=== PATIENT | female | born 1995 | race Caucasian/White ===

== ENCOUNTER 2022-07-28 11:02 | Outpatient (OUT) | payer MEDICAID, SELFPAY ==
[2022-07-28 11:29] LABS: Glucose 1 Hour 142 mg/dL
== END 2022-07-28 11:03 ==
LOC: LAB 11:05
PROVIDERS: PCP Obstetrics & Gynecology; Visit Provider Obstetrics & Gynecology
DX: Z34.90 Encounter for supervision of normal pregnancy, unspecified, unspecified trimester (principal)
CPT/HCPCS: 36415; 82950

== ENCOUNTER 2022-08-06 17:02 | Observation (INO) | payer MEDICAID, SELFPAY ==
[2022-08-06 17:26] VITALS: BP 94/53; PULSE 88
[2022-08-06 17:46] LABS: Bilirubin Urine NEGATIVE (NEGATIVE); Blood Urine NEGATIVE (NEGATIVE); Clarity Urine CLEAR (CLEAR); Color Urine YELLOW (YELLOW); Glucose Urine UA NEGATIVE (NEGATIVE); Ketones Urine NEGATIVE (NEGATIVE); Leukocyte Esterase Urine NEGATIVE (NEGATIVE); Nitrite Urine NEGATIVE (NEGATIVE); Protein Urine NEGATIVE (NEG/TRACE); Specific Gravity Urine 1.025 (1.005-1.025); Urobilinogen Urine 0.2 EU/dL (0.2-1.0); pH Urine 6.5 (5.0-9.0)
[2022-08-06 17:48] LABS: Urine Microscopic Indicated NO
--- NOTE | 2022-08-06 18:15 | PC.NURSE ---
notified of assessment, history, sve, fht and complaints. reviewed ua. dc order recieved.
--- NOTE | 2022-08-06 18:31 | PC.NURSE ---
reviewed dc instructions with pt. pt instructed to push oral hydration and rest this weekend and call or return with concerns.
== END 2022-08-06 18:33 | disposition home or self-care (01) ==
PROVIDERS: Admitting Provider Obstetrics & Gynecology; PCP Obstetrics & Gynecology; Visit Provider Obstetrics & Gynecology
DX: O26.893 Other specified pregnancy related conditions, third trimester (principal); R51.9 Headache, unspecified; R11.0 Nausea; R10.9 Unspecified abdominal pain; Z3A.00 Weeks of gestation of pregnancy not specified
CPT/HCPCS: 59025; 81003; G0378; G0379

== ENCOUNTER 2022-08-10 07:25 | Outpatient (OUT) | payer MEDICAID, SELFPAY ==
[2022-08-10 07:47] LABS: Glucose Fasting 106 mg/dL (74-106)
[2022-08-10 09:29] LABS: Glucose 1 Hour 199 mg/dL
[2022-08-10 10:33] LABS: Glucose 2 Hour 135 mg/dL
[2022-08-10 11:35] LABS: Glucose 3 Hour 125 mg/dL
== END 2022-08-10 07:26 ==
PROVIDERS: PCP Obstetrics & Gynecology; Visit Provider Obstetrics & Gynecology
DX: R73.09 Other abnormal glucose (principal)
CPT/HCPCS: 36415; 82951; 82952

== ENCOUNTER 2022-09-01 07:11 | Outpatient (OUT) | payer MEDICAID, SELFPAY | END 2022-09-01 07:12 | disposition home or self-care (01) | LOC: DE 07:12 | PROVIDERS: PCP Obstetrics & Gynecology; Visit Provider Obstetrics & Gynecology | DX: O24.419 Gestational diabetes mellitus in pregnancy, unspecified control (principal) | CPT/HCPCS: G0108 ==

== ENCOUNTER 2022-09-05 08:25 | Outpatient (OUT) | payer MEDICAID, SELFPAY ==
[2022-09-05 08:53] VITALS: BP 113/65; PULSE 88
[2022-09-05 09:31] LABS: Bilirubin Urine NEGATIVE (NEGATIVE); Blood Urine NEGATIVE (NEGATIVE); Clarity Urine CLEAR (CLEAR); Color Urine YELLOW (YELLOW); Glucose Urine UA NEGATIVE (NEGATIVE); Ketones Urine NEGATIVE (NEGATIVE); Leukocyte Esterase Urine TRACE (NEGATIVE); Nitrite Urine NEGATIVE (NEGATIVE); Protein Urine TRACE mg/dL (NEG/TRACE); Specific Gravity Urine >=1.030 (1.005-1.025); Urobilinogen Urine 0.2 EU/dL (0.2-1.0); pH Urine 6.5 (5.0-9.0)
[2022-09-05 09:32] LABS: Urine Microscopic Indicated YES
[2022-09-05 09:38] LABS: Bacteria Urine NONE SEEN #/HPF (NONE SEEN); Cast Seen? NONE SEEN #/LPF (NONE SEEN); Crystals Seen? None Seen #/HPF (None Seen); Mucus Urine NONE SEEN (NONE SEEN); RBC Urine NONE SEEN #/HPF (0-2); Squamous Epithelial Cell Urine MANY #/LPF (NONE/RARE); Urine Culture Indicated NO; WBC Urine 0-2 #/HPF (NONE SEEN)
== END 2022-09-05 10:58 | disposition home or self-care (01) ==
LOC: FBCO 08:31 → FBC 08:34
PROVIDERS: Visit Provider Obstetrics & Gynecology
DX: O26.893 Other specified pregnancy related conditions, third trimester (principal); O24.419 Gestational diabetes mellitus in pregnancy, unspecified control; Z3A.30 30 weeks gestation of pregnancy; R10.9 Unspecified abdominal pain
CPT/HCPCS: 59025; 81003; 81015

== ENCOUNTER 2022-09-22 08:07 | Outpatient (OUT) | payer MEDICAID, SELFPAY ==
--- NOTE | 2022-09-22 08:09 | US_ITS ---
[address] [address] Patient Name: BRITTNEE SMITH MRN: [id number] date: 1995 Sex: F Assigned Patient Location: [facility] Current Patient Location: Accession/Order Number: [id number] Exam Date: 09/22/2022 08:15 Report Date: 09/22/2022 20:56 At the request of: IVY RUVALCABA Procedure: US OB BPP w non-stress EXAMINATION: US OB BPP w non-stress HISTORY: GESTATIONAL DIABETES Z86.32 COMPARISON: No relevant comparison available. TECHNIQUE: Ultrasound biophysical profile was performed in the radiology department. FINDINGS: BREATHING MOVEMENTS: 2.0 GROSS BODY MOVEMENTS: 2.0 TONE: 2.0 QUALITATIVE AMNIOTIC FLUID VOLUME: 2.0 PRESENTATION: CEPHALIC HEART RATE: 152.5 bpm H.B./min AMNIOTIC FLUID VOLUME: 18.5 cm cm GESTATIONAL AGE: 32 weeks 6 days CONCLUSION: Total biophysical profile score: 8.0 Electronically authenticated by: JENN REYEZ Date: 09/22/2022 20:56
[2022-09-22 08:48] VITALS: BP 128/71; PULSE 92
== END 2022-09-22 09:53 | disposition home or self-care (01) ==
LOC: US 08:07 → FBC 08:08
PROVIDERS: Visit Provider Obstetrics & Gynecology
DX: Z86.32 Personal history of gestational diabetes (principal)
CPT/HCPCS: 59025; 76818

== ENCOUNTER 2022-09-26 19:19 | Outpatient (OUT) | payer MEDICAID, SELFPAY ==
[2022-09-26 19:29] VITALS: BP 122/56; PULSE 96; TEMP 35.6
== END 2022-09-26 19:51 | disposition home or self-care (01) ==
LOC: FBCO 19:23 → FBC 19:28
PROVIDERS: Visit Provider Obstetrics & Gynecology
DX: O26.90 Pregnancy related conditions, unspecified, unspecified trimester (principal)
CPT/HCPCS: 59025

== ENCOUNTER 2022-09-29 09:35 | Outpatient (OUT) | payer MEDICAID, SELFPAY ==
[2022-09-29 09:50] VITALS: BP 80/42; PULSE 85
[2022-09-29 09:51] VITALS: BP 104/54; PULSE 89
--- NOTE | 2022-09-29 10:01 | US_ITS ---
[address] [address] Patient Name: BRITTNEE SMITH MRN: [id number] date: 1995 Sex: F Assigned Patient Location: US Current Patient Location: US Accession/Order Number: [id number] Exam Date: 09/29/2022 10:20 Report Date: 09/29/2022 18:45 At the request of: IVY RUVALCABA Procedure: US OB BPP w non-stress EXAMINATION: US OB BPP w non-stress HISTORY: HX GESTATIONAL DIABETES Z86.32 COMPARISON: Ultrasound OB biophysical 09/22/2022 TECHNIQUE: Ultrasound biophysical profile was performed in the radiology department. BREATHING MOVEMENTS: 2.0 GROSS BODY MOVEMENTS: 2.0 TONE: 2.0 QUALITATIVE AMNIOTIC FLUID VOLUME: 2.0 PRESENTATION: CEPHALIC HEART RATE: 142.1 bpm bpm. AMNIOTIC FLUID VOLUME: 15.1 cm GESTATIONAL AGE: 33 weeks 6 days CONCLUSION: Total biophysical profile score 8.0. Electronically authenticated by: CHRISTIANNE ULLOA Date: 09/29/2022 18:45
== END 2022-09-29 10:47 | disposition home or self-care (01) ==
LOC: US 09:35 → FBC 09:36
PROVIDERS: Visit Provider Obstetrics & Gynecology
DX: Z86.32 Personal history of gestational diabetes (principal)
CPT/HCPCS: 76818

== ENCOUNTER 2022-10-03 19:12 | Outpatient (OUT) | payer MEDICAID, SELFPAY | END 2022-10-03 20:00 | disposition home or self-care (01) | LOC: FBCO 19:13 → FBC 19:22 | PROVIDERS: Visit Provider Obstetrics & Gynecology | DX: Z86.32 Personal history of gestational diabetes (principal) | CPT/HCPCS: 59025 ==

== ENCOUNTER 2022-10-06 08:25 | Outpatient (OUT) | payer MEDICAID, SELFPAY ==
--- NOTE | 2022-10-06 08:27 | US_ITS ---
[address] [address] Patient Name: BRITTNEE SMITH MRN: [id number] date: 1995 Sex: F Assigned Patient Location: [facility] Current Patient Location: Accession/Order Number: [id number] Exam Date: 10/06/2022 08:30 Report Date: 10/06/2022 15:54 At the request of: IVY RUVALCABA Procedure: US OB BPP w non-stress EXAMINATION: US OB BPP w non-stress HISTORY: History of gestational diabetes Z86.32 COMPARISON: Ultrasound biophysical 09/29/2022 TECHNIQUE: Ultrasound biophysical profile was performed in the radiology department. BREATHING MOVEMENTS: 2.0 GROSS BODY MOVEMENTS: 2.0 TONE: 2.0 QUALITATIVE AMNIOTIC FLUID VOLUME: 2.0 PRESENTATION: CEPHALIC HEART RATE: 150.0 bpm bpm. AMNIOTIC FLUID VOLUME: 13.7 cm GESTATIONAL AGE: 34 weeks 6 days CONCLUSION: Total biophysical profile score 8.0. Electronically authenticated by: CHRISTIANNE ULLOA Date: 10/06/2022 15:54
[2022-10-06 09:18] VITALS: BP 105/59; PULSE 72
== END 2022-10-06 10:54 | disposition home or self-care (01) ==
LOC: US 08:26 → FBC 08:36
PROVIDERS: Visit Provider Obstetrics & Gynecology
DX: O24.419 Gestational diabetes mellitus in pregnancy, unspecified control (principal); Z3A.00 Weeks of gestation of pregnancy not specified
CPT/HCPCS: 59025; 76818

== ENCOUNTER 2022-10-10 19:09 | Outpatient (OUT) | payer MEDICAID, SELFPAY ==
[2022-10-10 19:32] VITALS: BP 122/65; PULSE 100; TEMP 35.4
== END 2022-10-10 20:05 | disposition home or self-care (01) ==
LOC: FBCO 19:11 → FBC 19:14
PROVIDERS: Visit Provider Obstetrics & Gynecology
DX: O24.419 Gestational diabetes mellitus in pregnancy, unspecified control (principal); Z3A.00 Weeks of gestation of pregnancy not specified
CPT/HCPCS: 59025

== ENCOUNTER 2022-10-11 13:43 | Outpatient (OUT) | payer MEDICAID, SELFPAY ==
--- NOTE | 2022-10-11 | US_ITS ---
[address] [address] Patient Name: BRITTNEE SMITH MRN: [id number] date: 1995 Sex: F Assigned Patient Location: US Current Patient Location: Accession/Order Number: [id number] Exam Date: 10/11/2022 13:47 Report Date: 10/11/2022 15:46 At the request of: IVY RUVALCABA Procedure: US OB growth EXAMINATION: US OB growth HISTORY: LGA COMPARISON: Ultrasound anatomy 06/27/2022 FINDINGS: Heart Rate: 156.0 bpm Number: 1.0 Position: Cephalic Amniotic Fluid Volume: 15.2 cm Maximum Vertical Pocket: 6.2 cm BIOMETRY: BPD: 9.2 cm cm; 37 weeks 3 days; 93% HC: 33.2 cmcm; 37 weeks 6 days; 74% AC: 33.3 cm cm; 37 weeks 1 days; 92% FL: 7.2 cm cm; 36 weeks 6 days; 78% EFW: 3145.3 grams; 89% FL/AC: 21.7 FL/BPD: 78.3 HC/AC: 1.0 GESTATIONAL AGE: Age by EDC: 35 weeks 4 days GARRETT by EDC: 11/11/2022 Age by US: 37 weeks 2 days GARRETT by US: 10/30/2022 US/US OB growth IMPRESSION: 1. Single live intrauterine with growth detailed above. Electronically authenticated by: CHRISTIANNE ULLOA Date: 10/11/2022 15:46
== END 2022-10-11 13:44 | disposition home or self-care (01) ==
LOC: US 13:44
PROVIDERS: Visit Provider Obstetrics & Gynecology
DX: O36.63X0 Maternal care for excessive fetal growth, third trimester, not applicable or unspecified (principal); Z3A.35 35 weeks gestation of pregnancy
CPT/HCPCS: 76816

== ENCOUNTER 2022-10-13 13:13 | Outpatient (OUT) | payer MEDICAID, SELFPAY ==
--- NOTE | 2022-10-13 13:16 | US_ITS ---
[address] [address] Patient Name: BRITTNEE SMITH MRN: [id number] date: 1995 Sex: F Assigned Patient Location: [facility] Current Patient Location: Accession/Order Number: [id number] Exam Date: 10/13/2022 13:20 Report Date: 10/13/2022 15:34 At the request of: IVY RUVALCABA Procedure: US OB BPP w non-stress EXAMINATION: US OB BPP w non-stress HISTORY: History of gestational diabetes Z86.32 COMPARISON: Ultrasound biophysical 10/06/2022 TECHNIQUE: Ultrasound biophysical profile was performed in the radiology department. BREATHING MOVEMENTS: 2.0 GROSS BODY MOVEMENTS: 2.0 TONE: 2.0 QUALITATIVE AMNIOTIC FLUID VOLUME: 2.0 PRESENTATION: Cephalic HEART RATE: 154.3 bpm bpm. AMNIOTIC FLUID VOLUME: 15.7 cm GESTATIONAL AGE: 35 weeks 6 days CONCLUSION: Total biophysical profile score 8.0. Electronically authenticated by: CHRISTIANNE ULLOA Date: 10/13/2022 15:34
[2022-10-13 13:38] VITALS: BP 130/64; PULSE 103
== END 2022-10-13 13:45 | disposition home or self-care (01) ==
LOC: US 13:14 → FBC 13:14
PROVIDERS: Visit Provider Obstetrics & Gynecology
DX: O24.419 Gestational diabetes mellitus in pregnancy, unspecified control (principal); Z3A.35 35 weeks gestation of pregnancy
CPT/HCPCS: 76818

== ENCOUNTER 2022-10-17 19:03 | Outpatient (OUT) | payer MEDICAID, SELFPAY ==
[2022-10-17 19:16] VITALS: BP 128/59; PULSE 97
== END 2022-10-17 19:49 | disposition home or self-care (01) ==
LOC: FBCO 19:06 → FBC 19:07
PROVIDERS: Visit Provider Obstetrics & Gynecology
DX: O24.419 Gestational diabetes mellitus in pregnancy, unspecified control (principal); Z3A.00 Weeks of gestation of pregnancy not specified
CPT/HCPCS: 59025

== ENCOUNTER 2022-10-20 08:05 | Outpatient (OUT) | payer MEDICAID, SELFPAY ==
--- NOTE | 2022-10-20 08:09 | US_ITS ---
[address] [address] Patient Name: BRITTNEE SMITH MRN: [facility]:[id number] date: 1995 Sex: F Assigned Patient Location: [facility] Current Patient Location: [facility] Accession/Order Number: [id number] Exam Date: 10/20/2022 08:10 Report Date: 10/20/2022 15:14 At the request of: IVY RUVALCABA Procedure: US OB BPP w non-stress EXAMINATION: US OB BPP w non-stress HISTORY: History of gestational diabetes Z86.32 COMPARISON: Ultrasound OB biophysical profile 10/13/2022 TECHNIQUE: Ultrasound biophysical profile was performed in the radiology department. BREATHING MOVEMENTS: 2.0 GROSS BODY MOVEMENTS: 2.0 TONE: 2.0 QUALITATIVE AMNIOTIC FLUID VOLUME: 2.0 PRESENTATION: Cephalic HEART RATE: 156.1 bpm bpm. AMNIOTIC FLUID VOLUME: 10.6 cm GESTATIONAL AGE: 36 weeks 6 days CONCLUSION: Total biophysical profile score 8.0. Electronically authenticated by: CHRISTIANNE ULLOA Date: 10/20/2022 15:14
[2022-10-20 08:32] VITALS: BP 109/54; PULSE 95
== END 2022-10-20 09:06 | disposition home or self-care (01) ==
LOC: US 08:05 → FBC 08:06
PROVIDERS: Visit Provider Obstetrics & Gynecology
DX: O24.419 Gestational diabetes mellitus in pregnancy, unspecified control (principal); Z3A.36 36 weeks gestation of pregnancy
CPT/HCPCS: 76818

== ENCOUNTER 2022-10-21 09:08 | Outpatient (REF) | payer MEDICAID, SELFPAY | END 2022-10-21 09:09 | disposition home or self-care (01) | LOC: LAB 09:08 | PROVIDERS: Visit Provider Obstetrics & Gynecology | DX: Z34.93 Encounter for supervision of normal pregnancy, unspecified, third trimester (principal) | CPT/HCPCS: 87081 ==

== ENCOUNTER 2022-10-24 19:20 | Outpatient (OUT) | payer MEDICAID, SELFPAY ==
[2022-10-24 19:34] VITALS: BP 131/64; PULSE 96
== END 2022-10-24 20:00 | disposition home or self-care (01) ==
LOC: FBCO 19:22 → FBC 19:24
PROVIDERS: Visit Provider Obstetrics & Gynecology
DX: O24.419 Gestational diabetes mellitus in pregnancy, unspecified control (principal); Z3A.00 Weeks of gestation of pregnancy not specified
CPT/HCPCS: 59025

== ENCOUNTER 2022-10-27 08:06 | Outpatient (OUT) | payer MEDICAID, SELFPAY ==
--- NOTE | 2022-10-27 08:22 | US_ITS ---
[address] [address] Patient Name: BRITTNEE SMITH MRN: [id number] date: 1995 Sex: F Assigned Patient Location: [facility] Current Patient Location: Accession/Order Number: [id number] Exam Date: 10/27/2022 08:23 Report Date: 10/27/2022 22:18 At the request of: IVY RUVALCABA Procedure: US OB BPP w non-stress EXAMINATION: US OB BPP w non-stress HISTORY: History of gestational diabetes Z86.32 COMPARISON: Ultrasound OB biophysical 10/20/2022 TECHNIQUE: Ultrasound biophysical profile was performed in the radiology department. BREATHING MOVEMENTS: 2 GROSS BODY MOVEMENTS: 2 TONE: 2 QUALITATIVE AMNIOTIC FLUID VOLUME: 2 PRESENTATION: Cephalic HEART RATE: 157 bpm. AMNIOTIC FLUID VOLUME: 14.4 cm; normal range GESTATIONAL AGE: 37 weeks 6 days CONCLUSION: Total biophysical profile score 8. Electronically authenticated by: CHRISTIANNE ULLOA Date: 10/27/2022 22:18
--- NOTE | 2022-10-27 08:23 | US_ITS ---
[address] [address] Patient Name: BRITTNEE SMITH MRN: [id number] date: 1995 Sex: F Assigned Patient Location: [facility] Current Patient Location: Accession/Order Number: [id number] Exam Date: 10/27/2022 08:23 Report Date: 10/27/2022 22:17 At the request of: IVY RUVALCABA Procedure: US OB growth EXAMINATION: US OB growth HISTORY: Excessive growth affecting third trimester O36.6X0 COMPARISON: Ultrasound OB growth 10/11/2022 FINDINGS: Heart Rate: 157.0 bpm Number: 1.0 Position: CEPHALIC Amniotic Fluid Volume: 14.4 cm Maximum Vertical Pocket: 5.4 cm BIOMETRY: BPD: 9.7 cm cm; 39 weeks 4 days; 97% HC: 33.8 cmcm; 38 weeks 6 days; 54% AC: 36.3 cm cm; 40 weeks 2 days; >97% FL: 7.3 cm cm; 37 weeks 4 days; 45% EFW: 3787.5 grams; 92% FL/AC: 20.2 FL/BPD: 75.9 HC/AC: 0.9 GESTATIONAL AGE: Age by EDC: 37 weeks 6 days GARRETT by EDC: 11/11/2022 Age by US: 39 weeks 1 day GARRETT by US: 11/02/2022 US/US OB growth IMPRESSION: 1. Single live intrauterine with growth detailed above. 2. Abdominal circumference and biparietal diameter are 97th percentile or above. Electronically authenticated by: CHRISTIANNE ULLOA Date: 10/27/2022 22:17
[2022-10-27 08:55] VITALS: BP 128/74; PULSE 94; TEMP 35.8
== END 2022-10-27 09:26 | disposition home or self-care (01) ==
LOC: US 08:06 → FBC 08:07
PROVIDERS: Visit Provider Obstetrics & Gynecology
DX: O36.63X0 Maternal care for excessive fetal growth, third trimester, not applicable or unspecified (principal); Z3A.37 37 weeks gestation of pregnancy
CPT/HCPCS: 76816; 76818

== ENCOUNTER 2022-10-31 19:05 | Outpatient (OUT) | payer MEDICAID, SELFPAY ==
[2022-10-31 19:27] VITALS: TEMP 36.1
[2022-10-31 19:28] VITALS: BP 114/63; PULSE 98
== END 2022-10-31 19:52 | disposition home or self-care (01) ==
LOC: FBCO 19:05 → FBC 19:08
PROVIDERS: Visit Provider Obstetrics & Gynecology
DX: O24.419 Gestational diabetes mellitus in pregnancy, unspecified control (principal)
CPT/HCPCS: 59025

== ENCOUNTER 2022-11-03 23:33 | Inpatient (IN) | payer MEDICAID, SELFPAY ==
[2022-11-04] VITALS (60 sets, daily range): BP systolic 92–158; BP diastolic 55–98; PULSE 68–100; RESP 16–18; TEMP 36.1–37.4
[2022-11-04] MEDS: OXYTOCIN/0.9 % SODIUM CHLORIDE 10 UNITS/500 ML PLAST..BAG 6 UNIT IV (01:00)
[2022-11-04] MEDS: 0.9 % SODIUM CHLORIDE 1,000 ML 125 ML IV ×2 (01:01→08:59)
[2022-11-04 01:21] LABS: Hematocrit 34.2 % (36.0-48.0); Hemoglobin 11.1 g/dL (12.0-16.0); Mean Corpuscular HGB Conc 32.5 g/dL (29.9-35.2); Mean Corpuscular Hemoglobin 26.9 pg (26.7-34.0); Mean Corpuscular Volume 82.8 fL (81.0-99.0); Mean Platelet Volume 11.9 fL (9.5-13.5); Platelet Count 198 10^3/uL (150-450); Red Blood Count 4.13 10^6/uL (4.20-5.40); Red Cell Distribution Width 14.6 % (11.0-15.0); White Blood Count 14.2 10^3/uL (4.0-11.0)
[2022-11-04 01:36] LABS: Amphetamine Screen Urine NEGATIVE (NEGATIVE); Barbiturates Screen Urine NEGATIVE (NEGATIVE); Benzodiazepines Screen Urine NEGATIVE (NEGATIVE); Buprenorphine Screen Urine NEGATIVE (NEGATIVE); Cannabinoid Screen Urine NEGATIVE (NEGATIVE); Cocaine Screen Urine NEGATIVE (NEGATIVE); Methadone Screen Urine NEGATIVE (NEGATIVE); Methamphetamines Screen Urine NEGATIVE (NEGATIVE); Opiate Screen Urine NEGATIVE (NEGATIVE); Oxycodone Screen Urine NEGATIVE (NEGATIVE); Phencyclidine Screen Urine NEGATIVE (NEGATIVE); Tricyclic Antidepressant Urine NEGATIVE (NEGATIVE)
[2022-11-04] MEDS: LEVOTHYROXINE SODIUM 175 MCG TABLET PO (07:40)
[2022-11-04] MEDS: LEVOTHYROXINE SODIUM 100 MCG TABLET PO (07:40)
[2022-11-04] MEDS: ROPIVACAINE HCL/PF 400 MG/200 ML PREMIX 6 MG EPIDURAL (12:09)
[2022-11-04] MEDS: OXYTOCIN/0.9 % SODIUM CHLORIDE 10 UNITS/500 ML PLAST..BAG 60 UNIT IV (12:52)
[2022-11-04] MEDS: FENTANYL CITRATE/PF 100 MCG/2 ML VIAL EPIDURAL (12:54)
--- NOTE | 2022-11-04 14:39 | PM.OBPRCVD ---
Procedure Intrapartal events: None Induction method: per pitocin protocol Delivery augmentation: rupture of membranes and pitocin Delivery monitor: external FHT and external uterine Route of delivery: Laceration description: periurethral - 1st degree Delivery repair: Vicryl Estimated blood loss (mL): 200 Anesthesia type: Epidural Disposition: floor Delivery date: 11/04/22 Gender: female presentation: vertex Placental delivery description: Spontaneous cord description: 3 Vessels
[2022-11-04] MEDS: IBUPROFEN 600 MG TABLET PO (17:21)
[2022-11-05] VITALS (7 sets, daily range): BP systolic 117–127; BP diastolic 69–81; PULSE 76–86; RESP 16–18; TEMP 36.6–37
[2022-11-05] MEDS: IBUPROFEN 600 MG TABLET PO ×4 (01:09→21:31)
[2022-11-05 06:50] LABS: Basophils Absolute Auto 0.1 10^3/uL (0.0-0.1); Basophils Percent Auto 0.4 % (0.2-2.0); Eosinophils Absolute Auto 0.2 10^3/uL (0.0-0.7); Eosinophils Percent Auto 1.1 % (0.9-7.0); Hemoglobin 9.3 g/dL (12.0-16.0); Immature Granulocytes Abs Auto 0.14 10^3/uL (0.00-0.03); Lymphocytes Absolute Auto 3.1 10^3/uL (1.2-3.8); Lymphocytes Percent Auto 22.6 % (20.5-60.0); Mean Corpuscular HGB Conc 32.1 g/dL (29.9-35.2); Mean Corpuscular Volume 84.1 fL (81.0-99.0); Mean Platelet Volume 11.1 fL (9.5-13.5); Monocytes Absolute Auto 0.8 10^3/uL (0.3-0.8); Monocytes Percent Auto 5.8 % (1.7-12.0); Neutrophils Absolute Auto 9.3 10^3/uL (1.4-6.5); Neutrophils Percent Auto 69.1 % (43.0-75.0); Platelet Count 171 10^3/uL (150-450); Red Blood Count 3.45 10^6/uL (4.20-5.40); Red Cell Distribution Width 14.7 % (11.0-15.0); White Blood Count 13.5 10^3/uL (4.0-11.0)
[2022-11-05] MEDS: LEVOTHYROXINE SODIUM 175 MCG TABLET PO (07:14)
[2022-11-05] MEDS: LEVOTHYROXINE SODIUM 100 MCG TABLET PO (07:14)
[2022-11-05] MEDS: DOCUSATE SODIUM 100 MG CAPSULE PO ×2 (08:14→21:32)
--- NOTE | 2022-11-05 09:27 | P.OBPN_ITS ---
OB - PN: Subj Subjective Patient comments: no complaints, pain well controlled and flatus present feeding status: breast and bottle feeding Exam Constitutional Vital Signs, click to edit/add: Last Vital Signs Temp 97.8 F 11/05/22 01:26 Pulse 76 11/05/22 08:16 Resp 18 11/05/22 08:15 BP 127/73 11/05/22 08:16 Documenting provider has reviewed patient's vital signs: yes Common normals: no apparent distress and oriented x3 General appearance: cooperative Orientation/consciousness: Yes awake, Yes oriented to person, Yes oriented to place and Yes oriented to time HENMT Common normals: normocephalic Neck & C-Spine Common normals: full ROM Lymph Lymphatic: no lymphadenopathy noted Chest Common normals: inspection of chest normal Respiratory Common normals: normal respiratory effort, no retractions and clear to au scultation bilaterally Cardio Common normals: regular rate, regular rhythm and no murmurs Rate: regular rate Rhythm: regular rhythm GI Common normals: Normal to inspection, nondistended, normoactive bowel sounds present Auscultation: normoactive bowel sounds Palpation: soft Common normals: no CVA tenderness Back & Pelvis Common normals: no CVA tenderness Extremity Common normals: normal to inspection, full ROM and no calf tenderness Neuro Common normals: oriented x3 Sensorium/orientation: awake, alert, oriented to person, oriented to place and oriented to time Psych Common normals: mental status grossly normal, cooperative and affect normal Appearance: grossly normal and well kempt Attitude: calm Activity/motor behavior: appropriate eye contact Results Labs Labs: Short CBC 11/05/22 Range/Units 06:42 WBC 13.5 H (4.0-11.0) 10^3/uL Hgb 9.3 L (12.0-16.0) g/dL Hct 29.0 L (36.0-48.0) % Plt Count 171 (150-450) 10^3/uL OB - PN: A/P Plan - Vaginal Delivery day: 1 Plan: routine care Time Spent with Patient Time: Total time spent is greater than 50% in coordination of care (as documented) at patient's floor/unit and/or counseling patient: Total time spent with greater than 50% in coordination of care (as documented) at patient's floor/unit and/or counseling patient: less than 15 minutes
--- NOTE | 2022-11-05 19:29 | W.PC.ACHO ---
Registration Status: ADM IN Primary Language: Moldovan Preferred Language: Moldovan Report given to Zara Brink RN. Care relinquished. Active Medications Generic Name Dose Route Start Last Admin Trade Name Vadim PRN Reason Stop Dose Admin Acetaminophen 650 mg 11/04/22 14:28 Acetaminophen 325 Mg Tablet PO Q6H PRN Mild Pain Al Hydroxide/Mg Hydroxide 2,400 mg 11/04/22 14:28 Magnesium Hydroxide 2,400 Mg/10 Ml Oral.Susp PO Q6H PRN Dyspepsia Benzocaine/Menthol 1 applic 11/04/22 14:28 Benzocaine/Menthol 85 Gram [place] Bottle TOPICAL Q2H PRN Pain Diphtheria/Pertussis/Tetanus Vacc 0.5 ml 11/06/22 09:00 Adacel Diph,Pertuss(Acell),Tet Vac/Pf 0.5 Ml Adult Syringe IM 11/06/22 09:01 .ONCE ONE Docusate Sodium 100 mg 11/05/22 09:00 11/05/22 08:14 Docusate Sodium 100 Mg Capsule PO 100 mg BID ALDEN Administration Sodium Chloride 1,000 mls @ 125 mls/hr 11/04/22 00:15 11/04/22 08:59 Sodium Chloride 0.9% 1,000 Ml IV 125 mls/hr .Q8H ALDEN Administration Ibuprofen 600 mg 11/04/22 14:28 11/05/22 15:41 Ibuprofen 600 Mg Tablet PO 600 mg Q6H PRN Administration Moderate Pain Levothyroxine Sodium 175 mcg 11/04/22 07:30 11/05/22 07:14 Levothyroxine Sodium 175 Mcg Tablet PO 175 mcg ACB ALDEN Administration Levothyroxine Sodium 100 mcg 11/04/22 07:30 11/05/22 07:14 Levothyroxine Sodium 100 Mcg Tablet PO 100 mcg ACB ALDEN Administration Measles/Mumps/Rubella Vaccine Live 0.5 ml 11/06/22 09:00 Measles,Mumps,Rubella Vacc/Pf 0.5 Ml Vial SQ 11/06/22 09:01 .ONCE ONE Omeprazole 20 mg 11/04/22 01:00 Omeprazole 20 Mg Capsule.Dr CARABALLO ONCE ALDEN Ondansetron HCl 4 mg 11/04/22 00:13 Ondansetron Pf 4 Mg/2 Ml Vial IV Q6H PRN Nausea And Vomiting Ondansetron HCl 4 mg 11/04/22 00:13 Ondansetron 4 Mg Rapdis Tablet SL Q6H PRN Nausea And Vomiting Senna 17.2 mg 11/04/22 20:00 Sennosides 8.6 Mg Tablet PO QHS PRN Constipation Simethicone 80 mg 11/04/22 14:28 Simethicone 80 Mg Tab.Chew PO QID PRN Abdominal Distention Temazepam 15 mg 11/04/22 14:28 Temazepam 15 Mg Capsule PO QHS PRN Sleep Witch [place]kay/Glycerin 1 pad 11/04/22 14:28 Glycerin/Witch [place] Pads TOPICAL Q2H PRN Pain Cardiology Heart Sounds Strong,Regular Heart Sounds Strong,Regular Renal Bladder Pattern Continent Bladder Pattern Continent Bladder Pattern Continent
[2022-11-06] MEDS: LEVOTHYROXINE SODIUM 175 MCG TABLET PO (06:34)
[2022-11-06] MEDS: LEVOTHYROXINE SODIUM 100 MCG TABLET PO (06:34)
[2022-11-06 08:59] VITALS: BP 119/65; PULSE 78
[2022-11-06 10:26] VITALS: PULSE 78; RESP 16; TEMP 36.7
[2022-11-06] MEDS: IBUPROFEN 600 MG TABLET PO (12:06)
--- NOTE | 2022-11-06 12:13 | PM.OBPN ---
OB - PN: Subj Subjective Patient comments: no complaints and pain well controlled Harmony status: doing well Exam Constitutional Vital Signs, click to edit/add: Last Vital Signs Temp 98.1 F 11/06/22 10:26 Pulse 78 11/06/22 10:26 Resp 16 11/06/22 10:26 BP 119/65 11/06/22 08:59 O2 Del Method Room Air 11/06/22 10:26 Documenting provider has reviewed patient's vital signs: yes Common normals: no apparent distress Respiratory Common normals: normal respiratory effort and clear to auscultation bilaterally Cardio Common normals: regular rate and regular rhythm GI Common normals: Normal to inspection, nondistended, normoactive bowel sounds present Extremity Common normals: no clubbing, cyanosis or edema and no calf tenderness OB - PN: A/P Plan - Vaginal Delivery day: 2 Plan: routine care, discharge home and follow up 6 weeks Time Spent with Patient Time: Total time spent is greater than 50% in coordination of care (as documented) at patient's floor/unit and/or counseling patient: Total time spent with greater than 50% in coordination of care (as documented) at patient's floor/unit and/or counseling patient: less than 15 minutes
--- NOTE | 2022-11-06 12:56 | PC.NURSE ---
Previous asessment timed as 1046 was actually done at 0900.
== END 2022-11-06 13:55 | disposition home or self-care (01) | DRG 560 ==
PROVIDERS: Admitting Provider Obstetrics & Gynecology; Visit Provider Obstetrics & Gynecology
DX: O24.425 Gestational diabetes mellitus in childbirth, controlled by oral hypoglycemic drugs (principal); O70.0 First degree perineal laceration during delivery; Z3A.39 39 weeks gestation of pregnancy; Z37.0 Single live birth; O99.284 Endocrine, nutritional and metabolic diseases complicating childbirth; E03.9 Hypothyroidism, unspecified; Z87.440 Personal history of urinary (tract) infections
CPT/HCPCS: 36415; 51702; 59025; 59050; 59410; 80307; 85025; 85027; 86850; 86900; 86901; 96374; 96376

== ENCOUNTER 2022-11-09 08:27 | Outpatient (OUT) | payer MEDICAID, SELFPAY | END 2022-11-09 08:28 | disposition home or self-care (01) | LOC: FBCO 08:28 | PROVIDERS: Visit Provider Obstetrics & Gynecology | DX: Z39.2 Encounter for routine postpartum follow-up (principal) ==

== ENCOUNTER 2023-02-01 09:09 | Outpatient (OUT) | payer MEDICAID, SELFPAY ==
--- NOTE | 2023-02-01 09:10 | US_ITS ---
The [address] [address] Patient Name: BRITTNEE SMITH MRN: [id number] date: 1995 Sex: F Assigned Patient Location: US Current Patient Location: US Accession/Order Number: [id number] Exam Date: 02/01/2023 09:11 Report Date: 02/01/2023 10:00 At the request of: IVY RUVALCABA Procedure: US pelvis transvaginal EXAM: Pelvic ultrasound HISTORY: . IUD PLACEMENT . COMPARISON: None. TECHNIQUE: Transvaginal scanning was performed FINDINGS: Scanning of the pelvis demonstrates the uterus to be retroverted and measures 9.2 x 4.7 x 6.5 cm. Endometrial complex measures 14 mm in its maximal AP dimension. There is an IUD noted within the endometrial cavity of the uterus which appears in adequate position. Right ovary measures 3.5 x 2.2 x 3.6 cm. Color-flow is noted. Follicles are noted. No masses are noted. Left ovary measures 4.3 x 2.6 x 3.6 cm. Color-flow is noted. There is a 1.6 x 2 cm simple cyst involving the left ovary. No fluid is noted in the cul-de-sac. US/US pelvis transvaginal IMPRESSION: 1. Endometrial complex is prominent measuring 14 mm. Findings could be due to the patient's menstrual cycle or endometrial hyperplasia. 2. IUD is in place. 3. Normal right ovary. 4. 2 cm simple cyst involving the left ovary. Electronically authenticated by: JENN ALLEN Date: 02/01/2023 10:00
== END 2023-02-01 09:10 | disposition home or self-care (01) ==
LOC: US 09:09
PROVIDERS: Visit Provider Obstetrics & Gynecology
DX: N83.292 Other ovarian cyst, left side (principal); Z30.431 Encounter for routine checking of intrauterine contraceptive device
CPT/HCPCS: 76830

== ENCOUNTER 2023-04-07 14:55 | Outpatient (OUT) | payer MEDICAID, SELFPAY ==
--- OUTSIDE RECORDS SUMMARY | 2023-04-07 15:03 | XMS_ITS | CCD ---
Author Name Unknown Address [facility] [address] [place] [id number] Organization [facility] Care Team Providers Care Manager Financial Planning Name Role Phone Scar Bellamy Primary Care Provider PEG ., DR HAYNES Consulting Unavailable PEG ., DR HAYNES Attending Unavailable PEG ., DR HAYNES Admitting Unavailable ZIEBER, DR CHRISTIANNE Amador Consulting Unavailable REQUEST, DR ESCAMILLA LISTED Consulting Unavaila ble PEG ., DR HAYNES Consulting Unavailable PEG ., DR HAYNES Attending Unavailable PEG ., DR HAYNES Admitting Unavailable PEG ., DR HAYNES Consulting Unavailable PEG ., DR HAYNES Attending Unavailable PEG ., DR HAYNES Admitting Unavailable Addie Hernandez Unavailable JUICE Swanson Attending Provider Linda Swanson Unavailable Linda Swanson Attending Unavailable Linda Swanson Admitting Unavailable IVY RUVALCABA Attending Unavailable Allergies Allergy Classification Reported Allergen(s) Allergy Type Date of Onset Reaction(s) Facility Sulfonamides (antibiotic) (1 source) Sulfonamides (Antibiotic) Drug Allergy 9 Rash [facility] (5 sources) Erythromycin / sulfiSOXAZOLE Drug Allergy 5 rash [facility] (1 source) Sulfonamides (Antibiotic) Drug allergy (disorder) 5 [facility] (4 sources) Substance with sulfonamide structure and antibacterial mechanism of action (substance) Drug allergy rash [employer] Other Medications Current Medications Medication Drug Class(es) Dates Sig (Normalized) Sig (Original) amoxicillin 875 mg / clavulanate 125 mg oral tablet (1 source) Penicillin-class Antibacterial Start: 08-15-2022 take 1 tablet by mouth every twelve hours Amoxicillin-Pot Clavulanate 875-125 MG 1 tablet Orally every 12 hrs for 10 day(s) Jul, Active ciprofloxacin 0.003 mg/mg ophthalmic ointment (2 sources) Quinolone Antimicrobial Start: 01-30-2023 Ciloxan 0.3 % 1 application into the lower eyelid of affected eye left eye Twice a day for 7 days Jan, Active fluticasone propionate 0.05 mg/actuat metered dose nasal spray (1 source) Corticosteroid Start: 08-15-2022 take 2 spray(s) nasal route once daily Fluticasone Propionate 50 MCG/ACT 2 sprays Nasally Once a day for 14 day(s) Jul, Active Magnesium Oxide (1 source) Magnesium Oxide 400 (240 Mg) MG TAKE 1 TABLET BY MOUTH ONCE DAILY NEEDED FOR 30 DAYS Oral for 30 Days Active ondansetron 4 mg disintegrating oral tablet (1 source) Serotonin-3 Receptor Antagonist Ondansetron 4 MG Oral for 8 Days Active Adult Gummy/DHA/FA 0.4-25 MG (1 source) Adult Gummy/DHA/FA 0.4-25 MG CHEW AND SWALLOW 1 BY MOUTH ONCE DAILY FOR 30 DAYS Oral for 30 Days Active Completed/Discontinued Medications Medication Drug Class(es) Dates Sig (Normalized) Sig (Original) levothyroxine sodium 0.125 mg oral tablet (5 sources) l-Thyroxine Start: 07-03-2018 take 2 tablets by mouth once daily SYNTHROID 125 mcg tablet Take 2 tablets by mouth once daily. 60 tablet 11 07/03/2018 Active take 1 tablet by sterling once daily in the morning Synthroid 300 MCG 1 tablet in the mornin g on an empty stomach Orally Once a day for 30 days Active Synthroid 200 MC G Oral for 30 Days Active Comment on above: Take 2 tablets by mo [facility] once daily. Pneumatic Walking Boot (3 sources) Start: 12-13-2022 Pneumatic Walking Boot Nov, Not-Taking Start: 12-13-2022 Pneumatic Walk ing Boot Nov, Active Problems Problem Classification Problem Date Documented Da te Episodic/Chronic Inflammation; infection of eye (except that caused by tuberculosis or sexually transmitteddisease) (1 source) Hordeolum externum left upper eyelid Episodic Other injuries and conditions due to external causes (1 source) Injury, unspecified, initial encounter Episodic Other and delivery including normal (4 sources) Encounter for supervision of normal , unspecified, second trimester; Translations: [ENC SUP NORMAL PREG UNS SECOND TRI] Onset: 06-27-2022 Episodic Other screening for suspected conditions (not mental disorders or infectious disease) (4 sources) Encounter for screening for malignant neoplasm of cervix; Translations: [ENC SCREENING MALIG NEOPLASM CERV] Onset: 07-26-2022 Episodic Other upper respiratory infections (1 source) Acute sinusitis, unspecified Episodic Residual codes; unclassified (1 source) 20 weeks gestation of ; Translations: [20 WEEKS GESTATION OF ] Onset: 06-30-2022 Episodic Sprains and strains (1 source) Sprain of unspecified ligament of left ankle, initial encounter Episodic Unclassified (1 source) Injury, unspecified, initial encounter; Translations: [Injury, unspecified, initial encounter] Onset: 12-13-2022 Results Test Name Value Interpretation Reference Range Facility XR ankle LT min 3V*on 2022 XR ankle LT min 3V* [facility] [employer] Other XR ankle LT min 3V* [facility] [employer] Other XR ankle LT min 3V* [address] [place] [address] [employer] Other XR ankle LT min 3V* [place] [address] [employer] Other XR ankle LT min 3V* XRay Report [facility] [employer] Other XR ankle LT min 3V* Signed [employer] Other XR ankle LT min 3V* Patient: Víctor Smith MR#: [id number] [place] [employer] Other XR ankle LT min 3V* 11 [employer] Other XR ankle LT min 3V* : 1995 Acct:[id number] [employer] Other XR ankle LT min 3V* Age/Sex: 27 / F ADM Date: 12/13/22 [employer] Other XR ankle LT min 3V* Loc: [facility]CLY Room: Type: [facility] [employer] Other XR ankle LT min 3V* Attending Dr: Linda Swanson APRN [employer] Other XR ankle LT min 3V* Copies to: Linda Swanson APRN [employer] Other XR ankle LT min 3V* Ordering Provider: Linda Swanson APRN [employer] Other XR ankle LT min 3V* Date of Service: 12/13/22 [employer] Other XR ankle LT min 3V* XR/XR ankle LT min 3V*: T14.90XA [employer] Other XR ankle LT min 3V* LEFT ANKLE - 3 views [employer] Other XR ankle LT min 3V* CLINICAL DATA: Patient fell down stairs injuring left ankle today. Generalized pain and swelling. [employer] Other XR ankle LT min 3V* COMPARISON: None [employer] Other XR ankle LT min 3V* AP, lateral and oblique views were obtained. There is no evidence of fracture or dislocation. The [employer] Other XR ankle LT min 3V* talar dome is intact . A tiny plantar calcaneal spur is present. There is mild diffuse soft tissue [employer] Other XR ankle LT min 3V* swelling, greater anteriorly. [employer] Other XR ankle LT min 3V* XR/XR ankle LT min 3V* [employer] Other XR ankle LT min 3V* IMPRESSION: [facility] [employer] Other XR ankle LT min 3V* NO ACUTE BONY INJURY. [employer] Other XR ankle LT min 3V* Impression dictated by: Brandy Shields M.D.12/13/2022 9:49 AM [employer] Other XR ankle LT min 3V* Dictation Location: [place] [address] [employer] Other XR ankle LT min 3V* Transcribed By: PWS 12/13/22 0949 [employer] Other XR ankle LT min 3V* Dictated By: Brandy Shields MD 12/13/22 0947 [employer] Other XR ankle LT min 3V* Signed By: [employer] Other XR ankle LT min 3V* 12/13/22 0949 No rt [employer] Other XR ankle LT min 3V* [facility] [place] [address] [place] [address] XRay Report Signed Patient: Brittnee Smith MR#: [id number] 11 : 1995 Acct:[id number] Age/Sex: 27 / F ADM Date: 12/13/22 Loc: [facility] Room: Type: [facility] Attending Dr: Linda Swanson APRN Copies to: Linda Swanson APRN Ordering Provider: Linda Swanson APRN Date of Service: 12/13/22 XR/XR ankle LT min 3V*: T14.90XA LEFT ANKLE - 3 views CLINICAL DATA: Patient fell down stairs injuring left ankle today. Generalized pain and swelling. COMPARISON: None AP, lateral and oblique views were obtained. There is no evidence of fracture or dislocation. The talar dome is intact. A tiny plantar calcaneal spur is present. There is mild diffuse soft tissue swelling, greater anteriorly. XR/XR ankle LT min 3V* IMPRESSION: NO ACUTE BONY INJURY. Impression dictated by: Brandy Shields M.D.12/13/2022 9:49 AM Dictation Location: [place] [address] Transcribed By: [facility] 12/13/22948 Dictated By: Brandy Shields MD 12/13/22946 Signed By: 12/13/22948 [facility] AFP MATERNAL FOR SPINA BIFID Aon 07-01-2022 AFP MoM 0.73 Normal [facility] Comment on above: Result Comment: This is a corrected report. The previously reported result was: AFP MoM See interpretation. 06/29/2022 Performed By: #### A FPMAT #### [facility] [address] [place] [address] Dr. Cathleen Godwin AFP Value 35.4 ng/mL Normal [facility] Comment on above: Performed By: #### A FPMAT #### [facility] [address] [place] [address] Dr. Cathleen Godwin AFP, Serum for Spina Bifida Comment Normal [facility] Comment on above: Result Comment: The MOM and risk factors of this report have been modified based on new information supplied to us by the client or their designated volunteer patient representative. The Weight was changed from Not provided. to 222. This is a corrected report. The previously reported result was: Results Report 06/29/2022 Performed By: #### A FPMAT #### [facility] [address] [place] [address] Dr. Cathleen Godwin Comment Comment Normal [facility] Comment on above: Result Comment: Bruna Hollingsworth, Ph.D., [employer] Director . References: Available Upon Request. . Multiples Of Median Cutoffs For AFP Elevations Wolfe 2.5 Black 2.8 IDD 2.0 Twins 4.5 Abbreviation Definitions IDD - Insulin Dep Diabetes OSBR - Open Spina Bifida Risk . For further inquiries contact [employer] at [phone]. . This test was developed and its performance characteristics determined by [employer]. It has not been cleared or approved by the Food and Drug Administration. Performed By: #### A FPMAT #### [facility] [address] [place] [address] Dr. Cathleen Godwin Gest Age Collection Date 20.4 weeks Normal [facility] Comment on above: Performed By: #### A FPMAT #### [facility] [address] [address] [address] Cathleen Godwin Gestat, Age Based on Ultrasound Normal [facility] Comment on above: Result Comment: 20.4 on 06/27/2022 Recalculations are not recommended when gestational dating by LMP and ultrasound are within 10 days. Performed By: #### A FPMAT #### [facility] [address] [address] [address] Cathleen Godwin Insulin Dep Diabetes No Normal [facility] Comment on above: Performed By: #### A FPMAT #### [facility] [address] [address] [address] Cathleen Godwin Interpretation Comment Normal [facility] Comment on above: Result Comment: Inte rpretation: Screen Negative . This result is screen negative for OSB. The AFP MoM calculated is based on the gestational age provided. MS-AFP can identify up to 80% of open neural tube defects. Closed neural tube defects and some open defects may not be detected by this test. This test does not screen for Down Syndrome or Trisomy 18. If screening for Down Syndrome or Trisomy 18 is desired, contact [employer] [facility] to discuss available options. The [employer] recommends amniocentesis be offered to women age 35 and older. This is a corrected report. The previously reported result(s) were: Test Result Date First Reported Updates reported on: 07/01/2022 11:46 AM AFP MOM VALUE 06/29/2022 11:00 PM See interpretation. INTERP 06/29/2022 11:00 PM Interpretation: An interpretation CANNOT be provided for this patient because necessary patient information was not provided (one or more of: gestational age, weight, or patient age). Please call us with new clinical information. OSBR RISK 1 IN 06/29/2022 11:00 PM See interpretation. TEST RESULTS: SCREEN 06/29/2022 11:00 PM See interpretation. This is a corrected report. The previously reported result was: Interpretation 06/29/2022 Interpretation: An interpretation CANNOT be provided for this patient because necessary patient information was not provided (one or more of: gestational age, weight, or patient age). Please call us with new clinical information. Performed By: #### A FPMAT #### [facility] [address] [place] [address] Dr. Cathleen Godwin Maternal Age at GARRETT 27.[address] [facility] Comment on above: Performed By: #### A FPMAT #### [facility] [address] [place] [address] Dr. Cathleen Godwin Multiple Gestation No Normal [facility] Comment on above: Performed By: #### A FPMAT #### [facility] [address] [place] [address] Dr. Cathleen Godwin OSBR Risk 1 [place] [address] Normal [facility] Comment on above: Result Comment: This is a corrected report. The previously reported result was: OSBR Risk 1 IN See interpretation. 06/29/2022 Performed By: #### A FPMAT #### [facility] [address] [place] [address] Dr. Cathleen Godwin PDF . Normal [facility] Comment on above: Performed By: #### A FPMAT #### [facility] [address] [place] [address] Dr. Cathleen Godwin Race Normal [facility] Comment on above: Performed By: #### A FPMAT #### [facility] [address] [place] [address] Dr. Cathleen Godwin Test Results: Negative Normal [facility] Comment on above: Result Comment: This is a corrected report. The previously reported result was: Test Results: See interpretation. 06/29/2022 Performed By: #### A FPMAT #### [facility] [address] [place] [address] Dr. Cathleen Godwin HEP B SURFACE ANTIGEN SCREEN on 06-28-2022 HBsAg Screen Negative Normal Negative [facility] Comment on above: Performed By: #### H BSANS #### [facility] [address] [place] [address] [address] Cathleen Godwin HEPATITIS C VIRUS AB W/ REFL EX QUANTon 06-28-2022 HCV AB Non-Reactive Normal Non Reactive [facility] Comment on above: Performed By: #### H CVPCRR #### [facility] [address] [place] [address] Dr. Cathleen Godwin Interpretation: Comment Normal [facility] Comment on above: Result Comment: Not infected with HCV unless early or acute infection is suspected (which may be delayed in an immunocompromised individual), or other evidence exists to indicate HCV infection. Performed By: #### H CVPCRR #### [facility] [address] [place] [address] Dr. Cathleen Godwin HIV 1 AND 2 WITH REFLEXon HIV Screen 4th Generation wRfx Non-Reactive Normal Non Reactive [facility] Comment on above: Result Comment: HIV Negative HIV-1/HIV-2 antibodies and HIV-1 p24 antigen were NOT detected. There is no laboratory evidence of HIV infection. Performed By: #### H IV12 #### [facility] [address] [place] [address] Dr. Cathleen Godwin RPR QUANTon 06-28-2022 Rapid Plasma Reagin, Quant Non-Reactive Normal NonRea<1:1 [facility] Comment on above: Result Comment: Plea se Note: This test does not meet current guidelines for screening and diagnosis of syphilis. This test is intended for following treatment response in patients being treated for syphilis infection. To screen for syphilis infection, a reflex cascade that includes both RPR and a treponema-specific assay should be utilized, such as Treponema pallidum (Syphilis) Screening [place] (090296) or Rapid Plasma Reagin (RPR) Test With Reflex to Quantitative RPR and Confirmatory Treponema pallidum Antibodies (874378). Performed By: #### R PRQ #### [facility] [address] [place] [address] Dr. Cathleen Godwin RUBELLA AB IGGon 06-28-2022 Rubella Antibodies, IgG 1.39 index Normal Immune >0.99 [facility] Comment on above: Result Comment: Non- immune <0.90 Equivocal 0.90 - 0.99 Immune >0.99 Performed By: #### R UBIGG ####[facility] [address] [place] [id number] Cathleen Godwin CBC AUTO DIFFon 06-27-2022 BASO # 0.0 103/ul Normal 0.0-0.1 [facility] Comment on above: Performed By: #### C BC #### [facility] [address] [place] [address] Dr. Cathleen Godwin Basophils/100 WBC (Bld) 0.3 % Normal 0.2-2.0 [facility] Comment on above: Performed By: #### C BC #### [facility] [address] [place] [address] Dr. Cathleen Godwin EO # 0.2 103/ul Normal 0.0-0.7 [facility] Comment on above: Performed By: #### C BC #### [facility] [address] [place] [address] Dr. Cathleen Godwin Eosinophils/100 WBC (Bld) 1.3 % Normal 0.9-7.0 [facility] Comment on above: Performed By: #### C BC #### [facility] [address] [place] [address] Dr. Cathleen Godwin Erythrocyte distribution width (RBC) [Ratio] 13.2 % Normal 11.0-15.0 [facility] Comment on above: Performed By: #### C BC #### [facility] [address] [place] [address] Dr. Cathleen Godwin Hematocrit (Bld) [Volume fraction] 32.9 % Critically low 36.0-48.0 [facility] Comment on above: Performed By: #### C BC #### [facility] [address] [place] [address] Dr. Cathleen Godwin Hemoglobin (Bld) [Mass/Vol] 11.3 g/dL Critically low 12.0-16.0 [facility] Comment on above: Performed By: #### C BC #### [facility] [address] [place] [address] Dr. Cathleen Godwin IG # 0.18 10e3/ul Critically high 0.00-0.03 [facility] Comment on above: Performed By: #### C BC #### [facility] [address] [place] [address] Dr. Cathleen Godwin IG % 1.6 % Critically high 0.0-0.5 [facility] Comment on above: Performed By: #### C BC #### [facility] [address] [place] [address] Dr. Cathleen Godwin LYMPH # 2.6 103/ul Normal 1.2-3.8 [facility] Comment on above: Performed By: #### C BC #### [facility] [address] [place] [address] Dr. Cathleen Godwin Lymphocytes/100 WBC (Bld) 22.5 % Normal 20.5-60.0 [facility] Comment on above: Performed By: #### C BC #### [facility] [address] [place] [address] Dr. Cathleen Godwin MANUAL DIFF REQ NO Normal [facility] Comment on above: Performed By: #### C BC #### [facility] [address] [place] [address] Dr. Cathleen Godwni MCH (RBC) [Entitic mass] 29.4 pg Normal 26.7-34.0 [facility] Comment on above: Performed By: #### C BC #### [facility] [address] [place] [address] Dr. Cathleen Godwin MCHC (RBC) [Mass/Vol] 34.3 g/dL Normal 29.9-35.2 [facility] Comment on above: Performed By: #### C BC #### [facility] [address] [place] [address] Dr. Cathleen Godwin MCV (RBC) [Entitic vol] 85.5 fL Normal 81.0-99.0 [facility] Comment on above: Performed By: #### C BC #### [facility] [address] [place] [address] Dr. Cathleen Godwin MONO # 0.5 103/ul Normal 0.3-0.8 [facility] Comment on above: Performed By: #### C BC #### [facility] [address] [address] [address] Cathleen Godwin Monocytes/100 WBC (Bld) 4.5 % Normal 1.7-12.0 [facility] Comment on above: Performed By: #### C BC #### [facility] [address] [address] [address] Cathleen Godwin NEUT # 8.1 103/ul Critically high 1.4-6.5 [facility] Comment on above: Performed By: #### C BC #### [facility] [address] [address] [address] Cathleen Godwin Neutrophils/100 WBC (Bld) 69.8 % Normal 43.0-75.0 [facility] Comment on above: Performed By: #### C BC #### [facility] [address] [place] [address] Dr. Cathleen Godwin Platelet mean volume (Bld) [Entitic vol] 10.8 fL Normal 9.5-13.5 [facility] Comment on above: Performed By: #### C BC #### [facility] [address] [place] [address] Dr. Cathleen Godwin PLT 223 103/ul Normal 150-450 [facility] Comment on above: Performed By: #### C BC #### [facility] [address] [place] [address] Dr. Cathleen Godwin RBC 3.85 106/ul Critically low 4.20-5.40 [facility] Comment on above: Performed By: #### C BC #### [facility] [address] [place] [address] Dr. Cathleen Godwin WBC 11.5 103/ul Critically high 4.0-11.0 [facility] Comment on above: Performed By: #### C BC #### [facility] [address] [place] [address] Dr. Cathleen Godwin CULTURE URINEon 06-27-2022 CULTURE URINE Culture Observations : LIGHT GROWTH OF MIXED GENITAL KASIA. NO POTENTIAL PATHOGENS SEEN. Normal [facility] Comment on above: Performed By: #### U RCX ####[facility] [address] [place], [place] [address]WhDr. Cathleen Godwin GLYCOHEMOGLOBIN A1Con 2022 ADA RECOMMENDATION SEE BELOW Normal [facility] Comment on above: Result Comment: ADA RECOMMENDED LIMIT 4.0 - 6.0 ADA THERAPEUTIC TARGET < 7.0 ACTION SUGGESTED > 7.0 Performed By: #### A 1C #### [facility] [address] [address] [address] Cathleen Godwin Glucose [Mass/Vol] 114 mg/dL Normal [facility] Comment on above: Performed By: #### A 1C #### [facility] [address] [address] [address] Cathleen Godwin HbA1c (Bld) [Mass fraction] 5.6 % Normal 4.5-6.2 [facility] Comment on above: Performed By: #### A 1C #### [facility] [address] [address] [address] Cathleen Godwin TSHon 06-27-2022 TSH 14.370 uIU/mL Critically high 0.358-3.[address] [facility] Comment on above: Performed By: #### T SH #### [facility] [address] [address] [address] Cathleen Godwin TYPE AND SCREENon 06-27-2022 TYPE AND SCREEN Negative Normal [facility] Comment on above: Performed By: #### T NS #### [facility] [address] [address] [address] Cathleen Godwin US PREG ANATOMY SINGLEon US PREG ANATOMY SINGLE EXAMINATION: US PREG ANATOMY SINGLE, US PREG CERVICAL LENGTH HISTORY: anatomy study COMPARISON: No relevant comparison available. TECHNIQUE: Transabdominal sonographic examination was performed for obstetrical and evaluation. FINDINGS: Number: 1 Heart Rate: 150.0 bpm H.B. /min Amniotic Fluid Volume: Subjectively normal Placental Location: ANTERIOR with lower margin 3.6 cm from os Cervix Length: 3.6 cm, closed. ANATOMY: Normal Structures -cerebellum, choroid plexus, cisterna magna, lateral cerebral ventricles, orbits, midline falx, hard palate, four-chamber heart, RVOT, LVOT, stomach, kidneys, bladder, umbilical cord insertion into abdomen, three-vessel cord, cervical spine, thoracic spine, lumbar spine, sacral spine, right upper extremity, left upper extremity, right lower extremity, left lower extremity. SUBOPTIMALLY SEEN: None ABNORMALITIES: None BIOMETRY: BPD: 4.5 cm 19 weeks 5 days HC: 18.0 cm 20 weeks 3 days AC: 15.6 cm 20 weeks 5 days FL: 3.4 cm 20 weeks 5 days EFW:369.4 grams; 59% FL/AC: 22.0 FL/BPD: 75.5 HC/AC: 1.2 GESTATIONAL AGE: Age by EDC: 20 weeks 3 days GARRETT by EDC: 11/11/2022 Age by current US: 20 weeks 3 days GARRETT by current US: 11/11/2022 IMPRESSION: 1. Single live intrauterine with growth detailed above. Electronically authenticated by: CHRISTIANNE ULLOA Date: 2022-06-27 15:17 Normal [facility] Vital Signs Date Time Vital Sign Value Performing Clinician Facility 01-30-2023 15:40-0500 Body height 160.02 cm Addie Hernandez [facility] Other 01-30-2023 15:40-0500 Body mass index (BMI) [Ratio] 39.78 kg/m2 Addie Herndonmond [facility] Other 01-30-2023 15:40-0500 Body temperature 98 [degF] Addie Hernandez [facility] Other 01-30-2023 15:40-0500 Body weight 101.88 kg Addie Herndonmond [facility] Other 01-30-2023 15:40-0500 Diastolic blood pressure 64 mm[Hg] Addie Herndonmond [facility] Other 01-30-2023 15:40-0500 Respiratory rate 18 /min Addie Hernandez [facility] Other 01-30-2023 15:40-0500 SaO2% (BldA) [Mass fraction] 98 % Addie Hernandez [facility] Other 01-30-2023 15:40-0500 Systolic blood pressure 131 mm[Hg] Addie Hernandez [facility] Other 12-13-2022 09:05-0400 Body height 160.02 cm Linda Swanson [facility] Other 12-13-2022 09:05-0400 Body mass index (BMI) [Ratio] 38.97 kg/m2 Linda Swanson [facility] Other 12-13-2022 09:05-0400 Body temperature 98.2 [degF] Linda Swanson [facility] Other 12-13-2022 09:05-0400 Body weight 99.79 kg Linda Swanson [facility] Other 12-13-2022 09:05-0400 Diastolic blood pressure 76 mm[Hg] Linda Swanson [facility] Other 12-13-2022 09:05-0400 Respiratory rate 18 /min Linda Swanson [facility] Other 12-13-2022 09:05-0400 SaO2% (BldA) [Mass fraction] 98 % Linda Swanson [facility] Other 12-13-2022 09:05-0400 Systolic blood pressure 112 mm[Hg] Linda Swanson [facility] Other 08-15-2022 12:00-0400 Body height 160.02 cm Addie Hernandez [facility] Other 08-15-2022 12:00-0400 Body mass index (BMI) [Ratio] 40.21 kg/m2 Addie Hernandez [facility] Other 08-15-2022 12:00-0400 Body temperature 97.7 [degF] Addie Hernandez [facility] Other 08-15-2022 12:00-0400 Body weight 102.97 kg Addie Hernandez [facility] Other 08-15-2022 12:00-0400 Diastolic blood pressure 72 mm[Hg] Addie Hernandez [facility] Other 08-15-2022 12:00-0400 Respiratory rate 18 /min Addie Hernandez [facility] Other 08-15-2022 12:00-0400 SaO2% (BldA) [Mass fraction] 98 % Addie Hernandez [facility] Other 08-15-2022 12:00-0400 Systolic blood pressure 118 mm[Hg] Addie Hernandez [facility] Other 07-01-2022 14:08-0400 Body weight 100.[address] IVY RUVALCABA . [facility] Comment on above: Result Comment: This is a corrected repo rt. The previously reported result was: Weight 06/29/2022 Not provided. . Performed By: #### A FPMAT #### [facility] [address] [place] [address] Dr. Cathleen Godwin Encounters Encounter Date Encounter Type Care Provider Facility Start: 02-02-2023 End: 02-02-2023 ambulatory Linda Swanson [facility] Other Start: 02-02-2023 Telephone encounter Linda Swanson [facility] [address] Start: 01-30-2023 End: 01-30-2023 ambulatory Addie Hernandze [facility] Other Start: 01-30-2023 Office outpatient visit 15 minutes Addie Hernandez [facility] Start: 01-26-2023 End: 01-26-2023 ambulatory IVY RUVALCABA Not Available Start: 12-13-2022 Office outpatient visit 15 minutes Linda Swanson [facility] Start: 12-13-2022 End: 12-13-2022 ambulatory Linda Swanson Facility:[facility] Start: 12-13-2022 End: 12-13-2022 ambulatory JUICE Swanson Work Phone: [facility] Work Phone: Start: 12-13-2022 End: 12-13-2022 Patient encounter procedure 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 Facility:[facility] Start: 06-27-2022 End: 06-28-[address] IVY RUVALCABA . Facility:[facility] Start: 06-27-2022 End: 06-28-[address] IVY RUVALCABA . Facility:[facility] Start: 06-10-2020 End: 06-10-2020 ambulatory Jose A Stewart Work Phone: COVID Vaccine Steven Procedures Date Procedure Procedure Detail Performing Clinician Start: 12-13-2022 X-ray of left ankle APR N Lnida Swanson Work Phone: Plan of Treatment Date Care Activity Detail Author Start: 07-09-2023 Urine microalbumin profile DTAP,TDAP ,TD (2 - Td) [facility] Start: 12-11-2020 PAP TESTING PAP TESTING [facility] Start: 10-28-2020 Influenza vaccination INFLUENZA (Sea son Ended) [facility] Start: 2011 HEPATITIS C SCREENING HEPATITIS C SC REENING [facility] Start: 2011 HIV SCREENING HIV SCREENING [facility] Start: 2005 Adult depression scr eening assessment DEPRESSION SCREENING [facility] End: 08-09-2020 SARS-COVID VACCINE 1ST DOSE APPT SARS-COVID VACCINE 1ST DOSE APPT Procedures Routine 1 Occurrences starting 06/10/2020 until 08/09/2020 [facility] Comment on above: 1 Occurrences starti ng 06/10/2020 until 08/09/2020 Payers Date Payer Category Payer Self-pay 2022 Medicaid [id number] 2018 Private Health Insurance [employer] A ETNA PPO [id number] 2018-Present PPO [id number] 2018 Private Health Insurance [employer] A ETNA PPO [id number] 2018-Present PPO [id number] 1993 Unknown [id number] 3 1993 Unknown [id number] 3 1993 Unknown [id number] 3 1993 Unknown [id number] 59 Unknown [id number] 1 Social History Date Type Detail Facility Start: 07-02-2018 Tobacco smoking status NHIS Never smoker [facility] Start: 07-02-2018 Tobacco use and exposure Never used [facility] Start: 07-02-2018 Alcohol intake Current drinke r of alcohol (finding) [facility] Start: 1995 Sex Assigned At Not on file [facility] Sex Assigned At Sex Assigned At Bir th [employer] Other Start: 1995 Sex Assigned At Female F [facility] Evaluation note 01-30-2023 Note Date & Type Note Facility 01-30-2023 Evaluation note Encounter Date Diagnosis Assessment Notes Jan, [facility] externum of left upper eyelid (ICD-10 - H00.014) [facility] home care material was printed Drink plenty fluids, get plenty of rest. Use the eye ointment as prescribed. Apply warm compresses to your eye 2-3 times a day. Take Tylenol or Motrin as needed for pain. Watch for sores or lesions on the left side of your head or behind your ear which could be shingles. Go to the ER for worsening symptoms or concerns [employer] [facility] Other Evaluation note 12-13-2022 Note Date & Type Note Facility 12-13-2022 Evaluation note Encounter Date Diagnosis Assessment Notes Nov, Injury (ICD-10 - T14.90XA) Nov, Sprain of left ankle, unspecified ligament, initial encounter (ICD-10 - S93.402A) XR images and final report reviewed, no fracture noted, soft tissue swelling appreciated. Will place in pneumatic walking boot. Encouraged RICE therapy discussed- rest extremity, avoid excessive or strenuous activity, complete activity as tolerated; ice area for 15-20 minutes at a time multiple times a day, ensure thin cloth barrier between skin and ice; Splint/LAYNE wrap area; keep extremity elevated. Advised patient to use OTC NSAIDs/Tylenol as directed as needed for discomfort. Instructed patient to follow up with PCP or ortho if sx do not improve in the next 7-10 days. Immediate eval by ER for warning s/sx as discussed. Patient verbalizes understanding and is agreeable to treatment plan [facility] Other Evaluation note 08-15-2022 Note Date & Type Note Facility 08-15-2022 Evaluation note Encounter Date Diagnosis Assessment Notes Jul, Acute sinusitis, recurrence not specified, unspecified location (ICD-10 - J01.90) Sinusitis home care material was printed Drink plenty fluids, get plenty of rest. Continue home medications as prescribed. Take the amoxicillin with clavulanate as prescribed until gone and the Flonase nasal inhaler as prescribed until your symptoms improved. Follow-up with your family physician if no improvement in 2 to 3 days. Take Tylenol as needed for aches or pains. [facility] Other Clinical Note 06-10-2020 Note Date & Type Note Facility 06-10-2020 Note Patient Outreach ([place] [facility]AF[facility]) BRITTNEE SMITH ([id number]) 1995 F Date Time Provider Department 06/10/20 JOSE A STEWART During your visit today, we recorded the following information about you: Allergies As of Date: 06/10/2020 Noted Allergy Reaction SULFA (SULFONAMIDE ANTIBIOTICS) 07/02/2018 2 - Rash Date Reviewed: 07/02/2018 Reviewed by: Sakina HWANG) - Fully Assessed Order(s):SARS-COVID VACCINE 1ST DOSE APPT [[id number]] Order #: [id number] FUTURE SARS-COVID VACCINE 1ST DOSE APPT [[id number]] Order #: [id number] Prescriptions as of 06/10/2020 Sig: SYNTHROID 125 MCG TABLET Take 2 tablets by mouth once * Problem List As Of Date: 06/10/2020 (None) Encounter Status:Closed by EPIC, PRODUSER on 06/15/20 [facility] Evaluation note Note Date & Type Note Facility Evaluation note No assessment information availa [facility] Work Phone: Evaluation note Note Date & Type Note Facility Evaluation note No Information [facility] Other History general Narrative - Reported Note Date & Type Note Facility History general Narrative - Reported Type Medical History Hypothyroid Surgical History hand surgery [facility] Other History general Narrative - Reported Note Date & Type Note Facility History general Narrative - Reported Type Medical History Hypothyroid Surgical History hand surgery Hospitalization History childbirth [facility] Other Summary Purpose Family History No Family History Records FoundNo Family History Records FoundNo Family History Records FoundNo Family History Records Found Advance Directives No Advanced Directives Records FoundNo Advanced Directives Records FoundNo Advanced Directives Records FoundNo Advanced Directives Records Found Additional Source Comments Source Comments (unrecognize d section and content) In the event this informatio n is protected by the Federal Confidentiality of Alcohol and Drug Abuse Patient Records regulations: The Federal rules restrict any use of the information to criminally investigate or prosecute any alcohol or drug abuse patient.[facility] INFORMATION SOURCE (unrecogn ized section and content) DATE CREATED AUTHOR 06/17/2020 [facility] DATE CREATED AUTHOR AUTHOR'S ORGANIZ ATION 08/05/2022 [facility] DATE CREATED AUTHOR AUTHOR'S ORGANIZ ATION 12/21/2022 [facility] DATE CREATED AUTHOR AUTHOR'S IRVIN STEELE 02/03/2023 [facility] EPIC REASON FOR VISIT (unrecogniz ed section and content) CONGESTIONFELL DOWN THE STAI RS, LEFT ANKLENEED DROPS FOR LEFT EYE, MAKE UP CAUSED THE PROBLEM, PAIN ON LEFT SIDE OF HEAD (TOLD HER WE PROBABLY CAN'T GHELP HER WITH THAT.)feels the antibiotic isn't working Care Teams (unrecognized sec tion and content) Team Status: Inactive Member Role Status Dates Linda Swanson APRN Attending Provider Active Goals (unrecognized section and content) Goals may be documented in a n alternate section FOR RECORDS PERTAINING TO PATIENTS WHO ARE OR HAVE BEEN ENROLLED IN A CHEMICAL DEPENDENCY/SUBSTANCEABUSE PROGRAM, SOME INFORMATION MAY BE OMITTED. This clinical summary was aggregated from multiple sources. Caution should be exercised in using it in the provision of clinical care. This summary normalizes information from multiple sources, and as a consequence, information in this document may materially change the coding, format and clinical context of patient data. In addition, data may be omitted in some cases. CLINICAL DECISIONS SHOULD BE BASED ON THE PRIMARY CLINICAL RECORDS. [employer] provides no warranty or guarantee of the accuracy or completeness of information in this document.
[2023-04-07 15:59] LABS: Free T3 2.94 pg/mL (2.18-3.98); Thyroid Stimulating Hormone 0.107 uIU/mL (0.358-3.740)
[2023-04-07 16:09] LABS: Free T4 1.61 ng/dL (0.76-1.46)
[2023-04-10 18:07] LABS: Thyroglobulin Antibody <1.0 IU/mL (0.0-0.9); Thyroid Peroxidase (TPO) Ab 17 IU/mL (0-34)
== END 2023-04-07 14:56 | disposition home or self-care (01) ==
PROVIDERS: Visit Provider Internal Medicine
DX: E03.9 Hypothyroidism, unspecified (principal); E55.9 Vitamin D deficiency, unspecified
CPT/HCPCS: 36415; 82306; 84439; 84443; 84481; 86376; 86800

== ENCOUNTER 2023-12-11 13:01 | Emergency (ER) | payer OTHER, SELFPAY ==
[2023-12-11 13:05] VITALS: BP 128/83; PULSE 98; TEMP 36.7; O2SAT 100; BMI 36.9
--- NOTE | 2023-12-11 13:22 | CT_ITS ---
The [address] [address] Patient Name: BRITTNEE SMITH MRN: [id number] date: 1995 Sex: F Assigned Patient Location: ER Current Patient Location: ER Accession/Order Number: [id number] Exam Date: 12/11/2023 14:35 Report Date: 12/11/2023 15:22 At the request of: JACKIE GARDNER Procedure: CT abdomen pelvis wo con EXAMINATION: CT abdomen pelvis wo con HISTORY: Right flank pain COMPARISON: No relevant comparison available. TECHNIQUE: Axial, Coronal, and Sagittal images were created without IV contrast. Dose reduction techniques were achieved by using automated exposure control and/or adjustment of mA and/or kV according to patient size and/or use of iterative reconstruction technique. FINDINGS: LUNG BASES: No visible pulmonary or pleural disease. LIVER: No enlargement, atrophy, abnormal density, or significant focal lesion. BILIARY: No dilatation or calcification. PANCREAS: No lesion, fluid collection, ductal dilatation, or atrophy. SPLEEN: No enlargement or focal lesion. ADRENALS: No mass or enlargement. KIDNEYS: No mass, obstruction, or calcification. BOWEL/MESENTERY: No visible mass, obstruction, or bowel wall thickening. Normal appendix AORTA/VASCULAR: No aneurysm or dissection. RETROPERITONEUM: No mass or adenopathy. LYMPH NODES: No adenopathy. URINARY BLADDER: No visible focal wall thickening, lesion, or calculus. PELVIC ORGANS: IUD. 3.4 cm left adnexal cyst ABDOMINAL WALL: No mass or hernia. BONES: No bony lesion or fracture. OTHER: Negative. CT/CT abdomen pelvis wo con IMPRESSION: No obstructive uropathy 3.4 cm left adnexal cyst Electronically authenticated by: JENN REYEZ Date: 12/11/2023 15:22
--- NOTE | 2023-12-11 13:23 | ED_ITS ---
HPI - Abdominal Pain General Chief Complaint: Abdominal Pain Stated Complaint: BACK PAIN Time Seen by Provider: 12/11/23 13:19 Source: patient Mode of arrival: walk-in Limitations: no limitations History of Present Illness HPI narrative: 28 year old female presents to the ED for low abd, right flank pain. Onset was 2-3 days ago. Reports chills, dysuria. Denies fever, N/V/D, injury, hematuria. She was sent by urgent care for kidney stone evaluation. Denies chance of . Related Data Home Medications ?Medication ?Instructions ?Recorded ?Confirmed metformin 500 mg tablet 500 mg PO BID 10/31/22 11/04/22 vit no.95-ferrous 1 tab PO DAILY 10/31/22 11/04/22 fumarate 28 mg-folic acid 800 mcg tablet () levothyroxine 200 mcg tablet 200 mcg PO DAILY 11/04/22 11/04/22 (Synthroid) levothyroxine 75 mcg tablet 75 mcg PO DAILY 11/04/22 11/04/22 (Synthroid) Previous Rx's ?Medication ?Instructions ?Recorded cephalexin 500 mg capsule 500 mg PO BID 5 days #10 caps 12/11/23 phenazopyridine 200 mg tablet 200 mg PO Q8H PRN pain 6 doses #6 12/11/23 (Pyridium) tabs Allergies Allergy/AdvReac Type Severity Reaction Status Date / Time erythromycin base (From Allergy Intermediate Rash Verified 12/11/23 13:10 Pediazole) Sulfa (Sulfonamide Allergy Intermediate Rash Verified 12/11/23 13:10 Antibiotics) sulfisoxazole (From Allergy Intermediate Rash Verified 12/11/23 13:10 Pediazole) Review of Systems ROS Constitutional Reports: chills; Denies: fever Cardiovascular Denies: chest pain Respiratory Denies: shortness of breath Gastrointestinal Reports: abdominal pain; Denies: nausea, vomiting or diarrhea Genitourinary Reports: painful urination; Denies: urinary frequency, urinary urgency, urinary incontinence or blood in urine Musculoskeletal Reports: back pain; Denies: neck pain Integumentary/Breast Denies: rash Neurological Denies: headache or weakness in extremities PFSH PFS Medical History (Updated 12/11/23 @ 15:35 by Gracie Lazo) Hypothyroid ?E03.9 - Hypothyroidism, unspecified (ICD-10) Surgical History (Updated 10/03/22 @ 19:41 by Marly Wolfe) H/O hand surgery ?Z98.890 - Other specified postprocedural states (ICD-10) Family History (Updated 10/03/22 @ 19:42 by Marly Wolfe) Grandfather Family history of diabetes mellitus Family history of cancer Social History (Updated 11/04/22 @ 01:25 by Linda Figueroa) Smoking status: Never smoker Non-prescribed substance use: denies use 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 Known occupational exposures/hazards: No Highest level of school completed/degree received: some college, no degree Are you now , , , , never or living with a partner: In a typical week, how many times do you talk on the telephone with family, friends, or neighbors: 3 or more times per week How often do you get together with friends or relatives: 3 or more times per week How often do you attend methodist or mandaeism services: 4 or more times per year Little interest or pleasure in doing things: not at all Feeling down, depressed, or hopeless: not at all Feel stressed/tense/nervous/anxious/difficulty sleeping: only a little Do you think of yourself as: straight/heterosexual Gender Identity: female Exam Constitutional Vital Signs, click to edit/add: Last Vital Signs Temp 98.0 F 12/11/23 13:05 Pulse 98 H 12/11/23 13:05 Resp 18 12/11/23 13:05 BP 128/83 12/11/23 13:05 Pulse Ox 100 12/11/23 13:05 O2 Del Method Room Air 12/11/23 13:05 Common normals: no apparent distress and oriented x3 General appearance: cooperative Eye Common normals: conjunctivae normal and no scleral icterus Neck & C-Spine Common normals: supple Chest Chest: symmetrical chest wall rise Respiratory Common normals: normal respiratory effort Effort & inspection: able to speak in complete sentences and symmetric chest movement Cardio Common normals: regular rate and regular rhythm GI Common normals: Normal to inspection, nondistended, normoactive bowel sounds present and soft to palpation Palpation: tender Details: suprapubic Bladder/kidney exam: CVA tenderness on the right (minimal); not on the left Neuro Common normals: oriented x3 Sensorium/orientation: awake and alert Speech: speech normal Course Vital Signs Vital signs: Vital Signs Temperature 98.0 F 12/11/23 13:05 Pulse Rate 98 H 12/11/23 13:05 Respiratory Rate 18 12/11/23 13:05 Blood Pressure 128/83 12/11/23 13:05 Pulse Oximetry 100 12/11/23 13:05 Oxygen Delivery Method Room Air 12/11/23 13:05 Temperature 98.0 F 12/11/23 13:05 Pulse Rate 98 H 12/11/23 13:05 Respiratory Rate 18 12/11/23 13:05 Blood Pressure 128/83 12/11/23 13:05 Pulse Oximetry 100 12/11/23 13:05 Oxygen Delivery Method Room Air 12/11/23 13:05 MDM - Abdominal Pain MDM Narrative Medical decision making narrative: Urinalysis showed infection; culture was pending. CT scan showed no obstructive uropathy 3.4 cm left adnexal cyst. Findings were discussed with the patient. Prescriptions were provided for Keflex and Pyridium. Follow up with pcp for a recheck, further evaluation and treatment. Differential Diagnosis Differential diagnosis: Likely other (UTI, kidney stone) Medical Records Attestation: I reviewed the patient's medical records. Lab Data Attestation: I reviewed the patient's lab results. Labs: Lab Results 12/11/23 12/11/23 Range/Units 13:36 13:45 WBC 13.1 H (4.0-11.0) 10^3/uL RBC 4.39 (4.20-5.40) 10^6/uL Hgb 12.9 (12.0-16.0) g/dL Hct 37.9 (36.0-48.0) % MCV 86.3 (81.0-99.0) fL MCH 29.4 (26.7-34.0) pg MCHC 34.0 (29.9-35.2) g/dL RDW 13.0 (11.0-15.0) % Plt Count 233 (150-450) 10^3/uL MPV 10.6 (9.5-13.5) fL Neut % (Auto) 63.0 (43.0-75.0) % Lymph % (Auto) 28.0 (20.5-60.0) % [place] % (Auto) 6.5 (1.7-12.0) % Eos % (Auto) 1.7 (0.9-7.0) % Baso % (Auto) 0.6 (0.2-2.0) % Neut # (Auto) 8.3 H (1.4-6.5) 10^3/uL Lymph # (Auto) 3.7 (1.2-3.8) 10^3/uL [place] # (Auto) 0.9 H (0.3-0.8) 10^3/uL Eos # (Auto) 0.2 (0.0-0.7) 10^3/uL Baso # (Auto) 0.1 (0.0-0.1) 10^3/uL Abs Immat Gran (auto) 0.03 (0.00-0.03) 10^3/uL Imm/Tot Granulo (auto) 0.2 (0.0-0.5) % Sodium 139 (136-145) mmol/L Potassium 4.0 (3.5-5.1) mmol/L Chloride 105 (98-107) mmol/L Carbon Dioxide 24.9 (21.0-32.0) mmol/L Anion Gap 13.1 BUN 9.0 (7.0-18.0) mg/dL Creatinine 0.69 (0.55-1.02) mg/dL Est GFR ( Amer) >60 (>=60 mL/min/1.73m^2) Est GFR (Non-Af Amer) >60 (>=60 mL/min/1.73m^2) BUN/Creatinine Ratio 13.0 Glucose 94 (74-106) mg/dL Calcium 8.9 (8.5-10.1) mg/dL Urine Color Lt. yellow (YELLOW) Urine Clarity Clear (CLEAR) Urine pH 6.0 (5.0-9.0) Ur Specific [place] 1.020 (1.005-1.025) Urine Protein Trace (NEG/TRACE) mg/dL Urine Glucose (UA) Negative (NEGATIVE) mg/dL Urine Ketones Negative (NEGATIVE) mg/dL Urine Occult Blood Large A (NEGATIVE) Urine Nitrite Negative (NEGATIVE) Urine Bilirubin Negative (NEGATIVE) Urine Urobilinogen 0.2 (0.2-1.0) EU/dL Ur Leukocyte Esterase Small A (NEGATIVE) Urine RBC 5-10 A (0-2) #/HPF Urine WBC 20-50 A (NONE SEEN) #/HPF Ur Squamous Epith Cells Few A (NONE/RARE) #/LPF Urine Crystals None seen (None Seen) #/HPF Urine Bacteria Small A (NONE SEEN) #/HPF Urine Casts None seen (NONE SEEN) #/LPF Urine Mucus None seen (NONE SEEN) Ur Culture Indicated? Yes Urine HCG, Qual Negative (NEGATIVE) Imaging Data CT scan - abdomen: Attestation: I have reviewed the pertinent imaging results. Radiologist's impression: ITS Impressions Abdomen/Pelvis CT 12/11/23 13:22 IMPRESSION: No obstructive uropathy 3.4 cm left adnexal cyst Electronically authenticated by: JENN REYEZ Date: 12/11/2023 15:22 Discharge Plan Discharge Chief Complaint: Abdominal Pain Clinical Impression: UTI (urinary tract infection) Patient Disposition: Home, Self-Care Time of Disposition Decision: 15:35 Condition: Good Mode of Transportation: Private Vehicle Prescriptions / Home Meds: New cephalexin 500 mg capsule 500 mg PO BID 5 Days Qty: 10 0RF phenazopyridine [Pyridium] 200 mg tablet 200 mg PO Q8H PRN (Reason: pain) Qty: 6 0RF No Action levothyroxine [Synthroid] 200 mcg tablet 200 mcg PO DAILY levothyroxine [Synthroid] 75 mcg tablet 75 mcg PO DAILY PNV cmb#95-ferrous fumarate-FA [] 28 mg iron- 800 mcg tablet 1 tab PO DAILY metformin 500 mg tablet 500 mg PO BID Print Language: Setswana Instructions: Urinary Tract Infection in Women (ED) Additional Instructions: Return to the ER for new or worsening symptoms. Referrals: Physician,Non-Staff, MD [Primary Care Provider] - 1 week Discharge Date/Time: 12/11/23 15:46
[2023-12-11 13:56] LABS: Basophils Absolute Auto 0.1 10^3/uL (0.0-0.1); Basophils Percent Auto 0.6 % (0.2-2.0); Eosinophils Absolute Auto 0.2 10^3/uL (0.0-0.7); Eosinophils Percent Auto 1.7 % (0.9-7.0); Hematocrit 37.9 % (36.0-48.0); Hemoglobin 12.9 g/dL (12.0-16.0); Immature Granulocytes Abs Auto 0.03 10^3/uL (0.00-0.03); Immature Granulocytes Pct Auto 0.2 % (0.0-0.5); Lymphocytes Absolute Auto 3.7 10^3/uL (1.2-3.8); Mean Corpuscular Hemoglobin 29.4 pg (26.7-34.0); Mean Corpuscular Volume 86.3 fL (81.0-99.0); Mean Platelet Volume 10.6 fL (9.5-13.5); Monocytes Absolute Auto 0.9 10^3/uL (0.3-0.8); Monocytes Percent Auto 6.5 % (1.7-12.0); Neutrophils Absolute Auto 8.3 10^3/uL (1.4-6.5); Platelet Count 233 10^3/uL (150-450); Red Blood Count 4.39 10^6/uL (4.20-5.40); White Blood Count 13.1 10^3/uL (4.0-11.0)
[2023-12-11 14:02] LABS: HCG Qualitative Urine* NEGATIVE (NEGATIVE); Internal Control Within Normal Limits
[2023-12-11 14:03] LABS: Bilirubin Urine NEGATIVE (NEGATIVE); Blood Urine LARGE (NEGATIVE); Clarity Urine CLEAR (CLEAR); Color Urine LT. YELLOW (YELLOW); Glucose Urine UA NEGATIVE (NEGATIVE); Ketones Urine NEGATIVE (NEGATIVE); Leukocyte Esterase Urine SMALL (NEGATIVE); Nitrite Urine NEGATIVE (NEGATIVE); Protein Urine TRACE mg/dL (NEG/TRACE); Urobilinogen Urine 0.2 EU/dL (0.2-1.0)
[2023-12-11 14:04] LABS: Urine Microscopic Indicated YES
[2023-12-11 14:08] LABS: Anion Gap 13.1; Calcium 8.9 mg/dL (8.5-10.1); Carbon Dioxide 24.9 mmol/L (21.0-32.0); Chloride 105 mmol/L (98-107); Estimated GFR (African America >60 (>=60 mL/min/1.73m^2); Estimated GFR (Non-African Ame >60 (>=60 mL/min/1.73m^2); Glucose 94 mg/dL (74-106); Sodium 139 mmol/L (136-145)
[2023-12-11 14:14] LABS: Bacteria Urine SMALL #/HPF (NONE SEEN); Cast Seen? NONE SEEN #/LPF (NONE SEEN); Crystals Seen? None Seen #/HPF (None Seen); Mucus Urine NONE SEEN (NONE SEEN); Squamous Epithelial Cell Urine FEW #/LPF (NONE/RARE); Urine Culture Indicated YES; WBC Urine 20-50 #/HPF (NONE SEEN)
[2023-12-11] MEDS: CEPHALEXIN 500 MG CAPSULE PO (15:44)
[2023-12-11] MEDS: PHENAZOPYRIDINE 100 MG TABLET PO (15:44)
== END 2023-12-11 15:46 | disposition home or self-care (01) ==
PROVIDERS: Nurse Practitioner Family; Emergency Provider Student in an Organized Health Care Education/Training Program
DX: N39.0 Urinary tract infection, site not specified (principal)
CPT/HCPCS: 36415; 74176; 80048; 81001; 84703; 85025; 87086; 99285

== ENCOUNTER 2024-08-19 13:26 | Outpatient (RCR) | payer OTHER, SELFPAY ==
--- OUTSIDE RECORDS SUMMARY | 2023-02-23 05:30 | XMS_ITS ---
Author Organization 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 * Medical History: C HT (congenital hypothyroidism). * Surgical History: D enies Past Surgical History. * Hospitalization/Major Diagno stic Procedure: D enies Past Hospitalization. * Family History: F ather: alive. M other: alive. P aternal Grand Father: . P aternal Grand Mother: . M aternal Grand Father: . M aternal Grand Mother: . * Allergies: P ediazole: Allergy - Onset Date 07/19/2011, Sulfa Antibiotics: Allergy - Onset Date 07/19/2011. Objective: * Vitals: Assessment: Plan: * Treatment: Care Plan: * Problems: * Billing Information: * Visit Code: * Procedure Codes: * Electronic signature of ANNA Balderrama on 08/19/2024 at 01:34 PM EDT Sign off status: Pending * Provider: Autumn Santos PA-C Date: 1 04/26/2022 Generated for Champ lanier/Deysi/Jacey on: 0 08/19/2024 01:34 PM EDT
--- OUTSIDE RECORDS SUMMARY | 2024-08-09 11:10 | XMS_ITS | Encounter Summary ---
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 Name Role Phone Unavailable Primary Care Provider Unavailabl e Reason for Visit * Reason Comments Thyroid Problem Encounter Details Date Type Department Care Team ([facility] Contact Info) Description 08/09/2024 11:10 AM EDT Office Visit [facility] [address] [place] [address] Allen Carr MD [address] [place] [address] Alfredo's disease (Primary Dx); Vitamin D deficiency; Encounter for dietary consultation; Class 3 severe obesity due to excess calories without serious comorbidity with body mass index (BMI) of 40.0 to 44.9 in adult ([facility]); Thyroid disease during , first trimester (HCC); Hypothyroidism, unspecified type Social History Tobacco Use Types Packs/Day Years Used Date Smoking Tobacco: Never Smokeless Tobacco: Never Alcohol Use Standard Drinks/Week Comments Yes 2 (1 standard drink = 0.6 oz pure alcohol) Alcohol: 1 or 2 drinks, 2 to 4 times a month; Caffeine: 1 can /week Comments No Sex and Gender Information Value Date Recorded Sex Assigned at Female 07/26/2022 8:23 AM EDT Legal Sex Female 7:11 PM EDT Gender Identity Female 07/26/2022 8:23 AM EDT Sexual Orientation Straight 07/26/2022 8: 23 AM EDT documented as of this encounter Last Filed Vital Signs Vital Sign Reading Time Taken Comments Blood Pressure - - Pulse 93 08/09/2024 11:20 AM EDT Temperature - - Respiratory Rate 16 08/09/2024 11:20 AM EDT Oxygen Saturation 99% 08/09/2024 11:20 AM EDT Inhaled Oxygen Concentration - - Weight 106 kg (234 lb) 08/09/2024 11:20 AM EDT Height 162.6 cm (5' 4 ) 08/09/2024 11:20 AM EDT Body Mass Index 40.17 08/09/2024 11:20 AM EDT documented in this encounter Progress Notes * Allen Carr MD - 08/09/2024 11:10 AM EDT Raya Mathur is a 29 y.o. female Allen Carr MD presents with chief complaint of Thyroid Problem HPI: IM : 07/2023 follow up on 08/10/2023 for uncontrolled hypothyroidism. on levothyroxine 300 mcg daily. No new lab,She just found she is . IM : 03/2023 follow up on 04/12/2023 for uncontrolled hypothyroidism. lab on 03/2023 TPO 17, TgAB<1, TSH 0.107, FT3 2.94 (2.18-3.98), FT4 1.61 (0.76-1.41), on levothyroxine 300 mcg daily. HPI: 12/2022 New patient sent from Dr. Ha Baker for uncontrolled hypothyroidism. TSH back in June 2022 14 and November 2022 7.72, recently increased from 250 to 300. 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 SUBJECTIVE: MEDICATIONS: Current Outpatient Medications Medication Instructions fluticasone (Flonase) 50 MCG/ACT nasal spray 1 spray, Daily levothyroxine (SYNTHROID) 300 mcg, Oral, Daily before breakfast Synthroid 300 mcg, Oral, Daily ALLERGIES: Allergies Allergen Reactions Sulfa Antibiotics Other and Rash Other Reaction(s): Unknown Other Rash and Other PEDIAZOLE Sulfamethoxazole Rash Past Medical History: Diagnosis Date Anemia Body mass index 38.0-38.9, adult Cluster headache Dietary counseling and surveillance Disease of thyroid gland H/O chlamydia infection History of medical problems absent thyroid Hypothyroidism Obesity UTI (urinary tract infection) 2015 Vitamin D deficiency Past Surgical History: Procedure Laterality Date HAND SURGERY 2015 ORIF right hand WISDOM TOOTH EXTRACTION 07/2013 teeth REVIEW OF SYMPTOMS: 14 POINT OF SYSTEM REVIEWED AND NEGATIVE OBJECTIVE: Visit Vitals Pulse 93 Resp 16 Ht 5' 4 Wt 234 lb SpO2 99% BMI 40.17 kg/m?? OB Status Having periods Smoking Status Never BSA 2.19 m?? Physical Exam Constitutional: Appearance: Normal appearance. She is normal weight. HENT: Head: Normocephalic and atraumatic. Right Ear: External ear normal. Nose: Nose normal. Mouth/Throat: Pharynx: Oropharynx is clear. Eyes: Extraocular Movements: Extraocular movements intact. Pupils: Pupils are equal, round, and reactive to light. Cardiovascular: Rate and Rhythm: Normal rate and regular rhythm. Pulmonary: Effort: Pulmonary effort is normal. Abdominal: General: Abdomen is flat. Palpations: Abdomen is soft. Musculoskeletal: General: Normal range of motion. Skin: General: Skin is warm. Neurological: General: No focal deficit present. Mental Status: She is alert. Psychiatric: Mood and Affect: Mood normal. Behavior: Behavior normal. 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; Take 1 tablet (300 mcg) by mouth Daily - T3, free; Future - T4, free; Future - TSH; Future We will continue with levothyroxine 300 mcg daily Vitamin D deficiency Encounter for dietary consultation Class 3 severe obesity due to excess calories without serious comorbidity with body mass index (BMI) of 40.0 to 44.9 in adult ([facility]) Thyroid disease during , first trimester ([facility]) - Synthroid 300 MCG tablet; Take 1 tablet (300 mcg) by mouth Daily - T3, free; Future - T4, free; Future - TSH; Future She just found she is , we will check free T4 free T3 to keep it in the high-normal. Follow up in about 2 months (around 10/09/2024). documented in this encounter Plan of Treatment Upcoming Encounters Date Type Department Care Team (Late st Contact Info) Description 09/05/2024 1:00 PM EDT Ancillary Procedure [facility] [address] [place] [address] [place] [address] 09/05/2024 1:30 PM EDT Initial [facility] [address] [facility] [place] [address] 10/04/2024 10:40 AM EDT Office Visit [facility] [address] [place] [address] Allen Carr MD [address] [place] [address] documented as of this encounter Procedures Procedure Name Priority Date/Time Associated Diagnosis Comments T3, FREE Routine 08/09/2024 12:09 PM EDT Alfredo's disease Thyroid disease during , first trimester (HCC) TSH Routine 08/09/2024 12:09 PM EDT Alfredo's disease Thyroid disease during , first trimester (HCC) T4, FREE Routine 08/09/2024 12:09 PM EDT Alfredo's disease Thyroid disease during , first trimester (HCC) documented in this encounter Results * TSH (08/09/2024 12:09 PM EDT) TSH 3.130 0.450 - 4.500 uIU/mL [facility] Blood Venous blood specimen / Unknown 08/09/2024 12:09 PM EDT 08/09/2024 Narrative [facility] - 08/10/2024 4:35 AM EDT Performed at: 01 - [facility] [address] [id number] Production Statistical Clerk: Atul Duvall PhD, Phone: [phone] us Allen Carr MD LAB BLOOD ORDERABLES Final Re sult [facility] * (ABNORMAL) T4, free (08/09/2024 12:09 PM EDT) T4Free(Direct) 0.77(L) 0.82 - 1.77 ng/dL [facility] Blood Venous blood specimen / Unknown 08/09/2024 12:09 PM EDT 08/09/2024 Narrative [facility] - 08/10/2024 4:35 AM EDT Performed at: [address] [place] [id number] Production Statistical Clerk: Atul Duvall PhD, Phone: [phone] Allen Carr MD LAB BLOOD ORDERABLES Final Re sult [facility] * T3, free (08/09/2024 12:09 PM EDT) Pathologist [facility] T3, FREE 2.4 2.0 - 4.4 pg/mL [facility] Blood Venous blood specimen / Unknown 08/09/2024 12:09 PM EDT 08/09/2024 Narrative [facility] - 08/10/2024 4:35 AM EDT Performed at: [address] [place] [id number] Production Statistical Clerk: Atul Duvall PhD, Phone: [phone] us Allen Carr MD LAB BLOOD ORDERABLES Final Re sult [facility] documented in this encounter Visit Diagnoses Diagnosis Alfredo's disease- Primary Chronic lymphocytic thyroiditis Vitamin D deficiency Encounter for dietary consultation Class 3 severe obesity due to excess calories without serious comorbidity with body mass index (BMI) of 40.0 to 44.9 in adult ([facility]) Thyroid disease during , first trimester (HCC) Hypothyroidism, unspecified type documented in this encounter
--- OUTSIDE RECORDS SUMMARY | 2024-08-19 13:34 | XMS_ITS | Data Portability ---
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 A repeat EKG was performed in the office with results as noted above. The patient currently experiencing symptoms. Further cardiac testing required and has been discussed with the patient. Not available 02/15/2018 15:13:09 Plan of Treatment Reminders Order Date Submit Date Provider Last Modified By Organization Details Last Modified Time Details Appointments None record ed. Lab None record ed. Referral None record ed. Procedures None record ed. Surgeries None record ed. Imaging None record ed. Medication Orders None record ed. Patient TargetsNo targets recorded. Patient InstructionsNo instructions recorded. Reason for Referral None Reported. Results Created Date Observation Date Name Description Value Unit Range Abnormal Flag Note LastModifiedBy Organization Detail LastModifiedTime 03/12/19 19 US, echoc ardio gram No observ ation record ed. [email or web address] Not Available 2018 13:49:52 Result Notes None recorded. Medical Equipment None Reported. Allergies Allergen ID Allergen Name Allergen Category Reaction Reaction Severity Criticality Documentation Date Start Date Code Code System Note Provider Name and Address Organization Details Recorded Time 813 Substance with sulfonami de structure and antibacte rial mechanism of action (substanc e) medicatio n Not available Not available Not available 03/13/2018 [id number] SNOMED Linagayla Amanda [place], [place] - [facility] 9 15:19:33 Medications Name Sig Start Date Stop Date Status Note LastModified by Organization Details LastModified Time Synthroid 200 mcg tablet Take 1 tablet every day by oral route. active Not Available Not Available No t Available Synthroid 25 mcg tablet Take 1 tablet every day by oral route. active Not Available Not Available No t Available Vitals Date Recorded Body weight Body mass index (BMI) Body height Respiratory rate Heart rate Oxygen saturation Oxygen saturation in Arterial blood by Pulse oximetry Systolic blood pressure Diastolic blood pressure Provider Name and Address Organization Details Last Updated DateTime 9 96011.4 g 36 kg/m2 162.56 cm 16 /min 94 /min 98 % 98 % 112 mm[Hg] 60 mm[Hg] [facility] - [facility] 9 15:19:18 Social History Question Answer Notes LastModified by Organizat ion Details LastModified Time Tobacco Smoking Status Never Smoker [facility] Amanda [facility] [place] - [facility] 03/13/2018 15:21:12 Marital Status Single [email or web address] Informatio n not available 03/13/2018 What Was The Date Of Your Most Recent Tobacco Screening? 03/13/2018 Information not available 09/20/2018 Sex: Unknown Functional Status None recorded. Mental Status None recorded. Family History Nothing Reported Notes:mother alive father al ricky Medical History Condition Response Coronary Artery Disease N Thyroid Disease N Atrial Fibrillation N Congenital Heart Disease N COPD N Depression N Peripheral Arterial Disease N Pacemaker N Anemia N TIA N Genitourinary Disease N Gastrointestinal Disease N Deep Vein Thrombosis N Diabetes N Cardiomyopathy N Blood Clot N Myocardial Infarction N Congestive Heart Failure (CHF) N Valvular Heart Disease N Hyperlipidemia N Cancer N Stroke N Asthma N Atrial Flutter N Carotid Disease N Sleep Apnea N Warfarin Management N Sleep Disorder N High Cholesterol N GERD/Reflux N Aortic Aneurysm N Neurologic Disorder N Liver Disease N Valvular Abnormalities N Heart Disease N Arrhythmia N Hypertension N Kidney Disease N Hematologic Disease N Gynecological HistoryNo gynecological history recorded. Obstetrics History GPAL:G 0 P 0 0 0 0 Past Encounters Encounter ID Performer Location Encounter Start Date Encounter Closed Date Diagnosis/Indication Diagnosis SNOMED-CT Code Diagnosis ICD10 Code Diagnosis Note [id number] Mini Gipson MD Main Office [address] [place] [phone] 01/30/2018 10:52:38 01/30/2018 15:49:20 Electrocardiogram abnormal 450839299 R94.31 [id number] Mini Gipson MD Main Office [address] [place] [address] [address] [place] [address] 03/13/2018 15:10:10 03/13/2018 15:47:46 Systolic murmur 27183530 R01.1 Echo 01/30/18 - EF of 65-70%, trace MVR, trace TVR Hypothyroidism 48748343 E03.9 Thyroid function and medication management per PCP/endocr inology. Palpitations 33386985 R0 0.2 Event monitor shows episodes of tachycardi a, however patient denies feeling any palpitatio ns. She reports that she runs around a lot at work and has to walk up and down stairs at home. Palpitatio ns most likely related to condition. Spoke to Dr. Gipson regarding event monitor results via telephone, no need for interventi on at this time. Patient instructed to keep a track of her pulse rate. Patient instructed that if palpitatio ns occur more frequently and even at rest that she should come back into office sooner. Health Concerns Section Related Observation LastModified by Organization Detai ls LastModified Time None Recorded Concern Status LastModified by Organization Details LastModified Time None Recorded Advance Directives Directive None Recorded Payers Insurance Date Sequence Insurance Name Policy Number Policy Malagon Covered Member ID Malagon Member ID Guarantor Name 07/31/2018 1 [employer] (PPO) [id number] Munir Mathur [id number] Raya Mathur 12/05/2022 2 [facility] (MEDICAID REPLACEMENT - HMO) [id number] Raya Mathur [id number] Raya Mathur 12/05/2022 1 [employer] (PPO) Munir Mccabeasi [id number] Raya Mathur Notes Date Note Type Note Provider Name and Address Organization Details Recorded Time 01/30/2018 text/html Patient presents today with a history of abnormal EKG results. Patient is . Associated Symptoms: chest pain. dizziness. fainting. palpitations. shortness of breath. weakness. fatigue. Mini Giposn MD [address] [facility] [address], [place], [address], [place] - [facility] 02/21/2018 14:34:22 03/13/2018 text/html Patient is a 23 year old female with a past medical history of palpitations and hypothyroid who presents to the office for test results. Denies any chest pain, palpitations, shortness of breath, edema, n/v/d, fever/chills, headaches, dizziness, fatigue or bowel/urinary complaints. Simone ascencio [place] - [facility] 03/13/2018 15:49:42 OBGyn Episode No OBEpisode recorded.
--- OUTSIDE RECORDS SUMMARY | 2024-08-19 13:34 | XMS_ITS | Encounter Summary ---
Author Organization [facility] Address [address] [place] [address] Care Team Providers Care Rug Inspector Name Role Phone Unavailable Primary Care Provider Unavailabl e Encounter Details Date Type Department Care Team (Late Contact Info) Description 08/24/2022 External Result Encounter [facility] [address] [place] [address] Ha Baker [facility] Courtney Aguirre, [facility] Social History Tobacco Use Types Packs/Day Years Used Date Smoking Tobacco: Never Assessed Comments Yes Sex and Gender Information Value Date Recorded Sex Assigned at Female 07/26/2022 8:23 AM EDT Legal Sex Female 7:11 PM EDT Gender Identity Female 07/26/2022 8:23 AM EDT Sexual Orientation Straight 07/26/2022 8: 23 AM EDT COVID-19 Exposure Response Date Recorded In the last 10 days, have katerina u been in contact with someone who was confirmed or suspected to have Coronavirus/COVID-19? No / Unsure 08/21/2022 2:45 PM EDT documented as of this encounter Plan of Treatment Upcoming Encounters Date Type Department Care Team (Late st Contact Info) Description 09/05/2024 1:00 PM EDT Ancillary Procedure [facility] [address] [place] [id number] 09/05/2024 1:30 PM EDT Initial [facility] [address] [place] [address] 10/04/2024 10:40 AM EDT Office Visit [facility] [address] [place] [address] Allen Carr MD [address] [place] [address] documented as of this encounter Procedures Procedure Name Priority Date/Time Associated Diagnosis Comments URINARY TRACT INFECTION (HTRX) Routine 07/04/2023 3:25 PM EDT RECURRENT VAGINITIS (HTRX) Routine 07/04/2023 3:23 PM EDT RECURRENT VAGINITIS (HTRX) Routine 05/31/2023 4:59 PM EDT RECURRENT VAGINITIS (HTRX) Routine 01/26/2023 3:21 PM EST [facility] ([facility]) Routine 12/01/2022 1:14 PM EDT US OB 14+ WEEKS ANATOMY SCAN 08/24/2022 10:26 AM EDT documented in this encounter Results * (ABNORMAL) URINARY TRACT INFECTION (HTRX) (07/04/2023 3:25 PM EDT) ACINETOBACTER BAUMANII 0.000 19.961 - 24.689 ppm 07/05/2023 8:40 AM EDT [facility] ACINETOBACTER BAUMANII Not Detected 19.961 - 24.689 ppm 07/05/2023 8:40 AM EDT [facility] CITROBACTER FREUNDII 0.000 23.000 - 31.881 ppm 07/05/2023 8:40 AM EDT [facility] CITROBACTER FREUNDII Not Detected 23.000 - 31.881 ppm 07/05/2023 8:40 AM EDT [facility] ENTEROBACTER AEROGENES, CLOACAE 0.000 23.000 - 31.535 ppm 07/05/2023 8:40 AM EDT [facility] ENTEROBACTER AEROGENES, CLOACAE Not Detected 23.000 - 31.535 ppm 07/05/2023 8:40 AM EDT [facility] ENTEROCOCCUS FAECALIS, FAECIUM 0.000 26.000 - 31.575 ppm 07/05/2023 8:40 AM EDT [facility] ENTEROCOCCUS FAECALIS, FAECIUM Not Detected 26.000 - 31.575 ppm 07/05/2023 8:40 AM EDT [facility] ESCHERICHIA COLI 0.000 23.000 - 28.500 ppm 07/05/2023 8:40 AM EDT [facility] ESCHERICHIA COLI Not Detected 23.000 - 28.500 ppm 07/05/2023 8:40 AM EDT [facility] KLEBSIELLA PNEUMONIAE, OXYTOCA 0.000 23.000 - 30.500 ppm 07/05/2023 8:40 AM EDT [facility] KLEBSIELLA PNEUMONIAE, OXYTOCA Not Detected 23.000 - 30.500 ppm 07/05/2023 8:40 AM EDT [facility] MORGANELLA MORGANII 0.000 19.961 - 24.689 ppm 07/05/2023 8:40 AM EDT [facility] MORGANELLA MORGANII Not Detected 19.961 - 24.689 ppm 07/05/2023 8:40 AM EDT [facility] PROTEUS MIRABILIS, VULGARIS 0.000 23.000 - 28.500 ppm 07/05/2023 8:40 AM EDT [facility] PROTEUS MIRABILIS, VULGARIS Not Detected 23.000 - 28.500 ppm 07/05/2023 8:40 AM EDT [facility] PSEUDOMONAS AERUGINOSA 0.000 23.000 - 28.500 ppm 07/05/2023 8:40 AM EDT [facility] PSEUDOMONAS AERUGINOSA Not Detected 23.000 - 28.500 ppm 07/05/2023 8:40 AM EDT [facility] STAPHYLOCOCCUS AUREUS 0.000 26.000 - 30.902 ppm 07/05/2023 8:40 AM EDT [facility] STAPHYLOCOCCUS AUREUS Not Detected 26.000 - 30.902 ppm 07/05/2023 8:40 AM EDT [facility] STREPTOCOCCUS AGALACTIAE (GROUP B STREP) 0.000 26.000 - 32.222 ppm 07/05/2023 8:40 AM EDT [facility] STREPTOCOCCUS AGALACTIAE (GROUP B STREP) Not Detected 26.000 - 32.222 ppm 07/05/2023 8:40 AM EDT [facility] SHOAIB ALBICANS, PARAPSILOSIS, TROPICALIS 0.000 23.000 - 30.770 ppm 07/05/2023 8:40 AM EDT [facility] SHOAIB ALBICANS, PARAPSILOSIS, TROPICALIS Not Detected 23.000 - 30.770 ppm 07/05/2023 8:40 AM EDT [facility] SHOAIB GLABRATA 0.000 23.000 - 32.138 ppm 07/05/2023 8:40 AM EDT [facility] SHOAIB GLABRATA Not Detected 23.000 - 32.138 ppm 07/05/2023 8:40 AM EDT [facility] SHOAIB KRUSEI 0.000 23.000 - 32.271 ppm 07/05/2023 8:40 AM EDT [facility] SHOAIB KRUSEI Not Detected 23.000 - 32.271 ppm 07/05/2023 8:40 AM EDT [facility] SERRATIA MARCESCENS 0.000 23.000 - 31.204 ppm 07/05/2023 8:40 AM EDT [facility] SERRATIA MARCESCENS Not Detected 23.000 - 31.204 ppm 07/05/2023 8:40 AM EDT [facility] STREPTOCOCCUS PYOGENES (GROUP A STREP) 0.000 19.961 - 24.689 ppm 07/05/2023 8:40 AM EDT [facility] STREPTOCOCCUS PYOGENES (GROUP A STREP) Not Detected 19.961 - 24.689 ppm 07/05/2023 8:40 AM EDT [facility] STAPHYLOCOCCUS EPIDERMIDIS, HAEMOLYTICUS, LUGDUNENSIS, SAPROPHYTICUS (URINA 0.000 19.961 - 24.689 ppm 07/05/2023 8:40 AM EDT [facility] STAPHYLOCOCCUS EPIDERMIDIS, HAEMOLYTICUS, LUGDUNENSIS, SAPROPHYTICUS (URINA Not Detected 19.961 - 24.689 ppm 07/05/2023 8:40 AM EDT [facility] STAPHYLOCOCCUS EPIDERMIDIS, HAEMOLYTICUS, LUGDUNENSIS, SAPROPHYTICUS (URINA 29.769(A) 19.961 - 24.689 ppm 07/05/2023 8:40 AM EDT [facility] STAPHYLOCOCCUS EPIDERMIDIS, HAEMOLYTICUS, LUGDUNENSIS, SAPROPHYTICUS (URINA Detected(A) 19.961 - 24.689 ppm 07/05/2023 8:40 AM EDT [facility] ACT, TAMMY, GÓMEZ, ACC GROUPS 0.000 23.000 - 31.085 ppm 07/05/2023 8:40 AM EDT [facility] ACT, TAMMY, GÓMEZ, ACC GROUPS Not Detected 23.000 - 31.085 ppm 07/05/2023 8:40 AM EDT [facility] CTX-M1 (15), M2 (2), M9 (9), M8-25 GROUPS 0.000 23.000 - 32.546 ppm 07/05/2023 8:40 AM EDT [facility] CTX-M1 (15), M2 (2), M9 (9), M8-25 GROUPS Not Detected 23.000 - 32.546 ppm 07/05/2023 8:40 AM EDT [facility] DFR (A1, A5), SUL (1,2) 0.000 23.000 - 27.000 ppm 07/05/2023 8:40 AM EDT [facility] DFR (A1, A5), SUL (1,2) Not Detected 23.000 - 27.000 ppm 07/05/2023 8:40 AM EDT [facility] ERMB, C; MEFA 23.418(A) 23.000 - 27.611 ppm 07/05/2023 8:40 AM EDT [facility] ERMB, C; MEFA Detected(A) 23.000 - 27.611 ppm 07/05/2023 8:40 AM EDT [facility] IMP, NDM, VIM GROUPS 0.000 23.000 - 32.894 ppm 07/05/2023 8:40 AM EDT [facility] IMP, NDM, VIM GROUPS Not Detected 23.000 - 32.894 ppm 07/05/2023 8:40 AM EDT [facility] MECA 0.000 23.000 - 31.199 ppm 07/05/2023 8:40 AM EDT [facility] MECA Not Detected 23.000 - 31.199 ppm 07/05/2023 8:40 AM EDT [facility] OXA-48, 51 0.000 23.000 - 31.345 ppm 07/05/2023 8:40 AM EDT [facility] OXA-48, 51 Not Detected 23.000 - 31.345 ppm 07/05/2023 8:40 AM EDT [facility] QNR A1, A2, B2 0.000 23.000 - 30.726 ppm 07/05/2023 8:40 AM EDT [facility] QNR A1, A2, B2 Not Detected 23.000 - 30.726 ppm 07/05/2023 8:40 AM EDT [facility] SH, KPC GROUPS 0.000 23.000 - 31.647 ppm 07/05/2023 8:40 AM EDT [facility] SHV, KPC GROUPS Not Detected 23.000 - 31.647 ppm 07/05/2023 8:40 AM EDT [facility] TET B, TET M 22.096(A) 23.000 - 27.778 ppm 07/05/2023 8:40 AM EDT [facility] TET B, TET M Detected(A) 23.000 - 27.778 ppm 07/05/2023 8:40 AM EDT [facility] Randi, VanB 0.000 23.000 - 32.027 ppm 07/05/2023 8:40 AM EDT [facility] Reynaldo Bryan Not Detected 23.000 - 32.027 ppm 07/05/2023 8:40 AM EDT [facility] Urine 07/04/2023 3:25 PM EDT 07/05/2023 1:50 AM EDT us Karla CASTILLO LAB BLOOD ORDERABLES Final Resul t [facility] [address] [place] [address] * (ABNORMAL) URETHRITIS/DISCHARGE PLUS VAGINITIS (HTRX) (07/04/2023 3:23 PM EDT) [facility] ATOPOBIUM VAGINAE 18.814(A) 19.961 - 24.689 ppm 07/05/2023 9:32 AM EDT [facility] ATOPOBIUM VAGINAE Detected(A) 19.961 - 24.689 ppm 07/05/2023 9:32 AM EDT [facility] BVAB 2,3 (BACTERIAL VAGINOSIS ASSOCIATED BACTERIA 2, 3); MOBILUNCUS SPP 0.000 19.961 - 24.689 ppm 07/05/2023 9:32 AM EDT [facility] BVAB 2,3 (BACTERIAL VAGINOSIS ASSOCIATED BACTERIA 2, 3); MOBILUNCUS SPP Not Detected 19.961 - 24.689 ppm 07/05/2023 9:32 AM EDT [facility] SHOAIB ALBICANS, PARAPSILOSIS, TROPICALIS 0.000 23.000 - 30.770 ppm 07/05/2023 9:32 AM EDT [facility] SHOAIB ALBICANS, PARAPSILOSIS, TROPICALIS Not Detected 23.000 - 30.770 ppm 07/05/2023 9:32 AM EDT [facility] SHOAIB GLABRATA 0.000 23.000 - 32.138 ppm 07/05/2023 9:32 AM EDT [facility] SHOAIB GLABRATA Not Detected 23.000 - 32.138 ppm 07/05/2023 9:32 AM EDT [facility] SHOAIB KRUSEI 0.000 23.000 - 32.271 ppm 07/05/2023 9:32 AM EDT [facility] SHOAIB KRUSEI Not Detected 23.000 - 32.271 ppm 07/05/2023 9:32 AM EDT [facility] CHLAMYDIA TRACHOMATIS 0.000 23.000 - 31.467 ppm 07/05/2023 9:32 AM EDT [facility] CHLAMYDIA TRACHOMATIS Not Detected 23.000 - 31.467 ppm 07/05/2023 9:32 AM EDT [facility] GARDNERELLA VAGINALIS 18.569(A) 19.961 - 24.689 ppm 07/05/2023 9:32 AM EDT [facility] GARDNERELLA VAGINALIS Detected(A) 19.961 - 24.689 ppm 07/05/2023 9:32 AM EDT [facility] MEGASPHAERA (TYPES 1, 2) 0.000 19.961 - 24.689 ppm 07/05/2023 9:32 AM EDT [facility] MEGASPHAERA (TYPES 1, 2) Not Detected 19.961 - 24.689 ppm 07/05/2023 9:32 AM EDT [facility] NEISSERIA GONORRHOEAE 0.000 23.000 - 32.117 ppm 07/05/2023 9:32 AM EDT [facility] NEISSERIA GONORRHOEAE Not Detected 23.000 - 32.117 ppm 07/05/2023 9:32 AM EDT [facility] TRICHOMONAS VAGINALIS 0.000 23.000 - 32.119 ppm 07/05/2023 9:32 AM EDT [facility] TRICHOMONAS VAGINALIS Not Detected 23.000 - 32.119 ppm 07/05/2023 9:32 AM EDT [facility] MYCOPLASMA GENITALIUM 0.000 19.961 - 24.689 ppm 07/05/2023 9:32 AM EDT [facility] MYCOPLASMA GENITALIUM Not Detected 19.961 - 24.689 ppm 07/05/2023 9:32 AM EDT [facility] DFR (A1, A5), SUL (1,2) 0.000 23.000 - 27.000 ppm 07/05/2023 9:32 AM EDT [facility] DFR (A1, A5), SUL (1,2) Not Detected 23.000 - 27.000 ppm 07/05/2023 9:32 AM EDT [facility] ERMB, C; MEFA 17.525(A) 23.000 - 27.611 ppm 07/05/2023 9:32 AM EDT [facility] ERMB, C; MEFA Detected(A) 23.000 - 27.611 ppm 07/05/2023 9:32 AM EDT [facility] TET B, TET M 19.057(A) 23.000 - 27.778 ppm 07/05/2023 9:32 AM EDT [facility] TET B, TET M Detected(A) 23.000 - 27.778 ppm 07/05/2023 9:32 AM EDT [facility] Tissue 07/04/2023 3:23 PM EDT 07/05/2023 1:50 AM EDT us Karla CASTILLO LAB BLOOD ORDERABLES Final Resul t [facility] [address] [place] [address] * (ABNORMAL) URETHRITIS/DISCHARGE PLUS VAGINITIS (HTRX) (05/31/2023 4:59 PM EDT) ATOPOBIUM VAGINAE 0.000 19.961 - 24.689 ppm 06/01/2023 9:50 AM EDT [facility] ATOPOBIUM VAGINAE Not Detected 19.961 - 24.689 ppm 06/01/2023 9:50 AM EDT [facility] BVAB 2,3 (BACTERIAL VAGINOSIS ASSOCIATED BACTERIA 2, 3); MOBILUNCUS SPP 23.559(A) 19.961 - 24.689 ppm 06/01/2023 9:50 AM EDT [facility] BVAB 2,3 (BACTERIAL VAGINOSIS ASSOCIATED BACTERIA 2, 3); MOBILUNCUS SPP Detected(A) 19.961 - 24.689 ppm 06/01/2023 9:50 AM EDT [facility] SHOAIB ALBICANS, PARAPSILOSIS, TROPICALIS 0.000 23.000 - 30.770 ppm 06/01/2023 9:50 AM EDT [facility] SHOAIB ALBICANS, PARAPSILOSIS, TROPICALIS Not Detected 23.000 - 30.770 ppm 06/01/2023 9:50 AM EDT [facility] SHOAIB GLABRATA 0.000 23.000 - 32.138 ppm 06/01/2023 9:50 AM EDT [facility] SHOAIB GLABRATA Not Detected 23.000 - 32.138 ppm 06/01/2023 9:50 AM EDT [facility] SHOAIB KRUSEI 0.000 23.000 - 32.271 ppm 06/01/2023 9:50 AM EDT [facility] SHOAIB KRUSEI Not Detected 23.000 - 32.271 ppm 06/01/2023 9:50 AM EDT [facility] CHLAMYDIA TRACHOMATIS 0.000 23.000 - 31.467 ppm 06/01/2023 9:50 AM EDT [facility] CHLAMYDIA TRACHOMATIS Not Detected 23.000 - 31.467 ppm 06/01/2023 9:50 AM EDT [facility] GARDNERELLA VAGINALIS 0.000 19.961 - 24.689 ppm 06/01/2023 9:50 AM EDT [facility] GARDNERELLA VAGINALIS Not Detected 19.961 - 24.689 ppm 06/01/2023 9:50 AM EDT [facility] MEGASPHAERA (TYPES 1, 2) 0.000 19.961 - 24.689 ppm 06/01/2023 9:50 AM EDT [facility] MEGASPHAERA (TYPES 1, 2) Not Detected 19.961 - 24.689 ppm 06/01/2023 9:50 AM EDT [facility] NEISSERIA GONORRHOEAE 0.000 23.000 - 32.117 ppm 06/01/2023 9:50 AM EDT [facility] NEISSERIA GONORRHOEAE Not Detected 23.000 - 32.117 ppm 06/01/2023 9:50 AM EDT [facility] TRICHOMONAS VAGINALIS 0.000 23.000 - 32.119 ppm 06/01/2023 9:50 AM EDT [facility] TRICHOMONAS VAGINALIS Not Detected 23.000 - 32.119 ppm 06/01/2023 9:50 AM EDT [facility] MYCOPLASMA GENITALIUM 0.000 19.961 - 24.689 ppm 06/01/2023 9:50 AM EDT [facility] MYCOPLASMA GENITALIUM Not Detected 19.961 - 24.689 ppm 06/01/2023 9:50 AM EDT [facility] DFR (A1, A5), SUL (1,2) 0.000 23.000 - 27.000 ppm 06/01/2023 9:50 AM EDT [facility] DFR (A1, A5), SUL (1,2) Not Detected 23.000 - 27.000 ppm 06/01/2023 9:50 AM EDT [facility] ERMB, C; MEFA 0.000 23.000 - 27.611 ppm 06/01/2023 9:50 AM EDT [facility] ERMB, C; MEFA Not Detected 23.000 - 27.611 ppm 06/01/2023 9:50 AM EDT [facility] TET B, TET M 0.000 23.000 - 27.778 ppm 06/01/2023 9:50 AM EDT [facility] TET B, TET M Not Detected 23.000 - 27.778 ppm 06/01/2023 9:50 AM EDT [facility] Tissue 05/31/2023 4:59 PM EDT 06/01/2023 2:17 AM EDT us Ha Baker DO LAB BLOOD ORDERABLES Final Resul t [facility]note 3[facility] [address] [place] [address] * (ABNORMAL) URETHRITIS/DISCHARGE PLUS VAGINITIS (HTRX) (01/26/2023 3:21 PM EST) CHLAMYDIA TRACHOMATIS 0 10.500 - 32.000 PPM CHLAMYDIA TRACHOMATIS NOT DETECTED TRICHOMONAS VAGINALIS 0 10.500 - 32.000 PPM TRICHOMONAS VAGINALIS NOT DETECTED ERMB, C; MEFA 16.871(A) PPM ERMB, C; MEFA DETECTED(A) TET B, TET M 18.914(A) PPM TET B, TET M DETECTED(A) DFR (A1, A5), SUL (1,2) 0 PPM DFR (A1, A5), SUL (1,2) NOT DETECTED NEISSERIA GONORRHOEAE 0 10.500 - 32.000 PPM NEISSERIA GONORRHOEAE NOT DETECTED BVAB 2,3 (BACTERIAL VAGINOSIS ASSOCIATED BACTERIA 2, 3); MOBILUNCUS SPP 0 10.500 - 32.000 PPM BVAB 2,3 (BACTERIAL VAGINOSIS ASSOCIATED BACTERIA 2, 3); MOBILUNCUS SPP NOT DETECTED GARDNERELLA VAGINALIS 23.828(A) 10.500 - 32.000 PPM GARDNERELLA VAGINALIS DETECTED(A) MEGASPHAERA (TYPES 1, 2) 0 10.500 - 32.000 PPM MEGASPHAERA (TYPES 1, 2) NOT DETECTED ATOPOBIUM VAGINAE 12.698(A) 10.500 - 32.000 PPM ATOPOBIUM VAGINAE DETECTED(A) SHOAIB ALBICANS, PARAPSILOSIS, TROPICALIS 0 10.500 - 32.000 PPM SHOAIB ALBICANS, PARAPSILOSIS, TROPICALIS NOT DETECTED SHOAIB GLABRATA 0 10.500 - 32.000 PPM SHOAIB GLABRATA NOT DETECTED SHOAIB KRUSEI 0 10.500 - 32.000 PPM SHOAIB KRUSEI NOT DETECTED MYCOPLASMA GENITALIUM 0 10.500 - 32.000 PPM MYCOPLASMA GENITALIUM NOT DETECTED 01/26/2023 3:21 PM EST 01/27/2023 1:49 AM EST us Ha Samuel DO LAB BLOOD ORDERABLES Final Resul t [facility] * (ABNORMAL) [facility] ([facility]) (12/01/2022 1:14 PM EDT) TSH 7.73(H) 0.49 - 4.67 uIU/mL [facility] Comment:PERFORMED AT [facility] [address],[place] [address] 12/01/2022 1:14 PM EDT 12/01/2022 1:15 PM EDT us Ha Samuel DO LAB BLOOD ORDERABLES Final Resul t Performing Organization Address City/[facility] Co de Phone Number [facility] * US OB 14+ weeks anatomy scan (08/24/2022 10:26 AM EDT) Anatomical Region Laterality Modality Body Ultrasound 08/24/2022 10:2 6 AM EDT Narrative 08/24/2022 10:25 AM EDT THIS EXAM WAS PERFORMED AT [facility] REPORT (Signed Final 08/24/2022 10:25) PATIENT INFO: ID #: [id number] : [birth year] (27 yrs)(F) Name: BRITTNEE CANNON Visit Date: 08/24/2022 09:23 YSASI PERFORMED BY: Attending: Thao Callahan MD, [facility] Performed By: Herminia Armenta RDMS Referred By: Ha Rodríguez. Address: [address] [place] [address] 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 Cord Insertion: Eccentric (>2cm from edge) Largest Pocket(cm) 6.56 BIOMETRY: BPD: 74.2 mm G.Age: 29w 5d 72 % OFD: 96.4 mm HC: 272.3 mm G.Age: 29w 5d 48 % AC: 256.4 mm G.Age: 29w 6d 76 % FL: 54.5 mm G.Age: 28w 6d 37 % HUM: 53 mm G.Age: 30w 6d 90 % CER: 34.4 mm G.Age: 29w 0d 59 % LV: 4.4 mm CM: 5.9 mm TIB: 48.7 mm G.Age: 29w 2d 64 % CI: 77.0 % 70 - 86 FL/HC: 20.0 % 19.6 - 20.8 HC/AC: 1.06 0.99 - 1.21 FL/BPD: 73.5 % 71 - 87 FL/AC: 21.3 % 20 - 24 Est. FW: 1399 gm 3 lb 1 oz 66 % OB HISTORY: : 3 Term: 2 Livin GESTATIONAL AGE: LMP: 30w 3d Date: 01/23/22 GARRETT: 10/30/22 U/S Today: 29w 4d GARRETT: 11/05/22 Best: 28w 5d Det. By: Early GARRETT: 11/11/22 Ultrasound (03/31/22) TARGETED ANATOMY: Central Nervous System Calvarium/Cranial V.: Appears normal Intracranial Amy: Appears normal Cavum: Appears normal Parenchyma: Appears normal Lateral Ventricles: Appears normal Choroid Plexus: Appears normal Cereb./Vermis: Appears normal Cisterna Magna: Appears normal Midline Falx: Appears normal Spine Cervical: Appears normal Thoracic: Appears normal Lumbar: Appears normal Sacral: Appears normal Shape/Curvature: Appears normal Head/Neck Face: Appears normal Lips: Appears normal Neck: Appears normal Nuchal Fold: Not evaluated d/t GA Nasal Bone: Appears normal Profile: Appears normal Orbits/Eyes: Appears normal Mandible: Appears normal Maxilla: Appears normal Thorax Thoracic Contour: Appears normal Lungs: Appears normal 4 Chamber View: Appears normal Cardiac Activity: Appears normal Cardiac Rhythm: Normal Cardiac Situs: Appears normal Rt Outflow Tract: Appears normal Lt Outflow Tract: Appears normal Aortic Arch: Appears normal Ductal Arch: Appears normal SVC: Appears normal Interventr. Septum: Appears Normal Cardiac Tipton: Normal Diaphragm: Appears normal 3 Vessel View: Appears normal 3 V Trachea View: Appears Normal IVC: Appears normal Crossing: Appears normal Abdomen Ventral Wall: Appears normal Cord Insertion: Appears normal Situs: Appears normal Stomach: Appears normal Lt Kidney: Appears normal Rt Kidney: Appears normal Bladder: Appears normal Bowel: Appears normal Extremities Lt Humerus: Appears normal Rt Humerus: Appears normal Lt Forearm: Appears normal Rt Forearm: Appears normal Lt Hand: Appears normal Rt Hand: Appears normal Lt Femur: Appears normal Rt Femur: Appears normal Lt Lower Leg: Appears normal Rt Lower Leg: Appears normal Lt Foot: Appears normal Rt Foot: Appears normal Other Umbilical Cord: Appear normal Masses: None visualized Genitalia: Female CERVIX UTERUS ADNEXA: Cervix Not visualized due to late gest. age Uterus Gravid uterus Right Ovary Not visualized Left Ovary Not visualized Adnexa No adnexal masses identified COMMENTS: 1. Ultrasound is not diagnostic for chromosomal abnormalities, will not detect all structural abnormalities, and is not diagnostic for genetic disorders even if multiple exams are performed during a given . 2. Images of optimal diagnostic quality could not be obtained. BMI - 38. Thao Callahan MD, [facility] Electronically Signed Final Report 08/24/2022 10:25 IMPRESSION: 1. Single intrauterine , size consistent with assigned GARRETT. 2. No sonographic evidence of gross structural abnormality disclosed. 3. Amniotic fluid volume assessment (DVP) is normal. RECOMMENDATIONS: 1. Please see M consultation documentation from today's encounter. 2. Subsequent follow up or other follow up as clinically determined by primary OB provider unless otherwise specified by MFM. 3. Results forwarded to ordering provider so they can follow up with the patient as necessary. Procedure Note Radiology, Radiologist, - 08/24/2022 [facility] (Signed Final 08/24/2022 10:25) PATIENT INFO: ID #: [id number] : [birth year] (27 yrs)(F) Name: BRITTNEE CANNON Visit Date: 08/24/2022 09:23 YSASI PERFORMED BY: Attending: Thao Callahan MD, [facility] Performed By: Herminia Armenta RDMS Referred By: Ha Baker DO Ref. Address: [address] [place] [address] 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 Cord Insertion: Eccentric (>2cm from edge) Largest Pocket(cm) 6.56 BIOMETRY: BPD: 74.2 mm G.Age: 29w 5d 72 % OFD: 96.4 mm HC: 272.3 mm G.Age: 29w 5d 48 % AC: 256.4 mm G.Age: 29w 6d 76 % FL: 54.5 mm G.Age: 28w 6d 37 % HUM: 53 mm G.Age: 30w 6d 90 % CER: 34.4 mm G.Age: 29w 0d 59 % LV: 4.4 mm CM: 5.9 mm TIB: 48.7 mm G.Age: 29w 2d 64 % CI: 77.0 % 70 - 86 FL/HC: 20.0 % 19.6 - 20.8 HC/AC: 1.06 0.99 - 1.21 FL/BPD: 73.5 % 71 - 87 FL/AC: 21.3 % 20 - 24 Est. FW: 1399 gm 3 lb 1 oz 66 % OB HISTORY: : 3 Term: 2 Livin GESTATIONAL AGE: LMP: 30w 3d Date: 01/23/22 GARRETT: 10/30/22 U/S Today: 29w 4d GARRETT: 11/05/22 Best: 28w 5d Det. By: Early GARRETT: 11/11/22 Ultrasound (03/31/22) TARGETED ANATOMY: Central Nervous System Calvarium/Cranial V.: Appears normal Intracranial Amy: Appears normal Cavum: Appears normal Parenchyma: Appears normal Lateral Ventricles: Appears normal Choroid Plexus: Appears normal Cereb./Vermis: Appears normal Cisterna Magna: Appears normal Midline Falx: Appears normal Spine Cervical: Appears normal Thoracic: Appears normal Lumbar: Appears normal Sacral: Appears normal Shape/Curvature: Appears normal Head/Neck Face: Appears normal Lips: Appears normal Neck: Appears normal Nuchal Fold: Not evaluated d/t GA Nasal Bone: Appears normal Profile: Appears normal Orbits/Eyes: Appears normal Mandible: Appears normal Maxilla: Appears normal Thorax Thoracic Contour: Appears normal Lungs: Appears normal 4 Chamber View: Appears normal Cardiac Activity: Appears normal Cardiac Rhythm: Normal Cardiac Situs: Appears normal Rt Outflow Tract: Appears normal Lt Outflow Tract: Appears normal Aortic Arch: Appears normal Ductal Arch: Appears normal SVC: Appears normal Interventr. Septum: Appears Normal Cardiac Tipton: Normal Diaphragm: Appears normal 3 Vessel View: Appears normal 3 V Trachea View: Appears Normal IVC: Appears normal Crossing: Appears normal Abdomen Ventral Wall: Appears normal Cord Insertion: Appears normal Situs: Appears normal Stomach: Appears normal Lt Kidney: Appears normal Rt Kidney: Appears normal Bladder: Appears normal Bowel: Appears normal Extremities Lt Humerus: Appears normal Rt Humerus: Appears normal Lt Forearm: Appears normal Rt Forearm: Appears normal Lt Hand: Appears normal Rt Hand: Appears normal Lt Femur: Appears normal Rt Femur: Appears normal Lt Lower Leg: Appears normal Rt Lower Leg: Appears normal Lt Foot: Appears normal Rt Foot: Appears normal Other Umbilical Cord: Appear normal Masses: None visualized Genitalia: Female CERVIX UTERUS ADNEXA: Cervix Not visualized due to late gest. age Uterus Gravid uterus Right Ovary Not visualized Left Ovary Not visualized Adnexa No adnexal masses identified COMMENTS: 1. Ultrasound is not diagnostic for chromosomal abnormalities, will not detect all structural abnormalities, and is not diagnostic for genetic disorders even if multiple exams are performed during a given . 2. Images of optimal diagnostic quality could not be obtained. BMI - 38. Thao Callahan MD, [facility] Electronically Signed Final Report 08/24/2022 10:25 IMPRESSION: 1. Single intrauterine , size consistent with assigned GARRETT. 2. No sonographic evidence of gross structural abnormality disclosed. 3. Amniotic fluid volume assessment (DVP) is normal. RECOMMENDATIONS: 1. Please see [facility] consultation documentation from today's encounter. 2. Subsequent follow up or other follow up as clinically determined by primary OB provider unless otherwise specified by [facility]. 3. Results forwarded to ordering provider so they can follow up with the patient as necessary. us Ha PECK OB US PROCEDURES Final Resul t documented in this encounter Visit Diagnoses Not on filedocumented in this encounter
--- OUTSIDE RECORDS SUMMARY | 2024-08-19 13:34 | XMS_ITS | Encounter Summary ---
Author Organization [facility] Address [address] [place] [address] Care Team Providers Care Roofing Superintendent Name Role Phone Unavailable Primary Care Provider Unavailabl e Encounter Details Date Type Department Care Team (Late Contact Info) Description 09/22/2022 Abstract [facility] OB [address] [facility] [place] [address] Karla Matthews PA [address] [place] [address] Dr Francois, [facility]11 Social History Tobacco Use Types Packs/Day Years Used Date Smoking Tobacco: Never Alcohol Use Standard Drinks/Week Comments Yes 0 (1 standard drink = 0.6 oz pure alcohol) Alcohol: 1 or 2 drinks, 2 to 4 times a month; Caffeine: 1 can /week Comments Yes Sex and Gender Information Value [...] suspected to have Coronavirus/COVID-19? No / Unsure 09/16/2022 10:55 AM EDT documented as of this encounter Plan of Treatment Upcoming Encounters Date Type Department Care Team (Late Contact Info) Description 09/05/2024 1:00 PM EDT Ancillary Procedure [facility] [address] [place] [address] 09/05/2024 1:30 PM EDT Initial [facility] [address] [facility] [place] [address] 10/04/2024 10:40 AM EDT Office Visit [facility] [address] [place] [address] Allen Carr MD [address] [place] [address] documented as of this encounter Visit Diagnoses Not on filedocumented in this encounter
--- OUTSIDE RECORDS SUMMARY | 2024-08-19 13:34 | XMS_ITS | Encounter Summary ---
Author Organization [facility] Address [address] [place] [address] Care Team Providers Care Undercoat Sprayer Name Role Phone Unavailable Primary Care Provider Unavailabl e Encounter Details Date Type Department Care Team (Late Contact Info) Description 09/06/2022 Abstract [facility] OB [address] [place] [address] Ha Baker [facility] [address] Aguirre, [facility]11 Social History Tobacco Use Types Packs/Day Years [...] suspected to have Coronavirus/COVID-19? No / Unsure 09/05/2022 7:43 PM EDT documented as of this encounter Plan of Treatment Upcoming Encounters Date Type Department Care Team (Late Contact Info) Description 09/05/2024 1:00 PM EDT Ancillary Procedure [facility] OB [address] [place] [address] 09/05/2024 1:30 PM EDT Initial [facility] [address] [facility] [place] [address] 10/04/2024 10:40 AM EDT Office Visit [facility] [address] [place] [address] Allen Carr MD [address] [place] [address] documented as of this encounter Visit Diagnoses Not on filedocumented in this encounter
--- OUTSIDE RECORDS SUMMARY | 2024-08-19 13:34 | XMS_ITS | Encounter Summary ---
Author Organization [facility] Address [address] [place] [address] Care Team Providers Care Sap Treasury Consultant Name Role Phone Unavailable Primary Care Provider Unavailabl e Encounter Details Date Type Department Care Team (Late Contact Info) Description 07/29/2022 Orders Only [facility] OB [address] [place] [address] Provider, MD Mihir [address] [place], [place] [id number] Social History Tobacco Use Types Packs/Day Years Used Date Smoking Tobacco: Never Assessed Comments Yes Sex and Gender Information Value Date Recorded Sex Assigned at Female 07/26/2022 8:23 AM EDT Legal Sex Female 7:11 PM EDT Gender Identity Female 07/26/2022 8:23 AM EDT Sexual Orientation Straight 07/26/2022 8: 23 AM EDT COVID-19 Exposure Response Date Recorded In the last 10 days, have yo u been in contact with someone who was confirmed or suspected to have Coronavirus/COVID-19? No / Unsure 07/26/2022 8:36 AM EDT documented as of this encounter Plan of Treatment Upcoming Encounters Date Type Department Care Team (Late st Contact Info) Description 09/05/2024 1:00 PM EDT Ancillary Procedure [facility] OB [address] [place] [address] 09/05/2024 1:30 PM EDT Initial [facility] OB [address] [place] [address] 10/04/2024 10:40 AM EDT Office Visit [facility] [address] [place] [address] Allen Carr MD [address] [place] [address] documented as of this encounter Procedures Procedure Name Priority Date/Time Associated Diagnosis Comments CHLAMYDIA DNA PROBE, DIRECT Routine 07/26/2022 12:22 PM EDT documented in this encounter Results * Chlamydia DNA probe, direct (07/26/2022 12:22 PM EDT) Swab Vaginal structure / Unknown us Historical Provider LAB MICROBIOLOGY - GENERA L ORDERABLES Final Result documented in this encounter Visit Diagnoses Not on filedocumented in this encounter
--- OUTSIDE RECORDS SUMMARY | 2024-08-19 13:34 | XMS_ITS | Clinical Summary ---
Author Organization [facility] Address [address] [place] [address] Care Team Providers Care Transmission Mechanic Name Role Phone Unavailable Primary Care Provider Unavailabl e Allergies Active Allergy Reactions Criticality Noted Date Comments Other Rash,Other Low 10/20/2022 PEDIAZOLE Sulfa Antibiotics Other,Rash Medium 07/19/2011 Other Reaction(s): Unknown Sulfamethoxazole Rash Low 08/18/2022 Medications levothyroxine (Synthroid) 300 MCG tabletIndication s:Hypothyroidism , unspecified type Take 1 tablet (300 mcg) by mouth in the morning. Take before meals. 360 tablet 3 Active fluticasone (Flonase) 50 MCG/ACT nasal spray Administer 1 spray into each nostril Daily Shake gently. Before first use, prime pump. After use, clean tip and replace cap. Active Synthroid 300 MCG tabletIndication s:Alfredo's disease,Thyroid disease during , first trimester (HCC) Take 1 tablet (300 mcg) by mouth Daily 90 tablet 1 5 02/06/20 25 Active Hospital, Clinic, or Other Facility Administered Medication Ordered Dose Route Frequency Start Date End Date Status Levonorgestrel intrauterine device 52 mgIndications:Encounter for IUD insertion 52 mg IU Continuous 12/26/2022 Active Active Problems Problem Noted Date Diagnosed Date Acute bronchitis 05/13/2024 Acute streptococcal pharyngitis 05/13/2024 Exposure to STD 05/31/2023 Encounter for weight management 05/31/2023 Anemia 07/26/2022 Cluster headache syndrome 07/26/2022 Congenital hypothyroidism without goiter 023 Missed period 07/26/2022 Unable to comply with treatment 07/26/2022 Obesity affecting , antepartum (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 Encounter for childhood immunizations appropriat e for age 0708/30/2007 Dermatitis, atopic 08/04/2005 Allergic rhinitis 02/18/2000 Asthma 02/18/2000 Hypothyroid 1993 Resolved Problems Problem Noted Date Diagnosed Date Resolved Date -induced hypertension ([facility]) 04/29/2018 11/04/2022 Anemia of ([facility]) 04/24/2018 11/04/2022 Encounters Date Type Department Care Team Description 08/15/2024 Telephone [facility] OB [address] [facility] [place] [address] Marcie Flannery LPN 08/09/2024 11:10 AM EDT Office Visit [facility] [address] [place] [address] Allen Carr MD Alfredo's disease (Primary Dx); Vitamin D deficiency; Encounter for dietary consultation; Class 3 severe obesity due to excess calories without serious comorbidity with body mass index (BMI) of 40.0 to 44.9 in adult ([facility]); Thyroid disease during , first trimester ([facility]); Hypothyroidism, unspecified type 08/09/2024 Bamboo flowsheet [facility] [address] [place] [address] Allen Carr MD from Last 3 Months Immunizations Immunization Administration Dates Next Due Tdap 08/04/2005 Family History Medical History Relation Name Comments Hypothyroidism Father Diabetes Maternal Grandfather Grandpa Diabetes Other paternal aunts Thyroid disease Other paternal chantelle e Lymphoma Paternal Grandfather Relation Name Status Comments Father Alive Maternal Grandfather Grandpa Mother Alive Other Paternal Grandfather Social History Tobacco Use Types Packs/Day Years Used Date Smoking Tobacco: Never Smokeless Tobacco: Never Tobacco Cessation:Counseling Given: Not Answered Alcohol Use Standard Drinks/Week Comments Yes 2 [...] Orientation Straight 07/26/2022 8: 23 AM EDT Last Filed Vital Signs Vital Sign Reading Time Taken Comments Blood Pressure 116/74 03/26/2024 1:29 PM EST Pulse 93 08/09/2024 11:20 AM EDT Temperature - - Respiratory Rate 16 08/09/2024 11:20 AM EDT Oxygen Saturation 99% 08/09/2024 11:20 AM EDT Inhaled Oxygen Concentration - - Weight 106 kg (234 lb) 08/09/2024 11:20 AM EDT Height 162.6 cm (5' 4 ) 08/09/2024 11:20 AM EDT Body Mass Index 40.17 08/09/2024 11:20 AM EDT Plan of Treatment Upcoming Encounters Date Type Department Care Team (Late st Contact Info) Description 09/05/2024 1:00 PM EDT Ancillary Procedure [facility] [address] [place] [address] 09/05/2024 1:30 PM EDT Initial [facility] [address] [place] [address] 10/04/2024 10:40 AM EDT Office Visit [facility] [address] [place] [address] Allen Carr MD [address] [place] [address] Procedures Procedure Name Priority Date/Time Associated Diagnosis Comments TSH Routine 08/09/2024 12:09 PM EDT Alfredo's disease Thyroid disease during , first trimester (HCC) T4, FREE Routine 08/09/2024 12:09 PM EDT Alfredo's disease Thyroid disease during , first trimester (HCC) T3, FREE Routine 08/09/2024 12:09 PM EDT Alfredo's disease Thyroid disease during , first trimester (HCC) from Last 3 Months Results * T3, free (08/09/2024 12:09 PM EDT) T3, FREE 2.4 2.0 - 4.4 pg/mL [facility] Blood Venous blood specimen / Unknown 08/09/2024 12:09 PM EDT 08/09/2024 Narrative [facility] - 08/10/2024 4:35 AM EDT Performed at: [address] [place] [address] [id number] Band Director: Atul Duvall PhD, Phone: [employer] Allen Carr MD LAB BLOOD ORDERABLES Final Re sult Performing Organization Address [facility] de Phone Number [facility] * TSH (08/09/2024 12:09 PM EDT) TSH 3.130 0.450 - 4.500 uIU/mL [facility] Blood Venous blood specimen / Unknown 08/09/2024 12:09 PM EDT 08/09/2024 Narrative [facility] - 08/10/2024 4:35 AM EDT Performed at: [address] [place] [address] [id number] Band Director: Atul Duvall PhD, Phone: [phone] Allen Carr MD LAB BLOOD ORDERABLES Final Re sult Performing Organization Address [facility] de Phone Number [facility] * (ABNORMAL) T4, free (08/09/2024 12:09 PM EDT) T4Free(Direct) 0.77(L) 0.82 - 1.77 ng/dL [facility] Blood Venous blood specimen / Unknown 08/09/2024 12:09 PM EDT 08/09/2024 Narrative [facility] - 08/10/2024 4:35 AM EDT Performed at: - [facility] [id number] Band Director: Atul Duvall PhD, Phone: [phone] us Allen Carr MD LAB BLOOD ORDERABLES Final Re sult [facility] from Last 3 Months
--- OUTSIDE RECORDS SUMMARY | 2024-08-19 13:34 | XMS_ITS | Encounter Summary ---
Author Organization [facility] tem Address [id number] [address] [place] [address] Care Team Providers Care Steel Melter Name Role Phone No Pcp, No Pcp Primary Care Provider Unavailabl e Encounter Details Date Type Department Care Team (Late st Contact Info) Description 08/24/2022 Orders Only Maternal- Medicine at [facility] [address] [place] [id number] Ref Prov, [place] [address] Social History Tobacco Use Types Packs/Day Years Used Date Smoking Tobacco: Never Smokeless Tobacco: Never Alcohol Use Standard Drinks/Week Comments Not Currently 0 (1 standard drink = 0.6 oz pur e alcohol) Childcare Answer Date Recorded Childcare Unknown 08/08/2018 Employment Answer Date Recorded Employment Unknown 08/08/2018 Hunger Screening Answer Date Recorded Within the past 12 months we worried whether our food would run out before we got money to buy more. Never True 08/24/2022 Within the past 12 months th e food we bought just didn't last and we didn't have money to get more. Never True 08/24/2022 Comments Yes Sex and Gender Information Value Date Recorded Sex Assigned at Not on file Legal Sex Female 11:49 AM EDT Gender Identity Not on file Sexual Orientation Not on file documented as of this encounter Plan of Treatment Not on file documented as of this encounter Procedures Procedure Name Priority Date/Time Associated Diagnosis Comments AFP SINGLE MARKER SCRN, MATE RNAL, SERUM Routine 06/29/2022 documented in this encounter Results * AFP Single Marker Scrn, Maternal, Serum (06/29/2022) us Not In System Ref Prov LAB BLOOD ORDERABLES Nithya l Result MANUALLY TRANSCRIBED RESULTS documented in this encounter Visit Diagnoses Not on filedocumented in this encounter Care Teams Steel Melter Relationship Specialty Start Date End Date No Pcp, [place] [address] PCP - General Family Medicine 04/28/22 documented as of this encounter
--- OUTSIDE RECORDS SUMMARY | 2024-08-19 13:34 | XMS_ITS | Encounter Summary ---
Author Organization [facility] Address [address] [place] [address] Care Team Providers Care Slide Attendant Name Role Phone Unavailable Primary Care Provider Unavailabl e Encounter Details Date Type Department Care Team (Late Contact Info) Description 08/09/2024 Bamboo flowsheet [facility] [address] [place] [address] Allen Carr MD [address] [place] [address] Social History Tobacco Use Types Packs/Day Years [...] 09/05/2024 1:00 PM EDT Ancillary Procedure [facility] OB [address] [place] [address] 09/05/2024 1:30 PM EDT Initial [facility] OB [address] [place] [address] 10/04/2024 10:40 AM EDT Office Visit [facility] [address] [place] [address] Allen Carr MD [address] [place] [address] documented as of this encounter Visit Diagnoses Not on filedocumented in this encounter
--- OUTSIDE RECORDS SUMMARY | 2024-08-19 13:34 | XMS_ITS | Encounter Summary ---
Author Organization [facility] Address [address] [place] [address] Care Team Providers Care Musical String Maker Name Role Phone Unavailable Primary Care Provider Unavailabl e Encounter Details Date Type Department Care Team (Late Contact Info) Description 09/06/2022 Abstract [facility] OB [address] [place] [address] Ha Baker [facility] [address] Aguirre, [id number] Social History Tobacco Use Types Packs/Day Years [...] 09/05/2024 1:00 PM EDT Ancillary Procedure [facility] OB [address] [place] [address] 09/05/2024 1:30 PM EDT Initial [facility] [address] [facility] [place] [address] 10/04/2024 10:40 AM EDT Office Visit [facility] [address] [place] [address] Allen Carr MD [address] [place] [address] documented as of this encounter Visit Diagnoses Not on filedocumented in this encounter
--- OUTSIDE RECORDS SUMMARY | 2024-08-19 13:34 | XMS_ITS | Encounter Summary ---
Author Organization [facility] Address [address] [facility] [place] [address] Care Team Providers Care Finance Clerk Name Role Phone Unavailable Primary Care Provider Unavailabl e Encounter Details Date Type Department Care Team ([facility] Contact Info) Description 08/15/2024 Telephone [facility] [address] [place] [address] Marcie Flannery LPN [address] [place] [place] [address] Social History Tobacco Use Types Packs/Day Years [...] AM EDT documented as of this encounter Miscellaneous Notes * Telephone Encounter - Marcie Flannery LPN - 08/15/2024 3:51 PM EDT Pt called stating that she is and wants to get setup with an OB intake with us. I told herthat we can get HCG level and we can transfer her upfront to schedule.PVU documented in this encounter Plan of Treatment Upcoming Encounters Date Type Department Care Team (Late st Contact Info) Description 09/05/2024 1:00 PM EDT Ancillary Procedure [facility] [address] [facility] [address] 09/05/2024 1:30 PM EDT Initial [facility] OB [address] [facility] [address] 10/04/2024 10:40 AM EDT Office Visit [facility] [address] [place] [address] Allen Carr MD [address] [place] [address] Scheduled Orders Name Type Priority Associated Diagnoses Orde r Schedule hCG, quantitative, Lab Routine Positive urine test ([facility]) Expected: 08/15/2024 (Approximate), Expires: 08/15/2025 documented as of this encounter Visit Diagnoses Diagnosis Positive urine test ([facility]) documented in this encounter
--- OUTSIDE RECORDS SUMMARY | 2024-08-19 13:34 | XMS_ITS | Patient Health Record ---
Author Organization [facility] Address [address] [place] [address] Care Team Providers Care Aircraft Assembler Name Role Phone emmy schultz Unavailable [phone] Allergies Allergen (clinical drug ingredient) Drug/Non Drug Allergy documented on EMR Reaction Allergy Type Onset Date Status Substance with sulfonamide structure and antibacterial mechanism of action (substance) sulfa (uncoded) Unknown Allergy Active Pediazole Unknown Drug Allergy Active Reason For Referral No Information Medications Medication SIG (Take, Route, Fr equency, Duration) Notes Start Date End Date Status Synthroid 200 MCG 1 tablet on an empty stomach in the morning Orally Once a day for 30 day(s) 08/14/2018 Active Mobic 15 MG 1 tablet Orally Once a day for 30 day(s) Active Social History Alcohol Screening: Question Answer Notes Did you have a drink contain ing alcohol in the past year? Yes How often did you have a dri nk containing alcohol in the past year? Monthly or less (1 point) Points 1 Interpretation Negative Problems Problem Type SNOMED Code ICD Code Onset Dates Problem Status W/U Status Risk Notes Problem 597179177 Obesity (BMI 35.0-39.9 without comorbidity) (E66.9) Active confirmed Plan Of Treatment Pending Test Test Name Order Date X ray : Spines, lumbosacral 08/14/2018 URINE RAPID TEST 08/14/2018 CMP Comprehensive Metabolic Panel w/ eGF R (60673) [facility] 08/14/2018 Lipid Panel w/ Reflex to Direct LDL (148 52) [facility] 08/14/2018 Vitamin D, 25-Hydroxy, Total, Immunoassa y (54536) - [facility] 08/14/2018 HEMOGLOBIN A1c (496) [facility] 08/14/2018 UA Urinalysis Complete (2977) [facility] 07/28 CBC (includes Differential and Platelets ) (6399) [facility] 08/14/2018 TSH and FREE T4 (88416) [facility] 08/14/2018 Insurance Providers Payer Name Payer Address Payer Phone Subscriber Number Group Number Insured Name Patient Relationship to Insured Coverage Start Date Coverage End Date [employer] [facility] PPO/POS/ HMO [employer] [address] [place] [address] [phone] [id number] Raya Mathur Self - patient is the insured Medical (General) History Medical History History ICD Code high blood pressure THYROID DISORDER Surgical History Surgery Date(Month/Year) right hand surgery 10/11 Hospitalization History Reason Date(Month/Year) broken hand 09/10 induced 05/17/18
--- OUTSIDE RECORDS SUMMARY | 2024-08-19 13:34 | XMS_ITS | Encounter Summary ---
Author Organization [facility] Address [address] [place] [address] Care Team Providers Care Assembler 1St Shift Name Role Phone Unavailable Primary Care Provider Unavailabl e Encounter Details Date Type Department Care Team (Late Contact Info) Description 02/01/2023 Clinisync Result Encounter [facility] Unsolicited Ivy Baker DO [address] [place] [address] Social History Tobacco Use Types Packs/Day Years [...] suspected to have Coronavirus/COVID-19? No / Unsure 02/01/2023 6:52 AM EST documented as of this encounter Plan of Treatment Upcoming Encounters Date Type Department Care Team (Late Contact Info) Description 09/05/2024 1:00 PM EDT Ancillary Procedure [facility] [address] [place] [phone] 09/05/2024 1:30 PM EDT Initial [facility] [address] [place] [address] 10/04/2024 10:40 AM EDT Office Visit [facility] [address] [place] [phone] Allen Carr MD [address] [place] [address] documented as of this encounter Procedures Procedure Name Priority Date/Time Associated Diagnosis Comments US PELVIS TRANSVAGINAL 02/01/2023 10:00 AM EST documented in this encounter Results * US PELVIS TRANSVAGINAL (02/01/2023 10:00 AM EST) Anatomical Region Laterality Modality Other 02/01/2023 10:0 0 AM EST Narrative 02/01/2023 10:03 AM EST The [address] [address] Ultrasound Report Signed Patient: BRITTNEE SMITH MR#: [id number] : 1995 Acct:[id number] Age/Sex: 27 / F ADM Date: 02/01/23 Loc: US Attending Dr: Ivy Baker D.O. Ordering Physician: Ivy Baker D.O. Date of Service: 02/01/23 Procedure(s): US pelvis transvaginal Accession Number(s): [id number] cc: Ivy Baker D.O.; Physician,Non-Staff M.D. The [address] [address] Patient Name: BRITTNEE SMITH MRN: [id number] date: 1995 Sex: F Assigned Patient Location: US Current Patient Location: US Accession/Order Number: [id number] Exam Date: 02/01/2023 09:11 Report Date: 02/01/2023 10:00 At the request of: IVY BAKER Procedure: US pelvis transvaginal EXAM: Pelvic ultrasound HISTORY: . IUD PLACEMENT . COMPARISON: None. TECHNIQUE: Transvaginal scanning was performed FINDINGS: Scanning of the pelvis demonstrates the uterus to be retroverted and measures 9.2 x 4.7 x 6.5 cm. Endometrial complex measures 14 mm in its maximal AP dimension. There is an IUD noted within the endometrial cavity of the uterus which appears in adequate position. Right ovary measures 3.5 x 2.2 x 3.6 cm. Color-flow is noted. Follicles are noted. No masses are noted. Left ovary measures 4.3 x 2.6 x 3.6 cm. Color-flow is noted. There is a 1.6 x 2 cm simple cyst involving the left ovary. No fluid is noted in the cul-de-sac. US/US pelvis transvaginal IMPRESSION: 1. Endometrial complex is prominent measuring 14 mm. Findings could be due to the patient's menstrual cycle or endometrial hyperplasia. 2. IUD is in place. 3. Normal right ovary. 4. 2 cm simple cyst involving the left ovary. Electronically authenticated by: JENN RAMSEY Date: 02/01/2023 10:00 Dictated By: Jenn Ramsey M.D. Signed By: 02/01/23 1003 DD/ 1000 TD/TT: Group Sales Representative: Procedure Note Radiology, Radiologist, MD - 02/01/2023 [place] [address] Ultrasound Report Signed Patient: BRITTNEE SMITH [facility]#: [id number] : 1995Acct:[id number] Age/Sex: 27 / FADM Date: 02/01/23 Loc: US Attending Dr: Ivy Baker D.O. Ordering Physician: Ivy Baker D.O. Date of Service: 02/01/23 Procedure(s): US pelvis transvaginal Accession Number(s): [id number] cc: Ivy Baker D.O.; Physician,Non-Staff [place] The [place] [id number] Patient Name: BRITTNEE SMITH MRN: [id number] date: 1995 Sex: F Assigned Patient Location: US Current Patient Location: US Accession/Order Number: [id number] Exam Date: 02/01/2023 09:11 Report Date: 02/01/2023 10:00 At the request of: IVY BAKER Procedure: US pelvis transvaginal EXAM: Pelvic ultrasound HISTORY: . IUD PLACEMENT . COMPARISON: None. TECHNIQUE: Transvaginal scanning was performed FINDINGS: Scanning of the pelvis demonstrates the uterus to be retrovertedand measures 9.2 x 4.7 x 6.5 cm. Endometrial complex measures 14 mm in its maximal AP dimension. There isan IUD noted within the endometrial cavity of the uterus which appears inadequate position. Right ovary measures 3.5 x 2.2 x 3.6 cm. Color-flow is noted. Folliclesare noted. No masses are noted. Left ovary measures 4.3 x 2.6 x 3.6 cm. Color-flow is noted. There is a1.6 x 2 cm simple cyst involving the left ovary. No fluid is noted in the cul-de-sac. US/US pelvis transvaginal IMPRESSION: 1. Endometrial complex is prominent measuring 14 mm. Findings could be dueto the patient's menstrual cycle or endometrial hyperplasia. 2. IUD is in place. 3. Normal right ovary. 4. 2 cm simple cyst involving the left ovary. Electronically authenticated by: JENN RAMSEY Date: 02/01/2023 10:00 Dictated By: Jenn Ramsey M.D. Signed By:02/01/23 1003 DD/ 1000 TD/TT: Group Sales Representative: Ivy Baker DO [facility] Final Result documented in this encounter Visit Diagnoses Not on filedocumented in this encounter
--- OUTSIDE RECORDS SUMMARY | 2024-08-19 13:34 | XMS_ITS | Data Portability ---
Author Organization [place] - [facility]PER[facility] [address] [place] [address] [address] [place] [address] Care Team Providers Care Phthalic Acid Purifier Name Role Phone NO PRIMARY CARE PROVIDER [id number] OTHER Assessment Encounter Date Assessment Date Assessment LastModified by Organization Details LastModified Time 07/08/2019 07/08/2019 post doing well, desires IUD [email or web address] Not available 07/09/2019 05:52:34 Plan of Treatment Reminders Order Date Submit Date Provider Last Modified By Organization Details Last Modified Time Details Appointments None recorded. Lab test, urine 2022 023 [email or web address] 3 03 - [facility], [address], [address], [place], [address], 3 15:37:49 beta-HCG, quantitativ e, serum or plasma 2022 023 [email or web address] [facility], [address], [place], [address], 3 13:48:08 abo group + rh type, blood 2022 023 JONO [employer] [facility], [address], [place], [address], 3 13:08:35 pap, IG + CT + reflex HR HPV if ASC-U 2019 020 [email or web address] [facility], [address] [place], [address], 0 18:09:23 test, urine 2019 020 [email or web address] 03 - [facility], [address] [facility] [address], [address], [place], [address], 0 17:57:17 Referral None recorded. Procedures None recorded. Surgeries None recorded. Imaging None recorded. Medication Orders Multivitami ns 28 mg iron-800 mcg tablet 2022 023 [email or web address] 3 [id number], [address] [place], [address], 3 15:35:40 Patient TargetsNo targets recorded. Patient Instructions Encounter Date Encounter Id Patient Instructions Last Modified By Organization Details Last Modified Time 07/08/2019 [id number] after your delivery (the period): care instructions [email or web address] Not available 07/09/2019 05:53:03 Educational materials that are relevant to your visit today have been sent to the patient portal where you can view them. If you are not registered on our patient portal please go to our website at [email or web address] and register. Your lab results will also be visible to you on the portal. [email or web address] Not available 07/08/2019 09:59:38 control options discussed. vitamins given. Calcium, vitamin D advised for osteoporosis prevention. Kegel exercises explained. Patient coping post - well. Advised to return for annual cable lacer exam . IUD Risks and Complications: Perforation: Rarely, an IUD can be pushed through the wall of the uterus during insertion. This is usually discovered and corrected right away. If not, the IUD can move into other parts of the pelvic area and may damage internal organs. Surgery may then be needed to remove the IUD. Infection: There is some risk of PID (pelvic inflammatory disease) linked to IUD use. But the risk is very low after the first 20 days after insertion. PID is usually sexually transmitted. You have a higher risk of getting PID if you or your partner have sex with multiple partners. Pelvic infection can be caused by bacteria getting into the uterus during insertion. Most infection develops within 3 weeks of insertion. Infection (due to the IUD) after 3 weeks is rare. If you get an infection after this time, it is most likely because you have been exposed to STD's during sex. Studies show that IUDs don't cause PID or infertility. Expulsion: The IUD could partially or completely slip out of the uterus -- this is most likely to occur during the first few months of use (although it can also happen later on). It can also happen during your period. With Mirena, ParaGard and Liletta there is a slightly higher risk for expulsion if you have never had a baby, or if you're a teenager or young adult. Because Shilpa and Kyleena are a tiny bit smaller than the other two IUDs, it is a little less likely to be expelled in nulliparous women (medical word for women who have never given ) -- though expulsion of the IUD can still happen. If your IUD comes out, you can become . So if this happens, make sure to use a back-up control (like a condom), and call your doctor. If your IUD only partially comes out, it must be removed (so please don't try to shove it back in). To be cautious, check your pads and tampons during your period to make sure that your IUD has not fallen out. Increased IUD Risk Factors: Most women will not have any problems. But, if you have certain conditions, you may be more at risk for developing serious complications while using an IUD. These include being at risk for sexually transmitted infections at the time of insertion or having: Serious blood clots in deep veins or lungs. Had PID in the past 12 months. Have diabetes or severe anemia. Have blood that doesn't clot/take a medication that helps your blood clot. Have had two or more sexually transmitted infections within the past 2 years. Take daily medication(s) containing a corticosteroid (such as prednisone). Have a history of tubal infection (this does not apply to women who had a in their uterus since the infection). Have uncontrolled infections of the cervix or vagina, such as bacterial vaginosis. Not available 07/09/2019 05:52:46 07/11/2019 [id number] Educational materials that are relevant to your visit today have been sent to the patient portal where you can view them. If you are not registered on our patient portal please go to our website at [email or web address] and register. Your lab results will also be visible to you on the portal. [email or web address] Not available 07/11/2019 17:57:27 Since uterus is markedly retroverted/retrof lexed and she is only 4.5 wks PP, recommended insertion of the Mirena IUD under US guidance to avoid uterine perforation. Discussed Mirena IUD - efficacy, benefits, risks and the insertion process. Patient elected to not have IUD placed today. She wants to review her options for contraception some more. Provided her with brochures on Mirena and Nexplanon. F/U in 2 wks for 6wk PP visit. [email or web address] Not available 07/11/2019 18:01:59 07/31/2019 [id number] after your delivery (the period): care instructions [email or web address] Not available 07/31/2019 18:09:23 Educational materials that are relevant to your visit today have been sent to the patient portal where you can view them. If you are not registered on our patient portal please go to our website at [email or web address] and register. Your lab results will also be visible to you on the portal. [email or web address] Not available 07/31/2019 15:39:57 control options discussed. vitamins given. Calcium, vitamin D advised for osteoporosis prevention. Kegel exercises explained. Patient coping post - well. Advised to return for annual cable lacer exam . [email or web address] Not available 07/31/2019 15:39:57 03/31/2022 [id number] learning about Not available 03/31/2022 15:37:49 learning about and obesity Not available 03/31/2022 15:37:49 nutrition during : care instructions Not available 03/31/2022 15:37:49 precautions: care instructions Not available 03/31/2022 15:37:49 Please contact t he office if you do not receive the results of any testing done within 1 week of the performance of the test. Educational materials that are relevant to your visit today have been sent to the patient portal where you can view them. If you are not registered on our patient portal please go to our website at [email or web address] and register. Your lab results will also be visible to you on the portal. [email or web address] Not available 03/31/2022 14:26:33 - Viability u/s done today and discussed with patient: Single viable 7 6/7 week IUP by sonographic criteria suggesting an JUANJO of 11/11/22. Good heart tones are seen. There is a subchorionic hematoma measuring 3.4 x 1.3 x 3.0 cm. Bleeding precautions discussed. -Schedule an appointment for New OB evaluation and NT in 4 weeks. -Avoid alcoholic beverages -Discontinue the use of all non-medicinal drugs and chemicals -Review the information you were given regarding genetic screening, including diagnostic tests and first trimester screening for chromosomal abnormalities. Call to schedule the testing you may choose to have. Keep in mind that many of the blood screening tests need to be drawn between 11 and 13 weeks of . [email or web address] Not available 03/31/2022 16:00:19 Reason for Referral None Reported. Results Created Date Observation Date Name Description Value Unit Range Abnormal Flag Note LastModifiedBy Organization Detail LastModifiedTime 07/11/19 20 07/11/2019 pregn page test, urine HCG negati ve Not Available 03 - [facility] [address] [facility] [address], [place], [address], 07/11/2019 17:57:10 03/31/19 23 04/01/2022 ABO GROUP ING AND RHO(D ) TYPIN G ABO grouping O Not Available [facility] ([facility]) [address] [place], [address], 04/01/2022 13:08:35 03/31/19 23 04/01/2022 ABO GROUP ING AND RHO(D ) TYPIN G Rh factor Positi ve Pleas e note: Prior recor ds for this patie nt's ABO / Rh type are not avail able for addit ional verif icati on. Not Available [facility] ([facility]) [address] [facility] [facility] [address] [facility] [address], [place], [address], 04/01/2022 13:08:35 02/02/20 23 04/01/2022 HCG,B ETA SUBUN IT, QNT HCG,beta subunit,qnt, serum 05760 mIU/m L Femal e (Non- pregn ant) 0 - 5 (Post menop ausal ) 0 - 8 Femal e (Preg nant) Weeks of Gesta tion 3 6 - 71 4 10 - 750 5 553 - 4442 6 485 - 18700 7 6599 -4303 63 8 35004 -8186 71 9 91518 -0778 10 10 30947 -3810 77 12 73411 -6831 12 14 36531 - 10761 15 83610 - 63153 16 8631 - 37290 17 9162 - 61417 18 6894 - 31108 Resul ts confi rmed on dilut ion. Adan ECLIA metho dolog y Not Available [facility] ([facility]) [address] [facility] [address], [place], [address], 04/01/2022 13:08:36 03/31/19 23 03/31/2022 pregn page test, urine HCG positi ve Not Available 03 - [facility] [address] [facility] [address], [place], [address], 03/31/2022 14:31:43 03/31/19 23 03/31/2022 US, obste tric, trans vagin al No observ ation record ed. [facility] [address], [place], [address], 04/01/2022 14:38:21 Result Notes None recorded. Problems Name Problem SNOMED Code Status Onset Date Resolution Date Notes Provider Name and Address Organization Details Recorded Time Obesity 500095212 Active 2017 Prepregn ant BMI>> Aziza Yohana ascencio [place] - [employer] [facility] 3 14:27:26 Pregnanc y 42563696 Completed 201705/28/2018 SRIAKNTH Shannon - UTILITY O[employer] [facility] 3 15:12:00 Obesity 623139853 Completed 2017 Prepregn ant BMI>> Amparo ascencio, [facility] UTILITY OPERATOR [facility] 9 11:38:23 Hyperthy roidism 86358971 Completed 201711/28/2017 Britney CASTILLO [address], [place], [address], [facility] - UTILITY OPERATOR [facility] 8 12:57:05 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 Asher ocampo Amparo ascencio, [facility] UTILITY OPERATOR [facility] 9 11:38:23 Hypothyr oidism 73866971 Active 2017 Onset ; 2 weeks after / placed on Syntroid 200mcg daily;En docrine> >Dr. Sotelo ([facility]) Amparo ascencio, [facility] UTILITY OPERATOR [facility] 0 08:53:08 Body mass index 30+ - obesity 795675738 Completed 201812/25/2018 Sherrie Alford MD [address], [place], [address], [facility] UTILITY OPERATOR [facility] 9 14:19:20 Body mass index 30+ - obesity 590243987 Completed 2018 Amparo ascencio, [facility] UTILITY OPERATOR [facility] 9 11:38:23 Anemia of pregnanc y 70025208 Completed 201812/25/2018 Sherrie Alford MD [address], [place], [address], [facility] UTILITY [facility]PER[facility] 9 14:19:16 Anemia of pregnanc y 86675132 Completed 2018 Amparo ascencio, [facility] UTILITY OPERATOR [facility] 9 11:38:23 Pregnanc y-induce d hyperten aj 90685855 Completed 2018 [facility] 9 11:38:23 Pregnanc y-induce d hyperten aj 01774710 Completed 201802/06/2019 CLAIR VALENCIA MD [address], [place], [address], [facility] UTILITY OPERATOR [facility] 9 11:12:08 Pregnanc y 62932423 Completed 201806/18/2019 [place] [facility] 3 15:12:00 Maternal obesity complica ting pregnanc y, [facility] 21809196148 7 Completed 201812/25/2018 Sherrie Alford MD [address], [place], [address], [facility] UTILITY OPERATOR [facility] 9 14:19:07 Maternal obesity complica ting pregnanc y, childbir th and the [place] , [facility] [id number] 7 Completed 2018 Amparo ascencio [facility] UTILITY OPERATOR [facility] 0 08:53:08 Hypothyr oidism 31423873 Completed 2017 Onset ; 2 weeks after / placed on Syntroid 200mcg daily;En docrine> >Dr. Sotelo (endo) Amparo ascencio [facility] UTILITY OPERATOR [facility] 0 08:53:08 Postnata l care status [id number] Active Aziza ascencio [facility] UTILITY OPERATOR [facility] [employer] [facility] 3 14:27:12 Anemia 861962455 Active Aziza ascencio [facility] UTILITY OPERATOR [facility] [employer] [facility] 3 14:27:12 Problem Notes None recorded. Procedures Surgical History Date Name Laterality Status Provider Name and Address Organization Details Recorded Time 04/29/19 23 NEW OB EST commercial cancelled Eileen Agudelo [place] - [facility] 04/28/2022 08:45:50 03/31/19 23 OB Ultrasound Transvaginal completed Jillian Ivey [place] - [facility] 03/31/2022 15:51:35 07/31/19 20 Post- (Medicaid/Medica id HMO) completed Emanzully Accelon (TERMED) [place] - [facility] 07/31/2019 15:39:57 07/31/19 20 Post- depression screening completed Emanise Accelon (TERMED) [place] - [facility] 07/31/2019 15:39:57 07/31/19 20 Date of Last Pap Smear completed Aziza Muller [place] - [facility] 03/31/2022 14:36:32 07/11/19 20 IUD insertion completed Delmis Ruvalcaba [place] - UT[facility] 07/11/2019 14:19:31 07/08/19 20 Post- (Medicaid/Medica id HMO) completed Last Bonner [place] - [facility] 07/08/2019 09:59:38 07/08/19 20 Post- depression screening completed Last Bonner [place] - [facility] 07/08/2019 09:59:38 06/04/19 20 NON-STRESS TEST (NST) Digital report in record) completed Last Bonner [place] - [facility] 06/04/2019 09:43:05 06/04/19 20 OB Ultrasound Biophysical Profile with NST completed Danna Hu [place] - [facility] 06/04/2019 10:20:46 06/04/19 20 NON-STRESS TEST (NST) Digital report in record) completed Alberta Brantley [place] - UT[facility] 06/04/2019 12:53:32 06/04/19 20 visit (Medicaid/HMO) completed Viky Case (TERMED) [place] - [facility] 06/04/2019 09:00:14 05/28/19 20 Telemedicine 11-20 minutes completed Sherrie Alford MD [address], [place], [address], [place] - [facility] 05/28/2019 14:49:55 05/28/19 20 OB Ultrasound Follow-Up Anatomy/Growth completed Kylah Arzola [place] - [facility] 05/28/2019 14:24:32 05/15/19 20 visit (Medicaid/HMO) completed Batsheva Wilson [place] - [facility] 05/15/2019 09:56:28 05/07/19 20 visit (Medicaid/HMO) completed Alberta Brantley [place] - [facility] 05/07/2019 21:07:21 04/30/19 20 visit (Medicaid/HMO) completed Delmis Ruvalcaba [place] - UT[facility]PER[facility] 04/30/2019 09:14:28 04/30/19 20 NON-STRESS TEST (NST) Digital report in record) completed Hannah Carranza [place] - [facility] 04/30/2019 09:21:08 04/16/19 20 visit (Medicaid/HMO) completed Delmis Ruvalcaba [place] - [facility] 04/16/2019 11:58:23 04/16/19 20 OB Ultrasound Follow-Up Anatomy/Growth completed Andie Berrios, TONG [employer]TER [address], [place], [address], [place] - [facility] 04/16/2019 11:35:39 04/16/19 20 OB Ultrasound Follow-Up Anatomy/Growth completed Luzma Wilson [place] - UT[facility] 04/16/2019 10:08:15 04/02/19 20 visit (Medicaid/HMO) completed Delmis Ruvalcaba [place] - [facility] 04/02/2019 13:31:12 03/19/19 20 visit (commercial) completed Leighann Aldridge [place] - [facility] 03/19/2019 13:53:25 03/12/19 20 OB Ultrasound Follow-Up Anatomy/Growth [facility] [place] - [facility] 03/12/2019 09:12:26 02/26/20 19 visit (Medicaid/HMO) completed Emily Storey [place] - [facility] 02/25/2019 10:46:12 02/07/20 19 visit (Medicaid/HMO) completed Angelica Hogan [place] - [facility] 02/06/2019 11:28:49 02/07/20 19 OB Ultrasound Transvaginal completed Candice Leos [place] - [facility] 02/06/2019 11:01:39 02/07/20 19 OB Ultrasound Targeted Level 2 completed Candice Leos [place] - [facility] 02/06/2019 11:01:38 01/18/20 19 visit (Medicaid/HMO) completed Delmis Ruvalcaba [place] - [facility] 01/17/2019 11:07:21 01/02/20 19 visit (Medicaid/HMO) completed Gulshan Murphy [place] - [facility] 01/01/2019 14:08:49 12/12/19 19 OB Ultrasound Nuchal Translucency completed Halie Fine (TERMED) [place] - [facility] 12/11/2018 13:52:46 12/12/19 19 visit (commercial) completed Brenda Reyes [place] - [facility] 12/11/2018 14:02:18 11/21/19 19 NEW OB 1st Tri Medicaid/HMO completed Emily Storey [place] - [facility]PER[facility] 11/20/2018 10:25:28 11/14/19 19 OB Ultrasound Transvaginal completed Halie Fine (TERMED) [place] - [facility] 11/13/2018 09:46:21 07/17/19 19 Post- GLOBAL (Commercial) completed Secylia Andrey (TERMED) [place] - [facility] 07/16/2018 11:28:52 07/17/19 19 Post- depression screening completed Pascaleylia Andrey (TERMED) [place] - [facility] 07/16/2018 11:28:52 06/19/19 19 Post- (Medicaid/Medica id HMO) completed Krishna Coker MD [address], [place], [address], [place] - [facility] 06/18/2018 09:20:45 06/19/19 19 Post- depression screening completed Krishna Coker MD [address], [place], [address], [facility] - [facility] 06/18/2018 09:20:45 05/19/19 19 visit (commercial) completed Emily Storey [place] - [facility] 05/18/2018 10:18:20 05/19/19 19 visit (Medicaid/HMO) completed Emily Storey [place] - [facility] 05/18/2018 10:18:13 05/19/19 19 NON-STRESS TEST (NST) Digital report in record) completed Gustavo Apodaca (TERMED) [facility] UTILITY OPERATOR [facility] 05/18/2018 10:55:34 05/16/19 19 NON-STRESS TEST (NST) Digital report in record) completed Emily Storey [place] - [facility] 05/15/2018 11:13:15 05/12/19 19 NON-STRESS TEST (NST) Digital report in record) completed Mo Balderas (TERMED) [place] - [facility] 05/11/2018 11:31:41 05/10/19 19 visit (Medicaid/HMO) completed Emily Storey [place] - [facility] 05/09/2018 09:19:55 05/10/19 19 NON-STRESS TEST (NST) Digital report in record) completed Cr Lee [place] - [facility] 05/09/2018 09:45:21 05/05/19 19 NON-STRESS TEST (NST) Digital report in record) completed Angelica Hogan [place] - [facility] 05/04/2018 12:21:53 05/02/19 19 visit (Medicaid/HMO) completed Leighann Aldridge [place] - [facility] 05/01/2018 12:20:16 05/02/19 19 NON-STRESS TEST (NST) Digital report in record) completed Gustavo Apodaca (TERMED) [place] [facility] 05/01/2018 12:12:29 05/02/19 19 visit (commercial) completed Emily Storey [place] - [facility] 05/01/2018 10:49:37 04/28/19 19 visit (commercial) completed Cr Lee [place] - [facility] 04/27/2018 10:41:07 04/28/19 19 NON-STRESS TEST (NST) Digital report in record) completed Emily Storey [place] - [facility] 04/27/2018 12:24:15 04/24/19 19 visit (Medicaid/HMO) completed Emily Storey [place] - UT[facility]PER[facility] 04/24/2018 14:02:17 04/24/19 19 NON-STRESS TEST (NST) Digital report in record) completed Mo Balderas (TERMED) [place] - [facility] 04/24/2018 14:34:54 04/17/19 19 NON-STRESS TEST (NST) Digital report in record) completed Pascaelylbrett Balderas (TERMED) [place] - [facility] 04/17/2018 13:23:57 04/17/19 19 visit (Medicaid/HMO) completed Gustavo Apodaca (TERMED) [place] - [facility] 04/17/2018 12:09:50 04/06/19 19 OB Ultrasound Follow-Up Anatomy/Growth completed Halie Fine (TERMED) [place] - [facility] 04/06/2018 15:49:44 04/06/19 19 OB Ultrasound Biophysical Profile with NST completed Halie Fine (TERMED) [place] - [facility] 04/06/2018 15:49:45 04/06/19 19 NON-STRESS TEST (NST) Digital report in record) completed Pascaleylbrett Balderas (TERMED) [place] - [facility] 04/06/2018 15:59:27 04/06/19 19 visit (Medicaid/HMO) completed Hannah Carranza [place] - [facility] 04/06/2018 14:39:16 03/28/19 19 visit (commercial) completed Angelica Hogan [place] - [facility] 03/28/2018 10:54:11 03/06/19 19 visit (commercial) completed Cr Lee [place] - [facility] 03/06/2018 15:43:53 02/07/20 18 OB Ultrasound Follow-Up Anatomy/Growth completed Rabia Echols (Termed) [place] - [facility] 02/06/2018 11:00:25 01/25/20 18 visit (Medicaid/HMO) completed Isabel Beaver (TERMED) [place] [facility] 01/24/2018 09:16:44 12/27/19 18 OB Ultrasound Transvaginal completed Addie Stroud [place] - [facility] 12/26/2017 11:36:44 12/27/19 18 OB Ultrasound Targeted Level 2 completed Addie Stroud [facility] 12/26/2017 11:36:44 12/27/19 18 visit (Medicaid/HMO) completed Madonna Caballero ([place]MED) [place] [facility] 12/26/2017 11:35:23 12/13/19 18 visit (Medicaid/HMO) completed Mica Shannon [place] - [facility] 12/12/2017 09:13:52 11/29/19 18 NEW OB 2nd,3rd Tri Medicaid/HMO completed Meseret Mondragon (TERMED) [place] [facility] 11/28/2017 11:16:27 11/17/19 18 OB Ultrasound Nuchal Translucency completed Linda Hamlin [place] - [facility] 11/16/2017 12:12:23 02/27/19 15 Hand surgery completed Meseret Mondragon (TERMED) [place] [facility] 11/28/2017 11:19:45 Imaging Results None recorded. Procedure Notes None recorded. Medical Equipment None Reported. Allergies Allergen ID Allergen Name Allergen Category Reaction Reaction Severity Criticality Documentation Date Start Date Code Code System Note Provider Name and Address Organization Details Recorded Time [id number] Substance with sulfonami de structure and antibacte rial mechanism of action (substanc e) medicatio n rash Not available Not available 11/16/2017 12298 8003 SNOMED Belén Dunia ascencio [place] - [facility] 8 12:16:45 [id number] Pediazole medicatio n rash Not available Not available 11/16/2017 36274 RxNorm Belén Duque sonu, SRIKANTH - [facility] 8 12:17:12 Medications Name Sig Start Date Stop Date Status Note LastModified by Organization Details LastModified Time Miralax 17 gram oral powder packet Take 1 packet every day by oral route for 30 days. 03/19 completed Not Available Not Available Not Available Colace 100 mg capsule Take 1 capsule twice a day by oral route for 30 days. 03/19 completed Not Available Not Available Not Available ibuprofen 800 mg tablet 800 mg by oral route. 07/09 completed Not Available Not Available Not Available fluconazole 150 mg tablet Take 1 tablet every day by oral route for 1 day. 04/06 completed Not Available Not Available Not Available Synthroid 200 mcg tablet Take 1 tablet every day by oral route before meals for 30 days. 03/31 completed Not Available Not Available Not Available Tamiflu 75 mg capsule 75 mg by oral route. 03/31 completed Not Available Not Available Not Available aspirin 81 mg tablet,scott yed release Take 1 tablet every day by oral route. 04/02 completed Not Available Not Available Not Available Synthroid 175 mcg tablet TAKE 1 TABLET BY MOUTH EVERY DAY IN THE MORNING ON AN EMPTY STOMACH active Not Available Not Available No t Available Synthroid 25 mcg tablet Take 1 tablet every day by oral route as directed for 30 days. 11/20 completed Not Available Not Available Not Available levothyroxi ne 125 mcg tablet 250 ugs by oral route. 07/11 completed Not Available Not Available Not Available Synthroid 50 mcg tablet TAKE ONE TABLET BY MOUTH EVERY MORNING ON AN EMPTY STOMACH TAKE 175MCG AND 50MCG TO EQUAL 225MCG active Not Available Not Available No t Available ferrous sulfate 325 mg (65 mg iron) tablet,scott yed release Take 1 tablet every day by oral route for 30 days. 11/20 completed Not Available Not Available Not Available norethindro ne (contracept ricky) 0.35 mg tablet Take 1 tablet every day by oral route. 08/02 completed Not Available Not Available Not Available Synthroid 250 mg daily 04/16 completed Not Available Not Available Not Available 1 tab po daily 07/07 completed Not Available Not Available Not Available Mirena 03/31 completed Not Available Not Available Not Available Concept DHA 35 mg-1 mg-200 mg capsule Take 1 capsule every day by oral route. 12/25 completed Not Available Not Available Not Available 28 mg iron-800 mcg tablet TAKE ONE TABLET BY MOUTH ONE TIME DAILY active Not Available Not Available No t Available Diclegis 10 mg-10 mg tablet,scott yed release Take 2 tablets every day by oral route for 30 days. 12/25 completed Not Available Not Available Not Available Vitafol Gummies 3.33 mg iron-0.33 mg chewable tablet CHEW 3 TABLETS BY MOUTH DAILY active Not Available Not Available No t Available Vitals Date Recorded Body height Body mass index (BMI) Body weight Heart rate Body temperature Systolic blood pressure Diastolic blood pressure Provider Name and Address Organization Details Last Updated DateTime 3 162.56 cm 38.6 kg/m2 863859. 85 g 88 /min 97.7 [degF] 95 mm[Hg] 63 mm[Hg] Aziza Muller [place] - [facility] 3 14:26:56 Date Recorded Body height Body mass index (BMI) Body weight Heart rate Systolic blood pressure Diastolic blood pressure Provider Name and Address Organization Details Last Updated DateTime 0 162.56 cm 36.6 kg/m2 34985.8 9 g 71 /min 108 mm[Hg] 76 mm[Hg] Last Bonner [place] - [facility] 0 09:59:50 Date Recorded Body height Body mass index (BMI) Body weight Heart rate Systolic blood pressure Diastolic blood pressure Provider Name and Address Organization Details Last Updated DateTime 0 162.56 cm 36.8 kg/m2 91373.2 g 86 /min 103 mm[Hg] 55 mm[Hg] Delmis Ruvalcaba [place] - [facility] 0 14:18:23 Date Recorded Body height Body mass index (BMI) Body weight Heart rate Systolic blood pressure Diastolic blood pressure Provider Name and Address Organization Details Last Updated DateTime 0 162.56 cm 36.7 kg/m2 29695.7 7 g 86 /min 117 mm[Hg] 77 mm[Hg] Ellen Bowers (TERMED) [place] - [facility] 0 15:40:06 Social History Question Answer Notes LastModified by Organizat ion Details LastModified Time Tobacco Smoking Status Never Smoker Meseret Giancarlo (TERMED) sonu, [place] - [facility] 11/28/2017 11:19:16 Do You Have An Advance Directive? No [email or web address] Information not available 11/16/2017 Are You Blind Or Do You Have Difficulty Seeing? No [email or web address] Information not available 03/31/2022 Is Blood Transfusion Acceptable In An Emergency? Yes [email or web address] Information not available 11/16/2017 In The 14 Days Before Symptom Onset, Have You Had Close Contact With A Laboratory-confir med COVID-19 While That Case Was Ill? No [email or web address] Information not available 03/31/2022 In The 14 Days Before Symptom Onset, Have You Had Close Contact With A Person Who Is Under Investigation For COVID-19 While That Person Was Ill? No [email or web address] Information not available 03/31/2022 Have You Been To An Area Known To Be High Risk For COVID-19? No [email or web address] Information not available 03/31/2022 Are You Deaf Or Do You Have Serious Difficulty Hearing? No [email or web address] Information not available 03/31/2022 Physical Abuse No [email or web address] Informatio n not available 11/28/2017 Emotional Abuse No [email or web address] Informati on not available 11/28/2017 Illicit Drugs Denies Illicit Substance Abuse [email or web address] Information not available 11/16/2017 Impairment No Impairment [email or web address] Information not available 11/28/2017 Would You Like HIV Testing Or Counseling At This Time? No [email or web address] Information not available 03/31/2022 What Was The Date Of Your Most Recent Tobacco Screening? 03/31/2022 [email or web address] Information not available 03/31/2022 Are There Any Smokers In Your House? No [email or web address] Information not available 11/16/2017 How Much Tobacco Do You Smoke? No [email or web address] Information not available 03/31/2022 How Many Years Have You Smoked Tobacco? 0 [email or web address] Information not available 03/31/2022 Do You Have Difficulty Walking Or Climbing Stairs? No [email or web address] Information not available 03/31/2022 Sex: Female Functional Status Question Answer Note LastModified by Organizat ion Details LastModified Time What is your level of alcohol consumption? None [email or web address] Information not available 11/16/2017 Do you or have you ever used smokeless tobacco? Never used smokeless tobacco [email or web address] Information not available 03/31/2022 Do you have difficulty doing errands alone? No [email or web address] Information not available 03/31/2022 Do you have difficulty dressing or bathing? No [email or web address] Information not available 03/31/2022 Do you or have you ever used e-cigarettes or vape? Never used electronic cigarettes [email or web address] Information not available 03/31/2022 Mental Status Question Answer Note LastModified by Organization D etails LastModified Time Do you have difficulty concentrating, remembering or making decisions? No [email or web address] Information no t available 03/31/2022 Family History Relationship Description Onset Age of this Age Resolved Age Notes LastModified by Organization Details LastModified Time Paternal Grandfather Family history of malignant neoplasm [email or web address] Not available 2022 14:28:32 Maternal Grandfather Diabetes mellitus [email or web address] Not available 2022 14:28:32 Mother Pre-eclampsi a [email or web address] Not available 2022 14:28:32 Paternal Aunt Hypothyroidi sm [email or web address] Not available 2022 14:28:32 Paternal Grandmother Hypothyroidi sm [email or web address] Not available 2022 14:28:32 Medical History Condition Response Other N BRCA Test negative N Vulvar Cancer N Hyperthyroidism N Emphysema COPD N BRCA POSITIVE N Blood Transfusion N Colon cancer N Depression N Alzheimer's disease N Anxiety Disorder N Hemorrhoids N Obesity N Arthritis N Infertility N Acid Reflux (GERD) N Cancer N HIV positive N Stroke N Melanoma N Prostate cancer N Ovarian cyst N Shingles (Varicella zoster) N Hypertension, induced N Skin Disease N , missed N Fibromyalgia N Headaches N Pancreatic cancer N Fibrocystic breasts N RAVEN I, II ,III N STD Sexually Transmitted Disease N Heart Problems N Hyperparathyroidism N Herpes N Kidney or Bladder Problems N Acne N Diabetes, gestational N Cervical cancer N Eating Disorder N Urinary incontinence N Ninfa breast cancer risk >20% N Sickle Trait N Osteopenia N Crohn's disease N Thrombophilias (blood clotting disorder) N Lupus erythematosis N Multiple sclerosis N Asthma N Pelvic prolapse N Diabetes Type II N Abnormal uterine bleeding N Abnormal Pap N Diabetes Type I N Polyps, uterus or cervix N ARZATE testing POSITIVE N Vulvar problem N Attention deficit disorder N Breast Cancer N Lung Disease N Hypothyroidism N Defects or Inherited Disease N Menopausal Syndrome N Drug dependence/abuse N Breast Problem N Anesthesia Complications N Premature labor N SADIE I, II, III N Urinary tract infection N VAIN I, II, III N HPV positive N ARZATE testing negative N Deep vein thrombosis/DVT N Neurologic problem N Endometriosis N Heart murmer/Mitral valve prolapse N High Cholesterol N Rubella, non-immune N Dyspareunia N Recurrent loss N Parkinson's Disease N Short stature N Thyroid Problems N GI Problems N No diseases or conditions N , elective N Hepatitis C N Anemia N HIGH RISK - H/O N Thrombocytopenia (low platelet count) N Psychiatric Illness N Ovarian Cancer N Fibroids N Eczema N Ectopic N Hepatitis B N Connective Tissue Disorder N Seizure disorder N , spontaneous N ENT problem N Heart Disease N Chlamydia POSITIVE Y Endometrial cancer N Hypertension N Pre-Eclampsia N Osteoporosis N Gynecological History Statement/Question Response Hysterectomy N Menopause N Flow Moderate Date of LMP 01/23/2022 HPV Vaccine Y Duration of Flow (days) 6 Age at Menarche 10 Current Control Method Most Recent Mammogram What is the patient s current relationship to the practice? 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 Date of Last Colonoscopy Frequency of Cycle (Q days) Date of Last Pap Smear 07/31/2019 LMP Definite Obstetrics History GPAL:G 3 P 2 0 0 2 Type Value Multiple Births 0 Full Term 2 Induced 0 Spontaneous 0 Premature 0 Living 2 Ectopics 0 Total 3 Past Encounters Encounter ID Performer Location Encounter Start Date Encounter Closed Date Diagnosis/Indication Diagnosis SNOMED-CT Code Diagnosis ICD10 Code Diagnosis Note [id number] Sherrie Alford MD - [facility] [address] [place] [address] 11/16/2017 11:46:21 11/16/2017 12:45:44 screening [id number] Z36.82 [id number] Damaris Reyes MD - [facility] [address] [place] [address] 11/16/2017 11:49:21 11/16/2017 12:45:32 Genetic screening for disorder 885275261 Z13.71 screening 2437 64657 Z36.0 [id number] ANNA SOTOMAYOR 80 - ([facility]) [address] [address] 11/28/2017 10:21:16 11/28/2017 12:38:40 Obesity 475098377 E66.9 Hypothyroidism 17055113 E03.9 [id number] Sherrie Alford MD 80 - ([facility]) [address] [address] 12/12/2017 08:58:24 12/12/2017 12:23:53 High risk 59961310 O09.92 [id number] Clair Valencia MD 80 - ([facility]) [address] [address] 12/26/2017 11:14:30 12/26/2017 12:36:09 High risk 67022182 O09.92 Hypothyroi dism in 369696545 E03.9 [id number] Clair Valencia MD 80 - ([facility]) [address] [address] 12/26/2017 11:15:01 12/26/2017 12:35:54 Routine care 827621219 Z34.90 [id number] Rafael Julian MD 80 - ([facility]) [address] [address] 01/24/2018 09:12:46 01/24/2018 11:26:30 High risk 77884570 O09.892 Hypothyroidism 67063050 E03.9 [id number] Sherrie Alford MD 80 - ([facility]) [address] [address] 02/06/2018 09:39:42 02/06/2018 10:59:54 Routine care 755909696 Z34.90 [id number] Romario Alex MD 03 [facility] Office [address] [facility] [address] [place] [address] 1 03/06/2018 14:53:45 03/06/2018 16:35:24 Routine care 446549220 Z34.82 52167518 Z34.9 2 [id number] Romario Alex MD [address] [place] [address] Office [address] [facility] [address] [place] [address] 1 03/28/2018 10:40:35 03/28/2018 15:27:48 Routine care 901918198 Z34.82 CONT. surveillan ce-KICK COUNT-LABO R PRECAUTION S-EDUCATIO N AND counseling Vaginitis 06513254 N76.0 [id number] Mayur Serra MD [address] [place] [address] [place] [address] [address] [place] [address] 1 04/06/2018 14:20:11 04/06/2018 15:13:08 Routine care 825516604 Z34.82 [id number] Mayur Serra MD [address] [place] [address] [place] [address] [address] [place] [address] 1 04/06/2018 15:04:15 04/06/2018 17:24:39 [id number] Kathleen Campbell MD [address] [place] [address] [place] [address] [address] [place] [address] 04/06/2018 15:04:51 04/06/2018 17:26:29 Routine care 090609855 Z34.90 [id number] Sha Becker MD [address] [place] [address] [place] [address] [address] [place] [address] 04/17/2018 11:57:49 04/17/2018 14:39:13 Routine care 547170998 Z34.82 [id number] Sha Becker MD [address] [place] [address] [place] [address] [address] [place] [address] 04/17/2018 12:33:49 04/17/2018 14:40:34 [id number] Leighann Aldridge APRN 03 [facility] Office [address] [facility] [address] [place] [address] 04/24/2018 13:44:24 04/24/2018 15:59:40 [id number] Leighann Aldridge APRN 03 [facility] t Office [address] [facility] [address] [place] [address] 04/24/2018 13:46:43 04/24/2018 15:58:17 Routine care 534506361 Z34.03 - induced hypertension 38764857 O13.9 Anemia of 2734 2004 O99.019 Body mass index 30+ - obesity 690855217 Z68.38 [id number] Sha Becker MD 03 [facility] Office [address] [facility] [address] [place] [address] 04/27/2018 10:20:12 04/27/2018 14:05:00 Obesity 369479220 E66.9 [id number] Sha Becker MD [facility] Office [address] [facility] [address] [place] [address] 04/27/2018 10:20:24 04/27/2018 11:03:17 Routine care 873011230 Z34.82 81978762 Z34.9 3 At increas ed risk of sexually transmitted infection 708751303 Z11.3 [id number] Leighann Aldridge APRN 03 [facility] Office [address] [facility] [address] [place] [address] 05/01/2018 10:19:46 05/01/2018 12:33:44 Maternal obesity complicating , childbirth and the puerperium, antepartum 8943125611 07 O99.213 Routine an tenatal care 449190744 Z34.82 Normal 4754162 2 Z34.83 [id number] Leighann Aldridge APRN 03 [facility] t Office [address] [facility] [address] [place] [address] 05/01/2018 10:19:46 05/01/2018 12:33:44 Routine care 944160550 Z34.82 Obesity 584600129 E66.9 [id number] Sha Becker MD 03 [facility] Office [address] [facility] [address] [place] [address] 05/04/2018 11:32:45 05/04/2018 13:45:29 [id number] Z33.1 [id number] Leighann Chris Aldridge TONG SETTER 03 [facility] Office [address] [facility] [address] [place] [address] 05/09/2018 09:00:57 05/09/2018 10:36:56 Maternal obesity complicating , childbirth and the puerperium, antepartum 9829478185 07 O99.183 [id number] Leighann Aldridge APRN 03 [facility] Office [address] [facility] [address] [place] [address] 05/09/2018 09:01:23 05/09/2018 15:49:43 High risk 81798818 O09.93 - induced hypertension 86518941 O13.9 [id number] Leighann Aldridge APRN 03 [facility] Office [address] [facility] [address] [place] [address] 05/11/2018 10:41:26 05/11/2018 12:00:35 [id number] Mayur Serra MD 03 [facility] Office [address] [facility] [address] [place] [address] 05/15/2018 10:33:45 05/15/2018 12:43:01 Obesity 013817754 E66.9 Routine an tenatal care 125231331 Z34.82 [id number] Leighann Aldridge APRN 03 [facility] Office [address] [facility] [address] [place] [address] 05/18/2018 09:55:21 05/18/2018 12:45:32 [id number] Z33.1 [id number] Leighann Aldridge APRN 03 [facility] Office [address] [facility] [address] [place] [address] 05/18/2018 09:55:32 05/18/2018 12:43:32 Routine care 589252633 Z34.82 [id number] Krishna Coker MD 03 - [facility] Office [address] [facility] [address] [place] [address] 06/18/2018 09:13:23 06/18/2018 09:46:54 state [id number] Z39.2 [id number] Alberta Brantley MD [facility] Office [address] [facility] [address] [place] [address] 07/16/2018 11:17:25 07/16/2018 12:17:50 state 57552194 Z39.2 Initial pr escription of oral contraception 825272507 Z30.256 [id number] Leighann Aldridge APRN 03 - [facility] Office [address] [facility] [address] [place] [address] 11/13/2018 08:54:52 11/13/2018 14:50:20 Amenorrhea 51093021 N91.1 Urine preg gustavo test positive 537940195 Z32.01 Normal 6121699 2 Z33.1 Maternal o besity complicating , childbirth and the puerperium, antepartum 2574095642 07 O99.213 Nausea and vomiting 1693 1999 R11.2 Hypothyroidism 29620805 E03.9 [id number] Sha Becker MD 03 - [facility] Office [address] [facility] [address] [place] [address] 11/13/2018 09:31:52 11/13/2018 14:49:36 Routine care 555222316 Z34.90 [id number] Leighann Aldridge APRN 03 [facility] Office [address] [facility] [address] [place] [address] 11/20/2018 09:42:36 11/20/2018 15:07:34 Routine care 170381983 Z34.81 Maternal o besity complicating , childbirth and the puerperium, antepartum 5752774456 07 O99.895 [id number] Leighann Chris Aldridge APRN 03 [facility] Office [address] [facility] [address] [place] [address] 12/11/2018 12:55:32 12/11/2018 17:30:54 Routine care 521108708 Z34.82 screening 2437 60861 Z36.0 [id number] Kathleen Campbell MD 03 - [facility] Office [address] [facility] [address] [place] [address] 12/11/2018 12:55:44 12/11/2018 17:34:02 screening 633106438 Z36.82 [id number] Sherrie Alford MD 09 - [facility] [address] [facility] [address] [place] [address] 12/25/2018 13:51:53 12/25/2018 14:56:05 Maternal obesity complicating , childbirth and the puerperium, antepartum 5343483077 07 O99.212 Hypothyroidism 22258616 E03.9 - induced hypertension 29181040 O13.9 [id number] Leighann Aldridge APRN 03 [facility] Office [address] [facility] [address] [place] [address] 01/01/2019 13:43:53 01/01/2019 14:09:43 Routine care 813450966 Z34.82 screening 2437 67833 Z36.1 [id number] Flor Caballero APRN - [facility] Office [address] [facility] [address] [place] [address] 01/17/2019 10:14:54 01/17/2019 14:52:12 Routine care 598326277 Z34.82 [id number] CLAIR VALENCIA MD 09 - [facility] [address] [facility] [address] [place] [address] 02/06/2019 10:17:51 02/06/2019 12:52:09 Routine care 102981363 Z34.90 [id number] CLAIR VALENCIA MD [facility] 100 [address] [facility] [address] [place] [address] 02/06/2019 10:18:54 02/06/2019 11:11:00 Hypothyroidism 24291898 E03.9 - induced hypertension 75978209 O13.9 Maternal o besity complicating , childbirth and the puerperium, antepartum 4801095532 07 O99.004 [id number] Leighann Chris Aldridge APRN [facility] Office [address] [facility] [address] [place] [address] 02/06/2019 11:22:16 02/06/2019 17:16:30 Routine care 886071175 Z34.82 Constipation 44836803 K5 9.00 [id number] Leighannher Chris Aldridge APRN [facility] Office [address] [facility] [address] [place] [address] 02/25/2019 10:18:28 02/25/2019 12:41:13 Routine care 388102825 Z34.82 [id number] Sherrie Alford MD 09 [facility] [address] [place] [address] [address] [place] [address] 03/12/2019 09:03:19 03/12/2019 10:13:24 Hypothyroidism 66663988 E03.9 - induced hypertension 50565783 O13.9 Maternal o besity complicating , childbirth and the puerperium, antepartum [id number] 07 O99.963 [id number] Sherrie Alford MD 09 [facility] [address] [facility] [address] [place] [address] 03/12/2019 09:04:41 03/12/2019 09:27:35 Routine care [id number] Z34.90 [id number] Leighann Aldridge APRN [facility] Office [address] [place] [address] 03/19/2019 13:45:12 03/26/2019 14:41:38 Routine care [id number] Z34.82 [id number] Z34.9 2 [id number] Flor Caballero, TONG SETTER 03 - [facility] t Office [address] [place] [address] 04/02/2019 13:24:12 04/02/2019 14:14:31 Routine care [id number] Z34.82 [id number] Antione Bustamante MD 09 - [facility] t 100 Office [address] [place] [address] 04/16/2019 09:35:31 04/16/2019 12:32:25 Routine care [id number] Z34.90 [id number] Andie Berrios TONG SETTER 09 - [facility] t 100 Office [address] [place] [address] 04/16/2019 09:38:04 04/16/2019 11:40:06 Hypothyroidism 12497493 E03.9 Maternal o besity complicating , childbirth and the puerperium, antepartum 6334302004 07 O99.212 Hypothyroi dism in [id number] E03.9 [id number] Leighann Chris Aldridge TONG SETTER 03 - [facility] Office [address] [place] [address] 04/16/2019 11:48:57 04/16/2019 14:14:38 Routine care [id number] Z34.82 [id number] Sha Becker MD 03 - [facility] t Office [address] [place] [address] 04/30/2019 09:04:17 04/30/2019 12:11:47 Routine care [id number] Z34.90 Obesity 459502005 E66.9 [id number] Flor Caballero, TONG SETTER 03 - [facility] Office [address] [place] [address] 04/30/2019 09:06:01 04/30/2019 12:12:40 Routine care [id number] Z34.82 [id number] Alberta Brantley MD 03 - [facility] Office [address] [facility] [address] [place] [address] 05/07/2019 14:08:22 05/07/2019 17:12:55 Routine care [id number] Z34.83 [id number] Sha Becker MD 03 - [facility] Office [address] [facility] [address] [place] [address] 05/15/2019 09:37:22 05/15/2019 14:13:52 Routine care [id number] Z34.82 [id number] Sherrie Alford MD 09 - [facility] 100 Office [address] [facility] [address] [place] [address] 05/28/2019 14:08:45 05/28/2019 14:49:42 Routine care [id number] Z34.90 [id number] Sherrie Alford MD 09 - [facility] 100 Office [address] [facility] [address] [place] [address] 05/28/2019 14:09:48 05/28/2019 15:12:57 Obesity 419862210 E66.9 Hypothyroi dism in 804202074 E03.9 [id number] Alberta Brantley MD 03 - [facility] Office [address] [facility] [address] [place] [address] 06/04/2019 08:39:49 06/04/2019 11:34:44 Routine care [id number] Z34.82 [id number] Z34.9 3 Hypothyroi dism in 911673756 E03.9 Maternal o besity complicating , childbirth and the puerperium, antepartum 1104111596 07 O99.559 [id number] Danyell Hough MD 03 - [facility] t Office [address] [facility] [address] [place] [address] 06/04/2019 09:30:27 06/04/2019 11:37:25 Routine care [id number] Z34.90 [id number] Alberta Brantley MD 03 - [facility] t Office [address] [place] [address] 06/04/2019 09:39:03 06/04/2019 11:36:25 Large for gestation age fetus [id number] O35.8XX9 [id number] Sha Becker MD 03 - [facility] t Office [address] [facility] [address] [place] [address] 07/08/2019 09:24:02 07/08/2019 13:39:47 state [id number] Z39.2 [id number] Alberta Brantley MD - [facility] t Office [address] [facility] [address] [place] [address] 07/11/2019 14:11:53 07/12/2019 16:12:40 Contraception education [id number] Z30.09 [id number] Cecelia Rodrigues MD [facility] t Office [address] [facility] [address] [place] [address] 07/31/2019 15:26:33 08/01/2019 16:21:54 state [id number] Z39.2 Screening for malignant neoplasm of cervix 003526416 Z12.4 Contracept ion education 598081574 Z30.09 Pt still would like Mirena. As per Dr. Brantley, will schedule Mirena insertion under sonographi c guidance [id number] Noreen Mcfarlane APRN [facility] t Office [address] [place] [address] 03/31/2022 14:12:10 03/31/2022 16:48:56 Amenorrhea 00986202 N91.1 not yet confirmed [id number] 09558 Z32.00 [id number] Zach Mondragon MD - [facility] t Office [address] [place] [address] 03/31/2022 14:56:24 03/31/2022 16:49:45 Routine care 982929064 Z34.90 Health Concerns Section Related Observation LastModified by Organization Detai ls LastModified Time None Recorded Concern Status LastModified by Organization Details LastModified Time None Recorded Advance Directives Directive N: Payers Insurance Date Sequence Insurance Name Policy Number Policy Malagon Covered Member ID Malagon Member ID Guarantor Name 04/27/2022 1 [facility] (POS) [id number] Raya Mccabeasi [id number] Raya Mccabeasi 03/25/2019 1 [place] [id number] Raya Waldrop Ysasi [id number] Raya Mccabeasi 03/28/2022 1 [employer] [place] - [place] Raya Mccabeasi [id number] Raya Mccabeasi 03/25/2019 1 [employer] [place] [id number] - [employer] (PPO) [id number] Munir Mccabeasi [id number] Raya Mccabeasi 04/20/2019 1 [employer] - [employer] (PPO) Munir Mccabeasi [id number] Raya Mccabeasi 06/21/2019 3 [employer] (POS II) Raya Mccabeasi [id number] Raya Waldrop Ysasi 03/25/2019 1 [employer] (PPO) [id number] Raya Mccabeasi [id number] Raya Mccabeasi 04/20/2019 1 [employer] (PPO) Munir Mccabeasi [id number] Raya Mccabeasi Notes Date Note Type Note Provider Name and Address Organization Details Recorded Time 0 text/html VisitReported bypatient.Onset/Timing:da te of delivery: 06/10/2019 Type of delivery: Context:feeding choice: breast; good support from partner/family Associated Symptoms:no complaints Safety: Depression Scoredepression questionnaire score <13 Desired Contraception:Intrauterin e device (IUD) Sha Becker MD [address] [facility],[address], [place], [address], [facility] - UTILITY OPERATOR [facility] 07/09/2019 05:53:07 0 text/html Here for insertion of Mirena IUD. LMP 07/10/2019. Pt is 4.5 wks PP (S/P on 06/10/2019). She is . [place] ascencio, [place] - UTILITY OPERATOR [facility] 07/11/2019 18:02:21 0 text/html 24yo P2 here for post- check. She had of live female on 06/10/19. She is mainly breast-feeding but also supplementing with formula. She is c/o a sensation around her clitoris for the past few days (pt describes it like she wants to have sex), had associated it with so she decreased the frequency of . While not painful she feels the sensation is uncomfortable.She has been spotting occasionally.Pt is still interested in an IUD. Cecelia Rodrigues MD [address] [facility],[place] [address], [place], [address], [facility] - UTILITY OPERATOR [facility] 07/31/2019 16:41:49 0 text/html VisitReported bypatient.Onset/Timing:da te of delivery: 06/10/2019 Type of delivery: Context:Medical complications of : none none none none; Complications of labor: none none none none; feeding choice: breast and bottle Associated Symptoms:no complaints Safety: Depression Scoredepression questionnaire score <13 Desired Contraception:Intrauterin e device (IUD) Cecelia Rodrigues MD [address] [facility] [address], [place], [address], [facility] - UTILITY OPERATOR [facility] 07/31/2019 16:41:49 3 text/html confirmationReported bypatient.Onset/Timing:LM [id number]; no menses for 2-3 months Quality:menstrual cycles are usually normal Duration:menses normally last 3-7 days Context:positive test Associated Symptoms:no headaches; no vomiting;breast tenderness;nausea;spottin g since LMP Patient is a 27 year old female here for confirmation. Positive urine test at home and in office today.Had a menstrual cycle on 01/01 and then 01/23 spotting. Took plan B on 02/19/22. Hx of pre-eclampsia on 2018 and PIH 2019. BP has been normal after each delivery. Has hypothyroidism. Has endo apt on 04/01/22 with [facility]. Noreen Mcfarlane, TONG SETTER [address], [place], [address], [facility] - UTILITY OPERATOR [facility] 03/31/2022 16:00:57 OBGyn Episode Ob Episode Information Episode Created Date Number of Fetuses Patient Bloodtype Patient rh Status Prepregnancy Weight lbs Domestic Partner Domestic Partner Phone Father Name Base Remover Status 11/29/19 18 1 O Positive 215 CLOSED Fetus Data First Name Last Name Admitted to NICU Weight (g) Sex Living Outcome Pediatric Complications Fetus ID Race Codes Race Delivery Type 3827.18 25 M true Full Term [id number] Problems Problem Notes Problem Name Start Date End Date Resolution Snomed Code Not e Obesity 11/16/2017 [id number] Prepregna nt BMI>> Hypothyroidism 11/28/2017 94092779 Onse t ; 2 weeks after / placed on Syntroid 200mcg daily;Endocrine>>Dr Melisa Campbell -induced hypertension 04/29/2018 71759358 Body mass index 30+ - obesity 04/24/2018 125264417 Anemia of 04/24/2018 [id number] Juanjo Calculation Initial Juanjo Date Initial Exam Date Initial Exam Provider Initial Ultrasound Date Last Menstrual Period Date Ultra Sound Weeks Gestation 05/26/2018 11/28/2017 11/16/2017 08/19/2017 12 Eighteen To Twenty Week Juanjo Update Ultra Sound Date Fundal Height At Umbil Quickening Date Ultra Sound Latest Weeks Gestation Final Juanjo Confirmed By Final Juanjo Confirmed Date Final Juanjo Date Ultra Sound Latest Days Gestation 11/17/19 18 0 [id number] 11/28/2017 05/27/19 19 0 Pre- Flowsheet Flowsheet Date 11/28/2017 Sweeney Score Blood Edema Fundus Height Fundus Units Glucose Ketones Leukocytes Nitrite Labor Signs Protein Cervic Dilation Cervic Effacement Cervic Station none 14 wks none negative Negative Other (see comments ) neg 0cm Type Weight in lbs Pre/Post Dialysis Refused Weight 202.371953917256 BP Diastolic BP Location Tested BP Systolic BP Type 66 110 sitting Fetus Heart Rate Present A 166 Present Fetus Movement Comments Patient is here for RPICC in take due to Hypothyroidism and Obesity ( BMI 36.7). 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 Had last follow up with her controls engineer in [place] 5 years ago. Patient complaining of fatigue. Discussed PTL prcautions and pre eclampsia precautions. Counseled to continue PNV and eat a healthy diet. Ordered TSH , free T3 and free T4. Req order given for 1HR GTT. Recommended endocrinology consult delbert. Recommended Level ll and FE at 18 weeks. Increased Synthroid to 225mcg daily ( consult with Dr Bustamante). See H&P Flowsheet Date 12/12/2017 Sweeney Score Blood Edema Fundus Height Fundus Units Glucose Ketones Leukocytes Nitrite Labor Signs Protein Cervic Dilation Cervic Effacement Cervic Station none none moderate Negative trace Type Weight in lbs Pre/Post Dialysis Refused Weight 196.344751032479 BP Diastolic BP Location Tested BP Systolic BP Type 68 102 sitting Fetus Heart Rate Present Fetus Movement A Yes Comments seen by endo, on synthroid w ill see endo in 4 weeks again Flowsheet Date 12/26/2017 Sweeney Score Blood Edema Fundus Height Fundus Units Glucose Ketones Leukocytes Nitrite Labor Signs Protein Cervic Dilation Cervic Effacement Cervic Station Type Weight in lbs Pre/Post Dialysis Refused BP Diastolic BP Location Tested BP Systolic BP Type Fetus Heart Rate Present Fetus Movement Comments Flowsheet Date 12/26/2017 Sweeney Score Blood Edema Fundus Height Fundus Units Glucose Ketones Leukocytes Nitrite Labor Signs Protein Cervic Dilation Cervic Effacement Cervic Station none none negative Positive neg Type Weight in lbs Pre/Post Dialysis Refused Weight 202.608373138449 BP Diastolic BP Location Tested BP Systolic BP Type 79 116 Fetus Heart Rate Present A 148 Present Fetus Movement A Yes Comments sono todayHas not yet apprec iated movement. No contractions/LOF/VB. States compliance with synthroid.1. IUP at 18+32. hypothyroid*on synthroid-increased at last visit*recheck thyroid function in one month*endocrinology consult pending3. obesity* testing at 32 weeks4. failed one hour gtt, normal 3 hour gtt5. genetics*NIPS low risk for common trisomies*ECS negative for conditions tested Flowsheet Date 01/24/2018 Sweeney Score Blood Edema Fundus Height Fundus Units Glucose Ketones Leukocytes Nitrite Labor Signs Protein Cervic Dilation Cervic Effacement Cervic Station none 22 cm none negative Negative Pressure neg Type Weight in lbs Pre/Post Dialysis Refused Weight 200.351283799875 BP Diastolic BP Location Tested BP Systolic BP Type 74 L arm 97 sitting Fetus Heart Rate Present A 156 Fetus Movement A Yes Comments Echo done yesterday wi th trivial mitral regurgitation...otherwise normal echo. : , patient was in the hospital Monday, told to purchase ligament belt... Flowsheet Date 02/06/2018 Sweeney Score Blood Edema Fundus Height Fundus Units Glucose Ketones Leukocytes Nitrite Labor Signs Protein Cervic Dilation Cervic Effacement Cervic Station Type Weight in lbs Pre/Post Dialysis Refused BP Diastolic BP Location Tested BP Systolic BP Type Fetus Heart Rate Present Fetus Movement Comments Flowsheet Date 03/06/2018 Sweeney Score Blood Edema Fundus Height Fundus Units Glucose Ketones Leukocytes Nitrite Labor Signs Protein Cervic Dilation Cervic Effacement Cervic Station trace 29 wks none trace Negative none trace Type Weight in lbs Pre/Post Dialysis Refused Weight 205.426354808495 BP Diastolic BP Location Tested BP Systolic BP Type 82 111 Fetus Heart Rate Present A 140 Present Fetus Movement A Yes Comments KICK COUNT, PTL PRECAUTIONS , ROUTINE COUNSELING GTT PASSEDF/U BY ENDOCRINE -- ON SYNTHRYOID 225MCG Flowsheet Date 03/28/2018 Sweeney Score Blood Edema Fundus Height Fundus Units Glucose Ketones Leukocytes Nitrite Labor Signs Protein Cervic Dilation Cervic Effacement Cervic Station trace 32 wks none negative Negative none neg Type Weight in lbs Pre/Post Dialysis Refused Weight 213.333932977986 BP Diastolic BP Location Tested BP Systolic BP Type 73 111 Fetus Heart Rate Present A 130 Present Fetus Movement A Yes Comments KICK COUNT, LABOR PRECAUTION S, ROUTINE COUNSELING Flowsheet Date 04/06/2018 Sweeney Score Blood Edema Fundus Height Fundus Units Glucose Ketones Leukocytes Nitrite Labor Signs Protein Cervic Dilation Cervic Effacement Cervic Station trace 33 cm none negative Negative Pressure neg Type Weight in lbs Pre/Post Dialysis Refused Weight 216.76683813208 BP Diastolic BP Location Tested BP Systolic BP Type 76 113 Fetus Heart Rate Present A 150 Fetus Movement A Decreased Comments cramping; she presents today complaining of decreased movement and increased peripheral swelling in hands and feet. complains of vulvar pain and swelling, describes normal white discharge. : EXAM: vulva & vagina normal. Order NST & BPP. Advise reduce salt intake, elevate legs as much and often as possible. Flowsheet Date 04/06/2018 Sweeney Score Blood Edema Fundus Height Fundus Units Glucose Ketones Leukocytes Nitrite Labor Signs Protein Cervic Dilation Cervic Effacement Cervic Station Type Weight in lbs Pre/Post Dialysis Refused BP Diastolic BP Location Tested BP Systolic BP Type Fetus Heart Rate Present Fetus Movement Comments Flowsheet Date 04/06/2018 Sweeney Score Blood Edema Fundus Height Fundus Units Glucose Ketones Leukocytes Nitrite Labor Signs Protein Cervic Dilation Cervic Effacement Cervic Station Type Weight in lbs Pre/Post Dialysis Refused BP Diastolic BP Location Tested BP Systolic BP Type Fetus Heart Rate Present Fetus Movement Comments Flowsheet Date 04/17/2018 Sweeney Score Blood Edema Fundus Height Fundus Units Glucose Ketones Leukocytes Nitrite Labor Signs Protein Cervic Dilation Cervic Effacement Cervic Station none 35 cm none negative Negative 1+ Type Weight in lbs Pre/Post Dialysis Refused Weight 217.437429300942 BP Diastolic BP Location Tested BP Systolic BP Type 74 107 Fetus Heart Rate Present Fetus Movement A Yes Comments heart rate was persist ently elevated and required NST today to r/o tachycardia. NST was reactive, no issues..pt reassured. PTL precautions given Flowsheet Date 04/17/2018 Sweeney Score Blood Edema Fundus Height Fundus Units Glucose Ketones Leukocytes Nitrite Labor Signs Protein Cervic Dilation Cervic Effacement Cervic Station Type Weight in lbs Pre/Post Dialysis Refused BP Diastolic BP Location Tested BP Systolic BP Type Fetus Heart Rate Present Fetus Movement Comments Flowsheet Date 04/24/2018 Sweeney Score Blood Edema Fundus Height Fundus Units Glucose Ketones Leukocytes Nitrite Labor Signs Protein Cervic Dilation Cervic Effacement Cervic Station Type Weight in lbs Pre/Post Dialysis Refused Weight 226.667822612584 BP Diastolic BP Location Tested BP Systolic BP Type 89 122 Fetus Heart Rate Present Fetus Movement Comments Flowsheet Date 04/24/2018 Sweeney Score Blood Edema Fundus Height Fundus Units Glucose Ketones Leukocytes Nitrite Labor Signs Protein Cervic Dilation Cervic Effacement Cervic Station none 35 cm none negative Negative none trace Type Weight in lbs Pre/Post Dialysis Refused Weight 226.491987472150 BP Diastolic BP Location Tested BP Systolic BP Type 89 122 sitting Fetus Heart Rate Present Fetus Movement A Yes Comments IUP at 35.3 weeks gestation. Growth US on 04/06/18 57%. Reports increased lower extremity edema, worsened while standing at work, is considering taking maternity leave. Denies headache or epigastric pain. Reports spots in front of eyes on two occasions in the last 2 weeks. [facility] labs sent today. Reports + FM today. Denies LOF, VB, or UC. Reactive NST today. Reviewed kick counts, labor precautions, and pre-eclampsia education. RTO 3 days for NST/BP check/review labs and one week for visit. Flowsheet Date 04/27/2018 Sweeney Score Blood Edema Fundus Height Fundus Units Glucose Ketones Leukocytes Nitrite Labor Signs Protein Cervic Dilation Cervic Effacement Cervic Station 1+ 35 cm none negative Negative trace Type Weight in lbs Pre/Post Dialysis Refused Weight 229.367077053121 BP Diastolic BP Location Tested BP Systolic BP Type 91 128 Fetus Heart Rate Present A 155 Present Fetus Movement Comments doing well, no new issues, p reterm labor precautions given, biweekly NST Flowsheet Date 04/27/2018 Sweeney Score Blood Edema Fundus Height Fundus Units Glucose Ketones Leukocytes Nitrite Labor Signs Protein Cervic Dilation Cervic Effacement Cervic Station Type Weight in lbs Pre/Post Dialysis Refused BP Diastolic BP Location Tested BP Systolic BP Type Fetus Heart Rate Present Fetus Movement Comments Flowsheet Date 05/01/2018 Sweeney Score Blood Edema Fundus Height Fundus Units Glucose Ketones Leukocytes Nitrite Labor Signs Protein Cervic Dilation Cervic Effacement Cervic Station none none negative Negative trace Type Weight in lbs Pre/Post Dialysis Refused Weight 227.027901819004 BP Diastolic BP Location Tested BP Systolic BP Type 87 118 Fetus Heart Rate Present Fetus Movement A Yes Comments Flowsheet Date 05/01/2018 Sweeney Score Blood Edema Fundus Height Fundus Units Glucose Ketones Leukocytes Nitrite Labor Signs Protein Cervic Dilation Cervic Effacement Cervic Station 36 cm none Type Weight in lbs Pre/Post Dialysis Refused BP Diastolic BP Location Tested BP Systolic BP Type Fetus Heart Rate Present Fetus Movement A Yes Comments vitals above charted under N ST.IUP at 36.3 weeks. Reports + FM. Denies LOF, VB, or UC. Reactive NST today, continue biweekly for BMI. Reviewed labor precautions, kick counts, and pre-eclampsia education. Recording blood pressure at home due to PIH without pre-eclampsia, at home 130/90 highest. Given note for work for maternity leave. RTO 1 week for visit. Flowsheet Date 05/04/2018 Sweeney Score Blood Edema Fundus Height Fundus Units Glucose Ketones Leukocytes Nitrite Labor Signs Protein Cervic Dilation Cervic Effacement Cervic Station Type Weight in lbs Pre/Post Dialysis Refused Weight 227.973462787817 BP Diastolic BP Location Tested BP Systolic BP Type 98 130 Fetus Heart Rate Present Fetus Movement Comments Flowsheet Date 05/09/2018 Sweeney Score Blood Edema Fundus Height Fundus Units Glucose Ketones Leukocytes Nitrite Labor Signs Protein Cervic Dilation Cervic Effacement Cervic Station Type Weight in lbs Pre/Post Dialysis Refused Weight 226.576402021982 BP Diastolic BP Location Tested BP Systolic BP Type 97 125 Fetus Heart Rate Present Fetus Movement Comments Flowsheet Date 05/09/2018 Sweeney Score Blood Edema Fundus Height Fundus Units Glucose Ketones Leukocytes Nitrite Labor Signs Protein Cervic Dilation Cervic Effacement Cervic Station none 37 cm none negative Negative none trace 1cm 4 0% -2 Type Weight in lbs Pre/Post Dialysis Refused Weight 226.382615069614 BP Diastolic BP Location Tested BP Systolic BP Type 97 125 sitting Fetus Heart Rate Present A 140 Fetus Movement A Yes Comments Reactive NST today, irregula r UC not felt by pt. Denies LOF or VB. Reports + FM. Was seen at [facility] ED this past Monday for DBP 100 at home without symptoms, was told her labs were WNL and was dc'd home. Denies s/s pre-eclampsia today. IOL requested at 39 weeks due to PIH. Reviewed labor precautions, kick counts, and pre- eclampsia precautions. RTO 1 week for , continue biweekly NST. Flowsheet Date 05/11/2018 Sweeney Score Blood Edema Fundus Height Fundus Units Glucose Ketones Leukocytes Nitrite Labor Signs Protein Cervic Dilation Cervic Effacement Cervic Station Type Weight in lbs Pre/Post Dialysis Refused BP Diastolic BP Location Tested BP Systolic BP Type Fetus Heart Rate Present Fetus Movement Comments Flowsheet Date 05/15/2018 Sweeney Score Blood Edema Fundus Height Fundus Units Glucose Ketones Leukocytes Nitrite Labor Signs Protein Cervic Dilation Cervic Effacement Cervic Station Type Weight in lbs Pre/Post Dialysis Refused Weight 230.501425340834 BP Diastolic BP Location Tested BP Systolic BP Type 78 118 sitting Fetus Heart Rate Present Fetus Movement Comments Flowsheet Date 05/18/2018 Sweeney Score Blood Edema Fundus Height Fundus Units Glucose Ketones Leukocytes Nitrite Labor Signs Protein Cervic Dilation Cervic Effacement Cervic Station 1+ 39 cm none negative Negative none 1+ 1cm 20 % -3 Type Weight in lbs Pre/Post Dialysis Refused Weight 230.198041013953 BP Diastolic BP Location Tested BP Systolic BP Type 91 121 sitting Fetus Heart Rate Present A 145 Present Fetus Movement A Yes Comments IUP at 38.6 weeks. Reports + FM. Irregular contractions last night. Cervix as above. Denies LOF or VB. Denies s/s of pre-eclampsia. Reactive NST today. Has IOL scheduled tomorrow 6 pm [facility] for PIH at 39 weeks. Reviewed labor precautions, kick counts, and pre-eclampsia precautions. Flowsheet Date 05/18/2018 Sweeney Score Blood Edema Fundus Height Fundus Units Glucose Ketones Leukocytes Nitrite Labor Signs Protein Cervic Dilation Cervic Effacement Cervic Station Type Weight in lbs Pre/Post Dialysis Refused Weight 230.944452069175 BP Diastolic BP Location Tested BP Systolic BP Type 91 121 Fetus Heart Rate Present Fetus Movement Comments Menstrual History Last Menstrual Date Menses Monthly On Bcp Conception Prior Menses Frequency Hcg Plus Date Menarche Onset Age 0608/19/2017 true 28 14 Genetic Screening And Infection History Question Response Note HEMOGLOBIN ELECTROPHORESIS ABNORMAL false SMA Test POSITIVE false Fragile-X Test POSITIVE false Lopes's Syndrome false Factor V Leiden deficiency carrier false Muscular Dystrophy false Factor XI deficiency false other false Hemoglobinopathy false Cleft Lip or Cleft Palate false Cleft Palate false Cystic Fibrosis carrier false Thalassemia (Syrian, Paraguayan, Mediterranean, Or Background): MCV < 80 false Sickle Cell Disease false AMA Patient Age Will Be 35 Y ears Or Older At Estimated Date of Delivery false Thalassemia (Syrian, Paraguayan, Mediterranean, Or Background): MCV < 80 false Neural Tube Defect (Meningom yelocele, Spina Bifida, Or Anencephaly) false Congenital Heart Defect false Down Syndrome false Herbert-Sachs carrier (eg, Catholic, Cajun, Greek-Can adian) false Reid Disease false Sickle Cell Disease false Hemophilia Or Other Blood Disorders false Muscular Dystrophy false Cystic Fibrosis carrier false Reinaldo's Chorea false Autism/Mental Retardation false Inherited Genetic Or Chromosomal Disorder false Maternal Metabolic Disorder (eg, Type 1 Diabetes , PKU) false Patient Or Baby's Father Had A Child With Defects Not Listed Above false Recurrent Loss, Or A Stillbirth false Do you use any Illicit or recreational drugs? tr ue PNV, Fe, Synthroid If Yes, Agent(s) And Strength/Dosage false Any Other Genetic History? false Tuberculosis (Positive, live s with someone with TB or other exposure) false Patient Or Partner Has History Of Genital Herpes false Rash Or Viral Illness Since Last Menstrual Perio d false Sexually Transmitted Disease (STD) history, Gonorrhea, Chlamydia, HPV, Syphilis false Other Infection History? false HIV Positive false History of Hepatitis B or C false Group B Strep (GBS) infection in a prior pregnan cy false SMA carrier false Gaucher Disease carrier false Hydrocephalus, congenital false Factor XI Deficiency false Congenital Heart Defect false Down Syndrome false HEMOGLOBIN ELECTROPHORESIS NORMAL true CF, SMA, FRAG-X NEGATIVE false CF, SMA, FRAG-X POSITIVE false Cystic Fibrosis Test POSITIVE false Sickle Cell Trait false Mental Retardation/Autism false GBS (Group B Strep) POS false Fragile-X carrier false Catholic Panel POSITIVE false APA Father of baby is currently age 40 or over f alse Plans and Education First Trimester Discussed Date Discussion Item Discussion Note Discuss ed By Second Trimester Discussed Date Discussion Item Discussion Note Discuss ed By 11/28/2017 Signs and symptoms of labor [email or web address] Third Trimester Discussed Date Discussion Item Discussion Note Discuss ed By Delivery Information Delivery Date Delivery Type Labor Anesthesia Weeks Gestation Incision Type Labor Labor Length Hrs Delivered By Post Complications [facility]2018 PIH, HYPOTHYRO IDISM, ANEMIA Discharge Information Feeding Method Contraceptive Method Maternal HG B and HCT Levels Ob Episode Information Episode Created Date Number of Fetuses Patient Bloodtype Patient rh Status Prepregnancy Weight lbs Domestic Partner Domestic Partner Phone Father Name Base Remover Status 11/14/19 19 1 O Positive CLOSED Fetus Data First Name Last Name Admitted to NICU Weight (g) Sex Living Outcome Pediatric Complications Fetus ID Race Codes Race Delivery Type 3316.89 15 F true Full Term [id number] Problems Problem Notes Hx of PIH last wit hout meds. NIPS: Horizon screen negative 10/2017; [id number] to be drawn after 10 weeks Problem Name Start Date End Date Resolution Snomed Code Not e Maternal obesity complicating , childbirth and the puerperium, antepartum 11/13/2018 [id number] Hypothyroidism 11/28/2017 [id number] Onse t ; 2 weeks after / placed on Syntroid 200mcg daily;Endocrine>> Dr. Sotelo (endo) Juanjo Calculation Initial Juanjo Date Initial Exam Date Initial Exam Provider Initial Ultrasound Date Last Menstrual Period Date Ultra Sound Weeks Gestation 06/23/2019 11/13/2018 11/13/2018 08/29/2018 8 Eighteen To Twenty Week Juanjo Update Ultra Sound Date Fundal Height At Umbil Quickening Date Ultra Sound Latest Weeks Gestation Final Juanjo Confirmed By Final Juanjo Confirmed Date Final Juanjo Date Ultra Sound Latest Days Gestation 0 06/23/19 20 0 Pre- Flowsheet Flowsheet Date 11/13/2018 Sweeney Score Blood Edema Fundus Height Fundus Units Glucose Ketones Leukocytes Nitrite Labor Signs Protein Cervic Dilation Cervic Effacement Cervic Station none Type Weight in lbs Pre/Post Dialysis Refused Weight 211.030327092302 BP Diastolic BP Location Tested BP Systolic BP Type 74 112 sitting Fetus Heart Rate Present A Present Fetus Movement Comments Here for confirmat ion, but POP done at outside clinic. Initial OB US done today here confirms viable IUP at 8.2 weeks which is used for dating due to irregular cycles, per ACOG guidelines. Initial OB labs drawn today. Hx of Hypothyroidism. Saw her controls engineer last week with thyroid function labs done and sees him every 4-6 weeks, asked her to sign release for records. Hx of PIH last without medications and anemia of , still has iron tablets that she is taking. Does complain of nausea and vomiting all day every day and that she cannot keep any food down. RX sent for Diclegis. Denies cramping or vaginal bleeding. Reviewed first trimester education including diet, exercise, early GTT screen due to BMI, NIPS after 10 weeks gestation (Horizon screen done last year Normal), Initial OB labs, perinatology consult, and NT US in 4 weeks. RTO 1 week for New OB visit. Flowsheet Date 11/13/2018 Sweeney Score Blood Edema Fundus Height Fundus Units Glucose Ketones Leukocytes Nitrite Labor Signs Protein Cervic Dilation Cervic Effacement Cervic Station Type Weight in lbs Pre/Post Dialysis Refused BP Diastolic BP Location Tested BP Systolic BP Type Fetus Heart Rate Present Fetus Movement Comments Flowsheet Date 11/20/2018 Sweeney Score Blood Edema Fundus Height Fundus Units Glucose Ketones Leukocytes Nitrite Labor Signs Protein Cervic Dilation Cervic Effacement Cervic Station none none negative Negative none neg Type Weight in lbs Pre/Post Dialysis Refused Weight 208.279129598771 BP Diastolic BP Location Tested BP Systolic BP Type 77 111 sitting Fetus Heart Rate Present Fetus Movement A Yes Comments Feeling well. No complaints. Reviewed initial OB labs, HgbA1C in prediabetic range, discussed diet and exercise. Early GTT not done yet, has lab req to complete. Pap normal 11/2017 deferred today. She switched endocrinologists, now see Dr Demar Melgar, on levothyroxine 200 mcg daily, has repeat labs in 2 weeks with them, requested records to be sent. Submitted shira consult due to BMI and history of PIH in prior delivered in April 2018 . Reviewed NIPS: Horizon screen negative 10/2017; [id number] to be drawn after 10 weeks. RTO 3 weeks for NT US and visit. Flowsheet Date 12/11/2018 Sweeney Score Blood Edema Fundus Height Fundus Units Glucose Ketones Leukocytes Nitrite Labor Signs Protein Cervic Dilation Cervic Effacement Cervic Station none 12 cm none negative Negative none neg Type Weight in lbs Pre/Post Dialysis Refused Weight 206.079250854250 BP Diastolic BP Location Tested BP Systolic BP Type 73 104 sitting Fetus Heart Rate Present A 157 Present Fetus Movement A No Comments Successful NT US today. Repo rts nausea all day. Diclegis not covered with insurance, discussed OTC Vitamin B6/Unisom. Reports allergies, recommended Claritin. Denies cramping or vaginal bleeding. Has not done early GTT yet, but states she will be soon. Has consult with shira scheduled on 12/25. RTO 3 weeks for visit. Flowsheet Date 12/11/2018 Sweeney Score Blood Edema Fundus Height Fundus Units Glucose Ketones Leukocytes Nitrite Labor Signs Protein Cervic Dilation Cervic Effacement Cervic Station Type Weight in lbs Pre/Post Dialysis Refused BP Diastolic BP Location Tested BP Systolic BP Type Fetus Heart Rate Present Fetus Movement Comments Flowsheet Date 12/25/2018 Sweeney Score Blood Edema Fundus Height Fundus Units Glucose Ketones Leukocytes Nitrite Labor Signs Protein Cervic Dilation Cervic Effacement Cervic Station Type Weight in lbs Pre/Post Dialysis Refused Weight 203.30011661540 BP Diastolic BP Location Tested BP Systolic BP Type 75 109 Fetus Heart Rate Present Fetus Movement Comments Flowsheet Date 01/01/2019 Sweeney Score Blood Edema Fundus Height Fundus Units Glucose Ketones Leukocytes Nitrite Labor Signs Protein Cervic Dilation Cervic Effacement Cervic Station none 17 cm none small Negative none trace Type Weight in lbs Pre/Post Dialysis Refused Weight 202.984371822150 BP Diastolic BP Location Tested BP Systolic BP Type 66 R arm 99 sitting Fetus Heart Rate Present A 145 Present Fetus Movement A Yes Comments Overall doing very good, fee ling well. Reports some low back aches relieved with heating pad. Encouraged increased water intake. Nausea has resolved since last visit. Reports no changes in thyroid meds, Synthroid 225 daily. Completed shira consult 12/25. LDA was recommended, states he has not started yet due to she was unsure if it was safe. I educated her and informed her that research shows that when started before 16 weeks in it can reduce risk of pre-eclampsia and that we would stop it at 36 weeks gestation. She felt better after education and states she will start today. Has not completed GTT. I reprinted the order req and she states she will go this week to complete. AFP drawn today. Reviewed threatened AB education with patient. RTO 3 weeks for visit. Flowsheet Date 01/17/2019 Sweeney Score Blood Edema Fundus Height Fundus Units Glucose Ketones Leukocytes Nitrite Labor Signs Protein Cervic Dilation Cervic Effacement Cervic Station none none negative Negative none neg Type Weight in lbs Pre/Post Dialysis Refused Weight 207.216097513042 BP Diastolic BP Location Tested BP Systolic BP Type 70 L arm 114 sitting Fetus Heart Rate Present A 148 Present Fetus Movement A Yes Comments 17.4 weeks gestation. Pt has been taking LDA. Synthroid remains the same. Threatened AB precautions reviewed. L2 US and Shira visit scheduled on 02/06/19. AFP normal. Pt went to ER last week with SOB and had negative chest x-ray. Pt states it was probably stress related and nasal congestion. Pt counselled on benadryl and claritin use. Pt to RTO in 4 weeks. Flowsheet Date 02/06/2019 Sweeney Score Blood Edema Fundus Height Fundus Units Glucose Ketones Leukocytes Nitrite Labor Signs Protein Cervic Dilation Cervic Effacement Cervic Station Type Weight in lbs Pre/Post Dialysis Refused BP Diastolic BP Location Tested BP Systolic BP Type Fetus Heart Rate Present Fetus Movement Comments Flowsheet Date 02/06/2019 Sweeney Score Blood Edema Fundus Height Fundus Units Glucose Ketones Leukocytes Nitrite Labor Signs Protein Cervic Dilation Cervic Effacement Cervic Station Type Weight in lbs Pre/Post Dialysis Refused Weight 210.909991083215 BP Diastolic BP Location Tested BP Systolic BP Type 71 102 Fetus Heart Rate Present Fetus Movement Comments Flowsheet Date 02/06/2019 Sweeney Score Blood Edema Fundus Height Fundus Units Glucose Ketones Leukocytes Nitrite Labor Signs Protein Cervic Dilation Cervic Effacement Cervic Station none 20 cm none negative Negative none neg Type Weight in lbs Pre/Post Dialysis Refused Weight 208.531042556903 BP Diastolic BP Location Tested BP Systolic BP Type 75 107 Fetus Heart Rate Present A 145 Present Fetus Movement A Yes Comments Feeling well. Reports catherine glover, discussed hydration, E-RX sent for Miralax, and Colace. Normal anatomy with Total placenta previa on Level 2 US today, discussed precautions and scheduled for follow up US. Echo recommended. Case submitted. Passed early GTT screening. Hypothyroid: taking synthroid 250 mcg (just increased yesterday by Dr Demar Melgar, endocrinology) States had TSH on 01/29 and it was high. Endocrine records requested per perinatology at todays consult. RTO 3 weeks for visit. Flowsheet Date 02/25/2019 Sweeney Score Blood Edema Fundus Height Fundus Units Glucose Ketones Leukocytes Nitrite Labor Signs Protein Cervic Dilation Cervic Effacement Cervic Station none 23 cm none negative Negative none neg Type Weight in lbs Pre/Post Dialysis Refused Weight 212.66461137030 BP Diastolic BP Location Tested BP Systolic BP Type 67 98 sitting Fetus Heart Rate Present A 140 Present Fetus Movement A Yes Comments Feeling well, no complaints. Reports active fetus. Denies cramping or vaginal bleeding. Has follow up Level 2 US and shira visit scheduled 03/12 to recheck placenta location. Has not been contacted with appt date for echo, I asked the front end software engineer to call coordinator yoni/gustavo to call today and request appt date (case has already been submitted and received by them on 02/07). RTO 3 weeks for visit. Flowsheet Date 03/12/2019 Sweeney Score Blood Edema Fundus Height Fundus Units Glucose Ketones Leukocytes Nitrite Labor Signs Protein Cervic Dilation Cervic Effacement Cervic Station Type Weight in lbs Pre/Post Dialysis Refused BP Diastolic BP Location Tested BP Systolic BP Type Fetus Heart Rate Present Fetus Movement Comments Flowsheet Date 03/12/2019 Sweeney Score Blood Edema Fundus Height Fundus Units Glucose Ketones Leukocytes Nitrite Labor Signs Protein Cervic Dilation Cervic Effacement Cervic Station Type Weight in lbs Pre/Post Dialysis Refused Weight 215.743277749222 BP Diastolic BP Location Tested BP Systolic BP Type 70 105 Fetus Heart Rate Present Fetus Movement Comments Flowsheet Date 03/19/2019 Sweeney Score Blood Edema Fundus Height Fundus Units Glucose Ketones Leukocytes Nitrite Labor Signs Protein Cervic Dilation Cervic Effacement Cervic Station none 27 cm none moderate Negative none trace Type Weight in lbs Pre/Post Dialysis Refused Weight 217.135148896460 BP Diastolic BP Location Tested BP Systolic BP Type 69 102 Fetus Heart Rate Present A 155 Present Fetus Movement A Yes Comments Was seen in OB ED yesterday due to her partner and child have the flu, she does not, but was prescribed Tamiflu due to exposure prophylaxis.. OB US on 03/12 Growth is 65%. Has echo scheduled 03/26. TSH levels being monitored by Perinatology now due to change of insurance and she cannot see her controls engineer now. Currently on Synthroid 250 mcg daily. Instructions and lab req given for third trimester labs to complete at next visit. Recommended TDaP vaccine at next visit, information provided. Reveiwed kick counts, pre-eclampsia screening, and labor education. RTO 2 weeks for visit. Flowsheet Date 04/02/2019 Sweeney Score Blood Edema Fundus Height Fundus Units Glucose Ketones Leukocytes Nitrite Labor Signs Protein Cervic Dilation Cervic Effacement Cervic Station none 28 cm none Type Weight in lbs Pre/Post Dialysis Refused Weight 217.730242338269 BP Diastolic BP Location Tested BP Systolic BP Type 62 R arm 94 sitting Fetus Heart Rate Present A 146 Present Fetus Movement A Yes Comments 28.2 weeks gestation. active fetus. No complaints. Pt having 28 week labs drawn today. Pt unable to void as she voided for the lab before visit. Pt states she will have echo f/u next week. Pt plans to have Tdap in May. Pt has growth US scheduled 04/16/2019. FMC, PIH and PTL precautions reviewed. Pt to RTO in 2 weeks. Flowsheet Date 04/16/2019 Sweeney Score Blood Edema Fundus Height Fundus Units Glucose Ketones Leukocytes Nitrite Labor Signs Protein Cervic Dilation Cervic Effacement Cervic Station Type Weight in lbs Pre/Post Dialysis Refused BP Diastolic BP Location Tested BP Systolic BP Type Fetus Heart Rate Present Fetus Movement Comments Flowsheet Date 04/16/2019 Sweeney Score Blood Edema Fundus Height Fundus Units Glucose Ketones Leukocytes Nitrite Labor Signs Protein Cervic Dilation Cervic Effacement Cervic Station Type Weight in lbs Pre/Post Dialysis Refused Weight 218.29539346186 BP Diastolic BP Location Tested BP Systolic BP Type 74 106 Fetus Heart Rate Present Fetus Movement Comments Flowsheet Date 04/16/2019 Sweeney Score Blood Edema Fundus Height Fundus Units Glucose Ketones Leukocytes Nitrite Labor Signs Protein Cervic Dilation Cervic Effacement Cervic Station none 32 cm none small Negative none neg Type Weight in lbs Pre/Post Dialysis Refused Weight 217.256116237048 BP Diastolic BP Location Tested BP Systolic BP Type 66 L arm 93 sitting Fetus Heart Rate Present A 140 Present Fetus Movement A Yes Comments Patient doing well. Complain s of sciatic nerve pain, states she is going to get bands for comfort. States positive movement. Denies abd pain or contractions. U/S done today, growth 64% for gestational age, 3lb 13oz. Is having thyroid levels checked today. RTO in 2 weeks for visit and to start biweekly NST. Flowsheet Date 04/30/2019 Sweeney Score Blood Edema Fundus Height Fundus Units Glucose Ketones Leukocytes Nitrite Labor Signs Protein Cervic Dilation Cervic Effacement Cervic Station Type Weight in lbs Pre/Post Dialysis Refused Weight 222.881845833262 BP Diastolic BP Location Tested BP Systolic BP Type 59 95 Fetus Heart Rate Present Fetus Movement Comments Flowsheet Date 04/30/2019 Sweeney Score Blood Edema Fundus Height Fundus Units Glucose Ketones Leukocytes Nitrite Labor Signs Protein Cervic Dilation Cervic Effacement Cervic Station none 32 cm none negative Negative none neg Type Weight in lbs Pre/Post Dialysis Refused Weight 222.314339355345 BP Diastolic BP Location Tested BP Systolic BP Type 59 L arm 95 sitting Fetus Heart Rate Present A 145 Present Fetus Movement A Yes Comments 32.2 weeks gestation. active fetus. Pt c/o round ligament discomfort. Pt advised to wear maternity support belt daily. Pt has growth US and consult with Shira scheduled on 05/28/2019. Pt aware. NST in office today for obesity is reactive. Pt has been taking synthroid 250 mcg daily but has appt with Dr Zuleyma Campbell endocrine specialist today. Pt counselled on FMC, PIH and PTL precautions. Pt to RTO in 2 weeks. Flowsheet Date 05/07/2019 Sweeney Score Blood Edema Fundus Height Fundus Units Glucose Ketones Leukocytes Nitrite Labor Signs Protein Cervic Dilation Cervic Effacement Cervic Station none 34 cm none trace Negative Pressure trace Type Weight in lbs Pre/Post Dialysis Refused Weight 224.904858576772 BP Diastolic BP Location Tested BP Systolic BP Type 85 L arm 122 sitting Fetus Heart Rate Present A 140 Present Fetus Movement A Yes Comments Has been having pelvic press ure, cramping and low back pain. Was seen at [facility] for these sxs on 05/03/2019 and labor ruled out. It was recommended that she try using a maternity belt; she has ordered one. Labor precautions d/w pt. Advised her to go back to L&D if the sxs worsen. Return 2 wks. Flowsheet Date 05/15/2019 Sweeney Score Blood Edema Fundus Height Fundus Units Glucose Ketones Leukocytes Nitrite Labor Signs Protein Cervic Dilation Cervic Effacement Cervic Station none 30 cm none negative Negative Cramping trace Type Weight in lbs Pre/Post Dialysis Refused Weight 225.294139291378 BP Diastolic BP Location Tested BP Systolic BP Type 84 105 Fetus Heart Rate Present A 153 Present Fetus Movement A Yes Comments Doing well, no new issues, b reech presentation at last u/s and today on exam, possible c/s will revisit presentation as we get closer to term, precautions given Flowsheet Date 05/28/2019 Sweeney Score Blood Edema Fundus Height Fundus Units Glucose Ketones Leukocytes Nitrite Labor Signs Protein Cervic Dilation Cervic Effacement Cervic Station Type Weight in lbs Pre/Post Dialysis Refused BP Diastolic BP Location Tested BP Systolic BP Type Fetus Heart Rate Present Fetus Movement Comments Flowsheet Date 05/28/2019 Sweeney Score Blood Edema Fundus Height Fundus Units Glucose Ketones Leukocytes Nitrite Labor Signs Protein Cervic Dilation Cervic Effacement Cervic Station Type Weight in lbs Pre/Post Dialysis Refused Weight 229.705871752785 BP Diastolic BP Location Tested BP Systolic BP Type 83 116 Fetus Heart Rate Present Fetus Movement Comments Flowsheet Date 06/04/2019 Sweeney Score Blood Edema Fundus Height Fundus Units Glucose Ketones Leukocytes Nitrite Labor Signs Protein Cervic Dilation Cervic Effacement Cervic Station trace 36 cm none negative Negative neg 0cm 2 0% -4 Type Weight in lbs Pre/Post Dialysis Refused Weight 230.070352439691 BP Diastolic BP Location Tested BP Systolic BP Type 71 96 Fetus Heart Rate Present A 148 Present Fetus Movement A Yes Comments Having some pelvic cramps. R equesting Tdap vaccine; advised pt she will need to go to the HD or her PCP for the vaccine. Last OB US done on 05/27 showed EFW of 7 lbs 13 oz with growth at 89% and BPD & AC at > 99%. Next growth scan is scheduled on 06/12. Free T4 was low on 04/16. Pt reports seeing her controls engineer since then and her Synthroid was increased to 250 mcg per day. She had a repeat normal Free T4 in mid to late April with her controls engineer. Today, NST is reactive; no contractions present. BPP 8/8 (BLANCHE 15 cm, MVP 5 cm). To have weekly NSTs & BPP. GBS/GC/CT collected today. Lab slip given for CBC. Labor precautions. Return 1 wk. Flowsheet Date 06/04/2019 Sweeney Score Blood Edema Fundus Height Fundus Units Glucose Ketones Leukocytes Nitrite Labor Signs Protein Cervic Dilation Cervic Effacement Cervic Station Type Weight in lbs Pre/Post Dialysis Refused Weight 230.856663053604 BP Diastolic BP Location Tested BP Systolic BP Type 71 96 Fetus Heart Rate Present Fetus Movement Comments Flowsheet Date 06/04/2019 Sweeney Score Blood Edema Fundus Height Fundus Units Glucose Ketones Leukocytes Nitrite Labor Signs Protein Cervic Dilation Cervic Effacement Cervic Station Type Weight in lbs Pre/Post Dialysis Refused BP Diastolic BP Location Tested BP Systolic BP Type Fetus Heart Rate Present Fetus Movement Comments Flowsheet Date 06/06/2019 Sweeney Score Blood Edema Fundus Height Fundus Units Glucose Ketones Leukocytes Nitrite Labor Signs Protein Cervic Dilation Cervic Effacement Cervic Station Type Weight in lbs Pre/Post Dialysis Refused 0.0 Not Performed BP Diastolic BP Location Tested BP Systolic BP Type Fetus Heart Rate Present Fetus Movement A Yes Comments pt called after hours c/o bl eeding this am of bleeding after sex. also was recently examined in the office this week. The amount is not heavy but it is still there after several hours. Denies contractions but has occasional cramps; Pt denies any issues with her placenta. Recommend pt could go to [facility] to get checked or call office in a few hours for in office f/u today. Pt stated she will call the office later. Menstrual History Last Menstrual Date Menses Monthly On Bcp Conception Prior Menses Frequency Hcg Plus Date Menarche Onset Age 0708/29/2018 Delivery Information Delivery Date Delivery Type Labor Anesthesia Weeks Gestation Incision Type Labor Labor Length Hrs Delivered By Post Complications Tubal Sterilization Discharge Date Comments 0 Sponta neous None 38.1 false dteagarden 2 false 06/12/2019 HYPOTHYRO IDISM, OBESITY Discharge Information Feeding Method Contraceptive Method Maternal HG B and HCT Levels
--- OUTSIDE RECORDS SUMMARY | 2024-08-19 13:34 | XMS_ITS | Encounter Summary ---
Author Organization [facility] Address [address] [place] [address] Care Team Providers Care Performance Tester Name Role Phone Unavailable Primary Care Provider Unavailabl e Encounter Details Date Type Department Care Team (Late Contact Info) Description 08/18/2022 Abstract [facility] [address] [place] [address] Ha Baker [facility] [address] [place], [place] [id number] Social History Tobacco Use Types Packs/Day Years [...] 09/05/2024 1:00 PM EDT Ancillary Procedure [facility] [address] [place] [address] 09/05/2024 1:30 PM EDT Initial [facility] [address] [place] [address] 10/04/2024 10:40 AM EDT Office Visit [facility] [address] [place] [address] Allen Carr MD [address] [place] [address] documented as of this encounter Visit Diagnoses Not on filedocumented in this encounter
--- OUTSIDE RECORDS SUMMARY | 2024-08-19 13:34 | XMS_ITS | Encounter Summary ---
Author Organization [facility] Address [address] [place] [address] Care Team Providers Care Strategic Alliances Manager Name Role Phone Unavailable Primary Care Provider Unavailabl e Encounter Details Date Type Department Care Team (Late Contact Info) Description 08/17/2022 Abstract [facility] [address] [place] [address] Ha Baker [facility] [address] [place], [place] [id number] Social History Tobacco Use Types Packs/Day Years [...] 09/05/2024 1:00 PM EDT Ancillary Procedure [facility] [address] [place] [address] 09/05/2024 1:30 PM EDT Initial [facility] [address] [place] [address] 10/04/2024 10:40 AM EDT Office Visit [facility] [address] [place] [address] Allen Carr MD [address] [place] [address] documented as of this encounter Visit Diagnoses Not on filedocumented in this encounter
--- OUTSIDE RECORDS SUMMARY | 2024-08-19 13:34 | XMS_ITS | Encounter Summary ---
Author Organization [facility] Address [address] [place] [address] Care Team Providers Care Final Cigar And Box Examiner Name Role Phone Unavailable Primary Care Provider Unavailabl e Encounter Details Date Type Department Care Team (Late Contact Info) Description 08/05/2022 Orders Only [facility] [address] [facility] [place] [address] Calista Khan LPN Social History Tobacco Use Types Packs/Day Years [...] 09/05/2024 1:00 PM EDT Ancillary Procedure [facility] [address] [facility] [address] 09/05/2024 1:30 PM EDT Initial [facility] [address] [place] [address] 10/04/2024 10:40 AM EDT Office Visit [facility] [address] [place] [address] Allen Carr MD [address] [place] [address] documented as of this encounter Visit Diagnoses Not on filedocumented in this encounter
--- OUTSIDE RECORDS SUMMARY | 2024-08-19 13:34 | XMS_ITS | Encounter Summary ---
Author Organization [facility] Address [address] [place] [address] Care Team Providers Care Master Chef Name Role Phone Unavailable Primary Care Provider Unavailabl e Encounter Details Date Type Department Care Team (Late Contact Info) Description 09/06/2022 Abstract [facility] [address] [place] [address] [facility] [address] [place], [facility] Social History Tobacco Use Types Packs/Day Years [...] [facility] [address] [place] [address] 09/05/2024 1:30 PM EDT Initial [facility] OB [address] [facility] [place] [address] 10/04/2024 10:40 AM EDT Office Visit [facility] [address] [place] [address] Allen Carr MD [address] [place] [address] documented as of this encounter Visit Diagnoses Not on filedocumented in this encounter
--- OUTSIDE RECORDS SUMMARY | 2024-08-19 13:34 | XMS_ITS | Data Portability ---
Author Organization [facility], MAIN OFFICE Address [address] [place] [address] Assessment Encounter Date Assessment Date Assessment LastModified by Organization Details LastModified Time 06/27/2016 06/27/2016 acute sinusitis which pt is prescribed amoxicillin, xyzal acute conjuntivitis which pt is prescribed gentamicin cough which pt will take otc cough meds. rest/hydrate proper hygiene f/u with walkin in 7 to 10 days if sx does not improve. [email or web address] Not available 06/27/2016 11:00:41 Plan of Treatment Reminders Order Date Submit Date Provider Last Modified By Organization Details Last Modified Time Details Appointments None recorded. Lab None recorded. Referral None recorded. Procedures None recorded. Surgeries None recorded. Imaging None recorded. Medication Orders gentamicin 0.3 % eye drops 2016 017 INTERFACE [id number] [address], [address], 7 10:38:35 amoxicilli n 500 mg capsule 2016 017 INTERFACE [id number] [address], [address], 7 10:38:36 levocetiri zine 5 mg tablet 2016 017 INTERFACE [id number], [address], [address], 7 10:38:34 Patient Targets Encounter Date Encounter Id Patient Goals Patient Target Last Modified By Organization Details Last Modified Time 06/27/2016 [id number] rest/hydra te otc tylenol for aches. proper hygiene f/u with walkin in 7 to 10 days if sx does not improve. [email or web address] Not available 06/27/2016 11:01:00 Patient Instructions Encounter Date Encounter Id Patient Instructions Last Modified By Organization Details Last Modified Time 06/27/2016 [id number] pinkeye: care instructions Not available 06/29/2016 09:38:09 cough: care instructions Not available 06/29/2016 09:38:09 Acute Sinusitis: Care Instructions Not available 06/29/2016 09:38:09 f/u with pcp [email or web address] Not availa ble 06/27/2016 11:01:04 Reason for Referral None Reported. Problems Name Problem SNOMED Code Status Onset Date Resolution Date Notes Provider Name and Address Organization Details Recorded Time Thyroiditis 07069134 Active 017 lucía Oscar sonu [facility] 7 10:23:46 Problem Notes None recorded. Medical Equipment None Reported. Allergies Allergen ID Allergen Name Allergen Category Reaction Reaction Severity Criticality Documentation Date Start Date Code Code System Note Provider Name and Address Organization Details Recorded Time 4160 Substance with sulfonami de structure and antibacte rial mechanism of action (substanc e) medicatio n Not available Not available Not available 06/27/2016 18634 8003 SNOMED lucía ascencio [facility] [employer] [facility] 7 10:23:11 4161 Pediazole medicatio n Not available Not available Not available 06/27/2016 22812 RxNorm lucía Oscar [facility] 7 10:23:27 Medications Name Sig Start Date Stop Date Status Note LastModified by Organization Details LastModified Time amoxicillin 500 mg capsule Take 2 capsules every 12 hours by oral route for 10 days. 2016 active Not Available Not Available Not Avai lable Synthroid 200 mcg tablet active Not Available Not Available Not Available gentamicin 0.3 % eye drops INSTILL 1 DROP INTO AFFECTED EYE(S) BY OPHTHALMIC ROUTE EVERY 4 HOURS 2016 active Not Available Not Available Not Avai lable erythromycin 5 mg/gram (0.5 %) eye ointment active Not Available Not Available Not Available fluticasone propionate 50 mcg/actuatio n nasal spray,suspen aj active Not Available Not Available Not Available levocetirizi ne 5 mg tablet Take 1 tablet every day by oral route for 30 days. 2016 active Not Available Not Available Not Avai lable Vitals Date Recorded Body height Heart rate Body temperature Oxygen saturation Oxygen saturation in Arterial blood by Pulse oximetry Systolic blood pressure Diastolic blood pressure Provider Name and Address Organization Details Last Updated DateTime 162.56 cm 68 /min 97 [degF] 100 % 100 % 110 mm[Hg] 78 mm[Hg] lucía Oscar [facility] 10:22:38 Social History None recorded. Functional Status None recorded. Mental Status None recorded. Family History Relationship Description Onset Age of this Age Resolved Age Notes LastModified by Organization Details LastModified Time Father No current problems or disability [email or web address] Not available 02/2016 10:23:49 Mother No current problems or disability [email or web address] Not available 02/2016 10:23:49 Medical History Condition Response Coronary Artery Disease N Gout N Other N Kidney Stones N Blood Diseases N Hyperthyroidism N Breast Cancer N Blood Transfusion N Hypothyroidism N Depression N COPD N Lung Disease N Developmental or Behavioral Disorders N Defects or Inherited Disease N Breast Problem N Difficulty Swallowing N Anesthesia Complications N Anxiety Disorder N Meniere's disease N Muscle, Joint, or Bone Problems N Obesity N Vision or Eye Problems N Arthritis N Infertility N Polyps N Mental Disorder N Cancer N Varicosities N Stroke N Endometriosis N Bladder or Kidney Problems N High Cholesterol N Liver Disease N Headaches N Fibromyalgia N Kidney Disease N Allergies/Hayfever N Heart Problems N Ear or Hearing Problems N Hospitalizations N Thyroid Problems Y GI Problems N ADD/ADHD N Eating Disorder N Skin Problems N Anemia N MRSA exposure N Constipation N Mental Illness N Diabetes N Ovarian Cancer N Bedwetting N Seizures/Epilepsy N Tuberculosis N AIDS/HIV N Congestive Heart Failure (CHF) N Eczema N Abuse/Domestic Violence N Diverticulitis N Asthma N Reflux/GERD N Hepatitis N Heart Disease N Pulmonary Embolism N Chronic Ear Infections N Pre-Eclampsia N Hypertension N Chicken Pox N Autism Spectrum Disorder (ASD) N Osteoporosis N Thrombophilias N Gynecological HistoryNo gynecological history recorded. Obstetrics History GPAL:G 0 P 0 0 0 0 Past Encounters Encounter ID Performer Location Encounter Start Date Encounter Closed Date Diagnosis/Indication Diagnosis SNOMED-CT Code Diagnosis ICD10 Code Diagnosis Note [id number] Rangel Lopez PA-C MAIN OFFICE [address] [place] [phone] 06/27/2016 09:49:12 06/27/2016 14:42:44 Acute sinusitis 62998309 J01.90 Acute conjunctivitis 537 83056 H10.33 Cough 07020725 R05 Health Concerns Section Related Observation LastModified by Organization Detai ls LastModified Time None Recorded Concern Status LastModified by Organization Details LastModified Time None Recorded Advance Directives Directive None Recorded Payers Insurance Date Sequence Insurance Name Policy Number Policy Malagon Covered Member ID Malagon Member ID Guarantor Name 07/25/2023 1 [facility] Raya Mathur [id number] Munir Mathur Notes Date Note Type Note Provider Name and Address Organization Details Recorded Time 7 text/html sx x 1 daypt c/o sher eye irritationitchingmucus d/cno dec. in visionsinus congestioncoughingLT ear achesore throatheadachesPNDno N/V/Dno sobnot utd on flu shotnot hx of pnano otc meds. tried.Hx of environmental allergies.non smokerno Hx of lung dz. Rangel mercedes PA-C [address] [place], [address], [facility] 06/27/2016 11:02:55 OBGyn Episode No OBEpisode recorded.
--- OUTSIDE RECORDS SUMMARY | 2024-08-19 13:34 | XMS_ITS | Clinical Summary ---
Author Organization [facility] Address [id number] [place] [address] Care Team Providers Care Videotape Recording Engineer Name Role Phone No Pcp, No Pcp Primary Care Provider Unavailabl e Allergies Active Allergy Reactions Criticality Noted Date Comments Erythromycin-Sulfisoxazole Rash Low Sulfa (Sulfonamide Antibiotics) Rash Low 07/29 Medications 25/iron fum/folic/dha (-1 ORAL) Take by mouth. Active levothyroxine (SYNTHROID, LEVOTHROID) 200 MCG tablet Take 1 tablet (200 mcg total) by mouth in the morning. Patient taking 275 mcg. Active aspirin 81 mg Take 1 tablet (81 mg total) by mouth in the morning. Active Family History Medical History Relation Name Comments Hypothyroidism Father Diabetes Maternal Grandfather Liver disease Maternal Grandfather Diabetes Paternal Grandfather Lymphoma Paternal Grandfather Relation Name Status Comments Father Alive Maternal Grandfather Mother Alive Paternal Grandfather Social History Tobacco Use Types Packs/Day Years Used Date Smoking Tobacco: Never Smokeless Tobacco: Never Tobacco Cessation:Counseling Given: Not Answered Alcohol Use Standard Drinks/Week Comments Not Currently [...] to get more. Never True 08/24/2022 Comments No Sex and Gender Information Value Date Recorded Sex Assigned at Not on file Legal Sex Female 11:49 AM EDT Gender Identity Not on file Sexual Orientation Not on file Last Filed Vital Signs Vital Sign Reading Time Taken Comments Blood Pressure 110/70 08/24/2022 9:18 AM EDT Pulse 102 08/24/2022 9:18 AM EDT Temperature - - Respiratory Rate - - Oxygen Saturation - - Inhaled Oxygen Concentration - - Weight 102.5 kg (225 lb 15.5 oz) 08/24/2022 9:18 AM EDT Height 160 cm (5' 3 ) 08/24/2022 9:18 AM EDT Body Mass Index 40.03 08/24/2022 9:18 AM EDT Plan of Treatment Health Maintenance Due Date Last Done Comments Depression Screening 2005 DTaP,Tdap and Td Vaccines (1 - Tdap) 02/28/2012 Pap Smear 2014 Adult BMI Screening 08/25/2023 08/24/2022 Tobacco Screening 08/25/2023 08/24/2022 Influenza Vaccine 10/28/2024 Medical Devices Not on file Insurance MEDICAID Care Teams Videotape Recording Engineer Relationship Specialty Start Date End Date No Pcp, [place] [address] PCP - General Family Medicine 04/28/22
--- OUTSIDE RECORDS SUMMARY | 2024-08-19 13:34 | XMS_ITS | Patient Health Record ---
Author Organization [facility] vices Address [address] [place], [place] [address] Care Team Providers Care Paper Pattern Folder Name Role Phone Lance Santos Unavailable [phone] Allergies Allergen (clinical drug ingredient) Drug/Non Drug Allergy documented on EMR Reaction Allergy Type Onset Date Status Pediazole Unknown Drug Allergy 07/19/2011 Active Substance with sulfonamide structure and antibacterial mechanism of action (substance) Sulfa Antibiotics Unknown Drug Allergy 07/19/2011 Active Reason For Referral No Information Immunizations Vaccine Route Administration Date Status Comme nts *Tdap (Adacel)-VFC IM Intramuscular 08/04/2005 Administered Status:Complete ,Reason:Given or N/A leatha (08/04/2005) 20 minute check done no reaction 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: [employer] Parent/Guardian: present Social History Sex Assigned At : Social History Observation Description Sex Assigned At Female Problems Problem Type SNOMED Code ICD Code Onset Dates Problem Status W/U Status Risk Notes Problem 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, 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 Problem Acute streptococcal pharyngitis (9283857623) Acute streptococcal pharyngitis (J02.0) Active confirmed Comment:rap id strep positive 10 days abx F/U 2 weeks EMPHASIZED THE NEED TO COMPLETE ALL 10 DAYS,Descri ption:Strep tococcal sore throat Problem Asthma (176260409) Asthma (J45.909) 000 Active confirmed Problem Health supervision of healthy or child receiving care (V20.1) (V20.1) Active confirmed Problem Allergic rhinitis (60885852) Allergic rhinitis (J30.9) 000 Active confirmed Problem History and physical examination, administrative (25200758) General medical examination for administrative purposes (V70.3) (V70.3) 006 Active confirmed Problem Dermatitis, atopic (691.) (691) 006 Active confirmed Problem Acute pharyngitis (384823185) Acute pharyngitis (J02.9) 010 Active confirmed Problem Acute bronchitis (disorder) (63133013) Bronchitis, acute (466.0) (466.0) Active confirmed Problem Well child visit (108741938) Routine or child health check (V20.2) (V20.2) 008 Active confirmed Problem Acute sinusitis (29887453) Acute infection of nasal sinus (J01.90) Problem resolved confirmed Comment:adv ised to take her zyrtec 10mg po daily- states that she has zyrtec at home,Descri ption:Acute sinusitis Plan Of Treatment No Information Insurance Providers Payer Name Payer Address Payer Phone Subscriber Number Group Number Insured Name Patient Relationship to Insured Coverage Start Date Coverage End Date [facility] [address] [address] [place] [address] [id number] Raya Mathur Self - patient is the insured 3 Medicaid CF after [employer] [address] [place] [address] [id number] Raya Mathur Self - patient is the insured 3 Medical (General) History Medical History History ICD Code 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
--- OUTSIDE RECORDS SUMMARY | 2024-08-19 13:35 | XMS_ITS | Encounter Summary ---
Author Organization [facility] Address [address] [facility] [place] [address] Care Team Providers Care Technical Account Executive Name Role Phone Unavailable Primary Care Provider Unavailabl e Encounter Details Date Type Department Care Team (Late Contact Info) Description 10/25/2022 Abstract [facility] [address] [place] [address] Carolina Stone LPN [address] [facility] Social History Tobacco Use Types Packs/Day Years [...] suspected to have Coronavirus/COVID-19? No / Unsure 10/27/2022 8:01 AM EDT documented as of this encounter Plan of Treatment Upcoming Encounters Date Type Department Care Team (Late Contact Info) Description 09/05/2024 1:00 PM EDT Ancillary Procedure [facility] [address] [place] [address] 09/05/2024 1:30 PM EDT Initial [facility] [address] [facility] [place] [address] 10/04/2024 10:40 AM EDT Office Visit [facility] [address] [place] [address] Allen Carr MD [address] [place] [address] documented as of this encounter Visit Diagnoses Not on filedocumented in this encounter
--- OUTSIDE RECORDS SUMMARY | 2024-08-19 13:35 | XMS_ITS | Encounter Summary ---
Author Organization [facility] Address [address] [facility] [place] [address] Care Team Providers Care Planetarium Sky Show Technician Name Role Phone Unavailable Primary Care Provider Unavailabl e Encounter Details Date Type Department Care Team (Late Contact Info) Description 10/27/2022 Abstract [facility] OB [address] [place] [address] Carolina Stone LPN [address] [facility] Social History Tobacco Use Types Packs/Day [...] 09/05/2024 1:00 PM EDT Ancillary Procedure [facility] OB [address] [place] [address] 09/05/2024 1:30 PM EDT Initial [facility] OB [address] [place] [address] 10/04/2024 10:40 AM EDT Office Visit [facility] [address] [place] [address] Allen Carr MD [address] [place] [address] documented as of this encounter Visit Diagnoses Not on filedocumented in this encounter
--- OUTSIDE RECORDS SUMMARY | 2024-08-19 13:35 | XMS_ITS | Encounter Summary ---
Author Organization [facility] Address [address] [facility] [place] [address] Care Team Providers Care Right Of Way Cutter Name Role Phone Unavailable Primary Care Provider Unavailabl e Encounter Details Date Type Department Care Team (Late Contact Info) Description 10/28/2022 Abstract [facility] [address] [place] [address] Calista Khan LPN Social History Tobacco [...] 09/05/2024 1:00 PM EDT Ancillary Procedure [facility] OB [facility] [place] [address] 09/05/2024 1:30 PM EDT Initial [facility] [address] [place] [address] 10/04/2024 10:40 AM EDT Office Visit [facility] [address] [place] [address] Allen Carr MD [address] [place] [address] documented as of this encounter Visit Diagnoses Not on filedocumented in this encounter
--- OUTSIDE RECORDS SUMMARY | 2024-08-19 13:35 | XMS_ITS | Encounter Summary ---
Author Organization [facility] Address [address] [facility] [place] [address] Care Team Providers Care Satellite Installer Name Role Phone Unavailable Primary Care Provider Unavailabl e Encounter Details Date Type Department Care Team (Late Contact Info) Description 10/20/2022 Abstract [facility] [address] [place] [address] Calista Khan LPN Social History Tobacco [...] suspected to have Coronavirus/COVID-19? No / Unsure 10/13/2022 11:05 AM EDT documented as of this encounter Plan of Treatment Upcoming Encounters Date Type Department Care Team (Late Contact Info) Description 09/05/2024 1:00 PM EDT Ancillary Procedure [facility] OB [facility] [place] [address] 09/05/2024 1:30 PM EDT Initial [facility] [address] [place] [address] 10/04/2024 10:40 AM EDT Office Visit [facility] [address] [place] [address] Allen Carr MD [address] [place] [address] documented as of this encounter Visit Diagnoses Not on filedocumented in this encounter
== END 2024-08-27 09:50 | disposition home or self-care (01) ==
LOC: LAB 13:26
PROVIDERS: Visit Provider Obstetrics & Gynecology
DX: Z51.81 Encounter for therapeutic drug level monitoring (principal); Z32.01 Encounter for pregnancy test, result positive
CPT/HCPCS: 36415; 84702

== ENCOUNTER 2024-09-06 12:39 | Outpatient (OUT) | payer OTHER, SELFPAY ==
--- OUTSIDE RECORDS SUMMARY | 2024-09-01 23:57 | XMS_ITS | Encounter Summary ---
Author Organization [facility] tem Address [id number] [address] [place] [address] Care Team Providers Care Computer Typesetter Keyliner Name Role Phone No Pcp, No Pcp Primary Care Provider Unavailabl e Reason for Visit * Reason Comments Constipation Encounter Details Date Type Department Care Team ([facility] st Contact Info) Description 09/01/2024 11:57 PM EDT - 09/02/2024 2:02 AM EDT Emergency [facility] - Emergency [address] [place] [address] Valerie Shen MD [address] [place], [place] [id number] Constipation, unspecified constipation type (Primary Dx); 9 weeks gestation of Discharge Disposition: Home Social History Tobacco Use Types Packs/Day Years [...] got money to buy more. Never True 09/02/2024 Within the past 12 months th e food we bought just didn't last and we didn't have money to get more. Never True 09/02/2024 Estimated Date of Delivery Comme nts Yes 04/02/2025 Sex and Gender Information Value Date Recorded Sex Assigned at Not on file Legal Sex Female 11:49 AM EDT Gender Identity Not on file Sexual Orientation Not on file documented as of this encounter Last Filed Vital Signs Vital Sign Reading Time Taken Comments Blood Pressure 112/65 09/02/2024 12:45 AM EDT Pulse 96 09/02/2024 12:02 AM EDT Temperature 36.6 C (97.9 F) 09/02/2024 12:02 AM EDT Respiratory Rate 16 09/02/2024 12:02 AM EDT Oxygen Saturation 100% 09/02/2024 12:45 AM EDT Inhaled Oxygen Concentration - - Weight 99.8 kg (220 lb) 09/02/2024 12:02 AM EDT Height 162.6 cm (5' 4 ) 09/02/2024 12:02 AM EDT Body Mass Index 37.76 09/02/2024 12:02 AM EDT documented in this encounter Discharge Instructions * Discharge Instructions* Valerie Shen MD - 09/02/2024 1:44 AM EDT We obtained testing related to your today. You requested treatment for constipation only.You declined ultrasound or lab work. [facility] check [facility]. Please follow up with your regular doctor or OB/gynecology doctor to have your hormone levels monitored every 48 hours. This is to make sure your is progressing normally without complications. Please call within 24 hours to schedule an appointment. Please return to the ER immediately for any worsening symptoms. This may include pelvic pain, vomiting, vaginal bleeding or fluid leakage, passing out, dizziness, lightheadedness, headache, chest pain, trouble breathing, or any other concerns. * Attachments The following attachments cannot be sent through Care Everywhere. * Constipation in adults ??? ED discharge instructions ([place]i) * ??? The Third Month ([place]i) documented in this encounter Medications at Time of Discharge aspirin 81 mg Take 1 tablet (81 mg total) by mouth in the morning. levothyroxine (SYNTHROID, LEVOTHROID) 200 MCG tablet Take 1 tablet (200 mcg total) by mouth in the morning. Patient taking 275 mcg. polyethylene glycol (GLYCOLAX) 17 gram packet Take 17 g by mouth in the morning for 90 days. 90 packet 09/02/2024 12/01/2024 25/iron fum/folic/dha (-1 ORAL) Take by mouth. documented as of this encounter ED Notes * Valerie Shen MD - 09/02/2024 12:40 AM EDT Images from the original note were not included. [facility] - EMERGENCY Pt Name: Raya Mathur Birthdate: 1995 Chief Complaint: Chief Complaint Patient presents with Constipation History of Present Illness: HPI 29 year old female with anemia, hypothyroidism, approximately 9 weeks 5 days by LMP presents to ED for constipation. States stores were closed and she needs a suppository or enema for constipation. States she has had this issue in the past and believes it is related to vitamins. Not on any stool softeners currently because she was unsure if safe in . Not experiencing any vaginal bleeding, fluid leakage, abdominal pain. Is established with OB and has an upcoming US on . States she wants no labs, ultrasound here and is only here for constipation treatment and has no other concerns. Is agreeable to at least providing urine sample after discussion. Past Medical History: Past Medical History: Diagnosis Date Anemia Headaches, cluster Hypothyroid Past Surgical History: Past Surgical History: Procedure Laterality Date ORIF Right HAND WISDOM TOOTH EXTRACTION Family History: Family History Problem Relation Age of Onset Diabetes Paternal Grandfather Lymphoma Paternal Grandfather Diabetes Maternal Grandfather Liver disease Maternal Grandfather Hypothyroidism Father Social History: Social History Socioeconomic History Marital status: Tobacco Use Smoking status: Never Smokeless tobacco: Never Substance and Sexual Activity Alcohol use: Not Currently Drug use: Never Social Drivers of Health Food Insecurity: No Food Insecurity (09/02/2024) Hunger Screening Food Insecurity - Worry: Never True Food Insecurity - Inability: Never True Review of Systems: Review of Systems Constitutional: Negative for chills and fever. Gastrointestinal: Positive for constipation. Negative for abdominal pain, blood in stool, nausea and vomiting. Genitourinary: Negative for dysuria, vaginal bleeding and vaginal pain. Physical Exam: ED Triage Vitals [09/02/24 0002] Temp Heart Rate Resp BP SpO2 36.6 ??C (97.9 ??F) 96 16 111/88 98 % Temp Source Heart Rate Source Patient Position BP Location FiO2 (%) Oral Pulse Ox High-fowlers Left arm -- Vitals: 09/02/24 0002 09/02/24 0015 09/02/24 0045 BP: 111/88 111/88 112/65 Temp: 36.6 ??C (97.9 ??F) TempSrc: Oral Pulse: 96 Resp: 16 SpO2: 98% 98% 100% Height: 162.6 cm (5' 4 ) Weight: 99.8 kg (220 lb) 100 Physical Exam Vitals and nursing note reviewed. Constitutional: General: She is not in acute distress. Appearance: She is obese. HENT: Head: Normocephalic and atraumatic. Right Ear: External ear normal. Left Ear: External ear normal. Nose: Nose normal. Eyes: General: No scleral icterus. Right eye: No discharge. Left eye: No discharge. Neck: Thyroid: No thyroid mass. Trachea: No tracheal deviation. Cardiovascular: Rate and Rhythm: Normal rate and regular rhythm. Pulmonary: Effort: Pulmonary effort is normal. Breath sounds: Normal breath sounds. Abdominal: Palpations: Abdomen is soft. Tenderness: There is no abdominal tenderness. There is no guarding or rebound. Musculoskeletal: General: No deformity. Skin: General: Skin is warm and dry. Coloration: Skin is not jaundiced. Neurological: General: No focal deficit present. Mental Status: She is alert. Gait: Gait normal. Psychiatric: Attention and Perception: Attention normal. Behavior: Behavior normal. Procedure: Procedures Re-evaluation: Re-Evaluation Medical Decision Making Amount and/or Complexity of Data Reviewed Labs: ordered. Risk OTC drugs. History obtained from patient and fiancee Record review revealed recent endocrinology visit for hypothyroidism during 08/09/24. Broad differential considered and workup ordered accordingly as noted below. Patient is afebrile. Abdominal exam is benign without rebound or guarding. Bowel obstruction unlikely as the patient had no distension on exam, continues to pass gas. Patient has no complaints of abdominal pain, vaginal bleeding or fluid leakage. Patient declines lab work, ultrasound. She states she just wants a suppository or enema and all thestores were closed. States she would not have come to the ER otherwise. 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 Patient states she has had constipation in the past with vitamins. After enema, patient endorses improvement. Resting comfortably, on her cell phone on re-evaluation. Patient is well appearing. Patient discharged according to her wishes without further workup and with return precautions for any worsening symptoms and close follow up with PCP/OB-resident care associate in 1-2 days. Her physicians are not listed in the chart although she states she is established, so I gave her some information for follow up just in case. Miralax script sent as well. Patient states she has tolerated this well in the past. All of the above was discussed with patient per my usual process. ED Course: Clinical Impressions as of 09/02/244 Constipation, unspecified constipation type 9 weeks gestation of . ED Disposition ED Disposition Discharge Date/Time MonSep 02, 2024 1:45 AM Comment At the time of discharge, the plan has been discussed with the patient regarding the diagnosis and prognosis. All questions have been answered. Verbal discharge instructions were discussed with the patient. The patient has been advised to follow up w ith their Primary Care Provider and Specialist within 1-2 days. The patient was also instructed to return to the ED if their symptoms change, worsen, new symptoms arise or if they have any additional concerns. Medications Prescribed this Visit Sig polyethylene glycol (GLYCOLAX) 17 gram packet Take 17 g by mouth in the morning for 90 days. . Please note that portions of this note were completed with a voice recognition program. Efforts were made to edit the dictations but occasionally words are mis-transcribed. Valerie Shen MD 09/02/24 0230 documented in this encounter Plan of Treatment Scheduled Orders Name Type Priority Associated Diagnoses Orde r Schedule Urine Culture Urine, Clean Catch Midstream Microbiology STAT STAT for 1 Occur rences starting 09/02/2024 until 09/02/2024 documented as of this encounter Procedures Procedure Name Priority Date/Time Associated Diagnosis Comments POCT , URINE (NUCG) Routine 09/02/2024 1:46 AM EDT POCT NURSING URINE MACROSCOPIC UA Routine 09/02/2024 1:45 AM EDT documented in this encounter Results * (ABNORMAL) POCT , urine (09/02/2024 1:46 AM EDT) POC Urine Positive( A) Negative, Indeterminate 09/02/2024 1:40 AM EDT [facility] Urine 09/02/2024 1:46 AM EDT 09/02/2024 1:40 AM EDT us Valerie Shen MD POINT OF CARE TEST ORDERABLES Fi nal Result [facility] [address] [place] [address], [place] * (ABNORMAL) POCT Nursing Urine Macroscopic UA (09/02/2024 1:45 AM EDT) POC Urine Specific [place] >=1.030(A) 1.010, 1.015, 1.020, 1.025 09/02/2024 1:38 AM EDT [facility] POC Urine Leukocyte Esterase Negative Negative 09/02/2024 1:38 AM EDT [facility] POC Urine Nitrite Negative Negative 09/02/2024 1:38 AM EDT [facility] POC Urine pH 6.0 5.0, 6.0, 6.5, 7.0, 7.5, 8.0, 8.5, 5.5 09/02/2024 1:38 AM EDT [facility] POC Urine Protein Negative Negative 09/02/2024 1:38 AM EDT [facility] POC Urine Glucose Negative Negative 09/02/2024 1:38 AM EDT [facility] POC Urine Ketones Negative Negative 09/02/2024 1:38 AM EDT [facility] POC Urine Urobilinogen 0.2 E.U./dL 09/02/2024 1:38 AM EDT [facility] POC Urine Bilirubin Negative Negative 09/02/2024 1:38 AM EDT [facility] POC Urine Blood/HGB Trace(A) Negative 09/02/2024 1:38 AM EDT [facility] Urine 09/02/2024 1:45 AM EDT 09/02/2024 1:38 AM EDT us Valerie Shen MD POINT OF CARE TEST ORDERABLES Fi nal Result [facility] [address] [facility] [place] [address], documented in this encounter Visit Diagnoses Diagnosis Constipation, unspecified constipation type- Primary 9 weeks gestation of documented in this encounter Administered Medications Inactive Administered Medications - up to 3 most recent administrations Medication Order MAR Action Action Date Dose Rate Site mineral oil (FLEET) enema 133 mL 133 mL, rectal, Once, On Mon09/02/24 at 0020, For 1 dose, SELF ADMINISTRATION Given 09/02/2024 12:46 AM EDT 133 mL documented in this encounter Active and Recently Administered Medications Times are shown in EDT. Scheduled Medication Order 08/31/2024 09/01/2024 09/02/2024 mineral oil (FLEET) enema 133 mL (COMPLETED) 133 mL, rectal, Once, On Mon09/02/24 at 0020, For 1 dose, SELF ADMINISTRATION 0046 (Given - Provid er: Amanda Gonsales RN) documented in this encounter Care Teams Computer Typesetter Keyliner Relationship Specialty Start Date End Date No Pcp, [place] [address] PCP - General Family Medicine 04/28/22 documented as of this encounter
--- OUTSIDE RECORDS SUMMARY | 2024-09-05 13:00 | XMS_ITS | Encounter Summary ---
Author Organization [facility] Address [address] [place] [address] Care Team Providers Care Wind Farm Electrical Systems Designer Name Role Phone Unavailable Primary Care Provider Unavailabl e Encounter Details Date Type Department Care Team (Latest Contact Info) Description 09/05/2024 1:00 PM EDT Ancillary Procedure [facility] [address] [facility] [place] [address] Missed menses; Positive urine test ([facility]) Social History Tobacco Use Types Packs/Day Years [...] Visit [facility] [address] [place] [address] Allen Carr MD [address] [place] [address] 10/08/2024 1:50 PM EDT Routine [facility] [address] [place] [phone] Ha Baker, DO [address] [facility] [place] [address] documented as of this encounter Procedures Procedure Name Priority Date/Time Associated Diagnosis Comments US OB TRANSVAGINAL Routine 09/05/2024 1: 28 PM EDT Missed menses Positive urine test ([facility]) documented in this encounter Results * US [...] Diagnoses Diagnosis Missed menses Positive urine test ([facility]) documented in this encounter
--- OUTSIDE RECORDS SUMMARY | 2024-09-05 13:30 | XMS_ITS | Encounter Summary ---
Author Organization [facility] Address [address] [facility] [place] [address] Care Team Providers Care Refrigerator Cabinetmaker Name Role Phone Unavailable Primary Care Provider Unavailabl e Reason for Visit * Reason Comments Amenorrhea Encounter Details Date Type Department Care Team ([facility] Contact Info) Description 09/05/2024 1:30 PM EDT Initial [facility] B[facility] OB [address] [place] [address] [place] [address] GA: 8w6d Social History Tobacco [...] 11/16/2017 Unable to comply with treatment 07/26/2022 ([facility]) 11/28/2017 Exposure to STD 05/31/2023 Encounter for weight management 05/31/2023 Dermatitis, atopic 08/04/2005 Allergic rhinitis 02/18/2000 Asthma ([facility]) 02/18/2000 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 Acute bronchitis 05/13/2024 Acute pharyngitis 09/10/2009 Acute streptococcal pharyngitis 05/13/2024 Encounter for childhood immunizations appropriate for age 0708/30/2007 Obesity affecting , antepartum ([facility]) 11/13/2018 Hyperthyroidism 11/28/2017 Resolved Ambulatory Problems Diagnosis Date Noted Anemia of ([facility]) 04/24/2018 -induced hypertension ([facility]) 04/29/2018 Past Medical History: Diagnosis Date Body [...] dipstick manually resulted , unspecified gestational age ([facility]) - Type and screen; Future - ABO/Rh; Future - CBC and differential - Hemoglobin A1c - RPR - Rubella antibody, IgG - Hepatitis B surface antigen - Hepatitis C antibody - HIV-1 and HIV-2 antibodies - Rapid drug screen, urine; Future Encounter for supervision of normal first in first trimester ([facility]) - Rapid drug screen, urine; Future Nurse [...] or undercooked meat, and [facility] away from [facility]. Patient has also been advised to not [...] Visit [facility] [address] [place] [address] Allen Carr MD [address] [place] [address] 10/08/2024 1:50 PM EDT Routine [facility] OB [address] [facility] [place] [address] Ha Baker, DO [address] [facility] [place] [address] Scheduled Orders Name Type Priority Associated Diagnoses [...] Routine Missed menses , unspecified gestational age ([facility]) Ordered: 09/05/2024 HIV-1 and HIV-2 antibodies Lab Routine Missed menses , unspecified gestational age ([facility]) Ordered: 09/05/2024 Urine culture Microbiology Routine Missed menses Ordered: 09/05/2024 Rapid drug screen, urine Lab Routine , unspecified gestational age ([facility]) Encounter for supervision of normal first in first trimester ([facility]) Expected: 09/05/2024 (Approximate), Expires: 09/05/2025 documented as [...] Diagnosis Missed menses , unspecified gestational age ([facility]) Encounter for supervision of normal first in first trimester ([facility]) documented in this encounter
--- OUTSIDE RECORDS SUMMARY | 2024-09-06 12:42 | XMS_ITS | Encounter Summary ---
Author Organization [facility] Address [address] [place] [address] Care Team Providers Care Shipping And Receiving Specialist Name Role Phone Unavailable Primary Care Provider Unavailabl e Encounter Details Date Type Department Care Team (Late Contact Info) Description 09/06/2022 Abstract [facility] [address] [place] [address] Ha Baker, DO [address] [place], [facility] Social History Tobacco Use Types Packs/Day Years [...] Department Care Team (Late Contact Info) Description 10/04/2024 10:40 AM EDT Office Visit [facility] [address] [place] [phone] Allen Carr MD [address] [place] [address] 10/08/2024 1:50 PM EDT Routine [facility] [address] [facility] [place] [address] Ha Baker, [address] [place] [address] documented as of this encounter Visit Diagnoses Not on filedocumented in this encounter
--- OUTSIDE RECORDS SUMMARY | 2024-09-06 12:42 | XMS_ITS | Encounter Summary ---
Author Organization [facility] Address [address] [place] [address] Care Team Providers Care Title I Teacher Name Role Phone Unavailable Primary Care Provider Unavailabl e Encounter Details Date Type Department Care Team (Late st Contact Info) Description 08/17/2022 Abstract [facility] [address] [place] [phone] Ha Baker, DO [address] [place], [place] [address] Social History Tobacco Use Types Packs/Day Years [...] Office Visit [facility] [address] [place] [address] Allen Carr MD [address] [place] [address] 10/08/2024 1:50 PM EDT Routine [facility] OB [address] [facility] [place] [address] Ha Baker DO [address] [place] [address] [place] [address] documented as of this encounter Visit Diagnoses Not on filedocumented in this encounter
--- OUTSIDE RECORDS SUMMARY | 2024-09-06 12:42 | XMS_ITS | Data Portability ---
Author Organization [facility], MAIN OFFICE Address [address] [place] [phone] Assessment Encounter Date Assessment Date Assessment LastModified [...] drops 2016 017 INTERFACE [id number], [facility] [address], [address], 7 10:38:35 amoxicilli n 500 mg capsule 2016 017 INTERFACE [id number] [address], [address], 7 10:38:36 levocetiri zine 5 mg tablet 2016 017 INTERFACE [facility], [address], [address], 7 10:38:34 Patient Targets Encounter Date Encounter [...] and Address Organization Details Recorded Time Thyroiditis [id number] Active 017 lucía Oscar sonu [facility] 7 10:23:46 Problem Notes None recorded. Medical Equipment None Reported. Allergies Allergen ID Allergen Name Allergen Category Reaction Reaction Severity Criticality Documentation Date Start Date Code Code System Note Provider Name and Address Organization Details Recorded Time 4160 Substance with sulfonami de structure and antibacte rial mechanism of action (substanc e) medicatio n Not available Not available Not available 06/27/2016 99378 8003 SNOMED lucía ascencio [facility] 7 10:23:11 4161 Pediazole medicatio n Not available Not available Not available 06/27/2016 11954 RxNorm lucía Oscar [facility] 7 10:23:27 Medications Name Sig [...] in Arterial blood by Pulse oximetry Systolic And Diastolic Provider Name and Address Organization Details Last Updated DateTime 7 162.56 cm 68 /min 97 [degF] 100 % 100 % 110/78 mm[Hg] lucía Oscar [facility] 10:22:38 Social History None recorded. Functional Status None recorded. Mental Status None recorded. Family History Relationship Description Onset Age of this Age Resolved Age Notes LastModified by Organization Details LastModified Time Father No current problems or disability [email or web address] Not available 02/2016 10:23:49 Mother No current problems or disability [email or web address] Not available 02/2016 10:23:49 Medical History Condition Response Coronary Artery Disease N Other N Gout N Kidney Stones N Blood Diseases N Hyperthyroidism N Breast Cancer N Blood Transfusion N Hypothyroidism N Depression N COPD N Lung Disease N Defects or Inherited Disease N Developmental or Behavioral Disorders N Breast Problem N Difficulty Swallowing N Anesthesia Complications N Meniere's disease N Anxiety Disorder N Muscle, Joint, or Bone Problems N Obesity N Vision or Eye Problems N Arthritis N Polyps N Infertility N Mental Disorder N Cancer N Varicosities N Stroke N Endometriosis N Bladder or Kidney Problems N High Cholesterol N Liver Disease N Headaches N Fibromyalgia N Kidney Disease N Allergies/Hayfever N Heart Problems N Ear or Hearing Problems N Hospitalizations N Thyroid Problems Y GI Problems N ADD/ADHD N Skin Problems N Eating Disorder N Anemia N MRSA exposure N Constipation N Mental Illness N Ovarian Cancer N Diabetes N Bedwetting N Seizures/Epilepsy N Tuberculosis N AIDS/HIV N Congestive Heart Failure (CHF) N Eczema N Diverticulitis N Abuse/Domestic Violence N Asthma N Reflux/GERD N Hepatitis N [...] Note 7737 Rangel Lopez PA-C MAIN OFFICE [address] [place] [phone] 06/27/2016 09:49:12 06/27/2016 14:42:44 Acute sinusitis 07880195 J01.90 Acute conjunctivitis 537 40265 H10.33 Cough [id number] R05 Health Concerns Section Related Observation LastModified by Organization Detai ls LastModified Time None Recorded Concern Status LastModified by Organization Details LastModified Time None Recorded Advance Directives Directive None Recorded Payers Insurance Date Sequence Insurance Name Policy Number Policy Malagon Covered Member ID Malagon Member ID Guarantor Name 07/25/2023 1 [facility] Raya Mathur [id number] Munir Mathur Notes Date Note Type Note Provider Name and Address Organization Details Recorded Time 7 text/html sx x 1 daypt c/o sher eye irritationitchingmucus d/cno dec. in visionsinus congestioncoughingLT ear achesore throatheadachesPNDno N/V/Dno sobnot utd on flu shotnot hx of pnano otc meds. tried.Hx of environmental allergies.non smokerno Hx of lung dz. Rangel merceeds PA-C [address] [place] [address], [id number], [facility] 06/27/2016 11:02:55 OBGyn Episode No OBEpisode recorded.
--- OUTSIDE RECORDS SUMMARY | 2024-09-06 12:42 | XMS_ITS | Encounter Summary ---
Author Organization [facility] Address [address] [place] [address] Care Team Providers Care Concrete Building Assembler Name Role Phone Unavailable Primary Care Provider Unavailabl e Encounter Details Date Type Department Care Team (Late Contact Info) Description 09/06/2022 Abstract [facility] [address] [place] [address] Ha Baker, DO [address] [place] [place], [facility] Social History Tobacco Use Types Packs/Day [...] Office Visit [facility] [address] [place] [phone] Allen Carr MD [address] [place] [address] 10/08/2024 1:50 PM EDT Routine [facility] [address] [facility] [place] [address] Ha Baker, [address] [place] [address] documented as of this encounter Visit Diagnoses Not on filedocumented in this encounter
--- OUTSIDE RECORDS SUMMARY | 2024-09-06 12:42 | XMS_ITS | Encounter Summary ---
Author Organization [facility] Address [address] [place] [address] Care Team Providers Care Courtroom Deputy Or Calendar Clerk Name Role Phone Unavailable Primary Care Provider Unavailabl e Encounter Details Date Type Department Care Team (Late Contact Info) Description 09/06/2022 Abstract [facility] [address] [place] [address] Ha Baker, DO [address] [place], [facility]11 Social History Tobacco Use Types Packs/Day [...] Office Visit [facility] [address] [place] [phone] Allen Carr MD [address] [place] [address] 10/08/2024 1:50 PM EDT Routine [facility] [address] [facility] [place] [address] Ha Baker, [address] [place] [address] documented as of this encounter Visit Diagnoses Not on filedocumented in this encounter
--- OUTSIDE RECORDS SUMMARY | 2024-09-06 12:42 | XMS_ITS | Encounter Summary ---
Author Organization [facility] Address [address] [place] [address] Care Team Providers Care Grinding Machine Operator Name Role Phone Unavailable Primary Care Provider Unavailabl e Encounter Details Date Type Department Care Team (Late Contact Info) Description 09/22/2022 Abstract [facility] [address] [facility] [place] [address] Karla Matthews PA [address] [facility] [address] [place], [facility]11 Social History Tobacco Use Types Packs/Day [...] Office Visit [facility] [address] [place] [phone] Allen Carr MD [address] [place] [address] 10/08/2024 1:50 PM EDT Routine [facility] [address] [facility] [place] [address] Ha Baker, [address] [place] [address] documented as of this encounter Visit Diagnoses Not on filedocumented in this encounter
--- OUTSIDE RECORDS SUMMARY | 2024-09-06 12:42 | XMS_ITS | Clinical Summary ---
Author Organization [facility] Address [address] [place] [address] Care Team Providers Care Third Helper Name Role Phone Unavailable Primary Care Provider Unavailabl e Allergies Active Allergy Reactions Criticality Noted Date Comments Other Rash,Other Low 10/20/2022 PEDIAZOLE Sulfa Antibiotics Other,Rash Medium 07/19/2011 Other Reaction(s): Unknown Sulfamethoxazole Rash Low 08/18/2022 Medications levothyroxine (Synthroid) 300 MCG tabletIndications: Hypothyroidism, unspecified type Take 1 tablet (300 mcg) by mouth in the morning. Take before meals. 360 tablet 3 Active fluticasone (Flonase) 50 MCG/ACT nasal spray Administer 1 spray into each nostril Daily Shake gently. Before first use, prime pump. After use, clean tip and replace cap. Active Synthroid 300 MCG tabletIndications: Alfredo's disease,Thyroid disease during , first trimester (HCC) Take 1 tablet (300 mcg) by mouth Daily 90 tablet 1 5 025 Active ondansetron ODT (Zofran-ODT) 4 MG disintegrating tabletIndications: Nausea Take 1 tablet (4 mg) by mouth every 6 (six) hours if needed for nausea or vomiting 30 tablet 2 5 025 Active Vit-Fe Fumarate-FA ( Vitamins) 28-0.8 MG tabletIndications: Positive urine test ([facility]) Take 1 tablet by mouth Daily 30 tablet 3 5 026 Active Hospital, Clinic, or Other Facility Administered [...] with treatment 07/26/2022 Obesity affecting , antepartum ([facility] ) 11/13/2018 ([facility]) 11/28/2017 Hyperthyroidism 11/28/2017 Obesity (BMI 35.0-39.9 without comorbidity) 10/29 Thyroiditis 06/27/2016 Acute pharyngitis 09/10/2009 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 Encounter for childhood immunizations appropriat e for age 0708/30/2007 Dermatitis, atopic 08/04/2005 Allergic rhinitis 02/18/2000 Asthma 02/18/2000 Hypothyroid 1993 Estimated Date of Delivery Comme nts Yes 04/11/2025 Based on Ultraso und Resolved Problems Problem Noted Date Diagnosed Date Resolved Date -induced hypertension ([facility]) 04/29/2018 11/04/2022 Anemia of ([facility]) 04/24/2018 11/04/2022 Encounters Date Type Department Care Team Description 09/05/2024 1:30 PM EDT Initial [facility] [address] [place] [id number] GA: 8w6d 09/05/2024 1:00 PM EDT Ancillary Procedure [facility] [place] [id number] Missed menses; Positive urine test ([facility]) 08/26/2024 Telephone [facility] [place] [address] Ha Baker, DO 08/21/2024 Clinisync Result Encounter [facility] External Department Unsolicited Ha Baker, DO 08/19/2024 Clinisync Result Encounter [facility] External Department Unsolicited Ha Baker DO 08/15/2024 Telephone [facility] [address] [place] [address] [place] [address] Prudencio MarcieNARCISO martin 08/09/2024 11:10 AM EDT Office Visit [facility] [address] [place] [phone] Allen Carr MD Alfredo's disease (Primary Dx); Vitamin D deficiency; Encounter for dietary consultation; Class 3 severe obesity due to excess calories without serious comorbidity with body mass index (BMI) of 40.0 to 44.9 in adult ([facility]); Thyroid disease during , first trimester (HCC); Hypothyroidism, unspecified type 08/09/2024 Bamboo flowsheet [facility] [address] [place] [phone] Allen Carr MD from Last 3 Months [...] EDT Inhaled Oxygen Concentration - - Weight 104 kg (228 lb 6.4 oz) 09/05/2024 2:05 PM EDT Height 162.6 cm (5' 4 ) 08/09/2024 11:20 AM EDT Body Mass Index 39.2 08/09/2024 11:20 AM EDT Plan of Treatment Upcoming Encounters Date Type Department Care Team (Late st Contact Info) Description 10/04/2024 10:40 AM EDT Office Visit [facility] [address] [place] [phone] Allen Carr MD [address] [place] [address] 10/08/2024 1:50 PM EDT Routine [facility] [address] [place] [phone] Ha Baker, DO [address] [place] [address] Procedures Procedure Name Priority Date/Time Associated Diagnosis Comments POCT URINALYSIS DIPSTICK Routine 09/05/2024 2:01 PM EDT Missed menses POCT , URINE Routine 09/05/2024 2:01 PM EDT Missed menses US OB TRANSVAGINAL Routine 09/05/2024 1: 28 PM EDT Missed menses Positive urine test ([facility]) [facility] PREG QUANT HCG Routine 08/21/2024 8: 54 AM EDT [facility] PREG QUANT HCG Routine 08/19/2024 1: 37 PM EDT TSH Routine 08/09/2024 12:09 PM EDT Alfredo's disease Thyroid disease during , first trimester (HCC) T4, FREE Routine 08/09/2024 12:09 PM EDT Alfredo's disease Thyroid disease during , first trimester (HCC) T3, FREE Routine 08/09/2024 12:09 PM EDT Alfredo's disease Thyroid disease during , first trimester (HCC) from Last 3 Months Results * (ABNORMAL) POCT , urine manually resulted (09/05/2024 2:01 PM EDT) Preg Test, Ur Positive Negative Urine 09/05/2024 2:01 PM EDT Ha Samuel DO POINT OF CARE TEST ENTER/EDIT OR DERABLES Final Result * POCT urinalysis dipstick manually resulted (09/05/2024 [...] - Positive Urine 09/05/2024 2:01 PM EDT us Ha Samuel DO POINT OF CARE TEST ENTER/EDIT OR DERABLES Final Result * US OB transvaginal (09/05/2024 1:28 PM [...] SIGNED BY: Shlomo Luciano MD us Ha Samuel DO IM OB US PROCEDURES Final Resul t * [facility] PREG QUANT HCG (08/21/2024 8:54 AM EDT) Only the most recent of2 resultswithin the time period is included. HCG QUANTITATIVE 70,787 mIU/mL [facility] Comment: 5-50 0.2-1 WEEK 50-500 1-2 WEEKS 100-5,000 2-3 WEEKS 500-10,000 3-4 WEEKS 1,000-50,000 4-5 WEEKS 10,000-100,000 5-6 WEEKS 15,000-200,000 6-8 WEEKS 10,000-100,000 2-3 MONTHS 08/21/2024 8:54 AM EDT 08/21/2024 8:55 AM EDT Narrative [facility] - 08/21/2024 10:43 AM EDT Ha Nowako DO CLINISYNC Final Result [facility] * T3, free (08/09/2024 12:09 PM EDT) T3, FREE 2.4 2.0 - 4.4 pg/mL [facility] Blood Venous blood specimen / Unknown 08/09/2024 12:09 PM EDT 08/09/2024 Narrative [facility] - 08/10/2024 4:35 AM EDT Performed at: [address] [place] [id number] House Cleaner Supervisor: Atul Duvall PhD, Phone: [phone] Allen Carr MD LAB BLOOD ORDERABLES Final Re sult Performing Organization Address [facility] Co de Phone Number [facility] * TSH (08/09/2024 12:09 PM EDT) Pathologist [facility] TSH 3.130 0.450 - 4.500 uIU/mL [facility] Blood Venous blood specimen / Unknown 08/09/2024 12:09 PM EDT 08/09/2024 Narrative [facility] - 08/10/2024 4:35 AM EDT Performed at: [address] [place] [id number] House Cleaner Supervisor: Atul Duvall PhD, Phone: [phone] Allen Carr MD LAB BLOOD ORDERABLES Final Re sult Performing Organization Address City/[facility]/ZIP Co de Phone Number [facility] * (ABNORMAL) T4, free (08/09/2024 12:09 PM EDT) T4Free(Direct) 0.77(L) 0.82 - 1.77 ng/dL [facility] Blood Venous blood specimen / Unknown 08/09/2024 12:09 PM EDT 08/09/2024 Narrative [facility] - 08/10/2024 4:35 AM EDT Performed at: - [facility] [address] [id number] House Cleaner Supervisor: Atul Duvall PhD, Phone: [phone] us Allen Carr MD LAB BLOOD ORDERABLES Final Re sult [facility] from Last 3 Months Insurance [employer] [id number]
--- OUTSIDE RECORDS SUMMARY | 2024-09-06 12:42 | XMS_ITS | Encounter Summary ---
Author Organization [facility] Address [address] [place] [address] Care Team Providers Care Fuel Injection Servicer Name Role Phone Unavailable Primary Care Provider Unavailabl e Encounter Details Date Type Department Care Team (Late st Contact Info) Description 08/24/2022 External Result Encounter [facility] OB [address] [place] [address] Ha Baker, DO [address] Karina Aguirre, [facility] Social History Tobacco Use Types [...] Visit [facility] [address] [place] [address] Allen Carr MD [address] [place] [address] 10/08/2024 1:50 PM EDT Routine [facility] OB [address] [facility] [place] [address] Ha Baker, DO [address] [facility] [place] [address] documented as of this encounter Procedures Procedure [...] ppm 07/05/2023 8:40 AM EDT [facility] ACINETOBACTER BAUMANII Not Detected 19.961 - 24.689 ppm 07/05/2023 8:40 AM EDT [facility] CITROBACTER FREUNDII 0.000 23.000 - 31.881 ppm 07/05/2023 8:40 AM EDT [facility] CITROBACTER FREUNDII Not Detected 23.000 - 31.881 ppm 07/05/2023 8:40 AM EDT [facility] ENTEROBACTER AEROGENES, CLOACAE 0.000 23.000 - 31.535 ppm 07/05/2023 8:40 AM EDT [facility] ENTEROBACTER AEROGENES, CLOACAE Not Detected 23.000 - 31.535 ppm 07/05/2023 8:40 AM EDT [facility] ENTEROCOCCUS FAECALIS, FAECIUM 0.000 26.000 - 31.575 ppm 07/05/2023 8:40 AM EDT [facility] ENTEROCOCCUS FAECALIS, FAECIUM Not Detected 26.000 - 31.575 ppm 07/05/2023 8:40 AM EDT [facility] ESCHERICHIA COLI 0.000 23.000 - 28.500 ppm 07/05/2023 8:40 AM EDT [facility] ESCHERICHIA COLI Not Detected 23.000 - 28.500 ppm 07/05/2023 8:40 AM EDT [facility] KLEBSIELLA PNEUMONIAE, OXYTOCA 0.000 23.000 - 30.500 ppm 07/05/2023 8:40 AM EDT [facility] KLEBSIELLA PNEUMONIAE, OXYTOCA Not Detected 23.000 - 30.500 ppm 07/05/2023 8:40 AM EDT [facility] MORGANELLA MORGANII 0.000 19.961 - 24.689 ppm 07/05/2023 8:40 AM EDT [facility] MORGANELLA MORGANII Not Detected 19.961 - 24.689 ppm 07/05/2023 8:40 AM EDT [facility] PROTEUS MIRABILIS, VULGARIS 0.000 23.000 - 28.500 ppm 07/05/2023 8:40 AM EDT [facility] PROTEUS MIRABILIS, VULGARIS Not Detected 23.000 - 28.500 ppm 07/05/2023 8:40 AM EDT [facility] PSEUDOMONAS AERUGINOSA 0.000 23.000 - 28.500 ppm 07/05/2023 8:40 AM EDT [facility] PSEUDOMONAS AERUGINOSA Not Detected 23.000 - 28.500 ppm 07/05/2023 8:40 AM EDT [facility] STAPHYLOCOCCUS AUREUS 0.000 26.000 - 30.902 ppm 07/05/2023 8:40 AM EDT [facility] STAPHYLOCOCCUS AUREUS Not Detected 26.000 - 30.902 ppm 07/05/2023 8:40 AM EDT [facility] STREPTOCOCCUS AGALACTIAE (GROUP B STREP) 0.000 26.000 - 32.222 ppm 07/05/2023 8:40 AM EDT [facility] STREPTOCOCCUS AGALACTIAE (GROUP B STREP) Not Detected 26.000 - 32.222 ppm 07/05/2023 8:40 AM EDT [facility] SHOAIB ALBICANS, PARAPSILOSIS, TROPICALIS 0.000 23.000 - 30.770 ppm 07/05/2023 8:40 AM EDT [facility] SHOAIB ALBICANS, PARAPSILOSIS, TROPICALIS Not Detected 23.000 - 30.770 ppm 07/05/2023 8:40 AM EDT [facility] SHOAIB GLABRATA 0.000 23.000 - 32.138 ppm 07/05/2023 8:40 AM EDT [facility] SHOAIB GLABRATA Not Detected 23.000 - 32.138 ppm 07/05/2023 8:40 AM EDT [facility] SHOAIB KRUSEI 0.000 23.000 - 32.271 ppm 07/05/2023 8:40 AM EDT [facility] SHOAIB KRUSEI Not Detected 23.000 - 32.271 ppm 07/05/2023 8:40 AM EDT [facility] SERRATIA MARCESCENS 0.000 23.000 - 31.204 ppm 07/05/2023 8:40 AM EDT [facility] SERRATIA MARCESCENS Not Detected 23.000 - 31.204 ppm 07/05/2023 8:40 AM EDT [facility] STREPTOCOCCUS PYOGENES (GROUP A STREP) 0.000 19.961 - 24.689 ppm 07/05/2023 8:40 AM EDT [facility] STREPTOCOCCUS PYOGENES (GROUP A STREP) Not Detected 19.961 - 24.689 ppm 07/05/2023 8:40 AM EDT [facility] STAPHYLOCOCCUS EPIDERMIDIS, HAEMOLYTICUS, LUGDUNENSIS, SAPROPHYTICUS (URINA 0.000 19.961 - 24.689 ppm 07/05/2023 8:40 AM EDT [facility] STAPHYLOCOCCUS EPIDERMIDIS, HAEMOLYTICUS, LUGDUNENSIS, SAPROPHYTICUS (URINA Not Detected 19.961 - 24.689 ppm 07/05/2023 8:40 AM EDT [facility] STAPHYLOCOCCUS EPIDERMIDIS, HAEMOLYTICUS, LUGDUNENSIS, SAPROPHYTICUS (URINA 29.769(A) 19.961 - 24.689 ppm 07/05/2023 8:40 AM EDT [facility] STAPHYLOCOCCUS EPIDERMIDIS, HAEMOLYTICUS, LUGDUNENSIS, SAPROPHYTICUS (URINA Detected(A) 19.961 - 24.689 ppm 07/05/2023 8:40 AM EDT [facility] ACT, TAMMY, GÓMEZ, ACC GROUPS 0.000 23.000 - 31.085 ppm 07/05/2023 8:40 AM EDT [facility] ACT, TAMMY, GÓMEZ, ACC GROUPS Not Detected 23.000 - 31.085 ppm 07/05/2023 8:40 AM EDT [facility] CTX-M1 (15), M2 (2), M9 (9), M8-25 GROUPS 0.000 23.000 - 32.546 ppm 07/05/2023 8:40 AM EDT [facility] CTX-M1 (15), M2 (2), M9 (9), M8-25 GROUPS Not Detected 23.000 - 32.546 ppm 07/05/2023 8:40 AM EDT [facility] DFR (A1, A5), SUL (1,2) 0.000 23.000 - 27.000 ppm 07/05/2023 8:40 AM EDT [facility] DFR (A1, A5), SUL (1,2) Not Detected 23.000 - 27.000 ppm 07/05/2023 8:40 AM EDT [facility] ERMB, C; MEFA 23.418(A) 23.000 - 27.611 ppm 07/05/2023 8:40 AM EDT [facility] ERMB, C; MEFA Detected(A) 23.000 - 27.611 ppm 07/05/2023 8:40 AM EDT [facility] IMP, NDM, VIM GROUPS 0.000 23.000 - 32.894 ppm 07/05/2023 8:40 AM EDT [facility] IMP, NDM, VIM GROUPS Not Detected 23.000 - 32.894 ppm 07/05/2023 8:40 AM EDT [facility] MECA 0.000 23.000 - 31.199 ppm 07/05/2023 8:40 AM EDT [facility] MECA Not Detected 23.000 - 31.199 ppm 07/05/2023 8:40 AM EDT [facility] OXA-48, 51 0.000 23.000 - 31.345 ppm 07/05/2023 8:40 AM EDT [facility] OXA-48, 51 Not Detected 23.000 - 31.345 ppm 07/05/2023 8:40 AM EDT [facility] QNR A1, A2, B2 0.000 23.000 - 30.726 ppm 07/05/2023 8:40 AM EDT [facility] QNR A1, A2, B2 Not Detected 23.000 - 30.726 ppm 07/05/2023 8:40 AM EDT [facility] SHV, KPC GROUPS 0.000 23.000 - 31.647 ppm 07/05/2023 8:40 AM EDT [facility] SHV, KPC GROUPS Not Detected 23.000 - 31.647 ppm 07/05/2023 8:40 AM EDT [facility] TET B, TET M 22.096(A) 23.000 - 27.778 ppm 07/05/2023 8:40 AM EDT [facility] TET B, TET M Detected(A) 23.000 - 27.778 ppm 07/05/2023 8:40 AM EDT [facility] Randi, VanB 0.000 23.000 - 32.027 ppm 07/05/2023 8:40 AM EDT [facility] Reynaldo Bryan Not Detected 23.000 - 32.027 ppm 07/05/2023 8:40 AM EDT [facility] Urine 07/04/2023 3:25 PM EDT 07/05/2023 1:50 AM EDT us Karla CASTILLO LAB BLOOD ORDERABLES Final Resul t [facility] [address] [place] [address] * (ABNORMAL) URETHRITIS/DISCHARGE PLUS VAGINITIS (HTRX) (07/04/2023 3:23 PM EDT) Pathologist [facility] ATOPOBIUM VAGINAE 18.814(A) 19.961 - 24.689 ppm 07/05/2023 9:32 AM EDT [facility] ATOPOBIUM VAGINAE Detected(A) 19.961 - 24.689 ppm 07/05/2023 9:32 AM EDT [facility] BVAB 2,3 (BACTERIAL VAGINOSIS ASSOCIATED BACTERIA 2, 3); MOBILUNCUS SPP 0.000 19.961 - 24.689 ppm 07/05/2023 9:32 AM EDT [facility] BVAB 2,3 (BACTERIAL VAGINOSIS ASSOCIATED BACTERIA 2, 3); MOBILUNCUS SPP Not Detected 19.961 - 24.689 ppm 07/05/2023 9:32 AM EDT [facility] SHOAIB ALBICANS, PARAPSILOSIS, TROPICALIS 0.000 23.000 - 30.770 ppm 07/05/2023 9:32 AM EDT [facility] SHOAIB ALBICANS, PARAPSILOSIS, TROPICALIS Not Detected 23.000 - 30.770 ppm 07/05/2023 9:32 AM EDT [facility] SHOAIB GLABRATA 0.000 23.000 - 32.138 ppm 07/05/2023 9:32 AM EDT [facility] SHOAIB GLABRATA Not Detected 23.000 - 32.138 ppm 07/05/2023 9:32 AM EDT [facility] SHOAIB KRUSEI 0.000 23.000 - 32.271 ppm 07/05/2023 9:32 AM EDT [facility] SHOAIB KRUSEI Not Detected 23.000 - 32.271 ppm 07/05/2023 9:32 AM EDT [facility] CHLAMYDIA TRACHOMATIS 0.000 23.000 - 31.467 ppm 07/05/2023 9:32 AM EDT [facility] CHLAMYDIA TRACHOMATIS Not Detected 23.000 - 31.467 ppm 07/05/2023 9:32 AM EDT [facility] GARDNERELLA VAGINALIS 18.569(A) 19.961 - 24.689 ppm 07/05/2023 9:32 AM EDT [facility] GARDNERELLA VAGINALIS Detected(A) 19.961 - 24.689 ppm 07/05/2023 9:32 AM EDT [facility] MEGASPHAERA (TYPES 1, 2) 0.000 19.961 - 24.689 ppm 07/05/2023 9:32 AM EDT [facility] MEGASPHAERA (TYPES 1, 2) Not Detected 19.961 - 24.689 ppm 07/05/2023 9:32 AM EDT [facility] NEISSERIA GONORRHOEAE 0.000 23.000 - 32.117 ppm 07/05/2023 9:32 AM EDT [facility] NEISSERIA GONORRHOEAE Not Detected 23.000 - 32.117 ppm 07/05/2023 9:32 AM EDT [facility] TRICHOMONAS VAGINALIS 0.000 23.000 - 32.119 ppm 07/05/2023 9:32 AM EDT [facility] TRICHOMONAS VAGINALIS Not Detected 23.000 - 32.119 ppm 07/05/2023 9:32 AM EDT [facility] MYCOPLASMA GENITALIUM 0.000 19.961 - 24.689 ppm 07/05/2023 9:32 AM EDT [facility] MYCOPLASMA GENITALIUM Not Detected 19.961 - 24.689 ppm 07/05/2023 9:32 AM EDT [facility] DFR (A1, A5), SUL (1,2) 0.000 23.000 - 27.000 ppm 07/05/2023 9:32 AM EDT [facility] DFR (A1, A5), SUL (1,2) Not Detected 23.000 - 27.000 ppm 07/05/2023 9:32 AM EDT [facility] ERMB, C; MEFA 17.525(A) 23.000 - 27.611 ppm 07/05/2023 9:32 AM EDT [facility] ERMB, C; MEFA Detected(A) 23.000 - 27.611 ppm 07/05/2023 9:32 AM EDT [facility] TET B, TET M 19.057(A) 23.000 - 27.778 ppm 07/05/2023 9:32 AM EDT [facility] TET B, TET M Detected(A) 23.000 - 27.778 ppm 07/05/2023 9:32 AM EDT [facility] 07/04/2023 3:23 PM EDT 07/05/2023 1:50 AM EDT us Karla CASTILLO LAB BLOOD ORDERABLES Final [facility]ul t [facility] [address] [place] [address] * (ABNORMAL) URETHRITIS/DISCHARGE PLUS VAGINITIS (HTRX) (05/31/2023 4:59 PM EDT) ATOPOBIUM VAGINAE 0.000 19.961 - 24.689 ppm 06/01/2023 9:50 AM EDT [facility] ATOPOBIUM VAGINAE Not Detected 19.961 - 24.689 ppm 06/01/2023 9:50 AM EDT [facility] BVAB 2,3 (BACTERIAL VAGINOSIS ASSOCIATED BACTERIA 2, 3); MOBILUNCUS SPP 23.559(A) 19.961 - 24.689 ppm 06/01/2023 9:50 AM EDT [facility] BVAB 2,3 (BACTERIAL VAGINOSIS ASSOCIATED BACTERIA 2, 3); MOBILUNCUS SPP Detected(A) 19.961 - 24.689 ppm 06/01/2023 9:50 AM EDT [facility] SHOAIB ALBICANS, PARAPSILOSIS, TROPICALIS 0.000 23.000 - 30.770 ppm 06/01/2023 9:50 AM EDT [facility] SHOAIB ALBICANS, PARAPSILOSIS, TROPICALIS Not Detected 23.000 - 30.770 ppm 06/01/2023 9:50 AM EDT [facility] SHOAIB GLABRATA 0.000 23.000 - 32.138 ppm 06/01/2023 9:50 AM EDT [facility] SHOAIB GLABRATA Not Detected 23.000 - 32.138 ppm 06/01/2023 9:50 AM EDT [facility] SHOAIB KRUSEI 0.000 23.000 - 32.271 ppm 06/01/2023 9:50 AM EDT [facility] SHOAIB KRUSEI Not Detected 23.000 - 32.271 ppm 06/01/2023 9:50 AM EDT [facility] CHLAMYDIA TRACHOMATIS 0.000 23.000 - 31.467 ppm 06/01/2023 9:50 AM EDT [facility] CHLAMYDIA TRACHOMATIS Not Detected 23.000 - 31.467 ppm 06/01/2023 9:50 AM EDT [facility] GARDNERELLA VAGINALIS 0.000 19.961 - 24.689 ppm 06/01/2023 9:50 AM EDT [facility] GARDNERELLA VAGINALIS Not Detected 19.961 - 24.689 ppm 06/01/2023 9:50 AM EDT [facility] MEGASPHAERA (TYPES 1, 2) 0.000 19.961 - 24.689 ppm 06/01/2023 9:50 AM EDT [facility] MEGASPHAERA (TYPES 1, 2) Not Detected 19.961 - 24.689 ppm 06/01/2023 9:50 AM EDT [facility] NEISSERIA GONORRHOEAE 0.000 23.000 - 32.117 ppm 06/01/2023 9:50 AM EDT [facility] NEISSERIA GONORRHOEAE Not Detected 23.000 - 32.117 ppm 06/01/2023 9:50 AM EDT [facility] TRICHOMONAS VAGINALIS 0.000 23.000 - 32.119 ppm 06/01/2023 9:50 AM EDT [facility] TRICHOMONAS VAGINALIS Not Detected 23.000 - 32.119 ppm 06/01/2023 9:50 AM EDT [facility] MYCOPLASMA GENITALIUM 0.000 19.961 - 24.689 ppm 06/01/2023 9:50 AM EDT [facility] MYCOPLASMA GENITALIUM Not Detected 19.961 - 24.689 ppm 06/01/2023 9:50 AM EDT [facility] DFR (A1, A5), SUL (1,2) 0.000 23.000 - 27.000 ppm 06/01/2023 9:50 AM EDT [facility] DFR (A1, A5), SUL (1,2) Not Detected 23.000 - 27.000 ppm 06/01/2023 9:50 AM EDT [facility] ERMB, C; MEFA 0.000 23.000 - 27.611 ppm 06/01/2023 9:50 AM EDT [facility] ERMB, C; MEFA Not Detected 23.000 - 27.611 ppm 06/01/2023 9:50 AM EDT [facility] TET B, TET M 0.000 23.000 - 27.778 ppm 06/01/2023 9:50 AM EDT [facility] TET B, TET M Not Detected 23.000 - 27.778 ppm 06/01/2023 9:50 AM EDT [facility] Tissue 05/31/2023 4:59 PM EDT 06/01/2023 2:17 AM EDT us Ha Baker DO LAB BLOOD ORDERABLES Final Resul t [facility] [address] [place] [address] * (ABNORMAL) URETHRITIS/DISCHARGE PLUS VAGINITIS (HTRX) (01/26/2023 [...] 0.49 - 4.67 uIU/mL [facility] Comment:PERFORMED AT [facility] [address],[place] [address] 12/01/2022 1:14 PM EDT 12/01/2022 1:15 PM EDT us Ha Samuel DO LAB BLOOD ORDERABLES Final Resul t Performing Organization Address City/[facility]/ZIP Co de Phone Number [facility] * US OB 14+ weeks anatomy scan (08/24/2022 10:26 AM EDT) Anatomical Region Laterality Modality Body Ultrasound 08/24/2022 10:2 6 AM EDT Narrative 08/24/2022 10:25 AM EDT THIS EXAM WAS PERFORMED AT [facility] OBSTETRICS REPORT (Signed Final 08/24/2022 10:25) PATIENT INFO: ID #: [id number] : [birth year] (27 yrs)(F) Name: BRITTNEE CANNON Visit Date: 08/24/2022 09:23 YSASI PERFORMED BY: Attending: Thao Callahan MD, [facility] Performed By: Herminia Armenta RDMS Referred By: Ha Rodríguez. Address: [address] [place] [address] [place] [address] Location: [facility] [place] SERVICE(S) PROVIDED: Comprehensive Anatomic Survey 75784 INDICATIONS: Screening for anatomic survey Z36.89 Obesity [...] Appears normal Interventr. Septum: Appears Normal Cardiac Oral: Normal Diaphragm: Appears normal 3 Vessel View: [...] obtained. BMI - 38. Thao Callahan MD, [facility] Electronically Signed Final Report 08/24/2022 10:25 IMPRESSION: 1. Single intrauterine , size consistent with assigned GARRETT. 2. No sonographic evidence of gross structural abnormality disclosed. 3. Amniotic fluid volume assessment (DVP) is normal. RECOMMENDATIONS: 1. Please see M consultation documentation from today's encounter. 2. Subsequent follow up or other follow up as clinically determined by primary OB provider unless otherwise specified by [facility]. 3. Results forwarded to ordering provider so they can follow up with the patient as necessary. Procedure Note Radiology, Radiologist, - 08/24/2022 THIS [facility] REPORT (Signed Final 08/24/2022 10:25) PATIENT INFO: ID #: [id number] : [birth year] (27 yrs)(F) Name: BRITTNEE CANNON Visit Date: 08/24/2022 09:23 YSASI PERFORMED BY: Attending: Thao Callahan MD, [facility] Performed By: Herminia Armenta RDMS Referred By: Ha Baker DO Ref. Address: [address] [place] [address] [place] [address] Location: [facility] [place] SERVICE(S) PROVIDED: Comprehensive Anatomic Survey 27112 INDICATIONS: Screening for anatomic survey Z36.89 Obesity [...] Appears normal Interventr. Septum: Appears Normal Cardiac Oral: Normal Diaphragm: Appears normal 3 Vessel View: [...] obtained. BMI - 38. Thao Callahan MD, [facility] Electronically Signed Final Report 08/24/2022 10:25 IMPRESSION: 1. Single intrauterine , size consistent with assigned GARRETT. 2. No sonographic evidence of gross structural abnormality disclosed. 3. Amniotic fluid volume assessment (DVP) is normal. RECOMMENDATIONS: 1. Please see [facility] consultation documentation from today's encounter. 2. Subsequent follow up or other follow up as clinically determined by primary OB provider unless otherwise specified by [facility]. 3. Results forwarded to ordering provider so they can follow up with the patient as necessary. us Ha PECK OB US PROCEDURES Final Resul t documented in this encounter Visit Diagnoses Not on filedocumented in this encounter
--- OUTSIDE RECORDS SUMMARY | 2024-09-06 12:42 | XMS_ITS | Encounter Summary ---
Author Organization [facility] Address [address] [place] [address] Care Team Providers Care Purchasing Supervisor Name Role Phone Unavailable Primary Care Provider Unavailabl e Encounter Details Date Type Department Care Team (Late Contact Info) Description 08/26/[address] [facility] [address] [place] [address] Ha Baker, DO [address] Karina Aguirre, [facility]11 Social History Tobacco Use Types [...] encounter Miscellaneous Notes * Telephone Encounter - Carolina Stone LPN - 08/26/2024 10:50 AM EDT Patient called the office still having nausea and asking for something for this advised script would be sent for her. PVU documented in this encounter Plan of Treatment Upcoming Encounters Date Type Department Care Team (Late Contact Info) Description 10/04/2024 10:40 AM EDT Office Visit [facility] [address] [place] [address] Allen Carr MD [address] [place] [address] 10/08/2024 1:50 PM EDT [facility]ine [facility] OB [address] [facility] [place] [address] Ha Baker, DO [address] [facility] [place] [address] documented as of this encounter Visit Diagnoses Diagnosis Nausea Nausea alone Positive urine test ([facility]) documented in this encounter
--- OUTSIDE RECORDS SUMMARY | 2024-09-06 12:43 | XMS_ITS | Encounter Summary ---
Author Organization [facility] Address [address] [place] [address] Care Team Providers Care Gas Engine Repairer Name Role Phone Unavailable Primary Care Provider Unavailabl e Encounter Details Date Type Department Care Team (Late Contact Info) Description 10/20/2022 Abstract [facility] OB [address] [place] [address] [place] [address] Calista Khan LPN Social History Tobacco [...] Office Visit [facility] END[facility] [address] [place] [address] Allen Carr MD [address] [place] [address] 10/08/2024 1:50 PM EDT Routine [facility] OB [address] [facility] [place] [address] Ha Baker, [address] [place] [address] documented as of this encounter Visit Diagnoses Not on filedocumented in this encounter
--- OUTSIDE RECORDS SUMMARY | 2024-09-06 12:43 | XMS_ITS | Encounter Summary ---
Author Organization [facility] Address [address] [place] [address] Care Team Providers Care Cardiovascular Radiologic Technologist Name Role Phone Unavailable Primary Care Provider Unavailabl e Encounter Details Date Type Department Care Team (Late Contact Info) Description 02/01/2023 Clinisync Result Encounter [facility] External Department Unsolicited Ivy Baker, DO [address] [facility] [address] [place], [place] [id number] Social History Tobacco Use Types Packs/Day Years [...] Visit [facility] END[facility]CRIN[facility] [address] [place] [address] Allen Carr MD [address] [place] [address] 10/08/2024 1:50 PM EDT Routine [facility] OB [address] [facility] [place] [address] Ivy Baker, DO [address] [facility] [place] [address] documented as of this encounter Procedures Procedure Name Priority Date/Time Associated Diagnosis Comments US PELVIS TRANSVAGINAL 02/01/2023 10:00 AM EST documented in this encounter Results * US PELVIS TRANSVAGINAL (02/01/2023 10:00 AM EST) Anatomical Region Laterality Modality Other 02/01/2023 10:0 0 AM EST Narrative 02/01/2023 10:03 AM EST The [address] [address] Ultrasound Report Signed Patient: BRITTNEE SMITH MR#: [id number] : 1995 Acct:[id number] Age/Sex: 27 / F ADM Date: 02/01/23 Loc: US Attending Dr: Ivy Baker D.O. Ordering Physician: Ivy Baker D.O. Date of Service: 02/01/23 Procedure(s): US pelvis transvaginal Accession Number(s): [id number] cc: Ivy Baker D.O.; Physician,Non-Staff M.D. The [address] [address] Patient Name: BRITTNEE SMITH MRN: [id number] date: 1995 Sex: F Assigned Patient Location: US Current Patient Location: US Accession/Order Number: [id number] Exam Date: 02/01/2023 09:11 Report Date: 02/01/2023 [...] Signed By: 02/01/23 1003 DD/ 1000 TD/TT: Tennis Player: Procedure Note Radiology, Radiologist, MD - 02/01/2023 [place] [address] Ultrasound Report Signed Patient: BRITTNEE SMITH [facility]#: [id number] : 1995Acct:[id number] Age/Sex: 27 / FADM Date: 02/01/23 Loc: US Attending Dr: Ivy Baker D.O. Ordering Physician: Ivy Baker D.O. Date of Service: 02/01/23 Procedure(s): US pelvis transvaginal Accession Number(s): [id number] cc: Ivy Baker D.O.; Physician,Non-Staff Mirela [facility] [place] [id number] Patient Name: BRITTNEE SMITH MRN: [id number] date: 1995 Sex: F Assigned Patient Location: [place] Current Patient Location: [place] Accession/Order Number: [id number] Exam Date: 02/01/2023 09:11 Report Date: 02/01/2023 [...] M.D. Signed By:02/01/23 1003 DD/ 1000 TD/TT: Tennis Player: us Ivy Baker DO [facility] Final Result documented in this encounter Visit Diagnoses Not on filedocumented in this encounter
--- OUTSIDE RECORDS SUMMARY | 2024-09-06 12:43 | XMS_ITS | Encounter Summary ---
Author Organization [facility] Address [address] [place] [address] Care Team Providers Care Skiing Instructor Name Role Phone Unavailable Primary Care Provider Unavailabl e Encounter Details Date Type Department Care Team (Late Contact Info) Description 10/25/2022 Abstract [facility] [address] [place] [address] Carolina Stone LPN [address] [place] [id number] Social History Tobacco Use Types Packs/Day Years [...] Office Visit [facility] [address] [place] [id number] Allen Carr MD [address] [place] [address] 10/08/2024 1:50 PM EDT Routine [facility] [address] [facility] [place] [address] Ha Baker, [address] [place] [address] documented as of this encounter Visit Diagnoses Not on filedocumented in this encounter
--- OUTSIDE RECORDS SUMMARY | 2024-09-06 12:43 | XMS_ITS | Encounter Summary ---
Author Organization [facility] Address [address] [place] [address] Care Team Providers Care Activities Attendant Name Role Phone Unavailable Primary Care Provider Unavailabl e Encounter Details Date Type Department Care Team (Late Contact Info) Description 08/05/2022 Orders Only [facility] OB [address] [facility] [address] Calista Khan LPN Social History Tobacco [...] [facility] [address] [place] [address] Allen Carr MD [address] [place] [address] 10/08/2024 1:50 PM EDT Routine [facility] [address] [facility] [place] [address] Ha Baker, [address] [place] [address] documented as of this encounter Visit Diagnoses Not on filedocumented in this encounter
--- OUTSIDE RECORDS SUMMARY | 2024-09-06 12:43 | XMS_ITS | Patient Health Record ---
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: [employer] Parent/Guardian: present Social History Sex Assigned At : Social History Observation Description Sex Assigned At Female Problems Problem Type SNOMED Code ICD Code Onset Dates Problem Status W/U Status Risk Notes Problem 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, 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 Problem Acute streptococcal pharyngitis (2600514745) Acute streptococcal pharyngitis (J02.0) Active confirmed Comment:rap id strep positive 10 days abx F/U 2 weeks EMPHASIZED THE NEED TO COMPLETE ALL 10 DAYS,Descri ption:Strep tococcal sore throat Problem Asthma (836331574) Asthma (J45.909) 000 Active confirmed Problem Health supervision of healthy or child receiving care (V20.1) (V20.1) Active confirmed Problem Allergic rhinitis (49509172) Allergic rhinitis (J30.9) 000 Active confirmed Problem History and physical examination, administrative (95721997) General medical examination for administrative purposes (V70.3) (V70.3) 006 Active confirmed Problem Dermatitis, atopic (691.) (691) 006 Active confirmed Problem Acute pharyngitis (171348522) Acute pharyngitis (J02.9) 010 Active confirmed Problem Acute bronchitis (disorder) (06207450) Bronchitis, acute (466.0) (466.0) Active confirmed Problem Well child visit (289946417) Routine or child health check (V20.2) (V20.2) 008 Active confirmed Problem Acute sinusitis (39223436) Acute infection of nasal sinus (J01.90) Problem resolved confirmed Comment:adv ised to take her zyrtec 10mg po daily- states that she has zyrtec at home,Descri ption:Acute sinusitis Plan Of Treatment No Information Insurance Providers Payer Name Payer Address Payer Phone Subscriber Number Group Number Insured Name Patient Relationship to Insured Coverage Start Date Coverage End Date [facility] [address] [address] [place] [address] [id number] Raya Mathur Self - patient is the insured 3 Medicaid CF after [employer] [address] [place] [address] [id number] Raya Mathur Self - patient is the insured 3 Medical (General) History Medical History History ICD Code 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
--- OUTSIDE RECORDS SUMMARY | 2024-09-06 12:43 | XMS_ITS | Encounter Summary ---
Author Organization [facility] Address [address] [place] [address] Care Team Providers Care Caser Up Name Role Phone Unavailable Primary Care Provider Unavailabl e Encounter Details Date Type Department Care Team (Late Contact Info) Description 10/28/2022 Abstract [facility] [address] [place] [address] [place] [address] Calista Khan LPN Social History Tobacco [...] Office Visit [facility] [address] [place] [address] Allen Carr MD [address] [place] [address] 10/08/2024 1:50 PM EDT Routine [facility] [address] [facility] [place] [address] Ha Baker, [address] [place] [address] documented as of this encounter Visit Diagnoses Not on filedocumented in this encounter
--- OUTSIDE RECORDS SUMMARY | 2024-09-06 12:43 | XMS_ITS | Encounter Summary ---
Author Organization [facility] tem Address [id number] [address] [place] [address] Care Team Providers Care Can Line Operator Name Role Phone No Pcp, No Pcp Primary Care Provider Unavailabl e Encounter Details Date Type Department Care Team (Latest Contact Info) Description 09/02/2024 Travel Social History Tobacco Use Types Packs/Day Years [...] on file documented as of this encounter Visit Diagnoses Not on filedocumented in this encounter Care Teams Can Line Operator Relationship Specialty Start Date End Date No Pcp, [place] [address] PCP - General Family Medicine 04/28/22 documented as of this encounter
--- OUTSIDE RECORDS SUMMARY | 2024-09-06 12:43 | XMS_ITS | Data Portability ---
Author Organization [place] - [employer] [facility] [address] [place] [address] [address] [place] [address] Care Team Providers Care Model Maker Name Role Phone NO PRIMARY CARE PROVIDER [id number] OTHER Assessment Encounter Date Assessment Date Assessment LastModified by Organization Details LastModified Time 07/08/2019 07/08/2019 post doing well, desires IUD Not available 07/09/2019 05:52:34 Plan of Treatment Reminders Order Date Submit Date Provider Last Modified By Organization Details Last Modified Time Details Appointments None recorded. Lab test, urine 2022 023 [email or web address] 3 03 - [facility], [address], [address], [place], [address], 3 15:37:49 beta-HCG, quantitativ e, serum or plasma 2022 023 [email or web address] [facility] [employer] [facility], [address], [place], [address], 3 13:48:08 abo group + rh type, blood 2022 023 [employer] [facility], [address], [place], [address], 3 13:08:35 pap, IG + CT + reflex HR HPV if ASC-U 2019 020 [email or web address] [facility], [address] [place], [address], 0 18:09:23 test, urine 2019 020 [email or web address] 03 - [facility], [address] [facility] [address], [address], [place], [address], 0 17:57:17 Referral None recorded. Procedures None recorded. Surgeries None recorded. Imaging None recorded. Medication Orders Multivitami ns 28 mg iron-800 mcg tablet 2022 023 [email or web address] 3 [id number], [address] [place], [address], 3 15:35:40 Patient TargetsNo targets recorded. Patient Instructions Encounter Date Encounter Id Patient Instructions Last Modified By Organization Details Last Modified Time 07/08/2019 [id number] after your delivery (the period): care instructions Not available 07/09/2019 05:53:03 Educational materials that are relevant to your visit today have been sent to the patient portal where you can view them. If you are not registered on our patient portal please go to our website at [email or web address] and register. Your lab results will also be visible to you on the portal. [email or web address] Not available 07/08/2019 09:59:38 control options discussed. vitamins given. Calcium, vitamin D advised for osteoporosis prevention. Kegel exercises explained. Patient coping post - well. 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 IUD Risks and Complications: Perforation: [...] cervix or vagina, such as bacterial vaginosis. [email or web address] Not available 07/09/2019 05:52:46 07/11/2019 [id number] Educational materials that are relevant to your visit today have been sent to the patient portal where you can view them. If you are not registered on our patient portal please go to our website at [email or web address] and register. Your lab results will also be visible to you on the portal. Not available 07/11/2019 17:57:27 Since uterus is [...] in 2 wks for 6wk PP visit. [email or web address] Not available 07/11/2019 18:01:59 07/31/2019 [id number] after your delivery (the period): care instructions [email or web address] Not available 07/31/2019 18:09:23 Educational materials that are relevant to your visit today have been sent to the patient portal where you can view them. If you are not registered on our patient portal please go to our website at [email or web address] and register. Your lab results will also be visible to you on the portal. [email or web address] Not available 07/31/2019 15:39:57 control options discussed. vitamins given. Calcium, vitamin D advised for osteoporosis prevention. Kegel exercises explained. Patient coping post - well. 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 [email or web address] Not available 07/31/2019 15:39:57 03/31/2022 [id number] learning about Not available 03/31/2022 15:37:49 learning [...] be visible to you on the portal. Not available 03/31/2022 14:26:33 - Viability u/s [...] HCG negati ve Not Available 03 - [facility] [address] [facility] [address], [place], [address], 07/11/2019 17:57:10 03/31/19 23 04/01/2022 ABO GROUP ING AND RHO(D ) TYPIN G ABO grouping O Not Available [facility] [address] [place], [address], 04/01/2022 13:08:35 03/31/19 23 04/01/2022 ABO GROUP ING AND RHO(D ) TYPIN G Rh factor Positi ve Pleas e note: Prior recor ds for this patie nt's ABO / Rh type are not avail able for addit ional verif icati on. Not Available [facility] ([facility]) [address] [facility], [place], [address], 04/01/2022 13:08:35 02/02/20 23 04/01/2022 HCG,B ETA SUBUN IT, QNT HCG,beta subunit,qnt, serum 57925 mIU/m L Femal e (Non- pregn ant) 0 - 5 (Post menop ausal ) 0 - 8 Femal e (Preg nant) Weeks of Gesta tion 3 6 - 71 4 10 - 750 5 441 - 3585 6 664 - 30141 7 1014 -3867 63 8 24467 -8903 71 9 45266 -6920 10 10 28297 -2479 77 12 86694 -1567 12 14 13822 - 59206 15 76549 - 12392 16 9208 - 68560 17 2680 - 04140 18 7861 - 69789 Resul ts confi rmed on dilut ion. Adan ECLIA metho dolog y Not Available [facility] ([facility]) [address] [facility], [place], [address], 04/01/2022 13:08:36 03/31/19 23 03/31/2022 pregn page test, urine HCG positi ve Not Available 03 - [facility] [address] [facility] [address], [place], [address], 03/31/2022 14:31:43 03/31/19 23 03/31/2022 US, obste tric, trans vagin al No observ ation record ed. [facility] [address], [place], [address], 04/01/2022 14:38:21 Result Notes None recorded. Problems Name Problem SNOMED Code Status Onset Date Resolution Date Notes Provider Name and Address Organization Details Recorded Time Obesity 337836192 Active 2017 Prepregn ant BMI>> Aziza Yohana ascencio [place] - [employer] [facility] 3 14:27:26 Pregnanc y 44367563 Completed 201705/28/2018 SRIKANTH Shannon - [employer] [facility] 3 15:12:00 Obesity 705730735 Completed 2017 Prepregn ant BMI>> Amparo ascencio, [facility] [employer] [facility] 9 11:38:23 Hyperthy roidism 61000821 Completed 201711/28/2017 Britney CASTILLO [address], [place], [address], [facility] - [employer] [facility] 8 12:57:05 Hypothyr oidism 97690221 Completed 2017 Onset ; 2 weeks after / placed on Syntroid 200mcg daily;En docrine> >Dr. Asher ocampo Amparo ascencio, [facility] [employer] [facility] 9 11:38:23 Hypothyr oidism 43749104 Active 2017 Onset ; 2 weeks after / placed on Syntroid 200mcg daily;En docrine> >Dr. Sotelo ([facility]) Amparo ascencio, [facility] [employer] [facility] 0 08:53:08 Body mass index 30+ - obesity 192066204 Completed 201812/25/2018 Sherrie Alford MD [address], [place], [address], [facility] [employer] [facility] 9 14:19:20 Body mass index 30+ - obesity 746535643 Completed 2018 Amparo ascencio, [facility] [employer] [facility] 9 11:38:23 Anemia of pregnanc y 70058402 Completed 201812/25/2018 Sherrie Alford MD [address], [place], [address], [facility] [employer] [facility] 9 14:19:16 Anemia of pregnanc y 45191133 Completed 2018 Amparo ascencio, [facility] [employer] [facility] 9 11:38:23 Pregnanc y-induce d hyperten aj 86025081 Completed 2018 [facility] [employer] [employer] [facility] [facility] 9 11:38:23 Pregnanc y-induce d hyperten aj 89419606 Completed 201802/06/2019 CLAIR VALENCIA MD [address], [place], [address], [facility] [employer] [facility] 9 11:12:08 Pregnanc y 00756014 Completed 201806/18/2019 [place] [facility] [employer] [facility] 3 15:12:00 Maternal obesity complica ting pregnanc y, childbir th and the [place] [facility] 48117156914 7 Completed 201812/25/2018 Sherrie Alford MD [address], [place], [address], [facility] [employer] [facility] 9 14:19:07 Maternal obesity complica ting pregnanc y, childbir th and [place] , [facility] 49674086453 7 Completed 2018 Amparo ascencio [facility] [employer] [facility] 0 08:53:08 Hypothyr oidism 15626665 Completed 2017 Onset ; 2 weeks after / placed on Syntroid 200mcg daily;En docrine> >Dr. Sotelo (endo) Amparo ascencio [facility] [employer] [facility] 0 08:53:08 Postnata l care status 124972570 Active Aziza ascencio [facility] [employer] Boogie [facility] 3 14:27:12 Anemia 088402727 Active Aziza ascencio [facility] [employer] [facility] 3 14:27:12 Problem Notes None recorded. Procedures Surgical History Date Name Laterality Status Provider Name and Address Organization Details Recorded Time 04/29/19 23 NEW OB EST commercial cancelled Eileen Agudelo [place] - [employer] [facility] 04/28/2022 08:45:50 03/31/19 23 OB Ultrasound Transvaginal completed Jillian Ivey [place] - [employer] [facility] 03/31/2022 15:51:35 07/31/19 20 Post- (Medicaid/Medica id HMO) completed Emanzully Accelon (TERMED) [place] [employer] [facility] 07/31/2019 15:39:57 07/31/19 20 Post- depression screening completed Emanise Accelon (TERMED) [place] [employer] [facility] 07/31/2019 15:39:57 07/31/19 20 Date of Last Pap Smear completed Aziza Muller [place] - [employer] [facility] 03/31/2022 14:36:32 07/11/19 20 IUD insertion completed Delmis Ruvalcaba [place] - [employer] [facility] 07/11/2019 14:19:31 07/08/19 20 Post- (Medicaid/Medica id HMO) completed Last Bonner [place] - [employer] [facility] 07/08/2019 09:59:38 07/08/19 20 Post- depression screening completed Last Bonner [place] [employer] [facility] 07/08/2019 09:59:38 06/04/19 20 NON-STRESS TEST (NST) Digital report in record) completed Last Bonner [place] [employer] [facility] 06/04/2019 09:43:05 06/04/19 20 OB Ultrasound Biophysical Profile with NST completed Danna Hu [place] [employer] [facility] 06/04/2019 10:20:46 06/04/19 20 NON-STRESS TEST (NST) Digital report in record) completed Alberta Brantley [place] - [employer] [facility] 06/04/2019 12:53:32 06/04/19 20 visit (Medicaid/HMO) completed Viky Case ([place]MED) [place] [employer] [facility] 06/04/2019 09:00:14 05/28/19 20 Telemedicine 11-20 minutes completed Sherrie Alford MD [address], [place], [address], [place] [employer] [facility] 05/28/2019 14:49:55 05/28/19 20 OB Ultrasound Follow-Up Anatomy/Growth completed Kylah Arzola [place] - [employer] [facility] 05/28/2019 14:24:32 05/15/19 20 visit (Medicaid/HMO) completed Batsheva Wilson [place] [employer] [facility] 05/15/2019 09:56:28 05/07/19 20 visit (Medicaid/HMO) completed Alberta Brantley [place] [employer] [facility] 05/07/2019 21:07:21 04/30/19 20 visit (Medicaid/HMO) completed Delmis Ruvalcaba [place] [employer] [facility] 04/30/2019 09:14:28 04/30/19 20 NON-STRESS TEST (NST) Digital report in record) completed Hannah Carranza [place] [employer] [facility] 04/30/2019 09:21:08 04/16/19 20 visit (Medicaid/HMO) completed Delmis Ruvalcaba [place] [employer] [facility] 04/16/2019 11:58:23 04/16/19 20 OB Ultrasound Follow-Up Anatomy/Growth completed Andie Berrios, MAINTENANCE OF WAY CLERK [address], [place], [address], [place] [employer] [facility] 04/16/2019 11:35:39 04/16/19 20 OB Ultrasound Follow-Up Anatomy/Growth completed Luzma Wilson [place] - [employer] [facility] 04/16/2019 10:08:15 04/02/19 20 visit (Medicaid/HMO) completed Delmis Ruvalcaba [place] [employer] [facility] 04/02/2019 13:31:12 03/19/19 20 visit (commercial) completed Leighann Aldridge [place] - [employer] [facility] 03/19/2019 13:53:25 03/12/19 20 OB Ultrasound Follow-Up Anatomy/Growth [facility] [place] [employer] [facility] 03/12/2019 09:12:26 02/26/20 19 visit (Medicaid/HMO) completed Emily Storey [place] - [employer] [facility] 02/25/2019 10:46:12 02/07/20 19 visit (Medicaid/HMO) completed Angelica Hogan [place] [employer] [facility] 02/06/2019 11:28:49 02/07/20 19 OB Ultrasound Transvaginal completed Candice Leos [place] [employer] [facility] 02/06/2019 11:01:39 02/07/20 19 OB Ultrasound Targeted Level 2 completed Candice Leos [place] [employer] [facility] 02/06/2019 11:01:38 01/18/20 19 visit (Medicaid/HMO) completed Delmis Ruvalcaba [place] [employer] [facility] 01/17/2019 11:07:21 01/02/20 19 visit (Medicaid/HMO) completed Gulshan Murphy [place] [employer] [facility] 01/01/2019 14:08:49 12/12/19 19 OB Ultrasound Nuchal Translucency completed Halie Fine (TERMED) [place] [employer] [facility] 12/11/2018 13:52:46 12/12/19 19 visit (commercial) completed Brenda Reyes [place] - [employer] [facility] 12/11/2018 14:02:18 11/21/19 19 NEW OB 1st Tri Medicaid/HMO completed Emily Storey [place] [employer] [facility] 11/20/2018 10:25:28 11/14/19 19 OB Ultrasound Transvaginal completed Halie Fine (TERMED) [place] [employer] [facility] 11/13/2018 09:46:21 07/17/19 19 Post- GLOBAL (Commercial) completed Secylia Andrey (TERMED) [place] [employer] [facility] 07/16/2018 11:28:52 07/17/19 19 Post- depression screening completed Pascaleylia Andrey (TERMED) [place] [employer] [facility] 07/16/2018 11:28:52 06/19/19 19 Post- (Medicaid/Medica id HMO) completed Krishna Coker MD [address], [place], [address], [place] [employer] [facility] 06/18/2018 09:20:45 06/19/19 19 Post- depression screening completed Krishna Coker MD [address], [place], [address], [facility] - [employer] [facility] 06/18/2018 09:20:45 05/19/19 19 visit (commercial) completed Emily Storey [place] [employer] [facility] 05/18/2018 10:18:20 05/19/19 19 visit (Medicaid/HMO) completed Emily Storey [place] [employer] [facility] 05/18/2018 10:18:13 05/19/19 19 NON-STRESS TEST (NST) Digital report in record) completed Gustavo Apodaca (TERMED) [facility] [employer] [facility] 05/18/2018 10:55:34 05/16/19 19 NON-STRESS TEST (NST) Digital report in record) completed Emily Storey [place] [employer] [facility] 05/15/2018 11:13:15 05/12/19 19 NON-STRESS TEST (NST) Digital report in record) completed Mo Balderas (TERMED) [place] [employer] [facility] 05/11/2018 11:31:41 05/10/19 19 visit (Medicaid/HMO) completed Emily Storey [place] [employer] [facility] 05/09/2018 09:19:55 05/10/19 19 NON-STRESS TEST (NST) Digital report in record) completed Cr Lee [place] [employer] [facility] 05/09/2018 09:45:21 05/05/19 19 NON-STRESS TEST (NST) Digital report in record) completed Angleica Hogan [place] [employer] [facility] 05/04/2018 12:21:53 05/02/19 19 visit (Medicaid/HMO) completed Leighann [place] [employer] [facility] 05/01/2018 12:20:16 05/02/19 19 NON-STRESS TEST (NST) Digital report in record) completed Gustavo Apodaca (TERMED) [place] [employer] [facility] 05/01/2018 12:12:29 05/02/19 19 visit (commercial) completed Emily Storey [place] - [employer] [facility] 05/01/2018 10:49:37 04/28/19 19 visit (commercial) completed Cr Lee [place] - [employer] [facility] 04/27/2018 10:41:07 04/28/19 19 NON-STRESS TEST (NST) Digital report in record) completed Emily Storey [place] - [employer] [facility] 04/27/2018 12:24:15 04/24/19 19 visit (Medicaid/HMO) completed Emily Storey [place] - [employer] [facility] 04/24/2018 14:02:17 04/24/19 19 NON-STRESS TEST (NST) Digital report in record) completed Mo Balderas (TERMED) [place] [employer] [facility] 04/24/2018 14:34:54 04/17/19 19 NON-STRESS TEST (NST) Digital report in record) completed Pascaleylbrett Balderas (TERMED) [place] [employer] [facility] 04/17/2018 13:23:57 04/17/19 19 visit (Medicaid/HMO) completed Gustavo Apodaca (TERMED) [place] [employer] [facility] 04/17/2018 12:09:50 04/06/19 19 OB Ultrasound Follow-Up Anatomy/Growth completed Halie Fine (TERMED) [place] [employer] [facility] 04/06/2018 15:49:44 04/06/19 19 OB Ultrasound Biophysical Profile with NST completed Halie Fine (TERMED) [place] [employer] [facility] 04/06/2018 15:49:45 04/06/19 19 NON-STRESS TEST (NST) Digital report in record) completed Pascaleylbrett Balderas (TERMED) [place] [employer] [facility] 04/06/2018 15:59:27 04/06/19 19 visit (Medicaid/HMO) completed Hannah Carranza [place] - [employer] [facility] 04/06/2018 14:39:16 03/28/19 19 visit (commercial) completed Angelica Hogan [place] - [employer] [facility] 03/28/2018 10:54:11 03/06/19 19 visit (commercial) completed Cr Lee [place] - [employer] [facility] 03/06/2018 15:43:53 02/07/20 18 OB Ultrasound Follow-Up Anatomy/Growth completed Rabia Echols (Termed) [place] - [employer] [facility] 02/06/2018 11:00:25 01/25/20 18 visit (Medicaid/HMO) completed Isabel Beaver (TERMED) [place] [employer] [facility] 01/24/2018 09:16:44 12/27/19 18 OB Ultrasound Transvaginal completed Addie Stroud [place] [employer] [facility] 12/26/2017 11:36:44 12/27/19 18 OB Ultrasound Targeted Level 2 completed Addie Stroud [facility] [employer] [facility] 12/26/2017 11:36:44 12/27/19 18 visit (Medicaid/HMO) completed Madonna Caballero (TERMED) [place] [employer] [facility] 12/26/2017 11:35:23 12/13/19 18 visit (Medicaid/HMO) completed Mica Shannon [place] [employer] [facility] 12/12/2017 09:13:52 11/29/19 18 NEW OB 2nd,3rd Tri Medicaid/HMO completed Meseret Mondragon (TERMED) [place] [employer] [facility] 11/28/2017 11:16:27 11/17/19 18 OB Ultrasound Nuchal Translucency completed Linda Hamlin [place] [employer] [facility] 11/16/2017 12:12:23 02/27/19 15 Hand surgery completed Meseret Mondragon (TERMED) [place] [employer] [facility] 11/28/2017 11:19:45 Imaging Results None recorded. Procedure Notes None recorded. Medical Equipment None Reported. Allergies Allergen ID Allergen Name Allergen Category Reaction Reaction Severity Criticality Documentation Date Start Date Code Code System Note Provider Name and Address Organization Details Recorded Time 904405 Substance with sulfonami de structure and antibacte rial mechanism of action (substanc e) medicatio n rash Not available Not available 11/16/2017 03044 8003 SNOMED Belén Dunia ascencio [place] - [employer] [facility] 8 12:16:45 390132 Pediazole medicatio n rash Not available Not available 11/16/2017 81364 RxNorm Belén Duque sonu, SRIKANTH - [employer] [facility] 8 12:17:12 Medications Name Sig Start Date [...] Body weight Heart rate Body temperature Systolic And Diastolic Provider Name and Address Organization Details Last Updated DateTime 3 162.56 cm 38.6 kg/m2 214542. 85 g 88 /min 97.7 [degF] 95/63 mm[Hg] Aziza Muller [place] - [employer] [facility] 3 14:26:56 Date Recorded Body height Body mass index (BMI) Body weight Heart rate Systolic And Diastolic Provider Name and Address Organization Details Last Updated DateTime 07/08/2019 162.56 cm 36.6 kg/m2 34136.89 g 71 /min 108/76 mm[Hg] Last Bonner [place] - [employer] [facility] 07/08/2019 09:59:50 Date Recorded Body height Body mass index (BMI) Body weight Heart rate Systolic And Diastolic Provider Name and Address Organization Details Last Updated DateTime 07/11/2019 162.56 cm 36.8 kg/m2 48238.2 g 86 /min 103/55 mm[Hg] Delmis Ruvalcaba [place] - [employer] [facility] 07/11/2019 14:18:23 Date Recorded Body height Body mass index (BMI) Body weight Heart rate Systolic And Diastolic Provider Name and Address Organization Details Last Updated DateTime 07/31/2019 162.56 cm 36.7 kg/m2 19625.77 g 86 /min 117/77 mm[Hg] Ellen Bowers (TERMED) [place] - [employer] [facility] 07/31/2019 15:40:06 Social History Question Answer Notes LastModified by Organizat ion Details LastModified Time Tobacco Smoking Status Never Smoker Meseret Mondragon (TERMED) null, [place] - [employer] [facility] 11/28/2017 11:19:16 Do You Have An Advance Directive? No [email or web address] Information not available 11/16/2017 Are You Blind Or Do You Have Difficulty Seeing? No [email or web address] Information not available 03/31/2022 Is Blood Transfusion Acceptable In An Emergency? Yes [email or web address] Information not available 11/16/2017 In The 14 Days Before Symptom Onset, Have You Had Close Contact With A Laboratory-confir med COVID-19 While That Case Was Ill? No [email or web address] Information not available 03/31/2022 In The 14 Days Before Symptom Onset, Have You Had Close Contact With A Person Who Is Under Investigation For COVID-19 While That Person Was Ill? No Information not available 03/31/2022 Have You Been To An Area Known To Be High Risk For COVID-19? No [email or web address] Information not available 03/31/2022 Are You Deaf Or Do You Have Serious Difficulty Hearing? No Information not available 03/31/2022 Physical Abuse No [email or web address] Informatio n not available 11/28/2017 Emotional Abuse No [email or web address] Informati on not available 11/28/2017 Illicit Drugs Denies Illicit Substance Abuse [email or web address] Information not available 11/16/2017 Impairment No Impairment [email or web address] Information not available 11/28/2017 Would You Like HIV Testing Or Counseling At This Time? No [email or web address] Information not available 03/31/2022 What Was The Date Of Your Most Recent Tobacco Screening? 03/31/2022 [email or web address] Information not available 03/31/2022 Are There Any Smokers In Your House? No [email or web address] Information not available 11/16/2017 How Much Tobacco Do You Smoke? No [email or web address] Information not available 03/31/2022 How Many Years Have You Smoked Tobacco? 0 [email or web address] Information not available 03/31/2022 Do You Have Difficulty Walking Or Climbing Stairs? No Information not available 03/31/2022 Sex: Female Functional Status Question Answer Note LastModified by Organizat ion Details LastModified Time What is your level of alcohol consumption? None Information not available 11/16/2017 Do you or have you ever used smokeless tobacco? Never used smokeless tobacco [email or web address] Information not available 03/31/2022 Do you have difficulty doing errands alone? No [email or web address] Information not available 03/31/2022 Do you have difficulty dressing or bathing? No Information not available 03/31/2022 Do you or have you ever used e-cigarettes or vape? Never used electronic cigarettes [email or web address] Information not available 03/31/2022 Mental Status Question Answer Note LastModified by Organization D etails LastModified Time Do you have difficulty concentrating, remembering or making decisions? No [email or web address] Information no t available 03/31/2022 Family History Relationship Description Onset Age of this Age Resolved Age Notes LastModified by Organization Details LastModified Time Paternal Grandfather Family history of malignant neoplasm [email or web address] Not available 2022 14:28:32 Maternal Grandfather Diabetes mellitus [email or web address] Not available 2022 14:28:32 Mother Pre-eclampsi a [email or web address] Not available 2022 14:28:32 Paternal Aunt Hypothyroidi sm [email or web address] Not available 2022 14:28:32 Paternal Grandmother Hypothyroidi sm [email or web address] Not available 2022 14:28:32 Medical History Condition Response Other N BRCA Test negative N Vulvar Cancer N Hyperthyroidism N Blood Transfusion N Emphysema COPD N BRCA POSITIVE N Colon cancer N Depression N Alzheimer's disease N Anxiety Disorder N Hemorrhoids N Obesity N Arthritis N Infertility N Acid Reflux (GERD) N Cancer N HIV positive N Melanoma N Stroke N Prostate cancer N Ovarian cyst N Shingles (Varicella zoster) N Hypertension, induced N Skin Disease N , missed N Pancreatic cancer N Headaches N Fibromyalgia N Fibrocystic breasts N RAVEN I, II [...] Attention deficit disorder N Breast Cancer N Hypothyroidism N Lung Disease N Menopausal Syndrome N Defects or Inherited Disease N Drug dependence/abuse N Breast Problem N Anesthesia Complications N SADIE I, II, III N Premature labor N Urinary tract infection N VAIN I, II, III N HPV positive N ARZATE testing negative N Deep vein thrombosis/DVT N Endometriosis N Neurologic problem N Heart murmer/Mitral valve prolapse N High Cholesterol N Dyspareunia N Rubella, non-immune N Recurrent loss N Parkinson's Disease N [...] s current relationship to the practice? 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 Date of Last Colonoscopy Frequency of Cycle [...] SNOMED-CT Code Diagnosis ICD10 Code Diagnosis Note [id number] Sherrie Alford MD 01 - [facility] [address] [place] [address] 11/16/2017 11:46:21 11/16/2017 12:45:44 screening 826965067 Z36.82 [id number] Damaris Reyes MD 01 - [facility] [address] [place] [address] 11/16/2017 11:49:21 11/16/2017 12:45:32 Genetic screening for disorder 452275915 Z13.71 screening 2437 63893 Z36.0 [id number] ANNA SOTOMAYOR 80 - ([facility]) [address] [place] [address] 0 11/28/2017 10:21:16 11/28/2017 12:38:40 Obesity 787477812 E66.9 Hypothyroidism 79625230 E03.9 [id number] Sherrie Alford MD 80 - ([facility]) [address] [address] 0 12/12/2017 08:58:24 12/12/2017 12:23:53 High risk 32375521 O09.92 [id number] Clair Valencia MD 80 - ([facility]) [address] [place] [address] 0 12/26/2017 11:14:30 12/26/2017 12:36:09 High risk 23842797 O09.92 Hypothyroi dism in 851499173 E03.9 [id number] Clair Valencia MD 80 - ([facility]) [address] [place] [address] 0 12/26/2017 11:15:01 12/26/2017 12:35:54 Routine care 496676921 Z34.90 [id number] Rafael Julian MD 80 - ([facility]) [address] [place] [address] 0 01/24/2018 09:12:46 01/24/2018 11:26:30 High risk 06315674 O09.892 Hypothyroidism 65382380 E03.9 [id number] Sherrie Alford MD 82 - ([facility]) [address] [place] [address] 0 02/06/2018 09:39:42 02/06/2018 10:59:54 Routine care 947850196 Z34.90 [id number] Romario Alex MD 03 - [facility] t Office [address] [facility] [address] [place] [address] 03/06/2018 14:53:45 03/06/2018 16:35:24 Routine care 783005071 Z34.82 [id number] Z34.9 2 [id number] Romario Alex MD 03 - [facility] t Office [address] [facility] [address] [place] [address] 03/28/2018 10:40:35 03/28/2018 15:27:48 Routine care 950935666 Z34.82 CONT. surveillan ce-KICK COUNT-LABO R PRECAUTION S-EDUCATIO N AND counseling Vaginitis 76090740 N76.0 [id number] Mayur Serra MD 03 - [facility] t Office [address] [facility] [address] [place] [address] 04/06/2018 14:20:11 04/06/2018 15:13:08 Routine care 038006615 Z34.82 [id number] Mayur Serra MD 03 - [facility] t Office [address] [facility] [address] [place] [address] 04/06/2018 15:04:15 04/06/2018 17:24:39 [id number] Kathleen Campbell MD 03 - [facility] t Office [address] [facility] [address] [place] [address] 04/06/2018 15:04:51 04/06/2018 17:26:29 Routine care 216408789 Z34.90 [id number] Sha Becker MD 03 - [facility] t Office [address] [facility] [address] [place] [address] 04/17/2018 11:57:49 04/17/2018 14:39:13 Routine care 334224730 Z34.82 [id number] Sha Becker MD 03 - [facility] t Office [address] [facility] [address] [place] [address] 04/17/2018 12:33:49 04/17/2018 14:40:34 [id number] Leighann Aldridge APRN 03 - [facility] Office [address] [facility] [address] [place] [address] 04/24/2018 13:44:24 04/24/2018 15:59:40 [id number] Leighann Aldridge APRN 03 - [facility] Office [address] [facility] [address] [place] [address] 04/24/2018 13:46:43 04/24/2018 15:58:17 Routine care 360201754 Z34.03 - induced hypertension 61620745 O13.9 Anemia of 2734 2003 O99.019 Body mass index 30+ - obesity 539692774 Z68.38 [id number] Sha Becker MD 03 - [facility] Office [address] [facility] [address] [place] [address] 04/27/2018 10:20:12 04/27/2018 14:05:00 Obesity 690824233 E66.9 [id number] Sha Becker MD 03 - [facility] Office [address] [facility] [address] [place] [address] 04/27/2018 10:20:24 04/27/2018 11:03:17 Routine care 972949007 Z34.82 07415546 Z34.9 3 At increas ed risk of sexually transmitted infection 156365905 Z11.3 [id number] Leighann Aldridge APRN 03 [facility] Office [address] [facility] [address] [place] [address] 05/01/2018 10:19:46 05/01/2018 12:33:44 Maternal obesity complicating , childbirth and the puerperium, antepartum 0477554776 07 O99.213 Routine an tenatal care 930619113 Z34.82 Normal 7152477 2 Z34.83 [id number] Leighann Aldridge APRN 03 - [facility] Office [address] [facility] [address] [place] [address] 05/01/2018 10:19:46 05/01/2018 12:33:44 Routine care 555568316 Z34.82 Obesity 455199963 E66.9 [id number] Sha Becker MD 03 - [facility] Office [address] [facility] [address] [place] [address] 05/04/2018 11:32:45 05/04/2018 13:45:29 [id number] Z33.1 [id number] Leighannher Chris Aldridge APRN 03 [facility] Office [address] [facility] [address] [place] [address] 05/09/2018 09:00:57 05/09/2018 10:36:56 Maternal obesity complicating , childbirth and the puerperium, antepartum 0018945189 07 O99.609 [id number] Leighann Aldridge APRN 03 [facility] Office [address] [facility] [address] [place] [address] 05/09/2018 09:01:23 05/09/2018 15:49:43 High risk 35511683 O09.93 - induced hypertension 67324665 O13.9 [id number] Leighannher Chris Aldridge APRN 03 [facility] Office [address] [facility] [address] [place] [address] 05/11/2018 10:41:26 05/11/2018 12:00:35 [id number] Mayur Serra MD 03 - [facility] Office [address] [facility] [address] [place] [address] 05/15/2018 10:33:45 05/15/2018 12:43:01 Obesity 150200348 E66.9 Routine an tenatal care 811976027 Z34.82 [id number] Leighann Aldridge APRN 03 [facility] Office [address] [facility] [address] [place] [address] 05/18/2018 09:55:21 05/18/2018 12:45:32 [id number] Z33.1 [id number] Leighann Aldridge APRN 03 [facility] Office [address] [place] [address] [address] [place] [address] 05/18/2018 09:55:32 05/18/2018 12:43:32 Routine care [id number] Z34.82 [id number] Krishna Coker MD 03 [facility] Office [address] [facility] [address] [place] [address] 06/18/2018 09:13:23 06/18/2018 09:46:54 state 23928237 Z39.2 [id number] Alberta Brantley MD 03 [facility] Office [address] [facility] [address] [place] [address] 07/16/2018 11:17:25 07/16/2018 12:17:50 state 18162740 Z39.2 Initial pr escription of oral contraception 779888287 Z30.559 [id number] Leighann Aldridge APRN 03 [facility] Office [address] [place] [address] [address] [place] [address] 11/13/2018 08:54:52 11/13/2018 14:50:20 Amenorrhea 29262421 N91.1 Urine preg gustavo test positive 034678038 Z32.01 Normal 9974709 2 Z33.1 Maternal o besity complicating , childbirth and the puerperium, antepartum 4615110801 07 O99.213 Nausea and vomiting 1693 2000 R11.2 Hypothyroidism 32680425 E03.9 [id number] Sha Becker MD 03 [facility] Office [address] [facility] [address] [place] [address] 11/13/2018 09:31:52 11/13/2018 14:49:36 Routine care 227368162 Z34.90 [id number] Leighann Aldridge APRN [address] [place] [address] Office [address] [facility] [address] [place] [address] 11/20/2018 09:42:36 11/20/2018 15:07:34 Routine care 999271388 Z34.81 Maternal o besity complicating , childbirth and the puerperium, antepartum 7813401189 07 O99.830 [id number] Leighannher Chris Aldridge APRN 03 - [facility] Office [address] [facility] [address] [place] [address] 12/11/2018 12:55:32 12/11/2018 17:30:54 Routine care 948178219 Z34.82 screening 2437 14336 Z36.0 [id number] Kathleen Campbell MD 03 - [facility] Office [address] [facility] [address] [place] [address] 12/11/2018 12:55:44 12/11/2018 17:34:02 screening 709324655 Z36.82 [id number] Sherrie Alford MD 09 - [facility] [address] [facility] [address] [place] [address] 12/25/2018 13:51:53 12/25/2018 14:56:05 Maternal obesity complicating , childbirth and the puerperium, antepartum 3457934854 07 O99.212 Hypothyroidism 56713722 E03.9 - induced hypertension 36817242 O13.9 [id number] Leighann Aldridge APRN 03 [facility] Office [address] [facility] [address] [place] [address] 01/01/2019 13:43:53 01/01/2019 14:09:43 Routine care 756392742 Z34.82 screening 2437 87031 Z36.1 [id number] Flor Caballero APRN 03 - [facility] Office [address] [facility] [address] [place] [address] 01/17/2019 10:14:54 01/17/2019 14:52:12 Routine care 495479238 Z34.82 [id number] CLAIR VALENCIA MD 09 - [facility] 100 Office [address] [facility] [address] [place] [address] 02/06/2019 10:17:51 02/06/2019 12:52:09 Routine care 052513213 Z34.90 [id number] CLAIR VALENCIA MD 09 - [facility] 100 Office [address] [facility] [address] [place] [address] 02/06/2019 10:18:54 02/06/2019 11:11:00 Hypothyroidism 19708980 E03.9 - induced hypertension 04463738 O13.9 Maternal o besity complicating , childbirth and the puerperium, antepartum 0468498863 07 O99.855 [id number] Leighann Chris Aldridge APRN 03 [facility] Office [address] [facility] [address] [place] [address] 02/06/2019 11:22:16 02/06/2019 17:16:30 Routine care 940993571 Z34.82 Constipation 23275698 K5 9.00 [id number] Leighann Chris Aldridge APRN 03 [facility] Office [address] [facility] [address] [place] [address] 02/25/2019 10:18:28 02/25/2019 12:41:13 Routine care 531219065 Z34.82 [id number] Sherrie Alford MD 09 - [facility] 100 Office [address] [facility] [address] [place] [address] 03/12/2019 09:03:19 03/12/2019 10:13:24 Hypothyroidism 10711723 E03.9 - induced hypertension 00665443 O13.9 Maternal o besity complicating , childbirth and the puerperium, antepartum 4758133332 07 O99.402 [id number] Sherrie Alford MD 09 - [facility] 100 Office [address] [facility] [address] [place] [address] 03/12/2019 09:04:41 03/12/2019 09:27:35 Routine care 898740648 Z34.90 [id number] Leighann Aldridge APRN 03 [facility] Office [address] [facility] [address] [place] [address] 03/19/2019 13:45:12 03/26/2019 14:41:38 Routine care 080472386 Z34.82 [id number] Z34.9 2 [id number] Flor Caballero, JUICE 03 - [facility] Office [address] [place] [address] 04/02/2019 13:24:12 04/02/2019 14:14:31 Routine care 544232044 Z34.82 [id number] Antione Bustamante MD 09 - [facility] 100 Office [address] [facility] [address] [place] [address] 04/16/2019 09:35:31 04/16/2019 12:32:25 Routine care 773093586 Z34.90 [id number] Andie Berrios APRN 09 - [facility] 100 Office [address] [facility] [address] [place] [address] 04/16/2019 09:38:04 04/16/2019 11:40:06 Hypothyroidism 70264500 E03.9 Maternal o besity complicating , childbirth and the puerperium, antepartum 6031031473 07 O99.212 Hypothyroi dism in 658808427 E03.9 [id number] Leighann Aldridge APRN - [facility] Office [address] [facility] [address] [place] [address] 04/16/2019 11:48:57 04/16/2019 14:14:38 Routine care 134326921 Z34.82 [id number] Sha Becker MD - [facility] Office [address] [facility] [address] [place] [address] 04/30/2019 09:04:17 04/30/2019 12:11:47 Routine care 637510886 Z34.90 Obesity 650719598 E66.9 [id number] Flor Caballero APRN 03 - [facility] t Office [address] [facility] [address] [place] [address] 04/30/2019 09:06:01 04/30/2019 12:12:40 Routine care 487556122 Z34.82 [id number] Alberta Brantley MD 03 - [facility] Office [address] [facility] [address] [place] [address] 05/07/2019 14:08:22 05/07/2019 17:12:55 Routine care 354531074 Z34.83 [id number] Sha Becker MD 03 - [facility] Office [address] [facility] [address] [place] [address] 05/15/2019 09:37:22 05/15/2019 14:13:52 Routine care 479430353 Z34.82 [id number] Sherrie Alford MD 09 - [facility] 100 Office [address] [facility] [address] [place] [address] 05/28/2019 14:08:45 05/28/2019 14:49:42 Routine care 806683110 Z34.90 [id number] Sherrie Alford MD 09 - [facility] 100 Office [address] [facility] [address] [place] [address] 05/28/2019 14:09:48 05/28/2019 15:12:57 Obesity 690272573 E66.9 Hypothyroi dism in 620021976 E03.9 [id number] Alberta Brantley MD 03 - [facility] Office [address] [facility] [address] [place] [address] 06/04/2019 08:39:49 06/04/2019 11:34:44 Routine care 170725171 Z34.82 [id number] Z34.9 3 Hypothyroi dism in 643560932 E03.9 Maternal o besity complicating , childbirth and the puerperium, antepartum 5001904289 07 O99.687 [id number] Danyell Hough MD 03 - [facility] Office [address] [facility] [address] [place] [address] 06/04/2019 09:30:27 06/04/2019 11:37:25 Routine care 772308676 Z34.90 [id number] Alberta Brantley MD 03 - [facility] Office [address] [place] [address] 06/04/2019 09:39:03 06/04/2019 11:36:25 Large for gestation age fetus 961763857 O35.8XX9 [id number] Sha Becker MD 03 - [facility] t Office [address] [facility] [address] [place] [address] 07/08/2019 09:24:02 07/08/2019 13:39:47 state 17684564 Z39.2 [id number] Alberta Brantley MD 03 - [facility] t Office [address] [facility] [address] [place] [address] 07/11/2019 14:11:53 07/12/2019 16:12:40 Contraception education 710023596 Z30.09 [id number] Cecelia Rodrigues MD 03 - [facility] t Office [address] [facility] [address] [place] [address] 07/31/2019 15:26:33 08/01/2019 16:21:54 state 67719637 Z39.2 Screening for malignant neoplasm of cervix 508173368 Z12.4 Contracept ion education 670474613 Z30.09 Pt still would like Mirena. As per Dr. Brantley, will schedule Mirena insertion under sonographi c guidance [id number] Noreen Mcfarlane APRN 03 - [facility] t Office [address] [facility] [address] [place] [address] 03/31/2022 14:12:10 03/31/2022 16:48:56 Amenorrhea 25186773 N91.1 not yet confirmed 1117829918 80928 Z32.00 [id number] Zach Mondragon MD 03 - [facility] t Office [address] [facility] [address] [place] [address] 03/31/2022 14:56:24 03/31/2022 16:49:45 Routine care 153003863 Z34.90 Health Concerns Section Related Observation LastModified by Organization Detai ls LastModified Time None Recorded Concern Status LastModified by Organization Details LastModified Time None Recorded Advance Directives Directive N: Payers Insurance Date Sequence Insurance Name Policy Number Policy Malagon Covered Member ID Malagon Member ID Guarantor Name 04/27/2022 1 [facility] (POS) [id number] Raya Mathur [id number] Raya Mathur 03/25/2019 1 [place] [id number] Raya Mathur [id number] Raya Mathur 03/28/2022 1 [facility] (MEDICAID REPLACEMENT - HMO) Raya Mccabeasi [id number] Raya Mathur 03/25/2019 1 [facility] [facility] 648 - SUPERMED (PPO) [id number] Munir Mccabeasi [id number] Raya Mccabeasi 04/20/2019 1 [employer] - [employer] (PPO) Munir Mccabeasi [id number] Raya Mccabeasi 06/21/2019 3 [employer] (POS II) Raya Mccabeasi [id number] Raya Mccabeasi 03/25/2019 1 [employer] (PPO) [id number] Raya Mccabeasi [id number] Raya Mccabeasi 04/20/2019 1 [employer] - MED[employer] (PPO) Munir Mccabeasi [id number] Raya Mathur Notes Date Note Type Note Provider Name and Address Organization Details Recorded Time 0 text/html VisitReported bypatient.Onset/Timing:da te of delivery: 06/10/2019 Type of delivery: Context:feeding choice: breast; good support from partner/family Associated Symptoms:no complaints Safety: Depression Scoredepression questionnaire score <13 Desired Contraception:Intrauterin e device (IUD) Sha Becker MD [address] [facility] [address], [place], [address], [facility] 07/09/2019 05:53:07 0 text/html Here for insertion of Mirena IUD. LMP 07/10/2019. Pt is 4.5 wks PP (S/P on 06/10/2019). She is . Alberta ascencio, [place] - [facility] [employer] 07/11/2019 18:02:21 0 text/html VisitReported bypatient.Onset/Timing:da te of delivery: 06/10/2019 Type of delivery: Context:Medical complications of : none none none none; Complications of labor: none none none none; feeding choice: breast and bottle Associated Symptoms:no complaints Safety: Depression Scoredepression questionnaire score <13 Desired Contraception:Intrauterin e device (IUD) 24yo P2 here for post- check. She [...] interested in an IUD. Cecelia Rodrigues MD [address] [facility] [address], [place], [address], [facility] 07/31/2019 16:41:49 3 text/html confirmationReported bypatient.Onset/Timing:LM [id number]; no menses for 2-3 months Quality:menstrual cycles [...] on 04/01/22 with [facility]. Noreen Mcfarlane APRN [address] [facility], [place], [address], [facility] 03/31/2022 16:00:57 OBGyn Episode Ob Episode Information Episode Created Date Number of Fetuses Patient Bloodtype Patient rh Status Prepregnancy Weight lbs Domestic Partner Domestic Partner Phone Father Name Content Administrator Status 11/29/19 18 1 O Positive 215 CLOSED Fetus Data First Name Last Name Admitted to NICU Weight (g) Sex Living Outcome Pediatric Complications Fetus ID Race Codes Race Delivery Type 3827.18 25 M true Full Term [id number] Problems Problem Notes Problem Name Start Date End Date Resolution Snomed Code Not e Obesity 11/16/2017 687058871 Prepregna nt BMI>> Hypothyroidism 11/28/2017 81086732 Onse t ; 2 weeks after / placed on Syntroid 200mcg daily;Endocrine>>Dr Melisa Campbell -induced hypertension 04/29/2018 66385139 Body mass index 30+ - obesity 04/24/2018 753465092 Anemia of 04/24/2018 02371619 Juanjo Calculation Initial Juanjo Date Initial Exam [...] Sound Latest Days Gestation 11/17/19 18 0 11/28/2017 05/27/19 19 0 Pre- Flowsheet Flowsheet Date 11/28/2017 Sweeney Score Blood Edema Fundus Height Fundus Units Glucose Ketones Leukocytes Nitrite Labor Signs Protein Cervic Dilation Cervic Effacement Cervic Station none 14 wks none negative Negative Other (see comments ) neg 0cm Type Weight in lbs Pre/Post Dialysis Refused Weight 202.745933876258 BP Diastolic BP Location Tested BP Systolic BP Type 66 110 sitting Fetus Heart Rate Present A 166 Present Fetus Movement Comments Patient is here [facility] in [facility] due to Hypothyroidism and Obesity ( BMI 36.7). 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 Had last follow up with her account development associate in [place] 5 years ago. Patient complaining of fatigue. [...] Weight in lbs Pre/Post Dialysis Refused Weight 196.329735848473 BP Diastolic BP Location Tested BP Systolic [...] Weight in lbs Pre/Post Dialysis Refused Weight 202.862561283130 BP Diastolic BP Location Tested BP Systolic [...] Weight in lbs Pre/Post Dialysis Refused Weight 200.020070088365 BP Diastolic BP Location Tested BP Systolic BP Type 74 L arm 97 sitting Fetus Heart Rate Present A 156 Fetus Movement A Yes Comments Echo done yesterday trivial mitral regurgitation...otherwise normal echo. : , patient was in the hospital [facility], told to purchase ligament belt... Flowsheet Date [...] Weight in lbs Pre/Post Dialysis Refused Weight 205.276924329487 BP Diastolic BP Location Tested BP Systolic [...] Weight in lbs Pre/Post Dialysis Refused Weight 213.547417322187 BP Diastolic BP Location Tested BP Systolic [...] Weight in lbs Pre/Post Dialysis Refused Weight 216.36475665523 BP Diastolic BP Location Tested BP Systolic [...] Weight in lbs Pre/Post Dialysis Refused Weight 217.094726847213 BP Diastolic BP Location Tested BP Systolic [...] Weight in lbs Pre/Post Dialysis Refused Weight 226.363707149336 BP Diastolic BP Location Tested BP Systolic BP Type 89 122 Fetus Heart Rate Present Fetus Movement Comments Flowsheet Date 04/24/2018 Sweeney Score Blood Edema Fundus Height Fundus Units Glucose Ketones Leukocytes Nitrite Labor Signs Protein Cervic Dilation Cervic Effacement Cervic Station none 35 cm none negative Negative none trace Type Weight in lbs Pre/Post Dialysis Refused Weight 226.817658726061 BP Diastolic BP Location Tested BP Systolic [...] two occasions in the last 2 weeks. PIH labs sent today. Reports + FM today. [...] Weight in lbs Pre/Post Dialysis Refused Weight 229.898593706711 BP Diastolic BP Location Tested BP Systolic [...] Weight in lbs Pre/Post Dialysis Refused Weight 227.740439449275 BP Diastolic BP Location Tested BP Systolic [...] Weight in lbs Pre/Post Dialysis Refused Weight 227.745768258818 BP Diastolic BP Location Tested BP Systolic BP Type 98 130 Fetus Heart Rate Present Fetus Movement Comments Flowsheet Date 05/09/2018 Sweeney Score Blood Edema Fundus Height Fundus Units Glucose Ketones Leukocytes Nitrite Labor Signs Protein Cervic Dilation Cervic Effacement Cervic Station Type Weight in lbs Pre/Post Dialysis Refused Weight 226.376158216490 BP Diastolic BP Location Tested BP Systolic BP Type 97 125 Fetus Heart Rate Present Fetus Movement Comments Flowsheet Date 05/09/2018 Sweeney Score Blood Edema Fundus Height Fundus Units Glucose Ketones Leukocytes Nitrite Labor Signs Protein Cervic Dilation Cervic Effacement Cervic Station none 37 cm none negative Negative none trace 1cm 4 0% -2 Type Weight in lbs Pre/Post Dialysis Refused Weight 226.468167041595 BP Diastolic BP Location Tested BP Systolic BP Type 97 125 sitting Fetus Heart Rate Present A 140 Fetus Movement A Yes Comments Reactive NST today, irregula r UC not felt by pt. Denies LOF or VB. Reports + FM. Was seen at [facility] this past Monday for DBP [...] Weight in lbs Pre/Post Dialysis Refused Weight 230.766243114035 BP Diastolic BP Location Tested BP Systolic BP Type 78 118 sitting Fetus Heart Rate Present Fetus Movement Comments Flowsheet Date 05/18/2018 Sweeney Score Blood Edema Fundus Height Fundus Units Glucose Ketones Leukocytes Nitrite Labor Signs Protein Cervic Dilation Cervic Effacement Cervic Station 1+ 39 cm none negative Negative none 1+ 1cm 20 % -3 Type Weight in lbs Pre/Post Dialysis Refused Weight 230.821135391555 BP Diastolic BP Location Tested BP Systolic BP Type 91 121 sitting Fetus Heart Rate Present A 145 Present Fetus Movement A Yes Comments IUP at 38.6 weeks. Reports + FM. Irregular contractions last night. Cervix as above. Denies LOF or VB. Denies s/s of pre-eclampsia. Reactive NST today. Has IOL scheduled tomorrow 6 pm [facility] for PIH at 39 weeks. Reviewed labor precautions, kick counts, and pre-eclampsia precautions. Flowsheet Date 05/18/2018 Sweeney Score Blood Edema Fundus Height Fundus Units Glucose Ketones Leukocytes Nitrite Labor Signs Protein Cervic Dilation Cervic Effacement Cervic Station Type Weight in lbs Pre/Post Dialysis Refused Weight 230.239735996840 BP Diastolic BP Location Tested BP Systolic [...] Palate false Cystic Fibrosis carrier false Thalassemia (South Korean, Gambian, Mediterranean, Or Background): MCV < 80 false Sickle Cell Disease false AMA Patient Age Will Be 35 Y ears Or Older At Estimated Date of Delivery false Thalassemia (South Korean, Gambian, Mediterranean, Or Background): MCV < 80 false Neural Tube Defect (Meningom yelocele, Spina Bifida, Or Anencephaly) false Congenital Heart Defect false Down Syndrome false Herbert-Sachs carrier (eg, Scientology, Cajun, Thai-Can adian) false Reid Disease false Sickle Cell Disease false Hemophilia Or Other Blood Disorders false Muscular Dystrophy false Cystic Fibrosis carrier false Nobles's Chorea false Autism/Mental Retardation false Inherited Genetic [...] B Strep) POS false Fragile-X carrier false Scientology Panel POSITIVE false APA Father of baby [...] Post Complications [facility]al [facility]ilization [facility] PIH, HYPOTHYRO IDISM, ANEMIA Discharge Information Feeding Method Contraceptive Method Maternal HG B and HCT Levels Ob Episode Information Episode Created Date Number of Fetuses Patient Bloodtype Patient rh Status Prepregnancy Weight lbs Domestic Partner Domestic Partner Phone Father Name Content Administrator Status 11/14/19 19 1 O Positive CLOSED Fetus Data First Name Last Name Admitted to NICU Weight (g) Sex Living Outcome Pediatric Complications Fetus ID Race Codes Race Delivery Type 3316.89 15 F true Full Term [id number] Problems Problem Notes Hx of PIH last wit hout meds. NIPS: Horizon screen negative 10/2017; [id number] to be drawn after 10 weeks Problem Name Start Date End Date Resolution Snomed Code Not e Maternal obesity complicating , childbirth and the puerperium, antepartum 11/13/2018 240966178113 Hypothyroidism 11/28/2017 65804750 Onse t ; 2 weeks after / [...] Weight in lbs Pre/Post Dialysis Refused Weight 211.254541497276 BP Diastolic BP Location Tested BP Systolic [...] drawn today. Hx of Hypothyroidism. Saw her account development associate last week with thyroid function labs done [...] Weight in lbs Pre/Post Dialysis Refused Weight 208.030740857233 BP Diastolic BP Location Tested BP Systolic [...] . Reviewed NIPS: Horizon screen negative 10/2017; [id number] to be drawn after 10 weeks. RTO 3 weeks for NT US and visit. Flowsheet Date 12/11/2018 Sweeney Score Blood Edema Fundus Height Fundus Units Glucose Ketones Leukocytes Nitrite Labor Signs Protein Cervic Dilation Cervic Effacement Cervic Station none 12 cm none negative Negative none neg Type Weight in lbs Pre/Post Dialysis Refused Weight 206.779533241576 BP Diastolic BP Location Tested BP Systolic [...] Weight in lbs Pre/Post Dialysis Refused Weight 203.96277281740 BP Diastolic BP Location Tested BP Systolic BP Type 75 109 Fetus Heart Rate Present Fetus Movement Comments Flowsheet Date 01/01/2019 Sweeney Score Blood Edema Fundus Height Fundus Units Glucose Ketones Leukocytes Nitrite Labor Signs Protein Cervic Dilation Cervic Effacement Cervic Station none 17 cm none small Negative none trace Type Weight in lbs Pre/Post Dialysis Refused Weight 202.956498603382 BP Diastolic BP Location Tested BP Systolic [...] Weight in lbs Pre/Post Dialysis Refused Weight 207.132168676618 BP Diastolic BP Location Tested BP Systolic [...] Weight in lbs Pre/Post Dialysis Refused Weight 210.450101249982 BP Diastolic BP Location Tested BP Systolic BP Type 71 102 Fetus Heart Rate Present Fetus Movement Comments Flowsheet Date 02/06/2019 Sweeney Score Blood Edema Fundus Height Fundus Units Glucose Ketones Leukocytes Nitrite Labor Signs Protein Cervic Dilation Cervic Effacement Cervic Station none 20 cm none negative Negative none neg Type Weight in lbs Pre/Post Dialysis Refused Weight 208.032324636223 BP Diastolic BP Location Tested BP Systolic [...] Weight in lbs Pre/Post Dialysis Refused Weight 212.55672998981 BP Diastolic BP Location Tested BP Systolic BP Type 67 98 sitting Fetus Heart Rate Present A 140 Present Fetus Movement A Yes Comments Feeling well, no complaints. Reports active fetus. Denies cramping or vaginal bleeding. Has follow up Level 2 US and shira visit scheduled 03/12 to recheck placenta location. Has not been contacted with appt date for echo, I asked the bowling or skating front desk clerk to call coordinator yoni/gustavo to call today [...] Weight in lbs Pre/Post Dialysis Refused Weight 215.233694362980 BP Diastolic BP Location Tested BP Systolic BP Type 70 105 Fetus Heart Rate Present Fetus Movement Comments Flowsheet Date 03/19/2019 Sweeney Score Blood Edema Fundus Height Fundus Units Glucose Ketones Leukocytes Nitrite Labor Signs Protein Cervic Dilation Cervic Effacement Cervic Station none 27 cm none moderate Negative none trace Type Weight in lbs Pre/Post Dialysis Refused Weight 217.884217861120 BP Diastolic BP Location Tested BP Systolic [...] of insurance and she cannot see her account development associate now. Currently on Synthroid 250 mcg daily. [...] Weight in lbs Pre/Post Dialysis Refused Weight 217.388303943423 BP Diastolic BP Location Tested BP Systolic [...] Weight in lbs Pre/Post Dialysis Refused Weight 218.72056044819 BP Diastolic BP Location Tested BP Systolic BP Type 74 106 Fetus Heart Rate Present Fetus Movement Comments Flowsheet Date 04/16/2019 Sweeney Score Blood Edema Fundus Height Fundus Units Glucose Ketones Leukocytes Nitrite Labor Signs Protein Cervic Dilation Cervic Effacement Cervic Station none 32 cm none small Negative none neg Type Weight in lbs Pre/Post Dialysis Refused Weight 217.269660866302 BP Diastolic BP Location Tested BP Systolic [...] Weight in lbs Pre/Post Dialysis Refused Weight 222.952791014707 BP Diastolic BP Location Tested BP Systolic BP Type 59 95 Fetus Heart Rate Present Fetus Movement Comments Flowsheet Date 04/30/2019 Sweeney Score Blood Edema Fundus Height Fundus Units Glucose Ketones Leukocytes Nitrite Labor Signs Protein Cervic Dilation Cervic Effacement Cervic Station none 32 cm none negative Negative none neg Type Weight in lbs Pre/Post Dialysis Refused Weight 222.140289101235 BP Diastolic BP Location Tested BP Systolic [...] Weight in lbs Pre/Post Dialysis Refused Weight 224.655749572096 BP Diastolic BP Location Tested BP Systolic BP Type 85 L arm 122 sitting Fetus Heart Rate Present A 140 Present Fetus Movement A Yes Comments Has been having pelvic press ure, cramping and low back pain. Was seen at [facility] for these sxs on 05/03/2019 and [...] Weight in lbs Pre/Post Dialysis Refused Weight 225.858279639687 BP Diastolic BP Location Tested BP Systolic [...] Weight in lbs Pre/Post Dialysis Refused Weight 229.550971829040 BP Diastolic BP Location Tested BP Systolic BP Type 83 116 Fetus Heart Rate Present Fetus Movement Comments Flowsheet Date 06/04/2019 Sweeney Score Blood Edema Fundus Height Fundus Units Glucose Ketones Leukocytes Nitrite Labor Signs Protein Cervic Dilation Cervic Effacement Cervic Station trace 36 cm none negative Negative neg 0cm 2 0% -4 Type Weight in lbs Pre/Post Dialysis Refused Weight 230.713863074685 BP Diastolic BP Location Tested BP Systolic [...] low on 04/16. Pt reports seeing her account development associate since then and her Synthroid was increased to 250 mcg per day. She had a repeat normal Free T4 in mid to late April with her account development associate. Today, NST is reactive; no contractions present. [...] Weight in lbs Pre/Post Dialysis Refused Weight 230.247201705222 BP Diastolic BP Location Tested BP Systolic [...] her placenta. Recommend pt could go to [facility] to get checked or call office in [...]
--- OUTSIDE RECORDS SUMMARY | 2024-09-06 12:43 | XMS_ITS | Encounter Summary ---
Author Organization [facility] tem Address [id number] [address] [place] [address] Care Team Providers Care Medical Claims Processor Name Role Phone No Pcp, No Pcp Primary Care Provider Unavailabl e Encounter Details Date Type Department Care Team (Late st Contact Info) Description 08/24/2022 Orders Only Maternal- Medicine at [facility] [address] [place] [phone] Ref Prov, [place] [address] Social History Tobacco Use Types Packs/Day Years [...] on filedocumented in this encounter Care Teams Medical Claims Processor Relationship Specialty Start Date End Date No Pcp, [place] [address] PCP - General Family Medicine 04/28/22 documented as of this encounter
--- OUTSIDE RECORDS SUMMARY | 2024-09-06 12:43 | XMS_ITS | Encounter Summary ---
Author Organization [facility] Address [address] [place] [address] Care Team Providers Care Drain Tile Machine Operator Name Role Phone Unavailable Primary Care Provider Unavailabl e Encounter Details Date Type Department Care Team (Late Contact Info) Description 10/27/2022 Abstract [facility] [address] [address] Carolina Stone LPN [address] [place] [id number] Social History Tobacco Use Types Packs/Day Years [...] Office Visit [facility] [address] [place] [phone] Allen Carr MD [address] [place] [address] 10/08/2024 1:50 PM EDT Routine [facility] [address] [place] [address] Ha Baker, [address] [place] [address] documented as of this encounter Visit Diagnoses Not on filedocumented in this encounter
--- OUTSIDE RECORDS SUMMARY | 2024-09-06 12:43 | XMS_ITS | Patient Health Record ---
Author Organization [facility] Address [address] [place] [address] Care Team Providers Care Bulb Sorter Name Role Phone emmy schultz Unavailable [phone] Allergies Allergen (clinical drug ingredient) Drug/Non Drug [...] stomach in the morning Orally Once a day; Duration: 30 day(s) 08/14/2018 Active Mobic 15 MG 1 tablet Orally Once a day; Duration: 30 day(s) Active Social History Alcohol Screening: Question Answer Notes Did you have a drink contain ing alcohol in the past year? Yes How often did you have a dri nk containing alcohol in the past year? Monthly or less (1 point) Points 1 Interpretation Negative Problems Problem Type SNOMED Code ICD Code Onset Dates Problem Status W/U Status Risk Notes Problem Obesity (120596341) Obesity (BMI 35.0-39.9 without comorbidity) (E66.9) Active confirmed Plan Of Treatment Pending Test Test Name Order Date X ray : Spines, lumbosacral 08/14/2018 URINE RAPID TEST 08/14/2018 CMP Comprehensive Metabolic Panel w/ eGF R (12615) [facility] 08/14/2018 Lipid Panel w/ Reflex to Direct LDL (148 52) [facility] 08/14/2018 Vitamin D, 25-Hydroxy, Total, Immunoassa y (28375) - [facility] 08/14/2018 HEMOGLOBIN A1c (496) [facility] 08/14/2018 UA Urinalysis Complete (3185) [facility] 07/28 CBC (includes Differential and Platelets ) (6639) [facility] 08/14/2018 TSH and FREE T4 (82987) [facility] 08/14/2018 Insurance Providers Payer Name Payer Address Payer Phone Subscriber Number Group Number Insured Name Patient Relationship to Insured Coverage Start Date Coverage End Date BCBS [facility] PPO/POS/ HMO XPRESS [address] [place] [address] [id number] Raya Mathur Self - patient is the insured Medical (General) History Medical History History ICD Code high blood pressure THYROID DISORDER Surgical History Surgery Date(Month/Year) right hand surgery 10/11 Hospitalization History Reason Date(Month/Year) broken hand 09/10 induced 05/17/18
--- OUTSIDE RECORDS SUMMARY | 2024-09-06 12:43 | XMS_ITS | Encounter Summary ---
Author Organization [facility] Address [address] [place] [address] Care Team Providers Care Tire Tester Name Role Phone Unavailable Primary Care Provider Unavailabl e Encounter Details Date Type Department Care Team (Late Contact Info) Description 07/29/2022 Orders Only [facility] [address] [place] [address] Provider, MD Mihir [address] [place] [address] Social History Tobacco Use Types Packs/Day Years [...] Visit [facility] [address] [place] [address] Allen Carr MD [address] [place] [address] 10/08/2024 1:50 PM EDT Routine [facility] [address] [place] [address] Ha Baker, DO [address] [place] [address] documented as of this encounter Procedures Procedure [...]
--- OUTSIDE RECORDS SUMMARY | 2024-09-06 12:43 | XMS_ITS | Clinical Summary ---
Author Organization [employer] [facility] tem Address [id number] [address] [place] [address] Care Team Providers Care Hospital Admissions Clerk Name Role Phone No Pcp, No Pcp [...] total) by mouth in the morning. Active polyethylene glycol (GLYCOLAX) 17 gram packet Take 17 g by mouth in the morning for 90 days. 90 packet 09/02/2024 Active Encounters Date Type Department Care Team Description 09/02/2024 Travel 09/01/2024 11:57 PM EDT - 09/02/2024 2:02 AM EDT Emergency [facility] - Emergency [address] [place] [phone] Valerie Shen MD Constipation, unspecified constipation type (Primary Dx); 9 weeks gestation of Discharge Disposition: Home from Last 3 Months Family History Medical History Relation Name Comments [...] Mass Index 37.76 09/02/2024 12:02 AM EDT Plan of Treatment Health Maintenance Due Date Last Done Comments Depression Screening 2005 Tobacco Screening 2005 Adult BMI Follow Up Plan 2011 Pap Smear 2014 DTaP,Tdap and Td Vaccines (2 - Td or Tdap) 08/05/2015 08/04/2005 Influenza Vaccine 10/28/2024 Adult BMI Screening 09/02/2025 09/02/2024 Medical Devices Not on file Procedures Procedure Name Priority Date/Time Associated Diagnosis Comments POCT , URINE (NUCG) Routine 09/02/2024 1:46 AM EDT POCT NURSING URINE MACROSCOPIC UA Routine 09/02/2024 1:45 AM EDT from Last 3 Months Results * (ABNORMAL) POCT , urine (09/02/2024 1:46 AM EDT) POC Urine Positive( A) Negative, Indeterminate 09/02/2024 1:40 AM EDT [facility] Urine 09/02/2024 1:46 AM EDT 09/02/2024 1:40 AM EDT us Valerie Shen MD POINT OF CARE TEST ORDERABLES Fi nal Result [facility] [address] [place] [address], * (ABNORMAL) POCT Nursing Urine Macroscopic UA (09/02/2024 1:45 AM EDT) POC Urine Specific [place] >=1.030(A) 1.010, 1.015, 1.020, 1.025 09/02/2024 1:38 AM EDT [facility] POC Urine Leukocyte Esterase Negative Negative 09/02/2024 1:38 AM EDT [facility] POC Urine Nitrite Negative Negative 09/02/2024 1:38 AM EDT [facility] POC Urine pH 6.0 5.0, 6.0, 6.5, 7.0, 7.5, 8.0, 8.5, 5.5 09/02/2024 1:38 AM EDT [facility] POC Urine Protein Negative Negative 09/02/2024 1:38 AM EDT [facility] P[facility] Urine Glucose Negative Negative 09/02/2024 1:38 AM EDT [facility] Urine Ketones Negative Negative 09/02/2024 1:38 AM EDT [facility] Urine Urobilinogen 0.2 E.U./dL 09/02/2024 1:38 AM EDT [facility] POC Urine Bilirubin Negative Negative 09/02/2024 1:38 AM EDT [facility] POC Urine Blood/HGB Trace(A) Negative 09/02/2024 1:38 AM EDT [facility] Urine 09/02/2024 1:45 AM EDT 09/02/2024 1:38 AM EDT us Valerie Shen MD POINT OF CARE TEST ORDERABLES Fi nal Result [facility] [address] [place] [address], from Last 3 Months Insurance [place] [employer] Care Teams Hospital Admissions Clerk Relationship Specialty Start Date End Date No Pcp, [place] [address] PCP - General Family Medicine 04/28/22
[2024-09-06 13:49] LABS: Hematocrit 36.8 % (36.0-48.0); Hemoglobin 12.6 g/dL (12.0-16.0); Immature Granulocytes Abs Auto 0.05 10^3/uL (0.00-0.03); Immature Granulocytes Pct Auto 0.4 % (0.0-0.5); Lymphocytes Absolute Auto 3.3 10^3/uL (1.2-3.8); Mean Corpuscular HGB Conc 34.2 g/dL (29.9-35.2); Mean Corpuscular Hemoglobin 28.8 pg (26.7-34.0); Mean Corpuscular Volume 84.0 fL (81.0-99.0); Platelet Count 239 10^3/uL (150-450); Red Blood Count 4.38 10^6/uL (4.20-5.40); White Blood Count 11.5 10^3/uL (4.0-11.0)
[2024-09-06 14:25] LABS: Cannabinoid Screen Urine NEGATIVE (NEGATIVE); Methamphetamines Screen Urine NEGATIVE (NEGATIVE); Tricyclic Antidepressant Urine NEGATIVE (NEGATIVE)
[2024-09-07 08:16] LABS: Rubella Antibodies, IgG 1.22 index (Immune >0.99)
[2024-09-07 13:09] LABS: Rapid Plasma Reagin, Quant Non Reactive titer (NonRea<1:1)
== END 2024-09-06 12:40 | disposition home or self-care (01) ==
LOC: LAB 12:40
PROVIDERS: Visit Provider Obstetrics & Gynecology
DX: Z34.01 Encounter for supervision of normal first pregnancy, first trimester (principal); N92.6 Irregular menstruation, unspecified
CPT/HCPCS: 36415; 80307; 83036; 85025; 86592; 86762; 86803; 86850; 86900; 86901; 87086; 87340; 87389

== ENCOUNTER 2024-09-19 10:01 | Outpatient (OUT) | payer OTHER, SELFPAY ==
--- OUTSIDE RECORDS SUMMARY | 2024-09-05 13:00 | XMS_ITS | Encounter Summary ---
Author Organization [facility] Address [address] [place] [address] Care Team Providers Care Director Of Kids Name Role Phone Unavailable Primary Care Provider Unavailabl e Encounter Details Date Type Department Care Team (Latest Contact Info) Description 09/05/2024 1:00 PM EDT Ancillary Procedure [facility] [address] [facility] [place] [address] Missed menses; Positive urine test ([facility]) Social History Tobacco Use Types Packs/Day Years Used Date Smoking Tobacco: Never Smokeless Tobacco: Never Alcohol Use Standard Drinks/Week Comments Yes 2 (1 standard drink = 0.6 oz pure alcohol) Alcohol: 1 or 2 drinks, 2 to 4 times a month; Caffeine: 1 can /week Estimated Date of Delivery Comme nts Yes 04/11/2025 Based on Ultraso und Sex and Gender Information Value Date Recorded Sex Assigned at Female 07/26/2022 8:23 AM EDT Legal Sex Female 7:11 PM EDT Gender Identity Female 07/26/2022 8:23 AM EDT Sexual Orientation Straight 07/26/2022 8: 23 AM EDT documented as of this encounter Plan of Treatment Upcoming Encounters Date Type Department Care Team (Late st Contact Info) Description 10/04/2024 10:40 AM EDT Office Visit [facility] [address] [place] [address] Allen Carr MD [address] [place] [address] 10/08/2024 1:50 PM EDT Routine [facility] [address] [place] [id number] Ha Baker, DO [address] [facility] [place] [address] documented as of this encounter Procedures Procedure Name Priority Date/Time Associated Diagnosis Comments US OB TRANSVAGINAL Routine 09/05/2024 1: 28 PM EDT Missed menses Positive urine test ([facility]) documented in this encounter Results * US OB transvaginal (09/05/2024 1:28 PM EDT) Anatomical Region Laterality Modality Body Ultrasound 09/05/2024 2:50 PM EDT Impressions 09/05/2024 3:10 PM EDT Findings consistent with a live intrauterine gestation, current sonographic age of 8 weeks and 6 days resulting in an estimated date of delivery of April 11, 2025. TRANSCRIBED BY: ELECTRONICALLY SIGNED BY: Shlomo Luciano MD Narrative 09/05/2024 3:10 PM EDT FINDINGS: A single intrauterine gestational sac is present. No subchorionic hemorrhage. A single pole is present. Normal heart rate at 184 beats per minute. Yolk sac also is seen. Current sonographic age is 8 weeks and 6 days based on the crown-rump length measurement of 2.2 cm. Based on this age, current estimated date of delivery is April 11, 2025. No pelvic fluid or adnexal mass present. Cervical length is 4.7cm, closed. Procedure Note Shlomo Luciano MD - 09/05/2024 FINDINGS: A single intrauterine gestational sac is present. No subchorionichemorrhage. A single pole is present. Normal heart rate at184 beats per minute. Yolk sac also is seen. Current sonographic age is8 weeks and 6 days based on the crown-rump length measurement of 2.2 cm.Based on this age, current estimated date of delivery is March. No pelvic fluid or adnexal mass present. Cervical length is 4.7cm,closed. IMPRESSION: Findings consistent with a live intrauterine gestation, currentsonographic age of 8 weeks and 6 days resulting in an estimated date ofdelivery of April 11, 2025. TRANSCRIBED BY: ELECTRONICALLY SIGNED BY: Shlomo Luciano MD us Ha Baker DO IMG OB US PROCEDURES Final Resul t documented in this encounter Visit Diagnoses Diagnosis Missed menses Positive urine test ([facility]) documented in this encounter
--- OUTSIDE RECORDS SUMMARY | 2024-09-05 13:30 | XMS_ITS | Encounter Summary ---
Author Organization [facility] Address [address] [facility] [place] [address] Care Team Providers Care Welt Beater Name Role Phone Unavailable Primary Care Provider Unavailabl e Reason for Visit * Reason Comments Amenorrhea Encounter Details Date Type Department Care Team ([facility] Contact Info) Description 09/05/2024 1:30 PM EDT Initial [facility] OB [address] [place] [address] [place] [address] GA: 8w6d Social History Tobacco Use Types Packs/Day Years [...] Taken Comments Blood Pressure - - Pulse - - Temperature - - Respiratory Rate - - Oxygen Saturation - - Inhaled Oxygen Concentration - - Weight 104 kg (228 lb 6.4 oz) 09/05/2024 2:05 PM EDT Height - - Body Mass Index 39.2 08/09/2024 11:20 AM EDT documented in this encounter Progress Notes * Marcie Flannery LPN - 09/05/2024 1:30 PM EDT Reason for Appointment: Patient ID: Raya Mathur is a 29 y.o. female who presents for Amenorrhea Patient presents today for a Nurse OB Intake appointment. Patient is 8w6d with a Estimated Date of Delivery: 04/11/25 OB History Para Term AB Living 4 2 2 3 SAB IAB Ectopic Multiple Live Births 3 # Outcome Date GA Lbr Markell/2nd Weight Sex Type Anes PTL Lv 4 Current 3 Term 06/10/19 38w1d 7 lb 5 oz F Vag-Spont None N SESAR 2 Term 05/21/18 39w2d 8 lb 7 oz M Vag-Spont EPI N SESAR 1 Current Medications: has a current medication list which includes the following prescription(s): fluticasone, levothyroxine, ondansetron odt, vitamins, and synthroid, and the following Facility-Administered Medications: levonorgestrel. 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 Acute bronchitis 05/13/2024 Acute pharyngitis 09/10/2009 Acute streptococcal pharyngitis 05/13/2024 Encounter for childhood immunizations appropriate for age 0708/30/2007 Obesity affecting , antepartum ([facility]) 11/13/2018 Hyperthyroidism 11/28/2017 Resolved Ambulatory Problems Diagnosis Date Noted Anemia of ([facility]) 04/24/2018 -induced hypertension ([facility]) 04/29/2018 Past Medical History: Diagnosis Date Body mass index 38.0-38.9, adult Cluster headache Dietary counseling and surveillance Disease of thyroid gland H/O chlamydia infection History of medical problems Hypothyroidism Obesity UTI (urinary tract infection) 2014 Vitamin D deficiency Family History Problem Relation Name Age of Onset Hypothyroidism Father Diabetes Maternal Grandfather Grandpa Lymphoma Paternal Grandfather Diabetes Other paternal aunts Thyroid disease Other paternal side Social History Tobacco Use Smoking status: Never Smokeless tobacco: Never Substance Use Topics Alcohol use: Yes Alcohol/week: 2.0 standard drinks of alcohol Types: 2 Glasses of wine per week Comment: Alcohol: 1 or 2 drinks, 2 to 4 times a month; Caffeine: 1 can /week Drug use: Never Past Surgical History: Procedure Laterality Date HAND SURGERY 2014 ORIF right hand WISDOM TOOTH EXTRACTION 07/2013 teeth Allergies Allergen Reactions Sulfa Antibiotics Other and Rash Other Reaction(s): Unknown Other Rash and Other PEDIAZOLE Sulfamethoxazole Rash Vitals: Estimated body mass index is 39.2 kg/m?? as calculated from the following: Height as of 08/09/24: 5' 4 . Weight as of this encounter: 228 lb 6.4 oz. BP: Patient's last menstrual period was 06/26/2024. Assessment/Plan Diagnoses and all orders for this visit: Missed menses - Type and screen; Future - ABO/Rh; Future - CBC and differential - Hemoglobin A1c - RPR - Rubella antibody, IgG - Hepatitis B surface antigen - Hepatitis C antibody - HIV-1 and HIV-2 antibodies - Urine culture - POCT , urine manually resulted - POCT urinalysis dipstick manually resulted , unspecified gestational age ([facility]) - Type and screen; Future - ABO/Rh; Future - CBC and differential - Hemoglobin A1c - RPR - Rubella antibody, IgG - Hepatitis B surface antigen - Hepatitis C antibody - HIV-1 and HIV-2 antibodies - Rapid drug screen, urine; Future Encounter for supervision of normal first in first trimester ([facility]) - Rapid drug screen, urine; Future Nurse Note: OB Intake: Patient presents today for first OB visit. Patients history has been reviewed in great detail including any potential risks. Patient signed consent forms and patient desires testing in both trimesters. Patient currently has no complaints and has been advised to drink 6-8 glasses of water a day, eatno raw or undercooked meat, and stay away from [facility]. Patient has also been advised to not change litter boxes and eat 6 small meals a day. Patient has been consulted regarding the do's and don'ts ofpregnancy. Patient was given labs and all questions and concerns were answered. Follow Up: Patient is to return in 4 weeks for routine OB appointment. Follow Up: Patient is to have labs drawn at directed and return to office for initial OB appointment with provider. Patient may call office as needed with any concerns or questions. Nurse Visit Completed by: Marcie Flannery LPN documented in this encounter Plan of Treatment Upcoming Encounters Date Type Department Care Team (Late st Contact Info) Description 10/04/2024 10:40 AM EDT Office Visit [facility] [address] [place] [address] Allen Carr MD [address] [place] [address] 10/08/2024 1:50 PM EDT Routine [facility] [address] [place] [address] Ha Baker, DO [address] [facility] [place] [address] Scheduled Orders Name Type Priority Associated Diagnoses Orde r Schedule Type and screen Lab Routine Missed menses , unspecified gestational age ([facility]) Expected: 09/05/2024 (Approximate), Expires: 09/05/2025 ABO/Rh Lab Routine Missed menses , unspecified gestational age ([facility]) Expected: 09/05/2024 (Approximate), Expires: 09/05/2025 CBC and differential Lab Routine Missed menses , unspecified gestational age ([facility]) Ordered: 09/05/2024 Hemoglobin A1c Lab Routine Missed menses , unspecified gestational age ([facility]) Ordered: 09/05/2024 RPR Lab Routine Missed menses , unspecified gestational age ([facility]) Ordered: 09/05/2024 Rubella antibody, IgG Lab Routine Missed menses , unspecified gestational age ([facility]) Ordered: 09/05/2024 Hepatitis B surface antigen Lab Routine Missed menses , unspecified gestational age ([facility]) Ordered: 09/05/2024 Hepatitis C antibody Lab Routine Missed menses , unspecified gestational age ([facility]) Ordered: 09/05/2024 HIV-1 and HIV-2 antibodies Lab Routine Missed menses , unspecified gestational age ([facility]) Ordered: 09/05/2024 Urine culture Microbiology Routine Missed menses Ordered: 09/05/2024 Rapid drug screen, urine Lab Routine , unspecified gestational age ([facility]) Encounter for supervision of normal first in first trimester ([facility]) Expected: 09/05/2024 (Approximate), Expires: 09/05/2025 documented as of this encounter Procedures Procedure Name Priority Date/Time Associated Diagnosis Comments POCT , URINE Routine 09/05/2024 2:01 PM EDT Missed menses POCT URINALYSIS DIPSTICK Routine 09/05/2024 2:01 PM EDT Missed menses documented in this encounter Results * POCT urinalysis dipstick manually resulted (09/05/2024 2:01 PM EDT) Color, UA Yellow Clarity, UA Clear Glucose, UA Negative Negative - 2000(110) ++++ mg/dL Bilirubin, UA Negative Negative - 4(70) +++ mg/dL Ketones, UA Negative Negative - 160(16) ++++ mg/dL Spec Grav, UA 1.020 1 - 1.03 Blood, UA Negative Negative - 50 John/mcL pH, UA 6.0 5 - 9 Protein, UA Negative Negative - 2000(20) ++++ mg/dL Urobilinogen, UA 1.0 0.2 - 12 mg/dL Leukocytes, UA Negative Negative - 500+++ Anderson/mcL Nitrite, UA Negative Negative - Positive Urine 09/05/2024 2:01 PM EDT Ha Baker DO POINT OF CARE TEST ENTER/EDIT OR DERABLES Final Result * (ABNORMAL) POCT , urine manually resulted (09/05/2024 2:01 PM EDT) Preg Test, Ur Positive Negative Urine 09/05/2024 2:01 PM EDT Ha Baker DO POINT OF CARE TEST ENTER/EDIT OR DERABLES Final Result documented in this encounter Visit Diagnoses Diagnosis Missed menses , unspecified gestational age ([facility]) Encounter for supervision of normal first in first trimester ([facility]) documented in this encounter
--- OUTSIDE RECORDS SUMMARY | 2024-09-19 10:05 | XMS_ITS | Encounter Summary ---
Author Organization [facility] Address [address] [place] [address] Care Team Providers Care Slip Feeder Name Role Phone Unavailable Primary Care Provider Unavailabl e Encounter Details Date Type Department Care Team (Late st Contact Info) Description 08/18/2022 Abstract [facility] [address] [place] [address] Ha Baker, DO [address] [place], [place] [id number] Social History Tobacco Use Types Packs/Day Years [...] Office Visit [facility] [address] [place] [address] Allen Carr MD [address] [place] [address] 10/08/2024 1:50 PM EDT Routine [facility] [address] [facility] [place] [address] Ha Baker DO [address] [place] [address] [place] [address] documented as of this encounter Visit Diagnoses Not on filedocumented in this encounter
--- OUTSIDE RECORDS SUMMARY | 2024-09-19 10:05 | XMS_ITS | Encounter Summary ---
Author Organization [facility] Address [address] [place] [address] Care Team Providers Care Appraiser Land Name Role Phone Unavailable Primary Care Provider Unavailabl e Encounter Details Date Type Department Care Team (Late Contact Info) Description 09/06/[address] [facility] [address] [place] [address] Ha Baker, DO [address] [place], [facility] Social History Tobacco Use Types Packs/Day [...] Office Visit [facility] [address] [place] [address] Allen Carr MD [address] [place] [address] 10/08/2024 1:50 PM EDT Routine [facility] [address] [facility] [place] [address] Ha Baker, [address] [place] [address] documented as of this encounter Visit Diagnoses Not on filedocumented in this encounter
--- OUTSIDE RECORDS SUMMARY | 2024-09-19 10:05 | XMS_ITS | Encounter Summary ---
Author Organization [facility] Address [address] [place] [address] Care Team Providers Care Carriage Rider Name Role Phone Unavailable Primary Care Provider Unavailabl e Encounter Details Date Type Department Care Team (Late Contact Info) Description 08/24/2022 External Result Encounter [facility] OB [address] [place] [address] Ha Baker, DO [address] Karina Aguirre, [facility] Social History [...] Visit [facility] [address] [place] [address] Allen Carr MD [address] [place] [address] 10/08/2024 1:50 PM EDT Routine [facility] [address] [facility] [place] [address] Ha Baker, DO [address] [facility] [place] [address] documented as of this encounter Procedures Procedure [...] ppm 07/05/2023 8:40 AM EDT [facility] ACINETOBACTER BAUMANII Not Detected 19.961 - 24.689 ppm 07/05/2023 8:40 AM EDT [facility] CITROBACTER FREUNDII 0.000 23.000 - 31.881 ppm 07/05/2023 8:40 AM EDT [facility] CITROBACTER FREUNDII Not Detected 23.000 - 31.881 ppm 07/05/2023 8:40 AM EDT [facility] ENTEROBACTER AEROGENES, CLOACAE 0.000 23.000 - 31.535 ppm 07/05/2023 8:40 AM EDT [facility] ENTEROBACTER AEROGENES, CLOACAE Not Detected 23.000 - 31.535 ppm 07/05/2023 8:40 AM EDT [facility] ENTEROCOCCUS FAECALIS, FAECIUM 0.000 26.000 - 31.575 ppm 07/05/2023 8:40 AM EDT [facility] ENTEROCOCCUS FAECALIS, FAECIUM Not Detected 26.000 - 31.575 ppm 07/05/2023 8:40 AM EDT [facility] ESCHERICHIA COLI 0.000 23.000 - 28.500 ppm 07/05/2023 8:40 AM EDT [facility] ESCHERICHIA COLI Not Detected 23.000 - 28.500 ppm 07/05/2023 8:40 AM EDT [facility] KLEBSIELLA PNEUMONIAE, OXYTOCA 0.000 23.000 - 30.500 ppm 07/05/2023 8:40 AM EDT [facility] KLEBSIELLA PNEUMONIAE, OXYTOCA Not Detected 23.000 - 30.500 ppm 07/05/2023 8:40 AM EDT [facility] MORGANELLA MORGANII 0.000 19.961 - 24.689 ppm 07/05/2023 8:40 AM EDT [facility] MORGANELLA MORGANII Not Detected 19.961 - 24.689 ppm 07/05/2023 8:40 AM EDT [facility] PROTEUS MIRABILIS, VULGARIS 0.000 23.000 - 28.500 ppm 07/05/2023 8:40 AM EDT [facility] PROTEUS MIRABILIS, VULGARIS Not Detected 23.000 - 28.500 ppm 07/05/2023 8:40 AM EDT [facility] PSEUDOMONAS AERUGINOSA 0.000 23.000 - 28.500 ppm 07/05/2023 8:40 AM EDT [facility] PSEUDOMONAS AERUGINOSA Not Detected 23.000 - 28.500 ppm 07/05/2023 8:40 AM EDT [facility] STAPHYLOCOCCUS AUREUS 0.000 26.000 - 30.902 ppm 07/05/2023 8:40 AM EDT [facility] STAPHYLOCOCCUS AUREUS Not Detected 26.000 - 30.902 ppm 07/05/2023 8:40 AM EDT [facility] STREPTOCOCCUS AGALACTIAE (GROUP B STREP) 0.000 26.000 - 32.222 ppm 07/05/2023 8:40 AM EDT [facility] STREPTOCOCCUS AGALACTIAE (GROUP B STREP) Not Detected 26.000 - 32.222 ppm 07/05/2023 8:40 AM EDT [facility] SHOAIB ALBICANS, PARAPSILOSIS, TROPICALIS 0.000 23.000 - 30.770 ppm 07/05/2023 8:40 AM EDT [facility] SHOAIB ALBICANS, PARAPSILOSIS, TROPICALIS Not Detected 23.000 - 30.770 ppm 07/05/2023 8:40 AM EDT [facility] SHOAIB GLABRATA 0.000 23.000 - 32.138 ppm 07/05/2023 8:40 AM EDT [facility] SHOAIB GLABRATA Not Detected 23.000 - 32.138 ppm 07/05/2023 8:40 AM EDT [facility] SHOAIB KRUSEI 0.000 23.000 - 32.271 ppm 07/05/2023 8:40 AM EDT [facility] SHOAIB KRUSEI Not Detected 23.000 - 32.271 ppm 07/05/2023 8:40 AM EDT [facility] SERRATIA MARCESCENS 0.000 23.000 - 31.204 ppm 07/05/2023 8:40 AM EDT [facility] SERRATIA MARCESCENS Not Detected 23.000 - 31.204 ppm 07/05/2023 8:40 AM EDT [facility] STREPTOCOCCUS PYOGENES (GROUP A STREP) 0.000 19.961 - 24.689 ppm 07/05/2023 8:40 AM EDT [facility] STREPTOCOCCUS PYOGENES (GROUP A STREP) Not Detected 19.961 - 24.689 ppm 07/05/2023 8:40 AM EDT [facility] STAPHYLOCOCCUS EPIDERMIDIS, HAEMOLYTICUS, LUGDUNENSIS, SAPROPHYTICUS (URINA 0.000 19.961 - 24.689 ppm 07/05/2023 8:40 AM EDT [facility] STAPHYLOCOCCUS EPIDERMIDIS, HAEMOLYTICUS, LUGDUNENSIS, SAPROPHYTICUS (URINA Not Detected 19.961 - 24.689 ppm 07/05/2023 8:40 AM EDT [facility] STAPHYLOCOCCUS EPIDERMIDIS, HAEMOLYTICUS, LUGDUNENSIS, SAPROPHYTICUS (URINA 29.769(A) 19.961 - 24.689 ppm 07/05/2023 8:40 AM EDT [facility] STAPHYLOCOCCUS EPIDERMIDIS, HAEMOLYTICUS, LUGDUNENSIS, SAPROPHYTICUS (URINA Detected(A) 19.961 - 24.689 ppm 07/05/2023 8:40 AM EDT [facility] ACT, TAMMY, GÓMEZ, ACC GROUPS 0.000 23.000 - 31.085 ppm 07/05/2023 8:40 AM EDT [facility] ACT, TAMMY, GÓMEZ, ACC GROUPS Not Detected 23.000 - 31.085 ppm 07/05/2023 8:40 AM EDT [facility] CTX-M1 (15), M2 (2), M9 (9), M8-25 GROUPS 0.000 23.000 - 32.546 ppm 07/05/2023 8:40 AM EDT [facility] CTX-M1 (15), M2 (2), M9 (9), M8-25 GROUPS Not Detected 23.000 - 32.546 ppm 07/05/2023 8:40 AM EDT [facility] DFR (A1, A5), SUL (1,2) 0.000 23.000 - 27.000 ppm 07/05/2023 8:40 AM EDT [facility] DFR (A1, A5), SUL (1,2) Not Detected 23.000 - 27.000 ppm 07/05/2023 8:40 AM EDT [facility] ERMB, C; MEFA 23.418(A) 23.000 - 27.611 ppm 07/05/2023 8:40 AM EDT [facility] ERMB, C; MEFA Detected(A) 23.000 - 27.611 ppm 07/05/2023 8:40 AM EDT [facility] IMP, NDM, VIM GROUPS 0.000 23.000 - 32.894 ppm 07/05/2023 8:40 AM EDT [facility] IMP, NDM, VIM GROUPS Not Detected 23.000 - 32.894 ppm 07/05/2023 8:40 AM EDT [facility] MECA 0.000 23.000 - 31.199 ppm 07/05/2023 8:40 AM EDT [facility] MECA Not Detected 23.000 - 31.199 ppm 07/05/2023 8:40 AM EDT [facility] OXA-48, 51 0.000 23.000 - 31.345 ppm 07/05/2023 8:40 AM EDT [facility] OXA-48, 51 Not Detected 23.000 - 31.345 ppm 07/05/2023 8:40 AM EDT [facility] QNR A1, A2, B2 0.000 23.000 - 30.726 ppm 07/05/2023 8:40 AM EDT [facility] QNR A1, A2, B2 Not Detected 23.000 - 30.726 ppm 07/05/2023 8:40 AM EDT [facility] SHV, KPC GROUPS 0.000 23.000 - 31.647 ppm 07/05/2023 8:40 AM EDT [facility] SHV, KPC GROUPS Not Detected 23.000 - 31.647 ppm 07/05/2023 8:40 AM EDT [facility] TET B, TET M 22.096(A) 23.000 - 27.778 ppm 07/05/2023 8:40 AM EDT [facility] TET B, TET M Detected(A) 23.000 - 27.778 ppm 07/05/2023 8:40 AM EDT [facility] Randi, VanB 0.000 23.000 - 32.027 ppm 07/05/2023 8:40 AM EDT [facility] Reynaldo Bryan Not Detected 23.000 - 32.027 ppm 07/05/2023 8:40 AM EDT [facility] Urine 07/04/2023 3:25 PM EDT 07/05/2023 1:50 AM EDT us Karla CASTILLO LAB BLOOD ORDERABLES Final Resul t [facility] [address] [place] [address] * (ABNORMAL) URETHRITIS/DISCHARGE PLUS VAGINITIS (HTRX) (07/04/2023 3:23 PM EDT) Pathologist [facility] ATOPOBIUM VAGINAE 18.814(A) 19.961 - 24.689 ppm 07/05/2023 9:32 AM EDT [facility] ATOPOBIUM VAGINAE Detected(A) 19.961 - 24.689 ppm 07/05/2023 9:32 AM EDT [facility] BVAB 2,3 (BACTERIAL VAGINOSIS ASSOCIATED BACTERIA 2, 3); MOBILUNCUS SPP 0.000 19.961 - 24.689 ppm 07/05/2023 9:32 AM EDT [facility] BVAB 2,3 (BACTERIAL VAGINOSIS ASSOCIATED BACTERIA 2, 3); MOBILUNCUS SPP Not Detected 19.961 - 24.689 ppm 07/05/2023 9:32 AM EDT [facility] SHOAIB ALBICANS, PARAPSILOSIS, TROPICALIS 0.000 23.000 - 30.770 ppm 07/05/2023 9:32 AM EDT [facility] SHOAIB ALBICANS, PARAPSILOSIS, TROPICALIS Not Detected 23.000 - 30.770 ppm 07/05/2023 9:32 AM EDT [facility] SHOAIB GLABRATA 0.000 23.000 - 32.138 ppm 07/05/2023 9:32 AM EDT [facility] SHOAIB GLABRATA Not Detected 23.000 - 32.138 ppm 07/05/2023 9:32 AM EDT [facility] SHOAIB KRUSEI 0.000 23.000 - 32.271 ppm 07/05/2023 9:32 AM EDT [facility] SHOAIB KRUSEI Not Detected 23.000 - 32.271 ppm 07/05/2023 9:32 AM EDT [facility] CHLAMYDIA TRACHOMATIS 0.000 23.000 - 31.467 ppm 07/05/2023 9:32 AM EDT [facility] CHLAMYDIA TRACHOMATIS Not Detected 23.000 - 31.467 ppm 07/05/2023 9:32 AM EDT [facility] GARDNERELLA VAGINALIS 18.569(A) 19.961 - 24.689 ppm 07/05/2023 9:32 AM EDT [facility] GARDNERELLA VAGINALIS Detected(A) 19.961 - 24.689 ppm 07/05/2023 9:32 AM EDT [facility] MEGASPHAERA (TYPES 1, 2) 0.000 19.961 - 24.689 ppm 07/05/2023 9:32 AM EDT [facility] MEGASPHAERA (TYPES 1, 2) Not Detected 19.961 - 24.689 ppm 07/05/2023 9:32 AM EDT [facility] NEISSERIA GONORRHOEAE 0.000 23.000 - 32.117 ppm 07/05/2023 9:32 AM EDT [facility] NEISSERIA GONORRHOEAE Not Detected 23.000 - 32.117 ppm 07/05/2023 9:32 AM EDT [facility] TRICHOMONAS VAGINALIS 0.000 23.000 - 32.119 ppm 07/05/2023 9:32 AM EDT [facility] TRICHOMONAS VAGINALIS Not Detected 23.000 - 32.119 ppm 07/05/2023 9:32 AM EDT [facility] MYCOPLASMA GENITALIUM 0.000 19.961 - 24.689 ppm 07/05/2023 9:32 AM EDT [facility] MYCOPLASMA GENITALIUM Not Detected 19.961 - 24.689 ppm 07/05/2023 9:32 AM EDT [facility] DFR (A1, A5), SUL (1,2) 0.000 23.000 - 27.000 ppm 07/05/2023 9:32 AM EDT [facility] DFR (A1, A5), SUL (1,2) Not Detected 23.000 - 27.000 ppm 07/05/2023 9:32 AM EDT [facility] ERMB, C; MEFA 17.525(A) 23.000 - 27.611 ppm 07/05/2023 9:32 AM EDT [facility] ERMB, C; MEFA Detected(A) 23.000 - 27.611 ppm 07/05/2023 9:32 AM EDT [facility] TET B, TET M 19.057(A) 23.000 - 27.778 ppm 07/05/2023 9:32 AM EDT [facility] TET B, TET M Detected(A) 23.000 - 27.778 ppm 07/05/2023 9:32 AM EDT [facility] Tissue 07/04/2023 3:23 PM EDT 07/05/2023 1:50 AM EDT us Karla CASTILLO LAB BLOOD ORDERABLES Final Resul t [facility] [address] [place] [address] * (ABNORMAL) URETHRITIS/DISCHARGE PLUS VAGINITIS (HTRX) (05/31/2023 4:59 PM EDT) ATOPOBIUM VAGINAE 0.000 19.961 - 24.689 ppm 06/01/2023 9:50 AM EDT [facility] ATOPOBIUM VAGINAE Not Detected 19.961 - 24.689 ppm 06/01/2023 9:50 AM EDT [facility] BVAB 2,3 (BACTERIAL VAGINOSIS ASSOCIATED BACTERIA 2, 3); MOBILUNCUS SPP 23.559(A) 19.961 - 24.689 ppm 06/01/2023 9:50 AM EDT [facility] BVAB 2,3 (BACTERIAL VAGINOSIS ASSOCIATED BACTERIA 2, 3); MOBILUNCUS SPP Detected(A) 19.961 - 24.689 ppm 06/01/2023 9:50 AM EDT [facility] SHOAIB ALBICANS, PARAPSILOSIS, TROPICALIS 0.000 23.000 - 30.770 ppm 06/01/2023 9:50 AM EDT [facility] SHOAIB ALBICANS, PARAPSILOSIS, TROPICALIS Not Detected 23.000 - 30.770 ppm 06/01/2023 9:50 AM EDT [facility] SHOAIB GLABRATA 0.000 23.000 - 32.138 ppm 06/01/2023 9:50 AM EDT [facility] SHOAIB GLABRATA Not Detected 23.000 - 32.138 ppm 06/01/2023 9:50 AM EDT [facility] SHOAIB KRUSEI 0.000 23.000 - 32.271 ppm 06/01/2023 9:50 AM EDT [facility] SHOAIB KRUSEI Not Detected 23.000 - 32.271 ppm 06/01/2023 9:50 AM EDT [facility] CHLAMYDIA TRACHOMATIS 0.000 23.000 - 31.467 ppm 06/01/2023 9:50 AM EDT [facility] CHLAMYDIA TRACHOMATIS Not Detected 23.000 - 31.467 ppm 06/01/2023 9:50 AM EDT [facility] GARDNERELLA VAGINALIS 0.000 19.961 - 24.689 ppm 06/01/2023 9:50 AM EDT [facility] GARDNERELLA VAGINALIS Not Detected 19.961 - 24.689 ppm 06/01/2023 9:50 AM EDT [facility] MEGASPHAERA (TYPES 1, 2) 0.000 19.961 - 24.689 ppm 06/01/2023 9:50 AM EDT [facility] MEGASPHAERA (TYPES 1, 2) Not Detected 19.961 - 24.689 ppm 06/01/2023 9:50 AM EDT [facility] NEISSERIA GONORRHOEAE 0.000 23.000 - 32.117 ppm 06/01/2023 9:50 AM EDT [facility] NEISSERIA GONORRHOEAE Not Detected 23.000 - 32.117 ppm 06/01/2023 9:50 AM EDT [facility] TRICHOMONAS VAGINALIS 0.000 23.000 - 32.119 ppm 06/01/2023 9:50 AM EDT [facility] TRICHOMONAS VAGINALIS Not Detected 23.000 - 32.119 ppm 06/01/2023 9:50 AM EDT [facility] MYCOPLASMA GENITALIUM 0.000 19.961 - 24.689 ppm 06/01/2023 9:50 AM EDT [facility] MYCOPLASMA GENITALIUM Not Detected 19.961 - 24.689 ppm 06/01/2023 9:50 AM EDT [facility] DFR (A1, A5), SUL (1,2) 0.000 23.000 - 27.000 ppm 06/01/2023 9:50 AM EDT [facility] DFR (A1, A5), SUL (1,2) Not Detected 23.000 - 27.000 ppm 06/01/2023 9:50 AM EDT [facility] ERMB, C; MEFA 0.000 23.000 - 27.611 ppm 06/01/2023 9:50 AM EDT [facility] ERMB, C; MEFA Not Detected 23.000 - 27.611 ppm 06/01/2023 9:50 AM EDT [facility] TET B, TET M 0.000 23.000 - 27.778 ppm 06/01/2023 9:50 AM EDT [facility] TET B, TET M Not Detected 23.000 - 27.778 ppm 06/01/2023 9:50 AM EDT [facility] Tissue 05/31/2023 4:59 PM EDT 06/01/2023 2:17 AM EDT us Ha Baker DO LAB BLOOD ORDERABLES Final Resul t [facility] [address] [place] [address] * (ABNORMAL) URETHRITIS/DISCHARGE PLUS VAGINITIS (HTRX) (01/26/2023 [...] 0.49 - 4.67 uIU/mL [facility] Comment:PERFORMED AT [facility] [address],[place] [address] 12/01/2022 1:14 PM EDT 12/01/2022 1:15 PM EDT us Ha Samuel DO LAB BLOOD ORDERABLES Final Resul t Performing Organization Address City/Va Hospital/ZIP Co de Phone Number [facility] * US OB 14+ weeks anatomy scan (08/24/2022 10:26 AM EDT) Anatomical Region Laterality Modality Body Ultrasound 08/24/2022 10:2 6 AM EDT Narrative 08/24/2022 10:25 AM EDT THIS EXAM WAS PERFORMED AT [facility] REPORT (Signed Final 08/24/2022 10:25) PATIENT INFO: ID #: [id number] : [birth year] (27 yrs)(F) Name: BRITTNEE CANNON Visit Date: 08/24/2022 09:23 YSASI PERFORMED BY: Attending: Thao Callahan MD, [facility] Performed By: Herminia Armenta RDMS Referred By: Ha Rodríguez. Address: [address] [place] [address] [place] [address] Location: [facility] [place] SERVICE(S) PROVIDED: Comprehensive Anatomic Survey 12777 INDICATIONS: Screening for anatomic survey Z36.89 Obesity [...] Appears normal Interventr. Septum: Appears Normal Cardiac Dundee: Normal Diaphragm: Appears normal 3 Vessel View: [...] obtained. BMI - 38. Thao Callahan MD, [facility] Electronically Signed Final Report 08/24/2022 10:25 IMPRESSION: 1. Single intrauterine , size consistent with assigned GARRETT. 2. No sonographic evidence of gross structural abnormality disclosed. 3. Amniotic fluid volume assessment (DVP) is normal. RECOMMENDATIONS: 1. Please see M consultation documentation from today's encounter. 2. Subsequent follow up or other follow up as clinically determined by primary OB provider unless otherwise specified by [facility]. 3. Results forwarded to ordering provider so they can follow up with the patient as necessary. Procedure Note Radiology, Radiologist, - 08/24/2022 [facility] (Signed Final 08/24/2022 10:25) PATIENT INFO: ID #: [id number] : [birth year] (27 yrs)(F) Name: BRITTNEE CANNON Visit Date: 08/24/2022 09:23 YSASI PERFORMED BY: Attending: Thao Callahan MD, [facility] Performed By: Herminia Armenta RDMS Referred By: Ha Baker DO Ref. Address: [address] [place] [address] [place] [address] Location: [facility] [place] SERVICE(S) PROVIDED: Comprehensive Anatomic Survey 19397 INDICATIONS: Screening for anatomic survey Z36.89 Obesity [...] Appears normal Interventr. Septum: Appears Normal Cardiac Dundee: Normal Diaphragm: Appears normal 3 Vessel View: [...] obtained. BMI - 38. Thao Callahan MD, [facility] Electronically Signed Final Report 08/24/2022 10:25 IMPRESSION: 1. Single intrauterine , size consistent with assigned GARRETT. 2. No sonographic evidence of gross structural abnormality disclosed. 3. Amniotic fluid volume assessment (DVP) is normal. RECOMMENDATIONS: 1. Please see [facility] consultation documentation from today's encounter. 2. Subsequent follow up or other follow up as clinically determined by primary OB provider unless otherwise specified by [facility]. 3. Results forwarded to ordering provider so they can follow up with the patient as necessary. us Ha PECK OB US PROCEDURES Final Resul t documented in this encounter Visit Diagnoses Not on filedocumented in this encounter
--- OUTSIDE RECORDS SUMMARY | 2024-09-19 10:05 | XMS_ITS | Data Portability ---
Author Organization [facility], MAIN OFFICE Address [address] [place] [phone] Assessment Encounter Date Assessment Date Assessment LastModified [...] eye drops 2016 017 INTERFACE [id number] [address], [address], 7 10:38:35 amoxicilli n 500 mg capsule 2016 017 INTERFACE [id number] [address], [address], 7 10:38:36 levocetiri zine 5 mg tablet 2016 017 INTERFACE [id number], [address], [address], 7 10:38:34 Patient Targets Encounter Date Encounter [...] and Address Organization Details Recorded Time Thyroiditis 48499719 Active 017 lucía Oscar sonu [facility] 7 10:23:46 Problem Notes None recorded. Medical Equipment None Reported. Allergies Allergen ID Allergen Name Allergen Category Reaction Reaction Severity Criticality Documentation Date Start Date Code Code System Note Provider Name and Address Organization Details Recorded Time 4160 Substance with sulfonami de structure and antibacte rial mechanism of action (substanc e) medicatio n Not available Not available Not available 06/27/2016 51299 8003 SNOMED lucía ascencio [facility] 7 10:23:11 4161 Pediazole medicatio n Not available Not available Not available 06/27/2016 05526 RxNorm lucía Oscar [facility] 7 10:23:27 Medications Name Sig [...] % 100 % 110/78 mm[Hg] lucía Oscar [facility] 10:22:38 Social History None recorded. Functional Status None recorded. Mental Status None recorded. Family History Relationship Description Onset Age of this Age Resolved Age Notes LastModified by Organization Details LastModified Time Father No current problems or disability [email or web address] Not available 02/2016 10:23:49 Mother No current problems or disability Not available 02/2016 10:23:49 Medical History Condition [...] Note 7737 Rangel Lopez PA-C MAIN OFFICE [address] [place] [phone] 06/27/2016 09:49:12 06/27/2016 14:42:44 Acute sinusitis 60152432 J01.90 Acute conjunctivitis 537 90704 H10.33 Cough 73521039 R05 Health Concerns Section Related Observation LastModified by Organization Detai ls LastModified Time None Recorded Concern Status LastModified by Organization Details LastModified Time None Recorded Advance Directives Directive None Recorded Payers Insurance Date Sequence Insurance Name Policy Number Policy Malagon Covered Member ID Malagon Member ID Guarantor Name 07/25/2023 1 [facility] Raya Mathur [id number] Munir Mathur Notes Date Note Type Note Provider Name and Address Organization Details Recorded Time 7 text/html sx x 1 daypt c/o sher eye irritationitchingmucus d/cno dec. in visionsinus congestioncoughingLT ear achesore throatheadachesPNDno N/V/Dno sobnot utd on flu shotnot hx of pnano otc meds. tried.Hx of environmental allergies.non smokerno Hx of lung dz. Rangel mercedes PA-C [address] [place] [address], [phone], [facility] 06/27/2016 11:02:55 OBGyn Episode No OBEpisode recorded.
--- OUTSIDE RECORDS SUMMARY | 2024-09-19 10:05 | XMS_ITS | Encounter Summary ---
Author Organization [facility] Address [address] [place] [address] Care Team Providers Care Wood Web Weaving Machine Operator Name Role Phone Unavailable Primary Care Provider Unavailabl e Encounter Details Date Type Department Care Team (Late Contact Info) Description 09/06/2022 Abstract [facility] [address] [place] [address] Ha Baker, DO [address] Karina Aguir[place], [id number] Social History Tobacco Use Types Packs/Day Years [...] Office Visit [facility] [address] [place] [phone] Allen Carr MD [address] [place] [address] 10/08/2024 1:50 PM EDT Routine [facility] OB [address] [facility] [address] [address] Ha Baker, [address] [place] [address] documented as of this encounter Visit Diagnoses Not on filedocumented in this encounter
--- OUTSIDE RECORDS SUMMARY | 2024-09-19 10:05 | XMS_ITS | Encounter Summary ---
Author Organization [facility] Address [address] [place] [address] Care Team Providers Care Hand Spinner Name Role Phone Unavailable Primary Care Provider Unavailabl e Encounter Details Date Type Department Care Team (Late st Contact Info) Description 08/17/2022 Abstract [facility] [address] [place] [id number] Ha Baker, DO [address] Karina Aguirre, [place] [id number] Social History Tobacco Use Types Packs/Day Years [...] Office Visit [facility] [address] [place] [address] Allen Carr MD [address] [place] [address] 10/08/2024 1:50 PM EDT Routine [facility] OB [address] [facility] [place] [address] Ha Baker DO [address] [place] [address] [place] [address] documented as of this encounter Visit Diagnoses Not on filedocumented in this encounter
--- OUTSIDE RECORDS SUMMARY | 2024-09-19 10:05 | XMS_ITS | Encounter Summary ---
Author Organization [facility] Address [address] [place] [address] Care Team Providers Care Business Rules Developer Name Role Phone Unavailable Primary Care Provider Unavailabl e Encounter Details Date Type Department Care Team (Late Contact Info) Description 09/22/2022 Abstract [facility] OB [address] [facility] [place] [address] Karla Matthews PA [address] [place], [facility]11 Social History Tobacco Use Types Packs/Day Years [...] Office Visit [facility] [address] [place] [phone] Allen Carr MD [address] [place] [address] 10/08/2024 1:50 PM EDT Routine [facility] OB [address] [facility] [place] [address] Ha Baker, [address] [place] [address] documented as of this encounter Visit Diagnoses Not on filedocumented in this encounter
--- OUTSIDE RECORDS SUMMARY | 2024-09-19 10:05 | XMS_ITS | Encounter Summary ---
Author Organization [facility] Address [address] [place] [address] Care Team Providers Care Machine Tack Puller Name Role Phone Unavailable Primary Care Provider Unavailabl e Encounter Details Date Type Department Care Team (Late Contact Info) Description 09/06/2022 Abstract [facility] [address] [place] [address] Ha Baker, DO [address] Karina [place], [facility]11 Social History Tobacco Use Types Packs/Day Years [...] Office Visit [facility] [address] [place] [address] Allen Carr MD [address] [place] [address] 10/08/2024 1:50 PM EDT Routine [facility] [address] [facility] [place] [address] Ha Baker, [address] [place] [address] documented as of this encounter Visit Diagnoses Not on filedocumented in this encounter
--- OUTSIDE RECORDS SUMMARY | 2024-09-19 10:06 | XMS_ITS | Encounter Summary ---
Author Organization [facility] Address [address] [place] [address] Care Team Providers Care Weather Clerk Name Role Phone Unavailable Primary Care Provider Unavailabl e Encounter Details Date Type Department Care Team (Late Contact Info) Description 07/29/2022 Orders Only [facility] [address] [place] [address] Provider, MD Mihri [address] [place] [address] Social History Tobacco Use Types Packs/Day [...] Visit [facility] [address] [place] [address] Allen Carr MD [address] [place] [address] 10/08/2024 1:50 PM EDT Routine [facility] [address] [place] [address] Ha Baker, DO [address] [facility] [address] documented as of this encounter Procedures Procedure [...]
--- OUTSIDE RECORDS SUMMARY | 2024-09-19 10:06 | XMS_ITS | Encounter Summary ---
Author Organization [facility] Address [address] [place] [address] Care Team Providers Care Care Team Assistant Name Role Phone Unavailable Primary Care Provider Unavailabl e Encounter Details Date Type Department Care Team (Late st Contact Info) Description 09/10/2024 Telephone [facility] [address] [place] [address] Marcie Flannery LPN [address] [employer] [place] [address] Social History Tobacco Use Types [...] Telephone Encounter - Marcie Flannery LPN - 09/10/2024 12:59 PM EDT Pt needed order for early one hour glucose test documented in this encounter Plan of Treatment Upcoming Encounters Date Type Department Care Team (Late st Contact Info) Description 10/04/2024 10:40 AM EDT Office Visit [facility] [address] [place] [address] Allen Carr MD [address] [place] [address] 10/08/2024 1:50 PM EDT Routine [facility] [address] [facility] [address] Ha Baker, DO [address] [facility] [place] [address] Scheduled Orders Name Type Priority Associated Diagnoses Orde r Schedule CBC Lab Routine Diabetes mellitus screening Expected: 09/10/2024 (Approximate), Expires: 09/10/2025 Glucose tolerance, 1 hour Lab Routine Diabetes mellitus screening Expected: 09/10/2024 (Approximate), Expires: 09/10/2025 documented as of this encounter Visit Diagnoses Diagnosis Diabetes mellitus screening Screening for diabetes mellitus documented in this encounter
--- OUTSIDE RECORDS SUMMARY | 2024-09-19 10:06 | XMS_ITS | Patient Health Record ---
Author Organization [facility] Address [address] [place] [address] Care Team Providers Care Transmission Mechanic Name Role Phone emmy schultz Unavailable [phone] Allergies Allergen (clinical drug ingredient) Drug/Non Drug [...] Status W/U Status Risk Notes Problem Obesity (372140761) Obesity (BMI 35.0-39.9 without comorbidity) (E66.9) Active confirmed Plan Of Treatment Pending Test Test Name Order Date X ray : Spines, lumbosacral 08/14/2018 URINE RAPID TEST 08/14/2018 CMP Comprehensive Metabolic Panel w/ eGF R (64067) [facility] 08/14/2018 Lipid Panel w/ Reflex to Direct LDL (148 52) [facility] 08/14/2018 Vitamin D, 25-Hydroxy, Total, Immunoassa y (69456) - [facility] 08/14/2018 HEMOGLOBIN A1c (496) [facility] 08/14/2018 UA Urinalysis Complete (4171) [facility] 07/28 CBC (includes Differential and Platelets ) (6204) [facility] 08/14/2018 TSH and FREE T4 (87724) [facility] 08/14/2018 Insurance Providers Payer Name Payer Address Payer Phone Subscriber Number Group Number Insured Name Patient Relationship to Insured Coverage Start Date Coverage End Date BCBS [facility] PPO/POS/ HMO [employer] [address] [place] [address] [phone] [id number] Raya Mathur Self - patient is the insured Medical (General) History Medical History History ICD Code high blood pressure THYROID DISORDER Surgical History Surgery Date(Month/Year) right hand surgery 10/11 Hospitalization History Reason Date(Month/Year) broken hand 09/10 induced 05/17/18
--- OUTSIDE RECORDS SUMMARY | 2024-09-19 10:06 | XMS_ITS | Encounter Summary ---
Author Organization [facility] Address [address] [place] [address] Care Team Providers Care Medical Instrument Technician Name Role Phone Unavailable Primary Care Provider Unavailabl e Encounter Details Date Type Department Care Team (Late st Contact Info) Description 09/13/[address] [facility] [address] [place] [address] Ha Baker, DO [address] Karina Aguirre, [facility]11 Social History Tobacco Use Types [...] Office Visit [facility] [address] [place] [address] Allen Carr MD [address] [place] [address] 10/08/2024 1:50 PM EDT Routine [facility] [address] [facility] [place] [address] Ha Baker, [address] [place] [address] documented as of this encounter Visit Diagnoses Not on filedocumented in this encounter
--- OUTSIDE RECORDS SUMMARY | 2024-09-19 10:06 | XMS_ITS | Encounter Summary ---
Author Organization [facility] Address [address] [place] [address] Care Team Providers Care Xerox Machine Mechanic Name Role Phone Unavailable Primary Care Provider Unavailabl e Encounter Details Date Type Department Care Team (Late Contact Info) Description 02/01/2023 Clinisync Result Encounter [facility] External Department Unsolicited Ivy Baker, DO [address] [facility] [place] [address] Social History Tobacco Use Types Packs/Day Years [...] Visit [facility] [address] [place] [address] Allen Carr MD [address] [place] [address] 10/08/2024 1:50 PM EDT Routine [facility] [address] [facility] [place] [address] Ivy Baker, DO [address] [facility] [place] [address] documented as of this encounter Procedures Procedure Name Priority Date/Time Associated Diagnosis Comments US PELVIS TRANSVAGINAL 02/01/2023 10:00 AM EST documented in this encounter Results * US PELVIS TRANSVAGINAL (02/01/2023 10:00 AM EST) Anatomical Region Laterality Modality Other 02/01/2023 10:0 0 AM EST Narrative 02/01/2023 10:03 AM EST The [address] [address] Ultrasound Report Signed Patient: BRITTNEE SMITH MR#: [id number] : 1995 Acct:[id number] Age/Sex: 27 / F ADM Date: 02/01/23 Loc: US Attending Dr: Ivy Baker D.O. Ordering Physician: Ivy Baker D.O. Date of Service: 02/01/23 Procedure(s): US pelvis transvaginal Accession Number(s): [id number] cc: Ivy Baker D.O.; Physician,Non-Staff M.D. The [address] [address] Patient Name: BRITTNEE SMITH MRN: [id number] date: 1995 Sex: F Assigned Patient Location: US Current Patient Location: US Accession/Order Number: [id number] Exam Date: 02/01/2023 09:11 Report Date: 02/01/2023 [...] Signed By: 02/01/23 1003 DD/ 1000 TD/TT: Survey Workers Supervisor: Procedure Note Radiology, Radiologist, MD - 02/01/2023 [place] [address] Ultrasound Report Signed Patient: BRITTNEE SMITH [facility]#: [id number] : 1995Acct:[id number] Age/Sex: 27 / FADM Date: 02/01/23 Loc: US Attending Dr: Ivy Baker D.O. Ordering Physician: Ivy Baker D.O. Date of Service: 02/01/23 Procedure(s): US pelvis transvaginal Accession Number(s): [id number] cc: Ivy Baker D.O.; Physician,Non-Staff Mirela The [place] [id number] Patient Name: BRITTNEE SMITH MRN: [id number] date: 1995 Sex: F Assigned Patient Location: US Current Patient Location: US Accession/Order Number: [id number] Exam Date: 02/01/2023 09:11 Report Date: 02/01/2023 [...] M.D. Signed By:02/01/23 1003 DD/ 1000 TD/TT: Survey Workers Supervisor: us Ivy Baker DO [facility] Final Result documented in this encounter Visit Diagnoses Not on filedocumented in this encounter
--- OUTSIDE RECORDS SUMMARY | 2024-09-19 10:06 | XMS_ITS | Clinical Summary ---
Author Organization [facility] tem Address [id number] [address] [place] [address] Care Team Providers Care Local Coordinator Name Role Phone No Pcp, No Pcp [...] 09/02/2024 2:02 AM EDT Emergency [facility] - Emergency [address] [place] [address] Valerie Shen MD Constipation, unspecified constipation type [...] A) Negative, Indeterminate 09/02/2024 1:40 AM EDT [facility] Urine 09/02/2024 1:46 AM EDT 09/02/2024 1:40 AM EDT us Valerie Shen MD POINT OF CARE TEST ORDERABLES Fi nal Result [facility] [address] [place] [address], * (ABNORMAL) POCT Nursing Urine Macroscopic UA (09/02/2024 1:45 AM EDT) POC Urine Specific [place] >=1.030(A) 1.010, 1.015, 1.020, 1.025 09/02/2024 1:38 AM EDT [facility] POC Urine Leukocyte Esterase Negative Negative 09/02/2024 1:38 AM EDT [facility] POC Urine Nitrite Negative Negative 09/02/2024 1:38 AM EDT [facility] POC Urine pH 6.0 5.0, 6.0, 6.5, 7.0, 7.5, 8.0, 8.5, 5.5 09/02/2024 1:38 AM EDT [facility] POC Urine Protein Negative Negative 09/02/2024 1:38 AM EDT [facility]OC Urine Glucose Negative Negative 09/02/2024 1:38 AM EDT [facility] Urine Ketones Negative Negative 09/02/2024 1:38 AM EDT [facility] Urine Urobilinogen 0.2 E.U./dL 09/02/2024 1:38 AM EDT [facility] Urine Bilirubin Negative Negative 09/02/2024 1:38 AM EDT [facility] POC Urine Blood/HGB Trace(A) Negative 09/02/2024 1:38 AM EDT [facility] Urine 09/02/2024 1:45 AM EDT 09/02/2024 1:38 AM EDT us Valerie Shen MD POINT OF CARE TEST ORDERABLES Fi nal Result [facility] [address] [place] [address], from Last 3 Months Insurance [place] [employer] Care Teams Local Coordinator Relationship Specialty Start Date End Date No Pcp, [place] [phone] PCP - General Family Medicine 04/28/22
--- OUTSIDE RECORDS SUMMARY | 2024-09-19 10:06 | XMS_ITS | Patient Health Record ---
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, 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 Problem Acute streptococcal pharyngitis (5935602209) Acute streptococcal pharyngitis (J02.0) Active confirmed Comment:rap id strep positive 10 days abx F/U 2 weeks EMPHASIZED THE NEED TO COMPLETE ALL 10 DAYS,Descri ption:Strep tococcal sore throat Problem Asthma (022416480) Asthma (J45.909) 000 Active confirmed Problem Health supervision of healthy or child receiving care (V20.1) (V20.1) Active confirmed Problem Allergic rhinitis (82254745) Allergic rhinitis (J30.9) 000 Active confirmed Problem History and physical examination, administrative (43800771) General medical examination for administrative purposes (V70.3) (V70.3) 006 Active confirmed Problem Dermatitis, atopic (691.) (691) 006 Active confirmed Problem Acute pharyngitis (371822027) Acute pharyngitis (J02.9) 010 Active confirmed Problem Acute bronchitis (disorder) (03637884) Bronchitis, acute (466.0) (466.0) Active confirmed Problem Well child visit (526967046) Routine or child health check (V20.2) (V20.2) 008 Active confirmed Problem Acute sinusitis (93002363) Acute infection of nasal sinus (J01.90) Problem resolved confirmed Comment:adv ised to take her zyrtec 10mg po daily- states that she has zyrtec at home,Descri ption:Acute sinusitis Plan Of Treatment No Information Insurance Providers Payer Name Payer Address Payer Phone Subscriber Number Group Number Insured Name Patient Relationship to Insured Coverage Start Date Coverage End Date [facility] [address] [address] [place] [phone] [id number] Raya Mathur Self - patient is the insured 3 Medicaid CF after [employer] [address] [place] [address] [id number] Raya Mathur Self - patient is the insured 3 Medical (General) History Medical History History ICD Code 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
--- OUTSIDE RECORDS SUMMARY | 2024-09-19 10:06 | XMS_ITS | Encounter Summary ---
Author Organization [facility] Address [address] [place] [address] Care Team Providers Care Grounds Maintenance Supervisor Name Role Phone Unavailable Primary Care Provider Unavailabl e Encounter Details Date Type Department Care Team (Late st Contact Info) Description 09/06/2024 Clinisync Result Encounter [facility] External Department Unsolicited Ha Baker, DO [address] [facility] [place] [address] Social History Tobacco Use Types Packs/Day Years [...] Visit [facility] [address] [place] [address] Allen Carr MD [address] [place] [address] 10/08/2024 1:50 PM EDT Routine [facility] [address] [facility] [address] Ha Baker, DO [address] [facility] [place] [address] documented as of this encounter Procedures Procedure Name Priority Date/Time Associated Diagnosis Comments BOX TEST Routine 09/06/2024 1:00 PM EDT HBSAG SCREEN Routine 09/06/2024 1:00 PM EDT RAPID PLASMA REAGIN, QUANT Routine 09/06/2024 1:00 PM EDT HIV AB/P24 AG WITH REFLEX Routine 09/06/2024 1:00 PM EDT HCV ANTIBODY RFX TO QUANT PCR Routine 09/06/2024 1:00 PM EDT MLR HEMOGLOBIN A1C Routine 09/06/2024 1: 00 PM EDT ALL TYPE AND SCREEN Routine 09/06/2024 1 :00 PM EDT ALL RUBELLA IGG AB Routine 09/06/2024 1: 00 PM EDT ALL CBC WITH AUTO DIFF Routine 09/06/2024 1:00 PM EDT [facility] DRUG SCREEN RAPID (URINE) Routine 09/06/2024 12:50 PM EDT documented in this encounter Results * HBSAG SCREEN (09/06/2024 1:00 PM EDT) HBSAG SCREEN Negative Negative [facility] Comment: Performed at: - [facility] [id number] Guard Manager: Atul Duvall PhD, Phone: [phone] 09/06/2024 1:00 PM EDT 09/06/2024 1:15 PM EDT Narrative [facility] - 09/07/2024 1:09 PM EDT Ha Samuel DO LAB BLOOD ORDERABLES Final Resul t Performing Organization Address [facility] Co de Phone Number [facility] * RAPID PLASMA REAGIN, QUANT (09/06/2024 1:00 PM EDT) RAPID PLASMA REAGIN, QUANT Non Reactive NonRea<1: 1 titer [facility] Comment: Please Note: This test does not meet current guidelines for screening and diagnosis of syphilis. This test is intended for following treatment response in patients being treated for syphilis infection. To screen for syphilis infection, a reflex cascade that includes both RPR and a treponema-specific assay should be utilized, such as Treponema pallidum (Syphilis) Screening [place] (598990) or Rapid Plasma Reagin (RPR) Test With Reflex to Quantitative RPR and Confirmatory Treponema pallidum Antibodies (680740). Performed at: [facility] [id number] Guard Manager: Atul Duvall PhD, Phone: [phone] 09/06/2024 1:00 PM EDT 09/06/2024 1:15 PM EDT Narrative [facility] - 09/07/2024 1:09 PM EDT [facility] LAB BLOOD ORDERABLES Final Resul t Performing Organization Address [facility] Co de Phone Number [facility] * HCV ANTIBODY RFX TO QUANT PCR (09/06/2024 1:00 PM EDT) Pathologist [facility] HCV AB Non Reactive Non Reactive [facility] INTERPRETATION: Comment . [facility] Comment: Not infected with HCV unless early or acute infection is suspected (which may be delayed in an immunocompromised individual), or other evidence exists to indicate HCV infection. Performed at: [facility] [id number] Guard Manager: Atul Duvall PhD, Phone: [phone] 09/06/2024 1:00 PM EDT 09/06/2024 1:15 PM EDT Narrative [facility] - 09/07/2024 8:16 AM EDT us Ha Samuel DO LAB BLOOD ORDERABLES Final Resul t Performing Organization Address [facility] Co de Phone Number [facility] * ALL RUBELLA IGG AB (09/06/2024 1:00 PM EDT) Pathologist [facility] RUBELLA ANTIBODIES, IGG 1.22 Immune >0.99 index [facility] Comment: Non-immune <0.90 Equivocal 0.90 - 0.99 Immune >0.99 Performed at: [address] [id number] Guard Manager: Atul Duvall PhD, Phone: [phone] 09/06/2024 1:00 PM EDT 09/06/2024 1:15 PM EDT Narrative [facility] - 09/07/2024 8:16 AM EDT us Ha Samuel DO [facility] Final Result Performing Organization Address [facility] Phone Number [facility] * HIV AB/P24 AG WITH REFLEX (09/06/2024 1:00 PM EDT) Pathologist [facility] HIV AB/P24 AG SCREEN Non Reactive Non Reactive [facility] Comment: HIV-1/HIV-2 antibodies and HIV-1 p24 antigen were NOT detected. There is no laboratory evidence of HIV infection. HIV Negative Performed at: [address] [id number] Guard Manager: Atul Duvall PhD, Phone: [phone] 09/06/2024 1:00 PM EDT 09/06/2024 1:15 PM EDT Narrative [facility] - 09/07/2024 5:11 AM EDT us Ha Samuel DO LAB BLOOD ORDERABLES Final Resul t Performing Organization Address [facility] Co de Phone Number [facility] * ALL TYPE AND SCREEN (09/06/2024 1:00 PM EDT) Pathologist [facility] BLOOD TYPE O Positive TB ANTIBODY SCREEN NEGATIVE [facility] 09/06/2024 1:00 PM EDT 09/06/2024 1:15 PM EDT Narrative [facility] - 09/06/2024 4:54 PM EDT [facility] , Ha Samuel DO [facility] Final Result [facility] * MLR HEMOGLOBIN A1C (09/06/2024 1:00 PM EDT) Pathologist [facility] GLYCOHEMOGLOBIN A1C 5.8 4.5 - 6.2 % [facility] Comment: ADA RECOMMENDED LIMIT 4.0 - 6.0 ADA THERAPEUTIC TARGET < 7.0 ACTION SUGGESTED > 7.0 ESTIMATED AVERAGE GLUCOSE 120 mg/dL [facility] 09/06/2024 1:00 PM EDT 09/06/2024 1:15 PM EDT Narrative [facility] - 09/06/2024 3:34 PM EDT Ha Baker DO [facility] Final Result Performing Organization Address [facility]/ZIP Co de Phone Number [facility] * BOX TEST (09/06/2024 1:00 PM EDT) Pathologist [facility] BOX TEST SENT OUT [facility] [address] [facility] [address] 09/06/2024 [facility] 09/06/2024 1:00 PM EDT 09/06/2024 1:15 PM EDT Narrative [facility] - 09/06/2024 2:05 PM EDT Ha Baker DO LAB BLOOD ORDERABLES Final Resul t Performing Organization Address City/[facility]/ZIP Co de Phone Number [facility] * (ABNORMAL) ALL CBC WITH AUTO DIFF (09/06/2024 1:00 PM EDT) Pathologist [facility] WBC 11.5(H) 4.0 - 11.0 10 3/uL [facility] RBC 4.38 4.20 - 5.40 10 6/uL [facility] HGB 12.6 12.0 - 16.0 g/dL [facility] HCT 36.8 36.0 - 48.0 % [facility] MCV 84.0 81.0 - 99.0 fL [facility] MCH 28.8 26.7 - 34.0 pg [facility] MCHC 34.2 29.9 - 35.2 g/dL [facility] RDW 12.6 11.0 - 15.0 % [facility] PLT 239 150 - 450 10 3/uL [facility] MPV 10.9 9.5 - 13.5 fL [facility] NEUTROPHILS PERCENT AUTO 63.9 43.0 - 75.0 % [facility] LYMPHOCYTES PERCENT AUTO 28.5 20.5 - 60.0 % [facility] MONOCYTES PERCENT AUTO 5.5 1.7 - 12.0 % [facility] EO % 1.2 0.9 - 7.0 % [facility] BASOPHILS PERCENT AUTO 0.5 0.2 - 2.0 % [facility] IMMATURE GRANULOCYTES PCT AUTO 0.4 0.0 - 0.5 % [facility] NEUTROPHILS ABSOLUTE AUTO 7.4(H) 1.4 - 6.5 10 3/uL [facility] LYMPHOCYTES ABSOLUTE AUTO 3.3 1.2 - 3.8 10 3/uL [facility] MONOCYTES ABSOLUTE AUTO 0.6 0.3 - 0.8 10 3/uL [facility]H EO # 0.1 0.0 - 0.7 10 3/uL [facility] BASOPHILS ABSOLUTE AUTO 0.1 0.0 - 0.1 10 3/uL [facility] IMMATURE GRANULOCYTES ABS AUTO 0.05(H) 0.00 - 0.03 10 3/uL [facility] 09/06/2024 1:00 PM EDT 09/06/2024 1:15 PM EDT Narrative [facility] - 09/06/2024 2:00 PM EDT us Ha Samuel DO [facility] Final Result [facility] * TB DRUG SCREEN RAPID (URINE) (09/06/2024 12:50 PM EDT) CANNABINOID SCREEN URINE NEGATIVE NEGATIVE [facility] PHENCYCLIDINE SCREEN URINE NEGATIVE NEGATIVE [facility] COCAINE SCREEN URINE NEGATIVE NEGATIVE [facility] METHAMPHETAMINES SCREEN URINE NEGATIVE NEGATIVE [facility] OPIATE SCREEN URINE NEGATIVE NEGATIVE [facility] AMPHETAMINE SCREEN URINE NEGATIVE NEGATIVE [facility]H BENZODIAZEPINES SCREEN URINE NEGATIVE NEGATIVE [facility] TRICYCLIC ANTIDEPRESSANT URINE NEGATIVE NEGATIVE [facility] METHADONE SCREEN URINE NEGATIVE NEGATIVE [facility] BARBITURATES SCREEN URINE NEGATIVE NEGATIVE [facility] OXYCODONE SCREEN URINE NEGATIVE NEGATIVE [facility] BUPRENORPHINE SCREEN URINE NEGATIVE NEGATIVE [facility] Comment: DRUG CLASS TEST SYSTEM CUT-OFF CONCENTRATIONS ARE FOLLOWS: AMP (Amphetamine): 500 ng/mL BAR (Barbiturates): 200 ng/mL BZO (Benzodiazepines): 150 ng/mL BUP (Buprenorphine): 10 ng/mL ABRIL (Cocaine): 150 ng/mL mAMP (Methamphetamine): 500 ng/mL MTD (Methadone): 200 ng/mL OPI (Opiates): 100 ng/mL OXY (Oxycodone): 100 ng/mL PCP (Phencyclidine): 25 ng/mL THC (Cannabinoids): 50 ng/mL TCA (Trycyclic Antidepressants): 300 ng/mL 09/06/2024 12:5 0 PM EDT 09/06/2024 1:16 PM EDT Narrative [facility] - 09/06/2024 2:25 PM EDT us Ha Baker DO [facility] Final Result Performing Organization Address City/State/[facility] Co de Phone Number [facility] documented in this encounter Visit Diagnoses Not on filedocumented in this encounter
--- OUTSIDE RECORDS SUMMARY | 2024-09-19 10:06 | XMS_ITS | Encounter Summary ---
Author Organization [facility] Address [address] [facility] [place] [address] Care Team Providers Care Professional Security Officer Name Role Phone Unavailable Primary Care Provider Unavailabl e Encounter Details Date Type Department Care Team ([facility] Contact Info) Description 09/10/2024 Results Follow-Up [facility] [address] [address] Marcie Flannery LPN [address] [place] [id number] Social History Tobacco Use Types Packs/Day Years [...] as of this encounter Miscellaneous Notes * Result Encounter Note - Marcie Flannery LPN - 09/10/2024 1:02 PM EDT Pt called back and we will do the 1 hour glucose. Order sent to [facility] * Result Encounter Note - Marcie Flannery LPN - 09/10/2024 10:42 AM EDT Attempted to call but she did not answer. Left detailed voicemail for pt to [facility] office back documented in this encounter Plan of Treatment Upcoming Encounters Date Type Department Care Team (Late st Contact Info) Description 10/04/2024 10:40 AM EDT Office Visit [facility] [address] [place] [address] Allen Carr MD [address] [place] [address] 10/08/2024 1:50 PM EDT Routine [facility] [address] [facility] [address] Ha Baker, DO [address] [place], [place] [phone] documented as of this encounter Visit Diagnoses Not on filedocumented in this encounter
--- OUTSIDE RECORDS SUMMARY | 2024-09-19 10:06 | XMS_ITS | Encounter Summary ---
Author Organization [facility] Address [address] [place] [address] Care Team Providers Care Carton Repairer Name Role Phone Unavailable Primary Care Provider Unavailabl e Encounter Details Date Type Department Care Team (Late Contact Info) Description 10/25/2022 Abstract [facility] [address] [place] [address] Carolina Stone LPN [address] [place] [id number] Social History Tobacco Use Types Packs/Day Years [...] Office Visit [facility] [address] [place] [phone] Allen Carr MD [address] [place] [address] 10/08/2024 1:50 PM EDT Routine [facility] [address] [facility] [address] Ha Baker, [address] [place] [address] documented as of this encounter Visit Diagnoses Not on filedocumented in this encounter
--- OUTSIDE RECORDS SUMMARY | 2024-09-19 10:06 | XMS_ITS | Encounter Summary ---
Author Organization [facility] Address [address] [place] [address] Care Team Providers Care Cargo Mate Name Role Phone Unavailable Primary Care Provider Unavailabl e Encounter Details Date Type Department Care Team (Late st Contact Info) Description 09/11/[address] [facility] [address] [place] [phone] Ha Baker, DO [address] [place], [facility] Social History Tobacco Use Types Packs/Day [...] Visit [facility] [address] [place] [address] Allen Carr MD [address] [place] [address] 10/08/2024 1:50 PM EDT Routine [facility] [address] [facility] [place] [address] Ha Baker, [address] [place] [address] documented as of this encounter Visit Diagnoses Not on filedocumented in this encounter
--- OUTSIDE RECORDS SUMMARY | 2024-09-19 10:06 | XMS_ITS | Encounter Summary ---
Author Organization [facility] Address [address] [place] [address] Care Team Providers Care Mobility Manager Name Role Phone Unavailable Primary Care Provider Unavailabl e Encounter Details Date Type Department Care Team (Late Contact Info) Description 08/05/2022 Orders Only [facility] [address] [facility] [address] Calista Khan LPN Social History Tobacco [...] [facility] [address] [place] [address] Allen Carr MD [address] [place] [address] 10/08/2024 1:50 PM EDT Routine [facility] [address] [facility] [place] [address] Ha Baker, [address] [place] [address] documented as of this encounter Visit Diagnoses Not on filedocumented in this encounter
--- OUTSIDE RECORDS SUMMARY | 2024-09-19 10:06 | XMS_ITS | Clinical Summary ---
Author Organization [facility] Address [address] [place] [address] Care Team Providers Care Survey Compiler Name Role Phone Unavailable Primary Care Provider [...] Vitamins) 28-0.8 MG tabletIndications: Positive urine test ([facility]) Take 1 tablet by mouth Daily 30 [...] with treatment 07/26/2022 Obesity affecting , antepartum ([facility] ) 11/13/2018 ([facility]) 11/28/2017 Hyperthyroidism 11/28/2017 Obesity (BMI 35.0-39.9 without comorbidity) 10/29 Thyroiditis 06/27/2016 Acute pharyngitis 09/10/2009 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 Encounter for childhood immunizations appropriat e for age 0708/30/2007 Dermatitis, atopic 08/04/2005 Allergic rhinitis 02/18/2000 Asthma 02/18/2000 Hypothyroid 1993 Estimated Date of Delivery Comme nts Yes 04/11/2025 Based on Ultraso und Resolved Problems Problem Noted Date Diagnosed Date Resolved Date -induced hypertension ([facility]) 04/29/2018 11/04/2022 Anemia of ([facility]) 04/24/2018 11/04/2022 Encounters Date Type Department Care Team Description 09/13/2024 Abstract [facility] [address] [place] [address] Ha Baker, 09/11/2024 Abstract [facility] [address] [place] [address] Ha Baker, 09/10/2024 Telephone [facility] [address] [place] [address] Marcie Flannery LPN 09/10/2024 Results Follow-Up [facility] [address] [place] [address] Marcie Flannery LPN 09/06/2024 Clinisync Result Encounter [facility] External Department Unsolicited Ha Baker, DO 09/05/2024 1:30 PM EDT Initial [facility] OB [address] [place] [address] [place] [address] GA: 8w6d 09/05/2024 1:00 PM EDT Ancillary Procedure [facility] [address] [place] [address] Missed menses; Positive urine test ([facility]) 08/26/20[address] [address] [place] [address] Ha Baker, DO 08/21/2024 Clinisync Result Encounter [facility] External Department Unsolicited Ha Baker, DO 08/19/2024 Clinisync Result Encounter [facility] External Department Unsolicited Ha Baker, DO 08/15/2024 Telephone [facility] [address] [place] [address] Marcie Flannery LPN 08/09/2024 11:10 AM EDT Office Visit [facility] [address] [place] [address] Allen Carr MD Alfredo's disease (Primary Dx); Vitamin D deficiency; Encounter for dietary consultation; Class 3 severe obesity due to excess calories without serious comorbidity with body mass index (BMI) of 40.0 to 44.9 in adult ([facility]); Thyroid disease during , first trimester ([facility]); Hypothyroidism, unspecified type 08/09/2024 Bamboo flowsheet [facility] [address] [place] [address] Allen Carr MD from Last 3 Months [...] kg (228 lb 6.4 oz) 09/05/2024 2:05 P M EDT Height 162.6 cm (5' 4 ) 08/09/2024 11:20 AM EDT Body Mass Index 39.2 08/09/2024 11:20 AM EDT Plan of Treatment Upcoming Encounters Date Type Department Care Team (Late st Contact Info) Description 10/04/2024 10:40 AM EDT Office Visit [facility] [address] [place] [address] Allen Carr MD [address] [place] [address] 10/08/2024 1:50 PM EDT Routine [facility] [address] [facility] [address] Ha Baker, DO [address] [facility] [address] [place], [place] [id number] Procedures Procedure Name Priority Date/Time Associated Diagnosis Comments HBSAG SCREEN Routine 09/06/2024 1:00 PM EDT RAPID PLASMA REAGIN, QUANT Routine 09/06/2024 1:00 PM EDT HCV ANTIBODY RFX TO QUANT PCR Routine 09/06/2024 1:00 PM EDT ALL RUBELLA IGG AB Routine 09/06/2024 1: 00 PM EDT HIV AB/P24 AG WITH REFLEX Routine 09/06/2024 1:00 PM EDT ALL TYPE AND SCREEN Routine 09/06/2024 1 :00 PM EDT MLR HEMOGLOBIN A1C Routine 09/06/2024 1: 00 PM EDT BOX TEST Routine 09/06/2024 1:00 PM EDT ALL CBC WITH AUTO DIFF Routine 09/06/2024 1:00 PM EDT [facility] DRUG SCREEN RAPID (URINE) Routine 09/06/2024 12:50 PM EDT POCT URINALYSIS DIPSTICK Routine 09/05/2024 2:01 PM EDT Missed menses POCT , URINE Routine 09/05/2024 2:01 PM EDT Missed menses US OB TRANSVAGINAL Routine 09/05/2024 1: 28 PM EDT Missed menses Positive urine test ([facility]) [facility] PREG QUANT HCG Routine 08/21/2024 [...] (HCC) from Last 3 Months Results * BOX TEST (09/06/2024 1:00 PM EDT) [facility] BOX TEST SENT OUT [facility] 09/06/2024 [facility] 09/06/2024 1:00 PM EDT 09/06/2024 1:15 PM EDT Narrative [facility] - 09/06/2024 2:05 PM EDT Ha Samuel DO LAB BLOOD ORDERABLES Final Resul t Performing Organization Address [facility]/ZIP Co de Phone Number [facility] * HBSAG SCREEN (09/06/2024 1:00 PM EDT) [facility] HBSAG SCREEN Negative Negative [facility] Comment: Performed at: [facility] [address] [id number] Document Imaging Specialist: Atul Duvall PhD, Phone: [phone] 09/06/2024 1:00 PM EDT 09/06/2024 1:15 PM EDT Narrative [facility] - 09/07/2024 1:09 PM EDT us Ha Samuel DO LAB BLOOD ORDERABLES Final Resul t [facility] * RAPID PLASMA REAGIN, QUANT (09/06/2024 1:00 PM EDT) [facility] RAPID PLASMA REAGIN, QUANT Non Reactive NonRea<1: 1 titer [facility] Comment: Please Note: This test does not meet current guidelines for screening and diagnosis of syphilis. This test is intended for following treatment response in patients being treated for syphilis infection. To screen for syphilis infection, a reflex cascade that includes both RPR and a treponema-specific assay should be utilized, such as Treponema pallidum (Syphilis) Screening Barron (296752) or Rapid Plasma Reagin (RPR) Test With Reflex to Quantitative RPR and Confirmatory Treponema pallidum Antibodies ([id number]). Performed at: [address] [id number] Document Imaging Specialist: Atul Duvall PhD, Phone: [phone] 09/06/2024 1:00 PM EDT 09/06/2024 1:15 PM EDT Narrative [facility] - 09/07/2024 1:09 PM EDT Ha Samuel DO LAB BLOOD ORDERABLES Final Resul t Performing Organization Address [facility] Co de Phone Number [facility] * HIV AB/P24 AG WITH REFLEX (09/06/2024 1:00 PM EDT) Pathologist [facility] HIV AB/P24 AG SCREEN Non Reactive Non Reactive [facility] Comment: HIV-1/HIV-2 antibodies and HIV-1 p24 antigen were NOT detected. There is no laboratory evidence of HIV infection. HIV Negative Performed at: [address] [id number] Document Imaging Specialist: Atul Duvall PhD, Phone: [phone] 09/06/2024 1:00 PM EDT 09/06/2024 1:15 PM EDT Narrative [facility] - 09/07/2024 5:11 AM EDT Ha Samuel DO LAB BLOOD ORDERABLES Final Resul t Performing Organization Address City/[facility]/ZIP Co de Phone Number [facility] * HCV ANTIBODY RFX TO QUANT PCR (09/06/2024 1:00 PM EDT) Pathologist [facility] HCV AB Non Reactive Non Reactive [facility] INTERPRETATION: Comment . [facility] Comment: Not infected with HCV unless early or acute infection is suspected (which may be delayed in an immunocompromised individual), or other evidence exists to indicate HCV infection. Performed at: CB - [facility] [id number] Document Imaging Specialist: Atul Duvall PhD, Phone: [phone] 09/06/2024 1:00 PM EDT 09/06/2024 1:15 PM EDT Narrative [facility] - 09/07/2024 8:16 AM EDT Ha Samuel DO LAB BLOOD ORDERABLES Final Resul t Performing Organization Address [facility] Co de Phone Number [facility] * MLR HEMOGLOBIN A1C (09/06/2024 1:00 PM EDT) Pathologist [facility] GLYCOHEMOGLOBIN A1C 5.8 4.5 - 6.2 % [facility] Comment: ADA RECOMMENDED LIMIT 4.0 - 6.0 ADA THERAPEUTIC TARGET < 7.0 ACTION SUGGESTED > 7.0 ESTIMATED AVERAGE GLUCOSE 120 mg/dL TB 09/06/2024 1:00 PM EDT 09/06/2024 1:15 PM EDT Narrative [facility] - 09/06/2024 3:34 PM EDT Ha Samuel DO CLINISYNC Final Result Performing Organization Address [facility] de Phone Number [facility] * ALL TYPE AND SCREEN (09/06/2024 1:00 PM EDT) Pathologist [facility] BLOOD TYPE O Positive [facility] ANTIBODY SCREEN NEGATIVE TB 09/06/2024 1:00 PM EDT 09/06/2024 1:15 PM EDT Narrative [facility] - 09/06/2024 4:54 PM EDT [facility] , Ha Samuel DO CLINISYNC Final Result Performing Organization Address [facility] Co de Phone Number [facility] * ALL RUBELLA IGG AB (09/06/2024 1:00 PM EDT) Pathologist [facility] RUBELLA ANTIBODIES, IGG 1.22 Immune >0.99 index [facility] Comment: Non-immune <0.90 Equivocal 0.90 - 0.99 Immune >0.99 Performed at: - [facility] [id number] Document Imaging Specialist: Atul Duvall PhD, Phone: [phone] 09/06/2024 1:00 PM EDT 09/06/2024 1:15 PM EDT Narrative [facility] - 09/07/2024 8:16 AM EDT us Ha Samuel DO [facility] Final Result [facility] * (ABNORMAL) ALL CBC WITH AUTO DIFF (09/06/2024 1:00 PM EDT) TB WBC 11.5(H) 4.0 - 11.0 10 3/uL [...] us Ha Samuel DO [facility] Final [facility] TB DRUG SCREEN RAPID (URINE) (09/06/2024 [...] Narrative [facility] - 09/06/2024 2:25 PM EDT [facility] Samuel DO CLINISYNC Final Result [facility] * (ABNORMAL) POCT , urine manually resulted (09/05/2024 2:01 PM EDT) Preg Test, Ur Positive Negative Urine 09/05/2024 2:01 PM EDT [facility] Samuel DO POINT OF CARE TEST ENTER/EDIT [...] - Positive Urine 09/05/2024 2:01 PM [facility]/EDIT OR [...] [facility] - 08/21/2024 10:43 AM EDT Ha Samuel DO CLINISYNC Final Result Performing Organization Address City/[facility]/ZIP Co de Phone Number [facility] * T3, free (08/09/2024 12:09 PM EDT) T3, FREE 2.4 2.0 - 4.4 pg/mL [facility] Blood Venous blood specimen / Unknown 08/09/2024 12:09 PM EDT 08/09/2024 Narrative [facility] - 08/10/2024 4:35 AM EDT Performed at: [address] [place] [id number] Document Imaging Specialist: Atul Duvall PhD, Phone: [phone] Allen Carr MD LAB BLOOD ORDERABLES Final Re sult Performing Organization Address [facility] de Phone Number [facility] * TSH (08/09/2024 12:09 PM EDT) Pathologist [facility] TSH 3.130 0.450 - 4.500 uIU/mL [facility] Blood Venous blood specimen / Unknown 08/09/2024 12:09 PM EDT 08/09/2024 Narrative [facility] - 08/10/2024 4:35 AM EDT Performed at: [address] [place] [id number] Document Imaging Specialist: Atul Duvall PhD, Phone: [phone] Allen Carr MD LAB BLOOD ORDERABLES Final Re sult Performing Organization Address City/[facility] Co de Phone Number [facility] * (ABNORMAL) T4, free (08/09/2024 12:09 PM EDT) T4Free(Direct) 0.77(L) 0.82 - 1.77 ng/dL [facility] Blood Venous blood specimen / Unknown 08/09/2024 12:09 PM EDT 08/09/2024 Narrative [facility] - 08/10/2024 4:35 AM EDT Performed at: - [facility] [address] [id number] Document Imaging Specialist: Atul Duvall PhD, Phone: [phone] us Allen Carr MD LAB BLOOD ORDERABLES Final Re sult [facility] from Last 3 Months Insurance [employer]
--- OUTSIDE RECORDS SUMMARY | 2024-09-19 10:06 | XMS_ITS | Data Portability ---
Author Organization [place] - ORACLE PROGRAMMER ANALYST [facility] [address] [place] [address] [address] [place] [address] Care Team Providers Care Senior Contracts Manager Name Role Phone NO PRIMARY CARE PROVIDER [id number] OTHER Assessment Encounter Date Assessment Date Assessment LastModified by Organization Details LastModified Time 07/08/2019 07/08/2019 post doing well, desires IUD [email or web address] Not available 07/09/2019 05:52:34 Plan of Treatment Reminders Order Date Submit Date Provider Last Modified By Organization Details Last Modified Time Details Appointments None recorded. Lab test, urine 2022 023 [email or web address] 3 03 - [facility], [address], [address], [place], [address], 3 15:37:49 beta-HCG, quantitativ e, serum or plasma 2022 023 [email or web address] [facility], [address], [place], [address], 3 13:48:08 abo group + rh type, blood 2022 023 JONO [facility], [address], [place], [address], 3 13:08:35 pap, IG + CT + reflex HR HPV if ASC-U 2019 020 [email or web address] [facility], [address] [place], [address], 0 18:09:23 test, urine 2019 020 [email or web address] 03 - [facility], [address] [facility] [address], [address], [place], [address], 0 17:57:17 Referral None recorded. Procedures None recorded. Surgeries None recorded. Imaging None recorded. Medication Orders Multivitami ns 28 mg iron-800 mcg tablet 2022 023 [email or web address] 3 [id number], [address] [place], [address], 3 15:35:40 Patient TargetsNo targets recorded. Patient Instructions Encounter Date Encounter Id Patient Instructions Last Modified By Organization Details Last Modified Time 07/08/2019 [id number] after your delivery (the period): care instructions Not available 07/09/2019 05:53:03 Educational materials that are relevant to your visit today have been sent to the patient portal where you can view them. If you are not registered on our patient portal please go to our website at [email or web address] and register. Your lab results will also be visible to you on the portal. [email or web address] Not available 07/08/2019 09:59:38 control options discussed. vitamins given. Calcium, vitamin D advised for osteoporosis prevention. Kegel exercises explained. Patient coping post - well. Advised to return for annual porcelain enamel sprayer exam . IUD Risks and Complications: Perforation: [...] cervix or vagina, such as bacterial vaginosis. [email or web address] Not available 07/09/2019 05:52:46 07/11/2019 [id number] Educational materials that are relevant to your visit today have been sent to the patient portal where you can view them. If you are not registered on our patient portal please go to our website at [email or web address] and register. Your lab results will also be visible to you on the portal. [email or web address] Not available 07/11/2019 17:57:27 Since uterus is [...] in 2 wks for 6wk PP visit. Not available 07/11/2019 18:01:59 07/31/2019 [id number] after your delivery (the period): care instructions [email or web address] Not available 07/31/2019 18:09:23 Educational materials that are relevant to your visit today have been sent to the patient portal where you can view them. If you are not registered on our patient portal please go to our website at [email or web address] and register. Your lab results will also be visible to you on the portal. [email or web address] Not available 07/31/2019 15:39:57 control options discussed. vitamins given. Calcium, vitamin D advised for osteoporosis prevention. Kegel exercises explained. Patient coping post - well. Advised to return for annual porcelain enamel sprayer exam . [email or web address] Not available 07/31/2019 15:39:57 03/31/2022 [id number] learning about Not available 03/31/2022 15:37:49 learning [...] be visible to you on the portal. [email or web address] Not available 03/31/2022 14:26:33 - Viability u/s [...] ve Not Available 03 - [facility] [address] [facility] [address] [facility] [address], [place], [address], 07/11/2019 17:57:10 03/31/19 23 04/01/2022 ABO GROUP ING AND RHO(D ) TYPIN G ABO grouping O Not Available [facility] ([facility]) [address] [place], [address], 04/01/2022 13:08:35 03/31/19 23 04/01/2022 ABO GROUP ING AND RHO(D ) TYPIN G Rh factor Positi ve Pleas e note: Prior recor ds for this patie nt's ABO / Rh type are not avail able for addit ional verif icati on. Not Available [facility] ([facility]) [address] [facility], [place], [address], 04/01/2022 13:08:35 02/02/20 23 04/01/2022 HCG,B ETA SUBUN IT, QNT HCG,beta subunit,qnt, serum 54158 mIU/m L Femal e (Non- pregn ant) 0 - 5 (Post menop ausal ) 0 - 8 Femal e (Preg nant) Weeks of Gesta tion 3 6 - 71 4 10 - 750 5 507 - 2536 6 248 - 67092 7 2401 -3700 63 8 13598 -0640 71 9 47261 -2765 10 10 54873 -0417 77 12 56415 -2980 12 14 74963 - 13097 15 30353 - 73590 16 9074 - 48743 17 0721 - 20773 18 1042 - 22561 Resul ts confi rmed on dilut ion. Adan ECLIA metho dolog y Not Available [facility] ([facility]) [address] [facility], [place], [address], 04/01/2022 13:08:36 03/31/19 23 03/31/2022 pregn page test, urine HCG positi ve Not Available 03 - [facility] [address] [facility] [address], [place], [address], 03/31/2022 14:31:43 03/31/19 23 03/31/2022 US, obste tric, trans vagin al No observ ation record ed. [facility] [address], [place], [address], 04/01/2022 14:38:21 Result Notes None recorded. Problems Name Problem SNOMED Code Status Onset Date Resolution Date Notes Provider Name and Address Organization Details Recorded Time Postnata l care status 652718298 Active Aziza ascencio [place] - ORACLE PROGRAMMER ANALYST [facility] 3 14:27:12 Anemia 170285815 Active SRIKANTH Taylor - ORACLE PROGRAMMER ANALYST [employer] 3 14:27:12 Obesity 858991867 Active 2017 Prepregn ant BMI>> Aziza ascencio [place] ORACLE PROGRAMMER ANALYST [facility] 3 14:27:26 Obesity 337856514 Completed 2017 Prepregn ant BMI>> Amparo thomas [facility] ORACLE PROGRAMMER ANALYST [facility] 9 11:38:23 Pregnanc y 29886484 Completed 201705/28/2018 Moshe Smith [facility], [facility] ORACLE PROGRAMMER ANALYST [facility] 3 15:12:00 Hyperthy roidism 48672132 Completed 201711/28/2017 Britney CASTILLO [address], [place], [address], [place] - ORACLE PROGRAMMER ANALYST [facility] 8 12:57:05 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 Asher ocampo Amparo thomas null, [facility] ORACLE PROGRAMMER ANALYST [facility] 9 11:38:23 Hypothyr oidism 70316575 Active 2017 Onset ; 2 weeks after / placed on Syntroid 200mcg daily;En docrine> >Dr. Sotelo (endo) Amparo thomas null, [facility] ORACLE PROGRAMMER ANALYST [facility] 0 08:53:08 Hypothyr oidism 34991819 Completed 2017 Onset ; 2 weeks after / placed on Syntroid 200mcg daily;En docrine> >Dr. Sotelo (endo) Amparo thomas null, [facility] ORACLE PROGRAMMER ANALYST [facility] 0 08:53:08 Body mass index 30+ - obesity 608284818 Completed 201812/25/2018 Sherrie Alford MD [address], [place], [address], [facility] ORACLE PROGRAMMER ANALYST [facility] 9 14:19:20 Body mass index 30+ - obesity 677281297 Completed 2018 Amparo ascencio [place] - ORACLE PROGRAMMER ANALYST [facility] 9 11:38:23 Anemia of pregnanc y 15059380 Completed 201812/25/2018 Sherrie Alford MD [address], [place], [address], [place] - ORACLE PROGRAMMER ANALYST [facility] 9 14:19:16 Anemia of pregnanc y 11768696 Completed 2018 Amparo ascencio [facility] ORACLE PROGRAMMER ANALYST [facility] 9 11:38:23 Pregnanc y-induce d hyperten aj 61870152 Completed 2018 Amparo ascencio [facility] ORACLE PROGRAMMER ANALYST [facility] 9 11:38:23 Pregnanc y-induce d hyperten aj 69961210 Completed 201802/06/2019 CLAIR VALENCIA MD [address], [place], [address], [place] - ORACLE PROGRAMMER ANALYST [facility] 9 11:12:08 Pregnanc y 61299926 Completed 201806/18/2019 [facility] 3 15:12:00 Maternal obesity complica ting pregnanc y, [facility] and [facility] [place] [facility] 30581092465 7 Completed 201812/25/2018 Sherrie Alford MD [address], [place], [address], [place] - ORACLE PROGRAMMER ANALYST [facility] 9 14:19:07 Maternal obesity complica ting pregnanc y, childbir [place] and [place] , [facility] 30350809086 7 Completed 2018 Amparo ascencio [facility] ORACLE PROGRAMMER ANALYST [facility] 0 08:53:08 Problem Notes None recorded. Procedures Surgical History Date Name Laterality Status Provider Name and Address Organization Details Recorded Time 04/29/19 23 NEW OB EST commercial cancelled Eileen Agudelo [place] - ORACLE PROGRAMMER ANALYST [facility] 04/28/2022 08:45:50 03/31/19 23 OB Ultrasound Transvaginal completed Jillian Ivey [place] ORACLE PROGRAMMER ANALYST [facility] 03/31/2022 15:51:35 07/31/19 20 Post- (Medicaid/Medica id HMO) completed Emanzully Accelon (TERMED) [place] [employer]ACLE PROGRAMMER ANALYST [facility] 07/31/2019 15:39:57 07/31/19 20 Post- depression screening completed Emanise Accelon (TERMED) [place] [employer]ACLE PROGRAMMER ANALYST [facility] 07/31/2019 15:39:57 07/31/19 20 Date of Last Pap Smear completed Aziza Muller [place] - ORACLE PROGRAMMER ANALYST [facility] 03/31/2022 14:36:32 07/11/19 20 IUD insertion completed Delmis Ruvalcaba [place] ORACLE PROGRAMMER ANALYST [facility] 07/11/2019 14:19:31 07/08/19 20 Post- (Medicaid/Medica id HMO) completed Last Bonner [place] - ORACLE PROGRAMMER ANALYST [facility] 07/08/2019 09:59:38 07/08/19 20 Post- depression screening completed Last Bonner [place] ORACLE PROGRAMMER ANALYST [facility] 07/08/2019 09:59:38 06/04/19 20 NON-STRESS TEST (NST) Digital report in record) completed Last Bonner [place] ORACLE PROGRAMMER ANALYST [facility] 06/04/2019 09:43:05 06/04/19 20 OB Ultrasound Biophysical Profile with NST completed Danna Hu [place] [employer]ACLE PROGRAMMER ANALYST [facility] 06/04/2019 10:20:46 06/04/19 20 NON-STRESS TEST (NST) Digital report in record) completed Alberta Brantley [place] ORACLE PROGRAMMER ANALYST [facility] 06/04/2019 12:53:32 06/04/19 20 visit (Medicaid/HMO) completed Viky Case (TERMED) [place] [employer]LE PROGRAMMER ANALYST [facility] 06/04/2019 09:00:14 05/28/19 20 Telemedicine 11-20 minutes completed Sherrie Alford MD [address], [place], [address], [place] - ORACLE PROGRAMMER ANALYST [facility] 05/28/2019 14:49:55 05/28/19 20 OB Ultrasound Follow-Up Anatomy/Growth completed Kylah Arzola [place] - ORACLE PROGRAMMER ANALYST [facility] 05/28/2019 14:24:32 05/15/19 20 visit (Medicaid/HMO) completed Batsheva Wilson [place] - ORACLE PROGRAMMER ANALYST [facility] 05/15/2019 09:56:28 05/07/19 20 visit (Medicaid/HMO) completed Alberta Brantley [place] - ORACLE PROGRAMMER ANALYST [facility] 05/07/2019 21:07:21 04/30/19 20 visit (Medicaid/HMO) completed Delmis Ruvalcaba [place] ORACLE PROGRAMMER ANALYST [facility] 04/30/2019 09:14:28 04/30/19 20 NON-STRESS TEST (NST) Digital report in record) completed Hannah Carranza [place] ORACLE PROGRAMMER ANALYST [facility] 04/30/2019 09:21:08 04/16/19 20 visit (Medicaid/HMO) completed Delmis Ruvalcaba [place] ORACLE PROGRAMMER ANALYST [facility] 04/16/2019 11:58:23 04/16/19 20 OB Ultrasound Follow-Up Anatomy/Growth completed Andie Berrios, AWNING SPREADER [address], [place], [address], [place] - ORACLE PROGRAMMER ANALYST [facility] 04/16/2019 11:35:39 04/16/19 20 OB Ultrasound Follow-Up Anatomy/Growth completed Luzma Wilson [place] ORACLE PROGRAMMER ANALYST [facility] 04/16/2019 10:08:15 04/02/19 20 visit (Medicaid/HMO) completed Delmis Ruvalcaba [place] ORACLE PROGRAMMER ANALYST [facility] 04/02/2019 13:31:12 03/19/19 20 visit (commercial) completed Leighann Aldridge [place] - ORACLE PROGRAMMER ANALYST [facility] 03/19/2019 13:53:25 03/12/19 20 OB Ultrasound Follow-Up Anatomy/Growth [facility] [place] [employer]ACLE PROGRAMMER ANALYST [facility] 03/12/2019 09:12:26 02/26/20 19 visit (Medicaid/HMO) completed Emily Storey [place] - ORACLE PROGRAMMER ANALYST [facility] 02/25/2019 10:46:12 02/07/20 19 visit (Medicaid/HMO) completed Angelica Hogan [place] - ORACLE PROGRAMMER ANALYST [facility] 02/06/2019 11:28:49 02/07/20 19 OB Ultrasound Transvaginal completed Candice Leos [place] - ORACLE PROGRAMMER ANALYST [facility] 02/06/2019 11:01:39 02/07/20 19 OB Ultrasound Targeted Level 2 completed Candice Leos [place] ORACLE PROGRAMMER ANALYST [facility] 02/06/2019 11:01:38 01/18/20 19 visit (Medicaid/HMO) completed Delmis Ruvalcaba [place] - ORACLE PROGRAMMER ANALYST [facility] 01/17/2019 11:07:21 01/02/20 19 visit (Medicaid/HMO) completed Gulshan Murphy [place] - ORACLE PROGRAMMER ANALYST [facility] 01/01/2019 14:08:49 12/12/19 19 OB Ultrasound Nuchal Translucency completed Halie Fine (TERMED) [place] [employer]ACLE PROGRAMMER ANALYST [facility] 12/11/2018 13:52:46 12/12/19 19 visit (commercial) completed Brenda Reyes [place] - ORACLE PROGRAMMER ANALYST [facility] 12/11/2018 14:02:18 11/21/19 19 NEW OB 1st Tri Medicaid/HMO completed Emily Storey [place] - ORACLE PROGRAMMER ANALYST [facility] 11/20/2018 10:25:28 11/14/19 19 OB Ultrasound Transvaginal completed Halie Fine (TERMED) [place] [employer]ACLE PROGRAMMER ANALYST [facility] 11/13/2018 09:46:21 07/17/19 19 Post- GLOBAL (Commercial) completed Secylia Andrey (TERMED) [place] [employer]LE PROGRAMMER ANALYST [facility] 07/16/2018 11:28:52 07/17/19 19 Post- depression screening completed Pascaleylia Andrey (TERMED) [place] [employer]ACLE PROGRAMMER ANALYST [facility] 07/16/2018 11:28:52 06/19/19 19 Post- (Medicaid/Medica id HMO) completed Krishna Coker MD [address], [place], [address], [place] [employer]ACLE PROGRAMMER ANALYST [facility] 06/18/2018 09:20:45 06/19/19 19 Post- depression screening completed Krishna Coker MD [address], [place], [address], [place] - ORACLE PROGRAMMER ANALYST [facility] 06/18/2018 09:20:45 05/19/19 19 visit (commercial) completed Emily Storey [place] ORACLE PROGRAMMER ANALYST [facility] 05/18/2018 10:18:20 05/19/19 19 visit (Medicaid/HMO) completed Emily Storey [place] ORACLE PROGRAMMER ANALYST [facility] 05/18/2018 10:18:13 05/19/19 19 NON-STRESS TEST (NST) Digital report in record) completed Gustavo Apodaca (TERMED) [facility] ORACLE PROGRAMMER ANALYST [facility] 05/18/2018 10:55:34 05/16/19 19 NON-STRESS TEST (NST) Digital report in record) completed Emily Storey [place] [employer]ACLE PROGRAMMER ANALYST [facility] 05/15/2018 11:13:15 05/12/19 19 NON-STRESS TEST (NST) Digital report in record) completed Mo Balderas (TERMED) [place] [employer]ACLE PROGRAMMER ANALYST [facility] 05/11/2018 11:31:41 05/10/19 19 visit (Medicaid/HMO) completed Emily Storey [place] [employer]ACLE PROGRAMMER ANALYST [facility] 05/09/2018 09:19:55 05/10/19 19 NON-STRESS TEST (NST) Digital report in record) completed Cr Lee [place] ORACLE PROGRAMMER ANALYST [facility] 05/09/2018 09:45:21 05/05/19 19 NON-STRESS TEST (NST) Digital report in record) completed Angelica Hogan [place] [employer]ACLE PROGRAMMER ANALYST [facility] 05/04/2018 12:21:53 05/02/19 19 visit (Medicaid/HMO) completed Leighann Aldridge [place] ORACLE PROGRAMMER ANALYST [facility] 05/01/2018 12:20:16 05/02/19 19 NON-STRESS TEST (NST) Digital report in record) completed Gustavo Apodaca (TERMED) [place] [employer]ACLE PROGRAMMER ANALYST [facility] 05/01/2018 12:12:29 05/02/19 19 visit (commercial) completed Emily Storey [place] - [employer]ACLE PROGRAMMER ANALYST [facility] 05/01/2018 10:49:37 04/28/19 19 visit (commercial) completed Cr Lee [place] - ORACLE PROGRAMMER ANALYST [facility] 04/27/2018 10:41:07 04/28/19 19 NON-STRESS TEST (NST) Digital report in record) completed Emily Storey [place] - [employer]ACLE PROGRAMMER ANALYST [facility] 04/27/2018 12:24:15 04/24/19 19 visit (Medicaid/HMO) completed Emily Storey [place] - ORACLE PROGRAMMER ANALYST [facility] 04/24/2018 14:02:17 04/24/19 19 NON-STRESS TEST (NST) Digital report in record) completed Mo Balderas (TERMED) [place] [employer]ACLE PROGRAMMER ANALYST [facility] 04/24/2018 14:34:54 04/17/19 19 NON-STRESS TEST (NST) Digital report in record) completed Pascaleylbrett Balderas (TERMED) [place] [employer]LE PROGRAMMER ANALYST [facility] 04/17/2018 13:23:57 04/17/19 19 visit (Medicaid/HMO) completed Gustavo Apodaca (TERMED) [place] [employer]LE PROGRAMMER ANALYST [facility] 04/17/2018 12:09:50 04/06/19 19 OB Ultrasound Follow-Up Anatomy/Growth completed Halie Fine (TERMED) [place] [employer] PROGRAMMER ANALYST [facility] 04/06/2018 15:49:44 04/06/19 19 OB Ultrasound Biophysical Profile with NST completed Halie Fine (TERMED) [place] [employer]LE PROGRAMMER ANALYST [facility] 04/06/2018 15:49:45 04/06/19 19 NON-STRESS TEST (NST) Digital report in record) completed Pascaleylbrett Balderas (TERMED) [place] [employer]ACLE PROGRAMMER ANALYST [facility] 04/06/2018 15:59:27 04/06/19 19 visit (Medicaid/HMO) completed Hannah Carranza [place] - [employer]ACLE PROGRAMMER ANALYST [facility] 04/06/2018 14:39:16 03/28/19 19 visit (commercial) completed Angelica Hogan [place] - [employer]ACLE PROGRAMMER ANALYST [facility] 03/28/2018 10:54:11 03/06/19 19 visit (commercial) completed Cr Lee [place] - ORACLE PROGRAMMER ANALYST [facility] 03/06/2018 15:43:53 02/07/20 18 OB Ultrasound Follow-Up Anatomy/Growth completed Rabia Echols (Termed) [place] [employer]ACLE PROGRAMMER ANALYST [facility] 02/06/2018 11:00:25 01/25/20 18 visit (Medicaid/HMO) completed Isabel Beaver (TERMED) [place] [employer]ACLE PROGRAMMER ANALYST [facility] 01/24/2018 09:16:44 12/27/19 18 OB Ultrasound Transvaginal completed Addie Stroud [place] [employer]ACLE PROGRAMMER ANALYST [facility] 12/26/2017 11:36:44 12/27/19 18 OB Ultrasound Targeted Level 2 completed Addie Stroud [facility] ORACLE PROGRAMMER ANALYST [facility] 12/26/2017 11:36:44 12/27/19 18 visit (Medicaid/HMO) completed Madonna Caballero (TERMED) [place] [employer]ACLE PROGRAMMER ANALYST [facility] 12/26/2017 11:35:23 12/13/19 18 visit (Medicaid/HMO) completed Mica Shannon [place] [employer]ACLE PROGRAMMER ANALYST [facility] 12/12/2017 09:13:52 11/29/19 18 NEW OB 2nd,3rd Tri Medicaid/HMO completed Meseret Mondragon (TERMED) [place] [employer]LE PROGRAMMER ANALYST [facility] 11/28/2017 11:16:27 11/17/19 18 OB Ultrasound Nuchal Translucency completed Linda Hamlin [place] [employer]ACLE PROGRAMMER ANALYST [facility] 11/16/2017 12:12:23 02/27/19 15 Hand surgery completed Meseret Mondragon (TERMED) [place] [employer] PROGRAMMER ANALYST [facility] 11/28/2017 11:19:45 Imaging Results None recorded. Procedure Notes None recorded. Medical Equipment None Reported. Allergies Allergen ID Allergen Name Allergen Category Reaction Reaction Severity Criticality Documentation Date Start Date Code Code System Note Provider Name and Address Organization Details Recorded Time 599460 Substance with sulfonami de structure and antibacte rial mechanism of action (substanc e) medicatio n rash Not available Not available 11/16/2017 74903 8003 SNOMED Belén Dunia ascencio [place] - [employer]ACLE PROGRAMMER ANALYST [facility] 8 12:16:45 831843 Pediazole medicatio n rash Not available Not available 11/16/2017 05319 RxNorm Belén Duque sonu, SRIKANTH - ORACLE PROGRAMMER ANALYST [facility] 8 12:17:12 Medications Name Sig Start Date [...] Updated DateTime 3 162.56 cm 38.6 kg/m2 083825. 85 g 88 /min 97.7 [degF] 95/63 mm[Hg] Aziza Muller [place] - [employer]ACLE PROGRAMMER ANALYST [facility] 3 14:26:56 Date Recorded Body height Body mass index (BMI) Body weight Heart rate Systolic And Diastolic Provider Name and Address Organization Details Last Updated DateTime 07/08/2019 162.56 cm 36.6 kg/m2 05191.89 g 71 /min 108/76 mm[Hg] Last Bonner [place] - [employer]ACLE PROGRAMMER ANALYST [facility] 07/08/2019 09:59:50 Date Recorded Body height Body mass index (BMI) Body weight Heart rate Systolic And Diastolic Provider Name and Address Organization Details Last Updated DateTime 07/11/2019 162.56 cm 36.8 kg/m2 39546.2 g 86 /min 103/55 mm[Hg] Delmis Ruvalcaba [place] - [employer]ACLE PROGRAMMER ANALYST [facility] 07/11/2019 14:18:23 Date Recorded Body height Body mass index (BMI) Body weight Heart rate Systolic And Diastolic Provider Name and Address Organization Details Last Updated DateTime 07/31/2019 162.56 cm 36.7 kg/m2 91333.77 g 86 /min 117/77 mm[Hg] Ellen Bowers (TERMED) [place] [employer]LE PROGRAMMER ANALYST [facility] 07/31/2019 15:40:06 Social History Question Answer Notes LastModified by Organizat ion Details LastModified Time Tobacco Smoking Status Never Smoker Meseret Mondragon (TERMED) null, [place] [employer] PRO[employer]MER ANALYST [facility] 11/28/2017 11:19:16 Do You Have An Advance Directive? No [email or web address] Information not available 11/16/2017 Are You Blind Or Do You Have Difficulty Seeing? No [email or web address] Information not available 03/31/2022 Is Blood Transfusion Acceptable In An Emergency? Yes [email or web address] Information not available 11/16/2017 In The 14 Days Before Symptom Onset, Have You Had Close Contact With A Laboratory-confir med COVID-19 While That Case Was Ill? No Information not available 03/31/2022 In The 14 Days Before Symptom Onset, Have You Had Close Contact With A Person Who Is Under Investigation For COVID-19 While That Person Was Ill? No [email or web address] Information not available 03/31/2022 Have You Been To An Area Known To Be High Risk For COVID-19? No Information not available 03/31/2022 Are You Deaf Or Do You Have Serious Difficulty Hearing? No [email or web address] Information not available 03/31/2022 Physical Abuse No [email or web address] Informatio n not available 11/28/2017 Emotional Abuse No [email or web address] Informati on not available 11/28/2017 Illicit Drugs Denies Illicit Substance Abuse Information not available 11/16/2017 Impairment No Impairment [email or web address] Information not available 11/28/2017 Would You Like HIV Testing Or Counseling At This Time? No [email or web address] Information not available 03/31/2022 What Was The Date Of Your Most Recent Tobacco Screening? 03/31/2022 [email or web address] Information not available 03/31/2022 Are There Any Smokers In Your House? No Information not available 11/16/2017 How Much Tobacco Do You Smoke? No [email or web address] Information not available 03/31/2022 How Many Years Have You Smoked Tobacco? 0 [email or web address] Information not available 03/31/2022 Do You Have Difficulty Walking Or Climbing Stairs? No Information not available 03/31/2022 Sex: Female Functional Status Question Answer Note LastModified by Organizat ion Details LastModified Time What is your level of alcohol consumption? None Information not available 11/16/2017 Do you or have you ever used smokeless tobacco? Never used smokeless tobacco [email or web address] Information not available 03/31/2022 Do you have difficulty doing errands alone? No [email or web address] Information not available 03/31/2022 Do you have difficulty dressing or bathing? No [email or web address] Information not available 03/31/2022 Do you or have you ever used e-cigarettes or vape? Never used electronic cigarettes [email or web address] Information not available 03/31/2022 Mental Status Question Answer Note LastModified by Organization D etails LastModified Time Do you have difficulty concentrating, remembering or making decisions? No [email or web address] Information no t available 03/31/2022 Family History Relationship Description Onset Age of this Age Resolved Age Notes LastModified by Organization Details LastModified Time Paternal Grandfather Family history of malignant neoplasm [email or web address] Not available 2022 14:28:32 Maternal Grandfather Diabetes mellitus Not available 2022 14:28:32 Mother Pre-eclampsi a [email or web address] Not available 2022 14:28:32 Paternal Aunt Hypothyroidi sm [email or web address] Not available 2022 14:28:32 Paternal Grandmother Hypothyroidi sm [email or web address] Not available 2022 14:28:32 Medical History Condition Response Other N BRCA Test negative N Vulvar Cancer N Hyperthyroidism N Emphysema COPD N Blood Transfusion N BRCA POSITIVE N Colon cancer N Depression N Alzheimer's disease N Anxiety Disorder N Hemorrhoids N Obesity N Arthritis N Infertility N Acid Reflux (GERD) N Cancer N HIV positive N Stroke N Melanoma N Prostate cancer N Ovarian cyst N Shingles (Varicella zoster) N Hypertension, induced N Skin Disease N , missed N Pancreatic cancer N Fibromyalgia N Headaches N Fibrocystic breasts N RAVEN I, II [...] prolapse N Diabetes Type II N Abnormal Pap N Abnormal uterine bleeding N Diabetes Type I N Polyps, uterus or cervix N ARZATE testing POSITIVE N Vulvar problem N Attention deficit disorder N Breast Cancer N Hypothyroidism N Lung Disease N Defects or Inherited Disease N Menopausal [...] N , elective N Hepatitis C N HIGH RISK - H/O N Anemia N Thrombocytopenia (low platelet count) N Psychiatric Illness N Ovarian Cancer N Fibroids N Eczema N Ectopic N Hepatitis B N Connective Tissue Disorder N Seizure disorder N , spontaneous N ENT problem N Heart Disease N Chlamydia POSITIVE Y Endometrial cancer N Pre-Eclampsia N Hypertension N Osteoporosis N Gynecological History Statement/Question Response Hysterectomy N Menopause N Flow Moderate Date of LMP 01/23/2022 HPV Vaccine Y Duration of Flow (days) 6 Age at Menarche 10 Current Control Method Most Recent Mammogram What is the patient s current relationship to the practice? 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) [address] [place] [address] 0 11/28/2017 10:21:16 11/28/2017 12:38:40 Obesity 093329497 E66.9 Hypothyroidism 52368858 E03.9 [id number] Sherrie Alford MD 80 - ([facility]) [address] [address] 0 12/12/2017 08:58:24 12/12/2017 12:23:53 High risk 47667639 O09.92 [id number] Clair Valencia MD 82 - ([facility]) [address] [place] [address] 0 12/26/2017 11:14:30 12/26/2017 12:36:09 High risk 70279950 O09.92 Hypothyroi dism in 260377398 E03.9 [id number] Clair Valencia MD 82 - ([facility]) [address] [place] [address] 0 12/26/2017 11:15:01 12/26/2017 12:35:54 Routine care 093785951 Z34.90 [id number] Rafael Julian MD 82 - ([facility]) [address] [place] [address] 0 01/24/2018 09:12:46 01/24/2018 11:26:30 High risk 76643159 O09.892 Hypothyroidism 06041861 E03.9 [id number] Sherrie Alford MD 82 - ([facility]) [address] [place] [address] 0 02/06/2018 09:39:42 02/06/2018 10:59:54 Routine care 158597043 Z34.90 [id number] Romario Alex MD 03 - [facility] t Office [address] [facility] [address] [place] [address] 03/06/2018 14:53:45 03/06/2018 16:35:24 Routine care 337234331 Z34.82 04206620 Z34.9 2 [id number] Romario Alex MD 03 - [facility] t Office [address] [facility] [address] [place] [address] 03/28/2018 10:40:35 03/28/2018 15:27:48 Routine care 934121765 Z34.82 CONT. surveillan ce-KICK COUNT-LABO R PRECAUTION S-EDUCATIO N AND counseling Vaginitis 86260193 N76.0 [id number] Mayur Serra MD 03 - [facility] t Office [address] [facility] [address] [place] [address] 04/06/2018 14:20:11 04/06/2018 15:13:08 Routine care 298263431 Z34.82 [id number] Mayur Serra MD 03 - [facility] t Office [address] [facility] [address] [place] [address] 04/06/2018 15:04:15 04/06/2018 17:24:39 [id number] Kathleen Campbell MD 03 - [facility] t Office [address] [facility] [address] [place] [address] 04/06/2018 15:04:51 04/06/2018 17:26:29 Routine care 322248293 Z34.90 [id number] Sha Becker MD 03 - [facility] t Office [address] [facility] [address] [place] [address] 04/17/2018 11:57:49 04/17/2018 14:39:13 Routine care 374911955 Z34.82 [id number] Sha Becker MD 03 - [facility] t Office [address] [facility] [address] [place] [address] 04/17/2018 12:33:49 04/17/2018 14:40:34 [id number] Leighann Aldridge APRN 03 - [facility] Office [address] [facility] [address] [place] [address] 04/24/2018 13:44:24 04/24/2018 15:59:40 [id number] Leighann Aldridge APRN 03 - [facility] Office [address] [facility] [address] [place] [address] 04/24/2018 13:46:43 04/24/2018 15:58:17 Routine care 075939085 Z34.03 - induced hypertension 82594984 O13.9 [place]emia of 2734 2003 O99.019 Body mass index 30+ - obesity 609299254 Z68.38 [id number] Sha Becker MD 03 - [facility] Office [address] [facility] [address] [place] [address] 04/27/2018 10:20:12 04/27/2018 14:05:00 Obesity 067100605 E66.9 [id number] Sha Becker MD 03 - [facility] Office [address] [facility] [address] [place] [address] 04/27/2018 10:20:24 04/27/2018 11:03:17 Routine care 311233889 Z34.82 81142247 Z34.9 3 At increas ed risk of sexually transmitted infection 278693140 Z11.3 [id number] Leighann Aldridge APRN 03 [facility] Office [address] [facility] [address] [place] [address] 05/01/2018 10:19:46 05/01/2018 12:33:44 Maternal obesity complicating , childbirth and the puerperium, antepartum 4242101078 07 O99.213 Routine an tenatal care 499527730 Z34.82 Normal 8559483 2 Z34.83 [id number] Leighann Aldridge APRN 03 - [facility] Office [address] [facility] [address] [place] [address] 05/01/2018 10:19:46 05/01/2018 12:33:44 Routine care 985624801 Z34.82 Obesity 403418906 E66.9 [id number] Sha Becker MD 03 - [facility] Office [address] [facility] [address] [place] [address] 05/04/2018 11:32:45 05/04/2018 13:45:29 [id number] Z33.1 [id number] Leighannher Chris Aldridge APRN 03 [facility] Office [address] [facility] [address] [place] [address] 05/09/2018 09:00:57 05/09/2018 10:36:56 Maternal obesity complicating , childbirth and the puerperium, antepartum 3690749210 07 O99.271 [id number] Leighann Aldridge APRN 03 [facility] Office [address] [facility] [address] [place] [address] 05/09/2018 09:01:23 05/09/2018 15:49:43 High risk 11247067 O09.93 - induced hypertension 56415912 O13.9 [id number] Leighannher Chris Aldridge APRN 03 [facility] Office [address] [facility] [address] [place] [address] 05/11/2018 10:41:26 05/11/2018 12:00:35 [id number] Mayur Serra MD 03 - [facility] Office [address] [facility] [address] [place] [address] 05/15/2018 10:33:45 05/15/2018 12:43:01 Obesity 237540802 E66.9 Routine an tenatal care 951963963 Z34.82 [id number] Leighann Aldridge APRN 03 [facility] Office [address] [facility] [address] [place] [address] 05/18/2018 09:55:21 05/18/2018 12:45:32 [id number] Z33.1 [id number] Leighann Aldridge APRN 03 [facility] Office [address] [place] [address] [address] [place] [address] 05/18/2018 09:55:32 05/18/2018 12:43:32 Routine care 175040884 Z34.82 [id number] Krishna Coker MD 03 [facility] Office [address] [facility] [address] [place] [address] 06/18/2018 09:13:23 06/18/2018 09:46:54 state 88470551 Z39.2 [id number] Alberta Brantley MD 03 [facility] Office [address] [facility] [address] [place] [address] 07/16/2018 11:17:25 07/16/2018 12:17:50 state 03957656 Z39.2 Initial pr escription of oral contraception 667476731 Z30.594 [id number] Leighann Aldridge APRN 03 [facility] Office [address] [place] [address] [address] [place] [address] 11/13/2018 08:54:52 11/13/2018 14:50:20 Amenorrhea 44399009 N91.1 Urine preg gustavo test positive 767649425 Z32.01 Normal 3161151 2 Z33.1 Maternal o besity complicating , childbirth and the puerperium, antepartum 4424919302 07 O99.213 Nausea and vomiting 1693 2000 R11.2 Hypothyroidism 50851623 E03.9 [id number] Sha Becker MD 03 [facility] Office [address] [facility] [address] [place] [address] 11/13/2018 09:31:52 11/13/2018 14:49:36 Routine care 014935813 Z34.90 [id number] Leighann Aldridge APRN [address] [place] [address] Office [address] [facility] [address] [place] [address] 11/20/2018 09:42:36 11/20/2018 15:07:34 Routine care 386613796 Z34.81 Maternal o besity complicating , childbirth and the puerperium, antepartum 1651073967 07 O99.976 [id number] Leighannher Chris Aldridge APRN 03 - [facility] Office [address] [facility] [address] [place] [address] 12/11/2018 12:55:32 12/11/2018 17:30:54 Routine care 537563830 Z34.82 screening 2437 01798 Z36.0 [id number] Kathleen Campbell MD 03 - [facility] Office [address] [facility] [address] [place] [address] 12/11/2018 12:55:44 12/11/2018 17:34:02 screening 608240247 Z36.82 [id number] Sherrie Alford MD 09 - [facility] [address] Office [address] [facility] [address] [place] [address] 12/25/2018 13:51:53 12/25/2018 14:56:05 Maternal obesity complicating , childbirth and the puerperium, antepartum 3833460719 07 O99.212 Hypothyroidism 12221101 E03.9 - induced hypertension 83661110 O13.9 [id number] Leighann Aldridge APRN 03 [facility] Office [address] [facility] [address] [place] [address] 01/01/2019 13:43:53 01/01/2019 14:09:43 Routine care 895455323 Z34.82 screening 2437 58410 Z36.1 [id number] Flor Caballero APRN 03 - [facility] Office [address] [facility] [address] [place] [address] 01/17/2019 10:14:54 01/17/2019 14:52:12 Routine care 383251870 Z34.82 [id number] CLAIR VALENCIA MD 09 - [facility] 100 Office [address] [facility] [address] [place] [address] 02/06/2019 10:17:51 02/06/2019 12:52:09 Routine care 826609561 Z34.90 [id number] CLAIR VALENCIA MD 09 - [facility] 100 Office [address] [facility] [address] [place] [address] 02/06/2019 10:18:54 02/06/2019 11:11:00 Hypothyroidism 96443489 E03.9 - induced hypertension 34346895 O13.9 Maternal o besity complicating , childbirth and the puerperium, antepartum 9985186337 07 O99.343 [id number] Leighann Chris Aldridge APRN 03 [facility] Office [address] [facility] [address] [place] [address] 02/06/2019 11:22:16 02/06/2019 17:16:30 Routine care 015881013 Z34.82 Constipation 06915075 K5 9.00 [id number] Leighann Chris Aldridge APRN 03 [facility] Office [address] [facility] [address] [place] [address] 02/25/2019 10:18:28 02/25/2019 12:41:13 Routine care 867053635 Z34.82 [id number] Sherrie Alford MD 09 - [facility] 100 Office [address] [facility] [address] [place] [address] 03/12/2019 09:03:19 03/12/2019 10:13:24 Hypothyroidism 71654375 E03.9 - induced hypertension 62505061 O13.9 Maternal o besity complicating , childbirth and the puerperium, antepartum 6264552719 07 O99.066 [id number] Sherrie Alford MD 09 - [facility] 100 Office [address] [facility] [address] [place] [address] 03/12/2019 09:04:41 03/12/2019 09:27:35 Routine care 692560263 Z34.90 [id number] Leighann Aldridge APRN 03 [facility] Office [address] [facility] [address] [place] [address] 03/19/2019 13:45:12 03/26/2019 14:41:38 Routine care 477337338 Z34.82 [id number] Z34.9 2 [id number] Flor Caballero, JUICE 03 - [facility] Office [address] [place] [address] 04/02/2019 13:24:12 04/02/2019 14:14:31 Routine care 536387479 Z34.82 [id number] Antione Bustamante MD 09 - [facility] 100 Office [address] [facility] [address] [place] [address] 04/16/2019 09:35:31 04/16/2019 12:32:25 Routine care 536521521 Z34.90 [id number] Andie Berrios APRN 09 - [facility] 100 Office [address] [facility] [address] [place] [address] 04/16/2019 09:38:04 04/16/2019 11:40:06 Hypothyroidism 66469738 E03.9 Maternal o besity complicating , childbirth and the puerperium, antepartum 5167385547 07 O99.212 Hypothyroi dism in 863712929 E03.9 [id number] Leighann Aldridge APRN - [facility] Office [address] [facility] [address] [place] [address] 04/16/2019 11:48:57 04/16/2019 14:14:38 Routine care 528465186 Z34.82 [id number] Sha Becker MD - [facility] Office [address] [facility] [address] [place] [address] 04/30/2019 09:04:17 04/30/2019 12:11:47 Routine care 588310595 Z34.90 Obesity 458134129 E66.9 [id number] Flor Caballero APRN 03 - [facility] t Office [address] [facility] [address] [place] [address] 04/30/2019 09:06:01 04/30/2019 12:12:40 Routine care 289433691 Z34.82 [id number] Alberta Brantley MD 03 - [facility] Office [address] [facility] [address] [place] [address] 05/07/2019 14:08:22 05/07/2019 17:12:55 Routine care 782969764 Z34.83 [id number] Sha Becker MD 03 - [facility] Office [address] [facility] [address] [place] [address] 05/15/2019 09:37:22 05/15/2019 14:13:52 Routine care 588280534 Z34.82 [id number] Sherrie Alford MD 09 - [facility] 100 Office [address] [facility] [address] [place] [address] 05/28/2019 14:08:45 05/28/2019 14:49:42 Routine care 952642198 Z34.90 [id number] Sherrie Alford MD 09 - [facility] 100 Office [address] [facility] [address] [place] [address] 05/28/2019 14:09:48 05/28/2019 15:12:57 Obesity 359667817 E66.9 Hypothyroi dism in 447728259 E03.9 [id number] Alberta Brantley MD 03 - [facility] Office [address] [facility] [address] [place] [address] 06/04/2019 08:39:49 06/04/2019 11:34:44 Routine care 237354889 Z34.82 36700430 Z34.9 3 Hypothyroi dism in 738745896 E03.9 Maternal o besity complicating , childbirth and the puerperium, antepartum 0066779998 07 O99.375 [id number] Danyell Hough MD 03 - [facility] Office [address] [facility] [address] [place] [address] 06/04/2019 09:30:27 06/04/2019 11:37:25 Routine care 459894306 Z34.90 [id number] Alberta Brantley MD 03 - [facility] Office [address] [place] [address] 06/04/2019 09:39:03 06/04/2019 11:36:25 Large for gestation age fetus 468856087 O35.8XX9 [id number] Sha Becker MD 03 - [facility] t Office [address] [facility] [address] [place] [address] 07/08/2019 09:24:02 07/08/2019 13:39:47 state 16596328 Z39.2 [id number] Alberta Brantley MD 03 - [facility] t Office [address] [facility] [address] [place] [address] 07/11/2019 14:11:53 07/12/2019 16:12:40 Contraception education 200830232 Z30.09 [id number] Cecelia Rodrigues MD 03 - [facility] t Office [address] [facility] [address] [place] [address] 07/31/2019 15:26:33 08/01/2019 16:21:54 state 28809847 Z39.2 Screening for malignant neoplasm of cervix 801232489 Z12.4 Contracept ion education 026652746 Z30.09 Pt still would like Mirena. As per Dr. Brantley, will schedule Mirena insertion under sonographi c guidance [id number] Noreen Mcfarlane APRN 03 - [facility] t Office [address] [facility] [address] [place] [address] 03/31/2022 14:12:10 03/31/2022 16:48:56 Amenorrhea 33050395 N91.1 not yet confirmed 4773644857 87286 Z32.00 [id number] Zach Mondragon MD 03 - [facility] t Office [address] [facility] [address] [place] [address] 03/31/2022 14:56:24 03/31/2022 16:49:45 Routine care 821622952 Z34.90 Health Concerns Section Related Observation LastModified by Organization Detai ls LastModified Time None Recorded Concern Status LastModified by Organization Details LastModified Time None Recorded Advance Directives Directive N: Payers Insurance Date Sequence Insurance Name Policy Number Policy Malagon Covered Member ID Malagon Member ID Guarantor Name 04/27/2022 1 [facility] (POS) [id number] Raya Mccabeasi [id number] Raya Mccabeasi 03/25/2019 1 [place] [id number] Raya Mccabeasi [id number] Raya Mathur 03/28/2022 1 [facility] (MEDICAID REPLACEMENT - HMO) Raya Mccabeasi [id number] Raya Mccabeasi 03/25/2019 1 [employer] [facility] 648 - SUPERMED (PPO) [id number] Munir Mccabeasi [id number] Raya Mccabeasi 04/20/2019 1 [employer] (PPO) Munir Mccabeasi [id number] Raya Mccabeasi 06/21/2019 3 [employer] (POS II) Raya Mccabeasi [id number] Raya Mccabeasi 03/25/2019 1 MEDICAL M[employer] (PPO) [id number] Raya Mccabeasi [id number] Raya Mccabeasi 04/20/2019 1 [employer] - MED[employer] (PPO) Munir Mccabeasi [id number] Raya Mathur Notes Date Note Type Note Provider Name and Address Organization Details Recorded Time 0 text/html VisitReported by PatientHPIFor onset/timing, patient reportsdate of delivery: 06/10/2019. For type of delivery, patient reportsnsvd. For context, patient reportsfeeding choice: breastandgood support from partner/family. For associated symptoms, patient reportsno complaints. For safety: depression score, patient reportsdepression questionnaire score <13.ContraceptionFor desired contraception, patient reportsintrauterine device (iud). Sha Becker MD [address] [facility],[address], [place], [address], [employer] - ORACLE PROGRAMMER ANALYST [facility] 07/09/2019 05:53:07 0 text/html Here for insertion of Mirena IUD. LMP 07/10/2019. Pt is 4.5 wks PP (S/P on 06/10/2019). She is . Alberta ascencio, [place] - [employer]ACLE PROGRAMMER ANALYST [facility] 07/11/2019 18:02:21 0 text/html VisitReported by PatientHPIFor onset/timing, patient reportsdate of delivery: 06/10/2019. For type of delivery, patient reportsnsvd. For context, patient reportsmedical complications of : none none none none,complications of labor: none none none none, andfeeding choice: breast and bottle. For associated symptoms, patient reportsno complaints. For safety: depression score, patient reportsdepression questionnaire score <13.ContraceptionFor desired contraception, patient reportsintrauterine device (iud).ROS as noted in the HPI 24yo P2 here for post- check. She [...] interested in an IUD. Cecelia Rodrigues MD [address] [facility],[address], [place], [address], [employer] - [employer]AC[employer] PROGRAMMER ANALYST [facility] 07/31/2019 16:41:49 3 text/html confirmationReported by PatientHPIFor associated symptoms, patient reportsbreast tenderness,nausea, andspotting since lmpbut reportsno headachesandno vomiting. For onset/timing, patient [id number] menses for 2-3 months. For quality, patient reportsmenstrual cycles are usually normal. For duration, patient reportsmenses normally last 3-7 days. For context, patient reportspositive test.ROS as noted in the HPI Patient is a 27 year old female here for confirmation. Positive urine test at home and in office today.Had a menstrual cycle on 01/01 and then 01/23 spotting. Took plan B on 02/19/22. Hx of pre-eclampsia on 2018 and PIH 2019. BP has been normal after each delivery. Has hypothyroidism. Has endo apt on 04/01/22 with [facility]. Noreen Mcfarlane, AWNING SPREADER [address], [place], [address], [employer] - [employer]ACLE PROGRAMMER ANALYST [facility] 03/31/2022 16:00:57 OBGyn Episode Ob Episode Information Episode Created Date Number of Fetuses Patient Bloodtype Patient rh Status Prepregnancy Weight lbs Domestic Partner Domestic Partner Phone Father Name Certified Dietary Manager Status 11/29/19 18 1 O Positive 215 CLOSED Fetus Data First Name Last Name Admitted to NICU Weight (g) Sex Living Outcome Pediatric Complications Fetus ID Race Codes Race Delivery Type 3827.18 25 M true Full Term [id number] Problems Problem Notes Problem Name Start Date End Date Resolution Snomed Code Not e Obesity 11/16/2017 [id number] Prepregna nt BMI>> Hypothyroidism 11/28/2017 [id number] Onse t ; 2 weeks after / placed on Syntroid 200mcg daily;Endocrine>>Dr Melisa Campbell -induced hypertension 04/29/2018 [id number] Body mass index 30+ - obesity 04/24/2018 [id number] Anemia of 04/24/2018 [id number] Juanjo Calculation Initial Juanjo Date Initial Exam [...] Sound Latest Days Gestation 11/17/19 18 0 [email or web address] 11/28/2017 05/27/19 19 0 Pre- Flowsheet Flowsheet Date 11/28/2017 Sweeney Score Blood Edema Fundus Height Fundus Units Glucose Ketones Leukocytes Nitrite Labor Signs Protein Cervic Dilation Cervic Effacement Cervic Station none 14 wks none negative Negative Other (see comments ) neg 0cm Type Weight in lbs Pre/Post Dialysis Refused Weight 202.069971276237 BP Diastolic BP Location Tested BP Systolic BP Type 66 110 sitting Fetus Heart Rate Present A 166 Present Fetus Movement Comments Patient is here for RPICC in take due to Hypothyroidism and Obesity ( BMI 36.7). 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 Patient complaining [...] Weight in lbs Pre/Post Dialysis Refused Weight 196.854717978931 BP Diastolic BP Location Tested BP Systolic [...] Weight in lbs Pre/Post Dialysis Refused Weight 202.510577075390 BP Diastolic BP Location Tested BP Systolic [...] Weight in lbs Pre/Post Dialysis Refused Weight 200.150868860651 BP Diastolic BP Location Tested BP Systolic [...] Weight in lbs Pre/Post Dialysis Refused Weight 205.520954663886 BP Diastolic BP Location Tested BP Systolic [...] Weight in lbs Pre/Post Dialysis Refused Weight 213.785078210740 BP Diastolic BP Location Tested BP Systolic [...] Weight in lbs Pre/Post Dialysis Refused Weight 216.28955935248 BP Diastolic BP Location Tested BP Systolic [...] Weight in lbs Pre/Post Dialysis Refused Weight 217.156693632897 BP Diastolic BP Location Tested BP Systolic [...] Weight in lbs Pre/Post Dialysis Refused Weight 226.559341659736 BP Diastolic BP Location Tested BP Systolic BP Type 89 122 Fetus Heart Rate Present Fetus Movement Comments Flowsheet Date 04/24/2018 Sweeney Score Blood Edema Fundus Height Fundus Units Glucose Ketones Leukocytes Nitrite Labor Signs Protein Cervic Dilation Cervic Effacement Cervic Station none 35 cm none negative Negative none trace Type Weight in lbs Pre/Post Dialysis Refused Weight 226.211290974089 BP Diastolic BP Location Tested BP Systolic [...] two occasions in the last 2 weeks. H labs sent today. Reports + FM today. [...] Weight in lbs Pre/Post Dialysis Refused Weight 229.966259755892 BP Diastolic BP Location Tested BP Systolic [...] Weight in lbs Pre/Post Dialysis Refused Weight 227.305411406128 BP Diastolic BP Location Tested BP Systolic [...] Weight in lbs Pre/Post Dialysis Refused Weight 227.566464314068 BP Diastolic BP Location Tested BP Systolic BP Type 98 130 Fetus Heart Rate Present Fetus Movement Comments Flowsheet Date 05/09/2018 Sweeney Score Blood Edema Fundus Height Fundus Units Glucose Ketones Leukocytes Nitrite Labor Signs Protein Cervic Dilation Cervic Effacement Cervic Station Type Weight in lbs Pre/Post Dialysis Refused Weight 226.999583905610 BP Diastolic BP Location Tested BP Systolic BP Type 97 125 Fetus Heart Rate Present Fetus Movement Comments Flowsheet Date 05/09/2018 Sweeney Score Blood Edema Fundus Height Fundus Units Glucose Ketones Leukocytes Nitrite Labor Signs Protein Cervic Dilation Cervic Effacement Cervic Station none 37 cm none negative Negative none trace 1cm 4 0% -2 Type Weight in lbs Pre/Post Dialysis Refused Weight 226.178656418520 BP Diastolic BP Location Tested BP Systolic BP Type 97 125 sitting Fetus Heart Rate Present A 140 Fetus Movement A Yes Comments Reactive NST today, irregula r UC not felt by pt. Denies LOF or VB. Reports + FM. Was seen at [facility] OB ED this past Monday for [...] Weight in lbs Pre/Post Dialysis Refused Weight 230.775883028267 BP Diastolic BP Location Tested BP Systolic BP Type 78 118 sitting Fetus Heart Rate Present Fetus Movement Comments Flowsheet Date 05/18/2018 Sweeney Score Blood Edema Fundus Height Fundus Units Glucose Ketones Leukocytes Nitrite Labor Signs Protein Cervic Dilation Cervic Effacement Cervic Station 1+ 39 cm none negative Negative none 1+ 1cm 20 % -3 Type Weight in lbs Pre/Post Dialysis Refused Weight 230.373954564050 BP Diastolic BP Location Tested BP Systolic BP Type 91 121 sitting Fetus Heart Rate Present A 145 Present Fetus Movement A Yes Comments IUP at 38.6 weeks. Reports + FM. Irregular contractions last night. Cervix as above. Denies LOF or VB. Denies s/s of pre-eclampsia. Reactive NST today. Has IOL scheduled tomorrow 6 pm [facility] for PIH at 39 weeks. Reviewed labor precautions, kick counts, and pre-eclampsia precautions. Flowsheet Date 05/18/2018 Sweeney Score Blood Edema Fundus Height Fundus Units Glucose Ketones Leukocytes Nitrite Labor Signs Protein Cervic Dilation Cervic Effacement Cervic Station Type Weight in lbs Pre/Post Dialysis Refused Weight 230.530739010043 BP Diastolic BP Location Tested BP Systolic [...] Palate false Cystic Fibrosis carrier false Thalassemia (English, Angolan, Mediterranean, Or Background): MCV < 80 false Sickle Cell Disease false AMA Patient Age Will Be 35 Y ears Or Older At Estimated Date of Delivery false Thalassemia (English, Angolan, Mediterranean, Or Background): MCV < 80 false Neural Tube Defect (Meningom yelocele, Spina Bifida, Or Anencephaly) false Congenital Heart Defect false Down Syndrome false Herbert-Sachs carrier (eg, Pentecostal, Cajun, English-Can adian) false Reid Disease false Sickle Cell [...] B Strep) POS false Fragile-X carrier false Pentecostal Panel POSITIVE false APA Father of baby [...] Post Complications Tubal Sterilization Discharge Date Comments [facility] idural 39.2 false WALKER 05/23/2018 PIH, HYPOTHYRO IDISM, ANEMIA Discharge Information Feeding Method Contraceptive Method Maternal HG B and HCT Levels Ob Episode Information Episode Created Date Number of Fetuses Patient Bloodtype Patient rh Status Prepregnancy Weight lbs Domestic Partner Domestic Partner Phone Father Name Certified Dietary Manager Status 11/14/19 19 1 O Positive CLOSED Fetus Data First Name Last Name Admitted to NICU Weight (g) Sex Living Outcome Pediatric Complications Fetus ID Race Codes Race Delivery Type 3316.89 15 F true Full Term [id number] Problems Problem Notes Hx of PIH last wit hout meds. NIPS: Horizon screen negative 10/2017; [id number] to be drawn after 10 weeks Problem Name Start Date End Date Resolution Snomed Code Not e Maternal obesity complicating , childbirth and the puerperium, antepartum 11/13/2018 [id number] Hypothyroidism 11/28/2017 [id number] Onse t ; 2 weeks after / [...] Latest Days Gestation 0 06/23/19 20 0 Pre-benita Flowsheet Flowsheet Date 11/13/2018 Sweeney Score Blood Edema Fundus Height Fundus Units Glucose Ketones Leukocytes Nitrite Labor Signs Protein Cervic Dilation Cervic Effacement Cervic Station none Type Weight in lbs Pre/Post Dialysis Refused Weight 211.331941466953 BP Diastolic BP Location Tested BP Systolic [...] drawn today. Hx of Hypothyroidism. Saw her washcoat wiper last week with thyroid function labs done [...] Weight in lbs Pre/Post Dialysis Refused Weight 208.372341711594 BP Diastolic BP Location Tested BP Systolic [...] . Reviewed NIPS: Horizon screen negative 10/2017; [id number] to be drawn after 10 weeks. RTO 3 weeks for NT US and visit. Flowsheet Date 12/11/2018 Sweeney Score Blood Edema Fundus Height Fundus Units Glucose Ketones Leukocytes Nitrite Labor Signs Protein Cervic Dilation Cervic Effacement Cervic Station none 12 cm none negative Negative none neg Type Weight in lbs Pre/Post Dialysis Refused Weight 206.455508483461 BP Diastolic BP Location Tested BP Systolic [...] Weight in lbs Pre/Post Dialysis Refused Weight 203.53816512524 BP Diastolic BP Location Tested BP Systolic BP Type 75 109 Fetus Heart Rate Present Fetus Movement Comments Flowsheet Date 01/01/2019 Sweeney Score Blood Edema Fundus Height Fundus Units Glucose Ketones Leukocytes Nitrite Labor Signs Protein Cervic Dilation Cervic Effacement Cervic Station none 17 cm none small Negative none trace Type Weight in lbs Pre/Post Dialysis Refused Weight 202.084444221475 BP Diastolic BP Location Tested BP Systolic [...] Weight in lbs Pre/Post Dialysis Refused Weight 207.246882426080 BP Diastolic BP Location Tested BP Systolic [...] Weight in lbs Pre/Post Dialysis Refused Weight 210.432280075209 BP Diastolic BP Location Tested BP Systolic BP Type 71 102 Fetus Heart Rate Present Fetus Movement Comments Flowsheet Date 02/06/2019 Sweeney Score Blood Edema Fundus Height Fundus Units Glucose Ketones Leukocytes Nitrite Labor Signs Protein Cervic Dilation Cervic Effacement Cervic Station none 20 cm none negative Negative none neg Type Weight in lbs Pre/Post Dialysis Refused Weight 208.418286884289 BP Diastolic BP Location Tested BP Systolic [...] Weight in lbs Pre/Post Dialysis Refused Weight 212.11439397699 BP Diastolic BP Location Tested BP Systolic BP Type 67 98 sitting Fetus Heart Rate Present A 140 Present Fetus Movement A Yes Comments Feeling well, no complaints. Reports active fetus. Denies cramping or vaginal bleeding. Has follow up Level 2 US and shira visit scheduled 03/12 to recheck placenta location. Has not been contacted with appt date for echo, I asked the frontload driver to call coordinator yoni/gustavo to call today [...] Weight in lbs Pre/Post Dialysis Refused Weight 215.245569142777 BP Diastolic BP Location Tested BP Systolic BP Type 70 105 Fetus Heart Rate Present Fetus Movement Comments Flowsheet Date 03/19/2019 Sweeney Score Blood Edema Fundus Height Fundus Units Glucose Ketones Leukocytes Nitrite Labor Signs Protein Cervic Dilation Cervic Effacement Cervic Station none 27 cm none moderate Negative none trace Type Weight in lbs Pre/Post Dialysis Refused Weight 217.181785691909 BP Diastolic BP Location Tested BP Systolic [...] of insurance and she cannot see her washcoat wiper now. Currently on Synthroid 250 mcg daily. [...] Weight in lbs Pre/Post Dialysis Refused Weight 217.889249138281 BP Diastolic BP Location Tested BP Systolic [...] Weight in lbs Pre/Post Dialysis Refused Weight 218.96388576797 BP Diastolic BP Location Tested BP Systolic BP Type 74 106 Fetus Heart Rate Present Fetus Movement Comments Flowsheet Date 04/16/2019 Sweeney Score Blood Edema Fundus Height Fundus Units Glucose Ketones Leukocytes Nitrite Labor Signs Protein Cervic Dilation Cervic Effacement Cervic Station none 32 cm none small Negative none neg Type Weight in lbs Pre/Post Dialysis Refused Weight 217.352289662324 BP Diastolic BP Location Tested BP Systolic [...] Weight in lbs Pre/Post Dialysis Refused Weight 222.902739323115 BP Diastolic BP Location Tested BP Systolic BP Type 59 95 Fetus Heart Rate Present Fetus Movement Comments Flowsheet Date 04/30/2019 Sweeney Score Blood Edema Fundus Height Fundus Units Glucose Ketones Leukocytes Nitrite Labor Signs Protein Cervic Dilation Cervic Effacement Cervic Station none 32 cm none negative Negative none neg Type Weight in lbs Pre/Post Dialysis Refused Weight 222.667485765746 BP Diastolic BP Location Tested BP Systolic [...] Weight in lbs Pre/Post Dialysis Refused Weight 224.392810641837 BP Diastolic BP Location Tested BP Systolic BP Type 85 L arm 122 sitting Fetus Heart Rate Present A 140 Present Fetus Movement A Yes Comments Has been having pelvic press ure, cramping and low back pain. Was seen at [facility] L&D for these sxs on 05/03/2019 [...] Weight in lbs Pre/Post Dialysis Refused Weight 225.459237813449 BP Diastolic BP Location Tested BP Systolic [...] Weight in lbs Pre/Post Dialysis Refused Weight 229.605162555990 BP Diastolic BP Location Tested BP Systolic BP Type 83 116 Fetus Heart Rate Present Fetus Movement Comments Flowsheet Date 06/04/2019 Sweeney Score Blood Edema Fundus Height Fundus Units Glucose Ketones Leukocytes Nitrite Labor Signs Protein Cervic Dilation Cervic Effacement Cervic Station trace 36 cm none negative Negative neg 0cm 2 0% -4 Type Weight in lbs Pre/Post Dialysis Refused Weight 230.608348751938 BP Diastolic BP Location Tested BP Systolic [...] low on 04/16. Pt reports seeing her washcoat wiper since then and her Synthroid was increased to 250 mcg per day. She had a repeat normal Free T4 in mid to late April with her washcoat wiper. Today, NST is reactive; no contractions present. [...] Weight in lbs Pre/Post Dialysis Refused Weight 230.057509298610 BP Diastolic BP Location Tested BP Systolic [...]
--- OUTSIDE RECORDS SUMMARY | 2024-09-19 10:06 | XMS_ITS | Encounter Summary ---
Author Organization [facility] tem Address [id number] [address] [place] [address] Care Team Providers Care Materials Engineering Technician Name Role Phone No Pcp, No Pcp Primary Care Provider Unavailabl e Encounter Details Date Type Department Care Team (Late st Contact Info) Description 08/24/2022 Orders Only Maternal- Medicine at [facility] [address] [place] [id number] Ref [place], [place] [address] Social History Tobacco Use Types Packs/Day Years [...] on filedocumented in this encounter Care Teams Materials Engineering Technician Relationship Specialty Start Date End Date No Pcp, [place] [address] PCP - General Family Medicine 04/28/22 documented as of this encounter
--- OUTSIDE RECORDS SUMMARY | 2024-09-19 10:07 | XMS_ITS | Encounter Summary ---
Author Organization [facility] Address [address] [place] [address] Care Team Providers Care Director Of Digital Technology Name Role Phone Unavailable Primary Care Provider Unavailabl e Encounter Details Date Type Department Care Team (Late Contact Info) Description 10/27/2022 Abstract [facility] [address] [place] [address] Carolina Stone LPN [address] [place] [id number] Social History Tobacco Use Types Packs/Day Years [...] Office Visit [facility] [address] [place] [id number] Allen Carr MD [address] [place] [address] 10/08/2024 1:50 PM EDT Routine [facility] [address] [facility] [place] [address] Ha Baker, [address] [place] [address] documented as of this encounter Visit Diagnoses Not on filedocumented in this encounter
--- OUTSIDE RECORDS SUMMARY | 2024-09-19 10:07 | XMS_ITS | Encounter Summary ---
Author Organization [facility] Address [address] [place] [address] Care Team Providers Care Ict Customer Support Officer Name Role Phone Unavailable Primary Care Provider Unavailabl e Encounter Details Date Type Department Care Team (Late Contact Info) Description 10/28/2022 Abstract [facility] [address] [place] [address] [place] [address] Calista Khan LPN Social History Tobacco [...] Office Visit [facility] [address] [place] [address] Allen Carr MD [address] [place] [address] 10/08/2024 1:50 PM EDT Routine [facility] [address] [facility] [place] [address] Ha Baker, [address] [place] [address] documented as of this encounter Visit Diagnoses Not on filedocumented in this encounter
--- OUTSIDE RECORDS SUMMARY | 2024-09-19 10:07 | XMS_ITS | Encounter Summary ---
Author Organization [facility] Address [address] [place] [address] Care Team Providers Care Point Of Care Specialist Name Role Phone Unavailable Primary Care Provider Unavailabl e Encounter Details Date Type Department Care Team (Late Contact Info) Description 10/20/2022 Abstract [facility] [address] [place] [address] [place] [address] Calista Khan LPN Social History Tobacco [...] Office Visit [facility] [address] [place] [address] Allen Carr MD [address] [place] [address] 10/08/2024 1:50 PM EDT Routine [facility] [address] [facility] [place] [address] Ha Baker, [address] [place] [address] documented as of this encounter Visit Diagnoses Not on filedocumented in this encounter
--- OUTSIDE RECORDS SUMMARY | 2024-09-19 10:13 | XMS_ITS | CCD ---
Author Organization [facility] CliniSyde Care Team Providers Care Senior Producer Name Role Phone Scar Bellamy Primary Care Provider SAMUEL ., DR HAYNES Consulting Unavailable SAMUEL ., DR HAYNES Attending Unavailable SAMUEL ., DR HAYNES Admitting Unavailable ZIEBER, DR CHRISTIANNE Amador Consulting Unavailable REQUEST, DR ESCAMILLA LISTED Consulting Unavaila ble SAMUEL ., DR HAYNES Consulting Unavailable SAMUEL ., DR HAYNES Attending Unavailable SAMUEL ., DR HAYNES Admitting Unavailable SAMUEL ., DR HAYNES Consulting Unavailable SAMUEL ., DR HAYNES Attending Unavailable SAMUEL ., DR HAYNES Admitting Unavailable dAdie Hernandez Unavailable JUICE Swanson Attending Provider Linda Swanson Unavailable JUICE Altman Attending Provider NON STAFF Primary Care Provider Unavailabl e JUICE Victoria Attending Provider Linda Swanson Attending Unavailable Linda Swanson Admitting Unavailable Diana Altman Admitting Unavailable Diana Altman Attending Unavailable Amanda Victoria Admitting Unavailable Amanda Victoria Attending Unavailable NON STAFF Primary Care Unavailable Unavailable Primary Care Provider Unavailabl e NO PCP, NO PCP Primary Care Unavailable ALISHA ORDONEZ Attending Unavailable IVY BAKER Attending Unavailable ALLEN BRIZUELA Attending Unavailable ALLEN BRIZUELA Referring Unavailable Allergies Allergy Classification Reported Allergen(s) Allergy Type Date of Onset Reaction(s) Facility Sulfonamides (antibiotic) (1 source) Sulfonamides (Antibiotic) Drug Allergy 07-03-19 19 Rash [facility] (6 sources) Erythromycin / sulfiSOXAZOLE Drug Allergy 08-12-19 15 rash [facility] Repository (1 source) Sulfonamides (Antibiotic) Drug allergy (disorder) 08-12-19 [facility] Repository (13 sources) Substance with sulfonamide structure and antibacterial mechanism of action (substance) Drug allergy 07-19-19 rash, Other [employer] Other (6 sources) sulfiSOXAZOLE; Translations: [sulfisoxazole] Drug Allergy 04-18-19 [facility] (7 sources) Sulfonamides (Antibiotic); Translations: [Sulfa (Sulfonamide Antibiotics)] Allergy to substance 08-19-19 [facility] (6 sources) erythromycin base; Translations: [erythromycin base] Allergy to substance 04-18-19 [facility] (8 sources) Sulfamethoxazole Propensity to adverse reactions 08-19-19 Rash [facility] (8 sources) Other Allergy to substance 10-21-19 Rash, Other [facility] Healthcare Work Phone: (1 source) Erythromycin / sulfiSOXAZOLE; Translations: [ERYTHROMYCIN-SULFI SOXAZOLE] Drug Allergy 08-19-19 [facility] Repository Medications Current Medications Medication Drug Class(es) Dates Sig (Normalized) Sig (Original) Albuterol (2 sources) beta2-Adrenergic Agonist Start: 11-20-2023 Albuterol Sulfate Active 2 INH INHALATION EVERY 4-6 HOURS 6.7 14 November 20, 2023 12:00am amoxicillin 875 mg / clavulanate 125 mg oral tablet (1 source) Penicillin-class Antibacterial Start: 08-15-2022 take 1 tablet by mouth every twelve hours Amoxicillin-Pot Clavulanate 875-125 MG 1 tablet Orally every 12 hrs for 10 day(s) Jul, Active Brompheniramine-Pse udoeph-Dm (Bromfed Dm) 2-30-10 mg/5 mL syrup (2 sources) Start: 11-20-2023 take 1 mL by mouth every four to six hours Brompheniramine-P seudoeph-Dm (Bromfed Dm) 2-30-10 mg/5 mL syrup Active 10 ML PO EVERY 4-6 HOURS 118 November 20, 2023 12:00am ciprofloxacin 0.003 mg/mg ophthalmic ointment (2 sources) Quinolone Antimicrobial Start: 01-30-2023 Ciloxan 0.3 % 1 application into the lower eyelid of affected eye left eye Twice a day for 7 days Jan, Active fluticasone propionate 0.05 mg/actuat metered dose nasal spray (8 sources) Corticosteroid Start: 08-15-2022 take 2 spray(s) nasal route once daily Fluticasone Propionate 50 MCG/ACT 2 sprays Nasally Once a day for 14 day(s) Jul, Active take 1 spray(s) nasal route once daily fluticasone (Flonase) 50 MCG/ACT nasal spray Administer 1 spray into each nostril Daily Shake gently. Before first use, prime pump. After use, clean tip and replace cap. Active levonorgestrel 0.428052 mg/hr intrauterine system (8 sources) Progestin, Progestin-containing Intrauterine Device Start: 12-26-2022 Levonorgestrel intrauterine device 52 mg levothyroxine sodium 0.3 mg oral tablet (20 sources) l-Thyroxine Start: 12-28-2022 End: 02-05-2025 take 1 tablet by mouth once daily Synthroid 300 MCG tablet Indications: Alfredo's disease , Thyroid disease during , first trimester (HCC) Take 1 tablet (300 mcg) by mouth Daily 90 tablet 1 08/09/2024 02/05/2025 Active Start: 07-03-2018 take 2 tablets by [facility] once daily SYNTHROID 125 mcg tablet Take 2 tablets by mouth once daily. 60 tablet 11 07/03/2018 Active take 1 tablet by [facility] once daily in the morning Synthroid 300 MCG 1 tablet in the morning on an empty stomach Orally Once a day for 30 days Active Synthroid 200 MC G Oral for 30 Days Active Comment on above: Take 2 tablets by mo [facility] once daily. Magnesium Oxide (1 source) Magnesium Oxide 400 (240 Mg) MG TAKE 1 TABLET BY MOUTH ONCE DAILY NEEDED FOR 30 DAYS Oral for 30 Days Active methylPREDNISolone 4 mg oral tablet (2 sources) Corticosteroid Start : 11-19 take 1 tablet by mouth once Methylprednisolone (Medrol (Maximus)) 4 mg tablets,dose pack Active 0 PO per package directions November 20, 2023 12:00am PO PER PKG DIR ondansetron 4 mg disintegrating oral tablet (4 sources) Serotonin-3 Receptor Antagonist Start : 08-26 End: 09-25 take 1 tablet by mouth every six hours as needed for nausea and vomiting and nausea and nausea ondansetron ODT (Zofran-ODT) 4 MG disintegrating tablet Indications: Nausea Take 1 tablet (4 mg) by mouth every 6 (six) hours if needed for nausea or vomiting 30 tablet 2 08/26/2024 09/25/2024 Active Start: 04-06-2023 take 1 tablet by [place] th every eight hours as needed Ondansetron HCl 8 MG 1 tablet Orally every 8 hours as needed for 7 days Mar, Active Ondansetron 4 MG Oral for 8 Days Active Adult Gummy/DHA/FA 0.4-25 MG (1 source) Adult Gummy/DHA/FA 0.4-25 MG CHEW AND SWALLOW 1 BY MOUTH ONCE DAILY FOR 30 DAYS Oral for 30 Days Active Vit-Fe Fumarate-FA ( Vitamins) 28-0.8 MG tablet (2 sources) Start: 08-26-2024 End: 08-26-2025 take 1 tablet by mouth once daily Vit-Fe Fumarate-FA ( Vitamins) 28-0.8 MG tablet Indications: Positive urine test ([facility]) Take 1 tablet by mouth Daily 30 tablet 3 08/26/2024 08/26/2025 Active Completed/Discontinued Medications Medication Drug Class(es) Dates Sig (Normalized) Sig (Original) dextromethorphan hydrobromide 15 mg / guaiFENesin 400 mg / pseudoephedrine hydrochloride 60 mg oral tablet (5 sources) alpha-Adrenergic Agonist, Uncompetitive I-cftxsj-U-aspartate Receptor Antagonist, Sigma-1 Agonist Start: 4 End: 4 take 4 tablets by mouth every twenty-four hours Pseudoephedrine-Dm- Guaifenesin (Capmist Dm) 60-15-400 mg tablet Discontinued 1 TAB PO EVERY 4-6 HOURS April 18, 2023 1:00am October 10, 2023 5:46pm do not exceed 4 doses per 24 hrs nitrofurantoin, macrocrystals 25 mg / nitrofurantoin, monohydrate 75 mg oral capsule (4 sources) Nitrofuran Antibacterial Start: 4 End: 4 take 1 capsule by mouth every twelve hours at mealtime Nitrofurantoin Monohyd/M-Cryst (Macrobid) 100 mg capsule Discontinued 100 MG PO Every 12 hours 10 October 10, 2023 12:00am November 20, 2023 1:06pm must administer with a meal/food phenazopyridine hydrochloride 200 mg oral tablet (4 sources) Start: 4 End: 4 take 1 tablet by mouth three times daily Phenazopyridine (Pyridium) 200 mg tablet Discontinued 200 MG PO Three times daily 9 October 10, 2023 12:00am November 20, 2023 1:06pm phentermine hydrochloride 37.5 mg oral tablet (8 sources) Sympathomimetic Amine Anorectic Start: 4 End: 5 take 1 tablet by mouth before mealtime phentermine (Adipex-P) 37.5 MG tablet Indications: Encounter for weight management Take 1 tablet (37.5 mg) by mouth in the morning. Take before meals. 90 tablet 08/07/2023 03/26/2024 Discontinued (Other) Pneumatic Walking Boot (3 sources) Start: Pneumatic Walking Boot Nov, Not-Taking Start: 12-13-2022 Pneumatic Walk ing Boot Nov, Active Problems Active Problems Problem Classification Problem Date Documented Da te Episodic/Chronic Allergic reactions (7 sources) Atopic dermatitis; Translations: [Atopic dermatitis, unspecified] Onset: 08-04-2005 05-13-2024 Chronic Asthma (7 sources) Asthma; Translations: [Unspecified asthma, uncomplicated] Onset: 02-18-2000 05-13-2024 Chronic Chronic obstructive pulmonary disease and bronchiectasis (2 sources) Bronchitis; Translations: [Bronchitis, not specified as acute or chronic] 11-20-2023 Episodic Genitourinary symptoms and ill-defined conditions (1 source) Dysuria; Translations: [Dysuria] Onset: 10-10-2023 Episodic Headache; including migraine (8 sources) Cluster headache; Translations: [Cluster headache syndrome, unspecified, not intractable] Onset: 07-26-2022 07-26-2022 Chronic Inflammation; infection of eye (except that caused by tuberculosis or sexually transmitteddisease) (1 source) Hordeolum externum left upper eyelid Episodic Joint disorders and dislocations; trauma-related (7 sources) Chondromalacia of patella; Translations: [Chondromalacia patellae, unspecified knee] Onset: 05-27-2009 05-13-2024 Chronic Menstrual disorders (9 sources) Missed period; Translations: [Irregular menstruation, unspecified] Onset: 07-26-2022 07-26-2022 Chronic Nutritional deficiencies (2 sources) Vitamin D deficiency; Translations: [Vitamin D deficiency, unspecified] 08-09-2024 Chronic Other complications of (7 sources) Maternal obesity complicating , childbirth and the puerperium, antepartum; Translations: [Obesity complicating , unspecified trimester] Onset: 11-13-2018 05-13-2024 Chronic Other complications of (2 sources) Thyroid disease in ; Translations: [Endocrine, nutritional and metabolic diseases complicating , first trimester] 08-09-2024 Episodic Other gastrointestinal disorders (1 source) Constipation, unspecified; Translations: [Constipation, unspecified] Onset: 09-01-2024 Episodic Other gastrointestinal disorders (1 source) Constipation Onset: 09-01-2024 Episodic Other injuries and conditions due to external causes (1 source) Injury, unspecified, initial encounter Episodic Other lower respiratory disease (2 sources) Cough; Translations: [Cough] 11-20-2023 Episodic Other nutritional; endocrine; and metabolic disorders (1 source) Obesity; Translations: [Obesity, unspecified] Onset: 11-16-2017 07-26-2022 Chronic Other nutritional; endocrine; and metabolic disorders (7 sources) Body mass index 30+ - obesity; Translations: [Obesity, unspecified] Onset: 11-16-2017 05-13-2024 Chronic Other nutritional; endocrine; and metabolic disorders (2 sources) Severe obesity; Translations: [Class 3 severe obesity due to excess calories without serious comorbidity with body mass index (BMI) of 40.0 to 44.9 in adult ([facility])] 08-09-2024 Chronic Other screening for suspected conditions (not mental disorders or infectious disease) (4 sources) Encounter for screening for malignant neoplasm of cervix; Translations: [ENC SCREENING MALIG NEOPLASM CERV] Onset: 07-26-2022 Episodic Other upper respiratory disease (7 sources) Allergic rhinitis; Translations: [Allergic rhinitis, unspecified] Onset: 02-18-2000 05-13-2024 Chronic Residual codes; unclassified (1 source) 20 weeks gestation of ; Translations: [20 WEEKS GESTATION OF ] Onset: 06-30-2022 Episodic Residual codes; unclassified (1 source) 9 weeks gestation of ; Translations: [9 weeks gestation of ] Onset: 09-01-2024 Episodic Sprains and strains (1 source) Sprain of unspecified ligament of left ankle, initial encounter Episodic Thyroid disorders (20 sources) Congenital hypothyroidism without goiter; Translations: [Congenital hypothyroidism without goiter] Onset: 1993 07-26-2022 Chronic Unclassified (1 source) Cough, unspecified; Translations: [Cough, unspecified] Onset: 11-20-2023 Unclassified (1 source) Injury, unspecified, initial encounter; Translations: [Injury, unspecified, initial encounter] Onset: 12-13-2022 Unclassified (8 sources) Unable to comply with treatment; Translations: [Unable to comply with treatment] Onset: 07-26-2022 07-26-2022 Unclassified (1 source) Constipated - 9 Weeks Onset: 09-01-2024 Urinary tract infections (6 sources) Acute urinary tract infection; Translations: [Urinary tract infection, site not specified] 10-10-2023 Episodic Viral infection (5 sources) Viral infection, unspecified; Translations: [Disease caused by nCo] Episodic Past or Other Problems Problem Classification Problem Date Documented Date Episodic/Chronic Acute bronchitis (7 sources) Acute bronchitis; Translations: [Acute bronchitis, unspecified] Onset: 05-13-2024 05-13-2024 Episodic Contraceptive and procreative management (11 sources) Patient encounter status; Translations: [Encounter for removal of intrauterine contraceptive device] Onset: 05-31-2023 03-26-2024 Episodic Deficiency and other anemia (8 sources) Anemia; Translations: [Anemia, unspecified] Onset: 07-26-2022 07-26-2022 Episodic Hypertension complicating ; childbirth and the puerperium (8 sources) -induced hypertension; Translations: [Gestational [-induced] hypertension without significant proteinuria, unspecified trimester] Onset: 04-29-2018 Resolved: 11-04-2022 11-28-2022 Episodic Immunizations and screening for infectious disease (15 sources) Contact with and (suspected) exposure to other viral communicable diseases; Translations: [Contact with or exposure to other viral diseases] Onset: 05-31-2023 Episodic Other complications of (8 sources) Anemia of ; Translations: [Anemia complicating , unspecified trimester] Onset: 04-24-2018 Resolved: 11-04-2022 11-28-2022 Chronic Other and delivery including normal (14 sources) Encounter for supervision of normal , unspecified, second trimester; Translations: [Encounter for supervision of normal , unspecified, unspecified trimester] Onset: 11-28-2017 Resolved: 11-04-2022 Episodic Other upper respiratory infections (15 sources) Acute sinusitis, unspecified; Translations: [Acute pharyngitis] Onset: 09-10-2009 Episodic Results Test Name Value Interpretation Reference Range Facil ity ALL CBC WITH AUTO DIFFon BASOPHILS ABSOLUTE AUTO 0.1 [facility] Basophils/100 WBC (Bld) 0.5 % 0.2 - 2.0 % [facility] Eosinophils/100 WBC (Bld) 1.2 % 0.9 - 7.0 % [facility] Erythrocyte distribution width (RBC) [Ratio] 12.6 % 11.0 - 15.0 % [facility] Hematocrit (Bld) [Volume fraction] 36.8 % 36.0 - 48.0 % [facility] Hemoglobin (Bld) [Mass/Vol] 12.6 g/dL 12.0 - 16.0 g/dL [facility] IMMATURE GRANULOCYTES ABS AUTO 0.05 High [facility] Immature granulocytes/100 WBC (Bld) 0.4 % 0.0 - 0.5 % [facility] Interpretation and review of laboratory results Abnormal [facility] LYMPHOCYTES ABSOLUTE AUTO 3.3 [facility] Lymphocytes/100 WBC (Bld) 28.5 % 20.5 - 60.0 % [facility] MCH (RBC) [Entitic mass] 28.8 pg 26.7 - 34.0 pg [facility] MCHC (RBC) [Mass/Vol] 34.2 g/dL 29.9 - 35.2 g/dL [facility] MCV (RBC) [Entitic vol] 84 fL 81.0 - 99.0 fL [facility] MONOCYTES ABSOLUTE AUTO 0.6 [facility] Monocytes/100 WBC (Bld) 5.5 % 1.7 - 12.0 % [facility] NEUTROPHILS ABSOLUTE AUTO 7.4 High [facility] Neutrophils/100 WBC (Bld) 63.9 % 43.0 - 75.0 % [facility] Platelet mean volume (Bld) [Entitic vol] 10.9 fL 9.5 - 13.5 fL [facility] TBH EO # 0.1 [facility]H PLT [address] [facility] RBC 4.[address] [facility] WBC 11.5 High [facility] HCG ( test) Ql (U)o n 09-05-2024 Interpretation and review of laboratory results Abnormal [facility] Preg Test, Ur Positive Negative [facility] US OB TRANSVAGINALon 025 US OB TRANSVAGINAL FINDINGS: A single intrauterine gestational sac is [...] mass present. Cervical length is 4.7cm, closed. IMPRESSION: Findings consistent with a live intrauterine gestation, current sonographic age of 8 weeks and 6 days resulting in an estimated date of delivery of April 11, 2025. TRANSCRIBED BY: ELECTRONICALLY SIGNED BY: Shlomo Luciano MD Normal Not Available Comment on above: Order Comment: US OB TRANSVAGINAL No LMP recorded. Urinalysis macro (dipstick) panel (U)on 09-05-2024 Bilirubin, UA Negative Negative - 4(70) +++ mg/dL [facility] Blood, UA Negative Negative - 50 John/mcL [facility] Clarity, UA Clear [facility] Color, UA Yellow [facility] Glucose, UA Negative Negative - 2000(110) ++++ mg/dL [facility] Interpretation and review of laboratory results Normal [facility] Ketones, UA Negative Negative - 160(16) ++++ mg/dL [facility] Leukocytes, UA Negative Negative - 500+++ Anderson/mcL [facility] Nitrite, UA Negative Negative - Positive [facility] pH, UA 6 5 - 9 [facility] Protein, UA Negative Negative - 2000(20) ++++ mg/dL [facility] Spec Grav, UA 1.02 1 - 1.03 [facility] Urobilinogen, UA 1.0 0.2 - 12 mg/dL [facility] POCT NURSING URINE MACROSCOP IC UAon 09-02-2024 BILIRUBIN ROX Negative Normal Negative [facility] Comment on above: Performed By: #### N UM #### [facility] ([address] [place] [address] VIR BLOOD/HGB ROX Trace Abnormal Negative [facility] Comment on above: Performed By: #### N UM #### [facility] ([address] [place] [address] VIR GLUCOSE ROX Negative Normal Negative [facility] Comment on above: Performed By: #### N UM #### [facility] ([address] [place] [address] VIR KETONES ROX Negative Normal Negative [facility] Comment on above: Performed By: #### N UM #### [facility] ([address] [place] [address] VIR LEUKOCYTE ESTERASE ROX Negative Normal Negative [facility] Comment on above: Performed By: #### N UM #### [facility] ([address] [place] [address] VIR NITRITE ROX Negative Normal Negative [facility] Comment on above: Performed By: #### N UM #### [facility] ([address] [place] [address] VIR PH ROX 6.0 Normal 5.0, 6.0, 6.5, 7.0, 7.5, 8.0, 8.5, 5.5 [facility] Comment on above: Performed By: #### N UM #### [facility] ([address] [place] [address] VIR PROTEIN ROX Negative Normal Negative [facility] Comment on above: Performed By: #### N UM #### [facility] ([address] [place] [address] VIR SPECIFIC GRAVITY ROX >=1.030 Abnormal 1.010, 1.015, 1.020, 1.025 [facility] Comment on above: Performed By: #### N UM #### [facility] ([address] [place] [address] VIR UROBILINOGEN ROX 0.2 E.U./dL Normal [facility] Comment on above: Performed By: #### N UM #### [facility] ([address] [address] VIR POCT , URINE (NUCG) on 09-02-2024 Beta HCG ( test) Ql (U) Positive Abnormal Negative, Indeterminate [facility] Comment on above: Performed By: #### N UCG #### [facility] ([address] [place] [address] VIR TBH PREG QUANT HCGon 025 HCG QUANTITATIVE 74594 mIU/mL [facility] Comment on above: 5-50 0.2-1 WEEK 50-500 1-2 WEEKS 100-5,000 2-3 WEEKS 500-10,000 3-4 WEEKS 1,000-50,000 4-5 WEEKS 10,000-100,000 5-6 WEEKS 15,000-200,000 6-8 WEEKS 10,000-100,000 2-3 MONTHS [facility] TBH PREG QUANT HCGon 025 HCG QUANTITATIVE 88262 mIU/mL [facility] Comment on above: 5-50 0.2-1 WEEK 50-500 1-2 WEEKS 100-5,000 2-3 WEEKS 500-10,000 3-4 WEEKS 1,000-50,000 4-5 WEEKS 10,000-100,000 5-6 WEEKS 15,000-200,000 6-8 WEEKS 10,000-100,000 2-3 MONTHS [facility] IUD Removalon 03-26-2024 Brandy GaleanaNARCIOS 03/27/2024 12:35 PM IUD Removal Date/Time: 03/26/2024 1:59 PM Performed by: Ivy Baker DO Authorized by: Ivy Baker DO Consent: Consent obtained: Written Consent given by: Patient Procedure risks and benefits discussed: yes Patient questions answered: yes Patient agrees, verbalizes understanding, and wants to proceed: yes Educational handouts given: yes Instructions and paperwork completed: yes [place] protocol: Patient states understanding of procedure being performed: yes Relevant documents present and verified: yes Test results available and properly labeled: yes Imaging studies available: yes Required blood products, implants, devices, and special equipment available: yes Site marked: yes Procedure: Removed with no complications: yes Removal due to mechanical complications of IUD: no Removal due to infection and inflammatory reaction: no Comments: IUD Removal: Patient presents today for removal of IUD. Written consent was obtained and patient was placed in dorsal lithotomy position with feet in stirrups. A sterile speculum was inserted into the vagina and the cervix was visualized. The IUD strings were grasped gently with forceps and the IUD was removed in its entirety without difficulty. The IUD was shown to the patient then properly discarded. Follow Up: Patient is to return to the office for annual exam unless needed otherwise [facility] No Panel InformationOrdered By: Amanda Victoria on 11-20-2023 COVID Antigen (POC) [facility] Quick Strep (POC) [facility] XR chest 2V*on 11-20-2023 XR chest 2V* [facility] [address] XRay Report Signed Patient: Brittnee Smith MR#: [id number] 11 : 1995 Acct:[id number] Age/Sex: 28 / F ADM Date: 11/20/23 Loc: XDUCLY Room: Type: [facility] CLI Attending Dr: Amanda Victoria APRN Copies to: M Esme, VIDEOTAPE RECORDING ENGINEER Ordering Provider: Amanda Victoria APRN Date of Service: 11/20/23 XR/XR chest 2V*: COUGH Chest 2 views CLINICAL HISTORY: Productive cough chest congestion for 3 weeks. COMPARISON: None FINDINGS: Heart normal size. Lungs are clear. No free air. XR/XR chest 2V* IMPRESSION: NO ACUTE CARDIOPULMONARY ABNORMALITY. Impression dictated by: Shlomo De Anda Jr., DJordyn11/20/2023 2:04 PM Dictation Location: [place] [address] Transcribed By: [facility] 11/20/23 1404 Dictated By: Shlomo De Anda Jr, DO 11/20/23 1403 Signed By: 11/20/23 140 Normal [facility] Laboratory - Chemistry and C hemistry - challengeon 10-10-2023 Bilirubin Ql (U) Negative [facility] Glucose (U) [Mass/Vol] Negative [facility] Ketones Ql (U) Negative [facility] pH (U) 7.0 [pH] [facility] Specific gravity (U) [Rel density] 1.030 [facility] Urobilinogen (U) [Mass/Vol] 0.2 mg/dL [facility] Laboratory - Specimen inform ationon 10-10-2023 Appearance (U) cloudy [facility] Color (U) yellow [facility] Laboratory - Urinalysison Leukocyte esterase Test strip Ql (U) small [facility] Nitrite Ql (U) Positive [facility] Protein Ql (U) 100 [facility] No Panel Informationon 10-09 Urine Occult Blood large [facility] Urine Cultureon 10-10-2023 Bacteria identified Cx Nom (U) ORGANISM: Escherichia coli (O:ESCCOL) Tibbie Count >100,000 Aerobic MEENA Charge (NMIC56) ------ SUSCEPTIBILITY ----- ORGANISM: O:ESCCOL ANTIBIOTIC INTERPRETATION MEENA Amikacin S <16 Amoxacillin/K Clavulanate S <8 Ampicillin S <8 Ampicillin/Sulbacta m S <4 Aztreonam S <4 Cefazolin S <2 Cefepime S <2 Ceftazidime S <1 Ceftazidime/Avibact am S <4 Ceftolozane/Tazobac macias S <2 Ceftriaxone S <1 Cefuroxime S <4 Ciprofloxacin S <0.25 Ertapenem S <0.5 Gentamicin S <2 Levofloxacin S <0.5 Meropenem S <1 Meropenem/Vaborbact am S <2 Nitrofurantoin S <32 Piperacillin/Tazoba ctam S <8 Tetracycline S <4 Tigecycline S <2 Tobramycin S <2 Trimethoprim/Sulfam ethoxazole S <0.5 S = SUSCEPTIBLE I = INTERMEDIATE R = RESISTANT BLANK = DATA NOT AVAILABLE, OR DRUG NOT ADVISABLE OR TESTED R* = RESISTANCE DUE TO EXTENDED SPECTRUM BETA-LACTAMASES ESBL = EXTENDED SPECTRUM BETA-LACTAMASE TFG = THYMIDINE-DEPENDENT STRAIN ANUPAM = BETA-LACTAMASE POSITIVE IB = INDUCIBLE BETA-LACTAMASE. APPEARS IN PLACE OF 'S' WITH SPECIES KNOWN TO POSSESS INDUCIBLE BETA-LACTAMASES. POTENTIALLY THEY MAY BECOME RESISTANT TO ALL B-LACTAM DRUGS. PERFORMED BY: [place] [address] PATHOLOGIST DECORATOR HAND ROXANNE DIETRICH M.D. Normal [facility] Comment on above: Performed By: #### C UU #### [address] Urine culture routineOrdered By: Diana Altman on 10-10-2023 Bacteria identified Cx Nom (U) Escherichia coli Abnormal [facility] No Panel InformationOrdered By: Linda Swanson on 04-18-2023 COVID/Influenza Antigen (POC) [facility] COVID/FLU/RSV RT-PCRon 04-06 SARS-CoV-2 (COVID-19) RNA NICHOLE+probe Ql (Unsp spec) Negative [facility] [employer] Other COVID/FLU/RSV RT-PCR Negative [facility] [employer] Other XR ankle LT min 3V*on 2022 XR ankle LT min 3V* [facility] [employer] Other XR ankle LT min 3V* [facility] [employer] Other XR ankle LT min 3V* [address] [employer] Other XR ankle LT min 3V* MATTHEW Bhakta [address] [place] [employer] Other XR ankle LT min 3V* XRay Report [facility] [employer] Other XR ankle LT min 3V* Signed [employer] Other XR ankle LT min 3V* Patient: Brittnee Smith MR#: [id number] [place] [employer] Other XR ankle LT min 3V* 11 [employer] Other XR ankle LT min 3V* : 1995 Acct:[id number] [employer] Other XR ankle LT min 3V* Age/Sex: 27 / F ADM Date: 12/13/22 [employer] Other XR ankle LT min 3V* Loc: XDUCLY Room: Type: REG CLI [employer] Other XR ankle LT min 3V* Attending Dr: Linda Swanson VIDEOTAPE RECORDING ENGINEER [employer] Other XR ankle LT min 3V* Copies to: Linda Swanson APRN [employer] Other XR ankle LT min 3V* Ordering Provider: Linda Swanson APRN [employer] Other XR ankle LT min 3V* Date of Service: 12/13/22 [employer] Other XR ankle LT min 3V* XR/XR ankle LT min 3V*: T14.90XA [employer] Other XR ankle LT min 3V* LEFT ANKLE - 3 views [employer] Other XR ankle LT min 3V* CLINICAL DATA: Patient fell down stairs injuring left ankle today. Generalized pain and swelling. [employer] Other XR ankle LT min 3V* COMPARISON: None [employer] Other XR ankle LT min 3V* AP, lateral and oblique views were obtained. There is no evidence of fracture or dislocation. The [employer] Other XR ankle LT min 3V* talar dome is intact. A tiny plantar calcaneal spur is present. There is mild diffuse soft tissue [employer] Other XR ankle LT min 3V* swelling, greater anteriorly. [employer] Other XR ankle LT min 3V* XR/XR ankle LT min 3V* [employer] Other XR ankle LT min 3V* IMPRESSION: [employer] [place] Other XR ankle LT min 3V* NO ACUTE BONY INJURY. [employer] Other XR ankle LT min 3V* Impression dictated by: Brandy Shields M.D.12/13/2022 9:49 AM [employer] Other XR ankle LT min 3V* Dictation Location: [place] [address] [employer] Other XR ankle LT min 3V* Transcribed By: [facility] 12/13/22948 [employer] Other XR ankle LT min 3V* Dictated By: Brandy Shields MD 12/13/2247 [employer] Other XR ankle LT min 3V* Signed By: [employer] Other XR ankle LT min 3V* 12/13/22 09 No rt [employer] Other XR ankle LT min 3V* [facility] Main [place] [address] [place] [address] XRay Report Signed Patient: Brittnee Smith MR#: [id number] 11 : 1995 Acct:[id number] Age/Sex: 27 / F ADM Date: 12/13/22 [facility] Type[facility] Attending Dr: Linda Swanson APRN Copies to: [...] Brandy Shields M.D.12/13/2022 9:49 AM Dictation Location: [place] [address] Transcribed By: [facility] 12/13/22948 Dictated By: Brandy Shields MD 12/13/22946 Signed By: 12/13/22948 Normal [facility] AFP MATERNAL FOR SPINA BIFID Aon 07-01-2022 AFP MoM 0.73 Normal [facility] Comment on above: Result Comment: This is a corrected report. The previously reported result was: AFP MoM See interpretation. 06/29/2022 Performed By: #### A FPMAT #### [facility] [address] [address] [address] Cathleen Godwin AFP Value 35.4 ng/mL Normal [facility] Comment on above: Performed By: #### A FPMAT #### [facility] [address] [place] [address] [address] Cathleen Godwin AFP, Serum for Spina Bifida Comment Normal [facility] Comment on above: Result Comment: The MOM and risk factors of this report have been modified based on new information supplied to us by the client or their designated benefits representative. The Weight was changed from Not provided. to 222. This is a corrected report. The previously reported result was: Results Report 06/29/2022 Performed By: #### A FPMAT #### [facility] [address] [place] [address] Dr. Cathleen Godwin Comment Comment Normal [facility] Comment on above: Result Comment: Bruna Hollingsworth, Ph.D., [facility] Director . References: Available Upon Request. . Multiples Of Median Cutoffs For AFP Elevations Wolfe 2.5 Black 2.8 IDD 2.0 Twins 4.5 Abbreviation Definitions IDD - Insulin Dep Diabetes OSBR - Open Spina Bifida Risk . For further inquiries contact [facility] at [phone]. . This test was developed and its performance characteristics determined by [employer]. It has not been cleared or approved by the Food and Drug Administration. Performed By: #### A FPMAT #### [facility] [address] [place] [address] Dr. Cathleen Godwin Gest Age Collection Date 20.4 weeks Normal [facility] Comment on above: Performed By: #### A FPMAT #### [facility] [address] [place] [address] Dr. Cathleen Godwin Gestat, Age Based on Ultrasound Normal [facility] Comment on above: Result Comment: 20.4 on 06/27/2022 Recalculations are not recommended when gestational dating by LMP and ultrasound are within 10 days. Performed By: #### A FPMAT #### [facility] [address] [place] [address] Dr. Cathleen Godwin Insulin Dep Diabetes No Normal [facility] Comment on above: Performed By: #### A FPMAT #### [facility] [address] [place], [place] [address] Dr. Cathleen Godwin Interpretation Comment Normal [facility] Comment on above: Result Comment: Inte [...] Customer Services to discuss available options. The [employer] recommends amniocentesis [...] information. Performed By: #### A FPMAT #### [facility] [address] [place] [address] Dr. Cathleen Godwin [age] Normal [facility] Comment on above: Performed By: #### A FPMAT #### [facility] [address] [address] [address] Cathleen Godwin Multiple Gestation No Normal [facility] Comment on above: Performed By: #### A FPMAT #### [facility] [address] [place] [address] Dr. Cathleen Godwin [place] [address] Normal [facility] Comment on above: Result Comment: This is a corrected report. The previously reported result was: OSBR Risk 1 [place] See interpretation. 06/29/2022 Performed By: #### A FPMAT #### [facility] [address] [place] [address] Dr. Cathleen Godwin PDF . Normal [facility] Comment on above: Performed By: #### A FPMAT #### [facility] [address] [place] [address] Dr. Cathleen Godwin Race Normal [facility] Comment on above: Performed By: #### A FPMAT #### [facility] [address] [place] [address] Dr. Cathleen Godwin Test Results: Negative Normal [facility] Comment on above: Result Comment: This is a corrected report. The previously reported result was: Test Results: See interpretation. 06/29/2022 Performed By: #### A FPMAT #### [facility] [address] [place] [address] Dr. Cathleen Godwin HEP B SURFACE ANTIGEN SCREEN on 06-28-2022 HBsAg Screen Negative Normal Negative [facility] Comment on above: Performed By: #### H BSANS #### [facility] [address] [place] [address] Dr. Cathleen Godwin HEPATITIS C VIRUS AB W/ REFL EX QUANTon 06-28-2022 HCV AB Non-Reactive Normal Non Reactive [facility] Comment on above: Performed By: #### H CVPCRR #### [facility] [address] [place] [address] Dr. Cathleen Godwin Interpretation: Comment Normal [facility] Comment on above: Result Comment: Not infected with HCV unless early or acute infection is suspected (which may be delayed in an immunocompromised individual), or other evidence exists to indicate HCV infection. Performed By: #### H CVPCRR #### [facility] [address] [place] [address] Dr. Cathleen Godwin HIV 1 AND 2 WITH REFLEXon HIV Screen 4th Generation wRfx Non-Reactive Normal Non Reactive [facility] Comment on above: Result Comment: HIV Negative HIV-1/HIV-2 antibodies and HIV-1 p24 antigen were NOT detected. There is no laboratory evidence of HIV infection. Performed By: #### H IV12 #### [facility] [address] [place] [address] Dr. Cathleen Godwin RPR QUANTon 06-28-2022 Rapid Plasma Reagin, Quant Non-Reactive Normal NonRea<1:1 [facility] Comment on above: Result Comment: Plea Note: This test does not meet current guidelines for screening and diagnosis of syphilis. This test is intended for following treatment response in patients being treated for syphilis infection. To screen for syphilis infection, a reflex cascade that includes both RPR and a treponema-specific assay should be utilized, such as Treponema pallidum (Syphilis) Screening [place] (404600) or Rapid Plasma Reagin (RPR) Test With Reflex to Quantitative RPR and Confirmatory Treponema pallidum Antibodies (663867). Performed By: #### R PRQ #### [facility] [address] [place] [address] Dr. Cathleen Godwin RUBELLA AB IGGon 06-28-2022 Rubella Antibodies, IgG 1.39 index Normal Immune >0.99 [facility] Comment on above: Result Comment: Non- immune <0.90 Equivocal 0.90 - 0.99 Immune >0.99 Performed By: #### R UBIGG ####[facility] [address] [place] [address]Dr. Cathleen Godwin CBC AUTO DIFFon 06-27-2022 BASO # 0.0 103/ul Normal 0.0-0.1 [facility] Comment on above: Performed By: #### C BC #### [facility] [address] [place] [address] Dr. Cathleen Godwin Basophils/100 WBC (Bld) 0.3 % Normal 0.2-2.0 [facility] Comment on above: Performed By: #### C BC #### [facility] [address] [place] [address] Dr. Cathleen Godwin EO # 0.2 103/ul Normal 0.0-0.7 [facility] Comment on above: Performed By: #### C BC #### [facility] [address] [place] [address] Dr. Cathleen Godwin Eosinophils/100 WBC (Bld) 1.3 % Normal 0.9-7.0 [facility] Comment on above: Performed By: #### C BC #### [facility] [address] [place] [address] Dr. Cathleen Godwin Erythrocyte distribution width (RBC) [Ratio] 13.2 % Normal 11.0-15.0 [facility] Comment on above: Performed By: #### C BC #### [facility] [address] [place] [address] Dr. Cathleen Godwin Hematocrit (Bld) [Volume fraction] 32.9 % Critically low 36.0-48.0 [facility] Comment on above: Performed By: #### C BC #### [facility] [address] [place] [address] Dr. Cathleen Godwin Hemoglobin (Bld) [Mass/Vol] 11.3 g/dL Critically low 12.0-16.0 [facility] Comment on above: Performed By: #### C BC #### [facility] [address] [place] [address] Dr. Cathleen Godwin IG # 0.18 10e3/ul Critically high 0.00-0.03 [facility] Comment on above: Performed By: #### C BC #### [facility] [address] [place] [address] Dr. Cathleen Godwin IG % 1.6 % Critically high 0.0-0.5 [facility] Comment on above: Performed By: #### C BC #### [facility] [address] [place] [address] Dr. Cathleen Godwin LYMPH # 2.6 103/ul Normal 1.2-3.8 [facility] Comment on above: Performed By: #### C BC #### [facility] [address] [place] [address] Dr. Cathleen Godwin Lymphocytes/100 WBC (Bld) 22.5 % Normal 20.5-60.0 [facility] Comment on above: Performed By: #### C BC #### [facility] [address] [place] [address] Dr. Cathleen Godwin MANUAL DIFF REQ NO Normal [facility] Comment on above: Performed By: #### C BC #### [facility] [address] [place] [address] Dr. Cathleen Godwin MCH (RBC) [Entitic mass] 29.4 pg Normal 26.7-34.0 [facility] Comment on above: Performed By: #### C BC #### [facility] [address] [place] [address] Dr. Cathleen Godwin MCHC (RBC) [Mass/Vol] 34.3 g/dL Normal 29.9-35.2 [facility] Comment on above: Performed By: #### C BC #### [facility] [address] [place] [address] Dr. Cathleen Godwin MCV (RBC) [Entitic vol] 85.5 fL Normal 81.0-99.0 [facility] Comment on above: Performed By: #### C BC #### [facility] [address] [place] [address] Dr. Cathleen Godwin MONO # 0.5 103/ul Normal 0.3-0.8 [facility] Comment on above: Performed By: #### C BC #### [facility] [address] [place] [address] Dr. Cathleen Godwin Monocytes/100 WBC (Bld) 4.5 % Normal 1.7-12.0 [facility] Comment on above: Performed By: #### C BC #### [facility] [address] [place] [address] Dr. Cathleen Godwin NEUT # 8.1 103/ul Critically high 1.4-6.5 [facility] Comment on above: Performed By: #### C BC #### [facility] [address] [place] [address] Dr. Cathleen Godwin Neutrophils/100 WBC (Bld) 69.8 % Normal 43.0-75.0 [facility] Comment on above: Performed By: #### C BC #### [facility] [address] [place] [address] Dr. Cathleen Godwin Platelet mean volume (Bld) [Entitic vol] 10.8 fL Normal 9.5-13.5 [facility] Comment on above: Performed By: #### C BC #### [facility] [address] [address] [address] Cathleen Godwin PLT 223 103/ul Normal 150-450 [facility] Comment on above: Performed By: #### C BC #### [facility] [address] [address] [address] Cathleen Godwin RBC 3.85 106/ul Critically low 4.20-5.40 [facility] Comment on above: Performed By: #### C BC #### [facility] [address] [address] [address] Cathleen Godwin WBC 11.5 103/ul Critically high 4.0-11.0 [facility] Comment on above: Performed By: #### C BC #### [facility] [address] [address] [address] Cathleen Godwin CULTURE URINEon 06-27-2022 CULTURE URINE Culture Observations: LIGHT GROWTH OF MIXED GENITAL KASIA. NO POTENTIAL PATHOGENS SEEN. Normal [facility] Comment on above: Performed By: #### U RCX ####[facility] [address] [place] [address]Dr. Cathleen Godwin GLYCOHEMOGLOBIN A1Con 2022 ADA RECOMMENDATION SEE BELOW Normal [facility] Comment on above: Result Comment: ADA RECOMMENDED LIMIT 4.0 - 6.0 ADA THERAPEUTIC TARGET < 7.0 ACTION SUGGESTED > 7.0 Performed By: #### A 1C #### [facility] [address] [address] [address] Cathleen Godwin Glucose [Mass/Vol] 114 mg/dL Normal [facility] Comment on above: Performed By: #### A 1C #### [facility] [address] [address] [address] Cathleen Godwin HbA1c (Bld) [Mass fraction] 5.6 % Normal 4.5-6.2 [facility] Comment on above: Performed By: #### A 1C #### [facility] [address] [address] [address] Cathleen Godwin TSHon 06-27-2022 TSH 14.370 uIU/mL Critically high 0.358-3.740 [facility] Comment on above: Performed By: #### T SH #### [facility] [address], [place] [address] Dr. Cathleen Godwin TYPE AND SCREENon 06-27-2022 TYPE AND SCREEN Negative Normal [facility] Comment on above: Performed By: #### T NS #### [facility] [address], [place] [address] Dr. Cathleen Godwin US PREG ANATOMY SINGLEon [...] by: CHRISTIANNE ULLOA Date: 2022-06-27 15:17 Normal [facility] Vital Signs Date Time Vital Sign Value Performing Clinician Facility 09-05-2024 14:05-0400 Body mass index (BMI) [Ratio] 39.2 kg/m2 [facility] 09-05-2024 14:05-0400 Body weight 103.6 kg [facility] 08-09-2024 11:20-0400 Body height 162.6 cm Allen Brizuela MD Work Phone: [facility] 08-09-2024 11:20-0400 Body mass index (BMI) [Ratio] 40.17 kg/m2 Allen Brizuela MD Work Phone: [facility] 08-09-2024 11:20-0400 Body weight 106.14 kg Allen Brizuela MD Work Phone: [facility] 08-09-2024 11:20-0400 Heart rate 93 /min Allen Brizuela MD Work Phone: [facility] 08-09-2024 11:20-0400 Respiratory rate 16 /min Allen Brizuela MD Work Phone: [facility] 08-09-2024 11:20-0400 SaO2% (BldA) [Mass fraction] 99 % Allen Brizuela MD Work Phone: [facility] 03-26-2024 13:29-0500 Body mass index (BMI) [Ratio] 40.94 kg/m2 Ivy Samuel DO Work Phone: [facility] 03-26-2024 13:29-0500 Body weight 104.83 kg Ivy Samuel DO Work Phone: [facility] 03-26-2024 13:29-0500 Diastolic blood pressure 74 mm[Hg] Ivy Samuel DO Work Phone: [facility] 03-26-2024 13:29-0500 Systolic blood pressure 116 mm[Hg] Ivy Samuel DO Work Phone: [facility] 11-20-2023 13:08-0400 Body height 162.56 cm JUICE Altman Work Phone: [facility] 11-20-2023 13:08-0400 Body mass index (BMI) [Ratio] 38.7 kg/m2 JUICE Altman Work Phone: [facility] 11-20-2023 13:08-0400 Body temperature 97.9 [degF] JUICE Ortiz Anupama Work Phone: [facility] 11-20-2023 13:08-0400 Body weight 102.51 kg JUICE Ortiz Anupama Work Phone: [facility] 11-20-2023 13:08-0400 Diastolic blood pressure 75 mm[Hg] VIDEOTAPE RECORDING ENGINEER Diana Anupama Work Phone: [facility] 11-20-2023 13:08-0400 Heart rate 80 /min VIDEOTAPE RECORDING ENGINEER Diana Anupama Work Phone: [facility] 11-20-2023 13:08-0400 SaO2% (BldA) [Mass fraction] 98 % VIDEOTAPE RECORDING ENGINEERJarek Altman Work Phone: [facility] 11-20-2023 13:08-0400 Systolic blood pressure 110 mm[Hg] JUICE Ortiz Anupama Work Phone: [facility] 10-10-2023 17:54-0400 Body height 162.[address] [facility] 10-10-2023 17:54-0400 Body mass index (BMI) [Ratio] 37.6 kg/m2 [facility] 10-10-2023 17:54-0400 Body temperature 98.2 [degF] [facility] 10-10-2023 17:54-0400 Body weight 99.[address] [facility] 10-10-2023 17:54-0400 Diastolic blood pressure 82 mm[Hg] [facility] 10-10-2023 17:54-0400 Heart rate 90 /min [facility] 10-10-2023 17:54-0400 Respiratory rate 18 /min [facility] 10-10-2023 17:54-0400 SaO2% (BldA) [Mass fraction] 96 % [facility] 10-10-2023 17:54-0400 Systolic blood pressure 122 mm[Hg] [facility] 04-18-2023 11:10-0500 Body height 162.[address] [facility] 04-18-2023 11:10-0500 Body mass index (BMI) [Ratio] 38.6 kg/m2 [facility] 04-18-2023 11:10-0500 Body temperature 98.2 [degF] [facility] 04-18-2023 11:10-0500 Body weight 102.[address] [facility] 04-18-2023 11:10-0500 Heart rate 95 /min [facility] 04-18-2023 11:10-0500 Respiratory rate 16 /min [facility] 04-18-2023 11:10-0500 SaO2% (BldA) [Mass fraction] 99 % [facility] 04-06-2023 09:05-0500 Body height 160.02 cm Linda Swanson Other [facility] [employer] Other 04-06-2023 09:05-0500 Body mass index (BMI) [Ratio] 38.97 kg/m2 Linda Swanson Other [facility] [employer] Other 04-06-2023 09:05-0500 Body temperature 99.1 [degF] Linda Swanson Other [employer] Other 04-06-2023 09:05-0500 Body weight 99.79 kg Linda Swanson Other [employer] Other 04-06-2023 09:05-0500 Respiratory rate 18 /min Linda Swanson Other [employer] Other 04-06-2023 09:05-0500 SaO2% (BldA) [Mass fraction] 99 % Linda Swanson Other [facility] [employer] Other 01-30-2023 15:40-0500 Body height 160.02 cm Addie Mary Other [facility] 01-30-2023 15:40-0500 Body mass index (BMI) [Ratio] 39.78 kg/m2 Addie Mary Other [facility] [employer] Other 01-30-2023 15:40-0500 Body temperature 98 [degF] Addie Mary Other [facility] [employer] Other 01-30-2023 15:40-0500 Body weight 101.88 kg Addie Mary Other [facility] [employer] Other 01-30-2023 15:40-0500 Body weight 101.[address] [facility] 01-30-2023 15:40-0500 Diastolic blood pressure 64 mm[Hg] Addie Mary Other [facility] 01-30-2023 15:40-0500 Respiratory rate 18 /min Addie Mary Other [facility] [employer] Other 01-30-2023 15:40-0500 SaO2% (BldA) [Mass fraction] 98 % Addie Mary Other [facility] [employer] Other 01-30-2023 15:40-0500 Systolic blood pressure 131 mm[Hg] Addie Mary Other [facility] 12-13-2022 09:05-0400 Body height 160.02 cm Linda Swanson Other [facility] [employer] Other 12-13-2022 09:05-0400 Body mass index (BMI) [Ratio] 38.97 kg/m2 Linda Swanson Other [employer] Other 12-13-2022 09:05-0400 Body temperature 98.2 [degF] Linda Swanson Other [employer] Other 12-13-2022 09:05-0400 Body weight 99.79 kg Linda Swanson Other [employer] Other 12-13-2022 09:05-0400 Diastolic blood pressure 76 mm[Hg] Linda Swanson Other [employer] Other 12-13-2022 09:05-0400 Respiratory rate 18 /min Linda Swanson Other [employer] Other 12-13-2022 09:05-0400 SaO2% (BldA) [Mass fraction] 98 % Linda Swanson Other [employer] Other 12-13-2022 09:05-0400 Systolic blood pressure 112 mm[Hg] Linda Swanson Other [employer] Other 08-15-2022 12:00-0400 Body height 160.02 cm Addie Hernandez Other [employer] Other 08-15-2022 12:00-0400 Body mass index (BMI) [Ratio] 40.21 kg/m2 Addie Hernandez Other [employer] Other 08-15-2022 12:00-0400 Body temperature 97.7 [degF] Addie Hernandez Other [employer] Other 08-15-2022 12:00-0400 Body weight 102.97 kg Addie Hernandez Other [employer] Other 08-15-2022 12:00-0400 Diastolic blood pressure 72 mm[Hg] Addie Hernandez Other [employer] Other 08-15-2022 12:00-0400 Respiratory rate 18 /min Addie Hernandez Other [employer] Other 08-15-2022 12:00-0400 SaO2% (BldA) [Mass fraction] 98 % Addie Hernandez Other [employer] Other 08-15-2022 12:00-0400 Systolic blood pressure 118 mm[Hg] Addie Hernandez Other [employer] Other 07-01-2022 14:08-0400 Body weight 100.[address] IVY ABKER . [facility] Comment on above: Result Comment: This is a corrected repo rt. The previously reported result was: Weight 06/29/2022 Not provided. . Performed By: #### A FPMAT #### [facility] [address] [place] [address] Dr. Cathleen Godwin Encounters Encounter Date Encounter Type Care Provider Facility Start: 09-06-2024 End: 09-06-2024 Clinisync Result Encounter Ivy Samuel DO Work Phone: [facility] Unsolicited Start: 09-06-2024 End: 09-06-2024 Clinisync Result Encounter Ivy Samuel DO Work Phone: [facility] Unsolicited Start: 09-05-2024 End: 09-05-2024 Office outpatient visit 5 minutes Samuel Nurse [facility] Comment on above: GA: 8w6d Start: 09-05-2024 End: 09-05-2024 ambulatory IVY SAMUEL Not Available Start: 09-01-2024 End: 09-02-2024 Emergency department patient visit NO PCP NO PCP [facility] [place] Start: 08-21-2024 End: 08-21-2024 Clinisync Result Encounter Ivy Samuel DO Work Phone: [facility] External Department Unsolicited Start: 08-21-2024 End: 08-21-2024 Clinisync Result Encounter Ivy Samuel DO Work Phone: [facility] Unsolicited Start: 08-19-2024 End: 08-19-2024 Clinisync Result Encounter Ivy Samuel DO Work Phone: [facility] External Department Unsolicited Start: 08-19-2024 End: 08-19-2024 Clinisync Result Encounter Ivy Samuel DO Work Phone: [facility] External Department Unsolicited Start: 08-09-2024 End: 08-09-2024 Bamboo flowsheet Allen Brizuela MD Work Phone: [facility] Start: 08-09-2024 End: 08-09-2024 Bamboo flowsheet Allen Brizuela MD Work Phone: [facility] Start: 08-09-2024 End: 08-09-2024 ambulatory ALLEN BRIZUELA Not Available Start: 08-09-2024 End: 08-09-2024 Office outpatient visit 25 minutes Allen Brizuela MD Work Phone: [facility] 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 (Primary Dx); Vitamin D deficiency; Encounter for dietary consultation; Class 3 severe obesity due to excess calories without serious comorbidity with body mass index (BMI) of 40.0 to 44.9 in adult ([facility]); Thyroid disease during , first trimester (HCC); Hypothyroidism, unspecified type Start: 05-13-2024 Patient encounter status Allen Brizuela MD Work Phone: [facility] Start: 03-26-2024 End: 01-28-2025 Patient encounter procedure Ivy Samuel DO Work Phone: [facility] Comment on above: Encounter for remova l of intrauterine contraceptive device (IUD) Start: 03-26-2024 End: 03-26-2024 ambulatory IVY BAKER Not Available Start: 11-20-2023 End: 11-20-2023 Patient encounter procedure JUICE Altman Work Phone: [facility] Work Phone: Start: 11-20-2023 End: 11-20-2023 ambulatory NON STAFF [facility] Work Phone: Start: 11-20-2023 End: 11-20-2023 ambulatory NON STAFF [facility] Work Phone: Start: 11-20-2023 End: 11-20-2023 Patient encounter procedure JUICE Altman Work Phone: [facility] Work Phone: Start: 10-10-2023 End: 10-10-2023 Departed Referred JUICE Altman Work Phone: [facility] [place] Work Phone: Start: 10-10-2023 End: 10-10-2023 ambulatory Diana Altman [facility] Work Phone: Start: 10-10-2023 End: 10-10-2023 Patient encounter procedure [facility] Work Phone: Start: 04-18-2023 End: 04-18-2023 ambulatory [facility] Work Phone: Start: 04-18-2023 End: 04-18-2023 Patient encounter procedure [facility] Work Phone: Start: 04-06-2023 End: 04-06-2023 ambulatory Linda Swanson Other [employer] Other Start: 04-06-2023 Office outpatient vi sit 25 minutes Linda Swanson [facility] Start: 02-02-2023 End: 02-02-2023 ambulatory Linda Swanson Other [employer] Other Start: 02-02-2023 Telephone encounter Linda Swanson [facility] [address] Start: 01-30-2023 End: 01-30-2023 ambulatory Addie Mary Other [employer] Other Start: 01-30-2023 Office outpatient vi sit 15 minutes Addie Mary [facility] Start: 01-30-2023 End: 01-30-2023 Patient encounter procedure [facility] Work Phone: Start: 12-13-2022 Office outpatient vi sit 15 minutes Linda Swanson [facility] Start: 12-13-2022 End: 12-13-2022 Patient encounter procedure VIDEOTAPE RECORDING ENGINEER Linda Swanson Work Phone: [facility] Work Phone: Start: 12-13-2022 End: 12-13-2022 ambulatory Linda Swanson [facility] Work Phone: Start: 08-15-2022 End: 08-15-2022 ambulatory Addie Mary Other [employer] Other Start: 08-15-2022 Office outpatient ne w 20 minutes Addiekentrell Hernandez [facility] Start: 07-26-2022 End: 07-26-[address] IVY BAKER . Facility:[facility] Start: 06-27-2022 End: 06-28-[address] IVY BAKER . Facility:[facility] Start: 06-27-2022 End: 06-28-[address] IVY BAKER . Facility:[facility] Start: 06-10-2020 End: 06-10-2020 ambulatory Jose A Stewart Work Phone: COVID Vaccine [place] Procedures Date Procedure Procedure Detail Performing Clinician Start: 09-06-2024 ALL CBC WITH AUTO DIFF Ivy Samuel DO Work Phone: Start: 09-05-2024 Urnls dip stick/tabl et rgnt non-auto w/o micrscp Ivy Samuel DO Work Phone: Start: 08-21-2024 [facility] PREG QUANT HCG Core y Samuel DO Work Phone: Start: 08-19-2024 [facility] PREG QUANT HCG Core y Samuel DO Work Phone: Start: 03-26-2024 IUD REMOVAL Ivy Fazi o DO Work Phone: Start: 11-20-2023 COVID Antigen (POC) APR Jarek Altman Work Phone: Start: 11-20-2023 Quick Strep (POC) JUICE Altman Work Phone: Start: 11-20-2023 Plain chest X-ray JUICE Altman Work Phone: Start: 10-10-2023 Urine culture VIDEOTAPE RECORDING ENGINEERJarek Altman Work Phone: Start: 04-18-2023 COVID/Influenza Anti gen (POC) Start: 12-13-2022 X-ray of left ankle APR Jarek Swanson Work Phone: Plan of Treatment Date Care Activity Detail Author Start: 10-08-2024 End: 10-08-2024 Patient encounter procedure 10/08/2024 1:50 PM EDT Routine [facility] [address] [place] [address] AsmuelIvy martinez, DO [address] [place] [address] [facility] Start: 10-04-2024 End: 10-04-2024 Patient encounter procedure 10/04/2024 10:40 AM EDT Office Visit [facility] [address] [place] [address] Allen Brizuela MD [address] [place] [address] [facility] Start: 09-05-2024 End: 09-05-2025 ABO/Rh ABO/Rh Lab Routine Missed menses , unspecified gestational age ([facility]) Expected: 09/05/2024 (Approximate), Expires: 09/05/2025 [facility] Comment on above: Expected: 09/05/2024 (Approximate), Expi res: 09/05/2025 Start: 09-05-2024 End: 09-05-2025 Blood type and Indirect antibody screen panel - Blood Type and screen Lab Routine Missed menses , unspecified gestational age ([facility]) Expected: 09/05/2024 (Approximate), Expires: 09/05/2025 [facility] Work Phone: Comment on above: Expected: 09/05/2024 (Approximate), Expi res: 09/05/2025 Start: 09-05-2024 End: 09-05-2025 Drugs of abuse panel - Urine by Screen method Rapid drug screen, urine Lab Routine , unspecified gestational age ([facility]) Encounter for supervision of normal first in first trimester ([facility]) Expected: 09/05/2024 (Approximate), Expires: 09/05/2025 [facility] Comment on above: Expected: 09/05/2024 (Approximate), Expi res: 09/05/2025 Start: 09-05-2024 End: 09-05-2024 ambulatory 09/05/2024 1:30 PM EDT Initial [facility] [address] [place] [address] [facility] Start: 09-05-2024 End: 09-05-2024 Professional / ancillary services management 09/05/2024 1:00 PM EDT Ancillary Procedure [facility] [address] [place] [address] [facility] Start: 08-09-2024 End: 08-09-2025 Thyrotropin [Units/volume] in Serum or Plasma TSH Lab Routine Alfredo's disease Thyroid disease during , first trimester (HCC) Expected: 08/09/2024 (Approximate), Expires: 08/09/2025 [facility] Comment on above: Expected: 08/09/2024 (Approximate), Expi res: 08/09/2025 Start: 08-09-2024 End: 08-09-2025 Thyroxine (T4) free [Mass/volume] in Serum or Plasma T4, free Lab Routine Alfredo's disease Thyroid disease during , first trimester (HCC) Expected: 08/09/2024 (Approximate), Expires: 08/09/2025 [facility] Comment on above: Expected: 08/09/2024 (Approximate), Expi res: 08/09/2025 Start: 08-09-2024 End: 08-09-2025 Triiodothyronine (T3) Free [Mass/volume] in Serum or Plasma T3, free Lab Routine Alfredo's disease Thyroid disease during , first trimester (HCC) Expected: 08/09/2024 (Approximate), Expires: 08/09/2025 [facility] Work Phone: Comment on above: Expected: 08/09/2024 (Approximate), Expi res: 08/09/2025 Start: 10-10-2023 Bacteria identified in Urine by Culture [facility] Start: 07-09-2023 Urine microalbumin profile DTAP,TDAP,TD (2 - Td) [facility] Start: 12-11-2020 PAP TESTING PAP TESTING [facility] Start: 10-28-2020 Influenza vaccination INFLUENZA (Season Ended) [facility] Start: 2011 HEPATITIS C SCREENING HEPATITIS C SCREENING [facility] Start: 2011 HIV SCREENING HIV SCREENING [facility] Start: 2005 Adult depression screening assessment DEPRESSION SCREENING [facility] Bacteria identified in Urine by Culture Urine culture Microbiology Routine Missed menses Ordered: 09/05/2024 [facility] Comment on above: Ordered: 09/05/2024 CBC W Auto Different ial panel - Blood CBC and differential Lab Routine Missed menses , unspecified gestational age ([facility]) Ordered: 09/05/2024 [facility] Comment on above: Ordered: 09/05/2024 Hemoglobin A1c/Hemoglobin.total in Blood Hemoglobin A1c Lab Routine Missed menses , unspecified gestational age ([facility]) Ordered: 09/05/2024 [facility] Comment on above: Ordered: 09/05/2024 Hepatitis B virus andrade rface Ag [Presence] in Serum or Plasma by Immunoassay Hepatitis B surface antigen Lab Routine Missed menses , unspecified gestational age ([facility]) Ordered: 09/05/2024 [facility] Comment on above: Ordered: 09/05/2024 Hepatitis C virus Ab [Presence] in Serum or Plasma by Immunoassay Hepatitis C antibody Lab Routine Missed menses , unspecified gestational age ([facility]) Ordered: 09/05/2024 [facility] Comment on above: Ordered: 09/05/2024 HIV-1/HIV-2 antigen/antibody combination immunoassay HIV-1 and HIV-2 antibodies Lab Routine Missed menses , unspecified gestational age ([facility]) Ordered: 09/05/2024 [facility] Comment on above: Ordered: 09/05/2024 Reagin Ab [Presence] in Serum by RPR RPR Lab Routine Missed menses , unspecified gestational age ([facility]) Ordered: 09/05/2024 [facility] Comment on above: Ordered: 09/05/2024 Rubella antibody, IgG Rubella an tibody, IgG Lab Routine Missed menses , unspecified gestational age ([facility]) Ordered: 09/05/2024 [facility] Comment on above: Ordered: 09/05/2024 End: 08-09-2020 SARS-COVID VACCINE 1ST DOSE APPT SARS-COVID VACCINE 1ST DOSE APPT Procedures Routine 1 Occurrences starting 06/10/2020 until 08/09/2020 [facility] Comment on above: 1 Occurrences starting 06/10/2020 until 08/09/2020 XR Chest 2 [facility] Immunizations Immunization Date Immunization Notes Care Provider [facility] tetanus toxoid, redu sanchez diphtheria toxoid, and acellular pertussis vaccine, adsorbed Allen Brizuela MD Work Phone: [facility] Payers Date Payer Category Payer Medicaid (Managed Care) [facility] MEDICAID [id number] 2022 Self-pay 2022 Medicaid [id number] 2018 Private Health Insurance [employer] A [employer] PPO [id number] 2018-Present PPO [id number] 2018 Private Health Insurance [employer] A [employer] PPO [id number] 2018-Present PPO [id number] 1993 Unknown [id number] 593 1993 Unknown [id number] 593 1993 Unknown [id number]. 593 1993 Unknown [id number]. 1286 1993 Unknown [id number]. 1259 1993 Unknown [id number]. 1259 1993 Unknown [id number]. 1259 1993 Unknown [id number]. 1259 Unknown [id number] 531 Unknown [id number] 531 Unknown [id number] 531 Social History Date Type Detail Facility Start: 07-02-2018 End: 08-07-2023 Tobacco smoking status NHIS Never smoker [facility] Start: 07-02-2018 End: 08-07-2023 Tobacco use and exposure Never used [facility] Start: 07-02-2018 End: 09-05-2024 Alcohol intake Current drinker of alcohol (finding) [facility] Start: 1995 Sex Assigned At Not on file [facility] Start: 08-07-2023 End: 08-09-2024 Sex Assigned At [employer] Start: 1995 Sex Assigned At Female [facility] Start: 08-07-2023 End: 08-09-2024 Alcoholic beverage intake [facility] Start: 09-04-2022 Alcohol Comment Alcohol: 1 or 2 drinks, 2 to 4 times a month; Caffeine: 1 can /week [facility] Start: 07-26-2022 Gender identity Identifies as female gender (finding) [facility] Start: 07-26-2022 Sexual orientation Heterosexual (finding) [facility] Start: 07-19-2024 [facility] Clinical Notes 06-10-2020 to 09-05-2024 Marcie Flannery LPN - 09/05/2024 1:30 PM Rylee Brizuela MD - 08/09/2024 11:10 AM Stas Galeana LPN - 03/26/2024 1:30 PM EST Note Date & Type Note Facility 09-05-2024 History of Presen t illness Narrative Reason for Appointment: Patient ID: Brittnee Smith is a 29 y.o. 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 Acute bronchitis 05/13/2024 Acute pharyngitis 09/10/2009 Acute streptococcal pharyngitis 05/13/2024 Encounter for childhood immunizations appropriate for age 0708/30/2007 Obesity affecting , antepartum ([facility]) 11/13/2018 Hyperthyroidism 11/28/2017 Resolved Ambulatory Problems Diagnosis Date Noted Anemia of ([facility]) 04/24/2018 -induced hypertension ([facility]) 04/29/2018 Past Medical History: Diagnosis Date Body [...] Vitals: Estimated body mass index is 39.2 kg/m as calculated from the following: Height as [...] dipstick manually resulted , unspecified gestational age ([facility]) - Type and screen; Future - ABO/Rh; Future - CBC and differential - Hemoglobin A1c - RPR - Rubella antibody, IgG - Hepatitis B surface antigen - Hepatitis C antibody - HIV-1 and HIV-2 antibodies - Rapid drug screen, urine; Future Encounter for supervision of normal first in first trimester ([facility]) - Rapid drug screen, urine; Future Nurse Note: OB Intake: Patient presents today for first OB visit. Patients history has been reviewed in great detail including any potential risks. Patient signed consent forms and patient desires testing in both trimesters. Patient currently has no complaints and has been advised to drink 6-8 glasses of water a day, eat no raw or undercooked meat, and stay away from caro center. Patient has also been advised to not change litter boxes and eat 6 small meals a day. Patient has been consulted regarding the do's and don'ts of . Patient was given labs and all questions [...] Marcie Flannery LPN documented in this encounter [facility] 08-09-2024 History of Presen t illness Narrative Brittnee Smith is a 29 y.o. female Allen Brizuela MD presents with chief complaint of Thyroid Problem HPI: IM : 07/2023 follow up on 08/10/2023 for uncontrolled hypothyroidism. on levothyroxine 300 mcg daily. No new lab, She just found she is . IM : 03/2023 follow up on 04/12/2023 for uncontrolled hypothyroidism. lab on 03/2023 TPO 17, TgAB<1, TSH 0.107, FT3 2.94 (2.18-3.98), FT4 1.61 (0.76-1.41), on levothyroxine 300 mcg daily. HPI: 12/2022 New patient sent from Dr. Ivy Baker for uncontrolled hypothyroidism. TSH back in [...] thyroid Hypothyroidism Obesity UTI (urinary tract infection) 2014 Vitamin D deficiency Past Surgical History: Procedure Laterality Date HAND SURGERY 2015 ORIF right hand WISDOM TOOTH EXTRACTION 07/2013 teeth REVIEW OF SYMPTOMS: 14 POINT OF SYSTEM REVIEWED AND NEGATIVE OBJECTIVE: Visit Vitals Pulse 93 Resp 16 Ht 5' 4 Wt 234 lb SpO2 99% BMI 40.17 kg/m OB Status Having periods Smoking Status Never BSA 2.19 m Physical Exam Constitutional: Appearance: Normal appearance. She [...] (BMI) of 40.0 to 44.9 in adult ([facility]) Thyroid disease during , first trimester (HCC) - Synthroid 300 MCG tablet; Take 1 tablet (300 mcg) by mouth Daily - T3, free; Future - T4, free; Future - TSH; Future She just found she is , we will check free T4 free T3 to keep it in the high-normal. Follow up in about 2 months (around 10/09/2024). documented in this encounter [facility] 03-26-2024 History of Presen t illness Narrative Associated Order(s): IUD Removal Post-Procedure Diagnose(s): Encounter for removal of intrauterine contraceptive device (IUD) Reason for Appointment: Patient ID: Brittnee Smith is a 29 y.o. female who presents for Removal of Mirena IUD Patient presents today for a IUD Removal appointment. MEDICATIONS Current Outpatient Medications Medication Instructions levothyroxine (SYNTHROID) 300 mcg, Oral, Daily before breakfast ALLERGIES Allergies Allergen Reactions Sulfa Antibiotics Other and Rash Other Reaction(s): Unknown Other Rash and Other PEDIAZOLE Sulfamethoxazole Rash SURGICAL HISTORY Past Surgical History: Procedure Laterality Date HAND SURGERY 2015 ORIF right hand WISDOM TOOTH EXTRACTION 07/2013 teeth REVIEW OF SYSTEMS Review of Systems: Review of Systems Constitutional: Negative. HENT: Negative. Eyes: Negative. Respiratory: Negative. Cardiovascular: Negative. Gastrointestinal: Negative. Genitourinary: Negative. Musculoskeletal: Negative. Skin: Negative. Neurological: Negative. All other systems reviewed and are negative. Hematological: Negative. Endocrine: Negative. Allergic/Immunologic: Negative. OBJECTIVE Objective: Physical Exam Constitutional: Appearance: Normal appearance. She is well-developed. Genitourinary: Vulva normal. Cardiovascular: Rate and Rhythm: Normal rate and regular rhythm. Pulmonary: Effort: Pulmonary effort is normal. Breath sounds: Normal breath sounds. Abdominal: General: Bowel sounds are normal. There is no distension. Palpations: Abdomen is soft. Tenderness: There is no abdominal tenderness. There is no guarding or rebound. Musculoskeletal: General: No swelling. Normal range of motion. Right lower leg: No edema. Left lower leg: No edema. Neurological: Mental Status: She is alert and oriented to person, place, and time. Skin: General: Skin is warm and dry. Psychiatric: Mood and Affect: Mood normal. Behavior: Behavior normal. Vitals and nursing note reviewed. Exam conducted with a mold maintenance technician present. Vitals: Estimated body mass index is 40.94 kg/m as calculated from the following: Height as of 24: 5' 3 . Weight as of this encounter: 231 lb 1.9 oz. BP: 116/74 No LMP recorded. ASSESSMENT & PLAN Assessment/Plan Encounter Diagnosis: ICD-10-CM 1. Encounter for removal of intrauterine contraceptive device (IUD) Z30.432 IUD Removal Date/Time: 03/26/2024 1:59 PM Performed by: Ivy Baker DO Authorized by: Ivy Baker DO Consent: Consent obtained: Written Consent given by: Patient Procedure risks and benefits discussed: yes Patient questions answered: yes Patient agrees, verbalizes understanding, and wants to proceed: yes Educational handouts given: yes Instructions and paperwork completed: yes [place] protocol: Patient states understanding of procedure being performed: yes Relevant documents present and verified: yes Test results available and properly labeled: yes Imaging studies available: yes Required blood products, implants, devices, and special equipment available: yes Site marked: yes Procedure: Removed with no complications: yes Removal due to mechanical complications of IUD: no Removal due to infection and inflammatory reaction: no Comments: IUD Removal: Patient presents today for removal of IUD. Written consent was obtained and patient was placed in dorsal lithotomy position with feet in stirrups. A sterile speculum was inserted into the vagina and the cervix was visualized. The IUD strings were grasped gently with forceps and the IUD was removed in its entirety without difficulty. The IUD was shown to the patient then properly discarded. Follow Up: Patient is to return to the office for annual exam unless needed otherwise Documented by Brandy Galeana LPN on behalf of: Ivy Baker DO documented in this encounter [facility] 04-06-2023 Evaluation note Encounter Date Diagnosis Assessment Notes Mar, Contact with and (suspected) exposure to other viral communicable diseases (ICD-10 - Z20.828) Mar, Viral illness (ICD-10 - B34.9) Advised patient that COVID/Influenza A/B/RSV PCR test was negative today. Advised patient that will treat as viral illness. Will send in zofran as directed as needed for nausea. Encouraged supportive care as directed, increase fluids and rest, Tylenol/Motrin as directed, OTC cough/cold remedies as directed on packaging, cool mist humidifier, throat lozenges. Discussed infection control practices such as good hand washing and mask wearing. Work note provided. Patient to follow up with PCP if symptoms persist or worsen despite treatment. Immediate eval for SOB, difficulty breathing, chest pain, fevers that do not break with antipyretic or any other concerning symptoms as reviewed on patient education handout. Patient verbalizes understanding and is agreeable to treatment plan. Patient left in stable condition. [employer] Other 12-04-2023 Evaluation note* Encounter Date Diagnosis Assessment Notes Treatment Notes Treatment Clinical Notes Jan, Hordeolum externum of left upper [...] the ER for worsening symptoms or concerns [employer] Other 10-17-2023 Evaluation note* Encounter Date Diagnosis Assessment Notes Treatment Notes Treatment Clinical Notes Nov, Injury (ICD-10 - T14.90XA) Nov, [...] understanding and is agreeable to treatment plan [employer] Other 06-19-2023 Evaluation note* Encounter Date Diagnosis Assessment Notes Treatment Notes Treatment Clinical Notes Jul, Acute sinusitis, recurrence not specified, [...] Tylenol as needed for aches or pains. [employer] Other 04-14-2021 NotePatient Outreach ([facility]) BRITTNEE SMITH ([id number]) 1995 F Date Time Provider Department 06/10/20 JOSE A STEWART [facility] During your visit today, we recorded the following information about you: Allergies As of Date: 06/10/2020 Noted Allergy Reaction SULFA (SULFONAMIDE ANTIBIOTICS) 07/02/2018 2 - Rash Date Reviewed: 07/02/2018 Reviewed by: Sakina PickeringVA) - Fully Assessed Order(s):SARS-COVID VACCINE 1ST DOSE APPT [[id number]] Order #: [id number] FUTURE SARS-COVID VACCINE 1ST DOSE APPT [[id number]] Order #: [id number] Prescriptions as of 06/10/2020 Sig: SYNTHROID 125 MCG TABLET Take 2 tablets by mouth once * Problem List As Of Date: 06/10/2020 (None) Encounter Status:Closed by APRIL NIXON on 06/15/20[facility] [place] noteNo assessment information availableMount [facility] Work Phone: evaluolqko noteNo InformationNort SMB Suite Other evaluation note* Diagnosis Onset Date Resolution Status Acute UTI acute [facility] Work Phone: Evaluqfpij note* Diagnosis Onset Date Resolution Status Acute UTI acute Bronchitis [facility] Work Phone: evaluation note* Diagnosis Encounter for removal of intrauterine contraceptive device (IUD) documented in this encounter [facility] HealthcareEvaluation note* Diagnosis Alfredo's disease- Primary Chronic lymphocytic thyroiditis Vitamin D deficiency Encounter for dietary consultation Class 3 severe obesity due to excess calories without serious comorbidity with body mass index (BMI) of 40.0 to 44.9 in adult ([facility]) Thyroid disease during , first trimester ([facility]) Hypothyroidism, unspecified type [facility] Diagnosis Missed menses , unspecified gestational age ([facility]) Encounter for supervision of normal first in first trimester ([facility]) documented in this encounter [facility] general Narrative - Reported* Type Description Date Medical History Hypothyroid Surgical History hand surgery [employer] Other History general Narrative - Reported* Type Description Date Medical History Hypothyroid Surgical History hand surgery Hospitalization History childbirth [facility] Other Summary Purpose Family History No Family History Records Found Relationship Condition Age at Onset Recorded Date/T ambreen Not Specified No pertinent family history Unknown Advance Directives No Advanced Directives Records Found Advance Directive Response Recorded Date/ Time Advance Directives No December 15, 2022 6:46am Advance Directive Response Recorded Date/ Time Advance Directives No December 15, 2022 7:46am Chief Complaint and Reason for Visit Chief Complaint Need Drops For Left Eye, Make Up Caused Congestion,Cough Chief Complaint Poss uti Chief Complaint Poss uti Dysuria Reason for Visit Acute UTI Chief Complaint Poss uti R30.0 cough, right ear pain Reason for Visit Acute UTI Chief Complaint Poss uti R30.0 cough, right ear pain Reason for Visit Acute UTI Bronchitis Additional Source Comments Source Comments (unrecognize d section and content) In the event this informatio n is protected by the Federal Confidentiality of Alcohol and Drug Abuse Patient Records regulations: The Federal rules restrict any use of the information to criminally investigate or prosecute any alcohol or drug abuse patient.[facility] INFORMATION SOURCE (unrecogn ized section and content) DATE CREATED AUTHOR 06/17/2020 [facility] [place] DATE CREATED AUTHOR AUTHOR'S ORGANIZ ATION 08/05/2022 [facility] DATE CREATED AUTHOR AUTHOR'S ORGANIZ ATION 11/28/2023 [facility] DATE CREATED AUTHOR AUTHOR'S ORGANIZ ATION 09/05/2024 [facility] DATE CREATED AUTHOR AUTHOR'S ORGANIZ ATION 09/09/2024 [facility] EPIC REASON FOR VISIT (unrecogniz ed section and content) Reason Comments Removal of Mirena IUD Reason Comments Thyroid Problem Reason Comments Amenorrhea Care Teams (unrecognized sec tion and content) Team Status: Inactive Member Role Status Dates Linda Swanson APRN Attending Provider Active Team Status: Active Member Role Status Dates PHYSICIAN NO FAMILY Primary Care Provider Active Team Status: Inactive Member Role Status Dates REUBEN Rodriguez Attending Provider Active S tart: January 30, 2023 End: January 30, 2023 Team Status: Inactive Member Role Status Dates PHYSICIAN NO FAMILY Primary Care Provider Active Start: April 18, 2023 End: April 18, 2023 Linda Swanson APRN Attending Provider Active Start: April 18, 2023 End: April 18, 2023 Team Status: Inactive Member Role Status Dates PHYSICIAN NO FAMILY Primary Care Provider Active Start: October 10, 2023 End: October 10, 2023 Diana Altman APRN Attending Provider Active Start: October 10, 2023 End: October 10, 2023 Team Status: Inactive Member Role Status Dates Diana Altman APRN Attending Provider Active Start: October 10, 2023 End: October 10, 2023 Team Status: Active Member Role Status Dates NON STAFF Primary Care Provider Active Team Status: Inactive Member Role Status Dates Amanda Victoria APRN Attending Provider Active S tart: November 20, 2023 End: November 20, 2023 NON STAFF Primary Care Provider Active Start: November 20, 2023 End: November 20, 2023 Team Status: Active Member Role Status Dates NON STAFF Primary Care Provider Active Start: November 20, 2023 Amanda Victoria APRN Attending Provider Active S tart: November 20, 2023 Team Status: Inactive Member Role Status Dates NON STAFF Primary Care Provider Active Start: November 20, 2023 End: November 20, 2023 Amanda Victoria APRN Attending Provider Active S tart: November 20, 2023 End: November 20, 2023 Goals (unrecognized section and content) Goals may [...] BE BASED ON THE PRIMARY CLINICAL RECORDS. [facility] [employer] [facility] provides no warranty or guarantee of the accuracy or completeness of information in this document.
[2024-09-19 11:29] LABS: Hematocrit 36.6 % (36.0-48.0); Hemoglobin 12.5 g/dL (12.0-16.0); Immature Granulocytes Abs Auto 0.04 10^3/uL (0.00-0.03); Immature Granulocytes Pct Auto 0.4 % (0.0-0.5); Lymphocytes Absolute Auto 2.8 10^3/uL (1.2-3.8); Mean Corpuscular HGB Conc 34.2 g/dL (29.9-35.2); Mean Corpuscular Hemoglobin 28.7 pg (26.7-34.0); Mean Corpuscular Volume 83.9 fL (81.0-99.0); Platelet Count 226 10^3/uL (150-450); Red Blood Count 4.36 10^6/uL (4.20-5.40); White Blood Count 9.5 10^3/uL (4.0-11.0)
[2024-09-19 12:03] LABS: Glucose 1 Hour 138 mg/dL (<130)
== END 2024-09-19 10:02 | disposition home or self-care (01) ==
LOC: LAB 10:03
PROVIDERS: Visit Provider Obstetrics & Gynecology
DX: Z13.1 Encounter for screening for diabetes mellitus (principal)
CPT/HCPCS: 36415; 82950; 85025

== ENCOUNTER 2024-10-03 09:34 | Outpatient (OUT) | payer OTHER, SELFPAY ==
--- OUTSIDE RECORDS SUMMARY | 2024-10-03 09:39 | XMS_ITS | Encounter Summary ---
Author Organization [facility] Address [address] [place] [address] Care Team Providers Care Manager Of Application Development Name Role Phone Unavailable Primary Care Provider Unavailabl e Encounter Details Date Type Department Care Team (Late Contact Info) Description 09/22/2022 Abstract [facility] [address] [phone] Karla Matthews PA [address] [place], [place] [address] Social History Tobacco Use Types Packs/Day Years [...] Description 10/04/2024 10:40 AM EDT Office Visit [facility] [address] [place] [phone] Allen Carr MD [address] [place] [address] 10/08/2024 1:50 PM EDT Routine [facility] [address] [address] Ha Baker DO [address] [place] [address] documented as of this encounter Visit Diagnoses Not on filedocumented in this encounter
--- OUTSIDE RECORDS SUMMARY | 2024-10-03 09:39 | XMS_ITS | Encounter Summary ---
Author Organization [facility] Address [address] [place] [address] Care Team Providers Care Shift Commander Name Role Phone Unavailable Primary Care Provider Unavailabl e Encounter Details Date Type Department Care Team (Late Contact Info) Description 08/24/2022 External Result Encounter [facility] [address] [place] [address] Ha Baker DO [address] Karina [place], [id number] Social [...] AM EDT Office Visit [facility] [address] [place] [address] Allen Carr MD [address] [place] [address] 10/08/2024 1:50 PM EDT Routine [facility] [address] [place] [address] Ha Baker, [address] [place] [address] documented as of this encounter Procedures Procedure [...] TRACT INFECTION (HTRX) (07/04/2023 3:25 PM EDT) Pathologist [facility] ACINETOBACTER BAUMANII 0.000 19.961 - 24.689 ppm 07/05/2023 8:40 AM EDT [facility] ACINETOBACTER BAUMANII Not Detected 19.961 - 24.689 ppm 07/05/2023 8:40 AM EDT [facility] CITROBACTER FREUNDII 0.000 23.000 - 31.881 ppm 07/05/2023 8:40 AM EDT [facility] CITROBACTER FREUNDII Not Detected 23.000 - 31.881 ppm 07/05/2023 8:40 AM EDT [facility] ENTEROBACTER AEROGENES, CLOACAE 0.000 23.000 - 31.535 ppm 07/05/2023 8:40 AM EDT [facility] ENTEROBACTER AEROGENES, CLOACAE Not Detected 23.000 - 31.535 ppm 07/05/2023 8:40 AM EDT [facility] ENTEROCOCCUS FAECALIS, FAECIUM 0.000 26.000 - 31.575 ppm 07/05/2023 8:40 AM EDT [facility] ENTEROCOCCUS FAECALIS, FAECIUM Not Detected 26.000 - 31.575 ppm 07/05/2023 8:40 AM EDT [facility] ESCHERICHIA COLI 0.000 23.000 - 28.500 ppm 07/05/2023 8:40 AM EDT [facility] ESCHERICHIA COLI Not Detected 23.000 - 28.500 ppm 07/05/2023 8:40 AM EDT [facility] KLEBSIELLA PNEUMONIAE, OXYTOCA 0.000 23.000 - 30.500 ppm 07/05/2023 8:40 AM EDT [facility] KLEBSIELLA PNEUMONIAE, OXYTOCA Not Detected 23.000 - 30.500 ppm 07/05/2023 8:40 AM EDT [facility] MORGANELLA MORGANII 0.000 19.961 - 24.689 ppm 07/05/2023 8:40 AM EDT [facility] MORGANELLA MORGANII Not Detected 19.961 - 24.689 ppm 07/05/2023 8:40 AM EDT [facility] PROTEUS MIRABILIS, VULGARIS 0.000 23.000 - 28.500 ppm 07/05/2023 8:40 AM EDT [facility] PROTEUS MIRABILIS, VULGARIS Not Detected 23.000 - 28.500 ppm 07/05/2023 8:40 AM EDT [facility] PSEUDOMONAS AERUGINOSA 0.000 23.000 - 28.500 ppm 07/05/2023 8:40 AM EDT [facility] PSEUDOMONAS AERUGINOSA Not Detected 23.000 - 28.500 ppm 07/05/2023 8:40 AM EDT [facility] STAPHYLOCOCCUS AUREUS 0.000 26.000 - 30.902 ppm 07/05/2023 8:40 AM EDT [facility] STAPHYLOCOCCUS AUREUS Not Detected 26.000 - 30.902 ppm 07/05/2023 8:40 AM EDT [facility] STREPTOCOCCUS AGALACTIAE (GROUP B STREP) 0.000 26.000 - 32.222 ppm 07/05/2023 8:40 AM EDT [facility] STREPTOCOCCUS AGALACTIAE (GROUP B STREP) Not Detected 26.000 - 32.222 ppm 07/05/2023 8:40 AM EDT [facility] SHOAIB ALBICANS, PARAPSILOSIS, TROPICALIS 0.000 23.000 - 30.770 ppm 07/05/2023 8:40 AM EDT [facility] SHOAIB ALBICANS, PARAPSILOSIS, TROPICALIS Not Detected 23.000 - 30.770 ppm 07/05/2023 8:40 AM EDT [facility] SHOAIB GLABRATA 0.000 23.000 - 32.138 ppm 07/05/2023 8:40 AM EDT [facility] SOHAIB GLABRATA Not Detected 23.000 - 32.138 ppm 07/05/2023 8:40 AM EDT [facility] SHOAIB KRUSEI 0.000 23.000 - 32.271 ppm 07/05/2023 8:40 AM EDT [facility] SHOAIB KRUSEI Not Detected 23.000 - 32.271 ppm 07/05/2023 8:40 AM EDT [facility] SERRATIA MARCESCENS 0.000 23.000 - 31.204 ppm 07/05/2023 8:40 AM EDT [facility] SERRATIA MARCESCENS Not Detected 23.000 - 31.204 ppm 07/05/2023 8:40 AM EDT [facility] STREPTOCOCCUS PYOGENES (GROUP A STREP) 0.000 19.961 - 24.689 ppm 07/05/2023 8:40 AM EDT [facility] STREPTOCOCCUS PYOGENES (GROUP A STREP) Not Detected 19.961 - 24.689 ppm 07/05/2023 8:40 AM EDT [facility] STAPHYLOCOCCUS EPIDERMIDIS, HAEMOLYTICUS, LUGDUNENSIS, SAPROPHYTICUS (URINA 0.000 19.961 - 24.689 ppm 07/05/2023 8:40 AM EDT [facility] STAPHYLOCOCCUS EPIDERMIDIS, HAEMOLYTICUS, LUGDUNENSIS, SAPROPHYTICUS (URINA Not Detected 19.961 - 24.689 ppm 07/05/2023 8:40 AM EDT [facility] STAPHYLOCOCCUS EPIDERMIDIS, HAEMOLYTICUS, LUGDUNENSIS, SAPROPHYTICUS (URINA 29.769(A) 19.961 - 24.689 ppm 07/05/2023 8:40 AM EDT [facility] STAPHYLOCOCCUS EPIDERMIDIS, HAEMOLYTICUS, LUGDUNENSIS, SAPROPHYTICUS (URINA Detected(A) 19.961 - 24.689 ppm 07/05/2023 8:40 AM EDT [facility] ACT, TAMMY, GÓMEZ, ACC GROUPS 0.000 23.000 - 31.085 ppm 07/05/2023 8:40 AM EDT [facility] ACT, TAMMY, GÓMEZ, ACC GROUPS Not Detected 23.000 - 31.085 ppm 07/05/2023 8:40 AM EDT [facility] CTX-M1 (15), M2 (2), M9 (9), M8-25 GROUPS 0.000 23.000 - 32.546 ppm 07/05/2023 8:40 AM EDT [facility] CTX-M1 (15), M2 (2), M9 (9), M8-25 GROUPS Not Detected 23.000 - 32.546 ppm 07/05/2023 8:40 AM EDT [facility] DFR (A1, A5), SUL (1,2) 0.000 23.000 - 27.000 ppm 07/05/2023 8:40 AM EDT [facility] DFR (A1, A5), SUL (1,2) Not Detected 23.000 - 27.000 ppm 07/05/2023 8:40 AM EDT [facility] ERMB, C; MEFA 23.418(A) 23.000 - 27.611 ppm 07/05/2023 8:40 AM EDT [facility] ERMB, C; MEFA Detected(A) 23.000 - 27.611 ppm 07/05/2023 8:40 AM EDT [facility] IMP, NDM, VIM GROUPS 0.000 23.000 - 32.894 ppm 07/05/2023 8:40 AM EDT [facility] IMP, NDM, VIM GROUPS Not Detected 23.000 - 32.894 ppm 07/05/2023 8:40 AM EDT [facility] MECA 0.000 23.000 - 31.199 ppm 07/05/2023 8:40 AM EDT [facility] MECA Not Detected 23.000 - 31.199 ppm 07/05/2023 8:40 AM EDT [facility] OXA-48, 51 0.000 23.000 - 31.345 ppm 07/05/2023 8:40 AM EDT [facility] OXA-48, 51 Not Detected 23.000 - 31.345 ppm 07/05/2023 8:40 AM EDT [facility] QNR A1, A2, B2 0.000 23.000 - 30.726 ppm 07/05/2023 8:40 AM EDT [facility] QNR A1, A2, B2 Not Detected 23.000 - 30.726 ppm 07/05/2023 8:40 AM EDT [facility] SH, KPC GROUPS 0.000 23.000 - 31.647 ppm 07/05/2023 8:40 AM EDT [facility] SHV, KPC GROUPS Not Detected 23.000 - 31.647 ppm 07/05/2023 8:40 AM EDT [facility] TET B, TET M 22.096(A) 23.000 - 27.778 ppm 07/05/2023 8:40 AM EDT [facility] TET B, TET M Detected(A) 23.000 - 27.778 ppm 07/05/2023 8:40 AM EDT [facility] Reynaldo Bryan 0.000 23.000 - 32.027 ppm 07/05/2023 8:40 AM EDT [facility] Reynaldo Bryan Not Detected 23.000 - 32.027 ppm 07/05/2023 8:40 AM EDT [facility] Urine 07/04/2023 3:25 PM EDT 07/05/2023 1:50 AM EDT us Karla CASTILLO LAB BLOOD ORDERABLES Final Resul t [facility] [address] [place] [address] * (ABNORMAL) URETHRITIS/DISCHARGE PLUS VAGINITIS (HTRX) (07/04/2023 3:23 PM EDT) ATOPOBIUM VAGINAE 18.814(A) 19.961 - 24.689 ppm 07/05/2023 9:32 AM EDT [facility] ATOPOBIUM VAGINAE Detected(A) 19.961 - 24.689 ppm 07/05/2023 9:32 AM EDT [facility] BVAB 2,3 (BACTERIAL VAGINOSIS ASSOCIATED BACTERIA 2, 3); MOBILUNCUS SPP 0.000 19.961 - 24.689 ppm 07/05/2023 9:32 AM EDT [facility] BVAB 2,3 (BACTERIAL VAGINOSIS ASSOCIATED BACTERIA 2, 3); MOBILUNCUS SPP Not Detected 19.961 - 24.689 ppm 07/05/2023 9:32 AM EDT [facility] SHOAIB ALBICANS, PARAPSILOSIS, TROPICALIS 0.000 23.000 - 30.770 ppm 07/05/2023 9:32 AM EDT [facility] SHOAIB ALBICANS, PARAPSILOSIS, TROPICALIS Not Detected 23.000 - 30.770 ppm 07/05/2023 9:32 AM EDT [facility] SHOAIB GLABRATA 0.000 23.000 - 32.138 ppm 07/05/2023 9:32 AM EDT [facility] SHOAIB GLABRATA Not Detected 23.000 - 32.138 ppm 07/05/2023 9:32 AM EDT [facility] SHOAIB KRUSEI 0.000 23.000 - 32.271 ppm 07/05/2023 9:32 AM EDT [facility] SHOAIB KRUSEI Not Detected 23.000 - 32.271 ppm 07/05/2023 9:32 AM EDT [facility] CHLAMYDIA TRACHOMATIS 0.000 23.000 - 31.467 ppm 07/05/2023 9:32 AM EDT [facility] CHLAMYDIA TRACHOMATIS Not Detected 23.000 - 31.467 ppm 07/05/2023 9:32 AM EDT [facility] GARDNERELLA VAGINALIS 18.569(A) 19.961 - 24.689 ppm 07/05/2023 9:32 AM EDT [facility] GARDNERELLA VAGINALIS Detected(A) 19.961 - 24.689 ppm 07/05/2023 9:32 AM EDT [facility] MEGASPHAERA (TYPES 1, 2) 0.000 19.961 - 24.689 ppm 07/05/2023 9:32 AM EDT [facility] MEGASPHAERA (TYPES 1, 2) Not Detected 19.961 - 24.689 ppm 07/05/2023 9:32 AM EDT [facility] NEISSERIA GONORRHOEAE 0.000 23.000 - 32.117 ppm 07/05/2023 9:32 AM EDT [facility] NEISSERIA GONORRHOEAE Not Detected 23.000 - 32.117 ppm 07/05/2023 9:32 AM EDT [facility] TRICHOMONAS VAGINALIS 0.000 23.000 - 32.119 ppm 07/05/2023 9:32 AM EDT [facility] TRICHOMONAS VAGINALIS Not Detected 23.000 - 32.119 ppm 07/05/2023 9:32 AM EDT [facility] MYCOPLASMA GENITALIUM 0.000 19.961 - 24.689 ppm 07/05/2023 9:32 AM EDT [facility] MYCOPLASMA GENITALIUM Not Detected 19.961 - 24.689 ppm 07/05/2023 9:32 AM EDT [facility] DFR (A1, A5), SUL (1,2) 0.000 23.000 - 27.000 ppm 07/05/2023 9:32 AM EDT [facility] DFR (A1, A5), SUL (1,2) Not Detected 23.000 - 27.000 ppm 07/05/2023 9:32 AM EDT [facility] ERMB, C; MEFA 17.525(A) 23.000 - 27.611 ppm 07/05/2023 9:32 AM EDT [facility] ERMB, C; MEFA Detected(A) 23.000 - 27.611 ppm 07/05/2023 9:32 AM EDT [facility] TET B, TET M 19.057(A) 23.000 - 27.778 ppm 07/05/2023 9:32 AM EDT [facility] TET B, TET M Detected(A) 23.000 - 27.778 ppm 07/05/2023 9:32 AM EDT [facility] Tissue 07/04/2023 3:23 PM EDT 07/05/2023 1:50 AM EDT us Karla CASTILLO LAB BLOOD ORDERABLES [facility]ul [facility] [address] [place] [address] * (ABNORMAL) URETHRITIS/DISCHARGE PLUS VAGINITIS (HTRX) (05/31/2023 4:59 PM EDT) Pathologist [facility] ATOPOBIUM VAGINAE 0.000 19.961 - 24.689 ppm 06/01/2023 9:50 AM EDT [facility] ATOPOBIUM VAGINAE Not Detected 19.961 - 24.689 ppm 06/01/2023 9:50 AM EDT [facility] BVAB 2,3 (BACTERIAL VAGINOSIS ASSOCIATED BACTERIA 2, 3); MOBILUNCUS SPP 23.559(A) 19.961 - 24.689 ppm 06/01/2023 9:50 AM EDT [facility] BVAB 2,3 (BACTERIAL VAGINOSIS ASSOCIATED BACTERIA 2, 3); MOBILUNCUS SPP Detected(A) 19.961 - 24.689 ppm 06/01/2023 9:50 AM EDT [facility] SHOAIB ALBICANS, PARAPSILOSIS, TROPICALIS 0.000 23.000 - 30.770 ppm 06/01/2023 9:50 AM EDT [facility] SHOAIB ALBICANS, PARAPSILOSIS, TROPICALIS Not Detected 23.000 - 30.770 ppm 06/01/2023 9:50 AM EDT [facility] SHOAIB GLABRATA 0.000 23.000 - 32.138 ppm 06/01/2023 9:50 AM EDT [facility] SHOAIB GLABRATA Not Detected 23.000 - 32.138 ppm 06/01/2023 9:50 AM EDT [facility] SHOAIB KRUSEI 0.000 23.000 - 32.271 ppm 06/01/2023 9:50 AM EDT [facility] SHOAIB KRUSEI Not Detected 23.000 - 32.271 ppm 06/01/2023 9:50 AM EDT [facility] CHLAMYDIA TRACHOMATIS 0.000 23.000 - 31.467 ppm 06/01/2023 9:50 AM EDT [facility] CHLAMYDIA TRACHOMATIS Not Detected 23.000 - 31.467 ppm 06/01/2023 9:50 AM EDT [facility] GARDNERELLA VAGINALIS 0.000 19.961 - 24.689 ppm 06/01/2023 9:50 AM EDT [facility] GARDNERELLA VAGINALIS Not Detected 19.961 - 24.689 ppm 06/01/2023 9:50 AM EDT [facility] MEGASPHAERA (TYPES 1, 2) 0.000 19.961 - 24.689 ppm 06/01/2023 9:50 AM EDT [facility] MEGASPHAERA (TYPES 1, 2) Not Detected 19.961 - 24.689 ppm 06/01/2023 9:50 AM EDT [facility] NEISSERIA GONORRHOEAE 0.000 23.000 - 32.117 ppm 06/01/2023 9:50 AM EDT [facility] NEISSERIA GONORRHOEAE Not Detected 23.000 - 32.117 ppm 06/01/2023 9:50 AM EDT [facility] TRICHOMONAS VAGINALIS 0.000 23.000 - 32.119 ppm 06/01/2023 9:50 AM EDT [facility] TRICHOMONAS VAGINALIS Not Detected 23.000 - 32.119 ppm 06/01/2023 9:50 AM EDT [facility] MYCOPLASMA GENITALIUM 0.000 19.961 - 24.689 ppm 06/01/2023 9:50 AM EDT [facility] MYCOPLASMA GENITALIUM Not Detected 19.961 - 24.689 ppm 06/01/2023 9:50 AM EDT [facility] DFR (A1, A5), SUL (1,2) 0.000 23.000 - 27.000 ppm 06/01/2023 9:50 AM EDT [facility] DFR (A1, A5), SUL (1,2) Not Detected 23.000 - 27.000 ppm 06/01/2023 9:50 AM EDT [facility] ERMB, C; MEFA 0.000 23.000 - 27.611 ppm 06/01/2023 9:50 AM EDT [facility] ERMB, C; MEFA Not Detected 23.000 - 27.611 ppm 06/01/2023 9:50 AM EDT [facility] TET B, TET M 0.000 23.000 - 27.778 ppm 06/01/2023 9:50 AM EDT [facility] TET B, TET M Not Detected 23.000 - 27.778 ppm 06/01/2023 9:50 AM EDT [facility] Tissue 05/31/2023 4:59 PM EDT 06/01/2023 2:17 AM EDT us Ha Baker DO LAB BLOOD ORDERABLES Final Resul t [facility] [address] [place] [address] * (ABNORMAL) URETHRITIS/DISCHARGE PLUS VAGINITIS (HTRX) (01/26/2023 [...] (ABNORMAL) TSH ([facility]) (12/01/2022 1:14 PM EDT) [facility] TSH 7.73(H) 0.49 - 4.67 uIU/mL [facility] Comment:PERFORMED AT [facility] [address],[place] [address] 12/01/2022 1:14 PM EDT 12/01/2022 1:15 PM EDT us Ha Samuel DO LAB BLOOD ORDERABLES Final Resul t [facility] * US OB 14+ weeks anatomy scan (08/24/2022 10:26 AM EDT) Anatomical Region Laterality Modality Body Ultrasound 08/24/2022 10:2 6 AM EDT Narrative 08/24/2022 10:25 AM EDT THIS EXAM WAS PERFORMED AT [facility] OBSTETRICS REPORT (Signed Final 08/24/2022 10:25) PATIENT INFO: ID #: [id number] : [birth year] (27 yrs)(F) Name: BRITTNEE CANNON Visit Date: 08/24/2022 09:23 YSASI PERFORMED BY: Attending: Thao Callahan MD, [facility] Performed By: Herminia Armenta RDMS Referred By: Ha Rodríguez. Address: [address] [place] [address] [place] [address] Location: [facility] SERVICE(S) PROVIDED: Comprehensive Anatomic Survey 23289 INDICATIONS: Screening for anatomic survey Z36.89 Obesity [...] Appears normal Interventr. Septum: Appears Normal Cardiac [place]: Normal Diaphragm: Appears normal 3 Vessel View: [...] obtained. BMI - 38. Thao Callahan MD, [facility] Electronically Signed Final Report 08/24/2022 10:25 IMPRESSION: 1. Single intrauterine , size consistent with assigned GARRETT. 2. No sonographic evidence of gross structural abnormality disclosed. 3. Amniotic fluid volume assessment (DVP) is normal. RECOMMENDATIONS: 1. Please see MFM consultation documentation from today's encounter. 2. Subsequent follow up or other follow up as clinically determined by primary OB provider unless otherwise specified by [facility]. 3. Results forwarded to ordering provider so they can follow up with the patient as necessary. Procedure Note Radiology, Radiologist, - 08/24/2022 THIS EXAM WAS PERFORMED AT [facility] OBSTETRICS REPORT (Signed Final 08/24/2022 10:25) PATIENT INFO: ID #: [id number] : [birth year] (27 yrs)(F) Name: BRITTNEE CANNON Visit Date: 08/24/2022 09:23 YSASI PERFORMED BY: Attending: Thao Callahan MD, [facility] Performed By: Herminia Armenta RDMS Referred By: Ha Baker DO Ref. Address: [address] [place] [address] [place] [address] Location: [facility] SERVICE(S) PROVIDED: Comprehensive Anatomic Survey 70455 INDICATIONS: Screening for anatomic survey Z36.89 Obesity [...] Appears normal Interventr. Septum: Appears Normal Cardiac [place]: Normal Diaphragm: Appears normal 3 Vessel View: [...] obtained. BMI - 38. Thao Callahan MD, [facility] Electronically Signed Final Report 08/24/2022 10:25 IMPRESSION: 1. Single intrauterine , size consistent with assigned GARRETT. 2. No sonographic evidence of gross structural abnormality disclosed. 3. Amniotic fluid volume assessment (DVP) is normal. RECOMMENDATIONS: 1. Please see M consultation documentation from today's encounter. 2. Subsequent follow up or other follow up as clinically determined by primary OB provider unless otherwise specified by M. 3. Results forwarded to ordering provider so they can follow up with the patient as necessary. us Ha PECK OB US PROCEDURES Final Resul t documented in this encounter Visit Diagnoses Not on filedocumented in this encounter
--- OUTSIDE RECORDS SUMMARY | 2024-10-03 09:39 | XMS_ITS | Encounter Summary ---
Author Organization [facility] Address [address] [place] [address] Care Team Providers Care Trailer Driver Name Role Phone Unavailable Primary Care Provider Unavailabl e Encounter Details Date Type Department Care Team (Late Contact Info) Description 09/06/2022 Abstract [facility] [address] [place] [address] Ha Baker DO [address] Karina Agu[place], [facility] Social History Tobacco Use Types Packs/Day Years [...] AM EDT Office Visit [facility] [address] [place] [id number] Allen Carr MD [address] [place] [address] 10/08/2024 1:50 PM EDT Routine [facility] Timothy OLMOSGYJarek [address] [place] [address] Ha Baker DO [address] [place] [address] documented as of this encounter Visit Diagnoses Not on filedocumented in this encounter
--- OUTSIDE RECORDS SUMMARY | 2024-10-03 09:39 | XMS_ITS | Encounter Summary ---
Author Organization [facility] Address [address] [place] [address] Care Team Providers Care Animal Nurse Name Role Phone Unavailable Primary Care Provider Unavailabl e Encounter Details Date Type Department Care Team (Late st Contact Info) Description 09/19/2024 Clinisync Result Encounter NOMS External Department Unsolicited Ha Baker, DO [address] [facility] [place] [address] Social History Tobacco Use Types Packs/Day Years [...] AM EDT Office Visit [facility] [address] [place] [address] Allen Carr MD [address] [place] [address] 10/08/2024 1:50 PM EDT Routine [facility] [address] [place] [address] Ha Baker DO [address] [place] [address] documented as of this encounter Procedures Procedure Name Priority Date/Time Associated Diagnosis Comments GLUCOSE 1 HOUR Routine 09/19/2024 11:07 AM EDT ALL CBC WITH AUTO DIFF Routine 09/19/2024 11:07 AM EDT documented in this encounter Results * (ABNORMAL) GLUCOSE 1 HOUR (09/19/2024 11:07 AM EDT) GLUCOSE 1 HOUR 138(H) <130 mg/dL [facility] 09/19/2024 11:0 7 AM EDT 09/19/2024 11:07 AM EDT Narrative [facility] - 09/19/2024 12:05 PM EDT us Ha Baker DO LAB BLOOD ORDERABLES [facility] * (ABNORMAL) ALL CBC WITH AUTO DIFF (09/19/2024 11:07 AM EDT) [facility] WBC 9.5 4.0 - 11.0 10 3/uL TBH TBH RBC 4.36 4.20 - 5.40 10 6/uL TBH TBH HGB 12.5 12.0 - 16.0 g/dL TBH TBH HCT 36.6 36.0 - 48.0 % TBH TBH MCV 83.9 81.0 - 99.0 fL TBH TBH MCH 28.7 26.7 - 34.0 pg TBH TBH MCHC 34.2 29.9 - 35.2 g/dL TBH TBH RDW 12.7 11.0 - 15.0 % TBH TBH PLT 226 150 - 450 10 3/uL TBH TBH MPV 10.8 9.5 - 13.5 fL TBH NEUTROPHILS PERCENT AUTO 62.0 43.0 - 75.0 % TBH LYMPHOCYTES PERCENT AUTO 29.9 20.5 - 60.0 % TBH MONOCYTES PERCENT AUTO 5.2 1.7 - 12.0 % TBH TBH EO % 2.0 0.9 - 7.0 % TBH BASOPHILS PERCENT AUTO 0.5 0.2 - 2.0 % TBH IMMATURE GRANULOCYTES PCT AUTO 0.4 0.0 - 0.5 % TBH NEUTROPHILS ABSOLUTE AUTO 5.9 1.4 - 6.5 10 3/uL TBH LYMPHOCYTES ABSOLUTE AUTO 2.8 1.2 - 3.8 10 3/uL TBH MONOCYTES ABSOLUTE AUTO 0.5 0.3 - 0.8 10 3/uL TBH TBH EO # 0.2 0.0 - 0.7 10 3/uL TBH BASOPHILS ABSOLUTE AUTO 0.1 0.0 - 0.1 10 3/uL TBH IMMATURE GRANULOCYTES ABS AUTO 0.04(H) 0.00 - 0.03 10 3/uL [facility] 09/19/2024 11:0 7 AM EDT 09/19/2024 11:07 AM EDT Narrative [facility] - 09/19/2024 11:42 AM EDT us Ha Baker DO [facility] Final Result [facility] TB documented in this encounter Visit Diagnoses Not on filedocumented in this encounter
--- OUTSIDE RECORDS SUMMARY | 2024-10-03 09:39 | XMS_ITS | Clinical Summary ---
Author Organization [facility] Address [address] [place] [address] Care Team Providers Care Rail Bonder Name Role Phone Unavailable Primary Care Provider Unavailabl e Allergies Active Allergy Reactions Criticality Noted Date Comments Other Rash,Other Low 10/20/2022 PEDIAZOLE Sulfa Antibiotics Other,Rash Medium 07/19/2011 Other Reaction(s): Unknown Sulfamethoxazole Rash Low 08/18/2022 Medications levothyroxine (Synthroid) 300 MCG tabletIndications: Hypothyroidism, unspecified type Take 1 tablet (300 mcg) by mouth in the morning. Take before meals. 360 tablet 12/29/19 23 Active fluticasone (Flonase) 50 MCG/ACT nasal spray Administer 1 spray into each nostril Daily Shake gently. Before first use, prime pump. After use, clean tip and replace cap. Active Synthroid 300 MCG tabletIndications: Alfredo's disease,Thyroid disease during , first trimester (HCC) Take 1 tablet (300 mcg) by mouth Daily 90 tablet 1 08/10/19 25 025 Active Vit-Fe Fumarate-FA ( Vitamins) 28-0.8 MG tabletIndications: Positive urine test ([facility]) Take 1 tablet by mouth Daily 30 tablet 3 08/27/19 25 026 Active ondansetron ODT (Zofran-ODT) 4 MG disintegrating tabletIndications: Nausea Take 1 tablet (4 mg) by mouth every 6 (six) hours if needed for nausea or vomiting 30 tablet 2 08/27/19 25 025 nitrofurantoin, macrocrystal-monoh ydrate, (Macrobid) 100 MG capsuleIndications :UTI symptoms Take 1 capsule (100 mg) by mouth in the morning and 1 capsule (100 mg) before bedtime. Do all this for 7 days. 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 Encounter for childhood immunizations appropriat e for age 0708/30/2007 Dermatitis, atopic 08/04/2005 Allergic rhinitis 02/18/2000 Asthma 02/18/2000 Hypothyroid 1993 Estimated Date of Delivery Comme nts Yes 04/11/2025 Based on Ultraso und Resolved Problems Problem Noted Date Diagnosed Date Resolved Date -induced hypertension ([facility]) 04/29/2018 11/04/2022 Anemia of ([facility]) 04/24/2018 11/04/2022 Encounters Date Type Department Care Team Description 09/23/2024 Telephone [facility] [address] [place] [address] Ha Baker DO 09/19/2024 Clinisync Result Encounter NOMS External Department Unsolicited Ha Baker DO 09/13/2024 Abstract [facility] [address] [place] [place] [address] Ha Baker DO 09/11/2024 Abstract [facility] [address] [facility] [place] [address] Ha Baker, DO 09/10/2024 Telephone [facility] [address] [facility] [place] [address] Marcie Flannery LPN 09/10/2024 Results Follow-Up [facility] [place] [address] Marcie Flannery, BACK TENDER PULP DRIER 09/06/2024 Clinisync Result Encounter NOMS External Department Unsolicited Ha Baker, DO 09/05/2024 1:30 PM EDT Initial [facility] [address] [facility] [place] [address] GA: 8w6d 09/05/2024 1:00 PM EDT Ancillary Procedure [facility] [address] [facility] [place] [address] Missed menses; Positive urine test ([facility]) 08/26/2024 Telephone [facility]LMOS[facility] [address] [place] [address] Ha Baker, DO 08/21/2024 Clinisync Result Encounter NOMS External Department Unsolicited Ha Baker, DO 08/19/2024 Clinisync Result Encounter NOMS External Department Unsolicited Ha Baker, DO 08/15/2024 Telephone [facility] [address] [facility] [place] [address] Marcie Flannery, BACK TENDER PULP DRIER 08/09/2024 11:10 AM EDT Office Visit [facility] [place] [facility] [address] [place] [phone] Allen Carr MD Alfredo's disease (Primary Dx); Vitamin D deficiency; Encounter for dietary consultation; Class 3 severe obesity due to excess calories without serious comorbidity with body mass index (BMI) of 40.0 to 44.9 in adult (CMS-HCC); Thyroid disease during , first trimester (HCC); Hypothyroidism, unspecified type 08/09/2024 Bamboo flowsheet [facility] [place] [facility] [address] [place] [address] Allen Carr MD from Last 3 Months [...] EDT Office Visit [facility] [address] [place] [address] Allen Carr MD [address] [place] [address] 10/08/2024 1:50 PM EDT Routine [facility] [address] [facility] [place] [address] Ha Baker, DO [address] [facility] [address] [place], [place] [id number] Procedures Procedure Name Priority Date/Time Associated Diagnosis Comments GLUCOSE 1 HOUR Routine 09/19/2024 11:07 AM EDT ALL CBC WITH AUTO DIFF Routine 09/19/2024 11:07 AM EDT HBSAG SCREEN Routine 09/06/2024 1:00 PM [...] PM EDT Missed menses Positive urine test ([facility]) [facility] PREG QUANT HCG Routine 08/21/2024 8: [...] from Last 3 Months Results * (ABNORMAL) GLUCOSE 1 HOUR (09/19/2024 11:07 AM EDT) GLUCOSE 1 HOUR 138(H) <130 mg/dL [facility] 09/19/2024 11:0 7 AM EDT 09/19/2024 11:07 AM EDT Narrative CLINISYNC - 09/19/2024 12:05 PM EDT us Ha Samuel DO LAB BLOOD ORDERABLES Final Resul t [facility] * (ABNORMAL) ALL CBC WITH AUTO DIFF (09/19/2024 11:07 AM EDT) Only the most recent of2 resultswithin the time period is included. [facility] WBC 9.5 4.0 - 11.0 10 [...] Narrative CLINISYNC - 09/19/2024 11:42 AM EDT Ha Samuel DO CLINISYNC Final Result [facility] * [facility]OX [facility] (09/06/2024 1:00 PM EDT) Pathologist [facility] BOX TEST SENT OUT [facility] [address] [facility] [address] 09/06/2024 [facility] 09/06/2024 1:00 PM EDT 09/06/2024 1:15 PM EDT Narrative CLINISYPR - 09/06/2024 2:05 PM EDT Ha Samuel DO LAB BLOOD ORDERABLES Final Resul t Performing Organization Address [facility] Co de Phone Number [facility] * HBSAG SCREEN (09/06/2024 1:00 PM EDT) [facility] HBSAG SCREEN Negative Negative [facility] Comment: Performed at: [address] [id number] Hr Leader: Atul Duvall PhD, Phone: [phone] 09/06/2024 1:00 PM EDT 09/06/2024 1:15 PM EDT Narrative CLINISYPR - 09/07/2024 1:09 PM EDT Ha Samuel LAB BLOOD ORDERABLES Final Resul t Performing Organization Address [facility] Co de Phone Number [facility] * RAPID PLASMA REAGIN, QUANT (09/06/2024 1:00 PM EDT) [facility] RAPID PLASMA REAGIN, QUANT Non Reactive NonRea<1: 1 titer [facility] Comment: Please Note: This test does not meet current guidelines for screening and diagnosis of syphilis. This test is intended for following treatment response in patients being treated for syphilis infection. To screen for syphilis infection, a reflex cascade that includes both RPR and a treponema-specific assay should be utilized, such as Treponema pallidum (Syphilis) Screening [place] (757352) or Rapid Plasma Reagin (RPR) Test With Reflex to Quantitative RPR and Confirmatory Treponema pallidum Antibodies (685165). Performed at: [address] [id number] Hr Leader: Atul Duvall PhD, Phone: [phone] 09/06/2024 1:00 PM EDT 09/06/2024 1:15 PM EDT Narrative CLINISYNC - 09/07/2024 1:09 PM EDT us Ha Samuel DO LAB BLOOD ORDERABLES Final Resul t Performing Organization Address [facility] de Phone Number [facility] * HIV AB/P24 AG WITH REFLEX (09/06/2024 1:00 PM EDT) Pathologist [facility] HIV AB/P24 AG SCREEN Non Reactive Non Reactive [facility] Comment: HIV-1/HIV-2 antibodies and HIV-1 p24 antigen were NOT detected. There is no laboratory evidence of HIV infection. HIV Negative Performed at: [address] [id number] Hr Leader: Atul Duvall PhD, Phone: [phone] 09/06/2024 1:00 PM EDT 09/06/2024 1:15 PM EDT Narrative CLINISYNC - 09/07/2024 5:11 AM EDT us Ha Samuel DO LAB BLOOD ORDERABLES Final Resul t Performing Organization Address [facility] de Phone Number [facility] * HCV ANTIBODY RFX TO QUANT PCR (09/06/2024 1:00 PM EDT) Pathologist [facility] HCV AB Non Reactive Non Reactive [facility] INTERPRETATION: Comment . TB Comment: Not infected with HCV unless early or acute infection is suspected (which may be delayed in an immunocompromised individual), or other evidence exists to indicate HCV infection. Performed at: [address] [id number] Hr Leader: Atul Duvall PhD, Phone: [phone] 09/06/2024 1:00 PM EDT 09/06/2024 1:15 PM EDT Narrative CLINISYNC - 09/07/2024 8:16 AM EDT Ha Samuel DO LAB BLOOD ORDERABLES Final Resul t Performing Organization Address [facility] Co de Phone Number [facility] * MLR HEMOGLOBIN A1C (09/06/2024 1:00 PM EDT) GLYCOHEMOGLOBIN A1C 5.8 4.5 - 6.2 % [facility] Comment: ADA RECOMMENDED LIMIT 4.0 - 6.0 ADA THERAPEUTIC TARGET < 7.0 ACTION SUGGESTED > 7.0 ESTIMATED AVERAGE GLUCOSE 120 mg/dL TB 09/06/2024 1:00 PM EDT 09/06/2024 1:15 PM EDT Narrative CLINISYNC - 09/06/2024 3:34 PM EDT Ha Samuel DO CLINISYNC Final Result Performing Organization Address [facility] Co de Phone Number [facility] * ALL TYPE AND SCREEN (09/06/2024 1:00 PM EDT) BLOOD TYPE O Positive [facility] ANTIBODY SCREEN NEGATIVE TB 09/06/2024 1:00 PM EDT 09/06/2024 1:15 PM EDT Narrative CLINISYPR - 09/06/2024 4:54 PM EDT [facility] , Ha Samuel DO CLINISYNC Final Result Performing Organization Address [facility] Co de Phone Number [facility] * ALL RUBELLA IGG AB (09/06/2024 1:00 PM EDT) RUBELLA ANTIBODIES, IGG 1.22 Immune >0.99 index [facility] Comment: Non-immune <0.90 Equivocal 0.90 - 0.99 Immune >0.99 Performed at: [facility] [address] [id number] Hr Leader: Atul Duvall PhD, Phone: [phone] 09/06/2024 1:00 PM EDT 09/06/2024 1:15 PM EDT Narrative CLINISYNC - 09/07/2024 8:16 AM EDT Ha Samuel DO CLINISYNC Final Result Performing Organization Address [facility]/ZIP Co de Phone Number [facility] * [facility] DRUG SCREEN RAPID (URINE) (09/06/2024 12:50 PM [...] Narrative CLINISYNC - 09/06/2024 2:25 PM EDT Ha Nowako DO CLINISYNC Final Result [facility] * (ABNORMAL) POCT , urine manually resulted [...] - Positive Urine 09/05/2024 2:01 PM EDT [facility] DO POINT OF CARE TEST ENTER/EDIT OR [...] Shlomo Luciano MD us Ha Samuel DO IMG OB US PROCEDURES Final Resul t * [...] Narrative CLINISYNC - 08/21/2024 10:43 AM EDT us Ha Samuel DO CLINISYNC Final Result [facility] TB * T3, free (08/09/2024 12:09 PM EDT) T3, FREE 2.4 2.0 - 4.4 pg/mL [facility] Blood Venous blood specimen / Unknown 08/09/2024 12:09 PM EDT 08/09/2024 Narrative [facility] - 08/10/2024 4:35 AM EDT Performed at: [address] [place] [id number] Hr Leader: Atul Duvall PhD, Phone: [phone] Allen Carr MD LAB BLOOD ORDERABLES Final Re sult Performing Organization Address [facility] de Phone Number [facility] * TSH (08/09/2024 12:09 PM EDT) TSH 3.130 0.450 - 4.500 uIU/mL [facility] Blood Venous blood specimen / Unknown 08/09/2024 12:09 PM EDT 08/09/2024 Narrative [facility] - 08/10/2024 4:35 AM EDT Performed at: [address] [place] [id number] Hr Leader: Atul Duvall PhD, Phone: [phone] Allen Carr MD LAB BLOOD ORDERABLES Final Re sult Performing Organization Address [facility] de Phone Number [facility] * (ABNORMAL) T4, free (08/09/2024 12:09 PM EDT) T4Free(Direct) 0.77(L) 0.82 - 1.77 ng/dL [facility] Blood Venous blood specimen / Unknown 08/09/2024 12:09 PM EDT 08/09/2024 Narrative [facility] - 08/10/2024 4:35 AM EDT Performed at: [address] [place] [id number] Hr Leader: Atul Duvall PhD, Phone: [phone] Allen Carr MD LAB BLOOD ORDERABLES Final Re sult Performing Organization Address [facility] Co de Phone Number [facility] from Last 3 Months Insurance [employer]
--- OUTSIDE RECORDS SUMMARY | 2024-10-03 09:39 | XMS_ITS | Encounter Summary ---
Author Organization [facility] Address [address] [place] [address] Care Team Providers Care Deckhand Maintenance Name Role Phone Unavailable Primary Care Provider Unavailabl e Encounter Details Date Type Department Care Team (Late Contact Info) Description 08/17/2022 Abstract [facility] [address] [place] [phone] Ha Baker DO [address] [facility] [address] [facility] [address] [place], [place] [id number] Social History Tobacco Use Types Packs/Day Years [...] EDT Office Visit [facility] [address] [place] [address] Allen Carr MD [address] [place] [address] 10/08/2024 1:50 PM EDT Routine [facility] ANTHONY [address] [place] [address] Ha Baker DO [address] [facility] [address] [facility] [address] [place] [address] documented as of this encounter Visit Diagnoses Not on filedocumented in this encounter
--- OUTSIDE RECORDS SUMMARY | 2024-10-03 09:39 | XMS_ITS | Encounter Summary ---
Author Organization [facility] Address [address] [facility] [place] [address] Care Team Providers Care Comfort Advisor Name Role Phone Unavailable Primary Care Provider Unavailabl e Encounter Details Date Type Department Care Team ([facility] Contact Info) Description 09/23/2024 Telephone [facility] [address] [place] [address] Ha Baker DO [address] [employer] [address] [address] [place], [place] [address] Social History Tobacco Use Types Packs/Day Years [...] Telephone Encounter - Carolina Stone LPN - 09/23/2024 8:11 AM EDT Patient called made aware of results and the need for 3 hour orders sent. Patient state feels like getting a UTI script sent for her. documented in this encounter Plan of Treatment Upcoming Encounters Date Type Department Care Team (Late st Contact Info) Description 10/04/2024 10:40 AM EDT Office Visit [facility] [address] [place] [address] Allen Carr MD [address] [place] [address] 10/08/2024 1:50 PM EDT Routine [facility] [address] [facility] [place] [address] Ha Baker DO [address] [facility] [address] [place], [place] [id number] Scheduled Orders Name Type Priority Associated Diagnoses Orde r Schedule Glucose tolerance, 3 hours Lab Routine Elevated glucose tolerance test Expected: 09/23/2024 (Approximate), Expires: 09/23/2025 documented as of this encounter Visit Diagnoses Diagnosis Elevated glucose tolerance test Impaired glucose tolerance test UTI symptoms documented in this encounter
--- OUTSIDE RECORDS SUMMARY | 2024-10-03 09:39 | XMS_ITS | Encounter Summary ---
Author Organization [facility] Address [address] [place] [address] Care Team Providers Care Software Technical Lead Name Role Phone Unavailable Primary Care Provider Unavailabl e Encounter Details Date Type Department Care Team (Late Contact Info) Description 09/06/2022 Abstract [facility] [address] [facility] [place] [address] Ha Baker DO [address] [address] [place], [id number] Social History Tobacco Use Types [...] [facility] [address] [place] [address] Allen Carr MD [address] [place] [address] 10/08/2024 1:50 PM EDT Routine [facility] OLMOSGYJarek [address] [facility] [place] [place] [address] Ha Baker DO [address] [place] [address] documented as of this encounter Visit Diagnoses Not on filedocumented in this encounter
--- OUTSIDE RECORDS SUMMARY | 2024-10-03 09:39 | XMS_ITS | Encounter Summary ---
Author Organization [facility] Address [address] [place] [address] Care Team Providers Care Paper Folding Machine Operator Name Role Phone Unavailable Primary Care Provider Unavailabl e Encounter Details Date Type Department Care Team (Late Contact Info) Description 09/06/2022 Abstract [facility] [address] [facility] [place] [address] Ha Baker DO [address] [facility] [address] [place], [facility] Social History Tobacco Use Types [...] [facility] [address] [place] [address] Allen Carr MD [address] [place] [address] 10/08/2024 1:50 PM EDT Routine [facility] OLMOSGYJarek [address] [facility] [place] [address] Ha Baker DO [address] [facility] [place] [address] documented as of this encounter Visit Diagnoses Not on filedocumented in this encounter
--- OUTSIDE RECORDS SUMMARY | 2024-10-03 09:40 | XMS_ITS | Encounter Summary ---
Author Organization [facility] Address [address] [facility] [place] [address] Care Team Providers Care Nursing Consultant Name Role Phone Unavailable Primary Care Provider Unavailabl e Encounter Details Date Type Department Care Team ([facility] Contact Info) Description 09/10/2024 Results Follow-Up [facility] [address] [facility] [address] [address] Marcie Flannery LPN [address] [employer] [place] [id number] Social History Tobacco Use Types Packs/Day Years [...] the 1 hour glucose. Order sent to [facility] * Result Encounter Note - Marcie Flannery LPN - 09/10/2024 10:42 AM EDT Attempted to call but she did not answer. Left detailed voicemail for pt to [facility] office back documented in this encounter Plan of Treatment Upcoming Encounters Date Type Department Care Team (Late st Contact Info) Description 10/04/2024 10:40 AM EDT Office Visit [facility] [address] [place] [address] Allen Carr MD [address] [place] [address] 10/08/2024 1:50 PM EDT Routine [facility] [address] [place] [address] Ha Baker DO [address] [facility] [place] [address] documented as of this encounter Visit Diagnoses Not on filedocumented in this encounter
--- OUTSIDE RECORDS SUMMARY | 2024-10-03 09:40 | XMS_ITS | Clinical Summary ---
Author Organization [employer] [facility] tem Address [id number] [address] [place] [address] Care Team Providers Care Prime Minister Name Role Phone No Pcp, No Pcp [...] - 09/02/2024 2:02 AM EDT Emergency [facility] [address] [place] [phone] Valerie Shen MD Constipation, unspecified constipation type [...] A) Negative, Indeterminate 09/02/2024 1:40 AM EDT [facility] Urine 09/02/2024 1:46 AM EDT 09/02/2024 1:40 AM EDT us Valerie Shen MD POINT OF CARE TEST ORDERABLES Fi nal Result [facility] [address] [place] [address], * (ABNORMAL) POCT Nursing Urine Macroscopic UA (09/02/2024 1:45 AM EDT) POC Urine Specific [place] >=1.030(A) 1.010, 1.015, 1.020, 1.025 09/02/2024 1:38 AM EDT [facility] POC Urine Leukocyte Esterase Negative Negative 09/02/2024 1:38 AM EDT [facility] POC Urine Nitrite Negative Negative 09/02/2024 1:38 AM EDT [facility] POC Urine pH 6.0 5.0, 6.0, 6.5, 7.0, 7.5, 8.0, 8.5, 5.5 09/02/2024 1:38 AM EDT [facility] POC Urine Protein Negative Negative 09/02/2024 1:38 AM EDT [facility] POC Urine Glucose Negative Negative 09/02/2024 1:38 AM EDT [facility] POC Urine Ketones Negative Negative 09/02/2024 1:38 AM EDT [facility] POC Urine Urobilinogen 0.2 E.U./dL 09/02/2024 1:38 AM EDT [facility] POC Urine Bilirubin Negative Negative 09/02/2024 1:38 AM EDT [facility] POC Urine Blood/HGB Trace(A) Negative 09/02/2024 1:38 AM EDT [facility] Urine 09/02/2024 1:45 AM EDT 09/02/2024 1:38 AM EDT us Valerie Shen MD POINT OF CARE TEST ORDERABLES Fi nal Result [facility] [address] [place] [address], from Last 3 Months Insurance [employer] Care Teams Prime Minister Relationship Specialty Start Date End Date No Pcp, [phone] [phone] PCP - General Family Medicine 04/28/22
--- OUTSIDE RECORDS SUMMARY | 2024-10-03 09:40 | XMS_ITS | Encounter Summary ---
Author Organization [facility] Address [address] [place] [address] Care Team Providers Care Iron Piler Name Role Phone Unavailable Primary Care Provider Unavailabl e Encounter Details Date Type Department Care Team (Late Contact Info) Description 07/29/2022 Orders Only [facility] [address] [place] [address] [place] [address] Provider, MD Mihir [address] [place], [place] [phone] Social History Tobacco Use Types Packs/Day Years [...] Visit [facility] [address] [place] [address] Allen Carr MD [address] [place] [address] 10/08/2024 1:50 PM EDT Routine [facility] [address] [facility] [phone] Ha Baker DO [address] [facility] [place] [address] documented as of this encounter Procedures Procedure [...]
--- OUTSIDE RECORDS SUMMARY | 2024-10-03 09:40 | XMS_ITS | Encounter Summary ---
Author Organization [facility] Address [address] [place] [address] Care Team Providers Care Planisher Name Role Phone Unavailable Primary Care Provider Unavailabl e Encounter Details Date Type Department Care Team (Late Contact Info) Description 09/11/2024 Abstract [facility] [address] [facility] [place] [address] Ha Baker DO [address] [facility] [address] [place], [place] [id number] Social History Tobacco Use Types Packs/Day Years [...] Description 10/04/2024 10:40 AM EDT Office Visit [facility] [address] [place] [address] Allen Carr MD [address] [place] [address] 10/08/2024 1:50 PM EDT Routine [facility] ANTHONY [address] [facility] [place] [address] Ha Baker DO [address] [facility] [place] [address] documented as of this encounter Visit Diagnoses Not on filedocumented in this encounter
--- OUTSIDE RECORDS SUMMARY | 2024-10-03 09:40 | XMS_ITS | Encounter Summary ---
Author Organization [facility] Address [address] [place] [address] Care Team Providers Care Bank Operations Officer Name Role Phone Unavailable Primary Care Provider Unavailabl e Encounter Details Date Type Department Care Team (Late Contact Info) Description 09/13/2024 Abstract [facility] [address] [facility] [place] [address] Ha Baker DO [address] [facility] [address] [place], [place] [id number] Social History Tobacco Use Types Packs/Day Years [...] [facility] [address] [place] [address] Allen Carr MD [address] [place] [address] 10/08/2024 1:50 PM EDT Routine [facility]ON[facility] [address] [facility] [place] [address] Ha Baker DO [address] [facility] [place] [address] documented as of this encounter Visit Diagnoses Not on filedocumented in this encounter
--- OUTSIDE RECORDS SUMMARY | 2024-10-03 09:40 | XMS_ITS | Encounter Summary ---
Author Organization [facility] Address [address] [place] [address] Care Team Providers Care Dean Name Role Phone Unavailable Primary Care Provider Unavailabl e Encounter Details Date Type Department Care Team (Late Contact Info) Description 02/01/2023 Clinisync Result Encounter [facility] External Department Unsolicited Ivy Baker, DO [address] [facility] [place] [address] Social History Tobacco Use Types Packs/Day Years [...] 10/04/2024 10:40 AM EDT Office Visit [facility] [place] [facility] [address] [place] [address] Allen Carr MD [address] [place] [address] 10/08/2024 1:50 PM EDT Routine [facility] [place] [facility] [address] [facility] [place] [address] Ivy Baker DO [address] [facility] [place] [address] documented as of this encounter Procedures Procedure Name Priority Date/Time Associated Diagnosis Comments US PELVIS TRANSVAGINAL 02/01/2023 10:00 AM EST documented in this encounter Results * US PELVIS TRANSVAGINAL (02/01/2023 10:00 AM EST) Anatomical Region Laterality Modality Other 02/01/2023 10:0 0 AM EST Narrative 02/01/2023 10:03 AM EST [address] [address] Ultrasound Report Signed Patient: BRITTNEE SMITH MR#: [id number] : 1995 Acct:[id number] Age/Sex: 27 / F ADM Date: 02/01/23 Loc: US Attending Dr: Ivy Baker D.O. Ordering Physician: Ivy Baker D.O. Date of Service: 02/01/23 Procedure(s): US pelvis transvaginal Accession Number(s): [id number] cc: Ivy Baker D.O.; Physician,Non-Staff M.D. The [address] [id number] Patient Name: BRITTNEE SMITH MRN: [id number] date: 1995 Sex: F Assigned Patient Location: US Current Patient Location: US Accession/Order Number: [id number] Exam Date: 02/01/2023 09:11 Report Date: 02/01/2023 [...] Signed By: 02/01/23 1003 DD/ 1000 TD/TT: Ip Litigation Associate: Procedure Note Radiology, Radiologist, - 02/01/2023 [place] [address] Ultrasound Report Signed Patient: BRITTNEE SMITH SMR#: [id number] : 1995Acct:[id number] Age/Sex: 27 / FADM Date: 02/01/23 Loc: US Attending Dr: Ivy Baker D.O. Ordering Physician: Ivy Baker D.O. Date of Service: 02/01/23 Procedure(s): US pelvis transvaginal Accession Number(s): [id number] cc: Ivy Baker D.O.; Physician,Non-Staff Mirela The [address] [address] Patient Name: BRITTNEE SMITH MRN: [facility]:[id number] date: 1995 Sex: F Assigned Patient Location: Current Patient Location: US Accession/Order Number: [id number] Exam Date: 02/01/2023 09:11 Report Date: 02/01/2023 [...] RAMSEY Date: 02/01/2023 10:00 Dictated By: Jenn Ramsye M.D. Signed By:02/01/23 1003 DD/ 1000 TD/TT: Ip Litigation Associate: us Ivy Baker DO [facility] Final Result documented in this encounter Visit Diagnoses Not on filedocumented in this encounter
--- OUTSIDE RECORDS SUMMARY | 2024-10-03 09:40 | XMS_ITS | Encounter Summary ---
Author Organization [facility] Address [address] [place] [address] Care Team Providers Care Design Chief Name Role Phone Unavailable Primary Care Provider Unavailabl e Encounter Details Date Type Department Care Team (Late Contact Info) Description 10/25/2022 Abstract [facility] [address] [place] [phone] Carolina Stone LPN [email or web address] [place] [id number] Social History Tobacco Use Types Packs/Day Years [...] EDT Office Visit [facility] [address] [place] [address] Allen Carr MD [address] [place] [address] 10/08/2024 1:50 PM EDT Routine [facility] [place] OLMOSGYJarek [address] [facility] [place] [address] Ha Baker DO [address] [facility] [place] [address] documented as of this encounter Visit Diagnoses Not on filedocumented in this encounter
--- OUTSIDE RECORDS SUMMARY | 2024-10-03 09:40 | XMS_ITS | Encounter Summary ---
Author Organization [employer] [facility] tem Address [id number] [address] [place] [address] Care Team Providers Care Data Communications Analyst Name Role Phone No Pcp, No Pcp Primary Care Provider Unavailabl e Encounter Details Date Type Department Care Team (Late st Contact Info) Description 08/24/2022 Orders Only Maternal- Medicine at [facility] [address] [place] [phone] Ref Prov, [place] [address] Social History Tobacco Use Types Packs/Day Years [...] on filedocumented in this encounter Care Teams Data Communications Analyst Relationship Specialty Start Date End Date No Pcp, [place] [address] PCP - General Family Medicine 04/28/22 documented as of this encounter
--- OUTSIDE RECORDS SUMMARY | 2024-10-03 09:40 | XMS_ITS | Encounter Summary ---
Author Organization [facility] Address [address] [place] [address] Care Team Providers Care Security Assurance Specialist Name Role Phone Unavailable Primary Care Provider Unavailabl e Encounter Details Date Type Department Care Team (Late Contact Info) Description 10/27/2022 Abstract [facility] [address] [place] [address] Carolina Stone LPN [address] [employer] [address] [place] [id number] Social History Tobacco Use Types Packs/Day Years [...] [facility] [address] [place] [address] Allen Carr MD [address] [place] [address] 10/08/2024 1:50 PM EDT Routine [facility] [place] [facility]LMOSGY[facility] [address] [facility] [place] [address] Ha Baker DO [address] [facility] [place] [address] documented as of this encounter Visit Diagnoses Not on filedocumented in this encounter
--- OUTSIDE RECORDS SUMMARY | 2024-10-03 09:40 | XMS_ITS | Patient Health Record ---
Author Organization [facility] [employer] 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 Problem Acute streptococcal pharyngitis (7290893051) Acute streptococcal pharyngitis (J02.0) Active confirmed Comment:rap id strep positive 10 days abx F/U 2 weeks EMPHASIZED THE NEED TO COMPLETE ALL 10 DAYS,Descri ption:Strep tococcal sore throat Problem Asthma (393056778) Asthma (J45.909) 000 Active confirmed Problem Health supervision of healthy infant or child receiving care (V20.1) (V20.1) Active confirmed Problem Allergic rhinitis (71801619) Allergic rhinitis (J30.9) 000 Active confirmed Problem History and physical examination, administrative (60351412) General medical examination for administrative purposes (V70.3) (V70.3) 006 Active confirmed Problem Dermatitis, atopic (691.) (691) 006 Active confirmed Problem Acute pharyngitis (375736659) Acute pharyngitis (J02.9) 010 Active confirmed Problem Acute bronchitis (disorder) (92979268) Bronchitis, acute (466.0) (466.0) Active confirmed Problem Well child visit (868151621) Routine or child health check (V20.2) (V20.2) 008 Active confirmed Problem Acute sinusitis (77122647) Acute infection of nasal sinus (J01.90) Problem resolved confirmed Comment:adv ised to take her zyrtec 10mg po daily- states that she has zyrtec at home,Descri ption:Acute sinusitis Plan Of Treatment No Information Insurance Providers Payer Name Payer Address Payer Phone Subscriber Number Group Number Insured Name Patient Relationship to Insured Coverage Start Date Coverage End Date [facility] [address] [address] [place] [address] [id number] Raya Mathur Self - patient is the insured 3 Medicaid CF after [employer] [address] [place] [address] [id number] Raya Mathur Self - patient is the insured 3 Medical (General) History Medical History History ICD Code 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
--- OUTSIDE RECORDS SUMMARY | 2024-10-03 09:40 | XMS_ITS | Encounter Summary ---
Author Organization [facility] Address [address] [place] [address] Care Team Providers Care Motors And Generators Inspector Name Role Phone Unavailable Primary Care Provider Unavailabl e Encounter Details Date Type Department Care Team (Late Contact Info) Description 08/05/2022 Orders Only [facility] ANTHONY [address] [place] [address] Calista Khan LPN Social History Tobacco [...] [facility] [address] [place] [address] Allen Carr MD [address] [place] [address] 10/08/2024 1:50 PM EDT Routine [facility] ANTHONY [address] [place] [address] Ha Baker, [address] [facility] [place] [address] documented as of this encounter Visit Diagnoses Not on filedocumented in this encounter
--- OUTSIDE RECORDS SUMMARY | 2024-10-03 09:40 | XMS_ITS | Encounter Summary ---
Author Organization [facility] Address [address] [place] [address] Care Team Providers Care Physical Therapy Aides Teacher Name Role Phone Unavailable Primary Care Provider Unavailabl e Encounter Details Date Type Department Care Team (Late Contact Info) Description 10/20/2022 Abstract [facility] [address] [place] [address] [place] [address] Calista Khan LPN Social History Tobacco [...] Visit [facility] [address] [place] [address] Allen Carr MD [address] [place] [address] 10/08/2024 1:50 PM EDT Routine [facility] ANTHONY [address] [facility] [place] [address] Ha Baker DO [address] [facility] [place] [address] documented as of this encounter Visit Diagnoses Not on filedocumented in this encounter
--- OUTSIDE RECORDS SUMMARY | 2024-10-03 09:40 | XMS_ITS | Patient Health Record ---
Author Organization [facility] Address [address] [place] [address] Care Team Providers Care Manager Discovery Name Role Phone emmy schultz Unavailable [phone] Allergies Allergen (clinical drug ingredient) Drug/Non Drug [...] Status W/U Status Risk Notes Problem Obesity (404013240) Obesity (BMI 35.0-39.9 without comorbidity) (E66.9) Active confirmed Plan Of Treatment Pending Test Test Name Order Date X ray : Spines, lumbosacral 08/14/2018 URINE RAPID TEST 08/14/2018 CMP Comprehensive Metabolic Panel w/ eGF R (75114) [facility] 08/14/2018 Lipid Panel w/ Reflex to Direct LDL (148 52) [facility] 08/14/2018 Vitamin D, 25-Hydroxy, Total, Immunoassa y (69070) - [facility] 08/14/2018 HEMOGLOBIN A1c (496) [facility] 08/14/2018 UA Urinalysis Complete (1785) [facility] 07/28 CBC (includes Differential and Platelets ) (9358) [facility] 08/14/2018 TSH and FREE T4 (17916) [facility] 08/14/2018 Insurance Providers Payer Name Payer Address Payer Phone Subscriber Number Group Number Insured Name Patient Relationship to Insured Coverage Start Date Coverage End Date [employer] [facility] PPO/POS/ HMO XPRESS [address] [place] [address] [id number] Raya Mathur Self - patient is the insured Medical (General) History Medical History History ICD Code high blood pressure THYROID DISORDER Surgical History Surgery Date(Month/Year) right hand surgery 10/11 Hospitalization History Reason Date(Month/Year) broken hand 09/10 induced 05/17/18
--- OUTSIDE RECORDS SUMMARY | 2024-10-03 09:40 | XMS_ITS | Encounter Summary ---
Author Organization [facility] Address [address] [place] [address] Care Team Providers Care Robotics Engineer Name Role Phone Unavailable Primary Care Provider Unavailabl e Encounter Details Date Type Department Care Team (Late Contact Info) Description 10/28/2022 Abstract [facility] [address] [place] [address] [place] [address] Calista Khan LPN [...] [facility] [address] [place] [address] Allen Carr MD [address] [place] [address] 10/08/2024 1:50 PM EDT Routine [facility] ANTHONY [address] [facility] [address] Ha Baker DO [address] [facility] [place] [address] documented as of this encounter Visit Diagnoses Not on filedocumented in this encounter
[2024-10-03 12:18] LABS: Glucose 1 Hour 161 mg/dL (<180)
[2024-10-03 13:06] LABS: Glucose 2 Hour 124 mg/dL (<155)
[2024-10-03 14:45] LABS: Glucose 3 Hour 124 mg/dL (<140)
== END 2024-10-03 09:35 | disposition home or self-care (01) ==
LOC: LAB 09:38
PROVIDERS: Visit Provider Obstetrics & Gynecology
DX: R73.09 Other abnormal glucose (principal)
CPT/HCPCS: 36415; 82951; 82952

== ENCOUNTER 2024-10-08 14:34 | Outpatient (OUT) | payer OTHER, SELFPAY ==
--- OUTSIDE RECORDS SUMMARY | 2024-10-08 15:07 | XMS_ITS | CCD ---
Author Organization [facility]iniSyky Care Team Providers Care Bench Manager Name Role Phone Scar Bellamy Primary Care [...] Unavailable SAMUEL ., DR HAYNES Admitting Unavailable Addie Hernandez Unavailable JUICE Swanson Attending Provider Linda Swanson Unavailable JUICE Altman Attending Provider NON STAFF Primary Care Provider Unavailabl e JUICE Victoria Attending Provider [phone] Linda Swanson Attending Unavailable Linda Swanson Admitting Unavailable Diana Altman Admitting Unavailable Diana Altman Attending Unavailable Amanda Victoria Admitting Unavailable Amanda Victoria Attending Unavailable NON STAFF Primary Care Unavailable Unavailable Primary Care Provider Unavailabl e NO PCP, NO PCP Primary Care Unavailable ALISHA ORDONEZ Attending Unavailable IVY BAKER Attending Unavailable ALLEN BRIZUELA Attending Unavailable ALLEN BRIZUELA F Referring Unavailable ALLEN BRIZUELA F Attending Unavailable Allergies Allergy Classification Reported Allergen(s) Allergy Type Date of Onset Reaction(s) Facility Sulfonamides (antibiotic) (1 source) Sulfonamides (Antibiotic) Drug Allergy 07-03-19 19 Rash [facility] (6 sources) Erythromycin / sulfiSOXAZOLE Drug Allergy 08-12-19 rash [facility] (1 source) Sulfonamides (Antibiotic) Drug allergy (disorder) 08-12-19 [facility] (19 sources) Substance with sulfonamide structure and antibacterial mechanism of action (substance) Drug allergy 07-19-19 rash, Other [employer] Other (6 sources) sulfiSOXAZOLE; Translations: [sulfisoxazole] Drug Allergy 04-18-19 [facility] (7 sources) Sulfonamides (Antibiotic); Translations: [Sulfa (Sulfonamide Antibiotics)] Allergy to substance 08-19-19 [facility] (6 sources) erythromycin base; Translations: [erythromycin base] Allergy to substance 04-18-19 [facility] (14 sources) Sulfamethoxazole Propensity to adverse reactions 08-19-19 Rash [facility] (14 sources) Other Allergy to substance 10-21-19 Rash, Other [facility] Work Phone: (1 source) Erythromycin / [...] propionate 0.05 mg/actuat metered dose nasal spray (14 sources) Corticosteroid Start: 08-15-2022 take 2 spray(s) nasal route once daily Fluticasone Propionate 50 MCG/ACT 2 sprays Nasally Once a day for 14 day(s) Jul, Active take 1 spray(s) nasal route once daily fluticasone (Flonase) 50 MCG/ACT nasal spray Administer 1 spray into each nostril Daily Shake gently. Before first use, prime pump. After use, clean tip and replace cap. Active levonorgestrel 0.470255 mg/hr intrauterine system (14 sources) Progestin, Progestin-containing Intrauterine Device Start: 12-26-2022 Levonorgestrel intrauterine device 52 mg levothyroxine sodium 0.3 mg oral tablet (20 sources) l-Thyroxine Start: 12-28-2022 End: 10-04-2025 take 1 tablet by mouth before mealtime Synthroid 300 MCG tablet Indications: Hypothyroidism, unspecified type Take 1 tablet (300 mcg) by mouth in the morning. Take before meals. 360 tablet 10/04/2024 10/04/2025 Active Start: 07-03-2018 take 2 tablets by [facility] once daily SYNTHROID 125 mcg tablet Take 2 tablets by mouth once daily. 60 tablet 11 07/03/2018 Active take 1 tablet by [facility] once daily in the morning Synthroid 300 MCG 1 tablet in the morning on an empty stomach Orally Once a day for 30 days Active Synthroid 200 MC G Oral for 30 Days Active Comment on above: Take 2 tablets by mo [facility] once daily. Magnesium Oxide (1 source) Magnesium [...] DIR ondansetron 4 mg disintegrating oral tablet (5 sources) Serotonin-3 Receptor Antagonist Start : 08-26 [...] Vit-Fe Fumarate-FA ( Vitamins) 28-0.8 MG tablet (8 sources) Start: 08-26-2024 End: 08-26-2025 take 1 tablet by mouth once daily Vit-Fe Fumarate-FA ( Vitamins) 28-0.8 MG tablet Indications: Positive urine test ([facility]) Take 1 tablet by mouth Daily 30 tablet 3 08/26/2024 08/26/2025 Active Completed/Discontinued Medications Medication Drug Class(es) Dates Sig (Normalized) Sig (Original) dextromethorphan hydrobromide 15 mg / guaiFENesin 400 mg / pseudoephedrine hydrochloride 60 mg oral tablet (5 sources) alpha-Adrenergic Agonist, Uncompetitive A-kzrhco-E-aspartate Receptor Antagonist, Sigma-1 Agonist Start: End: take 4 tablets by mouth every twenty-four [...] 200 MG PO Three times daily 9 3 October 10, 2023 12:00am November 20, 2023 [...] Date Documented Da te Episodic/Chronic Allergic reactions (13 sources) Atopic dermatitis; Translations: [Atopic dermatitis, unspecified] Onset: 08-04-2005 05-13-2024 Chronic Asthma (13 sources) Asthma; Translations: [Unspecified asthma, uncomplicated] Onset: 02-18-2000 05-13-2024 Chronic Chronic obstructive pulmonary disease and bronchiectasis (2 sources) Bronchitis; Translations: [Bronchitis, not specified as acute or chronic] 11-20-2023 Episodic Genitourinary symptoms and ill-defined conditions (1 source) Dysuria; Translations: [Dysuria] Onset: 10-10-2023 Episodic Headache; including migraine (14 sources) Cluster headache; Translations: [Cluster headache syndrome, unspecified, not intractable] Onset: 05-30-2023 05-30-2023 Chronic Inflammation; infection of eye (except that caused by tuberculosis or sexually transmitteddisease) (1 source) Hordeolum externum left upper eyelid Episodic Joint disorders and dislocations; trauma-related (13 sources) Chondromalacia of patella; Translations: [Chondromalacia patellae, unspecified knee] Onset: 05-27-2009 05-13-2024 Chronic Menstrual disorders (15 sources) Missed period; Translations: [Irregular menstruation, unspecified] Onset: 07-26-2022 07-26-2022 Chronic Nutritional deficiencies (4 sources) Vitamin D deficiency; Translations: [Vitamin D deficiency, unspecified] 08-09-2024 Chronic Other complications of (13 sources) Maternal obesity complicating , childbirth and the puerperium, antepartum; Translations: [Obesity complicating , unspecified trimester] Onset: 11-13-2018 05-13-2024 Chronic Other complications of (4 sources) Thyroid disease in ; Translations: [Endocrine, [...] Chronic Other nutritional; endocrine; and metabolic disorders (13 sources) Body mass index 30+ - obesity; Translations: [Obesity, unspecified] Onset: 11-16-2017 05-13-2024 Chronic Other nutritional; endocrine; and metabolic disorders (2 sources) Severe obesity; Translations: [Class 3 severe obesity due to excess calories without serious comorbidity with body mass index (BMI) of 40.0 to 44.9 in adult ([facility])] 08-09-2024 Chronic Other screening for suspected conditions (not mental disorders or infectious disease) (4 sources) Encounter for screening for malignant neoplasm of cervix; Translations: [ENC SCREENING MALIG NEOPLASM CERV] Onset: 07-26-2022 Episodic Other upper respiratory disease (13 sources) Allergic rhinitis; Translations: [Allergic rhinitis, unspecified] [...] [Injury, unspecified, initial encounter] Onset: 12-13-2022 Unclassified (14 sources) Unable to comply with treatment; Translations: [Unable to comply with treatment] Onset: 07-26-2022 07-26-2022 Unclassified (1 source) Constipated - 9 Weeks Onset: 09-01-2024 Urinary tract infections (6 sources) Acute urinary tract infection; Translations: [Urinary tract infection, site not specified] 10-10-2023 Episodic Viral infection (5 sources) Viral infection, unspecified; Translations: [Disease caused by 2019-nCoV] Episodic Past or Other Problems Problem Classification Problem Date Documented Date Episodic/Chronic Acute bronchitis (13 sources) Acute bronchitis; Translations: [Acute bronchitis, unspecified] Onset: 05-13-2024 05-13-2024 Episodic Contraceptive and procreative management (19 sources) Patient encounter status; Translations: [Encounter for removal of intrauterine contraceptive device] Onset: 05-31-2023 03-26-2024 Episodic Deficiency and other anemia (14 sources) Anemia; Translations: [Anemia, unspecified] Onset: 07-26-2022 07-26-2022 Episodic Hypertension complicating ; childbirth and the puerperium (14 sources) -induced hypertension; Translations: [Gestational [-induced] hypertension without significant proteinuria, unspecified trimester] Onset: 04-29-2018 Resolved: 11-04-2022 11-28-2022 Episodic Immunizations and screening for infectious disease (20 sources) Contact with and (suspected) exposure to other viral communicable diseases; Translations: [Contact with or exposure to other viral diseases] Onset: 05-31-2023 Episodic Other complications of (14 sources) Anemia of ; Translations: [Anemia complicating , unspecified trimester] Onset: 04-24-2018 Resolved: 11-04-2022 11-28-2022 Chronic Other and delivery including normal (20 sources) Encounter for supervision of normal , unspecified, second trimester; Translations: [Encounter for supervision of normal , unspecified, unspecified trimester] Onset: 11-28-2017 Resolved: 11-04-2022 Episodic Other upper respiratory infections (20 sources) Acute sinusitis, unspecified; Translations: [Acute pharyngitis] Onset: 09-10-2009 Episodic Results Test Name Value Interpretation Reference Range Facil ity GLUCOSE TOLERANCE 3 HOURon 0 10-03-2024 GLUCOSE TOLERANCE 3 HOUR mg/dL [facility] Comment on above: GLU FAST 86 (<95) Co l: 10/03/24 1024 GLU 1HR 161 (<180) Col: 10/03/24 1122 GLU 2HR 124 (<155) Col: 10/03/24 1224 GLU 3HR 124 (<140) Col: 10/03/24 1325 [facility] ALL CBC WITH AUTO DIFFon BASOPHILS ABSOLUTE AUTO 0.1 [facility] Basophils/100 WBC (Bld) 0.5 % 0.2 - 2.0 % [facility] Eosinophils/100 WBC (Bld) 2 % 0.9 - 7.0 % [facility] Erythrocyte distribution width (RBC) [Ratio] 12.7 % 11.0 - 15.0 % [facility] Hematocrit (Bld) [Volume fraction] 36.6 % 36.0 - 48.0 % [facility] Hemoglobin (Bld) [Mass/Vol] 12.5 g/dL 12.0 - 16.0 g/dL [facility] IMMATURE GRANULOCYTES ABS AUTO 0.04 High [facility] Immature granulocytes/100 WBC (Bld) 0.4 % 0.0 - 0.5 % [facility] Interpretation and review of laboratory results Abnormal [facility] LYMPHOCYTES ABSOLUTE AUTO 2.8 [facility] Lymphocytes/100 WBC (Bld) 29.9 % 20.5 - 60.0 % [facility] MCH (RBC) [Entitic mass] 28.7 pg 26.7 - 34.0 pg [facility] MCHC (RBC) [Mass/Vol] 34.2 g/dL 29.9 - 35.2 g/dL [facility] MCV (RBC) [Entitic vol] 83.9 fL 81.0 - 99.0 fL [facility] MONOCYTES ABSOLUTE AUTO 0.5 [facility] Monocytes/100 WBC (Bld) 5.2 % 1.7 - 12.0 % [facility] NEUTROPHILS ABSOLUTE AUTO 5.9 [facility] Neutrophils/100 WBC (Bld) 62 % 43.0 - 75.0 % [facility] Platelet mean volume (Bld) [Entitic vol] 10.8 fL 9.5 - 13.5 fL [facility] TBH EO # 0.2 [facility] TBH PLT 226 [facility] RBC 4.36 [facility] WBC 9.5 [facility] ALL CBC WITH AUTO DIFFon BASOPHILS ABSOLUTE AUTO 0.1 [facility] Basophils/100 WBC (Bld) 0.5 % 0.2 - 2.0 % [facility] Eosinophils/100 WBC (Bld) 1.2 % 0.9 - 7.0 % [facility] Erythrocyte distribution width (RBC) [Ratio] 12.6 % 11.0 - 15.0 % [facility] Hematocrit (Bld) [Volume fraction] 36.8 % 36.0 - 48.0 % [facility] Hemoglobin (Bld) [Mass/Vol] 12.6 g/dL 12.0 - 16.0 g/dL [facility] IMMATURE GRANULOCYTES ABS AUTO 0.05 High [facility] Immature granulocytes/100 WBC (Bld) 0.4 % 0.0 - 0.5 % [facility] Interpretation and review of laboratory results Abnormal [facility] LYMPHOCYTES ABSOLUTE AUTO 3.3 [facility] Lymphocytes/100 WBC (Bld) 28.5 % 20.5 - 60.0 % [facility] MCH (RBC) [Entitic mass] 28.8 pg 26.7 - 34.0 pg [facility] MCHC (RBC) [Mass/Vol] 34.2 g/dL 29.9 - 35.2 g/dL [facility] MCV (RBC) [Entitic vol] 84 fL 81.0 - 99.0 fL [facility] MONOCYTES ABSOLUTE AUTO 0.6 [facility] Monocytes/100 WBC (Bld) 5.5 % 1.7 - 12.0 % [facility] NEUTROPHILS ABSOLUTE AUTO 7.4 High [facility] Neutrophils/100 WBC (Bld) 63.9 % 43.0 - 75.0 % [facility] Platelet mean volume (Bld) [Entitic vol] 10.9 fL 9.5 - 13.5 fL [facility] EO # 0.1 [facility] PLT 239 [facility] RBC 4.38 [facility] WBC 11.5 High [facility] HCG ( test) Ql (U)o n 09-05-2024 Interpretation and review of laboratory results Abnormal [facility] Preg Test, Ur Positive Negative [facility] US OB TRANSVAGINALon 025 US OB TRANSVAGINAL [...] UA Negative Negative - 4(70) +++ mg/dL [facility] Blood, UA Negative Negative - 50 John/mcL [facility] Clarity, UA Clear [facility] Color, UA Yellow [facility] Glucose, UA Negative Negative - 2000(110) ++++ mg/dL [facility] Interpretation and review of laboratory results Normal [facility] Ketones, UA Negative Negative - 160(16) ++++ mg/dL [facility] Leukocytes, UA Negative Negative - 500+++ Anderson/mcL [facility] Nitrite, UA Negative Negative - Positive [facility] pH, UA 6 5 - 9 [facility] Protein, UA Negative Negative - 2000(20) ++++ mg/dL [facility] Spec Grav, UA 1.02 1 - 1.03 [facility] Urobilinogen, UA 1.0 0.2 - 12 mg/dL [facility] POCT NURSING URINE MACROSCOP IC UAon 09-02-2024 BILIRUBIN ROX Negative Normal Negative [facility] Comment on above: Performed By: #### N UM #### [facility] ([address] [address] VIR BLOOD/HGB ROX Trace Abnormal Negative [facility] Comment on above: Performed By: #### N UM #### [facility] ([address] [address] VIR GLUCOSE ROX Negative Normal Negative [facility] Comment on above: Performed By: #### N UM #### [facility] ([address] [address] VIR KETONES ROX Negative Normal Negative [facility] Comment on above: Performed By: #### N UM #### [facility] ([address] [place] [address] VIR LEUKOCYTE ESTERASE ROX Negative Normal Negative [facility] Comment on above: Performed By: #### N UM #### [facility] ([address] [address] VIR NITRITE ROX Negative Normal Negative [facility] Comment on above: Performed By: #### N UM #### [facility] ([address] [place] [address] VIR PH ROX 6.0 Normal 5.0, 6.0, 6.5, 7.0, 7.5, 8.0, 8.5, 5.5 [facility] Comment on above: Performed By: #### N UM #### [facility] ([address] [address] VIR PROTEIN ROX Negative Normal Negative [facility] Comment on above: Performed By: #### N UM #### [facility] ([address] [address] VIR SPECIFIC GRAVITY ROX >=1.030 Abnormal 1.010, 1.015, 1.020, 1.025 [facility] Comment on above: Performed By: #### N UM #### [facility] ([address] [address] VIR UROBILINOGEN ROX 0.2 E.U./dL Normal [facility] Comment on above: Performed By: #### N UM #### [facility] ([address] [address] VIR POCT , URINE (NUCG) on 09-02-2024 Beta HCG ( test) Ql (U) Positive Abnormal Negative, Indeterminate [facility] Comment on above: Performed By: #### N UCG #### [facility] ([address] [address] VIR TBH PREG QUANT HCGon 025 HCG QUANTITATIVE [address] mIU/mL [facility] Comment on above: 5-50 0.2-1 WEEK 50-500 1-2 WEEKS 100-5,000 2-3 WEEKS 500-10,000 3-4 WEEKS 1,000-50,000 4-5 WEEKS 10,000-100,000 5-6 WEEKS 15,000-200,000 6-8 WEEKS 10,000-100,000 2-3 MONTHS [facility] TBH PREG QUANT HCGon 08-19- 025 HCG QUANTITATIVE 288[address] mIU/mL [facility] Comment on above: 5-50 0.2-1 WEEK 50-500 1-2 WEEKS 100-5,000 2-3 WEEKS 500-10,000 3-4 WEEKS 1,000-50,000 4-5 WEEKS 10,000-100,000 5-6 WEEKS 15,000-200,000 6-8 WEEKS 10,000-100,000 2-3 MONTHS [facility] IUD Removalon 03-26-2024 Brandy Galeana NARCISO 03/27/2024 12:35 PM IUD Removal Date/Time: 03/26/2024 1:59 PM Performed by: Ivy Baker DO Authorized by: Ivy Baker DO Consent: Consent obtained: Written Consent given by: Patient Procedure risks and benefits discussed: yes Patient questions answered: yes Patient agrees, verbalizes understanding, and wants to proceed: yes Educational handouts given: yes Instructions and paperwork completed: yes [place] protocol: Patient states understanding of procedure being [...] for annual exam unless needed otherwise [facility] No Panel InformationOrdered By: Amanda Victoria on 11-20-2023 COVID Antigen (POC) [facility] Quick Strep (POC) [facility] XR chest 2V*on 11-20-2023 XR chest 2V* [place] [facility] [address] [address] XRay Report Signed Patient: Brittnee Smith MR#: [id number] 11 : 1995 Acct:[id number] Age/Sex: 28 / F ADM Date: 11/20/23 Loc: XDUCLY Room: Type: [facility] Attending Dr: Amanda Victoria APRN Copies to: Amanda Victoria APRN Ordering Provider: Amanda Victoria APRN Date of Service: 11/20/23 XR/XR chest 2V*: COUGH Chest 2 views CLINICAL HISTORY: Productive cough chest congestion for 3 weeks. COMPARISON: None FINDINGS: Heart normal size. Lungs are clear. No free air. XR/XR chest 2V* IMPRESSION: NO ACUTE CARDIOPULMONARY ABNORMALITY. Impression dictated by: Shlomo De Anda Jr., D.O.11/20/2023 2:04 PM Dictation Location: RADIO-PC-12 Transcribed By: [facility] 11/20/23 1404 Dictated By: Shlomo De Anda Jr, DO 11/20/23 1403 Signed By: 11/20/23 140 Normal [facility] Laboratory - Chemistry and C hemistry - challengeon 10-10-2023 Bilirubin Ql (U) Negative [facility] Glucose (U) [Mass/Vol] Negative [facility] Ketones Ql (U) Negative [facility] pH (U) 7.0 [pH] [facility] Specific gravity (U) [Rel density] 1.030 [facility] Urobilinogen (U) [Mass/Vol] 0.2 mg/dL [facility] Laboratory - Specimen inform ationon 10-10-2023 Appearance (U) cloudy [facility] Color (U) yellow [facility] Laboratory - Urinalysison Leukocyte esterase Test strip Ql (U) small [facility] Nitrite Ql (U) Positive [facility] Protein Ql (U) 100 [facility] No Panel Informationon 10-09 Urine Occ[address] Blood large [facility] Urine Cultureon 10-10-2023 Bacteria identified Cx Nom (U) ORGANISM: Escherichia coli (O:ESCCOL) [place] Count >100,000 Aerobic MEENA Charge ([id number]) ------ [...] RESISTANT TO ALL B-LACTAM DRUGS. PERFORMED BY: [place] [address] PATHOLOGIST SENIOR M[employer] UNDERWRITER ROXANNE DIETRICH M.D. Normal [facility] Comment on above: Performed By: #### C UU #### [facility] [address] [place] [address] Urine culture routineOrdered By: Diana Altman on 10-10-2023 Bacteria identified Cx Nom (U) Escherichia coli Abnormal [facility] No Panel InformationOrdered By: Linda Swanson on 04-18-2023 COVID/Influenza Antigen (POC) [facility] COVID/FLU/RSV RT-PCRon 04-06 SARS-CoV-2 (COVID-19) RNA NIHCOLE+probe Ql (Unsp spec) Negative [place] [employer] Other COVID/FLU/RSV RT-PCR Negative [place] [employer] Other XR ankle LT min 3V*on 2022 XR ankle LT min 3V* [facility] [employer] Other XR ankle LT min 3V* [facility] [employer] Other XR ankle LT min 3V* [facility] [employer] Other XR ankle LT min 3V* [facility] [place] [employer] Other XR ankle LT min 3V* XRay Report [place] [employer] Other XR ankle LT min 3V* Signed [employer] Other XR ankle LT min 3V* Patient: Brittnee Smith MR#: [id number] [facility] [employer] Other XR ankle LT min 3V* 11 [place] [employer] Other XR ankle LT min 3V* : 1995 Acct:[id number] [employer] Other XR ankle LT min 3V* Age/Sex: 27 / F ADM Date: 12/13/22 [employer] Other XR ankle LT min 3V* Loc: XDUCLY Room: Type: [facility] [employer] Other XR ankle LT min 3V* Attending Dr: Linda Swanson [employer] Other XR ankle LT min 3V* Copies to: Linda Swanson BLADE BONER [employer] Other XR ankle LT min 3V* Ordering Provider: Linda Swanson APRN [employer] Other XR ankle LT min 3V* Date of Service: 12/13/22 [employer] Other XR ankle LT min 3V* XR/XR ankle LT min 3V*: [id number] [employer] Other XR ankle LT min 3V* LEFT ANKLE - 3 views [employer] Other XR ankle LT min 3V* CLINICAL DATA: Patient fell down stairs injuring left ankle today. Generalized pain and swelling. [employer] Other XR ankle LT min 3V* COMPARISON: None [employer] Other XR ankle LT min 3V* AP, lateral and oblique views were obtained. There is no evidence of fracture or dislocation. The [employer] Other XR ankle LT min 3V* talar dome is intact. A tiny plantar calcaneal spur is present. There is mild diffuse soft tissue [employer] Other XR ankle LT min 3V* swelling, greater anteriorly. [employer] Other XR ankle LT min 3V* XR/XR ankle LT min 3V* [employer] Other XR ankle LT min 3V* IMPRESSION: [employer] Other XR ankle LT min 3V* NO ACUTE BONY INJURY. [employer] Other XR ankle LT min 3V* Impression dictated by: Brandy Shields M.D.12/13/2022 9:49 AM [employer] Other XR ankle LT min 3V* Dictation Location: [place] [address] [employer] Other XR ankle LT min 3V* Transcribed By: PERLA 12/13/22948 [employer] Other XR ankle LT min 3V* Dictated By: Brandy Shields MD 12/13/22946 [employer] Other XR ankle LT min 3V* Signed By: [employer] Other XR ankle LT min 3V* 12/13/22948 No rth [employer] Other XR ankle LT min 3V* [place] [facility] [place] [address] [place] [address] XRay Report Signed Patient: Brittnee Smith MR#: [id number] 11 : 1995 Acct:[id number] Age/Sex: 27 / F ADM Date: 12/13/22 Loc: XDUCLY Room: Type: [facility] CLI Attending Dr: Linda Swanson APRN Copies to: [...] Brandy Shields M.D.12/13/2022 9:49 AM Dictation Location: [place] [address] Transcribed By: [facility] 12/13/22948 Dictated By: Brandy Shields MD 12/13/2247 Signed By: 12/13/229[address] Normal [facility] AFP MATERNAL FOR SPINA BIFID Aon 07-01-2022 AFP MoM 0.73 Normal [facility] Comment on above: Result Comment: This is a corrected report. The previously reported result was: AFP MoM See interpretation. 06/29/2022 Performed By: #### A FPMAT #### [facility] [address] [place] [address] Dr. Cathleen Godwin AFP Value 35.4 ng/mL Normal [facility] Comment on above: Performed By: #### A FPMAT #### [facility] [address] [place] [address] [address] Cathleen Godwin AFP, Serum for Spina Bifida Comment Normal [facility] Comment on above: Result Comment: The MOM and risk factors of this report have been modified based on new information supplied to us by the client or their designated service support representative. The Weight was changed from Not provided. to 222. This is a corrected report. The previously reported result was: Results Report 06/29/2022 Performed By: #### A FPMAT #### [facility] [address] [address] [address] Cathleen Godwin Comment Comment Normal [facility] Comment on above: Result Comment: Bruna Hollingsworth, Ph.D., [facility] Director . References: Available Upon Request. . Multiples Of Median Cutoffs For AFP Elevations Wolfe 2.5 Black 2.8 IDD 2.0 Twins 4.5 Abbreviation Definitions IDD - Insulin Dep Diabetes OSBR - Open Spina Bifida Risk . For further inquiries contact [employer] at [phone]. . This test was developed and its performance characteristics determined by [employer]. It has not been cleared or approved by the Food and Drug Administration. Performed By: #### A FPMAT #### [facility] [address] [address] [address] Cathleen Godwin Gest Age Collection Date 20.4 weeks [facility] Comment on above: Performed By: #### A FPMAT #### [facility] [address] [address] [address] Cathleen Godwin Gestat, Age Based on Ultrasound Normal [facility] Comment on above: Result Comment: 20.4 on 06/27/2022 Recalculations are not recommended when gestational dating by LMP and ultrasound are within 10 days. Performed By: #### A FPMAT #### [facility] [id number] Cathleen Godwin Insulin Dep Diabetes No Normal [facility] Comment on above: Performed By: #### A FPMAT #### [facility] [address] [place] [address] Dr. Cathleen Godwin Interpretation Comment Normal [facility] Comment on above: Result Comment: Inte rpretation: [...] Customer Services to discuss available options. The [employer] recommends amniocentesis [...] information. Performed By: #### A FPMAT #### [facility] [address] [place] [address] Dr. Cathleen Godwin [age] Normal [facility] Comment on above: Performed By: #### A FPMAT #### [facility] [address] [address] [address] Cathleen Godwin Multiple Gestation No Normal The [facility] Comment on above: Performed By: #### A FPMAT #### [facility] [address] [address] [address] Cathleen Godwin [place] [id number] Normal [facility] Comment on above: Result Comment: This is a corrected report. The previously reported result was: OSBR Risk 1 IN See interpretation. 06/29/2022 Performed By: #### A FPMAT #### [facility] [address] [place] [address] Dr. Cathleen Godwin PDF . Normal [facility] Comment on above: Performed By: #### A FPMAT #### [facility] [address] [place] [address] Dr. Cathleen Godwin Race Normal [facility] Comment on above: Performed By: #### A FPMAT #### [facility] [address] [place] [address] Dr. Cathleen Godwin Test Results: Negative Normal [facility] Comment on above: Result Comment: This is a corrected report. The previously reported result was: Test Results: See interpretation. 06/29/2022 Performed By: #### A FPMAT #### [facility] [address] [place] [address] Dr. Cathleen Godwin HEP B SURFACE ANTIGEN SCREEN on 06-28-2022 HBsAg Screen Negative Normal Negative [facility] Comment on above: Performed By: #### H BSANS #### [facility] [address] [place] [address] Dr. Cathleen Godwin HEPATITIS C VIRUS AB W/ REFL EX QUANTon 06-28-2022 HCV AB Non-Reactive Normal Non Reactive [facility] Comment on above: Performed By: #### H CVPCRR #### [facility] [address] [place] [address] Dr. Cathleen Godwin Interpretation: Comment Normal [facility] Comment on above: Result Comment: Not infected with HCV unless early or acute infection is suspected (which may be delayed in an immunocompromised individual), or other evidence exists to indicate HCV infection. Performed By: #### H CVPCRR #### [facility] [address] [place] [address] Dr. Cathleen Godwin HIV 1 AND 2 WITH REFLEXon HIV Screen 4th Generation wRfx Non-Reactive Normal Non Reactive [facility] Comment on above: Result Comment: HIV Negative HIV-1/HIV-2 antibodies and HIV-1 p24 antigen were NOT detected. There is no laboratory evidence of HIV infection. Performed By: #### H IV12 #### [facility] [address] [place] [address] Dr. Cathleen Godwin RPR QUANTon 06-28-2022 Rapid Plasma Reagin, Quant Non-Reactive Normal NonRea<1:1 The [facility] Comment on above: Result Comment: Plea se Note: This test does not meet current guidelines for screening and diagnosis of syphilis. This test is intended for following treatment response in patients being treated for syphilis infection. To screen for syphilis infection, a reflex cascade that includes both RPR and a treponema-specific assay should be utilized, such as Treponema pallidum (Syphilis) Screening [place] (314019) or Rapid Plasma Reagin (RPR) Test With Reflex to Quantitative RPR and Confirmatory Treponema pallidum Antibodies (547103). Performed By: #### R PRQ #### [facility] [address] [place] [address] Dr. Cathleen Godwin RUBELLA AB IGGon 06-28-2022 Rubella Antibodies, IgG 1.39 index Normal Immune >0.99 The [facility] Comment on above: Result Comment: Non- immune <0.90 Equivocal 0.90 - 0.99 Immune >0.99 Performed By: #### R UBIGG ####[facility] [id number] [address]Dr. Cathleen Godwin CBC AUTO DIFFon 06-27-2022 BASO # 0.0 103/ul Normal 0.0-0.1 The [facility] Comment on above: Performed By: #### C BC #### [facility] [address] [place] [address] Dr. Cathleen Godwin Basophils/100 WBC (Bld) 0.3 % Normal 0.2-2.0 The [facility] Comment on above: Performed By: #### C BC #### [facility] [address] [place] [address] Dr. Cathleen Godwin EO # 0.2 103/ul Normal 0.0-0.7 The [facility] Comment on above: Performed By: #### C BC #### [facility] [address] [place] [address] Dr. Cathleen Godwin Eosinophils/100 WBC (Bld) 1.3 % Normal 0.9-7.0 [facility] Comment on above: Performed By: #### C BC #### [facility] [address] [place] [address] Dr. Cathleen Godwin Erythrocyte distribution width (RBC) [Ratio] 13.2 % Normal 11.0-15.0 [facility] Comment on above: Performed By: #### C BC #### [facility] [address] [place] [address] Dr. Cathleen Godwin Hematocrit (Bld) [Volume fraction] 32.9 % Critically low 36.0-48.0 [facility] Comment on above: Performed By: #### C BC #### [facility] [address] [place] [address] Dr. Cathleen Godwin Hemoglobin (Bld) [Mass/Vol] 11.3 g/dL Critically low 12.0-16.0 [facility] Comment on above: Performed By: #### C BC #### [facility] [address] [place] [address] Dr. Cathleen Godwin IG # 0.18 10e3/ul Critically high 0.00-0.03 [facility] Comment on above: Performed By: #### C BC #### [facility] [address] [place] [address] Dr. Cathleen Godwin IG % 1.6 % Critically high 0.0-0.5 [facility] Comment on above: Performed By: #### C BC #### [facility] [address] [place] [address] Dr. Cathleen Godwin LYMPH # 2.6 103/ul Normal 1.2-3.8 The [facility] Comment on above: Performed By: #### C BC #### [facility] [address] [place] [address] Dr. Cathleen Godwin Lymphocytes/100 WBC (Bld) 22.5 % Normal 20.5-60.0 [facility] Comment on above: Performed By: #### C BC #### [facility] [address] [place] [address] Dr. Cathleen Godwin MANUAL DIFF REQ NO Normal [facility] Comment on above: Performed By: #### C BC #### [facility] [address] [place] [address] Dr. Cathleen Godwin MCH (RBC) [Entitic mass] 29.4 pg Normal 26.7-34.0 [facility] Comment on above: Performed By: #### C BC #### [facility] [address] [place] [address] Dr. Cathleen Godwin MCHC (RBC) [Mass/Vol] 34.3 g/dL Normal 29.9-35.2 The [facility] Comment on above: Performed By: #### C BC #### [facility] [address] [place] [address] Dr. Cathleen Godwin MCV (RBC) [Entitic vol] 85.5 fL Normal 81.0-99.0 The [facility] Comment on above: Performed By: #### C BC #### [facility] [address] [place] [address] Dr. Cathleen Godwin MONO # 0.5 103/ul Normal 0.3-0.8 The [facility] Comment on above: Performed By: #### C BC #### [facility] [address] [place] [address] Dr. Cathleen Godwin Monocytes/100 WBC (Bld) 4.5 % Normal 1.7-12.0 [facility] Comment on above: Performed By: #### C BC #### [facility] [address] [place] [address] Dr. Cathleen Godwin NEUT # 8.1 103/ul Critically high 1.4-6.5 [facility] Comment on above: Performed By: #### C BC #### [facility] [address] [place] [address] Dr. Cathleen Godwin Neutrophils/100 WBC (Bld) 69.8 % Normal 43.0-75.0 The [facility] Comment on above: Performed By: #### C BC #### [facility] [address] [address] [address] Cathleen Godwin Platelet mean volume (Bld) [Entitic vol] 10.8 fL Normal 9.5-13.5 [facility] Comment on above: Performed By: #### C BC #### [facility] [address] [address] [address] Cathleen Godwin PLT 223 103/ul Normal 150-450 [facility] Comment on above: Performed By: #### C BC #### [facility] [address] [address] [address] Cathleen Godwin RBC 3.85 106/ul Critically low 4.20-5.40 [facility] Comment on above: Performed By: #### C BC #### [facility] [address] [address] [address] Cathleen Godwin WBC 11.5 103/ul Critically high 4.0-11.0 [facility] Comment on above: Performed By: #### C BC #### [facility] [address] [address] [address] Cathleen Godwin CULTURE URINEon 06-27-2022 CULTURE URINE Culture Observations: LIGHT GROWTH OF MIXED GENITAL KASIA. NO POTENTIAL PATHOGENS SEEN. Normal The [facility] Comment on above: Performed By: #### U RCX ####[facility] [id number] [address] Cathelen Godwin GLYCOHEMOGLOBIN A1Con 2022 ADA RECOMMENDATION SEE BELOW Normal [facility] Comment on above: Result Comment: ADA RECOMMENDED LIMIT 4.0 - 6.0 ADA THERAPEUTIC TARGET < 7.0 ACTION SUGGESTED > 7.0 Performed By: #### A 1C #### [facility] [address] [address] [address] Cathleen Godwin Glucose [Mass/Vol] 114 mg/dL Normal The [facility] Comment on above: Performed By: #### A 1C #### [facility] [address] [address] [address] Cathleen Godwin HbA1c (Bld) [Mass fraction] 5.6 % Normal 4.5-6.2 [facility] Comment on above: Performed By: #### A 1C #### [facility] [address] [address] [address] Cathleen Godwin TSHon 06-27-2022 TSH 14.370 uIU/mL Critically high 0.358-3.740 [facility] Comment on above: Performed By: #### T SH #### [facility] [id number] Cathleen Godwin TYPE AND SCREENon 06-27-2022 TYPE AND SCREEN Negative Normal [facility] Comment on above: Performed By: #### T NS #### [facility] [address] [address] [address] Cathleen Godwin US PREG ANATOMY SINGLEon [...] by: CHRISTIANNE ULLOA Date: 2022-06-27 15:17 Normal [facility] Vital Signs Date Time Vital Sign Value Performing Clinician Facility 10-04-2024 10:07-0400 Body height 160 cm Allen Brizuela MD Work Phone: [facility] 10-04-2024 10:07-0400 Body mass index (BMI) [Ratio] 39.86 kg/m2 Allen Brizuela MD Work Phone: [facility] 10-04-2024 10:07-0400 Body weight 102.06 kg Allen Brizuela MD Work Phone: [facility] 10-04-2024 10:07-0400 Diastolic blood pressure 78 mm[Hg] Allen Brizuela MD Work Phone: [facility] 10-04-2024 10:07-0400 Heart rate 77 /min Allen Brizuela MD Work Phone: [facility] 10-04-2024 10:07-0400 Respiratory rate 16 /min Allen Brizuela MD Work Phone: [facility] 10-04-2024 10:07-0400 SaO2% (BldA) [Mass fraction] 99 % Allen Brizuela MD Work Phone: [facility] 10-04-2024 10:07-0400 Systolic blood pressure 108 mm[Hg] Allen Brizuela MD Work Phone: [facility] 09-05-2024 14:05-0400 Body mass index (BMI) [Ratio] 39.2 kg/m2 Samuel Ob [facility] 09-05-2024 14:05-0400 Body weight 103.6 kg Samuel Ob [facility] 08-09-2024 11:20-0400 Body height 162.6 cm Allen Brizuela MD Work Phone: [facility] 08-09-2024 11:20-0400 Body mass index (BMI) [Ratio] 40.17 kg/m2 Allen Brizuela MD Work Phone: [facility] 08-09-2024 11:20-0400 Body weight 106.14 kg Allen Brizuela MD Work Phone: [facility] 08-09-2024 11:20-0400 Heart rate 93 /min Allen Brizuela MD Work Phone: [facility] 08-09-2024 11:20-0400 Respiratory rate 16 /min Allen Brizuela MD Work Phone: [facility] 08-09-2024 11:20-0400 SaO2% (BldA) [Mass fraction] 99 % Allen Brizuela MD Work Phone: [facility] 03-26-2024 13:29-0500 Body mass index (BMI) [Ratio] 40.94 kg/m2 Ivy Samuel DO Work Phone: [facility] 03-26-2024 13:29-0500 Body weight 104.83 kg Ivy Samuel DO Work Phone: [facility] 03-26-2024 13:29-0500 Diastolic blood pressure 74 mm[Hg] Ivy Samuel DO Work Phone: [facility] 03-26-2024 13:29-0500 Systolic blood pressure 116 mm[Hg] Ivy Samuel DO Work Phone: [facility] 11-20-2023 13:08-0400 Body height 162.56 cm JUICE Altman Work Phone: [facility] 11-20-2023 13:08-0400 Body mass index (BMI) [Ratio] 38.7 kg/m2 BLADE BONERJarek Altman Work Phone: [facility] 11-20-2023 13:08-0400 Body temperature 97.9 [degF] JUICE Altman Work Phone: [facility] 11-20-2023 13:08-0400 Body weight 102.51 kg JUICE Altman Work Phone: [facility] 11-20-2023 13:08-0400 Diastolic blood pressure 75 mm[Hg] JUICE Altman Work Phone: [facility] 11-20-2023 13:08-0400 Heart rate 80 /min JUICE Altman Work Phone: [facility] 11-20-2023 13:08-0400 SaO2% (BldA) [Mass fraction] 98 % JUICE Altman Work Phone: [facility] 11-20-2023 13:08-0400 Systolic blood pressure 110 mm[Hg] JUICE Altman Work Phone: [facility] 10-10-2023 17:54-0400 Body height 162.56 cm [facility] 10-10-2023 17:54-0400 Body mass index (BMI) [Ratio] 37.6 kg/m2 [facility] 10-10-2023 17:54-0400 Body temperature 98.2 [degF] [facility] 10-10-2023 17:54-0400 Body weight 99.56 kg [facility] 10-10-2023 17:54-0400 Diastolic blood pressure 82 mm[Hg] [facility] 10-10-2023 17:54-0400 Heart rate 90 /min [facility] 10-10-2023 17:54-0400 Respiratory rate 18 /min [facility] 10-10-2023 17:54-0400 SaO2% (BldA) [Mass fraction] 96 % [facility] 10-10-2023 17:54-0400 Systolic blood pressure 122 mm[Hg] [facility] 04-18-2023 11:10-0500 Body height 162.56 cm [facility] 04-18-2023 11:10-0500 Body mass index (BMI) [Ratio] 38.6 kg/m2 [facility] 04-18-2023 11:10-0500 Body temperature 98.2 [degF] [facility] 04-18-2023 11:10-0500 Body weight 102.05 kg [facility] 04-18-2023 11:10-0500 Heart rate 95 /min [facility] 04-18-2023 11:10-0500 Respiratory rate 16 /min [facility] 04-18-2023 11:10-0500 SaO2% (BldA) [Mass fraction] 99 % [facility] 04-06-2023 09:05-0500 Body height 160.02 cm Linda Swanson Other [facility] [employer] Other 04-06-2023 09:05-0500 Body mass index (BMI) [Ratio] 38.97 kg/m2 Linda Swanson Other [employer] Other 04-06-2023 09:05-0500 Body temperature 99.1 [degF] Linda Swanson Other [employer] Other 04-06-2023 09:05-0500 Body weight 99.79 kg Linda Swanson Other [employer] Other 04-06-2023 09:05-0500 Respiratory rate 18 /min Linda Swanson Other [employer] Other 04-06-2023 09:05-0500 SaO2% (BldA) [Mass fraction] 99 % Linda Swanson Other [employer] Other 01-30-2023 15:40-0500 Body height 160.02 cm Addie Hernandez Other [facility] 01-30-2023 15:40-0500 Body mass index (BMI) [Ratio] 39.78 kg/m2 Addie Hernandez Other [employer] Other 01-30-2023 15:40-0500 Body temperature 98 [degF] Addie Hernandez Other [employer] Other 01-30-2023 15:40-0500 Body weight 101.88 kg Addie Hernandez Other [employer] Other 01-30-2023 15:40-0500 Body weight 101.87 kg [facility] 01-30-2023 15:40-0500 Diastolic blood pressure 64 mm[Hg] Addie Hernandez Other [facility] 01-30-2023 15:40-0500 Respiratory rate 18 /min Addie Hernandez Other [facility] [employer] Other 01-30-2023 15:40-0500 SaO2% (BldA) [Mass fraction] 98 % Addie Hernandez Other [facility] [employer] Other 01-30-2023 15:40-0500 Systolic blood pressure 131 mm[Hg] Addie Hernandez Other [facility] 12-13-2022 09:05-0400 Body height 160.02 cm Linda Swanson Other [employer] Other 12-13-2022 09:05-0400 Body mass index (BMI) [Ratio] 38.97 kg/m2 Linda Swanson Other [employer] Other 12-13-2022 09:05-0400 Body temperature 98.2 [degF] Linda Swanson Other [employer] Other 12-13-2022 09:05-0400 Body weight 99.79 kg Linda Swanson Other [employer] Other 12-13-2022 09:05-0400 Diastolic blood pressure 76 mm[Hg] Linda Swanson Other [employer] Other 12-13-2022 09:05-0400 Respiratory rate 18 /min Linda Swanson Other [employer] Other 12-13-2022 09:05-0400 SaO2% (BldA) [Mass fraction] 98 % Linda Swanson Other [employer] Other 12-13-2022 09:05-0400 Systolic blood pressure 112 mm[Hg] Linda Swanson Other [employer] Other 08-15-2022 12:00-0400 Body height 160.02 cm Addie Herndonmond Other [employer] Other 08-15-2022 12:00-0400 Body mass index (BMI) [Ratio] 40.21 kg/m2 Addie Herndonmond Other [employer] Other 08-15-2022 12:00-0400 Body temperature 97.7 [degF] Addie Herndonmond Other [employer] Other 08-15-2022 12:00-0400 Body weight 102.97 kg Addie Herndonmond Other [employer] Other 08-15-2022 12:00-0400 Diastolic blood pressure 72 mm[Hg] Addie Mayr Other [employer] Other 08-15-2022 12:00-0400 Respiratory rate 18 /min Addie Mary Other [employer] Other 08-15-2022 12:00-0400 SaO2% (BldA) [Mass fraction] 98 % Addie Hernandez Other [employer] Other 08-15-2022 12:00-0400 Systolic blood pressure 118 mm[Hg] Addie Mary Other [employer] Other 07-01-2022 14:08-0400 Body weight 100.[address] IVY BAKER . The [facility] Comment on above: Result Comment: This is a corrected repo rt. The previously reported result was: Weight 06/29/2022 Not provided. . Performed By: #### A FPMAT #### [facility] [address] [place] [address] Dr. Cathleen Godwin Encounters Encounter Date Encounter Type Care Provider Facility Start: 10-08-2024 End: 10-08-2024 Bamboo flowsheet Ivy Samuel DO [facility] Start: 10-08-2024 End: 10-08-2024 Bamboo flowsheet [facility] Start: 10-04-2024 End: 10-04-2024 Bamboo flowsheet [facility] Start: 10-04-2024 End: 10-04-2024 Bamboo flowsheet Allen Brizuela MD Work Phone: [facility] Start: 10-04-2024 End: 10-04-2024 Office outpatient visit 25 minutes Allen Brizuela MD Work Phone: [facility] 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 (Primary Dx); Vitamin D deficiency; Encounter for dietary consultation; Thyroid disease during , first trimester (HCC); Hypothyroidism, unspecified type Start: 10-04-2024 End: 10-04-2024 ambulatory ALLEN BRIZUELA Not Available Start: 10-03-2024 End: 10-03-2024 Clinisync Result Encounter Ivy Samuel DO Work Phone: [facility] External Department Unsolicited Start: 10-03-2024 End: 10-03-2024 Clinisync Result Encounter Ivy Samuel DO Work Phone: [facility] External Department Unsolicited Start: 09-19-2024 End: 09-19-2024 Clinisync Result Encounter Ivy Samuel DO Work Phone: [facility] External Department Unsolicited Start: 09-19-2024 End: 09-19-2024 Clinisync Result Encounter Ivy Samuel DO Work [...] department patient visit NO PCP NO PCP [facility] Start: 08-21-2024 End: 08-21-2024 Clinisync Result Encounter Ivy Samuel DO Work Phone: [facility] External Department Unsolicited Start: 08-21-2024 End: 08-21-2024 Clinisync Result Encounter Ivy Samuel DO Work Phone: [facility] External Department Unsolicited Start: 08-19-2024 End: 08-19-2024 Clinisync Result Encounter Ivy Samuel DO Work Phone: [facility] External Department Unsolicited Start: 08-19-2024 End: 08-19-2024 Clinisync Result Encounter Ivy Nowako DO Work Phone: [facility] External Department Unsolicited Start: 08-09-2024 End: 08-09-2024 Bamboo flowsheet Allen Brizuela MD Work Phone: [facility] Start: 08-09-2024 End: 08-09-2024 Bamboo flowsheet Allen Brizuela MD Work Phone: [facility] Start: 08-09-2024 End: 08-09-2024 ambulatory ALLEN BRIZUELA Not Available Start: 08-09-2024 End: 08-09-2024 Office outpatient visit 25 minutes Allen Brizuela MD Work Phone: [facility] 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 (Primary Dx); Vitamin D deficiency; Encounter for dietary consultation; Class 3 severe obesity due to excess calories without serious comorbidity with body mass index (BMI) of 40.0 to 44.9 in adult ([facility]); Thyroid disease during , first trimester ([facility] Hypothyroidism, unspecified type Start: 05-13-2024 Patient encounter status Allen Brizuela MD Work Phone: [facility] Start: 03-26-2024 End: 03-26-2024 Patient encounter procedure Ivy Nowako DO Work Phone: [facility] Comment on above: Encounter for remova l of intrauterine contraceptive device (IUD) Start: 03-26-2024 End: 03-26-2024 ambulatory IVY SAMUEL Not Available Start: 11-20-2023 End: 11-20-2023 Patient encounter procedure JUICE Altman Work Phone: [facility] Work Phone: Start: 11-20-2023 End: 11-20-2023 ambulatory NON STAFF [facility] Work Phone: Start: 11-20-2023 End: 11-20-2023 ambulatory NON STAFF [facility] Work Phone: Start: 11-20-2023 End: 11-20-2023 Patient encounter procedure JUICE Altman Work Phone: [facility] Work Phone: Start: 10-10-2023 End: 10-10-2023 Departed Referred JUICE Altman Work Phone: [facility] [place] Work Phone: Start: 10-10-2023 End: 10-10-2023 ambulatory Diana Altman [facility] Work Phone: Start: 10-10-2023 End: 10-10-2023 Patient encounter procedure [facility] Work Phone: Start: 04-18-2023 End: 04-18-2023 ambulatory [facility] Work Phone: Start: 04-18-2023 End: 04-18-2023 Patient encounter procedure [facility] Work Phone: Start: 04-06-2023 End: 04-06-2023 ambulatory Linda Swanson Other [employer] Other Start: 04-06-2023 Office outpatient vi sit 25 minutes Linda Swanson [facility] Start: 02-02-2023 End: 02-02-2023 ambulatory Linda Swanson Other [facility] [employer] Other Start: 02-02-2023 Telephone encounter Linda Swanson [facility] [address] Start: 01-30-2023 End: 01-30-2023 ambulatory Addie Hernandez Other [employer] Other Start: 01-30-2023 Office outpatient vi sit 15 minutes Addie Hernandez [facility] Start: 01-30-2023 End: 01-30-2023 Patient encounter procedure [facility] Work Phone: Start: 12-13-2022 Office outpatient vi sit 15 minutes Linda Swanson [facility] Start: 12-13-2022 End: 12-13-2022 Patient encounter procedure BLADE BONER Linda Swanson Work Phone: [facility] Work Phone: Start: 12-13-2022 End: 12-13-2022 ambulatory Linda Swanson [facility] Work Phone: Start: 08-15-2022 End: 08-15-2022 ambulatory Addie Hernandez Other [employer] Other Start: 08-15-2022 Office outpatient ne w 20 minutes Addie Hernandez [facility] Start: 07-26-2022 End: 07-26-[address] IVY BAKER . Facility: Start: 06-27-2022 End: 06-28-[address] IVY BAKER . Facility: Start: 06-27-2022 End: 06-28-[address] IVY BAKER . Facility: Start: 06-10-2020 End: 06-10-2020 ambulatory Jose A Stewart Work Phone: COVID Vaccine Steven Procedures Date Procedure Procedure Detail Performing Clinician Start: 10-03-2024 GLUCOSE TOLERANCE 3 HOUR Ivy Samuel DO Work Phone: Start: 09-19-2024 ALL CBC WITH AUTO DIFF Ivy Samuel DO Work Phone: Start: 09-06-2024 ALL CBC WITH AUTO DIFF [...] Phone: Start: 11-20-2023 COVID Antigen (POC) APR N Diana Altman Work Phone: Start: 11-20-2023 Quick Strep (POC) BLADE BONER Diana Altman Work Phone: Start: 11-20-2023 Plain chest X-ray BLADE BONER Diana Marioley Work Phone: Start: 10-10-2023 Urine culture BLADE BONER Gaston Altman Work Phone: Start: 04-18-2023 COVID/Influenza Anti gen (POC) Start: 12-13-2022 X-ray of left ankle APR Jarek Mckeon Swanson Work Phone: Plan of Treatment Date Care Activity Detail Author Start: 11-14-2024 End: 11-14-2024 Patient encounter procedure 11/14/2024 11:20 AM EDT Office Visit [facility] [address] [place] [address] Allen Brizuela MD [address] [place] [address] [facility] Start: 10-08-2024 End: 10-08-2024 Patient encounter procedure [facility] Comment on above: Arrived Start: 10-04-2024 End: 10-04-2025 Thyrotropin [Units/volume] in Serum or Plasma TSH Lab Routine Alfredo's disease Thyroid disease during , first trimester (HCC) Expected: 10/04/2024 (Approximate), Expires: 10/04/2025 [facility] Comment on above: Expected: 10/04/2024 (Approximate), Expi res: 10/04/2025 Start: 10-04-2024 End: 10-04-2025 Thyroxine (T4) free [Mass/volume] in Serum or Plasma T4, free Lab Routine Alfredo's disease Thyroid disease during , first trimester (HCC) Expected: 10/04/2024 (Approximate), Expires: 10/04/2025 [facility] Comment on above: Expected: 10/04/2024 (Approximate), Expi res: 10/04/2025 Start: 10-04-2024 End: 10-04-2025 Triiodothyronine (T3) Free [Mass/volume] in Serum or Plasma T3, free Lab Routine Alfredo's disease Thyroid disease during , first trimester (HCC) Expected: 10/04/2024 (Approximate), Expires: 10/04/2025 [facility] Work Phone: Comment on above: Expected: 10/04/2024 (Approximate), Expi res: 10/04/2025 Start: 10-04-2024 End: 10-04-2024 Patient encounter procedure [facility] Comment on above: Arrived Start: 09-05-2024 End: 09-05-2025 ABO/Rh ABO/Rh Lab Routine Missed menses , unspecified gestational age ([facility] Expected: 09/05/2024 (Approximate), Expires: 09/05/2025 [facility] Comment on above: Expected: 09/05/2024 (Approximate), Expi res: 09/05/2025 Start: 09-05-2024 End: 09-05-2025 Blood type and Indirect antibody screen panel - Blood Type and screen Lab Routine Missed menses , unspecified gestational age ([facility]) Expected: 09/05/2024 (Approximate), Expires: 09/05/2025 [facility] Work Phone: Comment on above: Expected: 09/05/2024 (Approximate), Expi res: 09/05/2025 Start: 09-05-2024 End: 09-05-2025 Drugs of abuse panel - Urine by Screen method Rapid drug screen, urine Lab Routine , unspecified gestational age ([facility]) Encounter for supervision of normal first in first trimester ([facility]CC) Expected: 09/05/2024 (Approximate), Expires: 09/05/2025 [facility] Comment on above: Expected: 09/05/2024 (Approximate), Expi res: 09/05/2025 Start: 09-05-2024 End: 09-05-2024 ambulatory 09/05/2024 1:30 PM EDT Initial [facility] [address] [place] [address] [facility] Start: 09-05-2024 End: 09-05-2024 Professional / ancillary services management 09/05/2024 1:00 PM EDT Ancillary Procedure [facility] [address] [place] [address] [facility] Start: 08-09-2024 End: 08-09-2025 Thyrotropin [Units/volume] in Serum or Plasma TSH Lab Routine Alfredo's disease Thyroid disease during , first trimester ([facility]) Expected: 08/09/2024 (Approximate), Expires: 08/09/2025 [facility] Comment on above: Expected: 08/09/2024 (Approximate), Expi res: 08/09/2025 Start: 08-09-2024 End: 08-09-2025 Thyroxine (T4) free [Mass/volume] in Serum or Plasma T4, free Lab Routine Alfredo's disease Thyroid disease during , first trimester ([facility]) Expected: 08/09/2024 (Approximate), Expires: 08/09/2025 [facility] Comment on above: Expected: 08/09/2024 (Approximate), Expi res: 08/09/2025 Start: 08-09-2024 End: 08-09-2025 Triiodothyronine (T3) Free [Mass/volume] in Serum or Plasma T3, free Lab Routine Alfredo's disease Thyroid disease during , first trimester ([facility]) Expected: 08/09/2024 (Approximate), Expires: 08/09/2025 [facility] Work Phone: Comment on above: Expected: 08/09/2024 (Approximate), Expi res: 08/09/2025 Start: 10-10-2023 Bacteria identified in Urine by Culture [facility] Start: 07-09-2023 Urine microalbumin profile DTAP,TDAP,TD (2 - Td) [facility] Start: 12-11-2020 PAP TESTING PAP TESTING [facility] Start: 10-28-2020 Influenza vaccination INFLUENZA (Season Ended) [facility] Start: 2011 HEPATITIS C SCREENING HEPATITIS C SCREENING [facility] Start: 2011 HIV SCREENING HIV SCREENING [facility] Start: 2005 Adult depression screening assessment DEPRESSION SCREENING [facility] Bacteria identified in Urine by Culture Urine culture Microbiology Routine Missed menses Ordered: 09/05/2024 [facility] Comment on above: Ordered: 09/05/2024 CBC W Auto Different ial panel - Blood CBC and differential Lab Routine Missed menses , unspecified gestational age ([facility]-HCC) Ordered: 09/05/2024 [facility] Comment on above: Ordered: 09/05/2024 Hemoglobin A1c/Hemoglobin.total in Blood Hemoglobin A1c Lab Routine Missed menses , unspecified gestational age ([facility]-HCC) Ordered: 09/05/2024 [facility] Comment on above: Ordered: 09/05/2024 Hepatitis B virus andrade rface Ag [Presence] in Serum or Plasma by Immunoassay Hepatitis B surface antigen Lab Routine Missed menses , unspecified gestational age ([facility]-HCC) Ordered: 09/05/2024 [facility] Comment on above: Ordered: 09/05/2024 Hepatitis C virus Ab [Presence] in Serum or Plasma by Immunoassay Hepatitis C antibody Lab Routine Missed menses , unspecified gestational age ([facility]CC) Ordered: 09/05/2024 [facility] Comment on above: Ordered: 09/05/2024 HIV-1/HIV-2 antigen/antibody combination immunoassay HIV-1 and HIV-2 antibodies Lab Routine Missed menses , unspecified gestational age ([facility]) Ordered: 09/05/2024 [facility] Comment on above: Ordered: 09/05/2024 Reagin Ab [Presence] in Serum by RPR RPR Lab Routine Missed menses , unspecified gestational age ([facility]) Ordered: 09/05/2024 [facility] Comment on above: Ordered: 09/05/2024 Rubella antibody, IgG Rubella an tibody, IgG Lab Routine Missed menses , unspecified gestational age ([facility]) Ordered: 09/05/2024 [facility] Comment on above: Ordered: 09/05/2024 End: 08-09-2020 SARS-COVID VACCINE 1ST DOSE APPT SARS-COVID VACCINE 1ST DOSE APPT Procedures Routine 1 Occurrences starting 06/10/2020 until 08/09/2020 [facility] Comment on above: 1 Occurrences starting 06/10/2020 until 08/09/2020 XR Chest 2 Views [facility] Immunizations Immunization Date Immunization Notes Care Provider Harriett corbin 08-04-2005 tetanus toxoid, redu sanchez diphtheria toxoid, and acellular pertussis vaccine, adsorbed Allen Brizuela MD Work Phone: [facility] Payers Date Payer Category Payer Medicaid (Managed Care) [employer] [id number] 2022 Self-pay 2022 Medicaid [id number] 2018 Private Health Insurance [employer] A ET[employer] PPO [id number] 2018-Present PPO [id number] 2018 Private Health Insurance [employer] A [employer] PPO [id number] 2018-Present PPO [id number] 1993 Unknown [id number]. 593 1993 Unknown [id number]. 593 1993 Unknown [id number] [id number]. 593 1993 Unknown [id number] [id number]. 1286 1993 Unknown [id number] [id number]. 1259 1993 Unknown [id number] [id number]. 1259 1993 Unknown [id number] [id number]. 1259 1993 Unknown [id number] [id number]. 1259 1993 Unknown [id number] [id number]. 1259 Unknown [id number] [id number]. 531 Unknown [id number] [id number]. 531 Unknown [id number] 531 Social History Date Type Detail Facility Start: 07-02-2018 End: 08-07-2023 Tobacco smoking status [facility] Never smoker [facility] Start: 07-02-2018 End: 08-07-2023 Tobacco use and exposure Never used [facility] Start: 07-02-2018 End: 09-05-2024 Alcohol intake Current drinker of alcohol (finding) [facility] Start: 1995 Sex Assigned At Not on file [facility] Start: 08-07-2023 End: 08-09-2024 Sex Assigned At [facility] Start: 1995 Sex Assigned At Female [facility] Start: 08-07-2023 End: 08-09-2024 Alcoholic beverage intake [facility] Start: 09-04-2022 Alcohol Comment Alcohol: 1 or 2 drinks, 2 to 4 times a month; Caffeine: 1 can /week [facility] Start: 07-26-2022 Gender identity Identifies as female gender (finding) [facility] Start: 07-26-2022 Sexual orientation Heterosexual (finding) [facility] Start: 07-19-2024 [facility] Clinical Notes 06-10-2020 to 09-05-2024 Marcie [...] 11/16/2017 Unable to comply with treatment 07/26/2022 ([facility]) 11/28/2017 Exposure to STD 05/31/2023 Encounter for weight management 05/31/2023 Dermatitis, atopic 08/04/2005 Allergic rhinitis 02/18/2000 Asthma ([facility]) 02/18/2000 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 Acute bronchitis 05/13/2024 Acute pharyngitis 09/10/2009 Acute streptococcal pharyngitis 05/13/2024 Encounter for childhood immunizations appropriate for age 0708/30/2007 Obesity affecting , antepartum ([facility]) 11/13/2018 Hyperthyroidism 11/28/2017 Resolved Ambulatory Problems Diagnosis Date Noted Anemia of ([facility]) 04/24/2018 -induced hypertension ([facility]) 04/29/2018 Past Medical History: Diagnosis Date Body [...] dipstick manually resulted , unspecified gestational age ([facility]) - Type and screen; Future - ABO/Rh; Future - CBC and differential - Hemoglobin A1c - RPR - Rubella antibody, IgG - Hepatitis B surface antigen - Hepatitis C antibody - HIV-1 and HIV-2 antibodies - Rapid drug screen, urine; Future Encounter for supervision of normal first in first trimester ([facility]) - Rapid drug screen, urine; Future [...] or undercooked meat, and stay away from [facility]. Patient has also been advised to not [...] Marcie Flannery LPN documented in this encounter [facility] 08-09-2024 History of Presen t illness [...] (BMI) of 40.0 to 44.9 in adult ([facility]) Thyroid disease during , first trimester ([facility]) - Synthroid 300 MCG tablet; Take 1 tablet (300 mcg) by mouth Daily - T3, free; Future - T4, free; Future - TSH; Future She just found she is , we will check free T4 free T3 to keep it in the high-normal. Follow up in about 2 months (around 10/09/2024). documented in this encounter [facility] 03-26-2024 History of Presen t illness [...] nursing note reviewed. Exam conducted with a wireworker supervisor present. Vitals: Estimated body mass index is [...] given: yes Instructions and paperwork completed: yes [place] protocol: Patient states understanding of procedure being [...] Ivy Baker DO documented in this encounter [facility] 04-06-2023 Evaluation note Encounter Date Diagnosis [...] treatment plan. Patient left in stable condition. [facility] 12-04-2023 Evaluation note* Encounter Date Diagnosis [...] the ER for worsening symptoms or concerns [facility] 10-17-2023 Evaluation note* Encounter Date Diagnosis [...] understanding and is agreeable to treatment plan [facility] 06-19-2023 Evaluation note* Encounter Date Diagnosis [...] Tylenol as needed for aches or pains. [facility] 04-14-2021 NotePatient Outreach ([facility]) BRITTNEE SMITH ([id number]) 1995 F Date Time Provider Department 06/10/20 JOSE A STEWART [facility] During your visit today, we recorded the following information about you: Allergies As of Date: 06/10/2020 Noted Allergy Reaction SULFA (SULFONAMIDE ANTIBIOTICS) 07/02/2018 2 - Rash Date Reviewed: 07/02/2018 Reviewed by: Sakina HWANG) - Fully Assessed Order(s):SARS-COVID VACCINE 1ST DOSE APPT [[id number]] Order #: [id number] FUTURE SARS-COVID VACCINE 1ST DOSE APPT [[id number]] Order #: [id number] Prescriptions as of 06/10/2020 Sig: SYNTHROID 125 MCG TABLET Take 2 tablets by mouth once * Problem List As Of Date: 06/10/2020 (None) Encounter Status:Closed by APRIL NIXON on 06/15/20[facility] assessment information available[facility] Work Phone: Evaluation noteNo InformationNortWell[facility] [employer] Other Evaluation note* Diagnosis Onset Date Resolution Status Acute UTI acute [facility] Work Phone: Evaluation note* Diagnosis Onset Date Resolution Status Acute UTI acute Bronchitis acute [facility] Work Phone: Evaluation note* Diagnosis Encounter for removal of intrauterine contraceptive device (IUD) documented in this encounter [facility] HealthcareEvaluation note* Diagnosis Alfredo's disease- Primary Chronic lymphocytic thyroiditis Vitamin D deficiency Encounter for dietary consultation Class 3 severe obesity due to excess calories without serious comorbidity with body mass index (BMI) of 40.0 to 44.9 in adult ([facility]) Thyroid disease during , first trimester ([facility]) Hypothyroidism, unspecified type documented in this encounter [facility] HealthcareEvaluation note* Diagnosis Missed menses , unspecified gestational age ([facility]) Encounter for supervision of normal first in first trimester ([facility]) documented in this encounter [facility] HealthcareEvaluation note* Diagnosis Alfredo's disease- Primary Chronic lymphocytic thyroiditis Vitamin D deficiency Encounter for dietary consultation Thyroid disease during , first trimester (HCC) Hypothyroidism, unspecified type documented in this encounter [facility] HealthcareHistory general Narrative - Reported* Type Description Date Medical History Hypothyroid Surgical History hand surgery So[facility] [employer] Other [facility] general Narrative - Reported* Type Description Date Medical History Hypothyroid Surgical History hand surgery Hospitalization History childbirth [facility] [employer] Other History of Present illness Narrative* Allen Brizuela MD - 10/04/2024 10:40 AM EDT Brittnee Smith is a 29 y.o. female No ref. provider found presents with chief complaint of Thyroid Problem and Follow-up HPI: IM : follow up on 10/04/2024 for uncontrolled hypothyroidism. on levothyroxine 300 mcg daily. She is 13 weeks , due date 04/11/2024. IM : 07/2023 follow up on 08/10/2023 [...] uncontrolled hypothyroidism. TSH back in June 2022 and November 2022 7.72, recently increased from 250 to 300. 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 SUBJECTIVE: MEDICATIONS: Current Outpatient Medications Medication Instructions fluticasone (Flonase) 50 MCG/ACT nasal spray 1 spray, Daily Vit-Fe Fumarate-FA ( Vitamins) 28-0.8 MG tablet 1 tablet, Oral, Daily Synthroid 300 mcg, Oral, Daily Synthroid 300 mcg, Oral, Daily before breakfast ALLERGIES: Allergies Allergen Reactions Sulfa Antibiotics Other [...] SYSTEM REVIEWED AND NEGATIVE OBJECTIVE: Visit Vitals BP 108/78 Pulse 77 Resp 16 Ht 5' 3 Wt 225 lb LMP 06/26/2024 SpO2 99% BMI 39.86 kg/m OB Status Smoking Status Never BSA 2.13 m Physical Exam Constitutional: Appearance: Normal appearance. [...] orders for this visit: Alfredo's disease - T3, free; Future - T4, free; Future - TSH; Future We will continue with levothyroxine 300 mcg daily we will try to do PA for Synthroid. Vitamin D deficiency Encounter for dietary consultation Thyroid disease during , first trimester (HCC) - T3, free; Future - T4, free; Future - TSH; Future We will try to keep her free T4 free T3 high normal during her . Hypothyroidism, unspecified type - Synthroid 300 MCG tablet; Take 1 tablet (300 mcg) by mouth in the morning. Take before meals. Follow up in about 6 weeks (around 11/15/2024). [facility] Purpose Family History Relationship Condition Age at Onset Recorded Date/T ambreen Not Specified No pertinent family history Unknown Advance Directives Advance Directive Response Recorded Date/ Time Advance [...] or prosecute any alcohol or drug abuse patient.[facility] INFORMATION SOURCE (unrecogn ized section and content) DATE CREATED AUTHOR 06/17/2020 [facility] DATE CREATED AUTHOR AUTHOR'S ORGANIZ ATION 08/05/2022 [facility] DATE CREATED AUTHOR AUTHOR'S ORGANIZ ATION 11/28/2023 [facility] DATE CREATED AUTHOR AUTHOR'S ORGANIZ ATION 09/05/2024 [facility] DATE CREATED AUTHOR AUTHOR'S ORGANIZ ATION 10/06/2024 [facility] EPIC REASON FOR VISIT (unrecogniz ed section and content) Reason Comments Removal of Mirena IUD Reason Comments Thyroid Problem Reason Comments Amenorrhea Reason Comments Thyroid Problem Follow-up Care Teams (unrecognized sec tion and content) [...] BE BASED ON THE PRIMARY CLINICAL RECORDS. [facility] [employer] provides no warranty or guarantee of the accuracy or completeness of information in this document.
[2024-10-08 15:59] LABS: Free T3 3.06 pg/mL (2.18-3.98); Thyroid Stimulating Hormone 1.526 uIU/mL (0.358-3.740)
== END 2024-10-08 14:35 | disposition home or self-care (01) ==
LOC: LAB 14:36
PROVIDERS: Visit Provider Internal Medicine
DX: O99.281 Endocrine, nutritional and metabolic diseases complicating pregnancy, first trimester (principal); E06.3 Autoimmune thyroiditis; E07.9 Disorder of thyroid, unspecified
CPT/HCPCS: 36415; 84439; 84443; 84481

== ENCOUNTER 2024-11-07 19:25 | Outpatient (REF) | payer OTHER, SELFPAY ==
--- OUTSIDE RECORDS SUMMARY | 2024-11-07 19:29 | XMS_ITS | CCD ---
Author Organization [facility] Care Team Providers Care Planning Engineer Name Role Phone Scar Bellamy Primary Care [...] Addie Hernandez Unavailable JUICE Swanson Attending Provider [phone] Linda Swanson Unavailable JUICE Altman Attending Provider [phone] NON STAFF Primary Care Provider UnavailJUICE Lawrence Attending Provider Linda Swanson Attending Unavailable Linda Swanson Admitting Unavailable Diana Altman Admitting Unavailable Diana Altman Attending Unavailable Amanda Victoria Admitting Unavailable Amanda Victoria Attending Unavailable NON STAFF Primary Care Unavailable Unavailable Primary Care Provider Unavailabl e IVY BAKER Attending Unavailable ALLEN BRIZUELA Attending Unavailable ALLEN BRIZUELA F Referring Unavailable ALLEN BRIZUELA Attending Unavailable IVY BAKER Attending Unavailable NO PCP, NO PCP Primary Care Unavailable ALISHA ORDONEZ Attending Unavailable NO PCP, NO PCP Primary Care Unavailable Allergies Allergy Classification Reported Allergen(s) Allergy Type Date of Onset Reaction(s) Facility Sulfonamides (antibiotic) (1 source) Sulfonamides (Antibiotic) Drug Allergy 07-03-19 Rash [facility] (6 sources) Erythromycin / sulfiSOXAZOLE Drug Allergy 08-12-19 rash [facility] (1 source) Sulfonamides (Antibiotic) Drug allergy (disorder) 08-12-19 [facility] (20 sources) Substance with sulfonamide structure and antibacterial mechanism of action (substance) Drug allergy 07-19-19 12 [employer], Other [facility] Other (6 sources) sulfiSOXAZOLE; Translations: [sulfisoxazole] Drug Allergy 04-18-19 [facility] (7 sources) Sulfonamides (Antibiotic); Translations: [Sulfa (Sulfonamide Antibiotics)] Allergy to substance 08-19-19 [facility] (6 sources) erythromycin base; Translations: [erythromycin base] Allergy to substance 04-18-19 [facility] (19 sources) Sulfamethoxazole Propensity to adverse reactions 08-19-19 Rash [facility] (19 sources) Other Allergy to substance 10-21-19 Rash, Other [facility] Work Phone: (1 source) Erythromycin [...] 12 hrs for 10 day(s) Jul, Active bisacodyl 10 mg rectal suppository (5 sources) Stimulant Laxative Start: 10-08-2024 End: 10-18-2024 bisacodyl (Dulcolax) 10 MG suppository Indications: Constipation, unspecified constipation type UNWRAP AND INSERT 1 SUPPOSITORY RECTALLY DAILY FOR 10 DAYS 10 suppository 10/11/2024 Active Brompheniramine-Pse udoeph-Dm (Bromfed Dm) 2-30-10 mg/5 [...] a day for 7 days Jan, Active docusate sodium 100 mg oral capsule (5 sources) Start: 10-08-2024 End: 11-07-2024 take 1 capsule by mouth twice daily as needed for constipation docusate sodium (Colace) 100 MG capsule Indications: Constipation, unspecified constipation type Take 1 capsule (100 mg) by mouth 2 (two) times a day as needed for constipation 30 capsule 5 10/08/2024 11/07/2024 Active fluticasone propionate 0.05 mg/actuat metered dose nasal spray (19 sources) Corticosteroid Start: 08-15-2022 take 2 spray(s) nasal route once daily Fluticasone Propionate 50 MCG/ACT 2 sprays Nasally Once a day for 14 day(s) Jul, Active take 1 spray(s) nasal route once daily fluticasone (Flonase) 50 MCG/ACT nasal spray Administer 1 spray into each nostril Daily Shake gently. Before first use, prime pump. After use, clean tip and replace cap. Active levothyroxine sodium 0.025 mg oral tablet (20 sources) l-Thyroxine Start: 10-08-2024 End: 10-08-2025 take 1 tablet by mouth before mealtime levothyroxine (Synthroid) 25 MCG tablet Indications: History of hyperthyroidism Take 1 tablet (25 mcg) by mouth in the morning. Take before meals. 30 tablet 11 10/08/2024 10/08/2025 Active Start: 12-28-2022 End: 10-04-2025 take 1 tablet by mouth before mealtime Synthroid 300 MCG tablet Indications: Hypothyroidism, unspecified type Take 1 tablet (300 mcg) by mouth in the morning. Take before meals. 360 tablet 10/04/2024 10/04/2025 Active Start: 07-03-2018 take 2 tablets by [facility] once daily SYNTHROID 125 mcg tablet Take 2 tablets by mouth once daily. 60 tablet 11 07/03/2018 Active [facility] daily in the morning Synthroid 300 MCG 1 tablet in the morning on an empty stomach Orally Once a day for 30 days Active Synthroid 200 MC G Oral for 30 Days Active Comment on above: Take 2 tablets by [facility] once daily. Magnesium Oxide (1 source) Magnesium Oxide 400 (240 Mg) MG TAKE 1 TABLET BY MOUTH ONCE DAILY NEEDED FOR 30 DAYS Oral for 30 Days Active methylPREDNISolone 4 mg oral tablet (2 sources) Corticosteroid Start: 2023 take 1 tablet by mouth once Methylprednisolone (Medrol (Maximus)) 4 mg tablets,dose pack Active 0 PO per package directions November 20, 2023 12:00am PO PER PKG DIR Adult Gummy/DHA/FA 0.4-25 MG (1 source) Adult Gummy/DHA/FA 0.4-25 MG CHEW AND SWALLOW 1 BY MOUTH ONCE DAILY FOR 30 DAYS Oral for 30 Days Active Vit-Fe Fumarate-FA ( Vitamins) 28-0.8 MG tablet (13 sources) Start: 2024 End: 2025 take 1 tablet by mouth once daily Vit-Fe Fumarate-FA ( Vitamins) 28-0.8 MG tablet Indications: Positive urine test ([facility]) Take 1 tablet by mouth Daily 30 tablet 3 08/26/2024 08/26/2025 Active promethazine hydrochloride 12.5 mg oral tablet (5 sources) Phenothiazine Start: 2024 End: 2024 take 1 tablet by mouth every four hours promethazine (Phenergan) 12.5 MG tablet Indications: Nausea and vomiting in ([facility]) Take 1 tablet (12.5 mg) by mouth every 4 (four) hours 60 tablet 1 10/08/2024 11/07/2024 Active Completed/Discontinued Medications Medication Drug Class(es) Dates Sig (Normalized) Sig (Original) dextromethorphan hydrobromide 15 mg / guaiFENesin 400 mg / pseudoephedrine hydrochloride 60 mg oral tablet (5 sources) alpha-Adrenergic Agonist, Uncompetitive I-bzhdvq-P-asparta te Receptor Antagonist, Sigma-1 Agonist Start: 04-18-2023 End: 10-10-2023 take 4 tablets by mouth every twenty-four hours Pseudoephedrine-Dm- Guaifenesin (Capmist Dm) 60-15-400 mg tablet Discontinued 1 TAB PO EVERY 4-6 HOURS April 18, 2023 1:00am October 10, 2023 5:46pm do not exceed 4 doses per 24 hrs levonorgestrel 0.130833 mg/hr intrauterine system (19 sources) Progestin, Progestin-containi ng Intrauterine Device Start: 12-26-2022 End: 11-07-2024 Levonorgestrel intrauterine device 52 mg nitrofurantoin, macrocrystals 25 mg / nitrofurantoin, monohydrate 75 mg oral capsule (6 sources) Nitrofuran Antibacterial Start: 09-23-2024 End: 10-08-2024 take 1 capsule by mouth in the morning nitrofurantoin, macrocrystal-monohy drate, (Macrobid) 100 MG capsule Indications: UTI symptoms Take 1 capsule (100 mg) by mouth in the morning and 1 capsule (100 mg) before bedtime. Do all this for 7 days. 14 capsule 09/23/2024 10/08/2024 Discontinued Start: 10-10-2023 End: 11-20-2023 take 1 capsule by mouth every twelve hours at mealtime Nitrofurantoin Monohyd/M-Cryst (Macrobid) 100 mg capsule Discontinued 100 MG PO Every 12 hours 10 October 10, 2023 12:00am November 20, 2023 1:06pm must administer with a meal/food ondansetron 4 mg disintegrating oral tablet (7 sources) Serotonin-3 Receptor Antagonist Start: 08-26-2024 End: 10-08-2024 take 1 tablet by mouth every six hours as needed for nausea and vomiting and nausea and nausea ondansetron ODT (Zofran-ODT) 4 MG disintegrating tablet Indications: Nausea Take 1 tablet (4 mg) by mouth every 6 (six) hours if needed for nausea or vomiting 30 tablet 2 08/26/2024 10/08/2024 Start: 04-06-2023 take 1 tablet by [facility] th every eight hours as needed Ondansetron HCl 8 MG 1 tablet Orally every 8 hours as needed for 7 days Mar, Active Ondansetron 4 MG Oral for 8 Days Active phenazopyridine hydrochloride 200 mg oral tablet (4 sources) Start: 10-10-2023 End: 11-20-2023 take 1 tablet by mouth three times daily Phenazopyridine (Pyridium) 200 mg tablet Discontinued 200 MG PO Three times daily 10 30October 10, 2023 12:00am November 20, 2023 1:06pm phentermine hydrochloride 37.5 mg oral tablet (8 sources) Sympathomimetic Amine Anorectic Start: 05-03-2023 End: 03-26-2024 take 1 tablet by mouth before mealtime phentermine (Adipex-P) 37.5 MG tablet Indications: Encounter for weight management Take 1 tablet (37.5 mg) by mouth in the morning. Take before meals. 90 tablet 08/07/2023 03/26/2024 Discontinued (Other) Pneumatic Walking Boot (3 sources) Start: 12-13-2022 Pneumatic Walking Boot Nov, Not-Taking Start: 12-13-2022 Pneumatic Walk ing Boot Nov, Active Problems Active Problems Problem Classification Problem Date Documented Da te Episodic/Chronic Allergic reactions (18 sources) Atopic dermatitis; Translations: [Atopic dermatitis, unspecified] Onset: 08-04-2005 05-13-2024 Chronic Asthma (18 sources) Asthma; Translations: [Unspecified asthma, uncomplicated] Onset: 02-18-2000 05-13-2024 Chronic Chronic obstructive pulmonary disease and bronchiectasis (2 sources) Bronchitis; Translations: [Bronchitis, not specified as acute or chronic] 11-20-2023 Episodic Genitourinary symptoms and ill-defined conditions (1 source) Dysuria; Translations: [Dysuria] Onset: 10-10-2023 Episodic Headache; including migraine (19 sources) Cluster headache; Translations: [Cluster headache syndrome, unspecified, not intractable] Onset: 07-26-2022 07-26-2022 Chronic Immunizations and screening for infectious disease (20 sources) Contact with and (suspected) exposure to other viral communicable diseases; Translations: [Contact with or exposure to other viral diseases] Onset: 05-31-2023 Episodic Inflammation; infection of eye (except that caused by tuberculosis or sexually transmitteddisease) (1 source) Hordeolum externum left upper eyelid Episodic Joint disorders and dislocations; trauma-related (18 sources) Chondromalacia of patella; Translations: [Chondromalacia patellae, unspecified knee] Onset: 05-27-2009 05-13-2024 Chronic Menstrual disorders (20 sources) Missed period; Translations: [Irregular menstruation, unspecified] Onset: 07-26-2022 07-26-2022 Chronic Nutritional deficiencies (4 sources) Vitamin D deficiency; Translations: [Vitamin D deficiency, unspecified] 08-09-2024 Chronic Other aftercare (1 source) Encounter for other specified aftercare; Translations: [Encounter for other specified aftercare] Onset: 10-23-2024 Episodic Other complications of (18 sources) Maternal obesity complicating , childbirth and the puerperium, antepartum; Translations: [Obesity complicating , unspecified trimester] Onset: 11-13-2018 05-13-2024 Chronic Other complications of (4 sources) Thyroid disease in ; Translations: [Endocrine, nutritional and metabolic diseases complicating , first trimester] 08-09-2024 Episodic Other complications of (2 sources) Vomiting of , unspecified; Translations: [Unspecified vomiting of , unspecified as to episode of care or not applicable] 10-08-2024 Episodic Other female genital disorders (2 sources) Vaginal discharge; Translations: [Other specified noninflammatory disorders of vagina] 11-07-2024 Episodic Other gastrointestinal disorders (3 sources) Constipation; Translations: [Constipation, unspecified] Onset: 09-01-2024 10-08-2024 Episodic Other gastrointestinal disorders (1 source) Constipation, unspecified; Translations: [Constipation, unspecified] Onset: 09-01-2024 Episodic Other injuries and conditions due to external causes (1 source) Injury, unspecified, initial encounter Episodic Other lower respiratory disease (2 sources) Cough; Translations: [Cough] 11-20-2023 Episodic Other nutritional; endocrine; and metabolic disorders (1 source) Obesity; Translations: [Obesity, unspecified] Onset: 11-16-2017 07-26-2022 Chronic Other nutritional; endocrine; and metabolic disorders (18 sources) Body mass index 30+ - obesity; Translations: [Obesity, unspecified] Onset: 11-16-2017 05-13-2024 Chronic Other nutritional; endocrine; and metabolic disorders (2 sources) Severe obesity; Translations: [Class 3 severe obesity due to excess calories without serious comorbidity with body mass index (BMI) of 40.0 to 44.9 in adult ([facility])] 08-09-2024 Chronic Other nutritional; endocrine; and metabolic disorders (4 sources) H/O: hyperthyroidism; Translations: [Personal history of other endocrine, nutritional and metabolic disease] 10-08-2024 Episodic Other and delivery including normal (20 sources) Encounter for supervision of normal , unspecified, second trimester; Translations: [Encounter for supervision of normal , unspecified, unspecified trimester] Onset: 11-28-2017 Resolved: 11-04-2022 Episodic Other screening for suspected conditions (not mental disorders or infectious disease) (6 sources) Encounter for screening for malignant neoplasm of cervix; Translations: [Patient encounter status] Onset: 07-26-2022 Episodic Other upper respiratory disease (18 sources) Allergic rhinitis; Translations: [Allergic rhinitis, unspecified] Onset: 02-18-2000 05-13-2024 Chronic Residual codes; unclassified (1 source) 20 weeks gestation of ; Translations: [20 WEEKS GESTATION OF ] Onset: 06-30-2022 Episodic Residual codes; unclassified (2 sources) Gestation period, 13 weeks; Translations: [13 weeks gestation of ] 10-08-2024 Episodic Residual codes; unclassified (1 source) 9 weeks gestation of ; Translations: [9 weeks gestation of ] Onset: 09-01-2024 Episodic Residual codes; unclassified (2 sources) Gestation period, 17 weeks; Translations: [17 weeks gestation of ] 11-07-2024 Episodic Sprains and strains (1 source) Sprain of unspecified ligament of left ankle, initial encounter Episodic Thyroid disorders (20 sources) Congenital hypothyroidism without goiter; Translations: [Congenital hypothyroidism without goiter] Onset: 1993 07-26-2022 Chronic Unclassified (1 source) Cough, unspecified; Translations: [Cough, unspecified] Onset: 11-20-2023 Unclassified (1 source) Injury, unspecified, initial encounter; Translations: [Injury, unspecified, initial encounter] Onset: 12-13-2022 Unclassified (19 sources) Unable to comply with treatment; Translations: [Unable to comply with treatment] Onset: 07-26-2022 07-26-2022 Unclassified (1 source) Wound Check Onset: 10-23-2024 Unclassified (1 source) Constipated - 9 Weeks Onset: 09-01-2024 Urinary tract infections (6 sources) Acute urinary tract infection; Translations: [Urinary tract infection, site not specified] 10-10-2023 Episodic Viral infection (5 sources) Viral infection, unspecified; Translations: [Disease caused by nCoV] Episodic Past or Other Problems Problem Classification Problem Date Documented Date Episodic/Chronic Acute bronchitis (18 sources) Acute bronchitis; Translations: [Acute bronchitis, unspecified] Onset: 05-13-2024 05-13-2024 Episodic Contraceptive and procreative management (20 sources) Patient encounter status; Translations: [Encounter for removal of intrauterine contraceptive device] Onset: 05-31-2023 03-26-2024 Episodic Deficiency and other anemia (19 sources) Anemia; Translations: [Anemia, unspecified] Onset: 07-26-2022 07-26-2022 Episodic Hypertension complicating ; childbirth and the puerperium (19 sources) -induced hypertension; Translations: [Gestational [-induced] hypertension without significant proteinuria, unspecified trimester] Onset: 04-29-2018 Resolved: 11-04-2022 11-28-2022 Episodic Other complications of (19 sources) Anemia of ; Translations: [Anemia complicating , unspecified trimester] Onset: 04-24-2018 Resolved: 11-04-2022 11-28-2022 Chronic Other upper respiratory infections (20 sources) Acute sinusitis, unspecified; Translations: [Acute pharyngitis] Onset: 09-10-2009 Episodic Results Test Name Value Interpretation Reference Range Facil ity Urinalysis macro (dipstick) panel (U)on 11-07-2024 Bilirubin, UA Negative Negative - 4(70) +++ mg/dL [facility] Blood, UA Negative Negative - 50 John/mcL [facility] Clarity, UA Clear [facility] Color, UA Straw [facility] Glucose, UA Negative Negative - 1999(110) ++++ mg/dL [facility] Interpretation and review of laboratory results Abnormal [facility] Ketones, UA Negative Negative - 160(16) ++++ mg/dL [facility] Leukocytes, UA Negative Negative - 500+++ Anderson/mcL [facility] Nitrite, UA Negative Negative - Positive [facility] pH, UA 6 5 - 9 [facility] Protein, UA Positive Negative - 1999(20) ++++ mg/dL [facility] Spec Grav, UA 1.015 1 - 1.03 [facility] Urobilinogen, UA 1.0 0.2 - 12 mg/dL [facility] Urinalysis macro (dipstick) panel (U)on 10-08-2024 Bilirubin, UA Negative Negative - 4(70) +++ mg/dL [facility] Blood, UA Negative Negative - 50 John/mcL [facility] Clarity, UA Clear [facility] Color, UA Straw [facility] Glucose, UA Negative Negative - 1999(110) ++++ mg/dL [facility] Interpretation and review of laboratory results Normal [facility] Ketones, UA Negative Negative - 160(16) ++++ mg/dL [facility] Leukocytes, UA Negative Negative - 500+++ Anderson/mcL [facility] Nitrite, UA Negative Negative - Positive [facility] pH, UA 6 5 - 9 [facility] Protein, UA Negative Negative - 1999(20) ++++ mg/dL [facility] Spec Grav, UA 1.015 1 - 1.03 [facility] Urobilinogen, UA 1.0 0.2 - 12 mg/dL [facility] GLUCOSE TOLERANCE 3 HOURon 0 10-03-2024 GLUCOSE TOLERANCE 3 HOUR mg/dL [facility] Comment on above: GLU FAST 86 (<95) C ol: 10/03/24 1024 GLU 1HR 161 (<180) Col: 10/03/24 1122 GLU 2HR 124 (<155) Col: 10/03/24 1224 GLU 3HR 124 (<140) Col: 10/03/24 1325 [facility] ALL CBC WITH AUTO DIFFon BASOPHILS ABSOLUTE AUTO 0.1 [facility] Basophils/100 WBC (Bld) 0.5 % 0.2 - 2.0 % [facility] Eosinophils/100 WBC (Bld) 2 % 0.9 - 7.0 % [facility] Erythrocyte distribution width (RBC) [Ratio] 12.7 % 11.0 - 15.0 % [facility] Hematocrit (Bld) [Volume fraction] 36.6 % 36.0 - 48.0 % [facility] Hemoglobin (Bld) [Mass/Vol] 12.5 g/dL 12.0 - 16.0 g/dL [facility] IMMATURE GRANULOCYTES ABS AUTO 0.04 High [facility] Immature granulocytes/100 WBC (Bld) 0.4 % 0.0 - 0.5 % [facility] Interpretation and review of laboratory results Abnormal [facility] LYMPHOCYTES ABSOLUTE AUTO 2.8 [facility] Lymphocytes/100 WBC (Bld) 29.9 % 20.5 - 60.0 % [facility] MCH (RBC) [Entitic mass] 28.7 pg 26.7 - 34.0 pg [facility] MCHC (RBC) [Mass/Vol] 34.2 g/dL 29.9 - 35.2 g/dL [facility] MCV (RBC) [Entitic vol] 83.9 fL 81.0 - 99.0 fL [facility] MONOCYTES ABSOLUTE AUTO 0.5 [facility] Monocytes/100 WBC (Bld) 5.2 % 1.7 - 12.0 % [facility] NEUTROPHILS ABSOLUTE AUTO 5.9 [facility] Neutrophils/100 WBC (Bld) 62 % 43.0 - 75.0 % [facility] Platelet mean volume (Bld) [Entitic vol] 10.8 fL 9.5 - 13.5 [facility]L [facility] PLT 226 [facility] RBC 4.36 [facility] WBC 9.5 [facility] ALL CBC WITH AUTO DIFFon BASOPHILS ABSOLUTE AUTO 0.1 [facility] Basophils/100 WBC (Bld) 0.5 % 0.2 - 2.0 % [facility] Eosinophils/100 WBC (Bld) 1.2 % 0.9 - 7.0 % [facility] Erythrocyte distribution width (RBC) [Ratio] 12.6 % 11.0 - 15.0 % [facility] Hematocrit (Bld) [Volume fraction] 36.8 % 36.0 - 48.0 % [facility] Hemoglobin (Bld) [Mass/Vol] 12.6 g/dL 12.0 - 16.0 g/dL [facility] IMMATURE GRANULOCYTES ABS AUTO 0.05 High [facility] Immature granulocytes/100 WBC (Bld) 0.4 % 0.0 - 0.5 % [facility] Interpretation and review of laboratory results Abnormal [facility] LYMPHOCYTES ABSOLUTE AUTO 3.3 [facility] Lymphocytes/100 WBC (Bld) 28.5 % 20.5 - 60.0 % [facility] MCH (RBC) [Entitic mass] 28.8 pg 26.7 - 34.0 pg [facility] MCHC (RBC) [Mass/Vol] 34.2 g/dL 29.9 - 35.2 g/dL [facility] MCV (RBC) [Entitic vol] 84 fL 81.0 - 99.0 fL [facility] MONOCYTES ABSOLUTE AUTO 0.6 [facility] Monocytes/100 WBC (Bld) 5.5 % 1.7 - 12.0 % [facility] NEUTROPHILS ABSOLUTE AUTO 7.4 High [facility] Neutrophils/100 WBC (Bld) 63.9 % 43.0 - 75.0 % [facility] Platelet mean volume (Bld) [Entitic vol] 10.9 fL 9.5 - 13.5 fL [facility] EO # 0.1 [facility] PLT 239 [facility] RBC 4.38 [facility] WBC 11.5 High [facility] HCG ( test) Ql (U)o n 09-05-2024 Interpretation and review of laboratory results Abnormal [facility] Preg Test, Ur Positive Negative [facility] US OB TRANSVAGINALon 025 US OB TRANSVAGINAL [...] UA Negative Negative - 4(70) +++ mg/dL [facility] Blood, UA Negative Negative - 50 John/mcL [facility] Clarity, UA Clear [facility] Color, UA Yellow [facility] Glucose, UA Negative Negative - 2000(110) ++++ mg/dL [facility] Interpretation and review of laboratory results Normal [facility] Ketones, UA Negative Negative - 160(16) ++++ mg/dL [facility] Leukocytes, UA Negative Negative - 500+++ Anderson/mcL [facility] Nitrite, UA Negative Negative - Positive [facility] pH, UA 6 5 - 9 [facility] Protein, UA Negative Negative - 2000(20) ++++ mg/dL [facility] Spec Grav, UA 1.02 1 - 1.03 [facility] Urobilinogen, UA 1.0 0.2 - 12 mg/dL [facility] POCT NURSING URINE MACROSCOP IC UAon 09-02-2024 BILIRUBIN ROX Negative Normal Negative [facility] Comment on above: Performed By: #### N UM #### [facility] ([address] [address] VIR BLOOD/HGB ROX Trace Abnormal Negative [facility] Comment on above: Performed By: #### N UM #### [facility] ([address] [address] VIR GLUCOSE ROX Negative Normal Negative [facility] Comment on above: Performed By: #### N UM #### [facility] ([address] [address] VIR KETONES ROX Negative Normal Negative [facility] Comment on above: Performed By: #### N UM #### [facility] ([address] [address] VIR LEUKOCYTE ESTERASE ROX Negative Normal Negative [facility] Comment on above: Performed By: #### N UM #### [facility] ([address] [address] VIR NITRITE ROX Negative Normal Negative [facility] Comment on above: Performed By: #### N UM #### [facility] ([address] [address] VIR PH ROX 6.0 Normal 5.0, 6.0, 6.5, 7.0, 7.5, 8.0, 8.5, 5.5 [facility] Comment on above: Performed By: #### N UM #### [facility] ([address] [address] VIR PROTEIN ROX Negative Normal Negative [facility] Comment on above: Performed By: #### N UM #### [facility] ([address] [address] VIR SPECIFIC GRAVITY ROX >=1.030 Abnormal 1.010, 1.015, 1.020, 1.025 [facility] Comment on above: Performed By: #### N UM #### [facility] ([address] [address] VIR UROBILINOGEN ROX 0.2 E.U./dL Normal [facility] Comment on above: Performed By: #### N UM #### [facility] ([address] [address] VIR POCT , URINE (NUCG) on 09-02-2024 Beta HCG ( test) Ql (U) Positive Abnormal Negative, Indeterminate [facility] Comment on above: Performed By: #### N UCG #### [facility] ([address] [address] VIR TBH PREG QUANT HCGon 025 HCG QUANTITATIVE [address] mIU/mL [facility] Comment on above: 5-50 0.2-1 WEEK 50-500 1-2 WEEKS 100-5,000 2-3 WEEKS 500-10,000 3-4 WEEKS 1,000-50,000 4-5 WEEKS 10,000-100,000 5-6 WEEKS 15,000-200,000 6-8 WEEKS 10,000-100,000 2-3 MONTHS [facility] TBH PREG QUANT HCGon 08-19- 025 HCG QUANTITATIVE [address] mIU/mL [facility] Comment on above: 5-50 0.2-1 WEEK 50-500 1-2 WEEKS 100-5,000 2-3 WEEKS 500-10,000 3-4 WEEKS 1,000-50,000 4-5 WEEKS 10,000-100,000 5-6 WEEKS 15,000-200,000 6-8 WEEKS 10,000-100,000 2-3 MONTHS [facility] IUD Removalon 03-26-2024 Brandy Galeana LPN 03/27/2024 12:35 PM IUD Removal Date/Time: 03/26/2024 1:59 PM Performed by: Ivy Baker DO Authorized by: Ivy Baker DO Consent: Consent obtained: Written Consent given by: Patient Procedure risks and benefits discussed: yes Patient questions answered: yes Patient agrees, verbalizes understanding, and wants to proceed: yes Educational handouts given: yes Instructions and paperwork completed: yes [place] protocol: Patient states understanding of procedure being [...] office for annual exam unless needed otherwise [facility] No Panel InformationOrdered By: Amanda Victoria on 11-20-2023 COVID Antigen (POC) [facility] Quick Strep (POC) [facility] XR chest 2V*on 11-20-2023 XR chest 2V* [facility] [place] [address] [place] [id number] XRay Report Signed Patient: Brittnee Smith MR#: [id number] 11 : 1995 Acct:[id number] Age/Sex: 28 / F ADM Date: 11/20/23 Loc: XDUC Room: Type: [facility] Attending Dr: Amanda Victoria APRN Copies to: Amanda Victoria APRN Ordering Provider: Amanda Victoria APRN Date of Service: 11/20/23 XR/XR chest 2V*: COUGH Chest 2 views CLINICAL HISTORY: Productive cough chest congestion for 3 weeks. COMPARISON: None FINDINGS: Heart normal size. Lungs are clear. No free air. XR/XR chest 2V* IMPRESSION: NO ACUTE CARDIOPULMONARY ABNORMALITY. Impression dictated by: Shlomo De Anda Jr., D.OMelisa11/20/2023 2:04 PM Dictation Location: [place] [address] Transcribed By: [facility] 11/20/23 1404 Dictated By: Shlomo De Anda Jr, DO 11/20/23 1403 Signed By: 11/20/23 1404 Normal [facility] - Chemistry and C hemistry - challengeon 10-10-2023 Bilirubin Ql (U) Negative [facility] Glucose (U) [Mass/Vol] Negative [facility] Ketones Ql (U) Negative [facility] pH (U) 7.0 [pH] [facility] Specific gravity (U) [Rel density] 1.030 [facility] Urobilinogen (U) [Mass/Vol] 0.2 mg/dL [facility] Laboratory - Specimen inform ationon 10-10-2023 Appearance (U) cloudy [facility] Color (U) yellow [facility] Laboratory - Urinalysison Leukocyte esterase Test strip Ql (U) small [facility] Nitrite Ql (U) Positive [facility] Protein Ql (U) 100 [facility] No Panel Informationon 10-09 Urine Occult Blood large [facility] Urine Cultureon 10-10-2023 Bacteria identified Cx Nom (U) ORGANISM: Escherichia coli (O:ESCCOL) Isle Count >100,000 Aerobic MEENA Charge (NMIC56) ------ [...] RESISTANT TO ALL B-LACTAM DRUGS. PERFORMED BY: [place] [address] PATHOLOGIST SPECIAL PROJECTS COORDINATOR ROXANNE DIETRICH M.D. Normal [facility] Comment on above: Performed By: #### C UU #### [address] Urine culture routineOrdered By: Diana Altman on 10-10-2023 Bacteria identified Cx Nom (U) Escherichia coli Abnormal [facility] No Panel InformationOrdered By: Linda Swanson on 04-18-2023 COVID/Influenza Antigen (POC) [facility] COVID/FLU/RSV RT-PCRon 04-06 SARS-CoV-2 (COVID-19) RNA NICHOLE+probe Ql (Unsp spec) Negative [facility] Other COVID/FLU/RSV RT-PCR Negative [facility] Other XR ankle LT min 3V*on 2022 XR ankle LT min 3V* [facility] Other XR ankle LT min 3V* [facility] Other XR ankle LT min 3V* [address] [place] [address] [facility] Other XR ankle LT min 3V* [place] [address] [facility] Other XR ankle LT min 3V* XRay Report [facility] [employer] Other XR ankle LT min 3V* Signed [facility] Other XR ankle LT min 3V* Patient: Brittnee Smith MR#: [id number] [facility] Other XR ankle LT min 3V* 11 [facility] Other XR ankle LT min 3V* : 1995 Acct:[id number] [facility] Other XR ankle LT min 3V* Age/Sex: 27 / F ADM Date: 12/13/22 [facility] Other XR ankle LT min 3V* Loc: XDUCLY Room: Type: REG CLI [facility] Other XR ankle LT min 3V* Attending Dr: Linda Swanson OPERATIONS SECTION MANAGER [facility] Other XR ankle LT min 3V* Copies to: Linda Swanson APRN [facility] Other XR ankle LT min 3V* Ordering Provider: Linda Swanson APRN [facility] Other XR ankle LT min 3V* Date of Service: 12/13/22 [facility] Other XR ankle LT min 3V* XR/XR ankle LT min 3V*: [id number] [facility] Other XR ankle LT min 3V* LEFT ANKLE - 3 views [facility] Other XR ankle LT min 3V* CLINICAL DATA: Patient fell down stairs injuring left ankle today. Generalized pain and swelling. [facility] Other XR ankle LT min 3V* COMPARISON: None [facility] Other XR ankle LT min 3V* AP, lateral and oblique views were obtained. There is no evidence of fracture or dislocation. The [facility] Other XR ankle LT min 3V* talar dome is intact. A tiny plantar calcaneal spur is present. There is mild diffuse soft tissue [facility] Other XR ankle LT min 3V* swelling, greater anteriorly. [facility] Other XR ankle LT min 3V* XR/XR ankle LT min 3V* [facility] Other XR ankle LT min 3V* IMPRESSION: [facility] [employer] Other XR ankle LT min 3V* NO ACUTE BONY INJURY. [facility] Other XR ankle LT min 3V* Impression dictated by: Brandy Shields M.D.12/13/2022 9:49 AM [facility] Other XR ankle LT min 3V* Dictation Location: [facility]IO-PC-12 [facility] [employer] Other XR ankle LT min 3V* Transcribed By: PERLA 12/13/2249 [facility] [employer] Other XR ankle LT min 3V* Dictated By: Brandy Shields MD 12/13/2247 [facility] Other XR ankle LT min 3V* Signed By: [facility] Other XR ankle LT min 3V* 12/13/22 0953 No [facility] [employer] Other XR ankle LT min 3V* [facility] [place] [address] [place] [address] XRay Report Signed Patient: Brittnee Smith MR#: [id number] 11 : 1995 Acct:[id number] Age/Sex: 27 / F ADM Date: 12/13/22 Loc: XDUC Room: Type: [facility] Attending Dr: Linda Swanson APRN Copies to: [...] Brandy Shields M.D.12/13/2022 9:49 AM Dictation Location: [facility]-12 Transcribed By: PERLA 12/13/2249 Dictated By: Brandy Shields MD 12/13/2247 Signed By: 12/13/22948 Normal [facility] AFP MATERNAL FOR SPINA BIFID Aon 07-01-2022 AFP MoM 0.73 Normal [facility] Comment on above: Result Comment: This is a corrected report. The previously reported result was: AFP MoM See interpretation. 06/29/2022 Performed By: #### A FPMAT #### [facility] [address] [place] [address] [address] Cathleen Godwin AFP Value 35.4 ng/mL Normal [facility] Comment on above: Performed By: #### A FPMAT #### [facility] [address] [place] [address] [address] Cathleen Godwin AFP, Serum for Spina Bifida Comment Normal [facility] Comment on above: Result Comment: The MOM and risk factors of this report have been modified based on new information supplied to us by the client or their designated arborist representative. The Weight was changed from Not provided. to 222. This is a corrected report. The previously reported result was: Results Report 06/29/2022 Performed By: #### A FPMAT #### [facility] [address] [place] [address] [address] Cathleen Godwin Comment Comment Normal [facility] Comment on above: Result Comment: Bruna Hollingsworth, Ph.D., [facility] Director . References: Available Upon Request. . Multiples Of Median Cutoffs For AFP Elevations Wolfe 2.5 Black 2.8 IDD 2.0 Twins 4.5 Abbreviation Definitions IDD - Insulin Dep Diabetes OSBR - Open Spina Bifida Risk . For further inquiries contact [employer] at [phone]. . This test was developed and its performance characteristics determined by [employer]. It has not been cleared or approved by the Food and Drug Administration. Performed By: #### A FPMAT #### [facility] [address] [place] [address] [address] Cathleen Beltran Age Collection Date 20.4 weeks Normal [facility] Comment on above: Performed By: #### A FPMAT #### [facility] [address] [id number] Cathleen Godwin Gestat, Age Based on Ultrasound Normal [facility] Comment on above: Result Comment: 20.4 on 06/27/2022 Recalculations are not recommended when gestational dating by LMP and ultrasound are within 10 days. Performed By: #### A FPMAT #### [facility] [address] [place] [address] Dr. Cathleen Godwin Insulin Dep Diabetes No Normal [facility] Comment on above: Performed By: #### A FPMAT #### [facility] [address] [place] [address] [address] Cathleen Godwin Interpretation Comment Normal [facility] Comment on above: Result Comment: Inte rpretation: [...] Customer Services to discuss available options. The [employer] recommends amniocentesis [...] information. Performed By: #### A FPMAT #### [facility] [address] [place] [address] Dr. Cathleen Godwin [age] Normal [facility] Comment on above: Performed By: #### A FPMAT #### [facility] [address] [place] [address] Dr. Cathleen Godwin Multiple Gestation No Normal [facility] Comment on above: Performed By: #### A FPMAT #### [facility] [address] [place] [address] Dr. Cathleen Godwin [place] 1 [place] [address] Normal [facility] Comment on above: Result Comment: This is a corrected report. The previously reported result was: OSBR Risk 1 IN See interpretation. 06/29/2022 Performed By: #### A FPMAT #### [facility] [address] [place] [address] Dr. Cathleen Godwin PDF . Normal [facility] Comment on above: Performed By: #### A FPMAT #### [facility] [address] [place] [address] Dr. Cathleen Godwin Race Normal [facility] Comment on above: Performed By: #### A FPMAT #### [facility] [address] [place] [address] Dr. Cathleen Godwin Test Results: Negative Normal [facility] Comment on above: Result Comment: This is a corrected report. The previously reported result was: Test Results: See interpretation. 06/29/2022 Performed By: #### A FPMAT #### [facility] [address] [place] [address] Dr. Cathleen Godwin HEP B SURFACE ANTIGEN SCREEN on 06-28-2022 HBsAg Screen Negative Normal Negative [facility] Comment on above: Performed By: #### H BSANS #### [facility] [address] [place] [address] Dr. Cathleen oGdwin HEPATITIS C VIRUS AB W/ REFL EX QUANTon 06-28-2022 HCV AB Non-Reactive Normal Non Reactive [facility] Comment on above: Performed By: #### H CVPCRR #### [facility] [address] [place] [address] Dr. Cathleen Godwin Interpretation: Comment Normal [facility] Comment on above: Result Comment: Not infected with HCV unless early or acute infection is suspected (which may be delayed in an immunocompromised individual), or other evidence exists to indicate HCV infection. Performed By: #### H CVPCRR #### [facility] [address] [place] [address] [address] Cathleen Godwin HIV 1 AND 2 WITH REFLEXon HIV Screen 4th Generation wRfx Non-Reactive Normal Non Reactive [facility] Comment on above: Result Comment: HIV Negative HIV-1/HIV-2 antibodies and HIV-1 p24 antigen were NOT detected. There is no laboratory evidence of HIV infection. Performed By: #### H IV12 #### [facility] [address] [place] [address] [address] Cathleen Godwin RPR QUANTon 06-28-2022 Rapid Plasma Reagin, Quant Non-Reactive Normal NonRea<1:1 [facility] Comment on above: Result Comment: Plea se Note: This test does not meet current guidelines for screening and diagnosis of syphilis. This test is intended for following treatment response in patients being treated for syphilis infection. To screen for syphilis infection, a reflex cascade that includes both RPR and a treponema-specific assay should be utilized, such as Treponema pallidum (Syphilis) Screening Allen (643663) or Rapid Plasma Reagin (RPR) Test With Reflex to Quantitative RPR and Confirmatory Treponema pallidum Antibodies (295772). Performed By: #### R PRQ #### [facility] [address] [place] [address] [address] Cathleen Godwin RUBELLA AB IGGon 06-28-2022 Rubella Antibodies, IgG 1.39 index Normal Immune >0.99 [facility] Comment on above: Result Comment: Non- immune <0.90 Equivocal 0.90 - 0.99 Immune >0.99 Performed By: #### R UBIGG ####[facility] [address] [place] [address]Dr. Cathleen Godwin CBC AUTO DIFFon 06-27-2022 BASO # 0.0 103/ul Normal 0.0-0.1 [facility] Comment on above: Performed By: #### C BC #### [facility] [address] [place] [address] [address] Cathleen Godwin Basophils/100 WBC (Bld) 0.3 % Normal 0.2-2.0 [facility] Comment on above: Performed By: #### C BC #### [facility] [address] [place] [address] [address] Cathleen Godwin EO # 0.2 103/ul Normal 0.0-0.7 [facility] Comment on above: Performed By: #### C BC #### [facility] [address] [place] [address] [address] Cathleen Godwin Eosinophils/100 WBC (Bld) 1.3 % Normal 0.9-7.0 [facility] Comment on above: Performed By: #### C BC #### [facility] [address] [place] [address] [address] Cathleen Godwin Erythrocyte distribution width (RBC) [Ratio] 13.2 % Normal 11.0-15.0 [facility] Comment on above: Performed By: #### C BC #### [facility] [address] [place] [address] [address] Cathleen Godwin Hematocrit (Bld) [Volume fraction] 32.9 % Critically low 36.0-48.0 [facility] Comment on above: Performed By: #### C BC #### [facility] [address] [place] [address] [address] Cathleen Godwin Hemoglobin (Bld) [Mass/Vol] 11.3 g/dL Critically low 12.0-16.0 [facility] Comment on above: Performed By: #### C BC #### [facility] [address] [place] [address] [address] Cathleen Godwin IG # 0.18 10e3/ul Critically high 0.00-0.03 [facility] Comment on above: Performed By: #### C BC #### [facility] [address] [place] [address] [address] Cathleen Godwin IG % 1.6 % Critically high 0.0-0.5 [facility] Comment on above: Performed By: #### C BC #### [facility] [address] [place] [address] Dr. Cathleen Godwin LYMPH # 2.6 103/ul Normal 1.2-3.8 [facility] Comment on above: Performed By: #### C BC #### [facility] [address] [place] [address] Dr. Cathleen Godwin Lymphocytes/100 WBC (Bld) 22.5 % Normal 20.5-60.0 [facility] Comment on above: Performed By: #### C BC #### [facility] [address] [place] [address] Dr. Cathleen Godwin MANUAL DIFF REQ NO Normal [facility] Comment on above: Performed By: #### C BC #### [facility] [address] [place] [address] Dr. Cathleen Godwin MCH (RBC) [Entitic mass] 29.4 pg Normal 26.7-34.0 [facility] Comment on above: Performed By: #### C BC #### [facility] [address] [place] [address] Dr. Cathleen Godwin MCHC (RBC) [Mass/Vol] 34.3 g/dL Normal 29.9-35.2 [facility] Comment on above: Performed By: #### C BC #### [facility] [address] [place] [address] Dr. Cathleen Godwin MCV (RBC) [Entitic vol] 85.5 fL Normal 81.0-99.0 [facility] Comment on above: Performed By: #### C BC #### [facility] [address] [place] [address] Dr. Cathleen Godwin MONO # 0.5 103/ul Normal 0.3-0.8 [facility] Comment on above: Performed By: #### C BC #### [facility] [address] [place] [address] Dr. Cathleen Godwin Monocytes/100 WBC (Bld) 4.5 % Normal 1.7-12.0 [facility] Comment on above: Performed By: #### C BC #### [facility] [address] [place] [address] [address] Cathleen Godwin NEUT # 8.1 103/ul Critically high 1.4-6.5 [facility] Comment on above: Performed By: #### C BC #### [facility] [address] [place] [address] [address] Cathleen Godwin Neutrophils/100 WBC (Bld) 69.8 % Normal 43.0-75.0 [facility] Comment on above: Performed By: #### C BC #### [facility] [address] [place] [address] [address] Cathleen Godwin Platelet mean volume (Bld) [Entitic vol] 10.8 fL Normal 9.5-13.5 [facility] Comment on above: Performed By: #### C BC #### [facility] [address] [address] [address] Cathleen Godwin PLT 223 103/ul Normal 150-450 [facility] Comment on above: Performed By: #### C BC #### [facility] [address] [address] [address] Cathleen Godwin RBC 3.85 106/ul Critically low 4.20-5.40 [facility] Comment on above: Performed By: #### C BC #### [facility] [address] [address] [address] Cathleen Godwin WBC 11.5 103/ul Critically high 4.0-11.0 [facility] Comment on above: Performed By: #### C BC #### [facility] [address] [id number] Cathleen Godwin CULTURE URINEon 06-27-2022 CULTURE URINE Culture Observations: LIGHT GROWTH OF MIXED GENITAL KASIA. NO POTENTIAL PATHOGENS SEEN. Normal [facility] Comment on above: Performed By: #### U RCX ####[facility] [address] [address]Dr. Cathleen Godwin GLYCOHEMOGLOBIN A1Con 2022 ADA RECOMMENDATION SEE BELOW Normal [facility] Comment on above: Result Comment: ADA RECOMMENDED LIMIT 4.0 - 6.0 ADA THERAPEUTIC TARGET < 7.0 ACTION SUGGESTED > 7.0 Performed By: #### A 1C #### [facility] [address] [place] [address] Dr. Cathleen Godwin Glucose [Mass/Vol] 114 mg/dL Normal [facility] Comment on above: Performed By: #### A 1C #### [facility] [address] [place] [address] Dr. Cathleen Godwin HbA1c (Bld) [Mass fraction] 5.6 % Normal 4.5-6.2 [facility] Comment on above: Performed By: #### A 1C #### [facility] [address] [place] [address] Dr. Cathleen Godwin TSHon 06-27-2022 TSH 14.370 uIU/mL Critically high 0.358-3.740 [facility] Comment on above: Performed By: #### T SH #### [facility] [address] [place] [address] Dr. Cathleen Godwin TYPE AND SCREENon 06-27-2022 TYPE AND SCREEN Negative Normal [facility] Comment on above: Performed By: #### T NS #### [facility] [address] [place] [address] Dr. Cathleen Godwin US PREG ANATOMY SINGLEon [...] by: CHRISTIANNE ULLOA Date: 2022-06-27 15:17 Normal [facility] Vital Signs Date Time Vital Sign Value Performing Clinician Facility 11-07-2024 11:30-0400 Body mass index (BMI) [Ratio] 40.64 kg/m2 Tess Lopez NP Work Phone: [facility] 11-07-2024 11:30-0400 Body weight 104.06 kg Tess Lopez CUSHION STUFFER Work Phone: [facility] 11-07-2024 11:30-0400 Diastolic blood pressure 72 mm[Hg] Tess Lopez CUSHION STUFFER Work Phone: [facility] 11-07-2024 11:30-0400 Systolic blood pressure 100 mm[Hg] Tess Lopez CUSHION STUFFER Work Phone: [facility] 10-08-2024 14:04-0400 Body mass index (BMI) [Ratio] 40.35 kg/m2 Ivy Samuel DO Work Phone: [facility] 10-08-2024 14:04-0400 Body weight 103.33 kg Ivy Samuel DO Work Phone: [facility] 10-08-2024 14:04-0400 Diastolic blood pressure 70 mm[Hg] Ivy Samuel DO Work Phone: [facility] 10-08-2024 14:04-0400 Systolic blood pressure 108 mm[Hg] Ivy Samuel DO Work Phone: [facility] 10-04-2024 10:07-0400 Body height 160 cm Allen Brizuela MD Work Phone: [facility] 10-04-2024 10:07-0400 Body mass index (BMI) [Ratio] 39.86 kg/m2 Allen Brizuela MD Work Phone: [facility] 10-04-2024 10:07-0400 Body weight 102.06 kg Allen Brizuela MD Work Phone: [facility] 10-04-2024 10:07-0400 Diastolic blood pressure 78 mm[Hg] Allen Brizuela MD Work Phone: [facility] 10-04-2024 10:07-0400 Heart rate 77 /min Allen Brizuela MD Work Phone: [facility] 10-04-2024 10:07-0400 Respiratory rate 16 /min Allen Brizuela MD Work Phone: [facility] 10-04-2024 10:07-0400 SaO2% (BldA) [Mass fraction] 99 % Allen Brizuela MD Work Phone: [facility] 10-04-2024 10:07-0400 Systolic blood pressure 108 mm[Hg] Allen Brizuela MD Work Phone: [facility] 09-05-2024 14:05-0400 Body mass index (BMI) [Ratio] 39.2 kg/m2 Samuel Ob [facility] 09-05-2024 14:05-0400 Body weight 103.6 kg Samuel Ob [facility] 08-09-2024 11:20-0400 Body height 162.6 cm Allen Brizuela MD Work Phone: [facility] 08-09-2024 11:20-0400 Body mass index (BMI) [Ratio] 40.17 kg/m2 Allen Brizuela MD Work Phone: [facility] 08-09-2024 11:20-0400 Body weight 106.14 kg Allen Brizuela MD Work Phone: [facility] 08-09-2024 11:20-0400 Heart rate 93 /min Allen Brizuela MD Work Phone: [facility] 08-09-2024 11:20-0400 Respiratory rate 16 /min Allen Brizuela MD Work Phone: [facility] 08-09-2024 11:20-0400 SaO2% (BldA) [Mass fraction] 99 % Allen Brizuela MD Work Phone: [facility] 03-26-2024 13:29-0500 Body mass index (BMI) [Ratio] 40.94 kg/m2 Ivy Samuel DO Work Phone: [facility] 03-26-2024 13:29-0500 Body weight 104.83 kg Ivy Samuel DO Work Phone: [facility] 03-26-2024 13:29-0500 Diastolic blood pressure 74 mm[Hg] Ivy Samuel DO Work Phone: [facility] 03-26-2024 13:29-0500 Systolic blood pressure 116 mm[Hg] Ivy Samuel DO Work Phone: [facility] 11-20-2023 13:08-0400 Body height 162.56 cm JUICE Altman Work Phone: [facility] 11-20-2023 13:08-0400 Body mass index (BMI) [Ratio] 38.7 kg/m2 OPERATIONS SECTION MANAGERJarek Altman Work Phone: [facility] 11-20-2023 13:08-0400 Body temperature 97.9 [degF] JUICE Altman Work Phone: [facility] 11-20-2023 13:08-0400 Body weight 102.51 kg JUICE Altman Work Phone: [facility] 11-20-2023 13:08-0400 Diastolic blood pressure 75 mm[Hg] JUICE Altman Work Phone: [facility] 11-20-2023 13:08-0400 Heart rate 80 /min JUICE Altman Work Phone: [facility] 11-20-2023 13:08-0400 SaO2% (BldA) [Mass fraction] 98 % JUICE Altman Work Phone: [facility] 11-20-2023 13:08-0400 Systolic blood pressure 110 mm[Hg] JUICE Altman Work Phone: [facility] 10-10-2023 17:54-0400 Body height 162.56 cm [facility] 10-10-2023 17:54-0400 Body mass index (BMI) [Ratio] 37.6 kg/m2 [facility] 10-10-2023 17:54-0400 Body temperature 98.2 [degF] [facility] 10-10-2023 17:54-0400 Body weight 99.56 kg [facility] 10-10-2023 17:54-0400 Diastolic blood pressure 82 mm[Hg] [facility] 10-10-2023 17:54-0400 Heart rate 90 /min [facility] 10-10-2023 17:54-0400 Respiratory rate 18 /min [facility] 10-10-2023 17:54-0400 SaO2% (BldA) [Mass fraction] 96 % [facility] 10-10-2023 17:54-0400 Systolic blood pressure 122 mm[Hg] [facility] 04-18-2023 11:10-0500 Body height 162.56 cm [facility] 04-18-2023 11:10-0500 Body mass index (BMI) [Ratio] 38.6 kg/m2 [facility] 04-18-2023 11:10-0500 Body temperature 98.2 [degF] [facility] 04-18-2023 11:10-0500 Body weight 102.05 kg [facility] 04-18-2023 11:10-0500 Heart rate 95 /min [facility] 04-18-2023 11:10-0500 Respiratory rate 16 /min [facility] 04-18-2023 11:10-0500 SaO2% (BldA) [Mass fraction] 99 % [facility] 04-06-2023 09:05-0500 Body height 160.02 cm Linda Swanson Other [facility] [employer] Other 04-06-2023 09:05-0500 Body mass index (BMI) [Ratio] 38.97 kg/m2 Linda Swanson Other [employer] Other 04-06-2023 09:05-0500 Body temperature 99.1 [degF] Linda Swanson Other [facility] Other 04-06-2023 09:05-0500 Body weight 99.79 kg Linda Swanson Other [facility] Other 04-06-2023 09:05-0500 Respiratory rate 18 /min Linda Swanson Other [facility] Other 04-06-2023 09:05-0500 SaO2% (BldA) [Mass fraction] 99 % Linda Swanson Other [facility] Other 01-30-2023 15:40-0500 Body height 160.02 cm Addie Hernandez Other [facility] 01-30-2023 15:40-0500 Body mass index (BMI) [Ratio] 39.78 kg/m2 Addie Hernandez Other [facility] Other 01-30-2023 15:40-0500 Body temperature 98 [degF] Addie Hernandez Other [facility] Other 01-30-2023 15:40-0500 Body weight 101.88 kg Addie Hernandez Other [facility] Other 01-30-2023 15:40-0500 Body weight 101.87 kg [facility] 01-30-2023 15:40-0500 Diastolic blood pressure 64 mm[Hg] Addie Hernandez Other [facility] 01-30-2023 15:40-0500 Respiratory rate 18 /min Addie Hernandez Other [facility] Other 01-30-2023 15:40-0500 SaO2% (BldA) [Mass fraction] 98 % Addie Hernandez Other Arnett Lucibel Other 01-30-2023 15:40-0500 Systolic blood pressure 131 mm[Hg] Addie Hernandez Other [facility] 12-13-2022 09:05-0400 Body height 160.02 cm Linda Swanson Other [facility] Other 12-13-2022 09:05-0400 Body mass index (BMI) [Ratio] 38.97 kg/m2 Linda Swanson Other [facility] Other 12-13-2022 09:05-0400 Body temperature 98.2 [degF] Linda Swanson Other [facility] Other 12-13-2022 09:05-0400 Body weight 99.79 kg Linda Swanson Other [facility] Other 12-13-2022 09:05-0400 Diastolic blood pressure 76 mm[Hg] Linda Swanson Other [facility] Other 12-13-2022 09:05-0400 Respiratory rate 18 /min Linda Swanson Other [facility] Other 12-13-2022 09:05-0400 SaO2% (BldA) [Mass fraction] 98 % Linda Swanson Other [facility] Other 12-13-2022 09:05-0400 Systolic blood pressure 112 mm[Hg] Linda Swanson Other [facility] Other 08-15-2022 12:00-0400 Body height 160.02 cm Addie Mary Other [facility] Other 08-15-2022 12:00-0400 Body mass index (BMI) [Ratio] 40.21 kg/m2 Addie Herndonmond Other [facility] Other 08-15-2022 12:00-0400 Body temperature 97.7 [degF] Addie Herndonmond Other [facility] Other 08-15-2022 12:00-0400 Body weight 102.97 kg Addie Mary Other [facility] Other 08-15-2022 12:00-0400 Diastolic blood pressure 72 mm[Hg] Addie Mary Other [facility] Other 08-15-2022 12:00-0400 Respiratory rate 18 /min Addie Mary Other [facility] Other 08-15-2022 12:00-0400 SaO2% (BldA) [Mass fraction] 98 % Addie Mary Other [facility] Other 08-15-2022 12:00-0400 Systolic blood pressure 118 mm[Hg] Addie Hernandez Other [facility] Other 07-01-2022 14:08-0400 Body weight 100.[address] IVY BAKER . [facility] Comment on above: Result Comment: This is a corrected repo rt. The previously reported result was: Weight 06/29/2022 Not provided. . Performed By: #### A FPMAT #### [facility] [address] [place] [address] Dr. Cathleen Godwin Encounters Encounter Date Encounter Type Care Provider Facility Start: 11-07-2024 End: 11-07-2024 TransferWiseheet Tess Lopez NP Work Phone: [facility] [place] [facility] Start: 11-07-2024 End: 11-07-2024 BamHooftyMatcho ModaMiheet Tess Lopez CUSHION STUFFER Work Phone: [facility] Start: 11-07-2024 End: 11-07-2024 Office outpatient visit 15 minutes Tess Lopez NP Work Phone: [facility] Comment on above: 17 weeks gestation o f ([facility]); Second trimester ([facility]); History of hyperthyroidism; Well woman exam with routine gynecological exam; Screening, , for anatomic survey ([facility]); Vaginal discharge; Exposure to STD Start: 11-07-2024 End: 11-07-2024 Patient encounter procedure [facility] Start: 10-23-2024 End: 10-23-2024 Emergency department patient visit NO PCP NO PCP [facility] Start: 10-08-2024 End: 10-08-2024 Bamboo ModaMiheet Ivy Baker DO Work Phone: [facility] Start: 10-08-2024 End: 10-08-2024 Bamboo flowsheet Ivy Samuel DO Work Phone: [facility] Start: 10-08-2024 End: 10-08-2024 Office outpatient visit 15 minutes Ivy Samuel DO Work Phone: [facility] Comment on above: 13 weeks gestation o f ([facility]); Second trimester ([facility]); Nausea and vomiting in ([facility]); History of hyperthyroidism; Constipation, unspecified constipation type Start: 10-08-2024 End: 10-08-2024 ambulatory IVY SAMUEL Not Available Start: 10-04-2024 End: 10-04-2024 Bamboo flowsheet Allen Brizuela MD Work Phone: [facility] Start: 10-04-2024 End: 10-04-2024 Bamboo flowsheet [facility]uel[facility] Start: 10-04-2024 End: 10-04-2024 Office outpatient visit 25 minutes [facility]uel[facility] 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 [...] department patient visit NO PCP NO PCP [facility] Start: 08-21-2024 End: 08-21-2024 Clinisync Result Encounter [...] Work Phone: [facility] Unsolicited Start: 08-09-2024 End: 08-09-2024 Jay Brizuela MD Work Phone: [facility] Start: 08-09-2024 End: 08-09-2024 Jay Brizuela MD [facility] Start: 08-09-2024 End: 08-09-2024 ambulatory ALLEN BRIZUELA Not Available Start: 08-09-2024 End: 08-09-2024 Office outpatient visit 25 minutes Allen Brizuela MD Work Phone: [facility] 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 (Primary Dx); Vitamin D deficiency; Encounter for dietary consultation; Class 3 severe obesity due to excess calories without serious comorbidity with body mass index (BMI) of 40.0 to 44.9 in adult ([facility]); Thyroid disease during , first trimester ([facility]); Hypothyroidism, unspecified type Start: 05-13-2024 Patient encounter status Allen Brizuela MD Work Phone: [facility] Start: 03-26-2024 End: 03-26-2024 Patient encounter procedure Ivy Samueljuan MARINELLI Work Phone: [facility] Comment on above: Encounter for remova l of intrauterine contraceptive device (IUD) Start: 03-26-2024 End: 03-26-2024 ambulatory IVY WILLIAMSONO Not Available Start: 11-20-2023 End: 11-20-2023 Patient encounter procedure JUICE Altman Work Phone: [facility] Work Phone: Start: 11-20-2023 End: 11-20-2023 ambulatory NON STAFF [facility] Work Phone: Start: 11-20-2023 End: 11-20-2023 ambulatory NON STAFF [facility] Work Phone: Start: 11-20-2023 End: 11-20-2023 Patient encounter procedure JUICE Altman Work Phone: [facility] Work Phone: Start: 10-10-2023 End: 10-10-2023 Departed Referred JUICE Altman Work Phone: [facility] [place] Work Phone: Start: 10-10-2023 End: 10-10-2023 ambulatory Diana Altman [facility] Work Phone: Start: 10-10-2023 End: 10-10-2023 Patient encounter procedure [facility] Work Phone: Start: 04-18-2023 End: 04-18-2023 ambulatory [facility] Work Phone: Start: 04-18-2023 End: 04-18-2023 Patient encounter procedure [facility] Work Phone: Start: 04-06-2023 End: 04-06-2023 ambulatory Linda Swanson Other [facility] Other Start: 04-06-2023 Office outpatient vi sit 25 minutes Linda Swanson [facility] Start: 02-02-2023 End: 02-02-2023 ambulatory Linda Swanson Other [facility] Other Start: 02-02-2023 Telephone encounter Linda Swanson [facility] [address] Start: 01-30-2023 End: 01-30-2023 ambulatory Addie Hernandez Other [facility] Other Start: 01-30-2023 Office outpatient vi sit 15 minutes Addiekentrell Hernandez [facility] Start: 01-30-2023 End: 01-30-2023 Patient encounter procedure [facility] Work Phone: Start: 12-13-2022 Office outpatient vi sit 15 minutes Linda Sky [facility] Start: 12-13-2022 End: 12-13-2022 Patient encounter procedure OPERATIONS SECTION MANAGER Linda Swanson Work Phone: [facility] Work Phone: Start: 12-13-2022 End: 12-13-2022 ambulatory Linda Swanson [facility] Work Phone: Start: 08-15-2022 End: 08-15-2022 ambulatory Addie Hernandez Other [facility] [employer] Other Start: 08-15-2022 Office outpatient ne w 20 minutes Addie Hernandez [facility] Start: 07-26-2022 End: 07-26-[address] IVY BAKER . Facility:[facility] Start: 06-27-2022 End: 06-28-[address] IVY BAKER . Facility:[facility] Start: 06-27-2022 End: 06-28-[address] IVY BAKER . Facility:[facility] Start: 06-10-2020 End: 06-10-2020 ambulatory Jose A Francylogankyle Work Phone: COVID Vaccine Steven Procedures Date Procedure Procedure Detail Performing Clinician Start: 11-07-2024 Urnls dip stick/tabl et rgnt non-auto w/o micrscp Tess Lopez CUSHION STUFFER Work Phone: Start: 10-08-2024 Urnls dip stick/tabl et rgnt non-auto w/o micrscp Ivy Samuel DO Work Phone: Start: 10-03-2024 GLUCOSE TOLERANCE 3 HOUR Ivy Samuel DO Work Phone: Start: 09-19-2024 ALL CBC WITH AUTO DIFF Ivy Samuel DO Work Phone: Start: 09-06-2024 ALL CBC WITH AUTO DIFF Ivy Samuel DO Work Phone: Start: 09-05-2024 Urnls dip stick/tabl et rgnt non-auto w/o micrscp Ivy Samuel DO Work Phone: Start: 08-21-2024 [facility] PREG QUANT HCG Core y Samuel DO Work Phone: Start: 06-23-2025 [facility] PREG QUANT HCG Core y Samuel DO Work Phone: Start: 03-26-2024 IUD REMOVAL Ivy Fazi o DO Work Phone: Start: 11-20-2023 COVID Antigen (POC) APR Jarek Altman Work Phone: Start: 11-20-2023 Quick Strep (POC) OPERATIONS SECTION MANAGERJarek Altman Work Phone: Start: 11-20-2023 Plain chest X-ray OPERATIONS SECTION MANAGER Diana Altman Work Phone: Start: 10-10-2023 Urine culture OPERATIONS SECTION MANAGER Gaston Altman Work Phone: Start: 04-18-2023 COVID/Influenza Anti gen (POC) Start: 12-13-2022 X-ray of left ankle APR Jarek Swanson Work Phone: Plan of Treatment Date Care Activity Detail Author Start: 12-12-2024 End: 12-12-2024 Patient encounter procedure 12/12/2024 11:20 AM EDT Routine [facility] [address] [place] [address] Ivy Baker DO [address] [place] [address] [facility]irre OBGYJarek Start: 11-14-2024 End: 11-14-2024 Patient encounter procedure 11/14/2024 11:20 AM EDT Office Visit [facility] [address] [place] [id number] Allen Brizuela MD [address] [place] [address] [facility] Start: 11-07-2024 End: 12-07-2024 Alpha fetoprotein, maternal Alpha fetoprotein, maternal Lab Routine 17 weeks gestation of ([facility]) Second trimester ([facility]) Expected: 11/07/2024 (Approximate), Expires: 12/07/2024 [facility] Comment on above: Expected: 11/07/2024 (Approximate), Expi res: 12/07/2024 Start: 11-07-2024 End: 02-06-2025 US for US OB 14+ weeks anatomy scan Imaging Routine Screening, , for anatomic survey ([facility]) Expected: 11/07/2024, Expires: 02/06/2025 [facility] Comment on above: Expected: 11/07/2024, Expires: Start: 11-07-2024 End: 11-07-2024 Patient encounter procedure [facility] Comment on above: Arrived Start: 10-08-2024 End: 10-08-2024 Patient encounter procedure [facility] Comment on above: Arrived Start: 10-04-2024 End: 10-04-2025 Thyrotropin [Units/volume] in Serum or Plasma TSH Lab Routine Alfredo's disease Thyroid disease during , first trimester (HCC) Expected: 10/04/2024 (Approximate), Expires: 10/04/2025 [facility] Comment on above: Expected: 10/04/2024 (Approximate), Expi res: 10/04/2025 Start: 10-04-2024 End: 10-04-2025 Thyroxine (T4) free [Mass/volume] in Serum or Plasma T4, free Lab Routine Alfredo's disease Thyroid disease during , first trimester (HCC) Expected: 10/04/2024 (Approximate), Expires: 10/04/2025 [facility] Comment on above: Expected: 10/04/2024 (Approximate), Expi res: 10/04/2025 Start: 10-04-2024 End: 10-04-2025 Triiodothyronine (T3) Free [Mass/volume] in Serum or Plasma T3, free Lab Routine Alfredo's disease Thyroid disease during , first trimester (HCC) Expected: 10/04/2024 (Approximate), Expires: 10/04/2025 [facility] Work Phone: Comment on above: Expected: 10/04/2024 (Approximate), Expi res: 10/04/2025 Start: 10-04-2024 End: 10-04-2024 Patient encounter procedure [facility] Comment on above: Arrived Start: 09-05-2024 End: 09-05-2025 ABO/Rh ABO/Rh Lab Routine Missed menses , unspecified gestational age ([facility]) Expected: 09/05/2024 (Approximate), Expires: 09/05/2025 [facility] Comment on above: Expected: 09/05/2024 (Approximate), Expi res: 09/05/2025 Start: 09-05-2024 End: 09-05-2025 Blood type and Indirect antibody screen panel - Blood Type and screen Lab Routine Missed menses , unspecified gestational age ([facility]) Expected: 09/05/2024 (Approximate), Expires: 09/05/2025 [facility] Work Phone: Comment on above: Expected: 09/05/2024 (Approximate), Expi res: 09/05/2025 Start: 09-05-2024 End: 09-05-2025 Drugs of abuse panel - Urine by Screen method Rapid drug screen, urine Lab Routine , unspecified gestational age ([facility]) Encounter for supervision of normal first in first trimester ([facility]) Expected: 09/05/2024 (Approximate), Expires: 09/05/2025 [facility] Comment on above: Expected: 09/05/2024 (Approximate), Expi res: 09/05/2025 Start: 09-05-2024 End: 09-05-2024 ambulatory 09/05/2024 1:30 PM EDT Initial [facility] [address] [place] [phone] [facility] Start: 09-05-2024 End: 09-05-2024 Professional / ancillary services management 09/05/2024 1:00 PM EDT Ancillary Procedure [place] [address] [facility] Start: 08-09-2024 End: 08-09-2025 Thyrotropin [Units/volume] in Serum or Plasma TSH Lab Routine Alfredo's disease Thyroid disease during , first trimester (HCC) Expected: 08/09/2024 (Approximate), Expires: 08/09/2025 [facility] Comment on above: Expected: 08/09/2024 (Approximate), Expi res: 08/09/2025 Start: 08-09-2024 End: 08-09-2025 Thyroxine (T4) free [Mass/volume] in Serum or Plasma T4, free Lab Routine Alfredo's disease Thyroid disease during , first trimester (HCC) Expected: 08/09/2024 (Approximate), Expires: 08/09/2025 [facility] Comment on above: Expected: 08/09/2024 (Approximate), Expi res: 08/09/2025 Start: 08-09-2024 End: 08-09-2025 Triiodothyronine (T3) Free [Mass/volume] in Serum or Plasma T3, free Lab Routine Alfredo's disease Thyroid disease during , first trimester (HCC) Expected: 08/09/2024 (Approximate), Expires: 08/09/2025 [facility] Work Phone: Comment on above: Expected: 08/09/2024 (Approximate), Expi res: 08/09/2025 Start: 10-10-2023 Bacteria identified in Urine by Culture [facility] Start: 07-09-2023 Urine microalbumin profile DTAP,TDAP,TD (2 - Td) [facility] Start: 12-11-2020 PAP TESTING PAP TESTING [facility] Start: 10-28-2020 Influenza vaccination INFLUENZA (Season Ended) [facility] Start: 2011 HEPATITIS C SCREENING HEPATITIS C SCREENING [facility] Start: 2011 HIV SCREENING HIV SCREENING [facility] Start: 2005 Adult depression screening assessment DEPRESSION SCREENING [facility] Bacteria identified in Urine by Culture Urine culture Microbiology Routine Missed menses Ordered: 09/05/2024 [facility] Comment on above: Ordered: 09/05/2024 CBC W Auto Different ial panel - Blood CBC and differential Lab Routine Missed menses , unspecified gestational age ([facility]) Ordered: 09/05/2024 [facility] Comment on above: Ordered: 09/05/2024 CHLAMYDIA TRACHOMATI S (GENITO/STI) CHLAMYDIA TRACHOMATIS (GENITO/STI) Lab Routine Vaginal discharge Ordered: 11/07/2024 [facility] Comment on above: Ordered: 11/07/2024 Cytology Cervical or vaginal smear or scraping study Pap Smear Pathology and Cytology Routine Well woman exam with routine gynecological exam Ordered: 11/07/2024 [facility] Comment on above: Ordered: 11/07/2024 Hemoglobin A1c/Hemoglobin.total in Blood Hemoglobin A1c Lab Routine Missed menses , unspecified gestational age ([facility]) Ordered: 09/05/2024 [facility] Comment on above: Ordered: 09/05/2024 Hepatitis B virus andrade rface Ag [Presence] in Serum or Plasma by Immunoassay Hepatitis B surface antigen Lab Routine Missed menses , unspecified gestational age ([facility]) Ordered: 09/05/2024 [facility] Comment on above: Ordered: 09/05/2024 Hepatitis C virus Ab [Presence] in Serum or Plasma by Immunoassay Hepatitis C antibody Lab Routine Missed menses , unspecified gestational age ([facility]) Ordered: 09/05/2024 [facility] Comment on above: Ordered: 09/05/2024 HIV-1/HIV-2 antigen/antibody combination immunoassay HIV-1 and HIV-2 antibodies Lab Routine Missed menses , unspecified gestational age ([facility]) Ordered: 09/05/2024 [facility] Comment on above: Ordered: 09/05/2024 Human papilloma viru s DNA [Presence] in Unspecified specimen by Probe with amplification HPV DNA probe, amplified Microbiology Routine Well woman exam with routine gynecological exam Ordered: 11/07/2024 [facility] Comment on above: Ordered: 11/07/2024 Neisseria gonorrhoea e DNA [Presence] in Unspecified specimen by NICHOLE with probe detection Neisseria gonorrhea DNA probe, direct Lab Routine Vaginal discharge Ordered: 11/07/2024 [facility] Comment on above: Ordered: 11/07/2024 Reagin Ab [Presence] in Serum by RPR RPR Lab Routine Missed menses , unspecified gestational age ([facility]) Ordered: 09/05/2024 [facility] Comment on above: Ordered: 09/05/2024 Rubella antibody, IgG Rubella an tibody, IgG Lab Routine Missed menses , unspecified gestational age ([facility]) Ordered: 09/05/2024 [facility] Comment on above: Ordered: 09/05/2024 End: 08-09-2020 SARS-COVID VACCINE 1ST DOSE APPT SARS-COVID VACCINE 1ST DOSE APPT Procedures Routine 1 Occurrences starting 06/10/2020 until 08/09/2020 [facility] Comment on above: 1 Occurrences starting 06/10/2020 until 08/09/2020 SURESWAB(R) ADVANCED VAGINITIS PLUS, TMA SURESWAB(R) ADVANCED VAGINITIS PLUS, TMA Pathology and Cytology Routine Exposure to STD Ordered: 11/07/2024 [facility] Work Phone: Comment on above: Ordered: 11/07/2024 XR Chest 2 Views [facility] Immunizations Immunization Date Immunization Notes Care Provider Harriett corbin 08-04-2005 tetanus toxoid, redu sanchez diphtheria toxoid, and acellular pertussis vaccine, adsorbed Allen Brizuela MD Work Phone: [facility] Payers Date Payer Category Payer Medicaid (Managed Care) [employer] [id number] 2022 Self-pay 2022 Medicaid [id number] 2018 Private Health Insurance [employer] PPO [id number] 2018-Present PPO [id number] 2018 Private Health Insurance [employer] PPO [id number] 2018-Present PPO [id number] 1993 Unknown [id number]. 593 1993 Unknown [id number] 2.16.840.1.940290.3.579.2. 593 1993 Unknown [id number] 2.16.840.1.653768.3.579.2. 593 1993 Unknown [id number] 2.16.840.1.017227.3.579.2. 1259 1993 Unknown [id number] 2.16.840.1.850193.3.579.2. 1259 1993 Unknown [id number] 2.16.840.1.188760.3.579.2. 1259 1993 Unknown [id number] 2.16.840.1.468513.3.579.2. 1259 1993 Unknown [id number] 2.16.840.1.108631.3.579.2. 1259 1993 Unknown [id number] 2.16.840.1.067841.3.579.2. 1259 1993 Unknown [id number] 2.16.840.1.206255.3.579.2. 1286 1993 Unknown [id number] [id number]. 1286 Unknown [id number] [id number]. 531 Unknown [id number] [id number]. 531 Unknown [id number] [id number]. 531 Social History Date Type Detail Facility Start: 07-02-2018 End: 08-07-2023 Tobacco smoking status NHIS Never smoker [facility] Start: 07-02-2018 End: 08-07-2023 Tobacco use and exposure Never used [facility] Start: 07-02-2018 End: 11-07-2024 Alcohol intake Current drinker of alcohol (finding) [facility] Start: 1995 Sex Assigned At Not on file [facility] Start: 08-07-2023 End: 08-09-2024 Sex Assigned At [facility] Start: 1995 Sex Assigned At Female [facility] Start: 08-07-2023 End: 08-09-2024 Alcoholic beverage intake [facility] Start: 09-04-2022 Alcohol Comment Alcohol: 1 or 2 drinks, 2 to 4 times a month; Caffeine: 1 can /week [facility] Start: 07-26-2022 Gender identity Identifies as female gender (finding) [facility] Start: 07-26-2022 Sexual orientation Heterosexual (finding) [facility] Start: 07-19-2024 [facility] Clinical Notes 06-10-2020 to 11-07-2024 Tess Lopez NP - 11/07/2024 11:10 AM Stas Galeana ORDER TRACER - 10/08/2024 1:50 PM Kim Flannery LPN - 09/05/2024 1:30 PM Rylee Brizuela MD - 08/09/2024 11:10 AM EDT Note Date & Type Note Facility 11-07-2024 History of Presen t illness Narrative Reason for Appointment: Patient ID: Brittnee Smith is a 29 y.o. female who presents for Routine Visit Patient presents today for Return OB appointment. MEDICATIONS Current Outpatient Medications Medication Instructions bisacodyl (Dulcolax) 10 MG suppository UNWRAP AND INSERT 1 SUPPOSITORY RECTALLY DAILY FOR 10 DAYS docusate sodium (COLACE) 100 mg, Oral, 2 times daily PRN fluticasone (Flonase) 50 MCG/ACT nasal spray 1 spray, Daily levothyroxine (SYNTHROID) 25 mcg, Oral, Daily before breakfast Vit-Fe Fumarate-FA ( Vitamins) 28-0.8 MG tablet 1 tablet, Oral, Daily promethazine (PHENERGAN) 12.5 mg, Oral, Every 4 hours Synthroid 300 mcg, Oral, Daily Synthroid 300 mcg, Oral, Daily before breakfast ALLERGIES Allergies Allergen Reactions Sulfa Antibiotics Other and Rash Other Reaction(s): Unknown Other Rash and Other PEDIAZOLE Sulfamethoxazole Rash PROBLEMS Active Ambulatory Problems Diagnosis Date Noted Anemia 07/26/2022 Cluster headache syndrome 07/26/2022 Congenital hypothyroidism without goiter 07/26/2022 Hypothyroid 1993 Thyroiditis 06/27/2016 Missed period 07/26/2022 Obesity (BMI 35.0-39.9 without comorbidity) 11/16/2017 Unable to comply with treatment 07/26/2022 ([facility]) 11/28/2017 Exposure to STD 05/31/2023 Encounter for weight management 05/31/2023 Dermatitis, atopic 08/04/2005 Allergic rhinitis 02/18/2000 Asthma ([facility]) 02/18/2000 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 Acute bronchitis 05/13/2024 Acute pharyngitis 09/10/2009 Acute streptococcal pharyngitis 05/13/2024 Encounter for childhood immunizations appropriate for age 0708/30/2007 Obesity affecting , antepartum ([facility]) 11/13/2018 Hyperthyroidism 11/28/2017 Resolved Ambulatory Problems Diagnosis Date Noted Anemia of ([facility]) 04/24/2018 -induced hypertension ([facility]) 04/29/2018 Past Medical History: Diagnosis Date Body mass index 38.0-38.9, adult Cluster headache Dietary counseling and surveillance Disease of thyroid gland H/O chlamydia infection History of medical problems Hypothyroidism Obesity UTI (urinary tract infection) 2014 Vitamin D deficiency HISTORY PAST MEDICAL HISTORY SOCIAL HISTORY Past Medical History: Diagnosis Date Anemia Body mass index 38.0-38.9, adult Cluster headache Dietary counseling and surveillance Disease of thyroid gland H/O chlamydia infection History of medical problems absent thyroid Hypothyroidism Obesity UTI (urinary tract infection) 2014 Vitamin D deficiency Social History Tobacco Use Smoking status: Never Smokeless tobacco: Never Substance Use Topics Alcohol use: Yes Alcohol/week: 2.0 standard drinks of alcohol Types: 2 Glasses of wine per week Comment: Alcohol: 1 or 2 drinks, 2 to 4 times a month; Caffeine: 1 can /week Drug use: Never FAMILY HISTORY Family History Problem Relation Name Age of Onset Hypothyroidism Father Diabetes Maternal Grandfather Grandpa Lymphoma Paternal Grandfather Diabetes Other paternal aunts Thyroid disease Other paternal side SURGICAL HISTORY Past Surgical History: Procedure Laterality Date HAND SURGERY 2015 ORIF right hand WISDOM TOOTH EXTRACTION 07/2013 teeth REVIEW OF SYSTEMS Review of Systems: Review of Systems All other systems reviewed and are negative. OBJECTIVE Objective: Physical Exam Constitutional: Appearance: Normal [...] nursing note reviewed. Exam conducted with a warehouse forklift operator present. Vitals: Estimated body mass index is 40.64 kg/m as calculated from the following: Height as of 10/04/24: 5' 3 . Weight as of this encounter: 229 lb 6.4 oz. BP: 100/72 Patient's last menstrual period was 06/26/2024. ASSESSMENT & PLAN ICD-10-CM 1. 17 weeks gestation of ([facility]) Z3A.17 POCT urinalysis dipstick manually resulted Alpha fetoprotein, maternal Alpha fetoprotein, maternal 2. Second trimester ([facility]) Z34.92 POCT urinalysis dipstick manually resulted Alpha fetoprotein, maternal Alpha fetoprotein, maternal 3. History of hyperthyroidism Z86.39 4. Well woman exam with routine gynecological exam Z01.419 Pap Smear HPV DNA probe, amplified 5. Screening, , for anatomic survey ([facility]) Z36.89 US OB 14+ weeks anatomy scan US OB 14+ weeks anatomy scan 6. Vaginal discharge N89.8 CHLAMYDIA TRACHOMATIS (GENITO/STI) Neisseria gonorrhea DNA probe, direct 7. Exposure to STD Z20.2 SURESWAB(R) ADVANCED VAGINITIS PLUS, TMA Return OB/Annual Exam: Patient presents today for a annual exam/routine obstetrics appointment. Patient is currently 17w6d . Patient states she is doing well but has complaints of nausea in the morning. Pap and cultures was obtained without difficulty and patient was given orders for anatomy scan and msAFP to be obtained. Patient states that she was not able to start the Synthroid 25 mcg as her insurance denied this as she does need to have the brand and will need documentation to support why she does need this medication. Patient states that the generic does not help her has no effect and does make her tired. Patient advised we will resubmit. Patient is currently taking Synthroid at 300mcg per Dr. Brizuela her Head Swamper. Will also refer to [facility] Patient was in the ER for a toe infection and was treated she was having high blood pressure there and she is seeing [facility] for about 1 1/2 to 2 weeks. Referral will be sent to [facility] given her history of hypothyroidism. Orders Placed This Encounter Procedures HPV DNA probe, amplified US OB 14+ weeks anatomy scan CHLAMYDIA TRACHOMATIS (GENITO/STI) Neisseria gonorrhea DNA probe, direct Alpha fetoprotein, maternal POCT urinalysis dipstick manually resulted Follow Up: Patient is to schedule annual exam for next year and return to office in 4 weeks for OB appointment. Documented by Carolina Stone LPN on behalf of: Tess Lopez NP documented in this encounter [facility] 10-08-2024 History of Presen t illness Narrative Reason for Appointment: Patient ID: Brittnee Smith is a 29 y.o. female who presents for Routine Visit Patient presents today for Return OB appointment. MEDICATIONS Current Outpatient Medications Medication Instructions fluticasone (Flonase) 50 MCG/ACT nasal spray 1 spray, Daily ondansetron ODT (ZOFRAN-ODT) 4 mg, Oral, Every 6 hours PRN Vit-Fe Fumarate-FA ( Vitamins) 28-0.8 MG tablet 1 tablet, Oral, Daily Synthroid 300 mcg, Oral, Daily Synthroid 300 mcg, Oral, Daily before breakfast ALLERGIES Allergies Allergen Reactions Sulfa Antibiotics Other and Rash Other Reaction(s): Unknown Other Rash and Other PEDIAZOLE Sulfamethoxazole Rash PROBLEMS Active Ambulatory Problems Diagnosis Date Noted Anemia 07/26/2022 Cluster headache syndrome 07/26/2022 Congenital hypothyroidism without goiter 07/26/2022 Hypothyroid 1993 Thyroiditis 06/27/2016 Missed period 07/26/2022 Obesity (BMI 35.0-39.9 without comorbidity) 11/16/2017 Unable to comply with treatment 07/26/2022 ([facility]) 11/28/2017 Exposure to STD 05/31/2023 Encounter for weight management 05/31/2023 Dermatitis, atopic 08/04/2005 Allergic rhinitis 02/18/2000 Asthma ([facility]) 02/18/2000 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 Acute bronchitis 05/13/2024 Acute pharyngitis 09/10/2009 Acute streptococcal pharyngitis 05/13/2024 Encounter for childhood immunizations appropriate for age 0708/30/2007 Obesity affecting , antepartum ([facility]) 11/13/2018 Hyperthyroidism 11/28/2017 Resolved Ambulatory Problems Diagnosis Date Noted Anemia of ([facility]) 04/24/2018 -induced hypertension ([facility]) 04/29/2018 Past Medical History: Diagnosis Date Body mass index 38.0-38.9, adult Cluster headache Dietary counseling and surveillance Disease of thyroid gland H/O chlamydia infection History of medical problems Hypothyroidism Obesity UTI (urinary tract infection) 2015 Vitamin D deficiency HISTORY PAST MEDICAL HISTORY SOCIAL HISTORY Past Medical History: Diagnosis Date Anemia Body mass index 38.0-38.9, adult Cluster headache Dietary counseling and surveillance Disease of thyroid gland H/O chlamydia infection History of medical problems absent thyroid Hypothyroidism Obesity UTI (urinary tract infection) 2015 Vitamin D deficiency Social History Tobacco Use Smoking status: Never Smokeless tobacco: Never Substance Use Topics Alcohol use: Yes Alcohol/week: 2.0 standard drinks of alcohol Types: 2 Glasses of wine per week Comment: Alcohol: 1 or 2 drinks, 2 to 4 times a month; Caffeine: 1 can /week Drug use: Never FAMILY HISTORY Family History Problem Relation Name Age of Onset Hypothyroidism Father Diabetes Maternal Grandfather Grandpa Lymphoma Paternal Grandfather Diabetes Other paternal aunts Thyroid disease Other paternal side SURGICAL HISTORY Past Surgical History: Procedure Laterality [...] Constitutional: Appearance: Normal appearance. She is well-developed. Cardiovascular: Rate and Rhythm: Normal rate and [...] nursing note reviewed. Exam conducted with a warehouse forklift operator present. Vitals: Estimated body mass index is 40.35 kg/m as calculated from the following: Height as of 10/04/24: 5' 3 . Weight as of this encounter: 227 lb 12.8 oz. BP: 108/70 Patient's last menstrual period was 06/26/2024. ASSESSMENT & PLAN ICD-10-CM 1. 13 weeks gestation of ([facility]) Z3A.13 POCT urinalysis dipstick manually resulted 2. Second trimester ([facility]) Z34.92 POCT urinalysis dipstick manually resulted New OB: Patient presents today for 1st time obstetrics appointment with provider. Patient is currently 13w4d . Patients history has been reviewed in great detail including any potential risks. Patient stated she currently has no complaints. Expectations throughout regarding labs, ultrasounds, and appointments have been discussed with the patient in detail. It was reiterated that the patient is to drink 6-8 glasses of water a day, eat 6 small meals a day, do not consume raw or undercooked meat, and stay away from [facility]. Patient has been consulted regarding any further do's and don'ts of . Patient voiced understanding and all questions and concerns were answered. Pt has complaints of constipation and nausea and vomiting. Rx for colace, dulcolax, and phenergan faxed to pharmacy Orders Placed This Encounter Procedures POCT urinalysis dipstick manually resulted Follow Up: Patient is to return in 4 weeks for routine OB appointment. 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 Acute bronchitis 05/13/2024 Acute pharyngitis 09/10/2009 Acute streptococcal pharyngitis 05/13/2024 Encounter for childhood immunizations appropriate for age 0708/30/2007 Obesity affecting , antepartum ([facility]) 11/13/2018 Hyperthyroidism 11/28/2017 Resolved Ambulatory Problems Diagnosis Date Noted Anemia of ([facility]) 04/24/2018 -induced hypertension ([facility]) 04/29/2018 Past Medical History: Diagnosis Date Body [...] dipstick manually resulted , unspecified gestational age ([facility]) - Type and screen; Future - ABO/Rh; Future - CBC and differential - Hemoglobin A1c - RPR - Rubella antibody, IgG - Hepatitis B surface antigen - Hepatitis C antibody - HIV-1 and HIV-2 antibodies - Rapid drug screen, urine; Future Encounter for supervision of normal first in first trimester ([facility]) - Rapid drug screen, urine; Future Nurse [...] or undercooked meat, and stay away from [facility]. Patient has also been advised to [...] Marcie Flannery LPN documented in this encounter [facility] 08-09-2024 History of Presen t illness [...] (BMI) of 40.0 to 44.9 in adult ([facility]) Thyroid disease during , first trimester ([facility]) - Synthroid 300 MCG tablet; Take 1 tablet (300 mcg) by mouth Daily - T3, free; Future - T4, free; Future - TSH; Future She just found she is , we will check free T4 free T3 to keep it in the high-normal. Follow up in about 2 months (around 10/09/2024). documented in this encounter [facility] 03-26-2024 History of Presen t illness [...] nursing note reviewed. Exam conducted with a warehouse forklift operator present. Vitals: Estimated body mass index is 40.94 kg/m as calculated from the following: Height as of 08/07/23: 5' 3 . Weight as of this [...] given: yes Instructions and paperwork completed: yes [place] protocol: Patient states understanding of procedure being [...] Ivy Baker DO documented in this encounter [facility] 04-06-2023 Evaluation note Encounter Date Diagnosis [...] treatment plan. Patient left in stable condition. [facility] Other 12-04-2023 Evaluation note* Encounter Date Diagnosis [...] the ER for worsening symptoms or concerns [facility] 10-17-2023 Evaluation note* Encounter Date Diagnosis [...] understanding and is agreeable to treatment plan [facility] Other 06-19-2023 Evaluation note* Encounter Date Diagnosis [...] Tylenol as needed for aches or pains. Arnett Lucibel Other 04-14-2021 NotePatient Outreach ([facility]) BRITTNEE SMITH ([id number]) 1995 F Date Time Provider Department 06/10/20 JOSE A STEWART [facility] During your visit today, we recorded the following information about you: Allergies As of Date: 06/10/2020 Noted Allergy Reaction SULFA (SULFONAMIDE ANTIBIOTICS) 07/02/2018 2 - Rash Date Reviewed: 07/02/2018 Reviewed by: Sakina HWANG) - Fully Assessed Order(s):SARS-COVID VACCINE 1ST DOSE APPT [[id number]] Order #: [id number] FUTURE SARS-COVID VACCINE 1ST DOSE APPT [[id number]] Order #: [id number] Prescriptions as of 06/10/2020 Sig: SYNTHROID 125 MCG TABLET Take 2 tablets by mouth once * Problem List As Of Date: 06/10/2020 (None) Encounter Status:Closed by [facility], [facility] information [facility] Work Phone: Evaluation noteNo InformationNortSCI-[facility] [employer] Other evaluation note* Diagnosis Onset Date Resolution Status Acute UTI [facility] Work Phone: Evaluation note* Diagnosis Onset Date Resolution Status Acute UTI acute Bronchitis acute [facility] Work Phone: Evaluation note* Diagnosis Encounter for removal of intrauterine contraceptive device (IUD) documented in this encounter [facility] HealthcareEvaluation note* Diagnosis Alfredo's disease- Primary Chronic lymphocytic thyroiditis Vitamin D deficiency Encounter for dietary consultation Class 3 severe obesity due to excess calories without serious comorbidity with body mass index (BMI) of 40.0 to 44.9 in adult ([facility]) Thyroid disease during , first trimester ([facility]) Hypothyroidism, unspecified type documented in this encounter [facility] HealthcareEvaluation note* Diagnosis Missed menses , unspecified gestational age ([facility]) Encounter for supervision of normal first in first trimester ([facility]) documented in this encounter [facility] HealthcareEvaluation note* Diagnosis Alfredo's disease- Primary Chronic lymphocytic thyroiditis Vitamin D deficiency Encounter for dietary consultation Thyroid disease during , first trimester ([facility]) Hypothyroidism, unspecified type documented in this encounter [facility] HealthcareEvaluation note* Diagnosis 13 weeks gestation of ([facility]) Second trimester ([facility]) state, incidental Nausea and vomiting in ([facility]) Unspecified vomiting of , unspecified as to episode of care History of hyperthyroidism Constipation, unspecified constipation type documented in this encounter [facility] HealthcareEvaluation note* Diagnosis 17 weeks gestation of ([facility]) Second trimester ([facility]) state, incidental History of hyperthyroidism Well woman exam with routine gynecological exam Routine gynecological examination Screening, , for anatomic survey ([facility]) Encounter for anatomic survey Vaginal discharge Leukorrhea, not specified as infective Exposure to STD documented in this encounter [facility] HealthcareHistory general Narrative - Reported* Type Description Date Medical History Hypothyroid Surgical History hand surgery [facility] Other History general Narrative - Reported* Type Description Date Medical History Hypothyroid Surgical History hand surgery Hospitalization History childbirth [facility] History of Present illness Narrative* Allen [...] or prosecute any alcohol or drug abuse patient.[facility] INFORMATION SOURCE (unrecogn ized section and content) DATE CREATED AUTHOR 06/17/2020 [facility] DATE CREATED AUTHOR AUTHOR'S ORGANIZ ATION 08/05/2022 [facility] DATE CREATED AUTHOR AUTHOR'S ORGANIZ ATION 11/28/[address] [facility] DATE CREATED AUTHOR AUTHOR'S ORGANIZ ATION 10/10/2024 [facility] EPIC DATE CREATED AUTHOR AUTHOR'S ORGANIZ ATION 10/25/2024 [facility] REASON FOR VISIT (unrecogniz ed section and content) Reason Comments Removal of Mirena IUD Reason Comments Thyroid Problem Reason Comments Amenorrhea Reason Comments Thyroid Problem Follow-up Reason Comments Routine Visit Care Teams (unrecognized sec tion and content) [...] November 20, 2023 End: November 20, 2023 brendon Victoria APRN Attending Provider Active S tart: [...] BE BASED ON THE PRIMARY CLINICAL RECORDS. [facility] [employer] [facility]. provides no warranty or guarantee of the accuracy or completeness of information in this document.
[2024-11-13 15:08] LABS: Age Gdln ACOG Testing Note (.); IGP, Aptima HPV, rfx 16/18,45 Note (.)
== END 2024-11-07 19:26 | disposition home or self-care (01) ==
LOC: LAB 19:25
PROVIDERS: Visit Provider Nurse Practitioner Family
DX: Z01.419 Encounter for gynecological examination (general) (routine) without abnormal findings (principal)
CPT/HCPCS: 87624; 88175

== ENCOUNTER 2024-12-22 06:50 | Emergency (ER) | payer OTHER, SELFPAY ==
--- OUTSIDE RECORDS SUMMARY | 2024-12-12 09:30 | XMS_ITS | Encounter Summary ---
Author Organization [facility] Address [address] [place] [address] Care Team Providers Care Customer Manager Name Role Phone Unavailable Primary Care Provider Unavailabl e Reason for Visit * ReasonCommentsProcedureRoutine Visit Encounter Details DateTypeDepartmentCare Team (Latest Contact Info)Amfjnrdskow78/16/2025 9:30 AM EDTProcedure Visit [facility] [address] [place] [address] Ha Baker DO [address] [place] [address] Colposcopy needed after cervical smear; Second trimester ([facility]); 22 weeks gestation of ([facility]) Social History Tobacco UseTypesPacks/DayYears UsedDateSmoking Tobacco: NeverSmokeless Tobacco: NeverAlcohol UseStandard Drinks/WeekCommentsYes2 (1 standard drink = 0.6 oz pure alcohol)Alcohol: 1 or 2 drinks, 2 to 4 times a month; Caffeine: 1 can /weekPHQ-2 AnswerDate RecordedPatient Health Questionnaire-2 Ayody611 Estimated Date of DagebbosYiaviyslVxe05/13/2026ased on UltrasoundSex and Gender InformationValueDate RecordedSex Assigned at FwtpwDttozo79/30/2023 8:23 AM EDT Legal YvhHmkptu47/15/2023 7:11 PM EDTGender HmisshyuLnuhuy74/30/2023 8:23 AM EDT Sexual ZfkbkeizzijWhwgqkss02/30/2023 8:23 AM EDTdocumented as of this encounter Last Filed Vital Signs Vital SignReadingTime TakenCommentsBlood Sqvptepk919/6210 9:24 AM EDT Pulse--Temperature--Respiratory Rate--Oxygen Saturation--Inhaled Oxygen Concentration--Uxqxov396 kg (236 lb)12/12/2024 9:24 AM EDTHeight--Body Mass Index41.8108 10:07 AM EDTdocumented in this encounter Progress Notes * Calista Khan LPN - 12/12/2024 9:30 AM EDTAssociated Order(s): Colposcopy Post-Procedure Diagnose(s): Colposcopy needed after cervical smear; Second trimester ([facility]); 22 weeks gestation of ([facility]) Reason for Appointment: Patient ID: Raya Mathur is a 29 y.o. female who presents for Procedure and Routine Visit Patient presents today for a Colposcopy and Return OB appointment. MEDICATIONS Current Outpatient Medications Medication Instructions bisacodyl (Dulcolax) 10 MG suppository UNWRAP AND INSERT 1 SUPPOSITORY RECTALLY DAILY FOR 10 DAYS fluticasone (Flonase) 50 MCG/ACT nasal spray 1 spray, Daily levothyroxine (SYNTHROID) 25 mcg, Oral, Daily before breakfast Vit-Fe Fumarate-FA ( Vitamins) 28-0.8 MG tablet 1 tablet, Oral, Daily Synthroid 300 mcg, Oral, Daily before breakfast Synthroid 300 mcg, Oral, Daily ALLERGIES Allergies[1] PROBLEMS Active Ambulatory Problems Diagnosis Date Noted Anemia 07/26/2022 Cluster headache syndrome 07/26/2022 Congenital hypothyroidism without goiter 07/26/2022 Hypothyroid 1995 Thyroiditis 06/27/2016 Missed period 07/26/2022 Obesity (BMI 35.0-39.9 without comorbidity) 11/16/2017 Unable to comply with treatment 07/26/2022 ([facility]) 11/28/2017 Exposure to STD 05/31/2023 Encounter for weight management 05/31/2023 Dermatitis, atopic 08/04/2005 Allergic rhinitis 02/18/2000 Asthma (HCC) 02/18/2000 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 Acute bronchitis 05/13/2024 Acute pharyngitis 09/10/2009 Acute streptococcal pharyngitis 05/13/2024 Encounter for childhood immunizations appropriate for age 0708/30/2007 Obesity affecting , antepartum ([facility]) 11/13/2018 Hyperthyroidism 11/28/2017 Resolved Ambulatory Problems Diagnosis Date Noted Anemia of ([facility]) 04/24/2018 -induced hypertension ([facility]) 04/29/2018 Past Medical History: Diagnosis Date Body mass index 38.0-38.9, adult Cluster headache Dietary counseling and surveillance Disease of thyroid gland H/O chlamydia infection History of medical problems Hypothyroidism Obesity UTI (urinary tract infection) 2014 Vitamin D deficiency HISTORY PAST MEDICAL HISTORY SOCIAL HISTORY Medical History[2] Social History Tobacco Use Smoking status: Never Smokeless tobacco: Never Substance Use Topics Alcohol use: Yes Alcohol/week: 2.0 standard drinks of alcohol Types: 2 Glasses of wine per week Comment: Alcohol: 1 or 2 drinks, 2 to 4 times a month; Caffeine: 1 can /week Drug use: Never FAMILY HISTORY Family History[3] SURGICAL HISTORY Surgical History[4] REVIEW OF SYSTEMS Review of Systems: Review [...] nursing note reviewed. Exam conducted with a technical account manager present. Vitals: Estimated body mass index is 41.81 kg/m?? as calculated from the following: Height as of 10/04/24: 5' 3 . Weight as of this encounter: 236 lb. BP: 108/62 Patient's last menstrual period was 06/26/2024. ASSESSMENT & PLAN Assessment/Plan Encounter Diagnosis: ICD-10-CM 1. Colposcopy needed after cervical smear R87.619 2. Second trimester ([facility]) Z34.92 3. 22 weeks gestation of ([facility]) Z3A.22 POCT urinalysis dipstick manually resulted Colposcopy Date/Time: 12/12/2024 10:08 AM Performed by: Ha Baker DO Authorized by: Ha Baker DO Consent: Patient questions answered: yes Risks and benefits of the procedure and its alternatives discussed: yes Consent obtained: Written Consent given by: Patient Pre-procedure: Speculum was placed in the vagina: yes Prep solution(s): acetic acid Procedure: Colposcopy with: colposcopy only Cervix visibility: fully visualized Ferric subsulfate solution applied: no Tampon inserted: no Post-procedure: Patient tolerance of procedure: Patient tolerated the procedure well with no immediate complications Instructions and paperwork completed: yes Educational handouts given: no Colposcopy: Patient is doing well and has no complaints. Pap results have been reviewed with the patient in great detail and patient voiced understanding. Patient presents today for a Colposcopy NO BIOPSIES due to currently . Patient was placed in dorsal lithotomy position with feet in stirrups, a sterile speculum was placed into the vagina and the cervix was visualized. Cervix was cleansed with vinegar. Postprocedural instructions given. All if patients questions answered and she expressed understanding. Advised to call in interim with questions or concerns. Discussed patients glucose results and patient desires to perform daily testing to check sugar levels. At next appointment patient will be prescribed glucose supplies to check FSBS four times daily and will reassess if sugars need to continue to be checked after 4 weeks of levels. Patient is scheduled with [facility] for anatomy scan tomorrow. Follow Up: REPEAT PAP at 12 weeks post . Patient presents today for a routine obstetrics appointment. Patient is currently 22w6d with a Estimated Date of Delivery: 04/11/25. Patient to return to clinic in 4 weeks. Documented by Calista Khan LPN on behalf of: Ha Baker DO [1] Allergies Allergen Reactions Sulfa Antibiotics Other and Rash Other Reaction(s): Unknown Other Rash and Other PEDIAZOLE Sulfamethoxazole Rash [2] Past Medical History: Diagnosis Date Anemia Body mass index 38.0-38.9, adult Cluster headache Dietary counseling and surveillance Disease of thyroid gland H/O chlamydia infection History of medical problems absent thyroid Hypothyroidism Obesity UTI (urinary tract infection) 2014 Vitamin D deficiency [3] Family History Problem Relation Name Age of Onset Hypothyroidism Father Diabetes Maternal Grandfather Grandpa Lymphoma Paternal Grandfather Diabetes Other paternal aunts Thyroid disease Other paternal side [4] Past Surgical History: Procedure Laterality Date HAND SURGERY 2014 ORIF right hand WISDOM TOOTH EXTRACTION 07/2013 teeth documented in this encounter Plan of Treatment DateTypeDepartmentCare Team (Latest Contact Info)Teqznyztbwj00/13/2025 10:50 AM ESTRoutine [facility] [address] [place] [address] Karla Matthews PA [address] [place] [address] documented as of this encounter Procedures Procedure NamePriorityDate/TimeAssociated DiagnosisCommentsCOLPOSCOPYRoutine 12/12/2024 10:08 AM EDT Colposcopy needed after cervical smear Second trimester ([facility]) 22 weeks gestation of ([facility]) POCT URINALYSIS RYNEGNPUJtpzhix75/16/2025 9:30 AM EDT 22 weeks gestation of ([facility]) documented in this encounter Results * Colposcopy (12/12/2024 10:08 AM EDT) Calista Zaragoza LPN - 12/12/2024 10:08 AM EDT Calista Khan LPN 12/12/2024 10:24 AM Colposcopy Date/Time: 12/12/2024 10:08 AM Performed by: Ha Baker DO Authorized by: Ha Baker DO ?? Consent: ??Patient questions answered: yes ?Risks and benefits of the procedure and its alternatives discussed: yes ?Consent obtained: ??Written ??Consent given by: ??Patient Pre-procedure: ??Speculum was placed in the vagina: yes ?Prep solution(s): acetic acid ?? Procedure: ??Colposcopy with: colposcopy only ?Cervix visibility: fully visualized ?Ferric subsulfate solution applied: no ?Tampon inserted: no ?? Post-procedure: ??Patient tolerance of procedure: ??Patient tolerated the procedure well with no immediate complications ??Instructions and paperwork completed: yes ?Educational handouts given: no ?? Authorizing ProviderResult TypeResult StatusHa Baker DOIN CLINIC/BEDSIDE ORDERABLESFinal Result * (ABNORMAL) POCT urinalysis dipstick manually resulted (12/12/2024 9:30 AM EDT) ComponentValueRef RangeTest MethodAnalysis TimePerformed AtPathologist SignatureColor, UAYellowClarity, UAClearGlucose, UANegativeNegative - 2000(110) ++++ mg/dLBilirubin, UANegativeNegative - 4(70) +++ mg/dLKetones, UA PositiveNegative - 160(16) ++++ mg/dLSpec Grav, UA1.0201 - 1.03Blood, UA NegativeNegative - 50 John/mcLpH, UA6.05 - 9Protein, UATraceNegative - 2000(20) ++++ mg/dLUrobilinogen, UA2.00.2 - 12 mg/dLLeukocytes, UANegativeNegative - 500+++ Anderson/mcLNitrite, UANegativeNegative - PositiveSpecimen (Source) Anatomical Location / LateralityCollection Method / VolumeCollection Time Received PknbOwtcs10/16/2025 9:30 AM EDT Narrative Authorizing ProviderResult TypeResult Batool Baker DOPOINT OF CARE TEST ENTER/EDIT ORDERABLESFinal Result documented in this encounter Visit Diagnoses Diagnosis Colposcopy needed after cervical smear Second trimester ([facility]) state, incidental 22 weeks gestation of ([facility]) documented in this encounter
--- OUTSIDE RECORDS SUMMARY | 2024-12-13 07:30 | XMS_ITS | Encounter Summary ---
Author Organization [facility] Address [id number] [address] [place] [address] Care Team Providers Care Making Line Worker Name Role Phone No Pcp, No Pcp Primary Care Provider Unavailabl e Reason for Visit * Diagnostic Imaging (Routine) - Pending ReviewSpecialtyDiagnoses / Procedures Referred By ContactReferred To ContactMaternal and Medicine Diagnoses Screening, , for anatomic survey Procedures US MFM with or without consult US MFM with or without consult Kenji Plascencia MD [address], [address] [place] [address] Phone: tel: fax: Maternal- Medicine at [facility] [address] [place] [address] Phone: tel: fax: Referral IDStatusReasonStart DateExpiration DateVisits RequestedVisits [id number] Review/ Encounter Details DateTypeDepartmentCare Team (Latest Contact Info)Gbcgxeqtarj62/17/2025 7:30 AM EDT - 12/13/2024 11:59 PM EDTHospital Encounter [facility] - [facility]FM [facility] [address] [place] [id number] Screening, , for anatomic survey Discharge Disposition: Home Social History Tobacco UseTypesPacks/DayYears UsedDateSmoking Tobacco: NeverSmokeless Tobacco: NeverAlcohol UseStandard Drinks/WeekCommentsNot Currently0 (1 standard drink = 0.6 oz pure alcohol)ChildcareAnswerDate QougsrcsEoexxnlgcNljszaz04/12/2019 EmploymentAnswerDate GheziyszAxyszcususXwydfja08/12/2019Hunger ScreeningAnswer Date RecordedWithin the past 12 months we worried whether our food would run out before we got money to buy more.Never True12/13/2024Within the past 12 months the food we bought just didn't last and we didn't have money to get more.Never True12/13/2024Estimated Date of IlfqvvtmHswuqgdgPje99/13/2026Based on UltrasoundSex and Gender InformationValueDate RecordedSex Assigned at BirthNot on fileLegal GuvZtkhnq97/06/2015 11:49 AM EDTGender IdentityNot on fileSexual OrientationNot on filedocumented as of this encounter Medications at Time of Discharge MedicationSigDispense QuantityRefillsLast FilledStart DateEnd Date aspirin 81 mg Take 1 tablet (81 mg total) by mouth in the morning. bisacodyL (DULCOLAX, BISACODYL,) 10 mg suppository Insert 1 suppository (10 mg total) into the rectum in the morning. fluticasone propionate (FLONASE) 50 mcg/actuation nasal spray Administer 1 spray into each nostril in the morning. levothyroxine (SYNTHROID, LEVOTHROID) 200 MCG tablet Take 1.5 tablets (300 mcg total) by mouth in the morning. ondansetron (ZOFRAN) 4 mg tablet Take 1 tablet (4 mg total) by mouth every 8 (eight) hours as needed for nausea or vomiting. 25/iron fum/folic/dha (-1 ORAL) Take by mouth.documented as of this encounter Plan of Treatment DateTypeDepartmentCare Team (Latest Contact Info)Dvcvywhpark01/25/2025 2:15 PM ESTAppointment [facility] [address] [place] [id number] documented as of this encounter Procedures Procedure NamePriorityDate/TimeAssociated DiagnosisCommentsUS MFM COMPREHENSIVE ANATOMIC UPQEPCFlelcpn02/17/2025 8:50 AM EDT Screening, , for anatomic survey documented in this encounter Results * [facility] COMPREHENSIVE ANATOMIC SURVEY (12/13/2024 8:50 AM EDT)Anatomical RegionLateralityModalityOB-GYNUltrasoundSpecimen (Source)Anatomical Location / LateralityCollection Method / VolumeCollection TimeReceived Time12/13/2024 7:51 AM EDT Narrative 12/13/2024 10:23 AM EDT NAME: ??LUIS BEAULIEU : 1995 SEX: F Accession Number: [id number] ORDERING PHYSICIAN: KENJI PLASCENCIA REFERRING PHYSICIAN: IVY RUVALCABA Coding Procedures ? 30851: Ultrasound, uterus, real time with image documentation, and maternal evaluation ? plus detailed anatomic examination, transabdominal approach;single or first gestation ? [address]5431: Ultrasound, uterus, real time with image documentation, transvaginal Indication Screening for Anatomic Survey, Screening for cervical length, Obesity in , Hypothyroidism,History of gestational hypertension, History of prior with gestational diabetes. History OB History ? 4. Para 3 ? T3 Current Cell free DNA ?low risk analysis Maternal Assessment Physical Exam ??Height 163 cm, 5 ft 4 in. Initial weight 108 kg, 237 lb. Initial BMI 40.68 kg/m?? Method Transabdominal and transvaginal ultrasound examination. View: Suboptimal view: limited by maternal body habitus. Medical Grease Man Grease Man declined Wolfe . Number of fetuses: 1 Dating LMP on: ?06/26/2024 GA by LMP ?24 w + 2 d GARRETT by LMP: ?04/02/2025 Previous Ultrasound on: ?09/05/2024 Type of prior assessment: ?GA GA at prior assessment date ?8 w + 6 d GA by previous U/S ? 23 w + 0 d GARRETT by previous Ultrasound: ?04/11/2025 Ultrasound examination on: ? 12/13/2024 GA by U/S based upon: ??AC, BPD, Femur, HC GA by U/S ?22 w + 6 d GARRETT by U/S: ?04/12/2025 Assigned: ?based on ultrasound (GA), selected on 12/13/2024 Assigned GA (weeks days) ? 23 w + 0 d Assigned GARRETT: ??04/11/2025 General Evaluation Cardiac activity Present. FHR 153 bpm. Presentation: variable Placenta: Placental site: posterior, away from cervical os Umbilical cord: Cord vessels: 3 vessel cord. Insertion site: normal insertion Amniotic fluid: Amount of AF: normal amount. MVP 4.7 cm Biometry Standard BPD ?55.3 mm 22w 6d 40% Hadlock OFD ?75.5 mm 24w 6d 94% Jocelyn HC ? 209.9 mm ?23w 0d 38% Hadlock Cerebellum tr ??24.6 mm 22w 3d 66% Hill AC ? 188.8 mm ?23w 4d 63% Hadlock Femur ??37.9 mm 22w 1d 14% Hadlock Humerus ?37.3 mm 23w 0d 41% Jocelyn HC / AC ?1.11 EFW ?551 g ?41% Hadlock EFW (lb) ? 1 lb EFW (oz) ? 3 oz EFW by: ?Hadlock (AHD-QB-MN-FL) Extended Tibia ??36.4 mm 23w 5d 72% Jocelyn Marine Tower Operator ? 4.1 mm CM ? 6.0 mm ?? 60% Nicolaides Head / Face / Neck Cephalic index 0.73 ? 6% Nicolaides Nasal bone: ?not examined Extremities / Bony Struc FL / BPD ? 0.69 FL / HC ?0.18 FL / AC ?0.20 Other Structures FHR ?153 bpm Anatomy The following structures appear normal: Head/Neck: Cranium. Lateral ventricles. Choroid plexus. Midline falx. Cavum septi pellucidi. Cerebellum. Cisterna ? magna. Parenchyma. Vermis. ? Neck. Face: Maxilla. Mandible. Orbits. Heart/Thorax: Situs. Aortic arch view. Bicaval view. Cardiac position. Cardiac axis. Cardiac size. Cardiac rhythm. ? Right lung. Left lung. Abdomen: Abdom. wall. Cord insertion. Stomach. Kidneys. Bladder. Small bowel. Large bowel. Right renal artery. ? Left renal artery. Genitals. Spine: Cervical spine. Thoracic spine. Lumbar spine. Sacral spine. Extremities/Skeleton: Right upper arm. Right forearm. Left upper arm. Left forearm. Left hand. Right upper leg. Right lower ? leg. Right foot. Left upper leg. Left lower leg. The following structures could not be adequately visualized: Face ?? Profile. Heart / Thorax 4-chamber view. 3-vessel view. ? Diaphragm. Extremities / ??Right hand. Skeleton The following structures could not be examined: Face ?? Lips. Nose. Nasal bone. Heart / Thorax RVOT view. LVOT view. 5-ebblfd-bizgxss view. Ductal arch view. Interventricular septum. Great vessels. Extremities / ??Left foot. Skeleton Maternal Structures Uterus Visualized Cervix Visualized ? Cervical length 3.93 cm Right Ovary ?Not visualized Left Ovary ? Not visualized Cul de Sac ? Visualized Impression Single live intrauterine consistent with 23w 0d with an GARRETT of 04/11/2025. Normal growth. EFW measures at the 41%, AC measures at the 63%. Transvaginal cervical length measures 3.93 cm. Amniotic fluid MVP measures 4.7 cm. Recommendations Please see M documentation from today. Subsequent follow up or other follow up as clinically determined by primary OB provider unless otherwise specified by MFM. Results forwarded to ordering provider so they can follow up with the patient as necessary. Procedure Note Kenji Plascencia MD - 12/13/2024 NAME: LUIS BEAULIEU : 1995 SEX: F Accession Number: [id number] ORDERING PHYSICIAN: KENJI PLASCENCIA REFERRING PHYSICIAN: IVY RUVALCABA Coding Procedures 16463: Ultrasound, uterus, real time with image documentation, and maternal evaluation plus detailed anatomic examination, transabdominalapproach;single or first gestation 81877: Ultrasound, uterus, real time with imagedocumentation, transvaginal Indication Screening for Anatomic Survey, Screening for cervical length, Obesity in , Hypothyroidism, History of gestational hypertension, History of prior with gestational diabetes. History OB History 4. Para 3 T3 Current Cell free DNA low risk analysis Maternal Assessment Physical Exam Height 163 cm, 5 ft 4 in. Initial weight 108 kg, 237 lb.Initial BMI 40.68 kg/m?? Method Transabdominal and transvaginal ultrasound examination. View: Suboptimalview: limited by maternal body habitus. Medical Grease Man Grease Man declined Wolfe . Number of fetuses: 1 Dating LMP on: 06/26/2024 GA by LMP 24 w + 2 d GARRETT by LMP: 04/02/2025 Previous Ultrasound on: 09/05/2024 Type of prior assessment: GA GA at prior assessment date 8 w + 6 d GA by previous U/S 23 w + 0 d GARRETT by previous Ultrasound: 04/11/2025 Ultrasound examination on: 12/13/2024 GA by U/S based upon: AC, BPD, Femur, HC GA by U/S 22 w + 6 d GARRETT by U/S: 04/12/2025 Assigned: based on ultrasound (GA), selected on 12/13/2024 Assigned GA (weeks days) 23 w + 0 d Assigned GARRETT: 04/11/2025 General Evaluation Cardiac activity Present. FHR 153 bpm. Presentation: variable Placenta: Placental site: posterior, away from cervical os Umbilical cord: Cord vessels: 3 vessel cord. Insertion site: normalinsertion Amniotic fluid: Amount of AF: normal amount. MVP 4.7 cm Biometry Standard BPD 55.3 mm 22w 6d 40% Hadlock OFD 75.5 mm 24w 6d 94% Jocelyn HC 209.9 mm 23w 0d 38% Hadlock Cerebellum tr 24.6 mm 22w 3d 66% Hill AC 188.8 mm 23w 4d 63% Hadlock Femur 37.9 mm 22w 1d 14% Hadlock Humerus 37.3 mm 23w 0d 41% Jocelyn HC / AC 1.11 EFW 551 g 41% Hadlock EFW (lb) 1 lb EFW (oz) 3 oz EFW by: Hadlock (YEX-FO-GV-FL) Extended Tibia 36.4 mm 23w 5d 72% Jocelyn Marine Tower Operator 4.1 mm CM 6.0 mm 60% Nicolaides Head / Face / Neck Cephalic index 0.73 6% Nicolaides Nasal bone: not examined Extremities / Bony Struc FL / BPD 0.69 FL / HC 0.18 FL / AC 0.20 Other Structures FHR 153 bpm Anatomy The following structures appear normal: Head/Neck: Cranium. Lateral ventricles. Choroid plexus. Midline falx.Cavum septi pellucidi. Cerebellum. Cisterna magna. Parenchyma. Vermis. Neck. Face: Maxilla. Mandible. Orbits. Heart/Thorax: Situs. Aortic arch view. Bicaval view. Cardiac position.Cardiac axis. Cardiac size. Cardiac rhythm. Right lung. Left lung. Abdomen: Abdom. wall. Cord insertion. Stomach. Kidneys. Bladder. Smallbowel. Large bowel. Right renal artery. Left renal artery. Genitals. Spine: Cervical spine. Thoracic spine. Lumbar spine. Sacral spine. Extremities/Skeleton: Right upper arm. Right forearm. Left upper arm. Left forearm. Left hand. Right upper leg. Right lower leg. Right foot. Left upper leg. Left lower leg. The following structures could not be adequately visualized: Face Profile. Heart / Thorax 4-chamber view. 3-vessel view. Diaphragm. Extremities / Right hand. Skeleton The following structures could not be examined: Face Lips. Nose. Nasal bone. Heart / Thorax RVOT view. LVOT view. 9-dsjbsm-lgwcdgx view. Ductal archview. Interventricular septum. Great vessels. Extremities / Left foot. Skeleton Maternal Structures Uterus Visualized Cervix Visualized Cervical length 3.93 cm Right Ovary Not visualized Left Ovary Not visualized Cul de Sac Visualized Impression Single live intrauterine consistent with 23w 0d with an GARRETT of 04/11/2025. Normal growth. EFW measures at the 41%, AC measures at the 63%. Transvaginal cervical length measures 3.93 cm. Amniotic fluid MVP measures 4.7 cm. Recommendations Please see MFM documentation from today. Subsequent follow up or other follow up as clinically determined byprimary OB provider unless otherwise specified by MFM. Results forwarded to ordering provider so they can follow up with thepatient as necessary. Authorizing ProviderResult TypeResult StatusKenji Plascencia MDIMG US ORDERABLES Final Result documented in this encounter Visit Diagnoses Diagnosis Screening, , for anatomic survey Encounter for anatomic survey documented in this encounter Care Teams Team MemberRelationshipSpecialtyStart DateEnd Date No Pcp, [place] [address] PCP - GeneralFawily Medicine10/23/24documented as of this encounter
--- OUTSIDE RECORDS SUMMARY | 2024-12-13 08:45 | XMS_ITS | Encounter Summary ---
Author Organization [employer] [facility] tem Address [facility] [place]-[id number] [address] 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) Social History Tobacco UseTypesPacks/DayYears UsedDateSmoking Tobacco: NeverSmokeless Tobacco: Never Tobacco Cessation:Counseling Given: Not Answered Alcohol UseStandard Drinks/WeekCommentsNot Currently0 (1 standard drink = 0.6 oz pure alcohol)ChildcareAnswerDate GxyzaeqeBruiwpnsuVfbikjm53/12/2019Employment AnswerDate TdeorhixIyrslozqxeHhowsts58/12/2019Hunger ScreeningAnswerDate RecordedWithin the past 12 months we worried whether our food would run out before we got money to buy more.Never True12/13/2024Within the past 12 months the food we bought just didn't last and we didn't have money to get more.Never True12/13/2024Estimated Date of AdcpckqaLclnongyEiu20/13/2026Based on UltrasoundSex and Gender InformationValueDate RecordedSex Assigned at BirthNot on fileLegal NnnEqzoqe15/06/2015 11:49 AM EDTGender IdentityNot on fileSexual OrientationNot on filedocumented as of this encounter Last Filed Vital Signs Vital SignReadingTime TakenCommentsBlood Ckxsmbze825/7312/13/2024 8:03 AM EDT Lppkh395612/13/2024 8:03 AM EDTTemperature--Respiratory Rate--Oxygen Saturation-- Inhaled Oxygen Concentration--Rsgflm119.8 kg (235 lb 6.4 oz)12/13/2024 8:03 AM NSFSfsokb816.6 cm (5' 4.02 )12/13/2024 8:03 AM EDTBody Mass Index40.391 8:03 AM EDTdocumented in this encounter Progress Notes * Kenji Plascencia MD - 12/13/2024 8:45 AM EDT REASON FOR CONSULTATION: Maternal congenital hypothyroidism. HISTORY OF PRESENT ILLNESS: Raya Mathur is a pleasant 29 y.o. G 4 P3 003. at 23w0d due on Estimated Date of Delivery: 04/11/25 . Patient was seen today due to the following 1. Maternal congenital hypothyroidism currently 300 mcg of Synthroid. 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 Previous 3 pregnancies uncomplicated. Currently the patient has no complaints. The patient denies nausea, vomiting, abdominal pain, vaginal bleeding, SOB or chest pain. Patient's PMH/PSH,SH,PSYCH Hx, MEDs, ALLERGIES, and ROS were all reviewed and updated in the appropriate sections. 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 Past Medical History: Diagnosis Date Anemia Gestational diabetes Headaches, cluster Hypothyroid PAST OBSTETRICAL HISTORY: OB History 4 Para 3 Term 3 AB Living 3 SAB IAB Ectopic Multiple Live Births 3 SURGICAL HISTORY: Past Surgical History: Procedure Laterality Date ORIF Right HAND WISDOM TOOTH EXTRACTION ALLERGIES: Allergies Allergen Reactions Pediazole [Erythromycin-Sulfisoxazole] Rash Sulfa (Sulfonamide Antibiotics) Rash Sulfamethoxazole Rash CURRENT MEDICATIONS: Current Outpatient Medications: bisacodyL (DULCOLAX, BISACODYL,) 10 mg suppository, Insert 1 suppository (10 mg total) into the rectum in the morning., Disp: , Rfl: fluticasone propionate (FLONASE) 50 mcg/actuation nasal spray, Administer 1 spray into each nostrilin the morning., Disp: , Rfl: levothyroxine (SYNTHROID, LEVOTHROID) 200 MCG tablet, Take 1.5 tablets (300 mcg total) by mouth in the morning. (Patient taking differently: Take 1.5 tablets (300 mcg total) by mouth in the morning. 325 mcg.), Disp: , Rfl: ondansetron (ZOFRAN) 4 mg tablet, Take 1 tablet (4 mg total) by mouth every 8 (eight) hours as needed for nausea or vomiting., Disp: , Rfl: 25/iron fum/folic/dha (-1 ORAL), Take by mouth., Disp: , Rfl: aspirin 81 mg, Take 1 tablet (81 mg total) by mouth in the morning. (Patient not taking: Reported on 12/13/2024), Disp: , Rfl: FAMILY/GENETIC HISTORY: No family history of VTE, cardiac defects and mental retardation . RECENT HOSPITALIZATION: none I did review all the labs results available in addition to labs which were ordered by the primary care physician, and the other consultants, we search on [employer] and all the available care everywhere epic I did review all the imaging studies of the patient available on EMR, ordered by the primary care physician and the other retail sales vitamin consultant HABITS: Patient activity no restrictions, diet no restrictions REVIEW OF SYSTEM: Head and Neck: Negative for any dizziness and headaches. Cardiovascular and Respiratory System: Denies any chest pain, shortness of breath, and coughing. Abdominal and System: Denies any abdominal pain, nausea, vomiting, vaginal bleeding, and vaginal discharge PHYSICAL EXAMINATION: BP 112/73 Pulse 83 Ht 162.6 cm (5' 4.02 ) Wt 106.8 kg (235 lb 6.4 oz) LMP 06/26/2024 BMI 40.39 kg/m?? . Gravid abdomen, Respirations not labored. Well oriented time place person, normal gait MEDICAL DECISION MAKING DISCUSSION: I explained there is a 1% incidence of hypothyroidism in the general population. The thyroid is important for normal growth and maintenance of lipid and carbohydrate metabolism. We discussed the pathophysiology of thyroid regulation including stimulation of the thyroid from TSH from the anterior pituitary. In , the physiology changes somewhat due to increased amounts of hormones such as estrogen which blocks the degradation of thyroid binding globulin and human chorionic gonadotropin which stimulates thyroid hormone secretion and suppresses TSH. Throughout , there is a 30-50% increase in the requirement of throxine. In the fetus, the small amount of thyroxine that crosses the placenta provides thyroid hormone until 10-12 weeks. After this time, the fetus begins to synthesis thyroid hormone. We also discussed hypothyroidism often occurs due to Alfredo???s thyroiditis. If this occurs, there can be antibodies circulating in the patient which cross the placenta and act on the fetus. The fetus can then develop a goiter. Although this is rare, but can be found if the maternal circulating antibodies are elevated. Some of the complications in associated with untreated or partially treated hypothyroidism are preeclampsia, abruption, and low weight. When the maternal free T4 is verylow in , the is at risk for impaired psychomotor function and a significantly lowerIQ. Therefore, recommendations are to maintain serum TSH 0.5-2.0 microIU/ml and Free T4 in the upper third of normal range. Measure TSH and Free T4 every 4 weeks and patient should go back to pre- dosing in the PP period. RECOMMENDATION: 1. Normal but limited targeted anatomy seen on today's ultrasound. 2. Follow-up in 4 weeks for completion of targeted anatomy 3. Continue serial growth ultrasounds every 4 weeks after 24 weeks gestation OB office. 4. Initiate testing form once a week NST and BLANCHE at 32 weeks gestation at her local hospital. 5. Term spontaneous vaginal delivery at her local hospital is anticipated with C section reserve for routine obstetrical indications. 6. Continue checking thyroid function tests including TSH and free T4 through her endocrinology office which is already scheduled. Endocrinology will be managing her hypothyroidism. DISPOSITION: At this point the patient is in complete care of her manager reliability. Patient does have ultrasound scheduled with us Thank you for allowing me to participate in Raya Mathur . If there any questions please do not hesitate to contact us. Sincerely, KENJI PLASCENCIA MD * Eun Mcgrath RN - 12/13/2024 8:45 AM EDT Headache/epigastric pain/blurry vision/swelling? No Cramping/contractions? No Spotting/vaginal bleeding? No Loss or gush of fluid like your water may have broken? No Do you have cats at home? No Do you change the litter box (reason: risk of toxoplasmosis)? N/A Genetic testing done this here or other office? Yes Have you been seen here at [facility] in a previous ? Yes Recent ER visits or hospitalizations? No Bring blood sugar log or meter with you today? (Please bring them with you for every visit at [facility]) N/A Flu vaccine (Dec-April)? N/A Any concerns that you would like me to mention to the provider today? 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
[2024-12-22 06:53] VITALS: BP 137/85; PULSE 87; TEMP 36.9; O2SAT 98; BMI 39.5
--- OUTSIDE RECORDS SUMMARY | 2024-12-22 06:55 | XMS_ITS | Clinical Summary ---
Author Organization [employer] tem Address [facility] [place]-[id number] [address] [place] [address] Care Team Providers Care Mail Handler Sorter Name Role Phone No Pcp, No Pcp Primary Care Provider Unavailabl e Allergies Active AllergyReactionsCriticalityNoted DateCommentsErythromycin-Sulfisoxazole GyicZyy9708/18/2022Sulfa (Sulfonamide Antibiotics)ZreiYra1408/18/2022 FttjvsfhnvdusdynPsulBoe80/17/2025 Medications MedicationSigDispense QuantityRefillsLast FilledStart DateEnd DateStatus 25/iron fum/folic/dha (-1 ORAL) Take by mouth.Active levothyroxine (SYNTHROID, LEVOTHROID) 200 MCG tablet Take 1.5 tablets (300 mcg total) by mouth in the morning.Active aspirin 81 mg Take 1 tablet (81 mg total) by mouth in the morning.Active bisacodyL (DULCOLAX, BISACODYL,) 10 mg suppository Insert 1 suppository (10 mg total) into the rectum in the morning.Active fluticasone propionate (FLONASE) 50 mcg/actuation nasal spray Administer 1 spray into each nostril in the morning.Active ondansetron (ZOFRAN) 4 mg tablet Take 1 tablet (4 mg total) by mouth every 8 (eight) hours as needed for nausea or vomiting.Active polyethylene glycol (GLYCOLAX) 17 gram packet Take 17 g by mouth in the morning for 90 days. 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) 12/13/2024 7:30 AM EDT - 12/13/2024 11:59 PM EDTHospital Encounter [facility] Imaging [address] [facility] [place] [phone] Screening, , for anatomic survey Discharge Disposition: Home12/13/2024Orders Only Maternal- Medicine at [facility] [address] [phone] Eun Mcgrath RN Hypothyroidism affecting in second trimester (Primary Dx)12/13/2024 Utvyvc6312/12/20243641Npxhji29/17/2025bstract Maternal- Medicine at [facility] [address] [place] [phone] Fuad Plascencia MD 10/23/2024 2:33 PM EDT - 10/23/2024 3:44 PM EDTEmergency [facility] - Emergency [address] [place] [phone] Visit for wound check (Primary Dx) Discharge Disposition: Home10/23/2024Travelfrom Last 3 Months Family History Medical HistoryRelationNameCommentsHypothyroidismFatherDiabetesMaternal GrandfatherLiver diseaseMaternal GrandfatherDiabetesPaternal GrandfatherLymphoma Paternal GrandfatherRelationNameStatusCommentsFatherAliveMaternal Grandfather DeceasedMotherAlivePaternal Grandfather Social History Tobacco UseTypesPacks/DayYears UsedDateSmoking Tobacco: NeverSmokeless Tobacco: Never Tobacco Cessation:Counseling Given: Not Answered Alcohol UseStandard Drinks/WeekCommentsNot Currently0 (1 standard drink = 0.6 oz pure alcohol)ChildcareAnswerDate FjjmfpxyUjhrvniztGihmnay58/12/2019Employment AnswerDate FkvdomwtUgiscwpjhnFgrjwhc50/12/2019Hunger ScreeningAnswerDate RecordedWithin the past 12 months we worried whether our food would run out before we got money to buy more.Never True12/13/2024Within the past 12 months the food we bought just didn't last and we didn't have money to get more.Never True12/13/2024Estimated Date of IbklshzbJhlebquqUxi53/13/2026Based on UltrasoundSex and Gender InformationValueDate RecordedSex Assigned at BirthNot on fileLegal NdbWmnfhk53/06/2015 11:49 AM EDTGender IdentityNot on fileSexual OrientationNot on file Last Filed Vital Signs Vital SignReadingTime TakenCommentsBlood Gmvvmpys464/7312/13/2024 8:03 AM EDT Yyjmx377312/13/2024 8:03 AM PUZHleexfpxtxi49 ??C (98.6 ??F)10/23/2024 1:18 PM EDT Respiratory Irkg831410/23/2024 2:45 PM EDTOxygen Tcycsmgaly12%10/23/2024 2:45 PM EDTInhaled Oxygen Concentration--Dclaaa663.8 kg (235 lb 6.4 oz)12/13/2024 8:03 AM IVUUnsmiq699.6 cm (5' 4.02 )12/13/2024 8:03 AM EDTBody Mass Index40.39 12/13/2024 8:03 AM EDT Plan of Treatment DateTypeDepartmentCare Team (Latest Contact Info)Xcxlwqggfwm45/25/2025 2:15 PM ESTAppointment [facility] - Ultrasound [address] [place] [address] Health MaintenanceDue DateLast DoneCommentsDepression Xelillqtf18/01/2006dult BMI Follow Up Plan2011DTaP,Tdap and Td Vaccines (2 - Td or Tdap)08/05/2015 08/04/2005Influenza Zmugrti1010/28/2024dult BMI Dsqvvxvqf57 Tobacco Qexvfvveu62Pap Smear Medical Devices Not on file Procedures Procedure NamePriorityDate/TimeAssociated DiagnosisCommentsUS [facility] COMPRE[facility]ENSIVE ANATOMIC GVMCFEUlkdflm06/17/2025 8:50 AM EDT Screening, , for anatomic survey from Last 3 Months Results * US [facility] COMPREHENSIVE ANATOMIC SURVEY (12/13/2024 8:50 AM EDT)Anatomical RegionLateralityModalityOB-GYNUltrasoundSpecimen (Source)Anatomical Location / LateralityCollection Method / VolumeCollection TimeReceived Time12/13/2024 7:51 AM EDT Narrative 12/13/2024 10:23 AM EDT NAME: ??LUIS BEAULIEU : 1995 SEX: F Accession Number: [id number] ORDERING PHYSICIAN: FUAD PLASCENCIA REFERRING PHYSICIAN: IVY RUVALCABA Coding Procedures ? 08837: Ultrasound, uterus, real time with image documentation, and maternal evaluation ? plus detailed anatomic examination, transabdominal approach;single or first gestation ? 94983: Ultrasound, uterus, real time with image documentation, [...] view: limited by maternal body habitus. Medical Bicycle Assembler Bicycle Assembler declined Wolfe . Number of fetuses: 1 [...] (oz) ? 3 oz EFW by: ?Hadlock (UAC-VU-OQ-FL) Extended Tibia ??36.4 mm 23w 5d 72% [employer] ? 4.1 mm CM ? 6.0 mm [...] Heart / Thorax RVOT view. LVOT view. 0-mprqvb-avxkocv view. Ductal arch view. Interventricular septum. Great [...] MVP measures 4.7 cm. Recommendations Please see [facility] documentation from today. Subsequent follow up or other follow up as clinically determined by primary OB provider unless otherwise specified by MF. Results forwarded to ordering provider so they can follow up with the patient as necessary. Procedure Note Fuad Plascencia MD - 12/13/2024 NAME: LUIS BEAULIEU : 1995 SEX: F Accession Number: [id number] ORDERING PHYSICIAN: FUAD PLASCENCIA REFERRING PHYSICIAN: IVY RUVALCABA Coding Procedures 01675: Ultrasound, uterus, real time with image documentation, and maternal evaluation plus detailed anatomic examination, transabdominalapproach;single or first gestation 80155: Ultrasound, uterus, real time with imagedocumentation, transvaginal [...] Suboptimalview: limited by maternal body habitus. Medical Bicycle Assembler Bicycle Assembler declined Wolfe . Number of fetuses: 1 [...] EFW (oz) 3 oz EFW by: [place] (NMQ-EF-XE-FL) Extended Tibia 36.4 mm 23w 5d 72% [employer] 4.1 mm CM 6.0 mm 60% Nicolaides [...] Heart / Thorax RVOT view. LVOT view. 7-zgukjs-xakxvfa view. Ductal archview. Interventricular septum. Great vessels. [...] with thepatient as necessary. Authorizing ProviderResult TypeResult StatusFuad Plascencia MDIMG US ORDERABLES Final Result from Last 3 Months Insurance Care Teams Team MemberRelationshipSpecialtyStart DateEnd Date No Pcp, [place] [address] [facility]10/[facility]/24
--- OUTSIDE RECORDS SUMMARY | 2024-12-22 06:55 | XMS_ITS ---
Author Organization [employer] Source Produ ction (ClinicalSummary Clone) Address Unknown Care Team Providers Care Lightning Rod Erector Name Role Phone Unavailable Primary Care Physician Unavailab le Results * [UNITY] ANEUPLOIDY NIPT Performed by: [employer] Component Value Range Date Fraction 5.3% 09/13/2024 06:30 am UTCRh(D) NIPTRhD BWGLWTHE61/18/2025 06:30 am UTCSex Chromosome AneuploidyNOT TAGQYKMF00/18/2025 06:30 am UTCMonosomy XLOW RISK <1 in , 06:30 am UTCTrisomy 13LOW RISK <1 in , 06:30 am UTCTrisomy 18LOW RISK <1 in , 06:30 am UTCTrisomy 21LOW RISK <1 in , 06:30 am UTCFetal AlcTCQKUX75/18/2025 06:30 am UTCPregnancy KjhqltqjnTHQWXQVPS05/18/2025 06:30 am UTCFor detailed report, see PDFSee PDF 09/13/2024 06:30 am UTC09/13/2024 06:30 am UTC Social History Observation Value Start Date End Date
--- OUTSIDE RECORDS SUMMARY | 2024-12-22 06:55 | XMS_ITS | Encounter Summary ---
Author Organization [facility] Address [address] [facility] [place] [address] Care Team Providers Care Marketing Outreach Coordinator Name Role Phone Unavailable Primary Care Provider Unavailabl e Encounter Details DateTypeDepartmentCare Team (Latest Contact Info)Gdmisxrvxja94/17/2025bstract SUNITA ANTHONY [address] [place] [address] Ha Baker DO [facility] [address] Karina Aguirre, [facility]11 Social History Tobacco UseTypesPacks/DayYears UsedDateSmoking Tobacco: NeverSmokeless Tobacco: NeverAlcohol UseStandard Drinks/WeekCommentsYes2 (1 standard drink = 0.6 oz pure alcohol)Alcohol: 1 or 2 drinks, 2 to 4 times a month; Caffeine: 1 can /weekPHQ-2 AnswerDate RecordedPatient Health Questionnaire-2 Tpmlh170 Estimated Date of LquoyuyhUcfztsnxTur14/13/2026Based on UltrasoundSex and Gender InformationValueDate RecordedSex Assigned at ScbqsZnzfcp81/30/2023 8:23 AM EDT Legal PimSrhecw40/15/2023 7:11 PM EDTGender BkpuccjaYyzwpy99/30/2023 8:23 AM EDT Sexual DkxbfoxijstBrdogvfb86/30/2023 8:23 AM EDTdocumented as of this encounter Plan of Treatment DateTypeDepartmentCare Team (Latest Contact Info)Dttppgvrqeo77/13/2025 10:50 AM ESTRoutine [facility] ANTHONY [address] [employer] [address] Karla Matthews PA [address] [place] [address] [place] [address] documented as of this encounter Visit Diagnoses Not on filedocumented in this encounter
--- OUTSIDE RECORDS SUMMARY | 2024-12-22 06:55 | XMS_ITS | Encounter Summary ---
Author Organization [employer] tem Address [id number] [address] [place] [address] Care Team Providers Care Managed Care Director Name Role Phone No Pcp, No Pcp Primary Care Provider Unavailabl e Reason for Referral * Diagnostic Imaging (Routine) - Pending ReviewSpecialtyDiagnoses / Procedures Referred By ContactReferred To ContactMaternal and Medicine Diagnoses Hypothyroidism affecting in second trimester Procedures [facility] with or without consult Fuad Mao MD [address] [facility], [address] [place] [address] Phone: tel: fax: Maternal- Medicine at [place] [address] [place] [address] Phone: tel: fax: Referral IDStatusReasonStart DateExpiration DateVisits RequestedVisits [id number] Encounter Details DateTypeDepartmentCare Team (Latest Contact Info)Jdmktztwldz23/17/2025Orders Only Maternal- Medicine at [place] [address] [place] [phone] Eun Mcgrath, RN Hypothyroidism affecting in second trimester (Primary Dx) Social History Tobacco UseTypesPacks/DayYears UsedDateSmoking Tobacco: NeverSmokeless Tobacco: NeverAlcohol UseStandard Drinks/WeekCommentsNot Currently0 (1 standard drink = 0.6 oz pure alcohol)ChildcareAnswerDate LkvtfywhTlflyfmzgVcjjetm59/12/2019 EmploymentAnswerDate ZisfxewaKurnoftvmaQoiaxuq74/12/2019Hunger ScreeningAnswer Date RecordedWithin the past 12 months we worried whether our food would run out before we got money to buy more.Never True12/13/2024Within the past 12 months the food we bought just didn't last and we didn't have money to get more.Never True12/13/2024Estimated Date of NstafdokMnewiqzhXoj41/13/2026Based on UltrasoundSex and Gender InformationValueDate RecordedSex Assigned at BirthNot on fileLegal MkfSozlho68/06/2015 11:49 AM EDTGender IdentityNot on fileSexual OrientationNot on filedocumented as of this encounter Plan of Treatment DateTypeDepartmentCare Team (Latest Contact Info)Wrlbqohotry06/25/2025 2:15 PM ESTAppointment [facility] - [facility]ound [address] [place] [address] NameTypePriorityAssociated DiagnosesOrder ScheduleUS MFM with or without consult ImagingRoutine Hypothyroidism affecting in second trimester Expected: 12/13/2025 (Approximate), Expires: 12/13/2025documented as of this encounter Visit Diagnoses Diagnosis Hypothyroidism affecting in second trimester- Primary documented in this encounter Care Teams Team MemberRelationshipSpecialtyStart DateEnd Date No Pcp, No Pcp [place]W [place] [address] [facility]CP [facility]Gen[facility] Centerly Medicine10/23/24documented as of this encounter
--- OUTSIDE RECORDS SUMMARY | 2024-12-22 06:55 | XMS_ITS | Encounter Summary ---
Author Organization [facility] tem Address [facility] [place]-[id number] [address] [place] [address] Care Team Providers Care Corrosion Control Technician Name Role Phone No Pcp, No Pcp Primary Care Provider Unavailabl e Encounter Details DateTypeDepartmentCare Team (Latest Contact Info)Giszsdcchis66/17/2025Travel Social History Tobacco UseTypesPacks/DayYears UsedDateSmoking Tobacco: NeverSmokeless Tobacco: NeverAlcohol UseStandard Drinks/WeekCommentsNot Currently0 (1 standard drink = 0.6 oz pure alcohol)ChildcareAnswerDate PmllwhezVhbolagrqPcmzbwm61/12/2019 EmploymentAnswerDate BvfvcffuJmzpgytnanPehlypc61/12/2019Hunger ScreeningAnswer Date RecordedWithin the past 12 months we worried whether our food would run out before we got money to buy more.Never True12/13/2024Within the past 12 months the food we bought just didn't last and we didn't have money to get more.Never True12/13/2024Estimated Date of UpnqqscuEzdlwebkNmo55/13/2026Based on UltrasoundSex and Gender InformationValueDate RecordedSex Assigned at BirthNot on fileLegal DmrRpjlnt23/06/2015 11:49 AM EDTGender IdentityNot on fileSexual OrientationNot on filedocumented as of this encounter Plan of Treatment DateTypeDepartmentCare Team (Latest Contact Info)Vfdcsjqfxsv16/25/2025 2:15 PM ESTAppointment [facility] [address] [place] [address] documented as of this encounter Visit Diagnoses Not on filedocumented in this encounter Care Teams Team MemberRelationshipSpecialtyStart DateEnd Date No Pcp, [place] [address] PCP - GeneralFamily Medicine10/23/24documented as of this encounter
--- OUTSIDE RECORDS SUMMARY | 2024-12-22 06:55 | XMS_ITS | Encounter Summary ---
Author Organization [facility] Address [address] [place] [address] Care Team Providers Care Truck Switcher Name Role Phone Unavailable Primary Care Provider Unavailabl e Encounter Details DateTypeDepartmentCare Team (Latest Contact Info)Rihfthrkjwg97/17/2025Patient Outreach [facility] [address] [place] [phone] Karla Campa LPN [address] [place] [address] Social History Tobacco UseTypesPacks/DayYears UsedDateSmoking Tobacco: NeverSmokeless Tobacco: NeverAlcohol UseStandard Drinks/WeekCommentsYes2 (1 standard drink = 0.6 oz pure alcohol)Alcohol: 1 or 2 drinks, 2 to 4 times a month; Caffeine: 1 can /weekPHQ-2 AnswerDate RecordedPatient Health Questionnaire-2 Lexxe379 Estimated Date of SxnxgttcEnkrlcvwNus01/13/2026ased on UltrasoundSex and Gender InformationValueDate RecordedSex Assigned at TqazwYbjzty59/30/2023 8:23 AM EDT Legal JrsAqjlkz95/15/2023 7:11 PM EDTGender QlorodgeFtbuvx76/30/2023 8:23 AM EDT Sexual HmwuwhypzqjAbvgdimd28/30/2023 8:23 AM EDTdocumented as of this encounter Progress Notes * Karla Campa LPN - 12/13/2024 9:46 AM EDT Monthly Outreach. Call to pt TESS PerezM. MyChart communication sent. documented in this encounter Plan of Treatment DateTypeDepartmentCare Team (Latest Contact Info)Zjfbnqwvmxb40/13/2025 10:50 AM ESTRoutine [facility] ANTHONY [address] [address] [facility] [place] [phone] Karla Matthews PA [address] [place], [place] [phone] documented as of this encounter Visit Diagnoses Not on filedocumented in this encounter
--- OUTSIDE RECORDS SUMMARY | 2024-12-22 06:55 | XMS_ITS | Encounter Summary ---
Author Organization [facility] Address [address] [facility] [place] [address] Care Team Providers Care Contract Agent Name Role Phone Unavailable Primary Care Provider Unavailabl e Encounter Details DateTypeDepartmentCare Team (Latest Contact Info)Nwkracytdwj87/17/2025External Result Encounter [facility] [address] [facility] [place] [address] Ivy Baker DO [address] [facility] [address] Karina Aguirre, [facility] Social History Tobacco UseTypesPacks/DayYears UsedDateSmoking Tobacco: NeverSmokeless Tobacco: NeverAlcohol UseStandard Drinks/WeekCommentsYes2 (1 standard drink = 0.6 oz pure alcohol)Alcohol: 1 or 2 drinks, 2 to 4 times a month; Caffeine: 1 can /weekPHQ-2 AnswerDate RecordedPatient Health Questionnaire-2 Ndgfb566 Estimated Date of TzhzsweuMwnllveoCcq42/13/2026Based on UltrasoundSex and Gender InformationValueDate RecordedSex Assigned at EywtcKxdlto81/30/2023 8:23 AM EDT Legal PveKmgbln54/15/2023 7:11 PM EDTGender XzhgxlmjIczebz48/30/2023 8:23 AM EDT Sexual HykoltowkxdUeveboiy35/30/2023 8:23 AM EDTdocumented as of this encounter Plan of Treatment DateTypeDepartmentCare Team (Latest Contact Info)Cbivbrjbeko16/13/2025 10:50 AM ESTRoutine [facility]THONY [address] [place] [phone] Karla Matthews PA [address] [place] [address] [place] [address] documented as of this encounter Procedures Procedure NamePriorityDate/TimeAssociated DiagnosisCommentsUS OB 14+ WEEKS ANATOMY SCAN12/13/2024 10:23 AM EDT documented in this encounter Results * US OB 14+ weeks anatomy scan (12/13/2024 10:23 AM EDT)Anatomical Region LateralityModalityBodyUltrasoundSpecimen (Source)Anatomical Location / LateralityCollection Method / VolumeCollection TimeReceived Time12/13/2024 10:23 AM EDT Narrative 12/13/2024 10:23 AM EDT THIS EXAM WAS PERFORMED AT [facility] NAME: ??LUIS BEAULIEU : 1995 SEX: F Accession Number: [id number] ORDERING PHYSICIAN: KENJI PLASCENCIA REFERRING PHYSICIAN: IVY BAKER Coding Procedures ? 34407: Ultrasound, uterus, real time with image documentation, and maternal evaluation ? plus detailed anatomic examination, transabdominal approach;single or first gestation ? 54309: Ultrasound, uterus, real time with image documentation, [...] 108 kg, 237 lb. Initial BMI 40.68 kg/m??? Method Transabdominal and transvaginal ultrasound examination. View: Suboptimal view: limited by maternal body habitus. Medical Deep Fat Fry Cook Deep Fat Fry Cook declined Wolfe . Number of fetuses: 1 [...] (oz) ? 3 oz EFW by: ?Hadlock (BZW-NA-BZ-FL) Extended Tibia ??36.4 mm 23w 5d 72% Jocelyn Crocheter ? 4.1 mm CM ? 6.0 mm [...] Heart / Thorax RVOT view. LVOT view. 4-pbqddj-tegtcow view. Ductal arch view. Interventricular septum. Great [...] MVP measures 4.7 cm. Recommendations Please see [facility] documentation from today. Subsequent follow up or other follow up as clinically determined by primary OB provider unless otherwise specified by MFM. Results forwarded to ordering provider so they can follow up with the patient as necessary. The copy-to physician of this order is IVY Phillips The ordering physician of this order is KENJI Salvador Procedure Note Radiology, Radiologist, MD - 12/13/2024 THIS EXAM WAS PERFORMED AT [facility] NAME: LUIS BEAULIEU : 1995 SEX: F Accession Number: [id number] ORDERING PHYSICIAN: KENJI PLASCENCIA REFERRING PHYSICIAN: IVY BAKER Coding Procedures 46828: Ultrasound, uterus, real time with image documentation, and maternal evaluation plus detailed anatomic examination, transabdominalapproach;single or first gestation 84555: Ultrasound, uterus, real time with imagedocumentation, transvaginal Indication Screening for Anatomic Survey, Screening for cervical length, Obesity in , Hypothyroidism, History of gestational hypertension, History of prior with gestational diabetes. History OB History 4. Para 3 T3 Current Cell free DNA low risk analysis Maternal Assessment Physical Exam Height 163 cm, 5 ft 4 in. Initial weight 108 kg, 237 lb.Initial BMI 40.68 kg/m??? Method Transabdominal and transvaginal ultrasound examination. View: Suboptimalview: limited by maternal body habitus. Medical Deep Fat Fry Cook Deep Fat Fry Cook declined Wolfe . Number of fetuses: 1 [...] EFW (oz) 3 oz EFW by: Hadlock (HBM-HA-HS-FL) Extended Tibia 36.4 mm 23w 5d 72% Jocelyn Crocheter 4.1 mm CM 6.0 mm 60% Nicolaides [...] Heart / Thorax RVOT view. LVOT view. 0-wpqpah-ywwwime view. Ductal archview. Interventricular septum. Great vessels. [...] can follow up with thepatient as necessary. The copy-to physician of this order is IVY Phillips The ordering physician of this order is KENJI Salvador Authorizing ProviderResult TypeResult StatusCorey Samuel MOROCHO OB US PROCEDURES Final Result documented in this encounter Visit Diagnoses Not on filedocumented in this encounter
--- OUTSIDE RECORDS SUMMARY | 2024-12-22 06:55 | XMS_ITS | Patient Health Record ---
Author Organization [facility] Address [address] [place] [address] Care Team Providers Care Ems Driver Name Role Phone emmy schultz Unavailable [phone] Allergies Allergen (clinical drug ingredient) Drug/Non Drug Allergy documented on EMR Reaction Allergy Type Onset Date Status Substance with sulfonamide s tructure and antibacterial mechanism of action (substance) sulfa (uncoded) Unknown Navid dupont ActivePediazoleUnknownDrug AllergyActive Reason For Referral No Information Medications Medication SIG (Take, Route, Frequency, Duration) Notes Start Date End Date Status Synthroid 200 MCG Tablet 1 tablet on an empty stomach in the morning Orally Once a day; Duration: 30 day(s) 08/14/2018ActiveMobic 15 MG Tablet1 tablet Orally Once a day; Duration: 30 day(s)Active Social History Social History Social HistorySocial InfoQuestionAnswerNotesAlcohol Screening:Did you have a drink containing alcohol in the past year?Yes? How often did you have a drink containing alcohol in the past year?Monthly or less (1 point)Points1 InterpretationNegativeAdditional DetailsCategorySocial InfoOptionsDetailsSocial HistoryAlcohol:Styles 08/14/2018 01:30:16 PM EDT > , Occasional alcohol Tobacco UsePineda 08/14/2018 01:30:05 PM EDT > , no Problems Problem Type SNOMED Code ICD Code Onset Dates Problem Status W/U Status Risk Notes Problem Obesity (502803063) Obesity (BMI 35.0-39. 9 without comorbidity) (E66.9) Activeconfirmed Plan Of Treatment Pending Test Test Name Order Date X ray : Spines, lumbosacral 08/14/2018 URINE RAPID TEST 08/14/2018 CMP Comprehensive Metabolic Panel w/ eGF R (03255) [facility] 08/14/2018 Lipid Panel w/ Reflex to Direct LDL (148 52) [facility] 08/14/2018 Vitamin D, 25-Hydroxy, Total, Immunoassa y (77006) - [facility] 08/14/2018 HEMOGLOBIN A1c (496) [facility] 08/14/2018 UA Urinalysis Complete (6654) [facility] 07/28 CBC (includes Differential and Platelets ) (8399) [facility] 08/14/2018 TSH and FREE T4 (43354) [facility] 08/14/2018 Insurance Providers Payer Name Payer Address Payer Phone Subscriber Number Group Number Insured Name Patient Relationship to Insured Coverage Start Date Coverage End Date BCBS [facility] PPO/POS/HMO [employer]PRESS [address] [place] [address] [id number] Lars Mathur - patient is the insured Medical (General) History Medical History History ICD Code high blood pressure THYROID DISORDERSurgical History Surgery Date(Month/Year) right hand surgery 10/11 Hospitalization History Reason Date(Month/Year) broken hand 09/10 induced 05/17/18
--- OUTSIDE RECORDS SUMMARY | 2024-12-22 06:55 | XMS_ITS | Data Portability ---
Author Organization [place] [facility] Address [address] [place] [address] Care Team Providers Care Real Estate Job Titles Name Role Phone CAROLCHEYENNEJarekROSS Primary Care Provider [phone] Assessment Encounter Date Assessment Date Assessment LastModified by Organization Details LastModified Time 01/30/2018 01/30/2018 The patient came in today to due to the results of an abnormal EKG. A repeat EKG was performed in the office with results as noted above. The patient currently experiencing symptoms. Further cardiac testing required and has been discussed with the patient. [email or web address] Not available 02/15/2018 15:13:09 Plan of Treatment Reminders Order DateSubmit DateProviderLast Modified ByOrganization DetailsLast Modified TimeDetailsAppointmentsNone recorded.LabNone recorded.ReferralNone recorded. ProceduresNone recorded.SurgeriesNone recorded.ImagingNone recorded.Medication OrdersNone recorded. Patient TargetsNo targets recorded. Patient InstructionsNo instructions recorded. Reason for Referral None Reported. Results Created Date Observation Date Name Description Value Unit Range Abnormal Flag Note LastModifiedBy Organization Detail LastModifiedTime 03/12/2018 US, echocardiogramNo observation recorded.msjlmd4Rks Jozepzdtn94/14/2019 13:49:52 Result Notes None recorded. Medical Equipment None Reported. Allergies Allergen ID Allergen Name Allergen Category Reaction Reaction Severity Criticality Documentation Date Start Date Code Code System Note Provider Name and Address Organization Details Recorded Time 813 Substance with sulfo namide structure and antibacterial mechanism of action (substance) medication Not available Not available Not pgnkbatxc65/15/3882790462453WQFDUMWetcxxg Vasiliy ascencio [place] [facility] Soqzwwhiqhb63/15/2019 15:19:33 Medications Name Sig Start Date Stop Date Status Note LastModified by Organization Details LastModified Time Synthroid 200 mcg tablet Take 1 tablet every day by oral route. activeNot AvailableNot AvailableNot AvailableSynthroid 25 mcg tabletTake 1 tablet every day by oral route.activeNot AvailableNot AvailableNot Available Vitals Date Recorded Body weight Body mass index (BMI) Body height Respiratory rate Heart rate Oxygen saturation Oxygen saturation in Arterial blood by Pulse oximetry Systolic And Diastolic Provider Name and Address Organization Details Last Updated DateTime 9 74166.4 g 36 kg/m2 162.56 cm 16 /min 94 /min 98 % 98 % 112/60 mm[Hg] Lina Amanda [place] [facility] 9 15:19:18 Social History Question Answer Notes LastModified by Organization D etails LastModified Time Tobacco Smoking Status Never [facility] [place] [facility] Mbekfweukcu57/15/2019 15:21:12Marital StatusSingle klslltdr33Acowdmhkfzw not awetakqey72/15/2019What Was The Date Of Your Most Recent Tobacco Screening?03/13/[id number] not available 09/20/2018 Sex: Unknown Functional Status None recorded. Mental Status None recorded. Family History Nothing Reported Notes:mother alive father al ricky Medical History Condition Response Coronary Artery Disease N Thyroid Disease N Atrial Fibrillation N Depression N Congenital Heart Disease N COPD N Peripheral Arterial Disease N Pacemaker N TIA N Genitourinary Disease N Gastrointestinal Disease N Deep Vein Thrombosis N Blood Clot N Cancer N Stroke N Carotid Disease N Aortic Aneurysm N High Cholesterol N Neurologic Disorder N Liver Disease N Valvular Abnormalities N Arrhythmia N Kidney Disease N Anemia N Diabetes N Cardiomyopathy N Myocardial Infarction N Congestive Heart Failure (CHF) N Valvular Heart Disease N Hyperlipidemia N Asthma N Atrial Flutter N Sleep Apnea N Sleep Disorder N GERD/Reflux N Warfarin Management N Heart Disease N Hypertension N Hematologic Disease N Gynecological HistoryNo gynecological history recorded. Obstetrics History GPAL:G 0 P 0 0 0 0 Past Encounters Encounter ID Performer Location Encounter Start Date Encounter Closed Date Diagnosis/Indication Diagnosis SNOMED-CT Code Diagnosis ICD10 Code Diagnosis IMO Codes Diagnosis Note 77 Mini Gipson MD Main Office [address] [place] [phone] 01/30/2018 10:52:38 01/30/2018 15:49:20 Electrocardiogram abnormal 826546647 R94.31 2003Ajit Talleyin Office [address] [facility] [address] [place] [address] 03/13/2018 15:10:10003/13/2018 15:47:46Systolic swapiv39638488O35.1 Echo 01/30/18 - EF of 65-70%, trace MVR, trace OAQNknhcimlaltkki05124930U22.9 Thyroid function and medication management per PCP/endocrinology.Palpitations 77192489N68.2 Event monitor shows episodes of tachycardia, however patient denies feeling any palpitations. She reports that she runs around a lot at work and has to walk up and down stairs at home. Palpitations most likely related to condition. Spoke to Dr. Gipson regarding event monitor results via telephone, no need for intervention at this time. Patient instructed to keep a track of her pulse rate. Patient instructed that if palpitations occur more frequently and even at rest [...] Guarantor Name 07/31/2018 1 [employer] [id number] Munir Mathur [id number] [facility] 12/05/2022 2 [facility] (MEDICAID REPLACEMENT - HMO) [id number] Rayaaicha Mathur [id number] Raya YsasiAETNA - [employer]PP[employer])Munir [id number] Ysasi Notes Date Note Type Note Provider Name and Address Orga nization Details Recorded Time 01/30/2018 text/html Patient presents today with a history of abnormal EKG results. Patient is . Associated Symptoms: chest pain. dizziness. fainting. palpitations. shortness of breath. weakness. fatigue.Mini Gipson MD [address] [facility] [address], [place], [address], [facility] Vatkisbrtdd49/26/2018 14:34:22003/13/2018text/html Patient is a 23 year old female with a past medical history of palpitations and hypothyroid who presents to the office for test results. Denies any chest pain, palpitations, shortness of breath, edema, n/v/d, fever/chills, headaches, dizziness, fatigue or bowel/urinary complaints.SRIKANTH Cook - [facility] Atkxfxwlbps02/15/2019 15:49:42 OBGyn Episode No OBEpisode recorded.
--- OUTSIDE RECORDS SUMMARY | 2024-12-22 06:55 | XMS_ITS | Clinical Summary ---
Author Organization [facility] Address [address] [place] [address] Care Team Providers Care Instructor Looping Name Role Phone Unavailable Primary Care Provider Unavailabl e Allergies Active AllergyReactionsCriticalityNoted DateCommentsOtherRash,AqeemTeb09/24/2023 PEDIAZOLE Sulfa AntibioticsOther,UcqaDcnakj63/22/2012 Other Reaction(s): Unknown MfpjlbpowvpbpdizNtiuOil82/22/2023 Medications MedicationSigDispense QuantityRefillsLast FilledStart DateEnd DateStatus fluticasone (Flonase) 50 MCG/ACT nasal spray Administer 1 spray into each nostril Daily Shake gently. Before first use, prime pump. After use, clean tip and replace cap.Active Vit-Fe Fumarate-FA ( Vitamins) 28-0.8 MG tablet Indications:Positive urine test ([facility])Take 1 tablet by mouth Daily 30 tablet 306/30/535137/30/6Active Synthroid 300 MCG tablet Indications:Hypothyroidism, unspecified typeTake 1 tablet (300 mcg) by mouth in the morning. Take before meals. 360 tablet 10/04/129129/6Active bisacodyl (Dulcolax) 10 MG suppository Indications:Constipation, unspecified constipation typeUNWRAP AND INSERT 1 SUPPOSITORY RECTALLY DAILY FOR 10 DAYS 10 suppository 5Active levothyroxine (Synthroid) 25 MCG tablet Indications:History of hyperthyroidismTake 1 tablet (25 mcg) by mouth in the morning. Take before meals. 30 tablet 1109/12/407925/6Active Synthroid 300 MCG tablet Indications:Alfredo's disease,Thyroid disease during , first trimester ([facility])Take 1 tablet (300 mcg) by mouth Daily 90 tablet 506Active Active Problems ProblemNoted DateDiagnosed DateAcute wxbagpmaul57/17/2025Acute streptococcal sfanvfrwlfn49/17/2025Exposure to STD05/31/2023Encounter for weight management 05/31/20230151Crygsy74/30/2023luster headache jtsyqzoj58/30/2023ongenital hypothyroidism without hiugnx6107/26/2022Missed yoopwv5107/26/2022Unable to comply with mmljkiogx26/30/2023Obesity affecting , antepartum ([facility]) 11/13/2018Pregnancy ([facility])11/28/20176011Nkfbqrjnwwxqnxe25/02/2018Obesity (BMI 35.0-39.9 without comorbidity)11/16/20176197Oczmdqmjwrk96/01/2017Acute pharyngitis 09/10/2009Chondromalacia of duuoecg0605/27/2009Encounter for childhood immunizations appropriate for age0708/30/2007Dermatitis, zrosop1008/04/2005llergic cbifakat70/22/4795Tmeyqm25/22/9662Hvzenwxzlsp28/01/1994Estimated Date of BnznlvbqLsqlmopqOjn31/13/2026ased on Ultrasound Resolved Problems ProblemNoted DateDiagnosed DateResolved DatePregnancy-induced hypertension ([facility])nemia of ([facility]) Encounters DateTypeDepartmentCare QbtqNswpewyevmx50/17/2025bstract [facility] [address] [place] [address] Ivy Baker, DO 12/13/2024External Result Encounter [facility] [address] [facility] [place] [address] Ivy Baker, DO 12/13/2024Patient Outreach [facility] [address] [place] [address] Karla Campa LPN 12/12/2024 9:30 AM EDTProcedure Visit [facility] [address] [place] [address] Ivy Baker DO Colposcopy needed after cervical smear; Second trimester ([facility]); 22 weeks gestation of ([facility])11/15/2024Patient Outreach [facility] [address] [place] [address] Karla Campa BENZENE OPERATOR 11/15/2024Orders Only [facility] [address] [place] [address] Carolina Stone BENZENE OPERATOR 11/13/2024Telephone [facility] [address] [place] [address] Tess Lopez NP 11/13/2024bstract [facility] [address] [place] [address] Karla Campa, BENZENE OPERATOR 11/11/2024Telephone [facility] [place] [facility] [address] [place] [phone] Allen Carr MD Prior Izhpjuopbqhje02/12/2025Refill [facility] [address] [facility] [place] [address] Marcie Flannery LPN History of odpyozwkjlmmguk76/12/2025bstract [facility] [address] [place] [address] Ivy Baker DO 11/07/2024 11:10 AM EDTRoutine [facility] [address] [place] [address] Tess Lopez, KALIE 17 weeks gestation of ([facility]); Second trimester ([facility]); History of hyperthyroidism; Well woman exam with routine gynecological exam; Screening, , for anatomic survey ([facility]); Vaginal discharge; Exposure to STD11/07/2024linisync Result Encounter [facility] External Department Unsolicited Tess Lopez, KALIE 11/07/2024bstract [facility] [address] [facility] [place] [address] Ivy Baker, DO 11/07/2024bstract [facility] [address] [facility] [place] [address] Karla Matthews PA 11/07/2024External Result Encounter [facility] External Department Unsolicited Tess Lopez, SENIOR QC TECHNICIAN 11/07/2024amboo flowsheet [facility] [address] [facility] [facility] [place] [address] Tess Lopez, KALIE 10/23/2024Telephone [facility] [address] [facility] [facility] [place] [address] Ivy Baker, DO 10/22/2024bstract [facility] [address] [facility] [place] [address] Ivy Baker, 10/09/2024Refill [facility] [address] [facility] [facility] [place] [address] Ivy Baker, Constipation, unspecified constipation type10/08/2024 1:50 PM EDTRoutine [facility] [address] [facility] [facility] [place] [address] Ivy Baker DO 13 weeks gestation of ([facility]); Second trimester ([facility]); Nausea and vomiting in ([facility]); History of hyperthyroidism; Constipation, unspecified constipation type10/08/2024amboo flowsheet [facility] [address] [facility] [facility] [place] [address] Ivy Baker DO 10/04/2024 10:40 AM EDTOffice Visit [facility] [place] [facility] [address] [place] [address] Allen Carr MD Alfredo's disease (Primary Dx); Vitamin D deficiency; Encounter for dietary consultation; Thyroid disease during , first trimester (HCC); Hypothyroidism, unspecified type10/04/2024amboo flowsheet [facility] [place] [facility] [address] [place] [address] Allen Carr MD 10/03/2024linisync Result Encounter [facility] External Department Unsolicited Ivy Baker DO 09/23/2024Telephone [facility] [address] [place] [address] [place] [address] Ivy Baker DO from Last 3 Months Immunizations ImmunizationAdministration DatesNext MmrOors9708/04/2005 Family History Medical HistoryRelationNameCommentsHypothyroidismFatherDiabetesMaternal GrandfatherGrandpaDiabetesOtherpaternal auntsThyroid diseaseOtherpaternal side LymphomaPaternal GrandfatherRelationNameStatusCommentsFatherAliveMaternal GrandfatherGrandpaMotherAliveOtherPaternal Grandfather Social History Tobacco UseTypesPacks/DayYears UsedDateSmoking Tobacco: NeverSmokeless Tobacco: Never Tobacco Cessation:Counseling Given: Not Answered Alcohol UseStandard Drinks/WeekCommentsYes2 (1 standard drink = 0.6 oz pure alcohol)Alcohol: 1 or 2 drinks, 2 to 4 times a month; Caffeine: 1 can /weekPHQ-2 AnswerDate RecordedPatient Health Questionnaire-2 Xscro885 Estimated Date of RokqzxgiPfoepxksMeb08/13/2026ased on UltrasoundSex and Gender InformationValueDate RecordedSex Assigned at AouvjBdfvlf98/30/2023 8:23 AM EDT Legal VwcGubejf68/15/2023 7:11 PM EDTGender QdbwcbrcIdirwj68/30/2023 8:23 AM EDT Sexual CxgyqdooqymWqtwlywl44/30/2023 8:23 AM EDT Last Filed Vital Signs Vital SignReadingTime TakenCommentsBlood Kcqxmgdx441/6212/12/2024 9:24 AM EDT Ciluu6971 10:07 AM EDTTemperature--Respiratory Yehp2837 10:07 AM EDTOxygen Vtckblxreg69%10/04/2024 10:07 AM EDTInhaled Oxygen Concentration-- Davexk722 kg (236 lb)12/12/2024 9:24 AM RWXVcrsgt718 cm (5' 3 )10/04/2024 10:07 AM EDTBody Mass Index41.8110/04/2024 10:07 AM EDT Plan of Treatment DateTypeDepartmentCare Team (Latest Contact Info)Oshdaaaziht82/13/2025 10:50 AM ESTRoutine [facility] [address] [facility] [facility] [place] [phone] Karla Matthews PA [address] [facility] [address] [facility] [address] [place], [place] [address] Procedures Procedure NamePriorityDate/TimeAssociated DiagnosisCommentsUS OB 14+ WEEKS ANATOMY SCAN12/13/2024 10:23 AM EDT PVIIMAHBWUMgwtrrx85/16/2025 10:08 AM EDT Colposcopy needed after cervical smear Second trimester ([facility]) 22 weeks gestation of ([facility]) POCT URINALYSIS LGOKPCUNSiozzwi65/16/2025 9:30 AM EDT 22 weeks gestation of ([facility]) RECURRENT VAGINITIS (HTRX)Bcxvfos9811/07/2024 3:18 PM EDT CULTURE, URINE, KBQWTIGYtgfkuj88/11/2025 2:08 PM EDT Missed menses POCT URINALYSIS NDKHDMFGZegfnej34/11/2025 11:41 AM EDT 17 weeks gestation of ([facility]) Second trimester ([facility]) IGP,APTIMA HPV,AGE QZORSqdiyrz02/11/2025 11:14 AM EDT PAP JJBQQTwuzqyk67/11/2025 12:00 AM ZVEHRYJuhgmnl65/12/2025 4:10 PM EDT Alfredo's disease Thyroid disease during , first trimester (HCC) T4, MRAFCanwhku47/12/2025 4:10 PM EDT Alfredo's disease Thyroid disease during , first trimester (HCC) T3, DALJQpwoogq80/12/2025 4:10 PM EDT Alfredo's disease Thyroid disease during , first trimester (HCC) POCT URINALYSIS XYPHSQJCTqssvdd97/12/2025 2:11 PM EDT 13 weeks gestation of ([facility]) Second trimester ([facility]) GLUCOSE TOLERANCE 3 NHTFUmcoibv20/07/2025 10:24 AM EDT from Last 3 Months Results * US OB 14+ weeks anatomy scan (12/13/2024 10:23 AM EDT)Anatomical Region LateralityModalityBodyUltrasoundSpecimen (Source)Anatomical Location / LateralityCollection Method / VolumeCollection TimeReceived Time12/13/2024 10:23 AM EDT Narrative 12/13/2024 10:23 AM EDT THIS EXAM WAS PERFORMED AT [facility] NAME: ??LUIS BEAULIEU : 1995 SEX: F Accession Number: [id number] ORDERING PHYSICIAN: FUAD PLASCENCIA REFERRING PHYSICIAN: IVY BAKER Coding Procedures ? 95420: Ultrasound, uterus, real time with image documentation, and maternal evaluation ? plus detailed anatomic examination, transabdominal approach;single or first gestation ? 87617: Ultrasound, uterus, real time with image documentation, [...] view: limited by maternal body habitus. Medical Heavy Equipment Engine Mechanic Heavy Equipment Engine Mechanic declined Wolfe . Number of fetuses: 1 [...] (oz) ? 3 oz EFW by: ?Hadlock ([id number]-FL) Extended Tibia ??36.4 mm 23w 5d 72% Jocelyn Sleeve Setter ? 4.1 mm CM ? 6.0 mm [...] Heart / Thorax RVOT view. LVOT view. 4-ecujbh-fnxvkbn view. Ductal arch view. Interventricular septum. Great [...] MVP measures 4.7 cm. Recommendations Please see [facility] documentation from today. Subsequent follow up or other follow up as clinically determined by primary OB provider unless otherwise specified by [facility]. Results forwarded to ordering provider so they can follow up with the patient as necessary. The copy-to physician of this order is IVY Phillips The ordering physician of this order is FUAD Salvador Procedure Note Radiology, Radiologist, MD - 12/13/2024 THIS EXAM WAS PERFORMED AT [facility] NAME: LUIS BEAULIEU : 1995 SEX: F Accession Number: [id number] ORDERING PHYSICIAN: FUAD PLASCENCIA REFERRING PHYSICIAN: IVY BAKER Coding Procedures 25066: Ultrasound, uterus, real time with image documentation, and maternal evaluation plus detailed anatomic examination, transabdominalapproach;single or first gestation 90577: Ultrasound, uterus, real time with imagedocumentation, transvaginal [...] Suboptimalview: limited by maternal body habitus. Medical Heavy Equipment Engine Mechanic Heavy Equipment Engine Mechanic declined Wolfe . Number of fetuses: 1 [...] EFW (oz) 3 oz EFW by: Hadlock (XTX-NE-XN-FL) Extended Tibia 36.4 mm 23w 5d 72% Jocelyn Sleeve Setter 4.1 mm CM 6.0 mm 60% Nicolaides [...] Heart / Thorax RVOT view. LVOT view. 5-mqensw-fglhqkk view. Ductal archview. Interventricular septum. Great vessels. [...] The ordering physician of this order is FUAD Salvador Authorizing ProviderResult TypeResult StatusCorey Samuel [facility] US PROCEDURES Final Result * Colposcopy (12/12/2024 10:08 AM EDT) Calista Zaragoza LPN - 12/12/2024 10:08 AM EDT Calista Khan LPN 12/12/2024 10:24 AM Colposcopy Date/Time: 12/12/2024 10:08 AM Performed by: Ivy Baker DO Authorized by: Ivy Baker DO ?? Consent: ??Patient questions answered: [...] handouts given: no ?? Authorizing ProviderResult TypeResult StatusCorey Samuel [facility]/BED[facility]IDE ORDERABLESFinal Result * (ABNORMAL) POCT urinalysis dipstick manually resulted (12/12/2024 9:30 AM EDT) Only the most recent of3 resultswithin the time period is included. ComponentValueRef RangeTest MethodAnalysis TimePerformed AtPathologist Signature Color, UAYellowClarity, UAClearGlucose, UANegativeNegative - 2000(110) ++++ mg/dLBilirubin, UANegativeNegative - 4(70) +++ mg/dLKetones, UAPositiveNegative - 160(16) ++++ mg/dLSpec Grav, UA1.0201 - 1.03Blood, UANegativeNegative - 50 John/mcLpH, UA6.05 - 9Protein, UATraceNegative - 2000(20) ++++ mg/dLUrobilinogen, UA2.00.2 - 12 mg/dLLeukocytes, UANegativeNegative - 500+++ Anderson/mcLNitrite, UA NegativeNegative - PositiveSpecimen (Source)Anatomical Location / Laterality Collection Method / VolumeCollection TimeReceived WaifMdiof69/16/2025 9:30 AM EDT Narrative Authorizing ProviderResult TypeResult StatusCorejona Baker [facility]ARE TEST ENTER/EDIT ORDERABLESFinal Result * RECURRENT VAGINITIS (HTRX) (11/07/2024 3:18 PM EDT)ComponentValueRef RangeTest MethodAnalysis TimePerformed AtPathologist SignatureATOPOBIUM KZMNXES461.961 - 24.689 [facility]11/08/2024 7:08 AM EDTHealthTrackRx at LabPortATOPOBIUM VAGINAENot Pvhsjqou79.961 - 24.689 ppm11/08/2024 7:08 AM EDTHealthTrackRx at LabReid Hospital And Health Care ServicesBVAB 2,3 (BACTERIAL VAGINOSIS ASSOCIATED BACTERIA 2, 3); MOBILUNCUS PYA294.961 - 24.689 ppm11/08/2024 7:[address] [facility] HospitalBVAB 2,3 (BACTERIAL VAGINOSIS ASSOCIATED BACTERIA 2, 3); MOBILUNCUS SPPNot Djuuyxcn34.961 - 24.689 ppm11/08/2024 7:[address] [facility] HospitalCANDIDA ALBICANS, PARAPSILOSIS, IPUTZILLUE946.000 - 30.347 ppm11/08/2024 7:08 AM EDT [facility] at LabReid Hospital And Health Care ServicesCANDIDA ALBICANS, PARAPSILOSIS, TROPICALISNot Detected 23.000 - 30.347 ppm11/08/2024 7:[address] [facility] HospitalCANDIDA LYNRIZRK194.000 - 31.618 ppm11/08/2024 7:[address] [facility] SHOAIB GLABRATANot Bgcgwgsq91.000 - 31.618 ppm11/08/2024 7:08 AM EDT [facility] HospitalCANDIDA ZATYWW488.000 - 30.873 ppm11/08/2024 7:[address] [facility] HospitalCANDIDA KRUSEINot Yjgebtyi21.000 - 30.873 ppm 11/08/2024 7:[address] Elizabeth HospitalCHLAMYDIA UPXATYRHHIA913.000 - 31.586 ppm11/08/2024 7:[address] [facility] HospitalCHLAMYDIA TRACHOMATIS Not Mnvzlesm45.000 - 31.586 ppm11/08/2024 7:[address] [facility] GARDNERELLA HYABTHPZO143.961 - 24.689 ppm11/08/2024 7:[address] Elizabeth HospitalGARDNERELLA VAGINALISNot Soalmhxo70.961 - 24.689 ppm11/08/2024 7:08 AM EDTHealthTrackRx at LabReid Hospital And Health Care ServicesMEGASPHAERA (TYPES 1, 2)019.961 - 24.689 ppm 11/08/2024 7:[address] Elizabeth HospitalMEGASPHAERA (TYPES 1, 2)Not Bmeyprhi48.961 - 24.689 ppm11/08/2024 7:[address] [facility] NEISSERIA QHMTPQDKXWD649.000 - 32.587 ppm11/08/2024 7:[address] Elizabeth HospitalNEISSERIA GONORRHOEAENot Obpqagvx46.000 - 32.587 ppm11/08/2024 7:[address] Elizabeth HospitalTRICHOMONAS GEZIYNAIF396.000 - 31.995 ppm 11/08/2024 7:[address] Elizabeth HospitalTRICHOMONAS VAGINALISNot Jrzdbqko72.000 - 31.995 ppm11/08/2024 7:[address] [facility] MYCOPLASMA ZMENNEEKPI573.961 - 24.689 ppm11/08/2024 7:[address] Elizabeth HospitalMYCOPLASMA GENITALIUMNot Grregoxc22.961 - 24.689 ppm11/08/2024 7:08 AM EDTHealthTrackRx at LabReid Hospital And Health Care ServicesSpecimen (Source)Anatomical Location / LateralityCollection Method / VolumeCollection TimeReceived TimeTissue 11/07/2024 3:18 PM EDT11/08/2024 2:20 AM EDT Narrative Authorizing ProviderResult TypeResult StatusTess Lopez LAB BLOOD ORDERABLESFinal ResultPerforming OrganizationAddressCity/State/ZIP CodePhone Number [facility] at LabRe[facility] [address] [address] * Urine culture (11/07/2024 2:08 PM EDT)Specimen (Source)Anatomical Location / LateralityCollection Method / VolumeCollection TimeReceived TimeUrineUrine specimen obtained by clean catch procedure / Unknown Narrative Authorizing ProviderResult TypeResult StatusIvy LOPEZ MICROBIOLOGY - GENERAL ORDERABLESFinal ResultPerforming OrganizationAddressCity/State/ZIP Code Phone Number EXTERNAL LAB * (ABNORMAL) IGP,APTIMA HPV,AGE GDLN (11/07/2024 11:14 AM EDT)ComponentValueRef RangeTest MethodAnalysis TimePerformed AtPathologist SignatureAGE GDLN ACOG TESTINGNote.TBHComment: ?? TESTS ? RESULT ??FLAG ??UNITS ?REF RANGE ??LAB ?? Clinician Provided Cytology Information ?? Source.............[employer] ?? Other.............. ?? No. of containers..01 ThinPrep Vial Age Algo ACOG Berenice... ??30-65 ? 01 ?FLAG LEGEND: ?L-Low Normal,H-High Normal,LL-Alert Low,HH-Alert High <-Panic Low,>-Panic High,A-Abnormal,AA-Critical Abnormal Performed at: 01 =G ?[facility] ?? [address] [place] ??[phone] ?? Yi Martin MD, IGP, APTIMA HPV, RFX 16/18,45Note(A).TBHComment: ?? TESTS ? RESULT ??FLAG ??UNITS ?REF RANGE ??LAB DIAGNOSIS: ? [A] ?02 ?? EPITHELIAL CELL ABNORMALITY. ?? ATYPICAL SQUAMOUS CELLS OF UNDETERMINED SIGNIFICANCE (ASC-US). Recommendation: ?[A] ?02 ?? Suggest follow up as clinically appropriate. Specimen adequacy: ?02 ?? Satisfactory for evaluation. No endocervical component is identified. Performed by: ? 02 ?? Abdulkadir Bunn General Doc (ASCP) Electronically si... ?02 ?? Poppy Joyner MD, Pathologist . ? 02 Pathologist ICD10: ?02 ?? R87.610 Note: ? Note ?02 ?? The Pap smear is a screening test designed to aid in the ?? detection of premalignant and malignant conditions of the ?? uterine cervix. ??It is not a diagnostic procedure and ?? should not be used as the sole means of detecting cervical ?? cancer. ??Both false-positive and false-negative reports do ?? occur. Test Methodology: ? Note ?02 ?? This liquid based ThinPrep(R) pap test was screened with ?? the use of an image guided system. HPV Genotype Reflex ?? Note ?02 ?? Criteria not met, HPV Genotype not performed. ?FLAG LEGEND: ?L-Low Normal,H-High Normal,LL-Alert Low,HH-Alert High <-Panic Low,>-Panic High,A-Abnormal,AA-Critical Abnormal Performed at: 02 WB ?[facility] ?? [address] [place] ??[phone] ?? Yi Martin MD, HPV APTIMAPositive(A)NegativeTBHComment: This nucleic acid amplification test detects fourteen high- risk HPV types (16,18,31,33,35,39,45,51,52,56,58,59,66,68) without differentiation. Performed at: ??=G - [facility] ??[id number] Registered Nurse Float Pool: Yi Martin MD, Phone: ??[phone] Performed at: ??WB - [facility] ??[id number] Registered Nurse Float Pool: Yi Martin MD, Phone: ??[phone] Specimen (Source)Anatomical Location / LateralityCollection Method / Volume Collection TimeReceived Time11/07/2024 11:14 AM EDT11/07/2024 8:08 PM EDT Narrative [facility] - 11/13/2024 3:08 PM EDT SPATULA-ALONE ENDOCERVIX Authorizing ProviderResult TypeResult StatusTess Lopez NPLAB BLOOD ORDERABLESFinal ResultPerforming OrganizationAddressCity/State/ZIP CodePhone Number [facility] * (ABNORMAL) Pap Smear (11/07/2024 12:00 AM EDT)Specimen (Source)Anatomical Location / LateralityCollection Method / VolumeCollection TimeReceived Time SwabCervical swab / Unknown Narrative Authorizing ProviderResult TypeResult StatusFazio Nurse [facility] ObLAB CYTOLOGY ORDERABLESFinal ResultPerforming OrganizationAddressCity/State/ZIP CodePhone Number EXTERNAL LAB * T3, free (10/08/2024 4:10 PM EDT)Specimen (Source)Anatomical Location / LateralityCollection Method / VolumeCollection TimeReceived TimeBloodVenous blood specimen / Unknown Narrative Authorizing ProviderResult TypeResult StatusAllen Carr MDLAB BLOOD ORDERABLESFinal ResultPerforming OrganizationAddressCity/State/ZIP CodePhone Number [facility] * TSH (10/08/2024 4:10 PM EDT)Specimen (Source)Anatomical Location / Laterality Collection Method / VolumeCollection TimeReceived TimeBloodVenous blood specimen / Unknown Narrative Authorizing ProviderResult TypeResult StatusAllen Rohan Bruno LANDISLAB BLOOD ORDERABLESFinal ResultPerforming OrganizationAddressCity/State/ZIP CodePhone Number [facility] * T4, free (10/08/2024 4:10 PM EDT)Specimen (Source)Anatomical Location / LateralityCollection Method / VolumeCollection TimeReceived TimeBloodVenous blood specimen / Unknown Narrative Authorizing ProviderResult TypeResult StatusAllen Rohan Bruno LANDISLAB BLOOD ORDERABLESFinal ResultPerforming OrganizationAddressCity/State/ZIP CodePhone Number [facility] * GLUCOSE TOLERANCE 3 HOUR (10/03/2024 10:24 AM EDT)ComponentValueRef RangeTest MethodAnalysis TimePerformed AtPathologist SignatureGLUCOSE TOLERANCE 3 HOUR mg/dLTBHComment: GLU FAST 86 (<95) Col: 10/03/24 1024 GLU 1HR 161 (<180) Col: 10/03/24 1122 GLU 2HR 124 (<155) Col: 10/03/24 1224 GLU 3HR 124 (<140) Col: 10/03/24 1325 Specimen (Source)Anatomical Location / LateralityCollection Method / Volume Collection TimeReceived Time10/03/2024 10:24 AM EDT10/03/2024 10:36 AM EDT Narrative [facility] - 10/03/2024 2:46 PM EDT Authorizing ProviderResult TypeResult StatusCorey Samuel DOLAB BLOOD ORDERABLES Final ResultPerforming OrganizationAddressCity/State/ZIP CodePhone Number [facility] from Last 3 Months Insurance
--- OUTSIDE RECORDS SUMMARY | 2024-12-22 06:55 | XMS_ITS | Encounter Summary ---
Author Organization [facility] tem Address [id number] [address] [place] [address] Care Team Providers Care Tubing Mill Setter Name Role Phone No Pcp, No Pcp Primary Care Provider Unavailabl e Encounter Details DateTypeDepartmentCare Team (Latest Contact Info)Qctjpaedghc25/16/2025Travel Social History Tobacco UseTypesPacks/DayYears UsedDateSmoking Tobacco: NeverSmokeless Tobacco: NeverAlcohol UseStandard Drinks/WeekCommentsNot Currently0 (1 standard drink = 0.6 oz pure alcohol)ChildcareAnswerDate YxbenbduCzruvywhxUienytq40/12/2019 EmploymentAnswerDate GtmhlcrhGrlenwyrcwQzvkqrj16/12/2019Hunger ScreeningAnswer Date RecordedWithin the past 12 months we worried whether our food would run out before we got money to buy more.Never True12/13/2024Within the past 12 months the food we bought just didn't last and we didn't have money to get more.Never True12/13/2024Estimated Date of CyitrqbrNvovdlidTej98/13/2026Based on UltrasoundSex and Gender InformationValueDate RecordedSex Assigned at BirthNot on fileLegal HaiFwrhuj67/06/2015 11:49 AM EDTGender IdentityNot on fileSexual OrientationNot on filedocumented as of this encounter Plan of Treatment DateTypeDepartmentCare Team (Latest Contact Info)Jyljxuqpbxe38/25/2025 2:15 PM ESTAppointment [facility] [address] [place] [address] documented as of this encounter Visit Diagnoses Not on filedocumented in this encounter Care Teams Team MemberRelationshipSpecialtyStart DateEnd Date No Pcp, [place] [address] PCP - GeneralFamily Medicine10/23/24documented as of this encounter
--- OUTSIDE RECORDS SUMMARY | 2024-12-22 06:55 | XMS_ITS | Patient Health Record ---
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 Name Role Phone Lance Santos Unavailable [phone] Allergies Allergen (clinical drug ingredient) Drug/Non Drug Allergy documented on EMR Reaction Allergy Type Onset Date Status PediazoleUnknownDrug Dsmmmwp4807/19/2011ctiveSubstance with sulfonamide structure and antibacterial mechanism of action (substance)Sulfa AntibioticsUnknownDrug Iuvhyau8007/19/2011ctive Reason For Referral No Information Immunizations Vaccine Route Administration Date Status Comme nts *Tdap (Adacel)-VFC IM Intramuscular 08/04/2005 Administered Status:Complete ,Reason:Given or N/A , leatha (08/04/2005) 20 minute check done no reaction 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: [employer] Parent/Guardian: present Social History Sex Assigned At : Social History Observation Description Sex Assigned At Female Problems Problem Type SNOMED Code ICD Code Onset Dates Problem Status W/U Status Risk Notes Problem 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, 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 confirmed ProblemAcute streptococcal pharyngitis (0006480399)Acute streptococcal pharyngitis (J02.0)Activeconfirmed Comment:rapid strep positive 10 days abx F/U 2 weeks EMPHASIZED THE NEED TO COMPLETE ALL 10 DAYS,Description:Streptococcal sore throat ProblemAsthma (534840064)Asthma (J45.909)02/18/2000ActiveconfirmedProbleealth supervision of healthy or child receiving care (V20.1) (V20.1)Active confirmedProblemAllergic rhinitis (10438808)Allergic rhinitis (J30.9)02/18/2000 ActiveconfirmedProblemHistory and physical examination, administrative (67467114)General medical examination for administrative purposes (V70.3) (V70.3)08/04/2005ctiveconfirmedProblemDermatitis, atopic (691.) (691)08/04/2005 ActiveconfirmedProblemAcute pharyngitis (530715879)Acute pharyngitis (J02.9) 09/10/2009ctiveconfirmedProblemAcute bronchitis (disorder) (76560442) Bronchitis, acute (466.0) (466.0)ActiveconfirmedProblemWell child visit (358287210)Routine or child health check (V20.2) (V20.2)08/30/2007ctive confirmedProblemAcute sinusitis (16448865)Acute infection of nasal sinus (J01.90)Problem resolvedconfirmedComment:advised to take her zyrtec 10mg po daily- states that she has zyrtec at home,Description:Acute sinusitis Plan Of Treatment No Information Insurance Providers Payer Name Payer Address Payer Phone Subscriber Number Group Number Insured Name Patient Relationship to Insured Coverage Start Date Coverage End Date 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
--- OUTSIDE RECORDS SUMMARY | 2024-12-22 06:55 | XMS_ITS | Encounter Summary ---
Author Organization [facility] Address [address] [place] [address] Care Team Providers Care Manager Infusion Name Role Phone Unavailable Primary Care Provider Unavailabl e Encounter Details DateTypeDepartmentCare Team (Latest Contact Info)Rulyfausrzq42/17/2025Telephone [facility] [address] [place] [address] Tess Lopez, [employer] [address] [place] [address] Social History Tobacco UseTypesPacks/DayYears UsedDateSmoking Tobacco: NeverSmokeless Tobacco: NeverAlcohol UseStandard Drinks/WeekCommentsYes2 (1 standard drink = 0.6 oz pure alcohol)Alcohol: 1 or 2 drinks, 2 to 4 times a month; Caffeine: 1 can /weekPHQ-2 AnswerDate RecordedPatient Health Questionnaire-2 [id number] Estimated Date of WznolvlnSbbjgdxgSlf74/13/2026Based on UltrasoundSex and Gender InformationValueDate RecordedSex Assigned at QfjtaXneuwe95/30/2023 8:23 AM EDT Legal IkfTcrded74/15/2023 7:11 PM EDTGender ZabzzfxpDcwrhd06/30/2023 8:23 AM EDT Sexual CzuicifcxtmRbobaurs73/30/2023 8:23 AM EDTdocumented as of this encounter Functional Status * Over the past 2 weeks, how often have you been bothered by any of the following problems?QuestionAnswerDate of AssessmentAuthorLittle interest or pleasure in doing thingsNot at all11/15/2024 11:04 AM Karla Whitten LPN Feeling down, depressed, or hopelessNot at all11/15/2024 11:04 AM Karla Whitten LPNPatient Health Questionnaire-2 [id number] 11:04 AM Karla Whitten LPN documented as of this encounter Miscellaneous Notes * Telephone Encounter - Tess Lopez NP - 11/13/2024 4:56 PM EDT Please schedule for colposcopy due to PAP ASCUS and HPV positive documented in this encounter Plan of Treatment DateTypeDepartmentCare Team (Latest Contact Info)Rqsgtpskrph43/13/2025 10:50 AM ESTRoutine [facility] [address] [place] [phone] Karla Matthews PA [address] [place] [address] documented as of this encounter Visit Diagnoses Not on filedocumented in this encounter
--- OUTSIDE RECORDS SUMMARY | 2024-12-22 06:56 | XMS_ITS | CCD ---
Author Organization [facility] Inform ion Partnership [facility] Care Team Providers Care Wood Room Hand Name Role Phone Scar Bellamy Primary Care [...] Addie Hernandez Unavailable JUICE Swanson Attending Provider [phone] Linda Swanson Unavailable JUICE Altman Attending Provider [phone] NON STAFF Primary Care Provider Unavailabl e [...] NO PCP, NO PCP Primary Care Unavailable No Pcp, No Pcp Primary Care Provider Unavailabl e No Pcp, No Pcp Primary Care Provider Unavailabl e HA BAKER Attending Unavailable ALLEN CARR Attending Unavailable ALLEN CARR Referring Unavailable ALLEN CARR Attending Unavailable HA BAKER Attending Unavailable CARYN LOPEZ Attending Unavailable HA BAKER Attending Unavailable HA BAKER R Referring Unavailable NO PCP, NO PCP Primary Care Unavailable KENJI PLASCENCIA Attending Unavailable HA BAKER R Referring Unavailable NO PCP, NO PCP Primary Care Unavailable Allergies Allergy ClassificationReported Allergen(s)Allergy TypeDate of OnsetReaction(s) FacilitySulfonamides (antibiotic) (1 source)Sulfonamides (Antibiotic)Drug Wrhnggn51-22-6338[facility]pxzOilmqst[facility] (6 sources)Erythromycin / sulfiSOXAZOLEDrug Ejuhjuv61-74-2285bpeqZfiAccess [facility] (1 source)Sulfonamides (Antibiotic)Drug allergy (disorder)07-36-0750[facility] (20 sources)Substance with sulfonamide structure and antibacterial mechanism of action (substance)Drug sjewdok80-32-7928sixi, OtherWilmot RamTiger [employer] Other (6 sources)sulfiSOXAZOLE; Translations: [sulfisoxazole]Drug Ontqcgp32-14-8989 [facility] (8 sources)Sulfonamides (Antibiotic); Translations: [Sulfa (Sulfonamide Antibiotics)]Allergy to pwwdvrdne98-62-4958ndsfYruefmhlqTriHealth (6 sources)erythromycin base; Translations: [erythromycin base]Allergy to jbizkluik33-92-0799yrvjZofunbziqTr[facility] (20 sources)Sulfamethoxazole; Translations: [SULFAMETHOXAZOLE]Propensity to adverse rzhryfmnd18-25-5016LzazUBKK [facility] (20 sources)OtherAllergy to dpqlyohot03-27-6192Zqlk, [facility] [employer] [facility] Work Phone: (5 sources)Erythromycin / sulfiSOXAZOLE; Translations: [ERYTHROMYCIN-SULFISOXAZOLE]Drug Cyqhveg91-92-3252ShekCuvOisyls Repository (3 sources)SulfamethoxazoleDrug Gdniwot81-27-5175BaadMilAyuxxp Health System Medications Current Medications MedicationDrug Class(es)DatesSig (Normalized)Sig (Original)Albuterol (2 sources)beta2-Adrenergic AgonistStart: 63-04-8019Hlertqhys Sulfate Active 2 INH INHALATION EVERY 4-6 HOURS 6.7 14 November 20, 2023 12:00amamoxicillin 875 mg / clavulanate 125 mg oral tablet (1 source)Penicillin-class AntibacterialStart: 13-07-6638nnmd 1 tablet by mouth every twelve hoursAmoxicillin-Pot Clavulanate 875-125 MG 1 tablet Orally every 12 hrs for 10 day(s) Jul, Activeaspirin 81 mg delayed release oral tablet (3 sources)Platelet Aggregation Inhibitor, Nonsteroidal Anti-inflammatory Drug take 1 tablet by mouth in the morningaspirin 81 mg Take 1 tablet (81 mg total) by mouth in the morning. Activebisacodyl 10 mg rectal suppository (12 sources)Stimulant LaxativeStart: 10-08-2024 End: 96-43-3676kxlpcnjjw (Dulcolax) 10 MG suppository Indications: Constipation, unspecified constipation type UNWRAP AND INSERT 1 SUPPOSITORY RECTALLY DAILY FOR 10 DAYS 10 suppository 10/11/2024 WqkhyeXrhpmnhqxdsyrzr-Rbooinubp-Vx (Bromfed Dm) 2-30-10 mg/5 mL syrup (2 sources)Start: 53-29-0615uzzb 1 mL by mouth every four to six hours Ccaugulvuzbogsl-Qkaxnohog-Fh (Bromfed Dm) 2-30-10 mg/5 mL syrup Active 10 ML PO EVERY 4-6 HOURS Sept2023 12:00amciprofloxacin 0.003 mg/mg ophthalmic ointment (2 sources)Quinolone AntimicrobialStart: 81-21-8730Jlidwpf 0.3 % 1 application into the lower eyelid of affected eye left eye Twice a day for 7 days Jan, Activedocusate sodium 100 mg oral capsule (5 sources)Start: 10-08-2024 End: 50-89-5621aqwe 1 capsule by mouth twice daily as needed for constipation docusate sodium (Colace) 100 MG capsule Indications: Constipation, unspecified constipation type Take 1 capsule (100 mg) by mouth 2 (two) times a day as needed for constipation 30 capsule 5 10/08/2024 11/07/2024 Activefluticasone propionate 0.05 mg/actuat metered dose nasal spray (20 sources)CorticosteroidStart: 84-71-9186eeip 2 spray(s) nasal route once dailyFluticasone Propionate 50 MCG/ACT 2 sprays Nasally Once a day for 14 day(s) Jul, Activetake 1 spray(s) nasal route in the morningfluticasone propionate (FLONASE) 50 mcg/actuation nasal spray Administer 1 spray into each nostril in the morning. Activetake 1 spray(s) nasal route once dailyfluticasone (Flonase) 50 MCG/ACT nasal spray Administer 1 spray into each nostril Daily Shake gently. Before first use, prime pump. After use, clean tip and replace cap. Activelevothyroxine sodium 0.3 mg oral tablet (20 sources)l-ThyroxineStart: 10-08-2024 End: 65-52-1489scyx 1 tablet by mouth before mealtimelevothyroxine (Synthroid) 25 MCG tablet Indications: History of hyperthyroidism Take 1 tablet (25 mcg) by mouth in the morning. Take before meals. 30 tablet 11 11/08/2024 11/08/2025 ActiveStart: 12-28-2022 End: 69-48-7425ozux 1 tablet by mouth once dailySynthroid 300 MCG tablet Indications: Alfredo's disease , Thyroid disease during , first trimester (HCC) Take 1 tablet (300 mcg) by mouth Daily 90 tablet 1 11/11/2024 05/10/2025 ActiveStart: 38-83-7961lvpb 2 tablets by mouth once dailySYNTHROID 125 mcg tablet Take 2 tablets by mouth once daily. 60 tablet 11 07/03/2018 Activetake 1.5 tablets by mouth in the morninglevothyroxine (SYNTHROID, LEVOTHROID) 200 MCG tablet Take 1.5 tablets (300 mcg total) by mouth in the morning. Activetake 1 tablet by mouth once daily in the morningSynthroid 300 MCG 1 tablet in the morning on an empty stomach Orally Once a day for 30 days ActiveSynthroid 200 MCG Oral for 30 Days ActiveComment on above:Take 2 tablets by mouth once daily.Magnesium Oxide (1 source)Magnesium Oxide 400 (240 Mg) MG TAKE 1 TABLET BY MOUTH ONCE DAILY NEEDED FOR 30 DAYS Oral for 30Days ActivemethylPREDNISolone 4 mg oral tablet (2 sources)CorticosteroidStart: 73-48-6285lcia 1 tablet by mouth once Methylprednisolone (Medrol (Maximus)) 4 mg tablets,dose pack Active 0 PO per package directions November 20, 2023 12:00am PO PER PKG DIRpolyethylene glycol 3350 44415 mg powder for oral solution (1 source)Osmotic LaxativeStart: 09-02-2024 End: 27-64-4812ngzuvcqiwyqc glycol (GLYCOLAX) 17 gram packet Take 17 g by mouth in the morning for 90 days. 90 packet 09/02/2024 12/01/2024 Activeprenatal 25/iron fum/folic/dha (-1 ORAL) (3 sources) 25/iron fum/folic/dha (-1 ORAL) Take by mouth. ActivePrenatal Adult Gummy/DHA/FA 0.4-25 MG (1 source) Adult Gummy/DHA/FA 0.4-25 MG CHEW AND SWALLOW 1 BY MOUTH ONCE DAILY FOR 30 DAYS Oral for 30 Days ActivePrenatal Vit-Fe Fumarate-FA ( Vitamins) 28-0.8 MG tablet (17 sources)Start: 08-26-2024 End: 91-53-2194rrsh 1 tablet by mouth once dailyPrenatal Vit-Fe Fumarate-FA ( Vitamins) 28-0.8 MG tablet Indications: Positive urine test ([facility]) Take 1 tablet by mouth Daily 30 tablet 3 08/26/2024 08/26/2025 Active promethazine hydrochloride 12.5 mg oral tablet (5 sources)PhenothiazineStart: 10-08-2024 End: 91-07-8408znag 1 tablet by mouth every four hourspromethazine (Phenergan) 12.5 MG tablet Indications: Nausea and vomiting in ([facility]) Take 1 tablet (12.5 mg) by mouth every 4 (four) hours 60 tablet 1 10/08/2024 11/07/2024 Active Completed/Discontinued Medications MedicationDrug Class(es)DatesSig (Normalized)Sig (Original)dextromethorphan hydrobromide 15 mg / guaiFENesin 400 mg / pseudoephedrine hydrochloride 60 mg oraltablet (5 sources)alpha-Adrenergic Agonist, Uncompetitive R-elppdp-X-aspartate Receptor Antagonist, Sigma-1 AgonistStart: 04-18-2023 End: 02-82-7977btul 4 tablets by mouth every twenty-four hours Xaxzfgtoradntfa-Md-Bknfyrrupbk (Capmist Dm) 60-15-400 mg tablet Discontinued 1 TAB PO EVERY 4-6 HOURS April 18, 2023 1:00am October 10, 2023 5:46pm do not exceed 4 doses per 24 hrslevonorgestrel 0.005082 mg/hr intrauterine system (19 sources)Progestin, Progestin-containing Intrauterine DeviceStart: 12-26-2022 End: 83-22-0343Zwogijneadgkhr intrauterine device 52 mgnitrofurantoin, macrocrystals 25 mg / nitrofurantoin, monohydrate 75 mg oral capsule (6 sources)Nitrofuran AntibacterialStart: 09-23-2024 End: 37-42-0109mlzw 1 capsule by mouth in the morningnitrofurantoin, macrocrystal-monohydrate, (Macrobid) 100 MG capsule Indications: UTI symptoms Take 1 capsule (100 mg) by mouth in the morning and 1 capsule (100 mg) before bedtime. Do all this for 7 days. 14 capsule 09/23/2024 10/08/2024 Discontinued Start: 10-10-2023 End: 81-13-2621nemy 1 capsule by mouth every twelve hours at mealtime Nitrofurantoin Monohyd/M-Cryst (Macrobid) 100 mg capsule Discontinued 100 MG PO Every 12 hours 2023 12:00am November 20, 2023 1:06pm must administer with a meal/foodondansetron 4 mg disintegrating oral tablet (10 sources)Serotonin-3 Receptor AntagonistStart: 08-26-2024 End: 58-57-7051luap 1 tablet by mouth every six hours as needed for nausea and vomiting and nausea and nauseaondansetron ODT (Zofran-ODT) 4 MG disintegrating tablet Indications: Nausea Take 1 tablet (4 mg) bymouth every 6 (six) hours if needed for nausea or vomiting 30 tablet 2 08/26/2024 10/08/2024 ExpiredStart: 65-57-5317pyyg 1 tablet by mouth every eight hours as neededOndansetron HCl 8 MG 1 tablet Orally every 8 hours as needed for 7 days Mar, Activetake 1 tablet by mouth every eight hours as needed for nausea and vomitingondansetron (ZOFRAN) 4 mg tablet Take 1 tablet (4 mg total) by mouth every 8 (eight) hours as needed for nausea or vomiting. ActiveOndansetron 4 MG Oral for 8 Days Active phenazopyridine hydrochloride 200 mg oral tablet (4 sources)Start: 10-10-2023 End: 20-19-1281aubs 1 tablet by mouth three times dailyPhenazopyridine (Pyridium) 200 mg tablet Discontinued 200 MG PO Three times daily 9 October 10, 2023 12:00am November 20, 2023 1:06pmphentermine hydrochloride 37.5 mg oral tablet (8 sources)Sympathomimetic Amine AnorecticStart: 05-03-2023 End: 99-14-2974eurr 1 tablet by mouth before mealtimephentermine (Adipex-P) 37.5 MG tablet Indications: Encounter for weight management Take 1 tablet (37.5 mg) by mouth in the morning. Take before meals. 90 tablet 08/07/2023 03/26/2024 Discontinued (Other)Pneumatic Walking Boot (3 sources)Start: 73-08-6885Yxzvylcgi Walking Boot Nov, Not-TakingStart: 79-93-3428Jhelqrrps Walking Boot Nov, Active Problems Active Problems Problem ClassificationProblemDateDocumented DateEpisodic/ChronicAllergic reactions (20 sources)Atopic dermatitis; Translations: [Atopic dermatitis, unspecified] Onset: 200112-50-7216PjdvhveHtajhe (20 sources)Asthma; Translations: [Unspecified asthma, uncomplicated]Onset: 930853-41-5673WflqurkJkhzahh obstructive pulmonary disease and bronchiectasis (2 sources)Bronchitis; Translations: [Bronchitis, not specified as acute or chronic]38-77-6732KyczuakhQzczpsayftvxx symptoms and ill-defined conditions (1 source)Dysuria; Translations: [Dysuria]Onset: 66-12-4859PgatdkqcQgkigxji; including migraine (20 sources)Cluster headache; Translations: [Cluster headache syndrome, unspecified, not intractable]Onset: 643539-88-8310XbebhrrErxnafkblodr; infection of eye (except that caused by tuberculosis or sexually transmitteddisease) (1 source)Hordeolum externum left upper eyelidEpisodicJoint disorders and dislocations; trauma-related (20 sources)Chondromalacia of patella; Translations: [Chondromalacia patellae, unspecified knee]Onset: 968688-96-2714OkbnjapJzkovrspd disorders (20 sources)Missed period; Translations: [Irregular menstruation, unspecified] Onset: 563758-05-2379PkzsioxRunxwfhcloo deficiencies (4 sources)Vitamin D deficiency; Translations: [Vitamin D deficiency, unspecified]36-98-2176GgpadgfGopvo aftercare (1 source)Encounter for other specified aftercare; Translations: [Encounter for other specified aftercare]Onset: 47-10-0220CtvingeuJtciq complications of (20 sources)Maternal obesity complicating , childbirth and the puerperium, antepartum; Translations: [Obesity complicating , unspecified trimester]Onset: 389041-26-5808FxcreszNjvld complications of (4 sources)Thyroid disease in ; Translations: [Endocrine, nutritional and metabolic diseases complicating , first trimester]08-09-2024 EpisodicOther complications of (2 sources)Vomiting of , unspecified; Translations: [Unspecified vomiting of , unspecified as to episode of care or not applicable] 20-12-6531KxfufzgoNhanu complications of (2 sources)Hypothyroidism in ; Translations: [Endocrine, nutritional and metabolic diseases complicating , second trimester]12-13-2024 EpisodicOther female genital disorders (2 sources)Vaginal discharge; Translations: [Other specified noninflammatory disorders of vagina]94-29-1438EpclfiolOqlvb gastrointestinal disorders (3 sources)Constipation; Translations: [Constipation, unspecified]Onset: 859534-77-7566AbhitkziTrmyv gastrointestinal disorders (1 source)Constipation, unspecified; Translations: [Constipation, unspecified] Onset: 37-83-6298IdobifqwYuulc injuries and conditions due to external causes (1 source)Injury, unspecified, initial encounterEpisodicOther lower respiratory disease (2 sources)Cough; Translations: [Cough]94-74-1203PemdzibuClnli nutritional; endocrine; and metabolic disorders (1 source)Obesity; Translations: [Obesity, unspecified]Onset: 11-16-2017 37-57-0893SadjzfeBstjc nutritional; endocrine; and metabolic disorders (20 sources)Body mass index 30+ - obesity; Translations: [Obesity, unspecified] Onset: 755368-93-8039UnvrpfvBhxnz nutritional; endocrine; and metabolic disorders (2 sources)Severe obesity; Translations: [Class 3 severe obesity due to excess calories without serious comorbidity with body mass index (BMI) of 40.0 to 44.9 in adult [place]99-93-9030ZtjtlcrFaimh nutritional; endocrine; and metabolic disorders (4 sources)H/O: hyperthyroidism; Translations: [Personal history of other endocrine, nutritional and metabolicdisease]59-78-9935HcrbjayyOuvjf and delivery including normal (20 sources)Encounter for supervision of normal , unspecified, second trimester; Translations: [Encounter for supervision of normal , unspecified, unspecified trimester]Onset: 11-28-2017 Resolved: 76-02-8089ZzqblinvNndca screening for suspected conditions (not mental disorders or infectious disease) (8 sources)Encounter for screening for malignant neoplasm of cervix; Translations: [Patient encounter status]Onset: 35-55-6124MdntplrkTrudu upper respiratory disease (20 sources)Allergic rhinitis; Translations: [Allergic rhinitis, unspecified] Onset: 222530-95-8183QqattbdUmmkoxeu codes; unclassified (1 source)20 weeks gestation of ; Translations: [20 WEEKS GESTATION OF ]Onset: 02-51-6883BtoludtqQtsudbwm codes; unclassified (2 sources)Gestation period, 13 weeks; Translations: [13 weeks gestation of ]98-16-6194XgwmzxxkZmoarink codes; unclassified (1 source)9 weeks gestation of ; Translations: [9 weeks gestation of ]Onset: 73-42-5248NeycjyngEgipuzdb codes; unclassified (2 sources)Gestation period, 17 weeks; Translations: [17 weeks gestation of ]17-18-5667IypxlwkaJuhkiwen codes; unclassified (1 source)Gestation period, 22 weeks; Translations: [22 weeks gestation of ]89-99-3104EmyioymzCkgdusb and strains (1 source)Sprain of unspecified ligament of left ankle, initial encounter EpisodicThyroid disorders (20 sources)Congenital hypothyroidism without goiter; Translations: [Congenital hypothyroidism without goiter]Onset: 836793-16-8910NpuxbkjOxmjefowayfe (1 source)Cough, unspecified; Translations: [Cough, unspecified]Onset: 76-46-2126Hdcnfccypkxo (1 source)Injury, unspecified, initial encounter; Translations: [Injury, unspecified, initial encounter]Onset: 46-18-9444Hxywemgyhgrt (20 sources)Unable to comply with treatment; Translations: [Unable to comply with treatment]Onset: 706995-21-0204Daamrhfwethq (1 source)Wound CheckOnset: 23-86-1903Bdweueqneuyp (1 source)Constipated - 9 Weeks Onset: 75-69-0376Yekotvk tract infections (6 sources)Acute urinary tract infection; Translations: [Urinary tract infection, site not specified]06-53-1884QkjtjerzYssyj infection (5 sources)Viral infection, unspecified; Translations: [Disease caused by 2019-nCoV]Episodic Past or Other Problems Problem ClassificationProblemDateDocumented DateEpisodic/ChronicAcute bronchitis (20 sources)Acute bronchitis; Translations: [Acute bronchitis, unspecified] Onset: 290142-85-6632EpycwpwpMciifuehuaplm and procreative management (20 sources)Patient encounter status; Translations: [Encounter for removal of intrauterine contraceptive device]Onset: 268805-20-0760DrulwxzqVymbncnquh and other anemia (20 sources)Anemia; Translations: [Anemia, unspecified]Onset: 07-26-2022 22-42-7770SqxjiwwdGdsbkpyubksk complicating ; childbirth and the puerperium (20 sources)-induced hypertension; Translations: [Gestational [-induced] hypertension withoutsignificant proteinuria, unspecified trimester]Onset: 04-29-2018 Resolved: 780036-88-1874KzkjsizbEhvtqyzppoupv and screening for infectious disease (20 sources)Contact with and (suspected) exposure to other viral communicable diseases; Translations: [Contact with or exposure to other viral diseases]Onset: 37-20-0911VmvqfnpsPpaud complications of (20 sources)Anemia of ; Translations: [Anemia complicating , unspecified trimester]Onset: 04-24-2018 Resolved: 728749-05-6200UxhljwsZeghl upper respiratory infections (20 sources)Acute sinusitis, unspecified; Translations: [Acute pharyngitis] Onset: 53-77-7757Mtmlgcio Results Test NameValueInterpretationReference RangeFacilityColposcopyon 13-36-4668Cokxy SaludperryNARCISO 12/12/2024 10:24 AM Colposcopy Date/Time: 12/12/2024 10:08 [...] and paperwork completed: yes Educational handouts given: noNOMS HealthcareNOMS HealthcareUrinalysis macro (dipstick) panel (U)on 33-83-5365Jorrgbbdw, UANegativeNegative - 4(70) +++ mg/dL [facility] HealthcareBlood, UANegativeNegative - 50 John/mcLNOMS HealthcareClarity, UA ClearNOMS HealthcareColor, UAYellowNOMS HealthcareGlucose, UANegativeNegative - 2000(110) ++++ mg/dLNOMS HealthcareInterpretation and review of laboratory resultsAbnormalNOMS HealthcareKetones, UAPositiveNegative - 160(16) ++++ mg/dL [facility] HealthcareLeukocytes, UANegativeNegative - 500+++ Anderson/mcLNOMS Healthcare Nitrite, UANegativeNegative - PositiveNOMS HealthcarepH, UA6.05 - 9NOMS HealthcareProtein, UATraceNegative - 2000(20) ++++ mg/dLNOMS HealthcareSpec Grav, UA1.0201 - 1.03NOMS HealthcareUrobilinogen, UA2.00.2 - 12 mg/dLNOMS HealthcareNOCT HealthcareIGP,APTIMA HPV,AGE GDLNon 08-44-2900VZX GDLN ACOG TESTINGNote.NOMS HealthcareComment on above:TESTS RESULT FLAG UNITS REF RANGE LAB Clinician Provided Cytology Information Source.............Endocervix Other.............. No. of containers..01 ThinPrep Vial Age Algo ACOG Berenice... 30-65 FLAG LEGEND: L-Low Normal,H-High Normal,LL-Alert Low,HH-Alert High <-Panic Low,>-Panic High,A-Abnormal,AA-Critical Abnormal Performed at: 01 =G [address] [address] Yi Martin MD, HPV APTIMAPositiveAbnormalNegativeSAN JUAN HOS[facility]ITAL HealthcareComment on above:This nucleic acid amplification test detects fourteen high- risk HPV types (16,18,31,33,35,39,45,51,52,56,58,59,66,68) without differentiation. Performed at: =G [facility] [id number] Study Abroad Coordinator: Yi Martin MD, Phone: [phone] Performed at: [facility] [address] [facility], [place], [place] [id number] Study Abroad Coordinator: Yi Martin MD, Phone: [phone] IGP, APTIMA HPV, RFX 16/18,45NoteAbnormal.NOMS HealthcareComment on above:TESTS RESULT FLAG UNITS REF RANGE LAB DIAGNOSIS: [A] 02 EPITHELIAL CELL ABNORMALITY. ATYPICAL SQUAMOUS CELLS OF UNDETERMINED SIGNIFICANCE (ASC-US). Recommendation: [A] 02 Suggest follow up as clinically appropriate. Specimen adequacy: 02 Satisfactory for evaluation. No endocervical component is identified. Performed by: Abdulkadir Bunn, Shared Services Representative (ASC) Electronically si... 02 Poppy Joyner MD, Pathologist . 02 Pathologist ICD10: 02 R87.610 Note: Note 02 The Pap smear is a screening test designed to aid in the detection of premalignant and malignant conditions of the uterine cervix. It is not a diagnostic procedure and should not be used as the sole means of detecting cervical cancer. Both false-positive and false-negative reports do occur. Test Methodology: Note 02 This liquid based ThinPrep(R) pap test was screened with the use of an image guided system. HPV Genotype Reflex Note 02 Criteria not met, HPV Genotype not performed. FLAG LEGEND: L-Low Normal,H-High Normal,LL-Alert Low,HH-Alert High <-Panic Low,>-Panic High,A-Abnormal,AA-Critical Abnormal Performed at: [address] [facility] [address] [place] [address] Yi Martin MD, Interpretation and review of laboratory resultsAbnormalNOCT Healthcare SPATULA-ALONE ENDOCERVIX CLINISYNCNOMS HealthcareRECURRENT VAGINITIS (HTRX)on 00-71-6582LMIOCSSRG VAGINAE 0NOMS HealthcareATOPOBIUM VAGINAENot detectedNOMS HealthcareBVAB 2,3 (BACTERIAL VAGINOSIS ASSOCIATED BACTERIA 2, 3); MOBILUNCUS BOD2NXFN HealthcareBVAB 2,3 (BACTERIAL VAGINOSIS ASSOCIATED BACTERIA 2, 3); MOBILUNCUS SPPNot detectedNOMS HealthcareCANDIDA ALBICANS, PARAPSILOSIS, [id number] HealthcareCANDIDA ALBICANS, PARAPSILOSIS, TROPICALISNot detectedNOMS HealthcareCANDIDA GLABRATA0 NOMS HealthcareCANDIDA GLABRATANot detectedNOMS HealthcareCANDIDA [id number] HealthcareCANDIDA KRUSEINot detectedNOMS HealthcareCHLAMYDIA [id number] HealthcareCHLAMYDIA TRACHOMATISNot detectedNOMS HealthcareGARDNERELLA VAGINALIS0 NOMS HealthcareGARDNERELLA VAGINALISNot detectedNOMS HealthcareMEGASPHAERA (TYPES 1, 2)0NOMS HealthcareMEGASPHAERA (TYPES 1, 2)Not detectedNOMS Healthcare MYCOPLASMA [id number] HealthcareMYCOPLASMA GENITALIUMNot detectedNOMS HealthcareNEISSERIA [id number] HealthcareNEISSERIA GONORRHOEAENot detected NOMS HealthcareTRICHOMONAS [id number] HealthcareTRICHOMONAS VAGINALISNot detectedNOMS HealthcareNOMS HealthcareUrinalysis macro (dipstick) panel (U)on 13-48-0535Krzbakymm, UANegativeNegative - 4(70) +++ mg/dLNOMS HealthcareBlood, UANegativeNegative - 50 John/mcLNOMS HealthcareClarity, UAClearNOMS Healthcare Color, UAStrawNOMS HealthcareGlucose, UANegativeNegative - 2000(110) ++++ mg/dL NOMS HealthcareInterpretation and review of laboratory resultsAbnormalNOCT HealthcareKetones, UANegativeNegative - 160(16) ++++ mg/dLNOMS Healthcare Leukocytes, UANegativeNegative - 500+++ Anderson/mcLNOMS HealthcareNitrite, UA NegativeNegative - PositiveNOMS HealthcarepH, UA65 - 9NOMS HealthcareProtein, UA PositiveNegative - 2000(20) ++++ mg/dLNOMS HealthcareSpec Grav, UA1.0151 - 1.03 NOMS HealthcareUrobilinogen, UA1.00.2 - 12 mg/dLNOMS HealthcareNOMS Healthcare Urinalysis macro (dipstick) panel (U)on 30-84-5478Tvecvvqtq, UANegativeNegative - 4(70) +++ mg/dLNOCT HealthcareBlood, UANegativeNegative - 50 John/mcLNOCT HealthcareClarity, UAClearNOMS HealthcareColor, UAStrawNOCT HealthcareGlucose, UANegativeNegative - 2000(110) ++++ mg/dLNOCT HealthcareInterpretation and review of laboratory resultsNormalNOCT HealthcareKetones, UANegativeNegative - 160(16) ++++ mg/dLNOCT HealthcareLeukocytes, UANegativeNegative - 500+++ Anderson/mcL NOMS HealthcareNitrite, UANegativeNegative - PositiveNOMS HealthcarepH, UA65 - 9 NOMS HealthcareProtein, UANegativeNegative - 2000(20) ++++ mg/dLNOMS Healthcare Spec Grav, UA1.0151 - 1.03NOCT HealthcareUrobilinogen, UA1.00.2 - 12 mg/dLNOCT HealthcareNOCT HealthcareGLUCOSE TOLERANCE 3 HOURon 72-95-7813CYPOKWV TOLERANCE 3 HOURmg/dLNOCT HealthcareComment on above:GLU FAST 86 (<95) Col: 10/03/24 1024 GLU 1HR 161 (<180) Col: 10/03/24 1122 GLU 2HR 124 (<155) Col: 10/03/24 1224 GLU 3HR 124 (<140) Col: 10/03/24 1325 CLINISYNCNOCT HealthcareALL CBC WITH AUTO DIFFon 68-27-7918ONSOGLHSF ABSOLUTE AUTO0.1NOMS HealthcareBasophils/100 WBC (Bld)0.5 %0.2 - 2.0 %[facility] Eosinophils/100 WBC (Bld)2 %0.9 - 7.0 %NOMS HealthcareErythrocyte distribution width (RBC) [Ratio]12.7 %11.0 - 15.0 %[facility] HospitalHematocrit (Bld) [Volume fraction]36.6 %36.0 - 48.0 %[facility] HospitalHemoglobin (Bld) [Mass/Vol]12.5 g/dL 12.0 - 16.0 g/dLRay County Memorial HospitalIMMATURE GRANULOCYTES ABS AUTO0.04HighNOSamaritan HospitalImmature granulocytes/100 WBC (Bld)0.4 %0.0 - 0.5 %[facility] Interpretation and review of laboratory resultsAbnormalRay County Memorial Hospital LYMPHOCYTES ABSOLUTE AUTO2.8NOSamaritan HospitalLymphocytes/100 WBC (Bld)29.9 %20.5 - 60.0 %[facility] HospitalMCH (RBC) [Entitic mass]28.7 pg26.7 - 34.0 pgDeaconess Incarnate Word Health SystemHC (RBC) [Mass/Vol]34.2 g/dL29.9 - 35.2 g/dLRay County Memorial HospitalMCV (RBC) [Entitic vol]83.9 fL81.0 - 99.0 fLRay County Memorial HospitalMONOCYTES ABSOLUTE AUTO0.5NOMS HealthcareMonocytes/100 WBC (Bld)5.2 %1.7 - 12.0 %[facility] HospitalNEUTROPHILS ABSOLUTE AUTO5.9NOMS [facility] Memorial HospitalNeutrophils/100 WBC (Bld)62 %43.0 - 75.0 %[facility] HospitalPlatelet mean volume (Bld) [Entitic vol]10.8 fL9.5 - 13.5 fLRay County Memorial HospitalTB EO #0.2NOMS [facility] Memorial HospitalTB [id number] [facility] RBC4.36NOMS [facility] WBC9.5NOSamaritan HospitalCLINISYNCNSaint John's Saint Francis HospitalALL CBC WITH AUTO DIFFon 08-23-2850PNPZEJXLE ABSOLUTE AUTO0.1NOMS HealthcareBasophils/100 WBC (Bld)0.5 %0.2 - 2.0 %[facility] HospitalEosinophils/100 WBC (Bld)1.2 %0.9 - 7.0 % [facility] HospitalErythrocyte distribution width (RBC) [Ratio]12.6 %11.0 - 15.0 % [facility] HospitalHematocrit (Bld) [Volume fraction]36.8 %36.0 - 48.0 %[facility] HospitalHemoglobin (Bld) [Mass/Vol]12.6 g/dL12.0 - 16.0 g/dLRay [facility] Hospital IMMATURE GRANULOCYTES ABS AUTO0.05HighNOSamaritan HospitalImmature granulocytes/100 WBC (Bld)0.4 %0.0 - 0.5 %[facility] HospitalInterpretation and review of laboratory resultsAbnormMeadville Medical CenterLYMPHOCYTES ABSOLUTE AUTO3.3NOSamaritan Hospital Lymphocytes/100 WBC (Bld)28.5 %20.5 - 60.0 %[facility] Word Health SystemH (RBC) [Entitic mass]28.8 pg26.7 - 34.0 pgDeaconess Incarnate Word Health SystemHC (RBC) [Mass/Vol]34.2 g/dL29.9 - 35.2 g/dLDeaconess Incarnate Word Health SystemV (RBC) [Entitic vol]84 fL81.0 - 99.0 fLRay County Memorial HospitalMONOCYTES ABSOLUTE AUTO0.6NOSamaritan HospitalMonocytes/100 WBC (Bld)5.5 % 1.7 - 12.0 %[facility] HospitalNEUTROPHILS ABSOLUTE AUTO7.4HighRay County Memorial Hospital Neutrophils/100 WBC (Bld)63.9 %43.0 - 75.0 %[facility] HospitalPlatelet mean volume (Bld) [Entitic vol]10.9 fL9.5 - 13.5 fLRay County Memorial HospitalTB EO #0.1NOMS Healthcare TBH [id number] John's [facility]ree[facility] RBC4.38NOMS [facility] WBC11.5HighRay County Memorial HospitalCLINISYNCNSaint John's Saint Francis HospitalHCG ( test) Ql (U)on 09-05-2024 Interpretation and review of laboratory resultsAbnormMeadville Medical CenterPreg Test, UrPositiveNegativeScotland County Memorial Hospital HealthcareUS OB TRANSVAGINALon 09-05-2024 OB TRANSVAGINALFINDINGS: A single intrauterine gestational sac is present. [...] 11, 2025. TRANSCRIBED BY: ELECTRONICALLY SIGNED BY: Kathleen SternNot AvailableComment on above:Order Comment: US OB TRANSVAGINAL No LMP recorded.Urinalysis macro (dipstick) panel (U)on 81-48-3648Cwcejumfm, UA NegativeNegative - 4(70) +++ mg/dLNOMS HealthcareBlood, UANegativeNegative - 50 John/mcLNOCT HealthcareClarity, UAClearNOMS HealthcareColor, UAYellowNOMS HealthcareGlucose, UANegativeNegative - 2000(110) ++++ mg/dLNOCT Healthcare Interpretation and review of laboratory resultsNormalNOCT HealthcareKetones, UA NegativeNegative - 160(16) ++++ mg/dLSAN JUAN HOSPITAL HealthcareLeukocytes, UANegative Negative - 500+++ Anderson/mcLNOCT HealthcareNitrite, UANegativeNegative - Positive NOMS HealthcarepH, UA65 - 9NOMS HealthcareProtein, UANegativeNegative - 2000(20) ++++ mg/dLNOCT HealthcareSpec Grav, UA1.021 - 1.03NOMS HealthcareUrobilinogen, UA1.00.2 - 12 mg/dLNOMS HealthcareNOMS HealthcarePOCT NURSING URINE MACROSCOPIC UAon 27-91-3783ELIZCTWZX NURNegativeNormalNegParkview Health Montpelier Hospital Comment on above:Performed By: #### NUM #### [facility] [address] [place] [address] VIRBLOOD/HGB NURTraceAbnormalNegParkview Health Montpelier HospitalComment on above:Performed By: #### NUM #### [facility] [address] [place] [address] VIRGLUCOSE NURNegativeNounc healthNegParkview Health Montpelier Hospital Comment on above:Performed By: #### NUM #### [facility] ([address] [place] [address] VIRKETONES NURNegativeNormalNegativeOhioHealth Comment on above:Performed By: #### NUM #### [facility] ([address] [place] [address] VIRLEUKOCYTE ESTERASE NURNegativeNormalNegativeOhioHealthComment on above:Performed By: #### NUM #### [facility] ([address] [address] VIRNITRITE NURNegativeNormalNegativeOhioHealth Comment on above:Performed By: #### NUM #### [facility] ([address] [address] VIRPH NUR6.3Nqofmv7.0, 6.0, 6.5, 7.0, 7.5, 8.0, 8.5, 5.5 OhioHealthComment on above:Performed By: #### NUM #### [facility] ([address] [address] VIRPROTEIN NURNegativeNounc healthNegParkview Health Montpelier Hospital Comment on above:Performed By: #### NUM #### [facility] ([address] [place] [address] VIRSPECIFIC GRAVITY ROX>=1.966Bwhpvjsz6.010, 1.015, 1.020, 1.025OhioHealthComment on above:Performed By: #### NUM #### [facility] ([address] [address] VIRUROBILINOGEN NUR0.2 E.U./dLNoDayton VA Medical Center Comment on above:Performed By: #### NUM #### [facility] ([address] [address] VIRPOCT , URINE (NUCG)on 74-97-5340Mypw HCG ( test) Ql (U)PositiveAbnormalNegative, IndeterminateProMedica Rector HospitalComment on above:Performed By: #### NUCG #### [facility] [address] [place] [address] VIRTBH PREG QUANT HCGon 41-59-3639ROD ATSJNZIOBNAG98725yNZ/mL NOMS HealthcareComment on above:5-50 0.2-1 WEEK 50-500 1-2 WEEKS 100-5,000 2-3 WEEKS 500-10,000 3-4 WEEKS 1,000-50,000 4-5 WEEKS 10,000-100,000 5-6 WEEKS 15,000-200,000 6-8 WEEKS 10,000-100,000 2-3 MONTHS CLINISYNCNOSamaritan HospitalTB PREG QUANT HCGon 29-19-6453HJW NZNGHFUYSAYC14336 mIU/mLNOMS HealthcareComment on above:5-50 0.2-1 WEEK 50-500 1-2 WEEKS 100-5,000 2-3 WEEKS 500-10,000 3-4 WEEKS 1,000-50,000 4-5 WEEKS 10,000-100,000 5-6 WEEKS 15,000-200,000 6-8 WEEKS 10,000-100,000 2-3 MONTHS CLINISYNCNOCT HealthcareIUD Removalon 29-80-7233Pdtnp BoresNARCISO 03/27/2024 12:35 PM IUD Removal Date/Time: 03/26/2024 1:59 PM Performed by: Ha Baker DO Authorized by: Ha Baker DO Consent: Consent obtained: Written Consent given by: Patient Procedure risks and benefits discussed: yes Patient questions answered: yes Patient agrees, verbalizes understanding, and wants to proceed: yes Educational handouts given: yes Instructions and paperwork completed: yes [place] protocol: Patient states understanding of procedure being [...] the office for annual exam unless needed otherwiseUNC Health ChathamNo Panel InformationOrdered By: Amanda Victoria on 47-18-9965BMQQE Antigen (POC)[facility] CenterQuick Strep (POC) [facility] CenterXR chest 2V*on 37-72-1719PD chest 2V*[facility] [place] [address] XRay Report Signed Patient: Brittnee Smith MR#: [id number] 11 : 1995 Acct:[id number] Age/Sex: 28 / F ADM Date: 11/20/23 [facility] Room: Type: [facility] Attending Dr: Amanda Victoria APRN Copies to: [...] Anda Jr., D.OMelisa11/20/2023 2:04 PM Dictation Location: [place] [address] Transcribed By: [facility] 11/20/23 1404 Dictated By: Shlomo De Anda Jr, DO 11/20/23 140 Signed By: 11/20/23 140[facility] Physician GroupLaboratory - Chemistry and Chemistry - challengeon 84-02-3589Rqgsxxhug Ql (U)[facility] CenterGlucose (U) [Mass/Vol][facility] Ketones Ql (U)NegativeOhiohealth Grant Medical CenterpH (U)7.0 [pH][facility] Health Bryan Hospitalpecific gravity (U) [Rel density]1.030Ohio[facility] Grant Medical CenterUrobilinogen (U) [Mass/Vol]0.2 mg/dLOhiohealth Grant Medical CenterLaboratory - Specimen informationon 36-06-6999Pbfmicjdro (U)cloudy [facility] CenterColor (U)yellowOhiohealth Grant Medical CenterLaboratory - Urinalysison 33-22-6455Cyzxmhcbq esterase Test strip Ql (U) smallOhiohealth Grant Medical CenterNitrite Ql (U)PositiveOhiohealth Grant Medical CenterProtein Ql (U)100[facility] CenterNo Panel Informationon 35-37-4729Dxdyv Occult BloodlargeOhiohealth Grant Medical Center Urine Cultureon 63-45-7983Znpvpxpi identified Cx Nom (U)ORGANISM: Escherichia coli (O:ESCCOL) [place] Count >100,000 Aerobic MEENA Charge (NMIC56) SUSCEPTIBILITY ORGANISM: O:ESCCOL ANTIBIOTIC INTERPRETATION MEENA Amikacin S <16 Amoxacillin/K Clavulanate S <8 Ampicillin S <8 Ampicillin/Sulbactam S <4 Aztreonam S <4 Cefazolin S <2 Cefepime S <2 Ceftazidime S <1 Ceftazidime/Avibactam S <4 Ceftolozane/Tazobactam S <2 Ceftriaxone S <1 Cefuroxime S <4 Ciprofloxacin S <0.25 Ertapenem S <0.5 Gentamicin S <2 Levofloxacin S <0.5 Meropenem S <1 Meropenem/Vaborbactam S <2 Nitrofurantoin S <32 Piperacillin/Tazobactam S <8 Tetracycline S <4 Tigecycline S <2 Tobramycin S <2 Trimethoprim/Sulfamethoxazole S <0.5 S = SUSCEPTIBLE I = [...] RESISTANT TO ALL B-LACTAM DRUGS. PERFORMED BY: [place] [id number] PATHOLOGIST AUTOMOTIVE MAINTENANCE TECHNICIAN ROXANNE DITERICH M.D.NormalCoral Gables Hospital Physician GroupComment on above:Performed By: #### CUU #### [facility] [address] [place] [address] USAUrine culture routineOrdered By: Diana Altman on 91-95-8721Sxekorvu identified Cx Nom (U)Escherichia coliAbnormalOhiohealth Grant Medical CenterNo Panel InformationOrdered By: Linda Swasnon on 53-48-7009WHGOJ/Influenza Antigen (POC)[facility] COVID/FLU/RSV RT-PCRon 28-33-9697GKXJ-CoV-2 (COVID-19) RNA NICHOLE+probe Ql (Unsp spec)NegativeWilmot RamTiger Fitness Other COVID/FLU/RSV RT-PCRNegativeWilmot RamTiger [employer]itness Other xr ankle LT min 3V*on 16-36-2098GX ankle LT min 3V* [facility] [employer] Other xr ankle LT min 3V*[facility] [employer] Other XR ankle LT min 3V*[address] [place] [address] [employer] Other xr ankle LT min 3V*[place] [id number] [employer] Other xr ankle LT min 3V*XRay ReportWilmot RamT[employer]itness Other xr ankle LT min 3V*SignedWilmot RamT[employer]itness Other xr ankle LT min 3V*Patient: Brittnee Smith MR#: [id number] [employer] Other XR ankle LT min 3V*11[facility] [employer] Other xr ankle LT min 3V*: 1995 Acct:[id number] [employer] Other xr ankle LT min 3V*Age/Sex: 27 / F ADM Date: 12/13/22 [employer] Other xr ankle LT min 3V*Loc: XDUCLY Room: Type: [facility] [employer] Other xr ankle LT min 3V*Attending Dr: Linda Swanson [facility] [employer] Other xr ankle LT min 3V*Copies to: Linda Swanson [facility] [employer] Other xr ankle LT min 3V*Ordering Provider: Linda Swanson [facility]OSPITALExactCost Other xr ankle LT min 3V*Date of Service: 12/13/22[facility] Medical CenterCleanAgents.com Other xr ankle LT min 3V* XR/XR ankle LT min 3V*: T14.90XAWilmot RamTiger Fitness Other xr ankle LT min 3V*LEFT ANKLE - 3 viewsWilmot RamTiger Fitness Other xr ankle LT min 3V*CLINICAL DATA: Patient fell down stairs injuring left ankle today. Generalized pain and swelling.[employer] Other xr ankle LT min 3V*COMPARISON: [facility] [employer] Other xr ankle LT min 3V*AP, lateral and oblique views were obtained. There is no evidence of fracture or dislocation. [facility] Regional HospitalExactCost Other xr ankle LT min 3V*talar dome is intact. A tiny plantar calcaneal spur is present. There is mild diffuse soft tissueWilmot RamTiger Fitness Other XR ankle LT min 3V*swelling, greater anteriorly.[employer] Other XR ankle LT min 3V* XR/XR ankle LT min 3V*[employer] Other XR ankle LT min 3V*IMPRESSION:[employer] Other XR ankle LT min 3V*NO ACUTE BONY INJURY.[employer] Other XR ankle LT min 3V*Impression dictated by: Brandy Shields M.D.12/13/2022 9:49 AMNcoxhealth RamT[employer] Other XR ankle LT min 3V*Dictation Location: [place] [address] [employer] Other XR ankle LT min 3V*Transcribed By: [facility] 12/13/22 [facility] [employer] Other XR ankle LT min 3V*Dictated By: Brandy Shields MD 12/13/[address] [place] [address] [employer] Other XR ankle LT min 3V*Signed By:[employer] Other XR ankle LT min 3V*12/13/22 [facility]Really [facility] Other XR ankle LT min 3V*[facility] Main [place] [address] [place] [address] XRay Report Signed Patient: Brittnee Smith MR#: [id number] [birth year] : 1995 Acct:[id number] Age/Sex: 27 / F ADM Date: 12/13/22 Loc: XDUCLY Room: Type: [facility] Attending Dr: Linda Swanson APRN Copies to: [...] Brandy Shields M.D.12/13/2022 9:49 AM Dictation Location: [place] [address] Transcribed By: [facility] 12/13/2249 Dictated By: Brandy Shields MD 12/13/2247 Signed By: 12/13/2249[facility] Physician GroupAFP MATERNAL FOR SPINA BIFIDAon 51-15-8460CIH MoM0.73[facility] Boardman HospitalComment on above:Result Comment: This is a corrected report. The previously reported result was: AFP MoM See interpretation. 06/29/2022erformed By: #### AFPMAT #### [facility] [address] [place] [address] [address] Cathleen Miner Value35.4 ng/mLNWayne HealthCare Main CampusComment on above: Performed By: #### AFPMAT #### [facility] [address] [place] [address] [address] Cathleen Miner, Serum for Spina BifidaCoMercy Health – The Jewish Hospital Comment on above:Result Comment: The MOM and risk factors of this report have been modified based on new information supplied to us by the client or their designated labor representative. The Weight was changed from Not provided. to 222. This is a corrected report. The previously reported result was: Results Report 06/29/2022erformed By: #### AFPMAT #### [facility] [address] [place] [address] [address] Cathleen HuertaSelect Medical Specialty Hospital [facility] ColumbusComascension standish hospital on above:Result Comment: Sameera Hollingsworth, Ph.D., [facility] Director . References: Available Upon Request. . Multiples Of Median Cutoffs For AFP Elevations Wolfe 2.5 Black 2.8 IDD 2.0 Twins 4.5 Abbreviation Definitions IDD - Insulin Dep Diabetes OSBR - Open Spina Bifida Risk . For further inquiries contact [employer] at [phone]. . This test was developed and its performance characteristics determined by [facility]. It has not been cleared or approved by the Food and Drug Administration.Performed By: #### AFPMAT #### [facility] [address] [place] [address] Dr. Cathleen Dailey Age Collection Date20.4 [facility] Comment on above:Performed By: #### AFPMAT #### [facility] [address] [place] [address] Dr. Cathleen GodwinGestat, Age Based onUltrasRegency Hospital ToledoComment on above:Result Comment: 20.4 on 06/27/2022 Recalculations are not recommended when gestational dating by LMP and ultrasound are within 10 days.Performed By: #### AFPMAT #### [facility] [address] [place] [address] Dr. Cathleen Navarrete Dep DiabetesNoNWayne HealthCare Main CampusComment on above:Performed By: #### AFPMAT #### [facility] [address] [place] [address] Dr. Cathleen GodwinInterpretationComProtestant Deaconess HospitalComment on above: Result Comment: Interpretation: Screen Negative . This result is screen [...] Customer Services to discuss available options. The [employer] [employer] recommends amniocentesis [...] age). Please call us with new clinical information.Performed By: #### AFPMAT #### [facility] [address] [place] [address] Dr. Cathleen Batista [facility] EDD[age] [facility] on above:Performed By: #### AFPMAT #### [facility] [address] [place] [address] Dr. Cathleen Bernal GestationCleveland Clinic FoundationComment on above: Performed By: #### AFPMAT #### [facility] [address] [place] [address] Dr. Cathleen AbbottBR Risk 1 [id number] Valley Hospital on above: Result Comment: This is a corrected report. The previously reported result was: OSBR Risk 1 IN See interpretation. 06/29/2022erformed By: #### AFPMAT #### [facility] [address] [place] [address] Dr. Cathleen Bhatt.[facility] Boardman HospitalComment on above:Performed By: #### AFPMAT #### [facility] [address] [place] [address] Dr. Cathleen NewbyucasiHenry County HospitalComment on above: Performed By: #### AFPMAT #### [facility] [address] [place] [address] Dr. Cathleen GodwinTest Results:NegativeNoParkview Health Montpelier Hospital on above: Result Comment: This is a corrected report. The previously reported result was: Test Results: See interpretation. 3Performed By: #### AFPMAT #### [facility] [address] [place] [address] Dr. Cathleen Maxwell B SURFACE ANTIGEN SCREENon 21-95-1896YIcGk ScreenNegative NormalNegativeThe [facility] on above:Performed By: #### HBSANS #### [facility] [address] [place] [address] Dr. Cathleen HearnTIS C VIRUS AB W/ REFLEX QUANTon 83-49-9786PEC AB Non-ReactiveNormalNon ReactiveThe [facility] HospitalComascension standish hospital on above:Performed By: #### HCVPCRR #### [place] [address] Dr[address] Cathleen GodwinInterpretation:CommentNoParkview Health Montpelier Hospital on above:Result Comment: Not infected with HCV unless early or acute infection is suspected (which may be delayed in an immunocompromised individual), or other evidence exists to indicate HCV infection.Performed By: #### HCVPCRR #### [facility] [address] [place] [address] Dr. Cathleen Ulrich 1 AND 2 WITH REFLEXon 02-46-4464NQA Screen 4th Generation wRfxNon-ReactiveNormalNon ReactiveThe [facility] on above:Result Comment: HIV Negative HIV-1/HIV-2 antibodies and HIV-1 p24 antigen were NOT detected. There is no laboratory evidence of HIV infection.Performed By: #### HIV12 #### [facility] [address] [place] [address] Dr. Cathleen GodwinRPPerry QUANTon 74-74-2653Cffrb Plasma Reagin, QuantNon-Reactive NormalNonRea<1:1The [facility] on above:Result Comment: Please Note: This test does not meet current guidelines for screening and diagnosis of syphilis. This test is intended for following treatment response in patients being treated for syphilis infection. To screen for syphilis infection, a reflex cascade that includes both RPR and a treponema-specific assay should be utilized, such as Treponema pallidum (Syphilis) Screening [place] (744690) or Rapid Plasma Reagin (RPR) Test With Reflex to Quantitative RPR and Confirmatory Treponema pallidum Antibodies (542756).Performed By: #### RPRQ #### [facility] [address] [place] [address] [address] Cathleen Ames AB IGGon 90-10-0004Efpbgnq Antibodies, IgG1.39 index NormalImmune >0.99The [facility] West HospitalComment on above:Result Comment: Non- immune <0.90 Equivocal 0.90 - 0.99 Immune >0.99Performed By: #### RUBIGG ####[facility] Llgxsgr[address] [place] [address]Dr. Cathleen Gibson AUTO DIFFon 52-49-1536EAIN # 0.0 103/ulNormal0.0-0.1The [facility] West HospitalComment on above:Performed By: #### CBC #### [facility] [address] [place] [address] Dr. Cathleen Larsonsophils/100 WBC (Bld)0.3 %Normal0.2-2.0[facility] Comment on above:Performed By: #### CBC #### [facility] [address] [place] [address] Dr. Cathleen Starkey #0.2 103/ulNormal0.0-0.7The [facility] HospitalComment on above: Performed By: #### CBC #### [facility] [address] [place] [address] Dr. Cathleen Colemanosinophils/100 WBC (Bld)1.3 %Normal0.9-7.0The [facility] Comment on above:Performed By: #### CBC #### [facility] [address] [place] [address] Dr. Cathleen Colemanrythrocyte distribution width (RBC) [Ratio]13.2 %Rbsrvd18.0-15.0 The [facility] HospitalComment on above:Performed By: #### CBC #### [facility] [address] [place] [address] [address] Cathleen GodwinHematocrit (Bld) [Volume fraction]32.9 %Critically low36.0-48.0 The [facility] HospitalComment on above:Performed By: #### CBC #### [facility] [address] [place] [address] [address] Cathleen GodwinHemoglobin (Bld) [Mass/Vol]11.3 g/dLCritically low12.0-16.0The [facility] HospitalComment on above:Performed By: #### CBC #### [facility] [address] [place] [address] [address] Cathleen GodwinIG #0.18 10e3/ulCritically high0.00-0.03The [facility] Comment on above:Performed By: #### CBC #### [facility] [address] [place] [address] Dr. Cathleen Larry %1.6 %Critically high0.0-0.5The [facility] HospitalComment on above:Performed By: #### CBC #### [facility] [address] [place] [address] [address] Cathleen Johns #2.6 103/ulNormal1.2-3.8The [facility] HospitalComment on above:Performed By: #### CBC #### [facility] [address] [place] [address] [address] Cathleen Tranmphocytes/100 WBC (Bld)22.5 %Azrmyt70.5-60.0The [facility]aut Medical Centerment on above:Performed By: #### CBC #### [facility] [address] [place] [address] [address] Cathleen GodwinMANUAL DIFF REQNONormalThe [facility] HospitalComment on above: Performed By: #### CBC #### [facility] [address] [place] [address] [address] Cathleen Rao (RBC) [Entitic mass]29.4 mmCmmnse61.7-34.0The [facility] HospitalComment on above:Performed By: #### CBC #### [facility] [address] [place] [address] [address] Cathleen WilliamHC (RBC) [Mass/Vol]34.3 g/vWYiadws50.9-35.2The [facility] HospitalComment on above:Performed By: #### CBC #### [facility] [address] [place] [address] Dr. Cathleen WilliamV (RBC) [Entitic vol]85.5 kSXsofmz04.0-99.0The [facility] HospitalComment on above:Performed By: #### CBC #### [facility] [address] [place] [address] Dr. Cathleen Maria #0.5 103/ulNormal0.3-0.8The [facility] HospitalComment on above:Performed By: #### CBC #### [facility] [address] [place] [address] Dr. Cathleen Lubinocytes/100 WBC (Bld)4.5 %Normal1.7-12.0The [facility] Comment on above:Performed By: #### CBC #### [facility] [address] [place] [address] Dr. Cathleen Tenorio #8.1 103/ulCritically high1.4-6.5The [facility] Comment on above:Performed By: #### CBC #### [facility] [address] [place] [address] Dr. Cathleen Garayutrophils/100 WBC (Bld)69.8 %Lbpddv93.0-75.0The [facility] HospitalComment on above:Performed By: #### CBC #### [facility] [address] [place] [address] Dr. Cathleen Flanaganlet mean volume (Bld) [Entitic vol]10.8 fLNormal9.5-13.5The [facility] HospitalComment on above:Performed By: #### CBC #### [facility] [address] [place] [address] Dr. Cathleen GodwinPLT223 103/guTonqun684-847Zic [facility] HospitalComment on above: Performed By: #### CBC #### [facility] [address] [address] [address] Cathleen GodwinRBC3.85 106/ulCritically low4.20-5.40The [facility] on above:Performed By: #### CBC #### [facility] [address] [address] [address] Cathleen GodwinWBC11.5 103/ulCritically high4.0-11.0The [facility] on above:Performed By: #### CBC #### [facility] [address] [address] [address] Cathleen GodwinCULTURE URINEon 61-49-3909DTOMOKU URINECulture Observations: LIGHT GROWTH OF MIXED GENITAL KASIA. NO POTENTIAL PATHOGENS SEEN.NormalThe [facility] on above:Performed By: #### URCX ####[facility] [address] [address]. Cathleen Godwin GLYCOHEMOGLOBIN A1Con 07-75-7610ZFI RECOMMENDATIONSEE BELOWMercy Health St. Elizabeth [facility] HospitalComascension stand[facility] on above:Result Comment: ADA RECOMMENDED LIMIT 4.0 - 6.0 ADA THERAPEUTIC TARGET < 7.0 ACTION SUGGESTED > 7.0Performed By: #### A1C #### [facility] [address] [place] [address] Dr. Cathleen GodwinGlucose [Mass/Vol]114 mg/dLOhio Valley Hospital on above:Performed By: #### A1C #### [facility] [address] [place] [address] Dr. Cathleen GodwinHbA1c (Bld) [Mass fraction]5.6 %Normal4.5-6.2The [facility] on above:Performed By: #### A1C #### [facility] [address] [place] [address] Dr. Cathleen GodwinTSHon 89-43-1684XXR15.370 uIU/mLCritically high0.358-3.740The [facility] on above:Performed By: #### TSH #### [facility] [address] [address] [address] Cathleen GodwinTYPE AND SCREENon 47-31-5208QEOA AND SCREENNegativeMercy Health St. Elizabeth Boardman HospitalComment on above:Performed By: #### TNS #### [facility] [address] [place] [address] Dr. Cathleen Hughes PREG ANATOMY SINGLEon 88-17-1329FC PREG ANATOMY SINGLE EXAMINATION: US PREG ANATOMY [...] Electronically authenticated by: CHRISTIANNE ULLOA Date: 2022-06-27 15:[address] [place] [address] Vital Signs Date TimeVital SignValuePerforming FbwjehgyrTgszbfww92-94-7448 08:03-0400Body .6 cmKenji Plascencia MD Work Phone: [facility] Sky HomesFawnum37-46-7514 08:03-0400Body mass index (BMI) [Ratio]40.39 kg/q3YhkfrxKenji Plascencia MD Work Phone: [phone])[address] [place], [place] 5570310-17-2025 08:03-0400Body jpsovu993.78 kgKenji Plascencia MD Work Phone: [phone] [place], [place] 5570310-17-2025 08:03-0400Diastolic blood hkutoayp21 mm[Hg]Kenji Plascencia MD Work Phone: [phone])[address] [place], [place] 5570310-17-2025 08:03-0400Heart rate 83 /minKenji Plascencia MD Work Phone: [phone] [place], [place] 5570310-17-2025 08:03-0400Systolic blood gzpejfmp367 mm[Hg]Kenji Plascencia MD Work Phone: [phone] [place], [place] 5570310-16-2025 09:24-0400Body mass index (BMI) [Ratio]41.81 kg/p7Sjblg Samuel DO Work Phone: [phone])[address] [place], [place] 6416610-16-2025 09:24-0400Body .05 kgCorey Samuel DO Work Phone: [phone])[address] [place], [place] 6416610-16-2025 09:24-0400Diastolic blood hyxucpnd43 mm[Hg]Ha Samuel DO Work Phone: 1(316)[address] [place], [place] 6416610-16-2025 09:24-0400Systolic blood mm[Hg]Ha Samuel DO Work Phone: [phone])[address] [place], [place] 6416609-11-2025 11:30-0400Body mass index (BMI) [Ratio]40.64 kg/g7KegboinfCaryn Lopez NP Work Phone: [phone] [place] [address]-11-2025 11:30-0400Body vlagpj737.06 kgCaryn Lopez MANAGER SEARCH ENGINE Work Phone: [phone] [place] [address]-11-2025 11:30-0400Diastolic blood mm[Hg]Caryn Lopez NP Work Phone: [facility] HospitalCsnazyzufb17-99-9818 11:30-0400Systolic blood htoqpeof051 mm[Hg]Caryn Lopez KALIE Work Phone: [facility] HospitalEfexqgakra05-37-5183 14:04-0400Body mass index (BMI) [Ratio]40.35 kg/i5Gzhkn Samuel DO Work Phone: [facility] HospitalLysrjwnrkd72-08-6572 14:04-0400Body atljsg946.33 kgCorey Samuel DO Work Phone: [phone] [place], [place] [address]Nkekxmrtlx86-49-5105 14:04-0400Diastolic blood mm[Hg]Ha Samuel DO Work Phone: [facility] HospitalKlvwqxsjot27-86-0643 14:04-0400Systolic blood tdgkzhim602 mm[Hg]Hajona Nowako DO Work Phone: [facility] HospitalFhbbbqfkcv39-51-8010 10:07-0400Body wcyllh649 cm Allen Carr MD Work Phone: [phone] [place], [place] [address]Wdxaqpzwnp78-85-7491 10:07-0400Body mass index (BMI) [Ratio]39.86 kg/n3TkdihAllen Carr MD Work Phone: [phone] HospitalSvksqivzji71-08-1869 10:07-0400Body vdipbi792.06 kgAllen Carr MD Work Phone: [facility] HospitalQprgzqhhhe03-39-7384 10:07-0400Diastolic blood kzbfpioh09 mm[Hg]Allen Carr MD Work Phone: 1(532)383-[address] [place], [place] [address]Lasxtheshk69-26-1208 10:07-0400Heart rate77 /min Allen Carr MD Work Phone: [facility] HospitalUqjnijimix43-09-2440 10:07-0400Respiratory rate16 /minAllen Carr MD Work Phone: [facility] HospitalGfgsqrprmm78-62-9761 10:07-4553IeA2% (BldA) [Mass fraction]99 %Allen Carr MD Work Phone: [address] [place], [place] [address]Mngzcknwbo49-18-7056 10:07-0400Systolic blood temlsxmn720 mm[Hg]Allen Carr MD Work Phone: 1(659)623-[address] [place], [place] [address]Hjbslhjilx86-25-9037 14:05-0400Body mass index (BMI) [Ratio]39.2 kg/k2IwhleWoodhull Medical Center07-10-2025 14:05-0400Body weight 103.6 kgWoodhull Medical Center06-13-2025 11:20-0400Body .6 Sriram Carr MD Work Phone: [phone])[address]06-13-2025 11:20-0400Body mass index (BMI) [Ratio]40.17 kg/k5OxsqjAllen Carr MD Work Phone: 1(640)213-[address] [place], [place] [address]Xgwgkspjpm44-76-6279 11:20-0400Body dxtzue668.14 kgAllen Carr MD Work Phone: 1(993)[address]06-13-2025 11:20-0400Heart rate93 /min Allen Carr MD Work Phone: 1(037)830-[address] [place], [place] [address]Owfqpnjlzx31-11-4204 11:20-0400Respiratory rate16 /minAllen Carr MD Work Phone: 1(838)556-[address] [place], [place] [address]Rrskcavkbz87-06-0041 11:20-3608AeP9% (BldA) [Mass fraction]99 %Allen Carr MD Work Phone: 1(677)332-[address] [place], [place] [address]Kstnmtaiyq84-56-2305 13:29-0500Body mass index (BMI) [Ratio]40.94 kg/p2Wdoml Samuel DO Work Phone: [facility] HospitalBiqsjiwlrx79-80-1381 13:29-0500Body nhlcat572.83 kgCorey Samuel DO Work Phone: [facility] HospitalEjltyupppw48-88-6098 13:29-0500Diastolic blood tqlhmijj92 mm[Hg]Ha Samuel DO Work Phone: [facility] HospitalWulbdqstwv25-96-2519 13:29-0500Systolic blood npncyvkp809 mm[Hg]Ha Baker DO Work Phone: [facility] HospitalZpjdmgjaqm42-57-5857 13:08-0400Body cigbgs845.56 cmAPRJarek Altman Work Phone: 1([phone] [place], [place] 4373409-23-2024 13:08-0400 Body mass index (BMI) [Ratio]38.7 kg/m2JUICE Ortiz Anupama Work Phone: [phone])[address]09-23-2024 13:08-0400 Body qttvlyhaybp54.9 [degF]JUICE Ortiz Anupama Work Phone: [phone] [place], [place] 7129209-23-2024 13:08-0400 Body ooonea325.51 kgJUICE Altman Work Phone: [phone])[address]09-23-2024 13:08-0400 Diastolic blood qcuchjra34 mm[Hg]JUICE Ortiz Anupama Work Phone: 1(678)[address]09-23-2024 13:08-0400 Heart rate80 /minAPRJarek Ortiz Anupama Work Phone: 1([phone])[address]09-23-2024 13:08-0400 SaO2% (BldA) [Mass fraction]98 %JUICE Ortiz Anupama Work Phone: [phone]09-23-2024 13:08-0400 Systolic blood ybhhcgun057 mm[Hg]JUICE Ortiz Anupama Work Phone: 1(726)[address]08-13-2024 17:54-0400 Body wehkxe494.56 cmOhio[facility]08-13-2024 17:54-0400Body mass index (BMI) [Ratio]37.6 kg/q7TihdgntxwOhiohealth Grant Medical Center08-13-2024 17:54-0400Body .2 [degF][facility]08-13-2024 17:54-0400Body uolziq24.56 kgOhiohealth Grant [facility] Center08-13-2024 17:54-0400Diastolic blood zlcuhahu01 mm[Hg][facility] 10-10-2023 17:54-0400Heart rate90 /[facility] 10-10-2023 17:54-0400Respiratory rate18 /[facility] 10-10-2023 17:54-3456ByK1% (BldA) [Mass fraction]96 %[facility]08-13-2024 17:54-0400Systolic blood thdighfl391 mm[Hg][facility]02-20-2024 11:10-0500Body omrnzt561.56 cmOhiohealth [facility] Center02-20-2024 11:10-0500Body mass index (BMI) [Ratio]38.6 kg/m2 [facility]02-20-2024 11:10-0500Body bccqhaluuui87.2 [degF][facility]02-20-2024 11:10-0500Body imunhk109.05 kg [facility]02-20-2024 11:10-0500Heart rate95 /[facility]02-20-2024 11:10-0500Respiratory rate16 /[facility]02-20-2024 11:10-2804ElL4% (BldA) [Mass fraction]99 % [facility]02-08-2024 09:05-0500Body mgbmao721.02 cmAtemo Swanson Other [employer] Other 02-08-2024 09:05-0500Body mass index (BMI) [Ratio] 38.97 kg/h0YqovxLinda Swanson Other [employer] Other 02-08-2024 09:05-0500Body aaoajgwwtwu75.1 [degF]Linda Swanson Other [employer] Other 02-08-2024 09:05-0500Body .79 kgLinda Swanson Other [place] [employer] Other 02-08-2024 09:05-0500Respiratory rate18 /minLisandroer Sky Other [facility] [employer] Other 02-08-2024 09:05-5749SeG2% (BldA) [Mass fraction]99 % Linda Sky Other [place] [employer] Other 12-04-2023 15:40-0500Body pkxgxe435.02 cmPamela Mary Other [facility]12-04-2023 15:40-0500 Body mass index (BMI) [Ratio]39.78 kg/b1Qucjfn Mary Other [place] [employer] Other 12-04-2023 15:40-0500Body [degF]Addie Mary Other [place] [employer] Other 12-04-2023 15:40-0500Body bemglm803.88 kgPager Hernandez Other [place] [employer] Other 12-04-2023 15:40-0500Body aphhgc226.87 kgOhiohealth Grant Medical Center12-04-2023 15:40-0500Diastolic blood gclsiwhi32 mm[Hg] Addie Mary Other [facility]12-04-2023 15:40-0500 Respiratory rate18 /minPager Hernandez Other [place] [employer] Other 12-04-2023 15:40-3253GdK2% (BldA) [Mass fraction]98 % Addie Hernandez Other [place] [employer] Other 12-04-2023 15:40-0500Systolic blood fzasodfr130 mm[Hg] Addie Hernandez Other [facility]10-17-2023 09:05-0400 Body .02 Markos Swanson Other [employer] Other 10-17-2023 09:05-0400Body mass index (BMI) [Ratio] 38.97 kg/r4TmkobLinda Swanson Other [employer] Other 10-17-2023 09:05-0400Body gfneqvrjroy88.2 [degF]Linda Swanson Other [employer] Other 10-17-2023 09:05-0400Body ocjqsw10.79 kgLinda Swanson Other [employer] Other 10-17-2023 09:05-0400Diastolic blood twwyoqjn06 mm[Hg] Linda Swanson Other [employer] Other 10-17-2023 09:05-0400Respiratory rate18 /minLinda Swanson Other [employer] Other 10-17-2023 09:05-9787GpU8% (BldA) [Mass fraction]98 % Linda Swanson Other [employer] Other 10-17-2023 09:05-0400Systolic blood cenzcayh762 mm[Hg] Linda Swanson Other [employer] Other 06-19-2023 12:00-0400Body .02 Chiquita Hernandez Other [employer] Other 06-19-2023 12:00-0400Body mass index (BMI) [Ratio] 40.21 kg/c0PistdfAddie Hernandez Other [employer] Other 06-19-2023 12:00-0400Body aguiahzppwx56.7 [degF]Addie Hernandez Other [employer] Other 06-19-2023 12:00-0400Body wtmody819.97 kgAddie Hernandez Other [employer] Other 06-19-2023 12:00-0400Diastolic blood hjoftezg72 mm[Hg] Addie Hernandez Other [employer] Other 06-19-2023 12:00-0400Respiratory rate18 /minAddie Hernandez Other [employer] Other 06-19-2023 12:00-4684EjA7% (BldA) [Mass fraction]98 % Addie Hernandez Other [employer] Other 06-19-2023 12:00-0400Systolic blood xljiefit384 mm[Hg] Addie Hernandez Other [employer] Other 05-05-2023 14:08-0400Body ywsiyn412.6992 kgDR HA BAKER .[facility] HospitalComment on above:Result Comment: This is a corrected report. The previously reported result was: Weight 06/29/2022 Not provided. .Performed By: #### AFPMAT #### [facility] [address] [place] [address] Dr. 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)Start: 12-13-2024 End: 59-52-3246Hqaxqq Virgil Mcgrath RNMaternal- [facility] CenterComment on above:Hypothyroidism affecting in second trimester (Primary Dx)Start: 12-12-2024 End: 01-02-2963Ghihnep encounter procedureCorejona Samuel DO Work Phone: noms [facility]oon OBGYNComment on above:Colposcopy needed after cervical smear; Second trimester ([facility]); 22 weeks gestation of ([facility])Start: 12-12-2024 End: 98-17-2956camtdsuyeqUMXZL FAZIONot AvailableStart: 11-13-2024 End: 76-25-3228Rvggk abstractYosvany Plascencia MD Work Phone: [phone]-Mkujq [facility] Start: 11-13-2024 End: 76-03-0253Isficdasi encounterCaryn Lopez NP Work Phone: [facility] [place] OBGYNStart: 11-07-2024 End: 82-09-1940Sgljka flowsheetCaryn Lopez MANAGER SEARCH ENGINE Work Phone: [facility] [place] OBGYNStart: 11-07-2024 End: 85-15-3987Llnoyw flowsheetCaryn Lopez MANAGER SEARCH ENGINE Work Phone: [facility]oon OBGYNStart: 11-07-2024 End: 97-13-3165Toarkuais Result EncounterCaryn Lopez NP Work Phone: NOM[facility] External Department UnsolicitedStart: 11-07-2024 End: 61-20-3974Bwbaqybs Result EncounterCaryn Lopez NP Work Phone: no External Department UnsolicitedStart: 11-07-2024 End: 66-61-6179Aobzuq outpatient visit 15 minutesCaryn Lopez NP Work Phone: no Timothy OBGYNComment on above:17 weeks gestation of ([facility]); Second trimester ([facility]); History of hyperthyroidism; Well woman exam with routine gynecological exam; Screening, , for anatomic survey ([facility]); Vaginal discharge; Exposure to STDStart: 11-07-2024 End: 55-61-9342Rwlomyt encounter procedureCaryn Lopez NP Work Phone: no HealthcareStart: 11-07-2024 End: 06-44-6107ekczeuvjrdFPVSFPUR EBERLYNot AvailableStart: 10-23-2024 End: 24-67-8030Bfkhavnor department patient visitNO PCP NO PCPProMedica Rector HospitalStart: 10-08-2024 End: 35-25-3889Jlxsyw flowsheetCorey Samuel DO Work Phone: n[facility]oon OBGYNStart: 10-08-2024 End: 20-68-1529Wokwcc flowsheetCorey Samuel DO Work Phone: [facility] [place] OBGYNStart: 10-08-2024 End: 96-41-1298Acejru outpatient visit 15 minutesCorey Samuel DO Work Phone: no Timothy OBGYNComment on above:13 weeks gestation of ([facility]); Second trimester ([facility]); Nausea and vomiting in ([facility]); History of hyperthyroidism; Constipation, unspecified constipation typeStart: 10-08-2024 End: 98-33-5042rirsvyfjsqKZZMU FAZIONot AvailableStart: 10-04-2024 End: 67-52-5776Ebocyk flowsEstrella Carr MD Work Phone: noMS Sergio EndocrinologyStart: 10-04-2024 End: 14-47-9957Sayaxk flowsheetAllen Carr MD Work Phone: noms Sergio EndocrinologyStart: 10-04-2024 End: 57-73-0027Rranij outpatient visit 25 minutesAllen Carr MD Work Phone: noms Sergio Endocrinology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 (Primary Dx); Vitamin D deficiency; Encounter for dietary consultation; Thyroid disease during , first trimester (HCC); Hypothyroidism, unspecified typeStart: 10-04-2024 End: 71-14-9489xrmfwyoyqfPXFGL F SABBAGHNot AvailableStart: 10-03-2024 End: 79-85-5263Mrufuizsi Result EncounterCorey Samuel DO Work Phone: noms External Department UnsolicitedStart: 10-03-2024 End: 18-06-6792Iyellumbh Result EncounterCorey Samuel DO Work Phone: noms External Department UnsolicitedStart: 09-19-2024 End: 04-96-8655Glkakkbgz Result EncounterCorey Samuel DO Work Phone: noms External Department UnsolicitedStart: 09-19-2024 End: 30-40-6542Juokctief Result EncounterCorey Samuel DO Work Phone: noms External Department UnsolicitedStart: 09-06-2024 End: 49-05-2654Zzhqnmepn Result EncounterCorey Samuel DO Work Phone: noms External Department UnsolicitedStart: 09-06-2024 End: 45-21-1766Mdjqdougy Result EncounterCorey Samuel DO Work Phone: noms External Department UnsolicitedStart: 09-05-2024 End: 09-26-9205Rcdxig outpatient visit 5 minutesFamaurao Nurse Noms Bcp ObNOMS BCP OBComment on above:GA: 9s9sFktfr: 09-05-2024 End: 41-74-6928axrehyofmtVWQWL FAZIONot AvailableStart: 09-01-2024 End: 96-07-9865Fjhdwwpbi department patient visitNO PCP NO PCPProMedica Rector HospitalStart: 08-21-2024 End: 29-52-5162Aerbwolba Result EncounterCorey Samuel DO Work Phone: noms External Department UnsolicitedStart: 08-21-2024 End: 89-24-8434Rvfylvmvr Result EncounterCorey Samuel DO Work Phone: noms External Department UnsolicitedStart: 08-19-2024 End: 86-25-4792Yiyjdbqnu Result EncounterCorey Samuel DO Work Phone: noms External Department UnsolicitedStart: 08-19-2024 End: 64-60-9361Ztocsckwg Result EncounterCorey Samuel DO Work Phone: noms External Department UnsolicitedStart: 08-09-2024 End: 27-32-1687Hqxryuhenry Carr MD Work Phone: noms ENDOCRINOLOGYStart: 08-09-2024 End: 38-66-2258Xhraeahenry Carr MD Work Phone: noms ENDOCRINOLOGYStart: 08-09-2024 End: 46-44-7779yepqzikgdzSXGMM F SABBAGHNot AvailableStart: 08-09-2024 End: 36-02-4660Lkxjmk outpatient visit 25 minutesAllen Carr MD Work Phone: noms ENDOCRINOLOGYComment on above:Alfredo's disease (Primary Dx); Vitamin D deficiency; Encounter for dietary consultation; Class 3 severe obesity due to excess calories without serious comorbidity with body mass index (BMI) of 40.0 to 44.9 in adult (CMS-HCC); Thyroid disease during , first trimester (HCC); Hypothyroidism, unspecified typeStart: 05-46-6500Cpcpawz encounter statusAllen Carr MD Work Phone: noms HealthcareStart: 03-26-2024 End: 15-07-6401Zbhemzi encounter procedureCorey Samuel DO Work Phone: [facility] OBComment on above:Encounter for removal of intrauterine contraceptive device (IUD)Start: 03-26-2024 End: 50-68-8198xdaoztmipoSVRLT TERIONot AvailableStart: 11-20-2023 End: 73-34-8842Aybdahk encounter procedureJUICE Altman Work Phone: [facility] Work Phone: Start: 11-20-2023 End: 96-41-6786jtbdyfvangXSLSalem City Hospital [facility] Work Phone: Start: 11-20-2023 End: 25-02-2254cphlhzctpkBAOFairview Park Hospital [facility] Work Phone: Start: 11-20-2023 End: 75-71-3639Wrhloge encounter procedureJUICE Altman Work Phone: [facility] Work Phone: Start: 10-10-2023 End: 24-81-8374Niqntfzb ReferredJUICE Altman Work Phone: [facility] [place] Work Phone: Start: 10-10-2023 End: 96-30-0894tcxubywnymMrgwxn M [facility] Work Phone: Start: 10-10-2023 End: 25-35-3150Cpemjzo encounter procedureUnc Health [facility] Work Phone: Start: 04-18-2023 End: 43-54-3386yhnwwtvzlhAvxnuhzuzBarberton [facility] Work Phone: Start: 04-18-2023 End: 41-37-6228Ngsadzm encounter procedureUnc Health [facility] Work Phone: start: 04-06-2023 End: 29-38-6365qegscquakhDlyvs Keller Other [employer] Other Start: 66-78-0155Wjvfam outpatient visit 25 minutes Linda GhulamlerFPG Urgent Care ClydeStart: 02-02-2023 End: 16-42-0653buctszvkjhCvldm Keller Other [employer] Other Start: 78-77-0687Kifeujlbe encounterAmber GhulamlerFPG Urgent Care Eads RoadStart: 01-30-2023 End: 13-79-5508yovqlyaqkkZqajad Mary Other [employer] Other Start: 96-47-2215Snwfot outpatient visit 15 minutes Addie DydelbertFPG Urgent Care ClydeStart: 01-30-2023 End: 75-49-5450Qqyhvyz encounter procedureFirbon secours [facility] Work Phone: Start: 66-29-4127Cqeftt outpatient visit 15 minutes Linda SkyFPG Urgent Care ClydeStart: 12-13-2022 End: 57-06-1532Pnqkizt encounter procedureAPRN Linda Swanson Work Phone: [facility] Work Phone: Start: 12-13-2022 End: 64-05-6541dzpukzakraAoyoq Michela SwansonCincinnati [facility] Work Phone: Start: 08-15-2022 End: 72-10-3447lbutdurvgrOtbiwx Mary Other [employer] Other Start: 13-82-7382Binexc outpatient new 20 minutes Addie DymondFPG Urgent Care ClydeStart: 07-26-2022 End: 49-36-4060ztdixezunwLW HA SAMUEL .Facility:O1Omtyo: 06-27-2022 End: 06-03-1739xdesqfyzhvAL HA SAMUEL .Facility:Y3Kzqwp: 06-27-2022 End: 24-18-7737ngnhydqactKP HA SAMUEL .Facility:Y6Tgyyw: 06-10-2020 End: 49-62-2705dinshztpwlChvm Malina Work Phone: COVID Vaccine [place] Procedures DateProcedureProcedure DetailPerforming ClinicianStart: 25-92-4227IARGDMILZE Ha Samuel DO Work Phone: Start: 94-32-0346Ajfgo dip stick/tablet rgnt non-auto w/o micrscpCorey Samuel DO Work Phone: Start: 22-97-0185TYKDUUMEY VAGINITIS (HTRX)Caryn Lopez NP Work Phone: Start: 34-32-6893Eqcql dip stick/tablet rgnt non-auto w/o micrscpCaryn Lopez MANAGER SEARCH ENGINE Work Phone: Start: 34-31-7260BTT,APTIMA HPV,AGE GDLNCaryn Lopez MANAGER SEARCH ENGINE Work Phone: Start: 94-29-3362Zrdlxqwzozi observation [Identifier] in Cervix by Cyto Celeste Plascencia MD Work Phone: Start: 42-98-8452Yrhex dip stick/tablet rgnt non-auto w/o micrscpCorey Samuel DO Work Phone: Start: 64-23-1912ZEPBWQU TOLERANCE 3 HOURCorey Samuel DO Work Phone: Start: 70-06-7798EAH CBC WITH AUTO DIFFCorey Samuel DO Work Phone: Start: 61-99-5898OZM CBC WITH AUTO DIFFCorey Samuel DO Work Phone: Start: 73-31-9853Zzidt dip stick/tablet rgnt non-auto w/o micrscpCorey Samuel DO Work Phone: Start: 82-74-8465LOR PREG QUANT HCGCorey Samuel DO Work Phone: Start: 17-85-1961UWP PREG QUANT HCGCorey Samuel DO Work Phone: Start: 31-04-8336OAQ REMOVALCorey Samuel DO Work Phone: Start: 89-41-4897OKWYF Antigen (POC)JUICE Feldmanmichelle Altman Work Phone: Start: 27-15-9476Yjtgr Strep (POC)GREENHOUSE ASSISTANT Dianamichelle Altman Work Phone: Start: 68-38-1074Hecro chest X-rayAPRJarek Altman Work Phone: Start: 80-50-0315Pevxi cultureAPRJarek Diana Anupama Work Phone: Start: 58-39-0586HOWNL/Influenza Antigen (POC)Start: 62-59-8476N-ray of left ankleAPRN Linda Swanson Work Phone: Plan of Treatment DateCare ActivityDetailAuthorStart: 41-74-6781Ouftdflgc for malignant neoplasm of cervixPap SmearProMary [facility] Hospital23press SystemStart: 94-83-4079Bunmm BMI Screening Adult BMI ScreeningProPremier Health SystemStart: 60-02-4182Dranuih Screening Tobacco ScreeningProPremier Health SystemStart: 12-13-2025 End: 22-40-3879LS MFM with or without consultUS MFM with or without consult Imaging Routine Hypothyroidism affecting in second trimester Expected: 12/13/2025 (Approximate), Expires: 12/13/2025[employer] Work Phone: comment on above:Expected: 12/13/2025 (Approximate), Expires: 12/13/2025Start: 20-00-6361Capyb BMI ScreeningAdult BMI Screening [facility] SystemStart: 01-21-2025 End: 16-82-9712Xdkauzp encounter kyollgvzt29/25/2025 2:15 PM EST Appointment [facility] - Ultrasound [address] [place] [address] AyaQzkxya [facility] - UltrasoundStart: 01-09-2025 End: 80-93-1517Lojvbvg encounter huueezhdd84/13/2025 10:50 AM EST Routine NOMPalma ANTHONY [address] [place] [address] Karla Matthews PA [address] [place] [address] SUNITA GONSALVEStart: 12-19-2024 End: 79-83-3870Aagtzuh encounter caybfcdvl13/23/2025 11:30 AM EDT Office Visit [facility] [address] [place] [address] Allen Carr MD [address] [place] [address] SUNITA Bhakta EndocrinologyStart: 12-13-2024 End: 13-71-6492Karxiwe encounter bbzbwdpfi83/17/2025 8:45 AM EDT Office Visit Maternal- Medicine at [facility] [address] [place] [phone] Kenji Plascencia MD [address], [address] [place] [address] [facility]-13-2024 End: 99-72-2745Felsvgf encounter djcedxdul18/17/2025 7:30 AM EDT Appointment [facility] US Imaging [address] [place] [address] [phone] US ImagingStart: 12-12-2024 End: 58-17-0487Fywwtpr encounter rssodnopa61/16/2025 11:20 AM EDT Routine [facility] ANTHONY [address] [place] [address] Ha Baker, DO [address] [place] [address] NOMPalma [facility] OBGYNStart: 12-12-2024 End: 89-37-4029Zsriinc encounter tqolpmthz96/16/2025 9:30 AM EDT Procedure Visit [facility] [address] [place] [phone] Ha Baker, DO [address] [address] NOMPalma [place] OBGYNStart: 11-14-2024 End: 87-35-5272Envpnng encounter /18/2025 11:20 AM EDT Office Visit [facility] [address] [place] [address] Allen Carr MD [address] [place] [address] SUNITA Bhakta EndocrinologyStart: 11-07-2024 End: 96-58-6302Glbmt fetoprotein, maternalAlpha fetoprotein, maternal Lab Routine 17 weeks gestation of ([facility]) Second trimester ([facility]) Expected: 11/07/2024 (Approximate), Expires: 12/07/2024[facility] Comment on above:Expected: 11/07/2024 (Approximate), Expires: 12/07/2024Start: 11-07-2024 End: 20-94-6910DS for pregnancyUS OB 14+ weeks anatomy scan Imaging Routine Screening, , for anatomic survey ([facility]) Expected: 11/07/2024, Expires: 02/06/2025NO[facility] HealthcareComment on above:Expected: 11/07/2024, Expires: 02/06/2025Start: 11-07-2024 End: 43-20-6356Bmlnkav encounter procedureNOMS Dragoon OBGYNComment on above: ArrivedStart: 80-18-7934Cklxhtzce vaccinationInfluenza VaccineCleveland Clinic Children's Hospital for Rehabilitation SystemStart: 10-08-2024 End: 40-50-8357Lfldcbq encounter procedureNOMS BCP OBComment on above:Arrived Start: 10-04-2024 End: 48-65-7791Oyzumgjfafd [Units/volume] in Serum or PlasmaTSH Lab Routine Alfredo's disease Thyroid disease during , first trimester (HCC) Expected: 10/04/2024 (Approximate), Expires: 10/04/2025[facility] HealthcareComment on above:Expected: 10/04/2024 (Approximate), Expires: 10/04/2025Start: 10-04-2024 End: 95-17-0793Dozkpdokg (T4) free [Mass/volume] in Serum or PlasmaT4, free Lab Routine Alfredo's disease Thyroid disease during , first trimester (HCC) Expected: 10/04/2024 (Approximate), Expires: 10/04/2025[facility] Comment on above:Expected: 10/04/2024 (Approximate), Expires: 10/04/2025Start: 10-04-2024 End: 38-79-8860Gifxaohlhrarrmrv (T3) Free [Mass/volume] in Serum or PlasmaT3, free Lab Routine Alfredo's disease Thyroid disease during , first trimester (HCC) Expected: 10/04/2024 (Approximate), Expires: 10/04/2025[facility] Work Phone: Comment on above:Expected: 10/04/2024 (Approximate), Expires: 10/04/2025Start: 10-04-2024 End: 46-26-2632Ulauony encounter procedureNOMS SH ENDOCRINOLOGYComment on above: ArrivedStart: 09-05-2024 End: 81-63-2958NCY/RhABO/Rh Lab Routine Missed menses , unspecified gestational age ([facility]) Expected: 09/05/2024 (Approximate), Expires: 09/05/2025[facility] HealthcareComment on above:Expected: 09/05/2024 (Approximate), Expires: 09/05/2025Start: 09-05-2024 End: 30-02-2116Tpexp type and Indirect antibody screen panel - BloodType and screen Lab Routine Missed menses , unspecified gestational age ([facility]) Expected: 09/05/2024 (Approximate), Expires: 09/05/2025[facility] Work Phone: comment on above:Expected: 09/05/2024 (Approximate), Expires: 09/05/2025Start: 09-05-2024 End: 19-68-8287Seqfc of abuse panel - Urine by Screen methodRapid drug screen, urine Lab Routine , unspecified gestational age ([facility]) Encounter for supervision of normal first in first trimester ([facility]) Expected: 09/05/2024 (Approximate), Expires: 09/05/2025[facility] HealthcareComment on above: Expected: 09/05/2024 (Approximate), Expires: 09/05/2025Start: 09-05-2024 End: 37-52-7950xleiujjgep65/10/2025 1:30 PM EDT Initial [facility] [address] [place] [address] NOMS BCP OBStart: 09-05-2024 End: 46-61-7547Lvcpoipwfhjr / ancillary services wpipcjdinu62/10/2025 1:00 PM EDT Ancillary Procedure [facility] [address] [place] [address] NOMS BCP OBStart: 08-09-2024 End: 53-25-4673Wvsqomfdmqh [Units/volume] in Serum or PlasmaTSH Lab Routine Alfredo's disease Thyroid disease during , first trimester ([facility]) Expected: 08/09/2024 (Approximate), Expires: 08/09/2025[facility] HealthcareComment on above:Expected: 08/09/2024 (Approximate), Expires: 08/09/2025Start: 08-09-2024 End: 89-74-2406Terqqganu (T4) free [Mass/volume] in Serum or PlasmaT4, free Lab Routine Alfredo's disease Thyroid disease during , first trimester (HCC) Expected: 08/09/2024 (Approximate), Expires: 08/09/2025[facility] Comment on above:Expected: 08/09/2024 (Approximate), Expires: 08/09/2025Start: 08-09-2024 End: 31-73-4739Nlncpdmzuivmgcph (T3) Free [Mass/volume] in Serum or PlasmaT3, free Lab Routine Alfreod's disease Thyroid disease during , first trimester (HCC) Expected: 08/09/2024 (Approximate), Expires: 08/09/2025[facility] Work Phone: Comment on above:Expected: 08/09/2024 (Approximate), Expires: 08/09/2025Start: 19-95-9153Wjzcnepf identified in Urine by Culture [facility]: 09-06-5014Zubuv microalbumin profile DTAP,TDAP,TD (2 - Td)[facility]: 97-42-3070YQI TESTINGPAP TESTING [facility] Campustart: 37-12-1331Nbymxdhsf vaccinationINFLUENZA (Season Ended) [facility]: 37-81-1227JPkG,Tdap and Td Vaccines (2 - Td or Tdap) DTaP,Tdap and Td Vaccines (2 - Td or Tdap)[facility]: 19-07-8500Uodydugug for malignant neoplasm of cervixPap SmearFormerly [facility]ertart: 43-43-1391Bqhle BMI Follow Up PlanAdult BMI Follow Up PlanFormerly [facility] Centertart: 51-13-2396AQQTMCTVZ C SCREENINGHEPATITIS C SCREENING [facility]art: 85-87-0599EHK SCREENINGHIV SCREENINGMarietta Memorial Hospital Start: 94-77-6549Wphrn depression screening assessmentDEPRESSION SCREENING [facility]: 81-09-5263Xbrrtct ScreeningTobacco Screening [facility] HospitalBacteria identified in Urine by CultureUrine culture Microbiology Routine Missed menses Ordered: 09/05/2024[facility] HealthcareComment on above:Ordered: 09/05/2024BC W Auto Differential panel - BloodCBC and differential Lab Routine Missed menses , unspecified gestational age ([facility]) Ordered: 09/05/2024[facility] HealthcareComment on above:Ordered: 09/05/2024 CHLAMYDIA TRACHOMATIS (GENITO/STI)CHLAMYDIA TRACHOMATIS (GENITO/STI) Lab Routine Vaginal discharge Ordered: 11/07/2024[facility] HealthcareComment on above:Ordered: 11/07/2024ytology Cervical or vaginal smear or scraping studyPap Smear Pathology and Cytology Routine Well woman exam with routine gynecological exam Ordered: 11/07/2024[facility] HealthcareComment on above:Ordered: 11/07/2024Hemoglobin A1c/Hemoglobin.total in BloodHemoglobin A1c Lab Routine Missed menses , unspecified gestational age ([facility]) Ordered: 09/05/2024[facility] HealthcareComment on above:Ordered: 09/05/2024Hepatitis B virus surface Ag [Presence] in Serum or Plasma by ImmunoassayHepatitis B surface antigen Lab Routine Missed menses , unspecified gestational age ([facility]) Ordered: 09/05/2024[facility] HealthcareComment on above:Ordered: 09/05/2024Hepatitis C virus Ab [Presence] in Serum or Plasma by ImmunoassayHepatitis C antibody Lab Routine Missed menses , unspecified gestational age ([facility]) Ordered: 09/05/2024[facility] HealthcareComment on above:Ordered: 09/05/2024HIV-1/HIV-2 antigen/antibody combination immunoassayHIV-1 and HIV-2 antibodies Lab Routine Missed menses , unspecified gestational age ([facility]) Ordered: 09/05/2024[facility] HealthcareComment on above:Ordered: 09/05/2024Human papilloma virus DNA [Presence] in Unspecified specimen by Probe with amplificationHPV DNA probe, amplified Microbiology Routine Well woman exam with routine gynecological exam Ordered: 11/07/2024[facility] HealthcareComment on above:Ordered: 11/07/2024 Neisseria gonorrhoeae DNA [Presence] in Unspecified specimen by NICHOLE with probe detectionNeisseria gonorrhea DNA probe, direct Lab Routine Vaginal discharge Ordered: 11/07/2024[facility] HealthcareComment on above:Ordered: 11/07/2024Reagin Ab [Presence] in Serum by RPRRPR Lab Routine Missed menses , unspecified gestational age ([facility]) Ordered: 09/05/2024[facility] HealthcareComment on above: Ordered: 09/05/2024Rubella antibody, IgGRubella antibody, IgG Lab Routine Missed menses , unspecified gestational age ([facility]) Ordered: 09/05/2024[facility] HealthcareComment on above:Ordered: 09/05/2024 End: 33-93-8599IKVP-COVID VACCINE 1ST DOSE APPTSARS-COVID VACCINE 1ST DOSE APPT Procedures Routine 1 Occurrences starting 06/10/2020 until 08/09/2020leveland ClinicComment on above:1 Occurrences starting 06/10/2020 until 08/09/2020 SURESWAB(R) ADVANCED VAGINITIS PLUS, TMASURESWAB(R) ADVANCED VAGINITIS PLUS, TMA Pathology and Cytology Routine Exposure to STD Ordered: 11/07/2024[facility] Work Phone: comment on above:Ordered: 11/07/2024XR Chest 2 [facility] Immunizations Immunization DateImmunizationNotesCare YshxyebdFqrpbqxf58-11-8743ofvahck toxoid, reduced diphtheria toxoid, and acellular pertussis vaccine, adsorbedAhcherri Carr MD Work Phone: [facility] Payers DatePayer CategoryPayerPolicy [id number] (Managed Care)[facility] [id number] 2025Medicaid [facility] Member Subscriber Plan / Payer (Effective 2024-Present) Name: Brittnee Smith Relation to Subscriber: Self Name: Brittnee Smith Payer ID: [id number] (NAIC) Group ID: Not on file Type: Not on file Address: [address] [id number] 2019Private Health InsuranceAETNA [place] PPO [id number] 2018-Present [id number] Health InsuranceAETNA AETNA PPO [id number] 2018-Present [id number] 2.0.1.842006.3.57[id number] 2.0.1.247118.3.57[id number] 2.840.1.646044.3.57[id number] 2.0.1.937661.3.57[id number] 2.0.1.311784.3.57[id number] 2.840.1.859064.3.57[id number] 2..840.1.494054.3.57[id number] 2.16.840.1.578600.3.57[id number] 2.16.840.1.056508.3.57[id number] 2.16.840.1.471311.3.57[id number] 2.840.1.515388.3.57[id number] 2.840.1.411972.3.57[id number] 2.0.1.666335.3.57[id number] 2.840.1.536155.3.57[id number] 2.840.1.44[id number] 2.840.1.015187.3.579.2.531 [id number] 2.0.1.6[id number] 2.0.1.346219.3.579.2.531 Social History DateTypeDetailFacilityStart: 07-02-2018 End: 69-21-6564Brjyuvt smoking status NHISNever smokerParkview Health Bryan Hospitaltart: 07-02-2018 End: 08-17-3146Xnvwfvk use and exposureNever usedTrinity Health System West Campustart: 07-02-2018 End: 93-57-5080Ndiajxr intakeCurrent drinker of alcohol (finding)[facility] Campustart: 27-45-2415Nrq Assigned At BirthNot on fileTrinity Health System West Campustart: 08-07-2023 End: 68-99-2305Pdv [facility]igned At [facility]: 64-94-6684Trd Assigned At [facility]: 08-07-2023 End: 37-41-0205Ajpodmusk beverage intakeCleveland Clinic Children's Hospital for Rehabilitation SystemStart: 09-04-2022 Alcohol CommentAlcohol: 1 or 2 drinks, 2 to 4 times a month; Caffeine: 1 can /weekS[facility] HealthcareStart: 81-38-7862Wwiior identityIdentifies as female gender (finding)[facility] HospitalStart: 39-20-5793Prxgmb orientationHeterosexual (finding)[facility] HospitalStart: 89-41-3146VjxdpmhieCXVT HealthcareStart: 11-14-2024 End: 04-11-9807Zvbmpsoaz beverage intakeEx-drinker (finding)[facility]art: 43-49-2597AxtrrvxutGddelmoGzmRdytuk Health SystemStart: 10-02-2014 SexFemale (finding)[facility] Functional Status ElmgWnirethglqHppyofOypthuqw93-14-7946Bfrnrxh Health Questionnaire 2 item (PHQ- 2) [Reported][facility] Clinical Notes 06-10-2020 to 12-13-2024 Note Date & PczhAogsVdlgslyp53-46-0777 History of Present illness Narrative* Kenji Plascencia MD - 12/13/2024 8:45 AM EDT REASON FOR CONSULTATION: Maternal congenital hypothyroidism. HISTORY OF PRESENT ILLNESS: Brittnee Smith is a pleasant 29 y.o. G 4 P3 003. at 23w0d due on Estimated Date of Delivery: 04/11/25 . Patient was seen today due to the following 1. Maternal congenital hypothyroidism currently 300 mcg of Synthroid. 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 Previous 3 pregnancies [...] and the other consultants, we search on [email or web address] and all the available care everywhere [facility] I did review all the imaging studies of the patient available on EMR, ordered by the primary care physician and the other business operations consultant HABITS: Patient activity no restrictions, diet [...] lb 6.4 oz) LMP 06/26/2024 BMI 40.39 kg/m . Gravid abdomen, Respirations not labored. Well [...] also discussed hypothyroidism often occurs due to Alfredo s thyroiditis. If this occurs, therecan be antibodies circulating in the patient which [...] free T4 is verylow in , the infant is at risk for impaired psychomotor function [...] patient is in complete care of her qm consultant. Patient does have ultrasound scheduled with us Thank you for allowing me to participate in Brittnee Smith . If there any questions please do [...] Yes Have you been seen here at [facility] in a previous ? Yes Recent ER visits or hospitalizations? No Bring blood sugar log or meter with you today? (Please bring them with you for every visit at [facility]) N/A Flu vaccine (Dec-April)? N/A Any concerns that you would like me to mention to the provider today? No documented in this encounterLicking [facility] Hospital10-16-2025 History of Present illness Narrative* Calista Khan LPN - 12/12/2024 9:30 AM EDTAssociated Order(s): Colposcopy Post-Procedure Diagnose(s): Colposcopy needed after cervical smear; Second trimester ([facility]); 22 weeks gestation of ([facility]) Reason for Appointment: Patient ID: Brittnee Smith [...] 11/16/2017 Unable to comply with treatment 07/26/2022 ([facility]) 11/28/2017 Exposure to STD 05/31/2023 Encounter for weight management 05/31/2023 Dermatitis, atopic 08/04/2005 Allergic rhinitis 02/18/2000 Asthma ([facility]) 02/18/2000 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 Acute bronchitis 05/13/2024 Acute pharyngitis 09/10/2009 Acute streptococcal pharyngitis 05/13/2024 Encounter for childhood immunizations appropriate for age 0708/30/2007 Obesity affecting , antepartum ([facility]) 11/13/2018 Hyperthyroidism 11/28/2017 Resolved Ambulatory Problems Diagnosis Date Noted Anemia of ([facility]) 04/24/2018 -induced hypertension ([facility]) 04/29/2018 Past Medical History: Diagnosis Date Body mass index 38.0-38.9, adult Cluster headache Dietary counseling and surveillance Disease of thyroid gland 994 H/O chlamydia infection History of medical problems [...] nursing note reviewed. Exam conducted with a sports medicine masseur present. Vitals: Estimated body mass index is 41.81 kg/m as calculated from the following: Height as of 10/04/24: 5' 3 . Weight as of this encounter: 236 lb. BP: 108/62 Patient's last menstrual period was 06/26/2024. ASSESSMENT & PLAN Assessment/Plan Encounter Diagnosis: ICD-10-CM 1. Colposcopy needed after cervical smear R87.619 2. Second trimester ([facility]) Z34.92 3. 22 weeks gestation of ([facility]) Z3A.22 POCT urinalysis dipstick manually resulted Colposcopy [...] weeks of levels. Patient is scheduled with [facility] for anatomy scan tomorrow. Follow Up: [...] TOOTH EXTRACTION 07/2013 teeth documented in this encounterRay County Memorial HospitalUyghbyhert29-11-4909 Telephone encounter Note* Telephone Encounter - Caryn Lopez NP - 11/13/2024 4:56 PM EDT Please schedule for colposcopy due to PAP ASCUS and HPV positive [facility] Work Phone: [phone]) 569-100409-17-2025 Miscellaneous Notes* Telephone Encounter - Caryn Lopez NP - 11/13/2024 4:56 PM EDT Please schedule for colposcopy due to PAP ASCUS and HPV positive documented in this encounterRay County Memorial HospitalXfhhlfxldt58-23-9693 History of Present illness Narrative* Caryn Lopez NP - 11/07/2024 11:10 AM EDT Reason for Appointment: Patient ID: Brittnee Smith [...] 11/16/2017 Unable to comply with treatment 07/26/2022 ([facility]) 11/28/2017 Exposure to STD 05/31/2023 Encounter for weight management 05/31/2023 Dermatitis, atopic 08/04/2005 Allergic rhinitis 02/18/2000 Asthma ([facility]) 02/18/2000 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 Exam conducted with a sports medicine masseur present. Vitals: Estimated body mass index is 40.64 kg/m as calculated from the following: Height as of 10/04/24: 5' 3 . Weight as of this encounter: 229 lb 6.4 oz. BP: 100/72 Patient's last menstrual period was 06/26/2024. ASSESSMENT & PLAN ICD-10-CM 1. 17 weeks gestation of ([facility]) Z3A.17 POCT urinalysis dipstick manually resulted Alpha fetoprotein, maternal Alpha fetoprotein, maternal 2. Second trimester ([facility]) Z34.92 POCT urinalysis dipstick manually resulted Alpha fetoprotein, maternal Alpha fetoprotein, maternal 3. History of hyperthyroidism Z86.39 4. Well woman exam with routine gynecological exam Z01.419 Pap Smear HPV DNA probe, amplified 5. Screening, , for anatomic survey ([facility]) Z36.89 US OB 14+ weeks anatomy scan US OB 14+ weeks anatomy scan 6. Vaginal discharge N89.8 CHLAMYDIA TRACHOMATIS (GENITO/STI) Neisseria gonorrhea DNA probe, direct 7. Exposure to STD Z20.2 SURESWAB(R) ADVANCED VAGINITIS PLUS, TMA Return OB/Annual Exam: Patient presents today for a annual exam/routine obstetrics appointment. Patient is currently 24u3zndnjhjwo. Patient states she is doing well but has complaints of nausea in the morning. Pap and cultures was obtained without difficulty and patient was given orders for anatomy scan and msAFP to be obtained. Patient states that she was not able to start the Synthroid 25 mcg as her insurance deniedthis as she does need to have the brand and will need documentation to support why she does need this medication. Patient states that the generic does not help her has no effect and does make her tired. Patient advised we will resubmit. Patient is currently taking Synthroid at 300mcg per Dr. Carr her [facility]. Will also refer to [facility] Patient was in the ER for a toe infection and was treated she was having high blood pressure there and she is seeing [facility] for about 1 1/2 to 2 weeks. Referral will be sent to [facility] given her history of hypothyroidism. 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 Exam conducted with a sports medicine masseur present. Vitals: Estimated body mass index is 40.35 kg/m as calculated from the following: Height as of 25: 5' 3 . Weight as of this encounter: 227 lb 12.8 oz. BP: 108/70 Patient's last menstrual period was 06/26/2024. ASSESSMENT & PLAN ICD-10-CM 1. 13 weeks gestation of ([facility]) Z3A.13 POCT urinalysis dipstick manually resulted 2. Second trimester ([facility]) Z34.92 POCT urinalysis dipstick manually resulted New [...] or undercooked meat, and stay away from [facility]. Patient has been consulted regarding any further do's and don'tsof . Patient voiced understanding and all questions and concerns were answered. Pt has comp laints of constipation and nausea and vomiting. Rx for colace, dulcolax, and phenergan faxed to pharmacy Orders Placed This Encounter Procedures POCT urinalysis dipstick manually resulted Follow Up: Patient is to return in 4 weeks for routine OB appointment. 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 Weight as of this [...] dipstick manually resulted , unspecified gestational age ([facility]) - Type and screen; Future - ABO/Rh; Future - CBC and differential - Hemoglobin A1c - RPR - Rubella antibody, IgG - Hepatitis B surface antigen - Hepatitis C antibody - HIV-1 and HIV-2 antibodies - Rapid drug screen, urine; Future Encounter for supervision of normal first in first trimester ([facility]) - Rapid drug screen, urine; Future [...] or undercooked meat, and stay away from [facility]. Patient has also been advised to not [...] by: Marcie Flannery LPN documented in this encounterRay County Memorial [id number] History of Present illness Narrative* Allen Carr MD - 08/09/2024 11:10 AM EDT Brittnee Smith is a 29 y.o. female Allen Carr [...] (BMI) of 40.0 to 44.9 in adult ([facility]) Thyroid disease during , first trimester ([facility]CC) - Synthroid 300 MCG tablet; Take 1 tablet (300 mcg) by mouth Daily - T3, free; Future - T4, free; Future - TSH; Future She just found she is , we will check free T4 free T3 to keep it in the high-normal. Follow up in about 2 months (around 10/09/2024). documented in this encounterRay County Memorial [id number] History of Present illness Narrative* Brandy Galeana LPN - 03/26/2024 1:30 PM ESTAssociated Order(s): IUD Removal Post-Procedure Diagnose(s): Encounter for [...] nursing note reviewed. Exam conducted with a sports medicine masseur present. Vitals: Estimated body mass index is 40.94 kg/m as calculated from the following: Height as of 24: 5' 3 . Weight as of this encounter: 231 lb 1.9 oz. BP: 116/74 No LMP recorded. ASSESSMENT & PLAN Assessment/Plan Encounter Diagnosis: ICD-10-CM 1. Encounter for removal of intrauterine contraceptive device (IUD) Z30.432 IUD Removal Date/Time: 03/26/2024 1:59 PM Performed by: Ha Baker DO Authorized by: Ha Baker DO Consent: Consent obtained: Written Consent given by: Patient Procedure risks and benefits discussed: yes Patient questions answered: yes Patient agrees, verbalizes understanding, and wants to proceed: yes Educational handouts given: yes Instructions and paperwork completed: yes [place] protocol: Patient states understanding of procedure being [...] by Brandy Galeana LPN on behalf of: Ha Baker DO documented in this encounterRay County Memorial [id number] Evaluation note* Encounter Date Diagnosis Assessment Notes Treatment Notes Treatment Clinical Notes Mar, Contact with and (andrade spected) exposure to other viral communicable diseases (ICD-10 - Z20.828) Mar,Viral illness (ICD-10 - B34.9) Advised patient that COVID/Influenza A/B/RSV PCR test was negative today. Advised patient that willtreat as viral illness. Will send in zofran [...] treatment plan. Patient left in stable condition. [facility] Other 12-04-2023 Evaluation note* Encounter Date Diagnosis [...] the ER for worsening symptoms or concerns [facility] Other 10-17-2023 Evaluation note* Encounter Date Diagnosis Assessment Notes Treatment Notes Treatment Clinical Notes Nov, Injury (ICD-10 - T14.90XA) Nov,Sprain of left ankle, unspecified ligament, initial encounter (ICD- 10 - S93.402A)XR images and final report reviewed, no fracture [...] understanding and is agreeable to treatment plan [facility] Other 06-19-2023 Evaluation note* Encounter Date Diagnosis Assessment Notes Treatment Notes Treatment Clinical Notes Jul, Acute sinusitis, rec urrence not specified, unspecified location (ICD-10 - J01.90) Sinusitis home care material was printed Drink plenty fluids, get plenty of rest. Continue home medications as prescribed. Take the amoxicillin with clavulanate as prescribed until gone and the Flonase nasal inhaler as prescribed until yoursymptoms improved. Follow-up with your family physician if no improvement in 2 to 3 days. Take Tylenol as needed for aches or pains. [facility] Other 04-14-2021 NotePatient Outreach ([facility]) BRITTNEE SMITH ([id number]) 1995 F Date Time Provider Department 06/10/20 JOSE A STEWART COVJUDYW During your visit today, we recorded the following information about you: Allergies As of Date: 06/10/2020 Noted Allergy Reaction SULFA (SULFONAMIDE ANTIBIOTICS) 07/02/2018 2 - Rash Date Reviewed: 07/02/2018 Reviewed by: Sakina PickeringSC) - Fully Assessed Order(s):SARS-COVID VACCINE 1ST DOSE APPT [[id number]] Order #: [id number] FUTURE SARS-COVID VACCINE 1ST DOSE APPT [[id number]] Order #: [id number] Prescriptions as of 06/10/2020 Sig: SYNTHROID 125 MCG TABLET Take 2 tablets by mouth once * Problem List As Of Date: 06/10/2020 (None) Encounter Status:Closed by APRIL NIXON on 06/15/20[facility]Evaluation noteNo assessment information availableAshtabula General Hospital Work Phone: Evaluation noteNo InformationNort RamTiger Fitness Other Evaluation note* Diagnosis Onset Date Resolution Status Acute UTI acute [facility] Work Phone: Evaluation note* Diagnosis Onset Date Resolution Status Acute UTI acuteBronchitisacute [facility] Work Phone: Evaluation note* Diagnosis Encounter for removal of intrauterine contraceptive device (IUD) documented in this encounter [facility] HealthcareEvaluation [facility]* Diagnosis Alfredo's disease- Primary Chronic lymphocytic thyroiditis Vitamin D deficiency Encounter for dietary consultation Class 3 severe obesity due to excess calories without serious comorbidity with body mass index (BMI) of 40.0 to 44.9 in adult ([facility] Thyroid disease during , first trimester ([facility]) Hypothyroidism, unspecified type documented in this encounter [facility] HealthcareEvaluation note* Diagnosis Missed menses , unspecified gestational age ([facility]) Encounter for supervision of normal first in first trimester ([facility]) documented in this encounter [facility] HealthcareEvaluation note* Diagnosis Alfredo's disease- Primary Chronic lymphocytic thyroiditis Vitamin D deficiency Encounter for dietary consultation Thyroid disease during , first trimester ([facility]) Hypothyroidism, unspecified type documented in this encounter [facility] HealthcareEvaluation note* Diagnosis 13 weeks gestation of ([facility]) Second trimester ([facility]) state, incidental Nausea and vomiting in ([facility]) Unspecified vomiting of , unspecified as to episode of care History of hyperthyroidism Constipation, unspecified constipation type documented in this encounter [facility] HealthcareEvaluation note* Diagnosis 17 weeks gestation of ([facility]) Second trimester ([facility]) state, incidental History of hyperthyroidism Well woman exam with routine gynecological exam Routine gynecological examination Screening, , for anatomic survey ([facility]) Encounter for anatomic survey Vaginal discharge Leukorrhea, not specified as infective Exposure to STD documented in this encounter [facility] HealthcareEvaluation note* Diagnosis Colposcopy needed after cervical smear Second trimester ([facility]) state, incidental 22 weeks gestation of ([facility]) documented in this encounter [facility] HealthcareEvaluation note* Diagnosis 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- Primary [facility] Diagnosis Hypothyroidism affecting in second trimester- Primary documented in this [facility] general Narrative - Reported* Type Description Date Medical History Hypothyroid Surgical Historyhand surgery [facility] Other History general Narrative - Reported* Type Description Date Medical History Hypothyroid Surgical Historyhand surgeryHospitalization Historychildbirth [facility] Other History of Present illness Narrative* Allen Carr MD - 10/04/2024 10:40 AM EDT Brittnee [...] 6 weeks (around 11/15/2024). documented in this encounterRay County Memorial HospitalInstructionsNot on filedocumented in this encounterProPremier Health SystemInstructionsNot on filedocumented in this encounterProPremier Health SystemInstructionsNot on filedocumented in this encounterC[facility] Summary Purpose Family History No Family History [...] Complaint Poss uti Chief Complaint Poss uti DysuriaReason for VisitAcute UTI Chief Complaint Poss uti R30.0 cough, right ear painReason for VisitAcute UTI Chief Complaint Poss uti R30.0 cough, right ear painReason for VisitAcute UTI Bronchitis Additional Source Comments Source Comments (unrecognize d section and content) In the event this informatio n is protected by the Federal Confidentiality of Alcohol and Drug Abuse Patient Records regulations: The Federal rules restrict any use of the information to criminally investigate or prosecute any alcohol or drug abuse patient.[facility] INFORMATION SOURCE (unrecogn ized section and content) DATE CREATED AUTHOR 06/17/2020 [facility] DATE CREATED AUTHOR AUTHOR'S ORGANIZ ATION 08/05/2022 [facility] DATE CREATED AUTHOR AUTHOR'S ORGANIZ ATION 11/28/2023 [facility] DATE CREATED AUTHOR AUTHOR'S ORGANIZ ATION 10/25/2024 [facility] DATE CREATED AUTHOR AUTHOR'S ORGANIZ ATION 12/14/2024 [facility] DATE CREATED AUTHOR AUTHOR'S ORGANIZ ATION 12/15/2024 [facility] REASON FOR VISIT (unrecogniz ed section and content) ReasonCommentsRemoval of Mirena IUDReasonCommentsThyroid ProblemReasonComments AmenorrheaReasonCommentsThyroid ProblemFollow-upReasonCommentsRoutine VisitReasonCommentsProcedureRoutine VisitReasonCommentsHypothyroidism Care Teams (unrecognized sec tion and content) [...] Active Start: April 18, 2023 End: April 18temo Swanson , WALTERNAttenforrest ProviderActiveStart: April 18, 2023 End: April 18, 2023 Team Status: Inactive Member Role Status Dates PHYSICIAN NO FAMILY Primary Care Provider Active Start: October 10, 2023 End: October 10, 2023Kulwant Wallace ProviderActiveStart: October 10, 2023 End: October 10, 2023 Team Status: Inactive Member Role Status Dates Diana Altman APRN Attending Provider Active Start: October 10, 2023 End: October 10, 2023 Team Status: Active Member Role Status Dates NON STAFF Primary Care Provider Active Team Status: Inactive Member Role Status Dates Amanda Victoria APRN Attending Provider Active S tart: November 20, 2023 End: November 20, 2023NON STAFFPrimary Care ProviderActiveStart: November 20, 2023 End: November 20, 2023 Team Status: Active Member Role Status Dates NON STAFF Primary Care Provider Active Start: November 20, 2023 Kulwant Royal ProviderActiveStart: November 20, 2023 Team Status: Inactive Member Role Status Dates NON STAFF Primary Care Provider Active Start: November 20, 2023 End: November 19Kulwant Scherer ProviderActiveStart: November 20, 2023 End: November 20, 2023Team MemberRelationshipSpecialtyStart DateEnd Date No Pcp, [place] [address] PCP - GeneralFamily Medicine10/23/24Team MemberRelationshipSpecialtyStart DateEnd Date No Pcp, [place] [address] PCP - GeneralFamily Medicine10/23/24Team MemberRelationshipSpecialtyStart DateEnd Date No Pcp, [place] [address] PCP - GeneralFamily Medicine10/23/24 Goals (unrecognized section and content) Goals may [...] BE BASED ON THE PRIMARY CLINICAL RECORDS. [facility]. provides no warranty or guarantee of the accuracy or completeness of information in this document.
--- NOTE | 2024-12-22 06:59 | PC.NURSE ---
Circular red raised are to upper right buttock.
--- NOTE | 2024-12-22 14:32 | ED_ITS ---
HPI HPI - General Adult General Chief complaint: Skin/Abscess/Foreign Body Stated complaint: possible bug bite Time Seen by Provider: 12/22/24 07:03 Source: patient Mode of arrival: walk-in History of Present Illness HPI narrative: Patient is a 29-year-old healthy female presenting to the emergency department for evaluation of a mosquito bite on her right buttock. Patient states she noticed the insect bite a few days ago. Since then, there has been mildly increased redness and irritation to the sites. She denies any fevers or chills. No other systemic symptoms such as chest pain, shortness of breath, flulike symptoms, nausea, or vomiting. She has been using alcohol and Neosporin on the wound. Related Data Home Medications ?Medication ?Instructions ?Recorded ?Confirmed metformin 500 mg tablet 500 mg PO BID 10/31/2211/04 vit no.95-ferrous 1 tab PO DAILY 10/31/2210/19 fumarate 28 mg-folic acid 800 mcg tablet () levothyroxine 200 mcg tablet 200 mcg PO DAILY 11/04/22 11/04/22 (Synthroid) levothyroxine 75 mcg tablet 75 mcg PO DAILY 11/04/22 0 11/04/22 (Synthroid) Previous Rx's ?Medication ?Instructions ?Recorded cephalexin 500 mg capsule 500 mg PO BID 5 days #10 cap s 12/11/23 phenazopyridine 200 mg tablet 200 mg PO Q8H PRN pain 6 doses #6 12/11/23 (Pyridium) tabs Allergies Allergy/AdvReac Type Severity Reaction Status Date / Time erythromycin base (From Allergy Intermediate Rash Verified 12/22/24 06:53 Pediazole) Sulfa (Sulfonamide Allergy Intermediate Rash Verified 12/22/24 06:53 Antibiotics) sulfisoxazole (From Allergy Intermediate Rash Verified 12/22/24 06:53 Pediazole) Opioid HPI Opioid Management Most Recent Opioid Data: Last Pain Scale 5 11/05/22, 21:31 Ur Phencyclidine Scrn, (NEGATIVE) Negative , 12:50 Review of Systems ROS Status of ROS 10 or more systems reviewed and unremark able except as noted in history and below PFSH PFSH Medical History (Updated 12/22/24 @ 07:23 by Kali Serra DO) Hypothyroid ?E03.9 - Hypothyroidism, unspecified (ICD-10) Surgical History (Updated 10/03/22 @ 19:41 by Marly Wolfe) H/O hand surgery ?Z98.890 - Other specified postprocedural states (ICD-10) Family History (Updated 10/03/22 @ 19:42 by Marly Wofle) Grandfather Family history of diabetes mellitus Family history of cancer Social History (Updated 11/04/22 @ 01:25 by Linda Figueroa) Smoking status: Never smoker Non-prescribed substance use: denies use 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 Known occupational exposures/hazards: No Highest level of school completed/degree received: some college, no degree Are you now , , , , never or living with a partner: In a typical week, how many times do you talk on the telephone with family, friends, or neighbors: 3 or more times per week How often do you get together with friends or relatives: 3 or more times per week How often do you attend yazdanism or scientologist services: 4 or more times per year Little interest or pleasure in doing things: not at all Feeling down, depressed, or hopeless: not at all Feel stressed/tense/nervous/anxious/difficulty sleeping: only a little Do you think of yourself as: straight/heterosexual Gender Identity: female Exam Narrative Exam Narrative: CONSTITUTIONAL: Well-appearing, answering questions and following commands appropriately SKIN: Was warm and dry. EYES: Sclerae white. EARS, NOSE, THROAT: Moist oral mucosa. RESPIRATORY: Nonlabored respirations. Speaking full sentence. No audible wheezing or stridor. CARDIOVASCULAR: Normal rate and regular rhythm. There is no S3, S4, murmur, rub. GASTROINTESTINAL: Abdomen is nondistended. MUSCULOSKELETAL: On the right superior buttock there is a small localized area of erythema approximately 0.5 cm in diameter. There is overlying excoriations. There is no induration, fluctuance, purulent drainage, crepitus, or other evidence of cellulitis/abscess. NEUROLOGIC: Patient is awake and alert. Facies were symmetrical. Constitutional Vital Signs, click to edit/add: Last Vital Signs Temp 98.4 F 12/22/24 06:53 Pulse 87 12/22/24 06:53 Resp 20 12/22/24 06:53 BP 137/85 12/22/24 06:53 Pulse Ox 98 12/22/24 06:53 O2 Del Method Room Air 12/22/24 06:53 Course Vital Signs Vital signs: Vital Signs Temperature 98.4 F 12/22/24 06:53 Pulse Rate 87 12/22/24 06:53 Respiratory Rate 20 12/22/24 06:53 Blood Pressure 137/85 12/22/24 06:53 Pulse Oximetry 98 12/22/24 06:53 Oxygen Delivery Method Room Air 12/22/24 06:53 Temperature 98.4 F 12/22/24 06:53 Pulse Rate 87 12/22/24 06:53 Respiratory Rate 20 12/22/24 06:53 Blood Pressure 137/85 12/22/24 06:53 Pulse Oximetry 98 12/22/24 06:53 Oxygen Delivery Method Room Air 12/22/24 06:53 Medical Decision Making MDM Narrative Medical decision making narrative: Patient presents to the emergency department for evaluation of a mosquito bite on her right buttock that she sustained 3 days ago. Her vital signs are within normal limits. She is afebrile and hemodynamically stable. Patient's history and physical examination is consistent with localized skin irritatio n/hypersensitivity from the mosquito bite. There is no evidence of cellulitis or abscess. She displays no systemic symptoms or signs of sepsis. I do believe the patient is stable for discharge. They were instructed to follow up with PCP as needed. Return precautions were given including any new or worsening symptoms. She was educated on proper wound care instructions, including not using alcohol and rather soap/water. Patient understands and agrees to the plan. FINAL IMPRESSION: #Acute localized skin reaction to mosquito bite DISPOSITION: Discharged home CONDITION: Good Discharge Plan Discharge Chief Complaint: Skin/Abscess/Foreign Body Clinical Impression: Insect bites Patient Disposition: Home, Self-Care Time of Disposition Decision: 07:22 Condition: Good Mode of Transportation: Private Vehicle Prescriptions / Home Meds: No Action levothyroxine [Synthroid] 200 mcg tablet 200 mcg PO DAILY levothyroxine [Synthroid] 75 mcg tablet 75 mcg PO DAILY PNV no.95-ferrous fumarate-FA [] 28 mg iron- 800 mcg tablet 1 tab PO DAILY metformin 500 mg tablet 500 mg PO BID cephalexin 500 mg capsule 500 mg PO BID 5 Days Qty: 10 0RF phenazopyridine [Pyridium] 200 mg tablet 200 mg PO Q8H PRN (Reason: pain) Qty: 6 0RF Print Language: Tamazight Instructions: Insect Bite or Sting (ED) Referrals: Physician,Non-Staff, MD [Primary Care Provider] - 1 week Discharge Date/Time: 12/22/24 07:39
== END 2024-12-22 07:39 | disposition home or self-care (01) ==
PROVIDERS: Emergency Provider Student in an Organized Health Care Education/Training Program
DX: S30.860A Insect bite (nonvenomous) of lower back and pelvis, initial encounter (principal); W57.XXXA Bitten or stung by nonvenomous insect and other nonvenomous arthropods, initial encounter
CPT/HCPCS: 99281

== ENCOUNTER 2025-01-30 09:40 | Outpatient (OUT) | payer OTHER, SELFPAY ==
--- OUTSIDE RECORDS SUMMARY | 2025-01-21 14:00 | XMS_ITS | Encounter Summary ---
Author Organization [employer] tem Address [id number] [address] [place] [address] Care Team Providers Care Talent Buyer Name Role Phone No Pcp, No Pcp Primary Care Provider Unavailabl e Reason for Referral * Diagnostic Imaging (Routine) - Pending ReviewSpecialtyDiagnoses / Procedures Referred By ContactReferred To ContactMaternal and Medicine Diagnoses Hypothyroidism affecting in second trimester Procedures [facility] with or without consult Kenji Plascencia MD [address] [address] Phone: tel: fax: Maternal- Medicine at [facility] [address] [place] [address] Phone: tel: fax: Referral IDStatusReasonStart DateExpiration DateVisits RequestedVisits [id number]/ Reason for Visit * Diagnostic Imaging (Routine) - Pending ReviewSpecialtyDiagnoses / Procedures Referred By ContactReferred To ContactMaternal and Medicine Diagnoses Hypothyroidism affecting in second trimester Procedures [facility] with or without consult Kenji Plascencia MD [address] [address] Phone: tel: fax: Maternal- Medicine at [facility] [address] [place] [address] Phone: tel: fax: Referral IDStatusReasonStart DateExpiration DateVisits RequestedVisits [id number] Encounter Details DateTypeDepartmentCare Team (Latest Contact Info)Frpymdrumsb52/25/2025 2:00 PM EST - 01/21/2025 11:59 PM ESTHospital Encounter [facility] [address] [place] [address] Hypothyroidism affecting in second trimester Discharge Disposition: Home Social History Tobacco UseTypesPacks/DayYears UsedDateSmoking Tobacco: NeverSmokeless Tobacco: NeverAlcohol UseStandard Drinks/WeekCommentsNot Currently0 (1 standard drink = 0.6 oz pure alcohol)ChildcareAnswerDate RtuhikbqVdhxyytkhTrhjlyf79/12/2019 EmploymentAnswerDate LwnbmfbrVyyjtxojitKxcfpcq12/12/2019Hunger ScreeningAnswer Date RecordedWithin the past 12 months we worried whether our food would run out before we got money to buy more.Never True12/13/2024Within the past 12 months the food we bought just didn't last and we didn't have money to get more.Never True12/13/2024Estimated Date of BdmelczgHgjejqthMzd01/13/2026Based on UltrasoundSex and Gender InformationValueDate RecordedSex Assigned at BirthNot on fileLegal WksRlbjss70/06/2015 11:49 AM EDTGender IdentityNot on fileSexual OrientationNot [...] this encounter Procedures Procedure NamePriorityDate/TimeAssociated DiagnosisCommentsUS MFM OB FOLLOW-UP, 1 TZSDWTcawziq27/25/2025 3:08 PM EST Hypothyroidism affecting in second trimester documented in this encounter Results * US MFM OB FOLLOW-UP, 1 FETUS (01/21/2025 3:08 PM EST)Anatomical Region LateralityModalityOB-GYNUltrasoundSpecimen (Source)Anatomical Location / LateralityCollection Method / VolumeCollection TimeReceived Time01/21/2025 2:12 PM EST Narrative 01/22/2025 1:56 PM EST NAME: ??LUIS BEAULIEU : 1995 SEX: F Accession Number: [id number] ORDERING PHYSICIAN: KENJI PLASCENCIA REFERRING PHYSICIAN: IVY RUVALCABA ADDENDUM updated recommendations Coding Procedures ? 62430: Ultrasound, uterus, real time with image documentation, follow up,transabdominal ? approach per fetus Indication Screening for follow-up survey, Obesity in , Hypothyroidism, History of gestational hypertension, History of prior with gestational diabetes. History OB History ? 4. Para 3 ? T3 Current Cell free DNA ?low risk analysis Maternal Assessment Physical Exam ??Height 163 cm, 5 ft 4 in. Weight 107 kg, 235 lb. Initial weight 108 kg, 237 lb. BMI40.34 kg/m??. Initial ? BMI 40.68 kg/m??. Weight gain -1 kg, -2 lb Method Transabdominal ultrasound examination. View: Suboptimal view: limited by position and maternal body habitus. Wolfe . Number of fetuses: 1 Dating LMP on: ?06/26/2024 GA by LMP ?29 w + 6 d GARRETT by LMP: ?04/02/2025 Previous Ultrasound on: ?09/05/2024 Type of prior assessment: ?GA GA at prior assessment date ?8 w + 6 d GA by previous U/S ? 28 w + 4 d GARRETT by previous Ultrasound: ?04/11/2025 Ultrasound examination on: ? 01/21/2025 GA by U/S based upon: ??AC, BPD, Femur, HC GA by U/S ?29 w + 5 d GARRETT by U/S: ?04/03/2025 Assigned: ?based on ultrasound (GA), selected on 12/13/2024 Assigned GA (weeks days) ? 28 w + 4 d Assigned GARRETT: ??04/11/2025 General Evaluation Cardiac activity Present. FHR 140 bpm. Presentation: cephalic Placenta: Placental site: posterior, previously documented away from cervical os Umbilical cord: Cord vessels: 3 vessel cord. Insertion site: documented previously Amniotic fluid: Amount of AF: normal amount. MVP 5.6 cm Biometry Standard BPD ?72.8 mm 29w 1d 59% Hadlock OFD ?93.3 mm 30w 1d 86% Jocelyn HC ? 266.2 mm ?29w 0d 30% Hadlock AC ? 271.3 mm ?31w 2d 97% Hadlock Femur ??55.9 mm 29w 3d 60% Hadlock Humerus ?50.1 mm 29w 2d 65% Jocelyn HC / AC ?0.98 EFW ? 1,542 g ? 91% Hadlock EFW (lb) ? 3 lb EFW (oz) ? 6 oz EFW by: ?Hadlock (CTQ-VQ-LB-FL) Extended Tibia ??51.5 mm 30w 5d 96% Jocelyn Game Designer ? 2.8 mm Nasal bone ? 7.7 mm ?? 5% Sonek Head / Face / Neck Cephalic index 0.78 ? 40% Nicolaides Nasal bone: ?present Extremities / Bony Struc FL / BPD ? 0.77 FL / HC ?0.21 FL / AC ?0.21 Other Structures FHR ?140 bpm Anatomy The following structures appear normal: Head/Neck: Cranium. Lateral ventricles. Cavum septi pellucidi. Parenchyma. Face: Lips. Profile. Nose. Nasal bone. Heart/Thorax: 4-chamber view. Ductal arch view. Cardiac rhythm. ? Diaphragm. Abdomen: Stomach. Kidneys. Bladder. Extremities/Skeleton: Right hand. Left foot. Skeleton The following structures could not be adequately visualized: Heart / Thorax RVOT view. LVOT view. 3-vessel view. 4-fandfy-zovmqee view. Interventricular septum.Great vessels. ? Cardiac position. Cardiac axis. Cardiac size. The following structures were documented previously: Head / Neck ?Choroid plexus. Midline falx. Cerebellum. Cisterna magna. Vermis. ? Neck. Face ?? Maxilla. Mandible. Orbits. Heart / Thorax Situs. Aortic arch view. Bicaval view. ? Right lung. Left lung. Abdomen ?Abdom. wall. Cord insertion. Right renal artery. Left renal artery. Genitals. Spine: Cervical spine. Thoracic spine. Lumbar spine. Sacral spine. Extremities / ??Right upper arm. Right forearm. Left upper arm. Left forearm. Left hand. Right upper leg. Right lower ? leg. Right foot. Left upper leg. Left lower leg. Maternal Structures Uterus Visualized Cervix Suboptimal ? Approach - Transabdominal Right Ovary ?Not visualized Left Ovary ? Not visualized Cul de Sac ? Suboptimal Impression Single live intrauterine consistent with 28w 4d with an GARRETT of 04/11/2025. Macrosomic growth. EFW measures at the 91%, AC measures at the 97%. Amniotic fluid MVP measures 5.6 cm. Recommendations Macrosomic growth pattern on ultrasound today, please correlate with clinical findings and diabetesscreen. Please see [facility] recommendations from prior clinical and/or ultrasound report documentation. anatomic survey is incomplete due to late gestational age and suboptimal visualization. Patient is not scheduled to return for additional ultrasound. Please reschedule for specific concerns or indications. Subsequent follow up or other follow up as clinically determined by primary OB provider unless otherwise specified by [facility]. Results forwarded to ordering provider so they can follow up with the patient as necessary. Procedure Note Janelle No MD - 01/22/2025 NAME: LUIS BEAULIEU : 1995 SEX: F Accession Number: [id number] ORDERING PHYSICIAN: KENJI PLASCENCIA REFERRING PHYSICIAN: IVY RUVALCABA ADDENDUM updated recommendations Coding Procedures 53357: Ultrasound, uterus, real time with image documentation, follow up, transabdominal approach per fetus Indication Screening for follow-up survey, Obesity in , Hypothyroidism,History of gestational hypertension, History of prior with gestational diabetes. History OB History 4. Para 3 T3 Current Cell free DNA low risk analysis Maternal Assessment Physical Exam Height 163 cm, 5 ft 4 in. Weight 107 kg, 235 lb. Initialweight 108 kg, 237 lb. BMI 40.34 kg/m??. Initial BMI 40.68 kg/m??. Weight gain -1 kg, -2 lb Method Transabdominal ultrasound examination. View: Suboptimal view: limited byfetal position and maternal body habitus. Wolfe . Number of fetuses: 1 Dating LMP on: 06/26/2024 GA by LMP 29 w + 6 d GARRETT by LMP: 04/02/2025 Previous Ultrasound on: 09/05/2024 Type of prior assessment: GA GA at prior assessment date 8 w + 6 d GA by previous U/S 28 w + 4 d GARRETT by previous Ultrasound: 04/11/2025 Ultrasound examination on: 01/21/2025 GA by U/S based upon: AC, BPD, Femur, HC GA by U/S 29 w + 5 d GARRETT by U/S: 04/03/2025 Assigned: based on ultrasound (GA), selected on 12/13/2024 Assigned GA (weeks days) 28 w + 4 d Assigned GARRETT: 04/11/2025 General Evaluation Cardiac activity Present. FHR 140 bpm. Presentation: cephalic Placenta: Placental site: posterior, previously documented away fromcervical os Umbilical cord: Cord vessels: 3 vessel cord. Insertion site: documented previously Amniotic fluid: Amount of AF: normal amount. MVP 5.6 cm Biometry Standard BPD 72.8 mm 29w 1d 59% Hadlock OFD 93.3 mm 30w 1d 86% Jocelyn HC 266.2 mm 29w 0d 30% Hadlock AC 271.3 mm 31w 2d 97% Hadlock Femur 55.9 mm 29w 3d 60% Hadlock Humerus 50.1 mm 29w 2d 65% Jocelyn HC / AC 0.98 EFW 1,542 g 91% Hadlock EFW (lb) 3 lb EFW (oz) 6 oz EFW by: Hadlock (IJD-GN-XZ-FL) Extended Tibia 51.5 mm 30w 5d 96% Jocelyn Game Designer 2.8 mm Nasal bone 7.7 mm 5% Sonek Head / Face / Neck Cephalic index 0.78 40% Nicolaides Nasal bone: present Extremities / Bony Struc FL / BPD 0.77 FL / HC 0.21 FL / AC 0.21 Other Structures FHR 140 bpm Anatomy The following structures appear normal: Head/Neck: Cranium. Lateral ventricles. Cavum septi pellucidi.Parenchyma. Face: Lips. Profile. Nose. Nasal bone. Heart/Thorax: 4-chamber view. Ductal arch view. Cardiac rhythm. Diaphragm. Abdomen: Stomach. Kidneys. Bladder. Extremities/Skeleton: Right hand. Left foot. Skeleton The following structures could not be adequately visualized: Heart / Thorax RVOT view. LVOT view. 3-vessel view. 5-odsxxu-ebpscgy view. Interventricular septum. Great vessels. Cardiac position. Cardiac axis. Cardiac size. The following structures were documented previously: Head / Neck Choroid plexus. Midline falx. Cerebellum. Cisterna magna.Vermis. Neck. Face Maxilla. Mandible. Orbits. Heart / Thorax Situs. Aortic arch view. Bicaval view. Right lung. Left lung. Abdomen Abdom. wall. Cord insertion. Right renal artery. Left renalartery. Genitals. Spine: Cervical spine. Thoracic spine. Lumbar spine. Sacral spine. Extremities / Right upper arm. Right forearm. Left upper arm. Leftforearm. Left hand. Right upper leg. Right lower leg. Right foot. Left upper leg. Left lower leg. Maternal Structures Uterus Visualized Cervix Suboptimal Approach - Transabdominal Right Ovary Not visualized Left Ovary Not visualized Cul de Sac Suboptimal Impression Single live intrauterine consistent with 28w 4d with an GARRETT of 04/11/2025. Macrosomic growth. EFW measures at the 91%, AC measures at the97%. Amniotic fluid MVP measures 5.6 cm. Recommendations Macrosomic growth pattern on ultrasound today, please correlate withclinical findings and diabetes screen. Please see [facility] recommendations from prior clinical and/or ultrasoundreport documentation. anatomic survey is incomplete due to late gestational age andsuboptimal visualization. Patient is not scheduled to return for additional ultrasound. Pleasereschedule for specific concerns or indications. Subsequent follow up or other follow up as clinically determined byprimary OB provider unless otherwise specified by [facility]. Results forwarded to ordering provider so they can follow up with thepatient as necessary. Authorizing ProviderResult TypeResult StatusKenji Plascencia MDMagdaleno ORDERABLES Edited Result - Final documented in this encounter Visit Diagnoses Diagnosis Hypothyroidism affecting in second trimester documented in this encounter Care Teams Team MemberRelationshipSpecialtyStart DateEnd Date No Pcp, [place] [address] [facility] - [facility]/23/24documented as of this encounter
--- OUTSIDE RECORDS SUMMARY | 2025-01-28 11:30 | XMS_ITS | Encounter Summary ---
Author Organization [facility] Address [address] [place] [address] [place] [address] Care Team Providers Care Cofferdam Construction Supervisor Name Role Phone Unavailable Primary Care Provider Unavailabl e Reason for Visit * ReasonCommentsRoutine Visit Encounter Details DateTypeDepartmentCare Team (Latest Contact Info)Dqdzquuqgjz45/02/2025 11:30 AM ESTRoutine [facility] [address] [place] [address] Ha Baker DO [address] [place] [address] Third trimester ([facility]); 29 weeks gestation of ([facility]); Elevated glucose tolerance test; History of hyperthyroidism; Macrosomia of fetus affecting management of mother in first trimester, single or unspecified fetus ([facility]) Social History Tobacco UseTypesPacks/DayYears UsedDateSmoking Tobacco: NeverSmokeless Tobacco: NeverAlcohol UseStandard Drinks/WeekCommentsYes2 (1 standard drink = 0.6 oz pure alcohol)Alcohol: 1 or 2 drinks, 2 to 4 times a month; Caffeine: 1 can /weekPHQ-2 AnswerDate RecordedPatient Health Questionnaire-2 Pfinv730 Estimated Date of FvvpofvvEiswqhwtGqj55/13/2026Based on UltrasoundSex and Gender InformationValueDate RecordedSex Assigned at VwjeiBqawjp17/30/2023 8:23 AM EDT Legal FhkRzkssi76/15/2023 7:11 PM EDTGender GckcjoxiMhmoco90/30/2023 8:23 AM EDT Sexual UvpubosflpxWgkzfwpn70/30/2023 8:23 AM EDTdocumented as of this encounter Last Filed Vital Signs Vital SignReadingTime TakenCommentsBlood Ivtldzgy090/6801/28/2025 11:40 AM EST Pulse--Temperature--Respiratory Rate--Oxygen Saturation--Inhaled Oxygen Concentration--Xfbvrm241 kg (242 lb)01/28/2025 11:40 AM ESTHeight--Body Mass Index42.8708 10:07 AM EDTdocumented in this encounter Progress Notes * Brandy Galeana LPN - 01/28/2025 11:30 AM EST Reason for Appointment: Patient ID: Raya Mathur is a 29 y.o. female who presents for Routine Visit Patient presents today for Return OB appointment. MEDICATIONS Current Outpatient Medications Medication Instructions Alcohol Swabs (Alcohol Prep Pad) 70 % pads 1 Pad, Topical, Daily, Use four times daily to check FSBS. bisacodyl (Dulcolax) 10 MG suppository UNWRAP AND INSERT 1 SUPPOSITORY RECTALLY DAILY FOR 10 DAYS Blood Glucose Monitoring Suppl (D-ChartITright Glucometer) w/Device kit 1 kit, Does not apply, Daily, Use four times daily to check FSBS. In the morning prior to breakfast & 1 hour after each meal for a total of 4times daily. fluticasone (Flonase) 50 MCG/ACT nasal spray 1 spray, Daily Glucose Blood (Blood Glucose Test) strip 1 strip, In Vitro, Daily, Use in the morning prior to breakfast, 1 hour after each meal for a total of 4times daily. Lancets Ultra Thin misc 1 each, In Vitro, Daily, Use to check FSBS four times daily levothyroxine (SYNTHROID) 25 mcg, Oral, Daily before breakfast Vit-Fe Fumarate-FA ( Vitamins) 28-0.8 MG tablet 1 tablet, Oral, Daily Synthroid 300 mcg, Oral, Daily before breakfast Synthroid 300 mcg, Oral, Daily ALLERGIES Allergies Allergen Reactions Sulfa Antibiotics Other and Rash Other Reaction(s): Unknown Other Rash and Other PEDIAZOLE Sulfamethoxazole Rash PROBLEMS Active Ambulatory Problems Diagnosis Date Noted Anemia 07/26/2022 Cluster headache syndrome 07/26/2022 Congenital hypothyroidism without goiter 07/26/2022 Hypothyroid 1995 Thyroiditis 06/27/2016 Missed period 07/26/2022 Obesity (BMI 35.0-39.9 without comorbidity) 11/16/2017 Unable to comply with treatment 07/26/2022 ([facility]) 11/28/2017 Exposure to STD 05/31/2023 Encounter for weight management 05/31/2023 Dermatitis, atopic 08/04/2005 Allergic rhinitis 02/18/2000 Asthma ([facility]) 02/18/2000 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 Endocrine: Negative. Allergic/Immunologic: Negative. OBJECTIVE Objective: OBGyn Exam Vitals: Estimated body mass index is 42.87 kg/m?? as calculated from the following: Height as of 10/04/24: 5' 3 . Weight as of this encounter: 242 lb. BP: 108/68 Patient's last menstrual period was 06/26/2024. Assessment/Plan ICD-10-CM 1. Third trimester ([facility]) Z34.93 2. 29 weeks gestation of ([facility]) Z3A.29 POCT urinalysis dipstick manually resulted Assessment/Plan Documented by Brandy Galeana LPN on behalf of: Ha Baker DO documented in this encounter Plan of Treatment DateTypeDepartmentCare Team (Latest Contact Info)Wjfhbphjvar48/12/2025 10:20 AM ESTOffice Visit [facility] [address] [place] [address] Allen Carr MD [address] [place] [address] 02/13/2025 9:00 AM ESTRoutine [facility] [address] [place] [phone] Karla Matthews PA [address] [place], [place] [id number] 02/17/2025 9:00 AM ESTAncillary Procedure [facility] [address] [place] [address] NameTypePriorityAssociated DiagnosesOrder ScheduleGlucose tolerance, 3 hoursLab Routine Elevated glucose tolerance test Expected: 01/28/2025 (Approximate), Expires: 01/28/2026US OB follow up transabdominal approachImagingRoutine History of hyperthyroidism Macrosomia of fetus affecting management of mother in first trimester, single or unspecified fetus ([facility]) x4mnlbd for 4 Occurrences starting 01/28/2025 until 05/29/2025US biophysical profile w non stress testImagingRoutine History of hyperthyroidism Macrosomia of fetus affecting management of mother in first trimester, single or unspecified fetus ([facility]) Expected: 01/28/2025 (Approximate), Expires: 07/29/2025documented as of this encounter Procedures Procedure NamePriorityDate/TimeAssociated DiagnosisCommentsPOCT URINALYSIS TJMWMONMJnhokid70/02/2025 11:47 AM EST 29 weeks gestation of ([facility]) documented in this encounter Results * (ABNORMAL) POCT urinalysis dipstick manually resulted (01/28/2025 11:47 AM EST)ComponentValueRef RangeTest MethodAnalysis TimePerformed AtPathologist SignatureColor, UAYellowClarity, UAClearGlucose, UANegativeNegative - 2000(110) ++++ mg/dLBilirubin, UANegativeNegative - 4(70) +++ mg/dLKetones, UA NegativeNegative - 160(16) ++++ mg/dLSpec Grav, UA1.0101 - 1.03Blood, UA NegativeNegative - 50 John/mcLpH, UA6.55 - 9Protein, UATraceNegative - 2000(20) ++++ mg/dLUrobilinogen, UA1.00.2 - 12 mg/dLLeukocytes, UANegativeNegative - 500+++ Anderson/mcLNitrite, UANegativeNegative - PositiveSpecimen (Source) Anatomical Location / LateralityCollection Method / VolumeCollection Time Received QashVkusr59/02/2025 11:47 AM EST Narrative Authorizing ProviderResult TypeResult StatusCorey Samuel DOPOINT OF CARE TEST ENTER/EDIT ORDERABLESFinal Result documented in this encounter Visit Diagnoses Diagnosis Third trimester ([facility]) state, incidental 29 weeks gestation of ([facility]) Elevated glucose tolerance test Impaired glucose tolerance test History of hyperthyroidism Macrosomia of fetus affecting management of mother in first trimester, single or unspecified fetus ([facility]) documented in this encounter
--- OUTSIDE RECORDS SUMMARY | 2025-01-30 09:45 | XMS_ITS | Encounter Summary ---
Author Organization [facility] Address [address] [place] [address] Care Team Providers Care Air Defense Artillery Officer Name Role Phone Unavailable Primary Care Provider Unavailabl e Encounter Details DateTypeDepartmentCare Team (Latest Contact Info)Kmsnspgxgps40/02/2025amboo flowsheet [facility] [address] [place] [address] Ha Baker DO [address] [place], [facility] Social History Tobacco UseTypesPacks/DayYears UsedDateSmoking Tobacco: NeverSmokeless Tobacco: NeverAlcohol UseStandard Drinks/WeekCommentsYes2 (1 standard drink = 0.6 oz pure alcohol)Alcohol: 1 or 2 drinks, 2 to 4 times a month; Caffeine: 1 can /weekPHQ-2 AnswerDate RecordedPatient Health Questionnaire-2 Xtkxw832 Estimated Date of YxhnsikaYrwmuibbTxs32/13/2026Based on UltrasoundSex and Gender InformationValueDate RecordedSex Assigned at EhrhpYpbwhk73/30/2023 8:23 AM EDT Legal GdqVxhndu84/15/2023 7:11 PM EDTGender PeaxbzkjYoihtp11/30/2023 8:23 AM EDT Sexual AqgsjdvivqaKrsijjvp99/30/2023 8:23 AM EDTdocumented as of this encounter Plan of Treatment DateTypeDepartmentCare Team (Latest Contact Info)Fphtvkvgvtx24/12/2025 10:20 AM ESTOffice Visit [facility] [address] [place] [address] Allen Carr MD [address] [place] [address] 02/13/2025 9:00 AM ESTRoutine [facility] [address] [place] [address] [place] [address] Karla Matthews PA [address] [place], [place] [id number] 02/17/2025 9:00 AM ESTAncillary Procedure [facility] [address] [place] [address] [place] [address] documented as of this encounter Visit Diagnoses Not on filedocumented in this encounter
--- OUTSIDE RECORDS SUMMARY | 2025-01-30 09:46 | XMS_ITS | Encounter Summary ---
Author Organization [employer] [facility] tem Address [id number] [address] [place] [address] Care Team Providers Care Farmworker Name Role Phone No Pcp, No Pcp Primary Care Provider Unavailabl e Encounter Details DateTypeDepartmentCare Team (Latest Contact Info)Ulntuqhufeu25/25/2025Travel Social History Tobacco UseTypesPacks/DayYears UsedDateSmoking Tobacco: NeverSmokeless Tobacco: NeverAlcohol UseStandard Drinks/WeekCommentsNot Currently0 (1 standard drink = 0.6 oz pure alcohol)ChildcareAnswerDate FbcpgorrWxyomaufwXmvztzt81/12/2019 EmploymentAnswerDate FegagtjhXjjhddodgoRwfugcs41/12/2019Hunger ScreeningAnswer Date RecordedWithin the past 12 months we worried whether our food would run out before we got money to buy more.Never True12/13/2024Within the past 12 months the food we bought just didn't last and we didn't have money to get more.Never True12/13/2024Estimated Date of GrrkoswkAptfbmjgTmq36/13/2026Based on UltrasoundSex and Gender InformationValueDate RecordedSex Assigned at BirthNot on fileLegal JoqZqjptn03/06/2015 11:49 AM EDTGender IdentityNot on fileSexual OrientationNot on filedocumented as of this encounter Plan of Treatment Not on file documented as of this encounter Visit Diagnoses Not on filedocumented in this encounter Care Teams Team MemberRelationshipSpecialtyStart DateEnd Date No Pcp, [place] [address] PCP - GeneralFamily Medicine10/23/24documented as of this encounter
--- OUTSIDE RECORDS SUMMARY | 2025-01-30 09:46 | XMS_ITS | Clinical Summary ---
Author Organization [employer] tem Address [id number] [address] 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 blvwky1212/13/2024Estimated Date of DeliveryCommentsYes 6Based on Ultrasound Encounters DateTypeDepartmentCare LjrvWngqayxuhhw10/25/2025 2:00 PM EST - 01/21/2025 11:59 PM ESTHospital [facility]counter [facility] [address] [phone] Hypothyroidism affecting in second trimester Discharge Disposition: Home01/21/20256958Wdmouh30/17/2025 8:45 AM EDTOffice Visit Maternal- Medicine at [facility] [address] [place] [phone] Kenji Plascencia MD 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) 12/13/2024 7:30 AM EDT - 12/13/2024 11:59 PM EDTHospital Encounter [facility] - [facility] [address] [place] [phone] Screening, , for anatomic survey Discharge Disposition: Home12/13/2024Orders Only Maternal- Medicine at [facility] [address] [place] [phone] Eun Mcgrath RN Hypothyroidism affecting in second trimester (Primary Dx)12/13/2024 Eqpckn1812/12/20246425Cvlath30/17/2025bstract Maternal- Medicine at [facility] [address] [place] [phone] Kenji Plascencia MD from Last 3 Months Family History Medical HistoryRelationNameCommentsHypothyroidismFatherDiabetesMaternal GrandfatherLiver diseaseMaternal GrandfatherDiabetesPaternal GrandfatherLymphoma Paternal GrandfatherRelationNameStatusCommentsFatherAliveMaternal Grandfather DeceasedMotherAlivePaternal Grandfather Social History Tobacco UseTypesPacks/DayYears UsedDateSmoking Tobacco: NeverSmokeless Tobacco: Never Tobacco Cessation:Counseling Given: Not Answered Alcohol UseStandard Drinks/WeekCommentsNot Currently0 (1 standard drink = 0.6 oz pure alcohol)ChildcareAnswerDate TszvsaszTipsdbrwuMmkapnc16/12/2019Employment AnswerDate DxmscigpKyntqqewpqFdtbcmc60/12/2019Hunger ScreeningAnswerDate RecordedWithin the past 12 months we worried whether our food would run out before we got money to buy more.Never True12/13/2024Within the past 12 months the food we bought just didn't last and we didn't have money to get more.Never True12/13/2024Estimated Date of TikmqzteLvtqxrnlRve49/13/2026Based on UltrasoundSex and Gender InformationValueDate RecordedSex Assigned at BirthNot on fileLegal TsiLaueco83/06/2015 11:49 AM EDTGender IdentityNot on fileSexual OrientationNot on file Last Filed Vital Signs Vital SignReadingTime TakenCommentsBlood Zqbyxgeh188/7312/13/2024 8:03 AM EDT Kqoik343712/13/2024 8:03 AM DHHBxjikuhfqrv41 ??C (98.6 ??F)10/23/2024 1:18 PM EDT Respiratory Svfs875010/23/2024 2:45 PM EDTOxygen Rzdwqpcjfj06%10/23/2024 2:45 PM EDTInhaled Oxygen Concentration--Nkiogm411.8 kg (235 lb 6.4 oz)12/13/2024 8:03 AM CPZLkocpq868.6 cm (5' 4.02 )12/13/2024 8:03 AM EDTBody Mass Index40.39 12/13/2024 8:03 AM EDT Plan of Treatment Health MaintenanceDue DateLast DoneCommentsDepression Tjdhzejsi62/01/2006dult BMI Follow Up Plan2011DTaP,Tdap and Td Vaccines (2 - Td or Tdap)08/05/2015 08/04/2005Influenza Fuycich5610/28/2024RSV ( or age 60+ yrs) (1 - Risk 1-dose series)02/14/2025dult BMI Krgfqehoa29Tobacco Wndmvhzqo58Pap Smear Medical Devices Not on file Procedures Procedure NamePriorityDate/TimeAssociated DiagnosisCommentsUS MFM OB FOLLOW-UP, 1 XZNTVEcoxsnz29/25/2025 3:08 PM EST Hypothyroidism affecting in second trimester US MFM COMPREHENSIVE ANATOMIC XLGLYCErqlufn31/17/2025 8:50 AM EDT Screening, , for anatomic survey from Last 3 Months Results * US MFM OB FOLLOW-UP, 1 FETUS (01/21/2025 3:08 PM EST) Only the most recent of2 resultswithin the time period is included. Anatomical RegionLateralityModalityOB-GYNUltrasoundSpecimen (Source)Anatomical Location / LateralityCollection Method / VolumeCollection TimeReceived Time 01/21/2025 2:12 PM EST Narrative 01/22/2025 1:56 PM EST NAME: ??LUIS BEAULIEU : 1995 SEX: F Accession Number: [id number] ORDERING PHYSICIAN: KENJI PLASCENCIA REFERRING PHYSICIAN: IVY RUVALCABA ADDENDUM updated recommendations Coding Procedures ? [id number]: Ultrasound, uterus, real time with image documentation, [...] (oz) ? 6 oz EFW by: ?Hadlock (LMM-IL-PZ-FL) Extended Tibia ??51.5 mm 30w 5d 96% Jocelyn Veneer Cutter ? 2.8 mm Nasal bone ? 7.7 [...] Thorax RVOT view. LVOT view. 3-vessel view. 4-mhtbsy-cktuoap view. Interventricular septum.Great vessels. ? Cardiac position. [...] with clinical findings and diabetesscreen. Please see [facility] recommendations from prior clinical and/or ultrasound report [...] BEAULIEU : 1995 SEX: F Accession Number: [id number] ORDERING PHYSICIAN: KENJI PLASCENCIA REFERRING PHYSICIAN: IVY RUVALCABA ADDENDUM updated recommendations Coding Procedures [id number]: Ultrasound, uterus, real time with image documentation, [...] EFW (oz) 6 oz EFW by: Hadlock (TBJ-HF-VH-FL) Extended Tibia 51.5 mm 30w 5d 96% Jocelyn Veneer Cutter 2.8 mm Nasal bone 7.7 mm 5% [...] Thorax RVOT view. LVOT view. 3-vessel view. 2-xcywnh-jwyjynt view. Interventricular septum. Great vessels. Cardiac position. [...] withclinical findings and diabetes screen. Please see [facility] recommendations from prior clinical and/or ultrasoundreport documentation. anatomic survey is incomplete due to late gestational age andsuboptimal visualization. Patient is not scheduled to return for additional ultrasound. Pleasereschedule for specific concerns or indications. Subsequent follow up or other follow up as clinically determined byprimary OB provider unless otherwise specified by M. Results forwarded to ordering provider so they can follow up with thepatient as necessary. Authorizing ProviderResult TypeResult StatusKenji BEYER US ORDERABLES Edited Result - Final from Last 3 Months Insurance Care Teams Team MemberRelationshipSpecialtyStart DateEnd Date No Pcp, [place] [address] [facility]
--- OUTSIDE RECORDS SUMMARY | 2025-01-30 09:46 | XMS_ITS | Encounter Summary ---
Author Organization [facility] Address [address] [place] [address] Care Team Providers Care Tire Molder Name Role Phone Unavailable Primary Care Provider Unavailabl e Encounter Details DateTypeDepartmentCare Team (Latest Contact Info)Almklzbfuut91/26/2025bstract [facility] [address] [place] [address] Ha Baker DO [address] Karina Aguirre, [facility] Social History Tobacco UseTypesPacks/DayYears UsedDateSmoking Tobacco: NeverSmokeless Tobacco: NeverAlcohol UseStandard Drinks/WeekCommentsYes2 (1 standard drink = 0.6 oz pure alcohol)Alcohol: 1 or 2 drinks, 2 to 4 times a month; Caffeine: 1 can /weekPHQ-2 AnswerDate RecordedPatient Health Questionnaire-2 Gpbrs723 Estimated Date of PcbetsxlTbidzkcxGjk03/13/2026Based on UltrasoundSex and Gender InformationValueDate RecordedSex Assigned at YnisbNnqjkj59/30/2023 8:23 AM EDT Legal XofTvdytd90/15/2023 7:11 PM EDTGender FdirvqnsFhsbmw63/30/2023 8:23 AM EDT Sexual DeelwllyfggUpvbwtoa95/30/2023 8:23 AM EDTdocumented as of this encounter Plan of Treatment DateTypeDepartmentCare Team (Latest Contact Info)Bkrwzyxsktx14/12/2025 10:20 AM ESTOffice Visit [facility] [address] [place] [address] Allen Carr MD [address] [place] [address] 02/13/2025 9:00 AM ESTRoutine [facility] [address] [place] [address] [place] [address] Karla Matthews PA [address] [facility] [address] [place], [place] [id number] 02/17/2025 9:00 AM ESTAncillary Procedure [facility] [address] [place] [address] [place] [address] documented as of this encounter Visit Diagnoses Not on filedocumented in this encounter
--- OUTSIDE RECORDS SUMMARY | 2025-01-30 09:46 | XMS_ITS | Clinical Summary ---
Author Organization [facility] Address [address] [place] [address] Care Team Providers Care Correctional Nurse Name Role Phone Unavailable Primary Care Provider Unavailabl e Allergies Active AllergyReactionsCriticalityNoted DateCommentsOtherRash,WdzcrVnn38/24/2023 PEDIAZOLE Sulfa AntibioticsOther,SojpOtotuz03/22/2012 Other Reaction(s): Unknown XbfqgsqecgrtyhbyPomyVrx05/22/2023 Medications MedicationSigDispense QuantityRefillsLast FilledStart DateEnd DateStatus fluticasone (Flonase) 50 MCG/ACT nasal spray Administer 1 spray into each nostril Daily Shake gently. Before first use, prime pump. After use, clean tip and replace cap.Active Vit-Fe Fumarate-FA ( Vitamins) 28-0.8 MG tablet Indications:Positive urine test ([facility])Take 1 tablet by mouth Daily 30 tablet 306/30/671690/30/6Active Synthroid 300 MCG tablet Indications:Hypothyroidism, unspecified typeTake 1 tablet (300 mcg) by mouth in the morning. Take before meals. 360 tablet 10/04/938960/6Active bisacodyl (Dulcolax) 10 MG suppository Indications:Constipation, unspecified constipation typeUNWRAP AND INSERT 1 SUPPOSITORY RECTALLY DAILY FOR 10 DAYS 10 suppository 5Active levothyroxine (Synthroid) 25 MCG tablet Indications:History of hyperthyroidismTake 1 tablet (25 mcg) by mouth in the morning. Take before meals. 30 tablet 1109/12/474387/6Active Synthroid 300 MCG tablet Indications:Alfredo's disease,Thyroid disease during , first trimester ([facility])Take 1 tablet (300 mcg) by mouth Daily 90 tablet /6Active Lancets Ultra Thin [facility] Indications:Gestational diabetes mellitus (GDM), antepartum, gestational diabetes method of control unspecified([facility]-HCC),Elevated glucose tolerance test1 each by In Vitro route Daily Use to check FSBS four times daily 150 each 5Active Alcohol Swabs (Alcohol Prep Pad) 70 % pads Indications:Gestational diabetes mellitus (GDM), antepartum, gestational diabetes method of control unspecified(HHS-HCC),Elevated glucose tolerance test Apply 1 Pad topically Daily Use four times daily to check FSBS. 150 each 5Active Glucose Blood (Blood Glucose Test) strip Indications:Gestational diabetes mellitus (GDM), antepartum, gestational diabetes method of control unspecified([facility]HS-HCC),Elevated glucose tolerance test1 strip by In Vitro route Daily Use in the morning prior to breakfast, 1 hour after each meal for atotal of 4times daily. 150 strip 5Active Blood Glucose Monitoring Suppl (D-Mindframe Glucometer) w/Device kit Indications:Gestational diabetes mellitus (GDM), antepartum, gestational diabetes method of control unspecified(HHS-HCC),Elevated glucose tolerance test1 kit Daily Use four times daily to check FSBS. In the morning prior to breakfast & 1 hour after each meal for a total of 4times daily. 1 kit 6Active Active Problems ProblemNoted DateDiagnosed DateAcute zlvezgykra54/17/2025Acute streptococcal wrhekeqtkhs55/17/2025Exposure to STD05/31/2023Encounter for weight management 7527Hvnwuu06/30/2023Cluster headache /30/2023ongenital hypothyroidism without rqmzmq5907/26/2022Missed fnlnrh5507/26/2022Unable to comply with zwluyqixq58/30/2023Obesity affecting , antepartum ([facility]) 11/13/2018Pregnancy ([facility])11/28/20172784Sztxhqqtztzjciq55/02/2018Obesity (BMI 35.0-39.9 without comorbidity)11/16/20171600Bvincgcwtll33/01/2017Acute pharyngitis 09/10/2009Chondromalacia of vzmqgin8505/27/2009Encounter for childhood immunizations appropriate for age0708/30/2007Dermatitis, ohcgmd8408/04/2005llergic xhztxdoe06/22/1156Bbzxym30/22/8221Ckhnmarhzuc76/01/1994Estimated Date of PbdqvzrcGuqedfkfVpo56/13/2026ased on Ultrasound Resolved Problems ProblemNoted DateDiagnosed DateResolved DatePregnancy-induced hypertension ([facility])nemia of ([facility]) Encounters DateTypeDepartmentCare FpunVvvbtorigcd56/02/2025 11:30 AM ESTRoutine [facility] [place] [phone] Ivy Baker, Third trimester ([facility]); 29 weeks gestation of ([facility]); Elevated glucose tolerance test; History of hyperthyroidism; Macrosomia of fetus affecting management of mother in first trimester, single or unspecified fetus ([facility])01/28/2025amboo flowsheet [facility] ANTHONY [address] [place] [address] [place] [phone] Ivy Baker DO 01/22/2025bstract [facility] [address] [place] [address] [place] [phone] Ivy Baker DO 01/15/2025Patient Outreach [facility] [address] [place] [place] [address] Karla Campa LPN 01/09/2025 10:50 AM ESTRoutine [facility] [place] [address] Karla Matthews PA Second trimester ([facility]); 26 weeks gestation of ([facility]); Gestational diabetes mellitus (GDM), antepartum, gestational diabetes method of control unspecified([facility]); Elevated glucose tolerance test01/09/2025amboo flowsheet [facility] [address] [place] [address] Karla Matthews PA 12/13/2024bstract [facility] [address] [place] [phone] Ivy Baker, DO 12/13/2024bstract [facility] [address] [place] [address] Ivy Baker, DO 12/13/2024External Result Encounter [facility] [address] [place] [address] Ivy Bakre, DO 12/13/2024Patient Outreach [facility] [address] [place] [place] [address] Karla Campa LPN 12/12/2024 9:30 AM EDTProcedure Visit [facility] [address] [place] [address] Ivy Baker, DO Colposcopy needed after cervical smear; Second trimester ([facility]); 22 weeks gestation of ([facility])11/15/2024Patient Outreach [facility] [address] [place] [place] [address] Karla Campa LPN 11/15/2024Orders Only [facility] [address] [place] [address] Carolina Stone LPN 11/13/2024Telephone [facility] [address] [place] [address] Tess Lopez NP 11/13/2024bstract [facility] [address] [place] [place] [phone] Karla Campa LPN 11/11/2024Telephone [facility] [address] [place] [phone] Allen Carr MD Prior Ybkvafkejhqjf05/12/2025Refill [facility] [address] [place] [address] Marcie Flannery LPN History of okgxrzefrjdaqit00/12/2025bstract [facility] [address] [place] [address] Ivy Baker, DO 11/07/2024 11:10 AM EDTRoutine [facility] [address] [place] [address] Tess Lopez NP 17 weeks gestation of ([facility]); Second trimester ([facility]); History of hyperthyroidism; Well woman exam with routine gynecological exam; Screening, , for anatomic survey ([facility]); Vaginal discharge; Exposure to STD5Clinisync Result Encounter [facility] External Department Unsolicited Tess Lopez NP 11/07/2024bstract [facility] [address] [place] [address] Ivy Baker, 11/07/2024bstract [facility] [address] [place] [address] Karla Matthews PA 11/07/2024External Result Encounter [facility] External Department Unsolicited Tess Lopez NP 5Bamboo flowsheet [facility] [address] [place] [address] Tess Lopez NP from Last 3 Months Immunizations ImmunizationAdministration DatesNext BlyAvll4908/04/2005 Family History Medical HistoryRelationNameCommentsHypothyroidismFatherDiabetesMaternal GrandfatherGrandpaDiabetesOtherpaternal auntsThyroid diseaseOtherpaternal side LymphomaPaternal GrandfatherRelationNameStatusCommentsFatherAliveMaternal GrandfatherGrandpaMotherAliveOtherPaternal Grandfather Social History Tobacco UseTypesPacks/DayYears UsedDateSmoking Tobacco: NeverSmokeless Tobacco: Never Tobacco Cessation:Counseling Given: Not Answered Alcohol UseStandard Drinks/WeekCommentsYes2 (1 standard drink = 0.6 oz pure alcohol)Alcohol: 1 or 2 drinks, 2 to 4 times a month; Caffeine: 1 can /weekPHQ-2 AnswerDate RecordedPatient Health Questionnaire-2 Qndkp357 Estimated Date of MgkvepfvWzmpyhezNqs44/13/2026ased on UltrasoundSex and Gender InformationValueDate RecordedSex Assigned at UrousZsxcti24/30/2023 8:23 AM EDT Legal SqhRcipwv44/15/2023 7:11 PM EDTGender JmjbmfwiQkldcw00/30/2023 8:23 AM EDT Sexual GyjmbaommblRnualbym81/30/2023 8:23 AM EDT Last Filed Vital Signs Vital SignReadingTime TakenCommentsBlood Xukrtpsb964/6801/28/2025 11:40 AM EST Sngiz127610/04/2024 10:07 AM EDTTemperature--Respiratory Qhyb325310/04/2024 10:07 AM EDTOxygen Aduvkuzsuy04%10/04/2024 10:07 AM EDTInhaled Oxygen Concentration-- Jmtrro933 kg (242 lb)01/28/2025 11:40 AM TVNMhdqbf009 cm (5' 3 )10/04/2024 10:07 AM EDTBody Mass Index42.8710/04/2024 10:07 AM EDT Plan of Treatment DateTypeDepartmentCare Team (Latest Contact Info)Ysirlknzfsh37/12/2025 10:20 AM ESTOffice Visit [facility] [address] [place] [address] Allen Carr MD [address] [place] [address] 02/13/2025 9:00 AM ESTRoutine [facility] [address] [place] [phone] Karla Matthews PA [address] [place], [place] [address] 02/17/2025 9:00 AM ESTAncillary Procedure [facility] [address] [place] [phone] Procedures Procedure NamePriorityDate/TimeAssociated DiagnosisCommentsPOCT URINALYSIS EODTXIEOUlzwlnk92/02/2025 11:47 AM EST 29 weeks gestation of ([facility]) POCT URINALYSIS BPVRBNOJQuchxma04/13/2025 11:23 AM EST Second trimester ([facility]) OB 14+ WEEKS ANATOMY SCAN12/13/2024 10:23 AM EDT PMBNJOFRHWJrmvrpw11/16/2025 10:08 AM EDT Colposcopy needed after cervical smear Second trimester ([facility]) 22 weeks gestation of ([facility]) POCT URINALYSIS JFPMKEXMUfzmppv05/16/2025 9:30 AM EDT 22 weeks gestation of ([facility]) RECURRENT VAGINITIS (HTRX)Ivfuxhr6611/07/2024 3:18 PM EDT CULTURE, URINE, SIXAQJLZngulpr33/11/2025 2:08 PM EDT Missed menses POCT URINALYSIS XQQAJXLYXivxvwe14/11/2025 11:41 AM EDT 17 weeks gestation of ([facility]) Second trimester ([facility]) IGP,APTIMA HPV,AGE XMIPFkacgsw02/11/2025 11:14 AM EDT PAP BFWOAFyitnae59/11/2025 12:00 AM EDTfrom Last 3 Months Results * (ABNORMAL) POCT urinalysis dipstick manually resulted (01/28/2025 11:47 AM EST) Only the most recent of4 resultswithin the time period is included. ComponentValueRef RangeTest MethodAnalysis TimePerformed AtPathologist Signature Color, UAYellowClarity, UAClearGlucose, UANegativeNegative - 2000(110) ++++ mg/dLBilirubin, UANegativeNegative - 4(70) +++ mg/dLKetones, UANegativeNegative - 160(16) ++++ mg/dLSpec Grav, UA1.0101 - 1.03Blood, UANegativeNegative - 50 John/mcLpH, UA6.55 - 9Protein, UATraceNegative - 2000(20) ++++ mg/dLUrobilinogen, UA1.00.2 - 12 mg/dLLeukocytes, UANegativeNegative - 500+++ Anderson/mcLNitrite, UA NegativeNegative - PositiveSpecimen (Source)Anatomical Location / Laterality Collection Method / VolumeCollection TimeReceived TyueZjgyo93/02/2025 11:47 AM EST Narrative Authorizing ProviderResult TypeResult StatusCorejona Baker DOPOINT OF CARE TEST ENTER/EDIT ORDERABLESFinal Result * US OB 14+ weeks anatomy scan (12/13/2024 10:23 AM EDT)Anatomical Region LateralityModalityBodyUltrasoundSpecimen (Source)Anatomical Location / LateralityCollection Method / VolumeCollection TimeReceived Time12/13/2024 10:23 AM EDT Narrative 12/13/2024 10:23 AM EDT THIS EXAM WAS PERFORMED AT [facility] NAME: ??LUIS BEAULIEU : 1995 SEX: F Accession Number: [id number] ORDERING PHYSICIAN: FUAD PLASCENCIA REFERRING PHYSICIAN: IVY BAKER Coding Procedures ? 86490: Ultrasound, uterus, real time with image documentation, and maternal evaluation ? plus detailed anatomic examination, transabdominal approach;single or first gestation ? 77065: Ultrasound, uterus, real time with image documentation, [...] view: limited by maternal body habitus. Medical Dimension Mill Worker Dimension Mill Worker declined Wolfe . Number of fetuses: 1 [...] (oz) ? 3 oz EFW by: ?Hadlock (YRA-OQ-PF-FL) Extended Tibia ??36.4 mm 23w 5d 72% Jocelyn Tradeshow Worker ? 4.1 mm CM ? 6.0 mm [...] Heart / Thorax RVOT view. LVOT view. 5-vqfeuf-mnhhetv view. Ductal arch view. Interventricular septum. Great [...] - 12/13/2024 THIS EXAM WAS PERFORMED AT [facility] NAME: LUIS BEAULIEU : 1995 SEX: F Accession Number: [id number] ORDERING PHYSICIAN: FUAD PLASCENCIA REFERRING PHYSICIAN: IVY BAKER Coding Procedures 53625: Ultrasound, uterus, real time with image documentation, and maternal evaluation plus detailed anatomic examination, transabdominalapproach;single or first gestation 75192: Ultrasound, uterus, real time with imagedocumentation, transvaginal [...] Suboptimalview: limited by maternal body habitus. Medical Dimension Mill Worker Dimension Mill Worker declined Wolfe . Number of fetuses: 1 [...] EFW (oz) 3 oz EFW by: Hadlock (WSM-BH-CC-FL) Extended Tibia 36.4 mm 23w 5d 72% Jocelyn Tradeshow Worker 4.1 mm CM 6.0 mm 60% Nicolaides [...] Heart / Thorax RVOT view. LVOT view. 7-rnprxx-lfufvnh view. Ductal archview. Interventricular septum. Great vessels. [...] MVP measures 4.7 cm. Recommendations Please see [facility] documentation from today. Subsequent follow up or other follow up as clinically determined byprimary OB provider unless otherwise specified by [facility]. Results forwarded to ordering provider so they can follow up with thepatient as necessary. The copy-to physician of this order is IVY Phillips The ordering physician of this order is FUAD Salvador Authorizing ProviderResult TypeResult StatusCorey Samuel MOROCHO OB US PROCEDURES Final Result * Colposcopy [...] handouts given: no ?? Authorizing ProviderResult TypeResult StatusCorejona HERNANDEZ CLINIC/BEDSIDE ORDERABLESFinal Result * RECURRENT VAGINITIS (HTRX) (11/07/2024 3:18 PM EDT)ComponentValueRef RangeTest MethodAnalysis TimePerformed AtPathologist SignatureATOPOBIUM NCKMJBH304.961 - 24.689 ppm11/08/2024 7:08 AM EDTHealthTrackRx at LabPortATOPOBIUM VAGINAENot Ftykriiz71.961 - 24.689 ppm11/08/2024 7:08 AM EDTHealthTrackRx at LabPortBVAB 2,3 (BACTERIAL VAGINOSIS ASSOCIATED BACTERIA 2, 3); MOBILUNCUS BJF632.961 - 24.689 ppm11/08/2024 7:08 AM EDTHealthTrackRx at LabPortBVAB 2,3 (BACTERIAL VAGINOSIS ASSOCIATED BACTERIA 2, 3); MOBILUNCUS SPPNot Kerphqkg58.961 - 24.689 ppm11/08/2024 7:08 AM EDTHealthTrackRx at LabPortCANDIDA ALBICANS, PARAPSILOSIS, QUSOUJBYFP151.000 - 30.347 ppm11/08/2024 7:08 AM EDT [facility] at LabPortCANDIDA ALBICANS, PARAPSILOSIS, TROPICALISNot Detected 23.000 - 30.347 ppm11/08/2024 7:08 AM EDTHealthTrackRx at LabPortCANDIDA IGBCJIJC857.000 - 31.618 ppm11/08/2024 7:08 AM EDTHealthTrackRx at LabPort SHOAIB GLABRATANot Kkhouxff41.000 - 31.618 ppm11/08/2024 7:08 AM EDT [facility] VMMARP288.000 - 30.873 ppm11/08/2024 7:08 AM EDTHealthTrackRx at [facility] HospitalCANDIDA KRUSEINot Kgigwfgj37.000 - 30.873 ppm 11/08/2024 7:08 AM EDTHealthTrackRx at [facility] SystemsPortCHLAMYDIA BFRHDJZROZY144.000 - 31.586 ppm11/08/2024 7:08 AM EDTHealthTrackRx at [facility] HospitalCHLAMYDIA TRACHOMATIS Not Kzlbvmqd13.000 - 31.586 ppm11/08/2024 7:08 AM EDTHealth[facility] at [facility] GARDNERELLA APYNEDGBS820.961 - 24.689 ppm11/08/2024 7:08 AM EDTHealthTrackRx at [facility] HospitalGARDNERELLA VAGINALISNot Mqzfzggs72.961 - 24.689 ppm11/08/2024 7:08 AM EDTHealthTrackRx at [facility] HospitalMEGASPHAERA (TYPES 1, 2)019.961 - 24.689 ppm 11/08/2024 7:08 AM EDTHealthTrackRx at [facility] HospitalMEGASPHAERA (TYPES 1, 2)Not Zryptpkz08.961 - 24.689 ppm11/08/2024 7:08 AM EDT[facility] at [facility] [place]ERIA SKMCGBOVYQU211.000 - 32.587 ppm11/08/2024 7:08 AM EDTHealthTrackRx at [facility] HospitalNEISSERIA GONORRHOEAENot Sjibbeeq30.000 - 32.587 ppm11/08/2024 7:08 AM EDTHealthTrackRx at [facility]Val[facility] HospitalTRICHOMONAS IDBBPRLZZ886.000 - 31.995 ppm 11/08/2024 7:08 AM EDTHealthTrackRx at LabPortTRICHOMONAS VAGINALISNot Qiawbxme95.000 - 31.995 ppm11/08/2024 7:08 AM EDT[facility] at [facility] MYCOPLASMA IMLZCKAWTT429.961 - 24.689 ppm11/08/2024 7:08 AM EDTHealthTrackRx at [facility] HospitalMYCOPLASMA GENITALIUMNot Vtgyynem29.961 - 24.689 ppm11/08/2024 7:08 AM EDTHealthTrackRx at [facility]-Valley HospitalSpecimen (Source)Anatomical Location / LateralityCollection Method / VolumeCollection TimeReceived TimeTissue 11/07/2024 3:18 PM EDT11/08/2024 2:20 AM EDT Narrative Authorizing ProviderResult TypeResult StatusTess Lopez NPLAB BLOOD ORDERABLESFinal ResultPerforming OrganizationAddressCity/State/ZIP CodePhone Number [facility] [address] [address] * Urine culture (11/07/2024 2:08 PM EDT)Specimen (Source)Anatomical Location / LateralityCollection Method / VolumeCollection TimeReceived TimeUrineUrine specimen obtained by clean catch procedure / Unknown Narrative Authorizing ProviderResult TypeResult StatusCorey Samuel LOPEZ MICROBIOLOGY - GENERAL ORDERABLESFinal ResultPerforming OrganizationAddressCity/State/ZIP [...] at: 01 =G ?[facility] ?? [address] [place], [place] ??[phone] ?? Yi Martin MD, IGP, APTIMA HPV, RFX 16/18,45Note(A).TBHComment: ?? TESTS ? RESULT ??FLAG ??UNITS ?REF RANGE ??LAB DIAGNOSIS: ? [A] ?02 ?? EPITHELIAL CELL ABNORMALITY. ?? ATYPICAL SQUAMOUS CELLS OF UNDETERMINED SIGNIFICANCE (ASC-US). Recommendation: ?[A] ?02 ?? Suggest follow up as clinically appropriate. Specimen adequacy: ?02 ?? Satisfactory for evaluation. No endocervical component is identified. Performed by: ? 02 ?? Abdulkadir Bunn, Ip Litigation Associate (ASCP) Electronically si... ?02 ?? Popyp Joyner MD, Pathologist . ? 02 Pathologist [...] Low,>-Panic High,A-Abnormal,AA-Critical Abnormal Performed at: 02 WB ?[facility] ?? [address] [place], [place] ??[phone] ?? Yi Martin MD, HPV APTIMAPositive(A)NegativeTBHComment: This nucleic acid amplification test detects fourteen high- risk HPV types (16,18,31,33,35,39,45,51,52,56,58,59,66,68) without differentiation. Performed at: ??=G - [facility] ??[id number] Furniture Crater: Yi Martin MD, Phone: ??[phone] Performed at: ??WB - [facility] ??[id number] Furniture Crater: Yi Martin MD, Phone: ??[phone] Specimen (Source)Anatomical Location / LateralityCollection Method / Volume Collection TimeReceived Time11/07/2024 11:14 AM EDT11/07/2024 8:08 PM EDT Narrative [facility] - 11/13/2024 3:08 PM EDT SPATULA-ALONE ENDOCERVIX Authorizing ProviderResult TypeResult StatusKristina Jessica NPLAB BLOOD ORDERABLESFinal ResultPerforming OrganizationAddressCity/State/ZIP CodePhone Number [facility] * (ABNORMAL) Pap Smear (11/07/2024 12:00 AM EDT)Specimen (Source)Anatomical Location / LateralityCollection Method / VolumeCollection TimeReceived Time SwabCervical swab / Unknown Narrative Authorizing ProviderResult TypeResult StatusFazio Nurse [facility] ObLAB CYTOLOGY ORDERABLESFinal ResultPerforming OrganizationAddressCity/State/ZIP CodePhone Number EXTERNAL LAB from Last 3 Months Insurance
--- OUTSIDE RECORDS SUMMARY | 2025-01-30 09:50 | XMS_ITS | CCD ---
Author Organization [facility] Inform ion Partnership [facility] Care Team Providers Care Extension Forester Name Role Phone Scar Bellamy Primary Care Provider [phone] HAYNES Consulting Unavailable SAMUEL [...] of OnsetReaction(s) FacilitySulfonamides (antibiotic) (1 source)Sulfonamides (Antibiotic)Drug Hatmeag77-06-5358NljoEjgqviloj Clinic (6 sources)Erythromycin / sulfiSOXAZOLEDrug Idbjiea92-03-6945kucwLlsThe [facility] Repository (1 source)Sulfonamides (Antibiotic)Drug allergy (disorder)48-75-3841QwnOhio [facility] Surgical [facility] Repository (20 sources)Substance with sulfonamide structure and antibacterial mechanism of action (substance)Drug tocwxkl27-60-8608ezta, OtherFarmington Tomveyi Bidamon Other (6 sources)sulfiSOXAZOLE; Translations: [sulfisoxazole]Drug Vrmiokj42-01-1605 [facility] (8 sources)Sulfonamides (Antibiotic); Translations: [Sulfa (Sulfonamide Antibiotics)]Allergy to rdrdscynp77-44-5885jkhjOdurjmhxwSt. Charles Hospital (6 sources)erythromycin base; Translations: [erythromycin base]Allergy to lucypjohw51-26-1201dnlmKpvbhilsdUniversity Hospitals Portage [facility] (20 sources)Sulfamethoxazole; Translations: [SULFAMETHOXAZOLE]Propensity to adverse -29-3008BkcsVXFU [facility] (20 sources)OtherAllergy to gaormnwis04-64-2994[place], [facility] AT[employer] Access Work Phone: (5 sources)Erythromycin / sulfiSOXAZOLE; Translations: [ERYTHROMYCIN-SULFISOXAZOLE]Drug Xuoatws24-54-8766HaqkYzxVotevc Repository (3 sources)SulfamethoxazoleDrug Axkqwco05-85-1021NetxMohVkmbos Health System Medications Current Medications MedicationDrug Class(es)DatesSig (Normalized)Sig (Original)Albuterol (2 sources)beta2-Adrenergic AgonistStart: 69-83-5457Vshxwqtmv Sulfate Active 2 INH INHALATION EVERY 4-6 HOURS 6.7 14 November 20, 2023 12:00amamoxicillin 875 mg / clavulanate 125 mg oral tablet (1 source)Penicillin-class AntibacterialStart: 28-84-2810oenl 1 tablet by mouth every twelve hoursAmoxicillin-Pot [...] rectal suppository (12 sources)Stimulant LaxativeStart: 10-08-2024 End: 02-41-2868epjskhlyk (Dulcolax) 10 MG suppository Indications: Constipation, unspecified constipation type UNWRAP AND INSERT 1 SUPPOSITORY RECTALLY DAILY FOR 10 DAYS 10 suppository 10/11/2024 JmncgrTeaofnwyuckpedz-Koyikvvvp-Pz (Bromfed Dm) 2-30-10 mg/5 mL syrup (2 sources)Start: 98-67-8959jdge 1 mL by mouth every four to six hours Jkddoordykiuqpu-Ysngksakl-Jv (Bromfed Dm) 2-30-10 mg/5 mL syrup Active 10 ML PO EVERY 4-6 HOURS Sept2023 12:00amciprofloxacin 0.003 mg/mg ophthalmic ointment (2 sources)Quinolone AntimicrobialStart: 84-65-9131Ewqrnfg 0.3 % 1 application into the lower eyelid of affected eye left eye Twice a day for 7 days Jan, Activedocusate sodium 100 mg oral capsule (5 sources)Start: 10-08-2024 End: 12-34-8014gcgx 1 capsule by mouth twice daily as needed for constipation docusate sodium (Colace) 100 MG capsule Indications: Constipation, unspecified constipation type Take 1 capsule (100 mg) by mouth 2 (two) times a day as needed for constipation 30 capsule 5 10/08/2024 11/07/2024 Activefluticasone propionate 0.05 mg/actuat metered dose nasal spray (20 sources)CorticosteroidStart: 44-33-9195htom 2 spray(s) nasal route once dailyFluticasone Propionate [...] mg oral tablet (20 sources)l-ThyroxineStart: 10-08-2024 End: 41-20-5548pyml 1 tablet by mouth before mealtimelevothyroxine (Synthroid) 25 MCG tablet Indications: History of hyperthyroidism Take 1 tablet (25 mcg) by mouth in the morning. Take before meals. 30 tablet 11 11/08/2024 11/08/2025 ActiveStart: 12-28-2022 End: 84-99-6928hlpn 1 tablet by mouth once dailySynthroid 300 MCG tablet Indications: Alfredo's disease , Thyroid disease during , first trimester (HCC) Take 1 tablet (300 mcg) by mouth Daily 90 tablet 1 11/11/2024 05/10/2025 ActiveStart: 16-95-0420qdic 2 tablets by mouth once dailySYNTHROID 125 [...] ActivemethylPREDNISolone 4 mg oral tablet (2 sources)CorticosteroidStart: 11-41-5827gmdh 1 tablet by mouth once Methylprednisolone (Medrol (Maximus)) 4 mg tablets,dose pack Active 0 PO per package directions November 20, 2023 12:00am PO PER PKG DIRpolyethylene glycol 3350 17777 mg powder for oral solution (1 source)Osmotic LaxativeStart: 09-02-2024 End: 87-24-0648zptbphrzjfke glycol (GLYCOLAX) 17 gram packet Take 17 [...] 28-0.8 MG tablet (17 sources)Start: 08-26-2024 End: 79-61-1772qwjx 1 tablet by mouth once dailyPrenatal Vit-Fe Fumarate-FA ( Vitamins) 28-0.8 MG tablet Indications: Positive urine test ([facility]) Take 1 tablet by mouth Daily 30 tablet 3 08/26/2024 08/26/2025 Active promethazine hydrochloride 12.5 mg oral tablet (5 sources)PhenothiazineStart: 10-08-2024 End: 52-34-3045qgxr 1 tablet by mouth every four hourspromethazine (Phenergan) 12.5 MG tablet Indications: Nausea and vomiting in ([facility]) Take 1 tablet (12.5 mg) by mouth every 4 (four) hours 60 tablet 1 10/08/2024 11/07/2024 Active Completed/Discontinued Medications MedicationDrug Class(es)DatesSig (Normalized)Sig (Original)dextromethorphan hydrobromide 15 mg / guaiFENesin 400 mg / pseudoephedrine hydrochloride 60 mg oraltablet (5 sources)alpha-Adrenergic Agonist, Uncompetitive H-vfineh-V-aspartate Receptor Antagonist, Sigma-1 AgonistStart: 04-18-2023 End: 90-62-7076rwnr 4 tablets by mouth every twenty-four hours Mfysefiqpimkskl-Uu-Imralewkjel (Capmist Dm) 60-15-400 mg tablet Discontinued 1 TAB PO EVERY 4-6 HOURS April 18, 2023 1:00am October 10, 2023 5:46pm do not exceed 4 doses per 24 hrslevonorgestrel 0.934572 mg/hr intrauterine system (19 sources)Progestin, Progestin-containing Intrauterine DeviceStart: 12-26-2022 End: 20-12-5229Ziksfkzcuipaef intrauterine device 52 mgnitrofurantoin, macrocrystals 25 mg / nitrofurantoin, monohydrate 75 mg oral capsule (6 sources)Nitrofuran AntibacterialStart: 09-23-2024 End: 62-00-1190yglh 1 capsule by mouth in the morningnitrofurantoin, macrocrystal-monohydrate, (Macrobid) 100 MG capsule Indications: UTI symptoms Take 1 capsule (100 mg) by mouth in the morning and 1 capsule (100 mg) before bedtime. Do all this for 7 days. 14 capsule 09/23/2024 10/08/2024 Discontinued Start: 10-10-2023 End: 81-29-5108seen 1 capsule by mouth every twelve hours at mealtime Nitrofurantoin Monohyd/M-Cryst (Macrobid) 100 mg capsule Discontinued 100 MG PO Every 12 hours 2023 12:00am November 20, 2023 1:06pm must administer with a meal/foodondansetron 4 mg disintegrating oral tablet (10 sources)Serotonin-3 Receptor AntagonistStart: 08-26-2024 End: 21-32-8042mxtm 1 tablet by mouth every six hours as needed for nausea and vomiting and nausea and nauseaondansetron ODT (Zofran-ODT) 4 MG disintegrating tablet Indications: Nausea Take 1 tablet (4 mg) bymouth every 6 (six) hours if needed for nausea or vomiting 30 tablet 2 08/26/2024 10/08/2024 ExpiredStart: 90-61-6038qeqo 1 tablet by mouth every eight hours [...] mg oral tablet (4 sources)Start: 10-10-2023 End: 29-82-0580wrtl 1 tablet by mouth three times dailyPhenazopyridine (Pyridium) 200 mg tablet Discontinued 200 MG PO Three times daily 9 October 10, 2023 12:00am November 20, 2023 1:06pmphentermine hydrochloride 37.5 mg oral tablet (8 sources)Sympathomimetic Amine AnorecticStart: 05-03-2023 End: 66-29-9041lgqk 1 tablet by mouth before mealtimephentermine (Adipex-P) 37.5 MG tablet Indications: Encounter for weight management Take 1 tablet (37.5 mg) by mouth in the morning. Take before meals. 90 tablet 08/07/2023 03/26/2024 Discontinued (Other)Pneumatic Walking Boot (3 sources)Start: 06-50-6669Qcehexafr Walking Boot Nov, Not-TakingStart: 00-09-8185Lxfdmhjnj Walking Boot Nov, Active Problems Active Problems Problem ClassificationProblemDateDocumented DateEpisodic/ChronicAllergic reactions (20 sources)Atopic dermatitis; Translations: [Atopic dermatitis, unspecified] Onset: 673657-65-0929GhpdaasWmeetj (20 sources)Asthma; Translations: [Unspecified asthma, uncomplicated]Onset: 506913-14-0539WkalnhuWniagyf obstructive pulmonary disease and bronchiectasis (2 sources)Bronchitis; Translations: [Bronchitis, not specified as acute or chronic]10-76-7098XarbrzfiTlykrfnzeiwou symptoms and ill-defined conditions (1 source)Dysuria; Translations: [Dysuria]Onset: 95-36-3377AabqhoqnSgvgpacd; including migraine (20 sources)Cluster headache; Translations: [Cluster headache syndrome, unspecified, not intractable]Onset: 436364-47-5923HdieqxbLnyzdtldzgdq; infection of eye (except that caused by tuberculosis or sexually transmitteddisease) (1 source)Hordeolum externum left upper eyelidEpisodicJoint disorders and dislocations; trauma-related (20 sources)Chondromalacia of patella; Translations: [Chondromalacia patellae, unspecified knee]Onset: 789070-12-6567TpvwcuvVswkauaoe disorders (20 sources)Missed period; Translations: [Irregular menstruation, unspecified] Onset: 988564-47-5571MrdmawuDsffysiyldb deficiencies (4 sources)Vitamin D deficiency; Translations: [Vitamin D deficiency, unspecified]28-42-0872CwsmcoqSqttp aftercare (1 source)Encounter for other specified aftercare; Translations: [Encounter for other specified aftercare]Onset: 62-69-5874AkhcxyshIkbtj complications of (20 sources)Maternal obesity complicating , childbirth and the puerperium, antepartum; Translations: [Obesity complicating , unspecified trimester]Onset: 267453-43-6426SnssexwOqqyp complications of (4 sources)Thyroid disease in ; Translations: [Endocrine, nutritional and metabolic diseases complicating , first trimester]08-09-2024 EpisodicOther complications of (2 sources)Vomiting of , unspecified; Translations: [Unspecified vomiting of , unspecified as to episode of care or not applicable] 17-59-6401AfzuuifkWuzre complications of (2 sources)Hypothyroidism in ; Translations: [Endocrine, nutritional and metabolic diseases complicating , second trimester]12-13-2024 EpisodicOther female genital disorders (2 sources)Vaginal discharge; Translations: [Other specified noninflammatory disorders of vagina]91-91-9524XvcuicwfBszfc gastrointestinal disorders (3 sources)Constipation; Translations: [Constipation, unspecified]Onset: 162336-07-5096BodgebqiGpvag gastrointestinal disorders (1 source)Constipation, unspecified; Translations: [Constipation, unspecified] Onset: 48-07-1193RyyjnamqRupko injuries and conditions due to external causes (1 source)Injury, unspecified, initial encounterEpisodicOther lower respiratory disease (2 sources)Cough; Translations: [Cough]94-01-2240UcfqclowYthiz nutritional; endocrine; and metabolic disorders (1 source)Obesity; Translations: [Obesity, unspecified]Onset: 11-16-2017 50-34-3480PtjwsxqLexir nutritional; endocrine; and metabolic disorders (20 sources)Body mass index 30+ - obesity; Translations: [Obesity, unspecified] Onset: 665262-99-2186CbvtmvjLwsvt nutritional; endocrine; and metabolic disorders (2 sources)Severe obesity; Translations: [Class 3 severe obesity due to excess calories without serious comorbidity with body mass index (BMI) of 40.0 to 44.9 in adult ([facility])]59-05-2340XnbcfikSocqg nutritional; endocrine; and metabolic disorders (4 sources)H/O: hyperthyroidism; Translations: [Personal history of other endocrine, nutritional and metabolicdisease]96-20-3129KdsiyztfFknem and delivery including normal (20 sources)Encounter for supervision of normal , unspecified, second trimester; Translations: [Encounter for supervision of normal , unspecified, unspecified trimester]Onset: 11-28-2017 Resolved: 68-77-8394UtdkihfyWevpp screening for suspected conditions (not mental disorders or infectious disease) (8 sources)Encounter for screening for malignant neoplasm of cervix; Translations: [Patient encounter status]Onset: 97-43-5628NotkogheXstvy upper respiratory disease (20 sources)Allergic rhinitis; Translations: [Allergic rhinitis, unspecified] Onset: 031463-67-8953CsfkzwrEfrhjkge codes; unclassified (1 source)20 weeks gestation of ; Translations: [20 WEEKS GESTATION OF ]Onset: 01-01-9545VqrqhndaEidgzmck codes; unclassified (2 sources)Gestation period, 13 weeks; Translations: [13 weeks gestation of ]39-51-7913RaiowywcFdgmbguq codes; unclassified (1 source)9 weeks gestation of ; Translations: [9 weeks gestation of ]Onset: 54-70-1586EmibjrxpQodjxkmv codes; unclassified (2 sources)Gestation period, 17 weeks; Translations: [17 weeks gestation of ]20-22-7782EkgfsowhZnhnhhgu codes; unclassified (1 source)Gestation period, 22 weeks; Translations: [22 weeks gestation of ]79-37-5836OkvwjtpsYueryow and strains (1 source)Sprain of unspecified ligament of left ankle, initial encounter EpisodicThyroid disorders (20 sources)Congenital hypothyroidism without goiter; Translations: [Congenital hypothyroidism without goiter]Onset: 272385-12-3667WaeqwbcJzxvvruxivjs (1 source)Cough, unspecified; Translations: [Cough, unspecified]Onset: 92-74-1934Laikaomesddj (1 source)Injury, unspecified, initial encounter; Translations: [Injury, unspecified, initial encounter]Onset: 37-49-1263Fvgbxxisjadr (20 sources)Unable to comply with treatment; Translations: [Unable to comply with treatment]Onset: 538691-29-6106Qurqmxynoivu (1 source)Wound CheckOnset: 80-21-6741Tdxwyhitaahz (1 source)Constipated - 9 Weeks Onset: 39-94-6919Afnlqop tract infections (6 sources)Acute urinary tract infection; Translations: [Urinary tract infection, site not specified]19-98-2585ZmcrddwcHvtyo infection (5 sources)Viral infection, unspecified; Translations: [Disease caused by 2019-nCoV]Episodic Past or Other Problems Problem ClassificationProblemDateDocumented DateEpisodic/ChronicAcute bronchitis (20 sources)Acute bronchitis; Translations: [Acute bronchitis, unspecified] Onset: 440016-72-3212VlqhvjysPgbzyhcaygszt and procreative management (20 sources)Patient encounter status; Translations: [Encounter for removal of intrauterine contraceptive device]Onset: 815076-81-8160JsjasvqfPxcpjqolty and other anemia (20 sources)Anemia; Translations: [Anemia, unspecified]Onset: 07-26-2022 93-14-6812OfxgswjtTiembiuvzbxx complicating ; childbirth and the puerperium (20 sources)-induced hypertension; Translations: [Gestational [-induced] hypertension withoutsignificant proteinuria, unspecified trimester]Onset: 04-29-2018 Resolved: 316214-47-8682MrhvipyjHzpzodgzaitpl and screening for infectious disease (20 sources)Contact with and (suspected) exposure to other viral communicable diseases; Translations: [Contact with or exposure to other viral diseases]Onset: 33-08-1221AkmaycjaAdzti complications of (20 sources)Anemia of ; Translations: [Anemia complicating , unspecified trimester]Onset: 04-24-2018 Resolved: 298765-44-1637EhrolxdRuqup upper respiratory infections (20 sources)Acute sinusitis, unspecified; Translations: [Acute pharyngitis] Onset: 89-15-1011Clnqgirv Results Test NameValueInterpretationReference RangeFacilityColposcopyon 03-32-7794Tswrg SaludperryNARCISO 12/12/2024 10:24 AM Colposcopy Date/Time: 12/12/2024 [...] noNOMS HealthcareNOMS HealthcareUrinalysis macro (dipstick) panel (U)on 94-48-9598Xgkgpwmcb, UANegativeNegative - 4(70) +++ mg/dL NOMS HealthcareBlood, [...] - 1.03NOMS HealthcareUrobilinogen, UA2.00.2 - 12 mg/dLNOMS HealthcareNONC HealthcareIGP,APTIMA HPV,AGE GDLNon 43-17-5212BTP GDLN ACOG TESTINGNote.NOMS HealthcareComment on above:TESTS RESULT FLAG UNITS REF RANGE LAB Clinician Provided Cytology Information Source.............Endocervix Other.............. No. of containers..01 ThinPrep Vial Age Algo ACOG Berenice... 30-65 FLAG LEGEND: L-Low Normal,H-High Normal,LL-Alert Low,HH-Alert High <-Panic Low,>-Panic High,A-Abnormal,AA-Critical Abnormal Performed at: 01 =G [address] [address] Yi Martin MD, HPV APTIMAPositiveAbnormalNegativeBLUE MOUNTAIN HOS[facility]ITAL HealthcareComment on above:This nucleic acid amplification test detects fourteen high- risk HPV types (16,18,31,33,35,39,45,51,52,56,58,59,66,68) without differentiation. Performed at: =G [facility] [id number] Printing Machine Operator: Yi Martin MD, Phone: [phone] Performed at: [facility] [address] [facility], [place], [place] [id number] Printing Machine Operator: Yi Martin MD, Phone: [phone] IGP, APTIMA HPV, RFX 16/18,45NoteAbnormal.NOMS HealthcareComment on above:TESTS RESULT FLAG UNITS REF RANGE LAB DIAGNOSIS: [A] 02 EPITHELIAL CELL ABNORMALITY. ATYPICAL SQUAMOUS CELLS OF UNDETERMINED SIGNIFICANCE (ASC-US). Recommendation: [A] 02 Suggest follow up as clinically appropriate. Specimen adequacy: 02 Satisfactory for evaluation. No endocervical component is identified. Performed by: Abdulkadir Bunn, Director Of Dementia Operations (ASC) Electronically si... 02 Poppy Joyner MD, [...] Low,>-Panic High,A-Abnormal,AA-Critical Abnormal Performed at: [address] [facility] [address] [place] [address] Yi Martin MD, Interpretation and review of laboratory resultsAbnormalNONC Healthcare SPATULA-ALONE ENDOCERVIX CLINISYNCNOMS HealthcareRECURRENT VAGINITIS (HTRX)on 92-67-8309SZFUWFUBR VAGINAE 0NOMS HealthcareATOPOBIUM VAGINAENot detectedNOMS HealthcareBVAB 2,3 (BACTERIAL VAGINOSIS ASSOCIATED BACTERIA 2, 3); MOBILUNCUS OPU4EVLN HealthcareBVAB 2,3 (BACTERIAL VAGINOSIS ASSOCIATED BACTERIA 2, 3); MOBILUNCUS SPPNot detectedNOMS HealthcareCANDIDA ALBICANS, PARAPSILOSIS, GRXZQQXMLV3DPOL HealthcareCANDIDA ALBICANS, PARAPSILOSIS, TROPICALISNot detectedNOMS HealthcareCANDIDA GLABRATA0 NOMS HealthcareCANDIDA GLABRATANot detectedNOMS HealthcareCANDIDA ZAQANW9TROB HealthcareCANDIDA KRUSEINot detectedNOMS HealthcareCHLAMYDIA WMMYSJNKXTZ6TBUN HealthcareCHLAMYDIA TRACHOMATISNot detectedNOMS HealthcareGARDNERELLA VAGINALIS0 NOMS HealthcareGARDNERELLA VAGINALISNot detectedNOMS HealthcareMEGASPHAERA (TYPES 1, 2)0NOMS HealthcareMEGASPHAERA (TYPES 1, 2)Not detectedNOMS Healthcare MYCOPLASMA BVIZQOJWFB6LJGK HealthcareMYCOPLASMA GENITALIUMNot detectedNOMS HealthcareNEISSERIA HBJCNVPQIIJ0QVIT HealthcareNEISSERIA GONORRHOEAENot detected NOMS HealthcareTRICHOMONAS JILXYGGYZ0GKOP HealthcareTRICHOMONAS VAGINALISNot detectedNOMS HealthcareNOMS HealthcareUrinalysis macro (dipstick) panel (U)on 71-54-1449Ougvsbcwx, UANegativeNegative - 4(70) +++ mg/dLNOMS HealthcareBlood, UANegativeNegative - 50 John/mcLNOMS HealthcareClarity, UAClearNOMS Healthcare Color, UAStrawNOMS HealthcareGlucose, UANegativeNegative - 2000(110) ++++ mg/dL NOMS HealthcareInterpretation and review of laboratory resultsAbnormalNONC HealthcareKetones, UANegativeNegative - 160(16) ++++ mg/dLNOMS Healthcare Leukocytes, UANegativeNegative - 500+++ Anderson/mcLNOMS HealthcareNitrite, UA NegativeNegative - PositiveNOMS HealthcarepH, UA65 - 9NOMS HealthcareProtein, UA PositiveNegative - 2000(20) ++++ mg/dLNOMS HealthcareSpec Grav, UA1.0151 - 1.03 NOMS HealthcareUrobilinogen, UA1.00.2 - 12 mg/dLNOMS HealthcareNOMS Healthcare Urinalysis macro (dipstick) panel (U)on 78-34-4961Aomxqfoug, UANegativeNegative - 4(70) +++ mg/dLNONC HealthcareBlood, UANegativeNegative - 50 John/mcLNONC HealthcareClarity, UAClearNOMS HealthcareColor, UAStrawNONC HealthcareGlucose, UANegativeNegative - 2000(110) ++++ mg/dLNONC HealthcareInterpretation and review of laboratory resultsNormalNONC HealthcareKetones, UANegativeNegative - 160(16) ++++ mg/dLNONC HealthcareLeukocytes, UANegativeNegative - 500+++ Anderson/mcL NOMS HealthcareNitrite, UANegativeNegative - PositiveNOMS HealthcarepH, UA65 - 9 NOMS HealthcareProtein, UANegativeNegative - 2000(20) ++++ mg/dLNOMS Healthcare Spec Grav, UA1.0151 - 1.03NONC HealthcareUrobilinogen, UA1.00.2 - 12 mg/dLNONC HealthcareNONC HealthcareGLUCOSE TOLERANCE 3 HOURon 41-69-6925PQHFPGV TOLERANCE 3 HOURmg/dLNONC HealthcareComment on above:GLU FAST 86 (<95) Col: 10/03/24 1024 GLU 1HR 161 (<180) Col: 10/03/24 1122 GLU 2HR 124 (<155) Col: 10/03/24 1224 GLU 3HR 124 (<140) Col: 10/03/24 1325 CLINISYNCNONC HealthcareALL CBC WITH AUTO DIFFon 31-09-6792KGUIIMHWX ABSOLUTE AUTO0.1NOMS HealthcareBasophils/100 WBC (Bld)0.5 %0.2 - 2.0 %[facility] Eosinophils/100 WBC (Bld)2 %0.9 - 7.0 %NOMS HealthcareErythrocyte distribution width (RBC) [Ratio]12.7 %11.0 - 15.0 %[facility] HospitalHematocrit (Bld) [Volume fraction]36.6 %36.0 - 48.0 %[facility] HospitalHemoglobin (Bld) [Mass/Vol]12.5 g/dL 12.0 - 16.0 g/dLMercy McCune-Brooks HospitalIMMATURE GRANULOCYTES ABS AUTO0.04HighNOCedar County Memorial HospitalImmature granulocytes/100 WBC (Bld)0.4 %0.0 - 0.5 %[facility] Interpretation and review of laboratory resultsAbnormalMercy [facility] Hospital LYMPHOCYTES ABSOLUTE AUTO2.8NOCedar County Memorial HospitalLymphocytes/100 WBC (Bld)29.9 %20.5 - 60.0 %[facility] HospitalMCH (RBC) [Entitic mass]28.7 pg26.7 - 34.0 pgBarnes-Jewish HospitalHC (RBC) [Mass/Vol]34.2 g/dL29.9 - 35.2 g/dLMercy McCune-Brooks HospitalMCV (RBC) [Entitic vol]83.9 fL81.0 - 99.0 fLMercy McCune-Brooks HospitalMONOCYTES ABSOLUTE AUTO0.5NOMS HealthcareMonocytes/100 WBC (Bld)5.2 %1.7 - 12.0 %[facility] HospitalNEUTROPHILS ABSOLUTE AUTO5.9NOMS [facility] SouthNeutrophils/100 WBC (Bld)62 %43.0 - 75.0 %[facility] HospitalPlatelet mean volume (Bld) [Entitic vol]10.8 fL9.5 - 13.5 fLMercy McCune-Brooks HospitalTB EO #0.2NOMS [facility] SouthTB [id number] [facility] RBC4.36NOMS [facility] WBC9.5NOCedar County Memorial HospitalCLINISYNCNSt. Louis Children's HospitalALL CBC WITH AUTO DIFFon 45-80-5645ZZHEGZRCQ ABSOLUTE AUTO0.1NOMS HealthcareBasophils/100 WBC (Bld)0.5 %0.2 - 2.0 %[facility] HospitalEosinophils/100 WBC (Bld)1.2 %0.9 - 7.0 % [facility] HospitalErythrocyte distribution width (RBC) [Ratio]12.6 %11.0 - 15.0 % [facility] HospitalHematocrit (Bld) [Volume fraction]36.8 %36.0 - 48.0 %[facility] HospitalHemoglobin (Bld) [Mass/Vol]12.6 g/dL12.0 - 16.0 g/dLMercy McCune-[facility]oks Hospital IMMATURE GRANULOCYTES ABS AUTO0.05HighNOCedar County Memorial HospitalImmature granulocytes/100 WBC (Bld)0.4 %0.0 - 0.5 %[facility] HospitalInterpretation and review of laboratory resultsAbnormLower Bucks HospitalLYMPHOCYTES ABSOLUTE AUTO3.3NOCedar County Memorial Hospital Lymphocytes/100 WBC (Bld)28.5 %20.5 - 60.0 %[facility] HospitalH (RBC) [Entitic mass]28.8 pg26.7 - 34.0 pgBarnes-Jewish HospitalHC (RBC) [Mass/Vol]34.2 g/dL29.9 - 35.2 g/dLBarnes-Jewish HospitalV (RBC) [Entitic vol]84 fL81.0 - 99.0 fLMercy McCune-Brooks HospitalMONOCYTES ABSOLUTE AUTO0.6NOCedar County Memorial HospitalMonocytes/100 WBC (Bld)5.5 % 1.7 - 12.0 %[facility] HospitalNEUTROPHILS ABSOLUTE AUTO7.4HighMercy McCune-Brooks Hospital Neutrophils/100 WBC (Bld)63.9 %43.0 - 75.0 %[facility] HospitalPlatelet mean volume (Bld) [Entitic vol]10.9 fL9.5 - 13.5 fLMercy McCune-Brooks HospitalTB EO #0.1NOMS Healthcare TBH [id number] County Memorial Hospital RBC4.38NOMS [facility] WBC11.5HighMercy McCune-Brooks HospitalCLINISYNCNSt. Louis Children's HospitalHCG ( test) Ql (U)on 09-05-2024 Interpretation and review of laboratory resultsAbnormLower Bucks HospitalPreg Test, UrPositiveNegativeHermann Area District Hospital HealthcareUS OB TRANSVAGINALon 09-05-2024 OB TRANSVAGINALFINDINGS: [...] No LMP recorded.Urinalysis macro (dipstick) panel (U)on 64-52-5120Afeyhfjxo, UA NegativeNegative - 4(70) +++ mg/dLNOMS HealthcareBlood, UANegativeNegative - 50 John/mcLNONC HealthcareClarity, UAClearNOMS HealthcareColor, UAYellowNOMS HealthcareGlucose, UANegativeNegative - 2000(110) ++++ mg/dLNONC Healthcare Interpretation and review of laboratory resultsNormalNONC HealthcareKetones, UA NegativeNegative - 160(16) ++++ mg/dLBLUE MOUNTAIN HOSPITAL HealthcareLeukocytes, UANegative Negative - 500+++ Anderson/mcLNONC HealthcareNitrite, UANegativeNegative - Positive NOMS HealthcarepH, UA65 - 9NOMS HealthcareProtein, UANegativeNegative - 2000(20) ++++ mg/dLNONC HealthcareSpec Grav, UA1.021 - 1.03NOMS HealthcareUrobilinogen, UA1.00.2 - 12 mg/dLNOMS HealthcareNOMS HealthcarePOCT NURSING URINE MACROSCOPIC UAon 78-92-9997UBXWLXNYE NURNegativeNormalNegDayton VA Medical Center Comment on above:Performed By: #### NUM #### [facility] ([facility]) [address] [place] [address] VIRBLOOD/HGB NURTraceAbnormalNegDayton VA Medical CenterComment on above:Performed By: #### NUM #### [facility] ([facility]) [address] [place] [address] VIRGLUCOSE NURNegativeNonovant health matthews medical centerNegDayton VA Medical Center Comment on above:Performed By: #### NUM #### [facility] ([address] [place] [address] VIRKETONES NURNegativeNormalNegativeWayne HealthCare Main Campus Comment on above:Performed By: #### NUM #### [facility] ([address] [place] [address] VIRLEUKOCYTE ESTERASE NURNegativeNormalNegativeWayne HealthCare Main CampusComment on above:Performed By: #### NUM #### [facility] ([address] [address] VIRNITRITE NURNegativeNormalNegativeWayne HealthCare Main Campus Comment on above:Performed By: #### NUM #### [facility] ([address] [address] VIRPH NUR6.6Iqwsib7.0, 6.0, 6.5, 7.0, 7.5, 8.0, 8.5, 5.5 [facility] Main CampusComment on above:Performed By: #### NUM #### [facility] ([address] [address] VIRPROTEIN NURNegativeNonovant health matthews medical centerNegDayton VA Medical Center Comment on above:Performed By: #### NUM #### [facility] ([address] [address] VIRSPECIFIC GRAVITY ROX>=1.649Ddcmdtmg3.010, 1.015, 1.020, 1.025Wayne HealthCare Main CampusComment on above:Performed By: #### NUM #### [facility] ([address] [address] VIRUROBILINOGEN NUR0.2 E.U./dLNoFirelands Regional Medical Center South Campus Comment on above:Performed By: #### NUM #### [facility] ([address] [address] VIRPOCT , URINE (NUCG)on 70-46-8654Oyzg HCG ( test) Ql (U)PositiveAbnormalNegative, IndeterminateProMedica Salisbury HospitalComment on above:Performed By: #### NUCG #### [facility] ([facility]) [address] [place] [address] VIRTBH PREG QUANT HCGon 51-17-3359QGD SLGEEUMJERMS77914dGQ/mL NOMS HealthcareComment on above:5-50 0.2-1 WEEK 50-500 1-2 WEEKS 100-5,000 2-3 WEEKS 500-10,000 3-4 WEEKS 1,000-50,000 4-5 WEEKS 10,000-100,000 5-6 WEEKS 15,000-200,000 6-8 WEEKS 10,000-100,000 2-3 MONTHS CLINISYNCNOCedar County Memorial HospitalTB PREG QUANT HCGon 55-70-2053XCY OSWOSCOAHRXX49980 mIU/mLNOMS HealthcareComment on above:5-50 0.2-1 WEEK 50-500 1-2 WEEKS 100-5,000 2-3 WEEKS 500-10,000 3-4 WEEKS 1,000-50,000 4-5 WEEKS 10,000-100,000 5-6 WEEKS 15,000-200,000 6-8 WEEKS 10,000-100,000 2-3 MONTHS CLINISYNCNONC HealthcareIUD Removalon 57-11-8297Rkgwd BoresNARCISO 03/27/2024 12:35 PM IUD Removal Date/Time: 03/26/2024 1:59 PM Performed by: Ha Baker DO Authorized by: Ha Baker DO Consent: Consent obtained: Written Consent given by: Patient Procedure risks and benefits discussed: yes Patient questions answered: yes Patient agrees, verbalizes understanding, and wants to proceed: yes Educational handouts given: yes Instructions and paperwork completed: yes Thompson protocol: Patient states understanding of procedure being [...] the office for annual exam unless needed otherwiseECU Health Chowan HospitalNo Panel InformationOrdered By: Amanda Victoria on 49-88-0752VWCBN Antigen (POC)Providence HospitalQuick Strep (POC) Providence HospitalXR chest 2V*on 87-17-1297ML chest 2V*[facility] [place] [address] XRay Report Signed Patient: Brittnee Smith MR#: [id number] 11 : 1995 Acct:[id number] Age/Sex: 28 / F ADM Date: 11/20/23 Loc: [facility] Room: Type: [facility] Attending Dr: Amanda Victoria APRN Copies to: [...] Anda Jr., D.OMelisa11/20/2023 2:04 PM Dictation Location: [place] [address] Transcribed By: [facility] 11/20/23 1404 Dictated By: Shlomo De Anda Jr, DO 11/20/23 140 Signed By: 11/20/23 140[facility] Physician GroupLaboratory - Chemistry and Chemistry - challengeon 77-23-5401Xqzqvcrwg Ql (U)[facility] HospitalGlucose (U) [Mass/Vol][facility] Ketones Ql (U)NegativeProvidence HospitalpH (U)7.0 [pH][facility] Hospitalpecific gravity (U) [Rel density]1.030Providence HospitalUrobilinogen (U) [Mass/Vol]0.2 mg/dLProvidence HospitalLaboratory - Specimen informationon 90-70-1556Vzkhkgrgat (U)cloudy Providence HospitalColor (U)yellowProvidence HospitalLaboratory - Urinalysison 46-94-5674Vsuqbgbuv esterase Test strip Ql (U) smallProvidence HospitalNitrite Ql (U)PositiveProvidence HospitalProtein Ql (U)100Providence HospitalNo Panel Informationon 16-81-7145Xplbk Occult BloodlargeProvidence Hospital Urine Cultureon 70-09-0235Lpdqeply identified Cx Nom (U)ORGANISM: Escherichia coli (O:ESCCOL) [place] Count >100,000 Aerobic MEENA Charge (NMIC56) SUSCEPTIBILITY [...] RESISTANT TO ALL B-LACTAM DRUGS. PERFORMED BY: [place] [id number] PATHOLOGIST ECONOMIC DEVELOPMENT DIRECTOR ROXANNE DIETRICH M.D.NormalAdventhealth Lake Wales Physician GroupComment on above:Performed By: #### CUU #### [facility] [address] [place] [address] USAUrine culture routineOrdered By: Diana Altman on 57-19-3665Asopkvai identified Cx Nom (U)Escherichia coliAbnormalProvidence HospitalNo Panel InformationOrdered By: Linda Swanson on 15-88-0306OBZVM/Influenza Antigen (POC)[facility] COVID/FLU/RSV RT-PCRon 85-13-6215QYTA-CoV-2 (COVID-19) RNA NICHOLE+probe Ql (Unsp spec)NegativeFarmington Tom[place]i [place]id[place] Other COVID/FLU/RSV RT-PCRNegativeFarmington [place]i [place] Other xr ankle LT min 3V*on 67-58-7827QD ankle LT min 3V* [facility] [place] Other xr ankle LT min 3V*[facility] [place] Other XR ankle LT min 3V*[address] [place] [address] [place] Other xr ankle LT min 3V*[place] [id number] Other xr ankle LT min 3V*XRay ReportFarmington [place] Other xr ankle LT min 3V*SignedFarmington [place] Other xr ankle LT min 3V*Patient: Brittnee Smith MR#: [id number] [place] Other XR ankle LT min 3V*11[facility] [place] Other xr ankle LT min 3V*: 1995 Acct:[id number] [employer] Other xr ankle LT min 3V*Age/Sex: 27 / F ADM Date: 12/13/22 [employer] Other xr ankle LT min 3V*Loc: XDUCLY Room: Type: [facility] [employer] Other xr ankle LT min 3V*Attending Dr: Linda Swanson [facility] [employer] Other xr ankle LT min 3V*Copies to: Linda Swanson [facility] [employer] Other xr ankle LT min 3V*Ordering Provider: Linda Swanson [employer] Other xr ankle LT min 3V*Date of Service: 12/13/22[facility] Other xr ankle LT min 3V* XR/XR ankle LT min 3V*: T14.90XAFarmington Tomveyi [place] Other xr ankle LT min 3V*LEFT ANKLE - 3 viewsFarmington Tomveyi [place] Other xr ankle LT min 3V*CLINICAL DATA: Patient fell down stairs injuring left ankle today. Generalized pain and swelling.[employer] Other xr ankle LT min 3V*COMPARISON: [facility] [place] Other xr ankle LT min 3V*AP, lateral and oblique views were obtained. There is no evidence of fracture or dislocation. [facility] CenterAppland Other xr ankle LT min 3V*talar dome is intact. A tiny plantar calcaneal spur is present. There is mild diffuse soft tissueFarmington Tomveyi [place]id[place] Other XR ankle LT min 3V*swelling, greater anteriorly.[employer] Other XR ankle LT min 3V* XR/XR ankle LT min 3V*[employer] Other XR ankle LT min 3V*IMPRESSION:[employer] Other XR ankle LT min 3V*NO ACUTE BONY INJURY.[employer] Other XR ankle LT min 3V*Impression dictated by: Brandy Shields M.D.12/13/2022 9:49 AMNcitizens memorial healthcare [place] Other XR ankle LT min 3V*Dictation Location: [place] [address] [employer] Other XR ankle LT min 3V*Transcribed By: [facility] 12/13/22 [facility] [employer] Other XR ankle LT min 3V*Dictated By: Brandy Shields MD 12/13/[address] [place] [address] [employer] Other XR ankle LT min 3V*Signed By:[employer] Other XR ankle LT min 3V*12/13/22 [facility] RegionalTrio[facility] Innov[facility] Other XR ankle LT min 3V*[facility] [place] [address] [place] [address] XRay Report Signed Patient: Brittnee Smith MR#: [id number] 11 : 1995 Acct:[id number] Age/Sex: 27 / F ADM Date: 12/13/22 Loc: XDUCLY Room: Type: [facility] Attending Dr: Linda Swanson APRN Copies to: [...] Brandy Shields M.D.12/13/2022 9:49 AM Dictation Location: [place] [address] Transcribed By: [facility] 12/13/2249 Dictated By: Brandy Shields MD 12/13/2247 Signed By: 12/13/2249[facility] Physician GroupAFP MATERNAL FOR SPINA BIFIDAon 63-36-3482INT MoM0.73[facility] O'Bleness HospitalComment on above:Result Comment: This is a corrected report. The previously reported result was: AFP MoM See interpretation. 06/29/2022erformed By: #### AFPMAT #### [facility] [address] [place] [address] [address] Cathleen Miner Value35.4 ng/mLNPremier HealthComment on above: Performed By: #### AFPMAT #### [facility] [address] [place] [address] [address] Cathleen Miner, Serum for Spina BifidaCoSalem Regional Medical Center Comment on above:Result Comment: The MOM and risk factors of this report have been modified based on new information supplied to us by the client or their designated national account representative. The Weight was changed from Not provided. to 222. This is a corrected report. The previously reported result was: Results Report 06/29/2022erformed By: #### AFPMAT #### [facility] [address] [place] [address] [address] Cathleen HuertaCentervilleComascension macomb on above:Result Comment: Sameera Hollingsworth, Ph.D., [facility] Director . References: Available Upon Request. . Multiples Of Median Cutoffs For AFP Elevations Wolfe 2.5 Black 2.8 IDD 2.0 Twins 4.5 Abbreviation Definitions IDD - Insulin Dep Diabetes OSBR - Open Spina Bifida Risk . For further inquiries contact [employer] [facility] at [phone]. . This test was developed and its performance characteristics determined by [employer]. It has not been cleared or approved by the Food and Drug Administration.Performed By: #### AFPMAT #### [facility] [address] [place] [address] Dr. Cathleen Dailey Age Collection Date20.4 [facility] Comment on above:Performed By: #### AFPMAT #### [facility] [address] [place] [address] Dr. Cathleen GodwinGestat, Age Based onUltrasPomerene HospitalComment on above:Result Comment: 20.4 on 06/27/2022 Recalculations are not recommended when gestational dating by LMP and ultrasound are within 10 days.Performed By: #### AFPMAT #### [facility] [address] [place] [address] Dr. Cathleen Navarrete Dep DiabetesNoNPremier HealthComment on above:Performed By: #### AFPMAT #### [facility] [address] [place] [address] Dr. Cathleen GodwinInterpretationComWexner Medical CenterComment on above: Result Comment: Interpretation: Screen Negative [...] Customer Services to discuss available options. The [place] [employer] recommends amniocentesis [...] new clinical information.Performed By: #### AFPMAT #### [facility] [address] [place] [address] Dr. Cathleen Batista Age at EDD[age] [facility] on above:Performed By: #### AFPMAT #### [facility] [address] [place] [address] Dr. Cathleen Bernal GestationKettering Health Washington TownshipComment on above: Performed By: #### AFPMAT #### [facility] [address] [place] [address] Dr. Cathleen AbbottBR Risk 1 [id number] Medical [facility], [place] on above: Result Comment: This is a corrected report. The previously reported result was: OSBR Risk 1 IN See interpretation. 06/29/2022erformed By: #### AFPMAT #### [facility] [address] [place] [address] Dr. Cathleen Bhatt.Ohio[facility] O'Bleness HospitalComment on above:Performed By: #### AFPMAT #### [facility] [address] [place] [address] Dr. Cathleen NewbyucasiAkron Children's HospitalComment on above: Performed By: #### AFPMAT #### [facility] [address] [place] [address] Dr. Cathleen GodwinTest Results:NegativeNoWVUMedicine Barnesville Hospital on above: Result Comment: This is a corrected report. The previously reported result was: Test Results: See interpretation. 3Performed By: #### AFPMAT #### [facility] [address] [place] [address] Dr. Cathleen Maxwell B SURFACE ANTIGEN SCREENon 85-01-9827OOrJm ScreenNegative NormalNegativeThe [facility] on above:Performed By: #### HBSANS #### [facility] [address] [place] [address] Dr. Cathleen HearnTIS C VIRUS AB W/ REFLEX QUANTon 82-27-8348HPN AB Non-ReactiveNormalNon ReactiveThe [facility] HospitalComascension macomb on above:Performed By: #### HCVPCRR #### [place] [address] [address] Cathleen GodwinInterpretation:CommentNoWVUMedicine Barnesville Hospital on above:Result Comment: Not infected with HCV unless early or acute infection is suspected (which may be delayed in an immunocompromised individual), or other evidence exists to indicate HCV infection.Performed By: #### HCVPCRR #### [facility] [address] [place] [address] Dr. Cathleen Ulrich 1 AND 2 WITH REFLEXon 15-86-5017DWR Screen 4th Generation wRfxNon-ReactiveNormalNon ReactiveThe [facility] on above:Result Comment: HIV Negative HIV-1/HIV-2 antibodies and HIV-1 p24 antigen were NOT detected. There is no laboratory evidence of HIV infection.Performed By: #### HIV12 #### [facility] [address] [place] [address] Dr. aCthleen GodwinRPPerry QUANTon 04-82-2556Wkppb Plasma Reagin, QuantNon-Reactive NormalNonRea<1:1The [facility] on above:Result Comment: Please Note: This test does not meet current guidelines for screening and diagnosis of syphilis. This test is intended for following treatment response in patients being treated for syphilis infection. To screen for syphilis infection, a reflex cascade that includes both RPR and a treponema-specific assay should be utilized, such as Treponema pallidum (Syphilis) Screening [place] (339602) or Rapid Plasma Reagin (RPR) Test With Reflex to Quantitative RPR and Confirmatory Treponema pallidum Antibodies (603053).Performed By: #### RPRQ #### [facility] [address] [place] [address] [address] Cathleen Ames AB IGGon 22-17-2479Rvsnzaq Antibodies, IgG1.39 index NormalImmune >0.99The [facility] HospitalComment on above:Result Comment: Non- immune <0.90 Equivocal 0.90 - 0.99 Immune >0.99Performed By: #### RUBIGG ####[facility] [address] [place] [address]Dr. Cathleen Gibson AUTO DIFFon 96-39-5435ZWIX # 0.0 103/ulNormal0.0-0.1The [facility] HospitalComment on above:Performed By: #### CBC #### [facility] [address] [place] [address] Dr. Cathleen Larsonsophils/100 WBC (Bld)0.3 %Normal0.2-2.0[facility] Comment on above:Performed By: #### CBC #### [facility] [address] [place] [address] Dr. Cathleen Starkey #0.2 103/ulNormal0.0-0.7The [facility] HospitalComment on above: Performed By: #### CBC #### [facility] [address] [place] [address] Dr. Cathleen Colemanosinophils/100 WBC (Bld)1.3 %Normal0.9-7.0The [facility] Comment on above:Performed By: #### CBC #### [facility] [address] [place] [address] Dr. Cathleen Colemanrythrocyte distribution width (RBC) [Ratio]13.2 %Iwxhsn95.0-15.0 The [facility] HospitalComment on above:Performed By: #### CBC #### [facility] [address] [place] [address] [address] Cathleen GodwinHematocrit (Bld) [Volume fraction]32.9 %Critically low36.0-48.0 The [facility] HospitalComment on above:Performed By: #### CBC #### [facility] [address] [place] [address] [address] Cathleen GodwinHemoglobin (Bld) [Mass/Vol]11.3 g/dLCritically low12.0-16.0The [facility] HospitalComment on above:Performed By: #### CBC #### [facility] [address] [place] [address] [address] Cathleen GodwinIG #0.18 10e3/ulCritically high0.00-0.03The [facility] Comment on above:Performed By: #### CBC #### [facility] [address] [place] [address] Dr. Cathleen Larry %1.6 %Critically high0.0-0.5The [facility] HospitalComment on above:Performed By: #### CBC #### [facility] [address] [place] [address] [address] Cathleen Johns #2.6 103/ulNormal1.2-3.8The [facility] HospitalComment on above:Performed By: #### CBC #### [facility] [address] [place] [address] [address] Cathleen Tranmphocytes/100 WBC (Bld)22.5 %Bmtpoq61.5-60.0The [facility] City Hospitalment on above:Performed By: #### CBC #### [facility] [address] [place] [address] [address] Cathleen GodwinMANUAL DIFF REQNONormalThe [facility] HospitalComment on above: Performed By: #### CBC #### [facility] [address] [place] [address] [address] Cathleen Rao (RBC) [Entitic mass]29.4 zzHhrjra18.7-34.0The [facility] HospitalComment on above:Performed By: #### CBC #### [facility] [address] [place] [address] [address] Cathleen WilliamHC (RBC) [Mass/Vol]34.3 g/hBPtfzxn78.9-35.2The [facility] HospitalComment on above:Performed By: #### CBC #### [facility] [address] [place] [address] Dr. Cathleen WilliamV (RBC) [Entitic vol]85.5 sCSglxfi53.0-99.0The [facility] HospitalComment on above:Performed By: #### CBC #### [facility] [address] [place] [address] Dr. Cathleen Maria #0.5 103/ulNormal0.3-0.8The [facility] HospitalComment on above:Performed By: #### CBC #### [facility] [address] [place] [address] Dr. Cathleen Lubinocytes/100 WBC (Bld)4.5 %Normal1.7-12.0The [facility] Comment on above:Performed By: #### CBC #### [facility] [address] [place] [address] Dr. Cathleen Tenorio #8.1 103/ulCritically high1.4-6.5The [facility] Comment on above:Performed By: #### CBC #### [facility] [address] [place] [address] Dr. Cathleen Garayutrophils/100 WBC (Bld)69.8 %Jsxqxq12.0-75.0The [facility] HospitalComment on above:Performed By: #### CBC #### [facility] [address] [place] [address] Dr. Cathleen Flanaganlet mean volume (Bld) [Entitic vol]10.8 fLNormal9.5-13.5The [facility] HospitalComment on above:Performed By: #### CBC #### [facility] [address] [place] [address] Dr. Cathleen GodwinPLT223 103/jzFfikkb058-255Uxf [facility] HospitalComment on above: Performed By: #### CBC #### [facility] [address] [place] [address] [address] Cathleen GodwinRBC3.85 106/ulCritically low4.20-5.40The [facility] on above:Performed By: #### CBC #### [facility] [address] [place] [address] [address] Cathleen GodwinWBC11.5 103/ulCritically high4.0-11.0The [facility] on above:Performed By: #### CBC #### [facility] [address] [place] [address] [address] Cathleen GodwinCULTURE URINEon 57-19-2183FWHRHGP URINECulture Observations: LIGHT GROWTH OF MIXED GENITAL KASIA. NO POTENTIAL PATHOGENS SEEN.NormalThe [facility] on above:Performed By: #### URCX ####[facility] [address] [place] [address]Dr. Cathleen Godwin GLYCOHEMOGLOBIN A1Con 27-62-4204VDZ RECOMMENDATIONSEE BELOWOhioHealth O'Bleness HospitalComascension macomb on above:Result Comment: ADA RECOMMENDED LIMIT 4.0 - 6.0 ADA THERAPEUTIC TARGET < 7.0 ACTION SUGGESTED > 7.0Performed By: #### A1C #### [facility] [address] [place] [address] Dr. Cathleen GodwinGlucose [Mass/Vol]114 mg/dLSelect Medical [facility] Clinic Rehabilitation [facility], [place] on above:Performed By: #### A1C #### [facility] [address] [place] [address] Dr. Cathleen GodwinHbA1c (Bld) [Mass fraction]5.6 %Normal4.5-6.2The [facility] on above:Performed By: #### A1C #### [facility] [address] [place] [address] Dr. Cathleen GodwinTSHon 49-80-7014XCL61.370 uIU/mLCritically high0.358-3.740The [facility] on above:Performed By: #### TSH #### [facility] [address] [address] [address] Cathleen GodwinTYPE AND SCREENon 80-33-8038FYXS AND SCREENNegativeOhioHealth O'Bleness HospitalComment on above:Performed By: #### TNS #### [facility] [address] [place] [address] Dr. Cathleen Hughes PREG ANATOMY SINGLEon 38-02-7046IU PREG ANATOMY SINGLE EXAMINATION: US PREG ANATOMY [...] Electronically authenticated by: CHRISTIANNE ULLOA Date: 2022-06-27 15:[address] [place] [address] Vital Signs Date TimeVital SignValuePerforming DmlgnumvsAhfnejwm44-88-1924 08:03-0400Body utfrhq928.6 cmKenji Plascencia MD Work Phone: pAc[facility] FuntactixVpxwju15-09-5041 08:03-0400Body mass index (BMI) [Ratio]40.39 kg/z1VngbsjKenji Plascencia MD Work Phone: [phone] [place], [place] [address]110-17-2025 08:03-0400Body bidyfc886.78 kgKenji Plascencia MD Work Phone: [phone] [place], [place] 7232110-17-2025 08:03-0400Diastolic blood rtcwkfvu23 mm[Hg]Kenji Plascencia MD Work Phone: [phone] [place], [place] [address]110-17-2025 08:03-0400Heart rate 83 /minKenji Plascencia MD Work Phone: [phone] [place], [place] 72[address]110-17-2025 08:03-0400Systolic blood msndxvaa185 mm[Hg]Kenji Plascencia MD Work Phone: [phone] [place], [place] 72[address]110-16-2025 09:24-0400Body mass index (BMI) [Ratio]41.81 kg/q9Ggnme Samuel DO Work Phone: [phone] [place], [place] 5533810-16-2025 09:24-0400Body iqajvw080.05 kgCorey Samuel DO Work Phone: [phone] [place], [place] 5533810-16-2025 09:24-0400Diastolic blood ioxodnmp15 mm[Hg]Ha Samuel DO Work Phone: [phone] [place], [place] 5533810-16-2025 09:24-0400Systolic blood iitzfhrl492 mm[Hg]Ha Samuel DO Work Phone: [phone] [place], [place] 5533809-11-2025 11:30-0400Body mass index (BMI) [Ratio]40.64 kg/c9WuyuazoxCaryn Lopez NP Work Phone: [phone])[address] [place] [address]-11-2025 11:30-0400Body vcwqui128.06 kgCaryn Lopez OPHTHALMIC PATHOLOGIST Work Phone: [phone])[address] [place] [address]-11-2025 11:30-0400Diastolic blood gyfmnhco23 mm[Hg]Caryn Lopez NP Work Phone: [facility] HospitalGmtkjlukst31-38-4851 11:30-0400Systolic blood nthmaged837 mm[Hg]Caryn Lopez KALIE Work Phone: [facility] HospitalLdcyzooxtr52-08-7863 14:04-0400Body mass index (BMI) [Ratio]40.35 kg/n5Snujz Samuel DO Work Phone: [facility] [phone] 14:04-0400Body .33 kgCorey Samuel DO Work Phone: [phone] [place], [place] [address]Rvubfvamdj52-44-0490 14:04-0400Diastolic blood hodoaszm09 mm[Hg]Ha Samuel DO Work Phone: [facility] HospitalRynwpkqcdc08-55-6127 14:04-0400Systolic blood xyxmwhjs437 mm[Hg]Hajona Nowako DO Work Phone: [facility] HospitalYevvggadbh74-43-5434 10:07-0400Body mboxwk557 cm Allen Carr MD Work Phone: [phone] [place], [place] [address]Omivihfqkl42-06-6367 10:07-0400Body mass index (BMI) [Ratio]39.86 kg/u6PejosAllen Carr MD Work Phone: [phone] HospitalQdxgxmqmok31-99-3676 10:07-0400Body kqxvka562.06 kgAllen Carr MD Work Phone: [facility] HospitalJqomnxltof87-36-1926 10:07-0400Diastolic blood jvebcqry97 mm[Hg]Allen Carr MD Work Phone: [phone] [place], [place] [address]Tqqgetevme57-22-8898 10:07-0400Heart rate77 /min Allen Carr MD Work Phone: [facility] HospitalWsslgeaeuc29-40-6604 10:07-0400Respiratory rate16 /minAllen Carr MD Work Phone: [facility] HospitalCqnqblsibc96-22-4872 10:07-3295CqW8% (BldA) [Mass fraction]99 %Allen Carr MD Work Phone: [address] [place], [place] [address]Gkxdocexpd60-76-6263 10:07-0400Systolic blood rmbxmder729 mm[Hg]Allen Carr MD Work Phone: [phone] [place], [place] [address]Qplsaecsof94-42-9091 14:05-0400Body mass index (BMI) [Ratio]39.2 kg/g9[facility]cdC[facility]07-10-2025 14:05-0400Body weight 103.6 [facility]06-13-2025 11:20-0400Body .6 Sriram Carr MD Work Phone: [phone]06-13-2025 11:20-0400Body mass index (BMI) [Ratio]40.17 kg/u7GbycvAllen Carr MD Work Phone: [phone] [place], [place] [address]Fohpxbvvct80-43-4273 11:20-0400Body vpepgc487.14 kgAllen Carr MD Work Phone: [phone]06-13-2025 11:20-0400Heart rate93 /min Allen Carr MD Work Phone: [phone] [place], [place] [address]Uhhsnrvsgo99-27-2942 11:20-0400Respiratory rate16 /minAllen Carr MD Work Phone: [phone] [place], [place] [address]Hxspnwrhdl74-86-1892 11:20-2358HoF3% (BldA) [Mass fraction]99 %Allen Carr MD Work Phone: [phone] [place], [place] [address]Wxhrvjitwz91-96-9280 13:29-0500Body mass index (BMI) [Ratio]40.94 kg/s3Svcbs Samuel DO Work Phone: [facility] HospitalTeaylrphyr73-19-5796 13:29-0500Body ldrgyz592.83 kgCorey Samuel DO Work Phone: [facility] HospitalZgwhmuhdsf79-76-0626 13:29-0500Diastolic blood hyznjgzc56 mm[Hg]Ha Samuel DO Work Phone: [facility] HospitalUhtjtbvugu46-29-8160 13:29-0500Systolic blood rewbpmqx247 mm[Hg]Ha Baker DO Work Phone: [facility] HospitalXceipkkvan79-52-4942 13:08-0400Body qeojkt524.56 cmAPRJarek Altman Work Phone: [phone] [place], [place] 57[address]309-23-2024 13:08-0400 Body mass index (BMI) [Ratio]38.7 kg/m2JUICE Ortiz Anupama Work Phone: [phone]09-23-2024 13:08-0400 Body zybysrayxpk00.9 [degF]JUICE Ortiz Anupama Work Phone: [phone] [place], [place] [address]709-23-2024 13:08-0400 Body vtwnov167.51 kgJUICE Altman Work Phone: [phone]09-23-2024 13:08-0400 Diastolic blood hfumxuwg92 mm[Hg]JUICE Ortiz Anupama Work Phone: [phone]09-23-2024 13:08-0400 Heart rate80 /minAPRJarek Ortiz Anupama Work Phone: [phone]09-23-2024 13:08-0400 SaO2% (BldA) [Mass fraction]98 %JUICE Ortiz Anupama Work Phone: [phone]09-23-2024 13:08-0400 Systolic blood mm[Hg]JUICE Ortiz Anupama Work Phone: [phone]08-13-2024 17:54-0400 [facility] .[facility] 17:54-0400Body mass index (BMI) [Ratio]37.6 kg/u5DvkjtjumgProvidence Hospital08-13-2024 17:54-0400Body uzsrgptvphn05.2 [degF][facility]08-13-2024 17:54-0400Body uykycc73.56 kgProv[facility]08-13-2024 17:54-0400Diastolic blood aqxxhycp51 mm[Hg][facility] 10-10-2023 17:54-0400Heart rate90 /[facility] 10-10-2023 17:54-0400Respiratory rate18 /[facility] 10-10-2023 17:54-3569JqQ4% (BldA) [Mass fraction]96 %[facility]08-13-2024 17:54-0400Systolic blood yqnvmuzh795 mm[Hg][facility]02-20-2024 11:10-0500Body tzbymo903.56 cmProv[facility]02-20-2024 11:10-0500Body mass index (BMI) [Ratio]38.6 kg/m2 [facility]02-20-2024 11:10-0500Body xcpxhgjrpqa69.2 [degF][facility]02-20-2024 11:10-0500Body uyqmav726.05 kg [facility]02-20-2024 11:10-0500Heart rate95 /[facility]02-20-2024 11:10-0500Respiratory rate16 /[facility]02-20-2024 11:10-2587KwU0% (BldA) [Mass fraction]99 % [facility]02-08-2024 09:05-0500Body jgoegw122.02 cmAtemo Swanson Other [facility]Rock [facility] Other 02-08-2024 09:05-0500Body mass index (BMI) [Ratio] 38.97 kg/n0MhdlgLinda Swanson Other [facility] Other 02-08-2024 09:05-0500Body glguzprzxze73.1 [degF]Linda Swanson Other [facility] Other 02-08-2024 09:05-0500Body ywuwdj80.79 kgLinda Swanson Other [place] Other 02-08-2024 09:05-0500Respiratory rate18 /minLisandroer Sky Other [facility] [place] [facility] Other 02-08-2024 09:05-1924JaZ6% (BldA) [Mass fraction]99 % Linda Sky Other [place] [facility] Other 12-04-2023 15:40-0500Body drzcom568.02 cmPamela Mary Other [facility]12-04-2023 15:40-0500 Body mass index (BMI) [Ratio]39.78 kg/o8Smbbpt Mary Other [place] [facility] Other 12-04-2023 15:40-0500Body kdtgcrzykau56 [degF]Addie Mary Other [place] [facility] Other 12-04-2023 15:40-0500Body wxwtor766.88 kgPager Hernandez Other [place] [facility] Other 12-04-2023 15:40-0500Body ccyeue472.87 kgProv[facility]12-04-2023 15:40-0500Diastolic blood mm[Hg] Addie Mary Other [facility]12-04-2023 15:40-0500 Respiratory rate18 /minPager Hernandez Other [place] Other 12-04-2023 15:40-6733ToZ2% (BldA) [Mass fraction]98 % Addie Hernandez Other [place] [facility] Other 12-04-2023 15:40-0500Systolic blood mm[Hg] Addie Hernandez Other [facility]10-17-2023 09:05-0400 Body ixoljn920.02 Markos Swanson Other [facility] Other 10-17-2023 09:05-0400Body mass index (BMI) [Ratio] 38.97 kg/g5DtwkeLinda Swanson Other [facility] Other 10-17-2023 09:05-0400Body xiukdxrrczt59.2 [degF]Linda Swanson Other [facility] Other 10-17-2023 09:05-0400Body bbrpyf72.79 kgLinda Swanson Other [facility] Other 10-17-2023 09:05-0400Diastolic blood mm[Hg] Linda Swanson Other [facility] Other 10-17-2023 09:05-0400Respiratory rate18 /minLinda Swanson Other [facility] Other 10-17-2023 09:05-2631QtR1% (BldA) [Mass fraction]98 % Linda Swanson Other [facility] Other 10-17-2023 09:05-0400Systolic blood jmcmzyam068 mm[Hg] Linda Swanson Other [facility] Other 06-19-2023 12:00-0400Body yvetar020.02 Chiquita Hernandez Other [employer] Other 06-19-2023 12:00-0400Body mass index (BMI) [Ratio] 40.21 kg/t7IwziluAddie Hernandez Other [employer] Other 06-19-2023 12:00-0400Body ijliwrmueeq55.7 [degF]Addie Hernandez Other [employer] Other 06-19-2023 12:00-0400Body bcieaq579.97 kgAddie Hernandez Other [employer] Other 06-19-2023 12:00-0400Diastolic blood savkbrfg29 mm[Hg] Addie Hernandez Other [employer] Other 06-19-2023 12:00-0400Respiratory rate18 /minAddie Hernandez Other [employer] Other 06-19-2023 12:00-8218QgV6% (BldA) [Mass fraction]98 % Addie Hernandez Other [employer] Other 06-19-2023 12:00-0400Systolic blood lzwxgiqp113 mm[Hg] Addie Hernandez Other [employer] Other 05-05-2023 14:08-0400Body rahifq128.6992 kgDR HA BAKER .[facility] HospitalComment on above:Result Comment: This is a corrected report. The previously reported result was: Weight 06/29/2022 Not provided. .Performed By: #### AFPMAT #### [facility] [address] [place] [address] Dr. 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)Start: 12-13-2024 End: 97-81-9969Pduobr Virgil Mcgrath RNMaternal- Medicine at [facility] HospitalComment on above:Hypothyroidism affecting in second trimester (Primary Dx)Start: 12-12-2024 End: 74-98-9305Qqbqwdf encounter procedureCorejona Samuel DO Work Phone: noms [place] OBGYNComment on above:Colposcopy needed after cervical smear; Second trimester ([facility]); 22 weeks gestation of ([facility])Start: 12-12-2024 End: 60-62-8888ejehsrlajfOROTI FAZIONot AvailableStart: 11-13-2024 End: 51-84-5097Yiloz abstractYosvany Plascencia MD Work Phone: [phone]-Thzej Medicine at [facility] Start: 11-13-2024 End: 20-97-9906Ytnsakcvo encounterCaryn Lopez NP Work Phone: NOMS Timothy OBGYNStart: 11-07-2024 End: 99-72-0423Tepyju flowsheetCaryn Lopez OPHTHALMIC PATHOLOGIST Work Phone: [facility] Timothy OBGYNStart: 11-07-2024 End: 45-56-1909Dzzprj flowsheetCaryn Lopez OPHTHALMIC PATHOLOGIST Work Phone: [facility] [place] OBGYNStart: 11-07-2024 End: 38-18-1053Njpyqseuz Result EncounterCaryn Lopez NP Work Phone: NOMS External Department UnsolicitedStart: 11-07-2024 End: 45-93-5534Bydzgpcc Result EncounterCaryn Lopez NP Work Phone: no External Department UnsolicitedStart: 11-07-2024 End: 76-86-2058Ywwaxo outpatient visit 15 minutesCaryn Lopez NP Work Phone: no Timothy OBGYNComment on above:17 weeks gestation of ([facility]); Second trimester ([facility]); History of hyperthyroidism; Well woman exam with routine gynecological exam; Screening, , for anatomic survey ([facility]); Vaginal discharge; Exposure to STDStart: 11-07-2024 End: 29-64-3760Wynamil encounter procedureCaryn Lopez NP Work Phone: no HealthcareStart: 11-07-2024 End: 16-88-9963karwkbegzaANZAYNOL EBERLYNot AvailableStart: 10-23-2024 End: 13-66-7537Ewxgeajvi department patient visitNO PCP NO PCPProMedica Salisbury HospitalStart: 10-08-2024 End: 95-50-4182Yekdex flowsheetCorey Samuel DO Work Phone: n[facility] [place] OBGYNStart: 10-08-2024 End: 43-28-3347Jnalbw flowsheetCorey Samuel DO Work Phone: noms Timothy OBGYNStart: 10-08-2024 End: 27-24-2431Abhypj outpatient visit 15 minutesCorey Samuel DO Work Phone: no Timothy OBGYNComment on above:13 weeks gestation of ([facility]); Second trimester ([facility]); Nausea and vomiting in ([facility]); History of hyperthyroidism; Constipation, unspecified constipation typeStart: 10-08-2024 End: 85-62-7195jzlxdcfedxGCGEK FAZIONot AvailableStart: 10-04-2024 End: 30-09-0189Nigvdr flowsEstrella Carr MD Work Phone: noMS [place] EndocrinologyStart: 10-04-2024 End: 02-56-8835Sztoyi flowsheetAllen Carr MD Work Phone: noms [place] EndocrinologyStart: 10-04-2024 End: 41-75-2847Nflolu outpatient visit 25 minutesAllen Carr MD Work Phone: noms [place] Endocrinology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 (Primary Dx); Vitamin D deficiency; Encounter for dietary consultation; Thyroid disease during , first trimester (HCC); Hypothyroidism, unspecified typeStart: 10-04-2024 End: 60-50-7202zptqftcruaFHANC F SABBAGHNot AvailableStart: 10-03-2024 End: 76-50-8565Yxhtkamjy Result EncounterCorey Samuel DO Work Phone: noms External Department UnsolicitedStart: 10-03-2024 End: 75-80-8262Ukmpxcsle Result EncounterCorey Samuel DO Work Phone: noms External Department UnsolicitedStart: 09-19-2024 End: 90-01-3715Kizgasqpp Result EncounterCorey Samuel DO Work Phone: noms External Department UnsolicitedStart: 09-19-2024 End: 67-05-8550Angxbkdwj Result EncounterCorey Samuel DO Work Phone: noms External Department UnsolicitedStart: 09-06-2024 End: 67-38-3618Scapbdrqs Result EncounterCorey Samuel DO Work Phone: noms External Department UnsolicitedStart: 09-06-2024 End: 92-72-1066Lndgglebj Result EncounterCorey Samuel DO Work Phone: noms External Department UnsolicitedStart: 09-05-2024 End: 95-99-9968Rreojr outpatient visit 5 minutesFamaurao Nurse Noms Bcp ObNOMS BCP OBComment on above:[place]: 4f9cZmvul: 09-05-2024 End: 73-27-0911aukrwtzpabBEYEG FAZIONot AvailableStart: 09-01-2024 End: 80-85-3871Ohpiovrsy department patient visitNO PCP NO PCPProMedica Salisbury HospitalStart: 08-21-2024 End: 26-92-7762Qxiwxwmrj Result EncounterCorey Samuel DO Work Phone: noms External Department UnsolicitedStart: 08-21-2024 End: 47-57-6601Qernzgzsr Result EncounterCorey Samuel DO Work Phone: noms External Department UnsolicitedStart: 08-19-2024 End: 33-57-3953Krylgdvlr Result EncounterCorey Samuel DO Work Phone: noms External Department UnsolicitedStart: 08-19-2024 End: 99-39-6962Zzwkqbifz Result EncounterCorey Samuel DO Work Phone: noms External Department UnsolicitedStart: 08-09-2024 End: 78-84-8725Okxtudhenry Carr MD Work Phone: noms ENDOCRINOLOGYStart: 08-09-2024 End: 64-19-5019Uxdeewhenry Carr MD Work Phone: noms ENDOCRINOLOGYStart: 08-09-2024 End: 85-86-7918cvupefchyvKZHSK F SABBAGHNot AvailableStart: 08-09-2024 End: 42-22-3612Smuuaa outpatient visit 25 minutesAllen Carr MD Work Phone: noms ENDOCRINOLOGYComment on above:Alfredo's disease (Primary Dx); Vitamin D deficiency; Encounter for dietary consultation; Class 3 severe obesity due to excess calories without serious comorbidity with body mass index (BMI) of 40.0 to 44.9 in adult (CMS-HCC); Thyroid disease during , first trimester (HCC); Hypothyroidism, unspecified typeStart: 00-39-6689Sirvjim encounter statusAllen Carr MD Work Phone: noms HealthcareStart: 03-26-2024 End: 10-03-9248Csxuawq encounter procedureCorey Samuel DO Work Phone: [facility] OBComment on above:Encounter for removal of intrauterine contraceptive device (IUD)Start: 03-26-2024 End: 23-51-6529epowdaamzgDPADH TERIONot AvailableStart: 11-20-2023 End: 33-07-1218Rbtatob encounter procedureJUIEC Altman Work Phone: [facility] Work Phone: Start: 11-20-2023 End: 28-83-6538ozazrfglufPJANewark Hospital [facility]tr Work Phone: Start: 11-20-2023 End: 98-05-2818gowypekehgIIVEmory [facility] Work Phone: Start: 11-20-2023 End: 00-56-6043Mifjrrt encounter procedureJUICE Altman Work Phone: [facility] Work Phone: Start: 10-10-2023 End: 47-69-1403Askujomr ReferredJUICE Altman Work Phone: [facility] Work Phone: Start: 10-10-2023 End: 73-73-3608knuzdghjxlXddzbw [facility] Work Phone: Start: 10-10-2023 End: 83-67-2869Yencdsi encounter procedureE[facility] Work Phone: Start: 04-18-2023 End: 12-71-6627tbrrcuehlpWbmfbdhjpC[facility] Work Phone: Start: 04-18-2023 End: 45-02-3511Iyfkrdj encounter procedureE[facility] Work Phone: start: 04-06-2023 End: 73-19-7636uaxlnfcqyyPxqlg Keller Other [facility] Other Start: 27-10-5251Kfqqmu outpatient visit 25 minutes Linda GhulamlerFPG Urgent Care ClydeStart: 02-02-2023 End: 44-06-9725txhugoktnzHoehc Keller Other [facility] Other Start: 28-51-4275Cdtaeilaq encounterAmber GhulamlerFPG Urgent Care Landers RoadStart: 01-30-2023 End: 61-05-8816plyohwstdyMojuwc Mary Other [facility] Other Start: 64-08-6361Xbcxeh outpatient visit 15 minutes Addie DydelbertFPG Urgent Care ClydeStart: 01-30-2023 End: 16-37-1016Jvefzrm encounter procedureFirpoplar springs hospital [facility] Work Phone: Start: 16-90-6388Hnjdhy outpatient visit 15 minutes Linda SkyFPG Urgent Care ClydeStart: 12-13-2022 End: 57-64-7691Fsfujhg encounter procedureAPRN Linda Swanson Work Phone: [facility] Work Phone: Start: 12-13-2022 End: 82-23-4463ekpzdojpdhRurdf Michela SwansonSt. [facility] Hospital [facility] Work Phone: Start: 08-15-2022 End: 40-75-4327rbljgxisszKfwnaz Mary Other [facility] Other Start: 27-20-6383Orjgdn outpatient new 20 minutes Addie DymondFPG Urgent Care ClydeStart: 07-26-2022 End: 60-91-1249cjonfesevnOQ HA SAMUEL .Facility:S9Hhzmi: 06-27-2022 End: 05-04-7918yjultvrbrqBP HA SAMUEL .Facility:V7Yrroj: 06-27-2022 End: 25-13-9509pizeevwyunNR HA SAMUEL .Facility:L6Pumwb: 06-10-2020 End: 92-45-5007asoajqxmslFcub Malina Work Phone: COVID Vaccine [place] Procedures DateProcedureProcedure DetailPerforming ClinicianStart: 32-20-3260VTKMROXGBQ Ha Samuel DO Work Phone: Start: 72-81-3837Tcvpm dip stick/tablet rgnt non-auto w/o micrscpCorey Samuel DO Work Phone: Start: 50-73-9592SSAUPDCHD VAGINITIS (HTRX)Caryn Lopez NP Work Phone: Start: 30-02-5164Voxzd dip stick/tablet rgnt non-auto w/o micrscpCaryn Lopez OPHTHALMIC PATHOLOGIST Work Phone: Start: 03-22-6139JPK,APTIMA HPV,AGE GDLNCaryn Lopez OPHTHALMIC PATHOLOGIST Work Phone: Start: 03-92-0330Njmoapilrix observation [Identifier] in Cervix by Cyto Celeste Plascencia MD Work Phone: Start: 09-65-6715Kijrd dip stick/tablet rgnt non-auto w/o micrscpCorey Samuel DO Work Phone: Start: 17-57-3819AOHGQKP TOLERANCE 3 HOURCorey Samuel DO Work Phone: Start: 89-51-2707WUA CBC WITH AUTO DIFFCorey Samuel DO Work Phone: Start: 07-48-1664IHE CBC WITH AUTO DIFFCorey Samuel DO Work Phone: Start: 65-37-5824Bcfvh dip stick/tablet rgnt non-auto w/o micrscpCorey Samuel DO Work Phone: Start: 16-50-2679NQB PREG QUANT HCGCorey Samuel DO Work Phone: Start: 57-37-0053DAF PREG QUANT HCGCorey Samuel DO Work Phone: Start: 80-31-1622EFN REMOVALCorey Samuel DO Work Phone: Start: 57-89-8765BTPOI Antigen (POC)JUICE Feldmanmichelle Altman Work Phone: Start: 94-31-5023Jkzma Strep (POC)STRATEGIC ALLIANCES MANAGER Dianamichelle Altman Work Phone: Start: 85-44-4051Zqmlu chest X-rayAPRJarek Altman Work Phone: Start: 00-48-0980Yvygl cultureAPRJarek Diana Anupama Work Phone: Start: 41-99-5461KJWWZ/Influenza Antigen (POC)Start: 34-95-3672M-ray of left ankleAPRN Linda Swanson Work Phone: Plan of Treatment DateCare ActivityDetailAuthorStart: 29-11-9272Vgagopefo for malignant neoplasm of cervixPap SmearProHarrison Community HospitaliSale Global SystemStart: 40-69-0413Hqdeb BMI Screening Adult BMI ScreeningProUniversity [facility]als [facility] SystemStart: 63-70-4571Ayfnjbm Screening Tobacco ScreeningProUniversity Hospitals [facility] SystemStart: 12-13-2025 End: 21-08-1505LU MFM with or without consultUS MFM with or without consult Imaging Routine Hypothyroidism affecting in second trimester Expected: 12/13/2025 (Approximate), Expires: 12/13/2025[employer] Work Phone: comment on above:Expected: 12/13/2025 (Approximate), Expires: 12/13/2025Start: 02-20-0122Lwooq BMI ScreeningAdult BMI Screening [facility] SystemStart: 01-21-2025 End: 00-60-4496Rswpzhp encounter udonjxivu88/25/2025 2:15 PM EST Appointment [facility] - Ultrasound [address] [place] [address] [facility] - UltrasoundStart: 01-09-2025 End: 65-53-4288Qtghopc encounter fumkkkqbo03/13/2025 10:50 AM EST Routine [facility] [address] [place] [address] Karla Matthews PA [address] [place] [address] SUNITA GONSALVEStart: 12-19-2024 End: 07-75-6413Hopglqe encounter gjlqexjcr77/23/2025 11:30 AM EDT Office Visit [facility] [address] [place] [address] Allen Carr MD [address] [place] [address] SUNITA Bhakta EndocrinologyStart: 12-13-2024 End: 62-24-3104Sowrgng encounter izbeqksgo34/17/2025 8:45 AM EDT Office Visit Maternal- Medicine at [facility] [address] [place] [address] Kenji Plascencia MD [address] [place] [address] [facility] 12-13-2024 End: 34-98-3375Lbznqrf encounter /17/2025 7:30 AM EDT Appointment [facility] [address] [place] [address] [phone] Health [facility] US ImagingStart: 12-12-2024 End: 15-19-6805Thrwpza encounter nsbcuznsi28/16/2025 11:20 AM EDT Routine [facility] [address] [place] [address] Ha Baker, DO [address] [place] [address] NOMPalma [place] OBGYNStart: 12-12-2024 End: 54-54-7909Rbacxcs encounter jcmmbuacc15/16/2025 9:30 AM EDT Procedure Visit [facility] [address] [address] Ha Baker, DO [address] [place] [address] NOMPalma [place] OBGYNStart: 11-14-2024 End: 44-37-2070Frejhqb encounter xvnecnbvf07/18/2025 11:20 AM EDT Office Visit [facility] [address] [place] [address] Allen Carr MD [address] [place] [address] SUNITA Bhakta EndocrinologyStart: 11-07-2024 End: 83-16-4293Ptqtg fetoprotein, maternalAlpha fetoprotein, maternal Lab Routine 17 weeks gestation of ([facility]) Second trimester ([facility]) Expected: 11/07/2024 (Approximate), Expires: 12/07/2024[facility] Comment on above:Expected: 11/07/2024 (Approximate), Expires: 12/07/2024Start: 11-07-2024 End: 31-09-6253WR for pregnancyUS OB 14+ weeks anatomy scan Imaging Routine Screening, , for anatomic survey ([facility]) Expected: 11/07/2024, Expires: 02/06/2025NONC HealthcareComment on above:Expected: 11/07/2024, Expires: 02/06/2025Start: 11-07-2024 End: 78-02-8460Pgjnnxz encounter procedureNOMS Shelbina OBGYNComment on above: ArrivedStart: 37-33-7958Bmzvspptj vaccinationInfluenza VaccineShelby Memorial Hospital SystemStart: 10-08-2024 End: 96-89-5800Dyirlrx encounter procedureNOMS BCP OBComment on above:Arrived Start: 10-04-2024 End: 34-18-4173Ccujwafztkp [Units/volume] in Serum or PlasmaTSH Lab Routine Alfredo's disease Thyroid disease during , first trimester (HCC) Expected: 10/04/2024 (Approximate), Expires: 10/04/2025NONC HealthcareComment on above:Expected: 10/04/2024 (Approximate), Expires: 10/04/2025Start: 10-04-2024 End: 38-65-0826Qlhcwgryr (T4) free [Mass/volume] in Serum or PlasmaT4, free Lab Routine Alfredo's disease Thyroid disease during , first trimester (HCC) Expected: 10/04/2024 (Approximate), Expires: 10/04/2025[facility] Healthcare Comment on above:Expected: 10/04/2024 (Approximate), Expires: 10/04/2025Start: 10-04-2024 End: 09-30-9340Dpiennjzwarnhmld (T3) Free [Mass/volume] in Serum or PlasmaT3, free Lab Routine Alfredo's disease Thyroid disease during , first trimester (HCC) Expected: 10/04/2024 (Approximate), Expires: 10/04/2025[facility] Work Phone: Comment on above:Expected: 10/04/2024 (Approximate), Expires: 10/04/2025Start: 10-04-2024 End: [id number] encounter procedureNOMS SH ENDOCRINOLOGYComment on above: ArrivedStart: 09-05-2024 End: 89-26-5588ZLR/RhABO/Rh Lab Routine Missed menses , unspecified gestational age ([facility]) Expected: 09/05/2024 (Approximate), Expires: 09/05/2025[facility]:Expected: 09/05/2024 (Approximate), Expires: 09/05/2025Start: 09-05-2024 End: 03-31-2915Xadfi type and Indirect antibody screen panel - BloodType and screen Lab Routine Missed menses , unspecified gestational age ([facility]) Expected: 09/05/2024 (Approximate), Expires: 09/05/2025[facility] Work Phone: comment on above:Expected: 09/05/2024 (Approximate), Expires: 09/05/2025Start: 09-05-2024 End: 70-43-7311Wjmnq of abuse panel - Urine by Screen methodRapid drug screen, urine Lab Routine , unspecified gestational age ([facility]) Encounter for supervision of normal first in first trimester ([facility]) Expected: 09/05/2024 (Approximate), Expires: 09/05/2025[facility] HealthcareComment on above: Expected: 09/05/2024 (Approximate), Expires: 09/05/2025Start: 09-05-2024 End: 27-22-2446bsirgprrex57/10/2025 1:30 PM EDT Initial [facility] [address] [place] [address] [facility] OBStart: 09-05-2024 End: 73-96-5998Xvxfpwnknrsx / ancillary services iywnsxsgah65/10/2025 1:00 PM EDT Ancillary Procedure [facility] [address] [place] [address] [facility] OBStart: 08-09-2024 End: 89-22-7634Kjuxqzivirs [Units/volume] in Serum or PlasmaTSH Lab Routine Alfredo's disease Thyroid disease during , first trimester ([facility]) Expected: 08/09/2024 (Approximate), Expires: 08/09/2025[facility] HealthcareComment on above:Expected: 08/09/2024 (Approximate), Expires: 08/09/2025Start: 08-09-2024 End: 64-31-5661Tatgwkttv (T4) free [Mass/volume] in Serum or PlasmaT4, free Lab Routine Alfredo's disease Thyroid disease during , first trimester (HCC) Expected: 08/09/2024 (Approximate), Expires: 08/09/2025[facility] Comment on above:Expected: 08/09/2024 (Approximate), Expires: 08/09/2025Start: 08-09-2024 End: 51-44-5577Napffryoerlglvwg (T3) Free [Mass/volume] in Serum or PlasmaT3, free Lab Routine Alfredo's disease Thyroid disease during , first trimester (HCC) Expected: 08/09/2024 (Approximate), Expires: 08/09/2025[facility] Work Phone: Comment on above:Expected: 08/09/2024 (Approximate), Expires: 08/09/2025Start: 04-55-0655Hilbablb identified in Urine by Culture [facility]: 18-56-2323Pdxjy microalbumin profile DTAP,TDAP,TD (2 - Td)[facility]: 65-88-4557AZH TESTINGPAP TESTING [facility]: 80-83-3722Kfktodczm vaccinationINFLUENZA (Season Ended) [facility]: 72-71-7489LVnW,Tdap and Td Vaccines (2 - Td or Tdap) DTaP,Tdap and Td Vaccines (2 - Td or Tdap)[facility]: 18-79-2099Bjgupgjjb for malignant neoplasm of cervixPap SmearAtrium Healthtart: 16-13-9019Bzbjl BMI Follow Up PlanAdult BMI Follow Up PlanAtrium Healthtart: 76-47-0958YWZRPWUAO C SCREENINGHEPATITIS C SCREENING [facility]: 10-10-5862JVQ SCREENINGHIV SCREENINGBl[facility] Start: 38-44-8439Zihvv depression screening assessmentDEPRESSION SCREENING [facility]: 72-20-3422Rhkbuha ScreeningTobacco Screening [facility] SouthBacteria identified in Urine by CultureUrine culture Microbiology Routine Missed menses Ordered: 09/05/2024[facility] HealthcareComment on above:Ordered: 09/05/2024BC W Auto Differential panel - BloodCBC and differential Lab Routine Missed menses , unspecified gestational age ([facility]) Ordered: 09/05/2024[facility] HealthcareComment on above:Ordered: 09/05/2024 CHLAMYDIA TRACHOMATIS (GENITO/STI)CHLAMYDIA TRACHOMATIS (GENITO/STI) Lab Routine Vaginal discharge Ordered: 11/07/2024[facility] HealthcareComment on above:Ordered: 11/07/2024ytology Cervical or vaginal smear or scraping studyPap Smear Pathology and Cytology Routine Well woman exam with routine gynecological exam Ordered: 11/07/2024[facility] HealthcareComment on above:Ordered: 11/07/2024Hemoglobin A1c/Hemoglobin.total in BloodHemoglobin A1c Lab Routine Missed menses , unspecified gestational age ([facility]) Ordered: 09/05/2024[facility] HealthcareComment on above:Ordered: 09/05/2024Hepatitis B virus surface Ag [Presence] in Serum or Plasma by ImmunoassayHepatitis B surface antigen Lab Routine Missed menses , unspecified gestational age ([facility]) Ordered: 09/05/2024[facility] HealthcareComment on above:Ordered: 09/05/2024Hepatitis C virus Ab [Presence] in Serum or Plasma by ImmunoassayHepatitis C antibody Lab Routine Missed menses , unspecified gestational age ([facility]) Ordered: 09/05/2024[facility] HealthcareComment on above:Ordered: 09/05/2024HIV-1/HIV-2 antigen/antibody combination immunoassayHIV-1 and HIV-2 antibodies Lab Routine Missed menses , unspecified gestational age ([facility]) Ordered: 09/05/2024[facility] HealthcareComment on above:Ordered: 09/05/2024Human papilloma virus DNA [Presence] in Unspecified specimen by Probe with amplificationHPV DNA probe, amplified Microbiology Routine Well woman exam with routine gynecological exam Ordered: 11/07/2024[facility] HealthcareComment on above:Ordered: 11/07/2024 Neisseria gonorrhoeae DNA [Presence] in Unspecified specimen by NICHOLE with probe detectionNeisseria gonorrhea DNA probe, direct Lab Routine Vaginal discharge Ordered: 11/07/2024[facility] HealthcareComment on above:Ordered: 11/07/2024Reagin Ab [Presence] in Serum by RPRRPR Lab Routine Missed menses , unspecified gestational age ([facility]) Ordered: 09/05/2024[facility] HealthcareComment on above: Ordered: 09/05/2024Rubella antibody, IgGRubella antibody, IgG Lab Routine Missed menses , unspecified gestational age ([facility]) Ordered: 09/05/2024[facility] HealthcareComment on above:Ordered: 09/05/2024 End: 94-47-5627HTJS-COVID VACCINE 1ST DOSE APPTSARS-COVID VACCINE 1ST DOSE APPT Procedures Routine 1 Occurrences starting 06/10/2020 until 08/09/2020leveland ClinicComment on above:1 Occurrences starting 06/10/2020 until 08/09/2020 SURESWAB(R) ADVANCED VAGINITIS PLUS, TMASURESWAB(R) ADVANCED VAGINITIS PLUS, TMA Pathology and Cytology Routine Exposure to STD Ordered: 11/07/2024[facility] Healthcare Work Phone: comment on above:Ordered: 11/07/2024XR Chest 2 [facility] Immunizations Immunization DateImmunizationNotesCare FojicvjhVwpkbaat29-77-3416vyrfhin toxoid, reduced diphtheria toxoid, and acellular pertussis vaccine, adsorbedAhcherri Carr MD Work Phone: [facility] Payers DatePayer CategoryPayerPolicy ID2025Medicaid (Managed Care)[facility] [id number] 2025[facility] Member Subscriber Plan / Payer (Effective 2024-Present) Name: Brittnee Smith Relation to Subscriber: Self Name: Brittnee Smith Payer ID: [id number] (NAIC) Group ID: Not on file Type: Not on file Address: [address] [id number]-[id number] 2019Private Health InsuranceAETNA PAKOT[place] PPO [id number] 2018-Present [id number] Health InsuranceAETNA AETNA PPO [id number] 2018-Present [id number] 2.0.1.430353.3.57[id number] 2.0.1.336984.3.57[id number] 2.840.1.243701.3.57[id number] 2.0.1.430834.3.57[id number] 2.0.1.151663.3.57[id number] 2.840.1.268087.3.57[id number] 2..840.1.734402.3.57[id number] 2.16.840.1.859989.3.57[id number] 2.16.840.1.450867.3.57[id number] 2.16.840.1.293427.3.57[id number] 2.840.1.575339.3.57[id number] 2.840.1.052205.3.57[id number] 2.0.1.755100.3.57[id number] 2.840.1.882250.3.57[id number] 2.840.1.57[id number] 2.840.1.776285.3.579.2.531 [id number] 2.0.1.0[id number] 2.0.1.901573.3.579.2.531 Social History DateTypeDetailFacilityStart: 07-02-2018 End: 67-19-8315Ygvfpie smoking status NHISNever smokerParkview Health Bryan Hospitaltart: 07-02-2018 End: 14-46-6602Wldpxhl use and exposureNever usedGreene Memorial Hospitaltart: 07-02-2018 End: 91-86-0722Gzntkpj intakeCurrent drinker of alcohol (finding)[facility] Hospitaltart: 25-38-9280Yja Assigned At BirthNot on fileGreene Memorial Hospitaltart: 08-07-2023 End: 02-36-8556Nyi Assigned At [facility]art: 63-13-4055Gib Assigned At [facility]: 08-07-2023 End: 54-54-3713Qidlstmaf beverage intakeShelby Memorial Hospital SystemStart: 09-04-2022 Alcohol CommentAlcohol: 1 or 2 drinks, 2 to 4 times a month; Caffeine: 1 can /weekBL[facility] HealthcareStart: 43-32-0414Ynddtj identityIdentifies as female gender (finding)[facility] HospitalStart: 75-60-7149Odqcof orientationHeterosexual (finding)[facility] HospitalStart: 66-80-1283RqsdmulfnVLGY HealthcareStart: 11-14-2024 End: 93-65-9893Jybevdndu beverage intakeEx-drinker (finding)[facility]: 22-77-5232JgvppmdquOgekusbGibSddzjo Health SystemStart: 10-02-2014 SexFemale (finding)[facility] Functional Status ZvjaIgujnorxqlJwlimvAirxuxdg05-04-8997Bjpmxth Health Questionnaire 2 item (PHQ- 2) [Reported][facility] Clinical Notes 06-10-2020 to 12-13-2024 Note Date & KglbAwxnBzyssqwx50-94-6450 History of Present illness Narrative* Kenji Plascencia [...] mcg of Synthroid. 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 Patient does have ultrasound scheduled with us [...] Yes Have you been seen here at [facility] in a previous ? Yes Recent ER visits or hospitalizations? No Bring blood sugar log or meter with you today? (Please bring them with you for every visit at [facility]) N/A Flu vaccine (Dec-April)? N/A Any concerns that you would like me to mention to the provider today? No documented in this encounterPremier [facility]10-16-2025 History of Present illness Narrative* Calista Khan LPN - 12/12/2024 9:30 AM EDTAssociated Order(s): Colposcopy Post-Procedure Diagnose(s): Colposcopy needed after cervical smear; Second trimester ([facility]); 22 weeks gestation of ([facility]) Reason for Appointment: Patient ID: Brittnee [...] 11/16/2017 Unable to comply with treatment 07/26/2022 ([facility]) 11/28/2017 Exposure to STD 05/31/2023 Encounter for weight management 05/31/2023 Dermatitis, atopic 08/04/2005 Allergic rhinitis 02/18/2000 Asthma ([facility]) 02/18/2000 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 Exam conducted with a non linear editor present. Vitals: Estimated body mass index is 41.81 kg/m as calculated from the following: Height as of 10/04/24: 5' 3 . Weight as of this encounter: 236 lb. BP: 108/62 Patient's last menstrual period was 06/26/2024. ASSESSMENT & PLAN Assessment/Plan Encounter Diagnosis: ICD-10-CM 1. Colposcopy needed after cervical smear R87.619 2. Second trimester ([facility]) Z34.92 3. 22 weeks gestation of ([facility]) Z3A.22 POCT urinalysis dipstick manually resulted Colposcopy [...] weeks of levels. Patient is scheduled with [facility] for anatomy scan tomorrow. Follow Up: [...] TOOTH EXTRACTION 07/2013 teeth documented in this encounterMercy McCune-Brooks HospitalGnccnbkciq77-03-8584 Telephone encounter Note* Telephone Encounter - Caryn Lopez NP - 11/13/2024 4:56 PM EDT Please schedule for colposcopy due to PAP ASCUS and HPV positive [facility] Healthcare Work Phone: [phone] 363-856209-17-2025 Miscellaneous Notes* Telephone Encounter - Caryn Lopez NP - 11/13/2024 4:56 PM EDT Please schedule for colposcopy due to PAP ASCUS and HPV positive documented in this encounterMercy McCune-Brooks HospitalCsgjqdesta36-06-9407 History of Present illness Narrative* Caryn Lopez [...] 11/16/2017 Unable to comply with treatment 07/26/2022 ([facility]) 11/28/2017 Exposure to STD 05/31/2023 Encounter for weight management 05/31/2023 Dermatitis, atopic 08/04/2005 Allergic rhinitis 02/18/2000 Asthma ([facility]) 02/18/2000 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 Exam conducted with a non linear editor present. Vitals: Estimated body mass index is 40.64 kg/m as calculated from the following: Height as of 10/04/24: 5' 3 . Weight as of this encounter: 229 lb 6.4 oz. BP: 100/72 Patient's last menstrual period was 06/26/2024. ASSESSMENT & PLAN ICD-10-CM 1. 17 weeks gestation of ([facility]) Z3A.17 POCT urinalysis dipstick manually resulted Alpha fetoprotein, maternal Alpha fetoprotein, maternal 2. Second trimester ([facility]) Z34.92 POCT urinalysis dipstick manually resulted Alpha fetoprotein, maternal Alpha fetoprotein, maternal 3. History of hyperthyroidism Z86.39 4. Well woman exam with routine gynecological exam Z01.419 Pap Smear HPV DNA probe, amplified 5. Screening, , for anatomic survey ([facility]) Z36.89 US OB 14+ weeks anatomy scan US OB 14+ weeks anatomy scan 6. Vaginal discharge N89.8 CHLAMYDIA TRACHOMATIS (GENITO/STI) Neisseria gonorrhea DNA probe, direct 7. Exposure to STD Z20.2 SURESWAB(R) ADVANCED VAGINITIS PLUS, TMA Return OB/Annual Exam: Patient presents today for a annual exam/routine obstetrics appointment. Patient is currently 46t2rrxjokkgz. Patient states she is doing well but [...] Synthroid at 300mcg per Dr. Carr her Effervescent Salts Compounder. Will also refer to [facility] Patient was in the ER for a toe infection and was treated she was having high blood pressure there and she is seeing [facility] for about 1 1/2 to 2 weeks. Referral will be sent to [facility] given her history of hypothyroidism. 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 Exam conducted with a non linear editor present. Vitals: Estimated body mass index is 40.35 kg/m as calculated from the following: Height as of 25: 5' 3 . Weight as of this encounter: 227 lb 12.8 oz. BP: 108/70 Patient's last menstrual period was 06/26/2024. ASSESSMENT & PLAN ICD-10-CM 1. 13 weeks gestation of ([facility]) Z3A.13 POCT urinalysis dipstick manually resulted 2. Second trimester ([facility]) Z34.92 POCT urinalysis dipstick manually resulted New [...] or undercooked meat, and stay away from [facility]. 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 Acute bronchitis 05/13/2024 Acute pharyngitis 09/10/2009 Acute streptococcal pharyngitis 05/13/2024 Encounter for childhood immunizations appropriate for age 0708/30/2007 Obesity affecting , antepartum ([facility]) 11/13/2018 Hyperthyroidism 11/28/2017 Resolved Ambulatory Problems Diagnosis Date Noted Anemia of ([facility]) 04/24/2018 -induced hypertension ([facility]) 04/29/2018 Past Medical History: Diagnosis Date Body [...] dipstick manually resulted , unspecified gestational age ([facility]) - Type and screen; Future - ABO/Rh; Future - CBC and differential - Hemoglobin A1c - RPR - Rubella antibody, IgG - Hepatitis B surface antigen - Hepatitis C antibody - HIV-1 and HIV-2 antibodies - Rapid drug screen, urine; Future Encounter for supervision of normal first in first trimester ([facility]) - Rapid drug screen, urine; Future [...] or undercooked meat, and stay away from [facility]. Patient has also been advised to [...] by: Marcie Flannery LPN documented in this encounterMercy McCune-Brooks HospitalPjwcynnojh55-35-5868 History of Present illness Narrative* Allen Carr [...] (BMI) of 40.0 to 44.9 in adult ([facility]) Thyroid disease during , first trimester ([facility]) - Synthroid 300 MCG tablet; Take 1 tablet (300 mcg) by mouth Daily - T3, free; Future - T4, free; Future - TSH; Future She just found she is , we will check free T4 free T3 to keep it in the high-normal. Follow up in about 2 months (around 10/09/2024). documented in this encounterMercy McCune-Brooks HospitalHecdhunuzv87-80-6915 History of Present illness Narrative* Brandy Galeana [...] nursing note reviewed. Exam conducted with a non linear editor present. Vitals: Estimated body mass index is [...] given: yes Instructions and paperwork completed: yes Thompson protocol: Patient states understanding of procedure being [...] of: Ha Baker DO documented in this encounterMercy McCune-Brooks HospitalQoyjydoudy35-87-9545 Evaluation note* Encounter Date Diagnosis Assessment Notes [...] treatment plan. Patient left in stable condition. [facility] Other 12-04-2023 Evaluation note* Encounter Date Diagnosis [...] the ER for worsening symptoms or concerns [facility] Other 10-17-2023 Evaluation note* Encounter Date Diagnosis [...] understanding and is agreeable to treatment plan [facility] Other 06-19-2023 Evaluation note* Encounter Date Diagnosis [...] Tylenol as needed for aches or pains. [facility] Other 04-14-2021 NotePatient Outreach (COVAFW) BRITTNEE SMITH ([id number]) 1995 F Date Time Provider Department 06/10/20 JOSE A STEWART COVJUDYW During your visit today, we recorded the following information about you: Allergies As of Date: 06/10/2020 Noted Allergy Reaction SULFA (SULFONAMIDE ANTIBIOTICS) 07/02/2018 2 - Rash Date Reviewed: 07/02/2018 Reviewed by: Sakina PickeringNY) - Fully Assessed Order(s):SARS-COVID VACCINE 1ST DOSE APPT [[id number]] Order #: [id number] FUTURE SARS-COVID VACCINE 1ST DOSE APPT [[id number]] Order #: [id number] Prescriptions as of 06/10/2020 Sig: SYNTHROID 125 MCG TABLET Take 2 tablets by mouth once * Problem List As Of Date: 06/10/2020 (None) Encounter Status:Closed by APRIL NIXON on 06/15/20[facility]Evaluation noteNo assessment information availableC[facility] Work Phone: Evaluation noteNo InformationNort Tomveyi Bidamon Other Evaluation note* Diagnosis Onset Date Resolution Status Acute UTI acute [facility] Work Phone: Evaluation note* Diagnosis Onset Date Resolution Status Acute UTI acuteBronchitisacute [facility] Work Phone: Evaluation note* Diagnosis Encounter for removal of intrauterine contraceptive device (IUD) documented in this encounter [facility] HealthcareEvaluation note* Diagnosis Alfredo's disease- Primary Chronic lymphocytic thyroiditis Vitamin D deficiency Encounter for dietary consultation Class 3 severe obesity due to excess calories without serious comorbidity with body mass index (BMI) of 40.0 to 44.9 in adult ([facility]) Thyroid disease during , first trimester ([facility]) Hypothyroidism, unspecified type documented in this encounter [facility] HealthcareEvaluation note* Diagnosis Missed menses , unspecified gestational age ([facility]) Encounter for supervision of normal first in first trimester ([facility]) documented in this encounter [facility] HealthcareEvaluation note* Diagnosis Alfredo's disease- Primary Chronic lymphocytic thyroiditis Vitamin D deficiency Encounter for dietary consultation Thyroid disease during , first trimester ([facility]) Hypothyroidism, unspecified type documented in this encounter [facility] HealthcareEvaluation note* Diagnosis 13 weeks gestation of ([facility]) Second trimester ([facility]) state, incidental Nausea and vomiting in ([facility]) Unspecified vomiting of , unspecified as to episode of care History of hyperthyroidism Constipation, unspecified constipation type documented in this encounter [facility] HealthcareEvaluation note* Diagnosis 17 weeks gestation of ([facility]) Second trimester ([facility]) state, incidental History of hyperthyroidism Well woman exam with routine gynecological exam Routine gynecological examination Screening, , for anatomic survey ([facility]) Encounter for anatomic survey Vaginal discharge Leukorrhea, not specified as infective Exposure to STD documented in this encounter 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 documented in this encounterMercy McCune-Brooks HospitalInstructionsNot on filedocumented in this encounterProUniversity [facility]als [facility] SystemInstructionsNot on filedocumented in this encounterProUniversity [facility]als [facility] SystemInstructionsNot on filedocumented in this encounterShelby Memorial [facility] System Summary Purpose Family History No Family [...] or prosecute any alcohol or drug abuse patient.[facility] INFORMATION SOURCE (unrecogn ized section and content) DATE CREATED AUTHOR 06/17/2020 [facility] DATE CREATED AUTHOR AUTHOR'S ORGANIZ ATION 08/05/2022 [facility] DATE CREATED AUTHOR AUTHOR'S ORGANIZ ATION 11/28/2023 [facility] DATE CREATED AUTHOR AUTHOR'S ORGANIZ ATION 10/25/2024 [facility] DATE CREATED AUTHOR AUTHOR'S ORGANIZ ATION 12/14/2024 [facility] DATE CREATED AUTHOR AUTHOR'S ORGANIZ ATION 12/15/2024 [facility] REASON FOR VISIT (unrecogniz ed section [...] Date No Pcp, [place] [id number] PCP - GeneralFamily Medicine10/23/24Team MemberRelationshipSpecialtyStart DateEnd Date No Pcp, [place] [address] PCP - GeneralFamily Medicine10/23/24Team MemberRelationshipSpecialtyStart DateEnd Date No Pcp, [place] [address] PCP - GeneralFamily Medicine10/23/24 Goals (unrecognized section [...] BE BASED ON THE PRIMARY CLINICAL RECORDS. [facility]. provides no warranty or guarantee of the accuracy or completeness of information in this document.
[2025-01-30 11:39] LABS: Glucose 1 Hour 162 mg/dL (<180)
[2025-01-30 12:42] LABS: Glucose 2 Hour 123 mg/dL (<155)
[2025-01-30 13:16] LABS: Glucose 3 Hour 145 mg/dL (<140)
== END 2025-01-30 09:41 | disposition home or self-care (01) ==
LOC: LAB 09:42
PROVIDERS: Visit Provider Obstetrics & Gynecology
DX: R73.09 Other abnormal glucose (principal)
CPT/HCPCS: 36415; 82951; 82952

== ENCOUNTER 2025-01-30 09:45 | Outpatient (OUT) | payer OTHER, SELFPAY ==
--- OUTSIDE RECORDS SUMMARY | 2025-01-30 09:49 | XMS_ITS | Data Portability ---
Author Organization [place] [facility] Address [address] [place] [address] Care Team Providers Care Extender Name Role Phone CAROLCHEYENNEJarekROSS Primary Care Provider Assessment Encounter Date Assessment Date Assessment LastModified by Organization Details LastModified Time 01/30/2018 01/30/2018 The patient came in today to due to the results of an abnormal EKG. A repeat EKG was performed in the office with results as noted above. The patient currently experiencing symptoms. Further cardiac testing required and has been discussed with the patient. [email or web address] Not available 02/15/2018 15:13:09 Plan of Treatment Reminders Order DateSubmit DateProviderLast Modified ByOrganization DetailsLast Modified TimeDetailsAppointmentsNone recorded.LabNone recorded.ReferralNone recorded. ProceduresNone recorded.SurgeriesNone recorded.ImagingNone recorded.Medication OrdersNone recorded. Patient TargetsNo targets recorded. Patient InstructionsNo instructions recorded. Reason for Referral None Reported. Results Created Date Observation Date Name Description Value Unit Range Abnormal Flag Note LastModifiedBy Organization Detail LastModifiedTime 03/12/2018 US, echocardiogramNo observation recorded.pwycoe8Brd Bytzdgsvb05/14/2019 13:49:52 Result Notes None recorded. Medical Equipment None Reported. Allergies Allergen ID Allergen Name Allergen Category Reaction Reaction Severity Criticality Documentation Date Start Date Code Code System Note Provider Name and Address Organization Details Recorded Time 813 Substance with sulfo namide structure and antibacterial mechanism of action (substance) medication Not available Not available Not /15/[id number] Vasiliy ascencio [place] [facility] Kjggewuzzwm71/15/2019 15:19:33 Medications Name Sig Start Date Stop Date Status Note LastModified by Organization Details LastModified Time Synthroid 200 mcg tablet Take 1 tablet every day by oral route. activeNot AvailableNot AvailableNot AvailableSynthroid 25 mcg tabletTake 1 tablet every day by oral route.activeNot AvailableNot AvailableNot Available Vitals Date Recorded Body weight Body mass index (BMI) Body height Respiratory rate Heart rate Oxygen saturation Systolic And Diastolic Provider Name and Address Organization Details Last Updated DateTime 9 44512.4 g 36 kg/m2 162.56 cm 16 /min 94 /min 98 % 112/60 mm[Hg] [facility] 9 15:19:18 Social History Question Answer Notes LastModified by Organization D etails LastModified Time Tobacco Smoking Status Never Smoker [place], [place] - [facility] Ymjlymmcgtw80/15/2019 15:21:12Marital StatusSingle eplsapgo50Jzgseolbzut not /15/2019What Was The Date Of Your Most Recent Tobacco Screening?03/13/2018DBA_[id number] not available 09/20/2018 Sex: Unknown Functional Status None recorded. Mental Status None recorded. Family History Nothing Reported Notes:mother alive father al ricky Medical History Condition Response Coronary Artery Disease N Atrial Fibrillation N Thyroid Disease N Depression N COPD N Congenital Heart Disease N Pacemaker N Peripheral Arterial Disease N TIA N Genitourinary Disease N Gastrointestinal [...] Note 77 Mini Gipson MD Main Office [address] [place] [id number] 01/30/2018 10:52:38 01/30/2018 15:49:20 Electrocardiogram abnormal [id number] R94.31 2002JAjit Giraldoin Office [address] [facility] [address] [place] [address] 03/13/2018 15:10:10003/13/2018 15:47:46Systolic [id number] Echo 01/30/18 - EF of 65-70%, trace MVR, trace [id number] Thyroid function and medication management per PCP/endocrinology.Palpitations 46536104L86.2 Event monitor shows episodes of tachycardia, however [...] Guarantor Name 07/31/2018 1 [employer]) [id number] Munir Mathur [id number] [facility] 12/05/2022 2 [facility] (MEDICAID REPLACEMENT - HMO) [id number] [facility] [id number] [facility] [employer] [facility])Munir [id number] Ysasi Notes Date Note Type Note Provider Name and Address Orga nization Details Recorded Time 01/30/2018 text/html Patient presents today with a history of abnormal EKG results. Patient is . Associated Symptoms: chest pain. dizziness. fainting. palpitations. shortness of breath. weakness. fatigue.Mini Gipson MD [address] [facility], [place], [address], [facility] Qrjryghhenx25/26/2018 14:34:text/html Patient is a 23 year old female with a past medical history of palpitations and hypothyroid who presents to the office for test results. Denies any chest pain, palpitations, shortness of breath, edema, n/v/d, fever/chills, headaches, dizziness, fatigue or bowel/urinary complaints.SRIKANTH [facility] - [facility] Tmjfkgxqpex68/15/2019 15:49:42 OBGyn Episode No OBEpisode recorded.
--- OUTSIDE RECORDS SUMMARY | 2025-01-30 09:50 | XMS_ITS | Patient Health Record ---
Author Organization [facility] Address [address] [place] [address] Care Team Providers Care Systems Spec Name Role Phone emmy schultz Unavailable [phone] Allergies Allergen (clinical drug ingredient) Drug/Non Drug [...] Status W/U Status Risk Notes Problem Obesity (397297838) Obesity (BMI 35.0-39. 9 without comorbidity) (E66.9) Activeconfirmed Plan Of Treatment Pending Test Test Name Order Date X ray : Spines, lumbosacral 08/14/2018 URINE RAPID TEST 08/14/2018 CMP Comprehensive Metabolic Panel w/ eGF R (80720) [facility] 08/14/2018 Lipid Panel w/ Reflex to Direct LDL (148 52) [facility] 08/14/2018 Vitamin D, 25-Hydroxy, Total, Immunoassa y (21222) - [facility] 08/14/2018 HEMOGLOBIN A1c (496) [facility] 08/14/2018 UA Urinalysis Complete (7878) [facility] 07/28 CBC (includes Differential and Platelets ) (0099) [facility] 08/14/2018 TSH and FREE T4 (93003) [facility] 08/14/2018 Insurance Providers Payer Name Payer Address Payer Phone Subscriber Number Group Number Insured Name Patient Relationship to Insured Coverage Start Date Coverage End Date [employer] [facility] PPO/POS/HMO [employer] [address] [place] [address] [id number] Lars Mathur - patient is the insured Medical (General) History Medical History History ICD Code high blood pressure THYROID DISORDERSurgical History Surgery Date(Month/Year) right hand surgery 10/11 Hospitalization History Reason Date(Month/Year) broken hand 09/10 induced 05/17/18
--- OUTSIDE RECORDS SUMMARY | 2025-01-30 09:51 | XMS_ITS | CCD ---
Author Organization [facility] Inform ion Partnership [facility] Care Team Providers Care Lithographers Printer Name Role Phone Scar Bellamy Primary Care [...] NO PCP, NO PCP Primary Care Unavailable ALISAH ORDONEZ Attending Unavailable NO PCP, NO PCP [...] of OnsetReaction(s) FacilitySulfonamides (antibiotic) (1 source)Sulfonamides (Antibiotic)Drug Fensuei04-38-8329LihlTfsvsbsqd Clinic (6 sources)Erythromycin / sulfiSOXAZOLEDrug Mkqpoii79-21-0464swngIeyBucyrus Community Hospital Repository (1 source)Sulfonamides (Antibiotic)Drug allergy (disorder)96-09-2905[facility] (20 sources)Substance with sulfonamide structure and antibacterial mechanism of action (substance)Drug ruftckb64-09-1316lwzj, Other[place] App[employer]fer Other (6 sources)sulfiSOXAZOLE; Translations: [sulfisoxazole]Drug Yzzkqcf87-91-1403 [facility] (8 sources)Sulfonamides (Antibiotic); Translations: [Sulfa (Sulfonamide Antibiotics)]Allergy to tuimqsjwr60-55-6513boneAnpjsevdfSelect [facility]ty [facility] (6 sources)erythromycin base; Translations: [erythromycin base]Allergy to sojyluinh24-80-8633pgxeBtmokysisUC West Chester Hospital (20 sources)Sulfamethoxazole; Translations: [SULFAMETHOXAZOLE]Propensity to adverse znprpoiul43-15-7945NpkvXJID Healthcare (20 sources)OtherAllergy to ldizgqulr00-39-5138Zssq, [facility] [employer] Work Phone: (5 sources)Erythromycin / sulfiSOXAZOLE; Translations: [ERYTHROMYCIN-SULFISOXAZOLE]Drug Lyjnqzp02-67-4673EtdmFfjOvcxxg Repository (3 sources)SulfamethoxazoleDrug Ozvwejl41-45-9782SvpkPtmQaotke Health System Medications Current Medications MedicationDrug Class(es)DatesSig (Normalized)Sig (Original)Albuterol (2 sources)beta2-Adrenergic AgonistStart: 40-70-6075Ltbbqjmpn Sulfate Active 2 INH INHALATION EVERY 4-6 HOURS 6.7 14 November 20, 2023 12:00amamoxicillin 875 mg / clavulanate 125 mg oral tablet (1 source)Penicillin-class AntibacterialStart: 25-36-5387hqoo 1 tablet by mouth every twelve hoursAmoxicillin-Pot [...] rectal suppository (12 sources)Stimulant LaxativeStart: 10-08-2024 End: 68-99-4728hkmutwfyl (Dulcolax) 10 MG suppository Indications: Constipation, unspecified constipation type UNWRAP AND INSERT 1 SUPPOSITORY RECTALLY DAILY FOR 10 DAYS 10 suppository 10/11/2024 BkabbrFzvhqonxwyuihqi-Nxebybzpl-Hw (Bromfed Dm) 2-30-10 mg/5 mL syrup (2 sources)Start: 00-61-1473kwrs 1 mL by mouth every four to six hours Ydbnpvagrecuvtc-Npgtgnoso-Nq (Bromfed Dm) 2-30-10 mg/5 mL syrup Active 10 ML PO EVERY 4-6 HOURS Sept2023 12:00amciprofloxacin 0.003 mg/mg ophthalmic ointment (2 sources)Quinolone AntimicrobialStart: 39-13-2979Envwdwu 0.3 % 1 application into the lower eyelid of affected eye left eye Twice a day for 7 days Jan, Activedocusate sodium 100 mg oral capsule (5 sources)Start: 10-08-2024 End: 63-06-7417bsap 1 capsule by mouth twice daily as needed for constipation docusate sodium (Colace) 100 MG capsule Indications: Constipation, unspecified constipation type Take 1 capsule (100 mg) by mouth 2 (two) times a day as needed for constipation 30 capsule 5 10/08/2024 11/07/2024 Activefluticasone propionate 0.05 mg/actuat metered dose nasal spray (20 sources)CorticosteroidStart: 05-80-8469kqxh 2 spray(s) nasal route once dailyFluticasone Propionate [...] mg oral tablet (20 sources)l-ThyroxineStart: 10-08-2024 End: 61-79-2097flwz 1 tablet by mouth before mealtimelevothyroxine (Synthroid) 25 MCG tablet Indications: History of hyperthyroidism Take 1 tablet (25 mcg) by mouth in the morning. Take before meals. 30 tablet 11 11/08/2024 11/08/2025 ActiveStart: 12-28-2022 End: 81-22-1259fjsq 1 tablet by mouth once dailySynthroid 300 MCG tablet Indications: Alfredo's disease , Thyroid disease during , first trimester (HCC) Take 1 tablet (300 mcg) by mouth Daily 90 tablet 1 11/11/2024 05/10/2025 ActiveStart: 76-91-1505chaq 2 tablets by mouth once dailySYNTHROID 125 [...] ActivemethylPREDNISolone 4 mg oral tablet (2 sources)CorticosteroidStart: 68-85-4074nkct 1 tablet by mouth once Methylprednisolone (Medrol (Maximus)) 4 mg tablets,dose pack Active 0 PO per package directions November 20, 2023 12:00am PO PER PKG DIRpolyethylene glycol 3350 87721 mg powder for oral solution (1 source)Osmotic LaxativeStart: 09-02-2024 End: 35-04-7799ampvvjzobetr glycol (GLYCOLAX) 17 gram packet Take 17 [...] 28-0.8 MG tablet (17 sources)Start: 08-26-2024 End: 31-19-4114mcnj 1 tablet by mouth once dailyPrenatal Vit-Fe Fumarate-FA ( Vitamins) 28-0.8 MG tablet Indications: Positive urine test ([facility]) Take 1 tablet by mouth Daily 30 tablet 3 08/26/2024 08/26/2025 Active promethazine hydrochloride 12.5 mg oral tablet (5 sources)PhenothiazineStart: 10-08-2024 End: 92-10-2913poxr 1 tablet by mouth every four hourspromethazine (Phenergan) 12.5 MG tablet Indications: Nausea and vomiting in ([facility]) Take 1 tablet (12.5 mg) by mouth every 4 (four) hours 60 tablet 1 10/08/2024 11/07/2024 Active Completed/Discontinued Medications MedicationDrug Class(es)DatesSig (Normalized)Sig (Original)dextromethorphan hydrobromide 15 mg / guaiFENesin 400 mg / pseudoephedrine hydrochloride 60 mg oraltablet (5 sources)alpha-Adrenergic Agonist, Uncompetitive U-amxwun-U-aspartate Receptor Antagonist, Sigma-1 AgonistStart: 04-18-2023 End: 94-31-9089dhzw 4 tablets by mouth every twenty-four hours Mllqhckfinycilr-Jd-Jqknimyfiad (Capmist Dm) 60-15-400 mg tablet Discontinued 1 TAB PO EVERY 4-6 HOURS April 18, 2023 1:00am October 10, 2023 5:46pm do not exceed 4 doses per 24 hrslevonorgestrel 0.452450 mg/hr intrauterine system (19 sources)Progestin, Progestin-containing Intrauterine DeviceStart: 12-26-2022 End: 57-50-0492Twcudtaiftmahw intrauterine device 52 mgnitrofurantoin, macrocrystals 25 mg / nitrofurantoin, monohydrate 75 mg oral capsule (6 sources)Nitrofuran AntibacterialStart: 09-23-2024 End: 02-49-7290qwjs 1 capsule by mouth in the morningnitrofurantoin, macrocrystal-monohydrate, (Macrobid) 100 MG capsule Indications: UTI symptoms Take 1 capsule (100 mg) by mouth in the morning and 1 capsule (100 mg) before bedtime. Do all this for 7 days. 14 capsule 09/23/2024 10/08/2024 Discontinued Start: 10-10-2023 End: 00-30-8605efnn 1 capsule by mouth every twelve hours at mealtime Nitrofurantoin Monohyd/M-Cryst (Macrobid) 100 mg capsule Discontinued 100 MG PO Every 12 hours 2023 12:00am November 20, 2023 1:06pm must administer with a meal/foodondansetron 4 mg disintegrating oral tablet (10 sources)Serotonin-3 Receptor AntagonistStart: 08-26-2024 End: 11-60-4868xlah 1 tablet by mouth every six hours as needed for nausea and vomiting and nausea and nauseaondansetron ODT (Zofran-ODT) 4 MG disintegrating tablet Indications: Nausea Take 1 tablet (4 mg) bymouth every 6 (six) hours if needed for nausea or vomiting 30 tablet 2 08/26/2024 10/08/2024 ExpiredStart: 00-99-4300agpq 1 tablet by mouth every eight hours [...] mg oral tablet (4 sources)Start: 10-10-2023 End: 44-34-9993zxuj 1 tablet by mouth three times dailyPhenazopyridine (Pyridium) 200 mg tablet Discontinued 200 MG PO Three times daily 9 October 10, 2023 12:00am November 20, 2023 1:06pmphentermine hydrochloride 37.5 mg oral tablet (8 sources)Sympathomimetic Amine AnorecticStart: 05-03-2023 End: 84-79-2317qeik 1 tablet by mouth before mealtimephentermine (Adipex-P) 37.5 MG tablet Indications: Encounter for weight management Take 1 tablet (37.5 mg) by mouth in the morning. Take before meals. 90 tablet 08/07/2023 03/26/2024 Discontinued (Other)Pneumatic Walking Boot (3 sources)Start: 55-14-0077Gmeewjckz Walking Boot Nov, Not-TakingStart: 08-66-1182Txotmuizm Walking Boot Nov, Active Problems Active Problems Problem ClassificationProblemDateDocumented DateEpisodic/ChronicAllergic reactions (20 sources)Atopic dermatitis; Translations: [Atopic dermatitis, unspecified] Onset: 751906-77-9705HsiqytpHgthly (20 sources)Asthma; Translations: [Unspecified asthma, uncomplicated]Onset: 968490-40-5448BoakbjqTojtsxf obstructive pulmonary disease and bronchiectasis (2 sources)Bronchitis; Translations: [Bronchitis, not specified as acute or chronic]90-82-3377YjfduedcEkuqfpjnncoyb symptoms and ill-defined conditions (1 source)Dysuria; Translations: [Dysuria]Onset: 54-26-5472TcvteglrKrfoozmy; including migraine (20 sources)Cluster headache; Translations: [Cluster headache syndrome, unspecified, not intractable]Onset: 540120-16-5020NnclkdjOenekhdqlcfh; infection of eye (except that caused by tuberculosis or sexually transmitteddisease) (1 source)Hordeolum externum left upper eyelidEpisodicJoint disorders and dislocations; trauma-related (20 sources)Chondromalacia of patella; Translations: [Chondromalacia patellae, unspecified knee]Onset: 078357-80-5568MryznblSphnajgkn disorders (20 sources)Missed period; Translations: [Irregular menstruation, unspecified] Onset: 861666-93-5123BwohbgiIcehgcjfkor deficiencies (4 sources)Vitamin D deficiency; Translations: [Vitamin D deficiency, unspecified]14-40-1914XeiqakdUkcvq aftercare (1 source)Encounter for other specified aftercare; Translations: [Encounter for other specified aftercare]Onset: 89-50-4681EdimndzvCbahc complications of (20 sources)Maternal obesity complicating , childbirth and the puerperium, antepartum; Translations: [Obesity complicating , unspecified trimester]Onset: 884636-29-6223JffgfcqGphpu complications of (4 sources)Thyroid disease in ; Translations: [Endocrine, nutritional and metabolic diseases complicating , first trimester]08-09-2024 EpisodicOther complications of (2 sources)Vomiting of , unspecified; Translations: [Unspecified vomiting of , unspecified as to episode of care or not applicable] 16-96-3599VmmdmbruPwuwr complications of (2 sources)Hypothyroidism in ; Translations: [Endocrine, nutritional and metabolic diseases complicating , second trimester]12-13-2024 EpisodicOther female genital disorders (2 sources)Vaginal discharge; Translations: [Other specified noninflammatory disorders of vagina]07-75-0659JxpobwdvAsxku gastrointestinal disorders (3 sources)Constipation; Translations: [Constipation, unspecified]Onset: 768301-40-4205JffwmcozNuzqq gastrointestinal disorders (1 source)Constipation, unspecified; Translations: [Constipation, unspecified] Onset: 01-13-8686LutcqqpeZbryj injuries and conditions due to external causes (1 source)Injury, unspecified, initial encounterEpisodicOther lower respiratory disease (2 sources)Cough; Translations: [Cough]21-18-3812FfkpnznzMnojf nutritional; endocrine; and metabolic disorders (1 source)Obesity; Translations: [Obesity, unspecified]Onset: 11-16-2017 08-91-5019RanltenPsyln nutritional; endocrine; and metabolic disorders (20 sources)Body mass index 30+ - obesity; Translations: [Obesity, unspecified] Onset: 444759-20-1984AkjtmsxBhwdu nutritional; endocrine; and metabolic disorders (2 sources)Severe obesity; Translations: [Class 3 severe obesity due to excess calories without serious comorbidity with body mass index (BMI) of 40.0 to 44.9 in adult ([facility])]55-01-6384QxsqlyzDuqid nutritional; endocrine; and metabolic disorders (4 sources)H/O: hyperthyroidism; Translations: [Personal history of other endocrine, nutritional and metabolicdisease]66-59-7045HujebnmvOndnd and delivery including normal (20 sources)Encounter for supervision of normal , unspecified, second trimester; Translations: [Encounter for supervision of normal , unspecified, unspecified trimester]Onset: 11-28-2017 Resolved: 23-11-0850VllzfbaeArpej screening for suspected conditions (not mental disorders or infectious disease) (8 sources)Encounter for screening for malignant neoplasm of cervix; Translations: [Patient encounter status]Onset: 26-29-6283DqoljfkgMkjkx upper respiratory disease (20 sources)Allergic rhinitis; Translations: [Allergic rhinitis, unspecified] Onset: 252083-19-4167BphxeiaJjpvnzep codes; unclassified (1 source)20 weeks gestation of ; Translations: [20 WEEKS GESTATION OF ]Onset: 71-84-3109KgfwemscZaxomcvq codes; unclassified (2 sources)Gestation period, 13 weeks; Translations: [13 weeks gestation of ]47-80-6604MkduhictGyarwpqo codes; unclassified (1 source)9 weeks gestation of ; Translations: [9 weeks gestation of ]Onset: 22-19-3352ZwzurdwpZpwlllbm codes; unclassified (2 sources)Gestation period, 17 weeks; Translations: [17 weeks gestation of ]96-53-0466EgwhyfefHfnifcfc codes; unclassified (1 source)Gestation period, 22 weeks; Translations: [22 weeks gestation of ]79-92-1633UfxrihjkUjzbgzr and strains (1 source)Sprain of unspecified ligament of left ankle, initial encounter EpisodicThyroid disorders (20 sources)Congenital hypothyroidism without goiter; Translations: [Congenital hypothyroidism without goiter]Onset: 886119-77-7891MmgpaieBhishufshyjp (1 source)Cough, unspecified; Translations: [Cough, unspecified]Onset: 09-39-1514Txqtogibwqqa (1 source)Injury, unspecified, initial encounter; Translations: [Injury, unspecified, initial encounter]Onset: 08-83-6491Ptmhnfgubzof (20 sources)Unable to comply with treatment; Translations: [Unable to comply with treatment]Onset: 974006-27-1427Upiribzgkjtb (1 source)Wound CheckOnset: 73-93-3376Rngenfgxxxwy (1 source)Constipated - 9 Weeks Onset: 55-42-9362Cbyypgy tract infections (6 sources)Acute urinary tract infection; Translations: [Urinary tract infection, site not specified]49-04-7744OpiwwwxiXsfqs infection (5 sources)Viral infection, unspecified; Translations: [Disease caused by 2019-nCoV]Episodic Past or Other Problems Problem ClassificationProblemDateDocumented DateEpisodic/ChronicAcute bronchitis (20 sources)Acute bronchitis; Translations: [Acute bronchitis, unspecified] Onset: 506572-91-7380OcmfyhsvCoybzzwjgtupt and procreative management (20 sources)Patient encounter status; Translations: [Encounter for removal of intrauterine contraceptive device]Onset: 823758-39-9272GbecqrfjPxosczvvyo and other anemia (20 sources)Anemia; Translations: [Anemia, unspecified]Onset: 07-26-2022 48-44-6077FyfgaxyeYfsqgsjztvjg complicating ; childbirth and the puerperium (20 sources)-induced hypertension; Translations: [Gestational [-induced] hypertension withoutsignificant proteinuria, unspecified trimester]Onset: 04-29-2018 Resolved: 931269-53-9320TceounnxNwxhhyiitadix and screening for infectious disease (20 sources)Contact with and (suspected) exposure to other viral communicable diseases; Translations: [Contact with or exposure to other viral diseases]Onset: 97-76-3668ErjgfeftPkoef complications of (20 sources)Anemia of ; Translations: [Anemia complicating , unspecified trimester]Onset: 04-24-2018 Resolved: 453273-64-1550LogoppgIfqha upper respiratory infections (20 sources)Acute sinusitis, unspecified; Translations: [Acute pharyngitis] Onset: 48-04-9551Ljjtfzro Results Test NameValueInterpretationReference RangeFacilityColposcopyon 35-90-0249Zsunt SaludperryNARCISO 12/12/2024 10:24 AM Colposcopy Date/Time: 12/12/2024 [...] noNOMS HealthcareNOMS HealthcareUrinalysis macro (dipstick) panel (U)on 57-77-7350Ebstzquvm, UANegativeNegative - 4(70) +++ mg/dL NOMS HealthcareBlood, [...] - 1.03NOMS HealthcareUrobilinogen, UA2.00.2 - 12 mg/dLNOMS HealthcareNOHI HealthcareIGP,APTIMA HPV,AGE GDLNon 49-75-6522AMI GDLN ACOG TESTINGNote.NOMS HealthcareComment on above:TESTS RESULT FLAG UNITS REF RANGE LAB Clinician Provided Cytology Information Source.............Endocervix Other.............. No. of containers..01 ThinPrep Vial Age Algo ACOG Berenice... 30-65 FLAG LEGEND: L-Low Normal,H-High Normal,LL-Alert Low,HH-Alert High <-Panic Low,>-Panic High,A-Abnormal,AA-Critical Abnormal Performed at: 01 =G [address] [phone] Yi Martin MD, HPV APTIMAPositiveAbnormalNegativeKANE COUNTY HUMAN RESOURCE SSD HealthcareComment on above:This nucleic acid amplification test detects fourteen high- risk HPV types (16,18,31,33,35,39,45,51,52,56,58,59,66,68) without differentiation. Performed at: =G [facility] [id number] Inward Toll Operator: Yi Martin MD, Phone: [phone] Performed at: Formerly [facility] [address] [facility], [place], [place] [id number] Inward Toll Operator: Yi Martin MD, Phone: [phone] IGP, APTIMA HPV, RFX 16/18,45NoteAbnormal.NOMS HealthcareComment on above:TESTS RESULT FLAG UNITS REF RANGE LAB DIAGNOSIS: [A] 02 EPITHELIAL CELL ABNORMALITY. ATYPICAL SQUAMOUS CELLS OF UNDETERMINED SIGNIFICANCE (ASC-US). Recommendation: [A] 02 Suggest follow up as clinically appropriate. Specimen adequacy: 02 Satisfactory for evaluation. No endocervical component is identified. Performed by: Abdulkadir Bunn, Machine Ceramic Coater (ASC) Electronically si... 02 Poppy Joyner MD, [...] Low,>-Panic High,A-Abnormal,AA-Critical Abnormal Performed at: [address] [facility] [address] [place] [address] Yi Martin MD, Interpretation and review of laboratory resultsAbnormalNOHI Healthcare SPATULA-ALONE ENDOCERVIX CLINISYNCNOMS HealthcareRECURRENT VAGINITIS (HTRX)on 89-48-6948SAEDPFIZM VAGINAE 0NOMS HealthcareATOPOBIUM VAGINAENot detectedNOMS HealthcareBVAB 2,3 (BACTERIAL VAGINOSIS ASSOCIATED BACTERIA 2, 3); MOBILUNCUS IOU7VTBK HealthcareBVAB 2,3 (BACTERIAL VAGINOSIS ASSOCIATED BACTERIA 2, 3); MOBILUNCUS SPPNot detectedNOMS HealthcareCANDIDA ALBICANS, PARAPSILOSIS, IKLHZDJMTX4YWIM HealthcareCANDIDA ALBICANS, PARAPSILOSIS, TROPICALISNot detectedNOMS HealthcareCANDIDA GLABRATA0 NOMS HealthcareCANDIDA GLABRATANot detectedNOMS HealthcareCANDIDA SOBDKB4CRBM HealthcareCANDIDA KRUSEINot detectedNOMS HealthcareCHLAMYDIA PVJPYFRORTT3CXAQ HealthcareCHLAMYDIA TRACHOMATISNot detectedNOMS HealthcareGARDNERELLA VAGINALIS0 NOMS HealthcareGARDNERELLA VAGINALISNot detectedNOMS HealthcareMEGASPHAERA (TYPES 1, 2)0NOMS HealthcareMEGASPHAERA (TYPES 1, 2)Not detectedNOMS Healthcare MYCOPLASMA PZRAFOLKBC6KCIZ HealthcareMYCOPLASMA GENITALIUMNot detectedNOMS HealthcareNEISSERIA VCJWVFCDUPW0HGGH HealthcareNEISSERIA GONORRHOEAENot detected NOMS HealthcareTRICHOMONAS CCMLWCRVB4RLWG HealthcareTRICHOMONAS VAGINALISNot detectedNOMS HealthcareNOMS HealthcareUrinalysis macro (dipstick) panel (U)on 77-60-7651Lrcbjujry, UANegativeNegative - 4(70) +++ mg/dLNOMS HealthcareBlood, UANegativeNegative - 50 John/mcLNOMS HealthcareClarity, UAClearNOMS Healthcare Color, UAStrawNOMS HealthcareGlucose, UANegativeNegative - 2000(110) ++++ mg/dL NOMS HealthcareInterpretation and review of laboratory resultsAbnormalNOHI HealthcareKetones, UANegativeNegative - 160(16) ++++ mg/dLNOMS Healthcare Leukocytes, UANegativeNegative - 500+++ Anderson/mcLNOMS HealthcareNitrite, UA NegativeNegative - PositiveNOMS HealthcarepH, UA65 - 9NOMS HealthcareProtein, UA PositiveNegative - 2000(20) ++++ mg/dLNOMS HealthcareSpec Grav, UA1.0151 - 1.03 NOMS HealthcareUrobilinogen, UA1.00.2 - 12 mg/dLNOMS HealthcareNOMS Healthcare Urinalysis macro (dipstick) panel (U)on 00-29-7747Tfpruzbbl, UANegativeNegative - 4(70) +++ mg/dLNOHI HealthcareBlood, UANegativeNegative - 50 John/mcLNOHI HealthcareClarity, UAClearNOMS HealthcareColor, UAStrawNOHI HealthcareGlucose, UANegativeNegative - 2000(110) ++++ mg/dLNOHI HealthcareInterpretation and review of laboratory resultsNormalNOHI HealthcareKetones, UANegativeNegative - 160(16) ++++ mg/dLNOHI HealthcareLeukocytes, UANegativeNegative - 500+++ Anderson/mcL NOMS HealthcareNitrite, UANegativeNegative - PositiveNOMS HealthcarepH, UA65 - 9 NOMS HealthcareProtein, UANegativeNegative - 2000(20) ++++ mg/dLNOMS Healthcare Spec Grav, UA1.0151 - 1.03NOHI HealthcareUrobilinogen, UA1.00.2 - 12 mg/dLNOHI HealthcareNOHI HealthcareGLUCOSE TOLERANCE 3 HOURon 39-13-8209LYNCOMI TOLERANCE 3 HOURmg/dLNOHI HealthcareComment on above:GLU FAST 86 (<95) Col: 10/03/24 1024 GLU 1HR 161 (<180) Col: 10/03/24 1122 GLU 2HR 124 (<155) Col: 10/03/24 1224 GLU 3HR 124 (<140) Col: 10/03/24 1325 CLINISYNCNOHI HealthcareALL CBC WITH AUTO DIFFon 74-47-5117OEMORZYRJ ABSOLUTE AUTO0.1NOMS HealthcareBasophils/100 WBC (Bld)0.5 %0.2 - 2.0 %[facility] Eosinophils/100 WBC (Bld)2 %0.9 - 7.0 %NOMS HealthcareErythrocyte distribution width (RBC) [Ratio]12.7 %11.0 - 15.0 %[facility]' HospitalHematocrit (Bld) [Volume fraction]36.6 %36.0 - 48.0 %[facility] HospitalHemoglobin (Bld) [Mass/Vol]12.5 g/dL 12.0 - 16.0 g/dLHarry S. Truman Memorial Veterans' HospitalIMMATURE GRANULOCYTES ABS AUTO0.04HighNOFulton State HospitalImmature granulocytes/100 WBC (Bld)0.4 %0.0 - 0.5 %[facility] Interpretation and review of laboratory resultsAbnormalHarry S. [facility] LYMPHOCYTES ABSOLUTE AUTO2.8NOFulton State HospitalLymphocytes/100 WBC (Bld)29.9 %20.5 - 60.0 %[facility] HospitalMCH (RBC) [Entitic mass]28.7 pg26.7 - 34.0 pgSSM RehabHC (RBC) [Mass/Vol]34.2 g/dL29.9 - 35.2 g/dLHarry S. Truman Memorial Veterans' HospitalMCV (RBC) [Entitic vol]83.9 fL81.0 - 99.0 fLHarry S. Truman Memorial Veterans' HospitalMONOCYTES ABSOLUTE AUTO0.5NOMS HealthcareMonocytes/100 WBC (Bld)5.2 %1.7 - 12.0 %[facility] HospitalNEUTROPHILS ABSOLUTE AUTO5.9NOMS [facility]itan HospitalNeutrophils/100 WBC (Bld)62 %43.0 - 75.0 %[facility]' HospitalPlatelet mean volume (Bld) [Entitic vol]10.8 fL9.5 - 13.5 fLHarry S. Truman Memorial Veterans' HospitalTB EO #0.2NOMS [facility]itan HospitalTB [id number] [facility] RBC4.36NOMS [facility] WBC9.5NOFulton State HospitalCLINISYNCNMissouri Baptist Medical CenterALL CBC WITH AUTO DIFFon 98-50-4605VHLJHJRCI ABSOLUTE AUTO0.1NOMS HealthcareBasophils/100 WBC (Bld)0.5 %0.2 - 2.0 %[facility] HospitalEosinophils/100 WBC (Bld)1.2 %0.9 - 7.0 % [facility] HospitalErythrocyte distribution width (RBC) [Ratio]12.6 %11.0 - 15.0 % [facility]' HospitalHematocrit (Bld) [Volume fraction]36.8 %36.0 - 48.0 %[facility] HospitalHemoglobin (Bld) [Mass/Vol]12.6 g/dL12.0 - 16.0 g/dLHarry S. [facility] IMMATURE GRANULOCYTES ABS AUTO0.05HighNOFulton State HospitalImmature granulocytes/100 WBC (Bld)0.4 %0.0 - 0.5 %[facility]' HospitalInterpretation and review of laboratory resultsAbnormGeisinger Community Medical CenterLYMPHOCYTES ABSOLUTE AUTO3.3NOFulton State Hospital Lymphocytes/100 WBC (Bld)28.5 %20.5 - 60.0 %SSM RehabH (RBC) [Entitic mass]28.8 pg26.7 - 34.0 pgSSM RehabHC (RBC) [Mass/Vol]34.2 g/dL29.9 - 35.2 g/dLSSM RehabV (RBC) [Entitic vol]84 fL81.0 - 99.0 fLHarry S. Truman Memorial Veterans' HospitalMONOCYTES ABSOLUTE AUTO0.6NOFulton State HospitalMonocytes/100 WBC (Bld)5.5 % 1.7 - 12.0 %[facility]' HospitalNEUTROPHILS ABSOLUTE AUTO7.4HighHarry S. Truman Memorial [facility]' Hospital Neutrophils/100 WBC (Bld)63.9 %43.0 - 75.0 %[facility]' HospitalPlatelet mean volume (Bld) [Entitic vol]10.9 fL9.5 - 13.5 fLHarry S. Truman Memorial Veterans' HospitalTB EO #0.1NOMS Healthcare TBH [id number] hospital springfield RBC4.38NOMS [facility] WBC11.5HighHarry S. Truman Memorial Veterans' HospitalCLINISYNCNMissouri Baptist Medical CenterHCG ( test) Ql (U)on 09-05-2024 Interpretation and review of laboratory resultsAbnormGeisinger Community Medical CenterPreg Test, UrPositiveNegativeHannibal Regional Hospital HealthcareUS OB TRANSVAGINALon 09-05-2024 OB TRANSVAGINALFINDINGS: [...] No LMP recorded.Urinalysis macro (dipstick) panel (U)on 66-89-6738Wbgqleqan, UA NegativeNegative - 4(70) +++ mg/dLNOMS HealthcareBlood, UANegativeNegative - 50 John/mcLNOHI HealthcareClarity, UAClearNOMS HealthcareColor, UAYellowNOMS HealthcareGlucose, UANegativeNegative - 2000(110) ++++ mg/dLNOHI Healthcare Interpretation and review of laboratory resultsNormalNOHI HealthcareKetones, UA NegativeNegative - 160(16) ++++ mg/dLKANE COUNTY HUMAN RESOURCE SSD HealthcareLeukocytes, UANegative Negative - 500+++ Anderson/mcLNOHI HealthcareNitrite, UANegativeNegative - Positive NOMS HealthcarepH, UA65 - 9NOMS HealthcareProtein, UANegativeNegative - 2000(20) ++++ mg/dLNOHI HealthcareSpec Grav, UA1.021 - 1.03NOMS HealthcareUrobilinogen, UA1.00.2 - 12 mg/dLNOMS HealthcareNOMS HealthcarePOCT NURSING URINE MACROSCOPIC UAon 23-23-9534CDJZUJTMI NURNegativeNormalNegProvidence Hospital Comment on above:Performed By: #### NUM #### [facility] ([facility]) [address] [place] [address] VIRBLOOD/HGB NURTraceAbnormalNegProvidence HospitalComment on above:Performed By: #### NUM #### [facility] ([facility]) [address] [place] [address] VIRGLUCOSE NURNegativeNoatrium health huntersvilleNegProvidence Hospital Comment on above:Performed By: #### NUM #### [facility] ([address] [place] [address] VIRKETONES NURNegativeNormalNegativeMartins Ferry Hospital Comment on above:Performed By: #### NUM #### [facility] ([address] [place] [address] VIRLEUKOCYTE ESTERASE NURNegativeNormalNegativeMartins Ferry HospitalComment on above:Performed By: #### NUM #### [facility] ([address] [address] VIRNITRITE NURNegativeNormalNegativeMartins Ferry Hospital Comment on above:Performed By: #### NUM #### [facility] ([address] [address] VIRPH NUR6.1Tjfspg1.0, 6.0, 6.5, 7.0, 7.5, 8.0, 8.5, 5.5 [facility] Ferry HospitalComment on above:Performed By: #### NUM #### [facility] ([address] [address] VIRPROTEIN NURNegativeNoatrium health huntersvilleNegProvidence Hospital Comment on above:Performed By: #### NUM #### [facility] ([address] [place] [address] VIRSPECIFIC GRAVITY ROX>=1.937Nxynhrjl6.010, 1.015, 1.020, 1.025Martins Ferry HospitalComment on above:Performed By: #### NUM #### [facility] ([address] [address] VIRUROBILINOGEN NUR0.2 E.U./dLNoFlower Hospital Comment on above:Performed By: #### NUM #### [facility] ([address] [address] VIRPOCT , URINE (NUCG)on 41-00-9146Vntz HCG ( test) Ql (U)PositiveAbnormalNegative, IndeterminateProMedica Hardinsburg HospitalComment on above:Performed By: #### NUCG #### [facility] ([facility]) [address] [place] [address] VIRTBH PREG QUANT HCGon 21-45-6291OCA SPIOERPDBEHX05764gVT/mL NOMS HealthcareComment on above:5-50 0.2-1 WEEK 50-500 1-2 WEEKS 100-5,000 2-3 WEEKS 500-10,000 3-4 WEEKS 1,000-50,000 4-5 WEEKS 10,000-100,000 5-6 WEEKS 15,000-200,000 6-8 WEEKS 10,000-100,000 2-3 MONTHS CLINISYNCNOFulton State HospitalTB PREG QUANT HCGon 02-95-9803SOT RGQMMBPBBAIH02961 mIU/mLNOMS HealthcareComment on above:5-50 0.2-1 WEEK 50-500 1-2 WEEKS 100-5,000 2-3 WEEKS 500-10,000 3-4 WEEKS 1,000-50,000 4-5 WEEKS 10,000-100,000 5-6 WEEKS 15,000-200,000 6-8 WEEKS 10,000-100,000 2-3 MONTHS CLINISYNCNOHI HealthcareIUD Removalon 75-19-9219Aqyad BoresNARCISO 03/27/2024 12:35 PM IUD Removal Date/Time: 03/26/2024 1:59 PM Performed by: Ha Baker DO Authorized by: Ha Baker DO Consent: Consent obtained: Written Consent given by: Patient Procedure risks and benefits discussed: yes Patient questions answered: yes Patient agrees, verbalizes understanding, and wants to proceed: yes Educational handouts given: yes Instructions and paperwork completed: yes Surprise protocol: Patient states understanding of procedure being [...] the office for annual exam unless needed otherwiseSandhills Regional Medical CenterNo Panel InformationOrdered By: Amanda Victoria on 17-30-1790XKQEJ Antigen (POC)[facility] HospitalQuick Strep (POC) [facility] HospitalXR chest 2V*on 20-47-0061GC chest 2V*[facility] [place] [address] XRay Report Signed Patient: Brittnee Smith MR#: [id number] 11 : 1995 Acct:[id number] Age/Sex: 28 / F ADM Date: 11/20/23 [facility]: Type[facility] Attending Dr: Amanda Victoria APRN Copies to: [...] Anda Jr., D.OMelisa11/20/2023 2:04 PM Dictation Location: [place] [address] Transcribed By: [facility] 11/20/23 1404 Dictated By: Shlomo De Anda Jr, DO 11/20/23 140 Signed By: 11/20/23 140[facility] Physician GroupLaboratory - Chemistry and Chemistry - challengeon 56-41-7774Ikptqvzys Ql (U)[facility] HospitalGlucose (U) [Mass/Vol][facility] Ketones Ql (U)NegativeGalion Community HospitalpH (U)7.0 [pH]Regional Medical Centerpecific gravity (U) [Rel density]1.030[facility] Community HospitalUrobilinogen (U) [Mass/Vol]0.2 mg/dLGalion Community HospitalLaboratory - Specimen informationon 27-47-5626Mtxjgdabhd (U)cloudy [facility] HospitalColor (U)yellowGalion Community HospitalLaboratory - Urinalysison 88-66-7929Uqqjygyjy esterase Test strip Ql (U) smallGalion Community HospitalNitrite Ql (U)PositiveGalion Community HospitalProtein Ql (U)100[facility] HospitalNo Panel Informationon 61-03-7772Qbjhy Occult BloodlargeGalion Community Hospital Urine Cultureon 65-88-4345Gjaktzpc identified Cx Nom (U)ORGANISM: Escherichia coli (O:ESCCOL) [place] Count >100,000 Aerobic MEENA Charge (NMIC56) SUSCEPTIBILITY [...] RESISTANT TO ALL B-LACTAM DRUGS. PERFORMED BY: [place] [id number] PATHOLOGIST LINE TECHNICIAN ROXANNE DIETRICH M.D.NormalOrlando Health Dr. P. Phillips Hospital Physician GroupComment on above:Performed By: #### CUU #### [facility] [address] [place] [address] USAUrine culture routineOrdered By: Diana Altman on 12-96-0457Heynyaii identified Cx Nom (U)Escherichia coliAbnormalGalion Community HospitalNo Panel InformationOrdered By: Linda Swanson on 94-45-8738PIFXK/Influenza Antigen (POC)[facility] COVID/FLU/RSV RT-PCRon 62-23-2160PSWH-CoV-2 (COVID-19) RNA NICHOLE+probe Ql (Unsp spec)NegativeWashington [employer] Other COVID/FLU/RSV RT-PCRNegativeWashington [employer] Other xr ankle LT min 3V*on 39-96-0560MV ankle LT min 3V* [facility] [employer] Other xr ankle LT min 3V*[facility] [employer] Other XR ankle LT min 3V*[address] [place] [address] [employer] Other xr ankle LT min 3V*[place] [id number] [employer] Other xr ankle LT min 3V*XRay ReportWashington [employer] Other xr ankle LT min 3V*SignedWashington [employer] Other xr ankle LT min 3V*Patient: Brittnee Smith MR#: [id number] [employer] Other XR ankle LT min 3V*11[place] [employer] Other xr ankle LT min 3V*: 1995 Acct:[id number] [employer] Other xr ankle LT min 3V*Age/Sex: 27 / F ADM Date: 12/13/22 [employer] Other xr ankle LT min 3V*Loc: XDUCLY Room: Type: [facility] [employer] Other xr ankle LT min 3V*Attending Dr: Linda Swanson [facility] [employer] Other xr ankle LT min 3V*Copies to: Linda Swanson [facility] [employer] Other xr ankle LT min 3V*Ordering Provider: Linda Swanson [facility] GR[facility] MEDICAL CENTERCrocus Technology Other xr ankle LT min 3V*Date of Service: 12/13/22Christian HospitalCreationFlow Other xr ankle LT min 3V* XR/XR ankle LT min 3V*: T14.90XAWashington App[employer] Other xr ankle LT min 3V*LEFT ANKLE - 3 viewsWashington [employer] Other xr ankle LT min 3V*CLINICAL DATA: Patient fell down stairs injuring left ankle today. Generalized pain and swelling.[employer] Other xr ankle LT min 3V*COMPARISON: [facility] [employer] Other xr ankle LT min 3V*AP, lateral and oblique views were obtained. There is no evidence of fracture or dislocation. [facility] Community HospitalCrocus Technology Other xr ankle LT min 3V*talar dome is intact. A tiny plantar calcaneal spur is present. There is mild diffuse soft tissueWashington [employer] Other XR ankle LT min 3V*swelling, greater anteriorly.[employer] Other XR ankle LT min 3V* XR/XR ankle LT min 3V*[employer] Other XR ankle LT min 3V*IMPRESSION:[employer] Other XR ankle LT min 3V*NO ACUTE BONY INJURY.[employer] Other XR ankle LT min 3V*Impression dictated by: Brandy Shields M.D.12/13/2022 9:49 AMNsoutheast missouri community treatment center [employer] Other XR ankle LT min 3V*Dictation Location: [place] [address] [employer] Other XR ankle LT min 3V*Transcribed By: [facility] 12/13/22 Critical access hospital [employer] Other XR ankle LT min 3V*Dictated By: Brandy Shields MD 12/13/[address] [place] [address] [employer] Other XR ankle LT min 3V*Signed By:[employer] Other XR ankle LT min 3V*12/13/22 Critical access hospitalLSA Sports Other XR ankle LT min 3V*[facility] [place] [address] [place] [address] XRay Report Signed Patient: Brittnee Smith MR#: [id number] [birth year] : 1995 Acct:[id number] Age/Sex: 27 / F ADM Date: 12/13/22 Loc: XDUCLY Room: Type: [facility] Attending Dr: Linda Swanson [...] Brandy Shields M.D.12/13/2022 9:49 AM Dictation Location: [place] [address] Transcribed By: [facility] 12/13/2249 Dictated By: Brandy Shields MD 12/13/2247 Signed By: 12/13/2249[facility] Physician GroupAFP MATERNAL FOR SPINA BIFIDAon 96-02-5506MHG MoM0.73Wadsworth-Rittman HospitalComment on above:Result Comment: This is a corrected report. The previously reported result was: AFP MoM See interpretation. 06/29/2022erformed By: #### AFPMAT #### [facility] [address] [place] [address] [address] Cathleen Miner Value35.4 ng/mLNRegency Hospital Cleveland EastComment on above: Performed By: #### AFPMAT #### [facility] [address] [place] [address] [address] Cathleen Miner, Serum for Spina BifidaCoWyandot Memorial Hospital Comment on above:Result Comment: The MOM and risk factors of this report have been modified based on new information supplied to us by the client or their designated branch customer service representative. The Weight was changed from Not provided. to 222. This is a corrected report. The previously reported result was: Results Report 06/29/2022erformed By: #### AFPMAT #### [facility] [address] [place] [address] [address] Cathleen HuertaCleveland Clinic Medina HospitalComuniversity of michigan health–west on above:Result Comment: Sameera Hollingsworth, Ph.D., [facility] Director . References: Available Upon Request. . Multiples Of Median Cutoffs For AFP Elevations Wolfe 2.5 Black 2.8 IDD 2.0 Twins 4.5 Abbreviation Definitions IDD - Insulin Dep Diabetes OSBR - Open Spina Bifida Risk . For further inquiries contact [employer] [facility] at [phone]. . This test was developed and its performance characteristics determined by [employer]. It has not been cleared or approved by the Food and Drug Administration.Performed By: #### AFPMAT #### [facility] [address] [place] [address] Dr. Cathleen Dailey Age Collection Date20.4 [facility] Comment on above:Performed By: #### AFPMAT #### [facility] [address] [place] [address] Dr. Cathleen GodwinGestat, Age Based onUltrasSelect Medical Specialty Hospital - YoungstownComment on above:Result Comment: 20.4 on 06/27/2022 Recalculations are not recommended when gestational dating by LMP and ultrasound are within 10 days.Performed By: #### AFPMAT #### [facility] [address] [place] [address] Dr. Cathleen Navarrete Dep DiabetesNoNRegency Hospital Cleveland EastComment on above:Performed By: #### AFPMAT #### [facility] [address] [place] [address] Dr. Cathleen GodwinInterpretationComSumma Health Wadsworth - Rittman Medical CenterComment on above: Result Comment: Interpretation: [...] Customer Services to discuss available options. The [place] [employer] [place] [employer] recommends amniocentesis [...] new clinical information.Performed By: #### AFPMAT #### [facility] [address] [place] [address] Dr. Cathleen Batista Age at EDD[age] yrUniversity Hospitals Health System on above:Performed By: #### AFPMAT #### [facility] [address] [place] [address] Dr. Cathleen Bernal GestationOhioHealth Pickerington Methodist HospitalComment on above: Performed By: #### AFPMAT #### [facility] [address] [place] [address] Dr. Cathleen AbbottBR Risk 1 [id number] Hospitals Health System on above: Result Comment: This is a corrected report. The previously reported result was: OSBR Risk 1 IN See interpretation. 06/29/2022erformed By: #### AFPMAT #### [facility] [address] [place] [address] Dr. Cathleen Bhatt.W[facility]sworth-Rittman HospitalComment on above:Performed By: #### AFPMAT #### [facility] [address] [place] [address] Dr. Cathleen NewbyucasiGood Samaritan HospitalComment on above: Performed By: #### AFPMAT #### [facility] [address] [place] [address] Dr. Cathleen GodwinTest Results:NegativeNoAshtabula County Medical Center on above: Result Comment: This is a corrected report. The previously reported result was: Test Results: See interpretation. 3Performed By: #### AFPMAT #### [facility] [address] [place] [address] Dr. Cathleen Maxwell B SURFACE ANTIGEN SCREENon 75-49-8861MFzCa ScreenNegative NormalNegativeThe [facility] on above:Performed By: #### HBSANS #### [facility] [address] [place] [address] Dr. Cathleen HearnTIS C VIRUS AB W/ REFLEX QUANTon 07-33-9619IVZ AB Non-ReactiveNormalNon ReactiveThe [facility] HospitalComuniversity of michigan health–west on above:Performed By: #### HCVPCRR #### [place] [address] [address] Cathleen GodwinInterpretation:CommentNoAshtabula County Medical Center on above:Result Comment: Not infected with HCV unless early or acute infection is suspected (which may be delayed in an immunocompromised individual), or other evidence exists to indicate HCV infection.Performed By: #### HCVPCRR #### [facility] [address] [place] [address] Dr. Cathleen Ulrich 1 AND 2 WITH REFLEXon 10-77-0998GDY Screen 4th Generation wRfxNon-ReactiveNormalNon ReactiveThe [facility] on above:Result Comment: HIV Negative HIV-1/HIV-2 antibodies and HIV-1 p24 antigen were NOT detected. There is no laboratory evidence of HIV infection.Performed By: #### HIV12 #### [facility] [address] [place] [address] Dr. Cathleen GodwinRPPerry QUANTon 03-92-0017Gywks Plasma Reagin, QuantNon-Reactive NormalNonRea<1:1The [facility] on above:Result Comment: Please Note: This test does not meet current guidelines for screening and diagnosis of syphilis. This test is intended for following treatment response in patients being treated for syphilis infection. To screen for syphilis infection, a reflex cascade that includes both RPR and a treponema-specific assay should be utilized, such as Treponema pallidum (Syphilis) Screening [place] (095868) or Rapid Plasma Reagin (RPR) Test With Reflex to Quantitative RPR and Confirmatory Treponema pallidum Antibodies (435860).Performed By: #### RPRQ #### [facility] [address] [place] [address] [address] Cathleen Ames AB IGGon 81-56-1701Kezvrus Antibodies, IgG1.39 index NormalImmune >0.99The [facility]ula [facility] HospitalComment on above:Result Comment: Non- immune <0.90 Equivocal 0.90 - 0.99 Immune >0.99Performed By: #### RUBIGG ####[facility] [address] [place] [address]Dr. Cathleen Gibson AUTO DIFFon 68-91-4433TFUD # 0.0 103/ulNormal0.0-0.1The [facility] HospitalComment on above:Performed By: #### CBC #### [facility] [address] [place] [address] Dr. Cathleen Larsonsophils/100 WBC (Bld)0.3 %Normal0.2-2.0[facility] Comment on above:Performed By: #### CBC #### [facility] [address] [place] [address] Dr. Cathleen Starkey #0.2 103/ulNormal0.0-0.7The [facility] HospitalComment on above: Performed By: #### CBC #### [facility] [address] [place] [address] Dr. Cathleen Colemanosinophils/100 WBC (Bld)1.3 %Normal0.9-7.0The [facility] Comment on above:Performed By: #### CBC #### [facility] [address] [place] [address] Dr. Cathleen Colemanrythrocyte distribution width (RBC) [Ratio]13.2 %Optgpa09.0-15.0 The [facility] HospitalComment on above:Performed By: #### CBC #### [facility] [address] [place] [address] [address] Cathleen GodwinHematocrit (Bld) [Volume fraction]32.9 %Critically low36.0-48.0 The [facility] HospitalComment on above:Performed By: #### CBC #### [facility] [address] [place] [address] [address] Cathleen GodwinHemoglobin (Bld) [Mass/Vol]11.3 g/dLCritically low12.0-16.0The [facility] HospitalComment on above:Performed By: #### CBC #### [facility] [address] [place] [address] [address] Cathleen GodwinIG #0.18 10e3/ulCritically high0.00-0.03The [facility] Comment on above:Performed By: #### CBC #### [facility] [address] [place] [address] Dr. Cathleen Larry %1.6 %Critically high0.0-0.5The [facility] HospitalComment on above:Performed By: #### CBC #### [facility] [address] [place] [address] [address] Cathleen Johns #2.6 103/ulNormal1.2-3.8The [facility] HospitalComment on above:Performed By: #### CBC #### [facility] [address] [place] [address] [address] Cathleen Tranmphocytes/100 WBC (Bld)22.5 %Kelbvl17.5-60.0The [facility] Mary Hospitalment on above:Performed By: #### CBC #### [facility] [address] [place] [address] [address] Cathleen GodwinMANUAL DIFF REQNONormalThe [facility] HospitalComment on above: Performed By: #### CBC #### [facility] [address] [place] [address] [address] Cathleen Rao (RBC) [Entitic mass]29.4 hlDevxrm16.7-34.0The [facility] HospitalComment on above:Performed By: #### CBC #### [facility] [address] [place] [address] [address] Cathleen WilliamHC (RBC) [Mass/Vol]34.3 g/pEHvardi93.9-35.2The [facility] HospitalComment on above:Performed By: #### CBC #### [facility] [address] [place] [address] Dr. Cathleen WilliamV (RBC) [Entitic vol]85.5 xRXqfmgz99.0-99.0The [facility] HospitalComment on above:Performed By: #### CBC #### [facility] [address] [place] [address] Dr. Cathleen Maria #0.5 103/ulNormal0.3-0.8The [facility] HospitalComment on above:Performed By: #### CBC #### [facility] [address] [place] [address] Dr. Cathleen Lubinocytes/100 WBC (Bld)4.5 %Normal1.7-12.0The [facility] Comment on above:Performed By: #### CBC #### [facility] [address] [place] [address] Dr. Cathleen Tenorio #8.1 103/ulCritically high1.4-6.5The [facility] Comment on above:Performed By: #### CBC #### [facility] [address] [place] [address] Dr. Cathleen Garayutrophils/100 WBC (Bld)69.8 %Xlgqli19.0-75.0The [facility] HospitalComment on above:Performed By: #### CBC #### [facility] [address] [place] [address] Dr. Cathleen Flanaganlet mean volume (Bld) [Entitic vol]10.8 fLNormal9.5-13.5The [facility] HospitalComment on above:Performed By: #### CBC #### [facility] [address] [place] [address] Dr. Cathleen GodwinPLT223 103/rpNyuxtr363-157Pac [facility] HospitalComment on above: Performed By: #### CBC #### [facility] [address] [place] [address] [address] Cathleen GodwinRBC3.85 106/ulCritically low4.20-5.40The [facility] on above:Performed By: #### CBC #### [facility] [address] [place] [address] [address] Cathleen GodwinWBC11.5 103/ulCritically high4.0-11.0The [facility] on above:Performed By: #### CBC #### [facility] [address] [place] [address] [address] Cathleen GodwinCULTURE URINEon 35-60-9041BSTUFAF URINECulture Observations: LIGHT GROWTH OF MIXED GENITAL KASIA. NO POTENTIAL PATHOGENS SEEN.NormalThe [facility] on above:Performed By: #### URCX ####[facility] [address] [place] [address]Dr. Cathleen Godwin GLYCOHEMOGLOBIN A1Con 17-35-1950BFU RECOMMENDATIONSEE BELOWWadsworth-Rittman HospitalComuniversity of michigan health–west on above:Result Comment: ADA RECOMMENDED LIMIT 4.0 - 6.0 ADA THERAPEUTIC TARGET < 7.0 ACTION SUGGESTED > 7.0Performed By: #### A1C #### [facility] [address] [place] [address] Dr. Cathleen GodwinGlucose [Mass/Vol]114 mg/dLUniversity Hospitals Health System on above:Performed By: #### A1C #### [facility] [address] [place] [address] Dr. Cathleen GodwinHbA1c (Bld) [Mass fraction]5.6 %Normal4.5-6.2The [facility] on above:Performed By: #### A1C #### [facility] [address] [place] [address] Dr. Cathleen GodwinTSHon 21-70-9261EXF97.370 uIU/mLCritically high0.358-3.740The [facility] on above:Performed By: #### TSH #### [facility] [address] [place] [address] [address] Cathleen GodwinTYPE AND SCREENon 14-17-5672ODSE AND SCREENNegativeWadsworth-Rittman HospitalComment on above:Performed By: #### TNS #### [facility] [address] [place] [address] Dr. Cathleen Hughes PREG ANATOMY SINGLEon 61-21-7781BT PREG ANATOMY SINGLE EXAMINATION: US PREG ANATOMY [...] Electronically authenticated by: CHRISTIANNE ULLOA Date: 2022-06-27 15:[address] [place] [address] Vital Signs Date TimeVital SignValuePerforming YvyvjkmrwDlkieftr38-54-2268 08:03-0400Body uyhqgn866.6 cmKenji Plascencia MD Work Phone: [facility] NaventSdckos35-08-4305 08:03-0400Body mass index (BMI) [Ratio]40.39 kg/v8IevhsaKenji Plascencia MD Work Phone: 1(170)[address] [place], [place] [address]2010-17-2025 08:03-0400Body .78 kgKenji Plascencia MD Work Phone: [phone] [place], [place] [address]2010-17-2025 08:03-0400Diastolic blood robxigaw75 mm[Hg]Kenji Plascencia MD Work Phone: [phone] [place], [place] [address]2010-17-2025 08:03-0400Heart rate 83 /minKenji Plascencia MD Work Phone: [phone] [place], [place] [address]2010-17-2025 08:03-0400Systolic blood mpvouriq950 mm[Hg]Kenji Plascencia MD Work Phone: [phone] [place], [place] [address]2010-16-2025 09:24-0400Body mass index (BMI) [Ratio]41.81 kg/c5Tzzbk Samuel DO Work Phone: [phone] [place], [place] 9892510-16-2025 09:24-0400Body coyhsy227.05 kgCorey Samuel DO Work Phone: [phone] [place], [place] 9892510-16-2025 09:24-0400Diastolic blood jchxujua21 mm[Hg]Ha Samuel DO Work Phone: 1([phone] [place], [place] 9892510-16-2025 09:24-0400Systolic blood qebuhzrg673 mm[Hg]Ha Samuel DO Work Phone: [phone] [place], [place] [address]892509-11-2025 11:30-0400Body mass index (BMI) [Ratio]40.64 kg/u1XsmkbfnyCaryn Lopez NP Work Phone: [phone])[address] [place] [address]-11-2025 11:30-0400Body witivw632.06 kgCaryn Lopez LAY OUT MACHINE OPERATOR Work Phone: [phone] [place] [address]-11-2025 11:30-0400Diastolic blood jyqmhgbg57 mm[Hg]Caryn Lopez NP Work Phone: [facility] HospitalEgxygwiivq40-03-0948 11:30-0400Systolic blood wegewolp206 mm[Hg]Caryn Lopez KALIE Work Phone: [facility] HospitalFwopudcvvm74-53-0853 14:04-0400Body mass index (BMI) [Ratio]40.35 kg/x9Uxlcs Samuel DO Work Phone: [facility] HospitalZscvzjglwv83-44-4942 14:04-0400Body htyrlt029.33 kgCorey Samuel DO Work Phone: [phone] [place], [place] [address]Ounyspxemd00-87-3592 14:04-0400Diastolic blood ziqzrzcn90 mm[Hg]Ha Samuel DO Work Phone: [facility] HospitalRkffjipwvc96-15-8959 14:04-0400Systolic blood zldbvnpu176 mm[Hg]Hajona Nowako DO Work Phone: [facility] HospitalQczkrwutbw56-30-9841 10:07-0400Body cm Allen Carr MD Work Phone: [phone] [place], [place] [address]Avdbqexryh99-60-6533 10:07-0400Body mass index (BMI) [Ratio]39.86 kg/n4BsuwmAllen Carr MD Work Phone: [phone] HospitalHnakypjiob99-22-3806 10:07-0400Body lavtch979.06 kgAllen Carr MD Work Phone: [facility] HospitalEbtoazqbyi92-03-6377 10:07-0400Diastolic blood uhjczhwd86 mm[Hg]Allen Carr MD Work Phone: 1(085)134-[address] [place], [place] [address]Zdmqnznizx89-40-1571 10:07-0400Heart rate77 /min Allen Carr MD Work Phone: [facility] HospitalLhgzzwqsml47-39-1717 10:07-0400Respiratory rate16 /minAllen Carr MD Work Phone: [facility] HospitalPxlvctqxpo29-89-4545 10:07-2672JsS9% (BldA) [Mass fraction]99 %Allen Carr MD Work Phone: [address] [place], [place] [address]Yadvbbowch55-78-2192 10:07-0400Systolic blood zpmouqvc504 mm[Hg]Allen Carr MD Work Phone: [phone] [place], [place] [address]Wasvqkqxka68-24-9067 14:05-0400Body mass index (BMI) [Ratio]39.2 kg/e8MasclPeconic [facility]07-10-2025 14:05-0400Body weight 103.6 kgPeconic [facility]06-13-2025 11:20-0400Body ufirij429.6 Sriram Carr MD Work Phone: [phone]06-13-2025 11:20-0400Body mass index (BMI) [Ratio]40.17 kg/q2EaruyAllen Carr MD Work Phone: [phone])739-[address] [place], [place] [address]Itwvzihlbc51-75-5274 11:20-0400Body fanrlb368.14 kgAllen Carr MD Work Phone: [phone]06-13-2025 11:20-0400Heart rate93 /min Allen Carr MD Work Phone: [phone] [place], [place] [address]Lafvsmdopd11-96-0786 11:20-0400Respiratory rate16 /minAllen Carr MD Work Phone: [phone] [place], [place] [address]Agqwllpwrl54-82-6464 11:20-7084SoI8% (BldA) [Mass fraction]99 %Allen Carr MD Work Phone: [phone] [place], [place] [address]Dlwwlqxngh45-86-6236 13:29-0500Body mass index (BMI) [Ratio]40.94 kg/r4Egpnc Samuel DO Work Phone: [facility] HospitalUdtqheglyz82-64-3834 13:29-0500Body ooxbhs514.83 kgCorey Samuel DO Work Phone: [facility] HospitalGfzxjygjoq82-24-2311 13:29-0500Diastolic blood misfabsf58 mm[Hg]Ha Samuel DO Work Phone: [facility] HospitalPtylnwzemq84-94-0610 13:29-0500Systolic blood ndnvepkv052 mm[Hg]Ha Baker DO Work Phone: [facility] HospitalXiwzrlfbwt87-59-2963 13:08-0400Body .56 cmAPRJarek Altman Work Phone: 1([phone] [place], [place] 9459009-23-2024 13:08-0400 Body mass index (BMI) [Ratio]38.7 kg/m2JUICE Ortiz Anupama Work Phone: [phone]09-23-2024 13:08-0400 Body ulfrtautqkt29.9 [degF]JUICE Ortiz Anupama Work Phone: [phone])[address] [place], [place] [address]709-23-2024 13:08-0400 Body vcyxuw853.51 kgJUICE Altman Work Phone: [phone])[address]09-23-2024 13:08-0400 Diastolic blood oqiuewxj91 mm[Hg]JUICE Ortiz Anupama Work Phone: [phone])[address]09-23-2024 13:08-0400 Heart rate80 /minAPRJarek Ortiz Anupama Work Phone: [phone])[address]09-23-2024 13:08-0400 SaO2% (BldA) [Mass fraction]98 %JUICE Ortiz Anupama Work Phone: [phone]09-23-2024 13:08-0400 Systolic blood mm[Hg]JUICE Ortiz Anupama Work Phone: [phone])[address]08-13-2024 17:54-0400 Body ycaceg518.56 [facility] 17:54-0400Body mass index (BMI) [Ratio]37.6 kg/u5WhbpmpavdGalion Community Hospital08-13-2024 17:54-0400Body indeocxuwwo21.2 [degF][facility]08-13-2024 17:54-0400Body jvhtur31.56 kgGal[facility]08-13-2024 17:54-0400Diastolic blood kiinvzuo69 mm[Hg][facility] 10-10-2023 17:54-0400Heart rate90 /[facility] 10-10-2023 17:54-0400Respiratory rate18 /[facility] 10-10-2023 17:54-7215BmI6% (BldA) [Mass fraction]96 %[facility]08-13-2024 17:54-0400Systolic blood ugkdvcja111 mm[Hg][facility]02-20-2024 11:10-0500Body nsikoj378.56 cmGal[facility]02-20-2024 11:10-0500Body mass index (BMI) [Ratio]38.6 kg/m2 [facility]02-20-2024 11:10-0500Body grybemndbai77.2 [degF][facility]02-20-2024 11:10-0500Body .05 kg [facility]02-20-2024 11:10-0500Heart rate95 /[facility]02-20-2024 11:10-0500Respiratory rate16 /[facility]02-20-2024 11:10-6690SfO2% (BldA) [Mass fraction]99 % [facility]02-08-2024 09:05-0500Body .02 cmAtemo Swanson Other [employer] Other 02-08-2024 09:05-0500Body mass index (BMI) [Ratio] 38.97 kg/v0UtpwmLinda Swanson Other [employer] Other 02-08-2024 09:05-0500Body wimkifdeyse74.1 [degF]Linda Swanson Other [employer] Other 02-08-2024 09:05-0500Body aanxxo83.79 kgLinda Swanson Other [place] [employer] Other 02-08-2024 09:05-0500Respiratory rate18 /minLisandroer Sky Other [employer] [place] [employer] Other 02-08-2024 09:05-5859LqC4% (BldA) [Mass fraction]99 % Linda Sky Other [place] [employer] Other 12-04-2023 15:40-0500Body qoqcui467.02 cmPamela Mary Other [facility]12-04-2023 15:40-0500 Body mass index (BMI) [Ratio]39.78 kg/u0Upwmxf Mary Other [place] [employer] Other 12-04-2023 15:40-0500Body apkfiruenis71 [degF]Addie Mary Other [place] [employer] Other 12-04-2023 15:40-0500Body rtwyzd279.88 kgPager Hernandez Other [place] [employer] Other 12-04-2023 15:40-0500Body .87 kg[facility]12-04-2023 15:40-0500Diastolic blood nyxxkurg95 mm[Hg] Addie Mary Other [facility]12-04-2023 15:40-0500 Respiratory rate18 /minPager Hernandez Other [place] [employer] Other 12-04-2023 15:40-6190LwT9% (BldA) [Mass fraction]98 % Addie Hernandez Other [place] [employer] Other 12-04-2023 15:40-0500Systolic blood ikaxjvin108 mm[Hg] Addie Hernandez Other [facility]10-17-2023 09:05-0400 Body iupdkk245.02 Markos Swanson Other [employer] Other 10-17-2023 09:05-0400Body mass index (BMI) [Ratio] 38.97 kg/t4DbyyeLinda Swanson Other [employer] Other 10-17-2023 09:05-0400Body gukwwryerwg63.2 [degF]Linda Swanson Other [employer] Other 10-17-2023 09:05-0400Body ckryby14.79 kgLinda Swanson Other [employer] Other 10-17-2023 09:05-0400Diastolic blood fsqpaesy86 mm[Hg] Linda Swanson Other [employer] Other 10-17-2023 09:05-0400Respiratory rate18 /minLinda Swanson Other [employer] Other 10-17-2023 09:05-8514DeK2% (BldA) [Mass fraction]98 % Linda Swanson Other [employer] Other 10-17-2023 09:05-0400Systolic blood ntuhvdbe674 mm[Hg] Linda Swanson Other [employer] Other 06-19-2023 12:00-0400Body stjasf558.02 Chiquita Hernandez Other [employer] Other 06-19-2023 12:00-0400Body mass index (BMI) [Ratio] 40.21 kg/i9TpttcsAddie Hernandez Other [employer] Other 06-19-2023 12:00-0400Body lrhydjzdbvl67.7 [degF]Addie Hernandez Other [employer] Other 06-19-2023 12:00-0400Body .97 kgAddie Hernandez Other [employer] Other 06-19-2023 12:00-0400Diastolic blood yacbklto72 mm[Hg] Addie Hernandez Other [employer] Other 06-19-2023 12:00-0400Respiratory rate18 /minAddie Hernandez Other [employer] Other 06-19-2023 12:00-4995QzI6% (BldA) [Mass fraction]98 % Addie Hernandez Other [employer] Other 06-19-2023 12:00-0400Systolic blood sluwujfc066 mm[Hg] Addie Hernandez Other [employer] Other 05-05-2023 14:08-0400Body ngliws773.6992 kgDR HA BAKER .[facility] HospitalComment on above:Result Comment: This is a corrected report. The previously reported result was: Weight 06/29/2022 Not provided. .Performed By: #### AFPMAT #### [facility] [address] [place] [address] Dr. 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)Start: 12-13-2024 End: 83-55-3984Aukgju Virgil Mcgrath RNMaternal- Medicine at [facility] CenterComment on above:Hypothyroidism affecting in second trimester (Primary Dx)Start: 12-12-2024 End: 37-33-0785Kjuwvdw encounter procedureCorejona Samuel DO Work Phone: [facility] [place] OBGYNComment on above:Colposcopy needed after cervical smear; Second trimester ([facility]); 22 weeks gestation of ([facility])Start: 12-12-2024 End: 01-32-9864uulrdzwyqsGUCYM FAZIONot AvailableStart: 11-13-2024 End: 82-19-3917Ysivw abstractYosvany Plascencia MD Work Phone: [phone]-Eohua Medicine at [facility] Start: 11-13-2024 End: 70-28-7897Biwqwdxtl encounterCaryn Lopez NP Work Phone: [facility] OBGYNStart: 11-07-2024 End: 30-34-3957Ajhyob flowsheetCaryn Lopez LAY OUT MACHINE OPERATOR Work Phone: [facility] OBGYNStart: 11-07-2024 End: 49-97-0195Vwrjmd flowsheetCaryn Lopez LAY OUT MACHINE OPERATOR Work Phone: [facility] [place] OBGYNStart: 11-07-2024 End: 73-38-1410Yzbyfzjth Result EncounterCaryn Lopez NP Work Phone: NOMS External Department UnsolicitedStart: 11-07-2024 End: 73-62-0883Scubdciz Result EncounterCaryn Lopez NP Work Phone: no External Department UnsolicitedStart: 11-07-2024 End: 41-42-1264Hlrbdy outpatient visit 15 minutesCaryn Lopez NP Work Phone: no Timothy OBGYNComment on above:17 weeks gestation of ([facility]); Second trimester ([facility]); History of hyperthyroidism; Well woman exam with routine gynecological exam; Screening, , for anatomic survey ([facility]); Vaginal discharge; Exposure to STDStart: 11-07-2024 End: 22-59-0528Oxfxkim encounter procedureCaryn Lopez NP Work Phone: no HealthcareStart: 11-07-2024 End: 17-72-9754nvcvofggjoBOLTGXBD EBERLYNot AvailableStart: 10-23-2024 End: 58-05-3712Rwuymdxqj department patient visitNO PCP NO PCPProMedica Hardinsburg HospitalStart: 10-08-2024 End: 83-23-1740Tixupv flowsheetCorey Samuel DO Work Phone: [facility] [place] OBGYNStart: 10-08-2024 End: 03-13-7508Aygdrd flowsheetCorey Samuel DO Work Phone: [facility] [place] OBGYNStart: 10-08-2024 End: 84-40-7570Wjwzql outpatient visit 15 minutesCorey Samuel DO Work Phone: no Timothy OBGYNComment on above:13 weeks gestation of ([facility]); Second trimester ([facility]); Nausea and vomiting in ([facility]); History of hyperthyroidism; Constipation, unspecified constipation typeStart: 10-08-2024 End: 71-63-4048pbiouermdzZLYRJ FAZIONot AvailableStart: 10-04-2024 End: 18-49-6297Mptcdu flowsEstrella Carr MD Work Phone: noMS [place] EndocrinologyStart: 10-04-2024 End: 82-84-5174Jtchkh flowsheetAllen Carr MD Work Phone: noms [place] EndocrinologyStart: 10-04-2024 End: 67-90-9468Grxxwi outpatient visit 25 minutesAllen Carr MD Work Phone: noms [place] Endocrinology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 (Primary Dx); Vitamin D deficiency; Encounter for dietary consultation; Thyroid disease during , first trimester (HCC); Hypothyroidism, unspecified typeStart: 10-04-2024 End: 00-47-4909datlucdcmmRAJMB F SABBAGHNot AvailableStart: 10-03-2024 End: 75-69-5301Etezoqdse Result EncounterCorey Samuel DO Work Phone: noms External Department UnsolicitedStart: 10-03-2024 End: 52-56-1328Xoozdmpry Result EncounterCorey Samuel DO Work Phone: noms External Department UnsolicitedStart: 09-19-2024 End: 02-98-9648Hasuvpfvv Result EncounterCorey Samuel DO Work Phone: noms External Department UnsolicitedStart: 09-19-2024 End: 57-06-7749Yergvkmcr Result EncounterCorey Samuel DO Work Phone: noms External Department UnsolicitedStart: 09-06-2024 End: 71-94-5975Tvgcrcqsu Result EncounterCorey Samuel DO Work Phone: noms External Department UnsolicitedStart: 09-06-2024 End: 02-72-3544Vrhvqzsvl Result EncounterCorey Samuel DO Work Phone: noms External Department UnsolicitedStart: 09-05-2024 End: 65-46-1218Syljmm outpatient visit 5 minutesFamaurao Nurse Noms Bcp ObNOMS BCP OBComment on above:GA: 7r1hZtysh: 09-05-2024 End: 27-26-9038yxtqjmkpqdHWWIB FAZIONot AvailableStart: 09-01-2024 End: 54-99-4376Mugpdsbau department patient visitNO PCP NO PCPProMedica Hardinsburg HospitalStart: 08-21-2024 End: 28-65-5060Rpwcxxood Result EncounterCorey Samuel DO Work Phone: noms External Department UnsolicitedStart: 08-21-2024 End: 97-25-7779Ofehekuwo Result EncounterCorey Samuel DO Work Phone: noms External Department UnsolicitedStart: 08-19-2024 End: 07-90-6439Kniuujqba Result EncounterCorey Samuel DO Work Phone: noms External Department UnsolicitedStart: 08-19-2024 End: 54-58-5461Dqgvdfhty Result EncounterCorey Samuel DO Work Phone: noms External Department UnsolicitedStart: 08-09-2024 End: 10-29-5220Hycqqehenry Carr MD Work Phone: noms ENDOCRINOLOGYStart: 08-09-2024 End: 48-77-2269Fsoxilhenry Carr MD Work Phone: noms ENDOCRINOLOGYStart: 08-09-2024 End: 66-51-3026zmzudlcgkpDSKEF F SABBAGHNot AvailableStart: 08-09-2024 End: 48-30-4099Foyrta outpatient visit 25 minutesAllen Carr MD Work Phone: noms ENDOCRINOLOGYComment on above:Alfredo's disease (Primary Dx); Vitamin D deficiency; Encounter for dietary consultation; Class 3 severe obesity due to excess calories without serious comorbidity with body mass index (BMI) of 40.0 to 44.9 in adult (CMS-HCC); Thyroid disease during , first trimester (HCC); Hypothyroidism, unspecified typeStart: 14-56-9579Ugclvrd encounter statusAllen Carr MD Work Phone: noms HealthcareStart: 03-26-2024 End: 22-16-9142Cvbfvrx encounter procedureCorey Samuel DO Work Phone: [facility] OBComment on above:Encounter for removal of intrauterine contraceptive device (IUD)Start: 03-26-2024 End: 79-26-5678tqjkxhxavdJXUUV TERIONot AvailableStart: 11-20-2023 End: 52-22-0251Mmrnhvd encounter procedureJUICE Altman Work Phone: [facility] Work Phone: Start: 11-20-2023 End: 26-06-7441to[address]Wilson [address] [facility] Work Phone: Start: 11-20-2023 End: 10-88-8255nrsvhyilwbNOSSt. [facility] Work Phone: Start: 11-20-2023 End: 18-50-4229Bneyhkh encounter procedureJUICE Altman Work Phone: [facility] Work Phone: Start: 10-10-2023 End: 63-78-4968Jzxfwbcp ReferredJUICE Altman Work Phone: [facility] [place] Work Phone: Start: 10-10-2023 End: 49-25-6779yraqxoriddSmjiqu M [facility] Work Phone: Start: 10-10-2023 End: 64-78-4482Wchbwcx encounter procedureCatawba [facility] Work Phone: Start: 04-18-2023 End: 62-16-2878hvvkoflvhrJwcjjasurAdena [facility] Work Phone: Start: 04-18-2023 End: 64-63-6852Rafrkgb encounter procedureCatawba [facility] Work Phone: start: 04-06-2023 End: 06-44-5013zfzjivtsanZypuy Keller Other [employer] Other Start: 99-42-0981Zpquyg outpatient visit 25 minutes Linda GhulamlerFPG Urgent Care ClydeStart: 02-02-2023 End: 86-61-8240ryfmcpokwwRcggi Keller Other [employer] Other Start: 64-38-1734Icrxtfuuv encounterAmber GhulamlerFPG Urgent Care Mendota RoadStart: 01-30-2023 End: 56-44-9015zysxvqppzmRjqtlj Mary Other [employer] Other Start: 23-61-6572Hmqtlx outpatient visit 15 minutes Addie DydelbertFPG Urgent Care ClydeStart: 01-30-2023 End: 52-45-2548Coclhom encounter procedureFirrappahannock general hospital [facility] Work Phone: Start: 11-97-2473Zdzyry outpatient visit 15 minutes Linda SkyFPG Urgent Care ClydeStart: 12-13-2022 End: 84-92-7501Fkxjddz encounter procedureAPRN Linda Swanson Work Phone: [facility] Work Phone: Start: 12-13-2022 End: 90-00-9666mhdqxxadajKnqbi Michela SwansonOhiohealth [facility]in [facility] Work Phone: Start: 08-15-2022 End: 41-32-7657ruyezdxkbfCjpbyp Mary Other [employer] Other Start: 83-35-8392Zmufaa outpatient new 20 minutes Addie DymondFPG Urgent Care ClydeStart: 07-26-2022 End: 51-98-9973dwcjmwcrzxNG HA ASMUEL .Facility:D4Ultab: 06-27-2022 End: 12-93-1565nousixsjjrGU HA SAMUEL .Facility:D3Ynqkh: 06-27-2022 End: 27-81-5734weanolzdgrHU HA SAMUEL .Facility:J2Fjswo: 06-10-2020 End: 87-39-7924miaxlysvcxQjim Malina Work Phone: COVID Vaccine [place] Procedures DateProcedureProcedure DetailPerforming ClinicianStart: 22-70-4123LXMRWCIGTN Ha Samuel DO Work Phone: Start: 95-91-8778Wyyed dip stick/tablet rgnt non-auto w/o micrscpCorey Samuel DO Work Phone: Start: 02-50-7713JTWQBKTDF VAGINITIS (HTRX)Caryn Lopez NP Work Phone: Start: 79-27-8731Ylzat dip stick/tablet rgnt non-auto w/o micrscpCaryn Lopez LAY OUT MACHINE OPERATOR Work Phone: Start: 28-14-4354QNT,APTIMA HPV,AGE GDLNCaryn Lopez LAY OUT MACHINE OPERATOR Work Phone: Start: 31-85-4896Wtcqfklcgml observation [Identifier] in Cervix by Cyto Celeste Plascencia MD Work Phone: Start: 60-96-8305Akgun dip stick/tablet rgnt non-auto w/o micrscpCorey Samuel DO Work Phone: Start: 22-40-1325JOXGCWE TOLERANCE 3 HOURCorey Samuel DO Work Phone: Start: 93-05-4336VQB CBC WITH AUTO DIFFCorey Samuel DO Work Phone: Start: 40-98-5861YEA CBC WITH AUTO DIFFCorey Samuel DO Work Phone: Start: 12-76-1609Imdbn dip stick/tablet rgnt non-auto w/o micrscpCorey Samuel DO Work Phone: Start: 64-32-0244XGH PREG QUANT HCGCorey Samuel DO Work Phone: Start: 85-90-4973NMI PREG QUANT HCGCorey Samuel DO Work Phone: Start: 82-32-6229ZNI REMOVALCorey Samuel DO Work Phone: Start: 88-51-4466HCZXH Antigen (POC)JUICE Feldmanmichelle Altman Work Phone: Start: 78-32-4924Tapzy Strep (POC)BELT BACK OPERATOR Dianamichelle Altman Work Phone: Start: 60-01-4745Opoyw chest X-rayAPRJarek Altman Work Phone: Start: 34-02-7703Ivveo cultureAPRJarek Diana Anupama Work Phone: Start: 92-25-9252UUBWM/Influenza Antigen (POC)Start: 87-05-2941B-ray of left ankleAPRN Linda Swanson Work Phone: Plan of Treatment DateCare ActivityDetailAuthorStart: 41-71-6472Iyeorltuh for malignant neoplasm of cervixPap SmearProAvita Health System Ontario HospitalHaloband SystemStart: 44-69-2125Rfvlp BMI Screening Adult BMI ScreeningProCincinnati [facility]riners Hospital SystemStart: 63-40-0954Njlxkeo Screening Tobacco ScreeningProCincinnati Shriners Hospital SystemStart: 12-13-2025 End: 17-00-9270AX MFM with or without consultUS MFM with or without consult Imaging Routine Hypothyroidism affecting in second trimester Expected: 12/13/2025 (Approximate), Expires: 12/13/2025ProIndexT[employer]ca Work Phone: comment on above:Expected: 12/13/2025 (Approximate), Expires: 12/13/2025Start: 33-75-4529Fnics BMI ScreeningAdult BMI Screening [facility] SystemStart: 01-21-2025 End: 96-65-2332Gnghufb encounter yxxtfhzyz65/25/2025 2:15 PM EST Appointment [facility] - Ultrasound [address] [place] [address] IxeXlhyfv [facility] - UltrasoundStart: 01-09-2025 End: 98-31-8174Uwillvj encounter wzfurhcoh26/13/2025 10:50 AM EST Routine [facility] [address] [place] [address] Karla Matthews PA [address] [place] [address] SUNITA GONSALVEStart: 12-19-2024 End: 84-47-4130Mkihksh encounter zdhkvnxin26/23/2025 11:30 AM EDT Office Visit [facility] [address] [place] [address] Allen Carr MD [address] [place] [address] SUNITA Bhakta EndocrinologyStart: 12-13-2024 End: 26-39-3417Oxkigyf encounter ahdwzuanq04/17/2025 8:45 AM EDT Office Visit Maternal- Medicine at [facility] [address] [place] [address] Kenji Plascencia MD [address] [place] [address] [facility] Hospitaltart: 12-13-2024 End: 51-64-4513Vvhhwyy encounter oxwpdqheg35/17/2025 7:30 AM EDT Appointment [facility] - [facility] [address] [place], [place] [address] [phone] County Hospital US ImagingStart: 12-12-2024 End: 28-04-6474Dfzxjyg encounter kxqdsaipo26/16/2025 11:20 AM EDT Routine [facility] [address] [place] [address] Ha Baker, DO [address] [place] [address] N[facility]Palma [place] OBGYNStart: 12-12-2024 End: 57-37-5773Rtmhvuc encounter ikubuhsdh77/16/2025 9:30 AM EDT Procedure Visit [facility] [address] [place] [address] Ha Baker, DO [address] [place] [address] NOMPalma [place] OBGYNStart: 11-14-2024 End: 30-06-3754Zhdnhkv encounter cvloomsdn79/18/2025 11:20 AM EDT Office Visit [facility] [address] [place] [address] Allen Carr MD [address] [place] [address] SUNITA Bhakta EndocrinologyStart: 11-07-2024 End: 12-11-9585Wtumr fetoprotein, maternalAlpha fetoprotein, maternal Lab Routine 17 weeks gestation of ([facility]) Second trimester ([facility]) Expected: 11/07/2024 (Approximate), Expires: 12/07/2024[facility] Comment on above:Expected: 11/07/2024 (Approximate), Expires: 12/07/2024Start: 11-07-2024 End: 07-75-9348OQ for pregnancyUS OB 14+ weeks anatomy scan Imaging Routine Screening, , for anatomic survey ([facility]) Expected: 11/07/2024, Expires: 02/06/2025NOHI HealthcareComment on above:Expected: 11/07/2024, Expires: 02/06/2025Start: 11-07-2024 End: 34-29-1193Yvrpsiz encounter procedureNOMS [place] OBGYNComment on above: ArrivedStart: 08-14-7189Tkeazgsvg vaccinationInfluenza VaccineSouthern [facility] Medical Center SystemStart: 10-08-2024 End: 27-72-2083Msbdgan encounter procedureNOMS BCP OBComment on above:Arrived Start: 10-04-2024 End: 32-06-4761Mwcpvilbphv [Units/volume] in Serum or PlasmaTSH Lab Routine Alfredo's disease Thyroid disease during , first trimester (HCC) Expected: 10/04/2024 (Approximate), Expires: 10/04/2025NOHI HealthcareComment on above:Expected: 10/04/2024 (Approximate), Expires: 10/04/2025Start: 10-04-2024 End: 34-23-7020Ffoqifjps (T4) free [Mass/volume] in Serum or PlasmaT4, free Lab Routine Alfredo's disease Thyroid disease during , first trimester (HCC) Expected: 10/04/2024 (Approximate), Expires: 10/04/2025[facility] Comment on above:Expected: 10/04/2024 (Approximate), Expires: 10/04/2025Start: 10-04-2024 End: 70-91-1633Niljmbchruyftion (T3) Free [Mass/volume] in Serum or PlasmaT3, free Lab Routine Alfredo's disease Thyroid disease during , first trimester (HCC) Expected: 10/04/2024 (Approximate), Expires: 10/04/2025[facility] Work Phone: Comment on above:Expected: 10/04/2024 (Approximate), Expires: 10/04/2025Start: 10-04-2024 End: 46-43-4206Yicxsdr encounter procedureNOMS SH ENDOCRINOLOGYComment on above: ArrivedStart: 09-05-2024 End: 78-44-1135WRU/RhABO/Rh Lab Routine Missed menses , unspecified gestational age ([facility]) Expected: 09/05/2024 (Approximate), Expires: 09/05/2025[facility] HealthcareComment on above:Expected: 09/05/2024 (Approximate), Expires: 09/05/2025Start: 09-05-2024 End: 67-37-0050Hstzd type and Indirect antibody screen panel - BloodType and screen Lab Routine Missed menses , unspecified gestational age ([facility]) Expected: 09/05/2024 (Approximate), Expires: 09/05/2025[facility] Work Phone: comment on above:Expected: 09/05/2024 (Approximate), Expires: 09/05/2025Start: 09-05-2024 End: 36-73-1130Tnpjz of abuse panel - Urine by Screen methodRapid drug screen, urine Lab Routine , unspecified gestational age ([facility]) Encounter for supervision of normal first in first trimester ([facility]) Expected: 09/05/2024 (Approximate), Expires: 09/05/2025[facility]: Expected: 09/05/2024 (Approximate), Expires: 09/05/2025Start: 09-05-2024 End: 22-50-4365daxxwrjawy38/10/2025 1:30 PM EDT Initial [facility] [address] [place] [address] [facility] BCP OBStart: 09-05-2024 End: 40-28-0856Cgtjttnaytee / ancillary services pgigfhqwjk09/10/2025 1:00 PM EDT Ancillary Procedure [facility] [address] [place] [address] [facility] BCP OBStart: 08-09-2024 End: 74-37-6445Rqkxszfvdgf [Units/volume] in Serum or PlasmaTSH Lab Routine Alfredo's disease Thyroid disease during , first trimester ([facility]) Expected: 08/09/2024 (Approximate), Expires: 08/09/2025[facility]:Expected: 08/09/2024 (Approximate), Expires: 08/09/2025Start: 08-09-2024 End: 17-65-9602Vljzipqyr (T4) free [Mass/volume] in Serum or PlasmaT4, free Lab Routine Alfredo's disease Thyroid disease during , first trimester (HCC) Expected: 08/09/2024 (Approximate), Expires: 08/09/2025[facility] Comment on above:Expected: 08/09/2024 (Approximate), Expires: 08/09/2025Start: 08-09-2024 End: 61-83-3713Qsuzmaioaoynjmcw (T3) Free [Mass/volume] in Serum or PlasmaT3, free Lab Routine Alfredo's disease Thyroid disease during , first trimester (HCC) Expected: 08/09/2024 (Approximate), Expires: 08/09/2025[facility] Work Phone: Comment on above:Expected: 08/09/2024 (Approximate), Expires: 08/09/2025Start: 04-78-1493Ptvyxwyn identified in Urine by [facility]: 03-88-9729Imwiu microalbumin profile DTAP,TDAP,TD (2 - Td)[facility]: 74-92-6287XEY TESTINGPAP TESTING [facility]: 69-24-1782Kvdwmvnpl vaccinationINFLUENZA (Season Ended) [facility]: 83-73-3205ZLpZ,Tdap and Td Vaccines (2 - Td or Tdap) DTaP,Tdap and Td Vaccines (2 - Td or Tdap)[facility]: 89-36-4417Zoeasvdhg for malignant neoplasm of cervixPap SmearNorthern Regional Hospitaltart: 79-67-3536Zekie BMI Follow Up PlanAdult BMI Follow Up PlanNorthern Regional Hospitaltart: 32-21-6323AKQKVZCPM C SCREENINGHEPATITIS C SCREENING [facility]: 55-15-1980NMB SCREENINGHIV SCREENINGFlower Hospital Start: 34-98-7654Gzaty depression screening assessmentDEPRESSION SCREENING [facility]: 61-63-3954Entnwji ScreeningTobacco Screening [facility] HospitalBacteria identified in Urine by CultureUrine culture Microbiology Routine Missed menses Ordered: 09/05/2024[facility] HealthcareComment on above:Ordered: 09/05/2024BC W Auto Differential panel - BloodCBC and differential Lab Routine Missed menses , unspecified gestational age ([facility]) Ordered: 09/05/2024[facility] HealthcareComment on above:Ordered: 09/05/2024 CHLAMYDIA TRACHOMATIS (GENITO/STI)CHLAMYDIA TRACHOMATIS (GENITO/STI) Lab Routine Vaginal discharge Ordered: 11/07/2024[facility] HealthcareComment on above:Ordered: 11/07/2024ytology Cervical or vaginal smear or scraping studyPap Smear Pathology and Cytology Routine Well woman exam with routine gynecological exam Ordered: 11/07/2024[facility] HealthcareComment on above:Ordered: 11/07/2024Hemoglobin A1c/Hemoglobin.total in BloodHemoglobin A1c Lab Routine Missed menses , unspecified gestational age ([facility]) Ordered: 09/05/2024[facility] HealthcareComment on above:Ordered: 09/05/2024Hepatitis B virus surface Ag [Presence] in Serum or Plasma by ImmunoassayHepatitis B surface antigen Lab Routine Missed menses , unspecified gestational age ([facility]) Ordered: 09/05/2024[facility] HealthcareComment on above:Ordered: 09/05/2024Hepatitis C virus Ab [Presence] in Serum or Plasma by ImmunoassayHepatitis C antibody Lab Routine Missed menses , unspecified gestational age ([facility]) Ordered: 09/05/2024[facility] HealthcareComment on above:Ordered: 09/05/2024HIV-1/HIV-2 antigen/antibody combination immunoassayHIV-1 and HIV-2 antibodies Lab Routine Missed menses , unspecified gestational age ([facility]) Ordered: 09/05/2024[facility] HealthcareComment on above:Ordered: 09/05/2024Human papilloma virus DNA [Presence] in Unspecified specimen by Probe with amplificationHPV DNA probe, amplified Microbiology Routine Well woman exam with routine gynecological exam Ordered: 11/07/2024[facility] HealthcareComment on above:Ordered: 11/07/2024 Neisseria gonorrhoeae DNA [Presence] in Unspecified specimen by NICHOLE with probe detectionNeisseria gonorrhea DNA probe, direct Lab Routine Vaginal discharge Ordered: 11/07/2024[facility] HealthcareComment on above:Ordered: 11/07/2024Reagin Ab [Presence] in Serum by RPRRPR Lab Routine Missed menses , unspecified gestational age ([facility]) Ordered: 09/05/2024[facility] HealthcareComment on above: Ordered: 09/05/2024Rubella antibody, IgGRubella antibody, IgG Lab Routine Missed menses , unspecified gestational age ([facility]) Ordered: 09/05/2024[facility] HealthcareComment on above:Ordered: 09/05/2024 End: 86-58-0331SCJF-COVID VACCINE 1ST DOSE APPTSARS-COVID VACCINE 1ST DOSE APPT Procedures Routine 1 Occurrences starting 06/10/2020 until 08/09/2020[facility] ClinicComment on above:1 Occurrences starting 06/10/2020 until 08/09/2020 SURESWAB(R) ADVANCED VAGINITIS PLUS, TMASURESWAB(R) ADVANCED VAGINITIS PLUS, TMA Pathology and Cytology Routine Exposure to STD Ordered: 11/07/2024[facility] Work Phone: comment on above:Ordered: 11/07/2024XR Chest [facility] Immunizations Immunization DateImmunizationNotesCare VjjctnfgVatlfxvr22-83-4173ciursjj toxoid, reduced diphtheria toxoid, and acellular pertussis vaccine, adsorbedAhcherri Carr MD Work Phone: [facility] Payers DatePayer CategoryPayerPolicy ID2025Medicaid (Managed Care)[facility] [id number] 2025[facility] Member Subscriber Plan / Payer (Effective 2024-Present) Name: Brittnee Smith Relation to Subscriber: Self Name: Brittnee Smith Payer ID: [id number] (NAIC) Group ID: Not on file Type: Not on file Address: [address] [id number] 2019Private Health InsuranceAETNA [place] PPO [id number] 2018-Present [id number] Health InsuranceAETNA AETNA PPO [id number] 2018-Present [id number] 2.0.1.039314.3.57[id number] 2.0.1.681930.3.57[id number] 2.840.1.759981.3.57[id number] 2.0.1.530496.3.57[id number] 2.0.1.427062.3.57[id number] 2.840.1.758430.3.57[id number] 2..840.1.485682.3.57[id number] 2.16.840.1.327396.3.57[id number] 2.16.840.1.891325.3.57[id number] 2.16.840.1.262240.3.57[id number] 2.840.1.262603.3.57[id number] 2.840.1.826056.3.57[id number] 2.0.1.489332.3.57[id number] 2.840.1.363506.3.57[id number] 2.840.1.04[id number] 2.840.1.462182.3.579.2.531 [id number] 2.0.1.1[id number] 2.0.1.834901.3.579.2.531 Social History DateTypeDetailFacilityStart: 07-02-2018 End: 03-78-7635Urwawzl smoking status NHISNever smokerRegional Medical Centertart: 07-02-2018 End: 73-91-3607Rcpphyh use and exposureNever usedAultman Orrville Hospitaltart: 07-02-2018 End: 21-01-0826Rzfezpo intakeCurrent drinker of alcohol (finding)[facility]tart: 12-81-7620Qmg Assigned At BirthNot on fileAultman Orrville Hospitaltart: 08-07-2023 End: 34-57-9106Ujm Assigned At [facility] Servicestart: 87-83-3741Nsg Assigned At [facility] Hospitaltart: 08-07-2023 End: 17-12-1772Mmmrjoiyd beverage intakeSouthern [facility] Medical Center SystemStart: 09-04-2022 Alcohol CommentAlcohol: 1 or 2 drinks, 2 to 4 times a month; Caffeine: 1 can /weekK[facility] HealthcareStart: 95-18-3301Bjkjzh identityIdentifies as female gender (finding)[facility] HospitalStart: 39-70-6064Hfholz orientationHeterosexual (finding)[facility] HospitalStart: 03-62-8292XeuvygsabUJIC HealthcareStart: 11-14-2024 End: 45-08-2124Hwzhwttlw beverage intakeEx-drinker (finding)[facility]tart: 71-04-5915IsuxogyswWddwlhsBuwUrgzxx Health SystemStart: 10-02-2014 SexFemale (finding)[facility] Functional Status QpuzWkxpbgzxalFssczmSzxvwrna57-61-1759Dsfzyzd Health Questionnaire 2 item (PHQ- 2) [Reported][facility] Clinical Notes 06-10-2020 to 12-13-2024 Note Date & KklnAoyqElikylqe50-70-3658 History of Present illness Narrative* Kenji Plascencia [...] mcg of Synthroid. Patient has an established tripper at her local hospital. 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 Patient does have ultrasound scheduled with us [...] Yes Have you been seen here at [facility] in a previous ? Yes Recent ER visits or hospitalizations? No Bring blood sugar log or meter with you today? (Please bring them with you for every visit at [facility]) N/A Flu vaccine (Dec-April)? N/A Any concerns that you would like me to mention to the provider today? No documented in this encounterCorey Hospital10-16-2025 History of Present illness Narrative* Calista Khan LPN - 12/12/2024 9:30 AM EDTAssociated Order(s): Colposcopy Post-Procedure Diagnose(s): Colposcopy needed after cervical smear; Second trimester ([facility]); 22 weeks gestation of ([facility]) Reason for Appointment: Patient ID: Brittnee Smith [...] 11/16/2017 Unable to comply with treatment 07/26/2022 ([facility]) 11/28/2017 Exposure to STD 05/31/2023 Encounter for weight management 05/31/2023 Dermatitis, atopic 08/04/2005 Allergic rhinitis 02/18/2000 Asthma ([facility]) 02/18/2000 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 Exam conducted with a logistics intern present. Vitals: Estimated body mass index is 41.81 kg/m as calculated from the following: Height as of 10/04/24: 5' 3 . Weight as of this encounter: 236 lb. BP: 108/62 Patient's last menstrual period was 06/26/2024. ASSESSMENT & PLAN Assessment/Plan Encounter Diagnosis: ICD-10-CM 1. Colposcopy needed after cervical smear R87.619 2. Second trimester ([facility]) Z34.92 3. 22 weeks gestation of ([facility]) Z3A.22 POCT urinalysis dipstick manually resulted [...] weeks of levels. Patient is scheduled with [facility] for anatomy scan tomorrow. Follow Up: [...] TOOTH EXTRACTION 07/2013 teeth documented in this encounterHarry S. [facility]' HospitalXdlafvdutm11-63-8757 Telephone encounter Note* Telephone Encounter - Caryn Lopez NP - 11/13/2024 4:56 PM EDT Please schedule for colposcopy due to PAP ASCUS and HPV positive [facility] Work Phone: [phone]) 914-426509-17-2025 Miscellaneous Notes* Telephone Encounter - Caryn Lopez NP - 11/13/2024 4:56 PM EDT Please schedule for colposcopy due to PAP ASCUS and HPV positive documented in this encounterHarry S. 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 Acute bronchitis 05/13/2024 Acute pharyngitis 09/10/2009 Acute streptococcal pharyngitis 05/13/2024 Encounter for childhood immunizations appropriate for age 0708/30/2007 Obesity affecting , antepartum ([facility]) 11/13/2018 Hyperthyroidism 11/28/2017 Resolved Ambulatory Problems Diagnosis Date Noted Anemia of ([facility]) 04/24/2018 -induced hypertension ([facility]) 04/29/2018 Past Medical History: Diagnosis Date [...] nursing note reviewed. Exam conducted with a logistics intern present. Vitals: Estimated body mass index is 40.64 kg/m as calculated from the following: Height as of 10/04/24: 5' 3 . Weight as of this encounter: 229 lb 6.4 oz. BP: 100/72 Patient's last menstrual period was 06/26/2024. ASSESSMENT & PLAN ICD-10-CM 1. 17 weeks gestation of ([facility]) Z3A.17 POCT urinalysis dipstick manually resulted Alpha fetoprotein, maternal Alpha fetoprotein, maternal 2. Second trimester ([facility]) Z34.92 POCT urinalysis dipstick manually resulted Alpha fetoprotein, maternal Alpha fetoprotein, maternal 3. History of hyperthyroidism Z86.39 4. Well woman exam with routine gynecological exam Z01.419 Pap Smear HPV DNA probe, amplified 5. Screening, , for anatomic survey ([facility]) Z36.89 US OB 14+ weeks anatomy scan US OB 14+ weeks anatomy scan 6. Vaginal discharge N89.8 CHLAMYDIA TRACHOMATIS (GENITO/STI) Neisseria gonorrhea DNA probe, direct 7. Exposure to STD Z20.2 SURESWAB(R) ADVANCED VAGINITIS PLUS, TMA Return OB/Annual Exam: Patient presents today for a annual exam/routine obstetrics appointment. Patient is currently 02v2qlgweexbz. Patient states she is doing well but [...] Synthroid at 300mcg per Dr. 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 Will also refer to [facility] Patient was in the ER for a toe infection and was treated she was having high blood pressure there and she is seeing [facility] for about 1 1/2 to 2 weeks. Referral will be sent to [facility] given her history of hypothyroidism. Orders [...] of: Caryn Lopez NP documented in this encounterHarry S. 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 Acute bronchitis 05/13/2024 Acute pharyngitis 09/10/2009 Acute streptococcal pharyngitis 05/13/2024 Encounter for childhood immunizations appropriate for age 0708/30/2007 Obesity affecting , antepartum ([facility]) 11/13/2018 Hyperthyroidism 11/28/2017 Resolved Ambulatory Problems Diagnosis Date Noted Anemia of ([facility]) 04/24/2018 -induced hypertension ([facility]) 04/29/2018 Past Medical History: Diagnosis Date [...] nursing note reviewed. Exam conducted with a logistics intern present. Vitals: Estimated body mass index is 40.35 kg/m as calculated from the following: Height as of 25: 5' 3 . Weight as of this encounter: 227 lb 12.8 oz. BP: 108/70 Patient's last menstrual period was 06/26/2024. ASSESSMENT & PLAN ICD-10-CM 1. 13 weeks gestation of ([facility]) Z3A.13 POCT urinalysis dipstick manually resulted 2. Second trimester ([facility]) Z34.92 POCT urinalysis dipstick manually resulted [...] or undercooked meat, and stay away from [facility]. Patient has been consulted regarding any [...] of: Ha Baker DO documented in this encounterHarry S. 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 Acute bronchitis 05/13/2024 Acute pharyngitis 09/10/2009 Acute streptococcal pharyngitis 05/13/2024 Encounter for childhood immunizations appropriate for age 0708/30/2007 Obesity affecting , antepartum ([facility]) 11/13/2018 Hyperthyroidism 11/28/2017 Resolved Ambulatory Problems Diagnosis Date Noted Anemia of ([facility]) 04/24/2018 -induced hypertension ([facility]) 04/29/2018 Past Medical History: Diagnosis Date [...] dipstick manually resulted , unspecified gestational age ([facility]) - Type and screen; Future - ABO/Rh; Future - CBC and differential - Hemoglobin A1c - RPR - Rubella antibody, IgG - Hepatitis B surface antigen - Hepatitis C antibody - HIV-1 and HIV-2 antibodies - Rapid drug screen, urine; Future Encounter for supervision of normal first in first trimester ([facility]) - Rapid drug screen, urine; Future Nurse [...] or undercooked meat, and stay away from [facility]. Patient has also been advised to [...] by: Marcie Flannery LPN documented in this encounterHarry S. [facility] Veterans' HospitalOithyimsaf28-41-7909 History of Present illness Narrative* Allen Carr [...] (BMI) of 40.0 to 44.9 in adult ([facility]) Thyroid disease during , first trimester (HCC) - Synthroid 300 MCG tablet; Take 1 tablet (300 mcg) by mouth Daily - T3, free; Future - T4, free; Future - TSH; Future She just found she is , we will check free T4 free T3 to keep it in the high-normal. Follow up in about 2 months (around 10/09/2024). documented in this encounterHarry S. Truman Memorial Veterans' HospitalYeirsbqyor52-21-2872 History of Present illness Narrative* Brandy Galeana [...] nursing note reviewed. Exam conducted with a logistics intern present. Vitals: Estimated body mass index is [...] given: yes Instructions and paperwork completed: yes Surprise protocol: Patient states understanding of procedure being [...] of: Ha Baker DO documented in this encounterHarry S. Truman Memorial Veterans' HospitalAcfjdukeqf04-21-4629 Evaluation note* Encounter Date Diagnosis Assessment Notes [...] treatment plan. Patient left in stable condition. [facility] Other 12-04-2023 Evaluation note* Encounter Date Diagnosis [...] the ER for worsening symptoms or concerns [facility] 10-17-2023 Evaluation note* Encounter Date Diagnosis [...] understanding and is agreeable to treatment plan [facility] Other 06-19-2023 Evaluation note* Encounter Date Diagnosis [...] Tylenol as needed for aches or pains. [facility] Other 04-14-2021 NotePatient Outreach (COVAFW) BRITTNEE SMITH ([id number]) 1995 F Date Time Provider Department 06/10/20 JOSE A STEWART COVJUDYW During your visit today, we recorded the following information about you: Allergies As of Date: 06/10/2020 Noted Allergy Reaction SULFA (SULFONAMIDE ANTIBIOTICS) 07/02/2018 2 - Rash Date Reviewed: 07/02/2018 Reviewed by: Sakina PickeringUT) - Fully Assessed Order(s):SARS-COVID VACCINE 1ST DOSE APPT [[id number]] Order #: [id number] FUTURE SARS-COVID VACCINE 1ST DOSE APPT [[id number]] Order #: [id number] Prescriptions as of 06/10/2020 Sig: SYNTHROID 125 MCG TABLET Take 2 tablets by mouth once * Problem List As Of Date: 06/10/2020 (None) Encounter Status:Closed by APRIL NIXON on 06/15/20[facility] noteNo assessment information availableFlower Hospital Work Phone: Evaluation noteNo InformationNort AppSurfer Other Evaluation note* Diagnosis Onset Date Resolution Status Acute UTI acute [facility] Work Phone: Evaluation note* Diagnosis Onset Date Resolution Status Acute UTI acuteBronchitisacute [facility] Work Phone: Evaluation note* Diagnosis Encounter for removal of intrauterine contraceptive device (IUD) documented in this encounter [facility] HealthcareEvaluation note* Diagnosis Alfredo's disease- Primary Chronic lymphocytic thyroiditis Vitamin D deficiency Encounter for dietary consultation Class 3 severe obesity due to excess calories without serious comorbidity with body mass index (BMI) of 40.0 to 44.9 in adult ([facility]) Thyroid disease during , first trimester ([facility]) Hypothyroidism, unspecified type documented in this encounter [facility] HealthcareEvaluation note* Diagnosis Missed menses , unspecified gestational age ([facility]) Encounter for supervision of normal first in first trimester ([facility]) documented in this encounter [facility] HealthcareEvaluation note* Diagnosis Alfredo's disease- Primary Chronic lymphocytic thyroiditis Vitamin D deficiency Encounter for dietary consultation Thyroid disease during , first trimester ([facility]) Hypothyroidism, unspecified type documented in this encounter [facility] HealthcareEvaluation note* Diagnosis 13 weeks gestation of ([facility]) Second trimester ([facility]) state, incidental Nausea and vomiting in ([facility]) Unspecified vomiting of , unspecified as to episode of care History of hyperthyroidism Constipation, unspecified constipation type documented in this encounter [facility] HealthcareEvaluation note* Diagnosis 17 weeks gestation of ([facility]) Second trimester ([facility]) state, incidental History of hyperthyroidism Well woman exam with routine gynecological exam Routine gynecological examination Screening, , for anatomic survey ([facility]) Encounter for anatomic survey Vaginal discharge Leukorrhea, not specified as infective Exposure to STD documented in this encounter [facility] HealthcareEvaluation note* Diagnosis Colposcopy needed after cervical smear Second trimester ([facility]) state, incidental 22 weeks gestation of ([facility]) documented in this encounter [facility] Healthcare[facility]* Diagnosis 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 documented [facility]InstructionsNot on filedocumented in this encounterProCincinnati [facility] SystemInstructionsNot on filedocumented in this encounterProCincinnati [facility] SystemInstructionsNot on filedocumented in this encounterSouthern [facility] Summary Purpose Family History No Family [...] or prosecute any alcohol or drug abuse patient.[facility] INFORMATION SOURCE (unrecogn ized section and content) DATE CREATED AUTHOR 06/17/2020 [facility] DATE CREATED AUTHOR AUTHOR'S ORGANIZ ATION 08/05/2022 [facility] DATE CREATED AUTHOR AUTHOR'S ORGANIZ ATION 11/28/2023 [facility] DATE CREATED AUTHOR AUTHOR'S ORGANIZ ATION 10/25/2024 [facility] DATE CREATED AUTHOR AUTHOR'S ORGANIZ ATION 12/14/2024 [facility] DATE CREATED AUTHOR AUTHOR'S ORGANIZ ATION 12/15/2024 [facility] REASON FOR VISIT (unrecogniz ed [...] Date No Pcp, [place] [id number] PCP - GeneralFamily Medicine10/23/24Team MemberRelationshipSpecialtyStart DateEnd Date No Pcp, [place] [address] PCP - GeneralFamily Medicine10/23/24Team MemberRelationshipSpecialtyStart DateEnd Date No Pcp, [place] [address] PCP - GeneralFamily Medicine10/23/24 Goals (unrecognized section [...] BE BASED ON THE PRIMARY CLINICAL RECORDS. [employer] [facility]. provides no warranty or guarantee of the accuracy or completeness of information in this document.
[2025-01-30 10:38] LABS: Free T3 2.44 pg/mL (2.18-3.98); Thyroid Stimulating Hormone 4.399 uIU/mL (0.358-3.740)
== END 2025-01-30 09:46 | disposition home or self-care (01) ==
LOC: LAB 09:46
PROVIDERS: Visit Provider Internal Medicine
DX: E03.9 Hypothyroidism, unspecified (principal); R73.09 Other abnormal glucose
CPT/HCPCS: 36415; 82951; 82952; 84439; 84443; 84481

== ENCOUNTER 2025-02-05 10:56 | Observation (INO) | payer OTHER, SELFPAY ==
--- OUTSIDE RECORDS SUMMARY | 2025-02-05 11:03 | XMS_ITS | CCD ---
Author Organization [facility] Inform ion Partnership [facility] Care Team Providers Care Cathode Maker Name Role Phone Scar Bellamy Primary Care [...] Addie Hernandez Unavailable JUICE Swanson Attending Provider [phone] Linda Swanson Unavailable JUICE Altman Attending Provider [phone] NON STAFF Primary Care Provider Unavailabl e JUICE Victoria Attending Provider [phone] Linda Swanson Attending Unavailable Linda Swanson Admitting [...] of OnsetReaction(s) FacilitySulfonamides (antibiotic) (1 source)Sulfonamides (Antibiotic)Drug Wmsahhy24-93-0847[facility]yluMhkwhsddj [facility] (6 sources)Erythromycin / sulfiSOXAZOLEDrug Rgruppc95-67-4626ucgiMzbParkwood Hospital Repository (1 source)Sulfonamides (Antibiotic)Drug allergy (disorder)61-44-2308BfwMckitrick [facility] Rep[facility] (20 sources)Substance with sulfonamide structure and antibacterial mechanism of action (substance)Drug rgqcxwa73-33-1102wcne, OtherKennerdell Peak Other (6 sources)sulfiSOXAZOLE; Translations: [sulfisoxazole]Drug Divinpf38-59-3732 [facility] (8 sources)Sulfonamides (Antibiotic); Translations: [Sulfa (Sulfonamide Antibiotics)]Allergy to ijilafyks50-47-2103ztbkPxfeexolgFulton County Health Center (6 sources)erythromycin base; Translations: [erythromycin base]Allergy to -53-5231xazeImcyfwlsbOhio State East Hospital (20 sources)Sulfamethoxazole; Translations: [SULFAMETHOXAZOLE]Propensity to adverse ngalkqdoi35-16-2045[facility] (20 sources)OtherAllergy to nsavqqdwi43-58-1239Pihi, [facility] Work Phone: (5 sources)Erythromycin / sulfiSOXAZOLE; Translations: [ERYTHROMYCIN-SULFISOXAZOLE]Drug Ruokopy13-96-8779ZcidHqiGeqcht Repository (3 sources)SulfamethoxazoleDrug Etldyhg98-00-6296ZpdqGtzGprohf Health System Medications Current Medications MedicationDrug Class(es)DatesSig (Normalized)Sig (Original)Albuterol (2 sources)beta2-Adrenergic AgonistStart: 41-66-7939Owqzvdxfp Sulfate Active 2 INH INHALATION EVERY 4-6 HOURS 6.7 14 November 20, 2023 12:00amamoxicillin 875 mg / clavulanate 125 mg oral tablet (1 source)Penicillin-class AntibacterialStart: 02-50-9564hpcz 1 tablet by mouth every twelve hoursAmoxicillin-Pot [...] rectal suppository (12 sources)Stimulant LaxativeStart: 10-08-2024 End: 81-68-9985svadwzivx (Dulcolax) 10 MG suppository Indications: Constipation, unspecified constipation type UNWRAP AND INSERT 1 SUPPOSITORY RECTALLY DAILY FOR 10 DAYS 10 suppository 10/11/2024 XuvclaVpntiscrjmfvsax-Roxjafumj-Nx (Bromfed Dm) 2-30-10 mg/5 mL syrup (2 sources)Start: 70-02-1733pjet 1 mL by mouth every four to six hours Quyhvybosmluovl-Ldiblvdcx-Dt (Bromfed Dm) 2-30-10 mg/5 mL syrup Active 10 ML PO EVERY 4-6 HOURS Sept2023 12:00amciprofloxacin 0.003 mg/mg ophthalmic ointment (2 sources)Quinolone AntimicrobialStart: 10-26-1524Mkufyta 0.3 % 1 application into the lower eyelid of affected eye left eye Twice a day for 7 days Jan, Activedocusate sodium 100 mg oral capsule (5 sources)Start: 10-08-2024 End: 81-12-2525wyum 1 capsule by mouth twice daily as needed for constipation docusate sodium (Colace) 100 MG capsule Indications: Constipation, unspecified constipation type Take 1 capsule (100 mg) by mouth 2 (two) times a day as needed for constipation 30 capsule 5 10/08/2024 11/07/2024 Activefluticasone propionate 0.05 mg/actuat metered dose nasal spray (20 sources)CorticosteroidStart: 07-06-8543orhn 2 spray(s) nasal route once dailyFluticasone Propionate [...] mg oral tablet (20 sources)l-ThyroxineStart: 10-08-2024 End: 49-37-5480hpao 1 tablet by mouth before mealtimelevothyroxine (Synthroid) 25 MCG tablet Indications: History of hyperthyroidism Take 1 tablet (25 mcg) by mouth in the morning. Take before meals. 30 tablet 11 11/08/2024 11/08/2025 ActiveStart: 12-28-2022 End: 00-73-4490wapf 1 tablet by mouth once dailySynthroid 300 MCG tablet Indications: Alfredo's disease , Thyroid disease during , first trimester (HCC) Take 1 tablet (300 mcg) by mouth Daily 90 tablet 1 11/11/2024 05/10/2025 ActiveStart: 70-16-9287lblo 2 tablets by mouth once dailySYNTHROID 125 [...] ActivemethylPREDNISolone 4 mg oral tablet (2 sources)CorticosteroidStart: 18-76-3677dsnk 1 tablet by mouth once Methylprednisolone (Medrol (Maximus)) 4 mg tablets,dose pack Active 0 PO per package directions November 20, 2023 12:00am PO PER PKG DIRpolyethylene glycol 3350 31834 mg powder for oral solution (1 source)Osmotic LaxativeStart: 09-02-2024 End: 06-97-0251zruhtouyobuq glycol (GLYCOLAX) 17 gram packet Take 17 [...] 28-0.8 MG tablet (17 sources)Start: 08-26-2024 End: 48-27-2804mjiy 1 tablet by mouth once dailyPrenatal Vit-Fe Fumarate-FA ( Vitamins) 28-0.8 MG tablet Indications: Positive urine test ([facility]) Take 1 tablet by mouth Daily 30 tablet 3 08/26/2024 08/26/2025 Active promethazine hydrochloride 12.5 mg oral tablet (5 sources)PhenothiazineStart: 10-08-2024 End: 08-99-9039wdkz 1 tablet by mouth every four hourspromethazine (Phenergan) 12.5 MG tablet Indications: Nausea and vomiting in ([facility]) Take 1 tablet (12.5 mg) by mouth every 4 (four) hours 60 tablet 1 10/08/2024 11/07/2024 Active Completed/Discontinued Medications MedicationDrug Class(es)DatesSig (Normalized)Sig (Original)dextromethorphan hydrobromide 15 mg / guaiFENesin 400 mg / pseudoephedrine hydrochloride 60 mg oraltablet (5 sources)alpha-Adrenergic Agonist, Uncompetitive N-qtdmhe-B-aspartate Receptor Antagonist, Sigma-1 AgonistStart: 04-18-2023 End: 06-81-5197bauu 4 tablets by mouth every twenty-four hours Wfwpvogiyzzjvez-Pv-Ufoeifbyokb (Capmist Dm) 60-15-400 mg tablet Discontinued 1 TAB PO EVERY 4-6 HOURS April 18, 2023 1:00am October 10, 2023 5:46pm do not exceed 4 doses per 24 hrslevonorgestrel 0.604979 mg/hr intrauterine system (19 sources)Progestin, Progestin-containing Intrauterine DeviceStart: 12-26-2022 End: 20-09-3241Nuyydbaswzibqh intrauterine device 52 mgnitrofurantoin, macrocrystals 25 mg / nitrofurantoin, monohydrate 75 mg oral capsule (6 sources)Nitrofuran AntibacterialStart: 09-23-2024 End: 01-16-2618prcz 1 capsule by mouth in the morningnitrofurantoin, macrocrystal-monohydrate, (Macrobid) 100 MG capsule Indications: UTI symptoms Take 1 capsule (100 mg) by mouth in the morning and 1 capsule (100 mg) before bedtime. Do all this for 7 days. 14 capsule 09/23/2024 10/08/2024 Discontinued Start: 10-10-2023 End: 54-79-1097spsk 1 capsule by mouth every twelve hours at mealtime Nitrofurantoin Monohyd/M-Cryst (Macrobid) 100 mg capsule Discontinued 100 MG PO Every 12 hours 2023 12:00am November 20, 2023 1:06pm must administer with a meal/foodondansetron 4 mg disintegrating oral tablet (10 sources)Serotonin-3 Receptor AntagonistStart: 08-26-2024 End: 84-57-7153sekn 1 tablet by mouth every six hours as needed for nausea and vomiting and nausea and nauseaondansetron ODT (Zofran-ODT) 4 MG disintegrating tablet Indications: Nausea Take 1 tablet (4 mg) bymouth every 6 (six) hours if needed for nausea or vomiting 30 tablet 2 08/26/2024 10/08/2024 ExpiredStart: 49-87-6464udma 1 tablet by mouth every eight hours [...] mg oral tablet (4 sources)Start: 10-10-2023 End: 39-51-5881txsr 1 tablet by mouth three times dailyPhenazopyridine (Pyridium) 200 mg tablet Discontinued 200 MG PO Three times daily 9 October 10, 2023 12:00am November 20, 2023 1:06pmphentermine hydrochloride 37.5 mg oral tablet (8 sources)Sympathomimetic Amine AnorecticStart: 05-03-2023 End: 90-47-9358ckxj 1 tablet by mouth before mealtimephentermine (Adipex-P) 37.5 MG tablet Indications: Encounter for weight management Take 1 tablet (37.5 mg) by mouth in the morning. Take before meals. 90 tablet 08/07/2023 03/26/2024 Discontinued (Other)Pneumatic Walking Boot (3 sources)Start: 12-29-4998Mvrqkehvi Walking Boot Nov, Not-TakingStart: 35-42-0346Mtmkidbzm Walking Boot Nov, Active Problems Active Problems Problem ClassificationProblemDateDocumented DateEpisodic/ChronicAllergic reactions (20 sources)Atopic dermatitis; Translations: [Atopic dermatitis, unspecified] Onset: 525254-32-0410IkfxtanSanyrq (20 sources)Asthma; Translations: [Unspecified asthma, uncomplicated]Onset: 253537-93-2287XjtyfihOvgepyl obstructive pulmonary disease and bronchiectasis (2 sources)Bronchitis; Translations: [Bronchitis, not specified as acute or chronic]90-70-1845OzmthcedVdwbicysxfdwv symptoms and ill-defined conditions (1 source)Dysuria; Translations: [Dysuria]Onset: 48-53-4738PlrejseiLbzzcsit; including migraine (20 sources)Cluster headache; Translations: [Cluster headache syndrome, unspecified, not intractable]Onset: 634698-72-3900XavmaoxHvploeafomsp; infection of eye (except that caused by tuberculosis or sexually transmitteddisease) (1 source)Hordeolum externum left upper eyelidEpisodicJoint disorders and dislocations; trauma-related (20 sources)Chondromalacia of patella; Translations: [Chondromalacia patellae, unspecified knee]Onset: 174521-90-2453FaavijjPqyiihrwb disorders (20 sources)Missed period; Translations: [Irregular menstruation, unspecified] Onset: 217938-95-3876AlyvpqsFaoqhblappb deficiencies (4 sources)Vitamin D deficiency; Translations: [Vitamin D deficiency, unspecified]58-21-0528MxtjxsaKyvrc aftercare (1 source)Encounter for other specified aftercare; Translations: [Encounter for other specified aftercare]Onset: 38-08-3610GkquezyvNebvj complications of (20 sources)Maternal obesity complicating , childbirth and the puerperium, antepartum; Translations: [Obesity complicating , unspecified trimester]Onset: 826707-94-4448WbpwregDqkaf complications of (4 sources)Thyroid disease in ; Translations: [Endocrine, nutritional and metabolic diseases complicating , first trimester]08-09-2024 EpisodicOther complications of (2 sources)Vomiting of , unspecified; Translations: [Unspecified vomiting of , unspecified as to episode of care or not applicable] 07-36-3693BwcwhohmYgdps complications of (2 sources)Hypothyroidism in ; Translations: [Endocrine, nutritional and metabolic diseases complicating , second trimester]12-13-2024 EpisodicOther female genital disorders (2 sources)Vaginal discharge; Translations: [Other specified noninflammatory disorders of vagina]53-93-8263LccuusdnOocvl gastrointestinal disorders (3 sources)Constipation; Translations: [Constipation, unspecified]Onset: 843459-58-6479HcydcvnuJsnhg gastrointestinal disorders (1 source)Constipation, unspecified; Translations: [Constipation, unspecified] Onset: 38-54-5978UlmgfrsjJvlii injuries and conditions due to external causes (1 source)Injury, unspecified, initial encounterEpisodicOther lower respiratory disease (2 sources)Cough; Translations: [Cough]54-48-5872VzmdpangJzotq nutritional; endocrine; and metabolic disorders (1 source)Obesity; Translations: [Obesity, unspecified]Onset: 11-16-2017 05-31-1175IeqqfzpMqxbk nutritional; endocrine; and metabolic disorders (20 sources)Body mass index 30+ - obesity; Translations: [Obesity, unspecified] Onset: 461452-91-7035EulgisbQycyv nutritional; endocrine; and metabolic disorders (2 sources)Severe obesity; Translations: [Class 3 severe obesity due to excess calories without serious comorbidity with body mass index (BMI) of 40.0 to 44.9 in adult ([facility]34-05-4743FzgdqsoJsrpe nutritional; endocrine; and metabolic disorders (4 sources)H/O: hyperthyroidism; Translations: [Personal history of other endocrine, nutritional and metabolicdisease]85-90-1310UkkjowprItsoq and delivery including normal (20 sources)Encounter for supervision of normal , unspecified, second trimester; Translations: [Encounter for supervision of normal , unspecified, unspecified trimester]Onset: 11-28-2017 Resolved: 95-88-9692NbsvjxsuSgzsk screening for suspected conditions (not mental disorders or infectious disease) (8 sources)Encounter for screening for malignant neoplasm of cervix; Translations: [Patient encounter status]Onset: 71-80-0721FgrwbaupJbmca upper respiratory disease (20 sources)Allergic rhinitis; Translations: [Allergic rhinitis, unspecified] Onset: 425524-15-3393GrdbnjoTcdixfuo codes; unclassified (1 source)20 weeks gestation of ; Translations: [20 WEEKS GESTATION OF ]Onset: 76-95-2520RxrlyecbOzftugje codes; unclassified (2 sources)Gestation period, 13 weeks; Translations: [13 weeks gestation of ]52-10-8448GkxriiebHtbjwryc codes; unclassified (1 source)9 weeks gestation of ; Translations: [9 weeks gestation of ]Onset: 96-42-1714LuybfqyiGklzjfwe codes; unclassified (2 sources)Gestation period, 17 weeks; Translations: [17 weeks gestation of ]76-45-6780VxljcgokBffepdgm codes; unclassified (1 source)Gestation period, 22 weeks; Translations: [22 weeks gestation of ]33-72-5524YveefgfrKyckxzp and strains (1 source)Sprain of unspecified ligament of left ankle, initial encounter EpisodicThyroid disorders (20 sources)Congenital hypothyroidism without goiter; Translations: [Congenital hypothyroidism without goiter]Onset: 038826-29-3623HugzelgRkexydkxbunu (1 source)Cough, unspecified; Translations: [Cough, unspecified]Onset: 36-73-4258Ymabjkdyiowu (1 source)Injury, unspecified, initial encounter; Translations: [Injury, unspecified, initial encounter]Onset: 19-67-4825Faqkjabfouqm (20 sources)Unable to comply with treatment; Translations: [Unable to comply with treatment]Onset: 502456-93-9276Hyrrritfwjuq (1 source)Wound CheckOnset: 83-11-3640Rtyuhkndflez (1 source)Constipated - 9 Weeks Onset: 82-52-1789Nximzqb tract infections (6 sources)Acute urinary tract infection; Translations: [Urinary tract infection, site not specified]12-26-0061KdaetgouPjhiq infection (5 sources)Viral infection, unspecified; Translations: [Disease caused by 2019-nCoV]Episodic Past or Other Problems Problem ClassificationProblemDateDocumented DateEpisodic/ChronicAcute bronchitis (20 sources)Acute bronchitis; Translations: [Acute bronchitis, unspecified] Onset: 631700-11-7560QravdtimBiylgmkuwdsib and procreative management (20 sources)Patient encounter status; Translations: [Encounter for removal of intrauterine contraceptive device]Onset: 221400-57-3512VgczzpkaTegykwetyg and other anemia (20 sources)Anemia; Translations: [Anemia, unspecified]Onset: 07-26-2022 25-27-4529WxogqkxtRqvoyggrddxu complicating ; childbirth and the puerperium (20 sources)-induced hypertension; Translations: [Gestational [-induced] hypertension withoutsignificant proteinuria, unspecified trimester]Onset: 04-29-2018 Resolved: 003932-74-8132XfyunkdoTsyonsqhlpvkd and screening for infectious disease (20 sources)Contact with and (suspected) exposure to other viral communicable diseases; Translations: [Contact with or exposure to other viral diseases]Onset: 05-63-8107AjfvikamFqtwq complications of (20 sources)Anemia of ; Translations: [Anemia complicating , unspecified trimester]Onset: 04-24-2018 Resolved: 781454-80-2475EugktcsVuqrz upper respiratory infections (20 sources)Acute sinusitis, unspecified; Translations: [Acute pharyngitis] Onset: 88-35-1791Igppetkn Results Test NameValueInterpretationReference RangeFacilityColposcopyon 59-40-9198Sgobw SaludperryNARCISO 12/12/2024 10:24 AM Colposcopy Date/Time: 12/12/2024 [...] noNOMS HealthcareNOMS HealthcareUrinalysis macro (dipstick) panel (U)on 38-30-7789Vygqqjden, UANegativeNegative - 4(70) +++ mg/dL [facility]S HealthcareBlood, [...] - 1.03NOMS HealthcareUrobilinogen, UA2.00.2 - 12 mg/dLNOMS HealthcareNOOH HealthcareIGP,APTIMA HPV,AGE GDLNon 81-36-0068XGC GDLN ACOG TESTINGNote.NOMS HealthcareComment on above:TESTS RESULT FLAG UNITS REF RANGE LAB Clinician Provided Cytology Information Source.............Endocervix Other.............. No. of containers..01 ThinPrep Vial Age Algo ACOG Berenice... 30-65 FLAG LEGEND: L-Low Normal,H-High Normal,LL-Alert Low,HH-Alert High <-Panic Low,>-Panic High,A-Abnormal,AA-Critical Abnormal Performed at: 01 =G [address] [address] Yi Martin MD, HPV APTIMAPositiveAbnormalNegativeACADIA HEALTHCARE HealthcareComment on above:This nucleic acid amplification test detects fourteen high- risk HPV types (16,18,31,33,35,39,45,51,52,56,58,59,66,68) without differentiation. Performed at: =G [facility] [id number] Talent Acquisition Administrator: Yi Martin MD, Phone: [phone] Performed at: [facility] [address] [facility], [place], [place] [id number] Talent Acquisition Administrator: Yi Martin MD, Phone: [phone] IGP, APTIMA HPV, RFX 16/18,45NoteAbnormal.NOMS HealthcareComment on above:TESTS RESULT FLAG UNITS REF RANGE LAB DIAGNOSIS: [A] 02 EPITHELIAL CELL ABNORMALITY. ATYPICAL SQUAMOUS CELLS OF UNDETERMINED SIGNIFICANCE (ASC-US). Recommendation: [A] 02 Suggest follow up as clinically appropriate. Specimen adequacy: 02 Satisfactory for evaluation. No endocervical component is identified. Performed by: Abdulkadir Bunn, Advertising Manager (ASC) Electronically si... 02 Poppy Joyner MD, [...] Low,>-Panic High,A-Abnormal,AA-Critical Abnormal Performed at: [address] [facility] [address] [place] [address] Yi Martin MD, Interpretation and review of laboratory resultsAbnormalNOOH Healthcare SPATULA-ALONE ENDOCERVIX CLINISYNCNOMS HealthcareRECURRENT VAGINITIS (HTRX)on 25-74-5457KXQZNOKFE VAGINAE 0NOMS HealthcareATOPOBIUM VAGINAENot detectedNOMS HealthcareBVAB 2,3 (BACTERIAL VAGINOSIS ASSOCIATED BACTERIA 2, 3); MOBILUNCUS VZL0DIHL HealthcareBVAB 2,3 (BACTERIAL VAGINOSIS ASSOCIATED BACTERIA 2, 3); MOBILUNCUS SPPNot detectedNOMS HealthcareCANDIDA ALBICANS, PARAPSILOSIS, XIIDTCUWBM7METW HealthcareCANDIDA ALBICANS, PARAPSILOSIS, TROPICALISNot detectedNOMS HealthcareCANDIDA GLABRATA0 NOMS HealthcareCANDIDA GLABRATANot detectedNOMS HealthcareCANDIDA LOVZPK1JPPD HealthcareCANDIDA KRUSEINot detectedNOMS HealthcareCHLAMYDIA QGZMRQYGGUD3BLDV HealthcareCHLAMYDIA TRACHOMATISNot detectedNOMS HealthcareGARDNERELLA VAGINALIS0 NOMS HealthcareGARDNERELLA VAGINALISNot detectedNOMS HealthcareMEGASPHAERA (TYPES 1, 2)0NOMS HealthcareMEGASPHAERA (TYPES 1, 2)Not detectedNOMS Healthcare MYCOPLASMA HBFUCTTNAI8BWAU HealthcareMYCOPLASMA GENITALIUMNot detectedNOMS HealthcareNEISSERIA GWWBHSDTRSQ8IMNM HealthcareNEISSERIA GONORRHOEAENot detected NOMS HealthcareTRICHOMONAS OXTWTJODC1PFPR HealthcareTRICHOMONAS VAGINALISNot detectedNOMS HealthcareNOMS HealthcareUrinalysis macro (dipstick) panel (U)on 46-24-0237Trqohhsbb, UANegativeNegative - 4(70) +++ mg/dLNOMS HealthcareBlood, UANegativeNegative - 50 John/mcLNOMS HealthcareClarity, UAClearNOMS Healthcare Color, UAStrawNOMS HealthcareGlucose, UANegativeNegative - 2000(110) ++++ mg/dL NOMS HealthcareInterpretation and review of laboratory resultsAbnormalNOOH HealthcareKetones, UANegativeNegative - 160(16) ++++ mg/dLNOMS Healthcare Leukocytes, UANegativeNegative - 500+++ Anderson/mcLNOMS HealthcareNitrite, UA NegativeNegative - PositiveNOMS HealthcarepH, UA65 - 9NOMS HealthcareProtein, UA PositiveNegative - 2000(20) ++++ mg/dLNOMS HealthcareSpec Grav, UA1.0151 - 1.03 NOMS HealthcareUrobilinogen, UA1.00.2 - 12 mg/dLNOMS HealthcareNOMS Healthcare Urinalysis macro (dipstick) panel (U)on 05-02-0342Xpfuszhsj, UANegativeNegative - 4(70) +++ mg/dLNOOH HealthcareBlood, UANegativeNegative - 50 John/mcLNOOH HealthcareClarity, UAClearNOMS HealthcareColor, UAStrawNOOH HealthcareGlucose, UANegativeNegative - 2000(110) ++++ mg/dLNOOH HealthcareInterpretation and review of laboratory resultsNormalNOOH HealthcareKetones, UANegativeNegative - 160(16) ++++ mg/dLNOOH HealthcareLeukocytes, UANegativeNegative - 500+++ Anderson/mcL NOMS HealthcareNitrite, UANegativeNegative - PositiveNOMS HealthcarepH, UA65 - 9 NOMS HealthcareProtein, UANegativeNegative - 2000(20) ++++ mg/dLNOMS Healthcare Spec Grav, UA1.0151 - 1.03NOOH HealthcareUrobilinogen, UA1.00.2 - 12 mg/dLNOOH HealthcareNOOH HealthcareGLUCOSE TOLERANCE 3 HOURon 56-26-5081LQWLLKI TOLERANCE 3 HOURmg/dLNOOH HealthcareComment on above:GLU FAST 86 (<95) Col: 10/03/24 1024 GLU 1HR 161 (<180) Col: 10/03/24 1122 GLU 2HR 124 (<155) Col: 10/03/24 1224 GLU 3HR 124 (<140) Col: 10/03/24 1325 CLINISYNCNOOH HealthcareALL CBC WITH AUTO DIFFon 73-26-0727HQRSVNCSR ABSOLUTE AUTO0.1NOMS HealthcareBasophils/100 WBC (Bld)0.5 %0.2 - 2.0 %[facility] Eosinophils/100 WBC (Bld)2 %0.9 - 7.0 %NOMS HealthcareErythrocyte distribution width (RBC) [Ratio]12.7 %11.0 - 15.0 %[facility] HospitalHematocrit (Bld) [Volume fraction]36.6 %36.0 - 48.0 %[facility] HospitalHemoglobin (Bld) [Mass/Vol]12.5 g/dL 12.0 - 16.0 g/dLSt. Lukes Des Peres HospitalIMMATURE GRANULOCYTES ABS AUTO0.04HighNORanken Jordan Pediatric Specialty HospitalImmature granulocytes/100 WBC (Bld)0.4 %0.0 - 0.5 %[facility] Interpretation and review of laboratory resultsAbnormalSt. [facility] LYMPHOCYTES ABSOLUTE AUTO2.8NORanken Jordan Pediatric Specialty HospitalLymphocytes/100 WBC (Bld)29.9 %20.5 - 60.0 %[facility] HospitalMCH (RBC) [Entitic mass]28.7 pg26.7 - 34.0 pgParkland Health CenterHC (RBC) [Mass/Vol]34.2 g/dL29.9 - 35.2 g/dLSt. Lukes Des Peres HospitalMCV (RBC) [Entitic vol]83.9 fL81.0 - 99.0 fLSt. Lukes Des Peres HospitalMONOCYTES ABSOLUTE AUTO0.5NOMS HealthcareMonocytes/100 WBC (Bld)5.2 %1.7 - 12.0 %[facility] HospitalNEUTROPHILS ABSOLUTE AUTO5.9[address] HospitalNeutrophils/100 WBC (Bld)62 %43.0 - 75.0 %[facility] HospitalPlatelet mean volume (Bld) [Entitic vol]10.8 fL9.5 - 13.5 fLSt. Lukes Des Peres HospitalTB EO #0.2NOM[address] HospitalTB [id number] [facility] RBC4.36NOMS [facility] WBC9.5NORanken Jordan Pediatric Specialty HospitalCLINISYNCNGolden Valley Memorial HospitalALL CBC WITH AUTO DIFFon 46-95-6134BYRMNOKXY ABSOLUTE AUTO0.1NOMS HealthcareBasophils/100 WBC (Bld)0.5 %0.2 - 2.0 %[facility] HospitalEosinophils/100 WBC (Bld)1.2 %0.9 - 7.0 % [facility] HospitalErythrocyte distribution width (RBC) [Ratio]12.6 %11.0 - 15.0 % [facility] HospitalHematocrit (Bld) [Volume fraction]36.8 %36.0 - 48.0 %[facility] HospitalHemoglobin (Bld) [Mass/Vol]12.6 g/dL12.0 - 16.0 g/dLSt. [facility]ukes [facility] IMMATURE GRANULOCYTES ABS AUTO0.05HighNORanken Jordan Pediatric Specialty HospitalImmature granulocytes/100 WBC (Bld)0.4 %0.0 - 0.5 %[facility] HospitalInterpretation and review of laboratory resultsAbnormWayne Memorial HospitalLYMPHOCYTES ABSOLUTE AUTO3.3NORanken [facility] Lymphocytes/100 WBC (Bld)28.5 %20.5 - 60.0 %[facility] Health CenterH (RBC) [Entitic mass]28.8 pg26.7 - 34.0 pgParkland Health CenterHC (RBC) [Mass/Vol]34.2 g/dL29.9 - 35.2 g/dLParkland Health CenterV (RBC) [Entitic vol]84 fL81.0 - 99.0 fLSt. Lukes Des Peres HospitalMONOCYTES ABSOLUTE AUTO0.6NORanken Jordan Pediatric Specialty HospitalMonocytes/100 WBC (Bld)5.5 % 1.7 - 12.0 %[facility] HospitalNEUTROPHILS ABSOLUTE AUTO7.4HighSt. [facility]ukes [facility] Neutrophils/100 WBC (Bld)63.9 %43.0 - 75.0 %[facility] HospitalPlatelet mean volume (Bld) [Entitic vol]10.9 fL9.5 - 13.5 fLSt. Lukes Des Peres HospitalTB EO #0.1[facility] TBH ROH272KRYJFitzgibbon Hospital RBC4.38NOMS [facility] WBC11.5HighSt. Lukes Des Peres HospitalCLINISYNCNGolden Valley Memorial HospitalHCG ( test) Ql (U)on 09-05-2024 Interpretation and review of laboratory resultsAbnormWayne Memorial HospitalPreg Test, UrPositiveNegativeColumbia Regional Hospital HealthcareUS OB TRANSVAGINALon 09-05-2024 OB [...] No LMP recorded.Urinalysis macro (dipstick) panel (U)on 91-56-6152Kjpankoty, UA NegativeNegative - 4(70) +++ mg/dLNOMS HealthcareBlood, UANegativeNegative - 50 John/mcLNOOH HealthcareClarity, UAClearNOMS HealthcareColor, UAYellowNOMS HealthcareGlucose, UANegativeNegative - 2000(110) ++++ mg/dLNOOH Healthcare Interpretation and review of laboratory resultsNormalNOOH HealthcareKetones, UA NegativeNegative - 160(16) ++++ mg/dLACADIA HEALTHCARE HealthcareLeukocytes, UANegative Negative - 500+++ Anderson/mcLNOOH HealthcareNitrite, UANegativeNegative - Positive N[facility]S HealthcarepH, UA65 - 9NOMS HealthcareProtein, UANegativeNegative - 2000(20) ++++ mg/dLNOOH HealthcareSpec Grav, UA1.021 - 1.03NOMS HealthcareUrobilinogen, UA1.00.2 - 12 mg/dLNOMS HealthcareNOMS HealthcarePOCT NURSING URINE MACROSCOPIC UAon 88-29-5394NUVUKKLWG NURNegativeNormalNegSt. Elizabeth Hospital Comment on above:Performed By: #### NUM #### [facility] ([facility]) [address] [place] [address] VIRBLOOD/HGB NURTraceAbnormalNegSt. Elizabeth HospitalComment on above:Performed By: #### NUM #### [facility] ([facility]) [address] [place] [address] VIRGLUCOSE NURNegativeNolevine children's hospitalNegSt. Elizabeth Hospital Comment on above:Performed By: #### NUM #### [facility] ([address] [place] [address] VIRKETONES NURNegativeNormalNegativeOhioHealth Comment on above:Performed By: #### NUM #### [facility] ([address] [place] [address] VIRLEUKOCYTE ESTERASE NURNegativeNormalNegativeOhioHealthComment on above:Performed By: #### NUM #### [facility] ([address] [address] VIRNITRITE NURNegativeNormalNegativeOhioHealth Comment on above:Performed By: #### NUM #### [facility] ([address] [address] VIRPH NUR6.9Zerygx9.0, 6.0, 6.5, 7.0, 7.5, 8.0, 8.5, 5.5 OhioHealthComment on above:Performed By: #### NUM #### [facility] ([address] [address] VIRPROTEIN NURNegativeNolevine children's hospitalNegSt. Elizabeth Hospital Comment on above:Performed By: #### NUM #### [facility] ([address] [place] [address] VIRSPECIFIC GRAVITY ROX>=1.850Smmlimup6.010, 1.015, 1.020, 1.025OhioHealthComment on above:Performed By: #### NUM #### [facility] ([address] [address] VIRUROBILINOGEN NUR0.2 E.U./dLNoSelect Medical [facility] Comment on above:Performed By: #### NUM #### [facility] ([address] [address] VIRPOCT , URINE (NUCG)on 95-20-1577Enys HCG ( test) Ql (U)PositiveAbnormalNegative, IndeterminateProMedica Philadelphia HospitalComment on above:Performed By: #### NUCG #### [facility] ([facility]) [address] [place] [address] VIRTBH PREG QUANT HCGon 98-02-0568GDI JKBPTCVCQLFZ49234aTL/mL NOMS HealthcareComment on above:5-50 0.2-1 WEEK 50-500 1-2 WEEKS 100-5,000 2-3 WEEKS 500-10,000 3-4 WEEKS 1,000-50,000 4-5 WEEKS 10,000-100,000 5-6 WEEKS 15,000-200,000 6-8 WEEKS 10,000-100,000 2-3 MONTHS CLINISYNCNORanken Jordan Pediatric Specialty HospitalTB PREG QUANT HCGon 77-57-7817CIH UZUGWYRVMVVO41554 mIU/mLNOMS HealthcareComment on above:5-50 0.2-1 WEEK 50-500 1-2 WEEKS 100-5,000 2-3 WEEKS 500-10,000 3-4 WEEKS 1,000-50,000 4-5 WEEKS 10,000-100,000 5-6 WEEKS 15,000-200,000 6-8 WEEKS 10,000-100,000 2-3 MONTHS CLINISYNCNOOH HealthcareIUD Removalon 42-34-9490Hjpql BoresNARCISO 03/27/2024 12:35 PM IUD Removal Date/Time: 03/26/2024 1:59 PM Performed by: Ha Baker DO Authorized by: Ha Baker DO Consent: Consent obtained: Written Consent given by: Patient Procedure risks and benefits discussed: yes Patient questions answered: yes Patient agrees, verbalizes understanding, and wants to proceed: yes Educational handouts given: yes Instructions and paperwork completed: yes [place] protocol: Patient states understanding of procedure being [...] the office for annual exam unless needed otherwiseFormerly [facility], later [facility] MorgantonNo Panel InformationOrdered By: Amanda Victoria on 41-77-3191GWFAM Antigen (POC)[facility], Cancer CenterQuick Strep (POC) [facility], Cancer CenterXR chest 2V*on 53-45-0230SK chest 2V*[facility] [address] XRay Report Signed Patient: Brittnee Smith MR#: [id number] [birth year] : 1995 Acct:[id number] Age/Sex: 28 / F ADM Date: 11/20/23 [facility]: Type: [facility] Attending Dr: Amanda Victoria APRN Copies to: [...] Anda Jr., D.OMelisa11/20/2023 2:04 PM Dictation Location: [place] [address] Transcribed By: [facility] 11/20/23 1404 Dictated By: Shlomo De Anda Jr, DO 11/20/23 140 Signed By: 11/20/23 140[facility] Physician GroupLaboratory - Chemistry and Chemistry - challengeon 71-97-3490Khgiekqrr Ql (U)[facility]rin[facility] HospitalGlucose (U) [Mass/Vol][facility] Ketones Ql (U)NegativeOhiohealth Arthur G.H. Bing, Md, Cancer CenterpH (U)7.0 [pH]Wilson Memorial Hospitalpecific gravity (U) [Rel density]1.030Ohio[facility]. Bing, Md, Cancer CenterUrobilinogen (U) [Mass/Vol]0.2 mg/dLOhiohealth Arthur G.H. Bing, Md, Cancer CenterLaboratory - Specimen informationon 72-31-3602Tdhgfzmttj (U)cloudy [facility] Md, Cancer CenterColor (U)yellowOhiohealth Arthur G.H. Bing, Md, Cancer CenterLaboratory - Urinalysison 75-03-2793Gfsvpkxin esterase Test strip Ql (U) smallOhiohealth Arthur G.H. Bing, Md, Cancer CenterNitrite Ql (U)PositiveOhiohealth Arthur G.H. Bing, Md, Cancer CenterProtein Ql (U)100Ohio[facility] Md, Cancer CenterNo Panel Informationon 18-87-1212Opbps Occult BloodlargeOhiohealth Arthur G.H. Bing, Md, Cancer Center Urine Cultureon 34-28-9548Dyixluec identified Cx Nom (U)ORGANISM: Escherichia coli (O:ESCCOL) [place] Count >100,000 Aerobic MEENA Charge (NMIC56) SUSCEPTIBILITY [...] RESISTANT TO ALL B-LACTAM DRUGS. PERFORMED BY: [place] [id number] PATHOLOGIST PHOTOGRAPH RETOUCHER ROXANNE DIETRICH M.D.NormalHca Florida Oak Hill Hospital Physician GroupComment on above:Performed By: #### CUU #### [facility] [address] [place] [address] USAUrine culture routineOrdered By: Diana Altman on 14-87-8303Lyidgdlu identified Cx Nom (U)Escherichia coliAbnormalOhiohealth Arthur G.H. Bing, Md, Cancer CenterNo Panel InformationOrdered By: Linda Swanson on 55-70-8000UVSDE/Influenza Antigen (POC)[facility] COVID/FLU/RSV RT-PCRon 16-59-3176XPKF-CoV-2 (COVID-19) RNA NICHOLE+probe Ql (Unsp spec)NegativeKennerdell Peak Other COVID/FLU/RSV RT-PCRNegativeKennerdell Peak Other xr ankle LT min 3V*on 22-38-0554GE ankle LT min 3V* [facility] Peak Other xr ankle LT min 3V*[facility] Main [facility] Peak Other XR ankle LT min 3V*[address] [place] [address] Peak Other xr ankle LT min 3V*[place] [id number] Other xr ankle LT min 3V*XRay ReportKennerdell Peak Other xr ankle LT min 3V*SignedKennerdell Peak Other xr ankle LT min 3V*Patient: Brittnee Smith MR#: [id number] [place] Other XR ankle LT min 3V*11[facility] Peak Other xr ankle LT min 3V*: 1995 Acct:[id number] Veodin Other xr ankle LT min 3V*Age/Sex: 27 / F ADM Date: 12/13/22 Veodin Other xr ankle LT min 3V*Loc: XDUCLY Room: Type: [facility] Veodin Other xr ankle LT min 3V*Attending Dr: Linda Swanson [facility] Veodin Other xr ankle LT min 3V*Copies to: Linda Swanson [facility] Veodin Other xr ankle LT min 3V*Ordering Provider: Linda Swanson [facility] HOSPITALTheFriendMail Other xr ankle LT min 3V*Date of Service: 12/13/22[facility] InstituteApprova Other xr ankle LT min 3V* XR/XR ankle LT min 3V*: T14.90XAKennerdell Peak Other xr ankle LT min 3V*LEFT ANKLE - 3 viewsKennerdell Peak Other xr ankle LT min 3V*CLINICAL DATA: Patient fell down stairs injuring left ankle today. Generalized pain and swelling.Veodin Other xr ankle LT min 3V*COMPARISON: [facility] Peak Other xr ankle LT min 3V*AP, lateral and oblique views were obtained. There is no evidence of fracture or dislocation. [facility] HospitalTheFriendMail Other xr ankle LT min 3V*talar dome is intact. A tiny plantar calcaneal spur is present. There is mild diffuse soft tissueKennerdell Peak Other XR ankle LT min 3V*swelling, greater anteriorly.Veodin Other XR ankle LT min 3V* XR/XR ankle LT min 3V*Veodin Other XR ankle LT min 3V*IMPRESSION:Veodin Other XR ankle LT min 3V*NO ACUTE BONY INJURY.Veodin Other XR ankle LT min 3V*Impression dictated by: Brandy Shields M.D.12/13/2022 9:49 AMNreynolds county general memorial hospital Peak Other XR ankle LT min 3V*Dictation Location: [place] [address] Veodin Other XR ankle LT min 3V*Transcribed By: [facility] 12/13/22 [facility] Veodin Other XR ankle LT min 3V*Dictated By: Brandy Shields MD 12/13/[address] [place] [address] Peak Other XR ankle LT min 3V*Signed By:Veodin Other XR ankle LT min 3V*12/13/22 [facility]dwellVe[facility]in Other XR ankle LT min 3V*[facility] Main [place] [address] [place] [address] XRay Report Signed Patient: Brittnee Smith MR#: [id number] [birth year] : 1995 Acct:[id number] Age/Sex: 27 / F ADM Date: 12/13/22 Loc: X[facility]CLY Room: Type: [facility] Attending Dr: Linda Swanson APRN Copies to: [...] Brandy Shields M.D.12/13/2022 9:49 AM Dictation Location: [place] [address] Transcribed By: [facility] 12/13/2249 Dictated By: Brandy Shields MD 12/13/2247 Signed By: 12/13/2249[facility] Physician GroupAFP MATERNAL FOR SPINA BIFIDAon 52-04-4370TMH MoM0.73[facility] Hospital of ColumbusComment on above:Result Comment: This is a corrected report. The previously reported result was: AFP MoM See interpretation. 06/29/2022erformed By: #### AFPMAT #### [facility] [address] [place] [address] [address] Cathleen Miner Value35.4 ng/mLNAshtabula County Medical CenterComment on above: Performed By: #### AFPMAT #### [facility] [address] [place] [address] [address] Cathleen Miner, Serum for Spina BifidaCoDunlap Memorial Hospital Comment on above:Result Comment: The MOM and risk factors of this report have been modified based on new information supplied to us by the client or their designated field service representative. The Weight was changed from Not provided. to 222. This is a corrected report. The previously reported result was: Results Report 06/29/2022erformed By: #### AFPMAT #### [facility] [address] [place] [address] [address] Cathleen HuertaOhio State Harding HospitalComcaro center on above:Result Comment: Sameera Hollingsworth, Ph.D., [facility] Director . References: Available Upon Request. . Multiples Of Median Cutoffs For AFP Elevations Wolfe 2.5 Black 2.8 IDD 2.0 Twins 4.5 Abbreviation Definitions IDD - Insulin Dep Diabetes OSBR - Open Spina Bifida Risk . For further inquiries contact [facility] [employer] [facility] at [phone]. . This test was developed and its performance characteristics determined by [employer]. It has not been cleared or approved by the Food and Drug Administration.Performed By: #### AFPMAT #### [facility] [address] [place] [address] Dr. Cathleen Dailey Age Collection Date20.4 [facility] Comment on above:Performed By: #### AFPMAT #### [facility] [address] [place] [address] Dr. Cathleen GodwinGestat, Age Based onUltrasHolzer Medical Center – JacksonComment on above:Result Comment: 20.4 on 06/27/2022 Recalculations are not recommended when gestational dating by LMP and ultrasound are within 10 days.Performed By: #### AFPMAT #### [facility] [address] [place] [address] Dr. Cathleen Navarrete Dep DiabetesNoNAshtabula County Medical CenterComment on above:Performed By: #### AFPMAT #### [facility] [address] [place] [address] Dr. Cathleen GodwinInterpretationComWood County HospitalComment on above: Result Comment: Interpretation: Screen [...] Customer Services to discuss available options. The [employer] recommends amniocentesis [...] new clinical information.Performed By: #### AFPMAT #### [facility] [address] [place] [address] Dr. Cathleen Batista Age [facility] EDD[age] [facility] on above:Performed By: #### AFPMAT #### [facility] [address] [place] [address] Dr. Cathleen Bernal GestationMercy Health St. Elizabeth Boardman HospitalComment on above: Performed By: #### AFPMAT #### [facility] [address] [place] [address] Dr. Cathleen AbbottBR Risk 1 [id number] Health System Selby General Hospital on above: Result Comment: This is a corrected report. The previously reported result was: OSBR Risk 1 IN See interpretation. 06/29/2022erformed By: #### AFPMAT #### [facility] [address] [place] [address] Dr. Cathleen Bhatt.[facility] Hospital of ColumbusComment on above:Performed By: #### AFPMAT #### [facility] [address] [place] [address] Dr. Cathleen NewbyucasiMercy Health Perrysburg HospitalComment on above: Performed By: #### AFPMAT #### [facility] [address] [place] [address] Dr. Cathleen GodwinTest Results:NegativeNoBerger Hospital on above: Result Comment: This is a corrected report. The previously reported result was: Test Results: See interpretation. 3Performed By: #### AFPMAT #### [facility] [address] [place] [address] Dr. Cathleen Maxwell B SURFACE ANTIGEN SCREENon 80-57-1140SQgQo ScreenNegative NormalNegativeThe [facility] on above:Performed By: #### HBSANS #### [facility] [address] [place] [address] Dr. Cathleen HearnTIS C VIRUS AB W/ REFLEX QUANTon 17-21-4062DWG AB Non-ReactiveNormalNon ReactiveThe [facility] Edwin ShawComcaro center on above:Performed By: #### HCVPCRR #### [place] [address] [address] Cathleen GodwinInterpretation:CommentNoBerger Hospital on above:Result Comment: Not infected with HCV unless early or acute infection is suspected (which may be delayed in an immunocompromised individual), or other evidence exists to indicate HCV infection.Performed By: #### HCVPCRR #### [facility] [address] [place] [address] Dr. Cathleen Ulrich 1 AND 2 WITH REFLEXon 99-23-3694XCI Screen 4th Generation wRfxNon-ReactiveNormalNon ReactiveThe [facility] on above:Result Comment: HIV Negative HIV-1/HIV-2 antibodies and HIV-1 p24 antigen were NOT detected. There is no laboratory evidence of HIV infection.Performed By: #### HIV12 #### [facility] [address] [place] [address] Dr. Cathleen GodwinRPPerry QUANTon 70-10-5956Hxaar Plasma Reagin, QuantNon-Reactive NormalNonRea<1:1The [facility] on above:Result Comment: Please Note: This test does not meet current guidelines for screening and diagnosis of syphilis. This test is intended for following treatment response in patients being treated for syphilis infection. To screen for syphilis infection, a reflex cascade that includes both RPR and a treponema-specific assay should be utilized, such as Treponema pallidum (Syphilis) Screening [place] (862319) or Rapid Plasma Reagin (RPR) Test With Reflex to Quantitative RPR and Confirmatory Treponema pallidum Antibodies (456872).Performed By: #### RPRQ #### [facility] [address] [place] [address] [address] Cathleen Ames AB IGGon 72-69-7042Xjyfkci Antibodies, IgG1.39 index NormalImmune >0.99The [facility], [facility] ShawComment on above:Result Comment: Non- immune <0.90 Equivocal 0.90 - 0.99 Immune >0.99Performed By: #### RUBIGG ####[facility] [address] [place] [address]Dr. Cathleen Gibson AUTO DIFFon 10-35-9691AKLS # 0.0 103/ulNormal0.0-0.1The [facility] ShawComment on above:Performed By: #### CBC #### [facility] [address] [place] [address] Dr. Cathleen Larsonsophils/100 WBC (Bld)0.3 %Normal0.2-2.0[facility] Comment on above:Performed By: #### CBC #### [facility] [address] [place] [address] Dr. Cathleen Starkey #0.2 103/ulNormal0.0-0.7The [facility], [facility] ShawComment on above: Performed By: #### CBC #### [facility] [address] [place] [address] Dr. Cathleen Colemanosinophils/100 WBC (Bld)1.3 %Normal0.9-7.0The [facility] Comment on above:Performed By: #### CBC #### [facility] [address] [place] [address] Dr. Cathleen Colemanrythrocyte distribution width (RBC) [Ratio]13.2 %Cmzcyz54.0-15.0 The [facility], [facility] ShawComment on above:Performed By: #### CBC #### [facility] [address] [place] [address] [address] Cathleen GodwinHematocrit (Bld) [Volume fraction]32.9 %Critically low36.0-48.0 The [facility], [facility] ShawComment on above:Performed By: #### CBC #### [facility] [address] [place] [address] [address] Cathleen GodwinHemoglobin (Bld) [Mass/Vol]11.3 g/dLCritically low12.0-16.0The [facility] ShawComment on above:Performed By: #### CBC #### [facility] [address] [place] [address] [address] Cathleen GodwinIG #0.18 10e3/ulCritically high0.00-0.03The [facility] Comment on above:Performed By: #### CBC #### [facility] [address] [place] [address] Dr. Cathleen Larry %1.6 %Critically high0.0-0.5The [facility] ShawComment on above:Performed By: #### CBC #### [facility] [address] [place] [address] [address] Cathleen Johns #2.6 103/ulNormal1.2-3.8The [facility] ShawComment on above:Performed By: #### CBC #### [facility] [address] [place] [address] [address] Cathleen Tranmphocytes/100 WBC (Bld)22.5 %Zmpupi04.5-60.0The [facility] Medical Centerment on above:Performed By: #### CBC #### [facility] [address] [place] [address] [address] Cathleen GodwinMANUAL DIFF REQNONormalThe [facility] ShawComment on above: Performed By: #### CBC #### [facility] [address] [place] [address] [address] Cathleen Rao (RBC) [Entitic mass]29.4 fiJoorcw08.7-34.0The [facility] ShawComment on above:Performed By: #### CBC #### [facility] [address] [place] [address] [address] Cathleen WilliamHC (RBC) [Mass/Vol]34.3 g/sBZwgfwz73.9-35.2The [facility] ShawComment on above:Performed By: #### CBC #### [facility] [address] [place] [address] Dr. Cathleen WilliamV (RBC) [Entitic vol]85.5 yCGhrhgc27.0-99.0The [facility] ShawComment on above:Performed By: #### CBC #### [facility] [address] [place] [address] Dr. Cathleen Maria #0.5 103/ulNormal0.3-0.8The [facility] ShawComment on above:Performed By: #### CBC #### [facility] [address] [place] [address] Dr. Cathleen Lubinocytes/100 WBC (Bld)4.5 %Normal1.7-12.0The [facility] Comment on above:Performed By: #### CBC #### [facility] [address] [place] [address] Dr. Cathleen Tenorio #8.1 103/ulCritically high1.4-6.5The [facility] Comment on above:Performed By: #### CBC #### [facility] [address] [place] [address] Dr. Cathleen Garayutrophils/100 WBC (Bld)69.8 %Gldaen90.0-75.0The [facility] ShawComment on above:Performed By: #### CBC #### [facility] [address] [place] [address] Dr. Cathleen Flanaganlet mean volume (Bld) [Entitic vol]10.8 fLNormal9.5-13.5The [facility] ShawComment on above:Performed By: #### CBC #### [facility] [address] [place] [address] Dr. Cathleen GodwinPLT223 103/shPhqndk144-013Szx [facility] ShawComment on above: Performed By: #### CBC #### [facility] [address] [address] [address] Cathleen GodwinRBC3.85 106/ulCritically low4.20-5.40The [facility] on above:Performed By: #### CBC #### [facility] [address] [address] [address] Cathleen GodwinWBC11.5 103/ulCritically high4.0-11.0The [facility] on above:Performed By: #### CBC #### [facility] [address] [address] [address] Cathleen GodwinCULTURE URINEon 31-51-2980BGUTGGY URINECulture Observations: LIGHT GROWTH OF MIXED GENITAL KASIA. NO POTENTIAL PATHOGENS SEEN.NormalThe [facility] on above:Performed By: #### URCX ####[facility] [address] [place] [address]. Cathleen Godwin GLYCOHEMOGLOBIN A1Con 56-61-5485YWL RECOMMENDATIONSEE BELOWChildren's Hospital of ColumbusComcaro center on above:Result Comment: ADA RECOMMENDED LIMIT 4.0 - 6.0 ADA THERAPEUTIC TARGET < 7.0 ACTION SUGGESTED > 7.0Performed By: #### A1C #### [facility] [address] [place] [address] Dr. Cathleen GodwinGlucose [Mass/Vol]114 mg/dLMemorial Health System [facility] on above:Performed By: #### A1C #### [facility] [address] [place] [address] Dr. Cathleen GodwinHbA1c (Bld) [Mass fraction]5.6 %Normal4.5-6.2The [facility] on above:Performed By: #### A1C #### [facility] Laboratory [address] [place] [address] Dr. Cathleen GodwinTSHon 95-23-8849DJV75.370 uIU/mLCritically high0.358-3.740The [facility] on above:Performed By: #### TSH #### [facility] Laboratory [address] [address] [address] Cathleen GodwinTYPE AND SCREENon 96-78-0202HBPA AND SCREENNegativeChildren's Hospital of ColumbusComment on above:Performed By: #### TNS #### [facility] Laboratory [address] [place] [address] Dr. Cathleen Hughes PREG ANATOMY SINGLEon 79-76-1678AP PREG ANATOMY SINGLE EXAMINATION: US PREG ANATOMY [...] Electronically authenticated by: CHRISTIANNE ULLOA Date: 2022-06-27 15:[address] [place] [address] Vital Signs Date TimeVital SignValuePerforming BnmsgfikiTuagcisv41-94-3404 08:03-0400Body inquzm352.6 cmKenji Plascencia MD Work Phone: p[facility] PromoFarma.comUhfcwp38-47-4840 08:03-0400Body mass index (BMI) [Ratio]40.39 kg/a2YbfdrqKenji Plascencia MD Work Phone: 1(364)[address] [place], [place] 4831210-17-2025 08:03-0400Body odukws199.78 kgKenji Plascencia MD Work Phone: [phone])[address] [place], [place] 4831210-17-2025 08:03-0400Diastolic blood jrvztvpy19 mm[Hg]Kenji Plascencia MD Work Phone: 1(419)[address] [place], [place] 4831210-17-2025 08:03-0400Heart rate 83 /minKenji Plascencia MD Work Phone: [phone])[address] [place], [place] 4831210-17-2025 08:03-0400Systolic blood mhoaqcbr172 mm[Hg]Kenji Plascencia MD Work Phone: [phone])[address] [place], [place] 4831210-16-2025 09:24-0400Body mass index (BMI) [Ratio]41.81 kg/h1Pzpti Samuel DO Work Phone: 1(214)[address] [place], [place] 4995910-16-2025 09:24-0400Body ldxmmo443.05 kgCorey Samuel DO Work Phone: 1(378)[address] [place], [place] 4995910-16-2025 09:24-0400Diastolic blood cmtpibto79 mm[Hg]Ha Samuel DO Work Phone: 1(275)[address] [place], [place] 4995910-16-2025 09:24-0400Systolic blood jnigeenk539 mm[Hg]Ha Samuel DO Work Phone: 1(958)[address] [place], [place] 4995909-11-2025 11:30-0400Body mass index (BMI) [Ratio]40.64 kg/o9LmdpgrpsCaryn Lopez NP Work Phone: 1(402)[address] [place] [address]-11-2025 11:30-0400Body llbqfi691.06 kgCaryn Lopez CERTIFIED MEDICATION AIDE Work Phone: 1([phone])[address] [place] [address]-11-2025 11:30-0400Diastolic blood hawijtps36 mm[Hg]Caryn Lopez NP Work Phone: [facility] HospitalEbzwcpbwlq03-25-1530 11:30-0400Systolic blood zekxncbm731 mm[Hg]Caryn Lopez KALIE Work Phone: [facility] HospitalYqbtabtusc71-64-5074 14:04-0400Body mass index (BMI) [Ratio]40.35 kg/e0Sqrqe Samuel DO Work Phone: [facility] HospitalUnljeuxgad71-74-4395 14:04-0400Body koocvw317.33 kgCorey Samuel DO Work Phone: 1(376)005-[address] [place], [place] [address]Dqndshxngi69-63-3221 14:04-0400Diastolic blood rgqxehdt76 mm[Hg]Ha Samuel DO Work Phone: [facility] HospitalAptzbmrvux91-52-9104 14:04-0400Systolic blood mm[Hg]Hajona Nowako DO Work Phone: [facility] HospitalWypacnixzv39-86-6255 10:07-0400Body ebtjho680 cm Allen Carr MD Work Phone: 1([phone] [place], [place] [address]Gishmqwdmp38-82-3317 10:07-0400Body mass index (BMI) [Ratio]39.86 kg/p6HatciAllen Carr MD Work Phone: [phone] HospitalLmrkpbnefl79-34-0923 10:07-0400Body tmnyfv035.06 kgAllen Carr MD Work Phone: [facility] HospitalTmpirolzxh29-04-4022 10:07-0400Diastolic blood kzdtkqri53 mm[Hg]Allen Carr MD Work Phone: 1([phone] [place], [place] [address]Zxdqwolxsu04-90-2585 10:07-0400Heart rate77 /min Allen Carr MD Work Phone: [facility] HospitalXnrfqvemdk09-59-0016 10:07-0400Respiratory rate16 /minAllen Carr MD Work Phone: [facility] HospitalUxpowtvwaz42-59-3971 10:07-6515UzW6% (BldA) [Mass fraction]99 %Allen Carr MD Work Phone: [address] [place], [place] [address]Pwivrjljym87-52-5570 10:07-0400Systolic blood flwifkpx832 mm[Hg]Allen Carr MD Work Phone: 1(659)212-[address] [place], [place] [address]Qlsgatyqlt81-17-3600 14:05-0400Body mass index (BMI) [Ratio]39.2 kg/d0ToqqaBuffalo Psychiatric Center07-10-2025 14:05-0400Body weight 103.6 kgBuffalo Psychiatric Center06-13-2025 11:20-0400Body sabykg147.6 Sriram Carr MD Work Phone: [phone])[address]06-13-2025 11:20-0400Body mass index (BMI) [Ratio]40.17 kg/y8MazrnAllen Carr MD Work Phone: 1(467)038-[address] [place], [place] [address]Phtqzxsupa10-10-3507 11:20-0400Body myxmkk475.14 kgAllen Carr MD Work Phone: 1(373)[address]06-13-2025 11:20-0400Heart rate93 /min Allen Carr MD Work Phone: 1(291)382-[address] [place], [place] [address]Nrfbteqdlt02-94-0778 11:20-0400Respiratory rate16 /minAllen Carr MD Work Phone: 1(768)017-[address] [place], [place] [address]Lcdfltngtk71-41-0358 11:20-8496MxK6% (BldA) [Mass fraction]99 %Allen Carr MD Work Phone: 1(160)776-[address] [place], [place] [address]Aggvsnaylh71-98-2749 13:29-0500Body mass index (BMI) [Ratio]40.94 kg/m5Eabmi Samuel DO Work Phone: [facility] HospitalNlkqtoaaxs03-47-1566 13:29-0500Body itnerg785.83 kgCorey Samuel DO Work Phone: [facility] HospitalBezkgevekq65-73-2520 13:29-0500Diastolic blood htkbqydc20 mm[Hg]Ha Samuel DO Work Phone: [facility] HospitalRcrmhappwx56-23-6567 13:29-0500Systolic blood luqutpfp622 mm[Hg]Ha Baker DO Work Phone: [facility] HospitalQyhbbfkkpr44-45-2591 13:08-0400Body pvjsia706.56 cmAPRJarek Altman Work Phone: 1(342)176-[address] [place], [place] 5063209-23-2024 13:08-0400 Body mass index (BMI) [Ratio]38.7 kg/m2JUICE Ortiz Anupama Work Phone: [phone])[address]09-23-2024 13:08-0400 Body svakrgoearp60.9 [degF]JUICE Ortiz Anupama Work Phone: [phone] [place], [place] 9963209-23-2024 13:08-0400 Body .51 kgJUICE Altman Work Phone: 1(100)[address]09-23-2024 13:08-0400 Diastolic blood gvcbjcqi02 mm[Hg]JUICE Ortiz Anupama Work Phone: 1(082)[address]09-23-2024 13:08-0400 Heart rate80 /minAPRJarek Ortiz Anupama Work Phone: 1(294)[address]09-23-2024 13:08-0400 SaO2% (BldA) [Mass fraction]98 %JUICE Ortiz Anupama Work Phone: 1(632)[address]09-23-2024 13:08-0400 Systolic blood epjxhqqj741 mm[Hg]JUICE Ortiz Anupama Work Phone: 1(094)[address]08-13-2024 17:54-0400 Body ogswzx603.56 cmOhio[facility]08-13-2024 17:54-0400Body mass index (BMI) [Ratio]37.6 kg/o0JidjynzdjOhiohealth Arthur G.[facility] Center08-13-2024 17:54-0400Body lriciwnftqm69.2 [degF][facility]08-13-2024 17:54-0400Body nkuxcc77.56 kgOhiohealth [facility]08-13-2024 17:54-0400Diastolic blood tufnwvjo28 mm[Hg][facility] 10-10-2023 17:54-0400Heart rate90 /[facility] 10-10-2023 17:54-0400Respiratory rate18 /[facility] 10-10-2023 17:54-6492FwD9% (BldA) [Mass fraction]96 %[facility]08-13-2024 17:54-0400Systolic blood uaaoobdc252 mm[Hg][facility]02-20-2024 11:10-0500Body vaxnhs951.56 cmOhiohealth [facility]02-20-2024 11:10-0500Body mass index (BMI) [Ratio]38.6 kg/m2 [facility]02-20-2024 11:10-0500Body lqinuowipmu12.2 [degF][facility]02-20-2024 11:10-0500Body fzifnp164.05 kg [facility]02-20-2024 11:10-0500Heart rate95 /[facility]02-20-2024 11:10-0500Respiratory rate16 /[facility]02-20-2024 11:10-0942DfI2% (BldA) [Mass fraction]99 % [facility]02-08-2024 09:05-0500Body ihpqng582.02 cmAtemo Swanson Other [facility] Other 02-08-2024 09:05-0500Body mass index (BMI) [Ratio] 38.97 kg/u2ZwzvdLinda Swanson Other noSmartaxi Other 02-08-2024 09:05-0500Body pagfyyitzzq40.1 [degF]Linda Swanson Other [employer] Other 02-08-2024 09:05-0500Body .79 kgLinda Swanson Other [place] Other 02-08-2024 09:05-0500Respiratory rate18 /minLisandroer Sky Other [facility] Other 02-08-2024 09:05-9414BlV2% (BldA) [Mass fraction]99 % Linda Sky Other [place] [facility] Other 12-04-2023 15:40-0500Body fvxizd213.02 cmPamela Mary Other [facility]12-04-2023 15:40-0500 Body mass index (BMI) [Ratio]39.78 kg/g2Roxudo Mary Other [place] [facility] Other 12-04-2023 15:40-0500Body irjakkzlnec51 [degF]Addie Mary Other [place] [facility] Other 12-04-2023 15:40-0500Body ueylju640.88 kgPager Hernandez Other [place] [facility] Other 12-04-2023 15:40-0500Body bpmoav037.87 kgOhiohealth [facility]12-04-2023 15:40-0500Diastolic blood qubtnbrd24 mm[Hg] Addie Mary Other [facility]12-04-2023 15:40-0500 Respiratory rate18 /minPager Hernandez Other [place] Other 12-04-2023 15:40-8303OqI0% (BldA) [Mass fraction]98 % Addie Hernandez Other [place] [facility] Other 12-04-2023 15:40-0500Systolic blood apcfpmvu835 mm[Hg] Addie Hernandez Other [facility]10-17-2023 09:05-0400 Body .02 Markos Swanson Other [employer] Other 10-17-2023 09:05-0400Body mass index (BMI) [Ratio] 38.97 kg/r4FegxjLinda Swanson Other [facility] Other 10-17-2023 09:05-0400Body tsznnmbouzo79.2 [degF]Linda Swanson Other [employer] Other 10-17-2023 09:05-0400Body .79 kgLinda Swanson Other [employer] Other 10-17-2023 09:05-0400Diastolic blood piyvwvan38 mm[Hg] Linda Swanson Other [employer] Other 10-17-2023 09:05-0400Respiratory rate18 /minLinda Swanson Other [employer] Other 10-17-2023 09:05-6123RwL0% (BldA) [Mass fraction]98 % Linda Swanson Other [employer] Other 10-17-2023 09:05-0400Systolic blood kevymavd565 mm[Hg] Linda Swanson Other [employer] Other 06-19-2023 12:00-0400Body cmyrdl415.02 Chiquita Hernandez Other [employer] Other 06-19-2023 12:00-0400Body mass index (BMI) [Ratio] 40.21 kg/o4ShphesAddie Hernandez Other [employer] Other 06-19-2023 12:00-0400Body jsntrddyime37.7 [degF]Addie Hernandez Other [employer] Other 06-19-2023 12:00-0400Body fuyixp825.97 kgAddie Hernandez Other [employer] Other 06-19-2023 12:00-0400Diastolic blood mm[Hg] Addie Hernandez Other [employer] Other 06-19-2023 12:00-0400Respiratory rate18 /minAddie Hernandez Other [employer] Other 06-19-2023 12:00-1098SbM0% (BldA) [Mass fraction]98 % Addie Hernandez Other [employer] Other 06-19-2023 12:00-0400Systolic blood mm[Hg] Addie Hernandez Other [employer] Other 05-05-2023 14:08-0400Body mofirw276.6992 kgDR HA BAKER .[facility] ShawComment on above:Result Comment: This is a corrected report. The previously reported result was: Weight 06/29/2022 Not provided. .Performed By: #### AFPMAT #### [facility] Laboratory [address] [place] [address] Dr. 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)Start: 12-13-2024 End: 34-22-3131Gtmbrk Virgil Mcgrath RNMaternal- Medicine at [facility] NorthComment on above:Hypothyroidism affecting in second trimester (Primary Dx)Start: 12-12-2024 End: 79-74-8818Ufocfrq encounter procedureCorejona Samuel DO Work Phone: noms Timothy OBGYNComment on above:Colposcopy needed after cervical smear; Second trimester ([facility]); 22 weeks gestation of ([facility])Start: 12-12-2024 End: 84-76-2624rictzjgxyvOEXZV FAZIONot AvailableStart: 11-13-2024 End: 18-94-7830Bqzje abstractYosvany Plascencia MD Work Phone: [phone]-Kowcd Medicine at [facility] Start: 11-13-2024 End: 61-70-9895Pyaogzkju encounterCaryn Lopez NP Work Phone: [facility] Timothy OBGYNStart: 11-07-2024 End: 96-50-8320Drrutg flowsheetCaryn Lopez CERTIFIED MEDICATION AIDE Work Phone: [facility] [place] OBGYNStart: 11-07-2024 End: 99-19-7192Eafxil flowsheetCaryn Lopez CERTIFIED MEDICATION AIDE Work Phone: [facility] [place] OBGYNStart: 11-07-2024 End: 62-80-8698Giquarlsj Result EncounterCaryn Lopez NP Work Phone: NOMS External Department UnsolicitedStart: 11-07-2024 End: 60-98-6155Xzvvpeiv Result EncounterCaryn Lopez NP Work Phone: no External Department UnsolicitedStart: 11-07-2024 End: 12-55-6543Fhvzyn outpatient visit 15 minutesCaryn Lopez NP Work Phone: no Timothy OBGYNComment on above:17 weeks gestation of ([facility]); Second trimester ([facility]); History of hyperthyroidism; Well woman exam with routine gynecological exam; Screening, , for anatomic survey ([facility]); Vaginal discharge; Exposure to STDStart: 11-07-2024 End: 45-83-1841Thnrkgk encounter procedureCaryn Lopez NP Work Phone: no HealthcareStart: 11-07-2024 End: 15-39-6857hqbordmpgjDAYDKEFD EBERLYNot AvailableStart: 10-23-2024 End: 65-79-8224Rjyyudrvt department patient visitNO PCP NO PCPProMedica Philadelphia HospitalStart: 10-08-2024 End: 38-66-6589Rzkxfr flowsheetCorey Samuel DO Work Phone: noms [facility] OBGYNStart: 10-08-2024 End: 75-38-5983Cslwzu flowsheetCorey Samuel DO Work Phone: noms Timothy OBGYNStart: 10-08-2024 End: 39-29-0434Kebtfh outpatient visit 15 minutesCorey Samuel DO Work Phone: no [place] OBGYNComment on above:13 weeks gestation of ([facility]); Second trimester ([facility]); Nausea and vomiting in ([facility]); History of hyperthyroidism; Constipation, unspecified constipation typeStart: 10-08-2024 End: 03-22-0097jnbpcgyoakKWIPW FAZIONot AvailableStart: 10-04-2024 End: 65-59-6042Bolnas flowsEstrella Carr MD Work Phone: noMS [place] EndocrinologyStart: 10-04-2024 End: 61-05-3217Otldbl flowsheetAllen Carr MD Work Phone: noms [place] EndocrinologyStart: 10-04-2024 End: 12-40-9372Dxrons outpatient visit 25 minutesAllen Carr MD Work Phone: noms Sergio Endocrinology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 (Primary Dx); Vitamin D deficiency; Encounter for dietary consultation; Thyroid disease during , first trimester (HCC); Hypothyroidism, unspecified typeStart: 10-04-2024 End: 86-15-2027tyqwwwomxaFPPAZ F SABBAGHNot AvailableStart: 10-03-2024 End: 74-64-1257Hhonrgokr Result EncounterCorey Samuel DO Work Phone: noms External Department UnsolicitedStart: 10-03-2024 End: 97-44-2768Xnquisstp Result EncounterCorey Samuel DO Work Phone: noms External Department UnsolicitedStart: 09-19-2024 End: 83-68-8620Dcmhknoyf Result EncounterCorey Samuel DO Work Phone: noms External Department UnsolicitedStart: 09-19-2024 End: 37-24-3069Xdkktigrd Result EncounterCorey Samuel DO Work Phone: noms External Department UnsolicitedStart: 09-06-2024 End: 45-43-0052Mowcnifqe Result EncounterCorey Samuel DO Work Phone: noms External Department UnsolicitedStart: 09-06-2024 End: 53-87-0118Jrhuducsu Result EncounterCorey Samuel DO Work Phone: noms External Department UnsolicitedStart: 09-05-2024 End: 74-81-2328Cbmvsb outpatient visit 5 minutesFamaurao Nurse Noms Bcp ObNOMS BCP OBComment on above:GA: 4o4pByiil: 09-05-2024 End: 19-72-9895dvuoyqqcwhOXXBY FAZIONot AvailableStart: 09-01-2024 End: 94-10-5697Geqdyedtx department patient visitNO PCP NO PCPProMedica Philadelphia HospitalStart: 08-21-2024 End: 23-57-7902Zmfexrcjy Result EncounterCorey Samuel DO Work Phone: noms External Department UnsolicitedStart: 08-21-2024 End: 64-08-3106Xmtcydarf Result EncounterCorey Samuel DO Work Phone: noms External Department UnsolicitedStart: 08-19-2024 End: 40-67-1107Ygxhfvctt Result EncounterCorey Samuel DO Work Phone: noms External Department UnsolicitedStart: 08-19-2024 End: 26-14-7070Tpqyinqer Result EncounterCorey Samuel DO Work Phone: noms External Department UnsolicitedStart: 08-09-2024 End: 95-66-0818Hubqdlhenry Carr MD Work Phone: noms ENDOCRINOLOGYStart: 08-09-2024 End: 32-65-9087Aguewxhenry Carr MD Work Phone: noms ENDOCRINOLOGYStart: 08-09-2024 End: 25-62-5400loxozgmzxbHAJQJ F SABBAGHNot AvailableStart: 08-09-2024 End: 23-98-4125Gkbmsi outpatient visit 25 minutesAllen Carr MD Work Phone: noms ENDOCRINOLOGYComment on above:Alfredo's disease (Primary Dx); Vitamin D deficiency; Encounter for dietary consultation; Class 3 severe obesity due to excess calories without serious comorbidity with body mass index (BMI) of 40.0 to 44.9 in adult (CMS-HCC); Thyroid disease during , first trimester (HCC); Hypothyroidism, unspecified typeStart: 40-42-0835Ryqoaan encounter statusAllen Carr MD Work Phone: noms HealthcareStart: 03-26-2024 End: 24-13-5836Uomhwus encounter procedureCorey Samuel DO Work Phone: [facility] OBComment on above:Encounter for removal of intrauterine contraceptive device (IUD)Start: 03-26-2024 End: 39-64-7650czftgsunclGFWZY TERIONot AvailableStart: 11-20-2023 End: 23-01-5513Vlxbwcp encounter procedureJUICE Altman Work Phone: [facility] Work Phone: Start: 11-20-2023 End: 17-87-6832mkppzvesfoMCHSt. Anthony's Hospital [facility] Work Phone: Start: 11-20-2023 End: 19-55-2574qyrlbmaskeJCNFlint River Hospital Med Center Work Phone: Start: 11-20-2023 End: 40-38-7693Iwecmjr encounter procedureJUICE Altman Work Phone: [facility] Work Phone: Start: 10-10-2023 End: 26-80-9459Jktkqlvv ReferredJUICE Altman Work Phone: [facility] [place] Work Phone: Start: 10-10-2023 End: 95-89-2347dqjujhabpyKhzvda M [facility] Work Phone: Start: 10-10-2023 End: 61-06-5030Utbgkrx encounter procedureUnc Health Phys[facility] Work Phone: Start: 04-18-2023 End: 95-66-0149stbragvugaErwfjuwoaGalion [facility] Work Phone: Start: 04-18-2023 End: 24-34-1668Vsyejys encounter procedureUnc Health Physician [facility] Work Phone: start: 04-06-2023 End: 20-19-9561ddxlceiiicMlotw Keller Other [employer] Other Start: 98-84-1446Pnthym outpatient visit 25 minutes Linda GhulamlerFPG Urgent Care ClydeStart: 02-02-2023 End: 01-98-7559bqtswbcfvnXxyyz Keller Other [employer] Other Start: 32-17-0593Hqbdejenz encounterAmber GhulamlerFPG Urgent Care Lawn RoadStart: 01-30-2023 End: 64-08-4680gezktcqogkMcwxjh Mary Other [facility] Other Start: 85-93-2453Mrhnat outpatient visit 15 minutes Addie DydelbertFPG Urgent Care ClydeStart: 01-30-2023 End: 02-55-2035Wxawvkr encounter procedureFirmountain view regional medical center [facility] Work Phone: Start: 14-20-6154Bojlgp outpatient visit 15 minutes Linda SkyFPG Urgent Care ClydeStart: 12-13-2022 End: 51-51-4226Hmtlfkj encounter procedureAPRN Linda Swanson Work Phone: [facility] Work Phone: Start: 12-13-2022 End: 06-24-3522jrstoytgauIucjo Michela SwansonOhiohealth [facility] Work Phone: Start: 08-15-2022 End: 49-70-8276oyqndlakrnTwudql Mary Other [facility] Other Start: 26-49-8634Cbanvb outpatient new 20 minutes Addie DymondFPG Urgent Care ClydeStart: 07-26-2022 End: 02-09-5251tlkzhlpfgvVO HA SAMUEL .Facility:D3Xdfpq: 06-27-2022 End: 76-98-3924fzejaxqxemGJ HA SAMUEL .Facility:D6Ahnqc: 06-27-2022 End: 89-22-6144fipnllucjqRT HA SAMUEL .Facility:D7Nhdax: 06-10-2020 End: 93-64-5317cikbmzkssjQhke Malina Work Phone: COVID Vaccine [place] Procedures DateProcedureProcedure DetailPerforming ClinicianStart: 84-43-5965KXYVGNKUZE Ha Samuel DO Work Phone: Start: 82-25-8959Dbgik dip stick/tablet rgnt non-auto w/o micrscpCorey Samuel DO Work Phone: Start: 28-89-5623LXCITUBYY VAGINITIS (HTRX)Caryn Lopez NP Work Phone: Start: 10-95-7315Usdiu dip stick/tablet rgnt non-auto w/o micrscpCaryn Lopez CERTIFIED MEDICATION AIDE Work Phone: Start: 88-36-1361VFC,APTIMA HPV,AGE GDLNCaryn Lopez CERTIFIED MEDICATION AIDE Work Phone: Start: 21-03-5969Dhdsczxmpeq observation [Identifier] in Cervix by Cyto Celeste Plascencia MD Work Phone: Start: 64-07-0131Rychg dip stick/tablet rgnt non-auto w/o micrscpCorey Samuel DO Work Phone: Start: 56-41-6443FLFZVTD TOLERANCE 3 HOURCorey Samuel DO Work Phone: Start: 80-91-1020MFH CBC WITH AUTO DIFFCorey Samuel DO Work Phone: Start: 84-50-3686EYP CBC WITH AUTO DIFFCorey Samuel DO Work Phone: Start: 43-15-2308Ygkyh dip stick/tablet rgnt non-auto w/o micrscpCorey Samuel DO Work Phone: Start: 57-13-0534QSH PREG QUANT HCGCorey Samuel DO Work Phone: Start: 00-65-8821OJX PREG QUANT HCGCorey Samuel DO Work Phone: Start: 68-78-8943KNB REMOVALCorey Samuel DO Work Phone: Start: 03-86-8160DEQHB Antigen (POC)JUICE Feldmanmichelle Altman Work Phone: Start: 18-72-7851Fioba Strep (POC)UX DESIGN LEAD Dianamichelle Altman Work Phone: Start: 15-80-4376Ybdps chest X-rayAPRJarek Altman Work Phone: Start: 20-02-8957Jgxld cultureAPRJarek Diana Anupama Work Phone: Start: 11-34-1149YAUBK/Influenza Antigen (POC)Start: 12-78-2231L-ray of left ankleAPRN Linda Swanson Work Phone: Plan of Treatment DateCare ActivityDetailAuthorStart: 52-80-6382Bexawhiqw for malignant neoplasm of cervixPap SmearProMagruder HospitalOptimum Interactive USA SystemStart: 50-46-4417Ecuyy BMI Screening Adult BMI ScreeningProGerman Hospital SystemStart: 07-28-8051Zzsuuaz Screening Tobacco ScreeningProGerman Hospital SystemStart: 12-13-2025 End: 35-49-0069JA MFM with or without consultUS MFM with or without consult Imaging Routine Hypothyroidism affecting in second trimester Expected: 12/13/2025 (Approximate), Expires: 12/13/2025ProDataresolve Technologiesca Work Phone: comment on above:Expected: 12/13/2025 (Approximate), Expires: 12/13/2025Start: 53-36-2457Wgrjh BMI ScreeningAdult BMI Screening [facility] SystemStart: 01-21-2025 End: 24-50-5787Ugzsnho encounter btchkjwuk97/25/2025 2:15 PM EST Appointment [facility] - Ultrasound [address] [place] [address] VatDywlod [facility] - UltrasoundStart: 01-09-2025 End: 00-56-8866Bbjefks encounter ivnblxvdw80/13/2025 10:50 AM EST Routine [facility] ANTHONY [address] [place] [place] [address] Karla Matthews PA [address] [place] [address] SUNITA GONSALVEStart: 12-19-2024 End: 72-26-2197Zbavebv encounter yahrkdxrz50/23/2025 11:30 AM EDT Office Visit [facility] [address] [place] [address] Allen Carr MD [address] [place] [address] SUNITA Bhakta EndocrinologyStart: 12-13-2024 End: 43-03-7488Vmfljlm encounter pwvwxaoua17/17/2025 8:45 AM EDT Office Visit M[facility]- Medicine at [facility] [address] [place] [phone] Kenji Plascencia MD [address] [place] [address] [facility] 12-13-2024 End: 33-15-6903Gcdjwlw encounter hbhopvdbu84/17/2025 7:30 AM EDT Appointment [facility] - [facility] [address] [place] [address] [phone] [facility] ImagingStart: 12-12-2024 End: 92-87-9799Tkyufjn encounter pyesarxgz18/16/2025 11:20 AM EDT Routine [facility] [address] [place] [place] [id number] Ha Baker, DO [address] [place] [address] [facility] [place]: 12-12-2024 End: 09-79-9557Bgoglkg encounter isfeksxsk94/16/2025 9:30 AM EDT Procedure Visit [facility] [address] [facility] [place] [id number] Ha Baker, DO [address] [place] [address] [facility]: 11-14-2024 End: 42-79-6291Oocytlt encounter ejmavrduo87/18/2025 11:20 AM EDT Office Visit [facility] [address] [place] [address] Allen Carr MD [address] [place] [address] SUNITA Bhakta EndocrinologyStart: 11-07-2024 End: 08-48-5052Saarx fetoprotein, maternalAlpha fetoprotein, maternal Lab Routine 17 weeks gestation of ([facility]) Second trimester ([facility]) Expected: 11/07/2024 (Approximate), Expires: 12/07/2024[facility] Comment on above:Expected: 11/07/2024 (Approximate), Expires: 12/07/2024Start: 11-07-2024 End: 91-91-4842DX for pregnancyUS OB 14+ weeks anatomy scan Imaging Routine Screening, , for anatomic survey ([facility]) Expected: 11/07/2024, Expires: 02/06/2025[facility] HealthcareComment on above:Expected: 11/07/2024, Expires: 02/06/2025Start: 11-07-2024 End: 87-65-5515Iepfnyy encounter procedureNOMS [place] OBGYNComment on above: ArrivedStart: 10-10-6697Iwkohsdka vaccinationInfluenza VaccineNorwalk Memorial Hospital SystemStart: 10-08-2024 End: 00-59-4018Fnocgtj encounter procedureNOMS BCP OBComment on above:Arrived Start: 10-04-2024 End: 87-71-5718Fcuwspskjym [Units/volume] in Serum or PlasmaTSH Lab Routine Alfredo's disease Thyroid disease during , first trimester (HCC) Expected: 10/04/2024 (Approximate), Expires: 10/04/2025[facility] HealthcareComment on above:Expected: 10/04/2024 (Approximate), Expires: 10/04/2025Start: 10-04-2024 End: 58-21-7698Kpgmqrpzg (T4) free [Mass/volume] in Serum or PlasmaT4, free Lab Routine Alfredo's disease Thyroid disease during , first trimester (HCC) Expected: 10/04/2024 (Approximate), Expires: 10/04/2025[facility] Comment on above:Expected: 10/04/2024 (Approximate), Expires: 10/04/2025Start: 10-04-2024 End: 78-77-6390Olsdejeujvardvfl (T3) Free [Mass/volume] in Serum or PlasmaT3, free Lab Routine Alfredo's disease Thyroid disease during , first trimester (HCC) Expected: 10/04/2024 (Approximate), Expires: 10/04/2025[facility] Work Phone: Comment on above:Expected: 10/04/2024 (Approximate), Expires: 10/04/2025Start: 10-04-2024 End: 35-61-3656Jbleflv encounter procedureNOMS SH ENDOCRINOLOGYComment on above: ArrivedStart: 09-05-2024 End: 29-57-8123UBI/RhABO/Rh Lab Routine Missed menses , unspecified gestational age ([facility]) Expected: 09/05/2024 (Approximate), Expires: 09/05/2025[facility] HealthcareComment on above:Expected: 09/05/2024 (Approximate), Expires: 09/05/2025Start: 09-05-2024 End: 49-07-8842Spnju type and Indirect antibody screen panel - BloodType and screen Lab Routine Missed menses , unspecified gestational age ([facility]) Expected: 09/05/2024 (Approximate), Expires: 09/05/2025[facility] Work Phone: comment on above:Expected: 09/05/2024 (Approximate), Expires: 09/05/2025Start: 09-05-2024 End: 07-09-2243Lmxma of abuse panel - Urine by Screen methodRapid drug screen, urine Lab Routine , unspecified gestational age ([facility]) Encounter for supervision of normal first in first trimester ([facility]) Expected: 09/05/2024 (Approximate), Expires: 09/05/2025[facility] HealthcareComment on above: Expected: 09/05/2024 (Approximate), Expires: 09/05/2025Start: 09-05-2024 End: 36-10-0634haimykwdvx45/10/2025 1:30 PM EDT Initial [facility] [address] [place] [address] NOMS BCP OBStart: 09-05-2024 End: 84-63-5021Sbsntghvtjdr / ancillary services jajwuvqfyz19/10/2025 1:00 PM EDT Ancillary Procedure [facility] [address] [place] [address] [facility]S BCP OBStart: 08-09-2024 End: 04-70-4956Qkyhiancqid [Units/volume] in Serum or PlasmaTSH Lab Routine Alfredo's disease Thyroid disease during , first trimester ([facility]) Expected: 08/09/2024 (Approximate), Expires: 08/09/2025[facility] HealthcareComment on above:Expected: 08/09/2024 (Approximate), Expires: 08/09/2025Start: 08-09-2024 End: 97-66-5653Lkudeonhs (T4) free [Mass/volume] in Serum or PlasmaT4, free Lab Routine Alfredo's disease Thyroid disease during , first trimester (HCC) Expected: 08/09/2024 (Approximate), Expires: 08/09/2025[facility] Comment on above:Expected: 08/09/2024 (Approximate), Expires: 08/09/2025Start: 08-09-2024 End: 91-44-8526Eurhvohxzqinfdux (T3) Free [Mass/volume] in Serum or PlasmaT3, free Lab Routine Alfredo's disease Thyroid disease during , first trimester (HCC) Expected: 08/09/2024 (Approximate), Expires: 08/09/2025[facility] Work Phone: Comment on above:Expected: 08/09/2024 (Approximate), Expires: 08/09/2025Start: 38-31-0609Fcmjidbt identified in Urine by Culture [facility] Hospitaltart: 80-37-2970Jpixm microalbumin profile DTAP,TDAP,TD (2 - Td)[facility]: 98-05-6373PMY TESTINGPAP TESTING [facility]tart: 62-16-4635Fwkxfdleh vaccinationINFLUENZA (Season Ended) [facility]: 21-52-1735MRqF,Tdap and Td Vaccines (2 - Td or Tdap) DTaP,Tdap and Td Vaccines (2 - Td or Tdap)[facility]: 47-42-3380Cixaeyspq for malignant neoplasm of cervixPap SmearFirstHealth Moore Regional Hospital - Richmondtart: 69-73-0327Pkkvm BMI Follow Up PlanAdult BMI Follow Up PlanFirstHealth Moore Regional Hospital - Richmondtart: 39-88-6469DZLOFSKTE C SCREENINGHEPATITIS C SCREENING [facility] Hospitaltart: 23-11-9841AKT SCREENINGHIV SCREENINGOhiohealth [facility] Start: 02-15-9840Imofh depression screening assessmentDEPRESSION SCREENING [facility]tart: 52-55-9631Aszulcu ScreeningTobacco Screening [facility]inte HospitalBacteria identified in Urine by CultureUrine culture Microbiology Routine Missed menses Ordered: 09/05/2024[facility] HealthcareComment on above:Ordered: 09/05/2024BC W Auto Differential panel - BloodCBC and differential Lab Routine Missed menses , unspecified gestational age ([facility]) Ordered: 09/05/2024[facility] HealthcareComment on above:Ordered: 09/05/2024 CHLAMYDIA TRACHOMATIS (GENITO/STI)CHLAMYDIA TRACHOMATIS (GENITO/STI) Lab Routine Vaginal discharge Ordered: 11/07/2024[facility] HealthcareComment on above:Ordered: 11/07/2024ytology Cervical or vaginal smear or scraping studyPap Smear Pathology and Cytology Routine Well woman exam with routine gynecological exam Ordered: 11/07/2024[facility] HealthcareComment on above:Ordered: 11/07/2024Hemoglobin A1c/Hemoglobin.total in BloodHemoglobin A1c Lab Routine Missed menses , unspecified gestational age ([facility]) Ordered: 09/05/2024[facility] HealthcareComment on above:Ordered: 09/05/2024Hepatitis B virus surface Ag [Presence] in Serum or Plasma by ImmunoassayHepatitis B surface antigen Lab Routine Missed menses , unspecified gestational age ([facility]) Ordered: 09/05/2024[facility] HealthcareComment on above:Ordered: 09/05/2024Hepatitis C virus Ab [Presence] in Serum or Plasma by ImmunoassayHepatitis C antibody Lab Routine Missed menses , unspecified gestational age ([facility]) Ordered: 09/05/2024[facility] HealthcareComment on above:Ordered: 09/05/2024HIV-1/HIV-2 antigen/antibody combination immunoassayHIV-1 and HIV-2 antibodies Lab Routine Missed menses , unspecified gestational age ([facility]) Ordered: 09/05/2024[facility] HealthcareComment on above:Ordered: 09/05/2024Human papilloma virus DNA [Presence] in Unspecified specimen by Probe with amplificationHPV DNA probe, amplified Microbiology Routine Well woman exam with routine gynecological exam Ordered: 11/07/2024[facility] HealthcareComment on above:Ordered: 11/07/2024 Neisseria gonorrhoeae DNA [Presence] in Unspecified specimen by NICHOLE with probe detectionNeisseria gonorrhea DNA probe, direct Lab Routine Vaginal discharge Ordered: 11/07/2024[facility] HealthcareComment on above:Ordered: 11/07/2024Reagin Ab [Presence] in Serum by RPRRPR Lab Routine Missed menses , unspecified gestational age ([facility]) Ordered: 09/05/2024[facility] HealthcareComment on above: Ordered: 09/05/2024Rubella antibody, IgGRubella antibody, IgG Lab Routine Missed menses , unspecified gestational age ([facility]) Ordered: 09/05/2024[facility] HealthcareComment on above:Ordered: 09/05/2024 End: 84-83-5762VMNL-COVID VACCINE 1ST DOSE APPTSARS-COVID VACCINE 1ST DOSE APPT Procedures Routine 1 Occurrences starting 06/10/2020 until 08/09/2020leveland ClinicComment on above:1 Occurrences starting 06/10/2020 until 08/09/2020 SURESWAB(R) ADVANCED VAGINITIS PLUS, TMASURESWAB(R) ADVANCED VAGINITIS PLUS, TMA Pathology and Cytology Routine Exposure to STD Ordered: 11/07/2024[facility] Work Phone: comment on above:Ordered: 11/07/2024XR Chest [facility] Immunizations Immunization DateImmunizationNotesCare RzhrqffxLjhvtqfp29-38-4660vpvktne toxoid, reduced diphtheria toxoid, and acellular pertussis vaccine, adsorbedAhcherri Carr MD Work Phone: [facility] Payers DatePayer CategoryPayerPolicy ID2025Medicaid (Managed Care)[facility] [employer] [id number] 2025[facility] Member Subscriber Plan / Payer (Effective 2024-Present) Name: Brittnee Smith Relation to Subscriber: Self Name: Brittnee Smith Payer ID: [id number] (NAIC) Group ID: Not on file Type: Not on file Address: [address] [id number] Kefk-[id number] 2019Private Health InsuranceAETNA [place] PPO [id number] 2018-Present [id number] Health InsuranceAETNA AETNA PPO [id number] 2018-Present [id number] 2.0.1.127320.3.57[id number] 2.0.1.250556.3.57[id number] 2.840.1.218327.3.57[id number] 2.0.1.738192.3.57[id number] 2.0.1.549114.3.57[id number] 2.840.1.355766.3.57[id number] 2..840.1.454170.3.57[id number] 2.16.840.1.541003.3.57[id number] 2.16.840.1.048521.3.57[id number] 2.16.840.1.215730.3.57[id number] 2.840.1.463972.3.57[id number] 2.840.1.320192.3.57[id number] 2.0.1.259176.3.57[id number] 2.840.1.170997.3.57[id number] 2.840.1.21[id number] 2.840.1.825548.3.579.2.531 [id number] 2.0.1.7[id number] 2.0.1.993337.3.579.2.531 Social History DateTypeDetailFacilityStart: 07-02-2018 End: 10-59-4728Omdlpiu smoking status NHISNever smokerWilson Memorial Hospitaltart: 07-02-2018 End: 24-13-8399Wfiqews use and exposureNever usedProtestant Hospitaltart: 07-02-2018 End: 15-11-5819Ymdhnwu intakeCurrent drinker of alcohol (finding)[facility] Hospitaltart: 06-53-4406Uvw Assigned At BirthNot on fileProtestant Hospitaltart: 08-07-2023 End: 07-92-2369Aee Assigned At [facility]tart: 88-94-4756Ueo Assigned At [facility]tart: 08-07-2023 End: 19-84-4588Boikjztkl beverage intakeNorwalk Memorial Hospital SystemStart: 09-04-2022 Alcohol CommentAlcohol: 1 or 2 drinks, 2 to 4 times a month; Caffeine: 1 can /weekAC[facility]IA HEALTHCARE HealthcareStart: 98-02-4638Mlavbf identityIdentifies as female gender (finding)[facility]Start: 98-57-6163Xcoafx orientationHeterosexual (finding)[facility] HospitalStart: 03-78-8548QzxqstwseWHGT HealthcareStart: 11-14-2024 End: 81-61-5946Sczltabfo beverage intakeEx-drinker (finding)[facility]tart: 17-11-9603OlsnbuugbKcfrwlpVfoEagsjw Health SystemStart: 10-02-2014 SexFemale (finding)[facility] Functional Status ZeehQyfdzayfnvOyhgqaKeiqlgvl85-59-0045Dvemdjp Health Questionnaire 2 item (PHQ- 2) [Reported][facility] Clinical Notes 06-10-2020 to 12-13-2024 Note Date & ZqwbJkiuXayvudoc79-18-0754 History of Present illness Narrative* Kenji Plascencia [...] mcg of Synthroid. 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 Previous 3 pregnancies [...] and the other consultants, we search on [employer] and all the available care everywhere [facility] I did review all the imaging studies of the patient available on EMR, ordered by the primary care physician and the other biztalk consultant HABITS: Patient activity no restrictions, diet [...] patient is in complete care of her egg pasteurizer. Patient does have ultrasound scheduled with us [...] Yes Have you been seen here at [facility] in a previous ? Yes Recent ER visits or hospitalizations? No Bring blood sugar log or meter with you today? (Please bring them with you for every visit at [facility]) N/A Flu vaccine (Dec-April)? N/A Any concerns that you would like me to mention to the provider today? No documented in this encounterC[facility] Clinic [facility] Hospital10-16-2025 History of Present illness Narrative* Calista Khan LPN - 12/12/2024 9:30 AM EDTAssociated Order(s): Colposcopy Post-Procedure Diagnose(s): Colposcopy needed after cervical smear; Second trimester ([facility]); 22 weeks gestation of ([facility]) Reason for Appointment: Patient ID: Brittnee Smith [...] 11/16/2017 Unable to comply with treatment 07/26/2022 ([facility]) 11/28/2017 Exposure to STD 05/31/2023 Encounter for weight management 05/31/2023 Dermatitis, atopic 08/04/2005 Allergic rhinitis 02/18/2000 Asthma ([facility]) 02/18/2000 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 Exam conducted with a analyst present. Vitals: Estimated body mass index is 41.81 kg/m as calculated from the following: Height as of 10/04/24: 5' 3 . Weight as of this encounter: 236 lb. BP: 108/62 Patient's last menstrual period was 06/26/2024. ASSESSMENT & PLAN Assessment/Plan Encounter Diagnosis: ICD-10-CM 1. Colposcopy needed after cervical smear R87.619 2. Second trimester ([facility]) Z34.92 3. 22 weeks gestation of ([facility]) Z3A.22 POCT urinalysis dipstick manually resulted [...] weeks of levels. Patient is scheduled with [facility] for anatomy scan tomorrow. Follow Up: [...] TOOTH EXTRACTION 07/2013 teeth documented in this encounterSt. Lukes Des Peres HospitalItzkobpmyu84-17-1534 Telephone encounter Note* Telephone Encounter - Caryn Lopez NP - 11/13/2024 4:56 PM EDT Please schedule for colposcopy due to PAP ASCUS and HPV positive [facility] Healthcare Work Phone: [phone] 122-758509-17-2025 Miscellaneous Notes* Telephone Encounter - Caryn Lopez NP - 11/13/2024 4:56 PM EDT Please schedule for colposcopy due to PAP ASCUS and HPV positive documented in this encounterSt. 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 Exam conducted with a analyst present. Vitals: Estimated body mass index is 40.64 kg/m as calculated from the following: Height as of 10/04/24: 5' 3 . Weight as of this encounter: 229 lb 6.4 oz. BP: 100/72 Patient's last menstrual period was 06/26/2024. ASSESSMENT & PLAN ICD-10-CM 1. 17 weeks gestation of ([facility]) Z3A.17 POCT urinalysis dipstick manually resulted Alpha fetoprotein, maternal Alpha fetoprotein, maternal 2. Second trimester ([facility]) Z34.92 POCT urinalysis dipstick manually resulted Alpha fetoprotein, maternal Alpha fetoprotein, maternal 3. History of hyperthyroidism Z86.39 4. Well woman exam with routine gynecological exam Z01.419 Pap Smear HPV DNA probe, amplified 5. Screening, , for anatomic survey ([facility]) Z36.89 US OB 14+ weeks anatomy scan US OB 14+ weeks anatomy scan 6. Vaginal discharge N89.8 CHLAMYDIA TRACHOMATIS (GENITO/STI) Neisseria gonorrhea DNA probe, direct 7. Exposure to STD Z20.2 SURESWAB(R) ADVANCED VAGINITIS PLUS, TMA Return OB/Annual Exam: Patient presents today for a annual exam/routine obstetrics appointment. Patient is currently 04m8mdugaglpn. Patient states she is doing well but [...] Synthroid at 300mcg per Dr. Carr her Credit Risk Modeler. Will also refer to [facility] Patient was in the ER for a toe infection and was treated she was having high blood pressure there and she is seeing [facility] for about 1 1/2 to 2 weeks. Referral will be sent to [facility] given her history of hypothyroidism. Orders [...] of: Caryn Lopez NP documented in this encounterSt. 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 Exam conducted with a analyst present. Vitals: Estimated body mass index is 40.35 kg/m as calculated from the following: Height as of 25: 5' 3 . Weight as of this encounter: 227 lb 12.8 oz. BP: 108/70 Patient's last menstrual period was 06/26/2024. ASSESSMENT & PLAN ICD-10-CM 1. 13 weeks gestation of ([facility]) Z3A.13 POCT urinalysis dipstick manually resulted 2. Second trimester ([facility]) Z34.92 POCT urinalysis dipstick manually resulted [...] or undercooked meat, and stay away from [facility]. Patient has been consulted regarding any [...] of: Ha Baker DO documented in this encounterSt. 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 Acute bronchitis 05/13/2024 Acute pharyngitis 09/10/2009 Acute streptococcal pharyngitis 05/13/2024 Encounter for childhood immunizations appropriate for age 0708/30/2007 Obesity affecting , antepartum ([facility]) 11/13/2018 Hyperthyroidism 11/28/2017 Resolved Ambulatory Problems Diagnosis Date Noted Anemia of ([facility]) 04/24/2018 -induced hypertension ([facility]) 04/29/2018 Past Medical History: Diagnosis Date [...] dipstick manually resulted , unspecified gestational age ([facility]) - Type and screen; Future - ABO/Rh; Future - CBC and differential - Hemoglobin A1c - RPR - Rubella antibody, IgG - Hepatitis B surface antigen - Hepatitis C antibody - HIV-1 and HIV-2 antibodies - Rapid drug screen, urine; Future Encounter for supervision of normal first in first trimester ([facility]) - Rapid drug screen, urine; Future Nurse [...] or undercooked meat, and stay away from [facility]. Patient has also been advised to [...] by: Marcie Flannery LPN documented in this encounterSt. Lukes Des Peres HospitalIjfibgxfrj67-24-1060 History of Present illness Narrative* Allen Carr [...] (BMI) of 40.0 to 44.9 in adult ([facility]) Thyroid disease during , first trimester (HCC) - Synthroid 300 MCG tablet; Take 1 tablet (300 mcg) by mouth Daily - T3, free; Future - T4, free; Future - TSH; Future She just found she is , we will check free T4 free T3 to keep it in the high-normal. Follow up in about 2 months (around 10/09/2024). documented in this encounterSt. Lukes Des Peres HospitalSsudxpeoqv53-66-4237 History of Present illness Narrative* Brandy Galeana [...] nursing note reviewed. Exam conducted with a analyst present. Vitals: Estimated body mass index is [...] given: yes Instructions and paperwork completed: yes [place] protocol: Patient states understanding of procedure being [...] of: Ha Baker DO documented in this encounterSt. Lukes Des Peres HospitalWvutehtpap54-40-7033 Evaluation note* Encounter Date Diagnosis Assessment Notes [...] treatment plan. Patient left in stable condition. Veodin Other 12-04-2023 Evaluation note* Encounter Date Diagnosis [...] the ER for worsening symptoms or concerns Veodin Other 10-17-2023 Evaluation note* Encounter Date Diagnosis [...] understanding and is agreeable to treatment plan Veodin Other 06-19-2023 Evaluation note* Encounter Date Diagnosis [...] Tylenol as needed for aches or pains. Veodin Other 04-14-2021 NotePatient Outreach (COVAFW) BRITTNEE SMITH ([id number]) 1995 F Date Time Provider Department 06/10/20 JOSE A STEWART COVJUDYW During your visit today, we recorded the following information about you: Allergies As of Date: 06/10/2020 Noted Allergy Reaction SULFA (SULFONAMIDE ANTIBIOTICS) 07/02/2018 2 - Rash Date Reviewed: 07/02/2018 Reviewed by: Sakina PickeringOK) - Fully Assessed Order(s):SARS-COVID VACCINE 1ST DOSE APPT [[id number]] Order #: [id number] FUTURE SARS-COVID VACCINE 1ST DOSE APPT [[id number]] Order #: [id number] Prescriptions as of 06/10/2020 Sig: SYNTHROID 125 MCG TABLET Take 2 tablets by mouth once * Problem List As Of Date: 06/10/2020 (None) Encounter Status:Closed by APRIL NIXON on 06/15/20BannerEvaluation noteNo assessment information availableChildren'S Hospital For Rehabilitation Work Phone: Evaluation noteNo InformationNort Peak Other Evaluation note* Diagnosis Onset Date Resolution Status Acute UTI acute [facility] Work Phone: Evaluation note* Diagnosis Onset Date Resolution Status Acute UTI acuteBronchitisacute [facility] Work Phone: Evaluation note* Diagnosis Encounter for removal of intrauterine contraceptive device (IUD) documented in this encounter [facility] HealthcareEvaluation note* Diagnosis Alfredo's disease- Primary Chronic lymphocytic thyroiditis Vitamin D deficiency Encounter for dietary consultation Class 3 severe obesity due to excess calories without serious comorbidity with body mass index (BMI) of 40.0 to 44.9 in adult ([facility] Thyroid disease during , first trimester ([facility]) Hypothyroidism, unspecified type documented in this encounter [facility] HealthcareEvaluation note* Diagnosis Missed menses , unspecified gestational age ([facility]) Encounter for supervision of normal first in first trimester ([facility]) documented in this encounter [facility] HealthcareEvaluation note* Diagnosis Alfredo's disease- Primary Chronic lymphocytic thyroiditis Vitamin D deficiency Encounter for dietary consultation Thyroid disease during , first trimester ([facility]) Hypothyroidism, unspecified type documented in this encounter [facility] HealthcareEvaluation note* Diagnosis 13 weeks gestation of ([facility]) Second trimester ([facility]) state, incidental Nausea and vomiting in ([facility]) Unspecified vomiting of , unspecified as to episode of care History of hyperthyroidism Constipation, unspecified constipation type documented in this encounter [facility] HealthcareEvaluation note* Diagnosis 17 weeks gestation of ([facility]) Second trimester ([facility]) state, incidental History of hyperthyroidism Well woman exam with routine gynecological exam Routine gynecological examination Screening, , for anatomic survey ([facility]) Encounter for anatomic survey Vaginal discharge Leukorrhea, not specified as infective Exposure to STD documented in this encounter [facility] HealthcareEvaluation note* Diagnosis Colposcopy needed after cervical smear Second trimester ([facility]) state, incidental 22 weeks gestation of ([facility]) documented in this encounter [facility] HealthcareEvaluation note* Diagnosis 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 documented in this encounterSt[facility] HospitalInstructionsNot on filedocumented in this encounterProGerman Hospital SystemInstructionsNot on filedocumented in this encounterProGerman Hospital SystemInstructionsNot on filedocumented in this encounterNorwalk Memorial Hospital System Summary Purpose Family History [...] or prosecute any alcohol or drug abuse patient.[facility] INFORMATION SOURCE (unrecogn ized section and content) DATE CREATED AUTHOR 06/17/2020 [facility] DATE CREATED AUTHOR AUTHOR'S ORGANIZ ATION 08/05/2022 [facility] DATE CREATED AUTHOR AUTHOR'S ORGANIZ ATION 11/28/2023 [facility] DATE CREATED AUTHOR AUTHOR'S ORGANIZ ATION 10/25/2024 [facility] DATE CREATED AUTHOR AUTHOR'S ORGANIZ ATION 12/14/2024 [facility] DATE CREATED AUTHOR AUTHOR'S ORGANIZ ATION 12/15/2024 [facility] REASON FOR VISIT (unrecogniz ed section and [...] Date No Pcp, [place] [address] PCP - GeneralFamily Medicine10/23/24Team MemberRelationshipSpecialtyStart DateEnd Date No Pcp, [place] [address] PCP - GeneralFamily Medicine10/23/24Team MemberRelationshipSpecialtyStart DateEnd Date No Pcp, [place] [address] PCP - GeneralFamily Medicine10/23/24 Goals (unrecognized section [...] BE BASED ON THE PRIMARY CLINICAL RECORDS. [facility] [employer] [facility]. provides no warranty or guarantee of the accuracy or completeness of information in this document.
[2025-02-05 11:15] VITALS: BP 122/57; PULSE 90
[2025-02-05 11:33] LABS: Glucose Urine UA NEGATIVE (NEGATIVE)
== END 2025-02-05 13:15 | disposition home or self-care (01) ==
PROVIDERS: Admitting Provider Obstetrics & Gynecology; Visit Provider Obstetrics & Gynecology
DX: O99.891 Other specified diseases and conditions complicating pregnancy (principal); R10.9 Unspecified abdominal pain; Z3A.00 Weeks of gestation of pregnancy not specified
CPT/HCPCS: 81003; G0378; G0379

== ENCOUNTER 2025-02-13 10:51 | Outpatient (OUT) | payer OTHER, SELFPAY ==
--- OUTSIDE RECORDS SUMMARY | 2025-02-07 10:20 | XMS_ITS | Encounter Summary ---
Author Organization [facility] Address [address] [place] [address] Care Team Providers Care Advertising Representative Name Role Phone Unavailable Primary Care Provider Unavailabl e Reason for Visit * ReasonCommentsHashimoto's Thyroiditis Encounter Details DateTypeDepartmentCare Team (Latest Contact Info)Gvjxxjtlvgg95/12/2025 10:20 AM ESTOffice Visit [facility] [address] [place] [address] Allen Carr MD [address] [place] [address] Alfredo's disease (Primary Dx); Hypothyroidism, maternal, antepartum, third trimester (HCC); Vitamin D deficiency; Encounter for dietary consultation; Class 3 severe obesity due to excess calories without serious comorbidity with body mass index (BMI) of 40.0 to 44.9 in adult ([facility]) Social History Tobacco UseTypesPacks/DayYears UsedDateSmoking Tobacco: NeverSmokeless Tobacco: Never Tobacco Cessation:Counseling Given: Not Answered Alcohol UseStandard Drinks/WeekCommentsYes2 (1 standard drink = 0.6 oz pure alcohol)Alcohol: 1 or 2 drinks, 2 to 4 times a month; Caffeine: 1 can /weekPHQ-2 AnswerDate RecordedPatient Health Questionnaire-2 Wpabk645 Estimated Date of EontqaffBrwlhwayHyw16/13/2026Based on UltrasoundSex and Gender InformationValueDate RecordedSex Assigned at FmdnlRdnxyx21/30/2023 8:23 AM EDT Legal DjjZqkziu92/15/2023 7:11 PM EDTGender VenqkeksApvnhu11/30/2023 8:23 AM EDT Sexual JimzzozehvcPjwhrwfy56/30/2023 8:23 AM EDTdocumented as of this encounter Last Filed Vital Signs Vital SignReadingTime TakenCommentsBlood Vetlabhm620/7002/07/2025 10:32 AM EST Qajqw772202/07/2025 10:32 AM ESTTemperature--Respiratory Zxov753404/10/2024 10:32 AM ESTOxygen Acypqwmuvr93%02/07/2025 10:32 AM ESTInhaled Oxygen Concentration-- Agtprd022 kg (240 lb 9.6 oz)02/07/2025 10:32 AM BMGDwydnw730 cm (5' 3 ) 02/07/2025 10:32 AM [...] FOR 10 DAYS Blood Glucose Monitoring Suppl ([employer] Glucometer) w/Device kit 1 kit, Does not [...] (BMI) of 40.0 to 44.9 in adult ([facility]) Diet and exercise reviewed with the patient Follow up in about 6 months (around 08/08/2025). documented in this encounter Plan of Treatment DateTypeDepartmentCare Team (Latest Contact Info)Erdxdrjvmax33/22/2025 9:00 AM ESTAncillary Procedure [facility] [address] [place] [address] 02/26/2025 10:40 AM ESTRoutine [facility] [address] [place] [address] Tess Lopez, KALIE [address] [place] [address] 07/04/2025 10:10 AM EDTOffice Visit [facility] [address] [place] [address] Allen Carr MD [address] [place] [address] NameTypePriorityAssociated DiagnosesOrder ScheduleT3, freeLabRoutine Alfredo's disease Expected: [...] (BMI) of 40.0 to 44.9 in adult ([facility]) documented in this encounter
--- OUTSIDE RECORDS SUMMARY | 2025-02-13 09:00 | XMS_ITS | Encounter Summary ---
Author Organization [facility] Address [address] [place] [address] Care Team Providers Care Plate Filler Name Role Phone Unavailable Primary Care Provider Unavailabl e Reason for Visit * ReasonCommentsRoutine Visit Encounter Details DateTypeDepartmentCare Team (Latest Contact Info)Lokmdjhumvi33/18/2025 9:00 AM ESTRoutine [facility] [address] [place] [address] Karla Matthews PA [address] [place], [facility] Third trimester ([facility]); 31 weeks gestation of ([facility]); Hypothyroidism, unspecified type Social History Tobacco UseTypesPacks/DayYears UsedDateSmoking Tobacco: NeverSmokeless Tobacco: NeverAlcohol UseStandard Drinks/WeekCommentsYes2 (1 standard drink = 0.6 oz pure alcohol)Alcohol: 1 or 2 drinks, 2 to 4 times a month; Caffeine: 1 can /weekPHQ-2 AnswerDate RecordedPatient Health Questionnaire-2 Svvrh950 Estimated Date of LepoygjlJmgpryaeAeh04/13/2026ased on UltrasoundSex and Gender InformationValueDate RecordedSex Assigned at QuxdtRpdfnn46/30/2023 8:23 AM EDT Legal EvrZhvcze81/15/2023 7:11 PM EDTGender KfqceqbfRswsxa61/30/2023 8:23 AM EDT Sexual KvoxjhfpfyyTlqyinlq21/30/2023 8:23 AM EDTdocumented as of this encounter Last Filed Vital Signs Vital SignReadingTime TakenCommentsBlood Jnwgqbvp775/8402/13/2025 9:12 AM EST Pulse--Temperature--Respiratory Rate--Oxygen Saturation--Inhaled Oxygen Concentration--Cragww247 kg (244 lb)02/13/2025 9:12 AM ESTHeight--Body Mass [...] 11/16/2017 Unable to comply with treatment 07/26/2022 ([facility]) 11/28/2017 Exposure to STD 05/31/2023 Encounter for weight management 05/31/2023 Dermatitis, atopic 08/04/2005 Allergic rhinitis 02/18/2000 Asthma ([facility]) 02/18/2000 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 Third trimester ([facility]) Z34.93 2. 31 weeks gestation of ([facility]) Z3A.31 POCT urinalysis dipstick manually resulted Assessment/Plan [...] Plan of Treatment DateTypeDepartmentCare Team (Latest Contact Info)Uwimophbzuz04/22/2025 9:00 AM ESTAncillary Procedure [facility] [address] [place] [address] 02/26/2025 10:40 AM ESTRoutine [facility] [address] [place] [address] Tess Lopez, KALIE [address] [place] [address] 07/04/2025 10:10 AM EDTOffice Visit [facility] [address] [place] [address] Allen Carr MD [address] [place] [address] NameTypePriorityAssociated DiagnosesOrder ScheduleUS biophysical profile w non stress testImagingRoutine Hypothyroidism, unspecified type Expected: 02/13/2025 (Approximate), Expires: 08/14/2025documented as of this encounter Procedures Procedure NamePriorityDate/TimeAssociated DiagnosisCommentsPOCT URINALYSIS WEEECUJDTkoepcg61/18/2025 9:22 AM EST 31 weeks gestation of ([facility]) documented in this encounter Results * POCT [...] 9:22 AM EST Narrative Authorizing ProviderResult TypeResult StatusBeth Israel Deaconess Medical CenterOINT OF CARE TEST ENTER/EDIT ORDERABLESFinal Result documented in this encounter Visit Diagnoses Diagnosis Third trimester ([facility]) state, incidental 31 weeks gestation of ([facility]) Hypothyroidism, unspecified type documented in this encounter
--- NOTE | 2025-02-13 10:54 | US_ITS ---
[address] [address] Patient Name: BRITTNEE SMITH MRN: [id number] date: 1995 Sex: F Assigned Patient Location: [facility] Current Patient Location: [facility] Accession/Order Number: [id number] Exam Date: 02/13/2025 10:55 Report Date: 02/13/2025 11:39 At the request of: IVY RUVALCABA DO Procedure: US OB BPP w non-stress BIOPHYSICAL PROFILE: CLINICAL INFORMATION: Macrosomia of fetus COMPARISON: None There is a single live intrauterine gestation in cephalic presentation. The reported gestational age is 31 weeks 6 days. The heart rate measures 159 beats per minute. FINDINGS: TONE: 1 or more episodes of activity extension and flexion of extremity or opening and closing of the hand [Y] 2/2 GROSS BODY MOVEMENTS: 3 or more discrete body or limb movements [Y] 2/2 BREATHING MOVEMENTS: 1 or more episodes of breathing lasting at least 30 seconds [Y] 2/2 BLANCHE: A single deepest vertical pocket of amniotic fluid greater than 2 cm [Y] 2/2 BLANCHE: 16.0 cm Total score: 8/8 US/US OB BPP w non-stress IMPRESSION: NORMAL BIOPHYSICAL PROFILE Impression dictated by: Brandy Shields M.D. 02/13/2025 11:39 AM Dictation Location: [place] [address] Electronically authenticated by: [id number] Y Date: 02/13/2025 11:39
--- OUTSIDE RECORDS SUMMARY | 2025-02-13 10:54 | XMS_ITS | Encounter Summary ---
Author Organization [facility] Address [address] [facility] [place] [address] Care Team Providers Care Film Developer Name Role Phone Unavailable Primary Care Provider Unavailabl e Encounter Details DateTypeDepartmentCare Team (Latest Contact Info)Rcsmvqllzgn88/18/2025amboo flowsheet SUNITA ANTHONY [address] [facility] [place] [address] Karla Matthews PA [address] [facility] [address] [place], [facility]11 Social History Tobacco UseTypesPacks/DayYears UsedDateSmoking Tobacco: NeverSmokeless Tobacco: NeverAlcohol UseStandard Drinks/WeekCommentsYes2 (1 standard drink = 0.6 oz pure alcohol)Alcohol: 1 or 2 drinks, 2 to 4 times a month; Caffeine: 1 can /weekPHQ-2 AnswerDate RecordedPatient Health Questionnaire-2 Smhtp093 Estimated Date of CqevspbjPmwcoylbIvg70/13/2026Based on UltrasoundSex and Gender InformationValueDate RecordedSex Assigned at SmtsgBvhlrg55/30/2023 8:23 AM EDT Legal QvoTlnnlx43/15/2023 7:11 PM EDTGender VivymwmvNecsqu55/30/2023 8:23 AM EDT Sexual NcmidgjequePzjlwqjd59/30/2023 8:23 AM EDTdocumented as of this encounter Plan of Treatment DateTypeDepartmentCare Team (Latest Contact Info)Ocgpmhtjenx21/22/2025 9:00 AM ESTAncillary Procedure [facility] ANTHONY [address] [facility] [place] [phone] 02/26/2025 10:40 AM ESTRoutine [facility] [address] [facility] [place] [address] Tess Lopez, KALIE [address] [facility] [place] [address] 07/04/2025 10:10 AM EDTOffice Visit [facility] [address] [place] [address] Allen Carr MD [address] [place] [address] documented as of this encounter Visit Diagnoses Not on filedocumented in this encounter
--- OUTSIDE RECORDS SUMMARY | 2025-02-13 10:54 | XMS_ITS | Encounter Summary ---
Author Organization [facility] Address [address] [place] [address] Care Team Providers Care Insurance Agents Supervisor Name Role Phone Unavailable Primary Care Provider Unavailabl e Encounter Details DateTypeDepartmentCare Team (Latest Contact Info)Ldysxtcspyp66/12/2025amboo flowsheet [facility] [place] [facility] [address] [place] [address] Allen Carr MD [address] [place] [address] Social History Tobacco UseTypesPacks/DayYears UsedDateSmoking Tobacco: NeverSmokeless Tobacco: NeverAlcohol UseStandard Drinks/WeekCommentsYes2 (1 standard drink = 0.6 oz pure alcohol)Alcohol: 1 or 2 drinks, 2 to 4 times a month; Caffeine: 1 can /weekPHQ-2 AnswerDate RecordedPatient Health Questionnaire-2 Dbebq324 Estimated Date of HvrxzhugEanyalbrTum71/13/2026Based on UltrasoundSex and Gender InformationValueDate RecordedSex Assigned at GtzdkAcgffx42/30/2023 8:23 AM EDT Legal KrxZtvjaq39/15/2023 7:11 PM EDTGender SvegmdnyGstdis38/30/2023 8:23 AM EDT Sexual MkhauegeuseFjfnubol51/30/2023 8:23 AM EDTdocumented as of this encounter Plan of Treatment DateTypeDepartmentCare Team (Latest Contact Info)Zoiwfwyplly08/22/2025 9:00 AM ESTAncillary Procedure [facility] OBJACQUELINE [address] [place] [address] [place] [phone] 02/26/2025 10:40 AM ESTRoutine [facility] [address] [facility] [place] [address] Tess Lopez, KALIE [address] [facility] [place] [address] 07/04/2025 10:10 AM EDTOffice Visit [facility] [address] [place] [address] Allen Carr MD [address], [address] [place] [address] documented as of this encounter Visit Diagnoses Not on filedocumented in this encounter
--- OUTSIDE RECORDS SUMMARY | 2025-02-13 10:54 | XMS_ITS | Encounter Summary ---
Author Organization [facility] Address [address] [place] [facility] [place] [address] Care Team Providers Care Ticket Attendant Name Role Phone Unavailable Primary Care Provider Unavailabl e Encounter Details DateTypeDepartmentCare Team (Latest Contact Info)Cgwjabqicdc50/10/2025linisync Result Encounter [facility] External Department Unsolicited Ha Baker DO [address] [place] [address] Social History Tobacco UseTypesPacks/DayYears UsedDateSmoking Tobacco: NeverSmokeless Tobacco: NeverAlcohol UseStandard Drinks/WeekCommentsYes2 (1 standard drink = 0.6 oz pure alcohol)Alcohol: 1 or 2 drinks, 2 to 4 times a month; Caffeine: 1 can /weekPHQ-2 AnswerDate RecordedPatient Health Questionnaire-2 Urjhu245 Estimated Date of IfzentxoMixhqpgaPbb30/13/2026ased on UltrasoundSex and Gender InformationValueDate RecordedSex Assigned at PrvpyQeunmf51/30/2023 8:23 AM EDT Legal UwxWgyhxb19/15/2023 7:11 PM EDTGender PcwqmgdgXqjjbf64/30/2023 8:23 AM EDT Sexual OetughpmezpGdfphyzs17/30/2023 8:23 AM EDTdocumented as of this encounter Plan of Treatment DateTypeDepartmentCare Team (Latest Contact Info)Shrnkyexycg27/22/2025 9:00 AM ESTAncillary Procedure [facility] [address] [place] [address] 02/26/2025 10:40 AM ESTRoutine [facility] [address] [facility] [place] [address] Tess Lopez, KALIE [address] [facility] [place] [address] 07/04/2025 10:10 AM EDTOffice Visit [facility] [place] [facility] [address] [place] [address] Allen Carr MD [address] [place] [address] documented as of this encounter Procedures Procedure NamePriorityDate/TimeAssociated DiagnosisCommentsTBH UA (CLEAN/CATCH) OUTSIDE RIGGER/MICRO IF IND.Bzrlmcr8502/05/2025 11:15 AM EST documented in this encounter Results * (ABNORMAL) TBH UA (CLEAN/CATCH) OUTSIDE RIGGER/MICRO IF IND. (02/05/2025 11:15 AM EST) ComponentValueRef RangeTest MethodAnalysis TimePerformed AtPathologist SignatureCOLOR URINEYELLOWYELLOWTBHCLARITY URINECLEARCLEARTBHSPECIFIC GRAVITY URINE1.0251.005 - 1.025TBHPH URINE6.05.0 - 9.0TBHPROTEIN URINENEGATIVE NEG/TRACE mg/dLTBHGLUCOSE URINE UANEGATIVENEGATIVE mg/dLTBHBILIRUBIN URINE NEGATIVENEGATIVETBHKETONES URINE15(A)NEGATIVE mg/dLTBHBLOOD URINENEGATIVE NEGATIVETBHNITRITE URINENEGATIVENEGATIVETBHUROBILINOGEN URINE0.20.2 - 1.0 EU/dLTBHLEUKOCYTE ESTERASE URINENEGATIVENEGATIVETBHURINE MICROSCOPIC INDICATED NOTBHSpecimen (Source)Anatomical Location / LateralityCollection Method / VolumeCollection TimeReceived Time02/05/2025 11:15 AM EST02/05/2025 11:29 AM EST Narrative [facility]IN[facility] - 02/05/2025 11:41 AM EST Authorizing ProviderResult TypeResult StatusCorey Samuel DOCLINISYNCFinal Result Performing OrganizationAddressCity/State/ZIP CodePhone Number CLINISYNC [facility] documented in this encounter Visit Diagnoses Not on filedocumented in this encounter
--- OUTSIDE RECORDS SUMMARY | 2025-02-13 10:54 | XMS_ITS | Encounter Summary ---
Author Organization [facility] Address [address] [facility] [place] [place] [address] Care Team Providers Care Purchasing Analyst Name Role Phone Unavailable Primary Care Provider Unavailabl e Encounter Details DateTypeDepartmentCare Team (Latest Contact Info)Epjfiyfsara25/15/2025bstract SUNITA ANTHONY [address] [facility] [address] [address] Ha Baker DO [facility] [address] [place], [place] [address] Social History Tobacco UseTypesPacks/DayYears UsedDateSmoking Tobacco: NeverSmokeless Tobacco: NeverAlcohol UseStandard Drinks/WeekCommentsYes2 (1 standard drink = 0.6 oz pure alcohol)Alcohol: 1 or 2 drinks, 2 to 4 times a month; Caffeine: 1 can /weekPHQ-2 AnswerDate RecordedPatient Health Questionnaire-2 Ecpcg182 Estimated Date of QfwgjwqdUxsvlfsgDxw96/13/2026Based on UltrasoundSex and Gender InformationValueDate RecordedSex Assigned at BrexhWgkobv98/30/2023 8:23 AM EDT Legal BroOdvtrk55/15/2023 7:11 PM EDTGender HskegejjUrjxet50/30/2023 8:23 AM EDT Sexual PvcxhbucfcpHvrrmlgz31/30/2023 8:23 AM EDTdocumented as of this encounter Plan of Treatment DateTypeDepartmentCare Team (Latest Contact Info)Zctleaoiwib83/22/2025 9:00 AM ESTAncillary Procedure [facility] ANTHONY [address] [facility] [place] [address] 02/26/2025 10:40 AM ESTRoutine [facility] [address] [facility] [place] [address] Tess Lopez, KALIE [address] [facility] [place] [address] 07/04/2025 10:10 AM EDTOffice Visit [facility] [place] [facility] [address] [place] [address] Allen Carr MD [address] [place] [address] documented as of this encounter Visit Diagnoses Not on filedocumented in this encounter
--- OUTSIDE RECORDS SUMMARY | 2025-02-13 10:55 | XMS_ITS | Clinical Summary ---
Author Organization [facility] Address [id number] [address] 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 ydbrje1712/13/2024Estimated Date of DeliveryCommentsYes 6Based on Ultrasound Encounters DateTypeDepartmentCare NynwArkznzwdlht91/25/2025 2:00 PM EST - 01/21/2025 11:59 PM ESTHospital Encounter [facility] [address] [place] [address] Hypothyroidism affecting in second trimester Discharge Disposition: Home01/21/20258550Mhaqhf52/17/2025 8:45 AM EDTOffice Visit [facility] at [facility] [address] [place] [address] Kenji Plascencia MD 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) 12/13/2024 7:30 AM EDT - 12/13/2024 11:59 PM EDTHospital Encounter [facility] [address] [place] [address] Screening, , for anatomic survey Discharge Disposition: Home12/13/2024Orders Only Maternal- Medicine at [facility] [address] [place] [address] Eun Mcgrath RN Hypothyroidism affecting in second trimester (Primary Dx)12/13/2024 Dtuoyx7912/12/2024Travelfrom Last 3 Months Family History Medical HistoryRelationNameCommentsHypothyroidismFatherDiabetesMaternal GrandfatherLiver diseaseMaternal GrandfatherDiabetesPaternal GrandfatherLymphoma Paternal GrandfatherRelationNameStatusCommentsFatherAliveMaternal Grandfather DeceasedMotherAlivePaternal Grandfather Social History Tobacco UseTypesPacks/DayYears UsedDateSmoking Tobacco: NeverSmokeless Tobacco: Never Tobacco Cessation:Counseling Given: Not Answered Alcohol UseStandard Drinks/WeekCommentsNot Currently0 (1 standard drink = 0.6 oz pure alcohol)ChildcareAnswerDate VmewsieuDxyaacxxzUujgrkw25/12/2019Employment AnswerDate LkomtegpHobgfwqpwxPtvtyuz50/12/2019Hunger ScreeningAnswerDate RecordedWithin the past 12 months we worried whether our food would run out before we got money to buy more.Never True12/13/2024Within the past 12 months the food we bought just didn't last and we didn't have money to get more.Never True12/13/2024Estimated Date of RaiupiiuIhimdlttBag83/13/2026ased on UltrasoundSex and Gender InformationValueDate RecordedSex Assigned at BirthNot on fileLegal ChaFlrnme37/06/2015 11:49 AM EDTGender IdentityNot on fileSexual OrientationNot on file Last Filed Vital Signs Vital SignReadingTime TakenCommentsBlood Oxsebrng850/7312/13/2024 8:03 AM EDT Dmkgx880512/13/2024 8:03 AM NAAXqzwgmlrpsq69 ??C (98.6 ??F)10/23/2024 1:18 PM EDT Respiratory Jhfg907510/23/2024 2:45 PM EDTOxygen Bvhhrcoywf33%10/23/2024 2:45 PM EDTInhaled Oxygen Concentration--Lsisbq484.8 kg (235 lb 6.4 oz)12/13/2024 8:03 AM ZOJFeevmd541.6 cm (5' 4.02 )12/13/2024 8:03 AM EDTBody Mass Index40.39 12/13/2024 8:03 AM EDT Plan of Treatment Health MaintenanceDue DateLast DoneCommentsDepression Jwrwjikjg87/01/2006dult BMI Follow Up Plan2011DTaP,Tdap and Td Vaccines (2 - Td or Tdap)08/05/2015 08/04/2005Influenza Mdsqhgp4010/28/2024RSV ( or age 60+ yrs) (1 - Risk 1-dose series)02/14/2025dult BMI Pzljmoqtc62Tobacco Xghuymiid34Pap Smear Medical Devices Not on file Procedures Procedure NamePriorityDate/TimeAssociated DiagnosisCommentsUS MFM OB FOLLOW-UP, 1 RRESVMocdbde97/25/2025 3:08 PM EST Hypothyroidism affecting in second trimester US MFM COMPREHENSIVE ANATOMIC EMSUCYUexsxqc70/17/2025 8:50 AM EDT Screening, , for anatomic [...] BEAULIEU : 1995 SEX: F Accession Number: [id number] ORDERING PHYSICIAN: KENJI PLASCENCIA REFERRING PHYSICIAN: IVY RUVALCABA ADDENDUM updated recommendations Coding Procedures ? 89227: Ultrasound, uterus, real time with image documentation, [...] (oz) ? 6 oz EFW by: ?Hadlock (XMG-BD-WI-FL) Extended Tibia ??51.5 mm 30w 5d 96% Jocelyn Cloth Colors Examiner ? 2.8 mm Nasal bone ? 7.7 [...] Thorax RVOT view. LVOT view. 3-vessel view. 8-pmxjgk-xqlplsi view. Interventricular septum.Great vessels. ? Cardiac position. [...] with clinical findings and diabetesscreen. Please see [facility] recommendations from prior clinical and/or ultrasound [...] BEAULIEU : 1995 SEX: F Accession Number: [id number] ORDERING PHYSICIAN: KENJI PLASCENCIA REFERRING PHYSICIAN: IVY RUVALCABA ADDENDUM updated recommendations Coding Procedures 85384: Ultrasound, uterus, real time with image documentation, [...] EFW (oz) 6 oz EFW by: Hadlock (IYP-FY-QA-FL) Extended Tibia 51.5 mm 30w 5d 96% Jocelyn Cloth Colors Examiner 2.8 mm Nasal bone 7.7 mm 5% [...] Thorax RVOT view. LVOT view. 3-vessel view. 3-xdnmsx-emuowlm view. Interventricular septum. Great vessels. Cardiac position. [...] withclinical findings and diabetes screen. Please see MFM recommendations from prior clinical and/or ultrasoundreport documentation. [...] necessary. Authorizing ProviderResult TypeResult StatusKenji Plascencia MDMagdaleno US ORDERABLES Edited Result - Final from Last 3 Months Insurance Care Teams Team MemberRelationshipSpecialtyStart DateEnd Date No Pcp, [place] [id number] PCP - GeneralFamily Medicine10/23/24
--- OUTSIDE RECORDS SUMMARY | 2025-02-13 10:55 | XMS_ITS | Patient Health Record ---
Author Organization Message Bus [facility] vices Address [address] [place], [place] [id number] Care Team Providers Care Pediatric Critical Care Nurse Name Role Phone Lance Santos Unavailable [phone] Allergies Allergen (clinical drug ingredient) Drug/Non Drug Allergy documented on EMR Reaction Allergy Type Onset Date Status PediazoleUnknownDrug Odgabzf0407/19/2011ctiveSubstance with sulfonamide structure and antibacterial mechanism of action (substance)Sulfa AntibioticsUnknownDrug Dumaohk1207/19/2011ctive Reason For Referral No Information Immunizations Vaccine Route Administration Date Status Comme nts *Tdap (Adacel)-VFC IM Intramuscular 08/04/2005 Administered Status:Complete ,Reason:Given or N/A , leatha (08/04/2005) 20 minute check done no reaction 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: [employer] Parent/Guardian: present Social History Sex Assigned At : Social History Observation Description Sex Assigned At Female Social History Additional DetailsCategorySocial InfoOptionsDetailsMigrated Social History Migrated Social History ALCOHOL: Minimal alcohol consumption, ProblemStatus: Inactive, , ALCOHOL: Moderate alcohol consumption, ProblemStatus: Inactive, , Both parents work outside the home, ProblemStatus: Active, , Caffeine Use, ProblemStatus: Active, , DIET: Normal well-balanced diet for age, ProblemStatus: Inactive, , No Caffeine Use, ProblemStatus: Inactive, , No Drug Use, ProblemStatus: Active, , No significant stress issues with home, family, personal relationships, or work, ProblemStatus: Inactive, , Non Drinker/No Alcohol Use, ProblemStatus: Active, , Normal bowel frequency, COMMENTS: normal urinary habits, ProblemStatus: Inactive, , Normal sleeping pattern, ProblemStatus: Inactive, , PARENTS WORKING: Father works outside the home, ProblemStatus: Inactive, , PATIENT EDUCATION: Patient education, ProblemStatus: Inactive, , Patient feels safe in relationships, ProblemStatus: Active, , PERSONS IN HOME: Patient lives with siblings, ProblemStatus: Inactive, , PERSONS IN HOME: The patient lives with a grandmother, ProblemStatus: Inactive, , PERSONS IN HOME: The patient lives with parents, ProblemStatus: Inactive, , School Attendance, AttributeTitle: School full days, COMMENTS: 11th grade, ProblemStatus: Inactive,, SCHOOL: In the 7th grade, ProblemStatus: Inactive, , TOBACCO USE: Has no smoking history, ProblemStatus: Inactive, , Tobacco/Smoke Exposure, AttributeTitle: None, ProblemStatus: Active Problems Problem Type SNOMED Code ICD Code Onset Dates Problem Status W/U Status Risk Notes Problem 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, 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 confirmed ProblemAcute streptococcal pharyngitis (5788744693)Acute streptococcal pharyngitis (J02.0)Activeconfirmed Comment:rapid strep positive 10 days abx F/U 2 weeks EMPHASIZED THE NEED TO COMPLETE ALL 10 DAYS,Description:Streptococcal sore throat ProblemAsthma (954829574)Asthma (J45.909)02/18/2000ActiveconfirmedProblemHealth supervision of healthy or child receiving care (V20.1) (V20.1)Active confirmedProblemAllergic rhinitis (67939145)Allergic rhinitis (J30.9)02/18/2000 ActiveconfirmedProblemHistory and physical examination, administrative (22355788)General medical examination for administrative purposes (V70.3) (V70.3)08/04/2005ctiveconfirmedProblemDermatitis, atopic (691.) (691)08/04/2005 ActiveconfirmedProblemAcute pharyngitis (989352418)Acute pharyngitis (J02.9) 09/10/2009ctiveconfirmedProblemAcute bronchitis (disorder) (64539844) Bronchitis, acute (466.0) (466.0)ActiveconfirmedProblemWell child visit (938634776)Routine or child health check (V20.2) (V20.2)08/30/2007ctive confirmedProblemAcute sinusitis (05750812)Acute infection of nasal sinus (J01.90)Problem resolvedconfirmedComment:advised to take her zyrtec 10mg po daily- states that she has zyrtec at home,Description:Acute sinusitis Plan Of Treatment No Information Insurance Providers Payer Name Payer Address Payer Phone Subscriber Number Group Number Insured Name Patient Relationship to Insured Coverage Start Date Coverage End Date [employer] [facility] [address] [address] [place] [address] [id number] Lars Mathur - patient is the [id number] 2022Medicaid CF after [address] [place], [place] [id number], [employer] - patient is the insured 2022 Medical (General) History Medical History History ICD Code 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
--- OUTSIDE RECORDS SUMMARY | 2025-02-13 10:55 | XMS_ITS | Clinical Summary ---
Author Organization [facility] Address [address] [place] [address] Care Team Providers Care Canvas Shop Laborer Name Role Phone Unavailable Primary Care Provider Unavailabl e Allergies Active AllergyReactionsCriticalityNoted DateCommentsOtherRash,OjexjWza42/24/2023 PEDIAZOLE Sulfa AntibioticsOther,IbasJpeypo86/22/2012 Other Reaction(s): Unknown ZdxurqtxxixbyoewWhseIve58/22/2023 Medications MedicationSigDispense QuantityRefillsLast FilledStart DateEnd DateStatus fluticasone (Flonase) 50 MCG/ACT nasal spray Administer 1 spray into each nostril Daily Shake gently. Before first use, prime pump. After use, clean tip and replace cap.Active Vit-Fe Fumarate-FA ( Vitamins) 28-0.8 MG tablet Indications:Positive urine test ([facility]-H[facility])Take 1 tablet by mouth Daily 30 tablet 306/30/681863/306Active bisacodyl (Dulcolax) 10 MG suppository Indications:Constipation, unspecified constipation typeUNWRAP AND INSERT 1 SUPPOSITORY RECTALLY DAILY FOR 10 DAYS 10 suppository 5Active levothyroxine (Synthroid) 25 MCG tablet Indications:History of hyperthyroidismTake 1 tablet (25 mcg) by mouth in the morning. Take before meals. 30 tablet 11011/08/183395/6Active Synthroid 300 MCG tablet Indications:Alfredo's disease,Thyroid disease during , first trimester (HCC)Take 1 tablet (300 mcg) by mouth Daily 90 tablet 109/15/907812/6Active Additional Information Patient not taking.Reported on 02/07/2025 Alcohol Swabs (Alcohol Prep Pad) 70 % pads Indications:Gestational diabetes mellitus (GDM), antepartum, gestational diabetes method of control unspecified([facility]HS-HCC),Elevated glucose tolerance test Apply 1 Pad topically Daily Use four times daily to check FSBS. 150 each 5Active Additional Information Patient taking differently:1 Pad Topical Daily,(No times of day reported), Use four times daily to check FSBS., Reported on 02/07/2025 Blood Glucose Monitoring Suppl (D-Care Glucometer) w/Device kit Indications:Gestational diabetes mellitus (GDM), antepartum, gestational diabetes method of control unspecified(HHS-HCC),Elevated glucose tolerance test1 kit Daily Use four times daily to check FSBS. In the morning prior to breakfast & 1 hour after each meal for a total of 4times daily. 1 kit /ctive Additional Information Patient taking differently:1 kit Does not apply Daily,(No times of day reported) , Use four times daily to check FSBS. In the morning prior to breakfast & 1 hour after each meal for a total of 4times daily., Reported on 02/07/2025 Synthroid 300 MCG tablet Indications:Alfredo's diseaseTake 1 tablet (300 mcg) by mouth in the morning. Take before meals. 360 tablet /ctive Synthroid 300 MCG tablet Indications:Hypothyroidism, unspecified typeTake 1 tablet (300 mcg) by mouth in the morning. Take before meals. 360 tablet Discontinued(Reorder) Lancets Ultra Thin [facility] Indications:Gestational diabetes mellitus (GDM), antepartum, gestational diabetes method of control unspecified(HHS-HCC),Elevated glucose tolerance test1 each by In Vitro route Daily Use to check FSBS four times daily 150 each /Expired Additional Information Patient taking differently:1 each In Vitro Daily,(No times of day reported), Use to check FSBS four times daily, Reported on 02/07/2025 Glucose Blood (Blood Glucose Test) strip Indications:Gestational diabetes mellitus (GDM), antepartum, gestational diabetes method of control unspecified(HHS-HCC),Elevated glucose tolerance test1 strip by In Vitro route Daily Use in the morning prior to breakfast, 1 hour after each meal for atotal of 4times daily. 150 strip 311/13/41377504/11/2024Expired Additional Information Patient taking differently:1 strip In Vitro Daily,(No times of day reported), Use in the morning prior to breakfast, 1 hour after each meal for a total of 4times daily., Reported on 02/07/2025 Active Problems ProblemNoted DateDiagnosed DateAcute gkjrmgmmen82/17/2025Acute streptococcal mmhwncgovdk81/17/2025Exposure to STD05/31/2023Encounter for weight management 9350Anmqpi12/30/2023luster headache ktbzbtej40/30/2023ongenital hypothyroidism without wbtfmv7107/26/2022Missed mbgemw4507/26/2022Unable to comply with mghxuiopk19/30/2023Obesity affecting , antepartum ([facility]) 11/13/2018Pregnancy ([facility])11/28/20176620Wgrtptkotpxiedl43/02/2018Obesity (BMI 35.0-39.9 without comorbidity)11/16/20172235Vibbsvvgzrg48/01/2017Acute pharyngitis 09/10/2009Chondromalacia of fnvfeke8705/27/2009Encounter for childhood immunizations appropriate for age0708/30/2007Dermatitis, bobstp7408/04/2005llergic tqqvzvjo15/22/5079Xxmaea44/22/8519Rflnlaumspj31/01/1994Estimated Date of KwkbxpjbBjanvbzxJtz14/13/2026ased on Ultrasound Resolved Problems ProblemNoted DateDiagnosed DateResolved DatePregnancy-induced hypertension ([facility])nemia of ([facility]) Encounters DateTypeDepartmentCare KotwRedsuxhjfrm03/18/2025 9:00 [place] [address] Karla Matthews PA Third trimester ([facility]); 31 weeks gestation of ([facility]); Hypothyroidism, unspecified type02/13/2025amboo [place] [address] Karla Matthews PA 02/10/2025bstract [facility] [address] [place] [phone] Ivy Baker, 02/07/2025 10:20 AM ESTOffice Visit [facility] [place] [facility] [address] [place] [address] Allen Carr MD Alfredo's disease (Primary Dx); Hypothyroidism, maternal, antepartum, third trimester (HCC); Vitamin D deficiency; Encounter for dietary consultation; Class 3 severe obesity due to excess calories without serious comorbidity with body mass index (BMI) of 40.0 to 44.9 in adult ([facility])02/07/2025amboo flowsheet [facility] [place] [facility] [address] [place] [address] Allen Carr MD 5Clinisync Result Encounter [facility]OM[facility] External Department Unsolicited Ivy Baker, DO 01/30/2025linisync Result Encounter NOMS External Department Unsolicited Ivy Baker, DO 01/28/2025 11:30 AM ESTRoutine [facility] [place] [phone] Ivy Baker, Third trimester ([facility]); 29 weeks gestation of ([facility]); Elevated glucose tolerance test; History of hyperthyroidism; Macrosomia of fetus affecting management of mother in first trimester, single or unspecified fetus ([facility])01/28/2025amboo [place] [address] Ivy Baker, 01/22/2025bstract [facility] [address] [place] [address] Ivy Baker, DO 01/15/2025Patient Outreach [facility] [address] [place] [address] Karla Campa LPN 01/09/2025 10:50 AM ESTRoutine [facility] [address] [place] [address] Karla Matthews, PA Second trimester ([facility]); 26 weeks gestation of ([facility]); Gestational diabetes mellitus (GDM), antepartum, gestational diabetes method of control unspecified([facility]); Elevated glucose tolerance test01/09/2025amboo flowsheet [facility] [address] [place] [address] Karla Matthews PA 12/13/2024bstract [facility] [address] [place] [address] Ivy Baker, 12/13/2024bstract [facility] [address] [place] [address] Ivy Baker, 12/13/2024External Result Encounter [facility] [address] [phone] Ivy Baker, 12/13/2024Patient Outreach [facility] [address] [place] [address] Karla Campa LPN 12/12/2024 9:30 AM EDTProcedure Visit [facility] [address] [address] Ivy Baker, Colposcopy needed after cervical smear; Second trimester ([facility]); 22 weeks gestation of ([facility])11/15/2024Patient Outreach [facility] [address] [place] [address] Karla Campa LPN 11/15/2024Orders Only [facility] [address] [place] [address] Carolina Stone LPN from Last 3 Months Immunizations ImmunizationAdministration DatesNext VxvAjaq2308/04/2005 Family History Medical HistoryRelationNameCommentsHypothyroidismFatherDiabetesMaternal GrandfatherGrandpaDiabetesOtherpaternal auntsThyroid diseaseOtherpaternal side LymphomaPaternal GrandfatherRelationNameStatusCommentsFatherAliveMaternal GrandfatherGrandpaMotherAliveOtherPaternal Grandfather Social History Tobacco UseTypesPacks/DayYears UsedDateSmoking Tobacco: NeverSmokeless Tobacco: Never Tobacco Cessation:Counseling Given: Not Answered Alcohol UseStandard Drinks/WeekCommentsYes2 (1 standard drink = 0.6 oz pure alcohol)Alcohol: 1 or 2 drinks, 2 to 4 times a month; Caffeine: 1 can /weekPHQ-2 AnswerDate RecordedPatient Health Questionnaire-2 Opztd912 Estimated Date of WimxcvkjHctlwxezBek73/13/2026ased on UltrasoundSex and Gender InformationValueDate RecordedSex Assigned at AsylbNeuxiu25/30/2023 8:23 AM EDT Legal FvdRuxiwu38/15/2023 7:11 PM EDTGender OmkppltaIinmjv66/30/2023 8:23 AM EDT Sexual ImkyprhfjpeXtzvbpzb46/30/2023 8:23 AM EDT Last Filed Vital Signs Vital SignReadingTime TakenCommentsBlood Ykkwsoyv815/8402/13/2025 9:12 AM EST Ixogu351302/07/2025 10:32 AM ESTTemperature--Respiratory Yctv067004/10/2024 10:32 AM ESTOxygen Pvhhbfyqig15%02/07/2025 10:32 AM ESTInhaled Oxygen Concentration-- Shxroq401 kg (244 lb)02/13/2025 9:12 AM TFXHsvudz826 cm (5' 3 )02/07/2025 10:32 AM ESTBody Mass Index43.22104/10/2024 10:32 AM EST Plan of Treatment DateTypeDepartmentCare Team (Latest Contact Info)Rsbswhjojic86/22/2025 9:00 AM ESTAncillary Procedure [facility] [address] [place] [address] 02/26/2025 10:40 AM ESTRoutine [facility] [address] [place] [phone] Tess Lopez, ROTO MIXER OPERATOR [address] [place] [address] 07/04/2025 10:10 AM EDTOffice Visit [facility] [place] [facility] [address] [place] [address] Allen Carr MD [address] [place] [address] Procedures Procedure NamePriorityDate/TimeAssociated DiagnosisCommentsPOCT URINALYSIS NLXJJWJMMsfnmxm32/18/2025 9:22 AM EST 31 weeks gestation of ([facility]) [facility] UA (CLEAN/CATCH) COMBAT SYSTEMS OFFICER/MICRO IF IND.Wpzmuaa3302/05/2025 11:15 AM EST T4, EXIZWuqsrix07/04/2025 1:07 PM EST Hypothyroidism, unspecified XCHTcjfnwr42/04/2025 11:17 AM EST Hypothyroidism, unspecified T3, TMOBRdapcpy63/04/2025 11:17 AM EST Hypothyroidism, unspecified GLUCOSE TOLERANCE 3 AHYNYylghbg67/04/2025 9:59 AM EST POCT URINALYSIS RIZTAQZIFafnwfh18/02/2025 11:47 AM EST 29 weeks gestation of ([facility]) POCT URINALYSIS GARBHVOAYdhfbij44/13/2025 11:23 AM EST Second trimester ([facility]) US OB 14+ WEEKS ANATOMY SCAN12/13/2024 10:23 AM EDT EMHFEKUHYWPtshhhz52/16/2025 10:08 AM EDT Colposcopy needed after cervical smear Second trimester ([facility]) 22 weeks gestation of ([facility]) POCT URINALYSIS KBGMAYPOGsflxlv07/16/2025 9:30 AM EDT 22 weeks gestation of ([facility]) from Last 3 Months Results * POCT urinalysis dipstick manually resulted (02/13/2025 9:22 AM EST) Only the most recent of4 resultswithin the time period is included. ComponentValueRef RangeTest MethodAnalysis TimePerformed AtPathologist Signature Color, UAYellowClarity, UAClearGlucose, UANegativeNegative - 2000(110) ++++ mg/dLBilirubin, UANegativeNegative - 4(70) +++ mg/dLKetones, UANegativeNegative - 160(16) ++++ mg/dLSpec Grav, UA1.0151 - 1.03Blood, UANegativeNegative - 50 Ojhn/mcLpH, UA7.55 - 9Protein, UANegativeNegative - 2000(20) ++++ mg/dL Urobilinogen, UA1.00.2 - 12 mg/dLLeukocytes, UANegativeNegative - 500+++ Anderson/mcL Nitrite, UANegativeNegative - PositiveSpecimen (Source)Anatomical Location / LateralityCollection Method / VolumeCollection TimeReceived KlysDugjh95/18/2025 9:22 AM EST Narrative Authorizing ProviderResult TypeResult StatusCentra [facility] TEST ENTER/EDIT ORDERABLESFinal Result * (ABNORMAL) [facility] UA (CLEAN/CATCH) COMBAT SYSTEMS OFFICER/MICRO IF IND. (02/05/2025 11:15 AM EST) ComponentValueRef [...] 02/05/2025 11:41 AM EST Authorizing ProviderResult TypeResult StatusIvy Baker DOCLINISYNCFinal Result Performing OrganizationAddressCity/State/ZIP CodePhone Number [facility] * T4, free (01/30/2025 1:07 PM EST)Specimen (Source)Anatomical Location / LateralityCollection Method / VolumeCollection TimeReceived TimeBloodVenous blood specimen / Unknown Narrative Authorizing ProviderResult TypeResult StatusMountain West Medical Centerantonio [facility] HospitalBrunoMerit Health Woman's Hospital BLOOD ORDERABLESFinal ResultPerforming OrganizationAddressCity/State/ZIP CodePhone Number [facility] * T3, free (01/30/2025 11:17 AM EST)Specimen (Source)Anatomical Location / LateralityCollection Method / VolumeCollection TimeReceived TimeBloodVenous blood specimen / Unknown Narrative Authorizing ProviderResult TypeResult Statusmaantonio [facility] Specialty HospitalBrunoMerit Health Woman's Hospital BLOOD ORDERABLESFinal ResultPerforming OrganizationAddressCity/State/ZIP CodePhone Number [facility] * TSH (01/30/2025 11:17 AM EST)Specimen (Source)Anatomical Location / Laterality Collection Method / VolumeCollection TimeReceived TimeBloodVenous blood specimen / Unknown Narrative Authorizing ProviderResult TypeResult Statusmad [facility] BLOOD ORDERABLESFinal ResultPerforming OrganizationAddressCity/State/ZIP CodePhone Number [facility] * (ABNORMAL) GLUCOSE TOLERANCE 3 HOUR (01/30/2025 9:59 AM EST)ComponentValueRef RangeTest MethodAnalysis TimePerformed AtPathologist SignatureGLUCOSE TOLERANCE 3 HOUR(H)mg/dLTBHComment: GLU FAST 97H (<95) Col: 01/30/25 0959 GLU 1HR 162 (<180) Col: 01/30/25 1101 GLU 2HR 123 (<155) Col: 01/30/25 1200 GLU 3HR 145H (<140) Col: 01/30/25 1259 Specimen (Source)Anatomical Location / LateralityCollection Method / Volume Collection TimeReceived Time01/30/2025 9:59 AM EST01/30/2025 10:03 AM EST Narrative [facility] - 01/30/2025 1:19 PM EST Authorizing ProviderResult TypeResult StatusCorejona Baker [facility] BLOOD ORDERABLES Final ResultPerforming OrganizationAddressCity/State/ZIP CodePhone Number [facility] * US OB 14+ weeks anatomy scan (12/13/2024 10:23 AM EDT)Anatomical Region LateralityModalityBodyUltrasoundSpecimen (Source)Anatomical Location / LateralityCollection Method / VolumeCollection TimeReceived Time12/13/2024 10:23 AM EDT Narrative 12/13/2024 10:23 AM EDT THIS EXAM WAS PERFORMED AT [facility] NAME: ?LUIS MARIA : 1995 SEX: F Accession Number: [id number] ORDERING PHYSICIAN: FUAD PLASCENCIA REFERRING PHYSICIAN: IVY BAKER Coding Procedures ? 56828: Ultrasound, uterus, real time with image documentation, and maternal evaluation ? plus detailed anatomic examination, transabdominal approach;single or first gestation ? 99501: Ultrasound, uterus, real time with image documentation, [...] view: limited by maternal body habitus. Medical Asset Management Lead Asset Management Lead declined Wolfe . Number of fetuses: 1 [...] (oz) ? 3 oz EFW by: ?Hadlock (OOM-UP-WU-FL) Extended Tibia ??36.4 mm 23w 5d 72% Jocelyn Authorizer ? 4.1 mm CM ? 6.0 mm [...] Heart / Thorax RVOT view. LVOT view. 7-qnjgdc-cyylacf view. Ductal arch view. Interventricular septum. Great [...] - 12/13/2024 THIS EXAM WAS PERFORMED AT [facility] NAME: LUIS BEAULIEU : 1995 SEX: F Accession Number: [id number] ORDERING PHYSICIAN: FUAD PLASCENCIA REFERRING PHYSICIAN: IVY BAKER Coding Procedures 16434: Ultrasound, uterus, real time with image documentation, and maternal evaluation plus detailed anatomic examination, transabdominalapproach;single or first gestation 72729: Ultrasound, uterus, real time with imagedocumentation, transvaginal [...] Suboptimalview: limited by maternal body habitus. Medical Asset Management Lead Asset Management Lead declined Wolfe . Number of fetuses: 1 [...] EFW (oz) 3 oz EFW by: Hadlock (OFY-BX-TG-FL) Extended Tibia 36.4 mm 23w 5d 72% Jocelyn Authorizer 4.1 mm CM 6.0 mm 60% Nicolaides [...] Heart / Thorax RVOT view. LVOT view. 8-yzbtyc-xnbqeth view. Ductal archview. Interventricular septum. Great vessels. [...] TypeResult StatusCorey Samuel [facility] ORDERABLESFinal Result from Last 3 Months Insurance
--- OUTSIDE RECORDS SUMMARY | 2025-02-13 10:55 | XMS_ITS | Patient Health Record ---
Author Organization [facility] Address [address] [place] [address] Care Team Providers Care Lotus Notes Administrator Name Role Phone emmy schultz Unavailable [phone] Allergies Allergen (clinical drug ingredient) Drug/Non Drug [...] or less (1 point)Points1 InterpretationNegativeAdditional DetailsCategorySocial InfoOptionsDetailsSocial HistoryAlcohol:StylesSun 08/14/2018 01:30:16 PM EDT > , Occasional alcohol Tobacco UsePineda 08/14/2018 01:30:05 PM EDT > , no Problems Problem Type SNOMED Code ICD Code Onset Dates Problem Status W/U Status Risk Notes Problem Obesity (705935877) Obesity (BMI 35.0-39. 9 without comorbidity) (E66.9) Activeconfirmed Plan Of Treatment Pending Test Test Name Order Date X ray : Spines, lumbosacral 08/14/2018 URINE RAPID TEST 08/14/2018 CMP Comprehensive Metabolic Panel w/ eGF R (26787) [facility] 08/14/2018 Lipid Panel w/ Reflex to Direct LDL (148 52) [facility] 08/14/2018 Vitamin D, 25-Hydroxy, Total, Immunoassa y (99174) - [facility] 08/14/2018 HEMOGLOBIN A1c (496) [facility] 08/14/2018 UA Urinalysis Complete (8433) [facility] 07/28 CBC (includes Differential and Platelets ) (8699) [facility] 08/14/2018 TSH and FREE T4 (37053) [facility] 08/14/2018 Insurance Providers Payer Name Payer Address Payer Phone Subscriber Number Group Number Insured Name Patient Relationship to Insured Coverage Start Date Coverage End Date [employer] [facility] PPO/POS/HMO XPRESS [address] [place] [address] [id number] Lars Mathur - patient is the insured Medical (General) History Medical History History ICD Code high blood pressure THYROID DISORDERSurgical History Surgery Date(Month/Year) right hand surgery 10/11 Hospitalization History Reason Date(Month/Year) broken hand 09/10 induced 05/17/18
--- OUTSIDE RECORDS SUMMARY | 2025-02-13 10:55 | XMS_ITS | Encounter Summary ---
Author Organization [facility] Address [address] [facility] [place] [address] Care Team Providers Care Lavatory Attendant Name Role Phone Unavailable Primary Care Provider Unavailabl e Encounter Details DateTypeDepartmentCare Team (Latest Contact Info)Cdoqafllvah86/04/2025linisync Result Encounter [facility] External Department Unsolicited Ha Baker DO [address] [place] [address] Social History Tobacco UseTypesPacks/DayYears UsedDateSmoking Tobacco: NeverSmokeless Tobacco: NeverAlcohol UseStandard Drinks/WeekCommentsYes2 (1 standard drink = 0.6 oz pure alcohol)Alcohol: 1 or 2 drinks, 2 to 4 times a month; Caffeine: 1 can /weekPHQ-2 AnswerDate RecordedPatient Health Questionnaire-2 Waehc316 Estimated Date of BaragxobOlpedshiHck29/13/2026Based on UltrasoundSex and Gender InformationValueDate RecordedSex Assigned at UdrskQswakq19/30/2023 8:23 AM EDT Legal LlsRgllrr97/15/2023 7:11 PM EDTGender KfqcukymAdxoru97/30/2023 8:23 AM EDT Sexual JorvyqwprwaNbjfcoeu35/30/2023 8:23 AM EDTdocumented as of this encounter Plan of Treatment DateTypeDepartmentCare Team (Latest Contact Info)Bfcnqzhtsod48/22/2025 9:00 AM ESTAncillary Procedure [facility] [address] [place] [address] 02/26/2025 10:40 AM ESTRoutine [facility] [place] [facility] [address] [place] [address] Tess Lopez, KALIE [address] [facility] [place] [address] 07/04/2025 10:10 AM EDTOffice Visit [facility] [place] [facility] [address] [place] [address] Allen Carr MD [address] [place] [address] documented as of this encounter Procedures Procedure NamePriorityDate/TimeAssociated DiagnosisCommentsGLUCOSE TOLERANCE 3 ICTMKsnmtbt08/04/2025 9:59 AM EST documented in this encounter Results * (ABNORMAL) GLUCOSE TOLERANCE 3 HOUR (01/30/2025 [...] 01/30/2025 1:19 PM EST Authorizing ProviderResult TypeResult StatusCorey Samuel DOLAB BLOOD ORDERABLES Final ResultPerforming OrganizationAddressCity/State/ZIP CodePhone Number [facility] documented in this encounter Visit Diagnoses Not on filedocumented in this encounter
[2025-02-13 11:17] VITALS: BP 146/66; PULSE 100
[2025-02-13 11:22] VITALS: BP 127/58; PULSE 100
== END 2025-02-13 11:59 | disposition home or self-care (01) ==
LOC: US 10:51 → FBC 10:52
PROVIDERS: Visit Provider Obstetrics & Gynecology
DX: O99.283 Endocrine, nutritional and metabolic diseases complicating pregnancy, third trimester (principal); Z3A.31 31 weeks gestation of pregnancy
CPT/HCPCS: 76818

== ENCOUNTER 2025-02-19 07:45 | Outpatient (OUT) | payer OTHER, SELFPAY ==
--- OUTSIDE RECORDS SUMMARY | 2025-02-07 10:20 | XMS_ITS | Encounter Summary ---
Author Organization [facility] Address [address] [place] [address] Care Team Providers Care Tire Service Technician Name Role Phone Unavailable Primary Care Provider Unavailabl e Reason for Visit * ReasonCommentsHashimoto's Thyroiditis Encounter Details DateTypeDepartmentCare Team (Latest Contact Info)Zkyovipwbqe57/12/2025 10:20 AM ESTOffice Visit [facility] [address] [place] [address] Allen Carr MD [address] [place] [address] Alfredo's disease (Primary Dx); Hypothyroidism, maternal, antepartum, third trimester (HCC); Vitamin D deficiency; Encounter for dietary consultation; Class 3 severe obesity due to excess calories without serious comorbidity with body mass index (BMI) of 40.0 to 44.9 in adult ([facility]) Social History Tobacco UseTypesPacks/DayYears UsedDateSmoking Tobacco: NeverSmokeless Tobacco: Never Tobacco Cessation:Counseling Given: Not Answered Alcohol UseStandard Drinks/WeekCommentsYes2 (1 standard drink = 0.6 oz pure alcohol)Alcohol: 1 or 2 drinks, 2 to 4 times a month; Caffeine: 1 can /weekPHQ-2 AnswerDate RecordedPatient Health Questionnaire-2 Qdxbo345 Estimated Date of TwhppwmdHkpnodrjUjt94/13/2026Based on UltrasoundSex and Gender InformationValueDate RecordedSex Assigned at ZtrogNklgkc30/30/2023 8:23 AM EDT Legal RxrLvleol07/15/2023 7:11 PM EDTGender ZrzzwnzdWkhitq98/30/2023 8:23 AM EDT Sexual SrrpvclppsaGwwlypiw46/30/2023 8:23 AM EDTdocumented as of this encounter Last Filed Vital Signs Vital SignReadingTime TakenCommentsBlood Cqfolxvr776/7002/07/2025 10:32 AM EST Pimve818802/07/2025 10:32 AM ESTTemperature--Respiratory Nwrc134404/10/2024 10:32 AM ESTOxygen Ttpzkywyqf67%02/07/2025 10:32 AM ESTInhaled Oxygen Concentration-- Obzpum802 kg (240 lb 9.6 oz)02/07/2025 10:32 AM ODQLofezm142 cm (5' 3 ) 02/07/2025 10:32 AM ESTBody Mass Index42.6202/07/2025 10:32 AM ESTdocumented in this encounter Progress Notes * Allen Carr MD - 02/07/2025 10:20 AM EST Raya Mathur is a 29 y.o. female No ref. provider found presents with chief complaint of Alfredo's Thyroiditis HPI: IM : follow up on 02/07/2025 for uncontrolled hypothyroidism. on levothyroxine 325 mcg daily. She is 31 weeks , due date 04/11/2024. Lab in January/2025 TSH 4.35, free T4 1.22 ( 0.76-1.46, free T3 2.4 ( 2.18-3.74) IM : follow up on 10/04/2024 for [...] SUBJECTIVE: MEDICATIONS: Current Outpatient Medications Medication Instructions Alcohol Swabs (Alcohol Prep Pad) 70 % pads 1 Pad, Topical, Daily, Use four times daily to check FSBS. bisacodyl (Dulcolax) 10 MG suppository UNWRAP AND INSERT 1 SUPPOSITORY RECTALLY DAILY FOR 10 DAYS Blood Glucose Monitoring Suppl ([employer] Glucometer) w/Device kit 1 kit, Does not [...] REVIEWED AND NEGATIVE OBJECTIVE: Visit Vitals BP 112/70 Pulse 89 Resp 18 Ht 5' 3 Wt 240 lb 9.6 oz LMP 06/26/2024 SpO2 98% BMI 42.62 kg/m?? OB Status Smoking Status Never BSA 2.2 m?? Physical Exam Constitutional: Appearance: Normal appearance. [...] - T4, free; Future - TSH; Future - Synthroid 300 MCG tablet; Take 1 tablet (300 mcg) by mouth in the morning. Take before meals. We will continue with Synthroid 325 mcg daily to keep free T4 free T3 high during . Hypothyroidism, maternal, antepartum, third trimester (HCC) We will decrease her thyroid medication after delivery to her baseline 250 mcg daily or 300 mcg 6 days a week. Vitamin D deficiency Encounter for dietary consultation Class 3 severe obesity due to excess calories without serious comorbidity with body mass index (BMI) of 40.0 to 44.9 in adult ([facility]) Diet and exercise reviewed with the patient Follow up in about 6 months (around 08/08/2025). documented in this encounter Plan of Treatment DateTypeDepartmentCare Team (Latest Contact Info)Wzpzydwrrud51/31/2025 10:40 AM ESTRoutine [facility] [address] [place] [address] Tess Lopez NP [address] [place] [address] 07/04/2025 10:10 AM EDTOffice Visit [facility] [address] [place] [address] Allen Carr MD [address] [place] [address] NameTypePriorityAssociated DiagnosesOrder ScheduleT3, freeLabRoutine Alfredo's disease Expected: 02/07/2025 (Approximate), Expires: 02/07/2026T4, freeLabRoutine Alfredo's disease Expected: 02/07/2025 (Approximate), Expires: 02/07/2026TSHLabRoutine Alfredo's disease Expected: 02/07/2025 (Approximate), Expires: 02/07/2026documented as of this encounter Visit Diagnoses Diagnosis Alfredo's disease- Primary Chronic lymphocytic thyroiditis Hypothyroidism, maternal, antepartum, third trimester (HCC) Vitamin D deficiency Encounter for dietary consultation Class 3 severe obesity due to excess calories without serious comorbidity with body mass index (BMI) of 40.0 to 44.9 in adult ([facility]) documented in this encounter
--- OUTSIDE RECORDS SUMMARY | 2025-02-13 09:00 | XMS_ITS | Encounter Summary ---
Author Organization [facility] Address [address] [place] [address] Care Team Providers Care Sexual Assault Nurse Name Role Phone Unavailable Primary Care Provider Unavailabl e Reason for Visit * ReasonCommentsRoutine Visit Encounter Details DateTypeDepartmentCare Team (Latest Contact Info)Aylvdzcftey53/18/2025 9:00 AM ESTRoutine [facility] OBGYJarek [address] [facility] [place] [address] Karla Matthews PA [address] [facility] [address] [place], [facility]11 Third trimester ([facility]); 31 weeks gestation of ([facility]); Hypothyroidism, unspecified type Social History Tobacco UseTypesPacks/DayYears UsedDateSmoking Tobacco: NeverSmokeless Tobacco: NeverAlcohol UseStandard Drinks/WeekCommentsYes2 (1 standard drink = 0.6 oz pure alcohol)Alcohol: 1 or 2 drinks, 2 to 4 times a month; Caffeine: 1 can /weekPHQ-2 AnswerDate RecordedPatient Health Questionnaire-2 Lzvgx401 Estimated Date of BcpghbgpSwcfwqpwOva38/13/2026ased on UltrasoundSex and Gender InformationValueDate RecordedSex Assigned at NodzhKzmowm29/30/2023 8:23 AM EDT Legal XcaTfsalb11/15/2023 7:11 PM EDTGender OkuogzuyMiutee80/30/2023 8:23 AM EDT Sexual CcgdkvvixkwAzwtooib28/30/2023 8:23 AM EDTdocumented as of this encounter Last Filed Vital Signs Vital SignReadingTime TakenCommentsBlood Vfyvnjib868/8402/13/2025 9:12 AM EST Pulse--Temperature--Respiratory Rate--Oxygen Saturation--Inhaled Oxygen Concentration--Pdwqhm920 kg (244 lb)02/13/2025 9:12 AM ESTHeight--Body Mass [...] 11/16/2017 Unable to comply with treatment 07/26/2022 ([facility] 11/28/2017 Exposure to STD 05/31/2023 Encounter for weight management 05/31/2023 Dermatitis, atopic 08/04/2005 Allergic rhinitis 02/18/2000 Asthma ([facility]) 02/18/2000 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 Third trimester ([facility]) Z34.93 2. 31 weeks gestation of ([facility]) Z3A.31 POCT urinalysis dipstick manually resulted [...] Plan of Treatment DateTypeDepartmentCare Team (Latest Contact Info)Dedzklbhmov24/31/2025 10:40 AM ESTRoutine [facility] [address] [facility] [place] [address] Tess Lopez, KALIE [address] [facility] [place] [address] 07/04/2025 10:10 AM EDTOffice Visit [facility] [address] [place] [address] Allen Carr MD [address] [place] [address] NameTypePriorityAssociated DiagnosesOrder ScheduleUS biophysical profile w non stress testImagingRoutine Hypothyroidism, unspecified type Expected: 02/13/2025 (Approximate), Expires: 08/14/2025documented as of this encounter Procedures Procedure NamePriorityDate/TimeAssociated DiagnosisCommentsPOCT URINALYSIS OYCLARMQQhsuors45/18/2025 9:22 AM EST 31 weeks gestation of ([facility]) documented in this encounter Results * POCT [...] 9:22 AM EST Narrative Authorizing ProviderResult TypeResult Status[facility] SAULT TEST ENTER/EDIT ORDERABLESFinal Result documented in this encounter Visit Diagnoses Diagnosis Third trimester ([facility]) state, incidental 31 weeks gestation of ([facility]) Hypothyroidism, unspecified type documented in this encounter
--- OUTSIDE RECORDS SUMMARY | 2025-02-17 09:00 | XMS_ITS | Encounter Summary ---
Author Organization [facility] Address [address] [place] [address] Care Team Providers Care Parimutuel Clerk Name Role Phone Unavailable Primary Care Provider Unavailabl e Encounter Details DateTypeDepartmentCare Team (Latest Contact Info)Dxapzurxnrq49/22/2025 9:00 AM ESTAncillary Procedure [facility] [address] [place] [address] History of hyperthyroidism; Macrosomia of fetus affecting management of mother in first trimester, single or unspecified fetus ([facility]) Social History Tobacco UseTypesPacks/DayYears UsedDateSmoking Tobacco: NeverSmokeless Tobacco: NeverAlcohol UseStandard Drinks/WeekCommentsYes2 (1 standard drink = 0.6 oz pure alcohol)Alcohol: 1 or 2 drinks, 2 to 4 times a month; Caffeine: 1 can /weekPHQ-2 AnswerDate RecordedPatient Health Questionnaire-2 Eoico527 Estimated Date of ErsdlvfcMpczktghTov98/13/2026ased on UltrasoundSex and Gender InformationValueDate RecordedSex Assigned at IxmqsWzgydy33/30/2023 8:23 AM EDT Legal JziQqqmav22/15/2023 7:11 PM EDTGender DundseskNhezta93/30/2023 8:23 AM EDT Sexual BrurmucjfhqTyfvsplf44/30/2023 8:23 AM EDTdocumented as of this encounter Plan of Treatment DateTypeDepartmentCare Team (Latest Contact Info)Cspvzreqqlj22/31/2025 10:40 AM ESTRoutine [facility] [address] [place] [address] Tess Lopez, KALIE [address] [place] [address] [place] [address] 07/04/2025 10:10 AM EDTOffice Visit [facility] [place] [facility] [address] [place] [phone] Allen Carr MD [address] [place] [address] documented as of this encounter Procedures Procedure NamePriorityDate/TimeAssociated DiagnosisCommentsUS OB FOLLOW UP TRANSABDOMINAL ZSKHKTSNEpabyau05/22/2025 9:29 AM EST History of hyperthyroidism Macrosomia of fetus affecting management of mother in first trimester, single or unspecified fetus ([facility]) documented in this encounter Results [...] in first trimester, single or unspecified fetus ([facility]) documented in this encounter
--- NOTE | 2025-02-19 | US_ITS ---
[facility] [place] [id number] Patient Name: BRITTNEE SMITH MRN: [id number] date: 1995 Sex: F Assigned Patient Location: [facility] Current Patient Location: Accession/Order Number: [id number] Exam Date: 02/19/2025 10:20 Report Date: 02/19/2025 11:27 At the request of: IVY RUVALCABA DO Procedure: US OB BPP w non-stress BIOPHYSICAL PROFILE: CLINICAL INFORMATION: MACROSOMIA O 36.61X0 COMPARISON: 02/13/2025 There is a single live intrauterine gestation in cephalic presentation. The reported gestational age is 32 weeks 5 days. The heart rate jvivcnry698 beats per minute. FINDINGS: TONE: 1 or more episodes of activity extension and flexion of extremity or opening and closing of the hand [Y] 2/2 GROSS BODY MOVEMENTS: 3 or more discrete body or limb movements [Y] 2/2 BREATHING MOVEMENTS: 1 or more episodes of breathing lasting at least 30 seconds [Y] 2/2 BLANCHE: A single deepest vertical pocket of amniotic fluid greater than 2 cm [Y] 2/2 BLANCHE: 12.7 cm Total score: 8/8 US/US OB BPP w non-stress IMPRESSION: NORMAL BIOPHYSICAL PROFILE Impression dictated by: Brandy Shields M.D. 02/19/2025 11:27 AM Dictation Location: [place] [address] Electronically authenticated by: [id number] Y Date: 02/19/2025 11:27
--- OUTSIDE RECORDS SUMMARY | 2025-02-19 07:49 | XMS_ITS ---
Author Organization [facility] Address [address] [place] [address] Care Team Providers Care Pattern Hanger Name Role Phone Unavailable Primary Care Provider Unavailabl e [facility] ([facility]) Status:Closed (Closed) Start date:11/11/2024 Enrollment date:11/15/2024 Enrollment reason:Identified by Health Plan End date:02/13/2025 Close reason:Unable to reach patient Continued Care and Services Coordination
--- OUTSIDE RECORDS SUMMARY | 2025-02-19 07:49 | XMS_ITS | Clinical Summary ---
Author Organization [facility] Address [address] [place] [address] Care Team Providers Care Aviation Ordnance Officer Name Role Phone Unavailable Primary Care Provider Unavailabl e Allergies Active AllergyReactionsCriticalityNoted DateCommentsOtherRash,IbprzJkm56/24/2023 PEDIAZOLE Sulfa AntibioticsOther,AghzJamtzh24/22/2012 Other Reaction(s): Unknown YhjhsimlweblztoqPtrpDxi10/22/2023 Medications MedicationSigDispense QuantityRefillsLast FilledStart DateEnd DateStatus fluticasone (Flonase) 50 MCG/ACT nasal spray Administer 1 spray into each nostril Daily Shake gently. Before first use, prime pump. After use, clean tip and replace cap.Active Vit-Fe Fumarate-FA ( Vitamins) 28-0.8 MG tablet Indications:Positive urine test ([facility])Take 1 tablet by mouth Daily 30 tablet 306/30/725998/306Active bisacodyl (Dulcolax) 10 MG suppository Indications:Constipation, unspecified constipation typeUNWRAP AND INSERT 1 SUPPOSITORY RECTALLY DAILY FOR 10 DAYS 10 suppository 5Active levothyroxine (Synthroid) 25 MCG tablet Indications:History of hyperthyroidismTake 1 tablet (25 mcg) by mouth in the morning. Take before meals. 30 tablet 11011/08/994781/6Active Synthroid 300 MCG tablet Indications:Alfredo's disease,Thyroid disease during , first trimester (HCC)Take 1 tablet (300 mcg) by mouth Daily 90 tablet 109/15/078130/6Active Additional Information Patient not taking.Reported on 02/07/2025 [...] meals. 360 tablet Discontinued(Reorder) Lancets Ultra Thin ww [facility] Indications:Gestational diabetes mellitus (GDM), antepartum, gestational diabetes [...] for atotal of 4times daily. 150 strip 311/13/82556404/11/2024Expired Additional Information Patient taking differently:1 strip In Vitro Daily,(No times of day reported), Use in the morning prior to breakfast, 1 hour after each meal for a total of 4times daily., Reported on 02/07/2025 Active Problems ProblemNoted DateDiagnosed DateAcute okteeulkyf69/17/2025Acute streptococcal ykopeelwlxi76/17/2025Exposure to STD05/31/2023Encounter for weight management 0410Xxhhze67/30/2023luster headache /30/2023ongenital hypothyroidism without pmtqgl8007/26/2022Missed sfvbnj0807/26/2022Unable to comply with bnocxgqrg73/30/2023Obesity affecting , antepartum ([facility]) 11/13/2018Pregnancy ([facility])11/28/20171727Fhazdsuzdmgucaw30/02/2018Obesity (BMI 35.0-39.9 without comorbidity)11/16/20179028Hixggwtxiis80/01/2017Acute pharyngitis 09/10/2009Chondromalacia of ryrwasf3705/27/2009Encounter for childhood immunizations appropriate for age0708/30/2007Dermatitis, ejgzpx7708/04/2005llergic eyzhtbni01/22/1417Mtikqd03/22/1833Hktywrvbqna45/01/1994Estimated Date of ZdtdwibqFaqrapklKot94/13/2026ased on Ultrasound Resolved Problems ProblemNoted DateDiagnosed DateResolved DatePregnancy-induced hypertension ([facility])nemia of ([facility]) Encounters DateTypeDepartmentCare FdwjZzzgulyqipe94/22/2025 9:00 AM ESTAncillary [place] [address] History of hyperthyroidism; Macrosomia of fetus affecting management of mother in first trimester, single or unspecified fetus ([facility])02/13/2025 9:00 AM [place] [address] Karla Matthews PA Third trimester ([facility]); 31 weeks gestation of ([facility]); Hypothyroidism, unspecified type02/13/2025linisync Result Encounter [facility] External Department Unsolicited Ivy Baker, DO 02/13/2025Patient Outreach [facility] [address] [place] [address] Karla Campa LPN 02/13/2025amb flowsheet [facility] OBJACQUELINE [address] [place] [address] Karla Matthews PA 02/10/2025bstract [facility] [place] OBJACQUELINE [address] [place] [address] Ivy Baker, DO 02/07/2025 10:20 AM ESTOffice Visit [facility] [address] [place] [address] Allen Carr MD Alfredo's disease (Primary Dx); Hypothyroidism, maternal, antepartum, third trimester (HCC); Vitamin D deficiency; Encounter for dietary consultation; Class 3 severe obesity due to excess calories without serious comorbidity with body mass index (BMI) of 40.0 to 44.9 in adult ([facility]02/07/2025amb flowsheet [facility] [place] [facility] [address] [place] [address] Allen Carr MD 02/05/2025linisync Result Encounter NOMS External Department Unsolicited Ivy Baker, DO 01/30/2025linisync Result Encounter NOMS External Department Unsolicited Ivy Baker, DO 01/28/2025 11:30 AM ESTRoutine [facility] [place] OBGYJarek [address] [place] [address] Ivy Baker, DO Third trimester ([facility]); 29 weeks gestation of ([facility]); Elevated glucose tolerance test; History of hyperthyroidism; Macrosomia of fetus affecting management of mother in first trimester, single or unspecified fetus ([facility])5Bamboo flowsheet [facility] [place] [facility] [address] [place] [address] Ivy Baker, DO 01/22/2025bstract [facility] [place] [facility] [address] [place] [address] Ivy Baker, DO 01/15/2025Patient Outreach [facility] [address] [place] [address] Karla Campa LPN 01/09/2025 10:50 AM ESTRoutine [facility] [place] [facility] [address] [place] [address] Karla Matthews, PA Second trimester ([facility]); 26 weeks gestation of ([facility]); Gestational diabetes mellitus (GDM), antepartum, gestational diabetes method of control unspecified([facility]); Elevated glucose tolerance test01/09/2025amboo flowsheet [facility] [place] [facility] [address] [place] [address] Karla Matthews PA 12/13/2024bstract [facility] [place] [facility] [address] [place] [address] Ivy Baker, DO 12/13/2024bstract [facility] [place] [facility] [address] [place] [address] Ivy Baker, DO 12/13/2024External Result Encounter [facility] [place] [facility] [address] [place] [address] Ivy Baker, DO 12/13/2024Patient Outreach [facility] [address] [place] [address] Karla Campa LPN 12/12/2024 9:30 AM EDTProcedure Visit [facility] [place] OBGYJarek [address] [place] [address] [place] [address] Ivy Baker, Colposcopy needed after cervical smear; Second trimester ([facility]); 22 weeks gestation of ([facility])from Last 3 Months Immunizations ImmunizationAdministration DatesNext IxfCivn5008/04/2005 Family History Medical HistoryRelationNameCommentsHypothyroidismFatherDiabetesMaternal GrandfatherGrandpaDiabetesOtherpaternal auntsThyroid diseaseOtherpaternal side LymphomaPaternal GrandfatherRelationNameStatusCommentsFatherAliveMaternal GrandfatherGrandpaMotherAliveOtherPaternal Grandfather Social History Tobacco UseTypesPacks/DayYears UsedDateSmoking Tobacco: NeverSmokeless Tobacco: Never Tobacco Cessation:Counseling Given: Not Answered Alcohol UseStandard Drinks/WeekCommentsYes2 (1 standard drink = 0.6 oz pure alcohol)Alcohol: 1 or 2 drinks, 2 to 4 times a month; Caffeine: 1 can /weekPHQ-2 AnswerDate RecordedPatient Health Questionnaire-2 Vrjzn472 Estimated Date of IabzrxegGunlutjnFod37/13/2026ased on UltrasoundSex and Gender InformationValueDate RecordedSex Assigned at HhoksXqkzgz44/30/2023 8:23 AM EDT Legal RfkEiidqq92/15/2023 7:11 PM EDTGender IvpgaixuBrlzan61/30/2023 8:23 AM EDT Sexual BvplsgqfgpmGpywxvqq73/30/2023 8:23 AM EDT Last Filed Vital Signs Vital SignReadingTime TakenCommentsBlood Humtkibl318/8402/13/2025 9:12 AM EST Gnryw280102/07/2025 10:32 AM ESTTemperature--Respiratory Vtug208504/10/2024 10:32 AM ESTOxygen Wtvpvnetso14%02/07/2025 10:32 AM ESTInhaled Oxygen Concentration-- Eloxvo159 kg (244 lb)02/13/2025 9:12 AM YRWLulglr319 cm (5' 3 )02/07/2025 10:32 AM ESTBody Mass Index43.22104/10/2024 10:32 AM EST Plan of Treatment DateTypeDepartmentCare Team (Latest Contact Info)Fykdvmkoadm60/31/2025 10:40 AM ESTRoutine [facility] [place] [facility] [address] [place] [address] Tess Lopez, KALIE [address] [place] [address] 07/04/2025 10:10 AM EDTOffice Visit [facility] [place] [facility] [address] [place] [address] Allen Carr MD [address] [place] [address] Procedures Procedure NamePriorityDate/TimeAssociated DiagnosisCommentsUS OB FOLLOW UP TRANSABDOMINAL YWXVQRITFpzyjht95/22/2025 9:29 AM EST History of hyperthyroidism Macrosomia of fetus affecting management of mother in first trimester, single or unspecified fetus ([facility]) OB BPP W NON-FTEHYS7102/13/2025 11:39 AM EST POCT URINALYSIS PTTMIZAGZwcqaeq51/18/2025 9:22 AM EST 31 weeks gestation of ([facility]) [facility] UA (CLEAN/CATCH) FITNESS DIRECTOR/MICRO IF IND.Navkqrs0602/05/2025 11:15 AM EST T4, ZNVMRoqiixj11/04/2025 1:07 PM EST Hypothyroidism, unspecified HSMPqtommy66/04/2025 11:17 AM EST Hypothyroidism, unspecified T3, TEDWKbnmgoj00/04/2025 11:17 AM EST Hypothyroidism, unspecified GLUCOSE TOLERANCE 3 NWGERyztvpo72/04/2025 9:59 AM EST POCT URINALYSIS ULXRTYQAEztyfst76/02/2025 11:47 AM EST 29 weeks gestation of ([facility]) POCT URINALYSIS PSYGYZQMQjmnpjn64/13/2025 11:23 AM EST Second trimester ([facility]) US OB 14+ WEEKS ANATOMY SCAN12/13/2024 10:23 AM EDT EKESYNERDRWsnvfqd35/16/2025 10:08 AM EDT Colposcopy needed after cervical smear Second trimester ([facility]) 22 weeks gestation of ([facility]) POCT URINALYSIS BBVEHZSKPkgrbxk52/16/2025 9:30 AM EDT 22 weeks gestation of ([facility]) from Last 3 Months Results * US OB follow up transabdominal [...] Luciano MD Authorizing ProviderResult TypeResult StatusCorey Samuel DOI OB US PROCEDURES Final Result * US OB BPP W NON-STRESS (02/13/2025 11:39 AM EST)Anatomical Region LateralityModalityOtherSpecimen (Source)Anatomical Location / Laterality Collection Method / VolumeCollection TimeReceived Time02/13/2025 11:39 AM EST Narrative 02/13/2025 11:41 AM EST [facility] ?[address] ? [place] [address] ? Ultrasound Report ? Signed ? Patient: YSASI,BRITTNEE S ?MR#: [id number] ?? : 1995 ?Acct:[id number] ?? Age/Sex: 29 / F ?ADM Date: 02/13/25 ?? Loc: [facility] ??250-1 ? Attending Dr: Ivy Baker D.O. ? Ordering Physician: Ivy Baker D.O. ?? Date of Service: 02/13/25 ?? Procedure(s): US OB BPP w non-stress ?? Accession Number(s): [id number] ? cc: Ivy Baker D.O.; Physician,Non-Staff Mirela ? [facility] ? [address] ? [place] [address] ? Patient Name: ?? BRITTNEE SMITH ? MRN: [facility]:[id number] ? date: 1995 ?Sex: F ?? Assigned Patient Location: [facility] ?? Current Patient Location: [facility] ?? Accession/Order Number: [id number] ?? Exam Date: 02/13/2025 ??10:55 ?Report Date: 02/13/2025 ??11:39 ? At the request of: ?? IVY ??SAMUEL ??DO ? Procedure: ??US OB BPP w non-stress ? BIOPHYSICAL PROFILE: ? CLINICAL INFORMATION: Macrosomia of fetus ? COMPARISON: None ? There is a single live intrauterine gestation in cephalic presentation. ??The ?? reported gestational age is 31 weeks 6 days. ??The heart rate measures ?? 159 beats per minute. ? FINDINGS: ? TONE: 1 or more episodes of activity extension and flexion of ?? extremity or opening and closing of the hand ?[Y] ? 2/2 ?? GROSS BODY MOVEMENTS: 3 or more discrete body or limb movements ?[Y] ? 2/2 ?? BREATHING MOVEMENTS: 1 or more episodes of breathing lasting at ?? least 30 seconds ? [Y] ? 2/2 ?? BLANCHE: A single deepest vertical pocket of amniotic fluid greater than 2 cm ? [Y] ? 2/2 ?BLANCHE: 16.0 cm ? Total score: ? 8/8 ? US/US OB BPP w non-stress ?? IMPRESSION: ? NORMAL BIOPHYSICAL PROFILE ? Impression dictated by: Brandy Shields M.D. ??02/13/2025 11:39 AM ? Dictation Location: RADIO-PC-30 ? Electronically authenticated by: [id number] ??Y ?? Date: 02/13/2025 ??11:39 ? Dictated By: ?Brandy Shields M.D. ? Signed By: ?12/18/25 1141 ? DD/ 1139 ? TD/TT: ? Spa Associate: Procedure Note Radiology, Radiologist, - 02/13/2025 [place] [address] Ultrasound Report Signed Patient: BRITTNEE SMITH SMR#: [id number] : 1995Acct:[id number] Age/Sex: 29 / FADM Date: 02/13/25 Loc: [facility] 250-[address]: Ivy Baker D.O. Ordering Physician: Ivy Baker D.O. Date of Service: 02/13/25 Procedure(s): US OB BPP w non-stress Accession Number(s): [id number] cc: Ivy Baker D.O.; Physician,Non-Staff M.DMelisa The [place] [id number] Patient Name: BRITTNEE SMITH MRN: [facility]:[id number] date: 1995 Sex: F Assigned Patient Location: [facility] Current Patient Location: [facility] Accession/Order Number: [id number] Exam Date: 02/13/2025 10:55 Report Date: 02/13/2025 11:39 At the request of: IVY BAKER DO Procedure: US OB BPP w non-stress BIOPHYSICAL PROFILE: CLINICAL INFORMATION: Macrosomia of fetus COMPARISON: None There is a single live intrauterine gestation in cephalic presentation.The reported gestational age is 31 weeks 6 days. The heart ratemeasures 159 beats per minute. FINDINGS: TONE: 1 or more episodes of activity extension and flexion of extremity or opening and closing of the hand [Y] 2/2 GROSS BODY MOVEMENTS: 3 or more discrete body or limb movements [Y] 2/2 BREATHING MOVEMENTS: 1 or more episodes of breathing lastingat least 30 seconds [Y] 2/2 BLANCHE: A single deepest vertical pocket of amniotic fluid greater than 2 cm [Y] 2/2 BLANCHE: 16.0 cm Total score: 8/8 US/US OB BPP w non-stress IMPRESSION: NORMAL BIOPHYSICAL PROFILE Impression dictated by: Brandy Shields M.D. 02/13/2025 11:39 AM Dictation Location: [place] [address] Electronically authenticated by: [id number] Y Date: 1:39 Dictated By: Brandy Shields M.D. Signed By:02/13/25 1141 DD/ 1139 TD/TT: Spa Associate: Authorizing ProviderResult TypeResult StatusCorey Samuel DOCLINISYNC IMAGINGFinal Result * POCT urinalysis dipstick manually resulted (02/13/2025 [...] Location / LateralityCollection Method / VolumeCollection TimeReceived LzhdGmmeb29/18/2025 9:22 AM EST Narrative Authorizing ProviderResult TypeResult StatusAmy [facility] TEST ENTER/EDIT ORDERABLESFinal Result * (ABNORMAL) [facility] UA (CLEAN/CATCH) FITNESS DIRECTOR/MICRO IF IND. (02/05/2025 11:15 AM EST) ComponentValueRef [...] specimen / Unknown Narrative Authorizing ProviderResult TypeResult Statuscherri Carr [facility] BLOOD ORDERABLESFinal ResultPerforming OrganizationAddressCity/State/ZIP CodePhone Number [facility] * T3, free (01/30/2025 11:17 AM EST)Specimen (Source)Anatomical Location / LateralityCollection Method / VolumeCollection TimeReceived TimeBloodVenous blood specimen / Unknown Narrative Authorizing ProviderResult TypeResult StatusDavis Hospital And Medical Centerantonio Carr [facility] BLOOD ORDERABLESFinal ResultPerforming OrganizationAddressCity/State/ZIP CodePhone Number [facility] * TSH (01/30/2025 11:17 AM EST)Specimen (Source)Anatomical Location / Laterality Collection Method / VolumeCollection TimeReceived TimeBloodVenous blood specimen / Unknown Narrative Authorizing ProviderResult TypeResult Statuscherri Carr [facility] BLOOD ORDERABLESFinal ResultPerforming OrganizationAddressCity/State/ZIP CodePhone Number [facility] [...] 9:59 AM EST01/30/2025 10:03 AM EST Narrative [facility] - 01/30/2025 1:19 PM EST Authorizing ProviderResult TypeResult StatusCorey Samuel [facility] BLOOD ORDERABLES Final ResultPerforming OrganizationAddressCity/State/ZIP CodePhone Number [facility] * US OB 14+ weeks anatomy scan (12/13/2024 10:23 AM EDT)Anatomical Region LateralityModalityBodyUltrasoundSpecimen (Source)Anatomical Location / LateralityCollection Method / VolumeCollection TimeReceived Time12/13/2024 10:23 AM EDT Narrative 12/13/2024 10:23 AM EDT THIS EXAM WAS PERFORMED AT [facility] NAME: ??LUIS BEAULIEU : 1995 SEX: F Accession Number: [id number] ORDERING PHYSICIAN: FUAD PLASCENCIA REFERRING PHYSICIAN: IVY BAKER Coding Procedures ? 26645: Ultrasound, uterus, real time with image documentation, and maternal evaluation ? plus detailed anatomic examination, transabdominal approach;single or first gestation ? 25097: Ultrasound, uterus, real time with image documentation, [...] view: limited by maternal body habitus. Medical Hot Car Operator Hot Car Operator declined Wolfe . Number of fetuses: 1 [...] (oz) ? 3 oz EFW by: ?Hadlock (LFM-RH-BL-FL) Extended Tibia ??36.4 mm 23w 5d 72% Jocelyn Customer Service Representative Teller ? 4.1 mm CM ? 6.0 mm [...] Heart / Thorax RVOT view. LVOT view. 3-gqjjcc-bnrlgwh view. Ductal arch view. Interventricular septum. Great [...] MVP measures 4.7 cm. Recommendations Please see [facility] documentation from today. Subsequent follow up or other follow up as clinically determined by primary OB provider unless otherwise specified by [facility]. Results forwarded to ordering provider so they can follow up with the patient as necessary. The copy-to physician of this order is IVY Phillips The ordering physician of this order is FUAD Salvador Procedure Note Radiology, Radiologist, MD - 12/13/2024 THIS EXAM WAS PERFORMED AT [facility] NAME: LUIS BEAULIEU : 1995 SEX: F Accession Number: [id number] ORDERING PHYSICIAN: FUAD PLASCENCIA REFERRING PHYSICIAN: IVY BAKER Coding Procedures 21524: Ultrasound, uterus, real time with image documentation, and maternal evaluation plus detailed anatomic examination, transabdominalapproach;single or first gestation 94264: Ultrasound, uterus, real time with imagedocumentation, transvaginal [...] Suboptimalview: limited by maternal body habitus. Medical Hot Car Operator Hot Car Operator declined Wolfe . Number of fetuses: 1 [...] EFW (oz) 3 oz EFW by: Hadlock (RQF-CN-UU-FL) Extended Tibia 36.4 mm 23w 5d 72% Jocelyn Customer Service Representative Teller 4.1 mm CM 6.0 mm 60% Nicolaides [...] Heart / Thorax RVOT view. LVOT view. 1-ringcn-vpcpuab view. Ductal archview. Interventricular septum. Great vessels. [...] byprimary OB provider unless otherwise specified by [facility]. Results forwarded to ordering provider so [...]
--- OUTSIDE RECORDS SUMMARY | 2025-02-19 07:49 | XMS_ITS | Data Portability ---
Author Organization [place] [facility] Address [address] [place] [address] Care Team Providers Care Diabetes Nurse Name Role Phone CAROLCHEYENNEJarekROSS Primary Care Provider [phone] Assessment Encounter Date Assessment Date Assessment LastModified [...] Organization Detail LastModifiedTime 03/12/2018 US, echocardiogramNo observation recorded.ewhube9Hjn Dxdpnwhpt28/14/2019 13:49:52 Result Notes None recorded. Medical Equipment None Reported. Allergies Allergen ID Allergen Name Allergen Category Reaction Reaction Severity Criticality Documentation Date Start Date Code Code System Note Provider Name and Address Organization Details Recorded Time 813 Substance with sulfo namide structure and antibacterial mechanism of action (substance) medication Not available Not available Not /15/[id number] Vasiliy ascencio [place] [facility] Qgomaxvybbd50/15/2019 15:19:33 Medications Name Sig Start Date Stop [...] Address Organization Details Last Updated DateTime 9 20107.4 g 36 kg/m2 162.56 cm 16 /min 94 /min 98 % 112/60 mm[Hg] [facility] 9 15:19:18 Social History Question Answer Notes LastModified by Organization D etails LastModified Time Tobacco Smoking Status Never Smoker [place], [place] [facility] Sxioianmhow06/15/2019 15:21:12Marital StatusSingle kteiekec65Xazeghafpha not dkkezxjwe54/15/2019What Was The Date Of Your Most Recent Tobacco Screening?03/13/[id number] not available 09/20/2018 Sex: Unknown Functional Status None recorded. Mental Status None recorded. Family History Nothing Reported Notes:mother alive father al ricky Medical History Condition Response Coronary Artery Disease N Atrial Fibrillation N Thyroid Disease N Depression N COPD N Congenital Heart Disease N Peripheral Arterial Disease N Pacemaker N Anemia N TIA N Genitourinary Disease N Gastrointestinal Disease N Deep Vein Thrombosis N Diabetes N Cardiomyopathy N Blood Clot N Myocardial Infarction N Congestive Heart Failure (CHF) N Valvular Heart Disease N Hyperlipidemia N Cancer N Stroke N Asthma N Atrial Flutter N Carotid Disease N Sleep Apnea N Sleep Disorder N Aortic Aneurysm N GERD/Reflux N High Cholesterol N Warfarin Management N Neurologic Disorder N Liver Disease N Heart Disease N Valvular Abnormalities N Arrhythmia N Hypertension N Kidney Disease N Hematologic Disease N Gynecological HistoryNo gynecological history recorded. Obstetrics History GPAL:G 0 P 0 0 0 0 Past Encounters Encounter ID Performer Location Encounter Start Date Encounter Closed Date Diagnosis/Indication Diagnosis SNOMED-CT Code Diagnosis ICD10 Code Diagnosis IMO Codes Diagnosis Note 77 Mini Gipson MD Main Office [address] [place] [address] 01/30/2018 10:52:38 01/30/2018 15:49:20 Electrocardiogram abnormal 209457076 R94.31 2002JAjit Giraldoin Office [address] [place] [address] 03/13/2018 15:10:10003/13/2018 15:47:46Systolic rimzqv29495878D90.1 Echo 01/30/18 - EF of 65-70%, trace MVR, trace BHQEtuwkzpqjqmqkh24179259A97.9 Thyroid function and medication management per PCP/endocrinology.Palpitations 51423308I31.2 Event monitor shows episodes of tachycardia, however [...] Guarantor Name 07/31/2018 1 [employer] (PPO) [id number] Munir Mathur [id number] [facility] 12/05/2022 2 [facility] (MEDICAID REPLACEMENT - HMO) [id number] Raya [facility] [id number] [facility] [employer] (PPO)Munir [id number] Ysasi Notes Date Note Type Note Provider Name and Address Orga nization Details Recorded Time 01/30/2018 text/html Patient presents today with a history of abnormal EKG results. Patient is . Associated Symptoms: chest pain. dizziness. fainting. palpitations. shortness of breath. weakness. fatigue.Mini Gipson MD [address], [place], [address], [facility] Pohzoahrmlc26/26/2018 14:34:text/html Patient is a 23 year old female with a past medical history of palpitations and hypothyroid who presents to the office for test results. Denies any chest pain, palpitations, shortness of breath, edema, n/v/d, fever/chills, headaches, dizziness, fatigue or bowel/urinary complaints.SRIKANTH [facility] Sowzswnykez54/15/2019 15:49:42 OBGyn Episode No OBEpisode recorded.
--- OUTSIDE RECORDS SUMMARY | 2025-02-19 07:49 | XMS_ITS | Encounter Summary ---
Author Organization [facility] Address [address] [place] [address] Care Team Providers Care Dancing Instructor Name Role Phone Unavailable Primary Care Provider Unavailabl e Encounter Details DateTypeDepartmentCare Team (Latest Contact Info)Ugksatadjqa59/18/2025Patient Outreach [facility] [address] [place] [address] Karla Campa LPN [address] [place] [address] Social History Tobacco UseTypesPacks/DayYears UsedDateSmoking Tobacco: NeverSmokeless Tobacco: NeverAlcohol UseStandard Drinks/WeekCommentsYes2 (1 standard drink = 0.6 oz pure alcohol)Alcohol: 1 or 2 drinks, 2 to 4 times a month; Caffeine: 1 can /weekPHQ-2 AnswerDate RecordedPatient Health Questionnaire-2 Uhcmc766 Estimated Date of PrngnehmXmkfkwrrAtn11/13/2026ased on UltrasoundSex and Gender InformationValueDate RecordedSex Assigned at GumvmPmynro27/30/2023 8:23 AM EDT Legal FglPjkwtw98/15/2023 7:11 PM EDTGender WlhqintoFvlssc36/30/2023 8:23 AM EDT Sexual NqqmecyyexkIcvwabmc07/30/2023 8:23 AM EDTdocumented as of this encounter Progress Notes * Karla Campa LPN - 02/13/2025 11:41 AM EST Monthly outreach. Call to pt X2, LVM. MyChart communication sent. [facility] closed due to unable to reachpt. documented in this encounter Plan of Treatment DateTypeDepartmentCare Team (Latest Contact Info)Imfpdwqvgib78/31/2025 10:40 AM ESTRoutine [facility] [address] [place] [address] Tess Lopez, KALIE [address] [place] [address] 07/04/2025 10:10 AM EDTOffice Visit [facility] [address] [place] [address] Allen Carr MD [address] [place] [address] documented as of this encounter Visit Diagnoses Not on filedocumented in this encounter
--- OUTSIDE RECORDS SUMMARY | 2025-02-19 07:49 | XMS_ITS | Clinical Summary ---
Author Organization [facility] Address [id number] [address] 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 hjgkya8212/13/2024Estimated Date of DeliveryCommentsYes 6Based on Ultrasound Encounters DateTypeDepartmentCare BbbsCzxyjiyrrgs25/25/2025 2:00 PM EST - 01/21/2025 11:59 PM ESTHospital Encounter [facility] - [facility]ound [address] [place] [address] Hypothyroidism affecting in second trimester Discharge Disposition: Home01/21/20257876Mzbtee20/17/2025 8:45 AM EDTOffice Visit [facility]aternal- [facility] at [facility] [address] [place] [address] Kenji Plascencia MD 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 [address] [place] [address] Screening, , for anatomic survey Discharge Disposition: Home12/13/2024Orders Only Maternal- Medicine at [facility] [address] [place] [address] Eun Mcgrath RN Hypothyroidism affecting in second trimester (Primary Dx)12/13/2024 Axidwt2612/12/2024Travelfrom Last 3 Months Family History Medical HistoryRelationNameCommentsHypothyroidismFatherDiabetesMaternal GrandfatherLiver diseaseMaternal GrandfatherDiabetesPaternal GrandfatherLymphoma Paternal GrandfatherRelationNameStatusCommentsFatherAliveMaternal Grandfather DeceasedMotherAlivePaternal Grandfather Social History Tobacco UseTypesPacks/DayYears UsedDateSmoking Tobacco: NeverSmokeless Tobacco: Never Tobacco Cessation:Counseling Given: Not Answered Alcohol UseStandard Drinks/WeekCommentsNot Currently0 (1 standard drink = 0.6 oz pure alcohol)ChildcareAnswerDate BykayjhqYdotmrovlQkkmjba28/12/2019Employment AnswerDate PjcrpfnvLstyphfdliQeapmcv05/12/2019Hunger ScreeningAnswerDate RecordedWithin the past 12 months we worried whether our food would run out before we got money to buy more.Never True12/13/2024Within the past 12 months the food we bought just didn't last and we didn't have money to get more.Never True12/13/2024Estimated Date of LkvvhkfeNvuoolziNrj32/13/2026ased on UltrasoundSex and Gender InformationValueDate RecordedSex Assigned at BirthNot on fileLegal TeiYzhjee27/06/2015 11:49 AM EDTGender IdentityNot on fileSexual OrientationNot on file Last Filed Vital Signs Vital SignReadingTime TakenCommentsBlood Ipncmdmb962/7312/13/2024 8:03 AM EDT Oyvrw987112/13/2024 8:03 AM SGXXkrudjkketk83 ??C (98.6 ??F)10/23/2024 1:18 PM EDT Respiratory Irnz560610/23/2024 2:45 PM EDTOxygen Zdqpndddig77%10/23/2024 2:45 PM EDTInhaled Oxygen Concentration--Jzkwft245.8 kg (235 lb 6.4 oz)12/13/2024 8:03 AM KSNTefynx223.6 cm (5' 4.02 )12/13/2024 8:03 AM EDTBody Mass Index40.39 12/13/2024 8:03 AM EDT Plan of Treatment Health MaintenanceDue DateLast DoneCommentsDepression Kjcfrwqvt07/01/2006dult BMI Follow Up Plan2011DTaP,Tdap and Td Vaccines (2 - Td or Tdap)08/05/2015 08/04/2005Influenza Deynpro6910/28/2024RSV ( or age 60+ yrs) (1 - Risk 1-dose series)02/14/2025dult BMI Jocflftgs24Tobacco Jwbwpnuil48Pap Smear Medical Devices Not on file Procedures Procedure NamePriorityDate/TimeAssociated DiagnosisCommentsUS MFM OB FOLLOW-UP, 1 HGZUQGozaabs14/25/2025 3:08 PM EST Hypothyroidism affecting in second trimester US MFM COMPREHENSIVE ANATOMIC LTJCMHIwurrbi74/17/2025 8:50 AM EDT Screening, , for anatomic [...] BEAULIEU : 1995 SEX: F Accession Number: [id number] ORDERING PHYSICIAN: KENJI PLASCENCIA REFERRING PHYSICIAN: IVY RUVALCABA ADDENDUM updated recommendations Coding Procedures ? 27230: Ultrasound, uterus, real time with image documentation, [...] (oz) ? 6 oz EFW by: ?Hadlock (NUN-IS-ZE-FL) Extended Tibia ??51.5 mm 30w 5d 96% Jocelyn Backend Developer ? 2.8 mm Nasal bone ? 7.7 [...] Thorax RVOT view. LVOT view. 3-vessel view. 9-dvfuiy-ilhnzmc view. Interventricular septum.Great vessels. ? Cardiac position. [...] with clinical findings and diabetesscreen. Please see [facility] recommendations from prior clinical and/or ultrasound [...] BEAULIEU : 1995 SEX: F Accession Number: [id number] ORDERING PHYSICIAN: KENJI PLASCENCIA REFERRING PHYSICIAN: IVY RUVALCABA ADDENDUM updated recommendations Coding Procedures 53492: Ultrasound, uterus, real time with image documentation, [...] EFW (oz) 6 oz EFW by: Hadlock (LBO-IC-ZJ-FL) Extended Tibia 51.5 mm 30w 5d 96% Jocelyn Backend Developer 2.8 mm Nasal bone 7.7 mm 5% [...] Thorax RVOT view. LVOT view. 3-vessel view. 7-bpccsl-jodrkxl view. Interventricular septum. Great vessels. Cardiac position. [...] MemberRelationshipSpecialtyStart DateEnd Date No Pcp, [place] [address] PCP - GeneralFamily Medicine10/23/24
--- OUTSIDE RECORDS SUMMARY | 2025-02-19 07:49 | XMS_ITS | Patient Health Record ---
Author Organization [facility] Address [address] [place] [address] Care Team Providers Care Electrolysist Name Role Phone emmy schultz Unavailable [phone] Allergies Allergen (clinical drug ingredient) Drug/Non Drug [...] Status W/U Status Risk Notes Problem Obesity (451548705) Obesity (BMI 35.0-39. 9 without comorbidity) (E66.9) Activeconfirmed Plan Of Treatment Pending Test Test Name Order Date X ray : Spines, lumbosacral 08/14/2018 URINE RAPID TEST 08/14/2018 CMP Comprehensive Metabolic Panel w/ eGF R (11905) [facility] 08/14/2018 Lipid Panel w/ Reflex to Direct LDL (148 52) [facility] 08/14/2018 Vitamin D, 25-Hydroxy, Total, Immunoassa y (44628) - [facility] 08/14/2018 HEMOGLOBIN A1c (496) [facility] 08/14/2018 UA Urinalysis Complete (3903) [facility] 07/28 CBC (includes Differential and Platelets ) (7099) [facility] 08/14/2018 TSH and FREE T4 (47770) [facility] 08/14/2018 Insurance Providers Payer Name Payer Address Payer Phone Subscriber Number Group Number Insured Name Patient Relationship to Insured Coverage Start Date Coverage End Date BCBS [facility] PPO/POS/HMO XPRESS [address] [place] [address] [id number] Lars Mathur - patient is the insured Medical (General) History Medical History History ICD Code high blood pressure THYROID DISORDERSurgical History Surgery Date(Month/Year) right hand surgery 10/11 Hospitalization History Reason Date(Month/Year) broken hand 09/10 induced 05/17/18
--- OUTSIDE RECORDS SUMMARY | 2025-02-19 07:49 | XMS_ITS | Encounter Summary ---
Author Organization [facility] Address [address] [facility] [place] [address] Care Team Providers Care Chinchilla Machine Operator Name Role Phone Unavailable Primary Care Provider Unavailabl e Encounter Details DateTypeDepartmentCare Team (Latest Contact Info)Txcbgpoipqu19/15/2025bstract SUNITA ANTHONY [address] [place] [address] Ha Baker DO [facility] [address] [place], [place] [address] Social History Tobacco UseTypesPacks/DayYears UsedDateSmoking Tobacco: NeverSmokeless Tobacco: NeverAlcohol UseStandard Drinks/WeekCommentsYes2 (1 standard drink = 0.6 oz pure alcohol)Alcohol: 1 or 2 drinks, 2 to 4 times a month; Caffeine: 1 can /weekPHQ-2 AnswerDate RecordedPatient Health Questionnaire-2 Orbek828 Estimated Date of XwurkkdwPoypuwnlOpi52/13/2026Based on UltrasoundSex and Gender InformationValueDate RecordedSex Assigned at BxmrqBdebdk46/30/2023 8:23 AM EDT Legal LniAvvxli95/15/2023 7:11 PM EDTGender OtqkldamHuwaoa47/30/2023 8:23 AM EDT Sexual OenhvplyjrnGrceszap12/30/2023 8:23 AM EDTdocumented as of this encounter Plan of Treatment DateTypeDepartmentCare Team (Latest Contact Info)Xmicchqqqli23/31/2025 10:40 AM ESTRoutine [facility] ANTHONY [address] [place] [address] Tess Lopez, KALIE [address] [place] [address] [place] [address] 07/04/2025 10:10 AM EDTOffice Visit [facility] [place] [facility] [address] [place] [address] Allen Carr MD [address] [place] [address] documented as of this encounter Visit Diagnoses Not on filedocumented in this encounter
--- OUTSIDE RECORDS SUMMARY | 2025-02-19 07:49 | XMS_ITS | Encounter Summary ---
Author Organization [facility] Address [address] [facility] [place] [address] Care Team Providers Care Customer Support Agent Name Role Phone Unavailable Primary Care Provider Unavailabl e Encounter Details DateTypeDepartmentCare Team (Latest Contact Info)Wymlcfefouj33/18/2025amboo flowsheet SUNITA ANTHONY [address] [facility] [address] Karla Matthews PA [address] [place], [facility] Social History Tobacco UseTypesPacks/DayYears UsedDateSmoking Tobacco: NeverSmokeless Tobacco: NeverAlcohol UseStandard Drinks/WeekCommentsYes2 (1 standard drink = 0.6 oz pure alcohol)Alcohol: 1 or 2 drinks, 2 to 4 times a month; Caffeine: 1 can /weekPHQ-2 AnswerDate RecordedPatient Health Questionnaire-2 Xnpfv995 Estimated Date of ZdnadlmrRdzmdzyoUel92/13/2026Based on UltrasoundSex and Gender InformationValueDate RecordedSex Assigned at XhwfkOledyt12/30/2023 8:23 AM EDT Legal AitWqvesb67/15/2023 7:11 PM EDTGender FzztztzbZcqeqj38/30/2023 8:23 AM EDT Sexual VvwddpismciFqsioncb12/30/2023 8:23 AM EDTdocumented as of this encounter Plan of Treatment DateTypeDepartmentCare Team (Latest Contact Info)Kokhwedfwun95/31/2025 10:40 AM ESTRoutine [facility] Timothy ANTHONY [address] [facility] [place] [address] Tess Lopez, KALIE [address] [place] [address] [place] [address] 07/04/2025 10:10 AM EDTOffice Visit [facility] [place] [facility] [address] [place] [address] Allen Carr MD [address] [place] [address] documented as of this encounter Visit Diagnoses Not on filedocumented in this encounter
--- OUTSIDE RECORDS SUMMARY | 2025-02-19 07:49 | XMS_ITS | Encounter Summary ---
Author Organization [facility] Address [address] [place] [address] Care Team Providers Care Program Aide Name Role Phone Unavailable Primary Care Provider Unavailabl e Encounter Details DateTypeDepartmentCare Team (Latest Contact Info)Yernsgqcoum23/12/2025amboo flowsheet [facility] [place] [facility] [address] [place] [address] Allen Carr MD [address] [place] [address] Social History Tobacco UseTypesPacks/DayYears UsedDateSmoking Tobacco: NeverSmokeless Tobacco: NeverAlcohol UseStandard Drinks/WeekCommentsYes2 (1 standard drink = 0.6 oz pure alcohol)Alcohol: 1 or 2 drinks, 2 to 4 times a month; Caffeine: 1 can /weekPHQ-2 AnswerDate RecordedPatient Health Questionnaire-2 Afepn647 Estimated Date of BifqovvoFoyaqjgxMru68/13/2026Based on UltrasoundSex and Gender InformationValueDate RecordedSex Assigned at XmrfvOjkuye95/30/2023 8:23 AM EDT Legal HxnNidczs36/15/2023 7:11 PM EDTGender GikleoydMoixgw56/30/2023 8:23 AM EDT Sexual LjdhiydhwgoZlfebujy55/30/2023 8:23 AM EDTdocumented as of this encounter Plan of Treatment DateTypeDepartmentCare Team (Latest Contact Info)Hfafglkexky22/31/2025 10:40 AM ESTRoutine [facility] OBJACQUELINE [address] [place] [address] Tess Lopez, KALIE [address] [place] [address] [place] [address] 07/04/2025 10:10 AM EDTOffice Visit [facility] [place] [facility] [address] [place] [address] Allen Carr MD [address] [place] [address] documented as of this encounter Visit Diagnoses Not on filedocumented in this encounter
--- OUTSIDE RECORDS SUMMARY | 2025-02-19 07:49 | XMS_ITS | Patient Health Record ---
Author Organization [facility] vices Address [address] [place] [place], [place] [address] Care Team Providers Care Icu Staff Nurse Name Role Phone Lance Santos Unavailable [phone] Allergies Allergen (clinical drug ingredient) Drug/Non Drug Allergy documented on EMR Reaction Allergy Type Onset Date Status PediazoleUnknownDrug Fxknqgn2907/19/2011ctiveSubstance with sulfonamide structure and antibacterial mechanism of action (substance)Sulfa AntibioticsUnknownDrug Njvnwhi0107/19/2011ctive Reason For Referral No Information Immunizations Vaccine Route Administration Date Status Comme nts *Tdap (Adacel)-VFC IM Intramuscular 08/04/2005 Administered Status:Complete ,Reason:Given or N/A , leatha (08/04/2005) 20 minute check done no reaction Vp Informatics: [employer] Parent/Guardian: present Social History Sex Assigned [...] Status Risk Notes Problem 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, 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 confirmed ProblemAcute streptococcal pharyngitis (0844057519)Acute streptococcal pharyngitis (J02.0)Activeconfirmed Comment:rapid strep positive 10 days abx F/U 2 weeks EMPHASIZED THE NEED TO COMPLETE ALL 10 DAYS,Description:Streptococcal sore throat ProblemAsthma (591442797)Asthma (J45.909)02/18/2000ActiveconfirmedProblemHealth supervision of healthy or child receiving care (V20.1) (V20.1)Active confirmedProblemAllergic rhinitis (85529042)Allergic rhinitis (J30.9)02/18/2000 ActiveconfirmedProblemHistory and physical examination, administrative (39761552)General medical examination for administrative purposes (V70.3) (V70.3)08/04/2005ctiveconfirmedProblemDermatitis, atopic (691.) (691)08/04/2005 ActiveconfirmedProblemAcute pharyngitis (581546037)Acute pharyngitis (J02.9) 09/10/2009ctiveconfirmedProblemAcute bronchitis (disorder) (58355791) Bronchitis, acute (466.0) (466.0)ActiveconfirmedProblemWell child visit (673724754)Routine or child health check (V20.2) (V20.2)08/30/2007ctive confirmedProblemAcute sinusitis (48252010)Acute infection of nasal sinus (J01.90)Problem resolvedconfirmedComment:advised to take her zyrtec 10mg po daily- states that she has zyrtec at home,Description:Acute sinusitis Plan Of Treatment No Information Insurance Providers Payer Name Payer Address Payer Phone Subscriber Number Group Number Insured Name Patient Relationship to Insured Coverage Start Date Coverage End Date [employer] [facility] [address] [address] [place] [address] [id number] Lars Mathur - patient is the [id number] 2022Medicaid CF after Humana[address] [place], [place] [id number], [employer] - patient is the insured 2022 Medical (General) History Medical History History ICD Code 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
--- OUTSIDE RECORDS SUMMARY | 2025-02-19 07:49 | XMS_ITS | Encounter Summary ---
Author Organization [facility] Address [address] [facility] [place] [address] Care Team Providers Care Geothermal Heat Pump Machinist Name Role Phone Unavailable Primary Care Provider Unavailabl e Encounter Details DateTypeDepartmentCare Team (Latest Contact Info)Srswzdkycxm33/10/2025linisync Result Encounter [facility] External Department Unsolicited Ha Baker DO [address] [place] [address] Social History Tobacco UseTypesPacks/DayYears UsedDateSmoking Tobacco: NeverSmokeless Tobacco: NeverAlcohol UseStandard Drinks/WeekCommentsYes2 (1 standard drink = 0.6 oz pure alcohol)Alcohol: 1 or 2 drinks, 2 to 4 times a month; Caffeine: 1 can /weekPHQ-2 AnswerDate RecordedPatient Health Questionnaire-2 Piqft808 Estimated Date of PkoqlvytInxnhfooQeb74/13/2026Based on UltrasoundSex and Gender InformationValueDate RecordedSex Assigned at XykozLcmwyr19/30/2023 8:23 AM EDT Legal VlxCwwyvq50/15/2023 7:11 PM EDTGender ElnqiiltLncsmy93/30/2023 8:23 AM EDT Sexual HhwcnroergeQrzzjsth14/30/2023 8:23 AM EDTdocumented as of this encounter Plan of Treatment DateTypeDepartmentCare Team (Latest Contact Info)Rgvjtvpvkka47/31/2025 10:40 AM ESTRoutine [facility] [address] [place] [address] Tess Lopez, PAYROLL EXAMINER [address] [place] [address] 07/04/2025 10:10 AM EDTOffice Visit [facility] [place] [facility] [address] [place] [address] Allen Carr MD [address] [place] [address] documented as of this encounter Procedures Procedure NamePriorityDate/TimeAssociated DiagnosisCommentsTBH UA (CLEAN/CATCH) BRAKE REPAIR SUPERVISOR/MICRO IF IND.Rxfqwlt1902/05/2025 11:15 AM EST documented in this encounter Results * (ABNORMAL) TBH UA (CLEAN/CATCH) BRAKE REPAIR SUPERVISOR/MICRO IF IND. (02/05/2025 11:15 AM EST) ComponentValueRef [...]
--- OUTSIDE RECORDS SUMMARY | 2025-02-19 07:49 | XMS_ITS | Encounter Summary ---
Author Organization [facility] Address [address] [facility] [address] Care Team Providers Care Globe Changer Name Role Phone Unavailable Primary Care Provider Unavailabl e Encounter Details DateTypeDepartmentCare Team (Latest Contact Info)Yduxjiskigf63/18/2025linisync Result Encounter [facility] External Department Unsolicited Ivy Baker DO [address] [place] [address] Social History Tobacco UseTypesPacks/DayYears UsedDateSmoking Tobacco: NeverSmokeless Tobacco: NeverAlcohol UseStandard Drinks/WeekCommentsYes2 (1 standard drink = 0.6 oz pure alcohol)Alcohol: 1 or 2 drinks, 2 to 4 times a month; Caffeine: 1 can /weekPHQ-2 AnswerDate RecordedPatient Health Questionnaire-2 Mafgq828 Estimated Date of QriivfaoVbndycfcFzm52/13/2026Based on UltrasoundSex and Gender InformationValueDate RecordedSex Assigned at RyonxVrdugc80/30/2023 8:23 AM EDT Legal FinXiyddy15/15/2023 7:11 PM EDTGender MvbkcsgyQnyiou01/30/2023 8:23 AM EDT Sexual WoqdnbqqxefRokksnsf21/30/2023 8:23 AM EDTdocumented as of this encounter Plan of Treatment DateTypeDepartmentCare Team (Latest Contact Info)Djdwlzxnkzo33/31/2025 10:40 AM ESTRoutine [facility] [address] [place] [address] Tess Lopez, INDUSTRIAL SEWER [address] [place] [address] 07/04/2025 10:10 AM EDTOffice Visit [facility] [place] [facility] [address] [place] [address] Allen Carr MD [address] [place] [address] documented as of this encounter Procedures Procedure NamePriorityDate/TimeAssociated DiagnosisCommentsUS OB BPP W NON-MOBXAP8202/13/2025 11:39 AM EST documented in this encounter Results * US OB BPP W NON-STRESS (02/13/2025 11:39 AM EST)Anatomical Region LateralityModalityOtherSpecimen (Source)Anatomical Location / Laterality Collection Method / VolumeCollection TimeReceived Time02/13/2025 11:39 AM EST Narrative 02/13/2025 11:41 AM EST [facility] ?[address] ? [place] [address] ? Ultrasound Report ? Signed ? Patient: YSASI,BRITTNEE S ?MR#: [id number] ?? : 1995 ?Acct:[id number] ?? Age/Sex: 29 / F ?ADM Date: 02/13/25 ?? Loc: [facility] ??250-1 ? Attending Dr: Ivy Baker D.O. ? Ordering Physician: Ivy Baker D.O. ?? Date of Service: 02/13/25 ?? Procedure(s): US OB BPP w non-stress ?? Accession Number(s): [id number] ? cc: Ivy Baker D.O.; Physician,Non-Staff M.D. ? [facility] ? [address] ? [place] [address] ? Patient Name: ?? BRITTNEE S YSASI ? MRN: [facility]:[id number] ? date: 1995 ?Sex: F ?? Assigned Patient Location: [facility] ?? Current Patient Location: [facility] ?? Accession/Order Number: [id number] ?? Exam Date: 02/13/2025 ??10:55 ?Report Date: [...] Dictation Location: RADIO-PC-30 ? Electronically authenticated by: [id number] ??Y ?? Date: 02/13/2025 ??11:39 ? Dictated By: ?Brandy Shields M.D. ? Signed By: ?12/18/25 1141 ? DD/ 1139 ? TD/TT: ? Spring Coverer: Procedure Note Radiology, Radiologist, MD - 02/13/2025 [place] [address] Ultrasound Report Signed Patient: BRITTNEE SMITH SMR#: [id number] : 1995Acct:[id number] Age/Sex: 29 / FADM Date: 02/13/25 Loc: [facility] 250-[address]: Ivy Baker D.O. Ordering Physician: Ivy Baker D.O. Date of Service: 02/13/25 Procedure(s): US OB BPP w non-stress Accession Number(s): [id number] cc: Ivy Baker D.O.; Physician,Non-Staff MKalani The [address] [address] Patient Name: BRITTNEE SMITH MRN: [facility]:[id number] date: 1995 Sex: F Assigned Patient Location: [facility] Current Patient Location: [facility] Accession/Order Number: [id number] Exam Date: 02/13/2025 10:55 Report Date: 02/13/2025 [...] Shields M.D. 02/13/2025 11:39 AM Dictation Location: [place] [address] Electronically authenticated by: [id number] Y Date: 1:39 Dictated By: Brandy Shields M.D. Signed By:02/13/25 1141 DD/ 1139 TD/TT: Spring Coverer: Authorizing ProviderResult TypeResult StatusCorey Samuel DOCLINISYNC IMAGINGFinal Result documented in this encounter Visit Diagnoses Not on filedocumented in this encounter
[2025-02-19 10:11] VITALS: BP 116/63; PULSE 81
== END 2025-02-19 11:04 | disposition home or self-care (01) ==
LOC: US 07:46 → FBC 10:05
PROVIDERS: Visit Provider Obstetrics & Gynecology
DX: O36.61X0 Maternal care for excessive fetal growth, first trimester, not applicable or unspecified (principal); Z3A.32 32 weeks gestation of pregnancy
CPT/HCPCS: 76818

== ENCOUNTER 2025-02-23 10:08 | Outpatient (OUT) | payer OTHER, SELFPAY ==
--- OUTSIDE RECORDS SUMMARY | 2025-02-13 09:00 | XMS_ITS | Encounter Summary ---
Author Organization [facility] Address [address] [place] [address] Care Team Providers Care Dining Room Server Name Role Phone Unavailable Primary Care Provider Unavailabl e Reason for Visit * ReasonCommentsRoutine Visit Encounter Details DateTypeDepartmentCare Team (Latest Contact Info)Blvtavuzbkp04/18/2025 9:00 AM ESTRoutine [facility] [address] [place] [address] Karla Matthews PA [address] [place], [facility] Third trimester ([facility]); 31 weeks gestation of ([facility]); Hypothyroidism, unspecified type Social History Tobacco UseTypesPacks/DayYears UsedDateSmoking Tobacco: NeverSmokeless Tobacco: NeverAlcohol UseStandard Drinks/WeekCommentsYes2 (1 standard drink = 0.6 oz pure alcohol)Alcohol: 1 or 2 drinks, 2 to 4 times a month; Caffeine: 1 can /weekPHQ-2 AnswerDate RecordedPatient Health Questionnaire-2 Zruqf376 Estimated Date of UzvfkgdiDxtuneicDcc93/13/2026ased on UltrasoundSex and Gender InformationValueDate RecordedSex Assigned at OlmdxLefbbw05/30/2023 8:23 AM EDT Legal XvoGizuyp19/15/2023 7:11 PM EDTGender XvccmqofPzgnam24/30/2023 8:23 AM EDT Sexual MsiusleskblMtxntlpt78/30/2023 8:23 AM EDTdocumented as of this encounter Last Filed Vital Signs Vital SignReadingTime TakenCommentsBlood Qluodbzq062/8402/13/2025 9:12 AM EST Pulse--Temperature--Respiratory Rate--Oxygen Saturation--Inhaled Oxygen Concentration--Lwqusf591 kg (244 lb)02/13/2025 9:12 AM ESTHeight--Body Mass Index43.22104/10/2024 10:32 AM ESTdocumented in this encounter Progress Notes * ANNA Kamara - 02/13/2025 9:00 AM EST Reason for Appointment: Patient ID: [...] FOR 10 DAYS Blood Glucose Monitoring Suppl ([employer] Glucometer) w/Device kit 1 kit, Does not [...] Unable to comply with treatment 07/26/2022 ([facility]) 11/28/2017 Exposure to STD 05/31/2023 Encounter for weight management 05/31/2023 Dermatitis, atopic 08/04/2005 Allergic rhinitis 02/18/2000 Asthma ([facility]) 02/18/2000 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 She is normal weight. HENT: Head: Normocephalic. Cardiovascular: Rate and Rhythm: Normal rate. Pulses: Normal pulses. Pulmonary: Effort: Pulmonary effort is normal. Breath sounds: Normal breath sounds. Abdominal: Palpations: Abdomen is soft. Musculoskeletal: General: Normal range of motion. Neurological: General: No focal deficit present. Mental Status: She is alert and oriented to person, place, and time. Psychiatric: Mood and Affect: Mood normal. Behavior: Behavior normal. Thought Content: Thought content normal. Judgment: Judgment normal. Vitals and nursing note reviewed. Vitals: Estimated body mass index is 42.62 kg/m?? as calculated from the following: Height as of 02/07/25: 5' 3 . Weight as of 02/07/25: 240 lb 9.6 oz. BP: Patient's last menstrual period was 06/26/2024. ASSESSMENT & PLAN ICD-10-CM 1. Third trimester ([facility]) Z34.93 2. 31 weeks gestation of ([facility]) Z3A.31 POCT urinalysis dipstick manually resulted Assessment/Plan Return OB: Patient presents today for a routine obstetrics appointment. Patient is currently 31w6d . Patient states she is doing well but has complaints of being tired due to current . Patient has verbalizes frequent movement. labor precautions was discussed/given and patient was instructed to perform kick counts three times a day. Orders Placed This Encounter Procedures POCT urinalysis dipstick manually resulted Follow Up: Patient is to return to office in 2 week for routine OB appointment. Documented by Anuja Vinson CST on behalf of: ANNA Kamara documented in this encounter Plan of Treatment DateTypeDepartmentCare Team (Latest Contact Info)Fcessesljgg99/31/2025 10:40 AM ESTRoutine [facility] [address] [place] [address] Tess Lopez, KALIE [address] [place] [address] 07/04/2025 10:10 AM EDTOffice Visit [facility] [address] [place] [address] Allen Carr MD [address], [address] [place] [address] NameTypePriorityAssociated DiagnosesOrder ScheduleUS biophysical profile w non stress testImagingRoutine Hypothyroidism, unspecified type Expected: 02/13/2025 (Approximate), Expires: 08/14/2025documented as of this encounter Procedures Procedure NamePriorityDate/TimeAssociated DiagnosisCommentsPOCT URINALYSIS CIHPKIGZHswrcxz05/18/2025 9:22 AM EST 31 weeks gestation of ([facility]) documented in this encounter Results * POCT urinalysis dipstick manually resulted (02/13/2025 9:22 AM EST)Component ValueRef RangeTest MethodAnalysis TimePerformed AtPathologist SignatureColor, UAYellowClarity, UAClearGlucose, UANegativeNegative - 2000(110) ++++ mg/dL Bilirubin, UANegativeNegative - 4(70) +++ mg/dLKetones, UANegativeNegative - 160(16) ++++ mg/dLSpec Grav, UA1.0151 - 1.03Blood, UANegativeNegative - 50 John/mcLpH, UA7.55 - 9Protein, UANegativeNegative - 2000(20) ++++ mg/dL Urobilinogen, UA1.00.2 - 12 mg/dLLeukocytes, UANegativeNegative - 500+++ Anderson/mcLNitrite, UANegativeNegative - PositiveSpecimen (Source)Anatomical Location / LateralityCollection Method / VolumeCollection TimeReceived Time Urine02/13/2025 9:22 AM EST Narrative Authorizing ProviderResult TypeResult StatusGood Samaritan [facility] TEST ENTER/EDIT ORDERABLESFinal Result documented in this encounter Visit Diagnoses Diagnosis Third trimester ([facility]) state, incidental 31 weeks gestation of ([facility]) Hypothyroidism, unspecified type documented in this encounter
--- OUTSIDE RECORDS SUMMARY | 2025-02-17 09:00 | XMS_ITS | Encounter Summary ---
Author Organization [facility] Address [address] [facility] [place] [address] Care Team Providers Care Sleeve Setter Safety Stitch Name Role Phone Unavailable Primary Care Provider Unavailabl e Encounter Details DateTypeDepartmentCare Team (Latest Contact Info)Kuhrsmkzpda21/22/2025 9:00 AM ESTAncillary Procedure [facility] [address] [place] [address] History of hyperthyroidism; Macrosomia of fetus affecting management of mother in first trimester, single or unspecified fetus ([facility]) Social History Tobacco UseTypesPacks/DayYears UsedDateSmoking Tobacco: NeverSmokeless Tobacco: NeverAlcohol UseStandard Drinks/WeekCommentsYes2 (1 standard drink = 0.6 oz pure alcohol)Alcohol: 1 or 2 drinks, 2 to 4 times a month; Caffeine: 1 can /weekPHQ-2 AnswerDate RecordedPatient Health Questionnaire-2 Lfiqg745 Estimated Date of PwqdatfbNavftdqyXjs24/13/2026ased on UltrasoundSex and Gender InformationValueDate RecordedSex Assigned at TavyqBpgpgy69/30/2023 8:23 AM EDT Legal UtbLpdeln31/15/2023 7:11 PM EDTGender VfuqtmgjTmayow47/30/2023 8:23 AM EDT Sexual DzbfezmuxbcTbzjzhcz40/30/2023 8:23 AM EDTdocumented as of this encounter Plan of Treatment DateTypeDepartmentCare Team (Latest Contact Info)Cnhokugkxde12/31/2025 10:40 AM ESTRoutine [facility] [place] [facility] [address] [place] [address] Tess Lopez, KALIE [address] [place] [address] [place] [address] 07/04/2025 10:10 AM EDTOffice Visit [facility] [place] [facility] [address] [place] [id number] Allen Carr MD [address] [place] [address] documented as of this encounter Procedures Procedure NamePriorityDate/TimeAssociated DiagnosisCommentsUS OB FOLLOW UP TRANSABDOMINAL RFMVLECHTtkpxhy88/22/2025 9:29 AM EST History of hyperthyroidism Macrosomia of fetus affecting management of mother in first trimester, single or unspecified fetus ([facility]) documented in this encounter Results * US OB follow up transabdominal approach (02/17/2025 9:29 AM EST)Anatomical RegionLateralityModalityBodyUltrasoundSpecimen (Source)Anatomical Location / LateralityCollection Method / VolumeCollection TimeReceived Time02/17/2025 11:59 AM EST Impressions 02/17/2025 12:18 PM EST Single, live intrauterine , current sonographic age of 33 weeks and 6 days, with an estimated date of delivery of April 01, 2025 (prior GARRETT April 11, 2025). * ??Estimated Weight (g) by Percentile is based upon an accurate estimated age based onlast menstrual period. ?? TRANSCRIBED BY: ? ELECTRONICALLY SIGNED BY: Shlomo Luciano MD Narrative 02/17/2025 12:18 PM EST FINDINGS: Comparison September 05, 2024. A single, live intrauterine is present with normal cardiac rate of 150 beats per minute. Normal activity and amniotic fluid volume. Morphology is grossly normal. The current sonographic age is 33 weeks and 6 days, based on the following measurements: ?BPD ? 8.2 cm (33 weeks, 1 day) ?Head Circumference ?30.8 cm (34 weeks, 2 days) ?Abdominal Circumference ?30.3 cm (34 weeks, 2 days) ?Femur Length ?6.5 cm (33 weeks, 3 days) ?Presentation ? Cephalic ? Weight (g) by Percentile ??84.7 % * These measurements result in an estimated date of delivery of April 01, 2025. ??The current estimated weight is 2308 grams (5 pounds, 1 ounce). ?? Procedure Note Shlomo Luciano MD - 02/17/2025 FINDINGS: Comparison September 05, 2024. A single, live intrauterine is present with normal cardiacrate of 150 beats per minute. Normal activity and amniotic fluidvolume. Morphology is grossly normal. The current sonographic age is 33weeks and 6 days, based on the following measurements: BPD 8.2 cm (33 weeks, 1 day) Head Circumference 30.8 cm (34 weeks, 2 days) Abdominal Circumference 30.3 cm (34 weeks, 2 days) Femur Length 6.5 cm (33 weeks, 3 days) Presentation Cephalic Weight (g) by Percentile 84.7 % * These measurements result in an estimated date of delivery of March. The current estimated weight is 2308 grams (5 pounds, 1ounce). IMPRESSION: Single, live intrauterine , current sonographic age of 33 weeksand 6 days, with an estimated date of delivery of April 01, 2025 (priorEDD April 11, 2025). * Estimated Weight (g) by Percentile is based upon an accurateestimated age based on last menstrual period. TRANSCRIBED BY: ELECTRONICALLY SIGNED BY: Shlomo Luciano MD Authorizing ProviderResult TypeResult StatusCorey Samuel DOIMG US PROCEDURES Final Result documented in this encounter Visit Diagnoses Diagnosis History of hyperthyroidism Macrosomia of fetus affecting management of mother in first trimester, single or unspecified fetus ([facility]) documented in this encounter
--- OUTSIDE RECORDS SUMMARY | 2025-02-23 10:10 | XMS_ITS | CCD ---
Author Organization [facility] Inform ion Partnership [employer] [facility] Care Team Providers Care Nutrition Instructor Name Role Phone Scar Bellamy Primary Care Provider SAMUEL ., DR HAYNES Consulting Unavailable SAMUEL ., DR HAYNES Attending Unavailable SAMUEL ., DR HAYNES Admitting Unavailable ZIEBER, DR CHRISTIANNE Amador Consulting Unavailable REQUEST, DR ESCAMILLA LISTED Consulting Unavaila ble SAMUEL ., DR HAYNES Consulting Unavailable SAMUEL ., DR HAYENS Attending Unavailable SAMUEL ., DR HAYNES Admitting [...] of OnsetReaction(s) FacilitySulfonamides (antibiotic) (1 source)Sulfonamides (Antibiotic)Drug Befgplu22-76-9595NumiKrstjzpvr Clinic (6 sources)Erythromycin / sulfiSOXAZOLEDrug Ypalvpr83-34-6206fwjlOetOhio Valley Surgical Hospital Repository (1 source)Sulfonamides (Antibiotic)Drug allergy (disorder)87-77-7587CkhVeterans Health Administration Repository (20 sources)Substance with sulfonamide structure and antibacterial mechanism of action (substance)Drug duuztck85-51-4218hkxf, OtherBayamon [facility] Other (6 sources)sulfiSOXAZOLE; Translations: [sulfisoxazole]Drug Kykvkmg65-04-9693 [facility] (8 sources)Sulfonamides (Antibiotic); Translations: [Sulfa (Sulfonamide Antibiotics)]Allergy to -56-6619mnmuSqmbgdqeuPremier Health (6 sources)erythromycin base; Translations: [erythromycin base]Allergy to fwomqfccx18-45-6480sizoBcxbamnwaWood County Hospital (20 sources)Sulfamethoxazole; Translations: [SULFAMETHOXAZOLE]Propensity to adverse -08-0384JgxhXBEV Healthcare (20 sources)OtherAllergy to jkgzwkytz03-69-7453Krvc, [facility] Xyo Work Phone: (5 sources)Erythromycin / sulfiSOXAZOLE; Translations: [ERYTHROMYCIN-SULFISOXAZOLE]Drug Hdvsylk67-11-2732MxrxLkmYvmwqh Repository (3 sources)SulfamethoxazoleDrug Sojebvf01-93-9964WgyvUxiMbnhbk Health System Medications Current Medications MedicationDrug Class(es)DatesSig (Normalized)Sig (Original)Albuterol (2 sources)beta2-Adrenergic AgonistStart: 89-90-2651Sbqnycvkw Sulfate Active 2 INH INHALATION EVERY 4-6 HOURS 6.7 14 November 20, 2023 12:00amamoxicillin 875 mg / clavulanate 125 mg oral tablet (1 source)Penicillin-class AntibacterialStart: 50-51-8693vtgl 1 tablet by mouth every twelve hoursAmoxicillin-Pot [...] rectal suppository (12 sources)Stimulant LaxativeStart: 10-08-2024 End: 06-98-4757uvcehiccs (Dulcolax) 10 MG suppository Indications: Constipation, unspecified constipation type UNWRAP AND INSERT 1 SUPPOSITORY RECTALLY DAILY FOR 10 DAYS 10 suppository 10/11/2024 TbhfioPqejmuglxvwpjsi-Koimhzijc-Ue (Bromfed Dm) 2-30-10 mg/5 mL syrup (2 sources)Start: 03-44-1378ujqm 1 mL by mouth every four to six hours Cahkevzpyoowqfx-Trbnprqgj-Lf (Bromfed Dm) 2-30-10 mg/5 mL syrup Active 10 ML PO EVERY 4-6 HOURS Sept2023 12:00amciprofloxacin 0.003 mg/mg ophthalmic ointment (2 sources)Quinolone AntimicrobialStart: 64-25-1445Zrooann 0.3 % 1 application into the lower eyelid of affected eye left eye Twice a day for 7 days Jan, Activedocusate sodium 100 mg oral capsule (5 sources)Start: 10-08-2024 End: 77-51-2516cjsg 1 capsule by mouth twice daily as needed for constipation docusate sodium (Colace) 100 MG capsule Indications: Constipation, unspecified constipation type Take 1 capsule (100 mg) by mouth 2 (two) times a day as needed for constipation 30 capsule 5 10/08/2024 11/07/2024 Activefluticasone propionate 0.05 mg/actuat metered dose nasal spray (20 sources)CorticosteroidStart: 44-59-2096yuvz 2 spray(s) nasal route once dailyFluticasone Propionate [...] mg oral tablet (20 sources)l-ThyroxineStart: 10-08-2024 End: 19-73-1849wpvs 1 tablet by mouth before mealtimelevothyroxine (Synthroid) 25 MCG tablet Indications: History of hyperthyroidism Take 1 tablet (25 mcg) by mouth in the morning. Take before meals. 30 tablet 11 11/08/2024 11/08/2025 ActiveStart: 12-28-2022 End: 46-29-5924ehek 1 tablet by mouth once dailySynthroid 300 MCG tablet Indications: Alfredo's disease , Thyroid disease during , first trimester (HCC) Take 1 tablet (300 mcg) by mouth Daily 90 tablet 1 11/11/2024 05/10/2025 ActiveStart: 80-32-5777igvf 2 tablets by mouth once dailySYNTHROID 125 [...] ActivemethylPREDNISolone 4 mg oral tablet (2 sources)CorticosteroidStart: 28-56-1371uhax 1 tablet by mouth once Methylprednisolone (Medrol (Maximus)) 4 mg tablets,dose pack Active 0 PO per package directions November 20, 2023 12:00am PO PER PKG DIRpolyethylene glycol 3350 35972 mg powder for oral solution (1 source)Osmotic LaxativeStart: 09-02-2024 End: 44-96-5394xkhtinlvwrpe glycol (GLYCOLAX) 17 gram packet Take 17 [...] 28-0.8 MG tablet (17 sources)Start: 08-26-2024 End: 87-35-4492jpqo 1 tablet by mouth once dailyPrenatal Vit-Fe Fumarate-FA ( Vitamins) 28-0.8 MG tablet Indications: Positive urine test ([facility]) Take 1 tablet by mouth Daily 30 tablet 3 08/26/2024 08/26/2025 Active promethazine hydrochloride 12.5 mg oral tablet (5 sources)PhenothiazineStart: 10-08-2024 End: 14-76-2005demx 1 tablet by mouth every four hourspromethazine (Phenergan) 12.5 MG tablet Indications: Nausea and vomiting in ([facility]) Take 1 tablet (12.5 mg) by mouth every 4 (four) hours 60 tablet 1 10/08/2024 11/07/2024 Active Completed/Discontinued Medications MedicationDrug Class(es)DatesSig (Normalized)Sig (Original)dextromethorphan hydrobromide 15 mg / guaiFENesin 400 mg / pseudoephedrine hydrochloride 60 mg oraltablet (5 sources)alpha-Adrenergic Agonist, Uncompetitive D-ypabcq-Q-aspartate Receptor Antagonist, Sigma-1 AgonistStart: 04-18-2023 End: 78-33-1262auxp 4 tablets by mouth every twenty-four hours Yrqgivivoaqvwgy-Hy-Lygicxehoej (Capmist Dm) 60-15-400 mg tablet Discontinued 1 TAB PO EVERY 4-6 HOURS April 18, 2023 1:00am October 10, 2023 5:46pm do not exceed 4 doses per 24 hrslevonorgestrel 0.090568 mg/hr intrauterine system (19 sources)Progestin, Progestin-containing Intrauterine DeviceStart: 12-26-2022 End: 10-14-4987Zldsdgjrxufupt intrauterine device 52 mgnitrofurantoin, macrocrystals 25 mg / nitrofurantoin, monohydrate 75 mg oral capsule (6 sources)Nitrofuran AntibacterialStart: 09-23-2024 End: 80-51-9378wpxi 1 capsule by mouth in the morningnitrofurantoin, macrocrystal-monohydrate, (Macrobid) 100 MG capsule Indications: UTI symptoms Take 1 capsule (100 mg) by mouth in the morning and 1 capsule (100 mg) before bedtime. Do all this for 7 days. 14 capsule 09/23/2024 10/08/2024 Discontinued Start: 10-10-2023 End: 69-99-8743jgho 1 capsule by mouth every twelve hours at mealtime Nitrofurantoin Monohyd/M-Cryst (Macrobid) 100 mg capsule Discontinued 100 MG PO Every 12 hours 2023 12:00am November 20, 2023 1:06pm must administer with a meal/foodondansetron 4 mg disintegrating oral tablet (10 sources)Serotonin-3 Receptor AntagonistStart: 08-26-2024 End: 13-60-5298fffc 1 tablet by mouth every six hours as needed for nausea and vomiting and nausea and nauseaondansetron ODT (Zofran-ODT) 4 MG disintegrating tablet Indications: Nausea Take 1 tablet (4 mg) bymouth every 6 (six) hours if needed for nausea or vomiting 30 tablet 2 08/26/2024 10/08/2024 ExpiredStart: 87-20-2908qrxx 1 tablet by mouth every eight hours [...] mg oral tablet (4 sources)Start: 10-10-2023 End: 68-52-7306xtkx 1 tablet by mouth three times dailyPhenazopyridine (Pyridium) 200 mg tablet Discontinued 200 MG PO Three times daily 9 October 10, 2023 12:00am November 20, 2023 1:06pmphentermine hydrochloride 37.5 mg oral tablet (8 sources)Sympathomimetic Amine AnorecticStart: 05-03-2023 End: 78-74-9910cgzx 1 tablet by mouth before mealtimephentermine (Adipex-P) 37.5 MG tablet Indications: Encounter for weight management Take 1 tablet (37.5 mg) by mouth in the morning. Take before meals. 90 tablet 08/07/2023 03/26/2024 Discontinued (Other)Pneumatic Walking Boot (3 sources)Start: 44-83-1024Cwesfipsz Walking Boot Nov, Not-TakingStart: 51-38-2110Oritkugvz Walking Boot Nov, Active Problems Active Problems Problem ClassificationProblemDateDocumented DateEpisodic/ChronicAllergic reactions (20 sources)Atopic dermatitis; Translations: [Atopic dermatitis, unspecified] Onset: 213015-96-9987DxlvtodIcnvyn (20 sources)Asthma; Translations: [Unspecified asthma, uncomplicated]Onset: 168424-78-1065NvdybwmWetdybc obstructive pulmonary disease and bronchiectasis (2 sources)Bronchitis; Translations: [Bronchitis, not specified as acute or chronic]62-39-1114SvljievbRezjgcffbhckj symptoms and ill-defined conditions (1 source)Dysuria; Translations: [Dysuria]Onset: 99-86-8347WqoydqdzNqybukiv; including migraine (20 sources)Cluster headache; Translations: [Cluster headache syndrome, unspecified, not intractable]Onset: 452840-86-0509TxnfzddOyuucqwrionz; infection of eye (except that caused by tuberculosis or sexually transmitteddisease) (1 source)Hordeolum externum left upper eyelidEpisodicJoint disorders and dislocations; trauma-related (20 sources)Chondromalacia of patella; Translations: [Chondromalacia patellae, unspecified knee]Onset: 414605-20-8727JratxkfAgyuarido disorders (20 sources)Missed period; Translations: [Irregular menstruation, unspecified] Onset: 940594-92-3915UtoxypkCdmnvloerao deficiencies (4 sources)Vitamin D deficiency; Translations: [Vitamin D deficiency, unspecified]22-03-3440WtpgezcXbjqn aftercare (1 source)Encounter for other specified aftercare; Translations: [Encounter for other specified aftercare]Onset: 98-62-1777QjobzerhEkxzy complications of (20 sources)Maternal obesity complicating , childbirth and the puerperium, antepartum; Translations: [Obesity complicating , unspecified trimester]Onset: 534188-85-1816EzapgwbQfeey complications of (4 sources)Thyroid disease in ; Translations: [Endocrine, nutritional and metabolic diseases complicating , first trimester]08-09-2024 EpisodicOther complications of (2 sources)Vomiting of , unspecified; Translations: [Unspecified vomiting of , unspecified as to episode of care or not applicable] 03-35-0451OajvnztgZghgj complications of (2 sources)Hypothyroidism in ; Translations: [Endocrine, nutritional and metabolic diseases complicating , second trimester]12-13-2024 EpisodicOther female genital disorders (2 sources)Vaginal discharge; Translations: [Other specified noninflammatory disorders of vagina]24-49-8100NpwjwjzsNgtzv gastrointestinal disorders (3 sources)Constipation; Translations: [Constipation, unspecified]Onset: 407873-38-3406QstqaocoBqjfy gastrointestinal disorders (1 source)Constipation, unspecified; Translations: [Constipation, unspecified] Onset: 62-53-5400RgeuuztmXjtne injuries and conditions due to external causes (1 source)Injury, unspecified, initial encounterEpisodicOther lower respiratory disease (2 sources)Cough; Translations: [Cough]84-26-0585BbjicywpYhdlg nutritional; endocrine; and metabolic disorders (1 source)Obesity; Translations: [Obesity, unspecified]Onset: 11-16-2017 45-72-8835CvyfinjOnnvj nutritional; endocrine; and metabolic disorders (20 sources)Body mass index 30+ - obesity; Translations: [Obesity, unspecified] Onset: 825368-80-6238SzzyfjbFjnqb nutritional; endocrine; and metabolic disorders (2 sources)Severe obesity; Translations: [Class 3 severe obesity due to excess calories without serious comorbidity with body mass index (BMI) of 40.0 to 44.9 in adult ([facility])]55-81-3631PpdzmcgItzns nutritional; endocrine; and metabolic disorders (4 sources)H/O: hyperthyroidism; Translations: [Personal history of other endocrine, nutritional and metabolicdisease]98-62-5127UnzykenzYayly and delivery including normal (20 sources)Encounter for supervision of normal , unspecified, second trimester; Translations: [Encounter for supervision of normal , unspecified, unspecified trimester]Onset: 11-28-2017 Resolved: 36-81-4876HseovssaKhkwh screening for suspected conditions (not mental disorders or infectious disease) (8 sources)Encounter for screening for malignant neoplasm of cervix; Translations: [Patient encounter status]Onset: 31-76-8078PhlorpujCrozc upper respiratory disease (20 sources)Allergic rhinitis; Translations: [Allergic rhinitis, unspecified] Onset: 305554-67-8843WmvfjrgMkqkrhoz codes; unclassified (1 source)20 weeks gestation of ; Translations: [20 WEEKS GESTATION OF ]Onset: 58-42-5384YlcfkpltQxnyinib codes; unclassified (2 sources)Gestation period, 13 weeks; Translations: [13 weeks gestation of ]58-46-6033CmdzdssiHbxwwmrw codes; unclassified (1 source)9 weeks gestation of ; Translations: [9 weeks gestation of ]Onset: 70-98-4626PhzpyihpGsjflnwn codes; unclassified (2 sources)Gestation period, 17 weeks; Translations: [17 weeks gestation of ]03-95-2669JsuvxhieAbyrtkcu codes; unclassified (1 source)Gestation period, 22 weeks; Translations: [22 weeks gestation of ]05-70-9976DsblasioBpwgbyj and strains (1 source)Sprain of unspecified ligament of left ankle, initial encounter EpisodicThyroid disorders (20 sources)Congenital hypothyroidism without goiter; Translations: [Congenital hypothyroidism without goiter]Onset: 157261-59-6994DhylygtFdkiazkczfna (1 source)Cough, unspecified; Translations: [Cough, unspecified]Onset: 97-78-7087Fvriooehqqam (1 source)Injury, unspecified, initial encounter; Translations: [Injury, unspecified, initial encounter]Onset: 91-85-6871Nkxcoharzmbb (20 sources)Unable to comply with treatment; Translations: [Unable to comply with treatment]Onset: 163746-24-3729Fjqhkjaqenbx (1 source)Wound CheckOnset: 63-57-2042Acquyarkajez (1 source)Constipated - 9 Weeks Onset: 22-06-5004Dbzrvlq tract infections (6 sources)Acute urinary tract infection; Translations: [Urinary tract infection, site not specified]25-14-1215GjuxeicgEtzch infection (5 sources)Viral infection, unspecified; Translations: [Disease caused by 2019-nCoV]Episodic Past or Other Problems Problem ClassificationProblemDateDocumented DateEpisodic/ChronicAcute bronchitis (20 sources)Acute bronchitis; Translations: [Acute bronchitis, unspecified] Onset: 861609-88-2396ZetnbspbRnhszomzcadcy and procreative management (20 sources)Patient encounter status; Translations: [Encounter for removal of intrauterine contraceptive device]Onset: 264027-39-9172VjdwvwypWjphdxnccw and other anemia (20 sources)Anemia; Translations: [Anemia, unspecified]Onset: 07-26-2022 75-48-1572BrylvmxmZmtopdlafcgy complicating ; childbirth and the puerperium (20 sources)-induced hypertension; Translations: [Gestational [-induced] hypertension withoutsignificant proteinuria, unspecified trimester]Onset: 04-29-2018 Resolved: 807462-37-9711ZjrqgjsdEonekglctcpis and screening for infectious disease (20 sources)Contact with and (suspected) exposure to other viral communicable diseases; Translations: [Contact with or exposure to other viral diseases]Onset: 50-38-9170KxrqcmpuBquaa complications of (20 sources)Anemia of ; Translations: [Anemia complicating , unspecified trimester]Onset: 04-24-2018 Resolved: 484460-87-4916LxpesumZoltj upper respiratory infections (20 sources)Acute sinusitis, unspecified; Translations: [Acute pharyngitis] Onset: 06-44-0624Vovrsuym Results Test NameValueInterpretationReference RangeFacilityColposcopyon 79-41-7921Cqpnl SaludperryNARCISO 12/12/2024 10:24 AM Colposcopy Date/Time: 12/12/2024 [...] noNOMS HealthcareNOMS HealthcareUrinalysis macro (dipstick) panel (U)on 19-52-0406Ncosatyli, UANegativeNegative - 4(70) +++ mg/dL NOMS HealthcareBlood, [...] - 1.03NOMS HealthcareUrobilinogen, UA2.00.2 - 12 mg/dLNOMS HealthcareNONM HealthcareIGP,APTIMA HPV,AGE GDLNon 22-74-2598DMB GDLN ACOG TESTINGNote.NOMS HealthcareComment on above:TESTS RESULT FLAG UNITS REF RANGE LAB Clinician Provided Cytology Information Source.............Endocervix Other.............. No. of containers..01 ThinPrep Vial Age Algo ACOG Berenice... 30-65 FLAG LEGEND: L-Low Normal,H-High Normal,LL-Alert Low,HH-Alert High <-Panic Low,>-Panic High,A-Abnormal,AA-Critical Abnormal Performed at: 01 =G [address] [address] Yi Martin MD, HPV APTIMAPositiveAbnormalNegativeKANE COUNTY HUM[facility] RESOURCE SSD HealthcareComment on above:This nucleic acid amplification test detects fourteen high- risk HPV types (16,18,31,33,35,39,45,51,52,56,58,59,66,68) without differentiation. Performed at: =G [facility] [id number] Fly Finisher: Yi Martin MD, Phone: [phone] Performed at: [facility] [address] [facility] ([place], [place], [place] [id number] Fly Finisher: Yi Martin MD, Phone: [phone] IGP, APTIMA HPV, RFX 16/18,45NoteAbnormal.NOMS HealthcareComment on above:TESTS RESULT FLAG UNITS REF RANGE LAB DIAGNOSIS: [A] 02 EPITHELIAL CELL ABNORMALITY. ATYPICAL SQUAMOUS CELLS OF UNDETERMINED SIGNIFICANCE (ASC-US). Recommendation: [A] 02 Suggest follow up as clinically appropriate. Specimen adequacy: 02 Satisfactory for evaluation. No endocervical component is identified. Performed by: Abdulkadir Bunn, Follow Up Manager (ASC) Electronically si... 02 Poppy Joyner [...] Low,>-Panic High,A-Abnormal,AA-Critical Abnormal Performed at: [address] [facility] [address] [place] [address] Yi Martin MD, Interpretation and review of laboratory resultsAbnormalNONM Healthcare SPATULA-ALONE ENDOCERVIX CLINISYNCNOMS HealthcareRECURRENT VAGINITIS (HTRX)on 30-22-7209CJTGITIBG VAGINAE 0NOMS HealthcareATOPOBIUM VAGINAENot detectedNOMS HealthcareBVAB 2,3 (BACTERIAL VAGINOSIS ASSOCIATED BACTERIA 2, 3); MOBILUNCUS QOL1UUWA HealthcareBVAB 2,3 (BACTERIAL VAGINOSIS ASSOCIATED BACTERIA 2, 3); MOBILUNCUS SPPNot detectedNOMS HealthcareCANDIDA ALBICANS, PARAPSILOSIS, CNYOVHROCU9LUKI HealthcareCANDIDA ALBICANS, PARAPSILOSIS, TROPICALISNot detectedNOMS HealthcareCANDIDA GLABRATA0 NOMS HealthcareCANDIDA GLABRATANot detectedNOMS HealthcareCANDIDA UXYGZF2RKLV HealthcareCANDIDA KRUSEINot detectedNOMS HealthcareCHLAMYDIA ZEMTGSUTGGM6QYVW HealthcareCHLAMYDIA TRACHOMATISNot detectedNOMS HealthcareGARDNERELLA VAGINALIS0 NOMS HealthcareGARDNERELLA VAGINALISNot detectedNOMS HealthcareMEGASPHAERA (TYPES 1, 2)0NOMS HealthcareMEGASPHAERA (TYPES 1, 2)Not detectedNOMS Healthcare MYCOPLASMA NHUKCQAPJH4DCSP HealthcareMYCOPLASMA GENITALIUMNot detectedNOMS HealthcareNEISSERIA WFPHIIZHHVS5MHHZ HealthcareNEISSERIA GONORRHOEAENot detected NOMS HealthcareTRICHOMONAS JRCOURWEO3VXYK HealthcareTRICHOMONAS VAGINALISNot detectedNOMS HealthcareNOMS HealthcareUrinalysis macro (dipstick) panel (U)on 85-51-6221Osnrzayij, UANegativeNegative - 4(70) +++ mg/dLNOMS HealthcareBlood, UANegativeNegative - 50 John/mcLNOMS HealthcareClarity, UAClearNOMS Healthcare Color, UAStrawNOMS HealthcareGlucose, UANegativeNegative - 2000(110) ++++ mg/dL NOMS HealthcareInterpretation and review of laboratory resultsAbnormalNONM HealthcareKetones, UANegativeNegative - 160(16) ++++ mg/dLNOMS Healthcare Leukocytes, UANegativeNegative - 500+++ Anderson/mcLNOMS HealthcareNitrite, UA NegativeNegative - PositiveNOMS HealthcarepH, UA65 - 9NOMS HealthcareProtein, UA PositiveNegative - 2000(20) ++++ mg/dLNOMS HealthcareSpec Grav, UA1.0151 - 1.03 NOMS HealthcareUrobilinogen, UA1.00.2 - 12 mg/dLNOMS HealthcareNOMS Healthcare Urinalysis macro (dipstick) panel (U)on 10-27-9415Dimthlqvz, UANegativeNegative - 4(70) +++ mg/dLNONM HealthcareBlood, UANegativeNegative - 50 John/mcLNONM HealthcareClarity, UAClearNOMS HealthcareColor, UAStrawNONM HealthcareGlucose, UANegativeNegative - 2000(110) ++++ mg/dLNONM HealthcareInterpretation and review of laboratory resultsNormalNONM HealthcareKetones, UANegativeNegative - 160(16) ++++ mg/dLNONM HealthcareLeukocytes, UANegativeNegative - 500+++ Anderson/mcL NOMS HealthcareNitrite, UANegativeNegative - PositiveNOMS HealthcarepH, UA65 - 9 NOMS HealthcareProtein, UANegativeNegative - 2000(20) ++++ mg/dLNOMS Healthcare Spec Grav, UA1.0151 - 1.03NONM HealthcareUrobilinogen, UA1.00.2 - 12 mg/dLNONM HealthcareNONM HealthcareGLUCOSE TOLERANCE 3 HOURon 07-49-8542HCANDCH TOLERANCE 3 HOURmg/dLNONM HealthcareComment on above:GLU FAST 86 (<95) Col: 10/03/24 1024 GLU 1HR 161 (<180) Col: 10/03/24 1122 GLU 2HR 124 (<155) Col: 10/03/24 1224 GLU 3HR 124 (<140) Col: 10/03/24 1325 CLINISYNCNONM HealthcareALL CBC WITH AUTO DIFFon 37-53-6414XKJBUELCW ABSOLUTE AUTO0.1NOMS HealthcareBasophils/100 WBC (Bld)0.5 %0.2 - 2.0 %[facility] Eosinophils/100 WBC (Bld)2 %0.9 - 7.0 %NOMS HealthcareErythrocyte distribution width (RBC) [Ratio]12.7 %11.0 - 15.0 %[facility] CareHematocrit (Bld) [Volume fraction]36.6 %36.0 - 48.0 %[facility] CareHemoglobin (Bld) [Mass/Vol]12.5 g/dL 12.0 - 16.0 g/dLUniversity of [place] Health CareIMMATURE GRANULOCYTES ABS AUTO0.04HighNONortheast Missouri Rural Health NetworkImmature granulocytes/100 WBC (Bld)0.4 %0.0 - 0.5 %[facility] Interpretation and review of laboratory resultsAbnormalUniversity [facility] LYMPHOCYTES ABSOLUTE AUTO2.8NONortheast Missouri Rural Health NetworkLymphocytes/100 WBC (Bld)29.9 %20.5 - 60.0 %[facility] CareMCH (RBC) [Entitic mass]28.7 pg26.7 - 34.0 pgCooper County Memorial HospitalHC (RBC) [Mass/Vol]34.2 g/dL29.9 - 35.2 g/dLUniversity of Missouri Health CareMCV (RBC) [Entitic vol]83.9 fL81.0 - 99.0 fLUniversity of Missouri Health CareMONOCYTES ABSOLUTE AUTO0.5NOMS HealthcareMonocytes/100 WBC (Bld)5.2 %1.7 - 12.0 %[facility] CareNEUTROPHILS ABSOLUTE AUTO5.9NOMS [facility] HospitalNeutrophils/100 WBC (Bld)62 %43.0 - 75.0 %[facility] CarePlatelet mean volume (Bld) [Entitic vol]10.8 fL9.5 - 13.5 fLUniversity of Missouri Health CareTB EO #0.2NOMS [facility]igh HospitalTB [id number] [facility] RBC4.36NOMS [facility] WBC9.5NONortheast Missouri Rural Health NetworkCLINISYNCNMineral Area Regional Medical CenterALL CBC WITH AUTO DIFFon 93-06-5369BBWHZWFHE ABSOLUTE AUTO0.1NOMS HealthcareBasophils/100 WBC (Bld)0.5 %0.2 - 2.0 %[facility] CareEosinophils/100 WBC (Bld)1.2 %0.9 - 7.0 % [facility] CareErythrocyte distribution width (RBC) [Ratio]12.6 %11.0 - 15.0 % [facility] CareHematocrit (Bld) [Volume fraction]36.8 %36.0 - 48.0 %[facility] CareHemoglobin (Bld) [Mass/Vol]12.6 g/dL12.0 - 16.0 g/dLUniversity of [facility] IMMATURE GRANULOCYTES ABS AUTO0.05HighNONortheast Missouri Rural Health NetworkImmature granulocytes/100 WBC (Bld)0.4 %0.0 - 0.5 %[facility] CareInterpretation and review of laboratory resultsAbnormGeisinger St. Luke's HospitalLYMPHOCYTES ABSOLUTE AUTO3.3NONortheast [facility] Lymphocytes/100 WBC (Bld)28.5 %20.5 - 60.0 %[facility] HospitalH (RBC) [Entitic mass]28.8 pg26.7 - 34.0 pgCooper County Memorial HospitalHC (RBC) [Mass/Vol]34.2 g/dL29.9 - 35.2 g/dLCooper County Memorial HospitalV (RBC) [Entitic vol]84 fL81.0 - 99.0 fLUniversity of Missouri Health CareMONOCYTES ABSOLUTE AUTO0.6NONortheast Missouri Rural Health NetworkMonocytes/100 WBC (Bld)5.5 % 1.7 - 12.0 %[facility] CareNEUTROPHILS ABSOLUTE AUTO7.4HighUniversity of Missouri Health Care Neutrophils/100 WBC (Bld)63.9 %43.0 - 75.0 %[facility] CarePlatelet mean volume (Bld) [Entitic vol]10.9 fL9.5 - 13.5 fLUniversity of Missouri Health CareTB EO #0.1NOMS Healthcare TBH [id number] Missouri State Hospital RBC4.38NOMS [facility] WBC11.5HighUniversity of Missouri Health CareCLINISYNCNMineral Area Regional Medical CenterHCG ( test) Ql (U)on 09-05-2024 Interpretation and review of laboratory resultsAbnormGeisinger St. Luke's HospitalPreg Test, UrPositiveNegativePike County Memorial Hospital HealthcareUS OB TRANSVAGINALon 09-05-2024 [...] No LMP recorded.Urinalysis macro (dipstick) panel (U)on 69-59-0818Spiqvpdnp, UA NegativeNegative - 4(70) +++ mg/dLNOMS HealthcareBlood, UANegativeNegative - 50 John/mcLNONM HealthcareClarity, UAClearNOMS HealthcareColor, UAYellowNOMS HealthcareGlucose, UANegativeNegative - 2000(110) ++++ mg/dLNONM Healthcare Interpretation and review of laboratory resultsNormalNONM HealthcareKetones, UA NegativeNegative - 160(16) ++++ mg/dLKANE COUNTY HUMAN RESOURCE SSD HealthcareLeukocytes, UANegative Negative - 500+++ Anderson/mcLNONM HealthcareNitrite, UANegativeNegative - Positive NOMS HealthcarepH, UA65 - 9NOMS HealthcareProtein, UANegativeNegative - 2000(20) ++++ mg/dLNONM HealthcareSpec Grav, UA1.021 - 1.03NOMS HealthcareUrobilinogen, UA1.00.2 - 12 mg/dLNOMS HealthcareNOMS HealthcarePOCT NURSING URINE MACROSCOPIC UAon 89-69-6465BDKXOQTOU NURNegativeNormalNegTriHealth [facility] Comment on above:Performed By: #### NUM #### [facility] ([facility]) [address] [place] [address] VIRBLOOD/HGB NURTraceAbnormalNegTriHealth Bethesda Butler HospitalComment on above:Performed By: #### NUM #### [facility] ([facility]) [address] [place] [address] VIRGLUCOSE NURNegativeNounc health southeasternNegTriHealth Bethesda Butler Hospital Comment on above:Performed By: #### NUM #### [facility] ([address] [place] [address] VIRKETONES NURNegativeNormalNegativeMercy Health St. [facility] Comment on above:Performed By: #### NUM #### [facility] ([address] [place] [address] VIRLEUKOCYTE ESTERASE NURNegativeNormalNegativeMercy Health St. Elizabeth Boardman HospitalComment on above:Performed By: #### NUM #### [facility] ([address] [address] VIRNITRITE NURNegativeNormalNegativeMercy Health St. [facility] Comment on above:Performed By: #### NUM #### [facility] ([address] [address] VIRPH NUR6.2Epqzvb1.0, 6.0, 6.5, 7.0, 7.5, 8.0, 8.5, 5.[address] [facility] Boardman HospitalComment on above:Performed By: #### NUM #### [facility] ([address] [address] VIRPROTEIN NURNegativeNounc health southeasternNegTriHealth Bet[facility]da [facility] Comment on above:Performed By: #### NUM #### [facility] ([address] [place] [address] VIRSPECIFIC GRAVITY ROX>=1.906Irrqavha9.010, 1.015, 1.020, 1.025[facility] Health St. Elizabeth Boardman HospitalComment on above:Performed By: #### NUM #### [facility] ([address] [address] VIRUROBILINOGEN NUR0.2 E.U./dLNoProvidence Hospital Comment on above:Performed By: #### NUM #### [facility] ([address] [address] VIRPOCT , URINE (NUCG)on 31-41-7375Qbxv HCG ( test) Ql (U)PositiveAbnormalNegative, IndeterminateProMedica Pennsylvania Furnace HospitalComment on above:Performed By: #### NUCG #### [facility] ([facility]) [address] [place] [address] VIRTBH PREG QUANT HCGon 43-59-0223PIK ZXJQYYYSZSYU12918gML/mL NOMS HealthcareComment on above:5-50 0.2-1 WEEK 50-500 1-2 WEEKS 100-5,000 2-3 WEEKS 500-10,000 3-4 WEEKS 1,000-50,000 4-5 WEEKS 10,000-100,000 5-6 WEEKS 15,000-200,000 6-8 WEEKS 10,000-100,000 2-3 MONTHS CLINISYNCNONortheast Missouri Rural Health NetworkTB PREG QUANT HCGon 58-22-8073GRJ ZENNRURNSUYQ54705 mIU/mLNOMS HealthcareComment on above:5-50 0.2-1 WEEK 50-500 1-2 WEEKS 100-5,000 2-3 WEEKS 500-10,000 3-4 WEEKS 1,000-50,000 4-5 WEEKS 10,000-100,000 5-6 WEEKS 15,000-200,000 6-8 WEEKS 10,000-100,000 2-3 MONTHS CLINISYNCNONM HealthcareIUD Removalon 45-08-1098Qliwh BoresNARCISO 03/27/2024 12:35 PM IUD Removal Date/Time: 03/26/2024 1:59 PM Performed by: Ha Baker DO Authorized by: Ha Baker DO Consent: Consent obtained: Written Consent given by: Patient Procedure risks and benefits discussed: yes Patient questions answered: yes Patient agrees, verbalizes understanding, and wants to proceed: yes Educational handouts given: yes Instructions and paperwork completed: yes Hope protocol: Patient states understanding of procedure being [...] the office for annual exam unless needed otherwiseCone Health Annie Penn HospitalNo Panel InformationOrdered By: Amanda Victoria on 22-80-0773KBVII Antigen (POC)[facility] HospitalQuick Strep (POC) [facility] HospitalXR chest 2V*on 72-57-1875QC chest 2V*[facility] [place] [address] XRay Report Signed Patient: Brittnee Smith MR#: [id number] 11 : 1995 Acct:[id number] Age/Sex: 28 / F ADM Date: 11/20/23 [facility]: Type[facility] Attending Dr: Amanda Victoria APRN Copies to: [...] Anda Jr., D.OMelisa11/20/2023 2:04 PM Dictation Location: [place] [address] Transcribed By: [facility] 11/20/23 1404 Dictated By: Shlomo De Anda Jr, DO 11/20/23 140 Signed By: 11/20/23 140[facility] Physician GroupLaboratory - Chemistry and Chemistry - challengeon 42-78-6642Bzmtizaej Ql (U)[facility] HospitalGlucose (U) [Mass/Vol][facility] Ketones Ql (U)NegativeCleveland Clinic [facility]ron General Lodi HospitalpH (U)7.0 [pH][facility] Hospitalpecific gravity (U) [Rel density]1.030[facility] HospitalUrobilinogen (U) [Mass/Vol]0.2 mg/dLCleveland Clinic [facility] HospitalLaboratory - Specimen informationon 94-19-9193Yfjmvqkgxo (U)cloudy [facility] HospitalColor (U)yellowCleveland Clinic [facility]odi HospitalLaboratory - Urinalysison 29-00-1304Owzylrfae esterase Test strip Ql (U) smallCleveland Clinic [facility] General Lodi HospitalNitrite Ql (U)PositiveCleveland Clinic [facility] HospitalProtein Ql (U)100[facility] HospitalNo Panel Informationon 70-61-4081Fogvp Occult BloodlargeC[facility] Urine Cultureon 96-96-7751Cxmafbnk identified Cx Nom (U)ORGANISM: Escherichia coli (O:ESCCOL) [place] Count >100,000 Aerobic MEENA Charge (NMIC56) SUSCEPTIBILITY [...] RESISTANT TO ALL B-LACTAM DRUGS. PERFORMED BY: [place] [id number] PATHOLOGIST COMMERCIAL INSTALLER ROXANNE DIETRICH M.D.NormalHca Florida University Hospital Physician GroupComment on above:Performed By: #### CUU #### [facility] [address] [place] [address] USAUrine culture routineOrdered By: Diana Altman on 55-86-7435Bawzxtmv identified Cx Nom (U)Escherichia coliAbnormalCleveland Clinic [facility] Lodi HospitalNo Panel InformationOrdered By: Linda Swanson on 57-05-6521SYMIB/Influenza Antigen (POC)[facility] COVID/FLU/RSV RT-PCRon 18-47-8739STWR-CoV-2 (COVID-19) RNA NICHOLE+probe Ql (Unsp spec)NegativeBayamon [facility] Other COVID/FLU/RSV RT-PCRNegativeBayamon [facility] Other xr ankle LT min 3V*on 66-94-0443IH ankle LT min 3V* [facility] [employer] Other xr ankle LT min 3V*[facility] Main [facility] Other XR ankle LT min 3V*[address] [place] [address] [employer] Other xr ankle LT min 3V*[place] [id number] [facility] Other xr ankle LT min 3V*XRay ReportBayamon [facility] Other xr ankle LT min 3V*SignedBayamon [facility] Other xr ankle LT min 3V*Patient: Brittnee Smith MR#: [id number] [facility] [employer] Other XR ankle LT min 3V*[facility] Other xr ankle LT min 3V*: 1995 Acct:[id number] idemama Other xr ankle LT min 3V*Age/Sex: 27 / F ADM Date: 12/13/22 idemama Other xr ankle LT min 3V*Loc: XDUCLY Room: Type: [facility] idemama Other xr ankle LT min 3V*Attending Dr: Linda Swanson [facility] idemama Other xr ankle LT min 3V*Copies to: Linda Swanson [facility] idemama Other xr ankle LT min 3V*Ordering Provider: Linda Swanson [facility] CORPORATIONSupportBee Other xr ankle LT min 3V*Date of Service: 12/13/22[facility] CareSports [employer] Other xr ankle LT min 3V* XR/XR ankle LT min 3V*: T14.90XABayamon [facility] Other xr ankle LT min 3V*LEFT ANKLE - 3 viewsBayamon [facility] Other xr ankle LT min 3V*CLINICAL DATA: Patient fell down stairs injuring left ankle today. Generalized pain and swelling.idemama Other xr ankle LT min 3V*COMPARISON: [facility] [employer] Other xr ankle LT min 3V*AP, lateral and oblique views were obtained. There is no evidence of fracture or dislocation. [facility] SpringfieldSupportBee Other xr ankle LT min 3V*talar dome is intact. A tiny plantar calcaneal spur is present. There is mild diffuse soft tissueBayamon [facility] Other XR ankle LT min 3V*swelling, greater anteriorly.idemama Other XR ankle LT min 3V* XR/XR ankle LT min 3V*idemama Other XR ankle LT min 3V*IMPRESSION:idemama Other XR ankle LT min 3V*NO ACUTE BONY INJURY.idemama Other XR ankle LT min 3V*Impression dictated by: Brandy Shields M.D.12/13/2022 9:49 AMNpike county memorial hospital [employer] [employer] Other XR ankle LT min 3V*Dictation Location: [place] [address] idemama Other XR ankle LT min 3V*Transcribed By: [facility] 12/13/22 [facility] idemama Other XR ankle LT min 3V*Dictated By: Brandy Shields MD 12/13/[address] [place] [address] [employer] Other XR ankle LT min 3V*Signed By:idemama Other XR ankle LT min 3V*12/13/22 [facility] Centeridemama Other XR ankle LT min 3V*[facility] Main [place] [address] [place] [address] XRay Report Signed Patient: Brittnee Smith MR#: [id number] [birth year] : 1995 Acct:[id number] Age/Sex: 27 / F ADM Date: 12/13/22 Loc: XDUCLY Room: Type: [facility] Attending Dr: Linda Swanson APRN Copies [...] Brandy Shields M.D.12/13/2022 9:49 AM Dictation Location: [place] [address] Transcribed By: [facility] 12/13/2249 Dictated By: Brandy Shields MD 12/13/2247 Signed By: 12/13/2249[facility] Physician GroupAFP MATERNAL FOR SPINA BIFIDAon 08-90-4025KYJ MoM0.73[facility] HospitalComment on above:Result Comment: This is a corrected report. The previously reported result was: AFP MoM See interpretation. 06/29/2022erformed By: #### AFPMAT #### [facility] [address] [place] [address] [address] Cathleen Miner Value35.4 ng/mLNClinton Memorial HospitalComment on above: Performed By: #### AFPMAT #### [facility] [address] [place] [address] [address] Cathleen Miner, Serum for Spina BifidaCoSt. Mary's [facility] Comment on above:Result Comment: The MOM and risk factors of this report have been modified based on new information supplied to us by the client or their designated mill representative. The Weight was changed from Not provided. to 222. This is a corrected report. The previously reported result was: Results Report 06/29/2022erformed By: #### AFPMAT #### [facility] [address] [place] [address] [address] Cathleen HuertaKing's Daughters Medical Center OhioComhuron valley-sinai hospital on above:Result Comment: Sameera Hollingsworth, Ph.D., [facility] Director . References: Available Upon Request. . Multiples Of Median Cutoffs For AFP Elevations Wolfe 2.5 Black 2.8 IDD 2.0 Twins 4.5 Abbreviation Definitions IDD - Insulin Dep Diabetes OSBR - Open Spina Bifida Risk . For further inquiries contact [employer] at [phone]. . This test was developed and its performance characteristics determined by [employer]. It has not been cleared or approved by the Food and Drug Administration.Performed By: #### AFPMAT #### [facility] [address] [place] [address] Dr. Cathleen Dailey Age Collection Date20.4 [facility] Comment on above:Performed By: #### AFPMAT #### [facility] [address] [place] [address] Dr. Cathleen GodwinGestat, Age Based onUltrasKettering Health MiamisburgComment on above:Result Comment: 20.4 on 06/27/2022 Recalculations are not recommended when gestational dating by LMP and ultrasound are within 10 days.Performed By: #### AFPMAT #### [facility] [address] [place] [address] Dr. Cathleen Navarrete Dep DiabetesNoNClinton Memorial HospitalComment on above:Performed By: #### AFPMAT #### [facility] [address] [place] [address] Dr. Cathleen GodwinInterpretationComBucyrus Community HospitalComment on above: Result Comment: Interpretation: Screen [...] Customer Services to discuss available options. The [employer] recommends amniocentesis [...] new clinical information.Performed By: #### AFPMAT #### [facility] [address] [place] [address] Dr. Cathleen Batista Age [facility] EDD[age] [facility]Our [facility] on above:Performed By: #### AFPMAT #### [facility] [address] [place] [address] Dr. Cathleen Bernal GestationPaulding County HospitalComment on above: Performed By: #### AFPMAT #### [facility] [address] [place] [address] Dr. Cathleen AbbottBR Risk 1 [id number] Lady of Mercy Hospital on above: Result Comment: This is a corrected report. The previously reported result was: OSBR Risk 1 IN See interpretation. 06/29/2022erformed By: #### AFPMAT #### [facility] [address] [place] [address] Dr. Cathleen Bhatt.[facility] Memorial HospitalComment on above:Performed By: #### AFPMAT #### [facility] [address] [place] [address] Dr. Cathleen NewbyucasiPremier Health Miami Valley Hospital NorthComment on above: Performed By: #### AFPMAT #### [facility] [address] [place] [address] Dr. Cathleen GodwinTest Results:NegativeNoProtestant Deaconess Hospital on above: Result Comment: This is a corrected report. The previously reported result was: Test Results: See interpretation. 3Performed By: #### AFPMAT #### [facility] [address] [place] [address] Dr. Cathleen Maxwell B SURFACE ANTIGEN SCREENon 11-86-9724MJkVt ScreenNegative NormalNegativeThe [facility] on above:Performed By: #### HBSANS #### [facility] [address] [place] [address] Dr. Cathleen HearnTIS C VIRUS AB W/ REFLEX QUANTon 51-16-9316RFE AB Non-ReactiveNormalNon ReactiveThe [facility] CampusComhuron valley-sinai hospital on above:Performed By: #### HCVPCRR #### [place] [address] Dr[address] Cathleen GodwinInterpretation:CommentNoProtestant Deaconess Hospital on above:Result Comment: Not infected with HCV unless early or acute infection is suspected (which may be delayed in an immunocompromised individual), or other evidence exists to indicate HCV infection.Performed By: #### HCVPCRR #### [facility] [address] [place] [address] Dr. Cathleen Ulrich 1 AND 2 WITH REFLEXon 90-84-3155WFG Screen 4th Generation wRfxNon-ReactiveNormalNon ReactiveThe [facility] on above:Result Comment: HIV Negative HIV-1/HIV-2 antibodies and HIV-1 p24 antigen were NOT detected. There is no laboratory evidence of HIV infection.Performed By: #### HIV12 #### [facility] [address] [place] [address] Dr. Cathleen GodwinRPPerry QUANTon 21-90-0059Ltyax Plasma Reagin, QuantNon-Reactive NormalNonRea<1:1The [facility] on above:Result Comment: Please Note: This test does not meet current guidelines for screening and diagnosis of syphilis. This test is intended for following treatment response in patients being treated for syphilis infection. To screen for syphilis infection, a reflex cascade that includes both RPR and a treponema-specific assay should be utilized, such as Treponema pallidum (Syphilis) Screening Theresa (685400) or Rapid Plasma Reagin (RPR) Test With Reflex to Quantitative RPR and Confirmatory Treponema pallidum Antibodies (891313).Performed By: #### RPRQ #### [facility] [address] [place] [address] [address] Cathleen Ames AB IGGon 38-92-8606Lljlzvc Antibodies, IgG1.39 index NormalImmune >0.99The [facility] CampusComment on above:Result Comment: Non- immune <0.90 Equivocal 0.90 - 0.99 Immune >0.99Performed By: #### RUBIGG ####[facility] [address] [place] [address]Dr. Cathleen Gibson AUTO DIFFon 56-24-6964EUIP # 0.0 103/ulNormal0.0-0.1The [facility] CampusComment on above:Performed By: #### CBC #### [facility] [address] [place] [address] Dr. Cathleen Larsonsophils/100 WBC (Bld)0.3 %Normal0.2-2.0[facility] Comment on above:Performed By: #### CBC #### [facility] [address] [place] [address] Dr. Cathleen Starkey #0.2 103/ulNormal0.0-0.7The [facility] CampusComment on above: Performed By: #### CBC #### [facility] [address] [place] [address] Dr. Cathleen Colemanosinophils/100 WBC (Bld)1.3 %Normal0.9-7.0The [facility] Comment on above:Performed By: #### CBC #### [facility] [address] [place] [address] Dr. Cathleen Colemanrythrocyte distribution width (RBC) [Ratio]13.2 %Bsakpw61.0-15.0 The [facility] CampusComment on above:Performed By: #### CBC #### [facility] [address] [place] [address] [address] Cathleen GodwinHematocrit (Bld) [Volume fraction]32.9 %Critically low36.0-48.0 The [facility] CampusComment on above:Performed By: #### CBC #### [facility] [address] [place] [address] [address] Cathleen GodwinHemoglobin (Bld) [Mass/Vol]11.3 g/dLCritically low12.0-16.0The [facility] CampusComment on above:Performed By: #### CBC #### [facility] [address] [place] [address] [address] Cathleen GodwinIG #0.18 10e3/ulCritically high0.00-0.03The [facility] Comment on above:Performed By: #### CBC #### [facility] [address] [place] [address] Dr. Cathleen Larry %1.6 %Critically high0.0-0.5The [facility] CampusComment on above:Performed By: #### CBC #### [facility] [address] [place] [address] [address] Cathleen Johns #2.6 103/ulNormal1.2-3.8The [facility] CampusComment on above:Performed By: #### CBC #### [facility] [address] [place] [address] [address] Cathleen Tranmphocytes/100 WBC (Bld)22.5 %Ruovvt60.5-60.0The [facility]edo Hospitalment on above:Performed By: #### CBC #### [facility] [address] [place] [address] [address] Cathleen GodwinMANUAL DIFF REQNONormalThe [facility] CampusComment on above: Performed By: #### CBC #### [facility] [address] [place] [address] [address] Cathleen Rao (RBC) [Entitic mass]29.4 qbQxysog93.7-34.0The [facility] CampusComment on above:Performed By: #### CBC #### [facility] [address] [place] [address] [address] Cathleen WilliamHC (RBC) [Mass/Vol]34.3 g/jTLahbgm12.9-35.2The [facility] CampusComment on above:Performed By: #### CBC #### [facility] [address] [place] [address] Dr. Cathleen WilliamV (RBC) [Entitic vol]85.5 xNEeumrg86.0-99.0The [facility] CampusComment on above:Performed By: #### CBC #### [facility] [address] [place] [address] Dr. Cathleen Maria #0.5 103/ulNormal0.3-0.8The [facility] CampusComment on above:Performed By: #### CBC #### [facility] [address] [place] [address] Dr. Cathleen Lubinocytes/100 WBC (Bld)4.5 %Normal1.7-12.0The [facility] Comment on above:Performed By: #### CBC #### [facility] [address] [place] [address] Dr. Cathleen Tenorio #8.1 103/ulCritically high1.4-6.5The [facility] Comment on above:Performed By: #### CBC #### [facility] [address] [place] [address] Dr. Cathleen Garayutrophils/100 WBC (Bld)69.8 %Duqyot68.0-75.0The [facility] CampusComment on above:Performed By: #### CBC #### [facility] [address] [place] [address] Dr. Cathleen Flanaganlet mean volume (Bld) [Entitic vol]10.8 fLNormal9.5-13.5The [facility] CampusComment on above:Performed By: #### CBC #### [facility] [address] [place] [address] Dr. Cathleen GodwinPLT223 103/ncFwjfru897-606Nkm [facility] CampusComment on above: Performed By: #### CBC #### [facility] [address] [place] [address] [address] Cathleen GodwinRBC3.85 106/ulCritically low4.20-5.40The [facility] on above:Performed By: #### CBC #### [facility] [address] [place] [address] [address] Cathleen GodwinWBC11.5 103/ulCritically high4.0-11.0The [facility] on above:Performed By: #### CBC #### [facility] [address] [place] [address] [address] Cathleen GodwinCULTURE URINEon 17-07-8551GENQWBK URINECulture Observations: LIGHT GROWTH OF MIXED GENITAL KASIA. NO POTENTIAL PATHOGENS SEEN.NormalThe [facility] on above:Performed By: #### URCX ####[facility] [address] [place] [address]Dr. Cathleen Godwin GLYCOHEMOGLOBIN A1Con 02-14-3628WJZ RECOMMENDATIONSEE BELOWMemorial Health System Marietta Memorial HospitalComhuron valley-sinai hospital on above:Result Comment: ADA RECOMMENDED LIMIT 4.0 - 6.0 ADA THERAPEUTIC TARGET < 7.0 ACTION SUGGESTED > 7.0Performed By: #### A1C #### [facility] [address] [place] [address] Dr. Cathleen GodwinGlucose [Mass/Vol]114 mg/dLOur Lady of Mercy Hospital on above:Performed By: #### A1C #### [facility] [address] [place] [address] Dr. Cathleen GodwinHbA1c (Bld) [Mass fraction]5.6 %Normal4.5-6.2The [facility] on above:Performed By: #### A1C #### [facility] [address] [place] [address] Dr. Cathleen GodwinTSHon 70-08-6890GYS92.370 uIU/mLCritically high0.358-3.740The [facility] on above:Performed By: #### TSH #### [facility] [address] [address] [address] Cathleen GodwinTYPE AND SCREENon 86-55-0290KJYR AND SCREENNegativeMemorial Health System Marietta Memorial HospitalComment on above:Performed By: #### TNS #### [facility] [address] [place] [address] Dr. Cathleen Hughes PREG ANATOMY SINGLEon 72-13-8809MU PREG ANATOMY SINGLE EXAMINATION: US PREG ANATOMY [...] Electronically authenticated by: CHRISTIANNE ULLOA Date: 2022-06-27 15:[address] [place] [address] Vital Signs Date TimeVital SignValuePerforming XuxpffingUpxkhvyf85-86-3073 08:03-0400Body oyziuu323.6 cmKenji Plascencia MD Work Phone: p[facility] EosHealthJzphdi47-31-8065 08:03-0400Body mass index (BMI) [Ratio]40.39 kg/k1ZzymqsKenji Plascencia MD Work Phone: [phone] [place], [place] 6053810-17-2025 08:03-0400Body mcsxxo114.78 kgKenji Plascencia MD Work Phone: [phone] [place], [place] 6053810-17-2025 08:03-0400Diastolic blood ccjxxotq48 mm[Hg]Kenji Plascencia MD Work Phone: [phone] [place], [place] 6053810-17-2025 08:03-0400Heart rate 83 /minKenji Plascencia MD Work Phone: [phone] [place], [place] 6053810-17-2025 08:03-0400Systolic blood ryncwsjj809 mm[Hg]Kenji Plascencia MD Work Phone: [phone] [place], [place] 6053810-16-2025 09:24-0400Body mass index (BMI) [Ratio]41.81 kg/p5Sihqf Samuel DO Work Phone: [phone] [place], [place] 8092410-16-2025 09:24-0400Body zgwyks581.05 kgCorey Samuel DO Work Phone: [phone] [place], [place] 8092410-16-2025 09:24-0400Diastolic blood giszleia67 mm[Hg]Ha Samuel DO Work Phone: [phone] [place], [place] 8092410-16-2025 09:24-0400Systolic blood ranbdvlz464 mm[Hg]Ha Samuel DO Work Phone: [phone] [place], [place] 8092409-11-2025 11:30-0400Body mass index (BMI) [Ratio]40.64 kg/u8FtysffrsCaryn Lopez NP Work Phone: [phone] [place] [address]-11-2025 11:30-0400Body .06 kgCaryn Lopez SCREENER AND BLENDER Work Phone: [phone] [place] [address]-11-2025 11:30-0400Diastolic blood ihymgvtb36 mm[Hg]Caryn Lopez NP Work Phone: [facility] CareQcheflzedd97-10-9895 11:30-0400Systolic blood zyyctnbq503 mm[Hg]Caryn Lopez KALIE Work Phone: [facility] CareNgttebmxcg18-67-3446 14:04-0400Body mass index (BMI) [Ratio]40.35 kg/o0Tvjhx Samuel DO Work Phone: [facility] CareIcggthhzjz34-71-8280 14:04-0400Body ccvyex264.33 kgCorey Samuel DO Work Phone: [phone] [place], [place] [address]Kqydlfgviz12-48-0398 14:04-0400Diastolic blood agsibfin37 mm[Hg]Ha Samuel DO Work Phone: [facility] CareQgeikbckyj51-62-5646 14:04-0400Systolic blood hykbliwi788 mm[Hg]Hajona Nowako DO Work Phone: [facility] CareXyrldvdeil63-86-6021 10:07-0400Body rghrwi661 cm Allen Carr MD Work Phone: [phone] [place], [place] [address]Swruaikjwa95-36-9081 10:07-0400Body mass index (BMI) [Ratio]39.86 kg/j4CfxlhAllen Carr MD Work Phone: [phone] CareGfdaxgpxop91-66-2913 10:07-0400Body jmxibl489.06 kgAllen Carr MD Work Phone: [facility] CareJqiezzrpbp38-15-5028 10:07-0400Diastolic blood xghabbrc94 mm[Hg]Allen Carr MD Work Phone: [phone] [place], [place] [address]Xpvidqgwgd39-75-1187 10:07-0400Heart rate77 /min Allen Carr MD Work Phone: [facility] CareJozxvthrkm48-07-7230 10:07-0400Respiratory rate16 /minAllen Carr MD Work Phone: [facility] CareXuzbmtawxq48-18-0081 10:07-6197GqX1% (BldA) [Mass fraction]99 %Allen Carr MD Work Phone: [address] [place], [place] [address]Uwldjqjjmk02-61-0617 10:07-0400Systolic blood hcvjwtmo399 mm[Hg]Allen Carr MD Work Phone: 1([phone])406-[address] [place], [place] [address]Onyxueiuer43-06-4210 14:05-0400Body mass index (BMI) [Ratio]39.2 kg/w0SuqjaRockefeller [facility]07-10-2025 14:05-0400Body weight 103.6 kgR[facility]kefeller [facility]06-13-2025 11:20-0400Body .6 Sriram Carr MD Work Phone: [phone]06-13-2025 11:20-0400Body mass index (BMI) [Ratio]40.17 kg/v3IgkdeAllen Carr MD Work Phone: 1(645)006-[address] [place], [place] [address]Bborfyozae14-86-8802 11:20-0400Body .14 kgAllen Carr MD Work Phone: [phone])[address]06-13-2025 11:20-0400Heart rate93 /min Allen Carr MD Work Phone: 1(534)347-[address] [place], [place] [address]Vuoksptehj22-60-4220 11:20-0400Respiratory rate16 /minAllen Carr MD Work Phone: 1(502)499-[address] [place], [place] [address]Rqssnykata24-67-3617 11:20-0308RyV7% (BldA) [Mass fraction]99 %Allen Carr MD Work Phone: [phone])222-[address] [place], [place] [address]Gyiqwpuasr52-91-3323 13:29-0500Body mass index (BMI) [Ratio]40.94 kg/u7Dhtws Samuel DO Work Phone: [facility] CareTyrpswcwpo49-68-2516 13:29-0500Body .83 kgCorey Samuel DO Work Phone: [facility] CareSwfrxmdisk10-63-5895 13:29-0500Diastolic blood dvsmzjap72 mm[Hg]Ha Samuel DO Work Phone: [facility] CareLrbuigidcq15-03-8048 13:29-0500Systolic blood dzgvheze737 mm[Hg]Ha Baker DO Work Phone: [facility] CareUuyrimqhjv76-15-9067 13:08-0400Body bynhlu116.56 cmAPRJarek Altman Work Phone: [phone] [place], [place] 5873409-23-2024 13:08-0400 Body mass index (BMI) [Ratio]38.7 kg/m2JUICE Ortiz Anupama Work Phone: [phone]09-23-2024 13:08-0400 Body gjpxnkjeqmn38.9 [degF]JUICE Ortiz Anupama Work Phone: [phone] [place], [place] 2911309-23-2024 13:08-0400 Body vewime519.51 kgJUICE Altman Work Phone: [phone]09-23-2024 13:08-0400 Diastolic blood ryyxrasy44 mm[Hg]JUICE Ortiz Anupama Work Phone: [phone]09-23-2024 13:08-0400 Heart rate80 /minAPRJarek Ortiz Anupama Work Phone: [phone])[address]09-23-2024 13:08-0400 SaO2% (BldA) [Mass fraction]98 %JUICE Ortiz Anupama Work Phone: [phone]09-23-2024 13:08-0400 Systolic blood xmngyjrh125 mm[Hg]JUICE Ortiz Anupama Work Phone: [phone]08-13-2024 17:54-0400 Body ocaagu921.56 [facility]08-13-2024 17:54-0400Body mass index (BMI) [Ratio]37.6 kg/p8QjenoosytC[facility] Clinic [facility]08-13-2024 17:54-0400Body igzrpmwmavn87.2 [degF][facility]08-13-2024 17:54-0400Body rqecql42.56 kgC[facility]08-13-2024 17:54-0400Diastolic blood hoeqfouj45 mm[Hg][facility] 10-10-2023 17:54-0400Heart rate90 /[facility] 10-10-2023 17:54-0400Respiratory rate18 /[facility] 10-10-2023 17:54-0201IfR9% (BldA) [Mass fraction]96 %[facility]08-13-2024 17:54-0400Systolic blood vnudlnpp449 mm[Hg][facility]02-20-2024 11:10-0500Body tunnbd389.56 cmC[facility]02-20-2024 11:10-0500Body mass index (BMI) [Ratio]38.6 kg/m2 [facility]02-20-2024 11:10-0500Body yocjuekeajg36.2 [degF][facility]02-20-2024 11:10-0500Body .05 kg [facility]02-20-2024 11:10-0500Heart rate95 /[facility]02-20-2024 11:10-0500Respiratory rate16 /[facility]02-20-2024 11:10-0955WwH9% (BldA) [Mass fraction]99 % [facility]02-08-2024 09:05-0500Body eplafd886.02 cmAtemo Swanson Other [employer] Other 02-08-2024 09:05-0500Body mass index (BMI) [Ratio] 38.97 kg/b7FxgwvLinda Swanson Other [employer] Other 02-08-2024 09:05-0500Body .1 [degF]Linda Swanson Other [employer] Other 02-08-2024 09:05-0500Body ujtckc06.79 kgLinda Swanson Other [place] [employer] Other 02-08-2024 09:05-0500Respiratory rate18 /minLisandroer Sky Other [facility] [employer] Other 02-08-2024 09:05-9250CxN6% (BldA) [Mass fraction]99 % Linda Sky Other [place] [employer] Other 12-04-2023 15:40-0500Body lfgrna961.02 cmPamela Mary Other [facility]12-04-2023 15:40-0500 Body mass index (BMI) [Ratio]39.78 kg/w5Oqfagx Mary Other [place] [employer] Other 12-04-2023 15:40-0500Body dkuvpwsgvog91 [degF]Addie Mary Other [place] [employer] Other 12-04-2023 15:40-0500Body ugvqzx011.88 kgPager Hernandez Other [place] [employer] Other 12-04-2023 15:40-0500Body .87 kgC[facility]12-04-2023 15:40-0500Diastolic blood ykgmieml13 mm[Hg] Addie Mary Other [facility]12-04-2023 15:40-0500 Respiratory rate18 /minPager Hernandez Other [place] [employer] Other 12-04-2023 15:40-2249LbG3% (BldA) [Mass fraction]98 % Addie Hernandez Other [place] [employer] Other 12-04-2023 15:40-0500Systolic blood vyjxuynj347 mm[Hg] Addie Hernandez Other [facility]10-17-2023 09:05-0400 Body bvejlf390.02 Markos Swanson Other [employer] Other 10-17-2023 09:05-0400Body mass index (BMI) [Ratio] 38.97 kg/g2UumqhLinda Swanson Other [employer] Other 10-17-2023 09:05-0400Body ttiyaizpwqh92.2 [degF]Linda Swanson Other [employer] Other 10-17-2023 09:05-0400Body jbotzq67.79 kgLinda Swanson Other [employer] Other 10-17-2023 09:05-0400Diastolic blood ynycavag17 mm[Hg] Linda Swanson Other [employer] Other 10-17-2023 09:05-0400Respiratory rate18 /minLinda Swanson Other [employer] Other 10-17-2023 09:05-5310LvY2% (BldA) [Mass fraction]98 % Linda Swanson Other [employer] Other 10-17-2023 09:05-0400Systolic blood hbpuzwyf745 mm[Hg] Linda Swanson Other [employer] Other 06-19-2023 12:00-0400Body azwast156.02 Chiquita Hernandez Other [employer] Other 06-19-2023 12:00-0400Body mass index (BMI) [Ratio] 40.21 kg/f2VuqukeAddie Hernandez Other [employer] Other 06-19-2023 12:00-0400Body nszfvdqahzj95.7 [degF]Addie Hernandez Other [employer] Other 06-19-2023 12:00-0400Body mwvmyv210.97 kgAddie Hernandez Other [employer] Other 06-19-2023 12:00-0400Diastolic blood fkfstoey32 mm[Hg] Addie Hernandez Other [employer] Other 06-19-2023 12:00-0400Respiratory rate18 /minAddie Hernandez Other [employer] Other 06-19-2023 12:00-7701RzG7% (BldA) [Mass fraction]98 % Addie Hernandez Other [employer] Other 06-19-2023 12:00-0400Systolic blood hppbeznu495 mm[Hg] Addie Hernandez Other [employer] Other 05-05-2023 14:08-0400Body huvqtm512.6992 kgDR HA BAKER .[facility] CampusComment on above:Result Comment: This is a corrected report. The previously reported result was: Weight 06/29/2022 Not provided. .Performed By: #### AFPMAT #### [facility] [address] [place] [address] Dr. 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)Start: 12-13-2024 End: 89-41-0786Npgvgq Virgil Mcgrath RNMaternal- Medicine at [facility] InstituteComment on above:Hypothyroidism affecting in second trimester (Primary Dx)Start: 12-12-2024 End: 23-39-0377Kfklipo encounter procedureCorejona Samuel DO Work Phone: noms Timothy OBGYNComment on above:Colposcopy needed after cervical smear; Second trimester ([facility]); 22 weeks gestation of ([facility])Start: 12-12-2024 End: 28-58-0821jktsegjkkiVVRPW FAZIONot AvailableStart: 11-13-2024 End: 80-71-1643Uupix abstractYosvany Plascencia MD Work Phone: [phone]-Bwwxc [facility] Start: 11-13-2024 End: 25-78-5483Yestybdfe encounterCaryn Lopez NP Work Phone: N[facility] Timothy OBGYNStart: 11-07-2024 End: 41-58-1242Lcpprq flowsheetCaryn Lopez SCREENER AND BLENDER Work Phone: [facility] [place] OBGYNStart: 11-07-2024 End: 75-88-0010Ivnwfz flowsheetCaryn Lopez SCREENER AND BLENDER Work Phone: [facility] [place] OBGYNStart: 11-07-2024 End: 49-47-5241Uuxzfnrqt Result EncounterCaryn Lopez NP Work Phone: NOMS External Department UnsolicitedStart: 11-07-2024 End: 72-89-5517Hkvpatpb Result EncounterCaryn Lopez NP Work Phone: no External Department UnsolicitedStart: 11-07-2024 End: 37-09-5569Kneazs outpatient visit 15 minutesCaryn Lopez NP Work Phone: no Timothy OBGYNComment on above:17 weeks gestation of ([facility]); Second trimester ([facility]); History of hyperthyroidism; Well woman exam with routine gynecological exam; Screening, , for anatomic survey ([facility]); Vaginal discharge; Exposure to STDStart: 11-07-2024 End: 61-07-6718Pbkbpnx encounter procedureCaryn Lopez NP Work Phone: no HealthcareStart: 11-07-2024 End: 99-25-0350pdikttayttIFRONIRQ EBERLYNot AvailableStart: 10-23-2024 End: 84-99-1750Iqqxakena department patient visitNO PCP NO PCPProMedica Pennsylvania Furnace HospitalStart: 10-08-2024 End: 99-28-2630Hkeaum flowsheetCorey Samuel DO Work Phone: noms Timothy OBGYNStart: 10-08-2024 End: 75-93-3205Kxemgt flowsheetCorey Samuel DO Work Phone: noms Timothy OBGYNStart: 10-08-2024 End: 71-49-9003Gwrtth outpatient visit 15 minutesCorey Samuel DO Work Phone: no [place] OBGYNComment on above:13 weeks gestation of ([facility]); Second trimester ([facility]); Nausea and vomiting in ([facility]); History of hyperthyroidism; Constipation, unspecified constipation typeStart: 10-08-2024 End: 93-87-0368lvlxedxdefZUBBM FAZIONot AvailableStart: 10-04-2024 End: 97-94-5282Qklyao flowsEstrella Carr MD Work Phone: noMS [place] EndocrinologyStart: 10-04-2024 End: 81-28-9944Nfumir flowsheetAllen Carr MD Work Phone: noms [place] EndocrinologyStart: 10-04-2024 End: 04-02-2901Moogrx outpatient visit 25 minutesAllen Carr MD Work Phone: noms [place] Endocrinology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 (Primary Dx); Vitamin D deficiency; Encounter for dietary consultation; Thyroid disease during , first trimester (HCC); Hypothyroidism, unspecified typeStart: 10-04-2024 End: 97-96-8056pwptsedsngZMPXV F SABBAGHNot AvailableStart: 10-03-2024 End: 94-31-8823Blenleebx Result EncounterCorey Samuel DO Work Phone: noms External Department UnsolicitedStart: 10-03-2024 End: 96-69-4848Cwvkumssm Result EncounterCorey Samuel DO Work Phone: noms External Department UnsolicitedStart: 09-19-2024 End: 72-26-1735Clzvkgxdy Result EncounterCorey Samuel DO Work Phone: noms External Department UnsolicitedStart: 09-19-2024 End: 42-91-5503Uezexlfgl Result EncounterCorey Samuel DO Work Phone: noms External Department UnsolicitedStart: 09-06-2024 End: 12-86-3409Nzqddvlbp Result EncounterCorey Samuel DO Work Phone: noms External Department UnsolicitedStart: 09-06-2024 End: 96-41-7861Jjozevzug Result EncounterCorey Samuel DO Work Phone: noms External Department UnsolicitedStart: 09-05-2024 End: 92-32-2076Zaevpw outpatient visit 5 minutesFamaurao Nurse Noms Bcp ObNOMS BCP OBComment on above:GA: 1w7fFiylq: 09-05-2024 End: 89-24-0581nvkpexhhgdDNOAO FAZIONot AvailableStart: 09-01-2024 End: 06-24-7772Ywxzjesrs department patient visitNO PCP NO PCPProMedica Pennsylvania Furnace HospitalStart: 08-21-2024 End: 85-56-1462Esovecscx Result EncounterCorey Samuel DO Work Phone: noms External Department UnsolicitedStart: 08-21-2024 End: 01-59-9864Pykbdzpxw Result EncounterCorey Samuel DO Work Phone: noms External Department UnsolicitedStart: 08-19-2024 End: 14-25-0108Huumcypgf Result EncounterCorey Samuel DO Work Phone: noms External Department UnsolicitedStart: 08-19-2024 End: 66-70-2682Gkjshtdne Result EncounterCorey Samuel DO Work Phone: noms External Department UnsolicitedStart: 08-09-2024 End: 18-36-8260Wwccnrhenry Carr MD Work Phone: noms ENDOCRINOLOGYStart: 08-09-2024 End: 44-61-2558Jnxsumhenry Carr MD Work Phone: noms ENDOCRINOLOGYStart: 08-09-2024 End: 73-87-4485lsikwhfcuxJFPBV F SABBAGHNot AvailableStart: 08-09-2024 End: 73-42-5212Tzacfk outpatient visit 25 minutesAllen Carr MD Work Phone: noms ENDOCRINOLOGYComment on above:Alfredo's disease (Primary Dx); Vitamin D deficiency; Encounter for dietary consultation; Class 3 severe obesity due to excess calories without serious comorbidity with body mass index (BMI) of 40.0 to 44.9 in adult (CMS-HCC); Thyroid disease during , first trimester (HCC); Hypothyroidism, unspecified typeStart: 80-98-4341Kfvxbzc encounter statusAllen Carr MD Work Phone: noms HealthcareStart: 03-26-2024 End: 73-12-3046Hethuit encounter procedureCorey Samuel DO Work Phone: [facility] OBComment on above:Encounter for removal of intrauterine contraceptive device (IUD)Start: 03-26-2024 End: 23-47-5643tpjlydavbvXECAV TERIONot AvailableStart: 11-20-2023 End: 73-73-1988Ksjaffk encounter procedureJUICE Altman Work Phone: [facility] Work Phone: Start: 11-20-2023 End: 93-69-0797pnzjnsvdtlYRYSt. Vincent Hospital [facility] Work Phone: Start: 11-20-2023 End: 11-41-8133vrgqljeexxZBIAtrium Health [facility] Work Phone: Start: 11-20-2023 End: 76-00-0558Omrjzce encounter procedureJUICE Altman Work Phone: [facility] Work Phone: Start: 10-10-2023 End: 23-50-4586Gimbwfbx ReferredJUICE Altman Work Phone: [facility] [place] Work Phone: Start: 10-10-2023 End: 80-21-5046pzoncvoirgXzpovo M [facility] Work Phone: Start: 10-10-2023 End: 10-27-1050Wwapedx encounter procedureUn[facility] Work Phone: Start: 04-18-2023 End: 23-44-8304tyvhjkulhgDyhyhxpklEast [facility] Work Phone: Start: 04-18-2023 End: 69-30-8081Faddphp encounter procedureUnc Medical Center [facility] Work Phone: start: 04-06-2023 End: 69-44-9786ccdjjykzmbSbcze Keller Other [employer] Other Start: 52-85-1879Ykjkeu outpatient visit 25 minutes Linda GhulamlerFPG Urgent Care ClydeStart: 02-02-2023 End: 99-32-6140dfgnkplnmlGkqag Keller Other [employer] Other Start: 59-98-4819Rxfmiqseh encounterAmber GhulamlerFPG Urgent Care Colt RoadStart: 01-30-2023 End: 50-98-0184nqxxoxztepRsjfgj Mary Other [employer] Other Start: 56-55-4929Liteqd outpatient visit 15 minutes Addie DydelbertFPG Urgent Care ClydeStart: 01-30-2023 End: 74-42-7452Hcubmrq encounter procedureFiruva health [facility] Work Phone: Start: 27-71-9583Nofgil outpatient visit 15 minutes Linda SkyFPG Urgent Care ClydeStart: 12-13-2022 End: 48-84-0173Drevaae encounter procedureAPRN Linda Swanson Work Phone: [facility] Work Phone: Start: 12-13-2022 End: 39-62-8759lzrtanvxadAdrul Michela SwansonBellevue Hospital [facility]tr Work Phone: Start: 08-15-2022 End: 15-95-2331wgzmrbbdqgXndmrd Mary Other [employer] Other Start: 44-92-2698Bsagff outpatient new 20 minutes Addie DymondFPG Urgent Care ClydeStart: 07-26-2022 End: 10-97-0241nnhnhyerrjMS HA SAMUEL .Facility:D5Vfsty: 06-27-2022 End: 83-74-0968hazenxnlxlBO HA SAMUEL .Facility:W1Hxabk: 06-27-2022 End: 91-98-3804jpdchajmouQY HA SAMUEL .Facility:J7Gtmtz: 06-10-2020 End: 87-40-4689erhenhaxjaUggg Malina Work Phone: COVID Vaccine [place] Procedures DateProcedureProcedure DetailPerforming ClinicianStart: 15-47-3439ZZBZMOEWAS Ha Samuel DO Work Phone: Start: 36-22-2266Txrzt dip stick/tablet rgnt non-auto w/o micrscpCorey Samuel DO Work Phone: Start: 81-84-3526JRMAFANDY VAGINITIS (HTRX)Caryn Lopez NP Work Phone: Start: 48-47-0263Dkjjp dip stick/tablet rgnt non-auto w/o micrscpCaryn Lopez SCREENER AND BLENDER Work Phone: Start: 52-34-9223HHH,APTIMA HPV,AGE GDLNCaryn Lopez SCREENER AND BLENDER Work Phone: Start: 69-80-4997Ngmjjkozqiy observation [Identifier] in Cervix by Cyto Celeste Plascencia MD Work Phone: Start: 72-19-5941Bemvu dip stick/tablet rgnt non-auto w/o micrscpCorey Samuel DO Work Phone: Start: 94-13-5675HPFRUQM TOLERANCE 3 HOURCorey Samuel DO Work Phone: Start: 23-11-7860NJT CBC WITH AUTO DIFFCorey Samuel DO Work Phone: Start: 33-94-2357JCH CBC WITH AUTO DIFFCorey Samuel DO Work Phone: Start: 12-64-4106Tpmgd dip stick/tablet rgnt non-auto w/o micrscpCorey Samuel DO Work Phone: Start: 85-61-3783CWV PREG QUANT HCGCorey Samuel DO Work Phone: Start: 16-38-7117IRE PREG QUANT HCGCorey Samuel DO Work Phone: Start: 15-24-4849AUS REMOVALCorey Samuel DO Work Phone: Start: 25-70-1597URMUE Antigen (POC)JUICE Feldmanmichelle Altman Work Phone: Start: 19-88-8103Aedrf Strep (POC)PIE FILLER Dianamichelle Altman Work Phone: Start: 69-69-9028Dvuhf chest X-rayAPRJarek Altman Work Phone: Start: 09-78-8799Mvmov cultureAPRJarek Diana Anupama Work Phone: Start: 52-77-7168PLKLO/Influenza Antigen (POC)Start: 00-10-0641E-ray of left ankleAPRN Linda Swanson Work Phone: Plan of Treatment DateCare ActivityDetailAuthorStart: 57-90-7541Wytzchmvn for malignant neoplasm of cervixPap SmearProOhiohealth Mansfield HospitalFoodist SystemStart: 53-29-5367Fgbyj BMI Screening Adult BMI ScreeningProCleveland Clinic [facility] SystemStart: 31-45-4774Gjpvvhu Screening Tobacco ScreeningProCleveland Clinic Children'S [facility] For [facility] SystemStart: 12-13-2025 End: 06-10-6185LC MFM with or without consultUS MFM with or without consult Imaging Routine Hypothyroidism affecting in second trimester Expected: 12/13/2025 (Approximate), Expires: 12/13/2025[employer] Work Phone: comment on above:Expected: 12/13/2025 (Approximate), Expires: 12/13/2025Start: 04-65-1415Eivdi BMI ScreeningAdult BMI Screening [facility] SystemStart: 01-21-2025 End: 61-03-9221Mtfmolu encounter /25/2025 2:15 PM EST Appointment [facility] - Ultrasound [address] [place] [address] IrhSmbyxk [facility] - UltrasoundStart: 01-09-2025 End: 53-84-7843Lbrzbrq encounter xooymqvei36/13/2025 10:50 AM EST Routine [facility] [address] [place] [address] Karla Matthews PA [address] [place] [address] SUNITA GONSALVEStart: 12-19-2024 End: 32-51-6089Eofrnmd encounter mgeupdysi94/23/2025 11:30 AM EDT Office Visit [facility] [address] [place] [address] Allen Carr MD [address] [place] [address] SUNITA Bhakta EndocrinologyStart: 12-13-2024 End: 93-57-6869Wowdzqa encounter tadufisro38/17/2025 8:45 AM EDT Office Visit [facility] at [facility] [address] [place] [phone] Kenji Plascencia MD [address] [place] [address] [facility]: 12-13-2024 End: 66-37-0008Ioobcks encounter oqtxpttnj41/17/2025 7:30 AM EDT Appointment [facility] [address] [place] [address] [phone] Cross Hospital US ImagingStart: 12-12-2024 End: 06-31-7906Gerqgen encounter /16/2025 11:20 AM EDT Routine [facility] [address] [place] [phone] Ha Baker, DO [address] [place] [address] N[facility]Palma [place] OBGYNStart: 12-12-2024 End: 03-69-3850Ixmquly encounter fwomechhp77/16/2025 9:30 AM EDT Procedure Visit [facility] [address] [place] [phone] Ha Baker, DO [address] [place] [address] NOMPalma [place] OBGYNStart: 11-14-2024 End: 41-49-1164Lfrpvma encounter mmoctzbca64/18/2025 11:20 AM EDT Office Visit [facility] [address] [place] [address] Allen Carr MD [address] [place] [address] SUNITA Bhakta EndocrinologyStart: 11-07-2024 End: 80-70-5903Laqns fetoprotein, maternalAlpha fetoprotein, maternal Lab Routine 17 weeks gestation of ([facility]) Second trimester ([facility]) Expected: 11/07/2024 (Approximate), Expires: 12/07/2024[facility] Comment on above:Expected: 11/07/2024 (Approximate), Expires: 12/07/2024Start: 11-07-2024 End: 23-39-8114HR for pregnancyUS OB 14+ weeks anatomy scan Imaging Routine Screening, , for anatomic survey ([facility]) Expected: 11/07/2024, Expires: 02/06/2025NONM HealthcareComment on above:Expected: 11/07/2024, Expires: 02/06/2025Start: 11-07-2024 End: 95-67-2056Qppehtj encounter procedureNOMS [place] OBGYNComment on above: ArrivedStart: 97-54-5345Odndvbdqm vaccinationInfluenza VaccineMedina Hospital SystemStart: 10-08-2024 End: 13-35-0190Feysdxx encounter procedureNOMS BCP OBComment on above:Arrived Start: 10-04-2024 End: 08-13-2873Jnyvdvwvpdm [Units/volume] in Serum or PlasmaTSH Lab Routine Alfredo's disease Thyroid disease during , first trimester (HCC) Expected: 10/04/2024 (Approximate), Expires: 10/04/2025NONM HealthcareComment on above:Expected: 10/04/2024 (Approximate), Expires: 10/04/2025Start: 10-04-2024 End: 78-12-3414Mohcqmqgb (T4) free [Mass/volume] in Serum or PlasmaT4, free Lab Routine Alfredo's disease Thyroid disease during , first trimester (HCC) Expected: 10/04/2024 (Approximate), Expires: 10/04/2025[facility] Comment on above:Expected: 10/04/2024 (Approximate), Expires: 10/04/2025Start: 10-04-2024 End: 70-07-4487Ubvrrcxceuadxlvz (T3) Free [Mass/volume] in Serum or PlasmaT3, free Lab Routine Alfredo's disease Thyroid disease during , first trimester (HCC) Expected: 10/04/2024 (Approximate), Expires: 10/04/2025[facility] Work Phone: Comment on above:Expected: 10/04/2024 (Approximate), Expires: 10/04/2025Start: 10-04-2024 End: 94-25-5846Stlrcci encounter procedureNOMS SH ENDOCRINOLOGYComment on above: ArrivedStart: 09-05-2024 End: 61-29-8470YIS/RhABO/Rh Lab Routine Missed menses , unspecified gestational age ([facility]) Expected: 09/05/2024 (Approximate), Expires: 09/05/2025[facility] HealthcareComment on above:Expected: 09/05/2024 (Approximate), Expires: 09/05/2025Start: 09-05-2024 End: 03-48-3768Tlzcg type and Indirect antibody screen panel - BloodType and screen Lab Routine Missed menses , unspecified gestational age ([facility]) Expected: 09/05/2024 (Approximate), Expires: 09/05/2025[facility] Work Phone: comment on above:Expected: 09/05/2024 (Approximate), Expires: 09/05/2025Start: 09-05-2024 End: 56-35-0037Vjrnd of abuse panel - Urine by Screen methodRapid drug screen, urine Lab Routine , unspecified gestational age ([facility]) Encounter for supervision of normal first in first trimester ([facility]) Expected: 09/05/2024 (Approximate), Expires: 09/05/2025[facility] HealthcareComment on above: Expected: 09/05/2024 (Approximate), Expires: 09/05/2025Start: 09-05-2024 End: 98-62-0992imuvfirkpz47/10/2025 1:30 PM EDT Initial [facility] [address] [place] [address] [facility] BCP OBStart: 09-05-2024 End: 53-58-5272Sywgjugftwtt / ancillary services rycvdqiczd75/10/2025 1:00 PM EDT Ancillary Procedure [facility] [address] [place] [address] [facility] BCP OBStart: 08-09-2024 End: 93-98-1471Xspvingmffi [Units/volume] in Serum or PlasmaTSH Lab Routine Alfredo's disease Thyroid disease during , first trimester ([facility]) Expected: 08/09/2024 (Approximate), Expires: 08/09/2025NON[facility] HealthcareComment on above:Expected: 08/09/2024 (Approximate), Expires: 08/09/2025Start: 08-09-2024 End: 21-55-4476Jbmtwooky (T4) free [Mass/volume] in Serum or PlasmaT4, free Lab Routine Alfredo's disease Thyroid disease during , first trimester (HCC) Expected: 08/09/2024 (Approximate), Expires: 08/09/2025[facility] Comment on above:Expected: 08/09/2024 (Approximate), Expires: 08/09/2025Start: 08-09-2024 End: 92-16-6047Piuusjsuqqdarqlv (T3) Free [Mass/volume] in Serum or PlasmaT3, free Lab Routine Alfredo's disease Thyroid disease during , first trimester (HCC) Expected: 08/09/2024 (Approximate), Expires: 08/09/2025[facility] Work Phone: Comment on above:Expected: 08/09/2024 (Approximate), Expires: 08/09/2025Start: 54-08-4969Spwczdfi identified in Urine by Culture [facility]: 90-19-4211Erory microalbumin profile DTAP,TDAP,TD (2 - Td)[facility]: 42-98-2969EOX TESTINGPAP TESTING [facility]: 95-58-8202Hvozvdphu vaccinationINFLUENZA (Season Ended) [facility]: 23-96-8150QUxG,Tdap and Td Vaccines (2 - Td or Tdap) DTaP,Tdap and Td Vaccines (2 - Td or Tdap)Critical access hospitaltart: 47-69-7183Umcsnbtri for malignant neoplasm of cervixPap SmearCritical access hospitaltart: 28-92-5962Narog BMI Follow Up PlanAdult BMI Follow Up PlanCritical access hospitaltart: 19-58-4412VVUPAIJYN C SCREENINGHEPATITIS C SCREENING [facility]: 85-47-2778HUT SCREENINGHIV SCREENINGOhiohealth [facility] Start: 34-91-9526Foopn depression screening assessmentDEPRESSION SCREENING Critical access hospitaltart: 40-52-1214Qycbgij ScreeningTobacco Screening [facility] DaytonBacteria identified in Urine by CultureUrine culture Microbiology Routine Missed menses Ordered: 09/05/2024[facility] HealthcareComment on above:Ordered: 09/05/2024BC W Auto Differential panel - BloodCBC and differential Lab Routine Missed menses , unspecified gestational age ([facility]) Ordered: 09/05/2024[facility] [...] Missed menses , unspecified gestational age ([facility]) Ordered: 09/05/2024[facility] HealthcareComment on above:Ordered: 09/05/2024Hepatitis B virus surface Ag [Presence] in Serum or Plasma by ImmunoassayHepatitis B surface antigen Lab Routine Missed menses , unspecified gestational age ([facility]) Ordered: 09/05/2024[facility] HealthcareComment on above:Ordered: 09/05/2024Hepatitis C virus Ab [Presence] in Serum or Plasma by ImmunoassayHepatitis C antibody Lab Routine Missed menses , unspecified gestational age ([facility]) Ordered: 09/05/2024[facility] HealthcareComment on above:Ordered: 09/05/2024HIV-1/HIV-2 antigen/antibody combination immunoassayHIV-1 and HIV-2 antibodies Lab Routine Missed menses , unspecified gestational age ([facility]) Ordered: 09/05/2024[facility] HealthcareComment [...] Routine Missed menses , unspecified gestational age ([facility]) Ordered: 09/05/2024[facility] HealthcareComment on above: Ordered: 09/05/2024Rubella antibody, IgGRubella antibody, IgG Lab Routine Missed menses , unspecified gestational age ([facility]) Ordered: 09/05/2024[facility] HealthcareComment on above:Ordered: 09/05/2024 End: 04-61-2821QBMC-COVID VACCINE 1ST DOSE APPTSARS-COVID VACCINE 1ST DOSE APPT Procedures Routine 1 Occurrences starting 06/10/2020 until 08/09/2020leveland ClinicComment on above:1 Occurrences starting 06/10/2020 until 08/09/2020 SURESWAB(R) ADVANCED VAGINITIS PLUS, TMASURESWAB(R) ADVANCED VAGINITIS PLUS, TMA Pathology and Cytology Routine Exposure to STD Ordered: 11/07/2024[facility] Work Phone: comment on above:Ordered: 11/07/2024XR Chest 2 [facility] Immunizations Immunization DateImmunizationNotesCare GgnionowMhjoncci78-23-2642orjbaeh toxoid, reduced diphtheria toxoid, and acellular pertussis vaccine, adsorbedAhcherri Carr MD Work Phone: [facility] Payers DatePayer CategoryPayerPolicy [id number] (Managed Care)[facility] [id number] 2025[facility] Member Subscriber Plan / Payer (Effective 2024-Present) Name: Brittnee Smith Relation to Subscriber: Self Name: Brittnee Smith Payer ID: [id number] (NAIC) Group ID: Not on file Type: Not on file Address: [address] [id number] 2019Private Health InsuranceAETNA [place] PPO [id number] 2018-Present [id number] Health InsuranceAETNA AETNA PPO [id number] 2018-Present [id number] 2.0.1.280557.3.57[id number] 2.0.1.569898.3.57[id number] 2.840.1.775635.3.57[id number] 2.0.1.852289.3.57[id number] 2.0.1.224434.3.57[id number] 2.840.1.420448.3.57[id number] 2..840.1.034585.3.57[id number] 2.16.840.1.314933.3.57[id number] 2.16.840.1.358095.3.57[id number] 2.16.840.1.747183.3.57[id number] 2.840.1.199301.3.57[id number] 2.840.1.884589.3.57[id number] 2.0.1.453827.3.57[id number] 2.840.1.463654.3.57[id number] 2.840.1.54[id number] 2.840.1.331463.3.579.2.531 [id number] 2.0.1.6[id number] 2.0.1.821211.3.579.2.531 Social History DateTypeDetailFacilityStart: 07-02-2018 End: 62-68-3092Jgyrnyr smoking status NHISNever smokerCleveland Clinic Hillcrest Hospitaltart: 07-02-2018 End: 42-31-8285Ekozfwi use and exposureNever usedCleveland Clinic Fairview Hospitaltart: 07-02-2018 End: 51-63-4794Yxkweyz intakeCurrent drinker of alcohol (finding)[facility] Hospitaltart: 40-22-5918Eql Assigned At BirthNot on fileCleveland Clinic Fairview Hospitaltart: 08-07-2023 End: 14-15-7630Mtv Assigned At [facility]: 83-41-4556Pjn Assigned At [facility]: 08-07-2023 End: 41-93-1528Ohinjchda beverage intakeMedina Hospital SystemStart: 09-04-2022 Alcohol CommentAlcohol: 1 or 2 drinks, 2 to 4 times a month; Caffeine: 1 can /weekK[facility] HealthcareStart: 02-91-7109Eefpro identityIdentifies as female gender (finding)[facility] CareStart: 65-88-4429Rnmasw orientationHeterosexual (finding)[facility] CareStart: 44-42-0045XdkdnrwgtXFLW HealthcareStart: 11-14-2024 End: 22-40-7125Auihxcesh beverage intakeEx-drinker (finding)Critical access hospitaltart: 50-74-4463JzemraevsAauyoxvWhwAixmii Health SystemStart: 10-02-2014 SexFemale (finding)[facility] Functional Status GnxsQrmdfonpnxIzccqwJukgurfl58-76-3719Iklpwad Health Questionnaire 2 item (PHQ- 2) [Reported][facility] Clinical Notes 06-10-2020 to 12-13-2024 Note Date & DyymYcrgPsjcojpx31-98-1844 History of Present illness Narrative* Kenji Plascencia [...] mcg of Synthroid. 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 Previous 3 pregnancies [...] and the other consultants, we search on [employer] and all the available care everywhere [facility] I did review all the imaging studies of the patient available on EMR, ordered by the primary care physician and the other client relationship consultant HABITS: Patient activity no restrictions, diet [...] patient is in complete care of her forensic manager. Patient does have ultrasound scheduled with us [...] Yes Have you been seen here at [facility] in a previous ? Yes Recent ER visits or hospitalizations? No Bring blood sugar log or meter with you today? (Please bring them with you for every visit at [facility]) N/A Flu vaccine (Dec-April)? N/A Any concerns that you would like me to mention to the provider today? No documented in this encounterK[facility] Health Dayton10-16-2025 History of Present illness Narrative* Calista Khan LPN - 12/12/2024 9:30 AM EDTAssociated Order(s): Colposcopy Post-Procedure Diagnose(s): Colposcopy needed after cervical smear; Second trimester ([facility] 22 weeks gestation of ([facility]) Reason for Appointment: Patient ID: Brittnee Smith [...] Unable to comply with treatment 07/26/2022 ([facility]) 11/28/2017 Exposure to STD 05/31/2023 Encounter for weight management 05/31/2023 Dermatitis, atopic 08/04/2005 Allergic rhinitis 02/18/2000 Asthma ([facility]) 02/18/2000 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 Exam conducted with a hat presser present. Vitals: Estimated body mass index is 41.81 kg/m as calculated from the following: Height as of 10/04/24: 5' 3 . Weight as of this encounter: 236 lb. BP: 108/62 Patient's last menstrual period was 06/26/2024. ASSESSMENT & PLAN Assessment/Plan Encounter Diagnosis: ICD-10-CM 1. Colposcopy needed after cervical smear R87.619 2. Second trimester ([facility]) Z34.92 3. 22 weeks gestation of ([facility]) Z3A.22 POCT urinalysis dipstick manually resulted Colposcopy [...] weeks of levels. Patient is scheduled with [facility] for anatomy scan tomorrow. Follow Up: [...] TOOTH EXTRACTION 07/2013 teeth documented in this encounterUniversity of Missouri Health CareWahzveagap70-30-8519 Telephone encounter Note* Telephone Encounter - Caryn Lopez NP - 11/13/2024 4:56 PM EDT Please schedule for colposcopy due to PAP ASCUS and HPV positive [facility] Work Phone: [phone] Miscellaneous Notes* Telephone Encounter - Caryn Lopez NP - 11/13/2024 4:56 PM EDT Please schedule for colposcopy due to PAP ASCUS and HPV positive documented in this encounterUniversity of Missouri Health CareSnqtpyfgso15-69-7169 History of Present illness Narrative* Caryn Lopez [...] 11/16/2017 Unable to comply with treatment 07/26/2022 ([facility]) 11/28/2017 Exposure to STD 05/31/2023 Encounter for weight management 05/31/2023 Dermatitis, atopic 08/04/2005 Allergic rhinitis 02/18/2000 Asthma ([facility]) 02/18/2000 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 Exam conducted with a hat presser present. Vitals: Estimated body mass index is 40.64 kg/m as calculated from the following: Height as of 10/04/24: 5' 3 . Weight as of this encounter: 229 lb 6.4 oz. BP: 100/72 Patient's last menstrual period was 06/26/2024. ASSESSMENT & PLAN ICD-10-CM 1. 17 weeks gestation of ([facility]) Z3A.17 POCT urinalysis dipstick manually resulted Alpha fetoprotein, maternal Alpha fetoprotein, maternal 2. Second trimester ([facility]) Z34.92 POCT urinalysis dipstick manually resulted Alpha fetoprotein, maternal Alpha fetoprotein, maternal 3. History of hyperthyroidism Z86.39 4. Well woman exam with routine gynecological exam Z01.419 Pap Smear HPV DNA probe, amplified 5. Screening, , for anatomic survey ([facility]) Z36.89 US OB 14+ weeks anatomy scan US OB 14+ weeks anatomy scan 6. Vaginal discharge N89.8 CHLAMYDIA TRACHOMATIS (GENITO/STI) Neisseria gonorrhea DNA probe, direct 7. Exposure to STD Z20.2 SURESWAB(R) ADVANCED VAGINITIS PLUS, TMA Return OB/Annual Exam: Patient presents today for a annual exam/routine obstetrics appointment. Patient is currently 10t8negvzqicq. Patient states she is doing well but [...] Synthroid at 300mcg per Dr. Carr her Customer Marketing Intern. Will also refer to [facility] Patient was in the ER for a toe infection and was treated she was having high blood pressure there and [facility] 2 [facility]. Referral will be sent to [facility] given her history of hypothyroidism. 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 Exam conducted with a hat presser present. Vitals: Estimated body mass index is 40.35 kg/m as calculated from the following: Height as of 25: 5' 3 . Weight as of this encounter: 227 lb 12.8 oz. BP: 108/70 Patient's last menstrual period was 06/26/2024. ASSESSMENT & PLAN ICD-10-CM 1. 13 weeks gestation of ([facility]) Z3A.13 POCT urinalysis dipstick manually resulted 2. 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 Acute bronchitis 05/13/2024 Acute pharyngitis 09/10/2009 Acute streptococcal pharyngitis 05/13/2024 Encounter for childhood immunizations appropriate for age 0708/30/2007 Obesity affecting , antepartum ([facility]) 11/13/2018 Hyperthyroidism 11/28/2017 Resolved Ambulatory Problems Diagnosis Date Noted Anemia of ([facility]) 04/24/2018 -induced hypertension ([facility]) 04/29/2018 Past Medical History: Diagnosis Date [...] dipstick manually resulted , unspecified gestational age ([facility]) - Type and screen; Future - ABO/Rh; Future - CBC and differential - Hemoglobin A1c - RPR - Rubella antibody, IgG - Hepatitis B surface antigen - Hepatitis C antibody - HIV-1 and HIV-2 antibodies - Rapid drug screen, urine; Future Encounter for supervision of normal first in first trimester ([facility]) - Rapid drug screen, urine; Future Nurse [...] by: Marcie Flannery LPN documented in this encounterUniversity of Missouri Health CareQucqtkliuv63-63-1451 History of Present illness Narrative* Allen Carr [...] of 40.0 to 44.9 in adult ([facility]) Thyroid disease during , first trimester ([facility]) - Synthroid 300 MCG tablet; Take 1 tablet (300 mcg) by mouth Daily - T3, free; Future - T4, free; Future - TSH; Future She just found she is , we will check free T4 free T3 to keep it in the high-normal. Follow up in about 2 months (around 10/09/2024). documented in this encounterUniversity of Missouri Health CareLfskiccoab84-30-3527 History of Present illness Narrative* Brandy Galeana [...] nursing note reviewed. Exam conducted with a hat presser present. Vitals: Estimated body mass index is [...] given: yes Instructions and paperwork completed: yes Hope protocol: Patient states understanding of procedure being [...] of: Ha Baker DO documented in this encounterUniversity of Missouri Health CareIdljfuhkzn33-25-1473 Evaluation note* Encounter Date Diagnosis Assessment Notes [...] treatment plan. Patient left in stable condition. [facility] Other 12-04-2023 Evaluation note* Encounter Date Diagnosis [...] the ER for worsening symptoms or concerns [facility] Other 10-17-2023 Evaluation note* Encounter Date Diagnosis [...] understanding and is agreeable to treatment plan [facility] Other 06-19-2023 Evaluation note* Encounter Date Diagnosis [...] Tylenol as needed for aches or pains. [facility] Other 04-14-2021 NotePatient Outreach ([facility]OV[facility]) BRITTNEE SMITH ([id number]) 1995 F Date Time Provider Department 06/10/20 JOSE A STEWART COVJUDYW During your visit today, we recorded the following information about you: Allergies As of Date: 06/10/2020 Noted Allergy Reaction SULFA (SULFONAMIDE ANTIBIOTICS) 07/02/2018 2 - Rash Date Reviewed: 07/02/2018 Reviewed by: Sakina PickeringIL) - Fully Assessed Order(s):SARS-COVID VACCINE 1ST DOSE APPT [87132IIC] Order #: [id number] FUTURE SARS-COVID VACCINE 1ST DOSE APPT [75108GMJ] Order #: [id number] Prescriptions as of 06/10/2020 Sig: SYNTHROID 125 MCG TABLET Take 2 tablets by mouth once * Problem List As Of Date: 06/10/2020 (None) Encounter Status:Closed by APRIL NIXON on 06/15/20[facility]Evaluation noteNo assessment information availableCommunity Memorial Hospital Work Phone: Evaluation noteNo InformationNort [employer] Other Evaluation note* Diagnosis Onset Date Resolution Status Acute UTI acute [facility] Work Phone: Evaluation note* Diagnosis Onset Date Resolution Status Acute UTI acuteBronchitisacute [facility] Work Phone: Evaluation note* Diagnosis Encounter for removal of intrauterine contraceptive device (IUD) documented in this encounter [facility] HealthcareEvaluation note* Diagnosis Alfredo's disease- Primary Chronic lymphocytic thyroiditis Vitamin D deficiency Encounter for dietary consultation Class 3 severe obesity due to excess calories without serious comorbidity with body mass index (BMI) of 40.0 to 44.9 in adult ([facility]) Thyroid disease during , first trimester ([facility]) Hypothyroidism, unspecified type documented in this encounter [facility] HealthcareEvaluation note* Diagnosis Missed menses , unspecified gestational age ([facility]) Encounter for supervision of normal first in first trimester ([facility]) documented in this encounter [facility] HealthcareEvaluation note* Diagnosis Alfredo's disease- Primary Chronic lymphocytic thyroiditis Vitamin D deficiency Encounter for dietary consultation Thyroid disease during , first trimester ([facility]) Hypothyroidism, unspecified type documented in this encounter [facility] HealthcareEvaluation note* Diagnosis 13 weeks gestation of ([facility]) Second trimester ([facility]) state, incidental Nausea and vomiting in ([facility]) Unspecified vomiting of , unspecified as to episode of care History of hyperthyroidism Constipation, unspecified constipation type documented in this encounter [facility] HealthcareEvaluation note* Diagnosis 17 weeks gestation of ([facility]) Second trimester ([facility]) state, incidental History of hyperthyroidism Well woman exam with routine gynecological exam Routine gynecological examination Screening, , for anatomic survey ([facility]) Encounter for anatomic survey Vaginal discharge Leukorrhea, not specified as infective Exposure to STD documented in this encounter [facility] HealthcareEvaluation note* Diagnosis Colposcopy needed after cervical smear Second trimester ([facility]) state, incidental 22 weeks gestation of ([facility]) documented in this encounter [facility] HealthcareEvaluation note* Diagnosis 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 documented in this encounterUniversity of Missouri Health CareInstructionsNot on filedocumented in this encounterProCleveland Clinic [facility] SystemInstructionsNot on filedocumented in this encounterProCleveland Clinic [facility] SystemInstructionsNot on filedocumented in this encounterMedina Hospital System Summary Purpose Family History No [...] prosecute any alcohol or drug abuse patient.[facility] INFORMATION SOURCE (unrecogn ized section and content) DATE CREATED AUTHOR 06/17/2020 [facility] DATE CREATED AUTHOR AUTHOR'S ORGANIZ ATION 08/05/2022 [facility] DATE CREATED AUTHOR AUTHOR'S ORGANIZ ATION 11/28/2023 [facility] DATE CREATED AUTHOR AUTHOR'S ORGANIZ ATION 10/25/[address] [facility] DATE CREATED AUTHOR AUTHOR'S ORGANIZ ATION 12/14/2024 [facility] DATE CREATED AUTHOR AUTHOR'S ORGANIZ ATION 12/15/2024 [facility] REASON FOR VISIT (unrecogniz ed section and [...] Date No Pcp, [place] [address] PCP - GeneralFamily Medicine10/23/24Team MemberRelationshipSpecialtyStart DateEnd Date No Pcp, [place] [address] PCP - GeneralFamily Medicine10/23/24Team MemberRelationshipSpecialtyStart DateEnd Date No Pcp, [place] [address] PCP - GeneralFamily Medicine10/23/24 Goals (unrecognized section [...] THE PRIMARY CLINICAL RECORDS. [facility]. provides no warranty or guarantee of the accuracy or completeness of information in this document.
--- OUTSIDE RECORDS SUMMARY | 2025-02-23 10:11 | XMS_ITS ---
Author Organization [facility] Address [address] [place] [address] Care Team Providers Care Creative Services Designer Name Role Phone Unavailable Primary Care Provider Unavailabl e Comprehensive Maternal Care (CMC) Status:Closed (Closed) Start date:11/11/2024 Enrollment date:11/15/2024 Enrollment reason:Identified by Health Plan End date:02/13/2025 Close reason:Unable to reach patient Continued Care and Services Coordination
--- OUTSIDE RECORDS SUMMARY | 2025-02-23 10:11 | XMS_ITS | Patient Health Record ---
Author Organization [facility] Address [address] [place] [address] Care Team Providers Care Backwinder Name Role Phone emmy schultz Unavailable [phone] Allergies Allergen (clinical drug ingredient) Drug/Non Drug [...] Status W/U Status Risk Notes Problem Obesity (357317404) Obesity (BMI 35.0-39. 9 without comorbidity) (E66.9) Activeconfirmed Plan Of Treatment Pending Test Test Name Order Date X ray : Spines, lumbosacral 08/14/2018 URINE RAPID TEST 08/14/2018 CMP Comprehensive Metabolic Panel w/ eGF R (83768) [facility] 08/14/2018 Lipid Panel w/ Reflex to Direct LDL (148 52) [facility] 08/14/2018 Vitamin D, 25-Hydroxy, Total, Immunoassa y (74493) - [facility] 08/14/2018 HEMOGLOBIN A1c (496) [facility] 08/14/2018 UA Urinalysis Complete (7229) [facility] 07/28 CBC (includes Differential and Platelets ) (8699) [facility] 08/14/2018 TSH and FREE T4 (10466) [facility] 08/14/2018 Insurance Providers Payer Name Payer Address Payer Phone Subscriber Number Group Number Insured Name Patient Relationship to Insured Coverage Start Date Coverage End Date [employer] [facility] PPO/POS/HMO XPRESS [address] [place] [address] [id number] Lars Mathur - patient is the insured Medical (General) History Medical History History ICD Code high blood pressure THYROID DISORDERSurgical History Surgery Date(Month/Year) right hand surgery 10/11 Hospitalization History Reason Date(Month/Year) broken hand 09/10 induced 05/17/18
--- OUTSIDE RECORDS SUMMARY | 2025-02-23 10:11 | XMS_ITS | Encounter Summary ---
Author Organization [facility] Address [address] [facility] [place] [address] Care Team Providers Care Laboratory Courier Name Role Phone Unavailable Primary Care Provider Unavailabl e Encounter Details DateTypeDepartmentCare Team (Latest Contact Info)Lnnftcitvxe44/24/2025linisync Result Encounter [facility] External Department Unsolicited Ivy Baker DO [address] [place] [address] Social History Tobacco UseTypesPacks/DayYears UsedDateSmoking Tobacco: NeverSmokeless Tobacco: NeverAlcohol UseStandard Drinks/WeekCommentsYes2 (1 standard drink = 0.6 oz pure alcohol)Alcohol: 1 or 2 drinks, 2 to 4 times a month; Caffeine: 1 can /weekPHQ-2 AnswerDate RecordedPatient Health Questionnaire-2 Aigcb882 Estimated Date of XjzxzawwShhacgqgBut44/13/2026Based on UltrasoundSex and Gender InformationValueDate RecordedSex Assigned at ChwmxLshysl17/30/2023 8:23 AM EDT Legal PyoKscsde83/15/2023 7:11 PM EDTGender HhxxhousWdpbhn77/30/2023 8:23 AM EDT Sexual GnetnotusdkBbaqgctd44/30/2023 8:23 AM EDTdocumented as of this encounter Plan of Treatment DateTypeDepartmentCare Team (Latest Contact Info)Btgaqgmhjkx50/31/2025 10:40 AM ESTRoutine [facility] [address] [place] [address] Tess Lopez, HOSPITAL ADMITTING CLERK [address] [place] [address] 07/04/2025 10:10 AM EDTOffice Visit [facility] [place] [facility] [address] [place] [address] Allen Carr MD [address] [place] [address] documented as of this encounter Procedures Procedure NamePriorityDate/TimeAssociated DiagnosisCommentsUS OB BPP W NON-JNKZYG3702/19/2025 11:27 AM EST documented in this encounter Results * US OB BPP W NON-STRESS (02/19/2025 11:27 AM EST)Anatomical Region LateralityModalityOtherSpecimen (Source)Anatomical Location / Laterality Collection Method / VolumeCollection TimeReceived Time02/19/2025 11:27 AM EST Narrative 02/19/2025 11:29 AM EST [facility] ?[address] ? [place] [address] ? Ultrasound Report ? Signed ? Patient: YSASI,BRITTNEE S ?MR#: [id number] ?? : 1995 ?Acct:[id number] ?? Age/Sex: 29 / F ?ADM Date: 02/19/25 ?? Loc: US ? Attending Dr: Ivy Baker D.O. ? Ordering Physician: Ivy Baker D.O. ?? Date of Service: 02/19/25 ?? Procedure(s): US OB BPP w non-stress ?? Accession Number(s): [id number] ? cc: Ivy Baker D.O.; Physician,Non-Staff M.D. ? [facility] ? [address] ? [place] [address] ? Patient Name: ?? BRITTNEE S YSASI ? MRN: [facility]:[id number] ? date: 1995 ?Sex: F ?? Assigned Patient Location: [facility] ?? Current Patient Location: ? Accession/Order Number: [id number] ?? Exam Date: 02/19/2025 ??10:20 ?Report Date: 02/19/2025 ??11:27 ? At the request of: ?? IVY ??SAMUEL ??DO ? Procedure: ??US OB BPP w non-stress ? BIOPHYSICAL PROFILE: ? CLINICAL INFORMATION: MACROSOMIA O 36.61X0 ? COMPARISON: 02/13/2025 ? There is a single live intrauterine gestation in cephalic presentation. ??The ?? reported gestational age is 32 weeks 5 days. ??The heart rate wllvbyrx378 ?? beats per minute. ? FINDINGS: ? TONE: [...] 2 cm ? [Y] ? 2/2 ?BLANCHE: 12.7 cm ? Total score: ? 8/8 ? US/US OB BPP w non-stress ?? IMPRESSION: ? NORMAL BIOPHYSICAL PROFILE ? Impression dictated by: Brandy Shields M.D. ??02/19/2025 11:27 AM ? Dictation Location: RADIO-PC-30 ? Electronically authenticated by: [id number] ??Y ?? Date: 02/19/2025 ??11:27 ? Dictated By: ?Brandy Shields M.D. ? Signed By: ?02/19/25 1129 ? DD/ 1127 ? TD/TT: ? Director Of Strategic Programs: Procedure Note Radiology, Radiologist, - 02/19/2025 [place] [address] Ultrasound Report Signed Patient: BRITTNEE SMITH [facility]#: [id number] : 1995Acct:[id number] Age/Sex: 29 / FADM Date: 02/19/25 Loc: US Attending Dr: Ivy Baker D.O. Ordering Physician: Ivy Baker D.O. Date of Service: 02/19/25 Procedure(s): US OB BPP w non-stress Accession Number(s): [id number] cc: Ivy Baker D.O.; Physician,Non-Staff M.DMelisa The [address] [address] Patient Name: BRITTNEE SMITH MRN: [facility]:[id number] date: 1995 Sex: F Assigned Patient Location: [facility] Current Patient Location: Accession/Order Number: [id number] Exam Date: 02/19/2025 10:20 Report Date: 02/19/2025 11:27 At the request of: IVY BAKER DO Procedure: US OB BPP w non-stress BIOPHYSICAL PROFILE: CLINICAL INFORMATION: MACROSOMIA O 36.61X0 COMPARISON: 02/13/2025 There is a single live intrauterine gestation in cephalic presentation.The reported gestational age is 32 weeks 5 days. The heart iisvwiumomjp835 beats per minute. FINDINGS: TONE: 1 or [...] greater than 2 cm [Y] 2/2 BLANCHE: 12.7 cm Total score: 8/8 US/US OB BPP w non-stress IMPRESSION: NORMAL BIOPHYSICAL PROFILE Impression dictated by: Brandy Shields M.D. 02/19/2025 11:27 AM Dictation Location: [place] [address] Electronically authenticated by: [id number] Y Date: 1:27 Dictated By: Brandy Shields M.D. Signed By:02/19/25 1129 DD/ 1127 TD/TT: Director Of Strategic Programs: Authorizing ProviderResult TypeResult StatusCorey Samuel DOCLINISYNC IMAGINGFinal Result documented in this encounter Visit Diagnoses Not on filedocumented in this encounter
--- OUTSIDE RECORDS SUMMARY | 2025-02-23 10:11 | XMS_ITS | Encounter Summary ---
Author Organization [facility] Address [address] [facility] [place] [address] Care Team Providers Care Lead Systems Analyst Name Role Phone Unavailable Primary Care Provider Unavailabl e Encounter Details DateTypeDepartmentCare Team (Latest Contact Info)Qqzvhkxwpqb79/15/2025bstract SUNITA ANTHONY [address] [address] Ha Baker DO [facility] [address] [place], [place] [address] Social History Tobacco UseTypesPacks/DayYears UsedDateSmoking Tobacco: NeverSmokeless Tobacco: NeverAlcohol UseStandard Drinks/WeekCommentsYes2 (1 standard drink = 0.6 oz pure alcohol)Alcohol: 1 or 2 drinks, 2 to 4 times a month; Caffeine: 1 can /weekPHQ-2 AnswerDate RecordedPatient Health Questionnaire-2 Klxhx926 Estimated Date of WzsajbajDwdxgedlWdd97/13/2026Based on UltrasoundSex and Gender InformationValueDate RecordedSex Assigned at MorpqZyoypv96/30/2023 8:23 AM EDT Legal GmtJgdtqj46/15/2023 7:11 PM EDTGender SoletqghMegpxa57/30/2023 8:23 AM EDT Sexual FnmcbrjbzbhIwvcrgvo44/30/2023 8:23 AM EDTdocumented as of this encounter Plan of Treatment DateTypeDepartmentCare Team (Latest Contact Info)Ututbdviyzg06/31/2025 10:40 AM ESTRoutine [facility] [address] [employer] [address] [place] [address] Tess Lopez, KALIE [address] [place] [address] [address] [place] [place] [address] 07/04/2025 10:10 AM EDTOffice Visit [facility] [facility] [address] [place] [address] Allen Carr MD [address] [place] [address] documented as of this encounter Visit Diagnoses Not on filedocumented in this encounter
--- OUTSIDE RECORDS SUMMARY | 2025-02-23 10:11 | XMS_ITS | Encounter Summary ---
Author Organization [facility] Address [address] [facility] [place] [address] Care Team Providers Care Market Research Executive Name Role Phone Unavailable Primary Care Provider Unavailabl e Encounter Details DateTypeDepartmentCare Team (Latest Contact Info)Rtfxnhefnqs15/18/2025linisync Result Encounter [facility] External Department Unsolicited Ivy Baker DO [address] [place] [address] Social History Tobacco UseTypesPacks/DayYears UsedDateSmoking Tobacco: NeverSmokeless Tobacco: NeverAlcohol UseStandard Drinks/WeekCommentsYes2 (1 standard drink = 0.6 oz pure alcohol)Alcohol: 1 or 2 drinks, 2 to 4 times a month; Caffeine: 1 can /weekPHQ-2 AnswerDate RecordedPatient Health Questionnaire-2 Msplu284 Estimated Date of WjiyriomQjkzbpokNci79/13/2026Based on UltrasoundSex and Gender InformationValueDate RecordedSex Assigned at VcysqZdthli53/30/2023 8:23 AM EDT Legal AvaWdfsms79/15/2023 7:11 PM EDTGender FfaepsimXhnyxq70/30/2023 8:23 AM EDT Sexual UyjznnpywpuQopuzsgj08/30/2023 8:23 AM EDTdocumented as of this encounter Plan of Treatment DateTypeDepartmentCare Team (Latest Contact Info)Slxeckgiiib20/31/2025 10:40 AM ESTRoutine [facility] [address] [place] [address] Tess Lopez, PLANT CUSTODIAN [address] [place] [address] 07/04/2025 10:10 AM EDTOffice Visit [facility] [place] [facility] [address] [place] [address] Allen Carr MD [address] [place] [address] documented as of this encounter Procedures Procedure NamePriorityDate/TimeAssociated DiagnosisCommentsUS OB BPP W NON-JNBUBD4102/13/2025 11:39 AM EST documented in this encounter Results * US OB BPP W NON-STRESS (02/13/2025 11:39 AM EST)Anatomical Region LateralityModalityOtherSpecimen (Source)Anatomical Location / Laterality Collection Method / VolumeCollection TimeReceived Time02/13/2025 11:39 AM EST Narrative 02/13/2025 11:41 AM EST [facility] ?[address] ? [place] [address] ? Ultrasound Report ? Signed ? Patient: YSASI,BRITTNEE S ?MR#: [id number] ?? : 1995 ?Acct:[id number] ?? Age/Sex: 29 / F ?ADM Date: 02/13/25 ?? Loc: [facility] ??250-1 ? Attending Dr: Ivy Baker D.O. ? Ordering Physician: Ivy Baker D.O. ?? Date of Service: 02/13/25 ?? Procedure(s): US OB BPP w non-stress ?? Accession Number(s): [id number] ? cc: Ivy Baker D.O.; Physician,Non-Staff M.D. ? [facility] ? [address] ? [place] [address] ? Patient Name: ?? BRITTNEE S YSASI ? MRN: [facility]:[id number] ? date: 1995 ?Sex: F ?? Assigned Patient Location: [facility] ?? Current Patient Location: [facility] ?? Accession/Order Number: [id number] ?? Exam Date: 02/13/2025 ??10:55 ?Report Date: [...] Dictation Location: RADIO-PC-30 ? Electronically authenticated by: [id number] ??Y ?? Date: 02/13/2025 ??11:39 ? Dictated By: ?Brandy Shields M.D. ? Signed By: ?12/18/25 1141 ? DD/ 1139 ? TD/TT: ? Sales Agent Insurance: Procedure Note Radiology, Radiologist, MD - 02/13/2025 [place] [address] Ultrasound Report Signed Patient: BRITTNEE SMITH SMR#: [id number] : 1995Acct:[id number] Age/Sex: 29 / FADM Date: 02/13/25 Loc: [facility] 250-[address]: Ivy Baker D.O. Ordering Physician: Ivy Baker D.O. Date of Service: 02/13/25 Procedure(s): US OB BPP w non-stress Accession Number(s): [id number] cc: Ivy Baker D.O.; Physician,Non-Staff MKalani The [address] [address] Patient Name: BRITTNEE SMITH MRN: [facility]:[id number] date: 1995 Sex: F Assigned Patient Location: [facility] Current Patient Location: [facility] Accession/Order Number: [id number] Exam Date: 02/13/2025 10:55 Report Date: 02/13/2025 [...] Shields M.D. 02/13/2025 11:39 AM Dictation Location: [place] [address] Electronically authenticated by: [id number] Y Date: 1:39 Dictated By: Brandy Shields M.D. Signed By:02/13/25 1141 DD/ 1139 TD/TT: Sales Agent Insurance: Authorizing ProviderResult TypeResult StatusCorey Samuel DOCLINISYNC IMAGINGFinal Result documented in this encounter Visit Diagnoses Not on filedocumented in this encounter
--- OUTSIDE RECORDS SUMMARY | 2025-02-23 10:11 | XMS_ITS | Clinical Summary ---
Author Organization [facility] Address [address] [place] [address] Care Team Providers Care Needle Board Repairer Name Role Phone Unavailable Primary Care Provider Unavailabl e Allergies Active AllergyReactionsCriticalityNoted DateCommentsOtherRash,CmvfeCfi12/24/2023 PEDIAZOLE Sulfa AntibioticsOther,KssiGiniwb48/22/2012 Other Reaction(s): Unknown DujyimuuxjozskkrFcbmFws59/22/2023 Medications MedicationSigDispense QuantityRefillsLast FilledStart DateEnd DateStatus fluticasone (Flonase) 50 MCG/ACT nasal spray Administer 1 spray into each nostril Daily Shake gently. Before first use, prime pump. After use, clean tip and replace cap.Active Vit-Fe Fumarate-FA ( Vitamins) 28-0.8 MG tablet Indications:Positive urine test ([facility])Take 1 tablet by mouth Daily 30 tablet 306/30/092594/306Active bisacodyl (Dulcolax) 10 MG suppository Indications:Constipation, unspecified constipation typeUNWRAP AND INSERT 1 SUPPOSITORY RECTALLY DAILY FOR 10 DAYS 10 suppository 5Active levothyroxine (Synthroid) 25 MCG tablet Indications:History of hyperthyroidismTake 1 tablet (25 mcg) by mouth in the morning. Take before meals. 30 tablet 11011/08/576271/6Active Synthroid 300 MCG tablet Indications:Alfredo's disease,Thyroid disease during , first trimester (HCC)Take 1 tablet (300 mcg) by mouth Daily 90 tablet 109/15/406881/6Active Additional Information Patient not taking.Reported on 02/07/2025 [...] meals. 360 tablet Discontinued(Reorder) Lancets Ultra Thin [facility] Indications:Gestational diabetes mellitus (GDM), antepartum, gestational diabetes [...] for atotal of 4times daily. 150 strip 311/13/10028504/11/2024Expired Additional Information Patient taking differently:1 strip In Vitro Daily,(No times of day reported), Use in the morning prior to breakfast, 1 hour after each meal for a total of 4times daily., Reported on 02/07/2025 Active Problems ProblemNoted DateDiagnosed DateAcute ojbyuuxctc47/17/2025Acute streptococcal ztqhhgjercc38/17/2025Exposure to STD05/31/2023Encounter for weight management 1049Udpiyi02/30/2023luster headache twigsqwt61/30/2023ongenital hypothyroidism without htxnli0507/26/2022Missed sytakz0407/26/2022Unable to comply with cefukzzns64/30/2023Obesity affecting , antepartum ([facility]) 11/13/2018Pregnancy ([facility])11/28/20177392Xrfyzaymqvuwtaz39/02/2018Obesity (BMI 35.0-39.9 without comorbidity)11/16/20176599Faowmufbmbf50/01/2017Acute pharyngitis 09/10/2009Chondromalacia of bxnujbb2805/27/2009Encounter for childhood immunizations appropriate for age0708/30/2007Dermatitis, fltmoc3008/04/2005llergic vwroeqer83/22/8612Jscrdb11/22/0047Nlkklpyohvj89/01/1994Estimated Date of LgdqelazZdngowybBwe94/13/2026ased on Ultrasound Resolved Problems ProblemNoted DateDiagnosed DateResolved DatePregnancy-induced hypertension ([facility])nemia of ([facility]) Encounters DateTypeDepartmentCare BfzpOeacuwhtrcz09/24/2025linisync Result Encounter [facility] External Department Unsolicited Ivy Baker DO 02/17/2025 9:00 AM ESTAncillary Procedure [facility] [address] [place] [address] History of hyperthyroidism; Macrosomia of fetus affecting management of mother in first trimester, single or unspecified fetus ([facility])02/13/2025 9:00 AM ESTRoutine [facility] [address] [place] [address] Karla Matthews PA Third trimester ([facility]); 31 weeks gestation of ([facility]); Hypothyroidism, unspecified type02/13/2025linisync Result Encounter NOMS External Department Unsolicited Ivy Baker, DO 02/13/2025Patient Outreach [facility] [address] [place] [address] Karla Campa LPN 02/13/2025amboo flowsheet [facility] ANTHONY [address] [place] [address] Karla Matthews PA 02/10/2025bstract [facility] [address] [place] [address] Ivy Baker, DO 02/07/2025 10:20 AM ESTOffice Visit [facility] [place] [facility] [address] [place] [phone] Allen Carr MD Alfredo's disease (Primary Dx); Hypothyroidism, maternal, antepartum, third trimester ([facility]); Vitamin D deficiency; Encounter for dietary consultation; Class 3 severe obesity due to excess calories without serious comorbidity with body mass index (BMI) of 40.0 to 44.9 in adult ([facility])02/07/2025amboo flowsheet [facility] [place] [facility] [address] [place] [address] Allen Carr MD 5Clinisync Result Encounter NOMS External Department Unsolicited Ivy Baker, DO 01/30/2025linisync Result Encounter NOMS External Department Unsolicited Ivy Baker, DO 01/28/2025 11:30 AM ESTRoutine [facility] [address] [place] [address] Ivy Baker, DO Third trimester ([facility]); 29 weeks gestation of ([facility]); Elevated glucose tolerance test; History of hyperthyroidism; Macrosomia of fetus affecting management of mother in first trimester, single or unspecified fetus ([facility])01/28/2025amboo flowsheet [facility] [address] [place] [address] Ivy Baker, DO 01/22/2025bstract [facility] [address] [place] [address] Ivy Baker, DO 01/15/2025Patient Outreach [facility] [place] [address] [place] [address] Karla Campa LPN 01/09/2025 10:50 AM ESTRoutine [facility] Pelaez [place] [address] Karla Matthews, PA Second trimester ([facility]); 26 weeks gestation of ([facility]); Gestational diabetes mellitus (GDM), antepartum, gestational diabetes method of control unspecified([facility]); Elevated glucose tolerance test01/09/2025amb flowsheet [facility] ALFREDN [address] [address] Karla Matthews PA 12/13/2024bstract [facility] [address] [place] [address] Ivy Baker, DO 12/13/2024bstract [facility] [address] [place] [address] Ivy Baker, DO 12/13/2024External Result Encounter [facility] Pelae[address] [place] [address] Ivy Baker, DO 12/13/2024Patient Outreach [facility] [address] [place] [address] Karla Campa LPN 12/12/2024 9:30 AM EDTProcedure Visit [facility] ANTHONY [address] [place] [address] [place] [phone] Ivy Baker, Colposcopy needed after cervical smear; Second trimester ([facility]); 22 weeks gestation of ([facility])from Last 3 Months Immunizations ImmunizationAdministration DatesNext TufAdgu2308/04/2005 Family History Medical HistoryRelationNameCommentsHypothyroidismFatherDiabetesMaternal GrandfatherGrandpaDiabetesOtherpaternal auntsThyroid diseaseOtherpaternal side LymphomaPaternal GrandfatherRelationNameStatusCommentsFatherAliveMaternal GrandfatherGrandpaMotherAliveOtherPaternal Grandfather Social History Tobacco UseTypesPacks/DayYears UsedDateSmoking Tobacco: NeverSmokeless Tobacco: Never Tobacco Cessation:Counseling Given: Not Answered Alcohol UseStandard Drinks/WeekCommentsYes2 (1 standard drink = 0.6 oz pure alcohol)Alcohol: 1 or 2 drinks, 2 to 4 times a month; Caffeine: 1 can /weekPHQ-2 AnswerDate RecordedPatient Health Questionnaire-2 Xjunf144 Estimated Date of SiadakhyXxvmrrsmAax56/13/2026ased on UltrasoundSex and Gender InformationValueDate RecordedSex Assigned at TpbmzBjovuo24/30/2023 8:23 AM EDT Legal GnyTkjhqn14/15/2023 7:11 PM EDTGender QludnzfyPmgwcs78/30/2023 8:23 AM EDT Sexual DosxrplhaabXtpfefql11/30/2023 8:23 AM EDT Last Filed Vital Signs Vital SignReadingTime TakenCommentsBlood Afbqrizx592/8412 9:12 AM EST Mklvf748702/07/2025 10:32 AM ESTTemperature--Respiratory Ilas020504/10/2024 10:32 AM ESTOxygen Ueiodovhkt41%02/07/2025 10:32 AM ESTInhaled Oxygen Concentration-- Aofwtg936 kg (244 lb)02/13/2025 9:12 AM SZNGqahch482 cm (5' 3 )02/07/2025 10:32 AM ESTBody Mass Index43.22104/10/2024 10:32 AM EST Plan of Treatment DateTypeDepartmentCare Team (Latest Contact Info)Oysplqrkcoe88/31/2025 10:40 AM ESTRoutine [facility] [address] [place] [address] Tess Lopez, SENIOR POLICY ASSOCIATE [address] [place] [phone] 07/04/2025 10:10 AM EDTOffice Visit [facility] [place] [facility] [address] [place] [address] Allen Carr MD [address] [place] [address] Procedures Procedure NamePriorityDate/TimeAssociated DiagnosisCommentsUS OB BPP W NON-EXRBDW0502/19/2025 11:27 AM EST US OB FOLLOW UP TRANSABDOMINAL KBTEMKIRThecyqn19/22/2025 9:29 AM EST History of hyperthyroidism Macrosomia of fetus affecting management of mother in first trimester, single or unspecified fetus ([facility]) US OB BPP W NON-OOQMNP6302/13/2025 11:39 AM EST POCT URINALYSIS YERJAXNJWltnxdd58/18/2025 9:22 AM EST 31 weeks gestation of ([facility]) [facility] UA (CLEAN/CATCH) PRESCRIPTION BENEFIT SPECIALIST/MICRO IF IND.Opulbmm8602/05/2025 11:15 AM EST T4, WKKILwgeogo21/04/2025 1:07 PM EST Hypothyroidism, unspecified CXBMkiqvzv36/04/2025 11:17 AM EST Hypothyroidism, unspecified T3, XJEXZolvciw89/04/2025 11:17 AM EST Hypothyroidism, unspecified GLUCOSE TOLERANCE 3 ZYXIIuairsv47/04/2025 9:59 AM EST POCT URINALYSIS ZSWWEGOILwdmcuk86/02/2025 11:47 AM EST 29 weeks gestation of ([facility]) POCT URINALYSIS VGVYMVITSjkaawo84/13/2025 11:23 AM EST Second trimester ([facility]) US OB 14+ WEEKS ANATOMY SCAN12/13/2024 10:23 AM EDT SAKXZZDKWAScbolep85/16/2025 10:08 AM EDT Colposcopy needed after cervical smear Second trimester ([facility]) 22 weeks gestation of ([facility]) POCT URINALYSIS SVUNOTRKUgkilau26/16/2025 9:30 AM EDT 22 weeks gestation of ([facility]) from Last 3 Months Results * US OB BPP W NON-STRESS (02/19/2025 11:27 AM EST) Only the most recent of2 resultswithin the time period is included. Anatomical RegionLateralityModalityOtherSpecimen (Source)Anatomical Location / LateralityCollection Method / VolumeCollection TimeReceived Time02/19/2025 11:27 AM EST Narrative 02/19/2025 11:29 AM EST [facility] ?[address] ? [place] [id number] ? Ultrasound Report ? Signed ? Patient: YSASI,BRITTNEE S ?MR#: [id number] ?? : 1995 ?Acct:[id number] ?? Age/Sex: 29 / F ?ADM Date: 02/19/25 ?? Loc: US ? Attending Dr: Ivy Baker D.O. ? Ordering Physician: Ivy Baker D.O. ?? Date of Service: 02/19/25 ?? Procedure(s): US OB BPP w non-stress ?? Accession Number(s): [id number] ? cc: Ivy Baker D.O.; Physician,Non-Staff MKalani ? [facility] ? [address] ? [place] [address] ? Patient Name: ?? BRITTNEE SMITH ? MRN: [facility]:[id number] ? date: 1995 ?Sex: F ?? Assigned Patient Location: [facility] ?? Current Patient Location: ? Accession/Order Number: [id number] ?? Exam Date: 02/19/2025 ??10:20 ?Report Date: 02/19/2025 ??11:27 ? At the request of: ?? IVY ??SAMUEL ??DO ? Procedure: ??US OB BPP w non-stress ? BIOPHYSICAL PROFILE: ? CLINICAL INFORMATION: MACROSOMIA O 36.61X0 ? COMPARISON: 02/13/2025 ? There is a single live intrauterine gestation in cephalic presentation. ??The ?? reported gestational age is 32 weeks 5 days. ??The heart rate egnybkri574 ?? beats per minute. ? FINDINGS: ? [...] Dictation Location: RADIO-PC-30 ? Electronically authenticated by: [id number] ??Y ?? Date: 02/19/2025 ??11:27 ? Dictated By: ?Alyson,Brandy M.D. ? Signed By: ?02/19/25 1129 ? DD/ 1127 ? TD/TT: ? Slot Machine Department Floorperson: Procedure Note Radiology, Radiologist, MD - 02/19/2025 [place] [address] Ultrasound Report Signed Patient: BRITTNEE SMITH [facility]#: [id number] : 1995Acct:[id number] Age/Sex: 29 / FADM Date: 02/19/25 Loc: US Attending Dr: Ivy Baker D.O. Ordering Physician: Ivy Baker D.O. Date of Service: 02/19/25 Procedure(s): US OB BPP w non-stress Accession Number(s): [id number] cc: Ivy Baker D.O.; Physician,Non-Staff [place] [address] Patient Name: BRITTNEE SMITH MRN: [facility]:[id number] date: 1995 Sex: F Assigned Patient Location: [facility] Current Patient Location: Accession/Order Number: [id number] Exam Date: 02/19/2025 10:20 Report Date: 02/19/2025 11:27 At the request of: IVY BAKER DO Procedure: US OB BPP w non-stress BIOPHYSICAL PROFILE: CLINICAL INFORMATION: MACROSOMIA O 36.61X0 COMPARISON: 02/13/2025 There is a single live intrauterine gestation in cephalic presentation.The reported gestational age is 32 weeks 5 days. The heart udcibzqzarmz636 beats per minute. FINDINGS: TONE: 1 or [...] Shields M.D. 02/19/2025 11:27 AM Dictation Location: [place] [address] Electronically authenticated by: [id number] Y Date: 1:27 Dictated By: Brandy Shields M.D. Signed By:02/19/25 1129 DD/ 1127 TD/TT: Slot Machine Department Floorperson: Authorizing ProviderResult TypeResult StatusCorey Samuel DOCLINISYNC IMAGINGFinal Result * US OB follow up transabdominal approach [...] BY: Shlomo Luciano MD Authorizing ProviderResult TypeResult StatusIvy MOROCHO OB US PROCEDURES Final Result * POCT urinalysis dipstick manually [...] Location / LateralityCollection Method / VolumeCollection TimeReceived LheqPnjwp17/18/2025 9:22 AM EST Narrative Authorizing ProviderResult TypeResult Status[facility] TEST ENTER/EDIT ORDERABLESFinal Result * (ABNORMAL) [facility] UA (CLEAN/CATCH) PRESCRIPTION BENEFIT SPECIALIST/MICRO IF IND. (02/05/2025 11:15 AM EST) ComponentValueRef [...] 02/05/2025 11:41 AM EST Authorizing ProviderResult TypeResult StatusCorejona Baker DOCLINISYNCFinal Result Performing OrganizationAddressCity/State/ZIP CodePhone Number [facility] * T4, free (01/30/2025 1:07 PM EST)Specimen (Source)Anatomical Location / LateralityCollection Method / VolumeCollection TimeReceived TimeBloodVenous blood specimen / Unknown Narrative Authorizing ProviderResult TypeResult StatusAllen VALIENTE BLOOD ORDERABLESFinal ResultPerforming OrganizationAddressCity/State/ZIP CodePhone Number [facility] * T3, free (01/30/2025 11:17 AM EST)Specimen (Source)Anatomical Location / LateralityCollection Method / VolumeCollection TimeReceived TimeBloodVenous blood specimen / Unknown Narrative Authorizing ProviderResult TypeResult StatusAllen AVLIENTE BLOOD ORDERABLESFinal ResultPerforming OrganizationAddressCity/State/ZIP CodePhone Number [facility] * TSH (01/30/2025 11:17 AM EST)Specimen (Source)Anatomical Location / Laterality Collection Method / VolumeCollection TimeReceived TimeBloodVenous blood specimen / Unknown Narrative Authorizing ProviderResult TypeResult StatusAllen VALIENTE BLOOD ORDERABLESFinal ResultPerforming OrganizationAddressCity/State/ZIP CodePhone Number [facility] [...] 01/30/2025 1:19 PM EST Authorizing ProviderResult TypeResult StatusIvy LOPEZ BLOOD ORDERABLES Final ResultPerforming OrganizationAddressCity/State/ZIP CodePhone Number [facility] * US OB 14+ weeks anatomy scan (12/13/2024 10:23 AM EDT)Anatomical Region LateralityModalityBodyUltrasoundSpecimen (Source)Anatomical Location / LateralityCollection Method / VolumeCollection TimeReceived Time12/13/2024 10:23 AM EDT Narrative 12/13/2024 10:23 AM EDT THIS EXAM WAS PERFORMED AT [facility] NAME: ??LUIS BEAULIEU : 1995 SEX: F Accession Number: [id number] ORDERING PHYSICIAN: FUAD PLASCENCIA REFERRING PHYSICIAN: IVY BAKER Coding Procedures ? 52427: Ultrasound, uterus, real time with image documentation, and maternal evaluation ? plus detailed anatomic examination, transabdominal approach;single or first gestation ? 98178: Ultrasound, uterus, real time with image documentation, [...] view: limited by maternal body habitus. Medical Workers' Compensation Claims Supervisor Workers' Compensation Claims Supervisor declined Wolfe . Number of fetuses: 1 [...] (oz) ? 3 oz EFW by: ?Hadlock (HTV-TG-ZG-FL) Extended Tibia ??36.4 mm 23w 5d 72% Jocelyn Barratte Operator ? 4.1 mm CM ? 6.0 [...] Heart / Thorax RVOT view. LVOT view. 4-rtbrqb-aaebvdd view. Ductal arch view. Interventricular septum. Great [...] - 12/13/2024 THIS EXAM WAS PERFORMED AT [facility] NAME: LUIS BEAULIEU : 1995 SEX: F Accession Number: [id number] ORDERING PHYSICIAN: FUAD PLASCENCIA REFERRING PHYSICIAN: IVY BAKER Coding Procedures 09581: Ultrasound, uterus, real time with image documentation, and maternal evaluation plus detailed anatomic examination, transabdominalapproach;single or first gestation 56442: Ultrasound, uterus, real time with imagedocumentation, transvaginal [...] Suboptimalview: limited by maternal body habitus. Medical Workers' Compensation Claims Supervisor Workers' Compensation Claims Supervisor declined Wolfe . Number of fetuses: 1 [...] EFW (oz) 3 oz EFW by: Hadlock (MQR-GD-HI-FL) Extended Tibia 36.4 mm 23w 5d 72% Jocelyn Barratte Operator 4.1 mm CM 6.0 mm 60% [...] Heart / Thorax RVOT view. LVOT view. 7-vvchnt-nybsimg view. Ductal archview. Interventricular septum. Great vessels. [...] MVP measures 4.7 cm. Recommendations Please see [facility] documentation from today. Subsequent follow up or other follow up as clinically determined byprimary OB provider unless otherwise specified by [facility]. Results forwarded to ordering provider so they [...] no ?? Authorizing ProviderResult TypeResult StatusCorey Samuel [facility] ORDERABLESFinal Result from Last 3 Months Insurance
--- OUTSIDE RECORDS SUMMARY | 2025-02-23 10:11 | XMS_ITS | Encounter Summary ---
Author Organization [facility] Address [address] [place] [address] Care Team Providers Care Hospital Nurse Liaison Name Role Phone Unavailable Primary Care Provider Unavailabl e Encounter Details DateTypeDepartmentCare Team (Latest Contact Info)Edijxmncuwc03/18/2025Patient Outreach [facility] [address] [place] [address] Karla Campa LPN [address] [place] [address] Social History Tobacco UseTypesPacks/DayYears UsedDateSmoking Tobacco: NeverSmokeless Tobacco: NeverAlcohol UseStandard Drinks/WeekCommentsYes2 (1 standard drink = 0.6 oz pure alcohol)Alcohol: 1 or 2 drinks, 2 to 4 times a month; Caffeine: 1 can /weekPHQ-2 AnswerDate RecordedPatient Health Questionnaire-2 Umjkb919 Estimated Date of RumlnxqnJntdxbbvFvk55/13/2026ased on UltrasoundSex and Gender InformationValueDate RecordedSex Assigned at VzjypDmfpeb75/30/2023 8:23 AM EDT Legal JhjZsxzxy81/15/2023 7:11 PM EDTGender RhhtejyjTmdtsl12/30/2023 8:23 AM EDT Sexual JlbfqyhwaspGitzauyv57/30/2023 8:23 AM EDTdocumented as of this encounter Progress Notes * Karla Campa LPN - 02/13/2025 11:41 AM EST Monthly outreach. Call to pt X2, LVM. MyChart communication sent. [facility] closed due to unable to reachpt. documented in this encounter Plan of Treatment DateTypeDepartmentCare Team (Latest Contact Info)Oyazywnqhsb14/31/2025 10:40 AM ESTRoutine [facility] [address] [place] [address] Tess Lopez, KALIE [address] [place] [address] 07/04/2025 10:10 AM EDTOffice Visit [facility] [address] [place] [address] Allen Carr MD [address] [place] [address] documented as of this encounter Visit Diagnoses Not on filedocumented in this encounter
--- OUTSIDE RECORDS SUMMARY | 2025-02-23 10:11 | XMS_ITS | Data Portability ---
Author Organization [place] [facility] Address [address] [place] [address] Care Team Providers Care Sawmill Hand Name Role Phone CAROLCHEYENNEJarekROSS Primary Care Provider [...] and has been discussed with the patient. [email or web address] Not available 02/15/2018 15:13:09 Plan of Treatment Reminders Order DateSubmit DateProviderLast Modified ByOrganization DetailsLast Modified TimeDetailsAppointmentsNone recorded.LabNone recorded.ReferralNone recorded. ProceduresNone recorded.SurgeriesNone recorded.ImagingNone recorded.Medication OrdersNone recorded. Patient TargetsNo targets recorded. Patient InstructionsNo instructions recorded. Reason for Referral None Reported. Results Created Date Observation Date Name Description Value Unit Range Abnormal Flag Note LastModifiedBy Organization Detail LastModifiedTime 03/12/2018 US, echocardiogramNo observation recorded.xsrmwq3Bmm Qwzuowjeb77/14/2019 13:49:52 Result Notes None recorded. Medical Equipment None Reported. Allergies Allergen ID Allergen Name Allergen Category Reaction Reaction Severity Criticality Documentation Date Start Date Code Code System Note Provider Name and Address Organization Details Recorded Time 813 Substance with sulfo namide structure and antibacterial mechanism of action (substance) medication Not available Not available Not hthhucsqa35/15/1417061148981MUHIGATmuagfw Vasiliy ascencio [place] [facility] Cjdrtcfqfcc30/15/2019 15:19:33 Medications Name Sig Start Date Stop [...] Address Organization Details Last Updated DateTime 9 42552.4 g 36 kg/m2 162.56 cm 16 /min 94 /min 98 % 112/60 mm[Hg] [facility] 9 15:19:18 Social History Question Answer Notes LastModified by Organization D etails LastModified Time Tobacco Smoking Status Never Smoker [place], [place] - [facility] Ngjgcwgnhuj62/15/2019 15:21:12Marital StatusSingle veyzvqwd60Pxrsiusfaxq not /15/2019What Was The Date Of Your [...] Note 77 Mini Gipson MD Main Office [address] [place] [address] 01/30/2018 10:52:38 01/30/2018 15:49:20 Electrocardiogram abnormal 272358589 R94.31 2002JAjit Giraldoin Office [address] [facility] [address] [place] [address] 03/13/2018 15:10:10003/13/2018 15:47:46Systolic lqybgx99208441V80.1 Echo 01/30/18 - EF of 65-70%, trace MVR, trace QZOZrmxwjyqkzesnh02544267L77.9 Thyroid function and medication management per PCP/endocrinology.Palpitations 40775934W26.2 Event monitor shows episodes of tachycardia, however [...] Guarantor Name 07/31/2018 1 [employer] (PP[employer]) [id number] Munir Mathur [id number] [facility] 12/05/2022 2 [facility] (MEDICAID REPLACEMENT - HMO) [id number] [facility] [id number] [facility] - [employer] (PPO)Munir [id number] Ysasi Notes Date Note Type Note Provider Name and Address Orga nization Details Recorded Time 01/30/2018 text/html Patient presents today with a history of abnormal EKG results. Patient is . Associated Symptoms: chest pain. dizziness. fainting. palpitations. shortness of breath. weakness. fatigue.Mini Gipson MD [address], [place], [address], [facility] Xiuvbsvdjlw36/26/2018 14:34:text/html Patient is a 23 year old female with a past medical history of palpitations and hypothyroid who presents to the office for test results. Denies any chest pain, palpitations, shortness of breath, edema, n/v/d, fever/chills, headaches, dizziness, fatigue or bowel/urinary complaints.SRIKANTH Cook - [facility] Havevuoguav26/15/2019 15:49:42 OBGyn Episode No OBEpisode recorded.
--- OUTSIDE RECORDS SUMMARY | 2025-02-23 10:11 | XMS_ITS | Clinical Summary ---
Author Organization [employer] tem Address [id number] [address] 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 aolubo5412/13/2024Estimated Date of DeliveryCommentsYes 6Based on Ultrasound Encounters DateTypeDepartmentCare UpekOlhhspfgxmc33/25/2025 2:00 PM EST - 01/21/2025 11:59 PM ESTHospital Encounter [facility] - [facility]ound [address] [place] [address] Hypothyroidism affecting in second trimester Discharge Disposition: Home01/21/20257134Cgvkxu29/17/2025 8:45 AM EDTOffice Visit Maternal- Medicine at [facility] [address] [place] [address] Kenji Plascencia MD 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) 12/13/2024 7:30 AM EDT - 12/13/2024 11:59 PM EDTHospital Encounter [facility] Imaging [address] [place] [address] Screening, , for anatomic survey Discharge Disposition: Home12/13/2024Orders Only Maternal- Medicine at [facility] [address] [place] [address] Eun Mcgrath RN Hypothyroidism affecting in second trimester (Primary Dx)12/13/2024 Kfdnfb8112/12/2024Travelfrom Last 3 Months Family History Medical HistoryRelationNameCommentsHypothyroidismFatherDiabetesMaternal GrandfatherLiver diseaseMaternal GrandfatherDiabetesPaternal GrandfatherLymphoma Paternal GrandfatherRelationNameStatusCommentsFatherAliveMaternal Grandfather DeceasedMotherAlivePaternal Grandfather Social History Tobacco UseTypesPacks/DayYears UsedDateSmoking Tobacco: NeverSmokeless Tobacco: Never Tobacco Cessation:Counseling Given: Not Answered Alcohol UseStandard Drinks/WeekCommentsNot Currently0 (1 standard drink = 0.6 oz pure alcohol)ChildcareAnswerDate BefpkjmmEzlacjszdWpqkcus86/12/2019Employment AnswerDate WnugvtxeWfctgscrxjQimgwwv35/12/2019Hunger ScreeningAnswerDate RecordedWithin the past 12 months we worried whether our food would run out before we got money to buy more.Never True12/13/2024Within the past 12 months the food we bought just didn't last and we didn't have money to get more.Never True12/13/2024Estimated Date of WhyjnjjzLmurybotIav74/13/2026ased on UltrasoundSex and Gender InformationValueDate RecordedSex Assigned at BirthNot on fileLegal LnrLrdgvt94/06/2015 11:49 AM EDTGender IdentityNot on fileSexual OrientationNot on file Last Filed Vital Signs Vital SignReadingTime TakenCommentsBlood Gkcujaiz618/7312/13/2024 8:03 AM EDT Xquge268812/13/2024 8:03 AM BQCXxwawmlxrpc89 ??C (98.6 ??F)10/23/2024 1:18 PM EDT Respiratory Zamb070610/23/2024 2:45 PM EDTOxygen Dzljfdqsqg42%10/23/2024 2:45 PM EDTInhaled Oxygen Concentration--Wznnns744.8 kg (235 lb 6.4 oz)12/13/2024 8:03 AM ZKKIwgqqp422.6 cm (5' 4.02 )12/13/2024 8:03 AM EDTBody Mass Index40.39 12/13/2024 8:03 AM EDT Plan of Treatment Health MaintenanceDue DateLast DoneCommentsDepression Jcfqnvcbe19/01/2006dult BMI Follow Up Plan2011DTaP,Tdap and Td Vaccines (2 - Td or Tdap)08/05/2015 08/04/2005Influenza Gfcdsmz2510/28/2024RSV ( or age 60+ yrs) (1 - Risk 1-dose series)02/14/2025dult BMI Cwdwxeixf90Tobacco Yjuwuswzb17Pap Smear Medical Devices Not on file Procedures Procedure NamePriorityDate/TimeAssociated DiagnosisCommentsUS MFM OB FOLLOW-UP, 1 EFWHXDxzukhe84/25/2025 3:08 PM EST Hypothyroidism affecting in second trimester US MFM COMPREHENSIVE ANATOMIC FNMJHOMrtyxhu52/17/2025 8:50 AM EDT Screening, , for anatomic [...] BEAULIEU : 1995 SEX: F Accession Number: [id number] ORDERING PHYSICIAN: KENJI PLASCENCIA REFERRING PHYSICIAN: IVY RUVALCABA ADDENDUM updated recommendations Coding Procedures ? 43500: Ultrasound, uterus, real time with image documentation, [...] (oz) ? 6 oz EFW by: ?Hadlock (SRQ-ZU-JQ-FL) Extended Tibia ??51.5 mm 30w 5d 96% [employer] Electronic Warfare Operator ? 2.8 mm Nasal bone ? 7.7 [...] Thorax RVOT view. LVOT view. 3-vessel view. 1-fbxsvh-ngantfg view. Interventricular septum.Great vessels. ? Cardiac position. [...] with clinical findings and diabetesscreen. Please see [facility] recommendations from prior clinical and/or ultrasound [...] BEAULIEU : 1995 SEX: F Accession Number: [id number] ORDERING PHYSICIAN: KENJI PLASCENCIA REFERRING PHYSICIAN: IVY RUVALCABA ADDENDUM updated recommendations Coding Procedures 13576: Ultrasound, uterus, real time with image documentation, [...] EFW (oz) 6 oz EFW by: Hadlock (DPB-HE-PI-FL) Extended Tibia 51.5 mm 30w 5d 96% [employer] Warfare Operator 2.8 mm Nasal bone 7.7 mm 5% [...] Thorax RVOT view. LVOT view. 3-vessel view. 2-ylnunc-jpyiwab view. Interventricular septum. Great vessels. Cardiac position. [...] MemberRelationshipSpecialtyStart DateEnd Date No Pcp, [place] [address] PCP - GeneralFamily Medicine10/23/24
--- OUTSIDE RECORDS SUMMARY | 2025-02-23 10:11 | XMS_ITS | Patient Health Record ---
Author Organization [facility] vices Address [address] [place], [place] [address] Care Team Providers Care Resident Hall Director Name Role Phone Lance Santos Unavailable [phone] Allergies Allergen (clinical drug ingredient) Drug/Non Drug Allergy documented on EMR Reaction Allergy Type Onset Date Status PediazoleUnknownDrug Cbbirmd2307/19/2011ctiveSubstance with sulfonamide structure and antibacterial mechanism of action (substance)Sulfa AntibioticsUnknownDrug Iardplf0407/19/2011ctive Reason For Referral No Information Immunizations Vaccine Route Administration Date Status Comme nts *Tdap (Adacel)-VFC IM Intramuscular 08/04/2005 Administered Status:Complete ,Reason:Given or N/A , leatha (08/04/2005) 20 minute check done no reaction Emergency Room Nurse: [employer] Parent/Guardian: present Social History Sex [...] Status Risk Notes Problem 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, 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 confirmed ProblemAcute streptococcal pharyngitis (0257600684)Acute streptococcal pharyngitis (J02.0)Activeconfirmed Comment:rapid strep positive 10 days abx F/U 2 weeks EMPHASIZED THE NEED TO COMPLETE ALL 10 DAYS,Description:Streptococcal sore throat ProblemAsthma (822705062)Asthma (J45.909)02/18/2000ActiveconfirmedProblemHealth supervision of healthy or child receiving care (V20.1) (V20.1)Active confirmedProblemAllergic rhinitis (88216619)Allergic rhinitis (J30.9)02/18/2000 ActiveconfirmedProblemHistory and physical examination, administrative (59992192)General medical examination for administrative purposes (V70.3) (V70.3)08/04/2005ctiveconfirmedProblemDermatitis, atopic (691.) (691)08/04/2005 ActiveconfirmedProblemAcute pharyngitis (046706079)Acute pharyngitis (J02.9) 09/10/2009ctiveconfirmedProblemAcute bronchitis (disorder) (64793799) Bronchitis, acute (466.0) (466.0)ActiveconfirmedProblemWell child visit (202985602)Routine or child health check (V20.2) (V20.2)08/30/2007ctive confirmedProblemAcute sinusitis (86517599)Acute infection of nasal sinus (J01.90)Problem resolvedconfirmedComment:advised to take her zyrtec 10mg po daily- states that she has zyrtec at home,Description:Acute sinusitis Plan Of Treatment No Information Insurance Providers Payer Name Payer Address Payer Phone Subscriber Number Group Number Insured Name Patient Relationship to Insured Coverage Start Date Coverage End Date [employer] [facility] [address] [address] [place] [address] [id number] Lars Mathur - patient is the [id number] 2022Medicaid CF after [address] [place], [place] [id number], [employer] - patient is the insured 2022 Medical (General) History Medical History History ICD Code 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
--- OUTSIDE RECORDS SUMMARY | 2025-02-23 10:11 | XMS_ITS | Encounter Summary ---
Author Organization [facility] Address [address] [place] [place] [address] Care Team Providers Care Manager Environmental Health And Safety Name Role Phone Unavailable Primary Care Provider Unavailabl e Encounter Details DateTypeDepartmentCare Team (Latest Contact Info)Axjjyavgtws55/18/2025amboo flowsheet SUNITA ANTHONY [address] [place] [address] Karla Matthews PA [address] [place], [facility]11 Social History Tobacco UseTypesPacks/DayYears UsedDateSmoking Tobacco: NeverSmokeless Tobacco: NeverAlcohol UseStandard Drinks/WeekCommentsYes2 (1 standard drink = 0.6 oz pure alcohol)Alcohol: 1 or 2 drinks, 2 to 4 times a month; Caffeine: 1 can /weekPHQ-2 AnswerDate RecordedPatient Health Questionnaire-2 Gtorm334 Estimated Date of UuzzjvheXuprnnflNxw10/13/2026Based on UltrasoundSex and Gender InformationValueDate RecordedSex Assigned at JeyisFubpbd12/30/2023 8:23 AM EDT Legal SdqSkngol93/15/2023 7:11 PM EDTGender JypvxvlxHwnbte47/30/2023 8:23 AM EDT Sexual KnjvfpipfirFjxfljss10/30/2023 8:23 AM EDTdocumented as of this encounter Plan of Treatment DateTypeDepartmentCare Team (Latest Contact Info)Gtgkituwigc66/31/2025 10:40 AM ESTRoutine [facility] ANTHONY [address] [address] Tess Lopez, KALIE [address] [place] [address] [place] [address] 07/04/2025 10:10 AM EDTOffice Visit [facility] [address] [place] [address] Allen Carr MD [address] [place] [address] documented as of this encounter Visit Diagnoses Not on filedocumented in this encounter
[2025-02-23 10:13] VITALS: BP 115/70; PULSE 79
== END 2025-02-23 10:48 | disposition home or self-care (01) ==
LOC: FBCO 10:08 → FBC 10:10
PROVIDERS: Visit Provider Obstetrics & Gynecology
DX: O36.63X0 Maternal care for excessive fetal growth, third trimester, not applicable or unspecified (principal)
CPT/HCPCS: 59025

== ENCOUNTER 2025-02-25 15:00 | Outpatient (OUT) | payer OTHER, SELFPAY ==
--- OUTSIDE RECORDS SUMMARY | 2025-02-13 09:00 | XMS_ITS | Encounter Summary ---
Author Organization [facility] Address [address] [place] [address] Care Team Providers Care Diesel Locomotive Engineer Name Role Phone Unavailable Primary Care Provider Unavailabl e Reason for Visit * ReasonCommentsRoutine Visit Encounter Details DateTypeDepartmentCare Team (Latest Contact Info)Qwgytetzwpo93/18/2025 9:00 AM ESTRoutine [facility] Timothy OBGYJarek [address] [facility] [place] [address] Karla Matthews PA [address] [facility] [address] [place], [facility]11 Third trimester ([facility]); 31 weeks gestation of ([facility]); Hypothyroidism, unspecified type Social History Tobacco UseTypesPacks/DayYears UsedDateSmoking Tobacco: NeverSmokeless Tobacco: NeverAlcohol UseStandard Drinks/WeekCommentsYes2 (1 standard drink = 0.6 oz pure alcohol)Alcohol: 1 or 2 drinks, 2 to 4 times a month; Caffeine: 1 can /weekPHQ-2 AnswerDate RecordedPatient Health Questionnaire-2 Bkhev324 Estimated Date of AjzqtvvkWocnjrxbSou24/13/2026ased on UltrasoundSex and Gender InformationValueDate RecordedSex Assigned at NkxyzIayxja15/30/2023 8:23 AM EDT Legal XdmQxdpof02/15/2023 7:11 PM EDTGender JxmwefrgDsqlzg13/30/2023 8:23 AM EDT Sexual UvvwfkazguaAugsaedw19/30/2023 8:23 AM EDTdocumented as of this encounter Last Filed Vital Signs Vital SignReadingTime TakenCommentsBlood Nslobkmp453/8402/13/2025 9:12 AM EST Pulse--Temperature--Respiratory Rate--Oxygen Saturation--Inhaled Oxygen Concentration--Tmnacs784 kg (244 lb)02/13/2025 9:12 AM ESTHeight--Body Mass [...] 11/16/2017 Unable to comply with treatment 07/26/2022 ([facility]) 11/28/2017 Exposure to STD 05/31/2023 Encounter for weight management 05/31/2023 Dermatitis, atopic 08/04/2005 Allergic rhinitis 02/18/2000 Asthma ([facility]) 02/18/2000 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 Third trimester ([facility]) Z34.93 2. 31 weeks gestation of ([facility]) Z3A.31 POCT urinalysis dipstick manually resulted Assessment/Plan [...] Plan of Treatment DateTypeDepartmentCare Team (Latest Contact Info)Ruqfowoanza21/31/2025 10:40 AM ESTRoutine [facility] [address] [facility] [place] [address] Tess Lopez, KALIE [address] [facility] [place] [address] 07/04/2025 10:10 AM EDTOffice Visit [facility] [address] [place] [phone] Allen Carr MD [address] [place] [address] NameTypePriorityAssociated DiagnosesOrder ScheduleUS biophysical profile w non stress testImagingRoutine Hypothyroidism, unspecified type Expected: 02/13/2025 (Approximate), Expires: 08/14/2025documented as of this encounter Procedures Procedure NamePriorityDate/TimeAssociated DiagnosisCommentsPOCT URINALYSIS JTZDNOVOFadtlpj74/18/2025 9:22 AM EST 31 weeks gestation of ([facility]) documented in this encounter Results * POCT [...] 9:22 AM EST Narrative Authorizing ProviderResult TypeResult StatusP[facility] OF [facility] TEST ENTER/EDIT ORDERABLESFinal Result documented in this encounter Visit Diagnoses Diagnosis Third trimester ([facility]) state, incidental 31 weeks gestation of ([facility]) Hypothyroidism, unspecified type documented in this encounter
--- OUTSIDE RECORDS SUMMARY | 2025-02-17 09:00 | XMS_ITS | Encounter Summary ---
Author Organization [facility] Address [address] [facility] [place] [address] Care Team Providers Care Manager Program Management Name Role Phone Unavailable Primary Care Provider Unavailabl e Encounter Details DateTypeDepartmentCare Team (Latest Contact Info)Gbrwibcgbrr73/22/2025 9:00 AM ESTAncillary Procedure [facility] [address] [place] [address] History of hyperthyroidism; Macrosomia of fetus affecting management of mother in first trimester, single or unspecified fetus ([facility]) Social History Tobacco UseTypesPacks/DayYears UsedDateSmoking Tobacco: NeverSmokeless Tobacco: NeverAlcohol UseStandard Drinks/WeekCommentsYes2 (1 standard drink = 0.6 oz pure alcohol)Alcohol: 1 or 2 drinks, 2 to 4 times a month; Caffeine: 1 can /weekPHQ-2 AnswerDate RecordedPatient Health Questionnaire-2 Nkzaa824 Estimated Date of SfeeqxzgWtjeztpmGua27/13/2026ased on UltrasoundSex and Gender InformationValueDate RecordedSex Assigned at OrklgDlemnq08/30/2023 8:23 AM EDT Legal CalZmttvu46/15/2023 7:11 PM EDTGender ViscajwrOzymic69/30/2023 8:23 AM EDT Sexual ElfjnjktmmcCpzvvhma58/30/2023 8:23 AM EDTdocumented as of this encounter Plan of Treatment DateTypeDepartmentCare Team (Latest Contact Info)Okxudhepbhs57/31/2025 10:40 AM ESTRoutine [facility] [address] [place] [address] Tess Lopez, KALIE [address] [place] [address] [place] [address] 07/04/2025 10:10 AM EDTOffice Visit [facility] [place] [facility] [address] [place] [phone] Allen Carr MD [address] [place] [address] documented as of this encounter Procedures Procedure NamePriorityDate/TimeAssociated DiagnosisCommentsUS OB FOLLOW UP TRANSABDOMINAL JEBUWWNEBsyvffg67/22/2025 9:29 AM EST History of hyperthyroidism Macrosomia of fetus affecting management of mother in first trimester, single or unspecified fetus ([facility]) documented in this encounter Results * US OB follow up transabdominal approach (02/17/2025 9:29 AM EST)Anatomical RegionLateralityModalityBodyUltrasoundSpecimen (Source)Anatomical Location / LateralityCollection Method / VolumeCollection TimeReceived Time02/17/2025 11:59 AM EST Impressions 02/17/2025 12:18 PM EST Single, live intrauterine , current sonographic age of 33 weeks and 6 days, with an estimated date of delivery of April 01, 2025 (prior AGRRETT April 11, 2025). * ??Estimated Weight (g) [...] in first trimester, single or unspecified fetus ([facility]) documented in this encounter
--- OUTSIDE RECORDS SUMMARY | 2025-02-25 15:03 | XMS_ITS | Encounter Summary ---
Author Organization [facility] Address [address] [facility] [place] [address] Care Team Providers Care Division Operations Manager Name Role Phone Unavailable Primary Care Provider Unavailabl e Encounter Details DateTypeDepartmentCare Team (Latest Contact Info)Awfelljisil27/24/2025linisync Result Encounter [facility] External Department Unsolicited Ivy Baker DO [address] [place] [address] Social History Tobacco UseTypesPacks/DayYears UsedDateSmoking Tobacco: NeverSmokeless Tobacco: NeverAlcohol UseStandard Drinks/WeekCommentsYes2 (1 standard drink = 0.6 oz pure alcohol)Alcohol: 1 or 2 drinks, 2 to 4 times a month; Caffeine: 1 can /weekPHQ-2 AnswerDate RecordedPatient Health Questionnaire-2 Eufyk418 Estimated Date of UnbfozssBukosrehQhz68/13/2026Based on UltrasoundSex and Gender InformationValueDate RecordedSex Assigned at VfxtvQjhsam58/30/2023 8:23 AM EDT Legal GvcYdwnyo84/15/2023 7:11 PM EDTGender XtpkzjycPlgcpp98/30/2023 8:23 AM EDT Sexual IkojturmaiqOrvdsuks98/30/2023 8:23 AM EDTdocumented as of this encounter Plan of Treatment DateTypeDepartmentCare Team (Latest Contact Info)Iggpnqdjprn47/31/2025 10:40 AM ESTRoutine [facility] [address] [place] [address] Tess Lopez, CARE GIVER [address] [place] [address] 07/04/2025 10:10 AM EDTOffice Visit [facility] [place] [facility] [address] [place] [address] Allen Carr MD [address] [place] [address] documented as of this encounter Procedures Procedure NamePriorityDate/TimeAssociated DiagnosisCommentsUS OB BPP W NON-VYTZZN2602/19/2025 11:27 AM EST documented in this encounter Results * US OB BPP W NON-STRESS (02/19/2025 11:27 AM EST)Anatomical Region LateralityModalityOtherSpecimen (Source)Anatomical Location / Laterality Collection Method / VolumeCollection TimeReceived Time02/19/2025 11:27 AM EST Narrative 02/19/2025 11:29 AM EST [facility] ?[address] ? [place] [address] ? Ultrasound Report ? Signed ? Patient: YSASI,BRITTNEE S ?MR#: [id number] ?? : 1995 ?Acct:[id number] ?? Age/Sex: 29 / F ?ADM Date: 02/19/25 ?? Loc: US ? Attending Dr: Ivy Baker D.O. ? Ordering Physician: Ivy Baker D.O. ?? Date of Service: 02/19/25 ?? Procedure(s): US OB BPP w non-stress ?? Accession Number(s): [id number] ? cc: Ivy Baker D.O.; Physician,Non-Staff M.D. ? [facility] ? [address] ? [place] [address] ? Patient Name: ?? BRITTNEE S YSASI ? MRN: [facility]:[id number] ? date: 1995 ?Sex: F ?? Assigned Patient Location: [facility] ?? Current Patient Location: ? Accession/Order Number: [id number] ?? Exam Date: 02/19/2025 ??10:20 ?Report Date: 02/19/2025 ??11:27 ? At the request of: ?? IVY ??SAMUEL ??DO ? Procedure: ??US OB BPP w non-stress ? BIOPHYSICAL PROFILE: ? CLINICAL INFORMATION: MACROSOMIA O 36.61X0 ? COMPARISON: 02/13/2025 ? There is a single live intrauterine gestation in cephalic presentation. ??The ?? reported gestational age is 32 weeks 5 days. ??The heart rate cgnnyszl006 ?? beats per minute. ? FINDINGS: ? [...] than 2 cm ? [Y] ? 2/2 ?LBANCHE: 12.7 cm ? Total score: ? 8/8 ? US/US OB BPP w non-stress ?? IMPRESSION: ? NORMAL BIOPHYSICAL PROFILE ? Impression dictated by: Brandy Shields M.D. ??02/19/2025 11:27 AM ? Dictation Location: RADIO-PC-30 ? Electronically authenticated by: [id number] ??Y ?? Date: 02/19/2025 ??11:27 ? Dictated By: ?Brandy Shields M.D. ? Signed By: ?02/19/25 1129 ? DD/ 1127 ? TD/TT: ? Tow Bar Driver: Procedure Note Radiology, Radiologist, - 02/19/2025 [place] [address] Ultrasound Report Signed Patient: BRITTNEE SMITH [facility]#: [id number] : 1995Acct:[id number] Age/Sex: 29 / FADM Date: 02/19/25 Loc: US Attending Dr: Ivy Baker D.O. Ordering Physician: Ivy Baker D.O. Date of Service: 02/19/25 Procedure(s): US OB BPP w non-stress Accession Number(s): [id number] cc: Ivy Baker D.O.; Physician,Non-Staff M.DMelisa The [address] [address] Patient Name: BRITTNEE SMITH MRN: [facility]:[id number] date: 1995 Sex: F Assigned Patient Location: [facility] Current Patient Location: Accession/Order Number: [id number] Exam Date: 02/19/2025 10:20 Report Date: 02/19/2025 11:27 At the request of: IVY BAKER DO Procedure: US OB BPP w non-stress BIOPHYSICAL PROFILE: CLINICAL INFORMATION: MACROSOMIA O 36.61X0 COMPARISON: 02/13/2025 There is a single live intrauterine gestation in cephalic presentation.The reported gestational age is 32 weeks 5 days. The heart qroeesfbssum480 beats per minute. FINDINGS: TONE: 1 or [...] Shields M.D. 02/19/2025 11:27 AM Dictation Location: [place] [address] Electronically authenticated by: [id number] Y Date: 1:27 Dictated By: Brandy Shields M.D. Signed By:02/19/25 1129 DD/ 1127 TD/TT: Tow Bar Driver: Authorizing ProviderResult TypeResult StatusCorey Samuel DOCLINISYNC IMAGINGFinal Result documented in this encounter Visit Diagnoses Not on filedocumented in this encounter
--- OUTSIDE RECORDS SUMMARY | 2025-02-25 15:03 | XMS_ITS | Encounter Summary ---
Author Organization [facility] Address [address] [facility] [place] [address] Care Team Providers Care Auto Service Mechanic Name Role Phone Unavailable Primary Care Provider Unavailabl e Encounter Details DateTypeDepartmentCare Team (Latest Contact Info)Xxzwozbeyry77/18/2025amboo flowsheet SUNITA ANTHONY [address] [facility] [place] [address] Karla Matthews PA [address] [place], [facility]11 Social History Tobacco UseTypesPacks/DayYears UsedDateSmoking Tobacco: NeverSmokeless Tobacco: NeverAlcohol UseStandard Drinks/WeekCommentsYes2 (1 standard drink = 0.6 oz pure alcohol)Alcohol: 1 or 2 drinks, 2 to 4 times a month; Caffeine: 1 can /weekPHQ-2 AnswerDate RecordedPatient Health Questionnaire-2 Shuod106 Estimated Date of CohkwgkiGjtgsphgWxs04/13/2026Based on UltrasoundSex and Gender InformationValueDate RecordedSex Assigned at TtvwcMjmwrr72/30/2023 8:23 AM EDT Legal LuqUgzhdv38/15/2023 7:11 PM EDTGender NthcbetdMnnnjp87/30/2023 8:23 AM EDT Sexual KpqaramaaxvIriunmox25/30/2023 8:23 AM EDTdocumented as of this encounter Plan of Treatment DateTypeDepartmentCare Team (Latest Contact Info)Mbrrvyezqfp21/31/2025 10:40 AM ESTRoutine [facility] ANTHONY [address] [facility] [place] [address] Tess Lopez, KALIE [address] [place] [address] [place] [address] 07/04/2025 10:10 AM EDTOffice Visit [facility] [address] [place] [address] Allen Carr MD [address] [place] [address] documented as of this encounter Visit Diagnoses Not on filedocumented in this encounter
--- OUTSIDE RECORDS SUMMARY | 2025-02-25 15:03 | XMS_ITS | Encounter Summary ---
Author Organization [facility] Address [address] [place] [address] Care Team Providers Care Manager Of Global Name Role Phone Unavailable Primary Care Provider Unavailabl e Encounter Details DateTypeDepartmentCare Team (Latest Contact Info)Wqwbwxwpuyg77/18/2025Patient Outreach [facility] [address] [place] [address] Karla Campa LPN [address] [place] [address] Social History Tobacco UseTypesPacks/DayYears UsedDateSmoking Tobacco: NeverSmokeless Tobacco: NeverAlcohol UseStandard Drinks/WeekCommentsYes2 (1 standard drink = 0.6 oz pure alcohol)Alcohol: 1 or 2 drinks, 2 to 4 times a month; Caffeine: 1 can /weekPHQ-2 AnswerDate RecordedPatient Health Questionnaire-2 Zmgpp808 Estimated Date of OnzfwrvsTorscmezDby94/13/2026ased on UltrasoundSex and Gender InformationValueDate RecordedSex Assigned at XwtyyCqkgci81/30/2023 8:23 AM EDT Legal WgdQcijxx52/15/2023 7:11 PM EDTGender VnsutzrjFfnbfq72/30/2023 8:23 AM EDT Sexual ZxxprgnhxcdQgxxlmyl55/30/2023 8:23 AM EDTdocumented as of this encounter Progress Notes * Karla Campa LPN - 02/13/2025 11:41 AM EST Monthly outreach. Call to pt X2, LVM. MyChart communication sent. [facility] closed due to unable to reachpt. documented in this encounter Plan of Treatment DateTypeDepartmentCare Team (Latest Contact Info)Abscuylvmmq55/31/2025 10:40 AM ESTRoutine [facility] [address] [facility] [place] [address] Tess Lopez, KALIE [address] [facility] [place] [address] 07/04/2025 10:10 AM EDTOffice Visit [facility] [address] [place] [address] Allen Carr MD [address] [place] [address] documented as of this encounter Visit Diagnoses Not on filedocumented in this encounter
--- OUTSIDE RECORDS SUMMARY | 2025-02-25 15:03 | XMS_ITS | Clinical Summary ---
Author Organization [facility] Address [address] [place] [address] Care Team Providers Care Shear Operator Automatic Name Role Phone Unavailable Primary Care Provider Unavailabl e Allergies Active AllergyReactionsCriticalityNoted DateCommentsOtherRash,XbdfeRmo01/24/2023 PEDIAZOLE Sulfa AntibioticsOther,ExxeZdqelv52/22/2012 Other Reaction(s): Unknown UtspydtnqtbfpfhmAwneKkz50/22/2023 Medications MedicationSigDispense QuantityRefillsLast FilledStart DateEnd DateStatus fluticasone (Flonase) 50 MCG/ACT nasal spray Administer 1 spray into each nostril Daily Shake gently. Before first use, prime pump. After use, clean tip and replace cap.Active Vit-Fe Fumarate-FA ( Vitamins) 28-0.8 MG tablet Indications:Positive urine test ([facility])Take 1 tablet by mouth Daily 30 tablet 306/30/128816/306Active bisacodyl (Dulcolax) 10 MG suppository Indications:Constipation, unspecified constipation typeUNWRAP AND INSERT 1 SUPPOSITORY RECTALLY DAILY FOR 10 DAYS 10 suppository 5Active levothyroxine (Synthroid) 25 MCG tablet Indications:History of hyperthyroidismTake 1 tablet (25 mcg) by mouth in the morning. Take before meals. 30 tablet 11011/08/866156/6Active Synthroid 300 MCG tablet Indications:Alfredo's disease,Thyroid disease during , first trimester (HCC)Take 1 tablet (300 mcg) by mouth Daily 90 tablet 109/15/508505/6Active Additional Information Patient not taking.Reported on 02/07/2025 [...] meals. 360 tablet Discontinued(Reorder) Lancets Ultra Thin [facility] Indications:Gestational diabetes mellitus (GDM), antepartum, gestational diabetes [...] for atotal of 4times daily. 150 strip 311/13/06088604/11/2024Expired Additional Information Patient taking differently:1 strip In Vitro Daily,(No times of day reported), Use in the morning prior to breakfast, 1 hour after each meal for a total of 4times daily., Reported on 02/07/2025 Active Problems ProblemNoted DateDiagnosed DateAcute ewyxdxkwpq80/17/2025Acute streptococcal zmvyrqcrbrs17/17/2025Exposure to STD05/31/2023Encounter for weight management 8532Tyxgop42/30/2023luster headache zzqojohq95/30/2023ongenital hypothyroidism without urwmie5507/26/2022Missed myregb1807/26/2022Unable to comply with /30/2023Obesity affecting , antepartum ([facility]) 11/13/2018Pregnancy ([facility])11/28/20172535Gesbwevymhxchyl53/02/2018Obesity (BMI 35.0-39.9 without comorbidity)11/16/20170060Tagqpzzuptd95/01/2017Acute pharyngitis 09/10/2009Chondromalacia of mmkoiaa6805/27/2009Encounter for childhood immunizations appropriate for age0708/30/2007Dermatitis, xbaowk5108/04/2005llergic szczycnw25/22/7344Hrsjom74/22/3101Tzvkujdpzmc29/01/1994Estimated Date of EghtuavzXsmcnebqEgg47/13/2026ased on Ultrasound Resolved Problems ProblemNoted DateDiagnosed DateResolved DatePregnancy-induced hypertension ([facility])nemia of ([facility]) Encounters DateTypeDepartmentCare BqfgNhmdcpbrmgi25/24/2025linisync Result Encounter [facility] External Department Unsolicited Ivy Baker DO 02/17/2025 9:00 AM ESTAncillary Procedure [facility] [address] [place] [address] History of hyperthyroidism; Macrosomia of fetus affecting management of mother in first trimester, single or unspecified fetus ([facility])02/13/2025 9:00 AM ESTRoutine [facility] [address] [place] [address] Karla Matthews PA Third trimester ([facility]); 31 weeks gestation of ([facility]); Hypothyroidism, unspecified type02/13/2025linisync Result Encounter [facility]OMS External Department Unsolicited Ivy Baker, DO 02/13/2025Patient Outreach [facility] [address] [place] [address] Karla Campa LPN 02/13/2025amboo flowsheet [facility] [address] [place] [address] Karla Matthews PA 02/10/2025bstract [facility] [address] [place] [address] Ivy Baker, DO 02/07/2025 10:20 AM ESTOffice Visit [facility] [place] [facility] [address] [place] [address] Allen Carr MD Alfredo's disease (Primary Dx); Hypothyroidism, maternal, antepartum, third trimester ([facility]); Vitamin D deficiency; Encounter for dietary consultation; Class 3 severe obesity due to excess calories without serious comorbidity with body mass index (BMI) of 40.0 to 44.9 in adult ([facility])02/07/2025amboo flowsheet [facility] [place] [facility] [address] [place] [address] Allen Carr MD 5Clinisync Result Encounter [facility]OMS External Department Unsolicited Ivy Baker, DO 01/30/2025linisync Result Encounter NOMS External Department Unsolicited Ivy Baker, DO 01/28/2025 11:30 AM ESTRoutine [facility] [address] [place] [address] Ivy Baker, DO Third trimester ([facility]); 29 weeks gestation of ([facility]); Elevated glucose tolerance test; History of hyperthyroidism; Macrosomia of fetus affecting management of mother in first trimester, single or unspecified fetus ([facility])01/28/2025amboo flowsheet [facility] [place] [address] Ivy Baker, DO 01/22/2025bstract [facility] [place] [address] Ivy Baker, DO 01/15/2025Patient Outreach [facility] [place] [address] [place] [address] Karla Campa LPN 01/09/2025 10:50 AM ESTRoutine [facility] [place] [facility]z [address] [place] [address] Karla Matthews, PA Second trimester ([facility]); 26 weeks gestation of ([facility]); Gestational diabetes mellitus (GDM), antepartum, gestational diabetes method of control unspecified([facility]); Elevated glucose tolerance test01/09/2025amb flowsheet [facility]FREDN Benigno [address] [place] [address] Karla Matthews PA 12/13/2024bstract [facility] Pelaez [address] [place] [address] Ivy Baker, DO 12/13/2024bstract [facility] Pelaez [address] [place] [address] Ivy Baker, DO 12/13/2024External Result Encounter [facility] [place] [facility] [address] Ivy Baker, DO 12/13/2024Patient Outreach [facility] [address] [place] [address] Karla Campa LPN 12/12/2024 9:30 AM EDTProcedure Visit [facility] [address] [place] [address] [place] [address] Ivy Baker, Colposcopy needed after cervical smear; Second trimester ([facility]); 22 weeks gestation of ([facility])from Last 3 Months Immunizations ImmunizationAdministration DatesNext JehEmjl3208/04/2005 Family History Medical HistoryRelationNameCommentsHypothyroidismFatherDiabetesMaternal GrandfatherGrandpaDiabetesOtherpaternal auntsThyroid diseaseOtherpaternal side LymphomaPaternal GrandfatherRelationNameStatusCommentsFatherAliveMaternal GrandfatherGrandpaMotherAliveOtherPaternal Grandfather Social History Tobacco UseTypesPacks/DayYears UsedDateSmoking Tobacco: NeverSmokeless Tobacco: Never Tobacco Cessation:Counseling Given: Not Answered Alcohol UseStandard Drinks/WeekCommentsYes2 (1 standard drink = 0.6 oz pure alcohol)Alcohol: 1 or 2 drinks, 2 to 4 times a month; Caffeine: 1 can /weekPHQ-2 AnswerDate RecordedPatient Health Questionnaire-2 Gkwbz613 Estimated Date of FwlzarseFylggsplGpx40/13/2026ased on UltrasoundSex and Gender InformationValueDate RecordedSex Assigned at TwlsuLuaimt10/30/2023 8:23 AM EDT Legal OotJgcqev74/15/2023 7:11 PM EDTGender VjvvsooiWhevhr76/30/2023 8:23 AM EDT Sexual CoylwyvhtpnFmjqfrgy58/30/2023 8:23 AM EDT Last Filed Vital Signs Vital SignReadingTime TakenCommentsBlood Ezrvynja459/8412 9:12 AM EST Oqoyc628502/07/2025 10:32 AM ESTTemperature--Respiratory Ozcm728004/10/2024 10:32 AM ESTOxygen Oowidgncyo94%02/07/2025 10:32 AM ESTInhaled Oxygen Concentration-- Vdzbja298 kg (244 lb)02/13/2025 9:12 AM OGCEtbqqn604 cm (5' 3 )02/07/2025 10:32 AM ESTBody Mass Index43.22104/10/2024 10:32 AM EST Plan of Treatment DateTypeDepartmentCare Team (Latest Contact Info)Siavpvcyhwh06/31/2025 10:40 AM ESTRoutine [facility] [place] [facility] [address] [place] [address] Tess Lopez, FUNCTIONAL ARCHITECT [address] [place] [phone] 07/04/2025 10:10 AM EDTOffice Visit [facility] [place] [facility] [address] [place] [address] Allen Carr MD [address] [place] [address] Procedures Procedure NamePriorityDate/TimeAssociated DiagnosisCommentsUS OB BPP W NON-JKDWDE8102/19/2025 11:27 AM EST US OB FOLLOW UP TRANSABDOMINAL XFEDXSINCtysesn99/22/2025 9:29 AM EST History of hyperthyroidism Macrosomia of fetus affecting management of mother in first trimester, single or unspecified fetus ([facility]) US OB BPP W NON-MKGDQC6402/13/2025 11:39 AM EST POCT URINALYSIS LOWIZWIMFypndbd20/18/2025 9:22 AM EST 31 weeks gestation of ([facility]) [facility] UA (CLEAN/CATCH) NETSUITE DEVELOPER/MICRO IF IND.Kxsnxxr9702/05/2025 11:15 AM EST T4, WRUBLfqgfzn62/04/2025 1:07 PM EST Hypothyroidism, unspecified CCJIrcxeyc23/04/2025 11:17 AM EST Hypothyroidism, unspecified T3, OIOWXgydoba76/04/2025 11:17 AM EST Hypothyroidism, unspecified GLUCOSE TOLERANCE 3 XFUCWaydrzo78/04/2025 9:59 AM EST POCT URINALYSIS VFZYLKZVXxxfxhm18/02/2025 11:47 AM EST 29 weeks gestation of ([facility]) POCT URINALYSIS LHFYSDFDWdtmmtl00/13/2025 11:23 AM EST Second trimester ([facility]) US OB 14+ WEEKS ANATOMY SCAN12/13/2024 10:23 AM EDT IWMDQFPVKTDthbofb17/16/2025 10:08 AM EDT Colposcopy needed after cervical smear Second trimester ([facility]) 22 weeks gestation of ([facility]) POCT URINALYSIS IONSWTMHHxievng68/16/2025 9:30 AM EDT 22 weeks gestation of ([facility]) from Last 3 Months Results * US OB BPP W NON-STRESS (02/19/2025 11:27 AM EST) Only the most recent of2 resultswithin the time period is included. Anatomical RegionLateralityModalityOtherSpecimen (Source)Anatomical Location / LateralityCollection Method / VolumeCollection TimeReceived Time02/19/2025 11:27 AM EST Narrative 02/19/2025 11:29 AM EST [facility] ?[address] ? [place] [id number] ? Ultrasound Report ? Signed ? Patient: YSASI,BRITTNEE S ?MR#: [id number] ?? : 1995 ?Acct:[id number] ?? Age/Sex: 29 / F ?ADM Date: 02/19/25 ?? Loc: US ? Attending Dr: Ivy Baker D.O. ? Ordering Physician: Ivy Baker D.O. ?? Date of Service: 02/19/25 ?? Procedure(s): US OB BPP w non-stress ?? Accession Number(s): [id number] ? cc: Ivy Baker D.O.; Physician,Non-Staff MKalani ? [facility] ? [address] ? [place] [address] ? Patient Name: ?? BRITTNEE SMITH ? MRN: [facility]:[id number] ? date: 1995 ?Sex: F ?? Assigned Patient Location: [facility] ?? Current Patient Location: ? Accession/Order Number: [id number] ?? Exam Date: 02/19/2025 ??10:20 ?Report Date: 02/19/2025 ??11:27 ? At the request of: ?? IVY ??SAMUEL ??DO ? Procedure: ??US OB BPP w non-stress ? BIOPHYSICAL PROFILE: ? CLINICAL INFORMATION: MACROSOMIA O 36.61X0 ? COMPARISON: 02/13/2025 ? There is a single live intrauterine gestation in cephalic presentation. ??The ?? reported gestational age is 32 weeks 5 days. ??The heart rate ?? beats per minute. ? FINDINGS: ? [...] Dictation Location: RADIO-PC-30 ? Electronically authenticated by: [id number] ??Y ?? Date: 02/19/2025 ??11:27 ? Dictated By: ?Alyson,Brandy M.D. ? Signed By: ?02/19/25 1129 ? DD/ 1127 ? TD/TT: ? Geography Professor: Procedure Note Radiology, Radiologist, MD - 02/19/2025 [place] [address] Ultrasound Report Signed Patient: BRITTNEE SMITH [facility]#: [id number] : 1995Acct:[id number] Age/Sex: 29 / FADM Date: 02/19/25 Loc: US Attending Dr: Ivy Baker D.O. Ordering Physician: Ivy Baker D.O. Date of Service: 02/19/25 Procedure(s): US OB BPP w non-stress Accession Number(s): [id number] cc: Ivy Baker D.O.; Physician,Non-Staff [place] [address] Patient Name: BRITTNEE SMITH MRN: [facility]:[id number] date: 1995 Sex: F Assigned Patient Location: [facility] Current Patient Location: Accession/Order Number: [id number] Exam Date: 02/19/2025 10:20 Report Date: 02/19/2025 11:27 At the request of: IVY BAKER DO Procedure: US OB BPP w non-stress BIOPHYSICAL PROFILE: CLINICAL INFORMATION: MACROSOMIA O 36.61X0 COMPARISON: 02/13/2025 There is a single live intrauterine gestation in cephalic presentation.The reported gestational age is 32 weeks 5 days. The heart trgyabpgontq349 beats per minute. FINDINGS: TONE: 1 or more episodes of activity extension and flexion of extremity or opening and closing of the hand [Y] 2/2 GROSS BODY MOVEMENTS: 3 or more discrete body or limb movements [Y] 2/2 BREATHING MOVEMENTS: 1 or more episodes of breathing lastingat least 30 seconds [Y] 2/2 LBANCHE: A single deepest vertical pocket of amniotic fluid greater than 2 cm [Y] 2/2 BLANCHE: 12.7 cm Total score: 8/8 US/US OB BPP w non-stress IMPRESSION: NORMAL BIOPHYSICAL PROFILE Impression dictated by: Brandy Shields M.D. 02/19/2025 11:27 AM Dictation Location: [place] [address] Electronically authenticated by: [id number] Y Date: 1:27 Dictated By: Brandy Shields M.D. Signed By:02/19/25 1129 DD/ 1127 TD/TT: Geography Professor: Authorizing ProviderResult TypeResult StatusCorey Samuel DOCLINISYNC IMAGINGFinal [...] Location / LateralityCollection Method / VolumeCollection TimeReceived WxgaEgmqd42/18/2025 9:22 AM EST Narrative Authorizing ProviderResult TypeResult StatusRussell County Medical Center TEST ENTER/EDIT ORDERABLESFinal Result * (ABNORMAL) [facility] UA (CLEAN/CATCH) NETSUITE DEVELOPER/MICRO IF IND. (02/05/2025 11:15 AM EST) ComponentValueRef [...] AM EDT THIS EXAM WAS PERFORMED AT [facility] NAME: ??LUIS BEAULIEU : 1995 SEX: F Accession Number: [id number] ORDERING PHYSICIAN: FUAD PLASCENCIA REFERRING PHYSICIAN: IVY BAKER Coding Procedures ? 45499: Ultrasound, uterus, real time with image documentation, and maternal evaluation ? plus detailed anatomic examination, transabdominal approach;single or first gestation ? 35855: Ultrasound, uterus, real time with image documentation, [...] view: limited by maternal body habitus. Medical Patternmaker Pressure Cast Patternmaker Pressure Cast declined Wolfe . Number of fetuses: 1 [...] (oz) ? 3 oz EFW by: ?Hadlock (XUY-PV-ZW-FL) Extended Tibia ??36.4 mm 23w 5d 72% Jocelyn Diabetic Educator ? 4.1 mm CM ? 6.0 mm [...] Heart / Thorax RVOT view. LVOT view. 7-fiuqqd-hntccci view. Ductal arch view. Interventricular septum. Great [...] - 12/13/2024 THIS EXAM WAS PERFORMED AT [facility] NAME: LUIS BEAULIEU : 1995 SEX: F Accession Number: [id number] ORDERING PHYSICIAN: FUAD PLASCENCIA REFERRING PHYSICIAN: IVY BAKER Coding Procedures 04786: Ultrasound, uterus, real time with image documentation, and maternal evaluation plus detailed anatomic examination, transabdominalapproach;single or first gestation 19048: Ultrasound, uterus, real time with imagedocumentation, transvaginal [...] Suboptimalview: limited by maternal body habitus. Medical Patternmaker Pressure Cast Patternmaker Pressure Cast declined Wolfe . Number of fetuses: 1 [...] by U/S 22 w + 6 d AGRRETT by U/S: 04/12/2025 Assigned: based on ultrasound [...] EFW (oz) 3 oz EFW by: Hadlock (UKW-FV-SF-FL) Extended Tibia 36.4 mm 23w 5d 72% Jocelyn Diabetic Educator 4.1 mm CM 6.0 mm 60% Nicolaides [...] Heart / Thorax RVOT view. LVOT view. 3-tzziee-vjlzctg view. Ductal archview. Interventricular septum. Great vessels. [...] measures 4.7 cm. Recommendations Please see [facility] documentation from today. Subsequent follow up or other follow up as clinically determined byprimary OB provider unless otherwise specified by [facility]. Results forwarded to ordering provider so they [...]
--- OUTSIDE RECORDS SUMMARY | 2025-02-25 15:03 | XMS_ITS ---
Author Organization [facility] Address [address] [place] [address] Care Team Providers Care Wastewater Treatment Supervisor Name Role Phone Unavailable Primary Care Provider Unavailabl e [facility]aternal [facility] ([facility]) Status:Closed (Closed) Start date:11/11/2024 Enrollment date:11/15/2024 Enrollment reason:Identified by Health Plan End date:02/13/2025 Close reason:Unable to reach patient Continued Care and Services Coordination
--- OUTSIDE RECORDS SUMMARY | 2025-02-25 15:04 | XMS_ITS | Encounter Summary ---
Author Organization [facility] Address [address] [facility] [place] [address] Care Team Providers Care Wet Pour Supervisor Name Role Phone Unavailable Primary Care Provider Unavailabl e Encounter Details DateTypeDepartmentCare Team (Latest Contact Info)Jznpwudupoe45/18/2025linisync Result Encounter [facility] External Department Unsolicited Ivy Baker DO [address] [place] [address] Social History Tobacco UseTypesPacks/DayYears UsedDateSmoking Tobacco: NeverSmokeless Tobacco: NeverAlcohol UseStandard Drinks/WeekCommentsYes2 (1 standard drink = 0.6 oz pure alcohol)Alcohol: 1 or 2 drinks, 2 to 4 times a month; Caffeine: 1 can /weekPHQ-2 AnswerDate RecordedPatient Health Questionnaire-2 Dwzor895 Estimated Date of YpwjmgvjKnysnceaUrq33/13/2026Based on UltrasoundSex and Gender InformationValueDate RecordedSex Assigned at PlmpuBgaqrc76/30/2023 8:23 AM EDT Legal TzwLeatsx08/15/2023 7:11 PM EDTGender NgurhbaiMxhwbv40/30/2023 8:23 AM EDT Sexual LqziguztrvfNfdmocfk32/30/2023 8:23 AM EDTdocumented as of this encounter Plan of Treatment DateTypeDepartmentCare Team (Latest Contact Info)Fimtmkjezir08/31/2025 10:40 AM ESTRoutine [facility] [address] [place] [address] Tess Lopez, PIT LABORER [address] [place] [address] 07/04/2025 10:10 AM EDTOffice Visit [facility] [place] [facility] [address] [place] [address] Allen Carr MD [address] [place] [address] documented as of this encounter Procedures Procedure NamePriorityDate/TimeAssociated DiagnosisCommentsUS OB BPP W NON-USOAHE5202/13/2025 11:39 AM EST documented in this encounter Results * US OB BPP W NON-STRESS (02/13/2025 11:39 AM EST)Anatomical Region LateralityModalityOtherSpecimen (Source)Anatomical Location / Laterality Collection Method / VolumeCollection TimeReceived Time02/13/2025 11:39 AM EST Narrative 02/13/2025 11:41 AM EST [facility] ?[address] ? [place] [address] ? Ultrasound Report ? Signed ? Patient: YSASI,BRITTNEE S ?MR#: [id number] ?? : 1995 ?Acct:[id number] ?? Age/Sex: 29 / F ?ADM Date: 02/13/25 ?? Loc: [facility] ??250-1 ? Attending Dr: Ivy Baker D.O. ? Ordering Physician: Ivy Baker D.O. ?? Date of Service: 02/13/25 ?? Procedure(s): US OB BPP w non-stress ?? Accession Number(s): [id number] ? cc: Ivy Baker D.O.; Physician,Non-Staff M.D. ? [facility] ? [address] ? [place] [address] ? Patient Name: ?? BRITTNEE S YSASI ? MRN: [facility]:[id number] ? date: 1995 ?Sex: F ?? Assigned Patient Location: [facility] ?? Current Patient Location: [facility] ?? Accession/Order Number: [id number] ?? Exam Date: 02/13/2025 ??10:55 ?Report Date: [...] Dictation Location: RADIO-PC-30 ? Electronically authenticated by: [id number] ??Y ?? Date: 02/13/2025 ??11:39 ? Dictated By: ?Brandy Shields M.D. ? Signed By: ?12/18/25 1141 ? DD/ 1139 ? TD/TT: ? Systems Planner: Procedure Note Radiology, Radiologist, MD - 02/13/2025 [place] [address] Ultrasound Report Signed Patient: BRITTNEE SMITH SMR#: [id number] : 1995Acct:[id number] Age/Sex: 29 / FADM Date: 02/13/25 Loc: [facility] 250-[address]: Ivy Baker D.O. Ordering Physician: Ivy Baker D.O. Date of Service: 02/13/25 Procedure(s): US OB BPP w non-stress Accession Number(s): [id number] cc: Ivy Baker D.O.; Physician,Non-Staff MKalani The [address] [address] Patient Name: BRITTNEE SMITH MRN: [facility]:[id number] date: 1995 Sex: F Assigned Patient Location: [facility] Current Patient Location: [facility] Accession/Order Number: [id number] Exam Date: 02/13/2025 10:55 Report Date: 02/13/2025 [...] Shields M.D. 02/13/2025 11:39 AM Dictation Location: [place] [address] Electronically authenticated by: [id number] Y Date: 1:39 Dictated By: Brandy Shields M.D. Signed By:02/13/25 1141 DD/ 1139 TD/TT: Systems Planner: Authorizing ProviderResult TypeResult StatusCorey Samuel DOCLINISYNC IMAGINGFinal Result documented in this encounter Visit Diagnoses Not on filedocumented in this encounter
--- OUTSIDE RECORDS SUMMARY | 2025-02-25 15:04 | XMS_ITS | Clinical Summary ---
Author Organization Voice Assist tem Address [facility] [id number] [address] 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 nqvsma4112/13/2024Estimated Date of DeliveryCommentsYes 6Based on Ultrasound Encounters DateTypeDepartmentCare JzkePnxjkiscjaj19/25/2025 2:00 PM EST - 01/21/2025 11:59 PM ESTHospital [facility]counter [facility] [address] [place] [phone] Hypothyroidism affecting in second trimester Discharge Disposition: Home01/21/20258450Jbhhvi52/17/2025 8:45 AM EDTOffice Visit [facility]aternal- [facility] at [facility] [address] [place] [phone] Kenji Plascencia MD 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) 12/13/2024 7:30 AM EDT - 12/13/2024 11:59 PM EDTHospital Encounter [facility] [address] [place] [phone] Screening, , for anatomic survey Discharge Disposition: Home12/13/2024Orders Only Maternal- Medicine at [facility] [address] [place] [phone] Eun Mcgrath RN Hypothyroidism affecting in second trimester (Primary Dx)12/13/2024 Oasbni1712/12/2024Travelfrom Last 3 Months Family History Medical HistoryRelationNameCommentsHypothyroidismFatherDiabetesMaternal GrandfatherLiver diseaseMaternal GrandfatherDiabetesPaternal GrandfatherLymphoma Paternal GrandfatherRelationNameStatusCommentsFatherAliveMaternal Grandfather DeceasedMotherAlivePaternal Grandfather Social History Tobacco UseTypesPacks/DayYears UsedDateSmoking Tobacco: NeverSmokeless Tobacco: Never Tobacco Cessation:Counseling Given: Not Answered Alcohol UseStandard Drinks/WeekCommentsNot Currently0 (1 standard drink = 0.6 oz pure alcohol)ChildcareAnswerDate HaoqqgzzEwsblhzcwRiymqem60/12/2019Employment AnswerDate WyfhcwkoDmyemlejpdSmqmgwl05/12/2019Hunger ScreeningAnswerDate RecordedWithin the past 12 months we worried whether our food would run out before we got money to buy more.Never True12/13/2024Within the past 12 months the food we bought just didn't last and we didn't have money to get more.Never True12/13/2024Estimated Date of MdkrsuqtBtksfremRxt16/13/2026ased on UltrasoundSex and Gender InformationValueDate RecordedSex Assigned at BirthNot on fileLegal IerYtcqlx22/06/2015 11:49 AM EDTGender IdentityNot on fileSexual OrientationNot on file Last Filed Vital Signs Vital SignReadingTime TakenCommentsBlood Lbvezxua763/7312/13/2024 8:03 AM EDT Bnmmg284212/13/2024 8:03 AM EHOPxarzbtamwp73 ??C (98.6 ??F)10/23/2024 1:18 PM EDT Respiratory Oupr136010/23/2024 2:45 PM EDTOxygen Cfugxzjzwg92%10/23/2024 2:45 PM EDTInhaled Oxygen Concentration--Qeapzk232.8 kg (235 lb 6.4 oz)12/13/2024 8:03 AM OAFZfpjmp467.6 cm (5' 4.02 )12/13/2024 8:03 AM EDTBody Mass Index40.39 12/13/2024 8:03 AM EDT Plan of Treatment Health MaintenanceDue DateLast DoneCommentsDepression Fxyfdokfd56/01/2006dult BMI Follow Up Plan2011DTaP,Tdap and Td Vaccines (2 - Td or Tdap)08/05/2015 08/04/2005Influenza Jglurvb2010/28/2024RSV ( or age 60+ yrs) (1 - Risk 1-dose series)02/14/2025dult BMI Imbmkleup53Tobacco Dzgiajnlk95Pap Smear Medical Devices Not on file Procedures Procedure NamePriorityDate/TimeAssociated DiagnosisCommentsUS MFM OB FOLLOW-UP, 1 VDXQQNozdjcb82/25/2025 3:08 PM EST Hypothyroidism affecting in second trimester US MFM COMPREHENSIVE ANATOMIC XSIRSPZyzxuwm28/17/2025 8:50 AM EDT Screening, , for anatomic [...] BEAULIEU : 1995 SEX: F Accession Number: [id number] ORDERING PHYSICIAN: KENJI PLASCENCIA REFERRING PHYSICIAN: IVY RUVALCABA ADDENDUM updated recommendations Coding Procedures ? 04749: Ultrasound, uterus, real time with image documentation, [...] (oz) ? 6 oz EFW by: ?Hadlock (S[facility]-MW-JN-FL) Extended Tibia ??51.5 mm 30w 5d 96% Jocelyn Dispatcher Maintenance ? 2.8 mm Nasal bone ? 7.7 [...] Thorax RVOT view. LVOT view. 3-vessel view. 5-vijspe-uilhyna view. Interventricular septum.Great vessels. ? Cardiac position. [...] with clinical findings and diabetesscreen. Please see [facility] recommendations from prior clinical and/or ultrasound [...] BEAULIEU : 1995 SEX: F Accession Number: [id number] ORDERING PHYSICIAN: KENJI PLASCENCIA REFERRING PHYSICIAN: IVY RUVALCABA ADDENDUM updated recommendations Coding Procedures 06823: Ultrasound, uterus, real time with image documentation, [...] EFW (oz) 6 oz EFW by: Hadlock (SPM-TD-SV-FL) Extended Tibia 51.5 mm 30w 5d 96% Jocelyn Dispatcher Maintenance 2.8 mm Nasal bone 7.7 mm 5% [...] Thorax RVOT view. LVOT view. 3-vessel view. 2-wjixjz-kretxir view. Interventricular septum. Great vessels. Cardiac position. [...] MemberRelationshipSpecialtyStart DateEnd Date No Pcp, [place] [address] PCP - GeneralFamily Medicine10/23/24
--- OUTSIDE RECORDS SUMMARY | 2025-02-25 15:04 | XMS_ITS | Patient Health Record ---
Author Organization [employer] [facility] vices Address [address], [place] [id number] Care Team Providers Care Automobile Service Writer Name Role Phone Lance Santos Unavailable [phone] Allergies Allergen (clinical drug ingredient) Drug/Non Drug Allergy documented on EMR Reaction Allergy Type Onset Date Status PediazoleUnknownDrug Yvaxtwr8507/19/2011ctiveSubstance with sulfonamide structure and antibacterial mechanism of action (substance)Sulfa AntibioticsUnknownDrug Inmjgjh1207/19/2011ctive Reason For Referral No Information Immunizations Vaccine Route Administration Date Status Comme nts *Tdap (Adacel)-VFC IM Intramuscular 08/04/2005 Administered Status:Complete ,Reason:Given or N/A , leatha (08/04/2005) 20 minute check done no reaction 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[employer] Parent/Guardian: present Social History Sex Assigned [...] Status Risk Notes Problem 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, 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 confirmed ProblemAcute streptococcal pharyngitis (1140981354)Acute streptococcal pharyngitis (J02.0)Activeconfirmed Comment:rapid strep positive 10 days abx F/U 2 weeks EMPHASIZED THE NEED TO COMPLETE ALL 10 DAYS,Description:Streptococcal sore throat ProblemAsthma (110921350)Asthma (J45.909)02/18/2000ActiveconfirmedProblemHealth supervision of healthy or child receiving care (V20.1) (V20.1)Active confirmedProblemAllergic rhinitis (23322270)Allergic rhinitis (J30.9)02/18/2000 ActiveconfirmedProblemHistory and physical examination, administrative (37785544)General medical examination for administrative purposes (V70.3) (V70.3)08/04/2005ctiveconfirmedProblemDermatitis, atopic (691.) (691)08/04/2005 ActiveconfirmedProblemAcute pharyngitis (245042597)Acute pharyngitis (J02.9) 09/10/2009ctiveconfirmedProblemAcute bronchitis (disorder) (38166239) Bronchitis, acute (466.0) (466.0)ActiveconfirmedProblemWell child visit (621291341)Routine or child health check (V20.2) (V20.2)08/30/2007ctive confirmedProblemAcute sinusitis (31932806)Acute infection of nasal sinus (J01.90)Problem resolvedconfirmedComment:advised to take her zyrtec 10mg po daily- states that she has zyrtec at home,Description:Acute sinusitis Plan Of Treatment No Information Insurance Providers Payer Name Payer Address Payer Phone Subscriber Number Group Number Insured Name Patient Relationship to Insured Coverage Start Date Coverage End Date [employer] [facility] [address] [address] [place] [address] [id number] Lars Mathur - patient is the [id number] 2022Medicaid CF after [address] [place], [place] [id number], [employer] - patient is the insured 2022 Medical (General) History Medical History History ICD Code 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
--- OUTSIDE RECORDS SUMMARY | 2025-02-25 15:04 | XMS_ITS | Data Portability ---
Author Organization [place] [facility] Address [address] [place] [address] Care Team Providers Care Transcribing Operators Supervisor Name Role Phone CAROLCHEYENNEJarekROSS Primary Care Provider [...] and has been discussed with the patient. [email or web address] Not available 02/15/2018 15:13:09 Plan of Treatment Reminders Order DateSubmit DateProviderLast Modified ByOrganization DetailsLast Modified TimeDetailsAppointmentsNone recorded.LabNone recorded.ReferralNone recorded. ProceduresNone recorded.SurgeriesNone recorded.ImagingNone recorded.Medication OrdersNone recorded. Patient TargetsNo targets recorded. Patient InstructionsNo instructions recorded. Reason for Referral None Reported. Results Created Date Observation Date Name Description Value Unit Range Abnormal Flag Note LastModifiedBy Organization Detail LastModifiedTime 03/12/2018 US, echocardiogramNo observation recorded.dzjhgx1Mzi Ghjcdxngg44/14/2019 13:49:52 Result Notes None recorded. Medical Equipment None Reported. Allergies Allergen ID Allergen Name Allergen Category Reaction Reaction Severity Criticality Documentation Date Start Date Code Code System Note Provider Name and Address Organization Details Recorded Time 813 Substance with sulfo namide structure and antibacterial mechanism of action (substance) medication Not available Not available Not mgfwrahge25/15/3591663880778OAXXAVRsxyaij Vasiliy ascencio [place] [facility] Ymukxyzmeeb19/15/2019 15:19:33 Medications Name Sig Start Date Stop [...] Address Organization Details Last Updated DateTime 9 18152.4 g 36 kg/m2 162.56 cm 16 /min 94 /min 98 % 112/60 mm[Hg] [facility] 9 15:19:18 Social History Question Answer Notes LastModified by Organization D etails LastModified Time Tobacco Smoking Status Never Smoker [place], [place] - [facility] Ledepvjcyyf14/15/2019 15:21:12Marital StatusSingle vsaoybqy67Mzyamszpjbd not badmktzdj15/15/2019What Was The Date Of Your Most Recent [...] Note 77 Mini Gipson MD Main Office [address] [place] [address] 01/30/2018 10:52:38 01/30/2018 15:49:20 Electrocardiogram abnormal 054698987 R94.31 2002JAjit Giraldoin Office [address] [facility] [facility] [address] [place] [address] 03/13/2018 15:10:10003/13/2018 15:47:46Systolic qvasqf99578945K51.1 Echo 01/30/18 - EF of 65-70%, trace MVR, trace MUXEzyjczitxtfcxm04706368T43.9 Thyroid function and medication management per PCP/endocrinology.Palpitations 57035487H76.2 Event monitor shows episodes of tachycardia, however [...] Guarantor Name 07/31/2018 1 [employer] (PP[employer]) [id number] Munir Mathur [id number] [facility] 12/05/2022 2 [facility] (MEDICAID REPLACEMENT - HMO) [id number] [facility] [id number] [facility] [employer] [employer] ([facility])Munir [id number] Ysasi Notes Date Note Type Note Provider Name and Address Orga nization Details Recorded Time 01/30/2018 text/html Patient presents today with a history of abnormal EKG results. Patient is . Associated Symptoms: chest pain. dizziness. fainting. palpitations. shortness of breath. weakness. fatigue.Mini Gipson MD [address] [facility], [place], [address], [facility] Zfzyheujuns34/26/2018 14:34:text/html Patient is a 23 year old female with a past medical history of palpitations and hypothyroid who presents to the office for test results. Denies any chest pain, palpitations, shortness of breath, edema, n/v/d, fever/chills, headaches, dizziness, fatigue or bowel/urinary complaints.SRIKANTH Cook - [facility] Jaqrjukmhxh82/15/2019 15:49:42 OBGyn Episode No OBEpisode recorded.
--- OUTSIDE RECORDS SUMMARY | 2025-02-25 15:04 | XMS_ITS | Patient Health Record ---
Author Organization [facility] Address [address] [place] [address] Care Team Providers Care Hotel Lobby Concierge Name Role Phone emmy schultz Unavailable [phone] Allergies Allergen (clinical drug ingredient) Drug/Non Drug [...] Status W/U Status Risk Notes Problem Obesity (908820002) Obesity (BMI 35.0-39. 9 without comorbidity) (E66.9) Activeconfirmed Plan Of Treatment Pending Test Test Name Order Date X ray : Spines, lumbosacral 08/14/2018 URINE RAPID TEST 08/14/2018 CMP Comprehensive Metabolic Panel w/ eGF R (14606) [facility] 08/14/2018 Lipid Panel w/ Reflex to Direct LDL (148 52) [facility] 08/14/2018 Vitamin D, 25-Hydroxy, Total, Immunoassa y (47248) - [facility] 08/14/2018 HEMOGLOBIN A1c (496) [facility] 08/14/2018 UA Urinalysis Complete (6750) [facility] 07/28 CBC (includes Differential and Platelets ) (5999) [facility] 08/14/2018 TSH and FREE T4 (21203) [facility] 08/14/2018 Insurance Providers Payer Name Payer Address Payer Phone Subscriber Number Group Number Insured Name Patient Relationship to Insured Coverage Start Date Coverage End Date [employer] [facility] PPO/POS/HMO XPRESS [address] [place] [address] [id number] Lars Mathur - patient is the insured Medical (General) History Medical History History ICD Code high blood pressure THYROID DISORDERSurgical History Surgery Date(Month/Year) right hand surgery 10/11 Hospitalization History Reason Date(Month/Year) broken hand 09/10 induced 05/17/18
[2025-02-25 15:38] VITALS: BP 108/64; PULSE 90
== END 2025-02-25 15:40 | disposition home or self-care (01) ==
LOC: FBCO 15:01 → FBC 15:02
PROVIDERS: Visit Provider Obstetrics & Gynecology
DX: O24.419 Gestational diabetes mellitus in pregnancy, unspecified control (principal); Z3A.33 33 weeks gestation of pregnancy
CPT/HCPCS: 59025